=== PATIENT | female | born 1970 | race Hispanic/Latino ===

== ENCOUNTER 2023-05-05 00:06 | Inpatient (IN) | payer SELFPAY ==
--- OUTSIDE RECORDS SUMMARY | 2023-05-05 00:48 | XMS REPORT | Continuity of Care Document ---
:[address] [facility] t Address [address] [place] [address] Care Team Providers Name Role Phone Sima Ramos Primary Care Physician SCOTT RUSSELL Attending Clinician Unavailable SCOTT RUSSELL Attending Clinician Unavailable KALINA BROOKS Attending Clinician Unavailable SYSTEM, PROVIDER NOT IN Attending Clinician Unavailable DOM BATES Attending Clinician Unavailable SIMA LLOYD Attending Clinician Unavailable TRACY GRIJALVA Attending Clinician Unavailable JESSICA GRUBER Attending Clinician Unavailable Terence Esteves MD Attending Clinician LOPEZ JENSEN Attending Clinician Unavailable Sima Ramos Attending Clinician Lab, Ang - Db Attending Clinician Unavailable SANDRA DAVE Attending Clinician Unavailable Sandra Dave MD Attending Clinician ARSEN MEDEIROS Attending Clinician Unavailable Dom Bates MD Attending Clinician MARK GUZMAN Attending Clinician Unavailable Tracy Grijalva MD Attending Clinician Doctor Unassigned, [place] Attending Clinician Unavailable Mark Guzman MD Attending Clinician Maggi Head MD Attending Clinician MAGGI HEAD Attending Clinician Unavailable Arsen Medeiros PA-C Attending Clinician Ruy JARQUIN, Benny Attending Clinician KENDRA HERNANDEZ Attending Clinician Unavailable Abdulkadir SINGER BACK TENDER, Kendra Attending Clinician NOEL KRISHNAMURTHY Attending Clinician Unavailable Noel Krishnamurthy MD Attending Clinician Vadim CATALAN, Brandy Pulido Attending Clinician Unavailable Josette CATALAN, Genevieve Harmon Attending Clinician Unavailable OGUNLANA, MARIAN A Attending Clinician Unavailable Magnsu DAWN, Cecile Austin Attending Clinician Dennis JARQUIN, Ayala Attending Clinician ART GARCIA Attending Clinician Unavailable Tim JARQUIN, Maggie Farrell Attending Clinician ELINA SORENSEN Attending Clinician Unavailable Edu LEALP, Elina Tilley Attending Clinician , Adc Lab Attending Clinician Unavailable Art Garcia MD Attending Clinician LOGAN WILKINS Attending Clinician Unavailable Jill Marroquin Attending Clinician JILL BARRETT Attending Clinician Unavailable DEMARCUS BEAUCHAMP Attending Clinician Unavailable DUDLEY WADDELL Attending Clinician Unavailable Kavita JARQUIN, Dudley Attending Clinician Bhavana JARQUIN, Blaise Attending Clinician Aminah JARQUIN PhD, Demetris Attending Clinician Po, Adc Lab Main Attending Clinician Unavailable BENNY REDDING Attending Clinician Unavailable Anna DPAkash, Marian A Attending Clinician [phone] ELY SAXENA Attending Clinician Unavailable Hemanth JARQUIN, Ely Attending Clinician KRISSY GRIFFIN Attending Clinician Unavailable Krissy Griffin DO Attending Clinician Yasmani JARQUIN, Jessica Attending Clinician MARYAM FAULKNER Attending Clinician Unavailable PASCALE DE LA ROSA Attending Clinician Unavailable Visit, [facility] Dermatology Nurse Attending Clinician Unavailable Pascale De La Rosa MD Attending Clinician Oni JARQUIN, aTvo Attending Clinician TAVO BUNN Attending Clinician Unavailable Scott Russell MD Attending Clinician 1, Jania [employer] Attending Clinician Unavailable Vinicio GIRALDO, Mary Harmon Attending Clinician MARY GONZALEZ Attending Clinician Unavailable s-Lab Attending Clinician Unavailable RUSSELL PAEZ Attending Clinician Unavailable Mendoza CATALAN, Katie Bustos Attending Clinician Unavailable [facility]-Lab Attending Clinician Unavailable Lucie JUAREZ, Maryam Attending Clinician Ashwin Rowe DO Attending Clinician Kalina Brooks MD Att[facility]ician [facility] Attending Clinician Unavailable Sofiya Horner RN Attending Clinician Unavailable Amparo Emery MD Attending Clinician Hdr, correction Rad Oncology Attending Clinician Unavailable 1, correction Rad Oncology Linac Attending Clinician Unavailable 4, [facility] Infusion Chair Attending Clinician Unavailable 2, [facility] Infusion Chair Attending Clinician Unavailable 3, [facility] Infusion Chair Attending Clinician Unavailable 6, [facility] Infusion Chair Attending Clinician Unavailable Sameer Winter MD Attending Clinician ANDRIA LINARES Attending Clinician Unavailable Andria Ma Attending Clinician Graham Carter MD Attending Clinician Nurse, [facility] Infusion Attending Clinician Unavailable Patrick Medrano MD Attending Clinician Physics, correction Rad Onc Attending Clinician Unavailable Pgy2 Attending Clinician Unavailable Sylwia Nolasco MD Attending Clinician SYLWIA NOLASCO Attending Clinician Unavailable Stephanie Yousif Attending Clinician Toni Rouse MD Attending Clinician TONI ROUSE Attending Clinician Unavailable Trimester, [facility]-Rmchp Res-1st Attending Clinician Unavailable Renu Rollins MD Attending Clinician [phone] [facility] Resident Attending Clinician Unavailable Kyle MD, Lissa Attending Clinician LISSA KYLE Attending Clinician Unavailable KOBI FRENCH Attending Clinician Unavailable Kimberly Billingsley DO Attending Clinician JAD TOMPKINS Attending Clinician Unavailable Jad Hylton Attending Clinician Cydney Martinez NP Attending Clinician SCOTT RUSSELL Admitting Clinician Unavailable KALINA BROOKS Admitting Clinician Unavailable TRACY GRIJALVA Admitting Clinician Unavailable Tracy Grijalva MD Admitting Clinician SANDRA DAVE Admitting Clinician Unavailable AYALA COLLINS Admitting Clinician Unavailable Ayala Collins MD Admitting Clinician ELINA SORENSEN Admitting Clinician Unavailable DEMARCUS BEAUCHAMP Admitting Clinician Unavailable DUDLEY WADDELL Admitting Clinician Unavailable Dudley Waddell MD Admitting Clinician MARIAN CASTILLO Admitting Clinician Unavailable ART BARRY Admitting Clinician Unavailable ELY SAXENA Admitting Clinician Unavailable [place] Saxena MD Admitting Clinician JESSICA GRUBER Admitting Clinician Unavailable ARSEN MEDEIROS Admitting Clinician Unavailable Scott Russell MD Admitting Clinician Kalina Brooks MD Admitting Clinician Sylwia Nolasco MD Admitting Clinician Payers Payer Name Policy Type Policy Number Effective Date Expiration Date [facility] [id number] 2021 CHOICE 00:00:00 MEDICAID PENDING PENDING 2021 00:00:[address] [facility] CASEBOOK [id number] 2021 2021 00:00:00 00:00:00 Problems Condition Condition Condition Status Onset Resolution Last Treating Co mments Source Name Details Category Date Date Treatment Clinician Date Necrotizin Necrotizin Disease Active Overview : Univers g g 4-03 Formattin ity of fasciitis fasciitis 00:00: [place] of this [place] 00 note Medical might be Branch different from the original. Added automatic ally from request for surgery [id number] Dehiscence Dehiscence Disease Active U nivers of of 2-15 [place] of [place] 00 Medical subsequent subsequent Br anch encounter encounter Venous Venous Disease Active Univers stasis stasis 1-10 it[place] of dermatitis [place]itis [place] of both of both 00 Medical lower lower Branch extremitie extremitie s s Wound Wound Disease Active Univers infection infection 1-10 ity of 00:00: [place] [facility] Surgical Surgical Disease Active Unive rs wound wound 1-10 ity of breakdown[place], [place] initial initial 00 Medical encounter encounter Bran ch Edema of Edema of Disease Active Unive rs both lower both lower 1-10 it y of legs legs 00:00: [place] [facility] Ganglion Ganglion Disease Active 2021-08 Overview: Un gwendolyn cyst cyst 1-17 Formattin ity of 00:00: g of this [place] 00 note Medical might be Branch different from the original. Added automatic ally from request for surgery [id number] Functional Functional Disease Active 2021-08 U nivers diarrhea diarrhea 1-11 ity of 00:00: [place] [facility] Radiation Radiation Disease Active 2021-08 Uni vers proctitis proctitis 1-11 ity of 00:00: [place] [facility] Syncope, Syncope, Disease Active 2020-08 Unive rs vasovagal vasovagal 0-14 ity of 00:00: [place] [facility] History of History of Disease Active U nivers claustroph claustroph 9-30 it y of obia obia 00:00: [place] [facility] Multiple Multiple Disease Active Unive rs subsegment subsegment 7-14 it y of al al 00:00: [place] pulmonary pulmonary 00 Medi kia emboli emboli Branch without without acute cor acute cor pulmonale pulmonale Refusal of Refusal of Disease Active U nivers blood blood 7-02 ity of transfusio transfusio 00:[place] ns as ns as 00 Medical patient is patient is Br anch [employer] Witness Thyroid Thyroid Disease Active Univers nodule nodule 02-23 ity of 00:00: [place] 00 Medical Branch Physical Physical Disease Active Unive rs deconditio deconditio 02-23 it y of delisa delisa 00:00: [place] [facility] 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 Active Uni vers neoplastic neoplastic 02-23 it y of disease disease 00:00: [place] [facility] DNR (do DNR (do Disease Active Univers not not 02-23 ity of resuscitat resuscitat 00:[place] e) e) 00 Medical discussion discussion Br anch Morbid Morbid Disease Active Univers obesity obesity 02-20 ity of with body with body 00:[place] mass index mass index 00 Me dical of of Branch 40.0-49.9 40.0-49.9 Type 2 Type 2 Disease Active Univers diabetes diabetes 02-19 ity of mellitus mellitus 00:00: [place] without without 00 Medical complicati complicati Br anch on, on, without without long-term long-term current current use of use of insulin insulin Endometria Endometria Disease Active Overview : Univers l cancer l cancer 02-19 Formattin ity of 00:00: g of this 00 note Medical might be Branch different from the original. 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 Iron Iron Disease Active Univers deficiency deficiency 02-19 it y of anemia due anemia due 00:00: [place] to chronic to chronic 00 Me dical blood loss blood loss Br anch Obesity Obesity Disease Active Univers (BMI (BMI 6-24 ity of 30-39.9) 30-39.9) 00:00: [place] 00 Medical Branch Allergies, Adverse Reactions, Alerts Allergy Allergy Status Severity Reaction(s) Onset Inactive Treating Comm ents Source Name Type Date Date Clinician ADHESIVE DRUG Active Other-Cmnt Univ ers TAPE-DARCY 8-25 ity of ICONES 00:00: [place] [id number] Medical Branch Adhesive Propensi Active Other - See Skin U nivers Tape-Darcy ty to comments 8-25 peels ity of icones adverse 00:00: with [place] reaction 00 plastic Medical s tape Branch Social History Social Habit Start Date Stop Date Quantity Comments Source Gender identity [facility] [place] [facility] Sexual orientation [facility] [place] [facility] History SDOH University o f Alcohol Std Drinks [place] [facility] History SDOH University o f Alcohol Binge [place] [facility] History SDOH Social Unive rsity of Connections Get [place] Med ical Together Branch History SDOH Social Unive rsity of Connections Restorationism [place] [facility] History SDOH Social Unive rsity of Connections [place] [facility] Membership Branch History SDOH Social Unive rsity of Connections [place] [facility] Meetings Branch Alcohol intake 2023-04-05 2023-04-05 Lifetime University of 00:00:00 00:00:00 non-drinker [place] [facility] (finding) Branch History of Social 2023-03-02 2023-03-02 Univers ity of function 00:00:00 00:00:00 [place] [facility] Exposure to 2023-01-10 2023-01-20 Not sure University of SARS-CoV-2 (event) 00:00:00 12:53:00 [place] [facility] History SDOH 2022-11-30 2022-11-30 1 University o f Alcohol Frequency 00:00:00 00:00:00 [place] M edical Branch History SDOH Social 2022-11-30 2022-11-30 5 Unive rsity of Connections Phone 00:00:00 00:00:00 [place] M edical Branch History SDOH Social 2022-11-30 2022-11-30 7 Unive rsity of Connections Living 00:00:00 00:00:00 [place] [facility] History SDOH 2022-11-30 2022-11-30 0 University o f Physical Activity 00:00:00 00:00:00 [place] M edical DPW Branch History SDOH 2022-11-30 2022-11-30 0 University o f Physical Activity 00:00:00 00:00:00 [place] M edical MPS Branch History SDOH 2022-11-30 2022-11-30 4 University o f Financial 00:00:00 00:00:00 [place] [facility] History SDOH Food 2022-11-30 2022-11-30 1 Univers ity of Worry 00:00:00 00:00:00 [place] [facility] History SDOH Food 2022-11-30 2022-11-30 1 Univers ity of Scarcity 00:00:00 00:00:00 [place] [facility] History SDOH 2022-11-30 2022-11-30 2 University o f Transport Med 00:00:00 00:00:00 [place] [facility] al [facility] History SDOH 2022-11-30 2022-11-30 2 University o f Transport Non-Med 00:00:00 00:00:00 [place] M edical [facility] Tobacco use and 2021-02-19 2021-02-19 Smokeless Universit y of exposure 00:00:00 00:00:00 tobacco non-user [facility] dical [place] Sex [birth year] Universit y of 00:00:00 00:00:00 [facility] Smoking Status Start Date Stop Date Source Never smoked tobacco [facility] Medications Ordered Filled Start Stop Current Ordering Indication Dosage Frequency Signature Comments Components Source Medication Medication Date Date Medication? Clinician (SIG) Name Name CHLORTHALID Yes [id number] 25mg TAKE 1 Univers ONE 25 mg 8-25 TABLET BY ity o f tablet 00:00: MOUTH IN [place] 00 THE Medical MORNING Branch dulaglutide Yes [id number] .75mg inject 1 Univers (TRULICITY) 8-10 Pen under ity of 0.75 mg/0.5 00:00: the skin [place] mL PnIj 00 weekly. Medical Branch dulaglutide Yes [id number] .75mg inject 1 Univers (TRULICITY) 8-10 Pen under ity of 0.75 mg/0.5 00:00: the skin [place] mL PnIj 00 weekly. Medical Branch insulin Yes [id number] 23U inject 23 Univers glargine 8-08 Units ity of 100 unit/mL 00:00: under the [place] injection 00 skin in Medical the Branch morning. insulin Yes [id number] 5U inject 5 U nivers lispro, 8-08 Units ity of human, 100 00:00: under the [place] unit/mL 00 skin in Medical injection the Branch morning and 5 Units at noon and 5 Units in the evening. inject with meals. metFORMIN Yes [id number] 1000mg Take 1 Univers 1,000 mg 8-08 tablet by ity of tablet 00:00: mouth in [place] the morning. [place] insulin 2022-0 Yes [id number] 23U inject 23 Univers glargine 8-08 Units ity of 100 unit/mL 00:00: under the [place] injection 00 skin in [facility] morning. insulin 2022-0 Yes [id number] 5U inject 5 U nivers lispro, 8-08 Units ity of human, 100 00:00: under the [place] unit/mL 00 skin in Medical injection the [place] morning and 5 Units at noon and 5 Units in the evening. inject with meals. metFORMIN 2022-0 Yes [id number] 1000mg Take 1 Univers 1,000 mg 8-08 tablet by ity of tablet 00:00: mouth in [place] the morning. [place] insulin 2022-0 Yes [id number] 23U inject 23 Univers glargine 8-08 Units ity of 100 unit/mL 00:00: under the [place] injection 00 skin in [facility] morning. insulin 2022-0 Yes [id number] 5U inject 5 U nivers lispro, 8-08 Units ity of human, 100 00:00: under the [place] unit/mL [address] [facility] the [place] morning and 5 Units at noon and 5 Units in the evening. inject with meals. metFORMIN 2022-0 Yes [id number] 1000mg Take 1 Univers 1,000 mg 8-08 tablet by ity of tablet 00:00: mouth in [place] the morning. [place] insulin 2022-0 Yes [id number] 23U inject 23 Univers glargine 8-08 Units ity of 100 unit/mL 00:00: under the [place] injection 00 skin in [facility] morning. insulin 2022-0 Yes [id number] 5U inject 5 U nivers lispro, 8-08 Units ity of human, 100 00:00: under the [place] unit/mL [address] [facility] the [place] morning and 5 Units at noon and 5 Units in the evening. inject with meals. metFORMIN 2022-0 Yes [id number] 1000mg Take 1 Univers 1,000 mg 8-08 tablet by ity of tablet 00:00: mouth in [place] the morning. Branch insulin 2022-0 Yes [id number] 23U inject 23 Univers glargine 8-08 Units ity of 100 unit/mL 00:00: under the [place] injection 00 skin in Medical the [place] morning. insulin 2022-0 Yes [id number] 5U inject 5 U nivers lispro, 8-08 Units ity of human, 100 00:00: under the [place] unit/mL 00 skin in Medical injection the [place] morning and 5 Units at noon and 5 Units in the evening. inject with meals. metFORMIN 2022-0 Yes [id number] 1000mg Take 1 Univers 1,000 mg 8-08 tablet by ity of tablet 00:00: mouth in [place] the morning. Branch insulin 2022-0 Yes [id number] 23U inject 23 Univers glargine 8-08 Units ity of 100 unit/mL 00:00: under the [place] injection 00 skin in [facility] the [place] morning. insulin 2022-0 Yes [id number] 5U inject 5 U nivers lispro, 8-08 Units ity of human, 100 00:00: under the [place] unit/mL 00 skin in Medical injection the [place] morning and 5 Units at noon and 5 Units in the evening. inject with meals. metFORMIN 2022-0 Yes [id number] 1000mg Take 1 Univers 1,000 mg 8-08 tablet by ity of tablet 00:00: mouth in [place] the morning. [place] insulin 2022-0 Yes [id number] 23U inject 23 Univers glargine 8-08 Units ity of 100 unit/mL 00:00: under the [place] injection 00 skin in [facility] morning. insulin 2022-0 Yes [id number] 5U inject 5 U nivers lispro, 8-08 Units ity of human, 100 00:00: under the [place] unit/mL 00 skin in Medical injection the [place] morning and 5 Units at noon and 5 Units in the evening. inject with meals. metFORMIN 2022-0 Yes [id number] 1000mg Take 1 Univers 1,000 mg 8-08 tablet by ity of tablet 00:00: mouth in [place] 00 the [facility] morning. [place] insulin 2022-0 Yes [id number] 23U inject 23 Univers glargine 8-08 Units ity of 100 unit/mL 00:00: under the [place] injection 00 skin in Medical the [place] morning. insulin Yes [id number] 5U inject 5 U nivers lispro, 8-08 Units ity of human, 100 00:00: under the [place] unit/mL 00 skin in Medical injection the [place] morning and 5 Units at noon and 5 Units in the evening. inject with meals. metFORMIN 2022- Yes [id number] 1000mg Take 1 Univers 1,000 mg 8-08 tablet by ity of tablet 00:00: mouth in [place] 00 the Medical morning. Branch cholecalcif Yes 1{capsu Take 1 U nivers gayle, 7-27 le} capsule by ity of vitamin D3, 13:52: mouth [place] (VITAMIN 57 daily. Medical D3) 100 mcg Branch (4,000 unit) Cap fish Yes 2{capsu Take 2 Univers oil/borage/ 7-27 le} capsules ity of flax/om3,6, 13:52: by mouth [place] 9 1 (OMEGA 57 daily. Medical 3--9 ORAL) Branch cholecalcif Yes 1{capsu Take 1 U nivers gayle, 7-27 le} capsule by ity of vitamin D3, 13:52: mouth [place] (VITAMIN 57 daily. Medical D3) 100 mcg Branch (4,000 unit) Cap fish 0 Yes 2{capsu Take 2 Univers oil/borage/ 7-27 le} capsules ity of flax/om3,6, 13:52: by mouth [place] 9 1 (OMEGA 57 daily. Medical 3--9 ORAL) Branch cholecalcif Yes 1{capsu Take 1 U nivers gayle, 7-27 le} capsule by ity of vitamin D3, 13:52: mouth [place] (VITAMIN 57 daily. Medical D3) 100 mcg Branch (4,000 unit) Cap fish 0 Yes 2{capsu Take 2 Univers oil/borage/ 7-27 le} capsules ity of flax/om3,6, 13:52: by mouth [place] 9 1 (OMEGA 57 daily. Medical 3-6-9 ORAL) Branch cholecalcif 0 Yes 1{capsu Take 1 U nivers gayle, 7-27 le} capsule by ity of vitamin D3, 13:52: mouth [place] (VITAMIN 57 daily. Medical D3) 100 mcg Branch (4,000 unit) Cap fish 0 Yes 2{capsu Take 2 Univers oil/borage/ 7-27 le} capsules ity of flax/om3,6, 13:52: by mouth [place] 9 1 (OMEGA 57 daily. Medical 3-6-9 ORAL) Branch cholecalcif 0 Yes 1{capsu Take 1 U nivers gayle, 7-27 le} capsule by ity of vitamin D3, 13:52: mouth [place] (VITAMIN 57 daily. Medical D3) 100 mcg Branch (4,000 unit) Cap fish 0 Yes 2{capsu Take 2 Univers oil/borage/ 7-27 le} capsules ity of flax/om3,6, 13:52: by mouth [place] 9 1 (OMEGA 57 daily. Medical 3-6-9 ORAL) Branch cholecalcif 0 Yes 1{capsu Take 1 U nivers gayle, 7-27 le} capsule by ity of vitamin D3, 13:52: mouth [place] (VITAMIN 57 daily. Medical D3) 100 mcg Branch (4,000 unit) Cap fish 0 Yes 2{capsu Take 2 Univers oil/borage/ 7-27 le} capsules ity of flax/om3,6, 13:52: by mouth [place] 9 1 (OMEGA 57 daily. Medical 3-6-9 ORAL) Branch cholecalcif 0 Yes 1{capsu Take 1 U nivers gayle, 7-27 le} capsule by ity of vitamin D3, 13:52: mouth [place] (VITAMIN 57 daily. Medical D3) 100 mcg Branch (4,000 unit) Cap fish 0 Yes 2{capsu Take 2 Univers oil/borage/ 7-27 le} capsules ity of flax/om3,6, 13:52: by mouth [place] 9 1 (OMEGA 57 daily. Medical 3-6-9 ORAL) Branch cholecalcif 0 Yes 1{capsu Take 1 U nivers gayle, 7-27 le} capsule by ity of vitamin D3, 13:52: mouth [place] (VITAMIN 57 daily. Medical D3) 100 mcg Branch (4,000 unit) Cap fish 2023-0 Yes 2{capsu Take 2 Univers oil/borage/ 27 le} capsules ity of flax/om3,6, 13:52: by mouth [place] 9 1 (OMEGA 57 daily. Medical 3-9 ORAL) Branch cholecalcif Yes 1{capsu Take 1 U nivers gayle, 03-24 le} capsule by ity of vitamin D3, 13:52: mouth [place] (VITAMIN 57 daily. Medical D3) 100 mcg Branch (4,000 unit) Cap fish Yes 2{capsu Take 2 Univers oil/borage/ 03-24 le} capsules ity of flax/om3,6, 13:52: by mouth [place] 9 1 (OMEGA 57 daily. Medical 11-01- ORAL) Branch doxazosin Yes [id number] 1mg Take 1 Univers mg tablet 7-06 tablet by ity o f 00:00: mouth at [place] 00 bedtime. Medical Branch semaglutide Yes [id number] .5mg inject 0.5 Univers (OZEMPIC) 7-06 mg under ity of 0.25 mg or 00:00: the skin [place] as 0.5 mg(2 00 weekly. Medical mg/1.5 mL) Branch PnIj doxazosin 1 Yes [id number] 1mg Take 1 Univers mg tablet 7-06 tablet by ity o f 00:00: mouth at [place] [address] bedtime. Medical Branch semaglutide Yes [id number] .5mg inject 0.5 Univers (OZEMPIC) 7-06 mg under ity of 0.25 mg or 00:00: the skin [place] as 0.5 mg(2 00 weekly. Medical mg/1.5 mL) Branch PnIj doxazosin 1 Yes [id number] 1mg Take 1 Univers mg tablet 7-06 tablet by ity o f 00:00: mouth at [place] 00 bedtime. Medical Branch semaglutide Yes [id number] .5mg inject 0.5 Univers (OZEMPIC) 7-06 mg under ity of 0.25 mg or 00:00: the skin [place] as 0.5 mg(2 00 weekly. Medical mg/1.5 mL) Branch PnIj doxazosin 1 Yes [id number] 1mg Take 1 Univers mg tablet 7-06 tablet by ity o f 00:00: mouth at [place] 00 bedtime. Medical Branch semaglutide Yes [id number] .5mg inject 0.5 Univers (OZEMPIC) 7-06 mg under ity of 0.25 mg or 00:00: the skin [place] as 0.5 mg(2 00 weekly. Medical mg/1.5 mL) Branch PnIj doxazosin 1 Yes [id number] 1mg Take 1 Univers mg tablet 7-06 tablet by ity o f 00:00: mouth at [place] 00 bedtime. Medical Branch semaglutide Yes [id number] .5mg inject 0.5 Univers (OZEMPIC) 7-06 mg under ity of 0.25 mg or 00:00: the skin [place] as 0.5 mg(2 00 weekly. Medical mg/1.5 mL) Branch MakiIj doxazosin 1 Yes [id number] 1mg Take 1 Univers mg tablet 7-06 tablet by ity o f 00:00: mouth at [place] 00 bedtime. Medical Branch semaglutide Yes [id number] .5mg inject 0.5 Univers (OZEMPIC) 7-06 mg under ity of 0.25 mg or 00:00: the skin [place] as 0.5 mg(2 00 weekly. Medical mg/1.5 mL) Branch MakiIj doxazosin 1 Yes [id number] 1mg Take 1 Univers mg tablet 7-06 tablet by ity o f 00:00: mouth at [place] 00 bedtime. Medical Branch semaglutide Yes [id number] .5mg inject 0.5 Univers (OZEMPIC) 7-06 mg under ity of 0.25 mg or 00:00: the skin [place] as 0.5 mg(2 00 weekly. Medical mg/1.5 mL) Branch PnIj doxazosin 1 Yes [id number] 1mg Take 1 Univers mg tablet 7-06 tablet by ity o f 00:00: mouth at [place] 00 bedtime. Medical Branch semaglutide Yes [id number] .5mg inject 0.5 Univers (OZEMPIC) 7-06 mg under ity of 0.25 mg or 00:00: the skin [place] as 0.5 mg(2 00 weekly. Medical mg/1.5 mL) Branch PnIj doxazosin 1 Yes [id number] 1mg Take 1 Univers mg tablet 7-06 tablet by ity o f 00:00: mouth at [place] 00 bedtime. Medical Branch doxazosin 1 2022-0 Yes [id number] 1mg Take 1 Univers mg tablet 7-06 tablet by ity o f 00:00: mouth at [place] 00 bedtime. Medical Branch doxazosin 1 2022-0 Yes [id number] 1mg Take 1 Univers mg tablet 7-06 tablet by ity o f 00:00: mouth at [place] 00 bedtime. Medical Branch doxazosin 1 Yes [id number] 1mg Take 1 Univers mg tablet 7-06 tablet by ity o f 00:00: mouth at [place] [address] bedtime. Medical Branch doxazosin 1 Yes [id number] 1mg Take 1 [facility] mg tablet 7-06 tablet by ity o f 00:00: mouth at [place] [address] bedtime. Medical Branch doxazosin 1 Yes [id number] 1mg Take 1 [facility] mg tablet 7-06 tablet by ity o f 00:00: mouth at [place] [address] bedtime. Medical Branch doxazosin 1 2022-0 Yes [id number] 1mg Take 1 [facility] mg tablet 7-06 tablet by ity o f 00:00: mouth at [place] [address] bedtime. Medical Branch doxazosin 1 Yes [id number] 1mg Take 1 [facility] mg tablet 7-06 tablet by ity o f 00:00: mouth at [place] [address] bedtime. Medical Branch semaglutide 2022- No [id number] .5mg inject 0.5 [facility] (OZEMPIC) 7- 08-08 mg under ity o f 0.25 mg or 00:00: 00:00 the skin [place] 0.5 mg(2 00 :00 weekly. Medical mg/1.5 mL) Branch PnIj semaglutide 2022- No [id number] .5mg inject 0.5 [facility] (OZEMPIC) 7- 08-08 mg under ity o f 0.25 mg or 00:00: 00:00 the skin [place] 0.5 mg(2 00 :00 weekly. Medical mg/1.5 mL) Branch PnIj NaCl 0.9% 2022- No PRN, [facility] (NS) 03-02 Starting ity of injection 17:55: 18:37 on Tue [place] 00 :30 03/02/23 at Medical 1255, Branch Until Tue03/02/23 at 1337, Routine, Intra-op simethicone 2022- No PRN, Unive rs (GAS RELIEF 03-02 Starting ity of (SIMETHICON 16:38: 18:37 on Tue [place] as E)) 40 00 :30 03/02/23 at Medical mg/0.6 mL 1138, Branch drops Until Tue03/02/23 at 1337, Routine, Intra-op lactated 2022- No 1000mL at 42 [facility] rs ringers IV 03-02 07-05 mL/hr, ity of infusion 16:30: 16:30 1,000 mL, [place] as 1,000 mL 00 :00 IV Medical Infusion, Branch ONCE, 1 dose, On Tue03/02/23 at 1130, Routine, DSU Pre-op lactated 2022-0 2022- No 1000mL at 42 [facility] rs ringers IV 03-02 07-05 mL/hr, ity of infusion 16:30: 16:30 1,000 mL, [place] as 1,000 mL 00 :00 IV Medical Infusion, Branch ONCE, 1 dose, On Tue03/02/23 at 1130, Routine, DSU Pre-op cholecalcif Yes 1{capsu Take 1 U nivers gayle, 7-05 le} capsule by ity of vitamin D3, 16:29: mouth [place] (VITAMIN 48 daily. Medical D3) 100 mcg Branch (4,000 unit) Cap fish Yes 2{capsu Take 2 [facility] oil/borage/ 7-05 le} capsules ity of flax/om3,6, 16:29: by mouth [place] 9 1 (OMEGA 48 daily. Medical 3-6-9 ORAL) Branch cholecalcif Yes 1{capsu Take 1 U nivers gayle, 7-05 le} capsule by ity of vitamin D3, 16:29: mouth [place] (VITAMIN 48 daily. Medical D3) 100 mcg Branch (4,000 unit) Cap fish Yes 2{capsu Take 2 [facility] oil/borage/ 7-05 le} capsules ity of flax/om3,6, 16:29: by mouth [place] 9 1 (OMEGA 48 daily. Medical 3-6-9 ORAL) Branch cholecalcif Yes 1{capsu Take 1 U nivers gayle, 7-05 le} capsule by ity of vitamin D3, 16:29: mouth [place] (VITAMIN 48 daily. Medical D3) 100 mcg Branch (4,000 unit) Cap fish Yes 2{capsu Take 2 [facility] oil/borage/ 7-05 le} capsules ity of flax/om3,6, 16:29: by mouth [place] 9 1 (OMEGA 48 daily. Medical 3-6-9 ORAL) Branch cholecalcif Yes 1{capsu Take 1 U nivers gayle, 7-05 le} capsule by ity of vitamin D3, 16:29: mouth [place] (VITAMIN 48 daily. Medical D3) 100 mcg Branch (4,000 unit) Cap fish Yes 2{capsu Take 2 [facility] oil/borage/ 7-05 le} capsules ity of flax/om3,6, 16:29: by mouth [place] 9 1 (OMEGA 48 daily. Medical 3-6-9 ORAL) Branch cholecalcif Yes 1{capsu Take 1 U nivers gayle, 7-05 le} capsule by ity of vitamin D3, 16:29: mouth [place] (VITAMIN 48 daily. Medical D3) 100 mcg Branch (4,000 unit) Cap fish Yes 2{capsu Take 2 [facility] oil/borage/ 7-05 le} capsules ity of flax/om3,6, 16:29: by mouth [place] 9 1 (OMEGA 48 daily. Medical 3-6-9 ORAL) Branch cholecalcif 0 Yes 1{capsu Take 1 U nivers gayle, 7-05 le} capsule by ity of vitamin D3, 16:29: mouth [place] (VITAMIN 48 daily. Medical D3) 100 mcg Branch (4,000 unit) Cap fish 0 Yes 2{capsu Take 2 [facility] oil/borage/ 7-05 le} capsules ity of flax/om3,6, 16:29: by mouth [place] 9 1 (OMEGA 48 daily. Medical 3-6-9 ORAL) Branch cholecalcif 2022-0 Yes 1{capsu Take 1 U nivers gayle, 7-05 le} capsule by ity of vitamin D3, 16:29: mouth [place] (VITAMIN 48 daily. Medical D3) 100 mcg Branch (4,000 unit) Cap fish 2022-0 Yes 2{capsu Take 2 [facility] oil/borage/ 7-05 le} capsules ity of flax/om3,6, 16:29: by mouth [place] 9 1 (OMEGA 48 daily. Medical 3-6-9 ORAL) Branch cholecalcif 2022-0 Yes 1{capsu Take 1 U nivers gayle, 7-05 le} capsule by ity of vitamin D3, 16:29: mouth [place] (VITAMIN 48 daily. Medical D3) 100 mcg Branch (4,000 unit) Cap fish 2022-0 Yes 2{capsu Take 2 [facility] oil/borage/ 7-05 le} capsules ity of flax/om3,6, 16:29: by mouth [place] 9 1 (OMEGA 48 daily. Medical 3-6-9 ORAL) Branch cholecalcif 2022-0 Yes 1{capsu Take 1 U nivers gayle, 7-05 le} capsule by ity of vitamin D3, 16:29: mouth [place] (VITAMIN 48 daily. Medical D3) 100 mcg Branch (4,000 unit) Cap fish 2022-0 Yes 2{capsu Take 2 [facility] oil/borage/ 7-05 le} capsules ity of flax/om3,6, 16:29: by mouth [place] 9 1 (OMEGA 48 daily. Medical 3-6-9 ORAL) Branch cholecalcif 2022-0 Yes 1{capsu Take 1 U nivers gayle, 7-05 le} capsule by ity of vitamin D3, 16:29: mouth [place] (VITAMIN 48 daily. Medical D3) 100 mcg Branch (4,000 unit) Cap fish 2022-0 Yes 2{capsu Take 2 [facility] oil/borage/ 7-05 le} capsules ity of flax/om3,6, 16:29: by mouth [place] 9 1 (OMEGA 48 daily. Medical 3-6-9 ORAL) Branch cholecalcif 2022-0 Yes 1{capsu Take 1 U nivers gayle, 7-05 le} capsule by ity of vitamin D3, 16:29: mouth [place] (VITAMIN 48 daily. Medical D3) 100 mcg Branch (4,000 unit) Cap fish 2022-0 Yes 2{capsu Take 2 [facility] oil/borage/ 7-05 le} capsules ity of flax/om3,6, 16:29: by mouth [place] 9 1 (OMEGA 48 daily. Medical 3-6-9 ORAL) Branch cholecalcif 2022-0 Yes 1{capsu Take 1 U nivers gayle, 6-28 le} capsule by ity of vitamin D3, 12:52: mouth [place] (VITAMIN 40 daily. Medical D3) 100 mcg Branch (4,000 unit) Cap fish 2022-0 Yes 2{capsu Take 2 [facility] oil/borage/ 6-28 le} capsules ity of flax/om3,6, 12:52: by mouth [place] 9 1 (OMEGA 40 daily. Medical 3-9 ORAL) Branch nystatin 3-0 Yes [id number] Apply to U nivers 100,000 6-08 area(s) 2 ity of unit/gram 00:00: (two) [place] powder 00 times Medical daily. Branch nystatin 2023-0 Yes [id number] Apply to U nivers 100,000 6-08 area(s) 2 ity of unit/gram 00:00: (two) [place] powder 00 times Medical daily. Branch nystatin 2023-0 Yes [id number] Apply to U nivers 100,000 6-08 area(s) 2 ity of unit/gram 00:00: (two) [place] powder 00 times Medical daily. Branch nystatin 2023-0 Yes [id number] Apply to U nivers 100,000 6-08 area(s) 2 ity of unit/gram 00:00: (two) [place] powder 00 times Medical daily. Branch nystatin 2023-0 Yes [id number] Apply to U nivers 100,000 6-08 area(s) 2 ity of unit/gram 00:00: (two) [place] powder 00 times Medical daily. Branch nystatin 2023-0 Yes [id number] Apply to U nivers 100,000 6-08 area(s) 2 ity of unit/gram 00:00: (two) [place] powder 00 times Medical daily. Branch nystatin 2023-0 Yes [id number] Apply to U nivers 100,000 6-08 area(s) 2 ity of unit/gram 00:00: (two) [place] powder 00 times Medical daily. Branch nystatin 2023-0 Yes [id number] Apply to U nivers 100,000 6-08 area(s) 2 ity of unit/gram 00:00: (two) [place] powder 00 times Medical daily. Branch nystatin 2023-0 Yes [id number] Apply to U nivers 100,000 6-08 area(s) 2 ity of unit/gram 00:00: (two) [place] powder 00 times Medical daily. Branch nystatin 2023-0 Yes [id number] Apply to U nivers 100,000 6-08 area(s) 2 ity of unit/gram 00:00: (two) [place] powder 00 times Medical daily. Branch nystatin 2023-0 Yes [id number] Apply to U nivers 100,000 6-08 area(s) 2 ity of unit/gram 00:00: (two) [place] powder 00 times Medical daily. Branch nystatin 2023-0 Yes [id number] Apply to U nivers 100,000 6-08 area(s) 2 ity of unit/gram 00:00: (two) [place] powder 00 times Medical daily. Branch nystatin 2023-0 Yes [id number] Apply to U nivers 100,000 6-08 area(s) 2 ity of unit/gram 00:00: (two) [place] powder 00 times Medical daily. Branch nystatin 2023-0 Yes [id number] Apply to U nivers 100,000 6-08 area(s) 2 ity of unit/gram 00:00: (two) [place] powder 00 times Medical daily. Branch nystatin 2023-0 Yes [id number] Apply to U nivers 100,000 6-08 area(s) 2 ity of unit/gram 00:00: (two) [place] powder 00 times Medical daily. Branch nystatin 2023-0 Yes [id number] Apply to U nivers 100,000 6-08 area(s) 2 ity of unit/gram 00:00: (two) [place] powder 00 times Medical daily. Branch nystatin 2023-0 Yes [id number] Apply to U nivers 100,000 6-08 area(s) 2 ity of unit/gram 00:00: (two) [place] powder 00 times Medical daily. Branch nystatin 2023-0 Yes [id number] Apply to U nivers 100,000 6-08 area(s) 2 ity of unit/gram 00:00: (two) [place] powder 00 times Medical daily. Branch nystatin 2023-0 Yes [id number] Apply to U nivers 100,000 6-08 area(s) 2 ity of unit/gram 00:00: (two) [place] powder 00 times Medical daily. Branch nystatin 2023-0 Yes [id number] Apply to U nivers 100,000 6-08 area(s) 2 ity of unit/gram 00:00: (two) [place] powder 00 times Medical daily. Branch nystatin 2023-0 Yes [id number] Apply to U nivers 100,000 6-08 area(s) 2 ity of unit/gram 00:00: (two) [place] powder 00 times Medical daily. Branch nystatin 2023-0 Yes [id number] Apply to U nivers 100,000 6-08 area(s) 2 ity of unit/gram 00:00: (two) [place] powder 00 times Medical daily. Branch nystatin 2023-0 Yes [id number] Apply to U nivers 100,000 6-08 area(s) 2 ity of unit/gram 00:00: (two) [place] powder 00 times Medical daily. Branch nystatin 2023-0 Yes [id number] Apply to U nivers 100,000 6-08 area(s) 2 ity of unit/gram 00:00: (two) [place] powder 00 times Medical daily. Branch nystatin 2023-0 Yes [id number] Apply to U nivers 100,000 6-08 area(s) 2 ity of unit/gram 00:00: (two) [place] powder 00 times Medical daily. Branch bromphenira 2023-0 Yes [id number] 5mL Take 5 mL [facility] mine-pseudo 5-31 by mouth 4 it y of ephedrine-D 00:00: (four) [place]ust[place] (BROMFED 00 times Medical DM) 2-30-10 daily as Bran ch mg/5 mL needed for syrup Congestion /Allergies or Cough. bromphenira 2023-0 Yes [id number] 5mL Take 5 mL [facility] mine-pseudo 5-31 by mouth 4 it y of ephedrine-D 00:00: (four) [place] (BROMFED 00 times Medical DM) 2-30-10 daily as Bran ch mg/5 mL needed for syrup Congestion /Allergies or Cough. bromphenira 2023-0 Yes [id number] 5mL Take 5 mL [facility] mine-pseudo 5-31 by mouth 4 it y of ephedrine-D 00:00: (four) [place] M (BROMFED 00 times Medical DM) 2-30-10 daily as Bran ch mg/5 mL needed for syrup Congestion /Allergies or Cough. bromphenira 3-0 Yes [id number] 5mL Take 5 mL [facility] mine-pseudo 5-31 by mouth 4 it y of ephedrine-D 00:00: (four) [place] M (BROMFED 00 times Medical DM) 2-30-10 daily as Bran ch mg/5 mL needed for syrup Congestion /Allergies or Cough. bromphenira 3-0 Yes [id number] 5mL Take 5 mL [facility] mine-pseudo 5-31 by mouth 4 it y of ephedrine-D 00:00: (four) [place] (BROMFED 00 times Medical DM) 2-30-10 daily as Bran ch mg/5 mL needed for syrup Congestion /Allergies or Cough. bromphenira 2023-0 Yes [id number] 5mL Take 5 mL [facility] mine-pseudo 5-31 by mouth 4 it y of ephedrine-D 00:00: (four) [place] (BROMFED 00 times Medical DM) 2-30-10 daily as Bran ch mg/5 mL needed for syrup Congestion /Allergies or Cough. bromphenira 2023-0 Yes [id number] 5mL Take 5 mL [facility] mine-pseudo 5-31 by mouth 4 it y of ephedrine-D 00:00: (four) [place] M (BROMFED 00 times Medical DM) 2-30-10 daily as Bran ch mg/5 mL needed for syrup Congestion /Allergies or Cough. bromphenira 2023-0 Yes [id number] 5mL Take 5 mL [facility] mine-pseudo 5-31 by mouth 4 it y of ephedrine-D 00:00: (four) [place] M (BROMFED 00 times Medical DM) 2-30-10 daily as Bran ch mg/5 mL needed for syrup Congestion /Allergies or Cough. bromphenira 3-0 Yes [id number] 5mL Take 5 mL [facility] mine-pseudo 5-31 by mouth 4 it y of ephedrine-D 00:00: (four) [place] M (BROMFED 00 times Medical DM) 2-30-10 daily as Bran ch mg/5 mL needed for syrup Congestion /Allergies or Cough. bromphenira 2023-0 Yes [id number] 5mL Take 5 mL [facility] mine-pseudo 5-31 by mouth 4 it y of ephedrine-D 00:00: (four) [place] M (BROMFED 00 times Medical DM) 2-30-10 daily as Bran ch mg/5 mL needed for syrup Congestion /Allergies or Cough. bromphenira 3-0 Yes [id number] 5mL Take 5 mL [facility] mine-pseudo 5-31 by mouth 4 it y of ephedrine-D 00:00: (four) [place] M (BROMFED 00 times Medical DM) 2-30-10 daily as Bran ch mg/5 mL needed for syrup Congestion /Allergies or Cough. bromphenira 3-0 Yes [id number] 5mL Take 5 mL [facility] mine-pseudo 5-31 by mouth 4 it y of ephedrine-D 00:00: (four) [place] M (BROMFED 00 times Medical DM) 2-30-10 daily as Bran ch mg/5 mL needed for syrup Congestion /Allergies or Cough. bromphenira 2023-0 Yes [id number] 5mL Take 5 mL [facility] mine-pseudo 5-31 by mouth 4 it y of ephedrine-D 00:00: (four) [place] M (BROMFED 00 times Medical DM) 2-30-10 daily as Bran ch mg/5 mL needed for syrup Congestion /Allergies or Cough. bromphenira 2023-0 Yes [id number] 5mL Take 5 mL [facility] mine-pseudo 5-31 by mouth 4 it y of ephedrine-D 00:00: (four) [place] M (BROMFED 00 times Medical DM) 2-30-10 daily as Bran ch mg/5 mL needed for syrup Congestion /Allergies or Cough. bromphenira 2023-0 Yes [id number] 5mL Take 5 mL [facility] mine-pseudo 5-31 by mouth 4 it y of ephedrine-D 00:00: (four) [place] M (BROMFED 00 times Medical DM) 2-30-10 daily as Bran ch mg/5 mL needed for syrup Congestion /Allergies or Cough. bromphenira 2023-0 Yes [id number] 5mL Take 5 mL [facility] mine-pseudo 5-31 by mouth 4 it y of ephedrine-D 00:00: (four) [place] M (BROMFED 00 times Medical DM) 2-30-10 daily as Bran ch mg/5 mL needed for syrup Congestion /Allergies or Cough. bromphenira 2023-0 Yes [id number] 5mL Take 5 mL [facility] mine-pseudo 5-31 by mouth 4 it y of ephedrine-D 00:00: (four) [place] (BROMFED 00 times Medical DM) 2-30-10 daily as Bran ch mg/5 mL needed for syrup Congestion /Allergies or Cough. bromphenira 2023-0 Yes [id number] 5mL Take 5 mL [facility] mine-pseudo 5-31 by mouth 4 it y of ephedrine-D 00:00: (four) [place] M (BROMFED 00 times Medical DM) 2-30-10 daily as Bran ch mg/5 mL needed for syrup Congestion /Allergies or Cough. bromphenira 2023-0 Yes [id number] 5mL Take 5 mL [facility] mine-pseudo 5-31 by mouth 4 it y of ephedrine-D 00:00: (four) [place] M (BROMFED 00 times Medical DM) 2-30-10 daily as Bran ch mg/5 mL needed for syrup Congestion /Allergies or Cough. bromphenira 2023-0 Yes [id number] 5mL Take 5 mL [facility] mine-pseudo 5-31 by mouth 4 it y of ephedrine-D 00:00: (four) [place] M (BROMFED 00 times Medical DM) 2-30-10 daily as Bran ch mg/5 mL needed for syrup Congestion /Allergies or Cough. bromphenira 2023-0 Yes [id number] 5mL Take 5 mL [facility] mine-pseudo 5-31 by mouth 4 it y of ephedrine-D 00:00: (four) [place] (BROMFED 00 times Medical DM) 2-30-10 daily as Bran ch mg/5 mL needed for syrup Congestion /Allergies or Cough. bromphenira 2023-0 Yes [id number] 5mL Take 5 mL [facility] mine-pseudo 5-31 by mouth 4 it y of ephedrine-D 00:00: (four) [place] (BROMFED 00 times Medical DM) 2-30-10 daily as Bran ch mg/5 mL needed for syrup Congestion /Allergies or Cough. bromphenira 2023-0 Yes [id number] 5mL Take 5 mL [facility] mine-pseudo 5-31 by mouth 4 it y of ephedrine-D 00:00: (four) [place] (BROMFED 00 times Medical DM) 2-30-10 daily as Bran ch mg/5 mL needed for syrup Congestion /Allergies or Cough. bromphenira 2023-0 Yes [id number] 5mL Take 5 mL [facility] mine-pseudo 5-31 by mouth 4 it y of ephedrine-D 00:00: (four) [place] (BROMFED 00 times Medical DM) 2-30-10 daily as Bran ch mg/5 mL needed for syrup Congestion /Allergies or Cough. bromphenira 2023-0 Yes [id number] 5mL Take 5 mL [facility] mine-pseudo 5-31 by mouth 4 it y of ephedrine-D 00:00: (four) [place] (BROMFED 00 times Medical DM) 2-30-10 daily as Bran ch mg/5 mL needed for syrup Congestion /Allergies or Cough. bromphenira 2023-0 Yes [id number] 5mL Take 5 mL [facility] mine-pseudo 5-31 by mouth 4 it y of ephedrine-D 00:00: (four) [place] (BROMFED 00 times Medical DM) 2-30-10 daily as Bran ch mg/5 mL needed for syrup Congestion /Allergies or Cough. semaglutide 2022-0 Yes [id number] .25mg inject [facility] (OZEMPIC) 5-18 0.25 mg ity of 0.25 mg or 00:00: under the [place] 0.5 mg(2 00 skin Medical mg/1.5 mL) weekly. Branch PnIj semaglutide 2022-0 Yes [id number] .25mg inject [facility] (OZEMPIC) 5-18 0.25 mg ity of 0.25 mg or 00:00: under the [place] 0.5 mg(2 00 skin Medical mg/1.5 mL) weekly. Branch PnIj semaglutide 2022-0 Yes [id number] .25mg inject [facility] (OZEMPIC) 5-18 0.25 mg ity of 0.25 mg or 00:00: under the [place] 0.5 mg(2 00 skin Medical mg/1.5 mL) weekly. Branch PnIj semaglutide 2022-0 Yes [id number] .25mg inject [facility] (OZEMPIC) 5-18 0.25 mg ity of 0.25 mg or 00:00: under the [place] 0.5 mg(2 00 skin Medical mg/1.5 mL) weekly. Branch PnIj semaglutide 2022-0 Yes [id number] .25mg inject [facility] (OZEMPIC) 5-18 0.25 mg ity of 0.25 mg or 00:00: under the [place] 0.5 mg(2 00 skin Medical mg/1.5 mL) weekly. Branch PnIj semaglutide 2022-0 Yes [id number] .25mg inject [facility] (OZEMPIC) 5-18 0.25 mg ity of 0.25 mg or 00:00: under the [place] 0.5 mg(2 00 skin Medical mg/1.5 mL) weekly. Branch PnIj semaglutide 2022-0 Yes [id number] .25mg inject [facility] (OZEMPIC) 5-18 0.25 mg ity of 0.25 mg or 00:00: under the [place] 0.5 mg(2 00 skin Medical mg/1.5 mL) weekly. Branch PnIj semaglutide 2022-0 Yes [id number] .25mg inject [facility] (OZEMPIC) 5-18 0.25 mg ity of 0.25 mg or 00:00: under the [place] 0.5 mg(2 00 skin Medical mg/1.5 mL) weekly. Branch PnIj semaglutide 2022-0 Yes [id number] .25mg inject [facility] (OZEMPIC) 5-18 0.25 mg ity of 0.25 mg or 00:00: under the [place] 0.5 mg(2 00 skin Medical mg/1.5 mL) weekly. Branch PnIj semaglutide 2022-0 Yes [id number] .25mg inject [facility] (OZEMPIC) 5-18 0.25 mg ity of 0.25 mg or 00:00: under the [place] 0.5 mg(2 00 skin Medical mg/1.5 mL) weekly. Branch PnIj semaglutide 2022-0 Yes [id number] .25mg inject [facility] (OZEMPIC) 5-18 0.25 mg ity of 0.25 mg or 00:00: under the [place] 0.5 mg(2 00 skin Medical mg/1.5 mL) weekly. Branch PnIj semaglutide 2022-0 Yes [id number] .25mg inject [facility] (OZEMPIC) 5-18 0.25 mg ity of 0.25 mg or 00:00: under the [place] 0.5 mg(2 00 skin Medical mg/1.5 mL) weekly. Branch PnIj semaglutide 2022-0 Yes [id number] .25mg inject [facility] (OZEMPIC) 5-18 0.25 mg ity of 0.25 mg or 00:00: under the [place] 0.5 mg(2 00 skin Medical mg/1.5 mL) weekly. Branch PnIj semaglutide 2022-0 Yes [id number] .25mg inject [facility] (OZEMPIC) 5-18 0.25 mg ity of 0.25 mg or 00:00: under the [place] 0.5 mg(2 00 skin Medical mg/1.5 mL) weekly. Branch PnIj semaglutide 2022-0 Yes [id number] .25mg inject [facility] (OZEMPIC) 5-18 0.25 mg ity of 0.25 mg or 00:00: under the [place] 0.5 mg(2 00 skin Medical mg/1.5 mL) weekly. Branch PnIj semaglutide 2022-0 2022- No [id number] .25mg inject [facility] (OZEMPIC) 5-18 07-06 0.25 mg ity of 0.25 mg or 00:00: 00:00 under the [place] 0.5 mg(2 00 :00 skin Medical mg/1.5 mL) weekly. Branch MakiIj semaglutide 2022- No [id number] .25mg inject [facility] (OZEMPIC) 5-18 07-06 0.25 mg ity of 0.25 mg or 00:00: 00:00 under the [place] 0.5 mg(2 00 :00 skin Medical mg/1.5 mL) weekly. Branch PnIj albuterol 2022- No [id number] 2{puff} Inhale 2 [facility] (VENTOLIN 5-18 06-18 Puffs ity of HFA) 90 00:00: 04:59 every 6 [place] mcg/actuati 00 :00 (six) Medical on inhaler hours as Branc h needed for Chest tightness for up to 30 days. albuterol 2022- No [id number] 2{puff} Inhale 2 [facility] (VENTOLIN 5-18 06-18 Puffs ity of HFA) 90 00:00: 04:59 every 6 [place] mcg/actuati 00 :00 (six) Medical on inhaler hours as Branc h needed for Chest tightness for up to 30 days. albuterol 2022- No [id number] 2{puff} Inhale 2 [facility] (VENTOLIN 5-18 06-18 Puffs ity of HFA) 90 00:00: 04:59 every 6 [place] mcg/actuati 00 :00 (six) Medical on inhaler hours as Branc h needed for Chest tightness for up to 30 days. albuterol 2022- No [id number] 2{puff} Inhale 2 [facility] (VENTOLIN 5-18 06-18 Puffs ity of HFA) 90 00:00: 04:59 every 6 [place] mcg/actuati 00 :00 (six) Medical on inhaler hours as Branc h needed for Chest tightness for up to 30 days. albuterol 2022- No [id number] 2{puff} Inhale 2 [facility] (VENTOLIN 5-18 06-18 Puffs ity of HFA) 90 00:00: 04:59 every 6 [place] mcg/actuati 00 :00 (six) Medical on inhaler hours as Branc h needed for Chest tightness for up to 30 days. albuterol 2022- No [id number] 2{puff} Inhale 2 [facility] (VENTOLIN 5-18 06-18 Puffs ity of HFA) 90 00:00: 04:59 every 6 [place] mcg/actuati 00 :00 (six) Medical on inhaler hours as Branc h needed for Chest tightness for up to 30 days. albuterol 2022- No [id number] 2{puff} Inhale 2 [facility] (VENTOLIN 5-18 06-18 Puffs ity of HFA) 90 00:00: 04:59 every 6 [place] mcg/actuati 00 :00 (six) Medical on inhaler hours as Branc h needed for Chest tightness for up to 30 days. albuterol 2022- No [id number] 2{puff} Inhale 2 [facility] (VENTOLIN 5-18 06-18 Puffs ity of HFA) 90 00:00: 04:59 every 6 [place] mcg/actuati 00 :00 (six) Medical on inhaler hours as Branc h needed for Chest tightness for up to 30 days. albuterol 2022- No [id number] 2{puff} Inhale 2 [facility] (VENTOLIN 5-18 06-18 Puffs ity of HFA) 90 00:00: 04:59 every 6 [place] mcg/actuati 00 :00 (six) Medical on inhaler hours as Branc h needed for Chest tightness for up to 30 days. bromphenira 2022- No [id number] 5mL Take 5 mL [facility] mine-pseudo 5-18 -29 by mouth 4 i ty of ephedrine-D 00:: 04:59 (four) [place] M (BROMFED 00 :00 times Medical DM) 2-30-10 daily as Bran ch mg/5 mL needed for syrup Congestion /Allergies or Cough for up to 10 days. bromphenira 2022-0 2022- No [id number] 5mL Take 5 mL [facility] mine-pseudo 5-18 05-29 by mouth 4 i ty of ephedrine-D 00:00: 04:59 (four) [place] M (BROMFED 00 :00 times Medical DM) 2-30-10 daily as [place] ch mg/5 mL needed for syrup Congestion /Allergies or Cough for up to 10 days. bromphenira 2022022- No [id number] 5mL Take 5 mL [facility] mine-pseudo 5-18 05-29 by mouth 4 i ty of ephedrine-D 00:00: 04:59 (four) [place] M (BROMFED 00 :00 times Medical DM) 2-30-10 daily as Bran ch mg/5 mL needed for syrup Congestion /Allergies or Cough for up to 10 days. bromphenira 2022-0 2022- No [id number] 5mL Take 5 mL [facility] mine-pseudo 5-18 05-29 by mouth 4 i ty of ephedrine-D 00:00: 04:59 (four) [place] M (BROMFED 00 :00 times Medical DM) 2-30-10 daily as Bran ch mg/5 mL needed for syrup Congestion /Allergies or Cough for up to 10 days. bromphenira 0 2022- No [id number] 5mL Take 5 mL [facility] mine-pseudo 5-18 05-29 by mouth 4 i ty of ephedrine-D 00:00: 04:59 (four) [place] M (BROMFED 00 :00 times Medical DM) 2-30-10 daily as Bran ch mg/5 mL needed for syrup Congestion /Allergies or Cough for up to 10 days. azithromyci 2022-2022- No [id number] 250mg Take 1 [facility] n 250 mg 5-18 05-25 tablet by ity o f tablet 00:00: 04:59 mouth in [place] 00 :00 [facility] for 6 days. Take 500 mg day 1, then 250 mg days 2 to 5. azithromyci 2022-2022- No [id number] 250mg Take 1 [facility] n 250 mg 5-18 05-25 tablet by ity o f tablet 00:00: 04:59 mouth in [place] 00 :00 [facility] morning [place] for 6 days. Take 500 mg day 1, then 250 mg days 2 to 5. azithromyci 2022-0 2022- No [id number] 250mg Take 1 [facility] 250 mg 5-18 05-25 tablet by ity o f tablet 00:00: 04:59 mouth in [place] 00 :00 [facility] for 6 days. Take 500 mg day 1, then 250 mg days 2 to 5. triamcinolo Yes 1{dose} Apply 1 [facility] ne 0.025 % 5-15 Dose to ity of cream 00:00: area(s) as [place] 00 needed. [facility] Yes 1{dose} Apply 1 [facility] ne 0.025 % 5-15 Dose to ity of cream 00:00: area(s) as [place] 00 needed. [facility] Yes 1{dose} Apply 1 [facility] ne 0.025 % 5-15 Dose to ity of cream 00:00: area(s) as [place] 00 needed. [facility] Yes 1{dose} Apply 1 [facility] ne 0.025 % 5-15 Dose to ity of cream 00:00: area(s) as [place] 00 needed. [facility] Yes 1{dose} Apply 1 [facility] ne 0.025 % 5-15 Dose to ity of cream 00:00: area(s) as [place] 00 needed. [facility] Yes 1{dose} Apply 1 [facility] ne 0.025 % 5-15 Dose to ity of cream 00:00: area(s) as [place] 00 needed. [facility] Yes 1{dose} Apply 1 [facility] ne 0.025 % 5-15 Dose to ity of cream 00:00: area(s) as [place] 00 needed. [facility] Yes 1{dose} Apply 1 [facility] ne 0.025 % 5-15 Dose to ity of cream 00:00: area(s) as [place] 00 needed. [facility] Yes 1{dose} Apply 1 [facility] ne 0.025 % 5-15 Dose to ity of cream 00:00: area(s) as [place] 00 needed. [facility] Yes 1{dose} Apply 1 [facility] ne 0.025 % 5-15 Dose to ity of cream 00:00: area(s) as [place] 00 needed. Medical Branch [facility] Yes 1{dose} Apply 1 [facility] ne 0.025 % 5-15 Dose to ity of cream 00:00: area(s) as [place] 00 needed. Medical Branch [facility] Yes 1{dose} Apply 1 [facility] ne 0.025 % 5-15 Dose to ity of cream 00:00: area(s) as [place] 00 needed. Medical Branch tricinolo 2022-0 Yes 1{dose} Apply 1 [facility] ne 0.025 % 5-15 Dose to ity of cream 00:00: area(s) as [place] 00 needed. Medical Branch triamcinolo 2022-0 Yes 1{dose} Apply 1 [facility] ne 0.025 % 5-15 Dose to ity of cream 00:00: area(s) as [place] 00 needed. Medical Branch tricinolo 2022-0 Yes 1{dose} Apply 1 [facility] ne 0.025 % 5-15 Dose to ity of cream 00:00: area(s) as [place] 00 needed. [facility] Yes 1{dose} Apply 1 [facility] ne 0.025 % 5-15 Dose to ity of cream 00:00: area(s) as [place] 00 needed. [facility] 20[facility] Yes 1{dose} Apply 1 [facility] ne 0.025 % 5-15 Dose to ity of cream 00:00: area(s) as [place] 00 needed. Medical Branch tricinolo 2022-0 Yes 1{dose} Apply 1 [facility] ne 0.025 % 5-15 Dose to ity of cream 00:00: area(s) as [place] 00 needed. Medical Branch tricinolo 2022-0 Yes 1{dose} Apply 1 [facility] ne 0.025 % 5-15 Dose to ity of cream 00:00: area(s) as [place] 00 needed. [facility] 20[facility] Yes 1{dose} Apply 1 [facility] ne 0.025 % 5-15 Dose to ity of cream 00:00: area(s) as [place] 00 needed. Medical Branch tricinolo 2022-0 Yes 1{dose} Apply 1 [facility] ne 0.025 % 5-15 Dose to ity of cream 00:00: area(s) as [place] 00 needed. Medical Branch chlorthalid 3-0 Yes [id number] 25mg Take 1 [facility] one 25 mg 5-10 tablet by ity o f tablet 00:00: mouth in [place] 00 the Medical morning. Branch chlorthalid 2022-0 Yes [id number] 25mg Take 1 [facility] one 25 mg 5-10 tablet by ity o f tablet 00:00: mouth in [place] 00 the Medical morning. Branch chlorthalid 2023-0 Yes [id number] 25mg Take 1 [facility] one 25 mg 5-10 tablet by ity o f tablet 00:00: mouth in [place] 00 the Medical morning. Branch chlorthalid 2023-0 Yes [id number] 25mg Take 1 [facility] one 25 mg 5-10 tablet by ity o f tablet 00:00: mouth in [place] 00 the Medical morning. Branch chlorthalid 2023-0 Yes [id number] 25mg Take 1 [facility] one 25 mg 5-10 tablet by ity o f tablet 00:00: mouth in [place] 00 the Medical morning. Branch chlorthalid 2023-0 Yes [id number] 25mg Take 1 [facility] one 25 mg 5-10 tablet by ity o f tablet 00:00: mouth in [place] 00 the Medical morning. Branch chlorthalid 2023-0 Yes [id number] 25mg Take 1 [facility] one 25 mg 5-10 tablet by ity o f tablet 00:00: mouth in [place] 00 the Medical morning. Branch chlorthalid 2023-0 Yes [id number] 25mg Take 1 [facility] one 25 mg 5-10 tablet by ity o f tablet 00:00: mouth in [place] 00 the Medical morning. Branch chlorthalid 2023-0 Yes [id number] 25mg Take 1 [facility] one 25 mg 5-10 tablet by ity o f tablet 00:00: mouth in [place] 00 the Medical morning. Branch chlorthalid 2023-0 Yes [id number] 25mg Take 1 [facility] one 25 mg 5-10 tablet by ity o f tablet 00:00: mouth in [place] 00 the Medical morning. Branch chlorthalid 2023-0 Yes [id number] 25mg Take 1 [facility] one 25 mg 5-10 tablet by ity o f tablet 00:00: mouth in [place] 00 the Medical morning. Branch chlorthalid 2023-0 Yes [id number] 25mg Take 1 [facility] one 25 mg 5-10 tablet by ity o f tablet 00:00: mouth in [place] 00 the Medical morning. Branch chlorthalid 2023-0 Yes [id number] 25mg Take 1 [facility] one 25 mg 5-10 tablet by ity o f tablet 00:00: mouth in [place] 00 the Medical morning. Branch chlorthalid 2023-0 Yes [id number] 25mg Take 1 [facility] one 25 mg 5-10 tablet by ity o f tablet 00:00: mouth in [place] 00 the Medical morning. Branch chlorthalid 2023-0 Yes [id number] 25mg Take 1 [facility] one 25 mg 5-10 tablet by ity o f tablet 00:00: mouth in [place] 00 the Medical morning. Branch chlorthalid 2023-0 Yes [id number] 25mg Take 1 [facility] one 25 mg 5-10 tablet by ity o f tablet 00:00: mouth in [place] 00 the Medical morning. Branch chlorthalid 2023-0 Yes [id number] 25mg Take 1 [facility] one 25 mg 5-10 tablet by ity o f tablet 00:00: mouth in [place] 00 the Medical morning. Branch chlorthalid 2023-0 Yes [id number] 25mg Take 1 [facility] one 25 mg 5-10 tablet by ity o f tablet 00:00: mouth in [place] 00 the Medical morning. Branch chlorthalid 2023-0 Yes [id number] 25mg Take 1 [facility] one 25 mg 5-10 tablet by ity o f tablet 00:00: mouth in [place] 00 the Medical morning. Branch chlorthalid 2023-0 Yes [id number] 25mg Take 1 [facility] one 25 mg 5-10 tablet by ity o f tablet 00:00: mouth in [place] 00 the Medical morning. Branch chlorthalid 2023-0 Yes [id number] 25mg Take 1 [facility] one 25 mg 5-10 tablet by ity o f tablet 00:00: mouth in [place] 00 the Medical morning. Branch chlorthalid 2023-0 Yes [id number] 25mg Take 1 [facility] one 25 mg 5-10 tablet by ity o f tablet 00:00: mouth in [place] 00 the Medical morning. Branch chlorthalid 2023-0 Yes [id number] 25mg Take 1 [facility] one 25 mg 5-10 tablet by ity o f tablet 00:00: mouth in [place] 00 the Medical morning. Branch chlorthalid 2023-0 Yes [id number] 25mg Take 1 [facility] one 25 mg 5-10 tablet by ity o f tablet 00:00: mouth in [place] 00 the Medical morning. Branch chlorthalid 2023-0 Yes [id number] 25mg Take 1 [facility] one 25 mg 5-10 tablet by ity o f tablet 00:00: mouth in [place] 00 the Medical morning. Branch chlorthalid 2023-0 Yes [id number] 25mg Take 1 [facility] one 25 mg 5-10 tablet by ity o f tablet 00:00: mouth in [place] 00 the Medical morning. Branch chlorthalid 3-0 Yes [id number] 25mg Take 1 [facility] one 25 mg 5-10 tablet by ity o f tablet 00:00: mouth in [place] 00 the Medical morning. Branch chlorthalid 3-0 Yes [id number] 25mg Take 1 [facility] one 25 mg 5-10 tablet by ity o f tablet 00:00: mouth in [place] 00 the Medical morning. Branch chlorthalid 3-0 Yes [id number] 25mg Take 1 [facility] one 25 mg 5-10 tablet by ity o f tablet 00:00: mouth in [place] 00 the Medical morning. Branch chlorthalid 3-0 Yes [id number] 25mg Take 1 [facility] one 25 mg 5-10 tablet by ity o f tablet 00:00: mouth in [place] 00 the Medical morning. Branch chlorthalid 3-0 Yes [id number] 25mg Take 1 [facility] one 25 mg 5-10 tablet by ity o f tablet 00:00: mouth in [place] 00 the Medical morning. Branch chlorthalid 2022-0 Yes [id number] 25mg Take 1 [facility] one 25 mg 5-10 tablet by ity o f tablet 00:00: mouth in [place] 00 the Medical morning. Branch chlorthalid 3-0 Yes [id number] 25mg Take 1 [facility] one 25 mg 5-10 tablet by ity o f tablet 00:00: mouth in [place] 00 the Medical morning. Branch chlorthalid 2022-0 3- No [id number] 25mg Take 1 [facility] one 25 mg 5-10 08-25 tablet by ity of tablet 00:00: 00:00 mouth in [place] 00 :00 the Medical morning. Branch amoxicillin 2022-0 Yes [id number] 1{tbl} Take 1 [facility] -clavulanat 4-21 tablet by ity of e 875-125 00:00: [place] mg per 00 the Medical tablet morning Branch and 1 tablet in the evening. amoxicillin 2022-0 Yes [id number] 1{tbl} Take 1 [facility] -clavulanat 4-21 tablet by ity of e 875-125 00:00: mouth [place] mg per 00 the Medical tablet morning Branch and 1 tablet in the evening. amoxicillin 2022-0 Yes [id number] 1{tbl} Take 1 [facility] -clavulanat 4-21 tablet by ity of e 875-125 00:00: mouth [place] mg per 00 the Medical tablet morning Branch and 1 tablet in the evening. amoxicillin 2022-0 Yes [id number] 1{tbl} Take 1 [facility] -clavulanat 4-21 tablet by ity of e 875-125 00:00: mouth [place] mg per 00 the Medical tablet morning Branch and 1 tablet in the evening. amoxicillin 2022-0 Yes [id number] 1{tbl} Take 1 [facility] -clavulanat 4-21 tablet by ity of e 875-125 00:00: mouth [place] mg per 00 the Medical tablet morning Branch and 1 tablet in the evening. amoxicillin 2022-0 Yes [id number] 1{tbl} Take 1 [facility] -clavulanat 4-21 tablet by ity of e 875-125 00:00: mouth [place] mg per 00 the Medical tablet morning Branch and 1 tablet in the evening. amoxicillin 2022-0 Yes [id number] 1{tbl} Take 1 [facility] -clavulanat 4-21 tablet by ity of e 875-125 00:00: mouth [place] mg per 00 the Medical tablet morning Branch and 1 tablet in the evening. amoxicillin 2022-0 Yes [id number] 1{tbl} Take 1 [facility] -clavulanat 4-21 tablet by ity of e 875-125 00:00: mouth [place] mg per 00 the Medical tablet morning Branch and 1 tablet in the evening. amoxicillin 2022-0 Yes [id number] 1{tbl} Take 1 [facility] -clavulanat 4-21 tablet by ity of e 875-125 00:00: mouth [place] mg per 00 the Medical tablet morning Branch and 1 tablet in the evening. amoxicillin 2022-0 Yes [id number] 1{tbl} Take 1 [facility] -clavulanat 4-21 tablet by ity of e 875-125 00:00: mouth [place] mg per 00 the Medical tablet morning Branch and 1 tablet in the evening. amoxicillin 3-0 Yes [id number] 1{tbl} Take 1 [facility] -clavulanat 4-21 tablet by ity of e 875-125 00:00: mouth [place] mg per 00 the Medical tablet morning Branch and 1 tablet in the evening. amoxicillin 2022-0 Yes [id number] 1{tbl} Take 1 [facility] -clavulanat 4-21 tablet by ity of e 875-125 00:00: mouth [place] mg per 00 the Medical tablet morning Branch and 1 tablet in the evening. amoxicillin 2022-0 Yes [id number] 1{tbl} Take 1 [facility] -clavulanat 4-21 tablet by ity of e 875-125 00:00: mouth [place] mg per 00 the Medical tablet morning Branch and 1 tablet in the evening. amoxicillin 2022-0 Yes [id number] 1{tbl} Take 1 [facility] -clavulanat 4-21 tablet by ity of e 875-125 00:00: mouth [place] mg per 00 the Medical tablet morning Branch and 1 tablet in the evening. amoxicillin 2022-0 Yes [id number] 1{tbl} Take 1 [facility] -clavulanat 4-21 tablet by ity of e 875-125 00:00: mouth [place] mg per 00 the Medical tablet morning Branch and 1 tablet in the evening. amoxicillin 2022-0 Yes [id number] 1{tbl} Take 1 [facility] -clavulanat 4-21 tablet by ity of e 875-125 00:00: mouth [place] mg per 00 the Medical tablet morning Branch and 1 tablet in the evening. amoxicillin 2022-0 Yes [id number] 1{tbl} Take 1 [facility] -clavulanat 4-21 tablet by ity of e 875-125 00:00: mouth [place] mg per 00 the Medical tablet morning Branch and 1 tablet in the evening. amoxicillin 2022-0 Yes [id number] 1{tbl} Take 1 [facility] -clavulanat 4-21 tablet by ity of e 875-125 00:00: mouth [place] mg per 00 the Medical tablet morning Branch and 1 tablet in the evening. amoxicillin 2022-0 2022- No [id number] 1{tbl} Take 1 [facility] -clavulanat 4-21 07-05 tablet by it y of e 875-125 00:00: 00:00 mouth in [place] as mg per 00 :00 the Medical tablet morning Branch and 1 tablet in the evening. amoxicillin 2022-0 3- No [id number] 1{tbl} Take 1 [facility] -clavulanat 4-21 07-05 tablet by it y of e 875125 00:00: 00:00 mouth in [place] as mg per 00 :00 the Medical tablet morning Branch and 1 tablet in the evening. insulin 2022-0 Yes [id number] 23U inject 23 [facility] glargine 4-15 Units ity of 100 unit/mL 00:00: under the [place] injection 00 skin in [facility] morning. insulin 2022-0 Yes [id number] 23U inject 23 [facility] glargine 4-15 Units ity of 100 unit/mL 00:00: under the [place] injection 00 skin in [facility] morning. insulin 2022-0 Yes [id number] 23U inject 23 [facility] glargine 4-15 Units ity of 100 unit/mL 00:00: under the [place] injection 00 skin in [facility] morning. insulin 2022-0 Yes [id number] 23U inject 23 [facility] glargine 4-15 Units ity of 100 unit/mL 00:00: under the [place] injection 00 skin in [facility] morning. insulin 2022-0 Yes [id number] 23U inject 23 [facility] glargine 4-15 Units ity of 100 unit/mL 00:00: under the [place] injection 00 skin in [facility] morning. insulin 2022-0 Yes [id number] 23U inject 23 [facility] glargine 4-15 Units ity of 100 unit/mL 00:00: under the [place] injection 00 skin in [facility] . insulin 2022-0 Yes [id number] 23U inject 23 [facility] glargine 4-15 Units ity of 100 unit/mL 00:00: under the [place] injection 00 skin in [facility] morning. insulin 2022-0 Yes [id number] 23U inject 23 [facility] glargine 4-15 Units ity of 100 unit/mL 00:00: under the [place] injection 00 skin in [facility] morning. insulin 2022-0 Yes [id number] 23U inject 23 [facility] glargine 4-15 Units ity of 100 unit/mL 00:00: under the [place] injection 00 skin in [facility] morning. insulin 2022-0 Yes [id number] 23U inject 23 [facility] glargine 4-15 Units ity of 100 unit/mL 00:00: under the [place] injection 00 skin in [facility] morning. insulin 2022-0 Yes [id number] 23U inject 23 [facility] glargine 4-15 Units ity of 100 unit/mL 00:00: under the [place] injection 00 skin in [facility] morning. insulin 2022-0 Yes [id number] 23U inject 23 [facility] glargine 4-15 Units ity of 100 unit/mL 00:00: under the [place] injection 00 skin in [facility] morning. insulin 2022-0 Yes [id number] 23U inject 23 [facility] glargine 4-15 Units ity of 100 unit/mL 00:00: under the [place] injection 00 skin in [facility] morning. insulin 2022-0 Yes [id number] 23U inject 23 [facility] glargine 4-15 Units ity of 100 unit/mL 00:00: under the [place] injection 00 skin in [facility] morning. insulin 2022-0 Yes [id number] 23U inject 23 [facility] glargine 4-15 Units ity of 100 unit/mL 00:00: under the [place] injection 00 skin in [facility] morning. insulin 2022-0 Yes [id number] 23U inject 23 [facility] glargine 4-15 Units ity of 100 unit/mL 00:00: under the [place] injection 00 skin in [facility] morning. insulin 2022-0 Yes [id number] 23U inject 23 [facility] glargine 4-15 Units ity of 100 unit/mL 00:00: under the [place] injection 00 skin in [facility] morning. insulin 2022-0 202- No [id number] 23U inject 23 [facility] glargine 4-15 05-18 Units ity of 100 unit/mL 00:00: 00:00 under the [place] injection 00 :00 skin in [facility] morning. insulin 2022-0 2022- No [id number] 23U inject 23 [facility] glargine 4-15 05-18 Units ity of 100 unit/mL 00:00: 00:00 under the [place] injection 00 :00 skin in [facility] morning. cholecalcif 2022-0 Yes 1{capsu Take 1 U nivramón gayle, 4-14 le} capsule by ity of vitamin D3, 19:16: mouth [place] (VITAMIN 44 daily. Medical D3) 100 mcg Branch (4,000 unit) Cap fish 0 Yes 2{capsu Take 2 Univers oil/borage/ 4-14 le} capsules ity of flax/om3,6, 19:16: by mouth [place] 9 1 (OMEGA 44 daily. Medical 3-6-9 ORAL) Branch cholecalcif 0 Yes 1{capsu Take 1 U nivers gayle, 4-14 le} capsule by ity of vitamin D3, 19:16: mouth [place] (VITAMIN 44 daily. Medical D3) 100 mcg Branch (4,000 unit) Cap fish 0 Yes 2{capsu Take 2 Univers oil/borage/ 4-14 le} capsules ity of flax/om3,6, 19:16: by mouth [place] 9 1 (OMEGA 44 daily. Medical 3-6-9 ORAL) Branch cholecalcif 0 Yes 1{capsu Take 1 U nivers gayle, 4-14 le} capsule by ity of vitamin D3, 19:16: mouth [place] (VITAMIN 44 daily. Medical D3) 100 mcg Branch (4,000 unit) Cap fish 0 Yes 2{capsu Take 2 Univers oil/borage/ 4-14 le} capsules ity of flax/om3,6, 19:16: by mouth [place] 9 1 (OMEGA 44 daily. Medical 3-6-9 ORAL) Branch cholecalcif 0 Yes 1{capsu Take 1 U nivers gayle, 4-14 le} capsule by ity of vitamin D3, 19:16: mouth [place] (VITAMIN 44 daily. Medical D3) 100 mcg Branch (4,000 unit) Cap fish 0 Yes 2{capsu Take 2 Univers oil/borage/ 4-14 le} capsules ity of flax/om3,6, 19:16: by mouth [place] 9 1 (OMEGA 44 daily. Medical 3-6-9 ORAL) Branch cholecalcif 0 Yes 1{capsu Take 1 U nivers gayle, 4-14 le} capsule by ity of vitamin D3, 19:16: mouth [place] (VITAMIN 44 daily. Medical D3) 100 mcg Branch (4,000 unit) Cap fish 2023-0 Yes 2{capsu Take 2 Univers oil/borage/ 4-14 le} capsules ity of flax/om3,6, 19:16: by mouth [place] 9 1 (OMEGA 44 daily. Medical 3-6-9 ORAL) Branch cholecalcif Yes 1{capsu Take 1 U nivers gayle, 4-14 le} capsule by ity of vitamin D3, 19:16: mouth [place] (VITAMIN 44 daily. Medical D3) 100 mcg Branch (4,000 unit) Cap fish Yes 2{capsu Take 2 Univers oil/borage/ 4-14 le} capsules ity of flax/om3,6, 19:16: by mouth [place] 9 1 (OMEGA 44 daily. Medical 3-6-9 ORAL) Branch cholecalcif Yes 1{capsu Take 1 U nivers gayle, 4-14 le} capsule by ity of vitamin D3, 19:16: mouth [place] (VITAMIN 44 daily. Medical D3) 100 mcg Branch (4,000 unit) Cap fish Yes 2{capsu Take 2 Univers oil/borage/ 4-14 le} capsules ity of flax/om3,6, 19:16: by mouth [place] 9 1 (OMEGA 44 daily. Medical 3-6-9 ORAL) Branch cholecalcif Yes 1{capsu Take 1 U nivers gayle, 4-14 le} capsule by ity of vitamin D3, 19:16: mouth [place] (VITAMIN 44 daily. Medical D3) 100 mcg Branch (4,000 unit) Cap fish Yes 2{capsu Take 2 Univers oil/borage/ 4-14 le} capsules ity of flax/om3,6, 19:16: by mouth [place] 9 1 (OMEGA 44 daily. Medical 3-6-9 ORAL) Branch cholecalcif Yes 1{capsu Take 1 U nivers gayle, 4-14 le} capsule by ity of vitamin D3, 19:16: mouth [place] (VITAMIN 44 daily. Medical D3) 100 mcg Branch (4,000 unit) Cap fish Yes 2{capsu Take 2 Univers oil/borage/ 4-14 le} capsules ity of flax/om3,6, 19:16: by mouth [place] 9 1 (OMEGA 44 daily. Medical 3-6-9 ORAL) Branch cholecalcif 0 Yes 1{capsu Take 1 U nivers gayle, 4-14 le} capsule by ity of vitamin D3, 19:16: mouth [place] (VITAMIN 44 daily. Medical D3) 100 mcg Branch (4,000 unit) Cap fish 0 Yes 2{capsu Take 2 Univers oil/borage/ 4-14 le} capsules ity of flax/om3,6, 19:16: by mouth [place] 9 1 (OMEGA 44 daily. Medical -6-9 ORAL) Branch cholecalcif 0 Yes 1{capsu Take 1 U nivers gayle, 4-14 le} capsule by ity of vitamin D3, 19:16: mouth [place] (VITAMIN 44 daily. Medical D3) 100 mcg Branch (4,000 unit) Cap fish 2022-0 Yes 2{capsu Take 2 Univers oil/borage/ 4-14 le} capsules ity of flax/om3,6, 19:16: by mouth [place] 9 1 (OMEGA 44 daily. Medical 11-01-9 ORAL) Branch cholecalcif 0 Yes 1{capsu Take 1 U nivers gayle, 4-14 le} capsule by ity of vitamin D3, 19:16: mouth [place] (VITAMIN 44 daily. Medical D3) 100 mcg Branch (4,000 unit) Cap fish 0 Yes 2{capsu Take 2 Univers oil/borage/ 4-14 le} capsules ity of flax/om3,6, 19:16: by mouth [place] 9 1 (OMEGA 44 daily. Medical 3-6-9 ORAL) Branch cholecalcif 0 Yes 1{capsu Take 1 U nivers gayle, 4-14 le} capsule by ity of vitamin D3, 19:16: mouth [place] (VITAMIN 44 daily. Medical D3) 100 mcg Branch (4,000 unit) Cap fish 2022-0 Yes 2{capsu Take 2 Univers oil/borage/ 4-14 le} capsules ity of flax/om3,6, 19:16: by mouth [place] 9 1 (OMEGA 44 daily. Medical 3-6-9 ORAL) Branch cholecalcif 2023-0 Yes 1{capsu Take 1 U nivers gayle, 4-14 le} capsule by ity of vitamin D3, 19:16: mouth [place] (VITAMIN 44 daily. Medical D3) 100 mcg Branch (4,000 unit) Cap fish Yes 2{capsu Take 2 Univers oil/borage/ 4-14 le} capsules ity of flax/om3,6, 19:16: by mouth [place] 9 1 (OMEGA 44 daily. Medical 3-6-9 ORAL) Branch cholecalcif Yes 1{capsu Take 1 U nivers gayle, 4-14 le} capsule by ity of vitamin D3, 19:16: mouth [place] (VITAMIN 44 daily. Medical D3) 100 mcg Branch (4,000 unit) Cap fish Yes 2{capsu Take 2 Univers oil/borage/ 4-14 le} capsules ity of flax/om3,6, 19:16: by mouth [place] 9 1 (OMEGA 44 daily. Medical 3-6-9 ORAL) Branch cholecalcif Yes 1{capsu Take 1 U nivers gayle, 4-14 le} capsule by ity of vitamin D3, 19:16: mouth [place] (VITAMIN 44 daily. Medical D3) 100 mcg Branch (4,000 unit) Cap fish Yes 2{capsu Take 2 Univers oil/borage/ 4-14 le} capsules ity of flax/om3,6, 19:16: by mouth [place] 9 1 (OMEGA 44 daily. Medical 3-6-9 ORAL) Branch cholecalcif Yes 1{capsu Take 1 U nivers gayle, 4-14 le} capsule by ity of vitamin D3, 19:16: mouth [place] (VITAMIN 44 daily. Medical D3) 100 mcg Branch (4,000 unit) Cap fish 0 Yes 2{capsu Take 2 Univers oil/borage/ 4-14 le} capsules ity of flax/om3,6, 19:16: by mouth [place] 9 1 (OMEGA 44 daily. Medical 3-6-9 ORAL) Branch cholecalcif 0 Yes 1{capsu Take 1 U nivers gayle, 4-14 le} capsule by ity of vitamin D3, 19:16: mouth [place] (VITAMIN 44 daily. Medical D3) 100 mcg Branch (4,000 unit) Cap fish Yes 2{capsu Take 2 Univers oil/borage/ 4-14 le} capsules ity of flax/om3,6, 19:16: by mouth [place] 9 1 (OMEGA 44 daily. Medical 3-6-9 ORAL) Branch cholecalcif Yes 1{capsu Take 1 U nivers gayle, 4-14 le} capsule by ity of vitamin D3, 19:16: mouth [place] (VITAMIN 44 daily. Medical D3) 100 mcg Branch (4,000 unit) Cap fish 0 Yes 2{capsu Take 2 Univers oil/borage/ 4-14 le} capsules ity of flax/om3,6, 19:16: by mouth [place] 9 1 (OMEGA 44 daily. Medical 3-6-9 ORAL) Branch cholecalcif Yes 1{capsu Take 1 U nivers gayle, 4-14 le} capsule by ity of vitamin D3, 19:16: mouth [place] (VITAMIN 44 daily. Medical D3) 100 mcg Branch (4,000 unit) Cap fish Yes 2{capsu Take 2 Univers oil/borage/ 4-14 le} capsules ity of flax/om3,6, 19:16: by mouth [place] 9 1 (OMEGA 44 daily. Medical 3-6-9 ORAL) Branch cholecalcif Yes 1{capsu Take 1 U nivers gayle, 4-14 le} capsule by ity of vitamin D3, 19:16: mouth [place] (VITAMIN 44 daily. Medical D3) 100 mcg Branch (4,000 unit) Cap fish 0 Yes 2{capsu Take 2 Univers oil/borage/ 4-14 le} capsules ity of flax/om3,6, 19:16: by mouth [place] 9 1 (OMEGA 44 daily. Medical 3-6-9 ORAL) Branch cholecalcif 0 Yes 1{capsu Take 1 U nivers gayle, 4-14 le} capsule by ity of vitamin D3, 19:16: mouth [place] (VITAMIN 44 daily. Medical D3) 100 mcg Branch (4,000 unit) Cap fish 0 Yes 2{capsu Take 2 Univers oil/borage/ 4-14 le} capsules ity of flax/om3,6, 19:16: by mouth [place] 9 1 (OMEGA 44 daily. Medical 3-6-9 ORAL) Branch cholecalcif Yes 1{capsu Take 1 U nivers gayle, 4-14 le} capsule by ity of vitamin D3, 19:16: mouth [place] (VITAMIN 44 daily. Medical D3) 100 mcg Branch (4,000 unit) Cap fish Yes 2{capsu Take 2 Univers oil/borage/ 4-14 le} capsules ity of flax/om3,6, 19:16: by mouth [place] 9 1 (OMEGA 44 daily. Medical 3-6-9 ORAL) Branch cholecalcif Yes 1{capsu Take 1 U nivers gayle, 4-14 le} capsule by ity of vitamin D3, 19:16: mouth [place] (VITAMIN 44 daily. Medical D3) 100 mcg Branch (4,000 unit) Cap fish Yes 2{capsu Take 2 Univers oil/borage/ 4-14 le} capsules ity of flax/om3,6, 19:16: by mouth [place] 9 1 (OMEGA 44 daily. Medical 3-6-9 ORAL) Branch cholecalcif Yes 1{capsu Take 1 U nivers gayle, 4-14 le} capsule by ity of vitamin D3, 19:16: mouth [place] (VITAMIN 44 daily. Medical D3) 100 mcg Branch (4,000 unit) Cap fish Yes 2{capsu Take 2 Univers oil/borage/ 4-14 le} capsules ity of flax/om3,6, 19:16: by mouth [place] 9 1 (OMEGA 44 daily. Medical 3-6-9 ORAL) Branch cholecalcif 0 Yes 1{capsu Take 1 U nivers gayle, 4-14 le} capsule by ity of vitamin D3, 19:16: mouth [place] (VITAMIN 44 daily. Medical D3) 100 mcg Branch (4,000 unit) Cap fish 0 Yes 2{capsu Take 2 Univers oil/borage/ 4-14 le} capsules ity of flax/om3,6, 19:16: by mouth [place] 9 1 (OMEGA 44 daily. Medical 3-6-9 ORAL) Branch cholecalcif Yes 1{capsu Take 1 U nivers gayle, 4-14 le} capsule by ity of vitamin D3, 19:16: mouth [place] (VITAMIN 44 daily. Medical D3) 100 mcg Branch (4,000 unit) Cap fish Yes 2{capsu Take 2 Univers oil/borage/ 4-14 le} capsules ity of flax/om3,6, 19:16: by mouth [place] 9 1 (OMEGA 44 daily. Medical 3-6-9 ORAL) Branch cholecalcif Yes 1{capsu Take 1 U nivers gayle, 4-14 le} capsule by ity of vitamin D3, 19:16: mouth [place] (VITAMIN 44 daily. Medical D3) 100 mcg Branch (4,000 unit) Cap fish Yes 2{capsu Take 2 Univers oil/borage/ 4-14 le} capsules ity of flax/om3,6, 19:16: by mouth [place] 9 1 (OMEGA 44 daily. Medical 3-6-9 ORAL) Branch Sliding Yes Subcutaneo Univ ers Scale 4-14 us, TID ity of Insulin - 14:00: MEALS+HS, [place] as Lispro 00 First dose Medical (HumaLOG) + (after Branch Fsbg last Testing modificati on) on Tue12/10/22 at 0900, Until Discontinu ed, Routine insulin 0 Yes 5U 5 Units, Univer s lispro 4-14 Subcutaneo ity of (human) 14:00: us, TID [place] (HumaLOG 00 MEALS, Medical U-100) First dose Branch injection 5 (after Units last modificati on) on Tue12/10/22 at 0900, Until Discontinu ed, Routine insulin 2022-0 Yes 23U 23 Units, Unive rs glargine 4-14 Subcutaneo ity o f (LANTUS 14:00: [place], DAILY, [place] U-100) 00 First dose Medical injection (after Branch 23 Units last modificati on) on Tue12/10/22 at 0900, Until Discontinu ed, Routine cholecalcif 0 Yes 1{capsu Take 1 U nivers gayle, 4-14 le} capsule by ity of vitamin D3, 10:47: mouth [place] (VITAMIN 40 daily. Medical D3) 100 mcg Branch (4,000 unit) Cap fish Yes 2{capsu Take 2 Univers oil/borage/ 4-14 le} capsules ity of flax/om3,6, 10:47: by mouth [place] 9 1 (OMEGA 40 daily. Medical 3-6-9 ORAL) Branch glucagon Yes [id number] 1mg inject 1 [facility] 0.5 mg/0.1 4-14 mg under ity o f mL AtIn 00:00: the skin [place] 00 every 15 Medical (fifteen) Branch minutes as needed (severe hypoglycem ia). glucagon Yes [id number] 1mg inject 1 [facility] 0.5 mg/0.1 4-14 mg under ity o f mL AtIn 00:00: the skin [place] 00 every 15 Medical (fifteen) Branch minutes as needed (severe hypoglycem ia). glucagon Yes [id number] 1mg inject 1 [facility] 0.5 mg/0.1 4-14 mg under ity o f mL AtIn 00:00: the skin [place] 00 every 15 Medical (fifteen) Branch minutes as needed (severe hypoglycem ia). glucagon Yes [id number] 1mg inject 1 [facility] 0.5 mg/0.1 4-14 mg under ity o f mL AtIn 00:00: the skin [place] 00 every 15 Medical (fifteen) Branch minutes as needed (severe hypoglycem ia). glucagon Yes [id number] 1mg inject 1 [facility] 0.5 mg/0.1 4-14 mg under ity o f mL AtIn 00:00: the skin [place] 00 every 15 Medical (fifteen) Branch minutes as needed (severe hypoglycem ia). glucagon Yes [id number] 1mg inject 1 [facility] 0.5 mg/0.1 4-14 mg under ity o f mL AtIn 00:00: the skin [place] 00 every 15 Medical (fifteen) Branch minutes as needed (severe hypoglycem ia). glucagon Yes [id number] 1mg inject 1 [facility] 0.5 mg/0.1 4-14 mg under ity o f mL AtIn 00:00: the skin [place] 00 every 15 Medical (fifteen) Branch minutes as needed (severe hypoglycem ia). glucagon 2022-0 Yes [id number] 1mg inject 1 [facility] 0.5 mg/0.1 4-14 mg under ity o f mL AtIn 00:00: the skin [place] 00 every 15 Medical (fifteen) Branch minutes as needed (severe hypoglycem ia). glucagon 2022-0 Yes [id number] 1mg inject 1 [facility] 0.5 mg/0.1 4-14 mg under ity o f mL AtIn 00:00: the skin [place] 00 every 15 Medical (fifteen) Branch minutes as needed (severe hypoglycem ia). glucagon 2022-0 Yes [id number] 1mg inject 1 [facility] 0.5 mg/0.1 4-14 mg under ity o f mL AtIn 00:00: the skin [place] 00 every 15 Medical (fifteen) Branch minutes as needed (severe hypoglycem ia). glucagon 2022-0 Yes [id number] 1mg inject 1 [facility] 0.5 mg/0.1 4-14 mg under ity o f mL AtIn 00:00: the skin [place] 00 every 15 Medical (fifteen) Branch minutes as needed (severe hypoglycem ia). glucagon 2022-0 Yes [id number] 1mg inject 1 [facility] 0.5 mg/0.1 4-14 mg under ity o f mL AtIn 00:00: the skin [place] 00 every 15 Medical (fifteen) Branch minutes as needed (severe hypoglycem ia). glucagon 2022-0 Yes [id number] 1mg inject 1 [facility] 0.5 mg/0.1 4-14 mg under ity o f mL AtIn 00:00: the skin [place] 00 every 15 Medical (fifteen) Branch minutes as needed (severe hypoglycem ia). glucagon 2022-0 Yes [id number] 1mg inject 1 [facility] 0.5 mg/0.1 4-14 mg under ity o f mL AtIn 00:00: the skin [place] 00 every 15 Medical (fifteen) Branch minutes as needed (severe hypoglycem ia). glucagon 2022-0 Yes [id number] 1mg inject 1 [facility] 0.5 mg/0.1 4-14 mg under ity o f mL AtIn 00:00: the skin [place] 00 every 15 Medical (fifteen) Branch minutes as needed (severe hypoglycem ia). glucagon 2022-0 Yes [id number] 1mg inject 1 [facility] 0.5 mg/0.1 4-14 mg under ity o f mL AtIn 00:00: the skin [place] 00 every 15 Medical (fifteen) Branch minutes as needed (severe hypoglycem ia). glucagon 2022-0 Yes [id number] 1mg inject 1 [facility] 0.5 mg/0.1 4-14 mg under ity o f mL AtIn 00:00: the skin [place] 00 every 15 Medical (fifteen) Branch minutes as needed (severe hypoglycem ia). glucagon 2022-0 Yes [id number] 1mg inject 1 [facility] 0.5 mg/0.1 4-14 mg under ity o f mL AtIn 00:00: the skin [place] 00 every 15 Medical (fifteen) Branch minutes as needed (severe hypoglycem ia). glucagon 2022-0 Yes [id number] 1mg inject 1 [facility] 0.5 mg/0.1 4-14 mg under ity o f mL AtIn 00:00: the skin [place] 00 every 15 Medical (fifteen) Branch minutes as needed (severe hypoglycem ia). glucagon 2022-0 Yes [id number] 1mg inject 1 [facility] 0.5 mg/0.1 4-14 mg under ity o f mL AtIn 00:00: the skin [place] 00 every 15 Medical (fifteen) Branch minutes as needed (severe hypoglycem ia). glucagon 2022-0 Yes [id number] 1mg inject 1 [facility] 0.5 mg/0.1 4-14 mg under ity o f mL AtIn 00:00: the skin [place] 00 every 15 Medical (fifteen) Branch minutes as needed (severe hypoglycem ia). glucagon 2022-0 Yes [id number] 1mg inject 1 [facility] 0.5 mg/0.1 4-14 mg under ity o f mL AtIn 00:00: the skin [place] 00 every 15 Medical (fifteen) Branch minutes as needed (severe hypoglycem ia). glucagon 2022-0 Yes [id number] 1mg inject 1 [facility] 0.5 mg/0.1 4-14 mg under ity o f mL AtIn 00:00: the skin [place] 00 every 15 Medical (fifteen) Branch minutes as needed (severe hypoglycem ia). glucagon 2022-0 Yes [id number] 1mg inject 1 [facility] 0.5 mg/0.1 4-14 mg under ity o f mL AtIn 00:00: the skin [place] 00 every 15 Medical (fifteen) Branch minutes as needed (severe hypoglycem ia). glucagon 2022-0 Yes [id number] 1mg inject 1 [facility] 0.5 mg/0.1 4-14 mg under ity o f mL AtIn 00:00: the skin [place] 00 every 15 Medical (fifteen) Branch minutes as needed (severe hypoglycem ia). glucagon 2022-0 Yes [id number] 1mg inject 1 [facility] 0.5 mg/0.1 4-14 mg under ity o f mL AtIn 00:00: the skin [place] 00 every 15 Medical (fifteen) Branch minutes as needed (severe hypoglycem ia). insulin 2022-0 Yes [id number] 5U inject 5 U nivers lispro, 4-14 Units ity of human, 100 00:00: under the [place] unit/mL 00 skin in Medical injection the Branch morning and 5 Units at noon and 5 Units in the evening. inject with meals. insulin 2022-0 Yes [id number] 5U inject 5 U nivers lispro, 4-14 Units ity of human, 100 00:00: under the [place] unit/mL 00 skin in Medical injection the Branch morning and 5 Units at noon and 5 Units in the evening. inject with meals. glucagon 2022-0 Yes [id number] 1mg inject 1 [facility] 0.5 mg/0.1 4-14 mg under ity o f mL AtIn 00:00: the skin [place] 00 every 15 Medical (fifteen) Branch minutes as needed (severe hypoglycem ia). insulin 2022-0 Yes [id number] 5U inject 5 U nivers lispro, 4-14 Units ity of human, 100 00:00: under the [place] unit/mL 00 skin in Medical injection the Branch morning and 5 Units at noon and 5 Units in the evening. inject with meals. glucagon 2022-0 Yes [id number] 1mg inject 1 [facility] 0.5 mg/0.1 4-14 mg under ity o f mL AtIn 00:00: the skin [place] 00 every 15 Medical (fifteen) Branch minutes as needed (severe hypoglycem ia). insulin 2022-0 Yes [id number] 5U inject 5 U nivers lispro, 4-14 Units ity of human, 100 00:00: under the [place] unit/mL 00 skin in Medical injection the Branch morning and 5 Units at noon and 5 Units in the evening. inject with meals. glucagon 2022-0 Yes [id number] 1mg inject 1 [facility] 0.5 mg/0.1 4-14 mg under ity o f mL AtIn 00:00: the skin [place] 00 every 15 Medical (fifteen) Branch minutes as needed (severe hypoglycem ia). insulin 2022-0 Yes [id number] 5U inject 5 U nivers lispro, 4-14 Units ity of human, 100 00:00: under the [place] unit/mL 00 skin in Medical injection the Branch morning and 5 Units at noon and 5 Units in the evening. inject with meals. glucagon 2022-0 Yes [id number] 1mg inject 1 [facility] 0.5 mg/0.1 4-14 mg under ity o f mL AtIn 00:00: the skin [place] 00 every 15 Medical (fifteen) Branch minutes as needed (severe hypoglycem ia). insulin 2022-0 Yes [id number] 5U inject 5 U nivers lispro, 4-14 Units ity of human, 100 00:00: under the [place] unit/mL 00 skin in Medical injection the Branch morning and 5 Units at noon and 5 Units in the evening. inject with meals. glucagon 2022-0 Yes [id number] 1mg inject 1 [facility] 0.5 mg/0.1 4-14 mg under ity o f mL AtIn 00:00: the skin [place] 00 every 15 Medical (fifteen) Branch minutes as needed (severe hypoglycem ia). insulin 2022-0 Yes [id number] 5U inject 5 U nivers lispro, 4-14 Units ity of human, 100 00:00: under the [place] unit/mL 00 skin in Medical injection the Branch morning and 5 Units at noon and 5 Units in the evening. inject with meals. glucagon 2022-0 Yes [id number] 1mg inject 1 [facility] 0.5 mg/0.1 4-14 mg under ity o f mL AtIn 00:00: the skin [place] 00 every 15 Medical (fifteen) Branch minutes as needed (severe hypoglycem ia). insulin 2022-0 Yes [id number] 5U inject 5 U nivers lispro, 4-14 Units ity of human, 100 00:00: under the [place] unit/mL 00 skin in Medical injection the Branch morning and 5 Units at noon and 5 Units in the evening. inject with meals. glucagon 2022-0 Yes [id number] 1mg inject 1 [facility] 0.5 mg/0.1 4-14 mg under ity o f mL AtIn 00:00: the skin [place] 00 every 15 Medical (fifteen) Branch minutes as needed (severe hypoglycem ia). insulin 2022-0 Yes [id number] 5U inject 5 U nivers lispro, 4-14 Units ity of human, 100 00:00: under the [place] unit/mL 00 skin in Medical injection the Branch morning and 5 Units at noon and 5 Units in the evening. inject with meals. glucagon 2022-0 Yes [id number] 1mg inject 1 [facility] 0.5 mg/0.1 4-14 mg under ity o f mL AtIn 00:00: the skin [place] 00 every 15 Medical (fifteen) Branch minutes as needed (severe hypoglycem ia). insulin 2022-0 Yes [id number] 5U inject 5 U nivers lispro, 4-14 Units ity of human, 100 00:00: under the [place] unit/mL 00 skin in Medical injection the Branch morning and 5 Units at noon and 5 Units in the evening. inject with meals. glucagon 2022-0 Yes [id number] 1mg inject 1 [facility] 0.5 mg/0.1 4-14 mg under ity o f mL AtIn 00:00: the skin [place] 00 every 15 Medical (fifteen) Branch minutes as needed (severe hypoglycem ia). insulin 2022-0 Yes [id number] 5U inject 5 U nivers lispro, 4-14 Units ity of human, 100 00:00: under the [place] unit/mL 00 skin in Medical injection the Branch morning and 5 Units at noon and 5 Units in the evening. inject with meals. glucagon 2022-0 Yes [id number] 1mg inject 1 [facility] 0.5 mg/0.1 4-14 mg under ity o f mL AtIn 00:00: the skin [place] 00 every 15 Medical (fifteen) Branch minutes as needed (severe hypoglycem ia). insulin 2022-0 Yes [id number] 5U inject 5 U nivers lispro, 4-14 Units ity of human, 100 00:00: under the [place] unit/mL 00 skin in Medical injection the Branch morning and 5 Units at noon and 5 Units in the evening. inject with meals. glucagon 2022-0 Yes [id number] 1mg inject 1 [facility] 0.5 mg/0.1 4-14 mg under ity o f mL AtIn 00:00: the skin [place] 00 every 15 Medical (fifteen) Branch minutes as needed (severe hypoglycem ia). insulin 2022-0 Yes [id number] 5U inject 5 U nivers lispro, 4-14 Units ity of human, 100 00:00: under the [place] unit/mL 00 skin in Medical injection the Branch morning and 5 Units at noon and 5 Units in the evening. inject with meals. glucagon 0 Yes [id number] 1mg inject 1 [facility] 0.5 mg/0.1 4-14 mg under ity o f mL AtIn 00:00: the skin [place] 00 every 15 Medical (fifteen) Branch minutes as needed (severe hypoglycem ia). insulin 0 Yes [id number] 5U inject 5 U nivers lispro, 4-14 Units ity of human, 100 00:00: under the [place] unit/mL 00 skin in Medical injection the Branch morning and 5 Units at noon and 5 Units in the evening. inject with meals. glucagon 2022-0 Yes [id number] 1mg inject 1 [facility] 0.5 mg/0.1 4-14 mg under ity o f mL AtIn 00:00: the skin [place] 00 every 15 Medical (fifteen) Branch minutes as needed (severe hypoglycem ia). insulin 2022-0 Yes [id number] 5U inject 5 U nivers lispro, 4-14 Units ity of human, 100 00:00: under the [place] unit/mL 00 skin in Medical injection the Branch morning and 5 Units at noon and 5 Units in the evening. inject with meals. glucagon 2022-0 Yes [id number] 1mg inject 1 [facility] 0.5 mg/0.1 4-14 mg under ity o f mL AtIn 00:00: the skin [place] 00 every 15 Medical (fifteen) Branch minutes as needed (severe hypoglycem ia). insulin 2022-0 Yes [id number] 5U inject 5 U nivers lispro, 4-14 Units ity of human, 100 00:00: under the [place] unit/mL 00 skin in Medical injection the Branch morning and 5 Units at noon and 5 Units in the evening. inject with meals. glucagon 2022-0 Yes [id number] 1mg inject 1 [facility] 0.5 mg/0.1 4-14 mg under ity o f mL AtIn 00:00: the skin [place] 00 every 15 Medical (fifteen) Branch minutes as needed (severe hypoglycem ia). insulin 2022-0 Yes [id number] 5U inject 5 U nivers lispro, 4-14 Units ity of human, 100 00:00: under the [place] unit/mL 00 skin in Medical injection the Branch morning and 5 Units at noon and 5 Units in the evening. inject with meals. glucagon 2022-0 Yes [id number] 1mg inject 1 [facility] 0.5 mg/0.1 4-14 mg under ity o f mL AtIn 00:00: the skin [place] 00 every 15 Medical (fifteen) Branch minutes as needed (severe hypoglycem ia). glucagon 2022-0 Yes [id number] 1mg inject 1 [facility] 0.5 mg/0.1 4-14 mg under ity o f mL AtIn 00:00: the skin [place] 00 every 15 Medical (fifteen) Branch minutes as needed (severe hypoglycem ia). glucagon 2022-0 Yes [id number] 1mg inject 1 [facility] 0.5 mg/0.1 4-14 mg under ity o f mL AtIn 00:00: the skin [place] 00 every 15 Medical (fifteen) Branch minutes as needed (severe hypoglycem ia). glucagon 2022-0 Yes [id number] 1mg inject 1 [facility] 0.5 mg/0.1 4-14 mg under ity o f mL AtIn 00:00: the skin [place] 00 every 15 Medical (fifteen) Branch minutes as needed (severe hypoglycem ia). glucagon 2022-0 Yes [id number] 1mg inject 1 [facility] 0.5 mg/0.1 4-14 mg under ity o f mL AtIn 00:00: the skin [place] 00 every 15 Medical (fifteen) Branch minutes as needed (severe hypoglycem ia). glucagon Yes [id number] 1mg inject 1 [facility] 0.5 mg/0.1 4-14 mg under ity o f mL AtIn 00:00: the skin [place] 00 every 15 Medical (fifteen) Branch minutes as needed (severe hypoglycem ia). insulin 2022- No [id number] 5U inject 5 [facility] lispro, 4-14 05-18 Units ity of human, 100 00:00: 00:00 under the [place] unit/mL 00 :00 skin in Medical injection the Branch morning and 5 Units at noon and 5 Units in the evening. inject with meals. insulin 2022- No [id number] 5U inject 5 [facility] lispro, 4-14 05-18 Units ity of human, 100 00:00: 00:00 under the [place] unit/mL 00 :00 skin in Medical injection the Branch morning and 5 Units at noon and 5 Units in the evening. inject with meals. HYDROcodone No 4647 1{tbl} Take 1 U nivers -acetaminop 4-14 04-22 tablet by it y of hen 10-325 00:00: 04:59 mouth [place] mg tablet 00 :00 every 6 Medical (six) Branch hours as needed for Pain (scale 4-6) or Pain (scale 7-10) for up to 7 days. Indication s: acute pain HYDROcodone No 4647 1{tbl} Take 1 U nivers -acetaminop 4-14 04-22 tablet by it y of hen 10-325 00:00: 04:59 mouth [place] mg tablet 00 :00 every 6 Medical (six) Branch hours as needed for Pain (scale 4-6) or Pain (scale 7-10) for up to 7 days. Indication s: acute pain HYDROcodone No 4647 1{tbl} Take 1 U nivers -acetaminop 4-14 04-22 tablet by it y of hen 10-325 00:00: 04:59 mouth [place] mg tablet 00 :00 every 6 Medical (six) Branch hours as needed for Pain (scale 4-6) or Pain (scale 7-10) for up to 7 days. Indication s: acute pain HYDROcodone 2022- No 4647 1{tbl} Take 1 U nivers -acetaminop 4-14 04-22 tablet by it y of hen 10-325 00:00: 04:59 mouth [place] mg tablet 00 :00 every 6 Medical (six) Branch hours as needed for Pain (scale 4-6) or Pain (scale 7-10) for up to 7 days. Indication s: acute pain HYDROcodone 2022- No 4647 1{tbl} Take 1 U nivers -acetaminop 4-14 04-22 tablet by it y of hen 10-325 00:00: 04:59 mouth [place] mg tablet 00 :00 every 6 Medical (six) Branch hours as needed for Pain (scale 4-6) or Pain (scale 7-10) for up to 7 days. Indication s: acute pain HYDROcodone No 4647 1{tbl} Take 1 U nivers -acetaminop 4-14 04-22 tablet by it y of hen 10-325 00:00: 04:59 mouth [place] mg tablet 00 :00 every 6 Medical (six) Branch hours as needed for Pain (scale 4-6) or Pain (scale 7-10) for up to 7 days. Indication s: acute pain HYDROcodone 2022- No 4647 1{tbl} Take 1 U nivers -acetaminop 4-14 04-22 tablet by it y of hen 10-325 00:00: 04:59 mouth [place] mg tablet 00 :00 every 6 Medical (six) Branch hours as needed for Pain (scale 4-6) or Pain (scale 7-10) for up to 7 days. Indication s: acute pain HYDROcodone 2022- No 4647 1{tbl} Take 1 U nivers -acetaminop 4-14 04-22 tablet by it y of hen 10-325 00:00: 04:59 mouth [place] mg tablet 00 :00 every 6 Medical (six) Branch hours as needed for Pain (scale 4-6) or Pain (scale 7-10) for up to 7 days. Indication s: acute pain HYDROcodone 2022- No 4647 1{tbl} Take 1 U nivers -acetaminop 12-10-22 tablet by it y of hen 10-325 00:00: 04:59 mouth [place] mg tablet 00 :00 every 6 Medical (six) Branch hours as needed for Pain (scale 4-6) or Pain (scale 7-10) for up to 7 days. Indication s: acute pain HYDROcodone 2022- No 4647 1{tbl} Take 1 U nivers -acetaminop 12-1022 tablet by it y of hen 10-325 00:00: 04:59 mouth [place] mg tablet 00 :00 every 6 Medical (six) Branch hours as needed for Pain (scale 4-6) or Pain (scale 7-10) for up to 7 days. Indication s: acute pain insulin 2022- No 18U 18 Units, Univ ers glargine 12-09 Subcutaneo ity of (LANTUS 14:00: 13:49 us, DAILY, [place] U-100) 00 :58 First dose Medical injection (after Branch 18 Units last modificati on) on Tue12/09/22 at 0900, Until Discontinu ed, Routine Sliding No Subcutaneo Uni vers Scale 12-09 us, Q4H, ity of Insulin - 05:00: 13:50 First dose [place] Lispro 00 :39 (after Medical (HumaLOG) + last Branch Fsbg modificati Testing on) on Tue12/09/22 at 0000, Until Discontinu ed, Routine insulin 2022- No 6U 6 Units, Unive rs lispro 12-08 Subcutaneo ity of (human) 17:00: 13:50 us, TID [place] (HumaLOG 00 :19 MEALS, Medical U-100) First dose Branch injection 6 (after Units last modificati on) on Tue12/08/22 at 1200, Until Discontinu ed, Routine insulin 2022- No 16U 16 Units, Univ ers glargine 12-08 Subcutaneo ity of (LANTUS 14:00: 15:49 us, DAILY, [place] U-100) 00 :35 First dose Medical injection (after Branch 16 Units last modificati on) on Tue12/08/22 at 0900, Until Discontinu ed, Routine nystatin Yes Topical, Unive rs (NYSTOP) 4-12 BID, First ity o f powder 03:15: dose on Medical 12/07/22 at Branch 2215, Until Discontinu ed, Routine HYDROcodone Yes 1{tbl} 1 tablet, Univers -acetaminop 4-11 Oral, ity of hen (NORCO) 20:55: Q6HPRN, [place] 10-325 mg 26 Starting Medica l tablet 1 on Tue tablet 12/07/22 at 1555, Until Discontinu ed, Routine, Pain (scale 4-6), Pain (scale 7-10) Sliding 2022- No Subcutaneo Uni vers Scale 12-07 04-13 us, TID ity of Insulin - 17:00: 03:38 MEALS+HS, [place] Lispro 00 :56 First dose Medical (HumaLOG) + (after Branch Fsbg last Testing modificati on) on Tue12/07/22 at 1200, Until Discontinu ed, Routine insulin 2022- No 14U 14 Units, Univ ers glargine 12-07 Subcutaneo ity of (LANTUS 14:00: 15:09 us, DAILY, [place] U-100) 00 :32 First dose Medical injection (after Branch 14 Units last modificati on) on Tue12/07/22 at 0900, Until Discontinu ed, Routine insulin 2022- No 5U 5 Units, Unive rs lispro 12-0712 Subcutaneo ity of (human) 13:00: 15:49 us, TID [place] (HumaLOG 00 :35 MEALS, Medical U-100) First dose Branch injection 5 (after Units last modificati on) on Tue12/07/22 at 0800, Until Discontinu ed, Routine insulin 2022- No 3U 3 Units, Unive rs lispro 12-06 Subcutaneo ity of (human) 22:00: 03:59 us, TID [place] (HumaLOG 00 :58 MEALS, Medical U-100) First dose Branch injection 3 (after Units last modificati on) on Tue12/06/22 at 1700, Until Discontinu ed, Routine insulin No 6U 6 Units, Unive rs glargine 12-06 Subcutaneo ity of (LANTUS 17:15: 17:47 us, ONCE, [place] U-100) 00 :00 1 dose, On Medical injection 6 Tue Branch Units 12/06/22 at 1215, Routine insulin 2022- No 7U 7 Units, Unive rs glargine 12-06 Subcutaneo ity of (LANTUS 14:00: 14:15 us, DAILY, [place] U-100) 00 :09 First dose Medical injection 7 (after Branch Units last modificati on) on Tue12/06/22 at 0900, Until Discontinu ed, Routine ondansetron Yes 4mg 4 mg, Unive rs (ZOFRAN) 12-06 Oral, ity of tablet 4 mg 12:52: Q6HPRN, [place] 51 Starting Medical on Tue12/06/22 at 0752, Until Discontinu ed, Routine, Nausea and Vomiting (N/V) HYDROcodone 2022- No 1{tbl} 1 tablet, Univers -acetaminop 12-06 Oral, ity of hen (NORCO) 12:51: 20:55 Q6HPRN, [place] 10-325 mg 43 :39 Starting Medica l tablet 1 on Tue tablet 12/06/22 at 0751, Until Tue12/07/22 at 1555, Routine, Pain (scale 4-6) morpHINE (2 2022- No 2mg 2 mg, Slow Univers mg/mL) 12-06 IV Push, ity of injection 2 12:51: 20:55 Q4HPRN, [place] mg 23 :38 Starting Medical on Tue Branch 12/06/22 at 0751, Until Tue12/07/22 at 1555, Routine, Pain (scale 7-10) insulin 2022- No 3U 3 Units, Unive rs lispro 12-05 Subcutaneo ity of (human) 22:00: 14:15 us, TID [place] (HumaLOG 00 :09 MEALS, Medical U-100) First dose Branch injection 3 (after Units last modificati on) on Tue12/05/22 at 1700, Until Discontinu ed, Routine insulin 2022- No 6U 6 Units, Unive rs glargine 12-05 Subcutaneo ity of (LANTUS 14:00: 20:24 us, DAILY, [place] U-100) 00 :29 First dose Medical injection 6 (after Branch Units last modificati on) on 12/05/22 at 0900, Until Discontinu ed, Routine Sliding 2022- No Subcutaneo Uni vers Scale 12-04 us, TID ity of Insulin - 17:00: 15:10 MEALS+HS, [place] Lispro 00 :31 First dose Medical (HumaLOG) + (after Branch Fsbg last Testing modificati on) on 12/04/22 at 1200, Until Discontinu ed, Routine insulin Yes 2U 2 Units, Univmarlee s lispro 12-03 Subcutaneo ity of (human) 22:00: us, TID [place] (HumaLOG 00 MEALS, Medical U-100) First dose Branch injection 2 (after Units last modificati on) on Tue12/03/22 at 1700, Until Discontinu ed, Routine insulin 2022- No 2U 2 Units, [facility] lis[facility] 12-03 Subcutaneo ity of (human) 22:00: 20:24 , TID [place] (HumaLOG 00 :29 MEALS, Medical U-100) First dose Branch injection 2 (after Units last modificati on) on Tue12/03/22 at 1700, Until Discontinu ed, Routine piperacilli 2022- No 3.375g 3.375 g, Univers n-tazobacta 12-03 IV ity of m (ZOSYN) 19:38: 19:44 Piggyback, [place] 3.375 g in 12 :00 Q8H ABX, Medic al NaCl 0.9% 12 doses, Branc h (NS) 100 mL First dose MINI-BAG on Tue12/03/22 at 1445, Last dose on Tue12/07/22 at 0645, Administer over 4 Hours, 100 mL
Reas on for Anti-Infec tive: Documented Infection< br>Documen jordan Infection Site: Skin / Soft Tissue
Duration of Therapy: 7 days piperacilli 2022-0 2022- No 3.375g 3.375 g, Univers n-tazobacta 12-03 IV ity of m (ZOSYN) 19:38: 14:40 Piggyback, [place] 3.375 g in 12 :00 Q8H ABX, Medic al NaCl 0.9% 12 doses, Branc h (NS) 100 mL First dose MINI-BAG on Tue12/03/22 at 1445, Last dose on Tue12/07/22 at 0645, Administer over 4 Hours, 100 mL
Reas on for Anti-Infec tive: Documented Infection< br>Documen jordan Infection Site: Skin / Soft Tissue
Duration of Therapy: 7 days NaCl 0.9% Yes 10mL 10 mL, Univer s (NS) 4-07 Slow IV ity of injection 18:26: Push, PRN, [place] 10 mL 52 Starting Medical on Tue Branch 12/03/22 at 1326, Until Discontinu ed, Routine, line maintenanc e lidocaine 0 Yes 5mL 5 mL, Univers 1% (PF) 12-03 Subcutaneo ity of (XYLOCAINE) 18:26: us, PRN, [place] injection 5 52 Starting Medi kia mL on Tue Branch 12/03/22 at 1326, Until Discontinu ed, Routine, Local anesthesia insulin 2022-0 Yes 5U 5 Units, Univer s glargine - Subcutaneo ity o f (LANTUS 17:15: us, BID, [place] U-100) 00 First dose Medical injection 5 on Tue Branch Units 12/03/22 at 1215, Until Discontinu ed, Routine insulin 2022-0 202- No 5U 5 Units, Unive rs glargine 12-03 04-08 Subcutaneo ity of (LANTUS 17:15: 14:35 us, BID, [place] U-100) 00 :23 First dose Medical injection 5 on Fri Branch Units 12/03/22 at 1215, Until Discontinu ed, Routine Sliding Yes Subcutaneo Univ ers Scale 4-07 us, Q4H, ity of Insulin - 03:00: First dose [place] Lispro 00 (after Medical (HumaLOG) + last Branch Fsbg modificati Testing on) on [place] 12/02/22 at 2200, Until Discontinu ed, Routine Sliding 2022- No Subcutaneo Uni vers Scale 4-07 04-08 us, Q4H, ity of Insulin - 03:00: 14:35 First dose [place] Lispro 00 :23 (after Medical (HumaLOG) + last Branch Fsbg modificati Testing on) on [facility] 12/02/22 at 2200, Until Discontinu ed, Routine HYDROcodone 0 Yes 1{tbl} 1 tablet, Univers -acetaminop 4-06 Oral, ity of hen (NORCO) 20:11: Q6HPRN, [place] 10-325 mg 56 Starting Medica l tablet 1 on [facility] Branch tablet 12/02/22 at 1511, Until Discontinu ed, Routine, Pain (scale 7-10) HYDROcodone Yes 1{tbl} 1 tablet, Univers -acetaminop 4-06 Oral, ity of hen (NORCO) 20:11: Q6HPRN, [place] 10-325 mg 56 Starting Medica l tablet 1 on [facility] Branch tablet 12/02/22 at 1511, Until Discontinu ed, Routine, Pain (scale 7-10) HYDROcodone 0 2022- No 1{tbl} 1 tablet, Univers -acetaminop 4-06 04-10 Oral, ity of hen (NORCO) 20:11: 12:53 Q6HPRN, [place] 10-325 mg 56 :03 Starting Medica l tablet 1 on [place] Branch tablet 12/02/22 at 1511, Until 12/06/22 at 0753, Routine, Pain (scale 7-10) D5W 0.9% 0 Yes 1000mL at 5 Univers NaCl (NS) 4-06 mL/hr, ity of IV infusion 17:30: 1,000 mL, [place] 1,000 mL 00 IV Medical Infusion, Branch CONTINUOUS , Starting on [place] 12/02/22 at 1230, Until Discontinu ed, Routine D10W 10 % 2023-0 Yes at 150 Univer s IV infusion 4-06 mL/hr, IV ity of 17:30: Infusion, [place] 00 CONTINUOUS Medical , Starting Branch on [place] 12/02/22 at 1230, Until Discontinu ed, Routine D5W 0.9% 3-0 2023- No 1000mL at 5 Univer s NaCl (NS) 4- 04-07 mL/hr, ity of IV infusion 17:30: 13:22 1,000 mL, [place] 1,000 mL 00 :33 IV Medical Infusion, Branch CONTINUOUS , Starting on [place] 12/02/22 at 1230, Until Tue12/03/22 at 0822, Routine D10W 10 % 3-0 2023- No at 150 Unive rs IV infusion -06 04-07 mL/hr, IV it y of 17:30: 12:21 Infusion, [place] 00 :41 CONTINUOUS Medical , Starting Branch on [place] 12/02/22 at 1230, Until Tue12/03/22 at 0721, Routine NaCl 0.9% 3-0 Yes 10mL 10 mL, Univer s (NS) 4-06 Slow IV ity of injection 17:27: Push, PRN, [place] 10 mL 04 Starting Medical on [place] Branch 12/02/22 at 1227, Until Discontinu ed, Routine, line maintenanc e NaCl 0.9% 3-0 Yes 10mL 10 mL, Univer s (NS) 4-06 Slow IV ity of injection 17:27: Push, PRN, [place] 10 mL 04 Starting Medical on [place] Branch 12/02/22 at 1227, Until Discontinu ed, Routine, line maintenanc e NaCl 0.9% 3-0 Yes 10mL 10 mL, Univer s (NS) 4-06 Slow IV ity of injection 17:27: Push, PRN, [place] 10 mL 04 Starting Medical on [place] Branch 12/02/22 at 1227, Until Discontinu ed, Routine, line maintenanc e lidocaine 2023-0 Yes 5mL 5 mL, Univers 1% (PF) 4-06 Subcutaneo ity of (XYLOCAINE) 17:27: us, PRN, [place] injection 5 03 Starting Medi kia mL on [place] Branch 12/02/22 at 1227, Until Discontinu ed, Routine, Local anesthesia lidocaine 2023-0 Yes 5mL 5 mL, Univers 1% (PF) 4-06 Subcutaneo ity of (XYLOCAINE) 17:27: us, PRN, [place] injection 5 03 Starting Medi kia mL on [place] Branch 12/02/22 at 1227, Until Discontinu ed, Routine, Local anesthesia lidocaine 2023-0 Yes 5mL 5 mL, Univers 1% (PF) 4-06 Subcutaneo ity of (XYLOCAINE) 17:27: us, PRN, [place] injection 5 03 Starting Medi kia mL on [place] Branch 12/02/22 at 1227, Until Discontinu ed, Routine, Local anesthesia ondansetron 2023-0 Yes 4mg 4 mg, Slow Univers (ZOFRAN 4-06 IV Push, ity of (PF)) 17:26: Q6HPRN, [place] injection 4 08 Nausea and Me dical mg Vomiting Branch (N/V), Starting on [place] 12/02/22 at 1226
Do ses of ondansetro n 16 mg and above need to be administer ed via IV piggyback. For Dose >=24mg ECG monitoring is advisable.
ondansetron 2023-0 Yes 4mg 4 mg, Slow Univers (ZOFRAN 4-06 IV Push, ity of (PF)) 17:26: Q6HPRN, [place] injection 4 08 Nausea and Me dical mg Vomiting Branch (N/V), Starting on [place] 12/02/22 at 1226
Do ses of ondansetro n 16 mg and above need to be administer ed via IV piggyback. For Dose >=24mg ECG monitoring is advisable.
ondansetron 2023-0 2023- No 4mg 4 mg, Slow Univers (ZOFRAN 4-06 04-10 IV Push, ity of (PF)) 17:26: 12:53 Q6HPRN, [place] injection 4 08 :03 Nausea and Me dical mg Vomiting Branch (N/V), Starting on [place] 4/6/23 at 1226
Do ses of ondansetro n 16 mg and above need to be administer ed via IV piggyback. For Dose >=24mg ECG monitoring is advisable.
acetaminoph 2022-0 Yes 650mg 650 mg, Un gwendolyn en 4-06 Oral, ity of (TYLENOL) 01:58: Q6HPRN, [place] tablet 650 43 Starting Medic al mg on Tue Branch 12/01/22 at 2057, Until Discontinu ed, Routine, Pain (scale 1-3) acetaminoph 2022-0 Yes 650mg 650 mg, Un gwendolyn en 4-06 Oral, ity of (TYLENOL) 01:58: Q6HPRN, [place] tablet 650 43 Starting Medic al mg on Tue Branch 12/01/22 at 2057, Until Discontinu ed, Routine, Pain (scale 1-3) acetaminoph 2022-0 Yes 650mg 650 mg, Un gwendolyn en -06 Oral, ity of (TYLENOL) 01:58: Q6HPRN, [place] tablet 650 43 Starting Medic al mg on Tue Branch 12/01/22 at 2057, Until Discontinu ed, Routine, Pain (scale 1-3) Sliding 2022-0 Yes Subcutaneo Univ ers Scale 4-06 us, Q4H, ity of Insulin - 01:00: First dose [place] Lispro 00 (after Medical (HumaLOG) + last Branch Fsbg modificati Testing on) on Tue12/01/22 at 1999, Until Discontinu ed, Routine Sliding 2022- No Subcutaneo Uni vers Scale 4-06 04-07 us, Q4H, ity of Insulin - 01:00: 02:57 First dose [place] Lispro 00 :42 (after Medical (HumaLOG) + last Branch Fsbg modificati Testing on) on Tue12/01/22 at 1999, Until Discontinu ed, Routine D10W 10 % 2022- No at 35 Univer s IV infusion 4-05 04-06 mL/hr, IV it y of 23:00: 17:26 Infusion, [place] 00 :41 CONTINUOUS Medical , Starting Branch on Tue12/01/22 at 1800, Until Tue12/02/22 at 1226, Routine magnesium 2022- No 400mg 400 mg, Uni vers oxide 12-01 Oral, ity of (MAG-OX 21:15: 22:08 ONCE, 1 [place] 400) tablet 00 :00 dose, On Medi kia 400 mg Tue12/01/22 Branch at 1615, Routine KCL 20 2022- No 20meq 20 mEq, Univer s mEq/15 mL 12-01 Oral, ity of solution 20 21:15: 21:15 ONCE, 1 [place] mEq 00 :00 dose, On Medical Tue12/01/22 Branch at 1615, Routine D5W 0.9% 2022- No 1000mL at 150 Univ ers NaCl (NS) 12-01-06 mL/hr, ity of IV infusion 17:00: 17:26 1,000 mL, [place] 1,000 mL 00 :41 IV Medical Infusion, Branch CONTINUOUS , Starting on Tue12/01/22 at 1200, Until Tue12/02/22 at 1226, Routine lactated 2022- No 500mL at 999 Unive rs ringers IV 12-01-05 mL/hr, 500 it y of infusion 04:15: 04:08 mL, [place] 500 mL 00 :00 Intravenou Medical s, ONCE, 1 Branch dose, On Tue11/30/22 at 2315, Routine acetaminoph 2022- No 1000mg 1,000 mg, Univers en ADULT 12-01 IV ity of (OFIRMEV) 03:00: 02:59 Infusion, [place] injection 00 :00 at 400 Medical 1,000 mg mL/hr Branch Administer over 15 Minutes, Q8H, 3 doses, First dose (after last reorder) on Tue11/30/22 at 2200, Last dose on Tue12/01/22 at 1400, Routine
Indicatio n: Perioperat [place] Patient acetaminoph 2022- No 1000mg 1,000 mg, Univers en ADULT 12-01 IV ity of (OFIRMEV) 03:00: 21:44 Infusion, [place] injection 00 :00 at 400 Medical 1,000 mg mL/hr Branch Administer over 15 Minutes, Q8H, 3 doses, First dose (after last reorder) on Tue11/30/22 at 2200, Last dose on Tue12/01/22 at 1400, Routine
Indicatio n: Perioperat [place] Patient Sliding 0 Yes Subcutaneo Univ ers Scale 4-04 us, TID ity of Insulin - 22:00: MEALS+HS, [place] Lispro 00 First dose Medical (HumaLOG) + (after Branch Fsbg last Testing modificati on) on Tue11/30/22 at 1700, Until Discontinu ed, Routine heparin 0 Yes 7500U 7,500 Univers (porcine) 4-04 Units, ity of injection 19:00: Subcutaneo [place] 7,500 Units 00 us, Q8H, [facility] First dose Branch (after last modificati on) on Tue11/30/22 at 1400, Until Discontinu ed, Routine heparin 0 Yes 7500U 7,500 Univers (porcine) 4-04 Units, ity of injection 19:00: Subcutaneo [place] 7,500 Units 00 us, Q8H, [facility] First dose Branch (after last modificati on) on Tue11/30/22 at 1400, Until Discontinu ed, Routine heparin 2022-0 Yes 7500U 7,500 Univers (porcine) 4-04 Units, ity of injection 19:00: Subcutaneo [place] 7,500 Units 00 us, Q8H, [facility] First dose Branch (after last modificati on) on Tue11/30/22 at 1400, Until Discontinu ed, Routine heparin 2022-0 Yes 7500U 7,500 Univers (porcine) 4-04 Units, ity of injection 19:00: Subcutaneo [place] 7,500 Units 00 us, Q8H, [facility] First dose Branch (after last modificati on) on Tue11/30/22 at 1400, Until Discontinu ed, Routine insulin 2022-0 Yes 6U 6 Units, Univer s lispro 4-04 Subcutaneo ity of (human) 17:00: us, TID [place] (HumaLOG 00 MEALS, Medical U-100) First dose Branch injection 6 on Tue Units 4/4/23 at 1200, Until Discontinu ed, Routine insulin 2022- No 6U 6 Units, Unive rs lispro 11-30 Subcutaneo ity of (human) 17:00: 04:19 us, TID [place] (HumaLOG 00 :56 MEALS, Medical U-100) First dose Branch injection 6 on Tue Units 11/30/22 at 1200, Until Discontinu ed, Routine Sliding 2022- No Subcutaneo Uni vers Scale 11-30 us, TID ity of Insulin - 17:00: 19:47 MEALS+HS, [place] Lispro 00 :45 First dose Medical (HumaLOG) + on Tue Branch Fsbg 11/30/22 at Testing 1200, Until Discontinu ed, Routine insulin Yes 25U 25 Units, Unive rs glargine 11-30 Subcutaneo ity o f (LANTUS 14:30: us, DAILY, [place] U-100) 00 First dose Medical injection on Tue Branch 25 Units 11/30/22 at 0930, Until Discontinu ed, Routine insulin 2022- No 25U 25 Units, Univ ers glargine 11-30 Subcutaneo ity of (LANTUS 14:30: 04:19 us, DAILY, [place] U-100) 00 :56 First dose Medical injection on Tue Branch 25 Units 11/30/22 at 0930, Until Discontinu ed, Routine ascorbic Yes 500mg 500 mg, Unive rs acid 11-30 Oral, ity of (vitamin C) 14:00: DAILY, [place] (VITAMIN C) 00 First dose Me dical tablet 500 on Tue Branch mg 11/30/22 at 0900, Until Discontinu ed, Routine multivit-ir Yes 1{tbl} 1 tablet, Univers on-FA-calci - Oral, ity of um-mins 14:00: DAILY, [place] (THERA-M) 9 00 First dose Me dical mg iron-400 on Tue Branch mcg tablet 11/30/22 at 1 tablet 0900, Until Discontinu ed, Routine ascorbic Yes 500mg 500 mg, Unive rs acid - Oral, ity of (vitamin C) 14:00: DAILY, [place] (VITAMIN C) 00 First dose Me dical tablet 500 on Tue Branch mg 11/30/22 at 0900, Until Discontinu ed, Routine multivit-ir 2023-0 Yes 1{tbl} 1 tablet, Univers on-FA-calci - Oral, ity of um-mins 14:00: DAILY, [facility] First dose Me dical mg iron-400 on Tue Branch mcg tablet 11/30/22 at 1 tablet 0900, Until Discontinu ed, Routine ascorbic 2023-0 Yes 500mg 500 mg, Unive rs acid -04 Oral, ity of (vitamin C) 14:00: DAILY, [place] (VITAMIN C) 00 First dose Me dical tablet 500 on Tue Branch mg 11/30/22 at 0900, Until Discontinu ed, Routine multivit-ir 2023-0 Yes 1{tbl} 1 tablet, Univers on-FA-calci 11-30 Oral, ity of um-mins 14:00: DAILY, [facility] 9 00 First dose Me dical mg iron-400 on Tue Branch mcg tablet 11/30/22 at 1 tablet 0900, Until Discontinu ed, Routine ascorbic 2023-0 Yes 500mg 500 mg, Unive rs acid - Oral, ity of (vitamin C) 14:00: DAILY, [place] (VITAMIN C) 00 First dose Me dical tablet 500 on Tue Branch mg 11/30/22 at 0900, Until Discontinu ed, Routine multivit-ir 2023-0 Yes 1{tbl} 1 tablet, [facility] onFA-calci 11-30 Oral, ity of um-mins 14:00: DAILY, [place] ([facility] 00 First dose Me dical mg iron-400 on Tue Branch mcg tablet 11/30/22 at 1 tablet 0900, Until Discontinu ed, Routine lactated 2023-0 2023- No 1000mL at 999 Univ ers ringers IV 11-30 04-04 mL/hr, ity of infusion 14:00: 15:21 1,000 mL, [place] 1,000 mL 00 :37 Intravenou Medic al s, ONCE, 1 Branch dose, On Tue11/30/22 at 0900, Routine lactated 2023-0 Yes 1000mL at 125 Unive rs ringers IV 4-04 mL/hr, ity of infusion 13:15: 1,000 mL, [place] 1,000 mL 00 IV Medical Infusion, Branch CONTINUOUS , Starting on Tue11/30/22 at 0815, Until Discontinu ed, Routine lactated 2023-0 2023- No 1000mL at 125 Univ ers ringers IV 4-04 04-05 mL/hr, ity of infusion 13:15: 15:48 1,000 mL, [place] 1,000 mL 00 :35 IV Medical Infusion, Branch CONTINUOUS , Starting on Tue11/30/22 at 0815, Until Tue12/01/22 at 1048, Routine psyllium 2023-0 Yes 1{packe 1 Packet, U nivers husk 4-04 t} Oral, BID, ity of (METAMUCIL 13:00: First dose [place] (SUGAR 00 on Tue Medical FREE)) 3.4 11/30/22 at Bran ch gram oral 0800, powder Until packet 1 Discontinu Packet ed, Routine mupirocin 2023-0 Yes Univers (BACTROBAN 4-04 ity of OINT) 2 % 13:00: [place] skin 00 Medical ointment Branch zinc 2023-0 Yes 50mg 50 mg, Univers sulfate 4-04 Oral, TID, ity of (ORAZINC) 13:00: First dose [place] capsule 50 00 on Tue Medical mg 11/30/22 at Branch 0800, Until Discontinu ed, Routine psyllium 2023-0 Yes 1{packe 1 Packet, U nivers husk 4-04 t} Oral, BID, ity of (METAMUCIL 13:00: First dose [place] (SUGAR 00 on e Medical FREE)) 3.4 11/30/22 at Bran ch gram oral 0800, powder Until packet 1 Discontinu Packet ed, Routine mupirocin 2023-0 Yes Univers (BACTROBAN 4-04 ity of OINT) 2 % 13:00: [place] skin 00 Medical ointment Branch zinc 2023-0 Yes 50mg 50 mg, Univers sulfate 4-04 Oral, TID, ity of (ORAZINC) 13:00: First dose [place] capsule 50 00 on Tue Medical mg 4/4/23 at Branch 0800, Until Discontinu ed, Routine psyllium 2023-0 Yes 1{packe 1 Packet, U nivers husk 4-04 t} Oral, BID, ity of (METAMUCIL 13:00: First dose [place] (SUGAR 00 on [facility] Medical FREE)) 3.4 11/30/22 at Bran ch gram oral 0800, powder Until packet 1 Discontinu Packet ed, Routine mupirocin 2023-0 Yes Univers (BACTROBAN 4-04 ity of OINT) 2 % 13:00: [place] skin 00 Medical ointment Branch zinc 3-0 Yes 50mg 50 mg, Univers sulfate 4-04 Oral, TID, ity of (ORAZINC) 13:00: First dose [place] capsule 50 00 on Tue Medical mg 11/30/22 at Branch 0800, Until Discontinu ed, Routine psyllium 2023-0 Yes 1{packe 1 Packet, U nivers husk 4-04 t} Oral, BID, ity of (METAMUCIL 13:00: First dose [place] (SUGAR 00 on [facility] Medical FREE)) 3.4 11/30/22 at Bran ch gram oral 0800, powder Until packet 1 Discontinu Packet ed, Routine mupirocin 2023-0 Yes Univers (BACTROBAN 4-04 ity of OINT) 2 % 13:00: [place] skin 00 Medical ointment Branch zinc 3-0 Yes 50mg 50 mg, Univers sulfate 4-04 Oral, TID, ity of (ORAZINC) 13:00: First dose [place] capsule 50 00 on Tue Medical mg 11/30/22 at Branch 0800, Until Discontinu ed, Routine methocarbam 2023-0 Yes 1000mg 1,000 mg, Univers oL 4-04 Intravenou ity of (ROBAXIN) 11:00: s, Q8H, [place] injection 00 First dose Medi kia 1,000 mg on Tue Branch 11/30/22 at 0600, Until Discontinu ed, Routine methocarbam 2023-0 2023- No 1000mg 1,000 mg, Univers oL 4-04 04-05 Intravenou ity of (ROBAXIN) 11:00: 15:48 s, Q8H, [place] injection 00 :35 First dose Medi kia 1,000 mg on Tu Branch 11/30/22 at 0600, Until Discontinu ed, Routine heparin 5000U 5,000 Univers (porcine) 11-30 Units, ity of injection 11:00: 13:06 Subcutaneo [place] 5,000 Units 00 :08 us, Q8H, Medi kia First dose Branch on Tue11/30/22 at 0600, Until Discontinu ed, Routine clindamycin No 900mg 900 mg, IV Univers in 5 % 11-30 Piggyback, ity of dextrose 10:15: 02:14 Q8H ABX, [place] (CLEOCIN) 00 :00 20 doses, Medic al 900 mg/50 First dose Bran ch mL IV (after piggyback last RTU 900 mg modificati on) on Tue11/30/22 at 0515, Last dose on Tue12/06/22 at 1315, Administer over 30 Minutes, 50 mL
Reas on for Anti-Infec tive: Documented Infection< br>Documen jordan Infection Site: Skin / Soft Tissue
Duration of Therapy: 7 days
Re stricted use approved by: Necrotizin g fasciitis, necrotizin g skin and soft tissue infection, and [place]ina s gangrene to block toxin production clindamycin No 900mg 900 mg, IV Univers in 5 % 11-30 Piggyback, ity of dextrose 10:15: 14:33 Q8H ABX, [place] (CLEOCIN) 00 :06 20 doses, Medic al 900 mg/50 First dose Bran ch mL IV (after piggyback last RTU 900 mg modificati on) on Tue11/30/22 at 0515, Last dose on Tue12/06/22 at 1315, Administer over 30 Minutes, 50 mL
Reas on for Anti-Infec tive: Documented Infection< br>Documen jordan Infection Site: Skin / Soft Tissue
Duration of Therapy: 7 days
Re stricted use approved by: Necrotizin g fasciitis, necrotizin g skin and soft tissue infection, and [place] gangrene to block toxin production Sliding 2022- No Subcutaneo Uni vers Scale 11-30 us, Q6HA, ity of Insulin-Reg 07:00: 14:26 First dose [place] ular + Fsbg 00 :28 on [facility] Medica l Testing 11/30/22 at Branch 0200, Until Discontinu ed, Routine sodium 2022- No PRN, Univers hypochlorit 11-30 Starting ity of e 0.025% 06:50: 08:11 on [facility] ([facility]) 00 :00 11/30/22 at Medic al solution 0150, Branch Until Tue11/30/22 at 0311, Routine, Intra-op sodium 2022- No PRN, Univers chloride 11-30 Starting ity of 0.9 % 06:02: 08:11 on [facility] irrigation 00 :00 11/30/22 at Medi kia solution 0102, Branch Until Tue11/30/22 at 0311, Intra-op meropenem 2022- No 1000mg 1,000 mg, Univers (MERREM) 11-30 IV ity of 1,000 mg in 05:15: 05:14 [place], [place] NaCl 0.9% 00 :00 Q8H ABX, Medica l (NS) 100 mL 30 doses, Bra nch MINI-BAG First dose on Tue11/30/22 at 0015, Last dose on [place] 12/09/22 at 1615, Administer over 3 Hours, 100 mL
Rest ricted use approved by: [facility]
Alondra banda for Anti-Infec tive: Documented Infection< br>Documen jordan Infection Site: Skin / Soft Tissue< br>Duratio n of Therapy: 7 days meropenem 2022- No 1000mg 1,000 mg, Univers (MERREM) 11-30 IV ity of 1,000 mg in 05:15: 05:14 Daisy, [place] NaCl 0.9% 00 :00 Q8H ABX, Medica l (NS) 100 mL 30 doses, Bra nch MINI-BAG First dose on Tue11/30/22 at 0015, Last dose on Tue12/09/22 at 1615, Administer over 3 Hours, 100 mL
Rest ricted use approved by: [facility] for Anti-Infec tive: Documented Infection< br>Documen jordan Infection Site: Skin / Soft Tissue< br>Duratio n of Therapy: 7 days meropenem 2022-0 2022- No 1000mg 1,000 mg, Univers (MERREM) 11-3007 IV ity of 1,000 mg in 05:15: 19:38 Piggyback, [place] NaCl 0.9% 00 :30 Q8H ABX, Medica l (NS) 100 mL 30 doses, Bra nch MINI-BAG First dose on Tue11/30/22 at 0015, Last dose on Tue12/09/22 at 1615, Administer over 3 Hours, 100 mL
Rest ricted use approved by: [facility] for Anti-Infec tive: Documented Infection< br>Documen jordan Infection Site: Skin / Soft Tissue< br>Duratio n of Therapy: 7 days iron 2022-0 2022- No 300mg 300 mg, IV Unive rs sucrose 11-30 Infusion, ity of (VENOFER) 05:15: 11:07 ONCE, [place] 300 mg in 00 :59 Administer Medi kia NaCl 0.9% over 2.5 Branch (NS) 250 mL Hours, On infusion Tue11/30/22 at 0015, For 1 dose morpHINE Yes Patient Uni vers mg/30 mL -04 Bolus ity of (fixed 04:45: Dose: 2 [place] dose) [employer] 00 mg
Lock Medi kia injection out Branch Interval: 10 Minutes
Basal Rate: 0 mg/hr
F our Hour Dose Limit: 32 mg
Intr avenous, 30 mL, CONTINUOUS , Starting on Tue11/29/22 at 2345, Until Discontinu ed morpHINE Yes Patient Uni vers mg/30 mL 4-04 Bolus ity of (fixed 04:45: Dose: 2 [place] dose) [employer] 00 mg
Lock Medi kia injection out Branch Interval: 10 Minutes
Basal Rate: 0 mg/hr
F our Hour Dose Limit: 32 mg
Intr avenous, 30 mL, CONTINUOUS , Starting on Tue11/29/22 at 2345, Until Discontinu ed morpHINE Yes Patient Uni vers mg/30 mL 11-30 Bolus ity of (fixed 04:45: Dose: 2 [place] dose) [employer] 00 mg
Lock Medi kia injection out Branch Interval: 10 Minutes
Basal Rate: 0 mg/hr
F our Hour Dose Limit: 32 mg
Intr avenous, 30 mL, CONTINUOUS , Starting on Tue11/29/22 at 2345, Until Discontinu ed morpHINE 2022- No Patient Un gwendolyn mg/30 mL 11-3010 Bolus ity of (fixed 04:45: 12:53 Dose: 2 [place] dose) [employer] 00 :03 mg
Lock Medi kia injection out Branch Interval: 10 Minutes
Basal Rate: 0 mg/hr
F our Hour Dose Limit: 32 mg
Intr avenous, 30 mL, CONTINUOUS , Starting on Tue11/29/22 at 2345, Until Tue12/06/22 at 0753 acetaminoph 2022- No 1000mg 1,000 mg, Univers en ADULT 11-30 IV ity of (OFIRMEV) 04:45: 19:44 Infusion, [place] injection 00 :00 at 400 Medical 1,000 mg mL/hr Branch Administer over 15 Minutes, Q8H, 3 doses, First dose (after last modificati on) on Tue11/29/22 at 2345, Last dose on Tue11/30/22 at 1400, Routine
Indicatio n: Perioperat [place] Patient phytonadion 2022- No 10mg IV Unive rs e (VITAMIN 11-30 Piggyback, it y of K) 10 mg in 04:45: 10:18 ONCE, 1 [place] NaCl 0.9% 00 :00 dose, On Medica l (NS) Tue11/29/22 Branch piggyback at 2345, 50 mL proMETHazin Yes 12.5mg 12.5 mg, Univers e 11-30 IV ity of (PHENERGAN) 04:38: Piggyback, [place] 12.5 mg in 14 at 200 Medical NS 50 mL IV mL/hr Branch piggyback Administer (CNR) over 15 Minutes, Q4HPRN, Starting on Tue11/29/22 at 2338, Until Discontinu ed, Routine, Nausea and Vomiting (N/V) proMETHazin 2023-0 Yes 12.5mg 12.5 mg, Univers e 11-30 IV ity of (PHENERGAN) 04:38: Piggyback, [place] 12.5 mg in 14 at 200 Medical NS 50 mL IV mL/hr Branch piggyback Administer (CNR) over 15 Minutes, Q4HPRN, Starting on Tue11/29/22 at 2338, Until Discontinu ed, Routine, Nausea and Vomiting (N/V) proMETHazin 2022-0 Yes 12.5mg 12.5 mg, Univers e 11-30 IV ity of (PHENERGAN) 04:38: Piggyback, [place] 12.5 mg in 14 at 200 Medical NS 50 mL IV mL/hr Branch piggyback Administer (CNR) over 15 Minutes, Q4HPRN, Starting on Tue11/29/22 at 2338, Until Discontinu ed, Routine, Nausea and Vomiting (N/V) proMETHazin 2022-0 2023- No 12.5mg 12.5 mg, Univers e 11-30-10 IV ity of (PHENERGAN) 04:38: 12:53 Piggyback, [place] 12.5 mg in 14 :03 at 200 Medical NS 50 mL IV mL/hr Branch piggyback Administer (CNR) over 15 Minutes, Q4HPRN, Starting on Tue11/29/22 at 2338, Until Tue12/06/22 at 0753, Routine, Nausea and Vomiting (N/V) lactated 2023-0 2023- No 1000mL at 999 Univ ers ringers IV -04 04-05 mL/hr, ity of infusion 04:30: 01:00 1,000 mL, [place] as 1,000 mL 00 :00 Intravenou Medic al s, ONCE, 1 Branch dose, On Tue11/29/22 at 2330, Routine sodium 3-0 Yes Topical, Univers hypochlorit 4-04 DAILY, ity of e 0.25% 04:00: First dose [place] (DAKIN'S 00 on Mon Medical SOLUTION) 11/29/22 at Branc h solution 2300, Until Discontinu ed, Routine sodium 2023-0 Yes Topical, Univers hypochlorit 4-04 DAILY, ity of e 0.25% 04:00: First dose [place] (DAKIN'S 00 on Mon Medical SOLUTION) 11/29/22 at Branc h solution 2300, Until Discontinu ed, Routine sodium 2023-0 Yes Topical, Univers hypochlorit 4-04 DAILY, ity of e 0.25% 04:00: First dose [place] (DAKIN'S 00 on Mon Medical SOLUTION) 11/29/22 at Bran h solution 2300, Until Discontinu ed, Routine sodium 2023-0 Yes Topical, Univers hypochlorit 4-04 DAILY, ity of e 0.25% 04:00: First dose [place] (DAKIN'S 00 on Mon Medical SOLUTION) 11/29/22 at Bran h solution 2300, Until Discontinu ed, Routine hydralAZINE 2023-0 Yes 10mg 10 mg, Univ ers (APRESOLINE 4-04 Slow IV ity o f ) injection 03:53: Push, [place] 10 mg 12 Q6HPRN, Medical Starting Branch on Tue11/29/22 at 2253, Until Discontinu ed, Routine, DBP=>10 0; SBP=>180 hydralAZINE 2023-0 Yes 10mg 10 mg, Univ ers (APRESOLINE 4-04 Slow IV ity o f ) injection 03:53: Push, [place] 10 mg 12 Q6HPRN, Medical Starting Branch on Tue11/29/22 at 2253, Until Discontinu ed, Routine, DBP=>10 0; SBP=>180 hydralAZINE 2023-0 Yes 10mg 10 mg, Univ ers (APRESOLINE 4-04 Slow IV ity o f ) injection 03:53: Push, [place] 10 mg 12 Q6HPRN, Medical Starting Branch on Tue11/29/22 at 2253, Until Discontinu ed, Routine, DBP=>10 0; SBP=>180 hydralAZINE 2023-0 Yes 10mg 10 mg, Univ ers (APRESOLINE 4-04 Slow IV ity o f ) injection 03:53: Push, [place] 10 mg 12 Q6HPRN, Medical Starting Branch on Tue11/29/22 at 2253, Until Discontinu ed, Routine, DBP=>10 0; SBP=>180 pantoprazol 2022-0 2022- No 40mg 40 mg, Uni vers e 11-30-07 Slow IV ity of (PROTONIX) 03:45: 03:44 Push, [place] injection 00 :00 Q24H, 3 Medical 40 mg doses, Branch First dose on Tue11/29/22 at 2245, Last dose on Tue12/01/22 at 2245 pantoprazol 2022-0 2022- No 40mg 40 mg, Uni vers e 11-30 04-06 Slow IV ity of (PROTONIX) 03:45: 03:45 Push, [place] injection 00 :00 Q24H, 3 Medical 40 mg doses, Branch First dose on Tue11/29/22 at 2245, Last dose on Tue12/01/22 at 2245 morpHINE 2 2022-0 Yes Slow IV Univ ers mg/mL LOAD 4- Push, ity of & RESCUE 03:35: Routine [place] INJECTION 11 Medical SYRG Branch morpHINE 2 2022-0 Yes Slow IV Univ ers mg/mL LOAD 4- [place], ity of & RESCUE 03:35: Routine [place] INJECTION 11 Medical SYRG Branch morpHINE 2 2022-0 Yes Slow IV Univ ers mg/mL LOAD 4-04 Push, ity of & RESCUE 03:35: Routine [place] INJECTION 11 Medical SYRG Branch morpHINE 2 2022-0 Yes Slow IV Univ ers mg/mL LOAD 4-04 Push, ity of & RESCUE 03:35: Routine [place] INJECTION 11 Medical SYRG Branch naloxone 0 Yes .1mg 0.1 mg, Univer s (NARCAN) - Slow IV ity of injection 03:34: Push, [place] 0.1 mg 48 SEE-INSTRU Medical CTIONS, Branch Starting on Tue11/29/22 at 2234, Until Discontinu ed, Routine naloxone 2022- Yes .1mg 0.1 mg, Univer s (NARCAN) - Slow IV ity of injection 03:34: Push, [place] 0.1 mg 48 SEE-INSTRU Medical CTIONS, Branch Starting on Tue11/29/22 at 2234, Until Discontinu ed, Routine naloxone 2022-0 Yes .1mg 0.1 mg, Univer s (NARCAN) 4- Slow IV ity of injection 03:34: Push, [place] 0.1 mg 48 SEE-INSTRU [facility] Starting on Tue11/29/22 at 2234, Until Discontinu ed, Routine naloxone 2022-0 Yes .1mg 0.1 mg, Univer s (NARCAN) 4- Slow IV ity of injection 03:34: Push, [place] 0.1 mg 48 SEE-INSTRU [facility] Starting on Tue11/29/22 at 2234, Until Discontinu ed, Routine dextrose 2022-0 Yes 250mL 250 mL, IV Un gwendolyn 10% (D10W) - Infusion, ity of bolus 03:30: PRN - SEE [place] infusion 11 INSTRUCTIO Medic al 250 mL NS, Branch Administer over 60 Minutes, Other, If blood glucose is < or = 70 mg/dL and patient is unable to swallow or has mental status changes, Starting on Tue11/29/22 at 2230
If blood glucose is < or = 70 mg/dL and patient is unable to swallow or has mental status changes (Give glucagon order if patient needs fluid restrictio n): IF IV access available: Dextrose 10%. 1. 125 mL (? bag) of D10W IV infusion - equivalent to 12.5 g dextrose 2. Blood glucose - draw blood glucose 15 minutes after D10W Administra tion. 3. If blood glucose is < 80 mg/dL, repeat.
dextrose 2022-0 Yes 250mL 250 mL, IV Un gwendolyn 10% (D10W) -04 Infusion, ity of bolus 03:30: PRN - SEE [place] infusion 11 INSTRUCTIO Medic al 250 mL NS, Branch Administer over 60 Minutes, Other, If blood glucose is < or = 70 mg/dL and patient is unable to swallow or has mental status changes, Starting on Tue11/29/22 at 2230
If blood glucose is < or = 70 mg/dL and patient is unable to swallow or has mental status changes (Give glucagon order if patient needs fluid restrictio n): IF IV access available: Dextrose 10%. 1. 125 mL (? bag) of D10W IV infusion - equivalent to 12.5 g dextrose 2. Blood glucose - draw blood glucose 15 minutes after D10W Administra tion. 3. If blood glucose is < 80 mg/dL, repeat.
dextrose 2022-0 Yes 250mL 250 mL, IV Un gwendolyn 10% (D10W) 4-04 Infusion, ity of bolus 03:30: PRN - SEE [place] infusion 11 INSTRUCTIO Medic al 250 mL NS, Branch Administer over 60 Minutes, Other, If blood glucose is < or = 70 mg/dL and patient is unable to swallow or has mental status changes, Starting on Tue11/29/22 at 2230
If blood glucose is < or = 70 mg/dL and patient is unable to swallow or has mental status changes (Give glucagon order if patient needs fluid restrictio n): IF IV access available: Dextrose 10%. 1. 125 mL (? bag) of D10W IV infusion - equivalent to 12.5 g dextrose 2. Blood glucose - draw blood glucose 15 minutes after D10W Administra tion. 3. If blood glucose is < 80 mg/dL, repeat.
dextrose 2022-0 Yes 250mL 250 mL, IV Un gwendolyn 10% (D10W) 4-04 Infusion, ity of bolus 03:30: PRN - SEE [place] infusion 11 INSTRUCTIO Medic al 250 mL NS, Branch Administer over 60 Minutes, Other, If blood glucose is < or = 70 mg/dL and patient is unable to swallow or has mental status changes, Starting on Tue11/29/22 at 2230
If blood glucose is < or = 70 mg/dL and patient is unable to swallow or has mental status changes (Give glucagon order if patient needs fluid restrictio n): IF IV access available: Dextrose 10%. 1. 125 mL (? bag) of D10W IV infusion - equivalent to 12.5 g dextrose 2. Blood glucose - draw blood glucose 15 minutes after D10W Administra tion. 3. If blood glucose is < 80 mg/dL, repeat.
glucagon 2023-0 Yes 1mg 1 mg, Univers (GLUCAGEN 4-04 Intramuscu ity of DIAGNOSTIC 03:30: [place], [place]N, [place] KIT) 07 Starting Medical injection 1 on Tue [facility] 11/29/22 at 2230, Until Discontinu ed, ARIELLA, Blood Glucose < or = 70 mg/dL and patient is NPO, unable to swallow or has mental changes. glucagon 2023-0 Yes 1mg 1 mg, Univers (GLUCAGEN 4-04 Intramuscu ity of DIAGNOSTIC 03:30: [place], [place] KIT) 07 Starting Medical injection 1 on Tue [facility] 11/29/22 at 2230, Until Discontinu ed, ARIELLA, Blood Glucose < or = 70 mg/dL and patient is NPO, unable to swallow or has mental changes. glucagon 2023-0 Yes 1mg 1 mg, Univers (GLUCAGEN 11-30 Intramuscu ity of DIAGNOSTIC 03:30: [place]N, [place] KIT) 07 Starting Medical injection 1 on Tue [facility] 11/29/22 at 2230, Until Discontinu ed, ARIELLA, Blood Glucose < or = 70 mg/dL and patient is NPO, unable to swallow or has mental changes. glucagon 3-0 Yes 1mg 1 mg, Univers (GLUCAGEN 04 Intramuscu ity of DIAGNOSTIC 03:30: [place], PRN, [place] KIT) 07 Starting Medical injection 1 on Tue [facility] 11/29/22 at 2230, Until Discontinu ed, ARIELLA, Blood Glucose < or = 70 mg/dL and patient is NPO, unable to swallow or has mental changes. clindamycin 2023-0 2023- No 900mg 900 mg, IV Univers in 5 % 11-30 Piggyback, ity of dextrose 02:15: 04:52 Q8H Angela JACOB (CLEOCIN) 00 :43 21 doses, Medic al 900 mg/50 First dose Bran ch mL IV on Tue piggyback 11/29/22 at RTU 900 mg 2115, Last dose on Tue12/06/22 at 1315, Administer over 30 Minutes, 50 mL
Reas on for Anti-Infec tive: Documented Infection& lt;br>Docu mented Infection Site: Skin / Soft Tissue
Duration of Therapy: 7 days
Re stricted use approved by: ED PROVIDER cholecalcif Yes 1{capsu Take 1 U nivers gayle, 4-03 le} capsule by ity of vitamin D3, 22:35: mouth [place] (VITAMIN 39 daily. Medical D3) 100 mcg Branch (4,000 unit) Cap fish Yes 2{capsu Take 2 Univers oil/borage/ 4-03 le} capsules ity of flax/om3,6, 22:35: by mouth [place] 9 1 (OMEGA 39 daily. Medical 3-6-9 ORAL) Branch cholecalcif Yes 1{capsu Take 1 U nivers gayle, 4-03 le} capsule by ity of vitamin D3, 22:35: mouth [place] (VITAMIN 39 daily. Medical D3) 100 mcg Branch (4,000 unit) Cap fish Yes 2{capsu Take 2 Univers oil/borage/ 4-03 le} capsules ity of flax/om3,6, 22:35: by mouth [place] 9 1 (OMEGA 39 daily. Medical 3-6-9 ORAL) Branch cholecalcif Yes 1{capsu Take 1 U nivers gayle, 4-03 le} capsule by ity of vitamin D3, 22:35: mouth [place] (VITAMIN 39 daily. Medical D3) 100 mcg Branch (4,000 unit) Cap fish Yes 2{capsu Take 2 Univers oil/borage/ 4-03 le} capsules ity of flax/om3,6, 22:35: by mouth [place] 9 1 (OMEGA 39 daily. Medical 3-6-9 ORAL) Branch lactated 2022- No 500mL at 999 Unive rs ringers IV 4-03 04-04 mL/hr, 500 it y of infusion 21:30: 03:35 mL, [place] 500 mL 00 :00 Intravenou Medical s, ONCE, 1 Branch dose, On Tue11/29/22 at 1630, Routine NaCl 0.9% 0 2022- No 1000mL at 999 Uni vers (NS) bolus 4-03 04-03 mL/hr, ity of infusion 21:15: 23:38 1,000 mL, [place] as 1,000 mL 00 :00 IV Medical Infusion, Branch ONCE, 1 dose, On Tue11/29/22 at 1615, ARIELLA insulin No 10U 10 Units, Univ ers regular 11-29 Slow IV ity of human 21:15: 21:03 [facility] [place] (HUMULIN R) 00 :00 ONCE, 1 Medic al injection dose, On Branch 10 Units Tue11/29/22 at 1615, Routine
Indicatio n for insulin: Hyperglyce [place] meropenem 2022- No 1000mg 1,000 mg, Univers (MERREM) 11-29 IV ity of 1,000 mg in 20:43: 23:38 [facility] [place] NaCl 0.9% 00 :00 ONCE, 1 Medical (NS) 100 mL dose, On Bran ch MINI-BAG Tue11/29/22 at 1545, Administer over 30 Minutes, 100 mL
Rest ricted use approved by: [facility]
Alondra son for Anti-Infec tive: Documented Infection< br>Documen jordan Infection Site: Skin / Soft Tissue
Duration of Therapy: 7 days linezolid No 600mg 600 mg, IV Univers in dextrose 11-29 Infusion, it y of 5% (ZYVOX) 20:42: 20:44 Q12H ABX, [place] 600 mg/300 00 :00 20 doses, Medi kia mL iv First dose Branch infusion on Mon 600 mg 11/29/22 at 1545, Last dose on [place] 12/09/22 at 0345, 300 mL
Reas on for Anti-Infec tive: Documented Infection< br>Documen jordan Infection Site: Skin / Soft Tissue
Duration of Therapy: 7 days
Re stricted use approved by: Necrotizin g fasciitis, necrotizin g skin and soft tissue infection, or [place]ina s gangrene linezolid No 600mg 600 mg, IV Univers in dextrose 11-29 Infusion, it y of 5% (ZYVOX) 20:42: 20:44 Q12H ABX, [place] 600 mg/300 00 :00 20 doses, Medi kia mL iv First dose Branch infusion on Mon 600 mg 11/29/22 at 1545, Last dose on Tue12/09/22 at 0345, 300 mL
Reas on for Anti-Infec tive: Documented Infection< br>Documen jordan Infection Site: Skin / Soft Tissue
Duration of Therapy: 7 days
Re stricted use approved by: Necrotizin g fasciitis, necrotizin g skin and soft tissue infection, or [place]ina s gangrene linezolid 2022- No 600mg 600 mg, IV Univers in dextrose 11-29 Infusion, it y of 5% (ZYVOX) 20:42: 19:38 Q12H ABX, [place] 600 mg/300 00 :30 20 doses, Medi kia mL iv First dose Branch infusion on Mon 600 mg 11/29/22 at 1545, Last dose on Tue12/09/22 at 0345, 300 mL
Reas on for Anti-Infec tive: Documented Infection< br>Documen jordan Infection Site: Skin / Soft Tissue
Duration of Therapy: 7 days
Re stricted use approved by: Necrotizin g fasciitis, necrotizin g skin and soft tissue infection, or [place]ina s gangrene piperacilli 2022- No 3.375g 3.375 g, Univers n-tazobacta 11-29 IV ity of m (ZOSYN) 19:30: 20:46 Piggyback, [place] 3.375 g in 00 :00 ONCE, 1 Medica l NaCl 0.9% dose, On Branch (NS) 100 mL Tue11/29/22 MINI-BAG at 1430, Administer over 30 Minutes, 100 mL
R abdiel for Anti-Infec tive: Documented Infection< br>Documen jordan Infection Site: Skin / Soft Tissue
Duration of Therapy: 7 days acetaminoph 2022- No 1000mg 1,000 mg, Univers en 11-29-03 Oral, ity of (TYLENOL) 18:45: 18:40 ONCE, 1 [place] tablet 00 :00 dose, On Medical 1,000 mg Tue11/29/22 Branc h at 1345, ARIELLA cefTRIAXone 2022- No 1000mg 1,000 mg, Univers (ROCEPHIN) 11-29-03 IV ity of 1,000 mg in 18:30: 19:54 Piggyback, [place] NaCl 0.9% 00 :00 ONCE, 1 Medical (NS) 100 mL dose, On Bran ch MINI-BAG Tue11/29/22 at 1330, Administer over 30 Minutes, 100 mL
Reas on for Anti-Infec tive: Documented Infection< br>Documen jordan Infection Site: Urine<br&g t;Duration of Therapy: 7 days ondansetron 2022- No 4mg 4 mg, Slow Univers (ZOFRAN 11-29-03 IV Push, ity of (PF)) 17:45: 17:06 ONCE, 1 [place] injection 4 00 :00 dose, On Medi kia mg Tue11/29/22 Branch at 1245, ARIELLA NaCl 0.9% 2022- No 1000mL at 999 Uni vers (NS) bolus 11-29-03 mL/hr, ity of infusion 17:45: 19:54 1,000 mL, [place] 1,000 mL 00 :00 IV Medical Infusion, Branch ONCE, 1 dose, On Tue11/29/22 at 1245, ARIELLA hydrocortis 2022- No [id number] 100mg Insert 1 Univers one 100 11-26 04-16 Enema into ity o f mg/60 mL 00:00: 04:59 rectum at [place] as enema 00 :00 bedtime Medical for 15 Branch days. hydrocortis 2022- No [id number] 100mg Insert 1 Univers one 100 3- 04-16 Enema into ity o f mg/60 mL 00:00: 04:59 rectum at [place] enema 00 :00 bedtime Medical for 15 Branch days. hydrocortis 2022- No [id number] 100mg Insert 1 Univers one 100 3- 04-16 Enema into ity o f mg/60 mL 00:00: 04:59 rectum at [place] enema 00 :00 bedtime Medical for 15 Branch days. hydrocortis 2022- No [id number] 100mg Insert 1 Univers one 100 3-31 04-14 Enema into ity o f mg/60 mL 00:00: 00:00 rectum at [place] enema 00 :00 bedtime Medical for 15 Branch days. iopamidol 2022- No [id number] 150mL 150 mL, Univers (ISOVUE 30 -30 Intravenou ity o f 370-500 mL) 22:30: 22:06 s, ONCE, 1 [place] injection 00 :00 dose, On Medica l 150 mL [place] Branch 11/25/22 at 1730, Routine ondansetron 2022- No 4mg 4 mg, Slow Univers (ZOFRAN 11-2530 IV Push, ity of (PF)) 21:15: 21:14 ONCE, 1 [place] injection 4 00 :00 dose, On Medi kia mg [place] Branch 11/25/22 at 1615, ARIELLA NaCl 0.9% 2022- No 1000mL at 999 Uni vers (NS) bolus 11-25 mL/hr, ity of infusion 21:00: 00:00 1,000 mL, [place] as 1,000 mL 00 :00 IV Medical Infusion, Branch ONCE, 1 dose, On [place] 11/25/22 at 1600, ARIELLA hydrocortis Yes [id number] 100mg Insert 1 Univers one 100 3-30 Enema into ity of mg/60 mL 00:00: [place]um [place] enema 00 bedtime. Medical Branch hydrocortis Yes [id number] 100mg Insert 1 Univers one 100 3-30 Enema into ity of mg/60 mL 00:00: rectum [place] enema 00 bedtime. Medical Branch metFORMIN Yes [id number] 1000mg Take 1 Univers 1,000 mg 3-15 tablet by ity of tablet 00:00: mouth in [place] 00 the Medical morning. Branch MUST BE SEEN FOR FURTHER REFILLS metFORMIN Yes [id number] 1000mg Take 1 Univers 1,000 mg 3-15 tablet by ity of tablet 00:00: mouth in [place] 00 the Medical morning. Branch MUST BE SEEN FOR FURTHER REFILLS metFORMIN 2023-0 Yes [id number] 1000mg Take 1 Univers 1,000 mg 3-15 tablet by ity of tablet 00:00: mouth in [place] 00 the Medical morning. Branch MUST BE SEEN FOR FURTHER REFILLS metFORMIN 2023-0 Yes [id number] 1000mg Take 1 Univers 1,000 mg 3-15 tablet by ity of tablet 00:00: mouth in [place] 00 the Medical morning. Branch MUST BE SEEN FOR FURTHER REFILLS metFORMIN 2023-0 Yes [id number] 1000mg Take 1 Univers 1,000 mg 3-15 tablet by ity of tablet 00:00: mouth in [place] the Medical morning. Branch MUST BE SEEN FOR FURTHER REFILLS metFORMIN 2023-0 Yes [id number] 1000mg Take 1 Univers 1,000 mg 3-15 tablet by ity of tablet 00:00: mouth in [place] the Medical morning. Branch MUST BE SEEN FOR FURTHER REFILLS metFORMIN 2022-0 Yes [id number] 1000mg Take 1 Univers 1,000 mg 3-15 tablet by ity of tablet 00:00: mouth in [place] the Medical morning. Branch MUST BE SEEN FOR FURTHER REFILLS metFORMIN 3-0 Yes [id number] 1000mg Take 1 Univers 1,000 mg 3-15 tablet by ity of tablet 00:00: mouth in [place] the Medical morning. Branch MUST BE SEEN FOR FURTHER REFILLS metFORMIN 3-0 Yes [id number] 1000mg Take 1 Univers 1,000 mg 3-15 tablet by ity of tablet 00:00: mouth in [place] the Medical morning. Branch MUST BE SEEN FOR FURTHER REFILLS metFORMIN 202-0 202- No [id number] 1000mg Take 1 Univers 1,000 mg 3-15 04-14 tablet by ity o f tablet 00:00: 00:00 mouth in [place] 00 :00 the Medical morning. Branch MUST BE SEEN FOR FURTHER REFILLS triamcinolo 202-0 2022- No [id number] Apply to Univers ne 0.025 % 3- 04-03 area(s) ity o f cream 00:00: 04:59 daily for [place] 00 :00 30 days. Medical Branch triamcinolo 202-0 2022- No [id number] Apply to Univers ne 0.025 % 3-03 04-03 area(s) ity o f cream 00:00: 04:59 daily for [place] 00 :00 30 days. Medical Branch triamcinolo 2022-0 3- No [id number] Apply to Univers ne 0.025 % 3-03 04-03 area(s) ity o f cream 00:00: 04:59 daily for [place] 00 :00 30 days. Medical Branch [facility] 3- No [id number] Apply to Univers ne 0.025 % 3-03 04-03 area(s) ity o f cream 00:00: 04:59 daily for [place] 00 :00 30 days. Medical Branch [facility] 20[facility]-0 2022- No [id number] Apply to Univers ne 0.025 % 3-03 04-03 area(s) ity o f cream 00:00: 04:59 daily for [place] 00 :00 30 days. Medical Branch [facility] 20[facility]-0 2022- No [id number] Apply to Univers ne 0.025 % 3-03 04-03 area(s) ity o f cream 00:00: 04:59 daily for [place] 00 :00 30 days. Medical Branch [facility]- No [id number] Apply to Univers ne 0.025 % 3-03 04-03 area(s) ity o f cream 00:00: 04:59 daily for [place] 00 :00 30 days. Medical Branch [facility] 2022-3- No [id number] Apply to Univers ne 0.025 % 3-03 04-03 area(s) ity o f cream 00:00: 04:59 daily for [place] 00 :00 30 days. Medical Branch [facility] 2022-0 3- No [id number] Apply to Univers ne 0.025 % 3-03 04-03 area(s) ity o f cream 00:00: 04:59 daily for [place] 00 :00 30 days. Medical Branch [facility]- No [id number] Apply to Univers ne 0.025 % 3-03 04-03 area(s) ity o f cream 00:00: 04:59 daily for [place] 00 :00 30 days. Medical Branch [facility] 20[facility]-0 3- No [id number] Apply to Univers ne 0.025 % 3-03 04-03 area(s) ity o f cream 00:00: 04:59 daily for [place] 00 :00 30 days. [facility] No [id number] Apply to Univers ne 0.025 % 10-29- area(s) ity o f cream 00:00: 04:59 daily for [place] 00 :00 30 days. Medical Branch fish Yes 2{capsu Take 2 Univers oil/borage/ 2-24 le} capsules ity of flax/om3,6, 15:38: by mouth [place] 9 1 (OMEGA 34 daily. Medical ORAL) Branch fish Yes 2{capsu Take 2 Univers oil/borage/ 2-24 le} capsules ity of flax/om3,6, 15:38: by mouth [place] 9 1 (OMEGA 34 daily. Medical ORAL) Branch fish Yes 2{capsu Take 2 Univers oil/borage/ 2-24 le} capsules ity of flax/om3,6, 15:38: by mouth [place] 9 1 (OMEGA 34 daily. Medical ORAL) Branch fish Yes 2{capsu Take 2 Univers oil/borage/ 2-24 le} capsules ity of flax/om3,6, 15:38: by mouth [place] 9 1 (OMEGA 34 daily. Medical ORAL) Branch fish Yes 2{capsu Take 2 Univers oil/borage/ 2-24 le} capsules ity of flax/om3,6, 15:38: by mouth [place] 9 1 (OMEGA 34 daily. Medical ORAL) Branch fish Yes 2{capsu Take 2 Univers oil/borage/ 2-24 le} capsules ity of flax/om3,6, 15:38: by mouth [place] 9 1 (OMEGA 34 daily. Medical ORAL) Branch fish Yes 2{capsu Take 2 Univers oil/borage/ 2-24 le} capsules ity of flax/om3,6, 15:38: by mouth [place] 9 1 (OMEGA 34 daily. Medical ORAL) Branch fish Yes 2{capsu Take 2 Univers oil/borage/ 2-24 le} capsules ity of flax/om3,6, 15:38: by mouth [place] 9 1 (OMEGA 34 daily. Medical ORAL) Branch fish Yes 2{capsu Take 2 Univers oil/borage/ 2-24 le} capsules ity of flax/om3,6, 15:38: by mouth [place] 9 1 (OMEGA 34 daily. Medical ORAL) Branch fish Yes 2{capsu Take 2 Univers oil/borage/ 2-24 le} capsules ity of flax/om3,6, 15:38: by mouth [place] 9 1 (OMEGA 34 daily. Medical ORAL) Branch fish Yes 2{capsu Take 2 Univers oil/borage/ 2-24 le} capsules ity of flax/om3,6, 15:38: by mouth [place] 9 1 (OMEGA 34 daily. Medical ORAL) Branch fish Yes 2{capsu Take 2 Univers oil/borage/ 2-24 le} capsules ity of flax/om3,6, 15:38: by mouth [place] 9 1 (OMEGA 34 daily. Medical ORAL) Branch fish Yes 2{capsu Take 2 Univers oil/borage/ 2-24 le} capsules ity of flax/om3,6, 15:38: by mouth [place] 9 1 (OMEGA 34 daily. Medical ORAL) Branch fish Yes 2{capsu Take 2 Univers oil/borage/ 2-24 le} capsules ity of flax/om3,6, 15:38: by mouth [place] 9 1 (OMEGA 34 daily. Medical ORAL) Branch fish Yes 2{capsu Take 2 Univers oil/borage/ 2-24 le} capsules ity of flax/om3,6, 15:38: by mouth [place] 9 1 (OMEGA 34 daily. Medical ORAL) Branch fish Yes 2{capsu Take 2 Univers oil/borage/ 2-24 le} capsules ity of flax/om3,6, 15:38: by mouth [place] 9 1 (OMEGA 34 daily. Medical 3-6-9 ORAL) Branch fish Yes 2{capsu Take 2 Univers oil/borage/ 2-24 le} capsules ity of flax/om3,6, 15:38: by mouth [place] 9 1 (OMEGA 34 daily. Medical 3-6-9 ORAL) Branch fish Yes 2{capsu Take 2 Univers oil/borage/ 2-24 le} capsules ity of flax/om3,6, 15:38: by mouth [place] 9 1 (OMEGA 34 daily. Medical 3-6-9 ORAL) Branch FUROSEMIDE Yes [id number] Take 1 U nivers 20 mg 2-13 tablet by ity of tablet 00:00: mouth once [place] daily Medical Branch DOXAZOSIN 1 2022-0 Yes [id number] 1mg TAKE 1 Univers mg tablet 2-13 TABLET BY ity o f 00:00: MOUTH AT [place] BEDTIME Medical Branch FUROSEMIDE 2022-0 Yes [id number] Take 1 U nivers 20 mg 2-13 tablet by ity of tablet 00:00: mouth once [place] daily Medical Branch DOXAZOSIN 1 2022-0 Yes [id number] 1mg TAKE 1 Univers mg tablet 2-13 TABLET BY ity o f 00:00: MOUTH AT [place] BEDTIME Medical Branch FUROSEMIDE 2022-0 Yes [id number] Take 1 U nivers 20 mg 2-13 tablet by ity of tablet 00:00: mouth once [place] daily Medical Branch DOXAZOSIN 1 2022-0 Yes [id number] 1mg TAKE 1 Univers mg tablet 2-13 TABLET BY ity o f 00:00: MOUTH AT [place] BEDTIME Medical Branch FUROSEMIDE 2022-0 Yes [id number] Take 1 U nivers 20 mg 2-13 tablet by ity of tablet 00:00: mouth once [place] daily Medical Branch DOXAZOSIN 1 2022-0 Yes [id number] 1mg TAKE 1 Univers mg tablet 2-13 TABLET BY ity o f 00:00: MOUTH AT [place] BEDTIME Medical Branch FUROSEMIDE 2022-0 Yes [id number] Take 1 U nivers 20 mg 2-13 tablet by ity of tablet 00:00: mouth once [place] daily Medical Branch DOXAZOSIN 1 2022-0 Yes [id number] 1mg TAKE 1 Univers mg tablet 2-13 TABLET BY ity o f 00:00: MOUTH AT [place] BEDTIME Medical Branch FUROSEMIDE 2023-0 Yes [id number] Take 1 U nivers 20 mg 2-13 tablet by ity of tablet 00:00: mouth once [place] daily Medical Branch DOXAZOSIN 1 3-0 Yes [id number] 1mg TAKE 1 Univers mg tablet 2-13 TABLET BY ity o f 00:00: MOUTH AT [place] BEDTIME Medical Branch FUROSEMIDE 2023-0 Yes [id number] Take 1 U nivers 20 mg 2-13 tablet by ity of tablet 00:00: mouth once [place] daily Medical Branch DOXAZOSIN 1 2022-0 Yes [id number] 1mg TAKE 1 Univers mg tablet 2-13 TABLET BY ity o f 00:00: MOUTH AT [place] BEDTIME Medical Branch FUROSEMIDE 2023-0 Yes [id number] Take 1 U nivers 20 mg 2-13 tablet by ity of tablet 00:00: mouth once [place] daily Medical Branch DOXAZOSIN 1 2022-0 Yes [id number] 1mg TAKE 1 Univers mg tablet 2-13 TABLET BY ity o f 00:00: MOUTH AT [place] BEDTIME Medical Branch FUROSEMIDE 2023-0 Yes [id number] Take 1 U nivers 20 mg 2-13 tablet by ity of tablet 00:00: mouth once [place] daily Medical Branch DOXAZOSIN 1 3-0 Yes [id number] 1mg TAKE 1 Univers mg tablet 2-13 TABLET BY ity o f 00:00: MOUTH AT [place] BEDTIME Medical Branch FUROSEMIDE 2023-0 Yes [id number] Take 1 U nivers 20 mg 2-13 tablet by ity of tablet 00:00: mouth once [place] daily Medical Branch DOXAZOSIN 1 3-0 Yes [id number] 1mg TAKE 1 Univers mg tablet 2-13 TABLET BY ity o f 00:00: MOUTH AT [place] BEDTIME Medical Branch FUROSEMIDE 2023-0 Yes [id number] Take 1 U nivers 20 mg 2-13 tablet by ity of tablet 00:00: mouth once [place] daily Medical Branch FUROSEMIDE 2023-0 Yes [id number] Take 1 U nivers 20 mg 2-13 tablet by ity of tablet 00:00: mouth once [place] daily Medical Branch FUROSEMIDE 2023-0 Yes [id number] Take 1 U nivers 20 mg 2-13 tablet by ity of tablet 00:00: mouth once daily Medical Branch FUROSEMIDE 2023-0 Yes [id number] Take 1 U nivers 20 mg 2-13 tablet by ity of tablet 00:00: mouth once daily Medical Branch FUROSEMIDE 2023-0 Yes [id number] Take 1 U nivers 20 mg 2-13 tablet by ity of tablet 00:00: mouth once daily Medical Branch FUROSEMIDE 2023-0 Yes [id number] Take 1 U nivers 20 mg 2-13 tablet by ity of tablet 00:00: mouth once daily Medical Branch FUROSEMIDE 2023-0 Yes [id number] Take 1 U nivers 20 mg 2-13 tablet by ity of tablet 00:00: mouth once daily Medical Branch FUROSEMIDE 3-0 Yes [id number] Take 1 U nivers 20 mg 2-13 tablet by ity of tablet 00:00: mouth once [place] daily Medical Branch DOXAZOSIN 1 2022-0 Yes [id number] 1mg TAKE 1 Univers mg tablet 2-13 TABLET BY ity o f 00:00: MOUTH AT [place] BEDTIME Medical Branch FUROSEMIDE 2023-0 Yes [id number] Take 1 U nivers 20 mg 2-13 tablet by ity of tablet 00:00: mouth once [place] daily Medical Branch DOXAZOSIN 1 3-0 Yes [id number] 1mg TAKE 1 Univers mg tablet 2-13 TABLET BY ity o f 00:00: MOUTH AT [place] BEDTIME Medical Branch FUROSEMIDE 2023-0 Yes [id number] Take 1 U nivers 20 mg 2-13 tablet by ity of tablet 00:00: mouth once [place] daily Medical Branch DOXAZOSIN 1 3-0 Yes [id number] 1mg TAKE 1 Univers mg tablet 2-13 TABLET BY ity o f 00:00: MOUTH AT [place] BEDTIME Medical Branch FUROSEMIDE 2023-0 Yes [id number] Take 1 U nivers 20 mg 2-13 tablet by ity of tablet 00:00: mouth once [place] daily Medical Branch DOXAZOSIN 1 3-0 Yes [id number] 1mg TAKE 1 Univers mg tablet 2-13 TABLET BY ity o f 00:00: MOUTH AT [place] BEDTIME Medical Branch FUROSEMIDE 2023-0 Yes [id number] Take 1 U nivers 20 mg 2-13 tablet by ity of tablet 00:00: mouth once [place] daily Medical Branch DOXAZOSIN 1 2022-0 Yes [id number] 1mg TAKE 1 Univers mg tablet 2-13 TABLET BY ity o f 00:00: MOUTH AT [place] BEDTIME Medical Branch FUROSEMIDE 2023-0 Yes [id number] Take 1 U nivers 20 mg 2-13 tablet by ity of tablet 00:00: mouth once [place] daily Medical Branch DOXAZOSIN 1 2022-0 Yes [id number] 1mg TAKE 1 Univers mg tablet 2-13 TABLET BY ity o f 00:00: MOUTH AT [place] BEDTIME Medical Branch FUROSEMIDE 2022-0 Yes [id number] Take 1 U nivers 20 mg 2-13 tablet by ity of tablet 00:00: mouth once [place] daily Medical Branch DOXAZOSIN 1 2022-0 Yes [id number] 1mg TAKE 1 Univers mg tablet 2-13 TABLET BY ity o f 00:00: MOUTH AT [place] BEDTIME Medical Branch FUROSEMIDE 2022-0 Yes [id number] Take 1 U nivers 20 mg 2-13 tablet by ity of tablet 00:00: mouth once [place] daily Medical Branch DOXAZOSIN 1 2022-0 Yes [id number] 1mg TAKE 1 Univers mg tablet 2-13 TABLET BY ity o f 00:00: MOUTH AT [place] BEDTIME Medical Branch FUROSEMIDE 3-0 Yes [id number] Take 1 U nivers 20 mg 2-13 tablet by ity of tablet 00:00: mouth once [place] daily Medical Branch DOXAZOSIN 1 2022-0 Yes [id number] 1mg TAKE 1 Univers mg tablet 2-13 TABLET BY ity o f 00:00: MOUTH AT [place] BEDTIME Medical Branch FUROSEMIDE 3-0 Yes [id number] Take 1 U nivers 20 mg 2-13 tablet by ity of tablet 00:00: mouth once [place] daily Medical Branch DOXAZOSIN 1 2022-0 Yes [id number] 1mg TAKE 1 Univers mg tablet 2-13 TABLET BY ity o f 00:00: MOUTH AT [place] BEDTIME [facility] FUROSEMIDE 2023-0 Yes [id number] Take 1 [facility] 20 mg 2-13 tablet by [facility] tablet 00:00: mouth once [place] daily [facility] DOXAZOSIN 1 2022-0 Yes [id number] 1mg TAKE 1 [facility] mg tablet 2-13 TABLET BY [facility] f 00:00: MOUTH AT [place] BEDTIME [facility] FUROSEMIDE 2023-0 Yes [id number] Take 1 [facility] 20 mg 2-13 tablet by [facility] tablet 00:00: mouth once [place] daily [facility] DOXAZOSIN 1 2022-0 Yes [id number] 1mg TAKE 1 [facility] mg tablet 2-13 TABLET BY [facility] f 00:00: MOUTH AT [place] BEDTIME [facility] FUROSEMIDE 3-0 Yes [id number] Take 1 [facility] 20 mg 2-13 tablet by [facility] tablet 00:00: mouth once [place] daily [facility] DOXAZOSIN 1 2022-0 Yes [id number] 1mg TAKE 1 [facility] mg tablet 2-13 TABLET BY [facility] f 00:00: MOUTH AT [place] BEDTIME [facility] FUROSEMIDE 3-0 Yes [id number] Take 1 [facility] 20 mg 2-13 tablet by [facility] tablet 00:00: mouth once [place] daily [facility] DOXAZOSIN 1 2022-0 Yes [id number] 1mg TAKE 1 [facility] mg tablet 2-13 TABLET BY [facility] f 00:00: MOUTH AT [place] BEDTIME [facility] FUROSEMIDE 3-0 Yes [id number] Take 1 [facility] 20 mg 2-13 tablet by [facility] tablet 00:00: mouth once [place] daily [facility] DOXAZOSIN 1 2022-0 Yes [id number] 1mg TAKE 1 [facility] mg tablet 2-13 TABLET BY [facility] f 00:00: MOUTH AT [place] BEDTIME [facility] FUROSEMIDE 3-0 Yes [id number] Take 1 [facility] 20 mg 2-13 tablet by [facility] tablet 00:00: mouth once [place] daily [facility] DOXAZOSIN 1 2022-0 Yes [id number] 1mg TAKE 1 [facility] mg tablet 2-13 TABLET BY [facility] [place] [facility]0 Yes [id number] Take 1 [facility] 20 mg 2-13 tablet by [facility] tablet 00:00: mouth once [place] daily [facility] DOXAZOSIN 1 2022-0 Yes [id number] 1mg TAKE 1 [facility] mg tablet 2-13 TABLET BY [facility] f 00:00: MOUTH AT [place] BEDTIME [facility] FUROSEMIDE 2023-0 Yes [id number] Take 1 [facility] 20 mg 2-13 tablet by [facility] tablet 00:00: mouth once [place] daily [facility] DOXAZOSIN 1 2022-0 Yes [id number] 1mg TAKE 1 [facility] mg tablet 2-13 TABLET BY [facility] f 00:00: MOUTH AT [place] BEDTIME [facility] FUROSEMIDE 2023-0 Yes [id number] Take 1 [facility] 20 mg 2-13 tablet by [facility] tablet 00:00: mouth once [place] daily [facility] DOXAZOSIN 1 3-0 Yes [id number] 1mg TAKE 1 [facility] mg tablet 2-13 TABLET BY [facility] f 00:00: MOUTH AT [place] BEDTIME [facility] FUROSEMIDE 2023-0 Yes [id number] Take 1 [facility] 20 mg 2-13 tablet by [facility] tablet 00:00: mouth once [place] daily [facility] DOXAZOSIN 1 2022-0 Yes [id number] 1mg TAKE 1 [facility] mg tablet 2-13 TABLET BY [facility] f 00:00: MOUTH AT [place] BEDTIME [facility] FUROSEMIDE 2023-0 Yes [id number] Take 1 [facility] 20 mg 2-13 tablet by [facility] tablet 00:00: mouth once [place] daily [facility] DOXAZOSIN 1 2022-0 Yes [id number] 1mg TAKE 1 [facility] mg tablet 2-13 TABLET BY [facility] f 00:00: MOUTH AT [place] BEDTIME [facility] FUROSEMIDE 2023-0 Yes [id number] Take 1 [facility] 20 mg 2-13 tablet by [facility] tablet 00:00: mouth once [place] daily [facility] DOXAZOSIN 1 3-0 Yes [id number] 1mg TAKE 1 [facility] mg tablet 2-13 TABLET BY [facility] f 00:00: MOUTH AT [place] BEDTIME [facility] FUROSEMIDE 2023-0 Yes [id number] Take 1 [facility] 20 mg 2-13 tablet by [facility] tablet 00:00: mouth once [place] daily [facility] DOXAZOSIN 1 3-0 Yes [id number] 1mg TAKE 1 [facility] mg tablet 2-13 TABLET BY [facility] f 00:00: MOUTH AT [place] BEDTIME [facility] FUROSEMIDE 2023-0 Yes [id number] Take 1 [facility] 20 mg 2-13 tablet by [facility] tablet 00:00: mouth once [place] daily [facility] DOXAZOSIN 1 2023-0 Yes [id number] 1mg TAKE 1 [facility] mg tablet 2-13 TABLET BY [facility] f 00:00: MOUTH AT [place] BEDTIME [facility] FUROSEMIDE 2023-0 Yes [id number] Take 1 [facility] 20 mg 2-13 tablet by [facility] tablet 00:00: mouth once [place] daily [facility] DOXAZOSIN 1 2022-0 Yes [id number] 1mg TAKE 1 [facility] mg tablet 2-13 TABLET BY [facility] f 00:00: MOUTH AT [place] BEDTIME [facility] FUROSEMIDE 3-0 Yes [id number] Take 1 [facility] 20 mg 2-13 tablet by [facility] tablet 00:00: mouth once [place] daily [facility] DOXAZOSIN 1 2022-0 Yes [id number] 1mg TAKE 1 [facility] mg tablet 2-13 TABLET BY [facility] f 00:00: MOUTH AT [place] BEDTIME [facility] FUROSEMIDE 3-0 Yes [id number] Take 1 [facility] 20 mg 2-13 tablet by [facility] tablet 00:00: mouth once [place] daily [facility] DOXAZOSIN 1 2022-0 Yes [id number] 1mg TAKE 1 [facility] mg tablet 2-13 TABLET BY [facility] f 00:00: MOUTH AT [place] BEDTIME [facility] FUROSEMIDE 2023-0 Yes [id number] Take 1 [facility] 20 mg 2-13 tablet by [facility] tablet 00:00: mouth once [place] daily [facility] DOXAZOSIN 1 2022-0 Yes [id number] 1mg TAKE 1 [facility] mg tablet 2-13 TABLET BY [facility] f 00:00: MOUTH AT [place] BEDTIME [facility] FUROSEMIDE 3-0 Yes [id number] Take 1 [facility] 20 mg 2-13 tablet by [facility] tablet 00:00: mouth once [place] daily [facility] DOXAZOSIN 1 2022-0 Yes [id number] 1mg TAKE 1 [facility] mg tablet 2-13 TABLET BY [facility] f 00:00: MOUTH AT [place] BEDTIME [facility] FUROSEMIDE 3-0 Yes [id number] Take 1 [facility] 20 mg 2-13 tablet by [facility] tablet 00:00: mouth once [place] daily [facility] DOXAZOSIN 1 2022-0 Yes [id number] 1mg TAKE 1 [facility] mg tablet 2-13 TABLET BY [facility] f 00:00: MOUTH AT [place] BEDTIME [facility] FUROSEMIDE 2023-0 Yes [id number] Take 1 [facility] 20 mg 2-13 tablet by [facility] tablet 00:00: mouth once [place] daily [facility] DOXAZOSIN 1 2022-0 Yes [id number] 1mg TAKE 1 [facility] mg tablet 2-13 TABLET BY [facility] f 00:00: MOUTH AT [place] BEDTIME [facility] FUROSEMIDE 2023-0 Yes [id number] Take 1 [facility] 20 mg 2-13 tablet by [facility] tablet 00:00: mouth once [place] daily [facility] DOXAZOSIN 1 3-0 Yes [id number] 1mg TAKE 1 [facility] mg tablet 2-13 TABLET BY [facility] f 00:00: MOUTH AT [place] BEDTIME [facility] FUROSEMIDE 2023-0 Yes [id number] Take 1 [facility] 20 mg 2-13 tablet by [facility] tablet 00:00: mouth once [place] daily [facility] DOXAZOSIN 1 3-0 Yes [id number] 1mg TAKE 1 [facility] mg tablet 2-13 TABLET BY [facility] f 00:00: MOUTH AT [place] BEDTIME [facility] FUROSEMIDE 2023-0 Yes [id number] Take 1 [facility] 20 mg 2-13 tablet by [facility] tablet 00:00: mouth once [place] daily [facility] DOXAZOSIN 1 3-0 Yes [id number] 1mg TAKE 1 [facility] mg tablet 2-13 TABLET BY [facility] f 00:00: MOUTH AT [place] BEDTIME [facility] FUROSEMIDE 2023-0 Yes [id number] Take 1 [facility] 20 mg 2-13 tablet by [facility] tablet 00:00: mouth once [place] daily [facility] DOXAZOSIN 1 3-0 Yes [id number] 1mg TAKE 1 [facility] mg tablet 2-13 TABLET BY [facility] f 00:00: MOUTH AT [place] BEDTIME [facility] FUROSEMIDE 2023-0 Yes [id number] Take 1 [facility] 20 mg 2-13 tablet by [facility] tablet 00:00: mouth once [place] daily [facility] DOXAZOSIN 1 3-0 Yes [id number] 1mg TAKE 1 [facility] mg tablet 2-13 TABLET BY [facility] f 00:00: MOUTH AT [place] BEDTIME [facility] FUROSEMIDE 2023-0 Yes [id number] Take 1 [facility] 20 mg 2-13 tablet by [facility] tablet 00:00: mouth once [place] daily [facility] DOXAZOSIN 1 3-0 Yes [id number] 1mg TAKE 1 [facility] mg tablet 2-13 TABLET BY [facility] f 00:00: MOUTH AT [place] BEDTIME [facility] FUROSEMIDE 2023-0 Yes [id number] Take 1 [facility] 20 mg 2-13 tablet by [facility] tablet 00:00: mouth once [place] daily [facility] DOXAZOSIN 1 2022-0 Yes [id number] 1mg TAKE 1 [facility] mg tablet 2-13 TABLET BY [facility] f 00:00: MOUTH AT [place] BEDTIME [facility] FUROSEMIDE 2023-0 Yes [id number] Take 1 [facility] 20 mg 2-13 tablet by [facility] tablet 00:00: mouth once [place] daily [facility] DOXAZOSIN 1 2022-0 Yes [id number] 1mg TAKE 1 [facility] mg tablet 2-13 TABLET BY [facility] f 00:00: MOUTH AT [place] BEDTIME [facility] FUROSEMIDE 3-0 Yes [id number] Take 1 [facility] 20 mg 2-13 tablet by [facility] tablet 00:00: mouth once [place] daily [facility] DOXAZOSIN 1 2022-0 Yes [id number] 1mg TAKE 1 [facility] mg tablet 2-13 TABLET BY [facility] [place] [facility] 3-0 Yes [id number] Take 1 [facility] 20 mg 2-13 tablet by [facility] tablet 00:00: mouth once [place] daily [facility] DOXAZOSIN 1 2022-0 Yes [id number] 1mg TAKE 1 [facility] mg tablet 2-13 TABLET BY [facility] f 00:00: MOUTH AT [place] BEDTIME [facility] FUROSEMIDE 3-0 Yes [id number] Take 1 [facility] 20 mg 2-13 tablet by [facility] tablet 00:00: mouth once [place] daily [facility] DOXAZOSIN 1 2022-0 Yes [id number] 1mg TAKE 1 [facility] mg tablet 2-13 TABLET BY [facility] f 00:00: MOUTH AT [place] BEDTIME [facility] FUROSEMIDE 2023-0 Yes [id number] Take 1 [facility] 20 mg 2-13 tablet by [facility] tablet 00:00: mouth once [place] daily [facility] DOXAZOSIN 1 2022-0 Yes [id number] 1mg TAKE 1 [facility] mg tablet 2-13 TABLET BY [facility] f 00:00: MOUTH AT [place] BEDTIME [facility] FUROSEMIDE 2023-0 Yes [id number] Take 1 [facility] 20 mg 2-13 tablet by [facility] tablet 00:00: mouth once [place] daily [facility] DOXAZOSIN 1 2022-0 Yes [id number] 1mg TAKE 1 [facility] mg tablet 2-13 TABLET BY [facility] 00:[facility] [place] [facility] F[facility] 2023-0 Yes [id number] Take 1 [facility] 20 mg 2-13 tablet by [facility] tablet 00:00: mouth once [place] daily [facility] DOXAZOSIN 1 2022-0 Yes [id number] 1mg TAKE 1 [facility] mg tablet 2-13 TABLET BY [facility] o f 00:00: MOUTH AT [place] BEDTIME [facility] FUROSEMIDE 2022-0 Yes [id number] Take 1 [facility] 20 mg 2-13 tablet by [facility] tablet 00:00: mouth once [place] daily [facility] DOXAZOSIN 1 2022-0 Yes [id number] 1mg TAKE 1 [facility] mg tablet 2-13 TABLET BY [facility] o f 00:00: MOUTH AT [place] BEDTIME [facility] FUROSEMIDE 2022-0 Yes [id number] Take 1 [facility] 20 mg 2-13 tablet by [facility] tablet 00:00: mouth once [place] daily [facility] DOXAZOSIN 1 Yes [id number] 1mg TAKE 1 [facility] mg tablet 2-13 TABLET BY [facility] o f 00:00: MOUTH AT [place] BEDTIME [facility] FUROSEMIDE 2022-0 Yes [id number] Take 1 [facility] 20 mg 2-13 tablet by [facility] tablet 00:00: mouth once [place] daily [facility] DOXAZOSIN 1 0 Yes [id number] 1mg TAKE 1 [facility] mg tablet 2-13 TABLET BY [facility] o f 00:00: MOUTH AT [place] BEDTIME [facility] FUROSEMIDE 2022-0 2022- No [id number] Take 1 [facility] 20 mg 2-10 03- tablet by [facility] tablet 00:00: 00:00 mouth once [place] [facility] 00 :00 daily Medical Branch DOXAZOSIN 1 2022-0 2022- No [id number] 1mg TAKE 1 [facility] mg tablet 2-10 03- TABLET BY [facility] of 00:00: 00:00 MOUTH AT [place] 00 :00 BEDTIME Medical Branch DOXAZOSIN 1 2022-0 2022- No [id number] 1mg TAKE 1 [facility] mg tablet 2-10 03- TABLET BY [facility] of 00:00: 00:00 MOUTH AT [place] 00 :00 BEDTIME Medical Branch mupirocin 2 2022-0 2022- No [id number] Apply to [facility] % ointment 10-01 area(s) 2 [facility] of 00:00: 05:59 (two) [place] 00 :00 times Medical daily for Branch 14 days. mupirocin 2 2022-0 3- No [id number] Apply to [facility] % ointment 2-03 02-18 area(s) 2 [facility] of 00:00: 05:59 (two) [place] 00 :00 times Medical daily for Branch 14 days. mupirocin 2 2022-0 2023- No [id number] Apply to [facility] % ointment 2-03 02-18 area(s) 2 [facility] of 00:00: 05:59 (two) [place] 00 :00 times Medical daily for Branch 14 days. mupirocin 2 2022-0 2023- No [id number] Apply to [facility] % ointment 2-03 02-18 area(s) 2 [facility] of 00:00: 05:59 (two) [place] 00 :00 times Medical daily for Branch 14 days. mupirocin 2 2022-0 2023- No [id number] Apply to [facility] % ointment 2-03 02-18 area(s) 2 [facility] of 00:00: 05:59 (two) [place] 00 :00 times Medical daily for Branch 14 days. mupirocin 2 2022-0 2023- No [id number] Apply to [facility] % ointment 2-03 02-18 area(s) 2 [facility] of 00:00: 05:59 (two) [place] 00 :00 times Medical daily for Branch 14 days. mupirocin 2 2022-0 3- No [id number] Apply to [facility] % ointment 2-03 02-18 area(s) 2 [facility] of 00:00: 05:59 (two) [place] 00 :00 times Medical daily for Branch 14 days. mupirocin 2 2022-0 3- No [id number] Apply to [facility] % ointment 2-03 02-18 area(s) 2 [facility] of 00:00: 05:59 (two) [place] 00 :00 times Medical daily for Branch 14 days. mupirocin 2 2022-0 2023- No [id number] Apply to [facility] % ointment 2-03 02-18 area(s) 2 [facility] of 00:00: 05:59 (two) [place] 00 :00 times Medical daily for Branch 14 days. mupirocin 2 2023-0 2023- No [id number] Apply to [facility] % ointment 10-01 area(s) 2 [facility] of 00:00: 05:59 (two) [place] 00 :00 times Medical daily for Branch 14 days. linezolid 2022-2022- No [id number] 600mg Take 1 [facility] 600 mg 1-30 02-14 tablet by [facility] tablet 00:00: 05:59 mouth [place] 00 :00 every 12 Medical (twelve) Branch hours for 14 days. linezolid 2022-2022- No [id number] 600mg Take 1 [facility] 600 mg 1-30 02-14 tablet by [facility] of tablet 00:00: 05:59 mouth [place] 00 :00 every 12 Medical (twelve) Branch hours for 14 days. linezolid 2022-2022- No [id number] 600mg Take 1 [facility] 600 mg 1-30 02-14 tablet by [facility] of tablet 00:00: 05:59 mouth [place] 00 :00 every 12 Medical (twelve) Branch hours for 14 days. linezolid 2022-2022- No [id number] 600mg Take 1 [facility] 600 mg 1-30 02-14 tablet by [facility] of tablet 00:00: 05:59 mouth [place] 00 :00 every 12 Medical (twelve) Branch hours for 14 days. linezolid 2022-2022- No [id number] 600mg Take 1 [facility] 600 mg 1-30 02-14 tablet by [facility] of tablet 00:00: 05:59 mouth [place] 00 :00 every 12 Medical (twelve) Branch hours for 14 days. linezolid 2022-2022- No [id number] 600mg Take 1 [facility] 600 mg 1-30 02-14 tablet by [facility] of tablet 00:00: 05:59 mouth [place] 00 :00 every 12 Medical (twelve) Branch hours for 14 days. linezolid 2022-0 2022- No [id number] 600mg Take 1 [facility] 600 mg 1-30 02-14 tablet by [facility] of tablet 00:00: 05:59 mouth [place] 00 :00 every 12 Medical (twelve) Branch hours for 14 days. linezolid 2022-0 2022- No [id number] 600mg Take 1 [facility] 600 mg 1-30 02-14 tablet by it[facility] of tablet 00:00: 05:59 mouth [place] 00 :00 every 12 Medical (twelve) Branch hours for 14 days. foLIC acid 2023-0 Yes [id number] 1mg Take 1 [facility] 1 mg tablet 1-18 tablet by it[facility] of 00:00: mouth in [place] 00 the Medical morning. Branch foLIC acid 2023-0 Yes [id number] 1mg Take 1 [facility] 1 mg tablet 1-18 tablet by ity of 00:00: mouth in [place] 00 the Medical morning. Branch foLIC acid 2023-0 Yes [id number] 1mg Take 1 [facility] 1 mg tablet 1-18 tablet by [facility] of 00:00: mouth in [place] 00 the Medical morning. Branch foLIC acid 2023-0 Yes [id number] 1mg Take 1 [facility] 1 mg tablet 1-18 tablet by [facility] of 00:00: mouth in [place] 00 the Medical morning. Branch foLIC acid 2023-0 Yes [id number] 1mg Take 1 [facility] 1 mg tablet 1-18 tablet by [facility] of 00:00: mouth in [place] 00 the Medical morning. Branch foLIC acid 2023-0 Yes [id number] 1mg Take 1 [facility] 1 mg tablet 1-18 tablet by [facility] of 00:00: mouth in [place] the Medical morning. Branch foLIC acid 2023-0 Yes [id number] 1mg Take 1 [facility] 1 mg tablet 1-18 tablet by [facility] of 00:00: mouth in [place] the Medical morning. Branch foLIC acid 2023-0 Yes [id number] 1mg Take 1 [facility] 1 mg tablet 1-18 tablet by [facility] of 00:00: mouth in [place] the Medical morning. Branch foLIC acid 2023-0 Yes [id number] 1mg Take 1 [facility] 1 mg tablet 1-18 tablet by [facility] of 00:00: mouth in [place] the Medical morning. Branch foLIC acid 2023-0 Yes [id number] 1mg Take 1 [facility] 1 mg tablet 1-18 tablet by [facility] of 00:00: mouth in [place] 00 the Medical morning. Branch foLIC acid 2023-0 Yes [id number] 1mg Take 1 [facility] 1 mg tablet 1-18 tablet by [facility] of 00:00: mouth in [place] 00 the Medical morning. Branch foLIC acid 2023-0 Yes [id number] 1mg Take 1 [facility] 1 mg tablet 1-18 tablet by [facility] of 00:00: mouth in [place] 00 the Medical morning. Branch foLIC acid 2023-0 Yes [id number] 1mg Take 1 [facility] 1 mg tablet 1-18 tablet by [facility] of 00:00: mouth in [place] 00 the Medical morning. Branch foLIC acid 2023-0 Yes [id number] 1mg Take 1 [facility] 1 mg tablet 1-18 tablet by [facility] of 00:00: mouth in [place] 00 the Medical morning. Branch foLIC acid 2023-0 Yes [id number] 1mg Take 1 [facility] 1 mg tablet 1-18 tablet by [facility] of 00:00: mouth in [place] 00 the Medical morning. Branch foLIC acid 2023-0 Yes [id number] 1mg Take 1 [facility] 1 mg tablet 1-18 tablet by [facility] of 00:00: mouth in [place] 00 the Medical morning. Branch foLIC acid 2023-0 Yes [id number] 1mg Take 1 [facility] 1 mg tablet 1-18 tablet by [facility] of 00:00: mouth in [place] the Medical morning. Branch foLIC acid 2023-0 Yes [id number] 1mg Take 1 [facility] 1 mg tablet 1-18 tablet by [facility] of 00:00: mouth in [place] the Medical morning. Branch foLIC acid 2023-0 Yes [id number] 1mg Take 1 [facility] 1 mg tablet 1-18 tablet by [facility] of 00:00: mouth in [place] the Medical morning. Branch foLIC acid 2023-0 Yes [id number] 1mg Take 1 [facility] 1 mg tablet 1-18 tablet by [facility] of 00:00: mouth in [place] the Medical morning. Branch foLIC acid 2023-0 Yes [id number] 1mg Take 1 [facility] 1 mg tablet 1-18 tablet by [facility] of 00:00: mouth in [place] the Medical morning. Branch foLIC acid 2023-0 Yes [id number] 1mg Take 1 [facility] 1 mg tablet 1-18 tablet by [facility] of 00:00: mouth in [place] 00 the Medical morning. Branch foLIC acid 2023-0 Yes [id number] 1mg Take 1 [facility] 1 mg tablet 1-18 tablet by [facility]y of 00:00: mouth in [place] 00 the Medical morning. Branch foLIC acid 2023-0 Yes [id number] 1mg Take 1 [facility] 1 mg tablet 1-18 tablet by [facility] of 00:00: mouth in [place] 00 the Medical morning. Branch foLIC acid 2023-0 Yes [id number] 1mg Take 1 [facility] 1 mg tablet 1-18 tablet by [facility] of 00:00: mouth in [place] 00 the Medical morning. Branch foLIC acid 2023-0 Yes [id number] 1mg Take 1 [facility] 1 mg tablet 1-18 tablet by [facility] of 00:00: mouth in [place] 00 the Medical morning. Branch foLIC acid 2023-0 Yes [id number] 1mg Take 1 [facility] 1 mg tablet 1-18 tablet by [facility] of 00:00: mouth in [place] 00 the Medical morning. Branch foLIC acid 2023-0 Yes [id number] 1mg Take 1 [facility] 1 mg tablet 1-18 tablet by [facility] of 00:00: mouth in [place] 00 the Medical morning. Branch foLIC acid 2023-0 Yes [id number] 1mg Take 1 [facility] 1 mg tablet 1-18 tablet by [facility]y of 00:00: mouth in [place] the Medical morning. Branch foLIC acid 2023-0 Yes [id number] 1mg Take 1 [facility] 1 mg tablet 1-18 tablet by [facility]y of 00:00: mouth in [place] the Medical morning. Branch foLIC acid 2023-0 Yes [id number] 1mg Take 1 [facility] 1 mg tablet 1-18 tablet by [facility] of 00:00: mouth in [place] the Medical morning. Branch foLIC acid 2023-0 Yes [id number] 1mg Take 1 [facility] 1 mg tablet 1-18 tablet by [facility] of 00:00: mouth in [place] the Medical morning. Branch foLIC acid 2023-0 Yes [id number] 1mg Take 1 [facility] 1 mg tablet 1-18 tablet by [facility] of 00:00: mouth in [place] the Medical morning. Branch foLIC acid 2023-0 Yes [id number] 1mg Take 1 [facility] 1 mg tablet 1-18 tablet by [facility] of 00:00: mouth in [place] the Medical morning. Branch foLIC acid 2023-0 Yes [id number] 1mg Take 1 [facility] 1 mg tablet 1-18 tablet by [facility] of 00:00: mouth in [place] 00 the Medical morning. Branch foLIC acid 2023-0 Yes [id number] 1mg Take 1 [facility] 1 mg tablet 1-18 tablet by [facility] of 00:00: mouth in [place] 00 the Medical morning. Branch foLIC acid 2023-0 Yes [id number] 1mg Take 1 [facility] 1 mg tablet 1-18 tablet by it[facility] of 00:00: mouth in [place] 00 the Medical morning. Branch foLIC acid 2023-0 Yes [id number] 1mg Take 1 [facility] 1 mg tablet 1-18 tablet by ity of 00:00: mouth in [place] 00 the Medical morning. Branch foLIC acid 2023-0 Yes [id number] 1mg Take 1 [facility] 1 mg tablet 1-18 tablet by ity of 00:00: mouth in [place] 00 the Medical morning. Branch foLIC acid 2023-0 Yes [id number] 1mg Take 1 [facility] 1 mg tablet 1-18 tablet by ity of 00:00: mouth in [place] 00 the Medical morning. Branch foLIC acid 2023-0 Yes [id number] 1mg Take 1 [facility] 1 mg tablet 1-18 tablet by [facility]y of 00:00: mouth in [place] 00 the Medical morning. Branch foLIC acid 2023-0 Yes [id number] 1mg Take 1 [facility] 1 mg tablet 1-18 tablet by [facility] of 00:00: mouth in [place] the Medical morning. Branch foLIC acid 2023-0 Yes [id number] 1mg Take 1 [facility] 1 mg tablet 1-18 tablet by [facility] of 00:00: mouth in [place] the Medical morning. Branch foLIC acid 2023-0 Yes [id number] 1mg Take 1 [facility] 1 mg tablet 1-18 tablet by [facility] of 00:00: mouth in [place] the Medical morning. Branch foLIC acid 2023-0 Yes [id number] 1mg Take 1 [facility] 1 mg tablet 1-18 tablet by [facility] of 00:00: mouth in [place] the Medical morning. Branch foLIC acid 2023-0 Yes [id number] 1mg Take 1 [facility] 1 mg tablet 1-18 tablet by [facility] of 00:00: mouth in [place] the Medical morning. Branch foLIC acid 2023-0 Yes [id number] 1mg Take 1 [facility] 1 mg tablet 1-18 tablet by [facility]y of 00:00: mouth in [place] 00 the Medical morning. Branch foLIC acid 2023-0 Yes [id number] 1mg Take 1 [facility] 1 mg tablet 1-18 tablet by [facility]y of 00:00: mouth in [place] 00 the Medical morning. Branch foLIC acid 2023-0 Yes [id number] 1mg Take 1 [facility] 1 mg tablet 1-18 tablet by [facility]y of 00:00: mouth in [place] 00 the Medical morning. Branch foLIC acid 2023-0 Yes [id number] 1mg Take 1 [facility] 1 mg tablet 1-18 tablet by ity of 00:00: mouth in [place] 00 the Medical morning. Branch foLIC acid 2023-0 Yes [id number] 1mg Take 1 [facility] 1 mg tablet 1-18 tablet by ity of 00:00: mouth in [place] 00 the Medical morning. Branch foLIC acid 2023-0 Yes [id number] 1mg Take 1 [facility] 1 mg tablet 1-18 tablet by [facility]y of 00:00: mouth in [place] 00 the Medical morning. Branch foLIC acid 2023-0 Yes [id number] 1mg Take 1 [facility] 1 mg tablet 1-18 tablet by ity of 00:00: mouth in [place] 00 the Medical morning. Branch foLIC acid 2023-0 Yes [id number] 1mg Take 1 [facility] 1 mg tablet 1-18 tablet by ity of 00:00: mouth in [place] the Medical morning. Branch foLIC acid 2023-0 Yes [id number] 1mg Take 1 [facility] 1 mg tablet 1-18 tablet by ity of 00:00: mouth in [place] the Medical morning. Branch foLIC acid 2023-0 Yes [id number] 1mg Take 1 [facility] 1 mg tablet 1-18 tablet by ity of 00:00: mouth in [place] the Medical morning. Branch foLIC acid 2023-0 Yes [id number] 1mg Take 1 [facility] 1 mg tablet 1-18 tablet by ity of 00:00: mouth in [place] the Medical morning. Branch foLIC acid 2023-0 Yes [id number] 1mg Take 1 [facility] 1 mg tablet 1-18 tablet by ity of 00:00: mouth in [place] the Medical morning. Branch foLIC acid 2023-0 Yes [id number] 1mg Take 1 [facility] 1 mg tablet 1-18 tablet by ity of 00:00: mouth in [place] the Medical morning. Branch foLIC acid 2023-0 Yes [id number] 1mg Take 1 [facility] 1 mg tablet 1-18 tablet by ity of 00:00: mouth in [place] 00 the Medical morning. Branch foLIC acid 2023-0 Yes [id number] 1mg Take 1 [facility] 1 mg tablet 1-18 tablet by ity of 00:00: mouth in [place] 00 the Medical morning. Branch foLIC acid 2023-0 Yes [id number] 1mg Take 1 [facility] 1 mg tablet 1-18 tablet by ity of 00:00: mouth in [place] 00 the Medical morning. Branch foLIC acid 2023-0 Yes [id number] 1mg Take 1 [facility] 1 mg tablet 1-18 tablet by ity of 00:00: mouth in [place] 00 the Medical morning. Branch foLIC acid 2023-0 Yes [id number] 1mg Take 1 [facility] 1 mg tablet 1-18 tablet by ity of 00:00: mouth in [place] 00 the Medical morning. Branch foLIC acid 2023-0 Yes [id number] 1mg Take 1 [facility] 1 mg tablet 1-18 tablet by ity of 00:00: mouth in [place] 00 the Medical morning. Branch foLIC acid 2023-0 Yes [id number] 1mg Take 1 [facility] 1 mg tablet 1-18 tablet by ity of 00:00: mouth in [place] 00 the Medical morning. Branch foLIC acid 2023-0 Yes [id number] 1mg Take 1 [facility] 1 mg tablet 1-18 tablet by ity of 00:00: mouth in [place] the Medical morning. Branch foLIC acid 2023-0 Yes [id number] 1mg Take 1 [facility] 1 mg tablet 1-18 tablet by ity of 00:00: mouth in [place] the Medical morning. Branch foLIC acid 2023-0 Yes [id number] 1mg Take 1 [facility] 1 mg tablet 1-18 tablet by [facility]y of 00:00: mouth in [place] the Medical morning. Branch foLIC acid 2023-0 Yes [id number] 1mg Take 1 [facility] 1 mg tablet 1-18 tablet by [facility] of 00:00: mouth in [place] the Medical morning. Branch foLIC acid 2023-0 Yes [id number] 1mg Take 1 [facility] 1 mg tablet 1-18 tablet by [facility] of 00:00: mouth in [place] the Medical morning. Branch foLIC acid 2023-0 Yes [id number] 1mg Take 1 [facility] 1 mg tablet 1-18 tablet by [facility] of 00:00: mouth in [place] 00 the Medical morning. Branch foLIC acid 2023-0 Yes [id number] 1mg Take 1 [facility] 1 mg tablet 1-18 tablet by [facility] of 00:00: mouth in [place] 00 the Medical morning. Branch foLIC acid 2023-0 Yes [id number] 1mg Take 1 [facility] 1 mg tablet 1-18 tablet by [facility] of 00:00: mouth in [place] 00 the Medical morning. Branch foLIC acid 2023-0 Yes [id number] 1mg Take 1 [facility] 1 mg tablet 1-18 tablet by ity of 00:00: mouth in [place] 00 the Medical morning. Branch foLIC acid 2023-0 Yes [id number] 1mg Take 1 [facility] 1 mg tablet 1-18 tablet by ity of 00:00: mouth in [place] the Medical morning. Branch foLIC acid 2023-0 Yes [id number] 1mg Take 1 [facility] 1 mg tablet 1-18 tablet by ity of 00:00: mouth in [place] the Medical morning. Branch foLIC acid 2023-0 Yes [id number] 1mg Take 1 [facility] 1 mg tablet 1-18 tablet by ity of 00:00: mouth in [place] the Medical morning. Branch foLIC acid 2023-0 Yes [id number] 1mg Take 1 [facility] 1 mg tablet 1-18 tablet by ity of 00:00: mouth in [place] the Medical morning. Branch foLIC acid 2023-0 Yes [id number] 1mg Take 1 [facility] 1 mg tablet 1-18 tablet by ity of 00:00: mouth in [place] the Medical morning. Branch foLIC acid 2023-0 Yes [id number] 1mg Take 1 [facility] 1 mg tablet 1-18 tablet by ity of 00:00: mouth in [place] the Medical morning. Branch foLIC acid 2023-0 Yes [id number] 1mg Take 1 [facility] 1 mg tablet 1-18 tablet by ity of 00:00: mouth in [place] the Medical morning. Branch foLIC acid 2023-0 Yes [id number] 1mg Take 1 [facility] 1 mg tablet 1-18 tablet by ity of 00:00: mouth in [place] the Medical morning. Branch foLIC acid 2023-0 Yes [id number] 1mg Take 1 [facility] 1 mg tablet 1-18 tablet by ity of 00:00: mouth in [place] the Medical morning. Branch foLIC acid 2023-0 Yes [id number] 1mg Take 1 [facility] 1 mg tablet 1-18 tablet by ity of 00:00: mouth in [place] the Medical morning. Branch foLIC acid 2023-0 Yes [id number] 1mg Take 1 [facility] 1 mg tablet 1-18 tablet by ity of 00:00: mouth in [place] 00 the Medical morning. Branch amoxicillin 3-0 2023- No [id number] 1{tbl} Take 1 [facility] -clavulanat 1-13 24 tablet by it y of e 875-125 00:00: 05:59 mouth in [place] as mg per 00 :00 the Medical tablet morning Branch and 1 tablet in the evening. Do all this for 10 days. amoxicillin 2022- No [id number] 1{tbl} Take 1 [facility] -clavulanat 09-1024 tablet by it y of e 875-125 00:00: 05:59 mouth in [place] as mg per 00 :00 the Medical tablet morning Branch and 1 tablet in the evening. Do all this for 10 days. amoxicillin 2022- No [id number] 1{tbl} Take 1 [facility] -clavulanat 09-10 tablet by it y of e 875-125 00:00: 05:59 mouth in [place] as mg per 00 :00 the Medical tablet morning Branch and 1 tablet in the evening. Do all this for 10 days. amoxicillin 2022-2022- No [id number] 1{tbl} Take 1 [facility] -clavulanat 09-10 tablet by it y of e 875-125 00:00: 05:59 mouth in [place] as mg per 00 :00 the Medical tablet morning Branch and 1 tablet in the evening. Do all this for 10 days. amoxicillin 2022-2022- No [id number] 1{tbl} Take 1 [facility] -clavulanat 09-10 tablet by it y of e 875-125 00:00: 05:59 mouth in [place] as mg per 00 :00 the Medical tablet morning Branch and 1 tablet in the evening. Do all this for 10 days. amoxicillin 2022- No [id number] 1{tbl} Take 1 [facility] -clavulanat 09-10 tablet by it y of e 875-125 00:00: 05:59 mouth in [place] as mg per 00 :00 the Medical tablet morning Branch and 1 tablet in the evening. Do all this for 10 days. triamcinolo 2022- No [id number] Apply to [facility] ne 0.025 % 09-07 area(s) ity o f cream 00:00: 05:59 daily for [place] 00 :00 30 days. Medical Branch triamcinolo 2022- No [id number] Apply to [facility] ne 0.025 % 1-10 02-10 area(s) ity o f cream 00:00: 05:59 daily for [place] 00 :00 30 days. Medical Branch triamcinolo 2022-0 3- No [id number] Apply to [facility] ne 0.025 % 1-10 02-10 area(s) ity o f cream 00:00: 05:59 daily for [place] 00 :00 30 days. Medical Branch triamcinolo 2022-0 3- No [id number] Apply to [facility] ne 0.025 % 1-10 02-10 area(s) ity o f cream 00:00: 05:59 daily for [place] 00 :00 30 days. Medical Branch triamcinolo 2022-0 3- No [id number] Apply to [facility] ne 0.025 % 1-10 02-10 area(s) ity o f cream 00:00: 05:59 daily for [place] 00 :00 30 days. Medical Branch triamcinolo 2022-0 3- No [id number] Apply to [facility] ne 0.025 % 1-10 02-10 area(s) ity o f cream 00:00: 05:59 daily for [place] 00 :00 30 days. Medical Branch triamcinolo 0 3- No [id number] Apply to [facility] ne 0.025 % 1-10 02-10 area(s) ity o f cream 00:00: 05:59 daily for [place] 00 :00 30 days. Medical Branch triamcinolo 0 3- No [id number] Apply to [facility] ne 0.025 % 1-10 02-10 area(s) ity o f cream 00:00: 05:59 daily for [place] 00 :00 30 days. Medical Branch triamcinolo 2022-0 3- No [id number] Apply to [facility] ne 0.025 % 1-10 02-10 area(s) ity o f cream 00:00: 05:59 daily for [place] 00 :00 30 days. Medical Branch triamcinolo 2022-0 3- No [id number] Apply to [facility] ne 0.025 % 1-10 02-10 area(s) ity o f cream 00:00: 05:59 daily for [place] 00 :00 30 days. Medical Branch triamcinolo 2022-0 3- No [id number] Apply to [facility] ne 0.025 % 1-10 02-10 area(s) ity o f cream 00:00: 05:59 daily for [place] 00 :00 30 days. Medical Branch triamcinolo 2022-0 2022- No [id number] Apply to [facility] ne 0.025 % 1-10 02-10 area(s) ity o f cream 00:00: 05:59 daily for [place] 00 :00 30 days. Medical Branch triamcinolo 2022-0 3- No [id number] Apply to [facility] ne 0.025 % 1-10 02-10 area(s) ity o f cream 00:00: 05:59 daily for [place] 00 :00 30 days. Medical Branch triamcinolo 2022-0 3- No [id number] Apply to [facility] ne 0.025 % 1-10 02-10 area(s) ity o f cream 00:00: 05:59 daily for [place] 00 :00 30 days. [facility]- No [id number] Apply to [facility] ne 0.025 % 1-10 02-10 area(s) ity o f cream 00:00: 05:59 daily for [place] 00 :00 30 days. Medical Branch triamcinolo 2022-0 3- No [id number] Apply to [facility] ne 0.025 % 1-10 02-10 area(s) ity o f cream 00:00: 05:59 daily for [place] 00 :00 30 days. Medical Branch triamcinolo 2022-0 3- No [id number] Apply to [facility] ne 0.025 % 1-10 02-10 area(s) ity o f cream 00:00: 05:59 daily for [place] 00 :00 30 days. Medical Branch mupirocin 2 2022-0 Yes [id number] Apply to [facility] % ointment 1-04 [id number] area(s) 3 it y of 00:00: (three) [place] 00 times Medical daily. Branch mupirocin 2 2022-0 Yes [id number] Apply to [facility] % ointment 1-04 [id number] area(s) 3 it y of 00:00: (three) [place] 00 times Medical daily. Branch mupirocin 2 2022-0 Yes [id number] Apply to [facility] % ointment 1-04 [id number] area(s) 3 it y of 00:00: (three) [place] 00 times Medical daily. Branch mupirocin 2 3-0 Yes [id number] Apply to [facility] % ointment 1-04 [id number] area(s) 3 it y of 00:00: (three) [place] 00 times Medical daily. Branch mupirocin 2 3-0 Yes [id number] Apply to [facility] % ointment 1-04 [id number] area(s) 3 it y of 00:00: (three) [place] 00 times Medical daily. Branch mupirocin 2 3-0 Yes [id number] Apply to [facility] % ointment 1-04 [id number] area(s) 3 it y of 00:00: (three) [place] 00 times Medical daily. Branch mupirocin 2 2023-0 Yes [id number] Apply to [facility] % ointment 1-04 [id number] area(s) 3 it y of 00:00: (three) [place] 00 times Medical daily. Branch mupirocin 2 3-0 Yes [id number] Apply to [facility] % ointment 1-04 [id number] area(s) 3 it y of 00:00: (three) [place] 00 times Medical daily. Branch mupirocin 2 3-0 Yes [id number] Apply to [facility] % ointment 1-04 118925 area(s) 3 it y of 00:00: (three) [place] 00 times Medical daily. Branch mupirocin 2 3-0 Yes [id number] Apply to [facility] % ointment 1-04 [id number] area(s) 3 it y of 00:00: (three) [place] 00 times Medical daily. Branch mupirocin 2 3-0 Yes [id number] Apply to [facility] % ointment 1-04 [id number] area(s) 3 it y of 00:00: (three) [place] 00 times Medical daily. Branch mupirocin 2 3-0 Yes [id number] Apply to [facility] % ointment 1-04 [id number] area(s) 3 it y of 00:00: (three) [place] 00 times Medical daily. Branch mupirocin 2 2023-0 Yes [id number] Apply to [facility] % ointment 1-04 [id number] area(s) 3 it y of 00:00: (three) [place] 00 times Medical daily. Branch mupirocin 2 3-0 Yes [id number] Apply to [facility] % ointment 1-04 [id number] area(s) 3 it y of 00:00: (three) [place] 00 times Medical daily. Branch mupirocin 2 2022-0 Yes [id number] Apply to [facility] % ointment 1-04 [id number] area(s) 3 it y of 00:00: (three) [place] 00 times Medical daily. Branch mupirocin 2 2022-0 Yes [id number] Apply to [facility] % ointment 1-04 [id number] area(s) 3 it y of 00:00: (three) [place] 00 times Medical daily. Branch mupirocin 2 2022-0 Yes [id number] Apply to [facility] % ointment 1-04 [id number] area(s) 3 it y of 00:00: (three) [place] 00 times Medical daily. Branch mupirocin 2 2022-0 Yes [id number] Apply to [facility] % ointment 1-04 [id number] area(s) 3 it y of 00:00: (three) [place] 00 times Medical daily. Branch mupirocin 2 2022-0 Yes [id number] Apply to [facility] % ointment 1-04 [id number] area(s) 3 it y of 00:00: (three) [place] 00 times Medical daily. Branch mupirocin 2 2022-0 Yes [id number] Apply to [facility] % ointment 1-04 [id number] area(s) 3 it y of 00:00: (three) [place] 00 times Medical daily. Branch mupirocin 2 2022-0 Yes [id number] Apply to [facility] % ointment 1-04 604140 area(s) 3 it y of 00:00: (three) [place] 00 times Medical daily. Branch mupirocin 2 2022-0 Yes [id number] Apply to [facility] % ointment 1-04 [id number] area(s) 3 it y of 00:00: (three) [place] 00 times Medical daily. Branch mupirocin 2 3-0 Yes [id number] Apply to [facility] % ointment 1-04 [id number] area(s) 3 it y of 00:00: (three) [place] 00 times Medical daily. Branch mupirocin 2 3-0 Yes [id number] Apply to [facility] % ointment 1-04 [id number] area(s) 3 it y of 00:00: (three) [place] 00 times Medical daily. Branch mupirocin 2 3-0 Yes [id number] Apply to [facility] % ointment 1-04 [id number] area(s) 3 it y of 00:00: (three) [place] 00 times Medical daily. Branch mupirocin 2 3-0 Yes [id number] Apply to [facility] % ointment 1-04 [id number] area(s) 3 it y of 00:00: (three) [place] 00 times Medical daily. Branch mupirocin 2 3-0 Yes [id number] Apply to [facility] % ointment 1-04 [id number] area(s) 3 it y of 00:00: (three) [place] 00 times Medical daily. Branch mupirocin 2 3-0 Yes [id number] Apply to [facility] % ointment 1-04 [id number] area(s) 3 it y of 00:00: (three) [place] 00 times Medical daily. Branch mupirocin 2 3-0 Yes [id number] Apply to [facility] % ointment 1-04 [id number] area(s) 3 it y of 00:00: (three) [place] 00 times Medical daily. Branch mupirocin 2 3-0 Yes [id number] Apply to [facility] % ointment 1-04 [id number] area(s) 3 it y of 00:00: (three) [place] 00 times Medical daily. Branch mupirocin 2 3-0 Yes [id number] Apply to [facility] % ointment 1-04 094075 area(s) 3 it y of 00:00: (three) [place] 00 times Medical daily. Branch mupirocin 2 3-0 Yes [id number] Apply to [facility] % ointment 1-04 762954 area(s) 3 it y of 00:00: (three) [place] 00 times Medical daily. Branch mupirocin 2 3-0 Yes [id number] Apply to [facility] % ointment 1-04 [id number] area(s) 3 it y of 00:00: (three) [place] 00 times Medical daily. Branch mupirocin 2 3-0 Yes [id number] Apply to [facility] % ointment 1-04 425400 area(s) 3 it y of 00:00: (three) [place] 00 times Medical daily. Branch mupirocin 2 3-0 Yes [id number] Apply to [facility] % ointment 1-04 [id number] area(s) 3 it y of 00:00: (three) [place] 00 times Medical daily. Branch mupirocin 2 3-0 Yes [id number] Apply to [facility] % ointment 1-04 [id number] area(s) 3 it y of 00:00: (three) [place] 00 times Medical daily. Branch mupirocin 2 3-0 Yes [id number] Apply to [facility] % ointment 1-04 [id number] area(s) 3 it y of 00:00: (three) [place] 00 times Medical daily. Branch mupirocin 2 3-0 Yes [id number] Apply to [facility] % ointment 1-04 202715 area(s) 3 it y of 00:00: (three) [place] 00 times Medical daily. Branch mupirocin 2 3-0 Yes [id number] Apply to [facility] % ointment 1-04 [id number] area(s) 3 it y of 00:00: (three) [place] 00 times Medical daily. Branch mupirocin 2 2022-0 Yes [id number] Apply to [facility] % ointment 1-04 [id number] area(s) 3 it y of 00:00: (three) [place] 00 times Medical daily. Branch mupirocin 2 3-0 Yes [id number] Apply to [facility] % ointment 1-04 878908 area(s) 3 it y of 00:00: (three) [place] 00 times Medical daily. Branch mupirocin 2 3-0 Yes [id number] Apply to [facility] % ointment 1-04 [id number] area(s) 3 it y of 00:00: (three) [place] 00 times Medical daily. Branch mupirocin 2 3-0 Yes [id number] Apply to [facility] % ointment 1-04 [id number] area(s) 3 it y of 00:00: (three) [place] 00 times Medical daily. Branch mupirocin 2 3-0 Yes [id number] Apply to [facility] % ointment 1-04 [id number] area(s) 3 it y of 00:00: (three) [place] 00 times Medical daily. Branch mupirocin 2 3-0 Yes [id number] Apply to [facility] % ointment 1-04 [id number] area(s) 3 it y of 00:00: (three) [place] 00 times Medical daily. Branch mupirocin 2 3-0 Yes [id number] Apply to [facility] % ointment 1-04 860637 area(s) 3 it y of 00:00: (three) [place] 00 times Medical daily. Branch mupirocin 2 3-0 Yes [id number] Apply to [facility] % ointment 1-04 [id number] area(s) 3 it y of 00:00: (three) [place] 00 times Medical daily. Branch mupirocin 2 3-0 Yes [id number] Apply to [facility] % ointment 1-04 906676 area(s) 3 it y of 00:00: (three) [place] 00 times Medical daily. Branch mupirocin 2 3-0 Yes [id number] Apply to [facility] % ointment 1-04 761561 area(s) 3 it y of 00:00: (three) [place] 00 times Medical daily. Branch mupirocin 2 2022-0 Yes [id number] Apply to [facility] % ointment 1-04 143755 area(s) 3 it y of 00:00: (three) [place] 00 times Medical daily. Branch mupirocin 2 3-0 Yes [id number] Apply to [facility] % ointment 1-04 006978 area(s) 3 it y of 00:00: (three) [place] 00 times Medical daily. Branch mupirocin 2 3-0 Yes [id number] Apply to [facility] % ointment 1-04 848252 area(s) 3 it y of 00:00: (three) [place] 00 times Medical daily. Branch mupirocin 2 3-0 Yes [id number] Apply to [facility] % ointment 1-04 037319 area(s) 3 it y of 00:00: (three) [place] 00 times Medical daily. Branch mupirocin 2 3-0 Yes [id number] Apply to [facility] % ointment 1-04 110695 area(s) 3 it y of 00:00: (three) [place] 00 times Medical daily. Branch mupirocin 2 3-0 Yes [id number] Apply to [facility] % ointment 1-04 [id number] area(s) 3 it y of 00:00: (three) [place] 00 times Medical daily. Branch mupirocin 2 2023-0 Yes [id number] Apply to [facility] % ointment 1-04 677647 area(s) 3 it y of 00:00: (three) [place] 00 times Medical daily. Branch mupirocin 2 3-0 Yes [id number] Apply to [facility] % ointment 1-04 [id number] area(s) 3 it y of 00:00: (three) [place] 00 times Medical daily. Branch mupirocin 2 3-0 Yes [id number] Apply to [facility] % ointment 1-04 085675 area(s) 3 it y of 00:00: (three) [place] 00 times Medical daily. Branch mupirocin 2 3-0 Yes [id number] Apply to [facility] % ointment 1-04 147735 area(s) 3 it y of 00:00: (three) [place] 00 times Medical daily. Branch mupirocin 2 3-0 Yes [id number] Apply to [facility] % ointment 1-04 068887 area(s) 3 it y of 00:00: (three) [place] 00 times Medical daily. Branch mupirocin 2 3-0 Yes [id number] Apply to [facility] % ointment 1-04 084880 area(s) 3 it y of 00:00: (three) [place] 00 times Medical daily. Branch mupirocin 2 3-0 Yes [id number] Apply to [facility] % ointment 1-04 454313 area(s) 3 it y of 00:00: (three) [place] 00 times Medical daily. Branch mupirocin 2 3-0 Yes [id number] Apply to [facility] % ointment 1-04 408758 area(s) 3 it y of 00:00: (three) [place] 00 times Medical daily. Branch mupirocin 2 3-0 Yes [id number] Apply to [facility] % ointment 1-04 190849 area(s) 3 it y of 00:00: (three) [place] 00 times Medical daily. Branch mupirocin 2 2023-0 Yes [id number] Apply to [facility] % ointment 1-04 167304 area(s) 3 it y of 00:00: (three) [place] 00 times Medical daily. Branch mupirocin 2 3-0 Yes [id number] Apply to [facility] % ointment 1-04 060835 area(s) 3 it y of 00:00: (three) [place] 00 times Medical daily. Branch mupirocin 2 2022-0 Yes [id number] Apply to [facility] % ointment 1-04 217920 area(s) 3 it y of 00:00: (three) [place] 00 times Medical daily. Branch mupirocin 2 2022-0 Yes [id number] Apply to [facility] % ointment 1-04 [id number] area(s) 3 it y of 00:00: (three) [place] 00 times Medical daily. Branch mupirocin 2 2022-0 Yes [id number] Apply to [facility] % ointment 1-04 011238 area(s) 3 it y of 00:00: (three) [place] 00 times Medical daily. Branch mupirocin 2 2022-0 Yes [id number] Apply to [facility] % ointment 1-04 879178 area(s) 3 it y of 00:00: (three) [place] 00 times Medical daily. Branch mupirocin 2 2022-0 Yes [id number] Apply to [facility] % ointment 1-04 360590 area(s) 3 it y of 00:00: (three) [place] 00 times Medical daily. Branch mupirocin 2 2022-0 Yes [id number] Apply to [facility] % ointment 1-04 988996 area(s) 3 it y of 00:00: (three) [place] 00 times Medical daily. Branch mupirocin 2 2022-0 Yes [id number] Apply to [facility] % ointment 1-04 870292 area(s) 3 it y of 00:00: (three) [place] 00 times Medical daily. Branch mupirocin 2 2022-0 Yes [id number] Apply to [facility] % ointment 1-04 551025 area(s) 3 it y of 00:00: (three) [place] 00 times Medical daily. Branch mupirocin 2 3-0 Yes [id number] Apply to [facility] % ointment 1-04 [id number] area(s) 3 it y of 00:00: (three) [place] 00 times Medical daily. Branch mupirocin 2 2022-0 Yes [id number] Apply to [facility] % ointment 1-04 065844 area(s) 3 it y of 00:00: (three) [place] 00 times Medical daily. Branch mupirocin 2 3-0 Yes [id number] Apply to [facility] % ointment 1-04 098695 area(s) 3 it y of 00:00: (three) [place] 00 times Medical daily. Branch mupirocin 2 3-0 Yes [id number] Apply to [facility] % ointment 1-04 717500 area(s) 3 it y of 00:00: (three) [place] 00 times Medical daily. Branch mupirocin 2 3-0 Yes [id number] Apply to [facility] % ointment 1-04 492133 area(s) 3 it y of 00:00: (three) [place] 00 times Medical daily. Branch mupirocin 2 2022-0 Yes [id number] Apply to [facility] % ointment 1-04 888690 area(s) 3 it y of 00:00: (three) [place] 00 times Medical daily. Branch mupirocin 2 2022-0 Yes [id number] Apply to [facility] % ointment 1-04 941413 area(s) 3 it y of 00:00: (three) [place] 00 times Medical daily. Branch mupirocin 2 2022-0 Yes [id number] Apply to [facility] % ointment 1-04 338224 area(s) 3 it y of 00:00: (three) [place] 00 times Medical daily. Branch mupirocin 2 2022-0 Yes [id number] Apply to [facility] % ointment 1-04 413333 area(s) 3 it y of 00:00: (three) [place] 00 times Medical daily. Branch mupirocin 2 2022-0 Yes [id number] Apply to [facility] % ointment 1-04 927499 area(s) 3 it y of 00:00: (three) [place] 00 times Medical daily. Branch mupirocin 2 3-0 Yes [id number] Apply to [facility] % ointment 1-04 727898 area(s) 3 it y of 00:00: (three) [place] 00 times Medical daily. Branch mupirocin 2 3-0 Yes [id number] Apply to [facility] % ointment 1-04 595306 area(s) 3 it y of 00:00: (three) [place] 00 times Medical daily. Branch mupirocin 2 2022-0 Yes [id number] Apply to [facility] % ointment 1-04 146842 area(s) 3 it y of 00:00: (three) [place] 00 times Medical daily. Branch mupirocin 2 2022-0 Yes [id number] Apply to [facility] % ointment 1-04 333405 area(s) 3 it y of 00:00: (three) [place] 00 times Medical daily. Branch mupirocin 2 2022-0 Yes [id number] Apply to [facility] % ointment 1-04 877008 area(s) 3 it y of 00:00: (three) [place] 00 times Medical daily. Branch mupirocin 2 2022-0 Yes [id number] Apply to [facility] % ointment 1-04 814118 area(s) 3 it y of 00:00: (three) [place] 00 times Medical daily. Branch mupirocin 2 2022-0 Yes [id number] Apply to [facility] % ointment 1-04 516209 area(s) 3 it y of 00:00: (three) [place] 00 times Medical daily. Branch mupirocin 2 2022-0 Yes [id number] Apply to [facility] % ointment 1-04 142793 area(s) 3 it y of 00:00: (three) [place] 00 times Medical daily. Branch mupirocin 2 2022-0 Yes [id number] Apply to [facility] % ointment 1-04 947580 area(s) 3 it y of 00:00: (three) [place] 00 times Medical daily. Branch mupirocin 2 2022-0 Yes [id number] Apply to [facility] % ointment 1-04 837689 area(s) 3 it y of 00:00: (three) [place] 00 times Medical daily. Branch mupirocin 2 2022-0 Yes [id number] Apply to [facility] % ointment 1-04 637714 area(s) 3 it y of 00:00: (three) [place] 00 times Medical daily. Branch mupirocin 2 2022-0 Yes [id number] Apply to [facility] % ointment 1-04 234366 area(s) 3 it y of 00:00: (three) [place] 00 times Medical daily. Branch mupirocin 2 2022-0 Yes [id number] Apply to [facility] % ointment 1-04 [id number] area(s) 3 it y of 00:00: (three) [place] 00 times Medical daily. Branch mupirocin 2 2022-0 Yes [id number] Apply to [facility] % ointment 09-01 087670 area(s) 3 it y of 00:00: (three) [place] 00 times Medical daily. Branch cephALEXin 2022-0 2023- No [id number] 500mg Take 1 [facility] (KEFLEX) 09-01 [id number] capsule by it y of 500 mg 00:00: 05:59 mouth 4 [place] capsule 00 :00 (four) Medical times Branch daily for 7 days. cephALEXin 2022-0 2023- No [id number] 500mg Take 1 [facility] (KEFLEX) 09-01 [id number] capsule by it y of 500 mg 00:00: 05:59 mouth 4 [place] capsule 00 :00 (four) Medical times Branch daily for 7 days. cephALEXin 3-0 2023- No [id number] 500mg Take 1 [facility] (KEFLEX) 09-01 [id number] capsule by it y of 500 mg 00:00: 05:59 mouth 4 [place] capsule 00 :00 (four) Medical times Branch daily for 7 days. cephALEXin 3-0 2023- No [id number] 500mg Take 1 [facility] (KEFLEX) 09-01 [id number] capsule by it y of 500 mg 00:00: 05:59 mouth 4 [place] capsule 00 :00 (four) Medical times Branch daily for 7 days. cephALEXin 3-0 2023- No [id number] 500mg Take 1 [facility] (KEFLEX) 09-01 [id number] capsule by it y of 500 mg 00:00: 05:59 mouth 4 [place] capsule 00 :00 (four) Medical times Branch daily for 7 days. cephALEXin 2023-0 2023- No [id number] 500mg Take 1 [facility] (KEFLEX) 09-01 [id number] capsule by it y of 500 mg 00:00: 05:59 mouth 4 [place] capsule 00 :00 (four) Medical times Branch daily for 7 days. cephALEXin 2023-0 2023- No [id number] 500mg Take 1 [facility] (KEFLEX) 09-01 [id number] capsule by it y of 500 mg 00:00: 05:59 mouth 4 [place] capsule 00 :00 (four) Medical times [place] daily for 7 days. cephALEXin 2022- No [id number] 500mg Take 1 [facility] (KEFLEX) 09-01 [id number] capsule by it y of 500 mg 00:00: 05:59 mouth 4 [place] capsule 00 :00 ([facility]) Medical times [place] daily for 7 days. cephALEXin 2022- No [id number] 500mg Take 1 [facility] (KEFLEX) 09-01 [id number] capsule by it y of 500 mg 00:00: 05:59 mouth 4 [place] capsule 00 :00 ([facility] [place]) Medical times [place] daily for 7 days. methocarbam 2021-08- No [id number] 500mg Take 1 [facility] oL 500 mg 2-15 12-30 tablet by ity of tablet 00:00: 05:59 mouth 4 [place] 00 :00 ([facility] times [place] daily for 14 days. gabapentin 2021-08- No [id number] 300mg Take 1 [facility] 300 mg 2-15 12-30 capsule by ity of capsule 00:00: 05:59 mouth in [place] 00 :00 the [facility] morning Branch and 1 capsule at noon and 1 capsule in the evening. Do all this for 14 days. methocarbam 2021-08- No [id number] 500mg Take 1 [facility] oL 500 mg 2-15 12-30 tablet by ity of tablet 00:00: 05:59 mouth 4 [place] 00 :00 ([facility]) [facility] times [place] daily for 14 days. gabapentin 2021-08- No [id number] 300mg Take 1 [facility] 300 mg 2-15 12-30 capsule by ity of capsule 00:00: 05:59 mouth in [place] 00 :00 the [facility] morning Branch and 1 capsule at noon and 1 capsule in the evening. Do all this for 14 days. methocarbam 2021-08- No [id number] 500mg Take 1 [facility] oL 500 mg 2-15 12-30 tablet by ity of tablet 00:00: 05:59 mouth 4 [place] 00 :00 ([facility]) [facility] times [place] daily for 14 days. gabapentin 2021-08- No [id number] 300mg Take 1 [facility] 300 mg 2-15 12-30 capsule by ity of capsule 00:00: 05:59 mouth in [place] 00 :00 the Medical morning Branch and 1 capsule at noon and 1 capsule in the evening. Do all this for 14 days. methocarbam 2021-08- No [id number] 500mg Take 1 [facility] oL 500 mg 2-15 12-30 tablet by ity of tablet 00:00: 05:59 mouth 4 [place] 00 :00 (four) Medical times [place] daily for 14 days. gabapentin 2021-08- No [id number] 300mg Take 1 [facility] 300 mg 2-15 12-30 capsule by ity of capsule 00:00: 05:59 mouth in [place] 00 :00 the Medical morning Branch and 1 capsule at noon and 1 capsule in the evening. Do all this for 14 days. methocarbam 2021-08- No [id number] 500mg Take 1 [facility] oL 500 mg 2-15 12-30 tablet by ity of tablet 00:00: 05:59 mouth 4 [place] 00 :00 (four) Medical times [place] daily for 14 days. gabapentin 2021-08- No [id number] 300mg Take 1 [facility] 300 mg 2-15 12-30 capsule by ity of capsule 00:00: 05:59 mouth in [place] 00 :00 the [facility] morning Branch and 1 capsule at noon and 1 capsule in the evening. Do all this for 14 days. lactated 2021-08 Yes 1000mL at 75 Un[facility] s ringers IV 2-02 mL/hr, ity of infusion 20:45: 1,000 [place] 1[place]000 [place] 00 IV Medical Infusion, Branch CONTINUOUS , Starting on Tue07/30/22 at 1445, Until Discontinu ed, Routine, PACU HYDROcodone 2021-08- No 1{tbl} 1 tablet, Univers -acetaminop 2-02 07-30 Oral, ity of hen (NORCO 20:45: 20:48 ONCE, 1 [place] 5) 5-325 mg 00 :00 dose, On Medi kia tablet 1 Fri Branch tablet 07/30/22 at 1445, Routine, PACU HYDROcodone 2021-08- No 1{tbl} 1 tablet, Univers -acetaminop 2-02 - Oral, ity of hen (NORCO 20:45: 20:48 ONCE, 1 [place] 5) 5-325 mg 00 :00 dose, On Medi kia tablet 1 Fri Branch tablet 07/30/22 at 1445, Routine, PACU lactated 2021-08- No 1000mL at 75 Unive rs ringers IV 09-30 mL/hr, ity of infusion 20:45: 23:13 1,000 mL, [place] as 1,000 mL 00 :53 IV Medical Infusion, Branch CONTINUOUS , Starting on Tue07/30/22 at 1445, Until Tue07/30/22 at 1713, Routine, PACU FENTanyl PF 2021-08 Yes 25ug 25 mcg, Uni vers (SUBLIMAZE 09-30 Slow IV ity of (PF)) 20:44: Push, [place] injection 30 Q5MIN PRN, Medi kia 25 mcg 4 doses, Branch Starting on Tue07/30/22 at 1444, Until Discontinu ed, Routine, Pain (scale 4-6), PACU HYDROmorpho 2021-08 Yes .2mg 0.2 mg, Uni vers ne 09-30 Slow IV ity of (DILAUDID) 20:44: Push, [place] injection 30 Q5MIN PRN, Medi kia 0.2 mg 10 doses, Branch Starting on Tue07/30/22 at 1444, Until Discontinu ed, Routine, Pain (scale 7-10), PACU
Us e approved by (Faculty): PACU USE -ANESTHESI A SERVICE-HY DROMORPHON E INJECTIONS haloperidol 2021-08 Yes 1mg 1 mg, Unive rs lactate 09-30 Intravenou ity of (HALDOL) 20:44: s, PRN, 1 [place] injection 1 30 dose, Medical mg Starting Branch on Tue07/30/22 at 1444, Until Discontinu ed, Routine, Nausea and Vomiting (N/V), PACU FENTanyl PF 2021-08- No 25ug 25 mcg, Un gwendolyn (SUBLIMAZE 09-30 Slow IV ity o f (PF)) 20:44: 23:13 Push, [place] injection 30 :53 Q5MIN PRN, Medi kia 25 mcg 4 doses, Branch Starting on Tue07/30/22 at 1444, Until Tue07/30/22 at 1713, Routine, Pain (scale 4-6), PACU HYDROmorpho 2021-08- No .2mg 0.2 mg, Un gwendolyn ne 09-30 Slow IV ity of (DILAUDID) 20:44: 23:13 Push, [place] injection 30 :53 Q5MIN PRN, Medi kia 0.2 mg 10 doses, Branch Starting on Tue07/30/22 at 1444, Until Tue07/30/22 at 1713, Routine, Pain (scale 7-10), PACU
Us e approved by (Faculty): PACU USE -ANESTHESI A SERVICE-HY DROMORPHON E INJECTIONS haloperidol 2021-08- No 1mg 1 mg, Univ ers lactate 09-30 Intravenou ity o f (HALDOL) 20:44: 23:13 s, PRN, 1 [place] as injection 1 30 :53 dose, Medical mg Starting Branch on Tue07/30/22 at 1444, Until Tue07/30/22 at 1713, Routine, Nausea and Vomiting (N/V), PACU dexmedeTOMI 2021-08- No Intravenou Univers Dine 09-30 s, ONCE ity of (PRECEDEX) 19:35: 20:01 INTRA [place] injection 00 :15 PROCEDURE, Medi kia Starting Branch on Tue07/30/22 at 1335, Until Tue07/30/22 at 1401, Routine, Intra-op acetaminoph 2021-08- No IV Unive rs en ADULT 09-30 Infusion, ity o f (OFIRMEV) 19:32: 20:01 Administer [place] injection 00 :15 over 15 Medical Minutes, Branch ONCE INTRA PROCEDURE, Starting on Tue07/30/22 at 1332, Until Tue07/30/22 at 1401, Routine, Intra-op bupivacaine 2021-08- No PRN, Unive rs (preserv 09-30 Starting ity of free) 19:29: 20:20 on Tue (SENSORCAIN 00 :36 07/30/22 at [facility] d[facility] E [facility]) 0.25 1329, Branch % (2.5 Until Fri mg/mL) 07/30/22 at injection 1420, Routine, Intra-op ondansetron 2021-08- No Slow IV Un gwendolyn (ZOFRAN 09-30 Push, ONCE ity o f (PF)) 19:29: 20:01 INTRA [place] injection 00 :15 PROCEDURE, Medi kia Starting Branch on Tue07/30/22 at 1329, Until Tue07/30/22 at 1401, Routine, Intra-op glycopyrrol 2021-08- No Intravenou Univers ate 09-30 s, ONCE ity of (ROBINUL) 19:22: 20:01 INTRA [place] injection 00 :15 PROCEDURE, Medi kia Starting Branch on Tue07/30/22 at 1322, Until Tue07/30/22 at 1401, Routine, Intra-op ceFAZolin 2021-08- No Slow IV Univ ers (ANCEF) 09-30 Push, ONCE ity o f injection 19:14: 20:01 INTRA [place] 00 :15 PROCEDURE, Medical Starting Branch on Tue07/30/22 at 1314, Until Tue07/30/22 at 1401, ARIELLA, Intra-op vasopressin 2021-08- No IV Unive rs (VASOSTRICT 09-30 Infusion, it y of ) 20 19:09: 20:01 ONCE INTRA [place] Units/100 00 :15 PROCEDURE, Medi kia mL RTU vial Starting Bran ch infusion on Tue07/30/22 at 1309, Until Tue07/30/22 at 1401, Routine, Intra-op propofoL IV 2021-08- No IV Unive rs infusion 09-30 Infusion, ity o f 19:03: 20:01 ONCE INTRA [place] 00 :15 PROCEDURE, Medical Starting Branch on Tue07/30/22 at 1303, Until Tue07/30/22 at 1401, Routine, Intra-op FENTanyl PF 2021-08- No Slow IV Un g[place]ol[place] (SUBLIMAZE 09-30 Push, ONCE it y of (PF)) 19:03: 20:01 INTRA [place] injection 00 :15 PROCEDURE, Medi kia Starting Branch on Tue07/30/22 at 1303, Until Tue07/30/22 at 1401, Routine, Intra-op lidocaine 2021-08- No Slow IV Univ ers 1% 09-30 Push, ONCE ity of (XYLOCAINE) 19:00: 20:01 INTRA [place] 100 mg/10 00 :15 PROCEDURE, Medi kia mL (1 %) Starting Branch injection on Tue07/30/22 at 1300, Until Tue07/30/22 at 1401, Routine, Intra-op lactated 2021-08- No IV Univers ringers IV 09-30 Infusion, ity of infusion 19:00: 20:01 CONTINUOUS [place] 00 :15 PRN, Medical Starting Branch on Tue07/30/22 at 1300, Until Tue07/30/22 at 1401, Routine, Intra-op midazolam 2021-08- No IV [place], Uni vers (VERSED) 09-30 ONCE INTRA ity of injection 19:00: 20:01 PROCEDURE, [place] 00 :15 Starting Medical on Tue07/30/22 at 1300, Until Tue07/30/22 at 1401, Routine, Intra-op scopolamine 2021-08- No Topical, U nivers transdermal 09-30 Administer i ty of (TRANSDERM- 18:41: 20:01 over 72 [place] SCOP) patch 00 :15 Hours, Medica l ONCE INTRA Branch PROCEDURE, Starting on Tue07/30/22 at 1241, Until Tue07/30/22 at 1401, Routine, Intra-op cholecalcif 2021-08 Yes 1{capsu Take 1 U nivers gayle, 2-02 le} capsule by ity of vitamin D3, 15:13: mouth [place] (VITAMIN 53 daily. Medical D3) 100 mcg Branch (4,000 unit) Cap fish 2021-08 Yes 2{capsu Take 2 Univers oil/borage/ 2-02 le} capsules ity of flax/om3,6, 15:13: by mouth [place] 9 1 (OMEGA 53 daily. Medical 11-01-9 ORAL) Branch cholecalcif 2021-08 Yes 1{capsu Take 1 U nivers gayle, 2-02 le} capsule by ity of vitamin D3, 15:13: mouth [place] (VITAMIN 53 daily. Medical D3) 100 mcg Branch (4,000 unit) Cap fish 2021-08 Yes 2{capsu Take 2 Univers oil/borage/ 2-02 le} capsules ity of flax/om3,6, 15:13: by mouth [place] 9 1 (OMEGA 53 daily. Medical 11-01- ORAL) Branch cholecalcif 2021-08 Yes 1{capsu Take 1 U nivers gayle, 2-02 le} capsule by ity of vitamin D3, 15:13: mouth [place] (VITAMIN 53 daily. Medical D3) 100 mcg Branch (4,000 unit) Cap fish 2021-08 Yes 2{capsu Take 2 Univers oil/borage/ 2-02 le} capsules ity of flax/om3,6, 15:13: by mouth [place] 9 1 (OMEGA 53 daily. Medical 3-6-9 ORAL) Branch cholecalcif 2021-08 Yes 1{capsu Take 1 U nivers gayle, 2-02 le} capsule by ity of vitamin D3, 15:13: mouth [place] (VITAMIN 53 daily. Medical D3) 100 mcg Branch (4,000 unit) Cap fish 2021-08 Yes 2{capsu Take 2 Univers oil/borage/ 2-02 le} capsules ity of flax/om3,6, 15:13: by mouth [place] 9 1 (OMEGA 53 daily. Medical 3-6-9 ORAL) Branch cholecalcif 2021-08 Yes 1{capsu Take 1 U nivers gayle, 2-02 le} capsule by ity of vitamin D3, 15:13: mouth [place] (VITAMIN 53 daily. Medical D3) 100 mcg Branch (4,000 unit) Cap fish 2021-08 Yes 2{capsu Take 2 Univers oil/borage/ 2-02 le} capsules ity of flax/om3,6, 15:13: by mouth [place] 9 1 (OMEGA 53 daily. Medical 3-6-9 ORAL) Branch cholecalcif 2021-08 Yes 1{capsu Take 1 U nivers gayle, 2-02 le} capsule by ity of vitamin D3, 15:13: mouth [place] (VITAMIN 53 daily. Medical D3) 100 mcg Branch (4,000 unit) Cap fish 2021-08 Yes 2{capsu Take 2 Univers oil/borage/ 2-02 le} capsules ity of flax/om3,6, 15:13: by mouth [place] 9 1 (OMEGA 53 daily. Medical 3-6-9 ORAL) Branch cholecalcif 2021-08 Yes 1{capsu Take 1 U nivers gayle, 2-02 le} capsule by ity of vitamin D3, 15:13: mouth [place] (VITAMIN 53 daily. Medical D3) 100 mcg Branch (4,000 unit) Cap fish 2021-08 Yes 2{capsu Take 2 Univers oil/borage/ 2-02 le} capsules ity of flax/om3,6, 15:13: by mouth [place] 9 1 (OMEGA 53 daily. Medical 3-6-9 ORAL) Branch cholecalcif 2021-08 Yes 1{capsu Take 1 U nivers gayle, 2-02 le} capsule by ity of vitamin D3, 15:13: mouth [place] (VITAMIN 53 daily. Medical D3) 100 mcg Branch (4,000 unit) Cap fish 2021-08 Yes 2{capsu Take 2 Univers oil/borage/ 2-02 le} capsules ity of flax/om3,6, 15:13: by mouth [place] 9 1 (OMEGA 53 daily. Medical 3-6-9 ORAL) Branch cholecalcif 2021-08 Yes 1{capsu Take 1 U nivers gayle, 2-02 le} capsule by ity of vitamin D3, 15:13: mouth [place] (VITAMIN 53 daily. Medical D3) 100 mcg Branch (4,000 unit) Cap fish 2021-08 Yes 2{capsu Take 2 Univers oil/borage/ 2-02 le} capsules ity of flax/om3,6, 15:13: by mouth [place] 9 1 (OMEGA 53 daily. Medical 3-6-9 ORAL) Branch cholecalcif 2021-08 Yes 1{capsu Take 1 U nivers gayle, 2-02 le} capsule by ity of vitamin D3, 15:13: mouth [place] (VITAMIN 53 daily. Medical D3) 100 mcg Branch (4,000 unit) Cap fish 2021-08 Yes 2{capsu Take 2 Univers oil/borage/ 2-02 le} capsules ity of flax/om3,6, 15:13: by mouth [place] 9 1 (OMEGA 53 daily. Medical 3-6-9 ORAL) Branch cholecalcif 2021-08 Yes 1{capsu Take 1 U nivers gayle, 2-02 le} capsule by ity of vitamin D3, 15:13: mouth [place] (VITAMIN 53 daily. Medical D3) 100 mcg Branch (4,000 unit) Cap fish 2021-08 Yes 2{capsu Take 2 Univers oil/borage/ 2-02 le} capsules ity of flax/om3,6, 15:13: by mouth [place] 9 1 (OMEGA 53 daily. Medical 3-6-9 ORAL) Branch cholecalcif 2021-08 Yes 1{capsu Take 1 U nivers gayle, 2-02 le} capsule by ity of vitamin D3, 15:13: mouth [place] (VITAMIN 53 daily. Medical D3) 100 mcg Branch (4,000 unit) Cap fish 2021-08 Yes 2{capsu Take 2 Univers oil/borage/ 2-02 le} capsules ity of flax/om3,6, 15:13: by mouth [place] 9 1 (OMEGA 53 daily. Medical 3-6-9 ORAL) Branch cholecalcif 2021-08 Yes 1{capsu Take 1 U nivers gayle, 2-02 le} capsule by ity of vitamin D3, 15:13: mouth [place] (VITAMIN 53 daily. Medical D3) 100 mcg Branch (4,000 unit) Cap fish 2021-08 Yes 2{capsu Take 2 Univers oil/borage/ 2-02 le} capsules ity of flax/om3,6, 15:13: by mouth [place] 9 1 (OMEGA 53 daily. Medical 3-6-9 ORAL) Branch cholecalcif 2021-08 Yes 1{capsu Take 1 U nivers gayle, 2-02 le} capsule by ity of vitamin D3, 15:13: mouth [place] (VITAMIN 53 daily. Medical D3) 100 mcg Branch (4,000 unit) Cap fish 2021-08 Yes 2{capsu Take 2 Univers oil/borage/ 2-02 le} capsules ity of flax/om3,6, 15:13: by mouth [place] 9 1 (OMEGA 53 daily. Medical 3-6-9 ORAL) Branch cholecalcif 2021-08 Yes 1{capsu Take 1 U nivers gayle, 2-02 le} capsule by ity of vitamin D3, 15:13: mouth [place] (VITAMIN 53 daily. Medical D3) 100 mcg Branch (4,000 unit) Cap fish 2021-08 Yes 2{capsu Take 2 Univers oil/borage/ 2-02 le} capsules ity of flax/om3,6, 15:13: by mouth [place] 9 1 (OMEGA 53 daily. Medical 9 ORAL) Branch cholecalcif 2021-08 Yes 1{capsu Take 1 U nivers gayle, 2-02 le} capsule by ity of vitamin D3, 15:13: mouth [place] (VITAMIN 53 daily. Medical D3) 100 mcg Branch (4,000 unit) Cap fish 2021-08 Yes 2{capsu Take 2 Univers oil/borage/ 2-02 le} capsules ity of flax/om3,6, 15:13: by mouth [place] 9 1 (OMEGA 53 daily. Medical 9 ORAL) Branch cholecalcif 2021-08 Yes 1{capsu Take 1 U nivers gayle, 2-02 le} capsule by ity of vitamin D3, 15:13: mouth [place] (VITAMIN 53 daily. Medical D3) 100 mcg Branch (4,000 unit) Cap fish 2021-08 Yes 2{capsu Take 2 Univers oil/borage/ 2-02 le} capsules ity of flax/om3,6, 15:13: by mouth [place] 9 1 (OMEGA 53 daily. Medical 9 ORAL) Branch cholecalcif 2021-08 Yes 1{capsu Take 1 U nivers gayle, 2-02 le} capsule by ity of vitamin D3, 15:13: mouth [place] (VITAMIN 53 daily. Medical D3) 100 mcg Branch (4,000 unit) Cap fish 2021-08 Yes 2{capsu Take 2 Univers oil/borage/ 2-02 le} capsules ity of flax/om3,6, 15:13: by mouth [place] 9 1 (OMEGA 53 daily. Medical ORAL) Branch cholecalcif 2021-08 Yes 1{capsu Take 1 U nivers gayle, 2-02 le} capsule by ity of vitamin D3, 15:13: mouth [place] (VITAMIN 53 daily. Medical D3) 100 mcg Branch (4,000 unit) Cap fish 2021-08 Yes 2{capsu Take 2 Univers oil/borage/ 2-02 le} capsules ity of flax/om3,6, 15:13: by mouth [place] 9 1 (OMEGA 53 daily. Medical 11-01-9 ORAL) Branch cholecalcif 2021-08 Yes 1{capsu Take 1 U nivers gay[place], 2-02 le} capsule by ity of vitamin D3, 15:13: mouth [place] (VITAMIN 53 daily. Medical D3) 100 mcg Branch (4,000 unit) Cap fish 2021-08 Yes 2{capsu Take 2 Univers oil/borage/ 2-02 le} capsules ity of flax/om3,6, 15:13: by mouth [place] 9 1 (OMEGA 53 daily. Medical 3-6-9 ORAL) Branch cholecalcif 2021-08 Yes 1{capsu Take 1 U nivers gay[place], 2-02 le} capsule by ity of vitamin D3, 15:13: mouth [place] (VITAMIN 53 daily. Medical D3) 100 mcg Branch (4,000 unit) Cap fish 2021-08 Yes 2{capsu Take 2 Univers oil/borage/ 2-02 le} capsules ity of flax/om3,6, 15:13: by mouth [place] 9 1 (OMEGA 53 daily. Medical 3-6-9 ORAL) Branch cholecalcif 2021-08 Yes 1{capsu Take 1 U nivers gayle, 2-02 le} capsule by ity of vitamin D3, 15:13: mouth [place] (VITAMIN 53 daily. Medical D3) 100 mcg Branch (4,000 unit) Cap fish 2021-08 Yes 2{capsu Take 2 Univers oil/borage/ 2-02 le} capsules ity of flax/om3,6, 15:13: by mouth [place] 9 1 (OMEGA 53 daily. Medical 3-6-9 ORAL) Branch cholecalcif 2021-08 Yes 1{capsu Take 1 U nivers [place], 2-02 le} capsule by ity of vitamin D3, 15:13: mouth [place] (VITAMIN 53 daily. Medical D3) 100 mcg Branch (4,000 unit) Cap fish 2021-08 Yes 2{capsu Take 2 Univers oil/borage/ 2-02 le} capsules ity of flax/om3,6, 15:13: by mouth [place] 9 1 (OMEGA 53 daily. Medical 3-6-9 ORAL) Branch cholecalcif 2021-08 Yes 1{capsu Take 1 U nivers gayle, 2-02 le} capsule by ity of vitamin D3, 15:13: mouth [place] (VITAMIN 53 daily. Medical D3) 100 mcg Branch (4,000 unit) Cap fish 2021-08 Yes 2{capsu Take 2 Univers oil/borage/ 2-02 le} capsules ity of flax/om3,6, 15:13: by mouth [place] 9 1 (OMEGA 53 daily. Medical 3-6-9 ORAL) Branch cholecalcif 2021-08 Yes 1{capsu Take 1 U nivers gay[place], 2-02 le} capsule by ity of vitamin D3, 15:13: mouth [place] (VITAMIN 53 daily. Medical D3) 100 mcg Branch (4,000 unit) Cap fish 2021-08 Yes 2{capsu Take 2 Univers oil/borage/ 2-02 le} capsules ity of flax/om3,6, 15:13: by mouth [place] 9 1 (OMEGA 53 daily. Medical 3-6-9 ORAL) Branch cholecalcif 2021-08 Yes 1{capsu Take 1 U nivers gay[place], 2-02 le} capsule by ity of vitamin D3, 15:13: mouth [place] (VITAMIN 53 daily. Medical D3) 100 mcg Branch (4,000 unit) Cap fish 2021-08 Yes 2{capsu Take 2 Univers oil/borage/ 2-02 le} capsules ity of flax/om3,6, 15:13: by mouth [place] 9 1 (OMEGA 53 daily. Medical 3-6-9 ORAL) Branch cholecalcif 2021-08 Yes 1{capsu Take 1 U nivers gayle, 2-02 le} capsule by ity of vitamin D3, 15:13: mouth [place] (VITAMIN 53 daily. Medical D3) 100 mcg Branch (4,000 unit) Cap fish 2021-08 Yes 2{capsu Take 2 Univers oil/borage/ 2-02 le} capsules ity of flax/om3,6, 15:13: by mouth [place] 9 1 (OMEGA 53 daily. Medical 3-6-9 ORAL) Branch cholecalcif 2021-08 Yes 1{capsu Take 1 U nivers gayle, 2-02 le} capsule by ity of vitamin D3, 15:13: mouth [place] (VITAMIN 53 daily. Medical D3) 100 mcg Branch (4,000 unit) Cap fish 2021-08 Yes 2{capsu Take 2 Univers oil/borage/ 2-02 le} capsules ity of flax/om3,6, 15:13: by mouth [place] 9 1 (OMEGA 53 daily. Medical 3-6-9 ORAL) Branch cholecalcif 2021-08 Yes 1{capsu Take 1 U nivers gay[place], 2-02 le} capsule by ity of vitamin D3, 15:13: mouth [place] (VITAMIN 53 daily. Medical D3) 100 mcg Branch (4,000 unit) Cap fish 2021-08 Yes 2{capsu Take 2 Univers oil/borage/ 2-02 le} capsules ity of flax/om3,6, 15:13: by mouth [place] 9 1 (OMEGA 53 daily. Medical 3-6-9 ORAL) Branch cholecalcif 2021-08 Yes 1{capsu Take 1 U nivers gay[place], 2-02 le} capsule by ity of vitamin D3, 15:13: mouth [place] (VITAMIN 53 daily. Medical D3) 100 mcg Branch (4,000 unit) Cap fish 2021-08 Yes 2{capsu Take 2 Univers oil/borage/ 2-02 le} capsules ity of flax/om3,6, 15:13: by mouth [place] 9 1 (OMEGA 53 daily. Medical 3-6-9 ORAL) Branch cholecalcif 2021-08 Yes 1{capsu Take 1 U nivers gayle, 2-02 le} capsule by ity of vitamin D3, 15:13: mouth [place] (VITAMIN 53 daily. Medical D3) 100 mcg Branch (4,000 unit) Cap fish 2021-08 Yes 2{capsu Take 2 Univers oil/borage/ 2-02 le} capsules ity of flax/om3,6, 15:13: by mouth [place] 9 1 (OMEGA 53 daily. Medical 3-6-9 ORAL) Branch cholecalcif 2021-08 Yes 1{capsu Take 1 U nivers [place], 2-02 le} capsule by ity of vitamin D3, 15:13: mouth [place] (VITAMIN 53 daily. Medical D3) 100 mcg Branch (4,000 unit) Cap fish 2021-08 Yes 2{capsu Take 2 Univers oil/borage/ 2-02 le} capsules ity of flax/om3,6, 15:13: by mouth [place] 9 1 (OMEGA 53 daily. Medical 3-6-9 ORAL) Branch cholecalcif 2021-08 Yes 1{capsu Take 1 U nivers gayle, 2-02 le} capsule by ity of vitamin D3, 15:13: mouth [place] (VITAMIN 53 daily. Medical D3) 100 mcg Branch (4,000 unit) Cap fish 2021-08 Yes 2{capsu Take 2 Univers oil/borage/ 2-02 le} capsules ity of flax/om3,6, 15:13: by mouth [place] 9 1 (OMEGA 53 daily. Medical 11-01-9 ORAL) Branch cholecalcif 2021-08 Yes 1{capsu Take 1 U nivers gayle, 2-02 le} capsule by ity of vitamin D3, 15:13: mouth [place] (VITAMIN 53 daily. Medical D3) 100 mcg Branch (4,000 unit) Cap fish 2021-08 Yes 2{capsu Take 2 Univers oil/borage/ 2-02 le} capsules ity of flax/om3,6, 15:13: by mouth [place] 9 1 (OMEGA 53 daily. Medical 9 ORAL) Branch cholecalcif 2021-08 Yes 1{capsu Take 1 U nivers gayle, 2-02 le} capsule by ity of vitamin D3, 15:13: mouth [place] (VITAMIN 53 daily. Medical D3) 100 mcg Branch (4,000 unit) Cap fish 2021-08 Yes 2{capsu Take 2 Univers oil/borage/ 2-02 le} capsules ity of flax/om3,6, 15:13: by mouth [place] 9 1 (OMEGA 53 daily. Medical 11-01-9 ORAL) Branch cholecalcif 2021-08 Yes 1{capsu Take 1 U nivers gayle, 2-02 le} capsule by ity of vitamin D3, 15:13: mouth [place] (VITAMIN 53 daily. Medical D3) 100 mcg Branch (4,000 unit) Cap fish 2021-08 Yes 2{capsu Take 2 Univers oil/borage/ 2-02 le} capsules ity of flax/om3,6, 15:13: by mouth [place] 9 1 (OMEGA 53 daily. Medical 3-6-9 ORAL) Branch cholecalcif 2021-08 Yes 1{capsu Take 1 U nivers gayle, 2-02 le} capsule by ity of vitamin D3, 15:13: mouth [place] (VITAMIN 53 daily. Medical D3) 100 mcg Branch (4,000 unit) Cap fish 2021-08 Yes 2{capsu Take 2 Univers oil/borage/ 2-02 le} capsules ity of flax/om3,6, 15:13: by mouth [place] 9 1 (OMEGA 53 daily. Medical 3-6-9 ORAL) Branch cholecalcif 2021-08 Yes 1{capsu Take 1 U nivers gay[place], 2-02 le} capsule by ity of vitamin D3, 15:13: mouth [place] (VITAMIN 53 daily. Medical D3) 100 mcg Branch (4,000 unit) Cap cholecalcif 2021-08 Yes 1{capsu Take 1 U nivers gayle, 2-02 le} capsule by ity of vitamin D3, 15:13: mouth [place] (VITAMIN 53 daily. Medical D3) 100 mcg Branch (4,000 unit) Cap cholecalcif 2021-08 Yes 1{capsu Take 1 U nivers [place]le, 2-02 le} capsule by ity of vitamin D3, 15:13: mouth [place] (VITAMIN 53 daily. Medical D3) 100 mcg Branch (4,000 unit) Cap cholecalcif 2021-08 Yes 1{capsu Take 1 U nivers gayle, 2-02 le} capsule by ity of vitamin D3, 15:13: mouth [place] (VITAMIN 53 daily. Medical D3) 100 mcg Branch (4,000 unit) Cap cholecalcif 2021-08 Yes 1{capsu Take 1 U nivers [place], 2-02 le} capsule by ity of vitamin D3, 15:13: mouth [place] (VITAMIN 53 daily. Medical D3) 100 mcg Branch (4,000 unit) Cap cholecalcif 2021-08 Yes 1{capsu Take 1 U nivers [place], 2-02 le} capsule by ity of vitamin D3, 15:13: mouth [place] (VITAMIN 53 daily. Medical D3) 100 mcg Branch (4,000 unit) Cap cholecalcif 2021-08 Yes 1{capsu Take 1 U nivers [place], 2-02 le} capsule by ity of vitamin D3, 15:13: mouth [place] (VITAMIN 53 daily. Medical D3) 100 mcg Branch (4,000 unit) Cap cholecalcif 2022-1 Yes 1{capsu Take 1 U nivers gayle, 2-02 le} capsule by ity of vitamin D3, 15:13: mouth [place] (VITAMIN 53 daily. Medical D3) 100 mcg Branch (4,000 unit) Cap cholecalcif 2021-08 Yes 1{capsu Take 1 U nivers [place], 2-02 le} capsule by ity of vitamin D3, 15:13: mouth [place] (VITAMIN 53 daily. Medical D3) 100 mcg Branch (4,000 unit) Cap cholecalcif 2021-08 Yes 1{capsu Take 1 U nivers [place], 2-02 le} capsule by ity of vitamin D3, 15:13: mouth [place] (VITAMIN 53 daily. Medical D3) 100 mcg Branch (4,000 unit) Cap cholecalcif 2021-08 Yes 1{capsu Take 1 U nivers [place], 2-02 le} capsule by ity of vitamin D3, 15:13: mouth [place] (VITAMIN 53 daily. Medical D3) 100 mcg Branch (4,000 unit) Cap cholecalcif 2021-08 Yes 1{capsu Take 1 U nivers [place], 2-02 le} capsule by ity of vitamin D3, 15:13: mouth [place] (VITAMIN 53 daily. Medical D3) 100 mcg Branch (4,000 unit) Cap cholecalcif 2021-08 Yes 1{capsu Take 1 U nivers [place], 2-02 le} capsule by ity of vitamin D3, 15:13: mouth [place] (VITAMIN 53 daily. Medical D3) 100 mcg Branch (4,000 unit) Cap cholecalcif 2021-08 Yes 1{capsu Take 1 U nivers [place], 2-02 le} capsule by ity of vitamin D3, 15:13: mouth [place] (VITAMIN 53 daily. Medical D3) 100 mcg Branch (4,000 unit) Cap cholecalcif 2021-08 Yes 1{capsu Take 1 U nivers [place], 2-02 le} capsule by ity of vitamin D3, 15:13: mouth [place] (VITAMIN 53 daily. Medical D3) 100 mcg Branch (4,000 unit) Cap cholecalcif 2021-08 Yes 1{capsu Take 1 U nivers [place]le, 2-02 le} capsule by ity of vitamin D3, 15:13: mouth [place] (VITAMIN 53 daily. Medical D3) 100 mcg Branch (4,000 unit) Cap cholecalcif 2021-08 Yes 1{capsu Take 1 U nivers gayle, 2-02 le} capsule by ity of vitamin D3, 15:13: mouth [place] (VITAMIN 53 daily. Medical D3) 100 mcg [place] (4,000 unit) Cap cholecalcif 2021-08 Yes 1{capsu Take 1 U nivers gayle, 2-02 le} capsule by ity of vitamin D3, 15:13: mouth [place] (VITAMIN 53 daily. Medical D3) 100 mcg [place] (4,000 unit) Cap hydrocortis 2021-08 Yes [id number] 1{appli Insert 1 [facility] 09-30 cator} Applicator ity of (CORTIFOAM) 00:00: into [place] 10 % (80 00 rectum at Medica l mg) foam bedtime. Branch hydrocortis 2021-08 Yes [id number] 1{appli Insert 1 [facility] 09-30 cator} Applicator ity of (CORTIFOAM) 00:00: into [place] 10 % (80 00 rectum at Medica l mg) foam bedtime. Branch hydrocortis 2021-08 Yes [id number] 1{appli Insert 1 [facility] 09-30 cator} Applicator ity of (CORTIFOAM) 00:00: into [place] 10 % (80 00 rectum at Medica l mg) foam bedtime. Branch hydrocortis 2021-08 Yes [id number] 1{appli Insert 1 [facility] 09-30 cator} Applicator ity of (CORTIFOAM) 00:00: into [place] 10 % (80 00 rectum at Medica l mg) foam bedtime. Branch hydrocortis 2021-08 Yes [id number] 1{appli Insert 1 [facility] 09-30 cator} Applicator ity of (CORTIFOAM) 00:00: into [place] 10 % (80 00 rectum at Medica l mg) foam bedtime. Branch hydrocortis 2021-08 Yes [id number] 1{appli Insert 1 [facility] 09-30 cator} Applicator ity of (CORTIFOAM) 00:00: into [place] 10 % (80 00 rectum at Medica l mg) foam bedtime. Branch hydrocortis 2021-08 Yes [id number] 1{appli Insert 1 [facility] 09-30 cator} Applicator ity of (CORTIFOAM) 00:00: into [place] 10 % (80 00 rectum at Medica l mg) foam bedtime. Branch hydrocortis 2021-08 Yes [id number] 1{appli Insert 1 [facility] 09-30 cator} Applicator ity of (CORTIFOAM) 00:00: into [place] 10 % (80 00 rectum at Medica l mg) foam bedtime. Branch hydrocortis 2021-08 Yes [id number] 1{appli Insert 1 [facility] 09-30 cator} Applicator ity of (CORTIFOAM) 00:00: into [place] 10 % (80 00 rectum at Medica l mg) foam bedtime. Branch hydrocortis 2021-08 Yes [id number] 1{appli Insert 1 [facility] 09-30 cator} Applicator ity of (CORTIFOAM) 00:00: into [place] 10 % (80 00 rectum at Medica l mg) foam bedtime. Branch hydrocortis 2021-08 Yes [id number] 1{appli Insert 1 [facility] 09-30 cator} Applicator ity of (CORTIFOAM) 00:00: into [place] 10 % (80 00 rectum at Medica l mg) foam bedtime. Branch hydrocortis 2021-08 Yes [id number] 1{appli Insert 1 [facility] 09-30 cator} Applicator ity of (CORTIFOAM) 00:00: into [place] 10 % (80 00 rectum at Medica l mg) foam bedtime. Branch hydrocortis 2021-08 Yes [id number] 1{appli Insert 1 [facility] 09-30 cator} Applicator ity of (CORTIFOAM) 00:00: into [place] 10 % (80 00 rectum at Medica l mg) foam bedtime. Branch hydrocortis 2021-08 Yes [id number] 1{appli Insert 1 [facility] 09-30 cator} Applicator ity of (CORTIFOAM) 00:00: into [place] 10 % (80 00 rectum at Medica l mg) foam bedtime. Branch hydrocortis 2021-08 Yes [id number] 1{appli Insert 1 [facility] 09-30 cator} Applicator ity of (CORTIFOAM) 00:00: into [place] 10 % (80 00 rectum at Medica l mg) foam bedtime. Branch hydrocortis 2021-08 Yes [id number] 1{appli Insert 1 [facility] 09-30 cator} Applicator ity of (CORTIFOAM) 00:00: into [place] 10 % (80 00 rectum at Medica l mg) foam bedtime. Branch hydrocortis 2021-08 Yes [id number] 1{appli Insert 1 [facility] 09-30 cator} Applicator ity of (CORTIFOAM) 00:00: into [place] 10 % (80 00 rectum at Medica l mg) foam bedtime. Branch hydrocortis 2021-08 Yes [id number] 1{appli Insert 1 [facility] 09-30 cator} Applicator ity of (CORTIFOAM) 00:00: into [place] 10 % (80 00 rectum at Medica l mg) foam bedtime. Branch hydrocortis 2021-08 Yes [id number] 1{appli Insert 1 [facility] 09-30 cator} Applicator ity of (CORTIFOAM) 00:00: into [place] 10 % (80 00 rectum at Medica l mg) foam bedtime. Branch hydrocortis 2021-08 Yes [id number] 1{appli Insert 1 [facility] 09-30 cator} Applicator ity of (CORTIFOAM) 00:00: into [place] 10 % (80 00 rectum at Medica l mg) foam bedtime. Branch hydrocortis 2021-08 Yes [id number] 1{appli Insert 1 [facility] 09-30 cator} Applicator ity of (CORTIFOAM) 00:00: into [place] 10 % (80 00 rectum at Medica l mg) foam bedtime. Branch hydrocortis 2021-08 Yes [id number] 1{appli Insert 1 [facility] 2 cator} Applicator ity of (CORTIFOAM) 00:00: into [place] 10 % (80 00 rectum at Medica l mg) foam bedtime. Branch hydrocortis 2021-08 Yes [id number] 1{appli Insert 1 [facility] 2- cator} Applicator ity of (CORTIFOAM) 00:00: into [place] 10 % (80 00 rectum at Medica l mg) foam bedtime. Branch hydrocortis 2021-08 Yes [id number] 1{appli Insert 1 [facility] 09-30 cator} Applicator ity of (CORTIFOAM) 00:00: into [place] 10 % (80 00 rectum at Medica l mg) foam bedtime. Branch hydrocortis 2021-08 Yes [id number] 1{appli Insert 1 [facility] 09-30 cator} Applicator ity of (CORTIFOAM) 00:00: into [place] 10 % (80 00 rectum at Medica l mg) foam bedtime. Branch hydrocortis 2021-08 Yes [id number] 1{appli Insert 1 [facility] 09-30 cator} Applicator ity of (CORTIFOAM) 00:00: into [place] 10 % (80 00 rectum at Medica l mg) foam bedtime. Branch hydrocortis 2021-08 Yes [id number] 1{appli Insert 1 [facility] 09-30 cator} Applicator ity of (CORTIFOAM) 00:00: into [place] 10 % (80 00 rectum at Medica l mg) foam bedtime. Branch hydrocortis 2021-08 Yes [id number] 1{appli Insert 1 [facility] 09-30 cator} Applicator ity of (CORTIFOAM) 00:00: into [place] 10 % (80 00 rectum at Medica l mg) foam bedtime. Branch hydrocortis 2021-08 Yes [id number] 1{appli Insert 1 [facility] 09-30 cator} Applicator ity of (CORTIFOAM) 00:00: into [place] 10 % (80 00 rectum at Medica l mg) foam bedtime. Branch hydrocortis 2021-08 Yes [id number] 1{appli Insert 1 [facility] 09-30 cator} Applicator ity of (CORTIFOAM) 00:00: into [place] 10 % (80 00 rectum at Medica l mg) foam bedtime. Branch hydrocortis 2021-08 Yes [id number] 1{appli Insert 1 09-30 cator} Applicator ity of (CORTIFOAM) 00:00: into [place] 10 % (80 00 rectum at Medica l mg) foam bedtime. Branch hydrocortis 2021-08 Yes [id number] 1{appli Insert 1 [facility] 09-30 cator} Applicator ity of (CORTIFOAM) 00:00: into [place] 10 % (80 00 rectum at Medica l mg) foam bedtime. Branch hydrocortis 2021-08 Yes [id number] 1{appli Insert 1 [facility] 09-30 cator} Applicator ity of (CORTIFOAM) 00:00: into [place] 10 % (80 00 rectum at Medica l mg) foam bedtime. Branch hydrocortis 2021-08 Yes [id number] 1{appli Insert 1 [facility] 09-30 cator} Applicator ity of (CORTIFOAM) 00:00: into [place] 10 % (80 00 rectum at Medica l mg) foam bedtime. Branch hydrocortis 2021-08 Yes [id number] 1{appli Insert 1 [facility] 09-30 cator} Applicator ity of (CORTIFOAM) 00:00: into [place] 10 % (80 00 rectum at Medica l mg) foam bedtime. Branch hydrocortis 2021-08 Yes [id number] 1{appli Insert 1 [facility] 09-30 cator} Applicator ity of (CORTIFOAM) 00:00: into [place] 10 % (80 00 rectum at Medica l mg) foam bedtime. Branch hydrocortis 2021-08 Yes [id number] 1{appli Insert 1 [facility] 09-30 cator} Applicator ity of (CORTIFOAM) 00:00: into [place] 10 % (80 00 rectum at Medica l mg) foam bedtime. Branch hydrocortis 2021-08 Yes [id number] 1{appli Insert 1 [facility] 09-30 cator} Applicator ity of (CORTIFOAM) 00:00: into [place] 10 % (80 00 rectum at Medica l mg) foam bedtime. Branch hydrocortis 2021-08 Yes [id number] 1{appli Insert 1 [facility] 09-30 cator} Applicator ity of (CORTIFOAM) 00:00: into [place] 10 % (80 00 rectum at Medica l mg) foam bedtime. Branch hydrocortis 2021-08 Yes [id number] 1{appli Insert 1 [facility] 09-30 cator} Applicator ity of (CORTIFOAM) 00:00: into [place] 10 % (80 00 rectum at Medica l mg) foam bedtime. Branch hydrocortis 2021-08 Yes [id number] 1{appli Insert 1 [facility] 09-30 cator} Applicator ity of (CORTIFOAM) 00:00: into [place] 10 % (80 00 rectum at Medica l mg) foam bedtime. Branch hydrocortis 2021-08 Yes [id number] 1{appli Insert 1 [facility] 09-30 cator} Applicator ity of (CORTIFOAM) 00:00: into [place] 10 % (80 00 rectum at Medica l mg) foam bedtime. Branch hydrocortis 2021-08 Yes [id number] 1{appli Insert 1 [facility] 09-30 cator} Applicator ity of (CORTIFOAM) 00:00: into [place] 10 % (80 00 rectum at Medica l mg) foam bedtime. Branch hydrocortis 2021-08 Yes [id number] 1{appli Insert 1 [facility] 09-30 cator} Applicator ity of (CORTIFOAM) 00:00: into [place] 10 % (80 00 rectum at Medica l mg) foam bedtime. Branch hydrocortis 2021-08 Yes [id number] 1{appli Insert 1 [facility] 09-30 cator} Applicator ity of (CORTIFOAM) 00:00: into [place] 10 % (80 00 rectum at Medica l mg) foam bedtime. Branch hydrocortis 2021-08 Yes [id number] 1{appli Insert 1 [facility] 09-30 cator} Applicator ity of (CORTIFOAM) 00:00: into [place] 10 % (80 00 rectum at Medica l mg) foam bedtime. Branch hydrocortis 2021-08 Yes [id number] 1{appli Insert 1 [facility] 2 cator} Applicator ity of (CORTIFOAM) 00:00: into [place] 10 % (80 00 rectum at Medica l mg) foam bedtime. Branch hydrocortis 2021-08 Yes [id number] 1{appli Insert 1 [facility] 2- cator} Applicator ity of (CORTIFOAM) 00:00: into [place] 10 % (80 00 rectum at Medica l mg) foam bedtime. Branch hydrocortis 2021-08 Yes [id number] 1{appli Insert 1 [facility] 2-02 cator} Applicator ity of (CORTIFOAM) 00:00: into [place] 10 % (80 00 rectum at Medica l mg) foam bedtime. [place] hydrocortis 2021-08 Yes [id number] 1{appli Insert 1 [facility] 2-02 cator} Applicator ity of (CORTIFOAM) 00:00: into [place] 10 % (80 00 rectum at Medica l mg) foam bedtime. Branch gabapentin 2021-08- No [id number] 300mg Take 3 [facility] 100 mg 2- 12-17 capsules ity of capsule 00:00: 05:59 by mouth [place] 00 :00 in the Medical morning Branch and 3 capsules at noon and 3 capsules in the evening. Do all this for 14 days. gabapentin 2021-08- No [id number] 300mg Take 3 [facility] 100 mg 2- 12-17 capsules ity of capsule 00:00: 05:59 by mouth [place] 00 :00 in the [facility] and 3 capsules at noon and 3 capsules in the evening. Do all this for 14 days. gabapentin 2021-08- No [id number] 300mg Take 3 [facility] 100 mg 2- 12-17 capsules ity of capsule 00:00: 05:59 by mouth [place] 00 :00 in the [facility] and 3 capsules at noon and 3 capsules in the evening. Do all this for 14 days. gabapentin 2021-08- No [id number] 300mg Take 3 [facility] 100 mg 2- 12-17 capsules ity of capsule 00:00: 05:59 by mouth [place] 00 :00 in the [facility] and 3 capsules at noon and 3 capsules in the evening. Do all this for 14 days. gabapentin 2021-08- No [id number] 300mg Take 3 [facility] 100 mg 2-02 12-17 capsules ity of capsule 00:00: 05:59 by mouth [place] 00 :00 in the [facility] and 3 capsules at noon and 3 capsules in the evening. Do all this for 14 days. gabapentin 2021-08- No [id number] 300mg Take 3 [facility] 100 mg 2-02 12-17 capsules ity of capsule 00:00: 05:59 by mouth [place] 00 :00 in the Medical morning Branch and 3 capsules at noon and 3 capsules in the evening. Do all this for 14 days. methocarbam 2021-08 No [id number] 750mg Take 1 [facility] oL 750 mg 09-30 tablet by ity of tablet 00:00: 05:59 mouth in [place] 00 :00 the Medical morning Branch and 1 tablet at noon and 1 tablet in the evening. Do all this for 10 days. methocarbam 2021-08- No [id number] 750mg Take 1 [facility] oL 750 mg 09-30 tablet by ity of tablet 00:00: 05:59 mouth in [place] 00 :00 the Medical morning Branch and 1 tablet at noon and 1 tablet in the evening. Do all this for 10 days. methocarbam 2021-08 No [id number] 750mg Take 1 [facility] oL 750 mg 09-30 tablet by ity of tablet 00:00: 05:59 mouth in [place] 00 :00 the Medical morning Branch and 1 tablet at noon and 1 tablet in the evening. Do all this for 10 days. traMADoL 50 2021-08 4647 50mg Take 1 [facility] vers mg tablet 09-30 12-10 tablet by ity of 00:00: 05:59 mouth [place] 00 :00 every 6 Medical (six) Branch hours as needed for Pain (scale 4-6) or Pain (scale 7-10) for up to 7 days. Indication s: acute pain HYDROcodone 2021-08 4647 1{tbl} Take 1 U nivers -acetaminop 09-30-10 tablet by it y of hen 5-325 00:00: 05:59 mouth [place] mg tablet 00 :00 every 6 Medical (six) Branch hours as needed for Pain (scale 4-6) or Pain (scale 7-10) for up to 7 days. Indication s: acute pain traMADoL 50 2021-08 No [id number] 50mg Take 1 [facility] vers mg tablet 2 12-10 tablet by ity of 00:00: 05:59 mouth [place] 00 :00 every 6 Medical (six) Branch hours as needed for Pain (scale 4-6) or Pain (scale 7-10) for up to 7 days. Indication s: acute pain HYDROcodone 2021-08 4647 1{tbl} Take 1 U nivers -acetaminop 2-02 12-10 tablet by it y of hen 5-325 00:00: 05:59 mouth [place] mg tablet 00 :00 every 6 Medical (six) Branch hours as needed for Pain (scale 4-6) or Pain (scale 7-10) for up to 7 days. Indication s: acute pain traMADoL 50 2021-08 No 4647 50mg Take 1 [facility] vers mg tablet 09-30 12-10 tablet by ity of 00:00: 05:59 mouth [place] 00 :00 every 6 Medical (six) Branch hours as needed for Pain (scale 4-6) or Pain (scale 7-10) for up to 7 days. Indication s: acute pain HYDROcodone 2021-08 No 4647 1{tbl} Take 1 U nivers -acetaminop 2-02 12-10 tablet by it y of hen 5-325 00:00: 05:59 mouth [place] mg tablet 00 :00 every 6 Medical (six) Branch hours as needed for Pain (scale 4-6) or Pain (scale 7-10) for up to 7 days. Indication s: acute pain fish 2021-08 Yes 2{capsu Take 2 [facility] oil/borage/ 1-30 le} capsules ity of flax/om3,6, 11:40: by mouth [place] 9 1 (OMEGA 31 daily. Medical 3-6-9 ORAL) Branch ciclopirox 2021-08 Yes [id number] Apply to [facility] ([facility]) 8 1-15 area(s) at ity of % solution 00:00: bedtime. [place] 00 Apply to Medical fungal Branch toenails once daily. Every 7 days please file toenails with nail file and apply rubbing alcohol. ciclopirox 2021-08 Yes [id number] Apply to [facility] ([facility]) 8 1-15 area(s) at ity of % solution 00:00: bedtime. [place] 00 Apply to Medical fungal Branch toenails once daily. Every 7 days please file toenails with nail file and apply rubbing alcohol. ciclopirox 2021-08 Yes [id number] Apply to [facility] ([facility]) 8 1-15 area(s) at ity of % solution 00:00: bedtime. [place] 00 Apply to Medical fungal Branch toenails once daily. Every 7 days please file toenails with nail file and apply rubbing alcohol. ciclopirox 2021-08 Yes [id number] Apply to [facility] ([facility]) 8 1-15 area(s) at ity of % solution 00:00: bedtime. [place] 00 Apply to Medical fungal Branch toenails once daily. Every 7 days please file toenails with nail file and apply rubbing alcohol. ciclopirox 2021-08 Yes [id number] Apply to [facility] ([facility]) 8 1-15 area(s) at ity of % solution 00:00: bedtime. [place] 00 Apply to Medical fungal Branch toenails once daily. Every 7 days please file toenails with nail file and apply rubbing alcohol. ciclopirox 2021-08 Yes [id number] Apply to [facility]) 8 1-15 area(s) at ity of % solution 00:00: bedtime. [place] 00 Apply to Medical fungal Branch toenails once daily. Every 7 days please file toenails with nail file and apply rubbing alcohol. ciclopirox 2021-08 Yes [id number] Apply to [facility] ([facility]) 8 1-15 area(s) at ity of % solution 00:00: bedtime. [place] 00 Apply to Medical fungal Branch toenails once daily. Every 7 days please file toenails with nail file and apply rubbing alcohol. ciclopirox 2021-08 Yes [id number] Apply to [facility] ([facility]) 8 1-15 area(s) at ity of % solution 00:00: bedtime. [place] 00 Apply to Medical fungal Branch toenails once daily. Every 7 days please file toenails with nail file and apply rubbing alcohol. ciclopirox 2021-08 Yes [id number] Apply to [facility] ([facility]) 8 1-15 area(s) at ity of % solution 00:00: bedtime. [place] 00 Apply to Medical fungal Branch toenails once daily. Every 7 days please file toenails with nail file and apply rubbing alcohol. ciclopirox 2021-08 Yes [id number] Apply to [facility] ([facility]) 8 1-15 area(s) at ity of % solution 00:00: bedtime. [place] 00 Apply to Medical fungal Branch toenails once daily. Every 7 days please file toenails with nail file and apply rubbing alcohol. ciclopirox 2021-08 Yes [id number] Apply to [facility] ([facility]) 8 1-15 area(s) at ity of % solution 00:00: bedtime. [place] 00 Apply to Medical fungal Branch toenails once daily. Every 7 days please file toenails with nail file and apply rubbing alcohol. ciclopirox 2021-08 Yes [id number] Apply to [facility] ([facility]) 8 1-15 area(s) at ity of % solution 00:00: bedtime. [place] 00 Apply to Medical fungal Branch toenails once daily. Every 7 days please file toenails with nail file and apply rubbing alcohol. ciclopirox 2021-08 Yes [id number] Apply to [facility] ([facility]) 8 1-15 area(s) at ity of % solution 00:00: bedtime. [place] 00 Apply to Medical fungal Branch toenails once daily. Every 7 days please file toenails with nail file and apply rubbing alcohol. ciclopirox 2021-08 Yes [id number] Apply to [facility] ([facility]) 8 1-15 area(s) at ity of % solution 00:00: bedtime. [place] 00 Apply to Medical fungal Branch toenails once daily. Every 7 days please file toenails with nail file and apply rubbing alcohol. ciclopirox 2021-08 Yes [id number] Apply to [facility] ([facility]) 8 1-15 area(s) at ity of % solution 00:00: bedtime. [place] 00 Apply to Medical fungal Branch toenails once daily. Every 7 days please file toenails with nail file and apply rubbing alcohol. ciclopirox 2021-08 Yes [id number] Apply to [facility] ([facility]) 8 1-15 area(s) at ity of % solution 00:00: bedtime. [place] 00 Apply to Medical fungal Branch toenails once daily. Every 7 days please file toenails with nail file and apply rubbing alcohol. ciclopirox 2021-08 Yes [id number] Apply to [facility] ([facility]) 8 1-15 area(s) at ity of % solution 00:00: bedtime. [place] 00 Apply to Medical fungal Branch toenails once daily. Every 7 days please file toenails with nail file and apply rubbing alcohol. ciclopirox 2021-08 Yes [id number] Apply to [facility] ([facility]) 8 1-15 area(s) at ity of % solution 00:00: bedtime. [place] 00 Apply to Medical fungal Branch toenails once daily. Every 7 days please file toenails with nail file and apply rubbing alcohol. ciclopirox 2021-08 Yes [id number] Apply to [facility] ([facility]) 8 1-15 area(s) at ity of % solution 00:00: bedtime. [place] 00 Apply to Medical fungal Branch toenails once daily. Every 7 days please file toenails with nail file and apply rubbing alcohol. ciclopirox 2021-08 Yes [id number] Apply to [facility] ([facility]) 8 1-15 area(s) at ity of % solution 00:00: bedtime. [place] 00 Apply to Medical fungal Branch toenails once daily. Every 7 days please file toenails with nail file and apply rubbing alcohol. ciclopirox 2021-08 Yes [id number] Apply to [facility] ([facility]) 8 1-15 area(s) at ity of % solution 00:00: bedtime. [place] 00 Apply to Medical fungal Branch toenails once daily. Every 7 days please file toenails with nail file and apply rubbing alcohol. ciclopirox 2021-08 Yes [id number] Apply to [facility] ([facility]) 8 1-15 area(s) at ity of % solution 00:00: bedtime. [place] 00 Apply to Medical fungal Branch toenails once daily. Every 7 days please file toenails with nail file and apply rubbing alcohol. ciclopirox 2021-08 Yes [id number] Apply to [facility] ([facility]) 8 1-15 area(s) at ity of % solution 00:00: bedtime. [place] 00 Apply to Medical fungal Branch toenails once daily. Every 7 days please file toenails with nail file and apply rubbing alcohol. ciclopirox 2021-08 Yes [id number] Apply to [facility] ([facility]) 8 1-15 area(s) at ity of % solution 00:00: bedtime. [place] 00 Apply to Medical fungal Branch toenails once daily. Every 7 days please file toenails with nail file and apply rubbing alcohol. ciclopirox 2021-08 Yes [id number] Apply to [facility] ([facility]) 8 1-15 area(s) at ity of % solution 00:00: bedtime. [place] 00 Apply to Medical fungal Branch toenails once daily. Every 7 days please file toenails with nail file and apply rubbing alcohol. ciclopirox 2021-08 Yes [id number] Apply to [facility] ([facility]) 8 1-15 area(s) at ity of % solution 00:00: bedtime. [place] 00 Apply to Medical fungal Branch toenails once daily. Every 7 days please file toenails with nail file and apply rubbing alcohol. ciclopirox 2021-08 Yes [id number] Apply to [facility] ([facility]) 8 1-15 area(s) at ity of % solution 00:00: bedtime. [place] 00 Apply to Medical fungal Branch toenails once daily. Every 7 days please file toenails with nail file and apply rubbing alcohol. ciclopirox 2021-08 Yes [id number] Apply to [facility] ([facility]) 8 1-15 area(s) at ity of % solution 00:00: bedtime. [place] 00 Apply to Medical fungal Branch toenails once daily. Every 7 days please file toenails with nail file and apply rubbing alcohol. ciclopirox 2021-08 Yes [id number] Apply to [facility] ([facility]) 8 1-15 area(s) at ity of % solution 00:00: bedtime. [place] 00 Apply to Medical fungal Branch toenails once daily. Every 7 days please file toenails with nail file and apply rubbing alcohol. ciclopirox 2021-08 Yes [id number] Apply to [facility] ([facility]) 8 1-15 area(s) at ity of % solution 00:00: bedtime. [place] 00 Apply to Medical fungal Branch toenails once daily. Every 7 days please file toenails with nail file and apply rubbing alcohol. ciclopirox 2021-08 Yes [id number] Apply to [facility] ([facility]) 8 1-15 area(s) at ity of % solution 00:00: bedtime. [place] 00 Apply to Medical fungal Branch toenails once daily. Every 7 days please file toenails with nail file and apply rubbing alcohol. ciclopirox 2021-08 Yes [id number] Apply to [facility] ([facility]) 8 1-15 area(s) at ity of % solution 00:00: bedtime. [place] 00 Apply to Medical fungal Branch toenails once daily. Every 7 days please file toenails with nail file and apply rubbing alcohol. ciclopirox 2021-08 Yes [id number] Apply to [facility] ([facility]) 8 1-15 area(s) at ity of % solution 00:00: bedtime. [place] 00 Apply to Medical fungal Branch toenails once daily. Every 7 days please file toenails with nail file and apply rubbing alcohol. ciclopirox 2021-08 Yes [id number] Apply to [facility] ([facility]) 8 1-15 area(s) at ity of % solution 00:00: bedtime. [place] 00 Apply to Medical fungal Branch toenails once daily. Every 7 days please file toenails with nail file and apply rubbing alcohol. ciclopirox 2021-08 Yes [id number] Apply to [facility] ([facility]) 8 1-15 area(s) at ity of % solution 00:00: bedtime. [place] 00 Apply to Medical fungal Branch toenails once daily. Every 7 days please file toenails with nail file and apply rubbing alcohol. ciclopirox 2021-08 Yes [id number] Apply to [facility] ([facility]) 8 1-15 area(s) at ity of % solution 00:00: bedtime. [place] 00 Apply to Medical fungal Branch toenails once daily. Every 7 days please file toenails with nail file and apply rubbing alcohol. ciclopirox 2021-08 Yes [id number] Apply to [facility] ([facility]) 8 1-15 area(s) at ity of % solution 00:00: bedtime. [place] 00 Apply to Medical fungal Branch toenails once daily. Every 7 days please file toenails with nail file and apply rubbing alcohol. ciclopirox 2021-08 Yes [id number] Apply to [facility] ([facility]) 8 1-15 area(s) at ity of % solution 00:00: bedtime. [place] 00 Apply to Medical fungal Branch toenails once daily. Every 7 days please file toenails with nail file and apply rubbing alcohol. ciclopirox 2021-08 Yes [id number] Apply to [facility] ([facility]) 8 1-15 area(s) at ity of % solution 00:00: bedtime. [place] 00 Apply to Medical fungal Branch toenails once daily. Every 7 days please file toenails with nail file and apply rubbing alcohol. ciclopirox 2021-08 Yes [id number] Apply to [facility] ([facility]) 8 1-15 area(s) at ity of % solution 00:00: bedtime. [place] 00 Apply to Medical fungal Branch toenails once daily. Every 7 days please file toenails with nail file and apply rubbing alcohol. ciclopirox 2021-08 Yes [id number] Apply to [facility] ([facility]) 8 1-15 area(s) at ity of % solution 00:00: bedtime. [place] 00 Apply to Medical fungal Branch toenails once daily. Every 7 days please file toenails with nail file and apply rubbing alcohol. ciclopirox 2021-08 Yes [id number] Apply to [facility] ([facility]) 8 1-15 area(s) at ity of % solution 00:00: bedtime. [place] 00 Apply to Medical fungal Branch toenails once daily. Every 7 days please file toenails with nail file and apply rubbing alcohol. ciclopirox 2021-08 Yes [id number] Apply to [facility] ([facility]) 8 1-15 area(s) at ity of % solution 00:00: bedtime. [place] 00 Apply to Medical fungal Branch toenails once daily. Every 7 days please file toenails with nail file and apply rubbing alcohol. ciclopirox 2021-08 Yes [id number] Apply to [facility] ([facility]) 8 1-15 area(s) at ity of % solution 00:00: bedtime. [place] 00 Apply to Medical fungal Branch toenails once daily. Every 7 days please file toenails with nail file and apply rubbing alcohol. ciclopirox 2021-08 Yes [id number] Apply to [facility] ([facility]) 8 1-15 area(s) at ity of % solution 00:00: bedtime. [place] 00 Apply to Medical fungal Branch toenails once daily. Every 7 days please file toenails with nail file and apply rubbing alcohol. ciclopirox 2021-08 Yes [id number] Apply to Univers ([facility]) 8 1-15 area(s) at ity of % solution 00:00: bedtime. Adrian as 00 Apply to Medical fungal Branch toenails once daily. Every 7 days please file toenails with nail file and apply rubbing alcohol. ciclopirox 2021-08 Yes [id number] Apply to [facility] ([facility]) 8 1-15 area(s) at ity of % solution 00:00: bedtime. Adrian as 00 Apply to [facility] toenails once daily. Every 7 days please file toenails with nail file and apply rubbing alcohol. ciclopirox 2021-08 Yes [id number] Apply to [facility] ([facility]) 8 1-15 area(s) at ity of % solution 00:00: bedtime. Adrian as 00 Apply to [facility] fungal Branch toenails once daily. Every 7 days please file toenails with nail file and apply rubbing alcohol. ciclopirox 2021-08 Yes [id number] Apply to [facility] ([facility]) 8 1-15 area(s) at ity of % solution 00:00: bedtime. Adrian as 00 Apply to [facility] toenails once daily. Every 7 days please file toenails with nail file and apply rubbing alcohol. ciclopirox 2021-08 Yes [id number] Apply to [facility] ([facility]) 8 1-15 area(s) at ity of % solution 00:00: bedtime. Adrian as 00 Apply to [facility] Branch toenails once daily. Every 7 days please file toenails with nail file and apply rubbing alcohol. ciclopirox 2021-08 Yes [id number] Apply to [facility] ([facility]) 8 1-15 area(s) at ity of % solution 00:00: bedtime. Adrian as 00 Apply to [facility] toenails once daily. Every 7 days please file toenails with nail file and apply rubbing alcohol. ciclopirox 2021-08 Yes [id number] Apply to [facility] ([facility]) 8 1-15 area(s) at ity of % solution 00:00: bedtime. Adrian as 00 Apply to [facility] toenails once daily. Every 7 days please file toenails with nail file and apply rubbing alcohol. ciclopirox 2021-08 Yes [id number] Apply to [facility] ([facility]) 8 1-15 area(s) at ity of % solution 00:00: bedtime. Adrian as 00 Apply to [facility] toenails once daily. Every 7 days please file toenails with nail file and apply rubbing alcohol. ciclopirox 2021-08 Yes [id number] Apply to [facility]) 8 1-15 area(s) at ity of % solution 00:00: bedtime. Adrian as 00 Apply to [facility] fungal Branch toenails once daily. Every 7 days please file toenails with nail file and apply rubbing alcohol. ciclopirox 2021-08 Yes [id number] Apply to [facility]) 8 1-15 area(s) at ity of % solution 00:00: bedtime. Adrian as 00 Apply to [facility] fungal Branch toenails once daily. Every 7 days please file toenails with nail file and apply rubbing alcohol. ciclopirox 2021-08 Yes [id number] Apply to [facility]) 8 1-15 area(s) at ity of % solution 00:00: bedtime. Adrian as 00 Apply to [facility] fungal Branch toenails once daily. Every 7 days please file toenails with nail file and apply rubbing alcohol. ciclopirox 2021-08 Yes [id number] Apply to [facility] ([facility]) 8 1-15 area(s) at ity of % solution 00:00: bedtime. Adrian as 00 Apply to [facility] fungal Branch toenails once daily. Every 7 days please file toenails with nail file and apply rubbing alcohol. ciclopirox 2021-08 Yes [id number] Apply to [facility] ([facility]) 8 1-15 area(s) at ity of % solution 00:00: bedtime. Adrian as 00 Apply to [facility] fungal Branch toenails once daily. Every 7 days please file toenails with nail file and apply rubbing alcohol. ciclopirox 2021-08 Yes [id number] Apply to [facility] ([facility]) 8 1-15 area(s) at ity of % solution 00:00: bedtime. Adrian as 00 Apply to [facility] fungal Branch toenails once daily. Every 7 days please file toenails with nail file and apply rubbing alcohol. ciclopirox 2021-08 Yes [id number] Apply to [facility] ([facility]) 8 1-15 area(s) at ity of % solution 00:00: bedtime. Adrian as 00 Apply to [facility] fungal Branch toenails once daily. Every 7 days please file toenails with nail file and apply rubbing alcohol. ciclopirox 2021-08 Yes [id number] Apply to [facility] ([facility]) 8 1-15 area(s) at ity of % solution 00:00: bedtime. Adrian as 00 Apply to [facility] fungal Branch toenails once daily. Every 7 days please file toenails with nail file and apply rubbing alcohol. ciclopirox 2021-08 Yes [id number] Apply to [facility] ([facility]) 8 1-15 area(s) at ity of % solution 00:00: bedtime. Adrian as 00 Apply to [facility] fungal [facility] toenails once daily. Every 7 days please file toenails with nail file and apply rubbing alcohol. ciclopirox 2021-08 Yes [id number] Apply to [facility] ([facility]) 8 1-15 area(s) at ity of % solution 00:00: bedtime. Adrian as 00 Apply to [facility] fungal Branch toenails once daily. Every 7 days please file toenails with nail file and apply rubbing alcohol. ciclopirox 2021-08 Yes [id number] Apply to [facility] ([facility]) 8 1-15 area(s) at ity of % solution 00:00: bedtime. Adrian as 00 Apply to [facility] toenails once daily. Every 7 days please file toenails with nail file and apply rubbing alcohol. ciclopirox 2021-08 Yes [id number] Apply to [facility] ([facility]) 8 1-15 area(s) at ity of % solution 00:00: bedtime. Adrian as 00 Apply to [facility] fungal Branch toenails once daily. Every 7 days please file toenails with nail file and apply rubbing alcohol. ciclopirox 2021-08 Yes [id number] Apply to [facility] ([facility]) 8 1-15 area(s) at ity of % solution 00:00: bedtime. Adrian as 00 Apply to [facility] fungal Branch toenails once daily. Every 7 days please file toenails with nail file and apply rubbing alcohol. ciclopirox 2021-08 Yes [id number] Apply to [facility] ([facility]) 8 1-15 area(s) at ity of % solution 00:00: bedtime. Adrian as 00 Apply to [facility] fungal Branch toenails once daily. Every 7 days please file toenails with nail file and apply rubbing alcohol. ciclopirox 2021-08 Yes [id number] Apply to [facility] ([facility]) 8 1-15 area(s) at ity of % solution 00:00: bedtime. Adrian as 00 Apply to [facility] fungal Branch toenails once daily. Every 7 days please file toenails with nail file and apply rubbing alcohol. ciclopirox 2021-08 Yes [id number] Apply to [facility] ([facility]) 8 1-15 area(s) at ity of % solution 00:00: bedtime. Adrian as 00 Apply to [facility] fungal Branch toenails once daily. Every 7 days please file toenails with nail file and apply rubbing alcohol. ciclopirox 2021-08 Yes [id number] Apply to [facility] ([facility]) 8 1-15 area(s) at ity of % solution 00:00: bedtime. Adrian as 00 Apply to [facility] fungal Branch toenails once daily. Every 7 days please file toenails with nail file and apply rubbing alcohol. ciclopirox 2021-08 Yes [id number] Apply to [facility] ([facility]) 8 1-15 area(s) at ity of % solution 00:00: bedtime. Adrian as 00 Apply to [facility] fungal [facility] toenails once daily. Every 7 days please file toenails with nail file and apply rubbing alcohol. ciclopirox 2021-08 Yes [id number] Apply to [facility] ([facility]) 8 1-15 area(s) at ity of % solution 00:00: bedtime. Adrian as 00 Apply to [facility] fungal Branch toenails once daily. Every 7 days please file toenails with nail file and apply rubbing alcohol. ciclopirox 2021-08 Yes [id number] Apply to [facility] ([facility]) 8 1-15 area(s) at ity of % solution 00:00: bedtime. Adrian as 00 Apply to [facility] fungal Branch toenails once daily. Every 7 days please file toenails with nail file and apply rubbing alcohol. ciclopirox 2021-08 Yes [id number] Apply to [facility] ([facility]) 8 1-15 area(s) at ity of % solution 00:00: bedtime. Adrian as 00 Apply to [facility] fungal [facility] toenails once daily. Every 7 days please file toenails with nail file and apply rubbing alcohol. ciclopirox 2021-08 Yes [id number] Apply to [facility] ([facility]) 8 1-15 area(s) at ity of % solution 00:00: bedtime. Adrian as 00 Apply to [facility] fungal Branch toenails once daily. Every 7 days please file toenails with nail file and apply rubbing alcohol. ciclopirox 2021-08 Yes [id number] Apply to [facility] ([facility]) 8 1-15 area(s) at ity of % solution 00:00: bedtime. Adrian as 00 Apply to [facility] Branch toenails once daily. Every 7 days please file toenails with nail file and apply rubbing alcohol. ciclopirox 2021-08 Yes [id number] Apply to [facility] ([facility]) 8 1-15 area(s) at ity of % solution 00:00: bedtime. Adrian as 00 Apply to [facility] toenails once daily. Every 7 days please file toenails with nail file and apply rubbing alcohol. ciclopirox 2021-08 Yes [id number] Apply to [facility] ([facility]) 8 1-15 area(s) at ity of % solution 00:00: bedtime. Adrian as 00 Apply to [facility] Branch toenails once daily. Every 7 days please file toenails with nail file and apply rubbing alcohol. ciclopirox 2021-08 Yes [id number] Apply to [facility] ([facility]) 8 1-15 area(s) at ity of % solution 00:00: bedtime. Adrian as 00 Apply to [facility] toenails once daily. Every 7 days please file toenails with nail file and apply rubbing alcohol. ciclopirox 2021-08 Yes [id number] Apply to [facility] ([facility]) 8 1-15 area(s) at ity of % solution 00:00: bedtime. Adrian as 00 Apply to [facility] toenails once daily. Every 7 days please file toenails with nail file and apply rubbing alcohol. ciclopirox 2021-08 Yes [id number] Apply to [facility] ([facility]) 8 1-15 area(s) at ity of % solution 00:00: bedtime. Adrian as 00 Apply to [facility] toenails once daily. Every 7 days please file toenails with nail file and apply rubbing alcohol. ciclopirox 2021-08 Yes [id number] Apply to [facility] ([facility]) 8 1-15 area(s) at ity of % solution 00:00: bedtime. Adrian as 00 Apply to [facility] toenails once daily. Every 7 days please file toenails with nail file and apply rubbing alcohol. ciclopirox 2021-08 Yes [id number] Apply to [facility] ([facility]) 8 1-15 area(s) at ity of % solution 00:00: bedtime. Adrian as 00 Apply to [facility] Branch toenails once daily. Every 7 days please file toenails with nail file and apply rubbing alcohol. ciclopirox 2021-08 Yes [id number] Apply to [facility] ([facility]) 8 1-15 area(s) at ity of % solution 00:00: bedtime. Adrian as 00 Apply to [facility] fungal Branch toenails once daily. Every 7 days please file toenails with nail file and apply rubbing alcohol. ciclopirox 2021-08 Yes [id number] Apply to [facility] ([facility]) 8 1-15 area(s) at ity of % solution 00:00: bedtime. Adrian as 00 Apply to [facility] Branch toenails once daily. Every 7 days please file toenails with nail file and apply rubbing alcohol. ciclopirox 2021-08 Yes [id number] Apply to [facility] ([facility]) 8 1-15 area(s) at ity of % solution 00:00: bedtime. Adrian as 00 Apply to [facility] fungal Branch toenails once daily. Every 7 days please file toenails with nail file and apply rubbing alcohol. ciclopirox 2021-08 Yes [id number] Apply to [facility] ([facility]) 8 1-15 area(s) at ity of % solution 00:00: bedtime. Adrian as 00 Apply to [facility] Branch toenails once daily. Every 7 days please file toenails with nail file and apply rubbing alcohol. ciclopirox 2021-08 Yes [id number] Apply to [facility] ([facility]) 8 1-15 area(s) at ity of % solution 00:00: bedtime. Adrian as 00 Apply to [facility] Branch toenails once daily. Every 7 days please file toenails with nail file and apply rubbing alcohol. ciclopirox 2021-08 Yes [id number] Apply to [facility] ([facility]) 8 1-15 area(s) at ity of % solution 00:00: bedtime. Adrian as 00 Apply to [facility] toenails once daily. Every 7 days please file toenails with nail file and apply rubbing alcohol. ciclopirox 2021-08 Yes [id number] Apply to [facility] ([facility]) 8 1-15 area(s) at ity of % solution 00:00: bedtime. Adrian as 00 Apply to [facility] toenails once daily. Every 7 days please file toenails with nail file and apply rubbing alcohol. ciclopirox 2021-08 Yes [id number] Apply to [facility] ([facility]) 8 1-15 area(s) at ity of % solution 00:00: bedtime. Adrian as 00 Apply to [facility] toenails once daily. Every 7 days please file toenails with nail file and apply rubbing alcohol. ciclopirox 2021-08 Yes [id number] Apply to [facility] ([facility]) 8 1-15 area(s) at ity of % solution 00:00: bedtime. Adrian as 00 Apply to [facility] toenails once daily. Every 7 days please file toenails with nail file and apply rubbing alcohol. ciclopirox 2021-08 Yes [id number] Apply to [facility] ([facility]) 8 1-15 area(s) at ity of % solution 00:00: bedtime. Adrian as 00 Apply to [facility] toenails once daily. Every 7 days please file toenails with nail file and apply rubbing alcohol. ciclopirox 2021-08 Yes [id number] Apply to [facility] ([facility]) 8 1-15 area(s) at ity of % solution 00:00: bedtime. Adrian as 00 Apply to [facility] Branch toenails once daily. Every 7 days please file toenails with nail file and apply rubbing alcohol. ciclopirox 2021-08 Yes [id number] Apply to [facility] ([facility]) 8 1-15 area(s) at ity of % solution 00:00: bedtime. Adrian as 00 Apply to [facility] Branch toenails once daily. Every 7 days please file toenails with nail file and apply rubbing alcohol. ciclopirox 2021-08 Yes [id number] Apply to [facility] ([facility]) 8 1-15 area(s) at ity of % solution 00:00: bedtime. Adrian as 00 Apply to [facility] toenails once daily. Every 7 days please file toenails with nail file and apply rubbing alcohol. ciclopirox 2021-08 Yes [id number] Apply to [facility] ([facility]) 8 1-15 area(s) at ity of % solution 00:00: bedtime. Adrian as 00 Apply to [facility] Branch toenails once daily. Every 7 days please file toenails with nail file and apply rubbing alcohol. ciclopirox 2021-08 Yes [id number] Apply to [facility] ([facility]) 8 1-15 area(s) at ity of % solution 00:00: bedtime. Adrian as 00 Apply to [facility] fungal Branch toenails once daily. Every 7 days please file toenails with nail file and apply rubbing alcohol. ciclopirox 2021-08 Yes [id number] Apply to [facility] ([facility]) 8 1-15 area(s) at ity of % solution 00:00: bedtime. Adrian as 00 Apply to [facility] Branch toenails once daily. Every 7 days please file toenails with nail file and apply rubbing alcohol. ciclopirox 2021-08 Yes [id number] Apply to [facility] ([facility]) 8 1-15 area(s) at ity of % solution 00:00: bedtime. Adrian as 00 Apply to [facility] Branch toenails once daily. Every 7 days please file toenails with nail file and apply rubbing alcohol. ciclopirox 2021-08 Yes [id number] Apply to [facility] ([facility]) 8 1-15 area(s) at ity of % solution 00:00: bedtime. Adrian as 00 Apply to [facility] fungal Branch toenails once daily. Every 7 days please file toenails with nail file and apply rubbing alcohol. ciclopirox 2021-08 Yes [id number] Apply to [facility] ([facility]) 8 1-15 area(s) at ity of % solution 00:00: bedtime. Adrian as 00 Apply to [facility] Branch toenails once daily. Every 7 days please file toenails with nail file and apply rubbing alcohol. ciclopirox 2021-08 Yes [id number] Apply to [facility] ([facility]) 8 1-15 area(s) at ity of % solution 00:00: bedtime. Adrian as 00 Apply to [facility] fungal Branch toenails once daily. Every 7 days please file toenails with nail file and apply rubbing alcohol. ciclopirox 2021-08 Yes [id number] Apply to [facility] ([facility]) 8 1-15 area(s) at ity of % solution 00:00: bedtime. Adrian as 00 Apply to [facility] fungal Branch toenails once daily. Every 7 days please file toenails with nail file and apply rubbing alcohol. ciclopirox 2021-08 Yes [id number] Apply to [facility] ([facility]) 8 1-15 area(s) at ity of % solution 00:00: bedtime. Adrian as 00 Apply to [facility] Branch toenails once daily. Every 7 days please file toenails with nail file and apply rubbing alcohol. ciclopirox 2021-08 Yes [id number] Apply to [facility] ([facility]) 8 1-15 area(s) at ity of % solution 00:00: bedtime. Adrian as 00 Apply to [facility] Branch toenails once daily. Every 7 days please file toenails with nail file and apply rubbing alcohol. ciclopirox 2021-08 Yes [id number] Apply to [facility] ([facility]) 8 1-15 area(s) at ity of % solution 00:00: bedtime. Adrian as 00 Apply to [facility] fungal Branch toenails once daily. Every 7 days please file toenails with nail file and apply rubbing alcohol. ciclopirox 2021-08 Yes [id number] Apply to [facility] ([facility]) 8 1-15 area(s) at ity of % solution 00:00: bedtime. Adrian as 00 Apply to [facility] Branch toenails once daily. Every 7 days please file toenails with nail file and apply rubbing alcohol. ciclopirox 2021-08 Yes [id number] Apply to [facility] ([facility]) 8 1-15 area(s) at ity of % solution 00:00: bedtime. Adrian as 00 Apply to [facility] Branch toenails once daily. Every 7 days please file toenails with nail file and apply rubbing alcohol. ciclopirox 2021-08 Yes [id number] Apply to [facility] ([facility]) 8 1-15 area(s) at ity of % solution 00:00: bedtime. Adrian as 00 Apply to [facility] fungal Branch toenails once daily. Every 7 days please file toenails with nail file and apply rubbing alcohol. ciclopirox 2021-08 Yes [id number] Apply to [facility] ([facility]) 8 1-15 area(s) at ity of % solution 00:00: bedtime. Adrian as 00 Apply to [facility] Branch toenails once daily. Every 7 days please file toenails with nail file and apply rubbing alcohol. ciclopirox 2021-08 Yes [id number] Apply to [facility] ([facility]) 8 1-15 area(s) at ity of % solution 00:00: bedtime. Adrian as 00 Apply to [facility] fungal Branch toenails once daily. Every 7 days please file toenails with nail file and apply rubbing alcohol. ciclopirox 2021-08 Yes [id number] Apply to [facility] ([facility]) 8 1-15 area(s) at ity of % solution 00:00: bedtime. Adrian as 00 Apply to [facility] fungal Branch toenails once daily. Every 7 days please file toenails with nail file and apply rubbing alcohol. ciclopirox 2021-08 Yes [id number] Apply to [facility] ([facility]) 8 1-15 area(s) at ity of % solution 00:00: bedtime. Adrian as 00 Apply to [facility] Branch toenails once daily. Every 7 days please file toenails with nail file and apply rubbing alcohol. ciclopirox 2021-08 Yes [id number] Apply to [facility] ([facility]) 8 1-15 area(s) at ity of % solution 00:00: bedtime. Adrian as 00 Apply to [facility] Branch toenails once daily. Every 7 days please file toenails with nail file and apply rubbing alcohol. ciclopirox 2021-08 Yes [id number] Apply to [facility] ([facility]) 8 1-15 area(s) at ity of % solution 00:00: bedtime. Adrian as 00 Apply to [facility] fungal Branch toenails once daily. Every 7 days please file toenails with nail file and apply rubbing alcohol. ciclopirox 2021-08 Yes [id number] Apply to [facility] ([facility]) 8 1-15 area(s) at ity of % solution 00:00: bedtime. Adrian as 00 Apply to [facility] Branch toenails once daily. Every 7 days please file toenails with nail file and apply rubbing alcohol. ciclopirox 2021-08 Yes [id number] Apply to [facility] ([facility]) 8 1-15 area(s) at ity of % solution 00:00: bedtime. Adrian as 00 Apply to [facility] Branch toenails once daily. Every 7 days please file toenails with nail file and apply rubbing alcohol. ciclopirox 2021-08 Yes [id number] Apply to [facility] ([facility]) 8 1-15 area(s) at ity of % solution 00:00: bedtime. Adrian as 00 Apply to [facility] toenails once daily. Every 7 days please file toenails with nail file and apply rubbing alcohol. ciclopirox 2021-08 Yes [id number] Apply to [facility] ([facility]) 8 1-15 area(s) at ity of % solution 00:00: bedtime. Adrian as 00 Apply to [facility] toenails once daily. Every 7 days please file toenails with nail file and apply rubbing alcohol. dicyclomine 2021-08- No [id number] 10mg Take 1 [facility] 10 mg 1-11 12-12 capsule by ity of capsule 00:00: 05:59 mouth 4 [place] 00 :00 ([facility]) Medical times [facility] daily for 30 days. dicyclomine 2021-08- No [id number] 10mg Take 1 [facility] 10 mg 1-11 12-12 capsule by ity of capsule 00:00: 05:59 mouth 4 [place] 00 :00 ([facility]) Medical times Branch daily for 30 days. dicyclomine 2021-08- No [id number] 10mg Take 1 [facility] 10 mg 1-11 12-12 capsule by ity of capsule 00:00: 05:59 mouth 4 [place] 00 :00 ([facility]) Medical times Branch daily for 30 days. dicyclomine 2021-08- No [id number] 10mg Take 1 [facility] 10 mg 1-11 12-12 capsule by ity of capsule 00:00: 05:59 mouth 4 [place] 00 :00 ([facility]) Medical times Branch daily for 30 days. dicyclomine 2021-08- No [id number] 10mg Take 1 [facility] 10 mg 1-11 12-12 capsule by ity of capsule 00:00: 05:59 mouth 4 [place] 00 :00 ([facility]) Medical times Branch daily for 30 days. dicyclomine 2021-08- No [id number] 10mg Take 1 [facility] 10 mg 1-11 12-12 capsule by ity of capsule 00:00: 05:59 mouth 4 [place] 00 :00 ([facility]) Medical times Branch daily for 30 days. dicyclomine 2021-08- No [id number] 10mg Take 1 [facility] 10 mg 1-11 12-12 capsule by ity of capsule 00:00: 05:59 mouth 4 [place] 00 :00 ([facility]) [facility] times [facility] daily for 30 days. dicyclomine 2021-08- No [id number] 10mg Take 1 [facility] 10 mg 1-11 12-12 capsule by ity of capsule 00:00: 05:59 mouth 4 [place] 00 :00 ([facility]) Medical times Branch daily for 30 days. dicyclomine 2021-08- No [id number] 10mg Take 1 [facility] 10 mg 1-11 12-12 capsule by ity of capsule 00:00: 05:59 mouth 4 [place] 00 :00 ([facility]) Medical times Branch daily for 30 days. dicyclomine 2021-08- No [id number] 10mg Take 1 [facility] 10 mg 1-11 12-12 capsule by ity of capsule 00:00: 05:59 mouth 4 [place] 00 :00 ([facility]) Medical times Branch daily for 30 days. dicyclomine 2021-08- No [id number] 10mg Take 1 [facility] 10 mg 1-11 12-12 capsule by ity of capsule 00:00: 05:59 mouth 4 [place] 00 :00 ([facility]) Medical times Branch daily for 30 days. dicyclomine 2021-08- No [id number] 10mg Take 1 [facility] 10 mg 1-11 12-12 capsule by ity of capsule 00:00: 05:59 mouth 4 [place] 00 :00 ([facility]) Medical times Branch daily for 30 days. dicyclomine 2021-08- No [id number] 10mg Take 1 Univers 10 mg 1-11 12-12 capsule by ity of capsule 00:00: 05:59 mouth 4 [place] 00 :00 ([facility]) Medical times Branch daily for 30 days. dicyclomine 2021-08- No [id number] 10mg Take 1 [facility] 10 mg 1-11 12-12 capsule by ity of capsule 00:00: 05:59 mouth 4 [place] 00 :00 ([facility]) Medical times Branch daily for 30 days. dicyclomine 2021-08- No [id number] 10mg Take 1 [facility] 10 mg 1-11 12-12 capsule by ity of capsule 00:00: 05:59 mouth 4 [place] 00 :00 ([facility]) Medical times Branch daily for 30 days. dicyclomine 2021-08- No [id number] 10mg Take 1 [facility] 10 mg 1-11 12-12 capsule by ity of capsule 00:00: 05:59 mouth 4 [place] 00 :00 (four) Medical times Branch daily for 30 days. dicyclomine 2021-08- No [id number] 10mg Take 1 [facility] 10 mg 09-08 capsule by ity of capsule 00:00: 05:59 mouth 4 [place] 00 :00 (four) Medical times Branch daily for 30 days. hydrocortis 2021-08- No [id number] 100mg Insert 1 [facility] one 100 09-08 Enema into ity o f mg/60 mL 00:00: 05:59 rectum at [place] as enema 00 :00 bedtime Medical for 7 Branch days. hydrocortis 2021-08- No [id number] 100mg Insert 1 [facility] one 100 09-08 Enema into ity o f mg/60 mL 00:00: 05:59 rectum at [place] as enema 00 :00 bedtime Medical for 7 Branch days. hydrocortis 2021-08- No [id number] 100mg Insert 1 [facility] one 100 09-08 Enema into ity o f mg/60 mL 00:00: 05:59 rectum at [place] enema 00 :00 bedtime Medical for 7 Branch days. hydrocortis 2021-08- No [id number] 100mg Insert 1 [facility] one 100 09-08 Enema into ity o f mg/60 mL 00:00: 05:59 rectum at [place] enema 00 :00 bedtime Medical for 7 Branch days. hydrocortis 2021-08- No [id number] 100mg Insert 1 [facility] one 100 09-08 Enema into ity o f mg/60 mL 00:00: 05:59 rectum at [place] enema 00 :00 bedtime Medical for 7 Branch days. gadoteridol 2021-08- No [id number] .2mL/kg 28.9 mL Univers (PROHANCE-2 09-07 (0.2 mL/kg i ty of 0 mL) 15:30: 15:27 ?144.5 [place] injection 00 :00 kg), Medical 28.9 mL Intravenou Branch s, ONCE, 1 dose, On [place] 07/08/22 at 0930, Routine hydrocortis 2021-08 Yes [id number] 1{appli Insert 1 [facility] one 10 % 1-08 cator} Applicator ity of (80 mg) 00:00: into [place] foam 00 rectum at Medical bedtime. Branch Give 1 enema at bedtime for 10 days hydrocortis 2021-08 Yes [id number] 1{appli Insert 1 [facility] one 10 % 1-08 cator} Applicator ity of (80 mg) 00:00: into [place] foam 00 rectum at Medical bedtime. Branch Give 1 enema at bedtime for 10 days hydrocortis 2021-08 Yes [id number] 1{appli Insert 1 [facility] one 10 % 1-08 cator} Applicator ity of (80 mg) 00:00: into [place] foam 00 rectum at Medical bedtime. Branch Give 1 enema at bedtime for 10 days hydrocortis 2021-08 Yes [id number] 1{appli Insert 1 [facility] one 10 % 1-08 cator} Applicator ity of (80 mg) 00:00: into [place] foam 00 rectum at Medical bedtime. Branch Give 1 enema at bedtime for 10 days hydrocortis 2021-08 Yes [id number] 1{appli Insert 1 [facility] one 10 % 1-08 cator} Applicator ity of (80 mg) 00:00: into [place] foam 00 rectum at Medical bedtime. Branch Give 1 enema at bedtime for 10 days hydrocortis 2021-08 Yes [id number] 1{appli Insert 1 [facility] one 10 % 1-08 cator} Applicator ity of (80 mg) 00:00: into [place] foam 00 rectum at Medical bedtime. Branch Give 1 enema at bedtime for 10 days hydrocortis 2021-08 Yes [id number] 1{appli Insert 1 [facility] one 10 % 1-08 cator} Applicator ity of (80 mg) 00:00: into [place] foam 00 rectum at Medical bedtime. Branch Give 1 enema at bedtime for 10 days hydrocortis 2021-08 Yes [id number] 1{appli Insert 1 [facility] one 10 % 1-08 cator} Applicator ity of (80 mg) 00:00: into [place] foam 00 rectum at Medical bedtime. Branch Give 1 enema at bedtime for 10 days hydrocortis 2021-08 Yes [id number] 1{appli Insert 1 [facility] one 10 % 1-08 cator} Applicator ity of (80 mg) 00:00: into [place] foam 00 rectum at Medical bedtime. Branch Give 1 enema at bedtime for 10 days hydrocortis 2021-08 Yes [id number] 1{appli Insert 1 [facility] one 10 % 1-08 cator} Applicator ity of (80 mg) 00:00: into [place] foam 00 rectum at Medical bedtime. Branch Give 1 enema at bedtime for 10 days hydrocortis 2021-08 Yes [id number] 1{appli Insert 1 [facility] one 10 % 1-08 cator} Applicator ity of (80 mg) 00:00: into [place] foam 00 rectum at Medical bedtime. Branch Give 1 enema at bedtime for 10 days hydrocortis 2021-08 Yes [id number] 1{appli Insert 1 [facility] one 10 % 1-08 cator} Applicator ity of (80 mg) 00:00: into [place] foam 00 rectum at Medical bedtime. Branch Give 1 enema at bedtime for 10 days hydrocortis 2021-08 Yes [id number] 1{appli Insert 1 [facility] one 10 % 1-08 cator} Applicator ity of (80 mg) 00:00: into [place] foam 00 rectum at Medical bedtime. Branch Give 1 enema at bedtime for 10 days hydrocortis 2021-08 Yes [id number] 1{appli Insert 1 [facility] one 10 % 1-08 cator} Applicator ity of (80 mg) 00:00: into [place] foam 00 rectum at Medical bedtime. Branch Give 1 enema at bedtime for 10 days hydrocortis 2021-08 Yes [id number] 1{appli Insert 1 [facility] one 10 % 1-08 cator} Applicator ity of (80 mg) 00:00: into [place] foam 00 rectum at Medical bedtime. Branch Give 1 enema at bedtime for 10 days hydrocortis 2021-08 Yes [id number] 1{appli Insert 1 [facility] one 10 % 1-08 cator} Applicator ity of (80 mg) 00:00: into [place] foam 00 rectum at Medical bedtime. Branch Give 1 enema at bedtime for 10 days hydrocortis 2021-08 Yes [id number] 1{appli Insert 1 [facility] one 10 % 09-05 cator} Applicator ity of (80 mg) 00:00: into [place] foam 00 rectum at Medical bedtime. Branch Give 1 enema at bedtime for 10 days hydrocortis 2021-08- No [id number] 1{appli Insert 1 [facility] one 10 % 09-05 cator} Applicator it y of (80 mg) 00:00: 00:00 into [place] foam 00 :00 rectum at Medical bedtime. Branch Give 1 enema at bedtime for 10 days hydrocortis 2021-08- No [id number] 1{appli Insert 1 [facility] one 10 % 09-05 cator} Applicator it y of (80 mg) 00:00: 00:00 into [place] foam 00 :00 rectum at Medical bedtime. Branch Give 1 enema at bedtime for 10 days hydrocortis 2021-08- No [id number] 1{appli Insert 1 [facility] one 10 % 09-05 cator} Applicator it y of (80 mg) 00:00: 00:00 into [place] foam 00 :00 rectum at Medical bedtime. [place] Give 1 enema at bedtime for 10 days hydrocortis 2021-08- No [id number] 1{appli Insert 1 [facility] one % 09-05 cator} Applicator it y of (80 mg) 00:00: 00:00 into [place] foam 00 :00 rectum at Medical bedtime. [place] Give 1 enema at bedtime for 10 days cholecalcif 2021-08 Yes 1{capsu Take 1 U nivers [place], 1-03 le} capsule by ity of vitamin D3, 20:14: mouth [place] (VITAMIN 22 daily. Medical D3) 100 mcg [place] (4,000 unit) Cap fish 2021-08 Yes 2{capsu Take 2 Univers oil/borage/ 1-03 le} capsules ity of flax/om3,6, 20:14: by mouth [place] 9 1 (OMEGA 22 daily. Medical 3-6-9 ORAL) [place] cholecalcif 2021-08 Yes 1{capsu Take 1 U nivers [place], 1-03 le} capsule by ity of vitamin D3, 20:14: mouth [place] (VITAMIN 22 daily. Medical D3) 100 mcg Branch (4,000 unit) Cap fish 2021-08 Yes 2{capsu Take 2 Univers oil/borage/ 1-03 le} capsules ity of flax/om3,6, 20:14: by mouth [place] 9 1 (OMEGA 22 daily. Medical 3-6-9 ORAL) Branch cholecalcif 2021-08 Yes 1{capsu Take 1 U nivers [place], 1-03 le} capsule by ity of vitamin D3, 20:14: mouth [place] (VITAMIN 22 daily. Medical D3) 100 mcg Branch (4,000 unit) Cap fish 2021-08 Yes 2{capsu Take 2 Univers oil/borage/ 1-03 le} capsules ity of flax/om3,6, 20:14: by mouth [place] 9 1 (OMEGA 22 daily. Medical 3-6-9 ORAL) Branch cholecalcif 2021-08 Yes 1{capsu Take 1 U nivers [place], 1-03 le} capsule by ity of vitamin D3, 20:14: mouth [place] (VITAMIN 22 daily. Medical D3) 100 mcg Branch (4,000 unit) Cap fish 2021-08 Yes 2{capsu Take 2 Univers oil/borage/ 1-03 le} capsules ity of flax/om3,6, 20:14: by mouth [place] 9 1 (OMEGA 22 daily. Medical 3-6-9 ORAL) Branch cholecalcif 2021-08 Yes 1{capsu Take 1 U nivers [place], 1-03 le} capsule by ity of vitamin D3, 20:14: mouth [place] (VITAMIN 22 daily. Medical D3) 100 mcg Branch (4,000 unit) Cap fish 2021-08 Yes 2{capsu Take 2 [facility] oil/borage/ 1-03 le} capsules ity of flax/om3,6, 20:14: by mouth [place] 9 1 (OMEGA 22 daily. Medical 3-6-9 ORAL) Branch cholecalcif 2021-08 Yes 1{capsu Take 1 U nivers [place], 1-03 le} capsule by ity of vitamin D3, 20:14: mouth [place] (VITAMIN 22 daily. Medical D3) 100 mcg Branch (4,000 unit) Cap fish 2021-08 Yes 2{capsu Take 2 Univers oil/borage/ 1-03 le} capsules ity of flax/om3,6, 20:14: by mouth [place] 9 1 (OMEGA 22 daily. Medical 3-6-9 ORAL) Branch cholecalcif 2021-08 Yes 1{capsu Take 1 U nivers [place], 1-03 le} capsule by ity of vitamin D3, 20:14: mouth [place] (VITAMIN 22 daily. Medical D3) 100 mcg Branch (4,000 unit) Cap fish 2021-08 Yes 2{capsu Take 2 Univers oil/borage/ 1-03 le} capsules ity of flax/om3,6, 20:14: by mouth [place] 9 1 (OMEGA 22 daily. Medical 3-6-9 ORAL) Branch cholecalcif 2021-08 Yes 1{capsu Take 1 U nivers [place], 1-03 le} capsule by ity of vitamin D3, 20:14: mouth [place] (VITAMIN 22 daily. Medical D3) 100 mcg Branch (4,000 unit) Cap fish 2021-08 Yes 2{capsu Take 2 Univers oil/borage/ 1-03 le} capsules ity of flax/om3,6, 20:14: by mouth [place] 9 1 (OMEGA 22 daily. Medical 3-6-9 ORAL) Branch cholecalcif 2021-08 Yes 1{capsu Take 1 U nivers [place], 1-03 le} capsule by ity of vitamin D3, 20:14: mouth [place] (VITAMIN 22 daily. Medical D3) 100 mcg Branch (4,000 unit) Cap fish 2021-08 Yes 2{capsu Take 2 Univers oil/borage/ 1-03 le} capsules ity of flax/om3,6, 20:14: by mouth [place] 9 1 (OMEGA 22 daily. Medical 3-6-9 ORAL) Branch cholecalcif 2021-08 Yes 1{capsu Take 1 U nivers gayle, 1-03 le} capsule by ity of vitamin D3, 20:14: mouth [place] (VITAMIN 22 daily. Medical D3) 100 mcg Branch (4,000 unit) Cap fish 2021-08 Yes 2{capsu Take 2 Univers oil/borage/ 1-03 le} capsules ity of flax/om3,6, 20:14: by mouth [place] 9 1 (OMEGA 22 daily. Medical 3-6-9 ORAL) Branch cholecalcif 2021-08 Yes 1{capsu Take 1 U nivers gayle, 1-03 le} capsule by ity of vitamin D3, 20:14: mouth [place] (VITAMIN 22 daily. Medical D3) 100 mcg Branch (4,000 unit) Cap fish 2021-08 Yes 2{capsu Take 2 Univers oil/borage/ 1-03 le} capsules ity of flax/om3,6, 20:14: by mouth [place] 9 1 (OMEGA 22 daily. Medical -6-9 ORAL) Branch cholecalcif 2021-08 Yes 1{capsu Take 1 U nivers gayle, 1-03 le} capsule by ity of vitamin D3, 20:14: mouth [place] (VITAMIN 22 daily. Medical D3) 100 mcg Branch (4,000 unit) Cap fish 2021-08 Yes 2{capsu Take 2 Univers oil/borage/ 1-03 le} capsules ity of flax/om3,6, 20:14: by mouth [place] 9 1 (OMEGA 22 daily. Medical 11-01-9 ORAL) Branch cholecalcif 2021-08 Yes 1{capsu Take 1 U nivers [place]le, 1-03 le} capsule by ity of vitamin D3, 20:14: mouth [place] (VITAMIN 22 daily. Medical D3) 100 mcg Branch (4,000 unit) Cap fish 2021-08 Yes 2{capsu Take 2 Univers oil/borage/ 1-03 le} capsules ity of flax/om3,6, 20:14: by mouth [place] 9 1 (OMEGA 22 daily. Medical -6-9 ORAL) Branch cholecalcif 2021-08 Yes 1{capsu Take 1 U nivers [place], 1-03 le} capsule by ity of vitamin D3, 20:14: mouth [place] (VITAMIN 22 daily. Medical D3) 100 mcg Branch (4,000 unit) Cap fish 2021-08 Yes 2{capsu Take 2 Univers oil/borage/ 1-03 le} capsules ity of flax/om3,6, 20:14: by mouth [place] 9 1 (OMEGA 22 daily. Medical 3-6-9 ORAL) Branch cholecalcif 2021-08 Yes 1{capsu Take 1 U nivers [place], 1-03 le} capsule by ity of vitamin D3, 20:14: mouth [place] (VITAMIN 22 daily. Medical D3) 100 mcg Branch (4,000 unit) Cap fish 2021-08 Yes 2{capsu Take 2 Univers oil/borage/ 1-03 le} capsules ity of flax/om3,6, 20:14: by mouth [place] 9 1 (OMEGA 22 daily. Medical 3-6-9 ORAL) Branch cholecalcif 2021-08 Yes 1{capsu Take 1 U nivers [place], 1-03 le} capsule by ity of vitamin D3, 20:14: mouth [place] (VITAMIN 22 daily. Medical D3) 100 mcg Branch (4,000 unit) Cap fish 2021-08 Yes 2{capsu Take 2 Univers oil/borage/ 1-03 le} capsules ity of flax/om3,6, 20:14: by mouth [place] 9 1 (OMEGA 22 daily. Medical 3-6-9 ORAL) Branch cholecalcif 2021-08 Yes 1{capsu Take 1 U nivers [place], 1-03 le} capsule by ity of vitamin D3, 20:14: mouth [place] (VITAMIN 22 daily. Medical D3) 100 mcg Branch (4,000 unit) Cap fish 2021-08 Yes 2{capsu Take 2 Univers oil/borage/ 1-03 le} capsules ity of flax/om3,6, 20:14: by mouth [place] 9 1 (OMEGA 22 daily. Medical 3-6-9 ORAL) Branch cholecalcif 2021-08 Yes 1{capsu Take 1 U nivers [place], 1-03 le} capsule by ity of vitamin D3, 20:14: mouth [place] (VITAMIN 22 daily. Medical D3) 100 mcg Branch (4,000 unit) Cap fish 2021-08 Yes 2{capsu Take 2 Univers oil/borage/ 1-03 le} capsules ity of flax/om3,6, 20:14: by mouth [place] 9 1 (OMEGA 22 daily. Medical 3-6-9 ORAL) Branch cholecalcif 2021-08 Yes 1{capsu Take 1 U nivers [place], 1-03 le} capsule by ity of vitamin D3, 20:14: mouth [place] (VITAMIN 22 daily. Medical D3) 100 mcg Branch (4,000 unit) Cap fish 2021-08 Yes 2{capsu Take 2 Univers oil/borage/ 1-03 le} capsules ity of flax/om3,6, 20:14: by mouth [place] 9 1 (OMEGA 22 daily. Medical 3-6-9 ORAL) Branch cholecalcif 2021-08 Yes 1{capsu Take 1 U nivers [place], 1-03 le} capsule by ity of vitamin D3, 20:14: mouth [place] (VITAMIN 22 daily. Medical D3) 100 mcg Branch (4,000 unit) Cap fish 2021-08 Yes 2{capsu Take 2 Univers oil/borage/ 1-03 le} capsules ity of flax/om3,6, 20:14: by mouth [place] 9 1 (OMEGA 22 daily. Medical 3-6-9 ORAL) Branch cholecalcif 2021-08 Yes 1{capsu Take 1 U nivers [place], 1-03 le} capsule by ity of vitamin D3, 20:14: mouth [place] (VITAMIN 22 daily. Medical D3) 100 mcg Branch (4,000 unit) Cap cholecalcif 2021-08 Yes 1{capsu Take 1 U nivers [place], 1-03 le} capsule by ity of vitamin D3, 14:18: mouth [place] (VITAMIN 17 daily. Medical D3) 100 mcg Branch (4,000 unit) Cap fish 2021-08 Yes 2{capsu Take 2 Univers oil/borage/ 1-03 le} capsules ity of flax/om3,6, 14:18: by mouth [place] 9 1 (OMEGA 17 daily. Medical 3-6-9 ORAL) Branch cholecalcif 2021-08 Yes 1{capsu Take 1 U nivers [place], 1-03 le} capsule by ity of vitamin D3, 14:18: mouth [place] (VITAMIN 17 daily. Medical D3) 100 mcg Branch (4,000 unit) Cap fish 2021-08 Yes 2{capsu Take 2 [facility] oil/borage/ 1-03 le} capsules ity of flax/om3,6, 14:18: by mouth [place] 9 1 (OMEGA 17 daily. Medical 3-6-9 ORAL) Branch cholecalcif 2021-08 Yes 1{capsu Take 1 U nivers [place], 1-03 le} capsule by ity of vitamin D3, 14:18: mouth [place] (VITAMIN 17 daily. Medical D3) 100 mcg Branch (4,000 unit) Cap fish 2021-08 Yes 2{capsu Take 2 Univers oil/borage/ 1-03 le} capsules ity of flax/om3,6, 14:18: by mouth [place] 9 1 (OMEGA 17 daily. Medical 3-6-9 ORAL) Branch clindamycin 2021-08- No [id number] 300mg Take 1 [facility] 300 mg - 11-14 capsule by ity of capsule 00:00: 05:59 mouth 4 [place] 00 :00 ([facility]) Medical times Branch daily for 10 days. clindamycin 2021-08- No [id number] 300mg Take 1 [facility] 300 mg -11 06-14 capsule by ity of capsule 00:00: 05:59 mouth 4 [place] 00 :00 ([facility]) Medical times Branch daily for 10 days. clindamycin 2021-08- No [id number] 300mg Take 1 [facility] 300 mg -11 06-14 capsule by ity of capsule 00:00: 05:59 mouth 4 [place] 00 :00 ([facility]) Medical times Branch daily for 10 days. clindamycin 2021-08- No [id number] 300mg Take 1 [facility] 300 mg -11 06-14 capsule by ity of capsule 00:00: 05:59 mouth 4 [place] 00 :00 ([facility]) Medical times Branch daily for 10 days. clindamycin 2021-08- No [id number] 300mg Take 1 [facility] 300 mg -11 06-14 capsule by ity of capsule 00:00: 05:59 mouth 4 [place] 00 :00 ([facility]) Medical times Branch daily for 10 days. clindamycin 2021-08- No [id number] 300mg Take 1 [facility] 300 mg -11 06-14 capsule by ity of capsule 00:00: 05:59 mouth 4 [place] 00 :00 ([facility]) Medical times Branch daily for 10 days. clindamycin 2021-08- No [id number] 300mg Take 1 [facility] 300 mg -11 06-14 capsule by ity of capsule 00:00: 05:59 mouth 4 [place] 00 :00 ([facility]) Medical times Branch daily for 10 days. clindamycin 2021-08- No [id number] 300mg Take 1 [facility] 300 mg 08-31 capsule by ity of capsule 00:00: 05:59 mouth 4 [place] 00 :00 (four) Medical times Branch daily for 10 days. clindamycin 2021-08- No [id number] 300mg Take 1 [facility] 300 mg 08-31 capsule by ity of capsule 00:00: 05:59 mouth 4 [place] 00 :00 (four) Medical times Branch daily for 10 days. clindamycin 2021-08- No [id number] 300mg Take 1 [facility] 300 mg 08-31 capsule by ity of capsule 00:00: 05:59 mouth 4 [place] 00 :00 (four) Medical times Branch daily for 10 days. clindamycin 2021-08- No [id number] 300mg Take 1 [facility] 300 mg 08-31 capsule by ity of capsule 00:00: 05:59 mouth 4 [place] 00 :00 (four) Medical times Branch daily for 10 days. lactated 2021-08 Yes 1000mL at 100 Unive rs ringers IV 0-11 mL/hr, ity of infusion 14:45: 1,000 mL, [place] 1,000 mL 00 IV Medical Infusion, Branch CONTINUOUS , Starting on Tue06/08/22 at 0945, Until Discontinu ed, Routine, PACU lactated 2021-08 No 1000mL at 100 Univ ers ringers IV 0-11 10-11 mL/hr, ity of infusion 14:45: 18:18 1,000 mL, [place] 1,000 mL 00 :22 IV Medical Infusion, Branch CONTINUOUS , Starting on Tue06/08/22 at 0945, Until Tue06/08/22 at 1318, Routine, PACU ondansetron 2021-08 No 4mg 4 mg, Slow Univers (ZOFRAN 0-11 10-11 IV Push, ity of (PF)) 14:37: 14:44 PRN, 1 [place] injection 4 08 :00 dose, Medical mg Starting Branch on Tue06/08/22 at 0937, Until Tue06/08/22 at 0944, Routine, Nausea and Vomiting (N/V), PACU ondansetron 2021-08- No 4mg 4 mg, Slow Univers (ZOFRAN 0-11 10-11 IV Push, ity of (PF)) 14:37: 14:44 PRN, 1 [place] injection 4 08 :00 dose, Medical mg Starting Branch on Tue06/08/22 at 0937, Until Tue06/08/22 at 0944, Routine, Nausea and Vomiting (N/V), PACU water for 2021-08- No PRN, Univers irrigation 0-07 08- Starting ity of irrigation 13:50: 15:07 on Tue [place] solution 00 :53 06/08/22 Medical at 0850, Branch Until Tue06/08/22 at 1007, Routine, Intra-op simethicone 2021-08- No PRN, Unive rs (GAS RELIEF 0-06-08 Starting ity of (SIMETHICON 13:50: 15:07 on Tue [place] as E)) 40 00 :53 06/08/22 Medical mg/0.6 mL at 0850, Branch drops Until Tue06/08/22 at 1007, Routine, Intra-op lactated 2021-08- No 1000mL at 42 [facility] rs ringers IV 0-11 10-11 mL/hr, ity of infusion 12:30: 12:34 1,000 mL, [place] 1,000 mL 00 :00 IV Medical Infusion, Branch ONCE, 1 dose, On Tue06/08/22 at 0730, Routine, DSU Pre-op lactated 2021-08- No 1000mL at 42 [facility] rs ringers IV 0-11 10-11 mL/hr, ity of infusion 12:30: 12:34 1,000 mL, [place] 1,000 mL 00 :00 IV Medical Infusion, Branch ONCE, 1 dose, On Tue06/08/22 at 0730, Routine, DSU Pre-op cholecalcif 2021-08 Yes 1{capsu Take 1 U nivers gayle, 0-11 le} capsule by ity of vitamin D3, 11:18: mouth [place] (VITAMIN 19 daily. Medical D3) 100 mcg [place] (4,000 unit) Cap fish 2021-08 Yes 2{capsu Take 2 Univers oil/borage/ 0-11 le} capsules ity of flax/om3,6, 11:18: by mouth [place] 9 1 (OMEGA 19 daily. Medical 3-6-9 ORAL) Branch cholecalcif 2021-08 Yes 1{capsu Take 1 U nivers gayle, 0-11 le} capsule by ity of vitamin D3, 11:18: mouth [place] (VITAMIN 19 daily. Medical D3) 100 mcg Branch (4,000 unit) Cap fish 2021-08 Yes 2{capsu Take 2 Univers oil/borage/ 0-11 le} capsules ity of flax/om3,6, 11:18: by mouth [place] 9 1 (OMEGA 19 daily. Medical 3-6-9 ORAL) Branch cholecalcif 2021-08 Yes 1{capsu Take 1 U nivers [place], 0-11 le} capsule by ity of vitamin D3, 11:18: mouth [place] (VITAMIN 19 daily. Medical D3) 100 mcg Branch (4,000 unit) Cap fish 2021-08 Yes 2{capsu Take 2 [facility] oil/borage/ 0-11 le} capsules ity of flax/om3,6, 11:18: by mouth [place] 9 1 (OMEGA 19 daily. Medical 3-6-9 ORAL) Branch cholecalcif 2021-08 Yes 1{capsu Take 1 U nivers gayle, 0-11 le} capsule by ity of vitamin D3, 11:18: mouth [place] (VITAMIN 19 daily. Medical D3) 100 mcg Branch (4,000 unit) Cap fish 2021-08 Yes 2{capsu Take 2 Univers oil/borage/ 0-11 le} capsules ity of flax/om3,6, 11:18: by mouth [place] 9 1 (OMEGA 19 daily. Medical 3-6-9 ORAL) Branch cholecalcif 2021-08 Yes 1{capsu Take 1 U nivers gayle, 0-11 le} capsule by ity of vitamin D3, 11:18: mouth [place] (VITAMIN 19 daily. Medical D3) 100 mcg Branch (4,000 unit) Cap fish 2021-08 Yes 2{capsu Take 2 [facility] oil/borage/ 0-11 le} capsules ity of flax/om3,6, 11:18: by mouth [place] 9 1 (OMEGA 19 daily. Medical 3-6-9 ORAL) Branch cholecalcif 2021-08 Yes 1{capsu Take 1 U nivers gayle, 0-11 le} capsule by ity of vitamin D3, 11:18: mouth [place] (VITAMIN 19 daily. Medical D3) 100 mcg [place] (4,000 unit) Cap fish 2021-08 Yes 2{capsu Take 2 Univers oil/borage/ 0-11 le} capsules ity of flax/om3,6, 11:18: by mouth [place] 9 1 (OMEGA 19 daily. Medical 3-6-9 ORAL) [place] cholecalcif 2021-08 Yes 1{capsu Take 1 U nivers gayle, 0-11 le} capsule by ity of vitamin D3, 11:18: mouth [place] (VITAMIN 19 daily. Medical D3) 100 mcg [place] (4,000 unit) [facility] fish 2021-08 Yes 2{capsu Take 2 Univers oil/borage/ 0-11 le} capsules ity of flax/om3,6, 11:18: by mouth [place] 9 1 (OMEGA 19 daily. Medical 3-6-9 ORAL) [place] cholecalcif 2021-08 Yes 1{capsu Take 1 U nivers gayle, 0-11 le} capsule by ity of vitamin D3, 11:18: mouth [place] (VITAMIN 19 daily. Medical D3) 100 mcg [place] (4,000 unit) [facility] fish 2021-08 Yes 2{capsu Take 2 Univers oil/borage/ 0-11 le} capsules ity of flax/om3,6, 11:18: by mouth [place] 9 1 (OMEGA 19 daily. Medical 3-6-9 ORAL) [place] hydrocortis 2021-08- No [id number] 25mg Insert 1 [facility] one 0-11 10-26 Suppositor ity of (ANUSOL-HC) 00:00: 04:59 y into [place] 25 mg 00 :00 rectum in Medical suppository the [place] morning and 1 Suppositor y in the evening. Do all this for 14 days. hydrocortis 2021-08- No [id number] 25mg Insert 1 [facility] one 0-11 10-26 Suppositor ity of (ANUSOL-HC) 00:00: 04:59 y into [place] 25 mg 00 :00 rectum in Medical suppository the [place] morning and 1 Suppositor y in the evening. Do all this for 14 days. hydrocortis 2021-08- No [id number] 25mg Insert 1 [facility] one 0-11 10-26 Suppositor ity of (ANUSOL-HC) 00:00: 04:59 y into [place] 25 mg 00 :00 rectum in Medical suppository the Branch morning and 1 Suppositor y in the evening. Do all this for 14 days. cholecalcif 2021-08 Yes 1{capsu Take 1 U nivers gayle, 0-06 le} capsule by ity of vitamin D3, 10:36: mouth [place] (VITAMIN 07 daily. Medical D3) 100 mcg [place] (4,000 unit) Cap fish 2021-08 Yes 2{capsu Take 2 Univers oil/borage/ 0-06 le} capsules ity of flax/om3,6, 10:36: by mouth [place] 9 1 (OMEGA 07 daily. Medical 3-6-9 ORAL) [place] cholecalcif 2021-08 Yes 1{capsu Take 1 U nivers gayle, 0-06 le} capsule by ity of vitamin D3, 10:36: mouth [place] (VITAMIN 07 daily. Medical D3) 100 mcg [place] (4,000 unit) Cap fish 2021-08 Yes 2{capsu Take 2 Univers oil/borage/ 0-06 le} capsules ity of flax/om3,6, 10:36: by mouth [place] 9 1 (OMEGA 07 daily. Medical 3-6-9 ORAL) Branch cholecalcif 2021-08 Yes 1{capsu Take 1 U nivers gayle, 0-06 le} capsule by ity of vitamin D3, 10:36: mouth [place] (VITAMIN 07 daily. Medical D3) 100 mcg [place] (4,000 unit) Cap fish 2021-08 Yes 2{capsu Take 2 [facility] oil/borage/ 0-06 le} capsules ity of flax/om3,6, 10:36: by mouth [place] 9 1 (OMEGA 07 daily. Medical 3-6-9 ORAL) Branch chlorthalid 2021-08 Yes [id number] 25mg Take 1 [facility] one 25 mg 0-06 tablet by ity o f tablet 00:00: mouth in [place] 00 the Medical morning. Branch chlorthalid 2021-08 Yes [id number] 25mg Take 1 [facility] one 25 mg 0-06 tablet by ity o f tablet 00:00: mouth in [place] 00 the Medical morning. Branch chlorthalid 2021-08 Yes [id number] 25mg Take 1 [facility] one 25 mg 0-06 tablet by ity o f tablet 00:00: mouth in [place] 00 the Medical morning. Branch chlorthalid 2021-08 Yes [id number] 25mg Take 1 [facility] one 25 mg 0-06 tablet by ity o f tablet 00:00: mouth in [place] 00 the Medical morning. Branch chlorthalid 2021-08 Yes [id number] 25mg Take 1 [facility] one 25 mg 0-06 tablet by ity o f tablet 00:00: mouth in [place] 00 the Medical morning. Branch chlorthalid 2021-08 Yes [id number] 25mg Take 1 [facility] one 25 mg 0-06 tablet by ity o f tablet 00:00: mouth in [place] 00 the Medical morning. Branch chlorthalid 2021-08 Yes [id number] 25mg Take 1 [facility] one 25 mg 0-06 tablet by ity o f tablet 00:00: mouth in [place] 00 the Medical morning. [facility] chlorthalid 2021-08 Yes [id number] 25mg Take 1 [facility] 0-06 tablet by [facility] tablet 00:00: mouth in [place] 00 the Medical morning. [facility] chlorthalid 2021-08 Yes [id number] 25mg Take 1 [facility] 25 mg 0-06 tablet by [facility] tablet 00:00: mouth in [place] 00 the Medical morning. [facility] chlorthalid 2021-08 Yes [id number] 25mg Take 1 [facility] 25 mg 0-06 tablet by [facility] tablet 00:00: mouth in [place] 00 the Medical morning. [facility] chlorthalid 2021-08 Yes [id number] 25mg Take 1 [facility] 25 mg 0-06 tablet by [facility] tablet 00:00: mouth in [place] 00 the Medical morning. [facility] chlorthalid 2021-08 Yes [id number] 25mg Take 1 [facility] 25 mg 0-06 tablet by [facility] tablet 00:00: mouth in [place] 00 the Medical morning. [facility] chlorthalid 2021-08 Yes [id number] 25mg Take 1 [facility] 25 mg 0-06 tablet by [facility] tablet 00:00: mouth in [place] 00 the Medical morning. [facility] chlorthalid 2021-08 Yes [id number] 25mg Take 1 [facility] 25 mg 0-06 tablet by [facility] tablet 00:00: mouth in [place] 00 the Medical morning. [facility] chlorthalid 2021-08 Yes [id number] 25mg Take 1 [facility] 25 mg 0-06 tablet by [facility] tablet 00:00: mouth in [place] 00 the Medical morning. [facility] chlorthalid 2021-08 Yes [id number] 25mg Take 1 [facility] 25 mg 0-06 tablet by [facility] tablet 00:00: mouth in [place] 00 the Medical morning. [facility] chlorthalid 2021-08 Yes [id number] 25mg Take 1 [facility] 25 mg 0-06 tablet by [facility] tablet 00:00: mouth in [place] 00 the Medical morning. [facility] chlorthalid 2021-08 Yes [id number] 25mg Take 1 [facility] 25 mg 0-06 tablet by [facility] tablet 00:00: mouth in [place] 00 the Medical morning. [facility] chlorthalid 2021-08 Yes [id number] 25mg Take 1 [facility] 25 mg 0-06 tablet by [facility] tablet 00:00: mouth in [place] 00 the Medical morning. [facility] chlorthalid 2021-08 Yes [id number] 25mg Take 1 [facility] 25 mg 0-06 tablet by [facility] tablet 00:00: mouth in [place] 00 the Medical morning. [facility] chlorthalid 2021-08 Yes [id number] 25mg Take 1 [facility] 25 mg 0-06 tablet by [facility] tablet 00:00: mouth in [place] 00 the Medical morning. [facility] chlorthalid 2021-08 Yes [id number] 25mg Take 1 [facility] 25 mg 0-06 tablet by [facility] tablet 00:00: mouth in [place] 00 the Medical morning. [facility] chlorthalid 2021-08 Yes [id number] 25mg Take 1 [facility] 25 mg 0-06 tablet by [facility] tablet 00:00: mouth in [place] 00 the Medical morning. [facility] chlorthalid 2021-08 Yes [id number] 25mg Take 1 [facility] 25 mg 0-06 tablet by [facility] tablet 00:00: mouth in [place] 00 the Medical morning. [facility] chlorthalid 2021-08 Yes [id number] 25mg Take 1 [facility] 25 mg 0-06 tablet by [facility] tablet 00:00: mouth in [place] 00 the Medical morning. [facility] chlorthalid 2021-08 Yes [id number] 25mg Take 1 [facility] 25 mg 0-06 tablet by [facility] tablet 00:00: mouth in [place] 00 the Medical morning. [facility] chlorthalid 2021-08 Yes [id number] 25mg Take 1 [facility] 25 mg 0-06 tablet by [facility] tablet 00:00: mouth in [place] 00 the Medical morning. [facility] chlorthalid 2021-08 Yes [id number] 25mg Take 1 [facility] 25 mg 0-06 tablet by [facility] tablet 00:00: mouth in [place] 00 the Medical morning. [facility] chlorthalid 2021-08 Yes [id number] 25mg Take 1 [facility] 25 mg 0-06 tablet by [facility] tablet 00:00: mouth in [place] 00 the Medical morning. [facility] chlorthalid 2021-08 Yes [id number] 25mg Take 1 [facility] 25 mg 0-06 tablet by [facility] tablet 00:00: mouth in [place] 00 the Medical morning. [facility] chlorthalid 2021-08 Yes [id number] 25mg Take 1 [facility] 25 mg 0-06 tablet by [facility] tablet 00:00: mouth in [place] 00 the Medical morning. [facility] chlorthalid 2021-08 Yes [id number] 25mg Take 1 [facility] 25 mg 0-06 tablet by [facility] tablet 00:00: mouth in [place] 00 the Medical morning. [facility] chlorthalid 2021-08 Yes [id number] 25mg Take 1 [facility] 25 mg 0-06 tablet by [facility] tablet 00:00: mouth in [place] 00 the Medical morning. [facility] chlorthalid 2021-08 Yes [id number] 25mg Take 1 [facility] 25 mg 0-06 tablet by [facility] tablet 00:00: mouth in [place] 00 the Medical morning. [facility] chlorthalid 2021-08 Yes [id number] 25mg Take 1 [facility] 25 mg 0-06 tablet by [facility] tablet 00:00: mouth in [place] 00 the Medical morning. [facility] chlorthalid 2021-08 Yes [id number] 25mg Take 1 [facility] 25 mg 0-06 tablet by [facility] tablet 00:00: mouth in [place] 00 the Medical morning. [facility] chlorthalid 2021-08 Yes [id number] 25mg Take 1 [facility] 25 mg 0-06 tablet by [facility] tablet 00:00: mouth in [place] 00 the Medical morning. [facility] chlorthalid 2021-08 Yes [id number] 25mg Take 1 [facility] 25 mg 0-06 tablet by [facility] tablet 00:00: mouth in [place] 00 the Medical morning. [facility] chlorthalid 2021-08 Yes [id number] 25mg Take 1 [facility] 25 mg 0-06 tablet by [facility] tablet 00:00: mouth in [place] 00 the Medical morning. [facility] chlorthalid 2021-08 Yes [id number] 25mg Take 1 [facility] 25 mg 0-06 tablet by [facility] tablet 00:00: mouth in [place] 00 the Medical morning. [facility] chlorthalid 2021-08 Yes [id number] 25mg Take 1 [facility] 25 mg 0-06 tablet by [facility] tablet 00:00: mouth in [place] 00 the Medical morning. [facility] chlorthalid 2021-08 Yes [id number] 25mg Take 1 [facility] 25 mg 0-06 tablet by [facility] tablet 00:00: mouth in [place] 00 the Medical morning. [facility] chlorthalid 2021-08 Yes [id number] 25mg Take 1 [facility] 25 mg 0-06 tablet by [facility] tablet 00:00: mouth in [place] 00 the Medical morning. [facility] chlorthalid 2021-08 Yes [id number] 25mg Take 1 [facility] 25 mg 0-06 tablet by [facility] tablet 00:00: mouth in [place] 00 the Medical morning. [facility] chlorthalid 2021-08 Yes [id number] 25mg Take 1 [facility] 25 mg 0-06 tablet by [facility] tablet 00:00: mouth in [place] 00 the Medical morning. [facility] chlorthalid 2021-08 Yes [id number] 25mg Take 1 [facility] 25 mg 0-06 tablet by [facility] tablet 00:00: mouth in [place] 00 the Medical morning. [facility] chlorthalid 2021-08 Yes [id number] 25mg Take 1 [facility] 25 mg 0-06 tablet by [facility] tablet 00:00: mouth in [place] 00 the Medical morning. [facility] chlorthalid 2021-08 Yes [id number] 25mg Take 1 [facility] 25 mg 0-06 tablet by [facility] tablet 00:00: mouth in [place] 00 the Medical morning. [facility] chlorthalid 2021-08 Yes [id number] 25mg Take 1 [facility] 25 mg 0-06 tablet by [facility] tablet 00:00: mouth in [place] 00 the Medical morning. [facility] chlorthalid 2021-08 Yes [id number] 25mg Take 1 [facility] 25 mg 0-06 tablet by [facility] tablet 00:00: mouth in [place] 00 the Medical morning. [facility] chlorthalid 2021-08 Yes [id number] 25mg Take 1 [facility] 25 mg 0-06 tablet by [facility] tablet 00:00: mouth in [place] 00 the Medical morning. [facility] chlorthalid 2021-08 Yes [id number] 25mg Take 1 [facility] 25 mg 0-06 tablet by [facility] tablet 00:00: mouth in [place] 00 the Medical morning. [facility] chlorthalid 2021-08 Yes [id number] 25mg Take 1 [facility] 25 mg 0-06 tablet by [facility] tablet 00:00: mouth in [place] 00 the Medical morning. [facility] chlorthalid 2021-08 Yes [id number] 25mg Take 1 [facility] 25 mg 0-06 tablet by [facility] tablet 00:00: mouth in [place] 00 the Medical morning. [facility] chlorthalid 2021-08 Yes [id number] 25mg Take 1 [facility] 25 mg 0-06 tablet by [facility] tablet 00:00: mouth in [place] 00 the Medical morning. [facility] chlorthalid 2021-08 Yes [id number] 25mg Take 1 [facility] 25 mg 0-06 tablet by [facility] tablet 00:00: mouth in [place] 00 the Medical morning. [facility] chlorthalid 2021-08 Yes [id number] 25mg Take 1 [facility] 25 mg 0-06 tablet by [facility] tablet 00:00: mouth in [place] 00 the Medical morning. [facility] chlorthalid 2021-08 Yes [id number] 25mg Take 1 [facility] 25 mg 0-06 tablet by [facility] tablet 00:00: mouth in [place] 00 the Medical morning. [facility] chlorthalid 2021-08 Yes [id number] 25mg Take 1 [facility] 25 mg 0-06 tablet by [facility] tablet 00:00: mouth in [place] 00 the Medical morning. [facility] chlorthalid 2021-08 Yes [id number] 25mg Take 1 [facility] 25 mg 0-06 tablet by [facility] tablet 00:00: mouth in [place] 00 the Medical morning. [facility] chlorthalid 2021-08 Yes [id number] 25mg Take 1 [facility] 25 mg 0-06 tablet by [facility] tablet 00:00: mouth in [place] 00 the Medical morning. [facility] chlorthalid 2021-08 Yes [id number] 25mg Take 1 [facility] 25 mg 0-06 tablet by [facility] tablet 00:00: mouth in [place] 00 the Medical morning. [facility] chlorthalid 2021-08 Yes [id number] 25mg Take 1 [facility] 25 mg 0-06 tablet by [facility] tablet 00:00: mouth in [place] 00 the Medical morning. [facility] chlorthalid 2021-08 Yes [id number] 25mg Take 1 [facility] 25 mg 0-06 tablet by [facility] tablet 00:00: mouth in [place] 00 the Medical morning. [facility] chlorthalid 2021-08 Yes [id number] 25mg Take 1 [facility] 25 mg 0-06 tablet by [facility] tablet 00:00: mouth in [place] 00 the Medical morning. [facility] chlorthalid 2021-08 Yes [id number] 25mg Take 1 [facility] 25 mg 0-06 tablet by [facility] tablet 00:00: mouth in [place] 00 the Medical morning. [facility] chlorthalid 2021-08 Yes [id number] 25mg Take 1 [facility] 25 mg 0-06 tablet by [facility] tablet 00:00: mouth in [place] 00 the Medical morning. [facility] chlorthalid 2021-08 Yes [id number] 25mg Take 1 [facility] 25 mg 0-06 tablet by [facility] tablet 00:00: mouth in [place] 00 the Medical morning. [facility] chlorthalid 2021-08 Yes [id number] 25mg Take 1 [facility] 25 mg 0-06 tablet by [facility] tablet 00:00: mouth in [place] 00 the Medical morning. [facility] chlorthalid 2021-08 Yes [id number] 25mg Take 1 [facility] 25 mg 0-06 tablet by [facility] tablet 00:00: mouth in [place] 00 the Medical morning. [facility] chlorthalid 2021-08 Yes [id number] 25mg Take 1 [facility] 25 mg 0-06 tablet by [facility] tablet 00:00: mouth in [place] 00 the Medical morning. [facility] chlorthalid 2021-08 Yes [id number] 25mg Take 1 [facility] 25 mg 0-06 tablet by [facility] tablet 00:00: mouth in [place] 00 the Medical morning. [facility] chlorthalid 2021-08 Yes [id number] 25mg Take 1 [facility] 25 mg 0-06 tablet by [facility] tablet 00:00: mouth in [place] 00 the Medical morning. [facility] chlorthalid 2021-08 Yes [id number] 25mg Take 1 [facility] 25 mg 0-06 tablet by [facility] tablet 00:00: mouth in [place] 00 the Medical morning. [facility] chlorthalid 2021-08 Yes [id number] 25mg Take 1 [facility] 25 mg 0-06 tablet by [facility] tablet 00:00: mouth in [place] 00 the Medical morning. [facility] chlorthalid 2021-08 Yes [id number] 25mg Take 1 [facility] 25 mg 0-06 tablet by [facility] tablet 00:00: mouth in [place] 00 the Medical morning. [facility] chlorthalid 2021-08 Yes [id number] 25mg Take 1 [facility] 25 mg 0-06 tablet by [facility] tablet 00:00: mouth in [place] 00 the Medical morning. [facility] chlorthalid 2021-08 Yes [id number] 25mg Take 1 [facility] 25 mg 0-06 tablet by [facility] tablet 00:00: mouth in [place] 00 the Medical morning. [facility] chlorthalid 2021-08 Yes [id number] 25mg Take 1 [facility] 25 mg 0-06 tablet by [facility] tablet 00:00: mouth in [place] 00 the Medical morning. [facility] chlorthalid 2021-08 Yes [id number] 25mg Take 1 [facility] 25 mg 0-06 tablet by [facility] tablet 00:00: mouth in [place] 00 the Medical morning. [facility] chlorthalid 2021-08 Yes [id number] 25mg Take 1 [facility] 25 mg 0-06 tablet by [facility] tablet 00:00: mouth in [place] 00 the Medical morning. [facility] chlorthalid 2021-08 Yes [id number] 25mg Take 1 [facility] 25 mg 0-06 tablet by [facility] tablet 00:00: mouth in [place] 00 the Medical morning. [facility] chlorthalid 2021-08 Yes [id number] 25mg Take 1 [facility] 25 mg 0-06 tablet by [facility] tablet 00:00: mouth in [place] 00 the Medical morning. [facility] chlorthalid 2021-08 Yes [id number] 25mg Take 1 [facility] 25 mg 0-06 tablet by [facility] tablet 00:00: mouth in [place] 00 the Medical morning. [facility] chlorthalid 2021-08 Yes [id number] 25mg Take 1 [facility] 25 mg 0-06 tablet by [facility] tablet 00:00: mouth in [place] 00 the Medical morning. [facility] chlorthalid 2021-08 Yes [id number] 25mg Take 1 [facility] 25 mg 0-06 tablet by [facility] tablet 00:00: mouth in [place] 00 the Medical morning. [facility] chlorthalid 2021-08 Yes [id number] 25mg Take 1 [facility] 25 mg 0-06 tablet by [facility] tablet 00:00: mouth in [place] 00 the Medical morning. [facility] chlorthalid 2021-08 Yes [id number] 25mg Take 1 [facility] 25 mg 0-06 tablet by [facility] tablet 00:00: mouth in [place] 00 the Medical morning. [facility] chlorthalid 2021-08 Yes [id number] 25mg Take 1 [facility] 25 mg 0-06 tablet by [facility] tablet 00:00: mouth in [place] 00 the Medical morning. [facility] chlorthalid 2021-08 Yes [id number] 25mg Take 1 [facility] 25 mg 0-06 tablet by [facility] o f tablet 00:00: mouth in [place] 00 the Medical morning. [facility] chlorthalid 2021-08 Yes [id number] 25mg Take 1 [facility] 25 mg 0-06 tablet by [facility] tablet 00:00: mouth in [place] the Medical morning. [facility] chlorthalid 2021-08 Yes [id number] 25mg Take 1 [facility] 25 mg 0-06 tablet by [facility] tablet 00:00: mouth in [place] the Medical morning. [facility] chlorthalid 2021-08 Yes [id number] 25mg Take 1 [facility] 25 mg 0-06 tablet by [facility] tablet 00:00: mouth in [place] the Medical morning. [facility] chlorthalid 2021-08 Yes [id number] 25mg Take 1 [facility] 25 mg 0-06 tablet by [facility] tablet 00:00: mouth in [place] 00 the Medical morning. [facility] chlorthalid 2021-08 Yes [id number] 25mg Take 1 [facility] 25 mg 0-06 tablet by [facility] o [facility] tablet 00:00: mouth in [place] 00 the Medical morning. [facility] chlorthalid 2021-08 Yes [id number] 25mg Take 1 [facility] 25 mg 0-06 tablet by [facility] tablet 00:00: mouth in [place] 00 the Medical morning. [facility] chlorthalid 2021-08 Yes [id number] 25mg Take 1 [facility] 25 mg 0-06 tablet by [facility] tablet 00:00: mouth in [place] 00 the Medical morning. [place] chlorthalid 2021-08 Yes [id number] 25mg Take 1 [facility] 25 mg 0-06 tablet by [facility] o f tablet 00:00: mouth in [place] 00 the Medical morning. [facility] chlorthalid 2021-08 Yes [id number] 25mg Take 1 [facility] 25 mg 0-06 tablet by [facility] tablet 00:00: mouth in [place] 00 the Medical morning. [place] chlorthalid 2021-08 Yes [id number] 25mg Take 1 [facility] 25 mg 0-06 tablet by [facility] tablet 00:00: mouth in [place] 00 the Medical morning. [place] chlorthalid 2021-08 Yes [id number] 25mg Take 1 [facility] 25 mg 0-06 tablet by [facility] o f tablet 00:00: mouth in [place] 00 the Medical morning. [place] chlorthalid 2021-08 Yes [id number] 25mg Take 1 [facility] 25 mg 0-06 tablet by [facility] o f tablet 00:00: mouth in [place] 00 the Medical morning. [place] chlorthalid 2021-08- No [id number] 25mg Take 1 [facility] 25 mg 0-06 05-10 tablet by [facility] tablet 00:00: 00:00 mouth in [place] 00 :00 the Medical morning. [place] chlorthalid 2021-08- No [id number] 25mg Take 1 [facility] 25 mg 0-06 05-10 tablet by [facility] tablet 00:00: 00:00 mouth in [place] 00 :00 the Medical morning. [place] chlorthalid 2021-08- No [id number] 25mg Take 1 [facility] 25 mg 0-06 05-10 tablet by [facility] tablet 00:00: 00:00 mouth in [place] 00 :00 the Medical morning. [place] sodium,pota 2021-08- No [id number] 117mL Take 117 [facility] ssium,mag 0-06 10-07 mL by [facility] of sulfates 00:00: 04:59 mouth [place] 17.5-3.13-1 00 :00 now for 1 Med ical .6 gram dose. Take Branch as directed for colonoscop y metFORMIN Yes [id number] 1000mg Take 1 [facility] 1,000 mg 9-13 tablet by [facility] of tablet 00:00: mouth in [place] 00 the Medical morning. Branch metFORMIN 2022-0 Yes [id number] 1000mg Take 1 [facility] 1,000 mg 9-13 tablet by [facility] tablet 00:00: mouth in [place] 00 the Medical morning. Branch metFORMIN 2022-0 Yes [id number] 1000mg Take 1 [facility] 1,000 mg 9-13 tablet by [facility] tablet 00:00: mouth in [place] 00 the Medical morning. Branch metFORMIN 2022-0 Yes [id number] 1000mg Take 1 [facility] 1,000 mg 9-13 tablet by [facility] tablet 00:00: mouth in [place] 00 the Medical morning. Branch metFORMIN 2022-0 Yes [id number] 1000mg Take 1 [facility] 1,000 mg 9-13 tablet by [facility] tablet 00:00: mouth in [place] 00 the Medical morning. Branch metFORMIN 2022-0 Yes [id number] 1000mg Take 1 [facility] 1,000 mg 9-13 tablet by [facility] tablet 00:00: mouth in [place] 00 the Medical morning. Branch metFORMIN 2022-0 Yes [id number] 1000mg Take 1 [facility] 1,000 mg 9-13 tablet by [facility] tablet 00:00: mouth in [place] the Medical morning. Branch metFORMIN 2022-0 Yes [id number] 1000mg Take 1 [facility] 1,000 mg 9-13 tablet by [facility] tablet 00:00: mouth in [place] the Medical morning. Branch metFORMIN 2022-0 Yes [id number] 1000mg Take 1 [facility] 1,000 mg 9-13 tablet by [facility] tablet 00:00: mouth in [place] 00 the Medical morning. [facility] metFORMIN 2022-0 Yes [id number] 1000mg Take 1 [facility] 1,000 mg 9-13 tablet by [facility] tablet 00:00: mouth in [place] the Medical morning. Branch metFORMIN 2022-0 Yes [id number] 1000mg Take 1 [facility] 1,000 mg 9-13 tablet by [facility] tablet 00:00: mouth in [place] 00 the Medical morning. Branch metFORMIN 2022-0 Yes [id number] 1000mg Take 1 [facility] 1,000 mg 9-13 tablet by [facility] tablet 00:00: mouth in [place] 00 the Medical morning. Branch metFORMIN 2022-0 Yes [id number] 1000mg Take 1 [facility] 1,000 mg 9-13 tablet by [facility] tablet 00:00: mouth in [place] 00 the Medical morning. [facility] metFORMIN 2022-0 Yes [id number] 1000mg Take 1 [facility] 1,000 mg 9-13 tablet by [facility] tablet 00:00: mouth in [place] 00 the Medical morning. [facility] metFORMIN 2022-0 Yes [id number] 1000mg Take 1 [facility] 1,000 mg 9-13 tablet by [facility] tablet 00:00: mouth in [place] the Medical morning. [facility] metFORMIN 2022-0 Yes [id number] 1000mg Take 1 [facility] 1,000 mg 9-13 tablet by [facility] tablet 00:00: mouth in [place] the Medical morning. Branch metFORMIN 2022-0 Yes [id number] 1000mg Take 1 [facility] 1,000 mg 9-13 tablet by [facility] tablet 00:00: mouth in [place] the Medical morning. [facility] metFORMIN 2022-0 Yes [id number] 1000mg Take 1 [facility] 1,000 mg 9-13 tablet by [facility] tablet 00:00: mouth in [place] the Medical morning. [facility] metFORMIN 2022-0 Yes [id number] 1000mg Take 1 [facility] 1,000 mg 9-13 tablet by [facility] tablet 00:00: mouth in [place] the Medical morning. [facility] metFORMIN 2022-0 Yes [id number] 1000mg Take 1 [facility] 1,000 mg 9-13 tablet by [facility] tablet 00:00: mouth in [place] the Medical morning. [facility] metFORMIN 2-0 Yes [id number] 1000mg Take 1 [facility] 1,000 mg 9-13 tablet by [facility] tablet 00:00: mouth in [place] the Medical morning. [facility] metFORMIN 2022-0 Yes [id number] 1000mg Take 1 [facility] 1,000 mg 9-13 tablet by [facility] tablet 00:00: mouth in [place] the Medical morning. [facility] metFORMIN 2022-0 Yes [id number] 1000mg Take 1 [facility] 1,000 mg 9-13 tablet by [facility] tablet 00:00: mouth in [place] the Medical morning. [facility] metFORMIN 2022-0 Yes [id number] 1000mg Take 1 [facility] 1,000 mg 9-13 tablet by [facility] tablet 00:00: mouth in [place] 00 the Medical morning. [facility] metFORMIN 2022-0 Yes [id number] 1000mg Take 1 [facility] 1,000 mg 9-13 tablet by [facility] of tablet 00:00: mouth in [place] 00 the Medical morning. [facility] metFORMIN 2022-0 Yes [id number] 1000mg Take 1 [facility] 1,000 mg 9-13 tablet by [facility] tablet 00:00: mouth in [place] 00 the Medical morning. [facility] metFORMIN 2022-0 Yes [id number] 1000mg Take 1 [facility] 1,000 mg 9-13 tablet by [facility] tablet 00:00: mouth in [place] the Medical morning. [facility] metFORMIN 2022-0 Yes [id number] 1000mg Take 1 [facility] 1,000 mg 9-13 tablet by [facility] tablet 00:00: mouth in [place] the Medical morning. [facility] metFORMIN 2022-0 Yes [id number] 1000mg Take 1 [facility] 1,000 mg 9-13 tablet by [facility] tablet 00:00: mouth in [place] the Medical morning. [facility] metFORMIN 2022-0 Yes [id number] 1000mg Take 1 [facility] 1,000 mg 9-13 tablet by [facility] tablet 00:00: mouth in [place] the Medical morning. [facility] metFORMIN 2022-0 Yes [id number] 1000mg Take 1 [facility] 1,000 mg 9-13 tablet by [facility] tablet 00:00: mouth in [place] the Medical morning. [facility] metFORMIN 2022-0 Yes [id number] 1000mg Take 1 [facility] 1,000 mg 9-13 tablet by [facility] tablet 00:00: mouth in [place] the Medical morning. [facility] metFORMIN 2022-0 Yes [id number] 1000mg Take 1 [facility] 1,000 mg 9-13 tablet by [facility] tablet 00:00: mouth in [place] the Medical morning. [facility] metFORMIN 2022-0 Yes [id number] 1000mg Take 1 [facility] 1,000 mg 9-13 tablet by [facility] tablet 00:00: mouth in [place] the Medical morning. [facility] metFORMIN 2022-0 Yes [id number] 1000mg Take 1 [facility] 1,000 mg 9-13 tablet by [facility] tablet 00:00: mouth in [place] the Medical morning. [facility] metFORMIN 2022-0 Yes [id number] 1000mg Take 1 [facility] 1,000 mg 9-13 tablet by [facility] tablet 00:00: mouth in [place] the Medical morning. [facility] metFORMIN 2022-0 Yes [id number] 1000mg Take 1 [facility] 1,000 mg 9-13 tablet by [facility] tablet 00:00: mouth in [place] 00 the Medical morning. [facility] metFORMIN 2022-0 Yes [id number] 1000mg Take 1 [facility] 1,000 mg 9-13 tablet by [facility] tablet 00:00: mouth in [place] 00 the Medical morning. [facility] metFORMIN 2022-0 Yes [id number] 1000mg Take 1 [facility] 1,000 mg 9-13 tablet by [facility] of tablet 00:00: mouth in [place] the Medical morning. [facility] metFORMIN 2022-0 Yes [id number] 1000mg Take 1 [facility] 1,000 mg 9-13 tablet by [facility] tablet 00:00: mouth in [place] 00 the Medical morning. [facility] metFORMIN 2022-0 Yes [id number] 1000mg Take 1 [facility] 1,000 mg 9-13 tablet by [facility] tablet 00:00: mouth in [place] 00 the Medical morning. [facility] metFORMIN 2022-0 Yes [id number] 1000mg Take 1 [facility] 1,000 mg 9-13 tablet by [facility] tablet 00:00: mouth in [place] the Medical morning. [facility] metFORMIN 2022-0 Yes [id number] 1000mg Take 1 [facility] 1,000 mg 9-13 tablet by [facility] tablet 00:00: mouth in [place] the Medical morning. [facility] metFORMIN 2022-0 Yes [id number] 1000mg Take 1 [facility] 1,000 mg 9-13 tablet by [facility] tablet 00:00: mouth in [place] the Medical morning. [facility] metFORMIN 2022-0 Yes [id number] 1000mg Take 1 [facility] 1,000 mg 9-13 tablet by [facility] tablet 00:00: mouth in [place] the Medical morning. [facility] metFORMIN 2022-0 Yes [id number] 1000mg Take 1 [facility] 1,000 mg 9-13 tablet by [facility] tablet 00:00: mouth in [place] the Medical morning. [facility] metFORMIN 2022-0 Yes [id number] 1000mg Take 1 [facility] 1,000 mg 9-13 tablet by [facility] tablet 00:00: mouth in [place] the Medical morning. [facility] metFORMIN 2022-0 Yes [id number] 1000mg Take 1 [facility] 1,000 mg 9-13 tablet by [facility] tablet 00:00: mouth in [place] 00 the Medical morning. [facility] metFORMIN 2022-0 Yes [id number] 1000mg Take 1 [facility] 1,000 mg 9-13 tablet by [facility] of tablet 00:00: mouth in [place] 00 the Medical morning. [facility] metFORMIN 2022-0 Yes [id number] 1000mg Take 1 [facility] 1,000 mg 9-13 tablet by [facility] of tablet 00:00: mouth in [place] 00 the Medical morning. [facility] metFORMIN 2022-0 Yes [id number] 1000mg Take 1 [facility] 1,000 mg 9-13 tablet by [facility] of tablet 00:00: mouth in [place] the Medical morning. [facility] metFORMIN 2022-0 Yes [id number] 1000mg Take 1 [facility] 1,000 mg 9-13 tablet by [facility] tablet 00:00: mouth in [place] the Medical morning. [facility] metFORMIN 2022-0 Yes [id number] 1000mg Take 1 [facility] 1,000 mg 9-13 tablet by [facility] of tablet 00:00: mouth in [place] the Medical morning. [facility] metFORMIN 2022-0 Yes [id number] 1000mg Take 1 [facility] 1,000 mg 9-13 tablet by [facility] tablet 00:00: mouth in [place] the Medical morning. [facility] metFORMIN 2022-0 Yes [id number] 1000mg Take 1 [facility] 1,000 mg 9-13 tablet by [facility] of tablet 00:00: mouth in [place] the Medical morning. [facility] metFORMIN 2-0 Yes [id number] 1000mg Take 1 [facility] 1,000 mg 9-13 tablet by [facility] of tablet 00:00: mouth in [place] the Medical morning. [facility] metFORMIN 2-0 Yes [id number] 1000mg Take 1 [facility] 1,000 mg 9-13 tablet by [facility] of tablet 00:00: mouth in [place] the Medical morning. [facility] metFORMIN 2-0 Yes [id number] 1000mg Take 1 [facility] 1,000 mg 9-13 tablet by [facility] of tablet 00:00: mouth in [place] the Medical morning. [facility] metFORMIN 2022-0 Yes [id number] 1000mg Take 1 [facility] 1,000 mg 9-13 tablet by [facility] of tablet 00:00: mouth in [place] the Medical morning. [facility] metFORMIN 2022-0 Yes [id number] 1000mg Take 1 [facility] 1,000 mg 9-13 tablet by [facility] of tablet 00:00: mouth in [place] the Medical morning. [facility] metFORMIN 2022-0 Yes [id number] 1000mg Take 1 [facility] 1[facility]000 mg 9-13 tablet by [facility] tablet 00:00: mouth in [place] 00 the Medical morning. Branch metFORMIN 2022-0 Yes [id number] 1000mg Take 1 [facility] 1,000 mg 9-13 tablet by [facility] tablet 00:00: mouth in [place] 00 the Medical morning. Branch metFORMIN 2022-0 Yes [id number] 1000mg Take 1 [facility] 1,000 mg 9-13 tablet by [facility] tablet 00:00: mouth in [place] 00 the Medical morning. Branch metFORMIN 2022-0 Yes [id number] 1000mg Take 1 [facility] 1,000 mg 9-13 tablet by [facility] tablet 00:00: mouth in [place] 00 the Medical morning. Branch metFORMIN 2022-0 Yes [id number] 1000mg Take 1 [facility] 1,000 mg 9-13 tablet by [facility] tablet 00:00: mouth in [place] 00 the Medical morning. Branch metFORMIN 2022-0 Yes [id number] 1000mg Take 1 [facility] 1,000 mg 9-13 tablet by [facility] tablet 00:00: mouth in [place] 00 the Medical morning. Branch metFORMIN 2022-0 Yes [id number] 1000mg Take 1 [facility] 1,000 mg 9-13 tablet by [facility] tablet 00:00: mouth in [place] the Medical morning. Branch metFORMIN 2022-0 Yes [id number] 1000mg Take 1 [facility] 1,000 mg 9-13 tablet by [facility] of tablet 00:00: mouth in [place] the Medical morning. Branch metFORMIN 2-0 Yes [id number] 1000mg Take 1 [facility] 1,000 mg 9-13 tablet by [facility] tablet 00:00: mouth in [place] the Medical morning. Branch metFORMIN 2-0 Yes [id number] 1000mg Take 1 [facility] 1,000 mg 9-13 tablet by [facility] tablet 00:00: mouth in [place] 00 the Medical morning. Branch metFORMIN 2022-0 Yes [id number] 1000mg Take 1 [facility] 1,000 mg 9-13 tablet by [facility] tablet 00:00: mouth in [place] the Medical morning. Branch metFORMIN 2022-0 Yes [id number] 1000mg Take 1 [facility] 1,000 mg 9-13 tablet by [facility] of tablet 00:00: mouth in [place] 00 the Medical morning. Branch metFORMIN 2022-0 Yes [id number] 1000mg Take 1 [facility] 1,000 mg 9-13 tablet by [facility] tablet 00:00: mouth in [place] 00 the Medical morning. Branch metFORMIN 2022-0 Yes [id number] 1000mg Take 1 [facility] 1,000 mg 9-13 tablet by [facility] tablet 00:00: mouth in [place] 00 the Medical morning. Branch metFORMIN 2022-0 Yes [id number] 1000mg Take 1 [facility] 1,000 mg 9-13 tablet by [facility] of tablet 00:00: mouth in [place] the Medical morning. Branch metFORMIN 2022-0 Yes [id number] 1000mg Take 1 [facility] 1,000 mg 9-13 tablet by [facility] of tablet 00:00: mouth in [place] the Medical morning. Branch metFORMIN 2022-0 Yes [id number] 1000mg Take 1 [facility] 1,000 mg 9-13 tablet by [facility] of tablet 00:00: mouth in [place] the Medical morning. Branch metFORMIN 2022-0 Yes [id number] 1000mg Take 1 [facility] 1,000 mg 9-13 tablet by [facility] of tablet 00:00: mouth in [place] the Medical morning. Branch metFORMIN 2022-0 Yes [id number] 1000mg Take 1 [facility] 1,000 mg 9-13 tablet by [facility] of tablet 00:00: mouth in [place] the Medical morning. Branch metFORMIN 2022-0 Yes [id number] 1000mg Take 1 [facility] 1,000 mg 9-13 tablet by [facility] of tablet 00:00: mouth in [place] the Medical morning. Branch metFORMIN 2022-0 Yes [id number] 1000mg Take 1 [facility] 1,000 mg 9-13 tablet by [facility] of tablet 00:00: mouth in [place] the Medical morning. Branch metFORMIN 2-0 Yes [id number] 1000mg Take 1 [facility] 1,000 mg 9-13 tablet by [facility] of tablet 00:00: mouth in [place] the Medical morning. Branch metFORMIN 2022-0 Yes [id number] 1000mg Take 1 [facility] 1,000 mg 9-13 tablet by [facility] of tablet 00:00: mouth in [place] the Medical morning. Branch metFORMIN 2022-0 Yes [id number] 1000mg Take 1 [facility] 1,000 mg 9-13 tablet by [facility] of tablet 00:00: mouth in [place] the Medical morning. Branch metFORMIN 2022-0 Yes [id number] 1000mg Take 1 [facility] 1,000 mg 9-13 tablet by [facility] of tablet 00:00: mouth in [place] 00 the Medical morning. Branch metFORMIN 2022-0 Yes [id number] 1000mg Take 1 [facility] 1,000 mg 9-13 tablet by [facility] of tablet 00:00: mouth in [place] 00 the Medical morning. Branch metFORMIN 2022-0 Yes [id number] 1000mg Take 1 [facility] 1,000 mg 9-13 tablet by [facility] of tablet 00:00: mouth in [place] 00 the Medical morning. [place] metFORMIN 2021-3- No [id number] 1000mg Take 1 [facility] 1,000 mg 9-13 03-15 tablet by ity o f tablet 00:00: 00:00 mouth in [place] 00 :00 the Medical morning. [place] metFORMIN 2021-3- No [id number] 1000mg Take 1 [facility] 1,000 mg 9-13 03-15 tablet by ity o f tablet 00:00: 00:00 mouth in [place] 00 :00 the Medical morning. [place] metFORMIN 2021-2022- No [id number] 1000mg Take 1 [facility] 1,000 mg 9-13 03-15 tablet by ity o f tablet 00:00: 00:00 mouth in [place] 00 :00 the Medical morning. [place] metFORMIN 2021-2021- No [id number] 1000mg Take 1 [facility] 1,000 mg 6-22 09-13 tablet by ity o f tablet 00:00: 00:00 mouth [place] 00 :00 daily. [facility] metFORMIN 2021-2021- No [id number] 1000mg Take 1 [facility] 1,000 mg 6-22 09-13 tablet by ity o f tablet 00:00: 00:00 mouth [place] 00 :00 daily. [facility] Branch Estradiol 2021-0 Yes [id number] 10ug Insert 1 [facility] (YUVAFEM) 5-19 tablet ity of 10 mcg 00:00: into [place] tablet 00 vagina 2 Medical (two) Branch times per week. Estradiol 2021-0 Yes [id number] 10ug Insert 1 [facility] (YUVAFEM) 5-19 tablet ity of 10 mcg 00:00: into [place] tablet 00 vagina 2 Medical (two) Branch times per week. Estradiol 2021-0 Yes [id number] 10ug Insert 1 [facility] (YUVAFEM) 5-19 tablet ity of 10 mcg 00:00: into [place] tablet 00 vagina 2 Medical (two) Branch times per week. Estradiol 2021-0 Yes [id number] 10ug Insert 1 [facility] (YUVAFEM) 5-19 tablet ity of 10 mcg 00:00: into [place] tablet 00 vagina 2 Medical (two) Branch times per week. Estradiol 2021-0 Yes [id number] 10ug Insert 1 [facility] (YUVAFEM) 5-19 tablet ity of 10 mcg 00:00: into [place] tablet 00 vagina 2 Medical (two) Branch times per week. Estradiol 2022-0 Yes [id number] 10ug Insert 1 [facility] (YUVAFEM) 5-19 tablet ity of 10 mcg 00:00: into [place] tablet 00 vagina 2 Medical (two) Branch times per week. Estradiol 2022-0 Yes [id number] 10ug Insert 1 [facility] (YUVAFEM) 5-19 tablet ity of 10 mcg 00:00: into [place] tablet 00 vagina 2 Medical (two) Branch times per week. Estradiol 2022-0 Yes [id number] 10ug Insert 1 [facility] (YUVAFEM) 5-19 tablet ity of 10 mcg 00:00: into [place] tablet 00 vagina 2 Medical (two) Branch times per week. Estradiol 2022-0 Yes [id number] 10ug Insert 1 [facility] (YUVAFEM) 5-19 tablet ity of 10 mcg 00:00: into [place] tablet 00 vagina 2 Medical (two) Branch times per week. Estradiol 2022-0 Yes [id number] 10ug Insert 1 [facility] (YUVAFEM) 5-19 tablet ity of 10 mcg 00:00: into [place] tablet 00 vagina 2 Medical (two) Branch times per week. Estradiol 2022-0 Yes [id number] 10ug Insert 1 [facility] (YUVAFEM) 5-19 tablet ity of 10 mcg 00:00: into [place] tablet 00 vagina 2 Medical (two) Branch times per week. Estradiol 2022-0 Yes [id number] 10ug Insert 1 [facility] (YUVAFEM) 5-19 tablet ity of 10 mcg 00:00: into [place] tablet 00 vagina 2 Medical (two) Branch times per week. Estradiol 2022-0 Yes [id number] 10ug Insert 1 [facility] (YUVAFEM) 5-19 tablet ity of 10 mcg 00:00: into [place] tablet 00 vagina 2 Medical (two) Branch times per week. Estradiol 2022-0 Yes [id number] 10ug Insert 1 [facility] (YUVAFEM) 5-19 tablet ity of 10 mcg 00:00: into [place] tablet 00 vagina 2 Medical (two) Branch times per week. Estradiol 2022-0 Yes [id number] 10ug Insert 1 [facility] (YUVAFEM) 5-19 tablet ity of 10 mcg 00:00: into [place] tablet 00 vagina 2 Medical (two) Branch times per week. Estradiol 2022-0 Yes [id number] 10ug Insert 1 [facility] (YUVAFEM) 5-19 tablet ity of 10 mcg 00:00: into [place] tablet 00 vagina 2 Medical (two) Branch times per week. Estradiol 2021-0 Yes [id number] 10ug Insert 1 [facility] (YUVAFEM) 5-19 tablet ity of 10 mcg 00:00: into [place] tablet 00 vagina 2 Medical (two) Branch times per week. Estradiol 2021-0 Yes [id number] 10ug Insert 1 [facility] (YUVAFEM) 5-19 tablet ity of 10 mcg 00:00: into [place] tablet 00 vagina 2 Medical (two) Branch times per week. Estradiol 2021-0 Yes [id number] 10ug Insert 1 [facility] (YUVAFEM) 5-19 tablet ity of 10 mcg 00:00: into [place] tablet 00 vagina 2 Medical (two) Branch times per week. Estradiol 2021-0 Yes [id number] 10ug Insert 1 [facility] (YUVAFEM) 5-19 tablet ity of 10 mcg 00:00: into [place] tablet 00 vagina 2 Medical (two) Branch times per week. Estradiol 2021-0 Yes [id number] 10ug Insert 1 [facility] (YUVAFEM) 5-19 tablet ity of 10 mcg 00:00: into [place] tablet 00 vagina 2 Medical (two) Branch times per week. Estradiol 2021-0 Yes [id number] 10ug Insert 1 [facility] (YUVAFEM) 5-19 tablet ity of 10 mcg 00:00: into [place] tablet 00 vagina 2 Medical (two) Branch times per week. Estradiol 2-0 Yes [id number] 10ug Insert 1 [facility] (YUVAFEM) 5-19 tablet ity of 10 mcg 00:00: into [place] tablet 00 vagina 2 Medical (two) Branch times per week. Estradiol 2-0 Yes [id number] 10ug Insert 1 [facility] (YUVAFEM) 5-19 tablet ity of 10 mcg 00:00: into [place] tablet 00 vagina 2 Medical (two) Branch times per week. Estradiol 2022-0 Yes [id number] 10ug Insert 1 [facility] (YUVAFEM) 5-19 tablet ity of 10 mcg 00:00: into [place] tablet 00 vagina 2 Medical (two) Branch times per week. Estradiol 2022-0 Yes [id number] 10ug Insert 1 [facility] (YUVAFEM) 5-19 tablet ity of 10 mcg 00:00: into [place] tablet 00 vagina 2 Medical (two) Branch times per week. Estradiol 2022-0 Yes [id number] 10ug Insert 1 [facility] (YUVAFEM) 5-19 tablet ity of 10 mcg 00:00: into [place] tablet 00 vagina 2 Medical (two) Branch times per week. Estradiol 2021-0 Yes [id number] 10ug Insert 1 [facility] (YUVAFEM) 5-19 tablet ity of 10 mcg 00:00: into [place] tablet 00 vagina 2 Medical (two) Branch times per week. Estradiol 2021-0 Yes [id number] 10ug Insert 1 [facility] (YUVAFEM) 5-19 tablet ity of 10 mcg 00:00: into [place] tablet 00 vagina 2 Medical (two) Branch times per week. Estradiol 2021-0 Yes [id number] 10ug Insert 1 [facility] (YUVAFEM) 5-19 tablet ity of 10 mcg 00:00: into [place] tablet 00 vagina 2 Medical (two) Branch times per week. Estradiol 2021-0 Yes [id number] 10ug Insert 1 [facility] (YUVAFEM) 5-19 tablet ity of 10 mcg 00:00: into [place] tablet 00 vagina 2 Medical (two) Branch times per week. Estradiol 2021-0 Yes [id number] 10ug Insert 1 [facility] (YUVAFEM) 5-19 tablet ity of 10 mcg 00:00: into [place] tablet 00 vagina 2 Medical (two) Branch times per week. Estradiol 202-0 Yes [id number] 10ug Insert 1 [facility] (YUVAFEM) 5-19 tablet ity of 10 mcg 00:00: into [place] tablet 00 vagina 2 Medical (two) Branch times per week. Estradiol 2021-0 Yes [id number] 10ug Insert 1 [facility] (YUVAFEM) 5-19 tablet ity of 10 mcg 00:00: into [place] tablet 00 vagina 2 Medical (two) Branch times per week. Estradiol 2022-0 Yes [id number] 10ug Insert 1 [facility] (YUVAFEM) 5-19 tablet ity of 10 mcg 00:00: into [place] tablet 00 vagina 2 Medical (two) Branch times per week. Estradiol 2022-0 Yes [id number] 10ug Insert 1 [facility] (YUVAFEM) 5-19 tablet ity of 10 mcg 00:00: into [place] tablet 00 vagina 2 Medical (two) Branch times per week. Estradiol 2021-0 Yes [id number] 10ug Insert 1 [facility] (YUVAFEM) 5-19 tablet ity of 10 mcg 00:00: into [place] tablet 00 vagina 2 Medical (two) Branch times per week. Estradiol 2021-0 Yes [id number] 10ug Insert 1 [facility] (YUVAFEM) 5-19 tablet ity of 10 mcg 00:00: into [place] tablet 00 vagina 2 Medical (two) Branch times per week. Estradiol 2021-0 Yes [id number] 10ug Insert 1 [facility] (YUVAFEM) 5-19 tablet ity of 10 mcg 00:00: into [place] tablet 00 vagina 2 Medical (two) Branch times per week. Estradiol 2021-0 Yes [id number] 10ug Insert 1 [facility] (YUVAFEM) 5-19 tablet ity of 10 mcg 00:00: into [place] tablet 00 vagina 2 Medical (two) Branch times per week. Estradiol 2021-0 Yes [id number] 10ug Insert 1 [facility] (YUVAFEM) 5-19 tablet ity of 10 mcg 00:00: into [place] tablet 00 vagina 2 Medical (two) Branch times per week. Estradiol 2021-0 Yes [id number] 10ug Insert 1 [facility] (YUVAFEM) 5-19 tablet ity of 10 mcg 00:00: into [place] tablet 00 vagina 2 Medical (two) Branch times per week. Estradiol 2021-0 Yes [id number] 10ug Insert 1 [facility] (YUVAFEM) 5-19 tablet ity of 10 mcg 00:00: into [place] tablet 00 vagina 2 Medical (two) Branch times per week. Estradiol 2021-0 Yes [id number] 10ug Insert 1 [facility] (YUVAFEM) 5-19 tablet ity of 10 mcg 00:00: into [place] tablet 00 vagina 2 Medical (two) Branch times per week. Estradiol 2021-0 Yes [id number] 10ug Insert 1 [facility] (YUVAFEM) 5-19 tablet ity of 10 mcg 00:00: into [place] tablet 00 vagina 2 Medical (two) Branch times per week. Estradiol 2021-0 Yes [id number] 10ug Insert 1 [facility] (YUVAFEM) 5-19 tablet ity of 10 mcg 00:00: into [place] tablet 00 vagina 2 Medical (two) Branch times per week. Estradiol 2021-2021- No [id number] 10ug Insert 1 [facility] (YUVAFEM) 5-19 12-21 tablet ity of 10 mcg 00:00: 00:00 into [place] tablet 00 :00 vagina 2 Medical (two) Branch times per week. Estradiol 2021- No [id number] 10ug Insert 1 [facility] (YUVAFEM) 5-19 12-21 tablet ity of 10 mcg 00:00: 00:00 into [place] tablet 00 :00 vagina 2 Medical (two) Branch times per week. Estradiol 2021- No [id number] 10ug Insert 1 [facility] (YUVAFEM) 5-19 12-21 tablet ity of 10 mcg 00:00: 00:00 into [place] tablet 00 :00 vagina 2 Medical (two) Branch times per week. Estradiol 2021- No [id number] 10ug Insert 1 [facility] (YUVAFEM) 5-19 12-21 tablet ity of 10 mcg 00:00: 00:00 into [place] tablet 00 :00 vagina 2 Medical (two) Branch times per week. furosemide Yes [id number] 20mg Take 1 U nivers 20 mg 2-28 tablet by ity of tablet 00:00: mouth [place] 00 daily. Medical Branch doxazosin 1 0 Yes [id number] 1mg Take 1 [facility] mg tablet 2-28 tablet by ity o f 00:00: mouth at [place] 00 bedtime. Medical Branch furosemide 0 Yes [id number] 20mg Take 1 U nivers 20 mg 2-28 tablet by ity of tablet 00:00: mouth 00 daily. Medical Branch doxazosin 1 0 Yes [id number] 1mg Take 1 [facility] mg tablet 2-28 tablet by ity o f 00:00: mouth at [place] 00 bedtime. Medical Branch furosemide 2021-0 Yes [id number] 20mg Take 1 U nivers 20 mg 2-28 tablet by ity of tablet 00:00: mouth [place] 00 daily. Medical Branch doxazosin 1 2021-0 Yes [id number] 1mg Take 1 [facility] mg tablet 2-28 tablet by ity o f 00:00: mouth at [place] 00 bedtime. Medical Branch furosemide 2021-0 Yes [id number] 20mg Take 1 U nivers 20 mg 2-28 tablet by ity of tablet 00:00: mouth [place] 00 daily. Medical Branch doxazosin 1 2021-0 Yes [id number] 1mg Take 1 [facility] mg tablet 2-28 tablet by ity o f 00:00: mouth at [place] 00 bedtime. Medical Branch furosemide 2021-0 Yes [id number] 20mg Take 1 U nivers 20 mg 2-28 tablet by ity of tablet 00:00: mouth [place] 00 daily. Medical Branch doxazosin 1 2021-0 Yes [id number] 1mg Take 1 [facility] mg tablet 2-28 tablet by ity o f 00:00: mouth at [place] 00 bedtime. Medical Branch furosemide 2021-0 Yes [id number] 20mg Take 1 U nivers 20 mg 2-28 tablet by ity of tablet 00:00: mouth 00 daily. Medical Branch doxazosin 1 2021-0 Yes [id number] 1mg Take 1 [facility] mg tablet 2-28 tablet by ity o f 00:00: mouth at [place] bedtime. Medical Branch furosemide 2021-0 Yes [id number] 20mg Take 1 U nivers 20 mg 2-28 tablet by ity of tablet 00:00: mouth daily. Medical Branch doxazosin 1 2021-0 Yes [id number] 1mg Take 1 [facility] mg tablet 2-28 tablet by ity o f 00:00: mouth at [place] bedtime. Medical Branch furosemide 2021-0 Yes [id number] 20mg Take 1 U nivers 20 mg 2-28 tablet by ity of tablet 00:00: mouth daily. Medical Branch doxazosin 1 2021-0 Yes [id number] 1mg Take 1 [facility] mg tablet 2-28 tablet by ity o f 00:00: mouth at [place] bedtime. Medical Branch furosemide 2021-0 Yes [id number] 20mg Take 1 U nivers 20 mg 2-28 tablet by ity of tablet 00:00: mouth 00 daily. Medical Branch doxazosin 1 2021-0 Yes [id number] 1mg Take 1 [facility] mg tablet 2-28 tablet by ity o f 00:00: mouth at [place] 00 bedtime. Medical Branch furosemide 2021-0 Yes [id number] 20mg Take 1 U nivers 20 mg 2-28 tablet by ity of tablet 00:00: mouth 00 daily. Medical Branch doxazosin 1 2021-0 Yes [id number] 1mg Take 1 [facility] mg tablet 2-28 tablet by ity o f 00:00: mouth at [place] bedtime. Medical Branch furosemide 2021-0 Yes [id number] 20mg Take 1 U nivers 20 mg 2-28 tablet by ity of tablet 00:00: mouth 00 daily. Medical Branch doxazosin 1 2021-0 Yes [id number] 1mg Take 1 [facility] mg tablet 2-28 tablet by ity o f 00:00: mouth at [place] bedtime. Medical Branch furosemide 2021-0 Yes [id number] 20mg Take 1 U nivers 20 mg 2-28 tablet by ity of tablet 00:00: mouth 00 daily. Medical Branch doxazosin 1 2021-0 Yes [id number] 1mg Take 1 [facility] mg tablet 2-28 tablet by ity o f 00:00: mouth at [place] bedtime. Medical Branch furosemide 2021-0 Yes [id number] 20mg Take 1 U nivers 20 mg 2-28 tablet by ity of tablet 00:00: mouth daily. Medical Branch doxazosin 1 2021-0 Yes [id number] 1mg Take 1 [facility] mg tablet 2-28 tablet by ity o f 00:00: mouth at [place] bedtime. Medical Branch furosemide 2021-0 Yes [id number] 20mg Take 1 U nivers 20 mg 2-28 tablet by ity of tablet 00:00: mouth daily. Medical Branch doxazosin 1 2021-0 Yes [id number] 1mg Take 1 [facility] mg tablet 2-28 tablet by ity o f 00:00: mouth at [place] bedtime. Medical Branch furosemide 2021-0 Yes [id number] 20mg Take 1 U nivers 20 mg 2-28 tablet by ity of tablet 00:00: mouth daily. Medical Branch doxazosin 1 2021-0 Yes [id number] 1mg Take 1 [facility] mg tablet 2-28 tablet by ity o f 00:00: mouth at [place] bedtime. Medical Branch furosemide 2021-0 Yes [id number] 20mg Take 1 U nivers 20 mg 2-28 tablet by ity of tablet 00:00: mouth 00 daily. Medical Branch doxazosin 1 2021-0 Yes [id number] 1mg Take 1 [facility] mg tablet 2-28 tablet by ity o f 00:00: mouth at [place] bedtime. Medical Branch furosemide 2021-0 Yes [id number] 20mg Take 1 U nivers 20 mg 2-28 tablet by ity of tablet 00:00: mouth [place] 00 daily. Medical Branch doxazosin 1 2021-0 Yes [id number] 1mg Take 1 [facility] mg tablet 2-28 tablet by ity o f 00:00: mouth at [place] 00 bedtime. Medical Branch furosemide 2021-0 Yes [id number] 20mg Take 1 U nivers 20 mg 2-28 tablet by ity of tablet 00:00: mouth [place] 00 daily. Medical Branch doxazosin 1 2021-0 Yes [id number] 1mg Take 1 [facility] mg tablet 2-28 tablet by ity o f 00:00: mouth at [place] 00 bedtime. Medical Branch furosemide 2021-0 Yes [id number] 20mg Take 1 U nivers 20 mg 2-28 tablet by ity of tablet 00:00: mouth [place] 00 daily. Medical Branch doxazosin 1 2021-0 Yes [id number] 1mg Take 1 [facility] mg tablet 2-28 tablet by ity o f 00:00: mouth at [place] bedtime. Medical Branch furosemide 2021-0 Yes [id number] 20mg Take 1 U nivers 20 mg 2-28 tablet by ity of tablet 00:00: mouth 00 daily. Medical Branch doxazosin 1 2021-0 Yes [id number] 1mg Take 1 [facility] mg tablet 2-28 tablet by ity o f 00:00: mouth at [place] bedtime. Medical Branch furosemide 2021-0 Yes [id number] 20mg Take 1 U nivers 20 mg 2-28 tablet by ity of tablet 00:00: mouth 00 daily. [facility] Branch doxazosin 1 2021-0 Yes [id number] 1mg Take 1 [facility] mg tablet 2-28 tablet by ity o f 00:00: mouth at [place] bedtime. [facility] Branch furosemide 2021-0 Yes [id number] 20mg Take 1 U nivers 20 mg 2-28 tablet by ity of tablet 00:00: mouth [place] 00 daily. [facility] Branch doxazosin 1 2021-0 Yes [id number] 1mg Take 1 [facility] mg tablet 2-28 tablet by ity o f 00:00: mouth at [place] 00 bedtime. [facility] Branch furosemide 2021-0 Yes [id number] 20mg Take 1 [facility] nivers 20 mg 2-28 tablet by ity of tablet 00:00: mouth [place] 00 daily. [facility] Branch doxazosin 1 2021-0 Yes [id number] 1mg Take 1 [facility] mg tablet 2-28 tablet by ity o f 00:00: mouth at [place] 00 bedtime. [facility] Branch furosemide 2021-0 Yes [id number] 20mg Take 1 U nivers 20 mg 2-28 tablet by ity of tablet 00:00: mouth [place] 00 daily. [facility] Branch doxazosin 1 2021-0 Yes [id number] 1mg Take 1 [facility] mg tablet 2-28 tablet by ity o f 00:00: mouth at [place] bedtime. Medical Branch furosemide 2021-0 Yes [id number] 20mg Take 1 U nivers 20 mg 2-28 tablet by ity of tablet 00:00: mouth 00 daily. [facility] Branch doxazosin 1 2021-0 Yes [id number] 1mg Take 1 [facility] mg tablet 2-28 tablet by ity o f 00:00: mouth at [place] bedtime. Medical Branch furosemide 2021-0 Yes [id number] 20mg Take 1 U nivers 20 mg 2-28 tablet by ity of tablet 00:00: mouth daily. [facility] Branch doxazosin 1 2021-0 Yes [id number] 1mg Take 1 [facility] mg tablet 2-28 tablet by ity o f 00:00: mouth at [place] bedtime. [facility] Branch furosemide 2021-0 Yes [id number] 20mg Take 1 U nivers 20 mg 2-28 tablet by ity of tablet 00:00: mouth daily. [facility] Branch doxazosin 1 2021-0 Yes [id number] 1mg Take 1 [facility] mg tablet 2-28 tablet by ity o f 00:00: mouth at [place] bedtime. [facility] Branch furosemide 2021-0 Yes [id number] 20mg Take 1 [facility] nivers 20 mg 2-28 tablet by ity of tablet 00:00: mouth 00 daily. [facility] Branch doxazosin 1 2021-0 Yes [id number] 1mg Take 1 [facility] mg tablet 2-28 tablet by ity o f 00:00: mouth at [place] bedtime. [facility] Branch furosemide 2021-0 Yes [id number] 20mg Take 1 [facility] nivers 20 mg 2-28 tablet by ity of tablet 00:00: mouth 00 daily. [facility] Branch doxazosin 1 2021-0 Yes [id number] 1mg Take 1 [facility] mg tablet 2-28 tablet by ity o f 00:00: mouth at [place] bedtime. Medical Branch furosemide 2021-0 Yes [id number] 20mg Take 1 U nivers 20 mg 2-28 tablet by ity of tablet 00:00: mouth 00 daily. [facility] Branch doxazosin 1 2021-0 Yes [id number] 1mg Take 1 [facility] mg tablet 2-28 tablet by ity o f 00:00: mouth at [place] bedtime. [facility] Branch furosemide 2021-0 Yes [id number] 20mg Take 1 U nivers 20 mg 2-28 tablet by ity of tablet 00:00: mouth 00 daily. [facility] Branch doxazosin 1 2021-0 Yes [id number] 1mg Take 1 [facility] mg tablet 2-28 tablet by ity o f 00:00: mouth at [place] bedtime. [facility] Branch furosemide 2021-0 Yes [id number] 20mg Take 1 U nivers 20 mg 2-28 tablet by ity of tablet 00:00: mouth daily. [facility] Branch doxazosin 1 2021-0 Yes [id number] 1mg Take 1 [facility] mg tablet 2-28 tablet by ity o f 00:00: mouth at [place] bedtime. [facility] Branch furosemide 2021-0 Yes [id number] 20mg Take 1 [facility] nivers 20 mg 2-28 tablet by ity of tablet 00:00: mouth daily. [facility] Branch doxazosin 1 2021-0 Yes [id number] 1mg Take 1 [facility] mg tablet 2-28 tablet by ity o f 00:00: mouth at [place] bedtime. [facility] Branch furosemide 2021-0 Yes [id number] 20mg Take 1 [facility] nivers 20 mg 2-28 tablet by it[facility] of tablet 00:00: mouth daily. [facility] Branch doxazosin 1 2021-0 Yes [id number] 1mg Take 1 [facility] mg tablet 2-28 tablet by ity o f 00:00: mouth at [place] bedtime. [facility] Branch furosemide 2021-0 Yes [id number] 20mg Take 1 [facility] nivers 20 mg 2-28 tablet by ity of tablet 00:00: mouth 00 daily. [facility] Branch doxazosin 1 2021-0 Yes [id number] 1mg Take 1 [facility] mg tablet 2-28 tablet by ity o f 00:00: mouth at [place] bedtime. [facility] Branch furosemide 2021-0 Yes [id number] 20mg Take 1 [facility] nivers 20 mg 2-28 tablet by ity of tablet 00:00: mouth [place] 00 daily. [facility] Branch doxazosin 1 2021-0 Yes [id number] 1mg Take 1 [facility] mg tablet 2-28 tablet by ity o f 00:00: mouth at [place] 00 bedtime. [facility] Branch furosemide 2021-0 Yes [id number] 20mg Take 1 [facility] nivers 20 mg 2-28 tablet by ity of tablet 00:00: mouth [place] 00 daily. [facility] Branch doxazosin 1 2021-0 Yes [id number] 1mg Take 1 [facility] mg tablet 2-28 tablet by ity o f 00:00: mouth at [place] bedtime. [facility] Branch furosemide 2021-0 Yes [id number] 20mg Take 1 [facility] nivers 20 mg 2-28 tablet by ity of tablet 00:00: mouth [place] 00 daily. [facility] Branch doxazosin 1 2021-0 Yes [id number] 1mg Take 1 [facility] mg tablet 2-28 tablet by ity o f 00:00: mouth at [place] bedtime. [facility] Branch furosemide 2021-0 Yes [id number] 20mg Take 1 [facility] nivers 20 mg 2-28 tablet by ity of tablet 00:00: mouth [place] 00 daily. [facility] Branch doxazosin 1 2021-0 Yes [id number] 1mg Take 1 [facility] mg tablet 2-28 tablet by ity o f 00:00: mouth at [place] bedtime. [facility] Branch furosemide 2021-0 Yes [id number] 20mg Take 1 U nivers 20 mg 2-28 tablet by ity of tablet 00:00: mouth 00 daily. [facility] Branch doxazosin 1 2021-0 Yes [id number] 1mg Take 1 [facility] mg tablet 2-28 tablet by ity o f 00:00: mouth at [place] bedtime. [facility] Branch furosemide 2021-0 Yes [id number] 20mg Take 1 U nivers 20 mg 2-28 tablet by ity of tablet 00:00: mouth [place] 00 daily. [facility] Branch doxazosin 1 2021-0 Yes [id number] 1mg Take 1 [facility] mg tablet 2-28 tablet by ity o f 00:00: mouth at [place] 00 bedtime. [facility] Branch furosemide 2021-0 Yes [id number] 20mg Take 1 [facility] nivers 20 mg 2-28 tablet by ity of tablet 00:00: mouth [place] 00 daily. [facility] Branch doxazosin 1 2021-0 Yes [id number] 1mg Take 1 [facility] mg tablet 2-28 tablet by ity o f 00:00: mouth at [place] 00 bedtime. [facility] Branch furosemide 2021-0 Yes [id number] 20mg Take 1 [facility] 20 mg 2-28 tablet by [facility] tablet 00:00: mouth [place] 00 daily. [facility] doxazosin 1 2021-0 Yes [id number] 1mg Take 1 [facility]-28 tablet by [facility] f 00:00: mouth at [place] bedtime. [facility] furosemide 2021-0 Yes [id number] 20mg Take 1 [facility] 20 mg 2-28 tablet by [facility] tablet 00:00: mouth 00 daily. [facility] doxazosin 1 2021-0 Yes [id number] 1mg Take 1 [facility] mg tablet 2-28 tablet by [facility] f 00:00: mouth at [place] bedtime. [facility] furosemide 2021-0 Yes [id number] 20mg Take 1 [facility] 20 mg 2-28 tablet by [facility] tablet 00:00: mouth daily. [facility] doxazosin 1 2021-0 Yes [id number] 1mg Take 1 [facility] mg tablet 2-28 tablet by [facility] f 00:00: mouth at [place] bedtime. [facility] furosemide 2021-0 Yes [id number] 20mg Take 1 [facility] 20 mg 2-28 tablet by [facility] tablet 00:00: mouth daily. [facility] doxazosin 1 2021-0 Yes [id number] 1mg Take 1 [facility] mg tablet 2-28 tablet by [facility] f 00:00: mouth at [place] bedtime. [facility] furosemide 2021-0 Yes [id number] 20mg Take 1 [facility] 20 mg 2-28 tablet by [facility] tablet 00:00: mouth 00 daily. [facility] doxazosin 1 2021-0 Yes [id number] 1mg Take 1 [facility] mg tablet 2-28 tablet by [facility] f 00:00: mouth at [place] bedtime. [facility] furosemide 2021-0 Yes [id number] 20mg Take 1 [facility] 20 mg 2-28 tablet by [facility] tablet 00:00: mouth 00 daily. [facility] doxazosin 1 2021-0 Yes [id number] 1mg Take 1 [facility] mg tablet 2-28 tablet by [facility] f 00:00: mouth at [place] bedtime. [facility] furosemide 2021-0 Yes [id number] 20mg Take 1 [facility] 20 mg 2-28 tablet by [facility] tablet 00:00: mouth 00 daily. [facility] doxazosin 1 2021-0 Yes [id number] 1mg Take 1 [facility] mg tablet 2-28 tablet by [facility] f 00:00: mouth at [place] bedtime. [facility] furosemide 2021-0 Yes [id number] 20mg Take 1 [facility] 20 mg 2-28 tablet by [facility] tablet 00:00: mouth 00 daily. [facility] doxazosin 1 2021-0 Yes [id number] 1mg Take 1 [facility] mg tablet 2-28 tablet by [facility] f 00:00: mouth at [place] bedtime. [facility] furosemide 2021-0 Yes [id number] 20mg Take 1 [facility] 20 mg 2-28 tablet by [facility] tablet 00:00: mouth daily. [facility] doxazosin 1 2021-0 Yes [id number] 1mg Take 1 [facility] mg tablet 2-28 tablet by [facility] f 00:00: mouth at [place] bedtime. [facility] furosemide 2021-0 Yes [id number] 20mg Take 1 [facility] 20 mg 2-28 tablet by [facility] tablet 00:00: mouth daily. [facility] doxazosin 1 2021-0 Yes [id number] 1mg Take 1 [facility] mg tablet 2-28 tablet by [facility] f 00:00: mouth at [place] bedtime. [facility] furosemide 2021-0 Yes [id number] 20mg Take 1 [facility] 20 mg 2-28 tablet by [facility] tablet 00:00: mouth daily. [facility] doxazosin 1 2021-0 Yes [id number] 1mg Take 1 [facility] mg tablet 2-28 tablet by [facility] f 00:00: mouth at [place] bedtime. [facility] furosemide 2021-0 Yes [id number] 20mg Take 1 [facility] 20 mg 2-28 tablet by [facility] tablet 00:00: mouth daily. [facility] doxazosin 1 2021-0 Yes [id number] 1mg Take 1 [facility] mg tablet 2-28 tablet by [facility] f 00:00: mouth at [place] bedtime. [facility] furosemide 2022-0 Yes [id number] 20mg Take 1 [facility] 20 mg 2-28 tablet by [facility] tablet 00:00: mouth [place] 00 daily. [facility] doxazosin 1 2021-0 Yes [id number] 1mg Take 1 [facility] mg tablet 2-28 tablet by [facility] f 00:00: mouth at [place] 00 bedtime. [facility] furosemide 2021-0 Yes [id number] 20mg Take 1 [facility] 20 mg 2-28 tablet by [facility] tablet 00:00: mouth [place] 00 daily. [facility] doxazosin 1 2021-0 Yes [id number] 1mg Take 1 [facility] mg tablet 2-28 tablet by [facility] f 00:00: mouth at [place] bedtime. [facility] furosemide 2021-0 Yes [id number] 20mg Take 1 [facility] 20 mg 2-28 tablet by [facility] tablet 00:00: mouth 00 daily. [facility] doxazosin 1 2021-0 Yes [id number] 1mg Take 1 [facility] mg tablet 2-28 tablet by [facility] f 00:00: mouth at [place] bedtime. [facility] furosemide 2021-0 Yes [id number] 20mg Take 1 [facility] 20 mg 2-28 tablet by [facility] tablet 00:00: mouth 00 daily. [facility] doxazosin 1 2021-0 Yes [id number] 1mg Take 1 [facility] mg tablet 2-28 tablet by [facility] f 00:00: mouth at [place] bedtime. [facility] furosemide 2021-0 Yes [id number] 20mg Take 1 [facility] 20 mg 2-28 tablet by [facility] tablet 00:00: mouth 00 daily. [facility] doxazosin 1 2021-0 Yes [id number] 1mg Take 1 [facility] mg tablet 2-28 tablet by [facility] f 00:00: mouth at [place] bedtime. [facility] furosemide 2021-0 Yes [id number] 20mg Take 1 [facility] 20 mg 2-28 tablet by [facility] tablet 00:00: mouth [place] 00 daily. [facility] doxazosin 1 2021-0 Yes [id number] 1mg Take 1 [facility] mg tablet 2-28 tablet by [facility] f 00:00: mouth at [place] bedtime. [facility] furosemide 2021-0 Yes [id number] 20mg Take 1 [facility] 20 mg 2-28 tablet by [facility] tablet 00:00: mouth [place] 00 daily. [facility] doxazosin 1 2021-0 Yes [id number] 1mg Take 1 [facility] mg tablet 2-28 tablet by [facility] f 00:00: mouth at [place] 00 bedtime. [facility] furosemide 2021-0 Yes [id number] 20mg Take 1 [facility] 20 mg 2-28 tablet by [facility] tablet 00:00: mouth [place] 00 daily. [facility] doxazosin 1 2021-0 Yes [id number] 1mg Take 1 [facility] mg tablet 2-28 tablet by [facility] f 00:00: mouth at [place] bedtime. [facility] furosemide 2021-0 Yes [id number] 20mg Take 1 [facility] 20 mg 2-28 tablet by [facility] tablet 00:00: mouth 00 daily. [facility] doxazosin 1 2021-0 Yes [id number] 1mg Take 1 [facility] mg tablet 2-28 tablet by [facility] f 00:00: mouth at [place] bedtime. [facility] furosemide 2021-0 Yes [id number] 20mg Take 1 [facility] 20 mg 2-28 tablet by [facility] tablet 00:00: mouth daily. [facility] doxazosin 1 2021-0 Yes [id number] 1mg Take 1 [facility] mg tablet 2-28 tablet by [facility] f 00:00: mouth at [place] bedtime. [facility] furosemide 2021-0 Yes [id number] 20mg Take 1 [facility] 20 mg 2-28 tablet by [facility] tablet 00:00: mouth daily. [facility] doxazosin 1 2021-0 Yes [id number] 1mg Take 1 [facility] mg tablet 2-28 tablet by [facility] f 00:00: mouth at [place] bedtime. [facility] furosemide 2021-0 Yes [id number] 20mg Take 1 [facility] 20 mg 2-28 tablet by [facility] tablet 00:00: mouth 00 daily. [facility] doxazosin 1 2021-0 Yes [id number] 1mg Take 1 [facility] mg tablet 2-28 tablet by [facility] f 00:00: mouth at [place] bedtime. [facility] furosemide 2021-0 Yes [id number] 20mg Take 1 [facility] 20 mg 2-28 tablet by [facility] tablet 00:00: mouth 00 daily. [facility] doxazosin 1 2021-0 Yes [id number] 1mg Take 1 [facility] mg tablet 2-28 tablet by [facility] f 00:00: mouth at [place] 00 bedtime. [facility] furosemide 2021-0 Yes [id number] 20mg Take 1 [facility] 20 mg 2-28 tablet by [facility] tablet 00:00: mouth [place] 00 daily. [facility] doxazosin 1 2021-0 Yes [id number] 1mg Take 1 [facility] mg tablet 2-28 tablet by [facility] f 00:00: mouth at [place] 00 bedtime. [facility] furosemide 2021-0 Yes [id number] 20mg Take 1 [facility] 20 mg 2-28 tablet by [facility] tablet 00:00: mouth [place] 00 daily. [facility] doxazosin 1 2021-0 Yes [id number] 1mg Take 1 [facility] mg tablet 2-28 tablet by [facility] f 00:00: mouth at [place] 00 bedtime. [facility] furosemide 2021-0 Yes [id number] 20mg Take 1 [facility] 20 mg 2-28 tablet by [facility] tablet 00:00: mouth [place] 00 daily. [facility] doxazosin 1 2021-0 Yes [id number] 1mg Take 1 [facility] mg tablet 2-28 tablet by [facility] f 00:00: mouth at [place] 00 bedtime. [facility] furosemide 2021-0 Yes [id number] 20mg Take 1 [facility] 20 mg 2-28 tablet by [facility] tablet 00:00: mouth [place] 00 daily. [facility] doxazosin 1 2021-0 Yes [id number] 1mg Take 1 [facility] mg tablet 2-28 tablet by [facility] f 00:00: mouth at [place] [address] bedtime. [facility] furosemide 2021-0 Yes [id number] 20mg Take 1 [facility] 20 mg 2-28 tablet by [facility] tablet 00:00: mouth [place] 00 daily. [facility] doxazosin 1 2021-0 Yes [id number] 1mg Take 1 [facility] mg tablet 2-28 tablet by [facility] f 00:00: mouth at [place] 00 bedtime. [facility] furosemide 2021-0 2022- No [id number] 20mg Take 1 [facility] 20 mg 2-28 -13 tablet by [facility] tablet 00:00: 00:00 mouth [place] 00 :00 daily. [facility] doxazosin 1 2021-0 2022- No [id number] 1mg Take 1 [facility] mg tablet 2-28 -13 tablet by [facility] 00:00: 00:00 mouth at [place] 00 :00 bedtime. [facility] furosemide 2021-0 3- No [id number] 20mg Take 1 [facility] 20 mg 10-26 tablet by [facility] tablet 00:00: 00:00 mouth [place] 00 :00 daily. [facility] doxazosin 1 2021-2022- No [id number] 1mg Take 1 [facility] mg tablet 10-26 tablet by [facility] 00:00: 00:00 mouth at [place] 00 :00 bedtime. [facility] furosemide 2021-0 2022- No [id number] 20mg Take 1 [facility] 20 mg 10-26 tablet by [facility] tablet 00:00: 00:00 mouth [place] 00 :00 daily. [facility] doxazosin 1 2021-2022- No [id number] 1mg Take 1 [facility] mg tablet 10-26 tablet by [facility] 00:00: 00:00 mouth at [place] 00 :00 bedtime. [facility] vitamin 2021-0 Yes [id number] 1000ug Take 1 [facility] B-12 1-21 tablet by [facility] (VITAMIN 00:00: mouth [place] B-12) 1,000 00 daily. [facility] tablet [facility] vitamin 2021-0 Yes [id number] 1000ug Take 1 [facility] B-12 1-21 tablet by [facility] (VITAMIN 00:00: mouth [place] B-12) 1,000 00 daily. [facility] m[facility] tablet [facility] vitamin 2021-0 Yes [id number] 1000ug Take 1 [facility] B-12 1-21 tablet by [facility] (VITAMIN 00:00: mouth [place] B-12) 1,000 00 daily. [facility] tablet [facility] vitamin 2-0 Yes [id number] 1000ug Take 1 [facility] B-12 1-21 tablet by [facility] (VITAMIN 00:00: mouth [place] B-12) 1,000 00 daily. [facility] tablet [facility] vitamin 2-0 Yes [id number] 1000ug Take 1 [facility] B-12 1-21 tablet by [facility] (VITAMIN 00:00: mouth [place] B-12) 1,000 00 daily. [facility] tablet [facility] vitamin 2-0 Yes [id number] 1000ug Take 1 [facility] B-12 1-21 tablet by [facility] (VITAMIN 00:00: mouth [place] B-12) 1,000 00 daily. [facility] m[facility] tablet [facility] vitamin 2022-0 Yes [id number] 1000ug Take 1 [facility] B-12 1-21 tablet by [facility] (VITAMIN 00:00: mouth [place] B-12) 1,000 00 daily. [facility] m[facility] tablet [facility] vitamin 2022-0 Yes [id number] 1000ug Take 1 [facility] B-12 1-21 tablet by [facility] (VITAMIN 00:00: mouth [place] B-12) 1,000 00 daily. [facility] tablet [facility] vitamin 2022-0 Yes [id number] 1000ug Take 1 [facility] B-12 1-21 tablet by [facility] (VITAMIN 00:00: mouth [place] B-12) 1,000 00 daily. [facility] tablet [facility] vitamin 2022-0 Yes [id number] 1000ug Take 1 [facility] B-12 1-21 tablet by [facility] (VITAMIN 00:00: mouth [place] B-12) 1,000 00 daily. [facility] m[facility] tablet [facility] vitamin 2022-0 Yes [id number] 1000ug Take 1 [facility] B-12 1-21 tablet by [facility] (VITAMIN 00:00: mouth [place] B-12) 1,000 00 daily. [facility] m[facility] tablet [facility] vitamin 2022-0 Yes [id number] 1000ug Take 1 [facility] B-12 1-21 tablet by [facility] (VITAMIN 00:00: mouth [place] B-12) 1,000 00 daily. [facility] tablet [facility] vitamin 2022-0 Yes [id number] 1000ug Take 1 [facility] B-12 1-21 tablet by [facility] (VITAMIN 00:00: mouth [place] B-12) 1,000 00 daily. [facility] m[facility] tablet [facility] vitamin 2022-0 Yes [id number] 1000ug Take 1 [facility] B-12 1-21 tablet by [facility] (VITAMIN 00:00: mouth [place] B-12) 1,000 00 daily. [facility] m[facility] tablet [facility] vitamin 2022-0 Yes [id number] 1000ug Take 1 [facility] B-12 1-21 tablet by [facility] (VITAMIN 00:00: mouth [place] B-12) 1,000 00 daily. [facility] mcg tablet [facility] vitamin 2022-0 Yes [id number] 1000ug Take 1 [facility] B-12 1-21 tablet by [facility] (VITAMIN 00:00: mouth [place] B-12) 1,000 00 daily. [facility] m[facility] tablet [facility] vitamin 2022-0 Yes [id number] 1000ug Take 1 [facility] B-12 1-21 tablet by [facility] (VITAMIN 00:00: mouth [place] B-12) 1,000 00 daily. [facility] m[facility] tablet [facility] vitamin 2022-0 Yes [id number] 1000ug Take 1 [facility] B-12 1-21 tablet by [facility] (VITAMIN 00:00: mouth [place] B-12) 1,000 00 daily. [facility] m[facility] tablet [facility] vitamin 2022-0 Yes [id number] 1000ug Take 1 [facility] B-12 1-21 tablet by [facility] (VITAMIN 00:00: mouth [place] B-12) 1,000 00 daily. [facility] m[facility] tablet [facility] vitamin 2022-0 Yes [id number] 1000ug Take 1 [facility] B-12 1-21 tablet by [facility] (VITAMIN 00:00: mouth [place] B-12) 1,000 00 daily. [facility] m[facility] tablet [facility] vitamin 2022-0 Yes [id number] 1000ug Take 1 [facility] B-12 1-21 tablet by [facility] (VITAMIN 00:00: mouth [place] B-12) 1,000 00 daily. [facility] m[facility] tablet [facility] vitamin 2022-0 Yes [id number] 1000ug Take 1 [facility] B-12 1-21 tablet by [facility] (VITAMIN 00:00: mouth [place] B-12) 1,000 00 daily. [facility] m[facility] tablet [facility] vitamin 2022-0 Yes [id number] 1000ug Take 1 [facility] B-12 1-21 tablet by [facility] (VITAMIN 00:00: mouth [place] B-12) 1,000 00 daily. [facility] m[facility] tablet [facility] vitamin 2022-0 Yes [id number] 1000ug Take 1 [facility] B-12 1-21 tablet by [facility] (VITAMIN 00:00: mouth [place] B-12) 1,000 00 daily. [facility] m[facility] tablet [facility] vitamin 2022-0 Yes [id number] 1000ug Take 1 [facility] B-12 1-21 tablet by [facility] (VITAMIN 00:00: mouth [place] B-12) 1,000 00 daily. [facility] m[facility] tablet [facility] vitamin 2-0 Yes [id number] 1000ug Take 1 [facility] B-12 1-21 tablet by [facility] (VITAMIN 00:00: mouth [place] B-12) 1,000 00 daily. [facility] m[facility] tablet Branch ferrous 2-0 Yes [id number] 324mg Take 1 [facility] gluconate 1-21 100 tablet by [facility] o f 324 mg (38 00:00: mouth [place] mg iron) 00 daily with Medic [facility] tablet breakfast. Branch foLIC acid 2021-0 Yes [id number] 1mg Take 1 [facility] 1 mg tablet 1-21 tablet by [facility] 00:00: mouth [place] 00 daily. [facility] vitamin 2021-0 Yes [id number] 1000ug Take 1 [facility] B-12 1-21 tablet by [facility] (VITAMIN 00:00: mouth [place] B-12) 1,000 00 daily. [facility] tablet Branch chlorthalid 2021-0 Yes [id number] 25mg Take 1 [facility] one 25 mg 1-21 tablet by [facility] o f tablet 00:00: mouth [place] 00 daily. [facility] ferrous 2021-0 Yes [id number] 324mg Take 1 [facility] gluconate 1-21 100 tablet by [facility] o f 324 mg (38 00:00: mouth [place] mg iron) 00 daily with Medic [facility] tablet breakfast. Branch foLIC acid 2021-0 Yes [id number] 1mg Take 1 [facility] 1 mg tablet 1-21 tablet by [facility] 00:00: mouth [place] 00 daily. [facility] vitamin 2-0 Yes [id number] 1000ug Take 1 [facility] B-12 1-21 tablet by [facility] of (VITAMIN 00:00: mouth [place] B-12) 1,000 00 daily. [facility] m[facility] tablet Branch chlorthalid 2-0 Yes [id number] 25mg Take 1 [facility] one 25 mg 1-21 tablet by [facility] o f tablet 00:00: mouth [place] 00 daily. [facility] ferrous 2-0 Yes [id number] 324mg Take 1 [facility] gluconate 1-21 100 tablet by [facility] o f 324 mg (38 00:00: mouth [place] mg iron) 00 daily with Medic [facility] tablet breakfast. Branch foLIC acid 2-0 Yes [id number] 1mg Take 1 [facility] 1 mg tablet 1-21 tablet by [facility] 00:00: mouth [place] 00 daily. [facility] vitamin 2021-0 Yes [id number] 1000ug Take 1 [facility] B-12 1-21 tablet by [facility] of (VITAMIN 00:00: mouth [place] B-12) 1,000 00 daily. [facility] m[facility] tablet Branch chlorthalid 2021-0 Yes [id number] 25mg Take 1 [facility] one 25 mg 1-21 tablet by [facility] o f tablet 00:00: mouth [place] 00 daily. [facility] ferrous 2021-0 Yes [id number] 324mg Take 1 [facility] gluconate 1-21 100 tablet by [facility] o f 324 mg (38 00:00: mouth [place] mg iron) 00 daily with Medic [facility] tablet breakfast. [facility] foLIC acid 2021-0 Yes [id number] 1mg Take 1 [facility] 1 mg tablet 1-21 tablet by [facility] 00:00: mouth [place] 00 daily. [facility] vitamin 2021-0 Yes [id number] 1000ug Take 1 [facility] B-12 1-21 tablet by [facility] of (VITAMIN 00:00: mouth [place] B-12) 1,000 00 daily. [facility] m[facility] tablet Branch ferrous 2021-0 Yes [id number] 324mg Take 1 [facility] gluconate 1-21 100 tablet by [facility] o f 324 mg (38 00:00: mouth [place] mg iron) 00 daily with Medic [facility] tablet breakfast. Branch foLIC acid 2021-0 Yes [id number] 1mg Take 1 [facility] 1 mg tablet 1-21 tablet by [facility] of 00:00: mouth [place] 00 daily. [facility] vitamin 2021-0 Yes [id number] 1000ug Take 1 [facility] B-12 1-21 tablet by [facility] (VITAMIN 00:00: mouth [place] B-12) 1,000 00 daily. [facility] mcg tablet Branch ferrous 2021-0 Yes [id number] 324mg Take 1 [facility] gluconate 1-21 100 tablet by [facility] o f 324 mg (38 00:00: mouth [place] mg iron) 00 daily with Medic [facility] tablet breakfast. Branch foLIC acid 2021-0 Yes [id number] 1mg Take 1 [facility] 1 mg tablet 1-21 tablet by [facility] of 00:00: mouth [place] 00 daily. [facility] vitamin 2021-0 Yes [id number] 1000ug Take 1 [facility] B-12 1-21 tablet by [facility] (VITAMIN 00:00: mouth [place] B-12) 1,000 00 daily. [facility] mcg tablet Branch ferrous 2-0 Yes [id number] 324mg Take 1 [facility] gluconate 1-21 100 tablet by [facility] o f 324 mg (38 00:00: mouth [place] mg iron) 00 daily with Medic [facility] tablet breakfast. Branch foLIC acid 2021-0 Yes [id number] 1mg Take 1 [facility] 1 mg tablet 1-21 tablet by [facility] of 00:00: mouth [place] 00 daily. [facility] vitamin 2-0 Yes [id number] 1000ug Take 1 [facility] B-12 1-21 tablet by [facility] of (VITAMIN 00:00: mouth [place] B-12) 1,000 00 daily. [facility] mcg tablet Branch ferrous 2-0 Yes [id number] 324mg Take 1 [facility] gluconate 1-21 100 tablet by [facility] o f 324 mg (38 00:00: mouth [place] mg iron) 00 daily with Medic [facility] tablet breakfast. Branch foLIC acid 2021-0 Yes [id number] 1mg Take 1 [facility] 1 mg tablet 1-21 tablet by [facility] of 00:00: mouth [place] 00 daily. [facility] vitamin 2-0 Yes [id number] 1000ug Take 1 [facility] B-12 1-21 tablet by [facility] of (VITAMIN 00:00: mouth [place] B-12) 1,000 00 daily. [facility] mcg tablet Branch ferrous 2021-0 Yes [id number] 324mg Take 1 [facility] gluconate 1-21 100 tablet by [facility] o f 324 mg (38 00:00: mouth [place] mg iron) 00 daily with Medic [facility] tablet breakfast. Branch foLIC acid 2021-0 Yes [id number] 1mg Take 1 [facility] 1 mg tablet 1-21 tablet by [facility] of 00:00: mouth [place] 00 daily. [facility] vitamin 2-0 Yes [id number] 1000ug Take 1 [facility] B-12 1-21 tablet by [facility] of (VITAMIN 00:00: mouth [place] B-12) 1,000 00 daily. [facility] mcg tablet Branch ferrous 2-0 Yes [id number] 324mg Take 1 [facility] gluconate 1-21 100 tablet by [facility] o f 324 mg (38 00:00: mouth [place] mg iron) 00 daily with Medic [facility] tablet breakfast. Branch foLIC acid 2-0 Yes [id number] 1mg Take 1 [facility] 1 mg tablet 1-21 tablet by [facility] of 00:00: mouth [place] 00 daily. [facility] vitamin 2-0 Yes [id number] 1000ug Take 1 [facility] B-12 1-21 tablet by [facility] of (VITAMIN 00:00: mouth [place] B-12) 1,000 00 daily. [facility] m[facility] tablet Branch ferrous 2021-0 Yes [id number] 324mg Take 1 [facility] gluconate 1-21 100 tablet by [facility] o f 324 mg (38 00:00: mouth [place] mg iron) 00 daily with Medic al tablet breakfast. Branch foLIC acid 2021-0 Yes [id number] 1mg Take 1 [facility] 1 mg tablet 1-21 tablet by [facility] of 00:00: mouth [place] 00 daily. [facility] vitamin 2021-0 Yes [id number] 1000ug Take 1 [facility] B-12 1-21 tablet by [facility] of (VITAMIN 00:00: mouth [place] B-12) 1,000 00 daily. [facility] mcg tablet Branch ferrous 2021-0 Yes [id number] 324mg Take 1 [facility] gluconate 1-21 100 tablet by [facility] o f 324 mg (38 00:00: mouth [place] mg iron) 00 daily with Medic [facility] tablet breakfast. [facility] foLIC acid 2021-0 Yes [id number] 1mg Take 1 [facility] 1 mg tablet 1-21 tablet by [facility] of 00:00: mouth [place] 00 daily. [facility] vitamin 2021-0 Yes [id number] 1000ug Take 1 [facility] B-12 1-21 tablet by [facility] of (VITAMIN 00:00: mouth [place] B-12) 1,000 00 daily. [facility] mcg tablet Branch ferrous 2021-0 Yes [id number] 324mg Take 1 [facility] gluconate 1-21 100 tablet by [facility] o f 324 mg (38 00:00: mouth [place] mg iron) 00 daily with Medic [facility] tablet breakfast. Branch foLIC acid 2021-0 Yes [id number] 1mg Take 1 [facility] 1 mg tablet 1-21 tablet by [facility] of 00:00: mouth [place] 00 daily. [facility] vitamin 2-0 Yes [id number] 1000ug Take 1 [facility] B-12 1-21 tablet by [facility] of (VITAMIN 00:00: mouth [place] B-12) 1,000 00 daily. [facility] mcg tablet Branch ferrous 2021-0 Yes [id number] 324mg Take 1 [facility] gluconate 1-21 100 tablet by [facility] o f 324 mg (38 00:00: mouth [place] mg iron) 00 daily with Medic [facility] tablet breakfast. Branch foLIC acid 2021-0 Yes [id number] 1mg Take 1 [facility] 1 mg tablet 1-21 tablet by [facility] of 00:00: mouth [place] 00 daily. [facility] vitamin 2-0 Yes [id number] 1000ug Take 1 [facility] B-12 1-21 tablet by [facility] of (VITAMIN 00:00: mouth [place] B-12) 1,000 00 daily. [facility] mcg tablet Branch ferrous 2021-0 Yes [id number] 324mg Take 1 [facility] gluconate 1-21 100 tablet by [facility] o f 324 mg (38 00:00: mouth [place] mg iron) 00 daily with Medic al tablet breakfast. [facility] foLIC acid 2021-0 Yes [id number] 1mg Take 1 [facility] 1 mg tablet 1-21 tablet by [facility] of 00:00: mouth [place] 00 daily. [facility] vitamin 2021-0 Yes [id number] 1000ug Take 1 [facility] B-12 1-21 tablet by [facility] of (VITAMIN 00:00: mouth [place] B-12) 1,000 00 daily. [facility] mcg tablet Branch ferrous 2021-0 Yes [id number] 324mg Take 1 [facility] gluconate 1-21 100 tablet by [facility] o f 324 mg (38 00:00: mouth [place] mg iron) 00 daily with Medic al tablet breakfast. Branch foLIC acid 2021-0 Yes [id number] 1mg Take 1 [facility] 1 mg tablet 1-21 tablet by [facility] of 00:00: mouth [place] 00 daily. [facility] vitamin 2-0 Yes [id number] 1000ug Take 1 [facility] B-12 1-21 tablet by [facility] of (VITAMIN 00:00: mouth [place] B-12) 1,000 00 daily. [facility] mcg tablet Branch ferrous 2-0 Yes [id number] 324mg Take 1 [facility] gluconate 1-21 100 tablet by [facility] o f 324 mg (38 00:00: mouth [place] mg iron) 00 daily with Medic al tablet breakfast. Branch foLIC acid 2-0 Yes [id number] 1mg Take 1 [facility] 1 mg tablet 1-21 tablet by [facility] of 00:00: mouth [place] 00 daily. [facility] vitamin 2-0 Yes [id number] 1000ug Take 1 [facility] B-12 1-21 tablet by [facility] of (VITAMIN 00:00: mouth [place] B-12) 1,000 00 daily. [facility] mcg tablet Branch ferrous 2-0 Yes [id number] 324mg Take 1 [facility] gluconate 1-21 100 tablet by [facility] o f 324 mg (38 00:00: mouth [place] mg iron) 00 daily with Medic al tablet breakfast. Branch foLIC acid 2021-0 Yes [id number] 1mg Take 1 [facility] 1 mg tablet 1-21 tablet by [facility] of 00:00: mouth [place] 00 daily. [facility] vitamin 2-0 Yes [id number] 1000ug Take 1 [facility] B-12 1-21 tablet by [facility] of (VITAMIN 00:00: mouth [place] B-12) 1,000 00 daily. [facility] mcg tablet Branch ferrous 2021-0 Yes [id number] 324mg Take 1 [facility] gluconate 1-21 100 tablet by [facility] o f 324 mg (38 00:00: mouth [place] mg iron) 00 daily with Medic al tablet breakfast. Branch foLIC acid 2021-0 Yes [id number] 1mg Take 1 [facility] 1 mg tablet 1-21 tablet by [facility] of 00:00: mouth [place] 00 daily. [facility] vitamin 2-0 Yes [id number] 1000ug Take 1 [facility] B-12 1-21 tablet by [facility] of (VITAMIN 00:00: mouth [place] B-12) 1,000 00 daily. [facility] mcg tablet Branch ferrous 2021-0 Yes [id number] 324mg Take 1 [facility] gluconate 1-21 100 tablet by [facility] o f 324 mg (38 00:00: mouth [place] mg iron) 00 daily with Medic al tablet breakfast. Branch foLIC acid 2021-0 Yes [id number] 1mg Take 1 [facility] 1 mg tablet 1-21 tablet by [facility] of 00:00: mouth [place] 00 daily. [facility] vitamin 2-0 Yes [id number] 1000ug Take 1 [facility] B-12 1-21 tablet by [facility] of (VITAMIN 00:00: mouth [place] B-12) 1,000 00 daily. [facility] mcg tablet Branch ferrous 2-0 Yes [id number] 324mg Take 1 [facility] gluconate 1-21 100 tablet by [facility] o f 324 mg (38 00:00: mouth [place] mg iron) 00 daily with Medic al tablet breakfast. Branch foLIC acid 2021-0 Yes [id number] 1mg Take 1 [facility] 1 mg tablet 1-21 tablet by [facility] of 00:00: mouth [place] 00 daily. [facility] vitamin 2-0 Yes [id number] 1000ug Take 1 [facility] B-12 1-21 tablet by [facility] of (VITAMIN 00:00: mouth [place] B-12) 1,000 00 daily. [facility] mcg tablet Branch ferrous 2021-0 Yes [id number] 324mg Take 1 [facility] gluconate 1-21 100 tablet by [facility] o f 324 mg (38 00:00: mouth [place] mg iron) 00 daily with Medic al tablet breakfast. [facility] foLIC acid 2021-0 Yes [id number] 1mg Take 1 [facility] 1 mg tablet 1-21 tablet by [facility] of 00:00: mouth [place] 00 daily. [facility] vitamin 2-0 Yes [id number] 1000ug Take 1 [facility] B-12 1-21 tablet by [facility] of (VITAMIN 00:00: mouth [place] B-12) 1,000 00 daily. [facility] mcg tablet Branch ferrous 2021-0 Yes [id number] 324mg Take 1 [facility] gluconate 1-21 100 tablet by [facility] o f 324 mg (38 00:00: mouth [place] mg iron) 00 daily with Medic al tablet breakfast. [facility] foLIC acid 2021-0 Yes [id number] 1mg Take 1 [facility] 1 mg tablet 1-21 tablet by [facility] of 00:00: mouth [place] 00 daily. [facility] vitamin 2-0 Yes [id number] 1000ug Take 1 [facility] B-12 1-21 tablet by [facility] of (VITAMIN 00:00: mouth [place] B-12) 1,000 00 daily. [facility] mcg tablet Branch ferrous 2-0 Yes [id number] 324mg Take 1 [facility] gluconate 1-21 100 tablet by [facility] o f 324 mg (38 00:00: mouth [place] mg iron) 00 daily with Medic al tablet breakfast. Branch foLIC acid 2-0 Yes [id number] 1mg Take 1 [facility] 1 mg tablet 1-21 tablet by [facility] 00:00: mouth [place] 00 daily. [facility] vitamin 2-0 Yes [id number] 1000ug Take 1 [facility] B-12 1-21 tablet by [facility] (VITAMIN 00:00: mouth [place] B-12) 1,000 00 daily. [facility] mcg tablet Branch ferrous 2-0 Yes [id number] 324mg Take 1 [facility] gluconate 1-21 100 tablet by [facility] o f 324 mg (38 00:00: mouth [place] mg iron) 00 daily with Medic al tablet breakfast. Branch foLIC acid 2021-0 Yes [id number] 1mg Take 1 [facility] 1 mg tablet 1-21 tablet by [facility] 00:00: mouth [place] 00 daily. [facility] vitamin 2-0 Yes [id number] 1000ug Take 1 [facility] B-12 1-21 tablet by [facility] (VITAMIN 00:00: mouth [place] B-12) 1,000 00 daily. [facility] mcg tablet Branch ferrous 2-0 Yes [id number] 324mg Take 1 [facility] gluconate 1-21 100 tablet by [facility] o f 324 mg (38 00:00: mouth [place] mg iron) 00 daily with Medic al tablet breakfast. Branch foLIC acid 2021-0 Yes [id number] 1mg Take 1 [facility] 1 mg tablet 1-21 tablet by [facility] 00:00: mouth [place] 00 daily. [facility] vitamin 2-0 Yes [id number] 1000ug Take 1 [facility] B-12 1-21 tablet by [facility] (VITAMIN 00:00: mouth [place] B-12) 1,000 00 daily. [facility] mcg tablet Branch ferrous 2021-0 Yes [id number] 324mg Take 1 [facility] gluconate 1-21 100 tablet by [facility] o f 324 mg (38 00:00: mouth [place] mg iron) 00 daily with Medic al tablet breakfast. Branch foLIC acid 2021-0 Yes [id number] 1mg Take 1 [facility] 1 mg tablet 1-21 tablet by [facility] 00:00: mouth [place] 00 daily. [facility] vitamin 2-0 Yes [id number] 1000ug Take 1 [facility] B-12 1-21 tablet by [facility] (VITAMIN 00:00: mouth [place] B-12) 1,000 00 daily. [facility] mcg tablet [facility] ferrous 2-0 Yes [id number] 324mg Take 1 [facility] gluconate 1-21 100 tablet by [facility] o f 324 mg (38 00:00: mouth [place] mg iron) 00 daily with Medic al tablet breakfast. Branch foLIC acid 2-0 Yes [id number] 1mg Take 1 [facility] 1 mg tablet 1-21 tablet by [facility] 00:00: mouth [place] 00 daily. [facility] vitamin 2-0 Yes [id number] 1000ug Take 1 [facility] B-12 1-21 tablet by [facility] (VITAMIN 00:00: mouth [place] B-12) 1,000 00 daily. [facility] mcg tablet [facility] ferrous 2021-0 Yes [id number] 324mg Take 1 [facility] gluconate 1-21 100 tablet by [facility] o f 324 mg (38 00:00: mouth [place] mg iron) 00 daily with Medic al tablet breakfast. Branch foLIC acid 2021-0 Yes [id number] 1mg Take 1 [facility] 1 mg tablet 1-21 tablet by [facility] 00:00: mouth [place] 00 daily. [facility] vitamin 2021-0 Yes [id number] 1000ug Take 1 [facility] B-12 1-21 tablet by [facility] (VITAMIN 00:00: mouth [place] B-12) 1,000 00 daily. [facility] mcg tablet [facility] ferrous 2021-0 Yes [id number] 324mg Take 1 [facility] gluconate 1-21 100 tablet by [facility] o f 324 mg (38 00:00: mouth [place] mg iron) 00 daily with Medic al tablet breakfast. Branch foLIC acid 2021-0 Yes [id number] 1mg Take 1 [facility] 1 mg tablet 1-21 tablet by [facility] 00:00: mouth [place] 00 daily. [facility] vitamin 2021-0 Yes [id number] 1000ug Take 1 [facility] B-12 1-21 tablet by [facility] (VITAMIN 00:00: mouth [place] B-12) 1,000 00 daily. [facility] mcg tablet [facility] ferrous 2021-0 Yes [id number] 324mg Take 1 [facility] gluconate 1-21 100 tablet by [facility] o f 324 mg (38 00:00: mouth [place] mg iron) 00 daily with Medic al tablet breakfast. Branch foLIC acid 2021-0 Yes [id number] 1mg Take 1 [facility] 1 mg tablet 1-21 tablet by [facility] 00:00: mouth [place] 00 daily. [facility] vitamin 2-0 Yes [id number] 1000ug Take 1 [facility] B-12 1-21 tablet by [facility] (VITAMIN 00:00: mouth [place] B-12) 1,000 00 daily. [facility] mcg tablet Branch ferrous 2-0 Yes [id number] 324mg Take 1 [facility] gluconate 1-21 100 tablet by [facility] o f 324 mg (38 00:00: mouth [place] mg iron) 00 daily with Medic al tablet breakfast. Branch foLIC acid 2021-0 Yes [id number] 1mg Take 1 [facility] 1 mg tablet 1-21 tablet by [facility] 00:00: mouth [place] 00 daily. [facility] vitamin 2021-0 Yes [id number] 1000ug Take 1 [facility] B-12 1-21 tablet by [facility] of (VITAMIN 00:00: mouth [place] B-12) 1,000 00 daily. [facility] mcg tablet Branch ferrous 2021-0 Yes [id number] 324mg Take 1 [facility] gluconate 1-21 100 tablet by [facility] o f 324 mg (38 00:00: mouth [place] mg iron) 00 daily with Medic al tablet breakfast. Branch foLIC acid 2021-0 Yes [id number] 1mg Take 1 [facility] 1 mg tablet 1-21 tablet by [facility] 00:00: mouth [place] 00 daily. [facility] vitamin 2021-0 Yes [id number] 1000ug Take 1 [facility] B-12 1-21 tablet by [facility] (VITAMIN 00:00: mouth [place] B-12) 1,000 00 daily. [facility] mcg tablet [facility] ferrous 2021-0 Yes [id number] 324mg Take 1 [facility] gluconate 1-21 100 tablet by [facility] o f 324 mg (38 00:00: mouth [place] mg iron) 00 daily with Medic al tablet breakfast. Branch foLIC acid 2021-0 Yes [id number] 1mg Take 1 [facility] 1 mg tablet 1-21 tablet by [facility] 00:00: mouth [place] 00 daily. [facility] vitamin 2021-0 Yes [id number] 1000ug Take 1 [facility] B-12 1-21 tablet by [facility] (VITAMIN 00:00: mouth [place] B-12) 1,000 00 daily. [facility] mcg tablet [facility] ferrous 2021-0 Yes [id number] 324mg Take 1 [facility] gluconate 1-21 100 tablet by [facility] o f 324 mg (38 00:00: mouth [place] mg iron) 00 daily with Medic al tablet breakfast. Branch foLIC acid 2021-0 Yes [id number] 1mg Take 1 [facility] 1 mg tablet 1-21 tablet by [facility] of 00:00: mouth [place] 00 daily. [facility] vitamin 2022-0 Yes [id number] 1000ug Take 1 [facility] B-12 1-21 tablet by [facility] of (VITAMIN 00:00: mouth [place] B-12) 1,000 00 daily. [facility] mcg tablet [facility] ferrous 2021-0 Yes [id number] 324mg Take 1 [facility] gluconate 1-21 100 tablet by [facility] o f 324 mg (38 00:00: mouth [place] mg iron) 00 daily with Medic al tablet breakfast. Branch foLIC acid 2021-0 Yes [id number] 1mg Take 1 [facility] 1 mg tablet 1-21 tablet by [facility] 00:00: mouth [place] 00 daily. [facility] vitamin 2021-0 Yes [id number] 1000ug Take 1 [facility] B-12 1-21 tablet by [facility] of (VITAMIN 00:00: mouth [place] B-12) 1,000 00 daily. [facility] mcg tablet [facility] ferrous 2021-0 Yes [id number] 324mg Take 1 [facility] gluconate 1-21 100 tablet by [facility] o f 324 mg (38 00:00: mouth [place] mg iron) 00 daily with Medic al tablet breakfast. Branch foLIC acid 2021-0 Yes [id number] 1mg Take 1 [facility] 1 mg tablet 1-21 tablet by [facility] of 00:00: mouth [place] 00 daily. [facility] vitamin 2021-0 Yes [id number] 1000ug Take 1 [facility] B-12 1-21 tablet by [facility] of (VITAMIN 00:00: mouth [place] B-12) 1,000 00 daily. [facility] mcg tablet Branch ferrous 2021-0 Yes [id number] 324mg Take 1 [facility] gluconate 1-21 100 tablet by [facility] o f 324 mg (38 00:00: mouth [place] mg iron) 00 daily with Medic al tablet breakfast. Branch foLIC acid 2021-0 Yes [id number] 1mg Take 1 [facility] 1 mg tablet 1-21 tablet by [facility] of 00:00: mouth [place] 00 daily. [facility] vitamin 2021-0 Yes [id number] 1000ug Take 1 [facility] B-12 1-21 tablet by [facility] of (VITAMIN 00:00: mouth [place] B-12) 1,000 00 daily. [facility] mcg tablet Branch ferrous 2021-0 Yes [id number] 324mg Take 1 [facility] gluconate 1-21 100 tablet by [facility] o f 324 mg (38 00:00: mouth [place] mg iron) 00 daily with Medic al tablet breakfast. Branch foLIC acid 2021-0 Yes [id number] 1mg Take 1 [facility] 1 mg tablet 1-21 tablet by [facility] of 00:00: mouth [place] 00 daily. [facility] vitamin 2021-0 Yes [id number] 1000ug Take 1 [facility] B-12 1-21 tablet by [facility] of (VITAMIN 00:00: mouth [place] B-12) 1,000 00 daily. [facility] mcg tablet Branch ferrous 2021-0 Yes [id number] 324mg Take 1 [facility] gluconate 1-21 100 tablet by [facility] o f 324 mg (38 00:00: mouth [place] mg iron) 00 daily with Medic al tablet breakfast. Branch foLIC acid 2021-0 Yes [id number] 1mg Take 1 [facility] 1 mg tablet 1-21 tablet by [facility] 00:00: mouth [place] 00 daily. [facility] vitamin 2021-0 Yes [id number] 1000ug Take 1 [facility] B-12 1-21 tablet by [facility] (VITAMIN 00:00: mouth [place] B-12) 1,000 00 daily. [facility] mcg tablet Branch foLIC acid 2021-0 Yes [id number] 1mg Take 1 [facility] 1 mg tablet 1-21 tablet by [facility] 00:00: mouth [place] 00 daily. [facility] vitamin 2-0 Yes [id number] 1000ug Take 1 [facility] B-12 1-21 tablet by [facility] of (VITAMIN 00:00: mouth [place] B-12) 1,000 00 daily. [facility] mcg tablet Branch foLIC acid 2021-0 Yes [id number] 1mg Take 1 [facility] 1 mg tablet 1-21 tablet by [facility] 00:00: mouth [place] 00 daily. [facility] vitamin 2-0 Yes [id number] 1000ug Take 1 [facility] B-12 1-21 tablet by [facility] (VITAMIN 00:00: mouth [place] B-12) 1,000 00 daily. [facility] mcg tablet Branch foLIC acid 2-0 Yes [id number] 1mg Take 1 [facility] 1 mg tablet 1-21 tablet by [facility] of 00:00: mouth [place] 00 daily. [facility] vitamin 2-0 Yes [id number] 1000ug Take 1 [facility] B-12 1-21 tablet by [facility] (VITAMIN 00:00: mouth [place] B-12) 1,000 00 daily. [facility] mcg tablet Branch foLIC acid 2021-0 Yes [id number] 1mg Take 1 [facility] 1 mg tablet 1-21 tablet by [facility] of 00:00: mouth [place] 00 daily. [facility] vitamin 2-0 Yes [id number] 1000ug Take 1 [facility] B-12 1-21 tablet by [facility] (VITAMIN 00:00: mouth [place] B-12) 1,000 00 daily. [facility] mcg tablet Branch foLIC acid 2021-0 Yes [id number] 1mg Take 1 [facility] 1 mg tablet 1-21 tablet by [facility] of 00:00: mouth [place] 00 daily. [facility] vitamin 2-0 Yes [id number] 1000ug Take 1 [facility] B-12 1-21 tablet by [facility] of (VITAMIN 00:00: mouth [place] B-12) 1,000 00 daily. [facility] mcg tablet Branch foLIC acid 2021-0 Yes [id number] 1mg Take 1 [facility] 1 mg tablet 1-21 tablet by [facility] of 00:00: mouth [place] 00 daily. [facility] vitamin 2021-0 Yes [id number] 1000ug Take 1 [facility] B-12 1-21 tablet by [facility] (VITAMIN 00:00: mouth [place] B-12) 1,000 00 daily. [facility] mcg tablet Branch foLIC acid 2021-0 Yes [id number] 1mg Take 1 [facility] 1 mg tablet 1-21 tablet by [facility] of 00:00: mouth [place] 00 daily. [facility] vitamin 2-0 Yes [id number] 1000ug Take 1 [facility] B-12 1-21 tablet by [facility] of (VITAMIN 00:00: mouth [place] B-12) 1,000 00 daily. [facility] mcg tablet Branch foLIC acid 2021-0 Yes [id number] 1mg Take 1 [facility] 1 mg tablet 1-21 tablet by [facility] of 00:00: mouth [place] 00 daily. [facility] vitamin 2-0 Yes [id number] 1000ug Take 1 [facility] B-12 1-21 tablet by [facility] of (VITAMIN 00:00: mouth [place] B-12) 1,000 00 daily. [facility] mcg tablet Branch foLIC acid 2-0 Yes [id number] 1mg Take 1 [facility] 1 mg tablet 1-21 tablet by [facility] of 00:00: mouth [place] 00 daily. [facility] vitamin 2-0 Yes [id number] 1000ug Take 1 [facility] B-12 1-21 tablet by [facility] of (VITAMIN 00:00: mouth [place] B-12) 1,000 00 daily. [facility] mcg tablet Branch foLIC acid 2021-0 Yes [id number] 1mg Take 1 [facility] 1 mg tablet 1-21 tablet by [facility] of 00:00: mouth [place] 00 daily. [facility] vitamin 2-0 Yes [id number] 1000ug Take 1 [facility] B-12 1-21 tablet by [facility] of (VITAMIN 00:00: mouth [place] B-12) 1,000 00 daily. [facility] mcg tablet Branch foLIC acid 2021-0 Yes [id number] 1mg Take 1 [facility] 1 mg tablet 1-21 tablet by [facility] of 00:00: mouth [place] 00 daily. [facility] vitamin 2021-0 Yes [id number] 1000ug Take 1 [facility] B-12 1-21 tablet by [facility] of (VITAMIN 00:00: mouth [place] B-12) 1,000 00 daily. [facility] mcg tablet Branch foLIC acid 2021-0 Yes [id number] 1mg Take 1 [facility] 1 mg tablet 1-21 tablet by [facility] of 00:00: mouth [place] 00 daily. [facility] vitamin 2021-0 Yes [id number] 1000ug Take 1 [facility] B-12 1-21 tablet by [facility] of (VITAMIN 00:00: mouth [place] B-12) 1,000 00 daily. [facility] mcg tablet Branch foLIC acid 2021-0 Yes [id number] 1mg Take 1 [facility] 1 mg tablet 1-21 tablet by [facility] of 00:00: mouth [place] 00 daily. [facility] vitamin 2-0 Yes [id number] 1000ug Take 1 [facility] B-12 1-21 tablet by [facility] of (VITAMIN 00:00: mouth [place] B-12) 1,000 00 daily. [facility] mcg tablet Branch foLIC acid 2021-0 Yes [id number] 1mg Take 1 [facility] 1 mg tablet 1-21 tablet by [facility] of 00:00: mouth [place] 00 daily. [facility] vitamin 2-0 Yes [id number] 1000ug Take 1 [facility] B-12 1-21 tablet by [facility] of (VITAMIN 00:00: mouth [place] B-12) 1,000 00 daily. [facility] mcg tablet Branch foLIC acid 2021-0 Yes [id number] 1mg Take 1 [facility] 1 mg tablet 1-21 tablet by [facility] of 00:00: mouth [place] 00 daily. [facility] vitamin 2-0 Yes [id number] 1000ug Take 1 [facility] B-12 1-21 tablet by [facility] of (VITAMIN 00:00: mouth [place] B-12) 1,000 00 daily. [facility] mcg tablet Branch foLIC acid 2021-0 Yes [id number] 1mg Take 1 [facility] 1 mg tablet 1-21 tablet by [facility] of 00:00: mouth [place] 00 daily. [facility] vitamin 2-0 Yes [id number] 1000ug Take 1 [facility] B-12 1-21 tablet by [facility] of (VITAMIN 00:00: mouth [place] B-12) 1,000 00 daily. [facility] mcg tablet Branch foLIC acid 2021-0 Yes [id number] 1mg Take 1 [facility] 1 mg tablet 1-21 tablet by [facility] of 00:00: mouth [place] 00 daily. [facility] vitamin 2-0 Yes [id number] 1000ug Take 1 [facility] B-12 1-21 tablet by [facility] of (VITAMIN 00:00: mouth [place] B-12) 1,000 00 daily. [facility] mcg tablet Branch foLIC acid 2021-0 Yes [id number] 1mg Take 1 [facility] 1 mg tablet 1-21 tablet by [facility] of 00:00: mouth [place] 00 daily. [facility] vitamin 2-0 Yes [id number] 1000ug Take 1 [facility] B-12 1-21 tablet by [facility] of (VITAMIN 00:00: mouth [place] B-12) 1,000 00 daily. [facility] mcg tablet Branch vitamin 2-0 Yes [id number] 1000ug Take 1 [facility] B-12 1-21 tablet by [facility] of (VITAMIN 00:00: mouth [place] B-12) 1,000 00 daily. [facility] mcg tablet Branch vitamin 2-0 Yes [id number] 1000ug Take 1 [facility] B-12 1-21 tablet by [facility] of (VITAMIN 00:00: mouth [place] B-12) 1,000 00 daily. [facility] mcg tablet Branch vitamin 2-0 Yes [id number] 1000ug Take 1 [facility] B-12 1-21 tablet by [facility] of (VITAMIN 00:00: mouth [place] B-12) 1,000 00 daily. [facility] mcg tablet Branch vitamin 2022-0 Yes [id number] 1000ug Take 1 [facility] B-12 1-21 tablet by [facility] of (VITAMIN 00:00: mouth [place] B-12) 1,000 00 daily. [facility] l mcg tablet Branch vitamin 2022-0 Yes [id number] 1000ug Take 1 [facility] B-12 1-21 tablet by [facility] of (VITAMIN 00:00: mouth [place] B-12) 1,000 00 daily. [facility]ica l mcg tablet Branch vitamin 2022-0 Yes [id number] 1000ug Take 1 [facility] B-12 1-21 tablet by [facility] of (VITAMIN 00:00: mouth [place] B-12) 1,000 00 daily. [facility] mcg tablet Branch vitamin 2022-0 Yes [id number] 1000ug Take 1 [facility] B-12 1-21 tablet by [facility] of (VITAMIN 00:00: mouth [place] B-12) 1,000 00 daily. [facility] mcg tablet Branch vitamin 2022-0 Yes [id number] 1000ug Take 1 [facility] B-12 1-21 tablet by [facility] of (VITAMIN 00:00: mouth [place] B-12) 1,000 00 daily. [facility] mcg tablet Branch vitamin 2022-0 Yes [id number] 1000ug Take 1 [facility] B-12 1-21 tablet by [facility] of (VITAMIN 00:00: mouth [place] B-12) 1,000 00 daily. [facility] mcg tablet Branch vitamin 2022-0 Yes [id number] 1000ug Take 1 [facility] B-12 1-21 tablet by [facility] of (VITAMIN 00:00: mouth [place] B-12) 1,000 00 daily. [facility]ica l mcg tablet Branch vitamin 2022-0 Yes [id number] 1000ug Take 1 [facility] B-12 1-21 tablet by [facility] of (VITAMIN 00:00: mouth [place] B-12) 1,000 00 daily. [facility] l mcg tablet Branch vitamin 2022-0 Yes [id number] 1000ug Take 1 [facility] B-12 1-21 tablet by [facility] of (VITAMIN 00:00: mouth [place] B-12) 1,000 00 daily. [facility] mcg tablet Branch vitamin 2022-0 Yes [id number] 1000ug Take 1 [facility] B-12 1-21 tablet by [facility] of (VITAMIN 00:00: mouth [place] B-12) 1,000 00 daily. [facility] mcg tablet Branch vitamin 2022-0 Yes [id number] 1000ug Take 1 [facility] B-12 1-21 tablet by [facility] of (VITAMIN 00:00: mouth [place] B-12) 1,000 00 daily. [facility] mcg tablet Branch vitamin 2022-0 Yes [id number] 1000ug Take 1 [facility] B-12 1-21 tablet by [facility] of (VITAMIN 00:00: mouth [place] B-12) 1,000 00 daily. [facility] mcg tablet Branch vitamin 2022-0 Yes [id number] 1000ug Take 1 [facility] B-12 1-21 tablet by [facility] of (VITAMIN 00:00: mouth [place] B-12) 1,000 00 daily. [facility] mcg tablet Branch vitamin 2022-0 Yes [id number] 1000ug Take 1 [facility] B-12 1-21 tablet by [facility] of (VITAMIN 00:00: mouth [place] B-12) 1,000 00 daily. [facility] mcg tablet Branch vitamin 2022-0 Yes [id number] 1000ug Take 1 [facility] B-12 1-21 tablet by [facility] of (VITAMIN 00:00: mouth [place] B-12) 1,000 00 daily. [facility] mcg tablet Branch vitamin 2022-0 Yes [id number] 1000ug Take 1 [facility] B-12 1-21 tablet by [facility] of (VITAMIN 00:00: mouth [place] B-12) 1,000 00 daily. [facility] mcg tablet Branch vitamin 2022-0 Yes [id number] 1000ug Take 1 [facility] B-12 1-21 tablet by [facility] of (VITAMIN 00:00: mouth [place] B-12) 1,000 00 daily. [facility] mcg tablet Branch vitamin 2022-0 Yes [id number] 1000ug Take 1 [facility] B-12 1-21 tablet by [facility] of (VITAMIN 00:00: mouth [place] B-12) 1,000 00 daily. [facility] mcg tablet Branch vitamin 2022-0 Yes [id number] 1000ug Take 1 [facility] B-12 1-21 tablet by [facility] of (VITAMIN 00:00: mouth [place] B-12) 1,000 00 daily. [facility] mcg tablet Branch vitamin 2022-0 Yes [id number] 1000ug Take 1 [facility] B-12 1-21 tablet by [facility] of (VITAMIN 00:00: mouth [place] B-12) 1,000 00 daily. [facility] mcg tablet Branch vitamin 2022-0 Yes [id number] 1000ug Take 1 [facility] B-12 1-21 tablet by [facility] of (VITAMIN 00:00: mouth [place] B-12) 1,000 00 daily. [facility] mcg tablet Branch vitamin 2022-0 Yes [id number] 1000ug Take 1 [facility] B-12 1-21 tablet by [facility] of (VITAMIN 00:00: mouth [place] B-12) 1,000 00 daily. [facility] mcg tablet Branch vitamin 2022-0 Yes [id number] 1000ug Take 1 [facility] B-12 1-21 tablet by [facility] of (VITAMIN 00:00: mouth [place] B-12) 1,000 00 daily. [facility] mcg tablet Branch vitamin 2022-0 Yes [id number] 1000ug Take 1 [facility] B-12 1-21 tablet by [facility] of (VITAMIN 00:00: mouth [place] B-12) 1,000 00 daily. [facility] mcg tablet Branch vitamin 2022-0 Yes [id number] 1000ug Take 1 [facility] B-12 1-21 tablet by [facility] of (VITAMIN 00:00: mouth [place] B-12) 1,000 00 daily. [facility] mcg tablet Branch vitamin 2022-0 Yes [id number] 1000ug Take 1 [facility] B-12 1-21 tablet by [facility] of (VITAMIN 00:00: mouth [place] B-12) 1,000 00 daily. [facility] mcg tablet Branch vitamin 2022-0 Yes [id number] 1000ug Take 1 [facility] B-12 1-21 tablet by [facility] of (VITAMIN 00:00: mouth [place] B-12) 1,000 00 daily. [facility] mcg tablet Branch vitamin 2022-0 Yes [id number] 1000ug Take 1 [facility] B-12 1-21 tablet by [facility] of (VITAMIN 00:00: mouth [place] B-12) 1,000 00 daily. [facility] mcg tablet Branch vitamin 2022-0 Yes [id number] 1000ug Take 1 [facility] B-12 1-21 tablet by [facility] of (VITAMIN 00:00: mouth [place] B-12) 1,000 00 daily. [facility] mcg tablet Branch vitamin 2022-0 Yes [id number] 1000ug Take 1 [facility] B-12 1-21 tablet by [facility] of (VITAMIN 00:00: mouth [place] B-12) 1,000 00 daily. [facility] mcg tablet Branch vitamin 2022-0 Yes [id number] 1000ug Take 1 [facility] B-12 1-21 tablet by [facility] of (VITAMIN 00:00: mouth [place] B-12) 1,000 00 daily. [facility] mcg tablet Branch vitamin 2022-0 Yes [id number] 1000ug Take 1 [facility] B-12 1-21 tablet by [facility] of (VITAMIN 00:00: mouth [place] B-12) 1,000 00 daily. [facility] mcg tablet Branch vitamin 2022-0 Yes [id number] 1000ug Take 1 [facility] B-12 1-21 tablet by [facility] of (VITAMIN 00:00: mouth [place] B-12) 1,000 00 daily. [facility] mcg tablet Branch vitamin 2022-0 Yes [id number] 1000ug Take 1 [facility] B-12 1-21 tablet by [facility] of (VITAMIN 00:00: mouth [place] B-12) 1,000 00 daily. [facility] mcg tablet Branch vitamin 2022-0 Yes [id number] 1000ug Take 1 [facility] B-12 1-21 tablet by [facility] of (VITAMIN 00:00: mouth [place] B-12) 1,000 00 daily. [facility] mcg tablet Branch vitamin 2022-0 Yes [id number] 1000ug Take 1 [facility] B-12 1-21 tablet by [facility] of (VITAMIN 00:00: mouth [place] B-12) 1,000 00 daily. [facility] mcg tablet Branch vitamin 2022-0 Yes [id number] 1000ug Take 1 [facility] B-12 1-21 tablet by [facility] of (VITAMIN 00:00: mouth [place] B-12) 1,000 00 daily. [facility] mcg tablet Branch vitamin 2022-0 Yes [id number] 1000ug Take 1 [facility] B-12 1-21 tablet by [facility] of (VITAMIN 00:00: mouth [place] B-12) 1,000 00 daily. [facility] mcg tablet Branch vitamin 2022-0 Yes [id number] 1000ug Take 1 [facility] B-12 1-21 tablet by [facility] of (VITAMIN 00:00: mouth [place] B-12) 1,000 00 daily. [facility] mcg tablet Branch vitamin 2022-0 Yes [id number] 1000ug Take 1 [facility] B-12 1-21 tablet by [facility] of (VITAMIN 00:00: mouth [place] B-12) 1,000 00 daily. [facility] mcg tablet Branch vitamin 2022-0 Yes [id number] 1000ug Take 1 [facility] B-12 1-21 tablet by [facility] of (VITAMIN 00:00: mouth [place] B-12) 1,000 00 daily. [facility] mcg tablet Branch vitamin 2022-0 Yes [id number] 1000ug Take 1 [facility] B-12 1-21 tablet by [facility] of (VITAMIN 00:00: mouth [place] B-12) 1,000 00 daily. [facility] mcg tablet Branch vitamin 2022-0 Yes [id number] 1000ug Take 1 [facility] B-12 1-21 tablet by [facility] of (VITAMIN 00:00: mouth [place] B-12) 1,000 00 daily. [facility] mcg tablet Branch vitamin 2022-0 Yes [id number] 1000ug Take 1 [facility] B-12 1-21 tablet by [facility] of (VITAMIN 00:00: mouth [place] B-12) 1,000 00 daily. [facility] l mcg tablet Branch vitamin 2022-0 Yes [id number] 1000ug Take 1 [facility] B-12 1-21 tablet by [facility] of (VITAMIN 00:00: mouth [place] B-12) 1,000 00 daily. [facility] mcg tablet Branch vitamin 2022-0 Yes [id number] 1000ug Take 1 [facility] B-12 1-21 tablet by [facility] of (VITAMIN 00:00: mouth [place] B-12) 1,000 00 daily. [facility] mcg tablet Branch vitamin 2022-0 Yes [id number] 1000ug Take 1 [facility] B-12 1-21 tablet by [facility] of (VITAMIN 00:00: mouth [place] B-12) 1,000 00 daily. [facility] mcg tablet Branch vitamin 2022-0 Yes [id number] 1000ug Take 1 [facility] B-12 1-21 tablet by [facility] of (VITAMIN 00:00: mouth [place] B-12) 1,000 00 daily. [facility] mcg tablet Branch vitamin 2022-0 Yes [id number] 1000ug Take 1 [facility]ivers B-12 1-21 tablet by [facility] of (VITAMIN 00:00: mouth [place] B-12) 1,000 00 daily. [facility] mcg tablet Branch vitamin 2022-0 Yes [id number] 1000ug Take 1 [facility] B-12 1-21 tablet by [facility] of (VITAMIN 00:00: mouth [place] B-12) 1,000 00 daily. [facility] mcg tablet Branch vitamin 2022-0 Yes [id number] 1000ug Take 1 [facility] B-12 1-21 tablet by [facility] of (VITAMIN 00:00: mouth [place] B-12) 1,000 00 daily. [facility] mcg tablet Branch vitamin 2022-0 Yes [id number] 1000ug Take 1 [facility] B-12 1-21 tablet by [facility] of (VITAMIN 00:00: mouth [place] B-12) 1,000 00 daily. [facility] mcg tablet Branch vitamin 2022-0 Yes [id number] 1000ug Take 1 [facility] B-12 1-21 tablet by [facility] of (VITAMIN 00:00: mouth [place] B-12) 1,000 00 daily. [facility] l mcg tablet Branch vitamin 2022-0 Yes [id number] 1000ug Take 1 [facility] B-12 1-21 tablet by [facility] of (VITAMIN 00:00: mouth [place] B-12) 1,000 00 daily. [facility] mcg tablet Branch vitamin 2022-0 Yes [id number] 1000ug Take 1 [facility] B-12 1-21 tablet by [facility] of (VITAMIN 00:00: mouth [place] B-12) 1,000 00 daily. [facility] l mcg tablet Branch vitamin 2022-0 Yes [id number] 1000ug Take 1 [facility] B-12 1-21 tablet by [facility] of (VITAMIN 00:00: mouth [place] B-12) 1,000 00 daily. [facility] l mcg tablet Branch vitamin 2022-0 Yes [id number] 1000ug Take 1 [facility] B-12 1-21 tablet by [facility] of (VITAMIN 00:00: mouth [place] B-12) 1,000 00 daily. Med[facility] l mcg tablet Branch vitamin 2022-0 Yes [id number] 1000ug Take 1 [facility] B-12 1-21 tablet by it[facility] of (VITAMIN 00:00: mouth [place] B-12) 1,000 00 daily. [facility] l mcg tablet Branch vitamin 2021-0 Yes [id number] 1000ug Take 1 [facility] B-12 1-21 tablet by [facility]y of (VITAMIN 00:00: mouth [place] B-12) 1,000 00 daily. [facility] l mcg tablet Branch vitamin 0 Yes [id number] 1000ug Take 1 [facility] B-12 1-21 tablet by it[facility] of (VITAMIN 00:00: mouth [place] B-12) 1,000 00 daily. Med[facility] l mcg tablet Branch vitamin 2021-0 Yes [id number] 1000ug Take 1 [facility] B-12 1-21 tablet by [facility] of (VITAMIN 00:00: mouth [place] B-12) 1,000 00 daily. Medica l mcg tablet Branch foLIC acid 2022- No [id number] 1mg Take 1 [facility] 1 mg tablet 09-1818 tablet by it y of 00:00: 00:00 mouth [place] 00 :00 daily. Medical Branch foLIC acid 2022- No [id number] 1mg Take 1 [facility] 1 mg tablet 09-1818 tablet by it y of 00:00: 00:00 mouth [place] 00 :00 daily. [facility] Branch foLIC acid 2022- No [id number] 1mg Take 1 [facility] 1 mg tablet 09-1818 tablet by it y of 00:00: 00:00 mouth [place] 00 :00 daily. Medical Branch ferrous 2021-2021- No [id number] 324mg Take 1 [facility] gluconate 09-18 100 tablet by ity of 324 mg (38 00:00: 00:00 mouth [place] mg iron) 00 :00 daily with Medic al tablet breakfast. Branch ferrous 2021-2021- No [id number] 324mg Take 1 [facility] gluconate 09-18 100 tablet by ity of 324 mg (38 00:00: 00:00 mouth [place] mg iron) 00 :00 daily with Medic al tablet breakfast. Branch ferrous 2021-2021- No [id number] 324mg Take 1 [facility] gluconate 09-18 100 tablet by ity of 324 mg (38 00:00: 00:00 mouth [place] mg iron) 00 :00 daily with Medic al tablet breakfast. Branch ferrous 2021- No [id number] 324mg Take 1 [facility] gluconate 1-21 12- 100 tablet by ity of 324 mg (38 00:00: 00:00 mouth [place] mg iron) 00 :00 daily with Medic al tablet breakfast. Branch chlorthalid 2021- No [id number] 25mg Take 1 [facility] one 25 mg 1-21 10-04 tablet by ity of tablet 00:00: 00:00 mouth [place] 00 :00 daily. [facility] Branch chlorthalid 2021- No [id number] 25mg Take 1 [facility] 25 mg 1-21 10-04 tablet by ity of tablet 00:00: 00:00 mouth [place] 00 :00 daily. [facility] chlorthalid 2021- No [id number] 25mg Take 1 [facility] one 25 mg 1-21 10-04 tablet by ity of tablet 00:00: 00:00 mouth [place] 00 :00 daily. [facility] chlorthalid 2021- No [id number] 25mg Take 1 [facility] one 25 mg 1-21 10-04 tablet by ity of tablet 00:00: 00:00 mouth [place] 00 :00 daily. [facility] chlorthalid 2021- No [id number] 25mg Take 1 [facility] one 25 mg 1-21 10-04 tablet by ity of tablet 00:00: 00:00 mouth [place] 00 :00 daily. [facility] chlorthalid 2021- No [id number] 25mg Take 1 [facility] one 25 mg 1-21 10-04 tablet by ity of tablet 00:00: 00:00 mouth [place] 00 :00 daily. [facility] Immunizations Ordered Filled Immunization Date Status Comments [facility] e Immunization Name Name SARS-COV-2 COVID-2022-05-14 Completed Unive rsity of VACCINE, BIVALENT 00:00:00 [facility] edical (MODERNA BOOSTER) Branch SARS-COV-2 COVID-19 2022-05-14 Completed Unive rsity of VACCINE, BIVALENT 00:00:00 [facility] edical (MODERNA BOOSTER) [place] SARS-COV-2 COVID-19 2022-05-14 Completed Unive rsity of VACCINE, BIVALENT 00:00:00 [facility] edical (MODERNA BOOSTER) Branch SARS-COV-2 COVID-19 2022-05-14 Completed Unive rsity of VACCINE, BIVALENT 00:00:00 [place] [facility] ed[facility] (MODERNA BOOSTER) Branch SARS-COV-2 COVID-19 2022-05-14 Completed Unive rsity of VACCINE, BIVALENT 00:00:00 [place] [facility] (MODERNA BOOSTER) Branch SARS-COV-2 COVID-19 2022-05-14 Completed Unive rsity of VACCINE, BIVALENT 00:00:00 [place] [facility] (MODERNA BOOSTER) Branch SARS-COV-2 COVID-19 2022-05-14 Completed Unive rsity of VACCINE, BIVALENT 00:00:00 [place] [facility] (MODERNA BOOSTER) Branch SARS-COV-2 COVID-19 2022-05-14 Completed Unive rsity of VACCINE, BIVALENT 00:00:00 [place] [facility] (MODERNA BOOSTER) Branch SARS-COV-2 COVID-19 2022-05-14 Completed Unive rsity of VACCINE, BIVALENT 00:00:00 [place] edical (MODERNA BOOSTER) Branch SARS-COV-2 COVID-19 2022-05-14 Completed Unive rsity of VACCINE, BIVALENT 00:00:00 [place] [facility] (MODERNA BOOSTER) Branch SARS-COV-2 COVID-19 2022-05-14 Completed [facility]ive rsity of VACCINE, BIVALENT 00:00:00 [place] [facility] (MODERNA BOOSTER) Branch SARS-COV-2 COVID-19 2022-05-14 Completed Unive rsity of VACCINE, BIVALENT 00:00:00 [place] [facility] (MODERNA BOOSTER) Branch SARS-COV-2 COVID-19 2022-05-14 Completed Unive rsity of VACCINE, BIVALENT 00:00:00 [place] [facility] (MODERNA BOOSTER) Branch SARS-COV-2 COVID-19 2022-05-14 Completed Unive rsity of VACCINE, BIVALENT 00:00:00 [place] [facility] (MODERNA BOOSTER) Branch SARS-COV-2 COVID-19 2022-05-14 Completed Unive rsity of VACCINE, BIVALENT 00:00:00 [place] [facility] (MODERNA BOOSTER) Branch SARS-COV-2 COVID-19 2022-05-14 Completed Unive rsity of VACCINE, BIVALENT 00:00:00 [place] [facility] (MODERNA BOOSTER) Branch SARS-COV-2 COVID-19 2022-05-14 Completed Unive rsity of VACCINE, BIVALENT 00:00:00 [place] edical (MODERNA BOOSTER) Branch SARS-COV-2 COVID-19 2022-05-14 Completed Unive rsity of VACCINE, BIVALENT 00:00:00 [place] edical (MODERNA BOOSTER) Branch SARS-COV-2 COVID-19 2022-05-14 Completed Unive rsity of VACCINE, BIVALENT 00:00:00 [place] edical (MODERNA BOOSTER) Branch SARS-COV-2 COVID-19 2022-05-14 Completed Unive rsity of VACCINE, BIVALENT 00:00:00 [place] edical (MODERNA BOOSTER) Branch SARS-COV-2 COVID-19 2022-05-14 Completed Unive rsity of VACCINE, BIVALENT 00:00:00 [place] edical (MODERNA BOOSTER) Branch SARS-COV-2 COVID-19 2022-05-14 Completed Unive rsity of VACCINE, BIVALENT 00:00:00 [place] edical (MODERNA BOOSTER) Branch SARS-COV-2 COVID-19 2022-05-14 Completed Unive rsity of VACCINE, BIVALENT 00:00:00 [place] edical (MODERNA BOOSTER) Branch SARS-COV-2 COVID-19 2022-05-14 Completed Unive rsity of VACCINE, BIVALENT 00:00:00 [place] edical (MODERNA BOOSTER) Branch SARS-COV-2 COVID-19 2022-05-14 Completed Unive rsity of VACCINE, BIVALENT 00:00:00 [place] edical (MODERNA BOOSTER) Branch SARS-COV-2 COVID-19 2022-05-14 Completed Unive rsity of VACCINE, BIVALENT 00:00:00 [place] edical (MODERNA BOOSTER) Branch SARS-COV-2 COVID-19 2022-05-14 Completed Unive rsity of VACCINE, BIVALENT 00:00:00 [place] edical (MODERNA BOOSTER) Branch SARS-COV-2 COVID-19 2022-05-14 Completed Unive rsity of VACCINE, BIVALENT 00:00:00 [place] edical (MODERNA BOOSTER) Branch SARS-COV-2 COVID-19 2022-05-14 Completed Unive rsity of VACCINE, BIVALENT 00:00:00 [place] [facility] edical (MODERNA BOOSTER) Branch SARS-COV-2 COVID-19 2022-05-14 Completed Unive rsity of VACCINE, BIVALENT 00:00:00 [place] [facility] ed[facility] (MODERNA BOOSTER) Branch SARS-COV-2 COVID-19 2022-05-14 Completed Unive rsity of VACCINE, BIVALENT 00:00:00 [place] [facility] ed[facility] (MODERNA BOOSTER) Branch SARS-COV-2 COVID-19 2022-05-14 Completed Unive rsity of VACCINE, BIVALENT 00:00:00 [place] [facility] ed[facility] (MODERNA BOOSTER) Branch SARS-COV-2 COVID-19 2022-05-14 Completed Unive rsity of VACCINE, BIVALENT 00:00:00 [place] [facility] ed[facility] (MODERNA BOOSTER) Branch SARS-COV-2 COVID-19 2022-05-14 Completed Unive rsity of VACCINE, BIVALENT 00:00:00 [place] [facility] ed[facility] (MODERNA BOOSTER) Branch SARS-COV-2 COVID-19 2022-05-14 Completed Unive rsity of VACCINE, BIVALENT 00:00:00 [place] [facility] ed[facility] (MODERNA BOOSTER) Branch SARS-COV-2 COVID-19 2022-05-14 Completed Unive rsity of VACCINE, BIVALENT 00:00:00 [place] [facility] ed[facility] (MODERNA BOOSTER) Branch SARS-COV-2 COVID-19 2022-05-14 Completed Unive rsity of VACCINE, BIVALENT 00:00:00 [place] [facility] ed[facility] (MODERNA BOOSTER) Branch SARS-COV-2 COVID-19 2022-05-14 Completed Unive rsity of VACCINE, BIVALENT 00:00:00 [place] [facility] (MODERNA BOOSTER) Branch SARS-COV-2 COVID-19 2022-05-14 Completed Unive rsity of VACCINE, BIVALENT 00:00:00 [place] [facility] ed[facility] (MODERNA BOOSTER) Branch SARS-COV-2 COVID-19 2022-05-14 Completed Unive rsity of VACCINE, BIVALENT 00:00:00 [place] [facility] ed[facility] (MODERNA BOOSTER) Branch SARS-COV-2 COVID-19 2022-05-14 Completed Unive rsity of VACCINE, BIVALENT 00:00:00 [place] [facility] ed[facility] (MODERNA BOOSTER) Branch SARS-COV-2 COVID-19 2022-05-14 Completed Unive rsity of VACCINE, BIVALENT 00:00:00 [place] [facility] ed[facility] (MODERNA BOOSTER) Branch SARS-COV-2 COVID-19 2022-05-14 Completed Unive rsity of VACCINE, BIVALENT 00:00:00 [place] [facility] (MODERNA BOOSTER) Branch SARS-COV-2 COVID-19 2022-05-14 Completed Unive rsity of VACCINE, BIVALENT 00:00:00 [place] [facility] (MODERNA BOOSTER) Branch SARS-COV-2 COVID-19 2022-05-14 Completed Unive rsity of VACCINE, BIVALENT 00:00:00 [place] [facility] (MODERNA BOOSTER) Branch SARS-COV-2 COVID-19 2022-05-14 Completed Unive rsity of VACCINE, BIVALENT 00:00:00 [place] [facility] ed[facility] (MODERNA BOOSTER) Branch SARS-COV-2 COVID-19 2022-05-14 Completed Unive rsity of VACCINE, BIVALENT 00:00:00 [place] [facility] ed[facility] (MODERNA BOOSTER) Branch SARS-COV-2 COVID-19 2022-05-14 Completed Unive rsity of VACCINE, BIVALENT 00:00:00 [place] [facility] ed[facility] (MODERNA BOOSTER) Branch SARS-COV-2 COVID-19 2022-05-14 Completed Unive rsity of VACCINE, BIVALENT 00:00:00 [place] [facility] ed[facility] (MODERNA BOOSTER) Branch SARS-COV-2 COVID-19 2022-05-14 Completed Unive rsity of VACCINE, BIVALENT 00:00:00 [place] [facility] edical (MODERNA BOOSTER) Branch SARS-COV-2 COVID-19 2022-05-14 Completed Unive rsity of VACCINE, BIVALENT 00:00:00 [place] [facility] edical (MODERNA BOOSTER) Branch SARS-COV-2 COVID-19 2022-05-14 Completed Unive rsity of VACCINE, BIVALENT 00:00:00 [place] [facility] ed[facility] (MODERNA BOOSTER) Branch SARS-COV-2 COVID-19 2022-05-14 Completed Unive rsity of VACCINE, BIVALENT 00:00:00 [place] [facility] ed[facility] (MODERNA BOOSTER) Branch SARS-COV-2 COVID-19 2022-05-14 Completed Unive rsity of VACCINE, BIVALENT 00:00:00 [place] [facility] (MODERNA BOOSTER) Branch SARS-COV-2 COVID-19 2022-05-14 Completed Unive rsity of VACCINE, BIVALENT 00:00:00 [place] [facility] ed[facility] (MODERNA BOOSTER) Branch SARS-COV-2 COVID-19 2022-05-14 Completed Unive rsity of VACCINE, BIVALENT 00:00:00 [place] [facility] edical (MODERNA BOOSTER) Branch SARS-COV-2 COVID-19 2022-05-14 Completed Unive rsity of VACCINE, BIVALENT 00:00:00 [place] [facility] ed[facility] (MODERNA BOOSTER) Branch SARS-COV-2 COVID-19 2022-05-14 Completed Unive rsity of VACCINE, BIVALENT 00:00:00 [place] [facility] ed[facility] (MODERNA BOOSTER) Branch SARS-COV-2 COVID-19 2022-05-14 Completed Unive rsity of VACCINE, BIVALENT 00:00:00 [place] [facility] ed[facility] (MODERNA BOOSTER) Branch SARS-COV-2 COVID-19 2022-05-14 Completed Unive rsity of VACCINE, BIVALENT 00:00:00 [place] [facility] ed[facility] (MODERNA BOOSTER) Branch SARS-COV-2 COVID-19 2022-05-14 Completed Unive rsity of VACCINE, BIVALENT 00:00:00 [place] [facility] edical (MODERNA BOOSTER) Branch SARS-COV-2 COVID-19 2022-05-14 Completed Unive rsity of VACCINE, BIVALENT 00:00:00 [place] [facility] ed[facility] (MODERNA BOOSTER) Branch SARS-COV-2 COVID-19 2022-05-14 Completed Unive rsity of VACCINE, BIVALENT 00:00:00 [place] [facility] ed[facility] (MODERNA BOOSTER) Branch SARS-COV-2 COVID-19 2022-05-14 Completed Unive rsity of VACCINE, BIVALENT 00:00:00 [place] [facility] edical (MODERNA BOOSTER) Branch SARS-COV-2 COVID-19 2022-05-14 Completed Unive rsity of VACCINE, BIVALENT 00:00:00 [place] [facility] ed[facility] (MODERNA BOOSTER) Branch SARS-COV-2 COVID-19 2022-05-14 Completed Unive rsity of VACCINE, BIVALENT 00:00:00 [place] [facility] ed[facility] (MODERNA BOOSTER) Branch SARS-COV-2 COVID-19 2022-05-14 Completed Unive rsity of VACCINE, BIVALENT 00:00:00 [place] [facility] ed[facility] (MODERNA BOOSTER) Branch SARS-COV-2 COVID-19 2022-05-14 Completed Unive rsity of VACCINE, BIVALENT 00:00:00 [facility] edical (MODERNA BOOSTER) Branch SARS-COV-2 COVID-19 2022-05-14 Completed Unive rsity of VACCINE, BIVALENT 00:00:00 [facility] edical (MODERNA BOOSTER) Branch SARS-COV-2 COVID-19 2022-05-14 Completed Unive rsity of VACCINE, BIVALENT 00:00:00 [facility] edical (MODERNA BOOSTER) Branch SARS-COV-2 COVID-19 2022-05-14 Completed Unive rsity of VACCINE, BIVALENT 00:00:00 [facility] edical (MODERNA BOOSTER) Branch Influenza Virus 2022-05-11 Completed Universit y of Vaccine Quad IM, 00:00:00 [facility] dical Preserv and ABX Branch Free 6 MO-64 YRS Pneumococcal 20 2022-05-11 Completed Universit y of Conjugate, PCV20 00:00:00 [facility] dical (Prevnar 20) Branch [facility] 2022-05-11 Completed University of 00:00:00 [facility] [place] Influenza Virus 2022-05-11 Completed Universit y of Vaccine Quad IM, 00:00:00 [facility] dical Preserv and ABX Branch Free 6 MO-64 YRS Pneumococcal 20 2022-05-11 Completed Universit y of Conjugate, PCV20 00:00:00 [facility] dical (Prevnar 20) Branch [facility] 2022-05-11 Completed University of 00:00:00 [facility] [place] Influenza Virus 2022-05-11 Completed Universit y of Vaccine Quad IM, 00:00:00 [facility] dical Preserv and ABX Branch Free 6 MO-64 YRS Pneumococcal 20 2022-05-11 Completed Universit y of Conjugate, PCV20 00:00:00 [facility] dical (Prevnar 20) Branch [facility] 2022-05-11 Completed University of 00:00:00 [facility] [place] Influenza Virus 2022-05-11 Completed Universit y of Vaccine Quad IM, 00:00:00 [facility] dical Preserv and ABX [place] Free 6 MO-64 YRS Pneumococcal 20 2022-05-11 Completed Universit y of Conjugate, PCV20 00:00:00 [facility] dical (Prevnar 20) Branch [facility] 2022-05-11 Completed University of 00:00:00 [facility] [place] Influenza Virus 2022-05-11 Completed Universit y of Vaccine Quad IM, 00:00:00 [facility] dical Preserv and ABX Branch Free 6 MO-64 YRS Pneumococcal 20 2022-05-11 Completed Universit y of Conjugate, PCV20 00:00:00 [facility] dical (Prevnar 20) Branch [facility] 2022-05-11 Completed University of 00:00:00 [facility] [place] Influenza Virus 2022-05-11 Completed Universit y of Vaccine Quad IM, 00:00:00 [facility] dical Preserv and ABX Branch Free 6 MO-64 YRS Pneumococcal 20 2022-05-11 Completed Universit y of Conjugate, PCV20 00:00:00 [facility] dical (Prevnar 20) Branch [facility] 2022-05-11 Completed University of 00:00:00 [facility] [place] Influenza Virus 2022-05-11 Completed Universit y of Vaccine Quad IM, 00:00:00 [facility] dical Preserv and ABX Branch Free 6 MO-64 YRS Pneumococcal 20 2022-05-11 Completed Universit y of Conjugate, PCV20 00:00:00 [facility] dical (Prevnar 20) Branch [facility] 2022-05-11 Completed University of 00:00:00 [facility] [place] Influenza Virus 2022-05-11 Completed Universit y of Vaccine Quad IM, 00:00:00 [facility] dical Preserv and ABX Branch Free 6 MO-64 YRS Pneumococcal 20 2022-05-11 Completed Universit y of Conjugate, PCV20 00:00:00 [facility] dical (Prevnar 20) Branch [facility] 2022-05-11 Completed University of 00:00:00 [facility] [place] Influenza Virus 2022-05-11 Completed Universit y of Vaccine Quad IM, 00:00:00 [facility] dical Preserv and ABX Branch Free 6 MO-64 YRS Pneumococcal 20 2022-05-11 Completed Universit y of Conjugate, PCV20 00:00:00 [facility] dical (Prevnar 20) Branch [facility] 2022-05-11 Completed University of 00:00:00 [facility] [place] Influenza Virus 2022-05-11 Completed Universit y of Vaccine Quad IM, 00:00:00 [facility] dical Preserv and ABX Branch Free 6 MO-64 YRS Pneumococcal 20 2022-05-11 Completed Universit y of Conjugate, PCV20 00:00:00 [facility] dical (Prevnar 20) Branch [facility] 2022-05-11 Completed University of 00:00:00 [facility] [place] Influenza Virus 2022-05-11 Completed Universit y of Vaccine Quad IM, 00:00:00 [facility] dical Preserv and ABX Branch Free 6 MO-64 YRS Pneumococcal 20 2022-05-11 Completed Universit y of Conjugate, PCV20 00:00:00 [facility] dical (Prevnar 20) Branch [facility] 2022-05-11 Completed University of 00:00:00 [facility] [place] Influenza Virus 2022-05-11 Completed Universit y of Vaccine Quad IM, 00:00:00 [facility] dical Preserv and ABX Branch Free 6 MO-64 YRS Pneumococcal 20 2022-05-11 Completed Universit y of Conjugate, PCV20 00:00:00 [facility] dical (Prevnar 20) Branch [facility] 2022-05-11 Completed University of 00:00:00 [facility] [place] Influenza Virus 2022-05-11 Completed Universit y of Vaccine Quad IM, 00:00:00 [facility] dical Preserv and ABX Branch Free 6 MO-64 YRS Pneumococcal 20 2022-05-11 Completed Universit y of Conjugate, PCV20 00:00:00 [facility] dical (Prevnar 20) Branch [facility] 2022-05-11 Completed University of 00:00:00 [facility] [place] Influenza Virus 2022-05-11 Completed Universit y of Vaccine Quad IM, 00:00:00 [facility] dical Preserv and ABX Branch Free 6 MO-64 YRS Pneumococcal 20 2022-05-11 Completed Universit y of Conjugate, PCV20 00:00:00 [facility] dical (Prevnar 20) Branch [facility] 2022-05-11 Completed University of 00:00:00 [facility] [place] Influenza Virus 2022-05-11 Completed Universit y of Vaccine Quad IM, 00:00:00 [facility] dical Preserv and ABX Branch Free 6 MO-64 YRS Pneumococcal 20 2022-05-11 Completed Universit y of Conjugate, PCV20 00:00:00 [facility] dical (Prevnar 20) Branch [facility] 2022-05-11 Completed University of 00:00:00 [facility] [place] Influenza Virus 2022-05-11 Completed Universit y of Vaccine Quad IM, 00:00:00 [facility] dical Preserv and ABX Branch Free 6 MO-64 YRS Pneumococcal 20 2022-05-11 Completed Universit y of Conjugate, PCV20 00:00:00 [facility] dical (Prevnar 20) Branch [facility] 2022-05-11 Completed University of 00:00:00 [facility] [place] Influenza Virus 2022-05-11 Completed Universit y of Vaccine Quad IM, 00:00:00 [facility] dical Preserv and ABX Branch Free 6 MO-64 YRS Pneumococcal 20 2022-05-11 Completed Universit y of Conjugate, PCV20 00:00:00 [facility] dical (Prevnar 20) Branch [facility] 2022-05-11 Completed University of 00:00:00 [facility] [place] Influenza Virus 2022-05-11 Completed Universit y of Vaccine Quad IM, 00:00:00 [facility] dical Preserv and ABX Branch Free 6 MO-64 YRS Pneumococcal 20 2022-05-11 Completed Universit y of Conjugate, PCV20 00:00:00 [facility] dical (Prevnar 20) Branch [facility] 2022-05-11 Completed University of 00:00:00 [facility] [place] Influenza Virus 2022-05-11 Completed Universit y of Vaccine Quad IM, 00:00:00 [facility] dical Preserv and ABX Branch Free 6 MO-64 YRS Pneumococcal 20 2022-05-11 Completed Universit y of Conjugate, PCV20 00:00:00 [facility] dical (Prevnar 20) Branch [facility] 2022-05-11 Completed University of 00:00:00 [facility] [place] Influenza Virus 2022-05-11 Completed Universit y of Vaccine Quad IM, 00:00:00 [facility] dical Preserv and ABX Branch Free 6 MO-64 YRS Pneumococcal 20 2022-05-11 Completed Universit y of Conjugate, PCV20 00:00:00 [facility] dical (Prevnar 20) Branch [facility] 2022-05-11 Completed University of 00:00:00 [facility] Influenza Virus 2022-05-11 Completed Universit y of Vaccine Quad IM, 00:00:00 [facility] dical Preserv and ABX Branch Free 6 MO-64 YRS Pneumococcal 20 2022-05-11 Completed Universit y of Conjugate, PCV20 00:00:00 [facility] dical (Prevnar 20) Branch [facility] 2022-05-11 Completed University of 00:00:00 [facility] Influenza Virus 2022-05-11 Completed Universit y of Vaccine Quad IM, 00:00:00 [facility] dical Preserv and ABX Branch Free 6 MO-64 YRS Pneumococcal 20 2022-05-11 Completed Universit y of Conjugate, PCV20 00:00:00 [facility] dical (Prevnar 20) Branch [facility] 2022-05-11 Completed University of 00:00:00 [facility] Influenza Virus 2022-05-11 Completed Universit y of Vaccine Quad IM, 00:00:00 [facility] dical Preserv and ABX Branch Free 6 MO-64 YRS Pneumococcal 20 2022-05-11 Completed Universit y of Conjugate, PCV20 00:00:00 [facility] dical (Prevnar 20) Branch [facility] 2022-05-11 Completed University of 00:00:00 [facility] [place] Influenza Virus 2022-05-11 Completed Universit y of Vaccine Quad IM, 00:00:00 [facility] dical Preserv and ABX Branch Free 6 MO-64 YRS Pneumococcal 20 2022-05-11 Completed Universit y of Conjugate, PCV20 00:00:00 [facility] dical (Prevnar 20) Branch [facility] 2022-05-11 Completed University of 00:00:00 [facility] [place] Influenza Virus 2022-05-11 Completed Universit y of Vaccine Quad IM, 00:00:00 [facility] dical Preserv and ABX Branch Free 6 MO-64 YRS Pneumococcal 20 2022-05-11 Completed Universit y of Conjugate, PCV20 00:00:00 [facility] dical (Prevnar 20) Branch [facility] 2022-05-11 Completed University of 00:00:00 [facility] Influenza Virus 2022-05-11 Completed Universit y of Vaccine Quad IM, 00:00:00 [facility] dical Preserv and ABX Branch Free 6 MO-64 YRS Pneumococcal 20 2022-05-11 Completed Universit y of Conjugate, PCV20 00:00:00 [facility] dical (Prevnar 20) Branch [facility] 2022-05-11 Completed University of 00:00:00 [facility] Influenza Virus 2022-05-11 Completed Universit y of Vaccine Quad IM, 00:00:00 [facility] dical Preserv and ABX Branch Free 6 MO-64 YRS Pneumococcal 20 2022-05-11 Completed Universit y of Conjugate, PCV20 00:00:00 [facility] dical (Prevnar 20) Branch [facility] 2022-05-11 Completed University of 00:00:00 [facility] Influenza Virus 2022-05-11 Completed Universit y of Vaccine Quad IM, 00:00:00 [facility] dical Preserv and ABX Branch Free 6 MO-64 YRS Pneumococcal 20 2022-05-11 Completed Universit y of Conjugate, PCV20 00:00:00 [facility] dical (Prevnar 20) Branch [facility] 2022-05-11 Completed University of 00:00:00 [facility] Influenza Virus 2022-05-11 Completed Universit y of Vaccine Quad IM, 00:00:00 [facility] dical Preserv and ABX Branch Free 6 MO-64 YRS Pneumococcal 20 2022-05-11 Completed Universit y of Conjugate, PCV20 00:00:00 [facility] dical (Prevnar 20) Branch [facility] 2022-05-11 Completed University of 00:00:00 [facility] Influenza Virus 2022-05-11 Completed Universit y of Vaccine Quad IM, 00:00:00 [facility] dical Preserv and ABX Branch Free 6 MO-64 YRS Pneumococcal 20 2022-05-11 Completed Universit y of Conjugate, PCV20 00:00:00 [facility] dical (Prevnar 20) Branch [facility] 2022-05-11 Completed University of 00:00:00 [facility] Influenza Virus 2022-05-11 Completed Universit y of Vaccine Quad IM, 00:00:00 [facility] dical Preserv and ABX Branch Free 6 MO-64 YRS Pneumococcal 20 2022-05-11 Completed Universit y of Conjugate, PCV20 00:00:00 [facility] dical (Prevnar 20) Branch [facility] 2022-05-11 Completed University of 00:00:00 [facility] Influenza Virus 2022-05-11 Completed Universit y of Vaccine Quad IM, 00:00:00 [facility] dical Preserv and ABX Branch Free 6 MO-64 YRS Pneumococcal 20 2022-05-11 Completed Universit y of Conjugate, PCV20 00:00:00 [facility] dical (Prevnar 20) Branch [facility] 2022-05-11 Completed University of 00:00:00 [facility] Influenza Virus 2022-05-11 Completed Universit y of Vaccine Quad IM, 00:00:00 [facility] dical Preserv and ABX Branch Free 6 MO-64 YRS Pneumococcal 20 2022-05-11 Completed [facility] Conjugate, PCV20 00:00:00 [facility] dical (Prevnar 20) Branch [facility] 2022-05-11 Completed [facility] of 00:00:00 [facility] Influenza Virus 2022-05-11 Completed [facility] Vaccine Quad IM, 00:00:00 [facility] dical Preserv and ABX Branch Free 6 MO-64 YRS Pneumococcal 20 2022-05-11 Completed [facility] Conjugate, PCV20 00:00:00 [facility] dical (Prevnar 20) Branch [facility] 2022-05-11 Completed [facility] 00:00:00 [facility] [place] Influenza Virus 2022-05-11 Completed [facility] Vaccine Quad IM, 00:00:00 [facility] dical Preserv and ABX Branch Free 6 MO-64 YRS Pneumococcal 20 2022-05-11 Completed [facility] Conjugate, PCV20 00:00:00 [facility] dical (Prevnar 20) Branch [facility] 2022-05-11 Completed [facility] 00:00:00 [facility] [place] Influenza Virus 2022-05-11 Completed [facility] Vaccine Quad IM, 00:00:00 [facility] dical Preserv and ABX Branch Free 6 MO-64 YRS Pneumococcal 20 2022-05-11 Completed [facility] Conjugate, PCV20 00:00:00 [facility] dical (Prevnar 20) Branch [facility] 2022-05-11 Completed [facility] 00:00:00 [facility] [place] Influenza Virus 2022-05-11 Completed [facility] Vaccine Quad IM, 00:00:00 [facility] dical Preserv and ABX Branch Free 6 MO-64 YRS Pneumococcal 20 2022-05-11 Completed [facility] Conjugate, PCV20 00:00:00 [facility] dical (Prevnar 20) Branch [facility] 2022-05-11 Completed [facility] 00:00:00 [facility] [place] Influenza Virus 2022-05-11 Completed [facility] Vaccine Quad IM, 00:00:00 [facility] dical Preserv and ABX Branch Free 6 MO-64 YRS Pneumococcal 20 2022-05-11 Completed [facility] Conjugate, PCV20 00:00:00 [facility] dical (Prevnar 20) Branch [facility] 2022-05-11 Completed [facility] 00:00:00 [facility] [place] Influenza Virus 2022-05-11 Completed [facility] Vaccine Quad IM, 00:00:00 [facility] dical Preserv and ABX Branch Free 6 MO-64 YRS Pneumococcal 20 2022-05-11 Completed [facility] Conjugate, PCV20 00:00:00 [facility] dical (Prevnar 20) Branch [facility] 2022-05-11 Completed [facility] 00:00:00 [facility] [place] Influenza Virus 2022-05-11 Completed [facility] Vaccine Quad IM, 00:00:00 [facility] dical Preserv and ABX Branch Free 6 MO-64 YRS Pneumococcal 20 2022-05-11 Completed [facility] Conjugate, PCV20 00:00:00 [facility] dical (Prevnar 20) Branch [facility] 2022-05-11 Completed [facility] 00:00:00 [facility] [place] Influenza Virus 2022-05-11 Completed [facility] Vaccine Quad IM, 00:00:00 [facility] dical Preserv and ABX Branch Free 6 MO-64 YRS Pneumococcal 20 2022-05-11 Completed [facility] Conjugate, PCV20 00:00:00 [facility] dical (Prevnar 20) Branch [facility] 2022-05-11 Completed [facility] 00:00:00 [facility] [place] Influenza Virus 2022-05-11 Completed [facility] Vaccine Quad IM, 00:00:00 [facility] dical Preserv and ABX Branch Free 6 MO-64 YRS Pneumococcal 20 2022-05-11 Completed [facility] Conjugate, PCV20 00:00:00 [facility] dical (Prevnar 20) Branch [facility] 2022-05-11 Completed [facility] 00:00:00 [facility] [place] Influenza Virus 2022-05-11 Completed [facility] Vaccine Quad IM, 00:00:00 [facility] dical Preserv and ABX Branch Free 6 MO-64 YRS Pneumococcal 20 2022-05-11 Completed [facility] Conjugate, PCV20 00:00:00 [facility] dical (Prevnar 20) Branch [facility] 2022-05-11 Completed [facility] 00:00:00 [facility] [place] Influenza Virus 2022-05-11 Completed [facility] Vaccine Quad IM, 00:00:00 [facility] dical Preserv and ABX Branch Free 6 MO-64 YRS Pneumococcal 20 2022-05-11 Completed [facility] Conjugate, PCV20 00:00:00 [facility] dical (Prevnar 20) Branch [facility] 2022-05-11 Completed [facility] of 00:00:00 [facility] [place] Influenza Virus 2022-05-11 Completed [facility] Vaccine Quad IM, 00:00:00 [facility] dical Preserv and ABX Branch Free 6 MO-64 YRS Pneumococcal 20 2022-05-11 Completed [facility] Conjugate, PCV20 00:00:00 [facility] dical (Prevnar 20) Branch [facility] 2022-05-11 Completed [facility] of 00:00:00 [facility] [place] Influenza Virus 2022-05-11 Completed [facility] Vaccine Quad IM, 00:00:00 [facility] dical Preserv and ABX Branch Free 6 MO-64 YRS Pneumococcal 20 2022-05-11 Completed [facility] Conjugate, PCV20 00:00:00 [facility] dical (Prevnar 20) Branch [facility] 2022-05-11 Completed [facility] of 00:00:00 [facility] [place] Influenza Virus 2022-05-11 Completed [facility] Vaccine Quad IM, 00:00:00 [facility] dical Preserv and ABX Branch Free 6 MO-64 YRS Pneumococcal 20 2022-05-11 Completed [facility] Conjugate, PCV20 00:00:00 [facility] dical (Prevnar 20) Branch [facility] 2022-05-11 Completed [facility] 00:00:00 [facility] [place] Influenza Virus 2022-05-11 Completed [facility] Vaccine Quad IM, 00:00:00 [facility] dical Preserv and ABX Branch Free 6 MO-64 YRS Pneumococcal 20 2022-05-11 Completed [facility] Conjugate, PCV20 00:00:00 [facility] dical (Prevnar 20) Branch [facility] 2022-05-11 Completed [facility] 00:00:00 [facility] [place] Influenza Virus 2022-05-11 Completed [facility] Vaccine Quad IM, 00:00:00 [facility] dical Preserv and ABX Branch Free 6 MO-64 YRS Pneumococcal 20 2022-05-11 Completed [facility] Conjugate, PCV20 00:00:00 [facility] dical (Prevnar 20) Branch [facility] 2022-05-11 Completed [facility] 00:00:00 [facility] [place] Influenza Virus 2022-05-11 Completed [facility] Vaccine Quad IM, 00:00:00 [facility] dical Preserv and ABX Branch Free 6 MO-64 YRS Pneumococcal 20 2022-05-11 Completed [facility] Conjugate, PCV20 00:00:00 [facility] dical (Prevnar 20) Branch [facility] 2022-05-11 Completed [facility] of 00:00:00 [facility] [place] Influenza Virus 2022-05-11 Completed [facility] Vaccine Quad IM, 00:00:00 [facility] dical Preserv and ABX Branch Free 6 MO-64 YRS Pneumococcal 20 2022-05-11 Completed [facility] Conjugate, PCV20 00:00:00 [facility] dical (Prevnar 20) Branch [facility] 2022-05-11 Completed [facility] 00:00:00 [facility] [place] Influenza Virus 2022-05-11 Completed [facility] Vaccine Quad IM, 00:00:00 [facility] dical Preserv and ABX Branch Free 6 MO-64 YRS Pneumococcal 20 2022-05-11 Completed [facility] Conjugate, PCV20 00:00:00 [facility] dical (Prevnar 20) Branch [facility] 2022-05-11 Completed [facility] 00:00:00 [facility] [place] Influenza Virus 2022-05-11 Completed [facility] Vaccine Quad IM, 00:00:00 [facility] dical Preserv and ABX Branch Free 6 MO-64 YRS Pneumococcal 20 2022-05-11 Completed [facility] Conjugate, PCV20 00:00:00 [facility] dical (Prevnar 20) Branch [facility] 2022-05-11 Completed [facility] of 00:00:00 [facility] [place] Influenza Virus 2022-05-11 Completed [facility] Vaccine Quad IM, 00:00:00 [facility] dical Preserv and ABX Branch Free 6 MO-64 YRS Pneumococcal 20 2022-05-11 Completed [facility] Conjugate, PCV20 00:00:00 [facility] dical (Prevnar 20) Branch [facility] 2022-05-11 Completed [facility] of 00:00:00 [facility] Influenza Virus 2022-05-11 Completed [facility] Vaccine Quad IM, 00:00:00 [facility] dical Preserv and ABX Branch Free 6 MO-64 YRS Pneumococcal 20 2022-05-11 Completed [facility] Conjugate, PCV20 00:00:00 [facility] dical (Prevnar 20) Branch [facility] 2022-05-11 Completed [facility] 00:00:00 [facility] [place] Influenza Virus 2022-05-11 Completed [facility] Vaccine Quad IM, 00:00:00 [facility] dical Preserv and ABX Branch Free 6 MO-64 YRS Pneumococcal 20 2022-05-11 Completed [facility] Conjugate, PCV20 00:00:00 [facility] dical (Prevnar 20) Branch [facility] 2022-05-11 Completed [facility] 00:00:00 [facility] [place] Influenza Virus 2022-05-11 Completed [facility] Vaccine Quad IM, 00:00:00 [facility] dical Preserv and ABX Branch Free 6 MO-64 YRS Pneumococcal 20 2022-05-11 Completed [facility] Conjugate, PCV20 00:00:00 [facility] dical (Prevnar 20) Branch [facility] 2022-05-11 Completed [facility] 00:00:00 [facility] [place] Influenza Virus 2022-05-11 Completed [facility] Vaccine Quad IM, 00:00:00 [facility] dical Preserv and ABX Branch Free 6 MO-64 YRS Pneumococcal 20 2022-05-11 Completed [facility] Conjugate, PCV20 00:00:00 [facility] dical (Prevnar 20) Branch [facility] 2022-05-11 Completed [facility] 00:00:00 [facility] [place] Influenza Virus 2022-05-11 Completed [facility] of Vaccine Quad IM, 00:00:00 [facility] dical Preserv and ABX Branch Free 6 MO-64 YRS Pneumococcal 20 2022-05-11 Completed [facility] Conjugate, PCV20 00:00:00 [facility] dical (Prevnar 20) Branch [facility] 2022-05-11 Completed [facility] 00:00:00 [facility] [place] Influenza Virus 2022-05-11 Completed [facility] of Vaccine Quad IM, 00:00:00 [facility] dical Preserv and ABX Branch Free 6 MO-64 YRS Pneumococcal 20 2022-05-11 Completed [facility] Conjugate, PCV20 00:00:00 [facility] dical (Prevnar 20) Branch [facility] 2022-05-11 Completed [facility] 00:00:00 [facility] [place] Influenza Virus 2022-05-11 Completed [facility] Vaccine Quad IM, 00:00:00 [facility] dical Preserv and ABX Branch Free 6 MO-64 YRS Pneumococcal 20 2022-05-11 Completed [facility] Conjugate, PCV20 00:00:00 [facility] dical (Prevnar 20) Branch [facility] 2022-05-11 Completed [facility] 00:00:00 [facility] [place] Influenza Virus 2022-05-11 Completed [facility] Vaccine Quad IM, 00:00:00 [facility] dical Preserv and ABX Branch Free 6 MO-64 YRS Pneumococcal 20 2022-05-11 Completed [facility] Conjugate, PCV20 00:00:00 [facility] dical (Prevnar 20) Branch [facility] 2022-05-11 Completed [facility] of 00:00:00 [facility] [place] Influenza Virus 2022-05-11 Completed [facility] of Vaccine Quad IM, 00:00:00 [facility] dical Preserv and ABX Branch Free 6 MO-64 YRS Pneumococcal 20 2022-05-11 Completed [facility] Conjugate, PCV20 00:00:00 [facility] dical (Prevnar 20) Branch [facility] 2022-05-11 Completed [facility] 00:00:00 [facility] [place] Influenza Virus 2022-05-11 Completed [facility] Vaccine Quad IM, 00:00:00 [facility] dical Preserv and ABX Branch Free 6 MO-64 YRS Pneumococcal 20 2022-05-11 Completed [facility] Conjugate, PCV20 00:00:00 [facility] dical (Prevnar 20) Branch [facility] 2022-05-11 Completed [facility] of 00:00:00 [facility] [place] Influenza Virus 2022-05-11 Completed [facility] Vaccine Quad IM, 00:00:00 [facility] dical Preserv and ABX Branch Free 6 MO-64 YRS Pneumococcal 20 2022-05-11 Completed [facility] Conjugate, PCV20 00:00:00 [facility] dical (Prevnar 20) Branch [facility] 2022-05-11 Completed [facility] 00:00:00 [facility] [place] Influenza Virus 2022-05-11 Completed [facility] Vaccine Quad IM, 00:00:00 [facility] dical Preserv and ABX Branch Free 6 MO-64 YRS Pneumococcal 20 2022-05-11 Completed [facility] Conjugate, PCV20 00:00:00 [facility] dical (Prevnar 20) Branch [facility] 2022-05-11 Completed [facility] of 00:00:00 [facility] [place] Influenza Virus 2022-05-11 Completed [facility] Vaccine Quad IM, 00:00:00 [facility] dical Preserv and ABX Branch Free 6 MO-64 YRS Pneumococcal 20 2022-05-11 Completed [facility] Conjugate, PCV20 00:00:00 [facility] dical (Prevnar 20) Branch [facility] 2022-05-11 Completed [facility] 00:00:00 [facility] [place] Influenza Virus 2022-05-11 Completed [facility] of Vaccine Quad IM, 00:00:00 [facility] dical Preserv and ABX Branch Free 6 MO-64 YRS Pneumococcal 20 2022-05-11 Completed [facility] Conjugate, PCV20 00:00:00 [facility] dical (Prevnar 20) Branch [facility] 2022-05-11 Completed [facility] 00:00:00 [facility] [place] Influenza Virus 2022-05-11 Completed [facility] of Vaccine Quad IM, 00:00:00 [facility] dical Preserv and ABX Branch Free 6 MO-64 YRS Pneumococcal 20 2022-05-11 Completed [facility] of Conjugate, PCV20 00:00:00 [facility] dical (Prevnar 20) Branch [facility] 2022-05-11 Completed [facility] 00:00:00 [facility] [place] Influenza Virus 2022-05-11 Completed [facility] y of Vaccine Quad IM, 00:00:00 [facility] dical Preserv and ABX Branch Free 6 MO-64 YRS Pneumococcal 20 2022-05-11 Completed [facility] of Conjugate, PCV20 00:00:00 [facility] dical (Prevnar 20) Branch [facility] 2022-05-11 Completed [facility] of 00:00:00 [facility] [place] Influenza Virus 2022-05-11 Completed [facility] of Vaccine Quad IM, 00:00:00 [facility] dical Preserv and ABX Branch Free 6 MO-64 YRS Pneumococcal 20 2022-05-11 Completed [facility] of Conjugate, PCV20 00:00:00 [facility] dical (Prevnar 20) Branch [facility] 2022-05-11 Completed [facility] of 00:00:00 [facility] [place] Influenza Virus 2022-05-11 Completed [facility] of Vaccine Quad IM, 00:00:00 [facility] dical Preserv and ABX Branch Free 6 MO-64 YRS Pneumococcal 20 2022-05-11 Completed [facility] Conjugate, PCV20 00:00:00 [facility] dical (Prevnar 20) Branch [facility] 2022-05-11 Completed [facility] of 00:00:00 [facility] [place] Influenza Virus 2022-05-11 Completed [facility] of Vaccine Quad IM, 00:00:00 [facility] dical Preserv and ABX Branch Free 6 MO-64 YRS Pneumococcal 20 2022-05-11 Completed [facility] of Conjugate, PCV20 00:00:00 [facility] dical (Prevnar 20) Branch [facility] 2022-05-11 Completed [facility] of 00:00:00 [facility] [place] Influenza Virus 2022-05-11 Completed [facility] of Vaccine Quad IM, 00:00:00 [facility] dical Preserv and ABX Branch Free 6 MO-64 YRS Pneumococcal 20 2022-05-11 Completed [facility] of Conjugate, PCV20 00:00:00 [facility] dical (Prevnar 20) Branch [facility] 2022-05-11 Completed [facility] of 00:00:00 [facility] [place] Influenza Virus 2022-05-11 Completed [facility] of Vaccine Quad IM, 00:00:00 [facility] dical Preserv and ABX Branch Free 6 MO-64 YRS Pneumococcal 20 2022-05-11 Completed [facility] of Conjugate, PCV20 00:00:00 [facility] dical (Prevnar 20) Branch [facility] 2022-05-11 Completed [facility] 00:00:00 [facility] [place] Influenza Virus 2022-05-11 Completed [facility] of Vaccine Quad IM, 00:00:00 [facility] dical Preserv and ABX Branch Free 6 MO-64 YRS Pneumococcal 20 2022-05-11 Completed [facility] Conjugate, PCV20 00:00:00 [facility] dical (Prevnar 20) Branch [facility] 2022-05-11 Completed [facility] 00:00:00 [facility] [place] Influenza Virus 2022-05-11 Completed [facility] of Vaccine Quad IM, 00:00:00 [facility] dical Preserv and ABX Branch Free 6 MO-64 YRS Pneumococcal 20 2022-05-11 Completed [facility] of Conjugate, PCV20 00:00:00 [facility] dical (Prevnar 20) Branch [facility] 2022-05-11 Completed [facility] 00:00:00 [facility] [place] Influenza Virus 2022-05-11 Completed [facility] of Vaccine Quad IM, 00:00:00 [facility] dical Preserv and ABX Branch Free 6 MO-64 YRS Pneumococcal 20 2022-05-11 Completed [facility] of Conjugate, PCV20 00:00:00 [facility] dical (Prevnar 20) Branch [facility] 2022-05-11 Completed [facility] 00:00:00 [facility] Influenza Virus 2022-05-11 Completed [facility] y of Vaccine Quad IM, 00:00:00 [facility] dical Preserv and ABX Branch Free 6 MO-64 YRS Pneumococcal 20 2022-05-11 Completed [facility] of Conjugate, PCV20 00:00:00 [facility] dical (Prevnar 20) Branch [facility] 2022-05-11 Completed [facility] 00:00:00 [facility] Influenza Virus 2022-05-11 Completed [facility] y of Vaccine Quad IM, 00:00:00 [facility] dical Preserv and ABX Branch Free 6 MO-64 YRS Pneumococcal 20 2022-05-11 Completed [facility] of Conjugate, PCV20 00:00:00 [facility] dical (Prevnar 20) Branch [facility] 2022-05-11 Completed [facility] 00:00:00 [facility] Influenza Virus 2022-05-11 Completed [facility] y of Vaccine Quad IM, 00:00:00 [facility] dical Preserv and ABX Branch Free 6 MO-64 YRS Pneumococcal 20 2022-05-11 Completed [facility] of Conjugate, PCV20 00:00:00 [facility] dical (Prevnar 20) Branch [facility] 2022-05-11 Completed [facility] 00:00:00 [facility] Influenza Virus 2022-05-11 Completed [facility] of Vaccine Quad IM, 00:00:00 [facility] dical Preserv and ABX Branch Free 6 MO-64 YRS Pneumococcal 20 2022-05-11 Completed [facility] of Conjugate, PCV20 00:00:00 [facility] dical (Prevnar 20) Branch [facility] 2022-05-11 Completed [facility] 00:00:00 [facility] [place] Influenza Virus 2022-05-11 Completed [facility] of Vaccine Quad IM, 00:00:00 [facility] dical Preserv and ABX Branch Free 6 MO-64 YRS Pneumococcal 20 2022-05-11 Completed [facility] y of Conjugate, PCV20 00:00:00 [facility] dical (Prevnar 20) Branch [facility] 2022-05-11 Completed [facility] 00:00:00 [facility] [place] Influenza Virus 2022-05-11 Completed [facility] y of Vaccine Quad IM, 00:00:00 [facility] dical Preserv and ABX Branch Free 6 MO-64 YRS Pneumococcal 20 2022-05-11 Completed [facility] y of Conjugate, PCV20 00:00:00 [facility] dical (Prevnar 20) Branch [facility] 2022-05-11 Completed [facility] 00:00:00 [facility] [place] Influenza Virus 2022-05-11 Completed [facility] y of Vaccine Quad IM, 00:00:00 [facility] dical Preserv and ABX Branch Free 6 MO-64 YRS Pneumococcal 20 2022-05-11 Completed [facility] y of Conjugate, PCV20 00:00:00 [facility] dical (Prevnar 20) Branch [facility] 2022-05-11 Completed [facility] 00:00:00 [facility] Influenza Virus 2022-05-11 Completed [facility] y of Vaccine Quad IM, 00:00:00 [facility] dical Preserv and ABX Branch Free 6 MO-64 YRS Pneumococcal 20 2022-05-11 Completed [facility] of Conjugate, PCV20 00:00:00 [facility] dical (Prevnar 20) Branch [facility] 2022-05-11 Completed [facility] 00:00:00 [facility] Influenza Virus 2022-05-11 Completed [facility] y of Vaccine Quad IM, 00:00:00 [facility] dical Preserv and ABX Branch Free 6 MO-64 YRS Pneumococcal 20 2022-05-11 Completed [facility] of Conjugate, PCV20 00:00:00 [facility] dical (Prevnar 20) Branch [facility] 2022-05-11 Completed [facility] 00:00:00 [facility] [place] Influenza Virus 2022-05-11 Completed [facility] y of Vaccine Quad IM, 00:00:00 [facility] dical Preserv and ABX Branch Free 6 MO-64 YRS Pneumococcal 20 2022-05-11 Completed [facility] Conjugate, PCV20 00:00:00 [facility] [facility] (Prevnar 20) Branch [facility] 2022-05-11 Completed [facility] 00:00:00 [facility] [place] Influenza Virus 2022-05-11 Completed [facility] Vaccine Quad IM, 00:00:00 [facility] Preserv and ABX Branch Free 6 MO-64 YRS Pneumococcal 20 2022-05-11 Completed [facility]it [facility] of Conjugate, PCV20 00:00:00 [facility] d[facility] (Prevnar 20) Branch [facility] 2022-05-11 Completed [facility] 00:00:00 [facility] [place] Influenza Virus 2022-05-11 Completed [facility] Vaccine Quad IM, 00:00:00 [facility] d[facility] Preserv and ABX Branch Free 6 MO-64 YRS Pneumococcal 20 2022-05-11 Completed [facility] of Conjugate, PCV20 00:00:00 [facility] dical (Prevnar 20) Branch [facility] 2022-05-11 Completed [facility] 00[facility]00:00 [facility] [place] Influenza Virus 2022-05-11 Completed [facility] of Vaccine Quad IM, 00:00:00 [facility] dical Preserv and ABX Branch Free 6 MO-64 YRS Pneumococcal 20 2022-05-11 Completed [facility] of Conjugate, PCV20 00:00:00 [facility] dical (Prevnar 20) Branch [facility] 2022-05-11 Completed [facility] 00[facility]00:00 [facility] [place] Influenza Virus 2022-05-11 Completed [facility] of Vaccine Quad IM, 00:00:00 [facility] dical Preserv and ABX Branch Free 6 MO-64 YRS Pneumococcal 20 2022-05-11 Completed [facility]it [facility] of Conjugate, PCV20 00:00:00 [facility] dical (Prevnar 20) Branch [facility] 2022-05-11 Completed [facility] 00:00:00 [facility] [place] Influenza Virus 2022-05-11 Completed [facility] of Vaccine Quad IM, 00:00:00 [facility] d[facility] Preserv and ABX Branch Free 6 MO-64 YRS Pneumococcal 20 2022-05-11 Completed [facility]it y of Conjugate, PCV20 00:00:00 [facility] dical (Prevnar 20) Branch [facility] 2022-05-11 Completed [facility] 00:00:00 [facility] [place] Influenza Virus 2022-05-11 Completed [facility] of Vaccine Quad IM, 00:00:00 [facility] d[facility] Preserv and ABX Branch Free 6 MO-64 YRS Pneumococcal 20 2022-05-11 Completed [facility] of Conjugate, PCV20 00:00:00 [facility] d[facility] (Prevnar 20) Branch [facility] 2022-05-11 Completed [facility] 00[facility]00:00 [facility] [place] Influenza Virus 2022-05-11 Completed [facility] of Vaccine Quad IM, 00:00:00 [facility] d[facility] Preserv and ABX Branch Free 6 MO-64 YRS Pneumococcal 20 2022-05-11 Completed [facility] of Conjugate, PCV20 00:00:00 [facility] dical (Prevnar 20) Branch [facility] 2022-05-11 Completed [facility] 00:00:00 [facility] [place] Influenza Virus 2022-05-11 Completed [facility] of Vaccine Quad IM, 00:00:00 [facility] d[facility] Preserv and ABX Branch Free 6 MO-64 YRS Pneumococcal 20 2022-05-11 Completed [facility] y of Conjugate, PCV20 00:00:00 [facility] dical (Prevnar 20) Branch [facility] 2022-05-11 Completed [facility] 00[facility]00:00 [facility] [place] Influenza Virus 2022-05-11 Completed [facility] of Vaccine Quad IM, 00:00:00 [facility] d[facility] Preserv and ABX Branch Free 6 MO-64 YRS Pneumococcal 20 2022-05-11 Completed [facility] of Conjugate, PCV20 00:00:00 [facility] dical (Prevnar 20) Branch [facility] 2022-05-11 Completed [facility] 00:00:00 [facility] [place] Influenza Virus 2022-05-11 Completed [facility] of Vaccine Quad IM, 00:00:00 [facility] Preserv and ABX Branch Free 6 MO-64 YRS Pneumococcal 20 2022-05-11 Completed [facility]it y of Conjugate, PCV20 00:00:00 [facility] dical (Prevnar 20) Branch [facility] 2022-05-11 Completed [facility] 00:00:00 [facility] [place] Influenza Virus 2022-05-11 Completed [facility]it y of Vaccine Quad IM, 00:00:00 [facility] d[facility] Preserv and ABX Branch Free 6 MO-64 YRS Pneumococcal 20 2022-05-11 Completed [facility]it y of Conjugate, PCV20 00:00:00 [facility] dical (Prevnar 20) Branch [facility] 2022-05-11 Completed [facility] 00:00:00 [facility] [place] Influenza Virus 2022-05-11 Completed [facility] of Vaccine Quad IM, 00:00:00 [facility] dical Preserv and ABX Branch Free 6 MO-64 YRS Pneumococcal 20 2022-05-11 Completed [facility] y of Conjugate, PCV20 00:00:00 [facility]ical (Prevnar 20) Branch [facility] 2022-05-11 Completed [facility] 00:00:00 [facility] [place] Influenza Virus 2022-05-11 Completed [facility] of Vaccine Quad IM, 00:00:00 [facility] Preserv and ABX Branch Free 6 MO-64 YRS Pneumococcal 20 2022-05-11 Completed [facility] y of Conjugate, PCV20 00:00:00 [facility] (Prevnar 20) Branch [facility] 2022-05-11 Completed [facility] 00:00:00 [facility] [place] Influenza Virus 2022-05-11 Completed [facility] of Vaccine Quad IM, 00:00:00 [facility] Preserv and ABX Branch Free 6 MO-64 YRS Pneumococcal 20 2022-05-11 Completed [facility]it y of Conjugate, PCV20 00:00:00 [facility]ical (Prevnar 20) Branch [facility] 2022-05-11 Completed [facility] 00:00:00 [facility] [place] Influenza Virus 2022-05-11 Completed [facility] of Vaccine Quad IM, 00:00:00 [facility] Preserv and ABX Branch Free 6 MO-64 YRS Pneumococcal 20 2022-05-11 Completed [facility] y of Conjugate, PCV20 00:00:00 [facility] (Prevnar 20) Branch [facility] 2022-05-11 Completed [facility] 00:00:00 [facility] [place] Influenza Virus 2022-05-11 Completed [facility] of Vaccine Quad IM, 00:00:00 [facility] Preserv and ABX Branch Free 6 MO-64 YRS Pneumococcal 20 2022-05-11 Completed [facility]it y of Conjugate, PCV20 00:00:00 [facility] d[facility] (Prevnar 20) Branch [facility] 2022-05-11 Completed [facility] 00:00:00 [facility] [place] Influenza Virus 2022-05-11 Completed [facility] of Vaccine Quad IM, 00:00:00 [facility] Preserv and ABX Branch Free 6 MO-64 YRS Pneumococcal 20 2022-05-11 Completed [facility] y of Conjugate, PCV20 00:00:00 [facility] dical (Prevnar 20) Branch [facility] 2022-05-11 Completed [facility] 00:00:00 [facility] [place] Influenza Virus 2022-05-11 Completed [facility] of Vaccine Quad IM, 00:00:00 [facility] dical Preserv and ABX Branch Free 6 MO-64 YRS Pneumococcal 20 2022-05-11 Completed [facility] y of Conjugate, PCV20 00:00:00 [facility] dical (Prevnar 20) Branch [facility] 2022-05-11 Completed [facility] 00:00:00 [facility] [place] Influenza Virus 2022-05-11 Completed [facility] y of Vaccine Quad IM, 00:00:00 [facility] Preserv and ABX Branch Free 6 MO-64 YRS Pneumococcal 20 2022-05-11 Completed [facility] y of Conjugate, PCV20 00:00:00 [facility] (Prevnar 20) Branch [facility] 2022-05-11 Completed [facility] 00:00:00 [facility] [place] Influenza Virus 2022-05-11 Completed [facility] y of Vaccine Quad IM, 00:00:00 [facility] Preserv and ABX Branch Free 6 MO-64 YRS Pneumococcal 20 2022-05-11 Completed [facility]it y of Conjugate, PCV20 00:00:00 [facility] (Prevnar 20) Branch [facility] 2022-05-11 Completed [facility] 00:00:00 [facility] [place] Influenza Virus 2022-05-11 Completed [facility] y of Vaccine Quad IM, 00:00:00 [facility] Preserv and ABX Branch Free 6 MO-64 YRS Pneumococcal 20 2022-05-11 Completed [facility] y of Conjugate, PCV20 00:00:00 [facility]ical (Prevnar 20) Branch [facility] 2022-05-11 Completed [facility] 00:00:00 [facility] [place] Influenza Virus 2022-05-11 Completed [facility] y of Vaccine Quad IM, 00:00:00 [facility] d[facility] Preserv and ABX Branch Free 6 MO-64 YRS Pneumococcal 20 2022-05-11 Completed [facility] y of Conjugate, PCV20 00:00:00 [facility]ical (Prevnar 20) Branch [facility] 2022-05-11 Completed [facility] 00:00:00 [facility] [place] Influenza Virus 2022-05-11 Completed [facility] y of Vaccine Quad IM, 00:00:00 [facility] d[facility] Preserv and ABX Branch Free 6 MO-64 YRS Pneumococcal 20 2022-05-11 Completed [facility] y of Conjugate, PCV20 00:00:00 [facility] dical (Prevnar 20) Branch [facility] 2022-05-11 Completed [facility] 00:00:00 [facility] [place] Influenza Virus 2022-05-11 Completed [facility] y of Vaccine Quad IM, 00:00:00 [facility] dical Preserv and ABX Branch Free 6 MO-64 YRS Pneumococcal 20 2022-05-11 Completed [facility]it y of Conjugate, PCV20 00:00:00 [facility] dical (Prevnar 20) Branch [facility] 2022-05-11 Completed [facility] 00:00:00 [facility] [place] Influenza Virus 2022-05-11 Completed [facility] y of Vaccine Quad IM, 00:00:00 [facility] dical Preserv and ABX Branch Free 6 MO-64 YRS Pneumococcal 20 2022-05-11 Completed [facility] y of Conjugate, PCV20 00:00:00 [facility] dical (Prevnar 20) Branch [facility] 2022-05-11 Completed [facility] 00:00:00 [facility] [place] Influenza Virus 2022-05-11 Completed [facility] y of Vaccine Quad IM, 00:00:00 [facility] dical Preserv and ABX Branch Free 6 MO-64 YRS Pneumococcal 20 2022-05-11 Completed [facility] y of Conjugate, PCV20 00:00:00 [facility] dical (Prevnar 20) Branch [facility] 2022-05-11 Completed [facility] 00:00:00 [facility] [place] Influenza Virus 2022-05-11 Completed [facility] y of Vaccine Quad IM, 00:00:00 [facility] d[facility] Preserv and ABX Branch Free 6 MO-64 YRS Pneumococcal 20 2022-05-11 Completed [facility] y of Conjugate, PCV20 00:00:00 [facility] dical (Prevnar 20) Branch [facility] 2022-05-11 Completed [facility] 00:00:00 [facility] [place] Influenza Virus 2022-05-11 Completed [facility] y of Vaccine Quad IM, 00:00:00 [facility] dical Preserv and ABX Branch Free 6 MO-64 YRS Pneumococcal 20 2022-05-11 Completed [facility] y of Conjugate, PCV20 00:00:00 [facility] dical (Prevnar 20) Branch [facility] 2022-05-11 Completed [facility] 00:00:00 [facility] [place] Influenza Virus 2022-05-11 Completed [facility]it y of Vaccine Quad IM, 00:00:00 [facility] dical Preserv and ABX Branch Free 6 MO-64 YRS Pneumococcal 20 2022-05-11 Completed [facility] y of Conjugate, PCV20 00:00:00 [facility] dical (Prevnar 20) Branch [facility] 2022-05-11 Completed [facility] 00:00:00 [facility] [place] Influenza Virus 2022-05-11 Completed [facility] y of Vaccine Quad IM, 00:00:00 [facility] dical Preserv and ABX Branch Free 6 MO-64 YRS Pneumococcal 20 2022-05-11 Completed [facility] y of Conjugate, PCV20 00:00:00 [facility] dical (Prevnar 20) Branch [facility] 2022-05-11 Completed [facility] 00:00:00 [facility] [place] Influenza Virus 2022-05-11 Completed [facility] y of Vaccine Quad IM, 00:00:00 [facility] dical Preserv and ABX Branch Free 6 MO-64 YRS Pneumococcal 20 2022-05-11 Completed [facility] y of Conjugate, PCV20 00:00:00 [facility] dical (Prevnar 20) Branch [facility] 2022-05-11 Completed [facility] 00:00:00 [facility] [place] Influenza Virus 2022-05-11 Completed [facility] y of Vaccine Quad IM, 00:00:00 [facility] dical Preserv and ABX Branch Free 6 MO-64 YRS Pneumococcal 20 2022-05-11 Completed [facility] y of Conjugate, PCV20 00:00:00 [facility] dical (Prevnar 20) Branch [facility] 2022-05-11 Completed [facility] 00:00:00 [facility] [place] Influenza Virus 2022-05-11 Completed [facility] y of Vaccine Quad IM, 00:00:00 [facility] dical Preserv and ABX Branch Free 6 MO-64 YRS Pneumococcal 20 2022-05-11 Completed [facility] y of Conjugate, PCV20 00:00:00 [facility] dical (Prevnar 20) Branch [facility] 2022-05-11 Completed [facility] 00:00:00 [facility] [place] Influenza Virus 2022-05-11 Completed [facility] y of Vaccine Quad IM, 00:00:00 [facility] dical Preserv and ABX Branch Free 6 MO-64 YRS Pneumococcal 20 2022-05-11 Completed [facility] y of Conjugate, PCV20 00:00:00 [facility] dical (Prevnar 20) Branch [facility] 2022-05-11 Completed [facility] 00:00:00 [facility] [place] Influenza Virus 2022-05-11 Completed [facility] y of Vaccine Quad IM, 00:00:00 [facility] dical Preserv and ABX Branch Free 6 MO-64 YRS Pneumococcal 20 2022-05-11 Completed [facility] y of Conjugate, PCV20 00:00:00 [facility] dical (Prevnar 20) Branch [facility] 2022-05-11 Completed [facility] 00:00:00 [facility] [place] Influenza Virus 2022-05-11 Completed [facility] y of Vaccine Quad IM, 00:00:00 [facility] dical Preserv and ABX Branch Free 6 MO-64 YRS Pneumococcal 20 2022-05-11 Completed [facility] y of Conjugate, PCV20 00:00:00 [facility] dical (Prevnar 20) Branch [facility] 2022-05-11 Completed [facility] 00:00:00 [facility] [place] Influenza Virus 2022-05-11 Completed [facility] y of Vaccine Quad IM, 00:00:00 [facility] dical Preserv and ABX Branch Free 6 MO-64 YRS Pneumococcal 20 2022-05-11 Completed [facility] y of Conjugate, PCV20 00:00:00 [facility] dical (Prevnar 20) Branch [facility] 2022-05-11 Completed [facility] 00:00:00 [facility] [place] Influenza Virus 2022-05-11 Completed [facility] y of Vaccine Quad IM, 00:00:00 [facility] dical Preserv and ABX Branch Free 6 MO-64 YRS Pneumococcal 20 2022-05-11 Completed [facility] y of Conjugate, PCV20 00:00:00 [facility] dical (Prevnar 20) Branch [facility] 2022-05-11 Completed [facility] 00:00:00 [facility] [place] Influenza Virus 2022-05-11 Completed [facility] y of Vaccine Quad IM, 00:00:00 [facility] dical Preserv and ABX Branch Free 6 MO-64 YRS Pneumococcal 20 2022-05-11 Completed [facility] y of Conjugate, PCV20 00:00:00 [facility] dical (Prevnar 20) Branch [facility] 2022-05-11 Completed [facility] 00:00:00 [facility] [place] Influenza Virus 2022-05-11 Completed [facility] y of Vaccine Quad IM, 00:00:00 [facility] dical Preserv and ABX Branch Free 6 MO-64 YRS Pneumococcal 20 2022-05-11 Completed [facility]it y of Conjugate, PCV20 00:00:00 [facility] dical (Prevnar 20) Branch [facility] 2022-05-11 Completed [facility] 00:00:00 [facility] [place] Influenza Virus 2022-05-11 Completed [facility] y of Vaccine Quad IM, 00:00:00 [facility] dical Preserv and ABX Branch Free 6 MO-64 YRS Pneumococcal 20 2022-05-11 Completed [facility] y of Conjugate, PCV20 00:00:00 [facility] dical (Prevnar 20) Branch [facility] 2022-05-11 Completed [facility] 00:00:00 [facility] [place] Influenza Virus 2022-05-11 Completed [facility] y of Vaccine Quad IM, 00:00:00 [facility] dical Preserv and ABX Branch Free 6 MO-64 YRS Pneumococcal 20 2022-05-11 Completed [facility] y of Conjugate, PCV20 00:00:00 [facility] dical (Prevnar 20) Branch [facility] 2022-05-11 Completed [facility] 00:00:00 [facility] [place] Influenza Virus 2022-05-11 Completed [facility] y of Vaccine Quad IM, 00:00:00 [facility] dical Preserv and ABX Branch Free 6 MO-64 YRS Pneumococcal 20 2022-05-11 Completed [facility] y of Conjugate, PCV20 00:00:00 [facility]ical (Prevnar 20) Branch [facility] 2022-05-11 Completed [facility] 00:00:00 [facility] [place] Influenza Virus 2022-05-11 Completed [facility] of Vaccine Quad IM, 00:00:00 [facility] dical Preserv and ABX Branch Free 6 MO-64 YRS Pneumococcal 20 2022-05-11 Completed [facility] y of Conjugate, PCV20 00:00:00 [facility] dical (Prevnar 20) Branch [facility] 2022-05-11 Completed [facility] 00:00:00 [facility] [place] Influenza Virus 2022-05-11 Completed [facility] y of Vaccine Quad IM, 00:00:00 [facility] dical Preserv and ABX Branch Free 6 MO-64 YRS Pneumococcal 20 2022-05-11 Completed [facility] y of Conjugate, PCV20 00:00:00 [facility] dical (Prevnar 20) Branch [facility] 2022-05-11 Completed [facility] 00:00:00 [facility] [place] Influenza Virus 2022-05-11 Completed [facility] y of Vaccine Quad IM, 00:00:00 [facility] Preserv and ABX Branch Free 6 MO-64 YRS Pneumococcal 20 2022-05-11 Completed [facility] y of Conjugate, PCV20 00:00:00 [facility] dical (Prevnar 20) Branch [facility] 2022-05-11 Completed [facility] 00:00:00 [facility] [place] Influenza Virus 2022-05-11 Completed [facility] y of Vaccine Quad IM, 00:00:00 [facility] d[facility] Preserv and ABX Branch Free 6 MO-64 YRS Pneumococcal 20 2022-05-11 Completed [facility] y of Conjugate, PCV20 00:00:00 [facility] dical (Prevnar 20) Branch [facility] 2022-05-11 Completed [facility] 00:00:00 [facility] [place] Influenza Virus 2022-05-11 Completed [facility] y of Vaccine Quad IM, 00:00:00 [facility] dical Preserv and ABX Branch Free 6 MO-64 YRS Pneumococcal 20 2022-05-11 Completed [facility] y of Conjugate, PCV20 00:00:00 [facility] dical (Prevnar 20) Branch [facility] 2022-05-11 Completed [facility] 00:00:00 [facility] [place] Influenza Virus 2022-05-11 Completed [facility] y of Vaccine Quad IM, 00:00:00 [facility] dical Preserv and ABX Branch Free 6 MO-64 YRS Pneumococcal 20 2022-05-11 Completed [facility] y of Conjugate, PCV20 00:00:00 [facility] dical (Prevnar 20) Branch [facility] 2022-05-11 Completed [facility] 00:00:00 [facility] [place] Influenza Virus 2022-05-11 Completed [facility] y of Vaccine Quad IM, 00:00:00 [facility] dical Preserv and ABX Branch Free 6 MO-64 YRS Pneumococcal 20 2022-05-11 Completed [facility] y of Conjugate, PCV20 00:00:00 [facility] dical (Prevnar 20) Branch [facility] 2022-05-11 Completed [facility] 00:00:00 [facility] [place] Influenza Virus 2022-05-11 Completed [facility] y of Vaccine Quad IM, 00:00:00 [facility] dical Preserv and ABX Branch Free 6 MO-64 YRS Pneumococcal 20 2022-05-11 Completed [facility] y of Conjugate, PCV20 00:00:00 [facility] dical (Prevnar 20) Branch [facility] 2022-05-11 Completed [facility] 00:00:00 [facility] [place] Influenza Virus 2022-05-11 Completed [facility] y of Vaccine Quad IM, 00:00:00 [facility] dical Preserv and ABX Branch Free 6 MO-64 YRS Pneumococcal 20 2022-05-11 Completed [facility] y of Conjugate, PCV20 00:00:00 [facility] dical (Prevnar 20) Branch [facility] 2022-05-11 Completed [facility] 00:00:00 [facility] [place] Influenza Virus 2022-05-11 Completed [facility] y of Vaccine Quad IM, 00:00:00 [facility] dical Preserv and ABX Branch Free 6 MO-64 YRS Pneumococcal 20 2022-05-11 Completed [facility] y of Conjugate, PCV20 00:00:00 [facility] dical (Prevnar 20) Branch [facility] 2022-05-11 Completed [facility] 00:00:00 [facility] [place] Influenza Virus 2022-05-11 Completed [facility] y of Vaccine Quad IM, 00:00:00 [facility] dical Preserv and ABX Branch Free 6 MO-64 YRS Pneumococcal 20 2022-05-11 Completed [facility] y of Conjugate, PCV20 00:00:00 [facility] dical (Prevnar 20) Branch [facility] 2022-05-11 Completed [facility] 00:00:00 [facility] [place] Influenza Virus 2022-05-11 Completed [facility] y of Vaccine Quad IM, 00:00:00 [facility] dical Preserv and ABX Branch Free 6 MO-64 YRS Pneumococcal 20 2022-05-11 Completed [facility] y of Conjugate, PCV20 00:00:00 [facility] dical (Prevnar 20) Branch [facility] 2022-05-11 Completed [facility] 00:00:00 [facility] [place] Influenza Virus 2022-05-11 Completed [facility] Vaccine Quad IM, 00:00:00 [facility] dical Preserv and ABX Branch Free 6 MO-64 YRS Pneumococcal 20 2022-05-11 Completed [facility] of Conjugate, PCV20 00:00:00 [facility] dical (Prevnar 20) Branch [facility] 2022-05-11 Completed [facility] 00:00:00 [facility] [place] Influenza Virus 2022-05-11 Completed [facility] Vaccine Quad IM, 00:00:00 [facility] dical Preserv and ABX Branch Free 6 MO-64 YRS Pneumococcal 20 2022-05-11 Completed [facility]it [facility] of Conjugate, PCV20 00:00:00 [facility] dical (Prevnar 20) Branch TDAP 2022-05-11 Completed University 00:00:00 [facility] [place] Influenza Virus 2022-05-11 Completed [facility]it [facility] of Vaccine Quad IM, 00:00:00 [facility] dical Preserv and ABX Branch Free 6 MO-64 YRS Pneumococcal 20 2022-05-11 Completed [facility]it [facility] of Conjugate, PCV20 00:00:00 [facility] dical (Prevnar 20) Branch TDAP 2022-05-11 Completed University 00:00:00 [facility] [place] SARS-COV-2 COVID-19 2021-03-28 Completed Unive rsity of PFIZER VACCINE 00:00:00 [facility] SARS-COV-2 COVID-19 2021-03-28 Completed Unive rsity of PFIZER VACCINE 00:00:00 [facility] SARS-COV-2 COVID-19 2021-03-28 Completed Unive rsity of PFIZER VACCINE 00:00:00 [facility] SARS-COV-2 COVID-19 2021-03-28 Completed [facility]ive rsity of PFIZER VACCINE 00:00:00 [facility] SARS-COV-2 COVID-19 2021-03-28 Completed [facility]ive rsity of PFIZER VACCINE 00:00:00 [facility] SARS-COV-2 COVID-19 2021-03-28 Completed [facility]ive rsity of PFIZER VACCINE 00:00:00 [facility] SARS-COV-2 COVID-19 2021-03-28 Completed [facility]ive rsity of PFIZER VACCINE 00:00:00 [facility] SARS-COV-2 COVID-19 2021-03-28 Completed [facility]ive rsity of PFIZER VACCINE 00:00:00 [facility] SARS-COV-2 COVID-19 2021-03-28 Completed [facility]ive rsity of PFIZER VACCINE 00:00:00 [facility] SARS-COV-2 COVID-19 2021-03-28 Completed [facility]ive rsity of PFIZER VACCINE 00:00:00 [facility] SARS-COV-2 COVID-19 2021-03-28 Completed [facility] PFIZER VACCINE 00:00:00 [facility] SARS-COV-2 COVID-19 2021-03-28 Completed [facility]ive rsity of PFIZER VACCINE 00:00:[address] [facility] SARS-COV-2 COVID-19 2021-03-28 Completed [facility]ive rsity of PFIZER VACCINE 00:00:[address] [facility] SARS-COV-2 COVID-19 2021-03-28 Completed [facility]ive rsity of PFIZER VACCINE 00:00:[address] [facility] SARS-COV-2 COVID-19 2021-03-28 Completed [facility]ive rsity of PFIZER VACCINE 00:00:[address] [facility] SARS-COV-2 COVID-19 2021-03-28 Completed [facility]ive rsity of PFIZER VACCINE 00:00:[address] [facility] SARS-COV-2 COVID-19 2021-03-28 Completed Unive rsity of PFIZER VACCINE 00:00:[address] [facility] SARS-COV-2 COVID-19 2021-03-28 Completed [facility]ive rsity of PFIZER VACCINE 00:00:[address] [facility] SARS-COV-2 COVID-19 2021-03-28 Completed [facility]ive rsity of PFIZER VACCINE 00:00:[address] [facility] SARS-COV-2 COVID-19 2021-03-28 Completed [facility]ive rsity of PFIZER VACCINE 00:00:[address] [facility] SARS-COV-2 COVID-19 2021-03-28 Completed [facility]ive rsity of PFIZER VACCINE 00:00:[address] [facility] SARS-COV-2 COVID-19 2021-03-28 Completed [facility]ive rsity of PFIZER VACCINE 00:00:[address] [facility] SARS-COV-2 COVID-19 2021-03-28 Completed [facility]ive rsity of PFIZER VACCINE 00:00:[address] [facility] SARS-COV-2 COVID-19 2021-03-28 Completed [facility]ive rsity of PFIZER VACCINE 00:00:[address] [facility] SARS-COV-2 COVID-19 2021-03-28 Completed [facility]ive rsity of PFIZER VACCINE 00:00:[address] [facility] SARS-COV-2 COVID-19 2021-03-28 Completed [facility]ive rsity of PFIZER VACCINE 00:00:[address] [facility] SARS-COV-2 COVID-19 2021-03-28 Completed [facility]ive rsity of PFIZER VACCINE 00:00:[address] [facility] SARS-COV-2 COVID-19 2021-03-28 Completed [facility]ive [facility]ity of PFIZER VACCINE 00:00:[address] [facility] SARS-COV-2 COVID-19 2021-03-28 Completed [facility]ive rsity of PFIZER VACCINE 00:00:[address] [facility] SARS-COV-2 COVID-19 2021-03-28 Completed [facility]ive [facility]ity of PFIZER VACCINE 00:00:[address] [facility] SARS-COV-2 COVID-19 2021-03-28 Completed [facility]ive rsity of PFIZER VACCINE 00:00:[address] [facility] SARS-COV-2 COVID-19 2021-03-28 Completed [facility]ive rsity of PFIZER VACCINE 00:00:[address] [facility] SARS-COV-2 COVID-19 2021-03-28 Completed [facility]ive rsity of PFIZER VACCINE 00:00:[address] [facility] SARS-COV-2 COVID-19 2021-03-28 Completed [facility]ive rsity of PFIZER VACCINE 00:00:[address] [facility] SARS-COV-2 COVID-19 2021-03-28 Completed [facility]ive rsity of PFIZER VACCINE 00:00:[address] [facility] SARS-COV-2 COVID-19 2021-03-28 Completed [facility]ive rsity of PFIZER VACCINE 00:00:[address] [facility] SARS-COV-2 COVID-19 2021-03-28 Completed [facility]ive rsity of PFIZER VACCINE 00:00:[address] [facility] SARS-COV-2 COVID-19 2021-03-28 Completed [facility]ive rsity of PFIZER VACCINE 00:00:[address] [facility] SARS-COV-2 COVID-19 2021-03-28 Completed [facility]ive rsity of PFIZER VACCINE 00:00:[address] [facility] SARS-COV-2 COVID-19 2021-03-28 Completed Unive rsity of PFIZER VACCINE 00:00:[address] [facility] SARS-COV-2 COVID-19 2021-03-28 Completed [facility]ive rsity of PFIZER VACCINE 00:00:[address] [facility] SARS-COV-2 COVID-19 2021-03-28 Completed [facility]ive rsity of PFIZER VACCINE 00:00:[address] [facility] SARS-COV-2 COVID-19 2021-03-28 Completed [facility]ive rsity of PFIZER VACCINE 00:00:00 [facility] SARS-COV-2 COVID-19 2021-03-28 Completed Unive rsity of PFIZER VACCINE 00:00:[address] [facility] SARS-COV-2 COVID-19 2021-03-28 Completed [facility]ive [facility]ity of PFIZER VACCINE 00:00:00 [facility] SARS-COV-2 COVID-19 2021-03-28 Completed Unive rsity of PFIZER VACCINE 00:00:[address] [facility] SARS-COV-2 COVID-19 2021-03-28 Completed [facility]ive [facility]ity of PFIZER VACCINE 00:00:00 [facility] SARS-COV-2 COVID-19 2021-03-28 Completed Unive [facility]ity of PFIZER VACCINE 00:00:00 [facility] SARS-COV-2 COVID-19 2021-03-28 Completed Unive [facility]ity of PFIZER VACCINE 00:00:00 [facility] SARS-COV-2 COVID-19 2021-03-28 Completed Unive rsity of PFIZER VACCINE 00:00:[address] [facility] SARS-COV-2 COVID-19 2021-03-28 Completed [facility]ive [facility]ity of PFIZER VACCINE 00:00:00 [facility] SARS-COV-2 COVID-19 2021-03-28 Completed Unive [facility]ity of PFIZER VACCINE 00:00:00 [facility] SARS-COV-2 COVID-19 2021-03-28 Completed Unive rsity of PFIZER VACCINE 00:00:00 [facility] SARS-COV-2 COVID-19 2021-03-28 Completed Unive rsity of PFIZER VACCINE 00:00:[address] [facility] SARS-COV-2 COVID-19 2021-03-28 Completed Unive rsity of PFIZER VACCINE 00:00:00 [facility] SARS-COV-2 COVID-19 2021-03-28 Completed Unive rsity of PFIZER VACCINE 00:00:00 [facility] SARS-COV-2 COVID-19 2021-03-28 Completed Unive rsity of PFIZER VACCINE 00:00:00 [facility] SARS-COV-2 COVID-19 2021-03-28 Completed [facility]ive [facility]ity of PFIZER VACCINE 00:00:00 [facility] SARS-COV-2 COVID-19 2021-03-28 Completed Unive rsity of PFIZER VACCINE 00:00:[address] [facility] SARS-COV-2 COVID-19 2021-03-28 Completed Unive rsity of PFIZER VACCINE 00:00:[address] [facility] SARS-COV-2 COVID-19 2021-03-28 Completed [facility]ive [facility]ity of PFIZER VACCINE 00:00:[address] [facility] SARS-COV-2 COVID-19 2021-03-28 Completed [facility]ive [facility]ity of PFIZER VACCINE 00:00:[address] [facility] SARS-COV-2 COVID-19 2021-03-28 Completed [facility]ive [facility]ity of PFIZER VACCINE 00:00:[address] [facility] SARS-COV-2 COVID-19 2021-03-28 Completed [facility]ive [facility] of PFIZER VACCINE 00:00:[address] [facility] SARS-COV-2 COVID-19 2021-03-28 Completed [facility]ive [facility] of PFIZER VACCINE 00:00:[address] [facility] SARS-COV-2 COVID-19 2021-03-28 Completed [facility]ive [facility] of PFIZER VACCINE 00:00:[address] [facility] SARS-COV-2 COVID-19 2021-03-28 Completed [facility]ive [facility] of PFIZER VACCINE 00:00:[address] [facility] SARS-COV-2 COVID-19 2021-03-28 Completed [facility]ive [facility]ity of PFIZER VACCINE 00:00:[address] [facility] SARS-COV-2 COVID-19 2021-03-28 Completed [facility]ive [facility]ity of PFIZER VACCINE 00:00:[address] [facility] SARS-COV-2 COVID-19 2021-03-28 Completed [facility]ive [facility]ity of PFIZER VACCINE 00:00:[address] [facility] SARS-COV-2 COVID-19 2021-03-28 Completed [facility]ive [facility]ity of PFIZER VACCINE 00:00:[address] [facility] SARS-COV-2 COVID-19 2021-03-28 Completed [facility]ive [facility]ity of PFIZER VACCINE 00:00:[address] [facility] SARS-COV-2 COVID-19 2021-03-28 Completed [facility]ive [facility]ity of PFIZER VACCINE 00:00:[address] [facility] SARS-COV-2 COVID-19 2021-03-28 Completed [facility]ive [facility]ity of PFIZER VACCINE 00:00:[address] [facility] SARS-COV-2 COVID-19 2021-03-28 Completed [facility]ive [facility]ity of PFIZER VACCINE 00:00:[address] [facility] SARS-COV-2 COVID-19 2021-03-28 Completed [facility]ive rsity of PFIZER VACCINE 00:00:[address] [facility] SARS-COV-2 COVID-19 2021-03-28 Completed [facility]ive [facility]ity of PFIZER VACCINE 00:00:[address] [facility] SARS-COV-2 COVID-19 2021-03-28 Completed [facility]ive [facility]ity of PFIZER VACCINE 00:00:[address] [facility] SARS-COV-2 COVID-19 2021-03-28 Completed [facility]ive [facility]ity of PFIZER VACCINE 00:00:[address] [facility] SARS-COV-2 COVID-19 2021-03-28 Completed [facility]ive [facility]ity of PFIZER VACCINE 00:00:[address] [facility] SARS-COV-2 COVID-19 2021-03-28 Completed [facility]ive rsity of PFIZER VACCINE 00:00:[address] [facility] SARS-COV-2 COVID-19 2021-03-28 Completed [facility]ive [facility]ity of PFIZER VACCINE 00:00:[address] [facility] SARS-COV-2 COVID-19 2021-03-28 Completed [facility]ive rsity of PFIZER VACCINE 00:00:[address] [facility] SARS-COV-2 COVID-19 2021-03-28 Completed [facility]ive [facility]ity of PFIZER VACCINE 00:00:[address] [facility] SARS-COV-2 COVID-19 2021-03-28 Completed [facility]ive [facility]ity of PFIZER VACCINE 00:00:[address] [facility] SARS-COV-2 COVID-19 2021-03-28 Completed [facility]ive [facility]ity of PFIZER VACCINE 00:00:[address] [facility] SARS-COV-2 COVID-19 2021-03-28 Completed [facility]ive [facility]ity of PFIZER VACCINE 00:00:[address] [facility] SARS-COV-2 COVID-19 2021-03-28 Completed [facility] of PFIZER VACCINE 00:00:[address] [facility] SARS-COV-2 COVID-19 2021-03-28 Completed [facility]ive [facility]ity of PFIZER VACCINE 00:00:[address] [facility] SARS-COV-2 COVID-19 2021-03-28 Completed [facility]ive [facility]ity of PFIZER VACCINE 00:00:[address] [facility] SARS-COV-2 COVID-19 2021-03-28 Completed [facility]ive [facility]ity of PFIZER VACCINE 00:00:[address] [facility] SARS-COV-2 COVID-19 2021-03-28 Completed [facility]ive [facility]ity of PFIZER VACCINE 00:00:[address] [facility] SARS-COV-2 COVID-19 2021-03-28 Completed [facility]ive [facility]ity of PFIZER VACCINE 00:00:[address] [facility] SARS-COV-2 COVID-19 2021-03-28 Completed [facility]ive [facility]ity of PFIZER VACCINE 00:00:[address] [facility] SARS-COV-2 COVID-19 2021-03-28 Completed [facility]ive [facility]ity of PFIZER VACCINE 00:00:[address] [facility] SARS-COV-2 COVID-19 2021-03-28 Completed [facility]ity of PFIZER VACCINE 00:00:[address] [facility] SARS-COV-2 COVID-19 2021-03-28 Completed [facility]ity of PFIZER VACCINE 00:00:[address] [facility] SARS-COV-2 COVID-19 2021-03-28 Completed [facility]ive [facility]ity of PFIZER VACCINE 00:00:[address] [facility] SARS-COV-2 COVID-19 2021-03-28 Completed [facility] of PFIZER VACCINE 00:00:[address] [facility] SARS-COV-2 COVID-19 2021-03-28 Completed [facility] of PFIZER VACCINE 00:00:[address] [facility] SARS-COV-2 COVID-19 2021-03-28 Completed [facility] of PFIZER VACCINE 00:00:[address] [facility] SARS-COV-2 COVID-19 2021-03-28 Completed [facility] of PFIZER VACCINE 00:00:[address] [facility] SARS-COV-2 COVID-19 2021-03-28 Completed [facility] of PFIZER VACCINE 00:00:[address] [facility] SARS-COV-2 COVID-19 2021-03-28 Completed [facility] of PFIZER VACCINE 00:00:[address] [facility] SARS-COV-2 COVID-19 2021-03-28 Completed [facility] of PFIZER VACCINE 00:00:[address] [facility] SARS-COV-2 COVID-19 2021-03-28 Completed [facility]ive [facility] of PFIZER VACCINE 00:00:[address] [facility] SARS-COV-2 COVID-19 2021-03-28 Completed [facility]ive [facility]ity of PFIZER VACCINE 00:00:[address] [facility] SARS-COV-2 COVID-19 2021-03-28 Completed [facility]ive [facility]ity of PFIZER VACCINE 00:00:[address] [facility] SARS-COV-2 COVID-19 2021-03-28 Completed [facility]ive [facility] of PFIZER VACCINE 00:00:[address] [facility] SARS-COV-2 COVID-19 2021-03-28 Completed [facility]ive [facility]ity of PFIZER VACCINE 00:00:[address] [facility] SARS-COV-2 COVID-19 2021-03-28 Completed [facility]ive [facility] of PFIZER VACCINE 00:00:[address] [facility] SARS-COV-2 COVID-19 2021-03-28 Completed [facility] of PFIZER VACCINE 00:00:[address] [facility] SARS-COV-2 COVID-19 2021-03-28 Completed [facility] of PFIZER VACCINE 00:00:[address] [facility] SARS-COV-2 COVID-19 2021-03-28 Completed [facility] of PFIZER VACCINE 00:00:[address] [facility] SARS-COV-2 COVID-19 2021-03-28 Completed [facility] of PFIZER VACCINE 00:00:[address] [facility] SARS-COV-2 COVID-19 2021-03-28 Completed [facility] of PFIZER VACCINE 00:00:[address] [facility] SARS-COV-2 COVID-19 2021-03-28 Completed [facility] of PFIZER VACCINE 00:00:[address] [facility] SARS-COV-2 COVID-19 2021-03-28 Completed [facility] of PFIZER VACCINE 00:00:[address] [facility] SARS-COV-2 COVID-19 2021-03-28 Completed [facility] of PFIZER VACCINE 00:00:00 [facility] SARS-COV-2 COVID-19 2021-03-28 Completed [facility]ity of PFIZER VACCINE 00:00:[address] [facility] SARS-COV-2 COVID-19 2021-03-28 Completed [facility] of PFIZER VACCINE 00:00:[address] [facility] SARS-COV-2 COVID-19 2021-03-28 Completed [facility] of PFIZER VACCINE 00:00:[address] [facility] SARS-COV-2 COVID-19 2021-03-28 Completed [facility] of PFIZER VACCINE 00:00:[address] [facility] SARS-COV-2 COVID-19 2021-03-28 Completed [facility] of PFIZER VACCINE 00:00:[address] [facility] SARS-COV-2 COVID-19 2021-03-28 Completed [facility] of PFIZER VACCINE 00:00:[address] [facility] SARS-COV-2 COVID-19 2021-03-28 Completed [facility] of PFIZER VACCINE 00:00:[address] [facility] SARS-COV-2 COVID-19 2021-03-28 Completed [facility] of PFIZER VACCINE 00:00:[address] [facility] SARS-COV-2 COVID-19 2021-03-28 Completed [facility] of PFIZER VACCINE 00:00:[address] [facility] SARS-COV-2 COVID-19 2021-03-28 Completed [facility] of PFIZER VACCINE 00:00:[address] [facility] SARS-COV-2 COVID-19 2021-03-28 Completed [facility] of PFIZER VACCINE 00:00:[address] [facility] SARS-COV-2 COVID-19 2021-03-28 Completed [facility] of PFIZER VACCINE 00:00:[address] [facility] SARS-COV-2 COVID-19 2021-03-28 Completed [facility] of PFIZER VACCINE 00:00:[address] [facility] SARS-COV-2 COVID-19 2021-03-28 Completed [facility] of PFIZER VACCINE 00:00:[address] [facility] SARS-COV-2 COVID-19 2021-03-28 Completed [facility] of PFIZER VACCINE 00:00:[address] [facility] SARS-COV-2 COVID-19 2021-03-28 Completed [facility] of PFIZER VACCINE 00:00:[address] [facility] SARS-COV-2 COVID-19 2021-03-28 Completed [facility] of PFIZER VACCINE 00:00:[address] [facility] SARS-COV-2 COVID-19 2021-03-28 Completed [facility] of PFIZER VACCINE 00:00:[address] [facility] SARS-COV-2 COVID-19 2021-03-28 Completed [facility] of PFIZER VACCINE 00:00:[address] [facility] SARS-COV-2 COVID-19 2021-03-28 Completed [facility] of PFIZER VACCINE 00:00:[address] [facility] SARS-COV-2 COVID-19 2021-03-28 Completed [facility] of PFIZER VACCINE 00:00:[address] [facility] SARS-COV-2 COVID-19 2021-03-28 Completed [facility] of PFIZER VACCINE 00:00:[address] [facility] SARS-COV-2 COVID-19 2021-03-28 Completed [facility] of PFIZER VACCINE 00:00:[address] [facility] SARS-COV-2 COVID-19 2021-03-28 Completed [facility] of PFIZER VACCINE 00:00:[address] [facility] SARS-COV-2 COVID-19 2021-03-28 Completed [facility] of PFIZER VACCINE 00:00:[address] [facility] SARS-COV-2 COVID-19 2021-03-28 Completed [facility] of PFIZER VACCINE 00:00:[address] [facility] SARS-COV-2 COVID-19 2021-03-28 Completed [facility] of PFIZER VACCINE 00:00:[address] [facility] SARS-COV-2 COVID-19 2021-03-28 Completed [facility] of PFIZER VACCINE 00:00:[address] [facility] SARS-COV-2 COVID-19 2021-03-28 Completed [facility] PFIZER VACCINE 00:00:[address] [facility] SARS-COV-2 COVID-19 2021-03-06 Completed [facility] of PFIZER VACCINE 00:00:[address] [facility] SARS-COV-2 COVID-19 2021-03-06 Completed [facility] of PFIZER VACCINE 00:00:[address] [facility] SARS-COV-2 COVID-19 2021-03-06 Completed [facility] PFIZER VACCINE 00:00:[address] [facility] SARS-COV-2 COVID-19 2021-03-06 Completed [facility] of PFIZER VACCINE 00:00:[address] [facility] SARS-COV-2 COVID-19 2021-03-06 Completed [facility] PFIZER VACCINE 00:00:00 [facility] SARS-COV-2 COVID-19 2021-03-06 Completed [facility] of PFIZER VACCINE 00:00:[address] [facility] SARS-COV-2 COVID-19 2021-03-06 Completed [facility] of PFIZER VACCINE 00:00:[address] [facility] SARS-COV-2 COVID-19 2021-03-06 Completed [facility] of PFIZER VACCINE 00:00:[address] [facility] SARS-COV-2 COVID-19 2021-03-06 Completed [facility] PFIZER VACCINE 00:00:[address] [facility] SARS-COV-2 COVID-19 2021-03-06 Completed [facility] PFIZER VACCINE 00:00:[address] [facility] SARS-COV-2 COVID-19 2021-03-06 Completed [facility] of PFIZER VACCINE 00:00:[address] [facility] SARS-COV-2 COVID-19 2021-03-06 Completed [facility] PFIZER VACCINE 00:00:[address] [facility] SARS-COV-2 COVID-19 2021-03-06 Completed [facility] of PFIZER VACCINE 00:00:[address] [facility] SARS-COV-2 COVID-19 2021-03-06 Completed [facility] PFIZER VACCINE 00:00:[address] [facility] SARS-COV-2 COVID-19 2021-03-06 Completed [facility] PFIZER VACCINE 00:00:[address] [facility] SARS-COV-2 COVID-19 2021-03-06 Completed [facility] PFIZER VACCINE 00:00:[address] [facility] SARS-COV-2 COVID-19 2021-03-06 Completed [facility] PFIZER VACCINE 00:00:[address] [facility] SARS-COV-2 COVID-19 2021-03-06 Completed [facility] PFIZER VACCINE 00:00:00 [facility] SARS-COV-2 COVID-19 2021-03-06 Completed [facility] of PFIZER VACCINE 00:00:[address] [facility] SARS-COV-2 COVID-19 2021-03-06 Completed [facility] PFIZER VACCINE 00:00:00 [facility] SARS-COV-2 COVID-19 2021-03-06 Completed [facility] of PFIZER VACCINE 00:00:00 [facility] SARS-COV-2 COVID-19 2021-03-06 Completed [facility] of PFIZER VACCINE 00:00:00 [facility] SARS-COV-2 COVID-19 2021-03-06 Completed [facility] PFIZER VACCINE 00:00:[address] [facility] SARS-COV-2 COVID-19 2021-03-06 Completed [facility] PFIZER VACCINE 00:00:00 [facility] SARS-COV-2 COVID-19 2021-03-06 Completed [facility] PFIZER VACCINE 00:00:00 [facility] SARS-COV-2 COVID-19 2021-03-06 Completed [facility] PFIZER VACCINE 00:00:00 [facility] SARS-COV-2 COVID-19 2021-03-06 Completed [facility] PFIZER VACCINE 00:00:00 [facility] SARS-COV-2 COVID-19 2021-03-06 Completed [facility] PFIZER VACCINE 00:00:00 [facility] SARS-COV-2 COVID-19 2021-03-06 Completed [facility] PFIZER VACCINE 00:00:00 [facility] SARS-COV-2 COVID-19 2021-03-06 Completed [facility] PFIZER VACCINE 00:00:00 [facility] SARS-COV-2 COVID-19 2021-03-06 Completed [facility] PFIZER VACCINE 00:00:00 [facility] SARS-COV-2 COVID-19 2021-03-06 Completed [facility] PFIZER VACCINE 00:00:00 [facility] SARS-COV-2 COVID-19 2021-03-06 Completed [facility] PFIZER VACCINE 00:00:00 [facility] SARS-COV-2 COVID-19 2021-03-06 Completed [facility] PFIZER VACCINE 00:00:00 [facility] SARS-COV-2 COVID-19 2021-03-06 Completed [facility] P[facility]ZER VACCINE 00:00:00 [facility] SARS-COV-2 COVID-19 2021-03-06 Completed [facility] PFIZER VACCINE 00:00:[address] [facility] SARS-COV-2 COVID-19 2021-03-06 Completed [facility] PFIZER VACCINE 00:00:[address] [facility] SARS-COV-2 COVID-19 2021-03-06 Completed [facility] PFIZER VACCINE 00:00:[address] [facility] SARS-COV-2 COVID-19 2021-03-06 Completed [facility] PFIZER VACCINE 00:00:[address] [facility] SARS-COV-2 COVID-19 2021-03-06 Completed [facility] PFIZER VACCINE 00:00:[address] [facility] SARS-COV-2 COVID-19 2021-03-06 Completed [facility] PFIZER VACCINE 00:00:00 [facility] SARS-COV-2 COVID-19 2021-03-06 Completed [facility] PFIZER VACCINE 00:00:[address] [facility] SARS-COV-2 COVID-19 2021-03-06 Completed [facility] PFIZER VACCINE 00:00:00 [facility] SARS-COV-2 COVID-19 2021-03-06 Completed [facility] PFIZER VACCINE 00:00:[address] [facility] SARS-COV-2 COVID-19 2021-03-06 Completed [facility] PFIZER VACCINE 00:00:00 [facility] SARS-COV-2 COVID-19 2021-03-06 Completed [facility] PFIZER VACCINE 00:00:[address] [facility] SARS-COV-2 COVID-19 2021-03-06 Completed [facility] PFIZER VACCINE 00:00:[address] [facility] SARS-COV-2 COVID-19 2021-03-06 Completed [facility] PFIZER VACCINE 00:00:[address] [facility] SARS-COV-2 COVID-19 2021-03-06 Completed [facility] PFIZER VACCINE 00:00:00 [facility] SARS-COV-2 COVID-19 2021-03-06 Completed [facility] PFIZER VACCINE 00:00:[address] [facility] SARS-COV-2 COVID-19 2021-03-06 Completed [facility] PFIZER VACCINE 00:00:[address] [facility] SARS-COV-2 COVID-19 2021-03-06 Completed [facility] PFIZER VACCINE 00:00:[address] [facility] SARS-COV-2 COVID-19 2021-03-06 Completed [facility] PFIZER VACCINE 00:00:[address] [facility] SARS-COV-2 COVID-19 2021-03-06 Completed [facility] PFIZER VACCINE 00:00:[address] [facility] SARS-COV-2 COVID-19 2021-03-06 Completed [facility] PFIZER VACCINE 00:00:[address] [facility] SARS-COV-2 COVID-19 2021-03-06 Completed [facility] PFIZER VACCINE 00:00:[address] [facility] SARS-COV-2 COVID-19 2021-03-06 Completed [facility] PFIZER VACCINE 00:00:[address] [facility] SARS-COV-2 COVID-19 2021-03-06 Completed [facility] PFIZER VACCINE 00:00:[address] [facility] SARS-COV-2 COVID-19 2021-03-06 Completed [facility] PFIZER VACCINE 00:00:[address] [facility] SARS-COV-2 COVID-19 2021-03-06 Completed [facility] PFIZER VACCINE 00:00:[address] [facility] SARS-COV-2 COVID-19 2021-03-06 Completed [facility] PFIZER VACCINE 00:00:[address] [facility] SARS-COV-2 COVID-19 2021-03-06 Completed [facility] PFIZER VACCINE 00:00:[address] [facility] SARS-COV-2 COVID-19 2021-03-06 Completed [facility] PFIZER VACCINE 00:00:[address] [facility] SARS-COV-2 COVID-19 2021-03-06 Completed [facility] PFIZER VACCINE 00:00:[address] [facility] SARS-COV-2 COVID-19 2021-03-06 Completed [facility] PFIZER VACCINE 00:00:00 [facility] SARS-COV-2 COVID-19 2021-03-06 Completed [facility] PFIZER VACCINE 00:00:00 [facility] SARS-COV-2 COVID-19 2021-03-06 Completed [facility] PFIZER VACCINE 00:00:[address] [facility] SARS-COV-2 COVID-19 2021-03-06 Completed [facility] PFIZER VACCINE 00:00:[address] [facility] SARS-COV-2 COVID-19 2021-03-06 Completed [facility] PFIZER VACCINE 00:00:[address] [facility] SARS-COV-2 COVID-19 2021-03-06 Completed [facility] PFIZER VACCINE 00:00:[address] [facility] SARS-COV-2 COVID-19 2021-03-06 Completed [facility] PFIZER VACCINE 00:00:[address] [facility] SARS-COV-2 COVID-19 2021-03-06 Completed [facility] PFIZER VACCINE 00:00:[address] [facility] SARS-COV-2 COVID-19 2021-03-06 Completed [facility] PFIZER VACCINE 00:00:[address] [facility] SARS-COV-2 COVID-19 2021-03-06 Completed [facility] PFIZER VACCINE 00:00:[address] [facility] SARS-COV-2 COVID-19 2021-03-06 Completed [facility] PFIZER VACCINE 00:00:[address] [facility] SARS-COV-2 COVID-19 2021-03-06 Completed [facility] PFIZER VACCINE 00:00:00 [facility] SARS-COV-2 COVID-19 2021-03-06 Completed [facility] PFIZER VACCINE 00:00:[address] [facility] SARS-COV-2 COVID-19 2021-03-06 Completed [facility] PFIZER VACCINE 00:00:[address] [facility] SARS-COV-2 COVID-19 2021-03-06 Completed [facility] PFIZER VACCINE 00:00:[address] [facility] SARS-COV-2 COVID-19 2021-03-06 Completed [facility] PFIZER VACCINE 00:00:[address] [facility] SARS-COV-2 COVID-19 2021-03-06 Completed [facility] PFIZER VACCINE 00:00:[address] [facility] SARS-COV-2 COVID-19 2021-03-06 Completed [facility] PFIZER VACCINE 00:00:00 [facility] SARS-COV-2 COVID-19 2021-03-06 Completed [facility] PFIZER VACCINE 00:00:[address] [facility] SARS-COV-2 COVID-19 2021-03-06 Completed [facility] PFIZER VACCINE 00:00:00 [facility] SARS-COV-2 COVID-19 2021-03-06 Completed [facility] PFIZER VACCINE 00:00:[address] [facility] SARS-COV-2 COVID-19 2021-03-06 Completed [facility] PFIZER VACCINE 00:00:[address] [facility] SARS-COV-2 COVID-19 2021-03-06 Completed [facility] PFIZER VACCINE 00:00:[address] [facility] SARS-COV-2 COVID-19 2021-03-06 Completed [facility] PFIZER VACCINE 00:00:[address] [facility] SARS-COV-2 COVID-19 2021-03-06 Completed [facility] PFIZER VACCINE 00:00:[address] [facility] SARS-COV-2 COVID-19 2021-03-06 Completed [facility] PFIZER VACCINE 00:00:[address] [facility] SARS-COV-2 COVID-19 2021-03-06 Completed [facility] PFIZER VACCINE 00:00:00 [facility] SARS-COV-2 COVID-19 2021-03-06 Completed [facility] PFIZER VACCINE 00:00:00 [facility] SARS-COV-2 COVID-19 2021-03-06 Completed [facility] PFIZER VACCINE 00:00:[address] [facility] SARS-COV-2 COVID-19 2021-03-06 Completed [facility] PFIZER VACCINE 00:00:[address] [facility] SARS-COV-2 COVID-19 2021-03-06 Completed [facility] PFIZER VACCINE 00:00:00 [facility] SARS-COV-2 COVID-19 2021-03-06 Completed [facility] PFIZER VACCINE 00:00:00 [facility] SARS-COV-2 COVID-19 2021-03-06 Completed [facility] PFIZER VACCINE 00:00:00 [facility] SARS-COV-2 COVID-19 2021-03-06 Completed [facility] PFIZER VACCINE 00:00:[address] [facility] SARS-COV-2 COVID-19 2021-03-06 Completed [facility] PFIZER VACCINE 00:00:[address] [facility] SARS-COV-2 COVID-19 2021-03-06 Completed [facility] PFIZER VACCINE 00:00:[address] [facility] SARS-COV-2 COVID-19 2021-03-06 Completed [facility] PFIZER VACCINE 00:00:[address] [facility] SARS-COV-2 COVID-19 2021-03-06 Completed [facility] PFIZER VACCINE 00:00:[address] [facility] SARS-COV-2 COVID-19 2021-03-06 Completed [facility] PFIZER VACCINE 00:00:[address] [facility] SARS-COV-2 COVID-19 2021-03-06 Completed [facility] PFIZER VACCINE 00:00:[address] [facility] SARS-COV-2 COVID-19 2021-03-06 Completed [facility] PFIZER VACCINE 00:00:[address] [facility] SARS-COV-2 COVID-19 2021-03-06 Completed [facility] PFIZER VACCINE 00:00:[address] [facility] SARS-COV-2 COVID-19 2021-03-06 Completed [facility] PFIZER VACCINE 00:00:[address] [facility] SARS-COV-2 COVID-19 2021-03-06 Completed [facility] PFIZER VACCINE 00:00:[address] [facility] SARS-COV-2 COVID-19 2021-03-06 Completed [facility] PFIZER VACCINE 00:00:[address] [facility] SARS-COV-2 COVID-19 2021-03-06 Completed [facility] PFIZER VACCINE 00:00:[address] [facility] SARS-COV-2 COVID-19 2021-03-06 Completed [facility] PFIZER VACCINE 00:00:[address] [facility] SARS-COV-2 COVID-19 2021-03-06 Completed [facility] PFIZER VACCINE 00:00:[address] [facility] SARS-COV-2 COVID-19 2021-03-06 Completed [facility] PFIZER VACCINE 00:00:[address] [facility] SARS-COV-2 COVID-19 2021-03-06 Completed [facility] PFIZER VACCINE 00:00:[address] [facility] SARS-COV-2 COVID-19 2021-03-06 Completed [facility] PFIZER VACCINE 00:00:[address] [facility] SARS-COV-2 COVID-19 2021-03-06 Completed [facility] PFIZER VACCINE 00:00:[address] [facility] SARS-COV-2 COVID-19 2021-03-06 Completed [facility] PFIZER VACCINE 00:00:[address] [facility] SARS-COV-2 COVID-19 2021-03-06 Completed [facility] PFIZER VACCINE 00:00:[address] [facility] SARS-COV-2 COVID-19 2021-03-06 Completed [facility] PFIZER VACCINE 00:00:[address] [facility] SARS-COV-2 COVID-19 2021-03-06 Completed [facility] PFIZER VACCINE 00:00:[address] [facility] SARS-COV-2 COVID-19 2021-03-06 Completed [facility] of PFIZER VACCINE 00:00:[address] [facility] SARS-COV-2 COVID-19 2021-03-06 Completed [facility] PFIZER VACCINE 00:00:[address] [facility] SARS-COV-2 COVID-19 2021-03-06 Completed [facility] of PFIZER VACCINE 00:00:[address] [facility] SARS-COV-2 COVID-19 2021-03-06 Completed [facility] PFIZER VACCINE 00:00:[address] [facility] SARS-COV-2 COVID-19 2021-03-06 Completed [facility] PFIZER VACCINE 00:00:[address] [facility] SARS-COV-2 COVID-19 2021-03-06 Completed [facility] PFIZER VACCINE 00:00:[address] [facility] SARS-COV-2 COVID-19 2021-03-06 Completed [facility] PFIZER VACCINE 00:00:00 [facility] SARS-COV-2 COVID-19 2021-03-06 Completed [facility] PFIZER VACCINE 00:00:[address] [facility] SARS-COV-2 COVID-19 2021-03-06 Completed [facility] of PFIZER VACCINE 00:00:[address] [facility] SARS-COV-2 COVID-19 2021-03-06 Completed [facility] PFIZER VACCINE 00:00:00 [facility] SARS-COV-2 COVID-19 2021-03-06 Completed [facility] of PFIZER VACCINE 00:00:[address] [facility] SARS-COV-2 COVID-19 2021-03-06 Completed [facility] of PFIZER VACCINE 00:00:[address] [facility] SARS-COV-2 COVID-19 2021-03-06 Completed [facility] PFIZER VACCINE 00:00:[address] [facility] SARS-COV-2 COVID-19 2021-03-06 Completed [facility] PFIZER VACCINE 00:00:[address] [facility] SARS-COV-2 COVID-19 2021-03-06 Completed [facility] PFIZER VACCINE 00:00:[address] [facility] SARS-COV-2 COVID-19 2021-03-06 Completed [facility] of PFIZER VACCINE 00:00:[address] [facility] SARS-COV-2 COVID-19 2021-03-06 Completed [facility] PFIZER VACCINE 00:00:[address] [facility] SARS-COV-2 COVID-19 2021-03-06 Completed [facility] of PFIZER VACCINE 00:00:[address] [facility] SARS-COV-2 COVID-19 2021-03-06 Completed [facility] PFIZER VACCINE 00:00:[address] [facility] SARS-COV-2 COVID-19 2021-03-06 Completed [facility] PFIZER VACCINE 00:00:[address] [facility] SARS-COV-2 COVID-19 2021-03-06 Completed [facility] of PFIZER VACCINE 00:00:[address] [facility] SARS-COV-2 COVID-19 2021-03-06 Completed [facility] PFIZER VACCINE 00:00:[address] [facility] SARS-COV-2 COVID-19 2021-03-06 Completed [facility] PFIZER VACCINE 00:00:00 [facility] SARS-COV-2 COVID-19 2021-03-06 Completed [facility] PFIZER VACCINE 00:00:[address] [facility] SARS-COV-2 COVID-19 2021-03-06 Completed [facility] PFIZER VACCINE 00:00:00 [facility] SARS-COV-2 COVID-19 2021-03-06 Completed [facility] PFIZER VACCINE 00:00:00 [facility] SARS-COV-2 COVID-19 2021-03-06 Completed [facility] PFIZER VACCINE 00:00:00 [facility] SARS-COV-2 COVID-19 2021-03-06 Completed [facility] PFIZER VACCINE 00:00:00 [facility] Vital Signs Vital Name Observation Time Observation Value Comments Source Systolic blood 2023-04-05 19:06:00 137 mm[Hg] [facility] pressure [facility] Diastolic blood 2023-04-05 19:06:00 82 mm[Hg] [facility] pressure [facility] Heart rate 2023-04-05 19:00:00 87 /min [facility] Body height 2023-04-05 19:00:00 167.6 cm [facility] Body weight 2023-04-05 19:00:00 125.737 kg [facility] BMI 2023-04-05 19:00:00 44.74 kg/m2 [facility] Oxygen saturation in 2023-04-05 19:00:00 98 /min [facility] blood by [facility] Pulse oximetry [facility] Systolic blood 2023-03-24 17:36:00 152 mm[Hg] [facility] pressure [facility] Diastolic blood 2023-03-24 17:36:00 84 mm[Hg] [facility] of pressure [facility] Heart rate 2023-03-24 17:36:00 93 /min [facility] Respiratory rate 2023-03-24 17:36:00 14 /min [facility] Body weight 2023-03-24 17:36:00 124.739 kg [facility] BMI 2023-03-24 17:36:00 44.39 kg/m2 [facility] Oxygen saturation in 2023-03-24 17:36:00 98 /min [facility] by [facility] Pulse oxim[facility] Systolic blood 2023-03-03 22:13:00 149 mm[Hg] [facility] Diastolic blood 2023-03-03 22:13:00 80 mm[Hg] [facility] Heart rate 2023-03-03 21:15:00 88 /min [facility] Body height 2023-03-03 21:15:00 167.6 cm [facility] Body weight 2023-03-03 21:15:00 133.221 kg [facility] BMI 2023-03-03 21:15:00 47.40 kg/m2 [facility] Oxygen saturation in 2023-03-03 21:15:00 96 /min [facility] Pulse oximetry [facility] Systolic blood 2023-03-02 18:45:00 132 mm[Hg] [facility] Diastolic blood 2023-03-02 18:45:00 58 mm[Hg] [facility] Heart rate 2023-03-02 18:45:00 80 /min [facility] Oxygen saturation in 2023-03-02 18:45:00 97 /min [facility] by [facility] Pulse oxim[facility] Respiratory rate 2023-03-02 18:39:00 25 /min [facility] Body temperature 2023-03-02 18:12:00 36.39 [place] [facility] Body height 2023-03-02 16:24:00 167.6 cm [facility] Body weight 2023-03-02 16:24:00 138.801 kg [facility] BMI 2023-03-02 16:24:00 49.39 kg/m2 [facility] Body height 2023-03-02 16:24:00 167.6 cm [facility] Body weight 2023-03-02 16:24:00 138.801 kg [facility] BMI 2023-03-02 16:24:00 49.39 kg/m2 [facility] Systolic blood 2023-02-17 17:32:00 127 mm[Hg] [facility] Diastolic blood 2023-02-17 17:32:00 81 mm[Hg] [facility] Heart rate 2023-02-17 17:32:00 91 /min [facility] Body temperature 2023-02-17 17:32:00 36.28 [facility] Respiratory rate 2023-02-17 17:32:00 14 /min [facility] Body weight 2023-02-17 17:32:00 133.358 kg [facility] BMI 2023-02-17 17:32:00 47.45 kg/m2 [facility] Oxygen saturation in 2023-02-17 17:32:00 97 /min [facility] [place] [facility] Systolic blood 2023-02-03 17:30:00 136 mm[Hg] [facility] Diastolic blood 2023-02-03 17:30:00 73 mm[Hg] [facility] Heart rate 2023-02-03 17:30:00 85 /min [facility] Body temperature 2023-02-03 17:30:00 36.22 [facility] Respiratory rate 2023-02-03 17:30:00 14 /min [facility] Body weight 2023-02-03 17:30:00 137.44 kg [facility] BMI 2023-02-03 17:30:00 48.91 kg/m2 [facility] Oxygen saturation in 2023-02-03 17:30:00 96 /min [facility] Pulse oximetry [facility] Systolic blood 2023-01-20 17:46:00 124 mm[Hg] [facility] Diastolic blood 2023-01-20 17:46:00 69 mm[Hg] [facility] Heart rate 2023-01-20 17:46:00 87 /min [facility] Body temperature 2023-01-20 17:46:00 36.83 [place] [facility] Respiratory rate 2023-01-20 17:46:00 14 /min [facility] Body weight 2023-01-20 17:46:00 137.44 kg [facility] BMI 2023-01-20 17:46:00 48.91 kg/m2 [facility] Oxygen saturation in 2023-01-20 17:46:00 97 /min [facility] P[facility] oxim[facility] Systolic blood 2023-01-13 19:21:00 125 mm[Hg] [facility] Diastolic blood 2023-01-13 19:21:00 77 mm[Hg] [facility] Heart rate 2023-01-13 19:11:00 86 /min [facility] Body temperature 2023-01-13 19:11:00 36.56 [place] [facility] Body height 2023-01-13 19:11:00 167.6 cm [facility] Body weight 2023-01-13 19:11:00 142.157 kg [facility] BMI 2023-01-13 19:11:00 50.58 kg/m2 [facility] Oxygen saturation in 2023-01-13 19:11:00 95 /min [facility] blood by [facility] Pulse oximetry [facility] Systolic blood 2023-01-07 17:50:00 152 mm[Hg] [facility] Diastolic blood 2023-01-07 17:50:00 70 mm[Hg] [facility] Heart rate 2023-01-07 17:50:00 78 /min [facility] Body temperature 2023-01-07 17:50:00 36.44 [place] [facility] Respiratory rate 2023-01-07 17:50:00 16 /min [facility] Body weight 2023-01-07 17:50:00 143.065 kg [facility] BMI 2023-01-07 17:50:00 50.91 kg/m2 [facility] Oxygen saturation in 2023-01-07 17:50:00 97 /min [facility] [place] [facility] Systolic blood 2022-12-24 17:45:00 166 mm[Hg] [facility] Diastolic blood 2022-12-24 17:45:00 86 mm[Hg] [facility] pressure [facility] Heart rate 2022-12-24 17:45:00 77 /min [facility] Body temperature 2022-12-24 17:45:00 36.11 [place] [facility] Respiratory rate 2022-12-24 17:45:00 20 /min [facility] Body weight 2022-12-24 17:45:00 141.749 kg [facility] BMI 2022-12-24 17:45:00 50.44 kg/m2 [facility] Oxygen saturation in 2022-12-24 17:45:00 99 /min [facility] Pulse oxim[facility] Systolic blood 2022-12-17 17:33:00 161 mm[Hg] [facility] Diastolic blood 2022-12-17 17:33:00 78 mm[Hg] [facility] Heart rate 2022-12-17 17:33:00 77 /min [facility] Body temperature 2022-12-17 17:33:00 36.83 [place] [facility] Respiratory rate 2022-12-17 17:33:00 16 /min [facility] Body weight 2022-12-17 17:33:00 144.924 kg [facility] BMI 2022-12-17 17:33:00 51.57 kg/m2 [facility] Oxygen saturation in 2022-12-17 17:33:00 96 /min [facility] [place] [facility] Systolic blood 2022-12-10 12:45:00 144 mm[Hg] [facility] Diastolic blood 2022-12-10 12:45:00 86 mm[Hg] [facility] Heart rate 2022-12-10 12:45:00 78 /min [facility] Body temperature 2022-12-10 12:45:00 36.89 [place] [facility] Respiratory rate 2022-12-10 12:45:00 16 /min [facility] Oxygen saturation in 2022-12-10 12:45:00 93 /min [facility] [place] [facility] Body height 2022-11-30 03:19:00 167.6 cm [facility] Body weight 2022-11-30 03:19:00 144.2 kg [facility] BMI 2022-11-30 03:19:00 51.31 kg/m2 [facility] Systolic blood 2022-12-02 18:00:00 132 mm[Hg] [facility] Diastolic blood 2022-12-02 18:00:00 75 mm[Hg] [facility] Heart rate 2022-12-02 18:00:00 76 /min [facility] Body temperature 2022-12-02 18:00:00 37.11 Keely [facility] Respiratory rate 2022-12-02 18:00:00 20 /min [facility] Oxygen saturation in 2022-12-02 18:00:00 97 /min [facility] [place] [facility] Body height 2022-11-30 03:19:00 167.6 cm [facility] Body weight 2022-11-30 03:19:00 144.2 kg [facility] BMI 2022-11-30 03:19:00 51.31 kg/m2 [facility] Systolic blood 2022-12-01 15:00:00 124 mm[Hg] [facility] Diastolic blood 2022-12-01 15:00:00 70 mm[Hg] [facility] Heart rate 2022-12-01 15:00:00 75 /min [facility] Body temperature 2022-12-01 15:00:00 37.28 Ke[facility] Respiratory rate 2022-12-01 15:00:00 20 /min [facility] Oxygen saturation in 2022-12-01 15:00:00 95 /min [facility] [place] [facility] Body height 2022-11-30 03:19:00 167.6 cm [facility] Body weight 2022-11-30 03:19:00 144.2 kg [facility] BMI 2022-11-30 03:19:00 51.31 kg/m2 [facility] Heart rate 2022-11-30 07:30:00 84 /min [facility] Body temperature 2022-11-30 07:30:00 37.39 Ke[facility] Respiratory rate 2022-11-30 07:30:00 24 /min [facility] Oxygen saturation in 2022-11-30 07:30:00 100 /min [facility] [place] [facility] Systolic blood 2022-11-30 03:45:00 134 mm[Hg] [facility] Diastolic blood 2022-11-30 03:45:00 90 mm[Hg] [facility] Body height 2022-11-30 03:19:00 167.6 cm [facility] Body weight 2022-11-30 03:19:00 144.2 kg [facility] BMI 2022-11-30 03:19:00 51.31 kg/m2 [facility] Systolic blood 2022-11-26 00:30:00 130 mm[Hg] [facility] Diastolic blood 2022-11-26 00:30:00 82 mm[Hg] [facility] Heart rate 2022-11-26 00:30:00 76 /min [facility] Respiratory rate 2022-11-26 00:30:00 24 /min [facility] Oxygen saturation in 2022-11-26 00:30:00 97 /min [facility] [place] [facility] Body temperature 2022-11-25 20:01:00 37.17 [facility] Body height 2022-11-25 20:01:00 167.6 cm [facility] Body weight 2022-11-25 20:01:00 144.244 kg [facility] BMI 2022-11-25 20:01:00 51.33 kg/m2 [facility] Systolic blood 2022-11-24 21:01:00 161 mm[Hg] [facility] Diastolic blood 2022-11-24 21:01:00 88 mm[Hg] [facility] Heart rate 2022-11-24 21:01:00 95 /min [facility] Body temperature 2022-11-24 21:01:00 36.33 Ke[facility] Respiratory rate 2022-11-24 21:01:00 20 /min [facility] Oxygen saturation in 2022-11-24 21:01:00 95 /min [facility] Systolic blood 2022-11-04 21:38:00 126 mm[Hg] [facility] Diastolic blood 2022-11-04 21:38:00 76 mm[Hg] [facility] Heart rate 2022-11-04 21:38:00 85 /min [facility] Body temperature 2022-11-04 21:38:00 36.56 Ke[facility] Respiratory rate 2022-11-04 21:38:00 20 /min [facility] Oxygen saturation in 2022-11-04 21:38:00 97 /min [facility] by [facility] Systolic blood 2022-10-29 20:46:00 120 mm[Hg] [facility] Diastolic blood 2022-10-29 20:46:00 80 mm[Hg] [facility] Heart rate 2022-10-29 20:46:00 89 /min [facility] Body temperature 2022-10-29 20:46:00 36.5 Ke[facility] Respiratory rate 2022-10-29 20:46:00 18 /min [facility] Oxygen saturation in 2022-10-29 20:46:00 97 /min [facility] by [facility] Systolic blood 2022-10-22 21:37:00 117 mm[Hg] [facility] Diastolic blood 2022-10-22 21:37:00 89 mm[Hg] [facility] Heart rate 2022-10-22 21:37:00 83 /min [facility] Body temperature 2022-10-22 21:37:00 36.33 Ke[facility] Respiratory rate 2022-10-22 21:37:00 18 /min [facility] Body height 2022-10-22 21:37:00 167.6 cm [facility] Body weight 2022-10-22 21:37:00 140.615 kg [facility] BMI 2022-10-22 21:37:00 50.04 kg/m2 [facility] Oxygen saturation in 2022-10-22 21:37:00 96 /min [facility] by [facility] Systolic blood 2022-10-13 19:08:00 136 mm[Hg] [facility] Diastolic blood 2022-10-13 19:08:00 78 mm[Hg] [facility] Heart rate 2022-10-13 19:08:00 79 /min [facility] Body temperature 2022-10-13 19:08:00 36.56 Keely [facility] Respiratory rate 2022-10-13 19:08:00 20 /min [facility] Oxygen saturation in 2022-10-13 19:08:00 99 /min [facility] by [facility] Systolic blood 2022-10-08 21:05:00 140 mm[Hg] [facility] Diastolic blood 2022-10-08 21:05:00 76 mm[Hg] [facility] Heart rate 2022-10-08 21:04:00 73 /min [facility] Body temperature 2022-10-08 21:04:00 36.61 Keely [facility] Respiratory rate 2022-10-08 21:04:00 20 /min [facility] Body weight 2022-10-08 21:04:00 140.842 kg [facility] BMI 2022-10-08 21:04:00 50.12 kg/m2 [facility] Oxygen saturation in 2022-10-08 21:04:00 98 /min [facility] by [facility] Systolic blood 2022-10-01 20:47:00 165 mm[Hg] [facility] Diastolic blood 2022-10-01 20:47:00 88 mm[Hg] [facility] Heart rate 2022-10-01 20:47:00 74 /min [facility] Body temperature 2022-10-01 20:47:00 36.67 Ke[facility] Respiratory rate 2022-10-01 20:47:00 20 /min [facility] Oxygen saturation in 2022-10-01 20:47:00 95 /min [facility] by [facility] Systolic blood 2022-09-23 19:21:00 132 mm[Hg] [facility] Diastolic blood 2022-09-23 19:21:00 76 mm[Hg] [facility] Heart rate 2022-09-23 19:21:00 92 /min [facility] Body temperature 2022-09-23 19:21:00 36.67 Ke[facility] Respiratory rate 2022-09-23 19:21:00 18 /min [facility] Oxygen saturation in 2022-09-23 19:21:00 99 /min [facility] by [facility] Systolic blood 2022-09-15 21:20:00 126 mm[Hg] [facility] Diastolic blood 2022-09-15 21:20:00 76 mm[Hg] [facility] Heart rate 2022-09-15 21:20:00 89 /min [facility] Body temperature 2022-09-15 21:20:00 36.67 Keely [facility] Respiratory rate 2022-09-15 21:20:00 18 /min [facility] Body weight 2022-09-15 21:20:00 140.615 kg [facility] BMI 2022-09-15 21:20:00 50.04 kg/m2 [facility] Oxygen saturation in 2022-09-15 21:20:00 99 /min [facility] by [facility] Systolic blood 2022-09-07 20:11:00 180 mm[Hg] [facility] Diastolic blood 2022-09-07 20:11:00 82 mm[Hg] [facility] Heart rate 2022-09-07 20:11:00 84 /min [facility] Body temperature 2022-09-07 20:11:00 36.67 Keely [facility] Respiratory rate 2022-09-07 20:11:00 22 /min [facility] Body height 2022-09-07 20:11:00 167.6 cm [facility] Body weight 2022-09-07 20:11:00 143.881 kg [facility] BMI 2022-09-07 20:11:00 51.20 kg/m2 [facility] Oxygen saturation in 2022-09-07 20:11:00 96 /min [facility] by [facility] Systolic blood 2022-09-01 19:25:00 136 mm[Hg] [facility] Diastolic blood 2022-09-01 19:25:00 83 mm[Hg] [facility] Heart rate 2022-09-01 19:25:00 78 /min [facility] Body temperature 2022-09-01 19:25:00 36.67 Keely [facility] Body height 2022-09-01 19:25:00 167.6 cm [facility] Body weight 2022-09-01 19:25:00 146.058 kg [facility] BMI 2022-09-01 19:25:00 51.97 kg/m2 [facility] Oxygen saturation in 2022-09-01 19:25:00 98 /min [facility] by [facility] Systolic blood 2022-08-18 16:07:00 133 mm[Hg] [facility] Diastolic blood 2022-08-18 16:07:00 78 mm[Hg] [facility] Heart rate 2022-08-18 16:07:00 78 /min [facility] Body temperature 2022-08-18 16:07:00 36.28 Keely [facility] Respiratory rate 2022-08-18 16:07:00 18 /min [facility] Body weight 2022-08-18 16:07:00 146.149 kg [facility] BMI 2022-08-18 16:07:00 52.00 kg/m2 [facility] Oxygen saturation in 2022-08-18 16:07:00 94 /min [facility] by [facility] Body temperature 2022-08-12 19:54:00 36.28 Keely [facility] Body height 2022-08-12 19:54:00 167.6 cm [facility] Body weight 2022-08-12 19:54:00 144.697 kg [facility] BMI 2022-08-12 19:54:00 51.49 kg/m2 [facility] Respiratory rate 2022-07-30 20:50:00 19 /min [facility] Oxygen saturation in 2022-07-30 20:50:00 95 /min [facility] by [facility] Systolic blood 2022-07-30 20:45:00 107 mm[Hg] [facility] Diastolic blood 2022-07-30 20:45:00 60 mm[Hg] [facility] Heart rate 2022-07-30 20:15:00 67 /min [facility] Body temperature 2022-07-30 20:00:00 36.22 Keely [facility] Body height 2022-07-30 17:45:00 167.6 cm [facility] Body weight 2022-07-30 17:45:00 143.4 kg [facility] BMI 2022-07-30 17:45:00 51.03 kg/m2 [facility] Systolic blood 2022-07-30 17:45:00 162 mm[Hg] [facility] Diastolic blood 2022-07-30 17:45:00 92 mm[Hg] [facility] Heart rate 2022-07-30 17:45:00 90 /min [facility] Body temperature 2022-07-30 17:45:00 37.06 Keely [facility] Respiratory rate 2022-07-30 17:45:00 18 /min [facility] Body height 2022-07-30 17:45:00 167.6 cm [facility] Body weight 2022-07-30 17:45:00 143.4 kg [facility] BMI 2022-07-30 17:45:00 51.03 kg/m2 [facility] Oxygen saturation in 2022-07-30 17:45:00 98 /min [facility] by [facility] Systolic blood 2022 20:49:00 128 mm[Hg] [facility] Diastolic blood 2022 20:49:00 85 mm[Hg] [facility] Heart rate 2022 20:49:00 85 /min [facility] [place] Body temperature 2022 20:49:00 36.28 Keely [facility] Body height 2022 20:49:00 167.6 cm [facility] Body weight 2022 20:49:00 144.244 kg [facility] BMI 2022 20:49:00 51.33 kg/m2 [facility] Systolic blood 2022-07-21 21:12:00 137 mm[Hg] [facility] Diastolic blood 2022-07-21 21:12:00 81 mm[Hg] [facility] Heart rate 2022-07-21 21:11:00 76 /min [facility] Body temperature 2022-07-21 21:11:00 36.56 Keely [facility] Respiratory rate 2022-07-21 21:11:00 16 /min [facility] Body height 2022-07-21 21:11:00 167.6 cm [facility] Body weight 2022-07-21 21:11:00 142.429 kg [facility] BMI 2022-07-21 21:11:00 50.68 kg/m2 [facility] Oxygen saturation in 2022-07-21 21:11:00 96 /min [facility] Arterial blood by [facility] Body temperature 2022-07-15 21:30:00 36.11 Keely [facility] Body height 2022-07-15 21:30:00 167.6 cm [facility] Body weight 2022-07-15 21:30:00 143.065 kg [facility] BMI 2022-07-15 21:30:00 50.91 kg/m2 [facility] [place] Body temperature 2022-07-13 14:33:00 36.06 Ke[facility] Body height 2022-07-13 14:33:00 167.6 cm [facility] [place] Body weight 2022-07-13 14:33:00 143.79 kg [facility] BMI 2022-07-13 14:33:00 51.17 kg/m2 [facility] Systolic blood 2022-07-06 22:25:00 122 mm[Hg] [facility] Diastolic blood 2022-07-06 22:25:00 68 mm[Hg] [facility] Heart rate 2022-07-06 22:25:00 92 /min [facility] Body temperature 2022-07-06 22:25:00 36.22 Ke[facility] Respiratory rate 2022-07-06 22:25:00 18 /min [facility] Body height 2022-07-06 22:25:00 167.6 cm [facility] Body weight 2022-07-06 22:25:00 144.516 kg [facility] BMI 2022-07-06 22:25:00 51.42 kg/m2 [facility] Oxygen saturation in 2022-07-06 22:25:00 99 /min [facility] by [facility] Body temperature 2022-07-05 15:46:00 35.67 Ke[facility] Body height 2022-07-05 15:46:00 14.2 cm [facility] Body weight 2022-07-05 15:46:00 142.838 kg [facility] BMI 2022-07-05 15:46:00 7059.91 kg/m2 [facility] Systolic blood 2022-07-02 02:15:00 142 mm[Hg] [facility] Diastolic blood 2022-07-02 02:15:00 76 mm[Hg] [facility] Heart rate 2022-07-02 02:15:00 69 /min [facility] Respiratory rate 2022-07-02 02:15:00 17 /min [facility] Oxygen saturation in 2022-07-02 02:15:00 98 /min [facility] by [facility] Body temperature 2022-07-01 21:40:00 36.89 Ke[facility] Body weight 2022-07-01 21:40:00 142.429 kg [facility] BMI 2022-07-01 21:40:00 50.68 kg/m2 [facility] Systolic blood 2022-07-01 19:32:00 132 mm[Hg] [facility] Diastolic blood 2022-07-01 19:32:00 82 mm[Hg] [facility] Heart rate 2022-07-01 19:31:00 75 /min [facility] Body height 2022-07-01 19:31:00 167.6 cm [facility] Body weight 2022-07-01 19:31:00 142.792 kg [facility] BMI 2022-07-01 19:31:00 50.81 kg/m2 [facility] Oxygen saturation in 2022-07-01 19:31:00 98 /min [facility] by [facility] Systolic blood 2022-06-30 19:15:00 147 mm[Hg] [facility] Diastolic blood 2022-06-30 19:15:00 82 mm[Hg] [facility] Heart rate 2022-06-30 19:15:00 88 /min [facility] Body height 2022-06-30 19:15:00 167.6 cm [facility] Body weight 2022-06-30 19:15:00 142.974 kg [facility] BMI 2022-06-30 19:15:00 50.87 kg/m2 [facility] Oxygen saturation in 2022-06-30 19:15:00 96 /min [facility] by [facility] Heart rate 2022-06-08 15:41:00 73 /min [facility] Respiratory rate 2022-06-08 15:41:00 21 /min [facility] Oxygen saturation in 2022-06-08 15:41:00 95 /min [facility] by [facility] Systolic blood 2022-06-08 15:40:00 123 mm[Hg] [facility] Diastolic blood 2022-06-08 15:40:00 72 mm[Hg] [facility] Body temperature 2022-06-08 14:30:00 36.11 Ke[facility] Body height 2022-05-25 15:25:00 167.6 cm [facility] Body weight 2022-05-25 15:25:00 145.2 kg [facility] BMI 2022-05-25 15:25:00 51.69 kg/m2 [facility] Systolic blood 2022-06-08 12:34:00 163 mm[Hg] [facility] Diastolic blood 2022-06-08 12:34:00 98 mm[Hg] [facility] Heart rate 2022-06-08 12:34:00 78 /min [facility] Body temperature 2022-06-08 12:34:00 36.78 Ke[facility] Respiratory rate 2022-06-08 12:34:00 18 /min [facility] Oxygen saturation in 2022-06-08 12:34:00 98 /min [facility] [place] [facility] Body height 2022-05-25 15:25:00 167.6 cm [facility] Body weight 2022-05-25 15:25:00 145.2 kg [facility] BMI 2022-05-25 15:25:00 51.69 kg/m2 [facility] Systolic blood 2022-05-14 19:35:00 157 mm[Hg] [facility] Diastolic blood 2022-05-14 19:35:00 91 mm[Hg] [facility] Heart rate 2022-05-14 19:35:00 84 /min [facility] Respiratory rate 2022-05-14 19:34:00 20 /min [facility] Body height 2022-05-14 19:34:00 167.6 cm [facility] Body weight 2022-05-14 19:34:00 145.151 kg [facility] BMI 2022-05-14 19:34:00 51.65 kg/m2 [facility] Oxygen saturation in 2022-05-14 19:34:00 95 /min [facility] [place] [facility] Systolic blood 2022-03-18 21:28:00 139 mm[Hg] [facility] Diastolic blood 2022-03-18 21:28:00 80 mm[Hg] [facility] Heart rate 2022-03-18 21:28:00 87 /min [facility] Respiratory rate 2022-03-18 21:24:00 18 /min [facility] Body height 2022-03-18 21:24:00 167.6 cm [facility] Body weight 2022-03-18 21:24:00 145.605 kg [facility] BMI 2022-03-18 21:24:00 51.81 kg/m2 [facility] Oxygen saturation in 2022-03-18 21:24:00 98 /min [facility] Arterial blood by [facility] Procedures Procedure Date / Time Performing Clinician Source Performed POCT HEMOGLOBIN A1C TEST 2023-04-05 00:00:00 Sima Lloyd [facility] FLEXIBLE SIGMOIDOSCOPY 2023-03-02 17:12:00 [facility] COLONOSCOPY WITH CONTROL 2023-03-02 17:12:00 Tracy Grijalva [facility] BLEEDING [facility] FLEXIBLE SIGMOIDOSCOPY 2023-03-02 16:48:59 Sima Lloyd [facility] (ENDO) [facility] FLEXIBLE SIGMOIDOSCOPY 2023-03-02 16:48:59 Sima Lloyd [facility] (ENDO) [facility] POCT GLUCOSE (AUTOMATED) 2023-03-02 16:29:00 Tracy Grijalva [facility] POCT GLUCOSE (AUTOMATED) 2023-03-02 16:29:00 Tracy Grijalva [facility] DAY SURGERY - ADC 2023-03-02 05:01:00 Doctor Faraz, [facility] [place] POCT HEMOGLOBIN A1C TEST 2023-01-13 00:00:00 Sima Lloyd [facility] NO SHOW OR MISSED 2022-12-17 17:29:19 Doctor Faraz, [facility] APPOINTMENT POLICY [facility] ACKNOWLEDGEMENT NOTICE OF PRIVACY 2022-12-17 17:28:47 Doctor Faraz, [facility] PRACTICES [facility] [place] ASSIGNMENT OF BENEFITS 2022-12-17 17:28:15 Doctor Faraz, [facility] Name Medical [place] CONSENT TO PHOTOGRAPH 2022-12-17 05:01:00 Doctor Faraz [facility] [place] REFERRAL- REQUEST/RESPONSE 2022-12-13 05:01:00 Doctor Unassigned , [facility] POCT GLUCOSE (AUTOMATED) 2022-12-10 13:48:00 Mrazek, Ayala [facility] POCT GLUCOSE (AUTOMATED) 2022-12-10 12:47:00 Mrazek, Ayala [facility] POCT GLUCOSE (AUTOMATED) 2022-12-10 09:34:00 Mrazek, Ayala [facility] POCT GLUCOSE (AUTOMATED) 2022-12-10 05:03:00 Mrazek, Ayala [facility] POCT GLUCOSE (AUTOMATED) 2022-12-10 01:32:00 Mrazek, Ayala [facility] POCT GLUCOSE (AUTOMATED) 2022-12-09 22:18:00 Mrazek, Ayala Uni [facility] POCT GLUCOSE (AUTOMATED) 2022-12-09 17:35:00 Mrazek, Ayala Uni [facility] POCT GLUCOSE (AUTOMATED) 2022-12-09 16:48:00 Mrazek, Ayala [facility] POCT GLUCOSE (AUTOMATED) 2022-12-09 13:20:00 Mrazek, Ayala [facility] POCT GLUCOSE (AUTOMATED) 2022-12-09 09:41:00 Mrazek, Ayala [facility] POCT GLUCOSE (AUTOMATED) 2022-12-09 05:31:00 Mrazek, Ayala [facility] POCT GLUCOSE (AUTOMATED) 2022-12-09 01:36:00 Mrazek, Ayala [facility] POCT GLUCOSE (AUTOMATED) 2022-12-08 22:20:00 Mrazek, Ayala [facility] POCT GLUCOSE (AUTOMATED) 2022-12-08 16:49:00 Mrazek, Ayala [facility] POCT GLUCOSE (AUTOMATED) 2022-12-08 03:00:00 Mrazek, Ayala [facility] POCT GLUCOSE (AUTOMATED) 2022-12-07 23:04:00 Mrazek, Ayala [facility] POCT GLUCOSE (AUTOMATED) 2022-12-07 21:35:00 Mrazek, Ayala [facility] POCT GLUCOSE (AUTOMATED) 2022-12-07 17:33:00 [facility]Ayala [facility] POCT GLUCOSE (AUTOMATED) 2022-12-07 13:37:00 MrazekAyala Uni versity [facility] POCT GLUCOSE (AUTOMATED) 2022-12-07 02:49:00 MrazekAyala [facility] POCT GLUCOSE (AUTOMATED) 2022-12-06 21:11:00 MrazekAyala Uni versity [facility] POCT GLUCOSE (AUTOMATED) 2022-12-06 17:27:00 MrazekAyala Uni versity [facility] POCT GLUCOSE (AUTOMATED) 2022-12-06 13:04:00 MraAyala ramirez [facility]The [facility] PHOSPHORUS 2022-12-06 11:44:00 Yoko [facility] MAGNESIUM 2022-12-06 11:44:00 Yoko [facility] POCT GLUCOSE (AUTOMATED) 2022-12-06 01:43:00 MrazeAyala sheth Allison [facility] POCT GLUCOSE (AUTOMATED) 2022-12-05 21:54:00 MrazeAyala sheth Allison [facility] POCT GLUCOSE (AUTOMATED) 2022-12-05 16:52:00 MraAyala ramirez versThe [facility] DUPLEX VENOUS LEGS 2022-12-05 15:03:15 Fanny Leos [facility] BILATERAL - BY VASCULAR [facility] POCT GLUCOSE (AUTOMATED) 2022-12-05 13:09:00 Ayala Collins versity [facility] PHOSPHORUS 2022-12-05 09:52:00 Yoko [facility] MAGNESIUM 2022-12-05 09:52:00 Yoko [facility] BASIC METABOLIC PANEL (NA, 2022-12-05 09:52:00 Que Babcock [facility] K, CL, CO2, GLUCOSE, BUN, Medica l Branch CREATININE, CA) CBC WITH DIFF 2022-12-05 09:52:00 Yoko [facility] POCT GLUCOSE (AUTOMATED) 2022-12-05 01:40:00 MraAyala ramirez Uni versity [facility] POCT GLUCOSE (AUTOMATED) 2022-12-04 22:58:00 MraAyala ramirez Uni vers[facility] POCT GLUCOSE (AUTOMATED) 2022-12-04 17:05:00 MraAyala ramirez Uni vers[facility] of [facility] POCT GLUCOSE (AUTOMATED) 2022-12-04 13:05:00 Ayala Collins Uni versity [facility] PHOSPHORUS 2022-12-04 10:11:00 Yoko [facility] MAGNESIUM 2022-12-04 10:11:00 Yoko [facility] BASIC METABOLIC PANEL (NA, 2022-12-04 10:11:00 Que Babcock [facility] K, CL, CO2, GLUCOSE, BUN, Medica l Branch CREATININE, CA) CBC WITH DIFF 2022-12-04 10:11:00 Yoko [facility] POCT GLUCOSE (AUTOMATED) 2022-12-04 09:14:00 Ayala Collins Uni versity [facility] POCT GLUCOSE (AUTOMATED) 2022-12-04 05:00:00 Ayala Collins Uni versity [facility] POCT GLUCOSE (AUTOMATED) 2022-12-04 01:09:00 MraAyala ramirez Uni versity of [facility] POCT GLUCOSE (AUTOMATED) 2022-12-03 21:47:00 MraAyala ramirez Uni versity [facility] POCT GLUCOSE (AUTOMATED) 2022-12-03 16:52:00 MrazekAyala Uni versity of [facility] POCT GLUCOSE (AUTOMATED) 2022-12-03 16:52:00 MrazekAyala Uni versity of [facility] POCT GLUCOSE (AUTOMATED) 2022-12-03 12:14:00 Mrazek Ayala Uni versity [facility] POCT GLUCOSE (AUTOMATED) 2022-12-03 12:14:00 MraAyala ramirez Uni vers[facility] of [facility] PHOSPHORUS 2022-12-03 09:20:00 Yoko [facility] MAGNESIUM 2022-12-03 09:20:00 Yoko [facility] BASIC METABOLIC PANEL (NA, 2022-12-03 09:20:00 dustin [facility] K, CL, CO2, GLUCOSE, BUN, Medica l Branch CREATININE, CA) CBC WITH DIFF 2022-12-03 09:20:00 Yoko [facility] PHOSPHORUS 2022-12-03 09:20:00 [facility] MAGNESIUM 2022-12-03 09:20:00 Yoko [facility] BASIC METABOLIC PANEL (NA, 2022-12-03 09:20:00 Yoko [facility] K, CL, CO2, GLUCOSE, BUN, Medica l Branch CREATININE, CA) CBC WITH DIFF 2022-12-03 09:20:00 dustin [facility] POCT GLUCOSE (AUTOMATED) 2022-12-03 09:18:00 MramatthewkAyala Uni versity of [facility] POCT GLUCOSE (AUTOMATED) 2022-12-03 09:18:00 MrazekAyala Uni versity of [facility] POCT GLUCOSE (AUTOMATED) 2022-12-03 05:26:00 Mrazek, Ayala Uni [facility] POCT GLUCOSE (AUTOMATED) 2022-12-03 05:26:00 Mrazek, Ayala [facility] POCT GLUCOSE (AUTOMATED) 2022-12-03 04:09:00 Mrazek, Ayala Uni [facility] POCT GLUCOSE (AUTOMATED) 2022-12-03 04:09:00 Mrazek, Ayala [facility] POCT GLUCOSE (AUTOMATED) 2022-12-03 02:29:00 Mrazek, Ayala [facility] POCT GLUCOSE (AUTOMATED) 2022-12-03 02:29:00 Mrazek, Ayala Uni [facility] POCT GLUCOSE (AUTOMATED) 2022-12-03 00:31:00 Mrazek, Ayala [facility] POCT GLUCOSE (AUTOMATED) 2022-12-03 00:31:00 Mrazek, Ayala Uni [facility] POCT GLUCOSE (AUTOMATED) 2022-12-03 00:31:00 Mrazek, Ayala [facility] POCT GLUCOSE (AUTOMATED) 2022-12-02 20:43:00 Mrazek, Ayala [facility] POCT GLUCOSE (AUTOMATED) 2022-12-02 20:43:00 Mrazek, Ayala [facility] POCT GLUCOSE (AUTOMATED) 2022-12-02 20:43:00 Mrazek, Ayala [facility] DEBRIDEMENT PERINEUM 2022-12-02 18:05:00 Dave Sandra [facility] of [facility] DEBRIDEMENT PERINEUM 2022-12-02 18:05:00 DaveSandra [facility] ity of [facility] POCT GLUCOSE (AUTOMATED) 2022-12-02 16:57:00 Mrazek, Ayala [facility] POCT GLUCOSE (AUTOMATED) 2022-12-02 16:57:00 Mrazek, Ayala [facility] POCT GLUCOSE (AUTOMATED) 2022-12-02 16:57:00 Mrazek, Ayala [facility] POCT GLUCOSE (AUTOMATED) 2022-12-02 15:50:00 Mrazek, Ayala [facility] POCT GLUCOSE (AUTOMATED) 2022-12-02 15:50:00 Mrazek, Ayala [facility] POCT GLUCOSE (AUTOMATED) 2022-12-02 15:50:00 Mrazek, Ayala [facility] POCT GLUCOSE (AUTOMATED) 2022-12-02 14:29:00 Mrazek, Ayala [facility] POCT GLUCOSE (AUTOMATED) 2022-12-02 14:29:00 Mrazek, Ayala [facility] POCT GLUCOSE (AUTOMATED) 2022-12-02 14:29:00 Mrazek, Ayala [facility] POCT GLUCOSE (AUTOMATED) 2022-12-02 12:47:00 Mrazek, Ayala [facility] POCT GLUCOSE (AUTOMATED) 2022-12-02 12:47:00 Mrazek, Ayala [facility] POCT GLUCOSE (AUTOMATED) 2022-12-02 12:47:00 Mrazek, Ayala [facility] PHOSPHORUS 2022-12-02 09:38:00 Uddustin [facility] MAGNESIUM 2022-12-02 09:38:00 Uddustin [facility] BASIC METABOLIC PANEL (NA, 2022-12-02 09:38:00 Yoko [facility] K, CL, CO2, GLUCOSE, BUN, Medica l Branch CREATININE, CA) CBC WITH DIFF 2022-12-02 09:38:00 Uddin, [facility] PHOSPHORUS 2022-12-02 09:38:00 Uddin, [facility] MAGNESIUM 2022-12-02 09:38:00 Uddustin, [facility] BASIC METABOLIC PANEL (NA, 2022-12-02 09:38:00 Yoko, [facility] K, CL, CO2, GLUCOSE, BUN, Medica l Branch CREATININE, CA) CBC WITH DIFF 2022-12-02 09:38:00 Uddustin, [facility] PHOSPHORUS 2022-12-02 09:38:00 Uddin, [facility] MAGNESIUM 2022-12-02 09:38:00 Uddsutin, [facility] BASIC METABOLIC PANEL (NA, 2022-12-02 09:38:00 Tamikodustin, [facility] K, CL, CO2, GLUCOSE, BUN, Medica [facility] Branch CREATININE, CA) CBC WITH DIFF 2022-12-02 09:38:00 Yoko [facility] POCT GLUCOSE (AUTOMATED) 2022-12-02 09:35:00 MramatthewkAyala Uni [facility] [place] [facility] POCT GLUCOSE (AUTOMATED) 2022-12-02 09:35:00 MramatthewkAyala Uni versity [facility] POCT GLUCOSE (AUTOMATED) 2022-12-02 09:35:00 MraAyala ramirez [facility]The [facility] POCT GLUCOSE (AUTOMATED) 2022-12-02 08:16:00 MraAyala ramirez versity [facility] POCT GLUCOSE (AUTOMATED) 2022-12-02 08:16:00 MramatthewkAyala Uni versity [facility] POCT GLUCOSE (AUTOMATED) 2022-12-02 08:16:00 Mrazek, Ayala [facility] POCT GLUCOSE (AUTOMATED) 2022-12-02 07:10:00 Mrazek, Ayala [facility] POCT GLUCOSE (AUTOMATED) 2022-12-02 07:10:00 Mrazek, Ayala [facility] POCT GLUCOSE (AUTOMATED) 2022-12-02 07:10:00 Mrazek, Ayala [facility] POCT GLUCOSE (AUTOMATED) 2022-12-02 06:10:00 Mrazek, Ayala [facility] POCT GLUCOSE (AUTOMATED) 2022-12-02 06:10:00 Mrazek, Ayala [facility] POCT GLUCOSE (AUTOMATED) 2022-12-02 06:10:00 Mrazek, Ayala [facility] POCT GLUCOSE (AUTOMATED) 2022-12-02 05:32:00 Mrazek, Ayala [facility] POCT GLUCOSE (AUTOMATED) 2022-12-02 05:32:00 Mrazek, Ayala [facility] POCT GLUCOSE (AUTOMATED) 2022-12-02 05:32:00 Mrazek, Ayala [facility] POCT GLUCOSE (AUTOMATED) 2022-12-02 04:52:00 Mrazek, Ayala [facility] POCT GLUCOSE (AUTOMATED) 2022-12-02 04:52:00 Mrazek, Ayala [facility] POCT GLUCOSE (AUTOMATED) 2022-12-02 04:52:00 Mrazek, Ayala [facility] POCT GLUCOSE (AUTOMATED) 2022-12-02 01:25:00 Mrazek, Ayala [facility] POCT GLUCOSE (AUTOMATED) 2022-12-02 01:25:00 Mrazek, Ayala [facility] POCT GLUCOSE (AUTOMATED) 2022-12-02 01:25:00 Mrazek, Ayala [facility] POCT GLUCOSE (AUTOMATED) 2022-12-01 22:21:00 Mrazek, Ayala [facility] POCT GLUCOSE (AUTOMATED) 2022-12-01 22:21:00 Mrazek, Ayala Uni versity of [facility] POCT GLUCOSE (AUTOMATED) 2022-12-01 22:21:00 Mrazek, Ayala Uni [facility] POCT GLUCOSE (AUTOMATED) 2022-12-01 21:51:00 Mrazek, Ayala Uni [facility] POCT GLUCOSE (AUTOMATED) 2022-12-01 21:51:00 Mrazek, Ayala Uni [facility] POCT GLUCOSE (AUTOMATED) 2022-12-01 21:51:00 Mrazek, Ayala Uni [facility] POCT GLUCOSE (AUTOMATED) 2022-12-01 21:38:00 Mrazek, Ayala Uni [facility] POCT GLUCOSE (AUTOMATED) 2022-12-01 21:38:00 Mrazek, Ayala Uni [facility] POCT GLUCOSE (AUTOMATED) 2022-12-01 21:38:00 Mrazek, Ayala Uni versity of [facility] FUNGUS (ROUTINE) CULTURE 2022-12-01 17:02:00 Maggie Dumont versity of [facility] TISSUE 2022-12-01 17:02:00 Golisbon [facility] CULTURE(AEROBIC/ANAEROBIC) [facility] FUNGUS (ROUTINE) CULTURE 2022-12-01 17:02:00 [facility] TISSUE 2022-12-01 17:02:00 Tim [facility] CULTURE(AEROBIC/ANAEROBIC) [facility] FUNGUS (ROUTINE) CULTURE 2022-12-01 17:02:00 [facility] TISSUE 2022-12-01 17:02:00 Golisbon [facility] CULTURE(AEROBIC/ANAEROBIC) [facility] FUNGUS (ROUTINE) CULTURE 2022-12-01 16:59:00 Maggie Dumont Uni versity [facility] TISSUE 2022-12-01 16:59:00 Tim [facility] CULTURE(AEROBIC/ANAEROBIC) [facility] FUNGUS (ROUTINE) CULTURE 2022-12-01 16:59:00 Maggie Dumont Uni versity [facility] TISSUE 2022-12-01 16:59:00 [facility] CULTURE(AEROBIC/ANAEROBIC) [facility] FUNGUS (ROUTINE) CULTURE 2022-12-01 16:59:00 [facility] TISSUE 2022-12-01 16:59:00 [facility] [place] CULTURE(AEROBIC/ANAEROBIC) [facility] VBG+VCOOX+NA+K+GLU+CA2+ 2022-12-01 16:22[facility]+NA+K+GLU+CA2+ 2022-12-01 16:22:00 Dennis [facility] WOUND DEBRIDEMENT 2022-12-01 15:28:00 [facility] 2022-12-01 15:28:00 [facility] 2022-12-01 15:26:00 [facility] 2022-12-01 15:26[facility]00 [facility]22-12-01 15:26:00 [facility] ([id number]) (ALB,T.PRO,[facility] T,BU/BC,ALT,AST,ALK PHOS) BASIC METABOLIC PANEL (NA, 2022-12-01 15:26:00 [facility] K, CL, CO2, GLUCOSE, BUN, [facility] CREATININE, CA) CBC WITH DIFF 2022-12-01 15:26:00 Anne [facility] PHOSPHORUS 2022-12-01 15:26:00 [facility] MAG[facility]UM 2022-12-01 15:26:00 [facility] HEPATIC FUNCTION PANEL 2022-12-01 15:26:00 [facility] ([id number]) (ALB,T.PRO,[facility] T,BU/BC,ALT,AST,ALK PHOS) BASIC METABOLIC PANEL (NA, 2022-12-01 15:26:00 Anne [facility] K, CL, CO2, GLUCOSE, BUN, Medica l Branch CREATININE, CA) CBC WITH DIFF 2022-12-01 15:26:00 Anne [facility] PHOSPHORUS 2022-12-01 15:26:00 Anne [facility] MAGNESIUM 2022-12-01 15:26:00 Anne [facility] HEPATIC FUNCTION PANEL 2022-12-01 15:26:00 Maggie Dumont [facility] ([id number]) (ALB,T.PRO,[facility] T,BU/BC,ALT,AST,ALK PHOS) BASIC METABOLIC PANEL (NA, 2022-12-01 15:26:00 Anne [facility] K, CL, CO2, GLUCOSE, BUN, Medica l Branch CREATININE, CA) CBC WITH DIFF 2022-12-01 15:26:00 Anne [facility] POCT GLUCOSE (AUTOMATED) 2022-12-01 12:57:00 MraAyala ramirez Uni [facility] POCT GLUCOSE (AUTOMATED) 2022-12-01 12:57:00 MraAyala ramirez [facility] POCT GLUCOSE (AUTOMATED) 2022-12-01 12:57:00 MraAyala ramirez Uni [facility] POCT GLUCOSE (AUTOMATED) 2022-12-01 11:22:00 MramatthewkAyala [facility] POCT GLUCOSE (AUTOMATED) 2022-12-01 11:22:00 MrazekAyala Uni [facility] POCT GLUCOSE (AUTOMATED) 2022-12-01 11:22:00 MramatthewkAyala [facility]The [facility] POCT GLUCOSE (AUTOMATED) 2022-12-01 10:54:00 MramatthewkAyala [facility]The [facility] POCT GLUCOSE (AUTOMATED) 2022-12-01 10:54:00 MraAyala ramirez [facility]The [facility] POCT GLUCOSE (AUTOMATED) 2022-12-01 10:54:00 MraAyala ramirez Uni [facility] POCT GLUCOSE (AUTOMATED) 2022-12-01 09:52:00 Mrazek, Ayala [facility] POCT GLUCOSE (AUTOMATED) 2022-12-01 09:52:00 Mrazek, Ayala [facility] POCT GLUCOSE (AUTOMATED) 2022-12-01 09:52:00 Mrazek, Ayala [facility] POCT GLUCOSE (AUTOMATED) 2022-12-01 04:12:00 Mrazek, Ayala [facility] POCT GLUCOSE (AUTOMATED) 2022-12-01 04:12:00 Mrazek, Ayala [facility] POCT GLUCOSE (AUTOMATED) 2022-12-01 04:12:00 Mrazek, Ayala [facility] POCT GLUCOSE (AUTOMATED) 2022-12-01 01:04:00 Mrazek, Ayala [facility] POCT GLUCOSE (AUTOMATED) 2022-12-01 01:04:00 Mrazek, Ayala [facility] POCT GLUCOSE (AUTOMATED) 2022-12-01 01:04:00 Mrazek, Ayala [facility] POCT GLUCOSE (AUTOMATED) 2022-11-30 21:18:00 Mrazek, Ayala [facility] POCT GLUCOSE (AUTOMATED) 2022-11-30 21:18:00 Mrazek, Ayala [facility] POCT GLUCOSE (AUTOMATED) 2022-11-30 21:18:00 Mrazek, Ayala [facility] POCT GLUCOSE (AUTOMATED) 2022-11-30 21:18:00 Mrazek, Ayala [facility] POCT GLUCOSE (AUTOMATED) 2022-11-30 17:18:00 Mrazek, Ayala [facility] POCT GLUCOSE (AUTOMATED) 2022-11-30 17:18:00 Mrazek, Ayala [facility] POCT GLUCOSE (AUTOMATED) 2022-11-30 17:18:00 Mrazek, Ayala [facility] POCT GLUCOSE (AUTOMATED) 2022-11-30 17:18:00 Mrazek, Ayala [facility] POCT GLUCOSE (AUTOMATED) 2022-11-30 15:52:00 Mrazeaugust, Ayala Cooper [facility] POCT GLUCOSE (AUTOMATED) 2022-11-30 15:52:00 Mrazek, Ayala Cooper [facility] POCT GLUCOSE (AUTOMATED) 2022-11-30 15:52:00 Mrazek, Ayala Cooper [facility] POCT GLUCOSE (AUTOMATED) 2022-11-30 15:52:00 Mrazek, Ayala Cooper [facility] POCT GLUCOSE (AUTOMATED) 2022-11-30 13:28:00 Mrazek, Ayala Cooper [facility] POCT GLUCOSE (AUTOMATED) 2022-11-30 13:28:00 Mrazek, Ayala Cooper [facility] POCT GLUCOSE (AUTOMATED) 2022-11-30 13:28:00 Mrazek, Ayala Cooper [facility] POCT GLUCOSE (AUTOMATED) 2022-11-30 13:28:00 MrazeaugustAyala Allison [facility] PHOSPHORUS 2022-11-30 08:21:00 Jewel [facility] MAGNESIUM 2022-11-30 08:21:00 [facility] (NA, 2022-11-30 08:21:00 Maribel Holloway [facility] K, CL, CO2, GLUCOSE, BUN, Medica l Branch CREATININE, CA) CBC WITH DIFF 2022-11-30 08:21:00 Jewel [facility] AC PANEL 20 + LACTIC ACID 2022-11-30 08:21:00 Maribel Holloway [facility] PHOSPHORUS 2022-11-30 08:21:00 Jewel [facility] MAGNESIUM 2022-11-30 08:21:00 [facility]OLIC PANEL (NA, 2022-11-30 08:21:00 Maribel Holloway [facility] K, CL, CO2, GLUCOSE, BUN, Medica l Branch CREATININE, CA) CBC WITH DIFF 2022-11-30 08:21:00 Jewel [facility] AC PANEL 20 + LACTIC ACID 2022-11-30 08:21:00 Maribel Holloway Un [facility] PHOSPHORUS 2022-11-30 08:21:00 Jewel [facility] MAGNESIUM 2022-11-30 08:21:00 Jewel [facility] BASIC METABOLIC PANEL (NA, 2022-11-30 08:21:00 Maribel Holloway [facility] K, CL, CO2, GLUCOSE, BUN, Medica [facility] Branch CREATININE, CA) CBC WITH DIFF 2022-11-30 08:21:00 Jewel [facility] AC PANEL 20 + LACTIC ACID 2022-11-30 08:21:00 [facility] 2022-11-30 08:21[facility] 2022-11-30 08:21:00 Jewel [facility] BASIC METABOLIC PANEL (NA, 2022-11-30 08:21:00 Maribel Holloway [facility] K, CL, CO2, GLUCOSE, BUN, Medica l Branch CREATININE, CA) CBC WITH DIFF 2022-11-30 08:21:00 Jewel [facility] AC PANEL 20 + LACTIC ACID 2022-11-30 08:21:00 Maribel Holloway [facility] POCT GLUCOSE (AUTOMATED) 2022-11-30 08:19:00 MrazekAyala [facility]The [facility] POCT GLUCOSE (AUTOMATED) 2022-11-30 08:19:00 Mrazek, Ayala Cooper [facility] POCT GLUCOSE (AUTOMATED) 2022-11-30 08:19:00 MrazekAyala Uni versity [facility] POCT GLUCOSE (AUTOMATED) 2022-11-30 08:19:00 MrazekAyala versThe [facility] ASPIRATE OR ABSCESS 2022-11-30 05:55:00 MrazekAyala [facility] CULTURE(AEROBIC/ANAEROBIC) Medic wy Branch FUNGUS (ROUTINE) CULTURE 2022-11-30 05:55:00 Mrazek, Ayala Cooper versity of [facility] ASPIRATE OR ABSCESS 2022-11-30 05:55:00 MrazekAyala [facility] CULTURE(AEROBIC/ANAEROBIC) Medic wy Branch FUNGUS (ROUTINE) CULTURE 2022-11-30 05:55:00 Mrazek, Ayala Allison [facility] ASPIRATE OR ABSCESS 2022-11-30 05:55:00 Mrazek, Ayala [facility] CULTURE(AEROBIC/ANAEROBIC) Medic al Branch FUNGUS (ROUTINE) CULTURE 2022-11-30 05:55:00 Mrazek, Ayala Allison [facility] ASPIRATE OR ABSCESS 2022-11-30 05:55:00 Mrazek, Ayala [facility] CULTURE(AEROBIC/ANAEROBIC) Medic al Branch FUNGUS (ROUTINE) CULTURE 2022-11-30 05:55:00 Mrazek, Ayala Allison [facility] ABG+COOX+NA+K+GLU+CA2+ 2022-11-30 05:47:00 Mrazek, Ayala Cassidy [facility] ABG+COOX+NA+K+GLU+CA2+ 2022-11-30 05:47:00 Mrazek, Ayala [facility] ABG+COOX+NA+K+GLU+CA2+ 2022-11-30 05:47:00 Mrazek, Ayala [facility] INCISION AND DRAINAGE 2022-11-30 04:42:00 Mrazek, Ayala [facility] DEBRIDEMENT PERINEUM 2022-11-30 04:42:00 MrazekAyala [facility] INCISION AND DRAINAGE 2022-11-30 04:42:00 Mrazek, [facility]ala [facility] 2022-11-30 04:42:00 Mrazek, Ayala [facility] AC PANEL 20 + LACTIC ACID 2022-11-30 04:19:00 GreenMaribel Un [facility]The [facility] AC PANEL 20 + LACTIC ACID 2022-11-30 04:19:00 GreenMaribel Un iversThe [facility] AC PANEL 20 + LACTIC ACID 2022-11-30 04:19:00 GreenMarleein Un iversThe [facility] AC PANEL 20 + LACTIC ACID 2022-11-30 04:19:00 Maribel Holloway [facility] CREATININE, URINE RANDOM 2022-11-30 04:12:00 Mrazek, Ayala [facility] SODIUM, URINE RANDOM 2022-11-30 04:12:00 Mrazek, Ayala [facility] CREATININE, URINE RANDOM 2022-11-30 04:12:00 Mrazek, Ayala [facility] SODIUM, URINE RANDOM 2022-11-30 04:12:00 Mrazek, Ayala [facility] CREATININE, URINE RANDOM 2022-11-30 04:12:00 Mrazek, Ayala [facility] SODIUM, URINE RANDOM 2022-11-30 04:12:00 Mrazek, Ayala [facility] CREATININE, URINE RANDOM 2022-11-30 04:12:00 Mrazek, Ayala [facility] SODIUM, URINE RANDOM 2022-11-30 04:12:00 Mrazek, Ayala [facility] MRSA / MSSA SCREEN BY PCR, 2022-11-30 03:58:00 [facility] MRSA / MSSA SCREEN BY PCR, 2022-11-30 03:58:00 Green, [facility]ibel [facility] MRSA / MSSA SCREEN BY PCR, 2022-11-30 03:58:00 Green, [facility]ibel [facility] MRSA / MSSA SCREEN BY PCR, 2022-11-30 03:58:00 [facility]Maribel [facility] POCT GLUCOSE (AUTOMATED) 2022-11-30 03:18:00 Mrazek, Ayala [facility] POCT GLUCOSE (AUTOMATED) 2022-11-30 03:18:00 Mrazek, Ayala [facility] POCT GLUCOSE (AUTOMATED) 2022-11-30 03:18:00 Mrazek, [facility] POCT GLUCOSE (AUTOMATED) 2022-11-30 03:18:00 Mrazek, Ayala [facility] URINE CULTURE 2022-11-30 00:37:00 Mrazek, [facility] URINE CULTURE 2022-11-30 00:37:00 Mrazek, [facility] URINE CULTURE 2022-11-30 00:37:00 Dennis [facility] VITAMIN D, 25-OH 2022-11-30 00:28:[address] [facility] LACTIC ACID WHOLE BLOOD 2022-11-30 00:28:00 Cecile Agudelo Uni versThe [facility] VITAMIN D, 25-OH 2022-11-30 00:28:[address] [facility] LACTIC ACID WHOLE BLOOD 2022-11-30 00:28:00 Cecile Agudelo [facility] versThe [facility] VITAMIN D, 25-OH 2022-11-30 00:28:[address] [facility] LACTIC ACID WHOLE BLOOD 2022-11-30 00:28:00 Cecile Agudelo [facility] VITAMIN D, 25-OH 2022-11-30 00:28:[address] [facility] LACTIC ACID WHOLE BLOOD 2022-11-30 00:28:00 Cecile Agudelo versThe [facility] POCT GLUCOSE (AUTOMATED) 2022-11-29 22:17:00 Cecile Agudelo Un iversThe [facility] POCT GLUCOSE (AUTOMATED) 2022-11-29 22:17:00 Cecile Agudelo iversThe [facility] POCT GLUCOSE (AUTOMATED) 2022-11-29 22:17:00 Cecile Agudelo Un iversThe [facility] POCT GLUCOSE (AUTOMATED) 2022-11-29 22:17:00 Ceciel Agudelo Un iversThe [facility] BETA HYDROXY-BUTYRATE 2022-11-29 22:07:00 Ayala Collins [facility] HB ABO GROUPING 2022-11-29 22:07:00 Dennis [facility] BETA HYDROXY-BUTYRATE 2022-11-29 22:07:00 Ayala Collins [facility] HB ABO GROUPING 2022-11-29 22:07:00 Dennis [facility] BETA HYDROXY-BUTYRATE 2022-11-29 22:07:00 Ayala Collins [facility] HB ABO GROUPING 2022-11-29 22:07:00 Ayala Collins [facility] BETA HYDROXY-BUTYRATE 2022-11-29 22:07:00 Ayala Collins [facility] HB ABO GROUPING 2022-11-29 22:07:00 Ayala Collins [facility] POCT GLUCOSE (AUTOMATED) 2022-11-29 21:05:00 Cecile Agudelo Un iversity [facility] POCT GLUCOSE (AUTOMATED) 2022-11-29 21:05:00 Cecile Agudelo Un iversity [facility] POCT GLUCOSE (AUTOMATED) 2022-11-29 21:05:00 Cecile Agudelo Un iversity [facility] POCT GLUCOSE (AUTOMATED) 2022-11-29 21:05:00 Cecile Agudelo Un iversity [facility] BLOOD CULTURE SCREEN 2022-11-29 20:57:00 Cecile Agudelo Univer sity of [facility] BLOOD CULTURE SCREEN 2022-11-29 20:57:00 Cecile Agudelo Univer sity of [facility] BLOOD CULTURE SCREEN 2022-11-29 20:57:00 Cecile Agudelo Univer sity of [facility] BLOOD CULTURE SCREEN 2022-11-29 20:57:00 Cecile Agudelo Univer sity of [facility] LACTIC ACID WHOLE BLOOD 2022-11-29 20:56:00 Cecile Agudelo Uni versity of [facility] LACTIC ACID WHOLE BLOOD 2022-11-29 20:56:00 Cecile Agudelo Uni versity of [facility] LACTIC ACID WHOLE BLOOD 2022-11-29 20:56:00 Cecile Agudelo Uni versity of [facility] LACTIC ACID WHOLE BLOOD 2022-11-29 20:56:00 Cecile Agudelo Uni versity of [facility] CT ABDOMEN PELVIS WO 2022-11-29 18:15:11 Cecile Agudelo [facility] [place] CONTRAST [facility] CT ABDOMEN PELVIS WO 2022-11-29 18:15:11 Cecile Agudelo [facility] [place] CONTRAST [facility] CT ABDOMEN PELVIS WO 2022-11-29 18:15:11 Cecile Agudelo [facility] CONTRAST [facility] CT ABDOMEN PELVIS WO 2022-11-29 18:15:11 Cecile Agudelo [facility] CONTRAST [facility] LIPASE 2022-11-29 17:05:00 Cecile Agudelo [facility] HEPATIC FUNCTION PANEL 2022-11-29 17:05:00 Cecile Agudelo [facility] ([id number]) (ALB,T.PRO,BILI Medical Branch T,BU/BC,ALT,AST,ALK PHOS) BASIC METABOLIC PANEL (NA, 2022-11-29 17:05:00 Cecile Agudelo [facility] K, CL, CO2, GLUCOSE, BUN, Medica l Branch CREATININE, CA) IRON PANEL 2022-11-29 17:05:00 Dennis [facility] o f [facility] CBC WITH DIFF 2022-11-29 17:05:00 Cecile Agudelo [facility] GLYCOSYLATED HEMOGLOBIN 2022-11-29 17:05:00 Dennis [facility] (A1C) [facility] PROTHROMBIN TIME / INR 2022-11-29 17:05:[address] [facility] ACTIVATED PARTIAL THRMPLAS 2022-11-29 17:05:00 Cecile Agudelo [facility] URINALYSIS 2022-11-29 17:05:00 Cecile Agudelo [facility] RAPID INFLUENZA A/B 2022-11-29 17:05:00 Cecile Agudelo [facility] COVID-19 (ID NOW RAPID 2022-11-29 17:05:00 Cecile Agudelo [facility] TESTING) Medical Branch LAB ONLY COVID 2022-11-29 17:05:00 Cecile Agudelo [facility] INTERPRETATION [facility] LIPASE 2022-11-29 17:05:00 Cecile Agudelo [facility] HEPATIC FUNCTION PANEL 2022-11-29 17:05:00 Cecile Agudelo [facility] ([id number]) (ALB,T.PRO,BILI [facility] T,BU/BC,ALT,AST,ALK PHOS) BASIC METABOLIC PANEL (NA, 2022-11-29 17:05:00 Cecile Agudelo [facility] K, CL, CO2, GLUCOSE, BUN, Medica l Branch CREATININE, CA) IRON PANEL 2022-11-29 17:05:00 Dennis [facility] CBC WITH DIFF 2022-11-29 17:05:00 Cecile Agudelo [facility] GLYCOSYLATED HEMOGLOBIN 2022-11-29 17:05:00 Dennis [facility] ([facility]) [facility] PROTHROMBIN TIME / INR 2022-11-29 17:05:[address] [facility] ACTIVATED PARTIAL THRMPLAS 2022-11-29 17:05:00 Cecile Agudelo [facility] URINALYSIS 2022-11-29 17:05:00 Cecile Agudelo [facility] RAPID INFLUENZA A/B 2022-11-29 17:05:00 Cecile Agudelo [facility] COVID-19 (ID NOW RAPID 2022-11-29 17:05:00 Cecile Agudelo [facility] TESTING) Medical [place] LAB ONLY COVID 2022-11-29 17:05:00 Cecile Agudelo [facility] INTERPRETATION [facility] LIPASE 2022-11-29 17:05:00 Cecile Agudelo [facility] HEPATIC FUNCTION PANEL 2022-11-29 17:05:00 [id number] (ALB,T.PRO,BILI Medical Branch T,BU/BC,ALT,AST,ALK PHOS) BASIC METABOLIC PANEL (NA, 2022-11-29 17:05:00 Cecile Agudelo [facility] K, CL, CO2, GLUCOSE, BUN, Medica l Branch CREATININE, CA) IRON PANEL 2022-11-29 17:05:00 Dennis [facility] CBC WITH DIFF 2022-11-29 17:05:00 Cecile Agudelo [facility] GLYCOSYLATED HEMOGLOBIN 2022-11-29 17:05:00 Dennis [facility] (A1C) [facility] PROTHROMBIN TIME / INR 2022-11-29 17:05:[address] [facility] ACTIVATED PARTIAL THRMPLAS 2022-11-29 17:05:00 Cecile Agudelo [facility] URINALYSIS 2022-11-29 17:05:00 Cecile Agudelo [facility] RAPID INFLUENZA A/B 2022-11-29 17:05:00 Cecile Agudelo [facility] COVID-19 (ID NOW RAPID 2022-11-29 17:05:00 Cecile Agudelo [facility] TESTING) Medical Branch LAB ONLY COVID 2022-11-29 17:05:00 Cecile Agudelo [facility] INTERPRETATION [facility] LIPASE 2022-11-29 17:05:00 Cecile Agudelo [facility] HEPATIC FUNCTION PANEL 2022-11-29 17:05:00 Cecile Agudelo [facility] ([id number]) (ALB,T.PRO,BILI [facility] T,BU/BC,ALT,AST,ALK PHOS) BASIC METABOLIC PANEL (NA, 2022-11-29 17:05:00 Cecile Agudelo [facility] K, CL, CO2, GLUCOSE, BUN, Medica l Branch CREATININE, CA) IRON PANEL 2022-11-29 17:05:00 Ayala Collins [place] o f [facility] CBC WITH DIFF 2022-11-29 17:05:00 Cecile Agudelo [facility] GLYCOSYLATED HEMOGLOBIN 2022-11-29 17:05:00 Ayala Collins [facility] (A1C) [facility] PROTHROMBIN TIME / INR 2022-11-29 17:05:[address] [facility] ACTIVATED PARTIAL THRMPLAS 2022-11-29 17:05:00 Cecile Agudelo [facility] URINALYSIS 2022-11-29 17:05:00 Cecile Agudelo [facility] RAPID INFLUENZA A/B 2022-11-29 17:05:00 Cecile Agudelo [facility] COVID-19 (ID NOW RAPID 2022-11-29 17:05:00 Cecile [facility]udelo [facility] [place] [facility]) Medical Branch LAB ONLY COVID 2022-11-29 17:05:00 Cecile Agudelo [facility] INTERPRETATION [facility] POCT GLUCOSE (AUTOMATED) 2022-11-29 16:49:00 Cecile [facility]ud[facility] POCT GLUCOSE (AUTOMATED) 2022-11-29 16:49:00 Cecile [facility]udelo iversThe [facility] POCT GLUCOSE (AUTOMATED) 2022-11-29 16:49:00 Cecile [facility]udelo iversThe [facility] POCT GLUCOSE (AUTOMATED) 2022-11-29 16:49:00 Cecile [facility]ud[facility] CONSENT/REFUSAL FOR 2022-11-29 16:16:00 Doctor Faraz, [facility] DIAGNOSIS [facility] CONSENT/REFUSAL FOR 2022-11-29 16:16:00 Doctor Faraz [facility] DIAGNOSIS AND TREATMENT [facility] CONSENT/REFUSAL FOR 2022-11-29 16:16:00 Doctor Faraz, [facility] DIAGNOSIS AND TREATMENT [facility] CONSENT/REFUSAL FOR 2022-11-29 16:16:00 Doctor Faraz, [facility] DIAGNOSIS AND TREATMENT [facility] CRITICAL CARE 2022-11-29 16:12:00 Cecile Agudelo [facility] CRITICAL CARE 2022-11-29 16:12:00 Cecile Agudelo [facility] CRITICAL CARE 2022-11-29 16:12:00 Cecile Agudelo [facility] CRITICAL CARE 2022-11-29 16:12:00 Cecile Agudelo [facility] HOSPITAL ADMISSION 2022-11-29 05:01:[address] [facility] Name [facility] HOSPITAL ADMISSION 2022-11-29 05:01:[address] [facility] Name [facility] HOSPITAL ADMISSION 2022-11-29 05:01:00 Doctor Faraz [facility] [place] [facility] HOSPITAL ADMISSION 2022-11-29 05:01:[address] [facility] CT ANGIOGRAM 2022-11-25 22:14:00 Elina Sorensen [facility] ABDOMEN/PELVIS Medical Branch XR KNEE 3 VW LEFT 2022-11-25 21:27:00 Elina Sorensen [facility] URINALYSIS 2022-11-25 21:10:00 Elina Sorensen [facility] TROPONIN I 2022-11-25 20:24:00 Elina Sorensen [facility] CBC WITH DIFF 2022-11-25 20:24:00 Elina Sorensen [facility] N-TERMINAL PRO-BNP 2022-11-25 20:24:00 Elina Sorensen [facility] CONSENT/REFUSAL FOR 2022-11-25 19:54:12 Doctor Unassigned, [facility] DIAGNOSIS AND TREATMENT [facility] PATIENT FINANCIAL 2022-10-29 20:28:56 Doctor Unassigned, [facility] POLICY [facility] ASPIRATE OR ABSCESS 2022-09-23 22:12:00 Art Garcia [facility] CULTURE(AEROBIC/ANAEROBIC) Medic wy Branch WOUND/ASPIRATE OR ABSCESS 2022-09-23 22:12:00 Art Garcia [facility] CULTURE Medical [place] ASPIRATE OR ABSCESS 2022-09-07 20:44:00 Art Garcia [facility] CULTURE(AEROBIC/ANAEROBIC) Medic wy Branch WOUND/ASPIRATE OR ABSCESS 2022-09-07 20:44:00 Art Garcia [facility] COMP. METABOLIC PANEL 2022-09-01 20:36:00 Jill Barrett [facility] ([id number]) [facility] CBC WITH DIFF 2022-09-01 20:36:00 Jill Barrett [facility] INTUBATION 2022-07-30 19:06:00 Adal Marrero [facility] Praful [facility] MASS EXCISION 2022-07-30 18:32:00 Dudley Waddell [facility] POCT GLUCOSE (AUTOMATED) 2022-07-30 18:06:00 Dudley Waddell [facility] POCT GLUCOSE (AUTOMATED) 2022-07-30 18:06:00 Dudley Waddell U [facility] ASSIGNMENT OF BENEFITS 2022-07-30 17:21:43 Doctor Kendrassmisa, [facility] MR ANKLE RIGHT W WO 2022-07-08 15:26:48 Marian Castillo [facility] CONTRAST A Medical Branch XR FOOT 3+ VW BILATERAL 2022-07-05 15:13:00 Marian Castillo [facility] A Medical Branch XR ANKLE 3+ VW RIGHT 2022-07-02 02:00:12 Art Barry Un [facility] DUPLEX VENOUS LEG RIGHT - 2022-07-01 23:40:56 Krissy Griffin [facility] BY VASCULAR LAB [facility] CONSENT/REFUSAL FOR 2022-07-01 21:32:20 Doctor Faraz, [facility] DIAGNOSIS AND TREATMENT [place] [facility] [place] US HEAD NECK 2022-06-24 20:52:00 [facility] POCT GLUCOSE (AUTOMATED) 2022-06-08 15:05:00 Ely Saxena [facility] COLONOSCOPY 2022-06-08 13:25:00 Ely Saxena [facility] COLONOSCOPY (ENDO) 2022-06-08 12:58:[facility] 2022-06-08 12:58:[address] [facility] POCT GLUCOSE (AUTOMATED) 2022-06-08 12:34:00 Ely Saxena [facility] POCT GLUCOSE (AUTOMATED) 2022-06-08 12:34:00 Ely Saxena [facility] DAY SURGERY - ADC 2022-06-08 05:01:00 Doctor Faraz [facility] AUTHORIZATION TO RELEASE 2022-05-14 05:01:00 Doctor Faraz, [facility] TO [facility] AUTHORIZATION TO RELEASE 2022-05-14 05:01:00 Doctor Unassigned, [facility] PHI TO [facility] Encounters Start End Encounter Admission Attending Care Care Encounter Source Date/Time Date/Time Type Type Clinicians Facility Department ID 2021-06-30 Emergency [facility] [id number] Univers 06:46:16 ity [facility] 2021-06-30 Outpatient SCOTT RUSSELL [facility] OBO 1 [id number] Univers 04:10:20 SCOTT RUSSELL ity [facility] 2021-06-29 [facility] [id number] Univers 16:26:12 KALINA ity [facility] 2021-06-29 [facility] [id number] Univers 16:12:55 KALINA ity [facility] 2021-06-29 [facility] [id number] Univers 16:12:53 KALINA ity [facility] 2021-06-29 Emergency [facility] [id number] Univers 08:33:39 ity [facility] 2021-06-29 Emergency [facility] [id number] Univers 03:43:21 ity [facility] 2021-06-28 Emergency [facility] [id number] Univers 20:24:29 ity [facility] 2021-06-25 Outpatient SYSTEM, [facility] JOÃO [id number] 09:45:33 PROVIDER Teddy bang 2023-05-09 2023-05-09 Outpatient Tess LLOYD [facility] [id number] Univers 00:00:00 00:00:00 SIMA ity [facility] 2023-05-05 2023-05-05 Outpatient Tess GRIJALVA [facility] [id number] Univers 13:15:00 13:15:00 TRACY ity [facility] 2023-04-27 2023-04-27 Outpatient Tess GRUBER [facility] [id number] Univers 15:30:00 15:30:00 JESSICA y [facility] 2023-04-21 2023-04-21 [facility] [id number] Univers 00:00:00 00:00:00 [facility] [id number] it y of [place] [id number] Adrian as DOMINGUEZ?BLEA [id number] Wy pili CARRENO [address] [facility] OFFICE [facility] 2023-04-18 2023-04-18 Outpatient R KENDALLMARIOYoana [facility] [id number] Univers 11:30:00 11:30:00 LOPEZ itshauna [facility] 2023-04-14 2023-04-14 Outpatient R PREMA [facility] [id number] Univers 00:00:00 00:00:00 SIMA montemayor [facility] 2023-04-12 2023-04-12 [facility] [id number] Univers 00:00:00 00:00:00 SIMAKELLY montemayor [facility] 2023-04-07 2023-04-07 Telephone [facility] [phone] [id number] Univers 00:00:00 00:00:[address] [facility] [id number] it y [facility] 4.2.7.2.686 Adrian as DOMINGUEZ?BLEA [id number] [address] OFFICE [facility] 2023-04-06 2023-04-06 Outpatient R YASMANI [facility] [id number] Univers 15:45:00 15:45:00 JESSICA itshauna [facility] 2023-04-06 2023-04-06 Telephone [facility] [id number] Univers 00:00:00 00:00:00 Sima HEALTH [id number] it y of [place] 4.2.7.2.686 Adrian as DOMINGUEZ?BLEA [id number] Wy pili ESTEVEZ [address] [place] [address] OFFICE [facility] 2023-04-05 2023-04-05 Rug [facility], Ang - Db [facility] 1.2.840.1 [id number] Univers 15:00:00 15:15:00 Visit Roxie Lloydthia HEALTH [id number] ity of [place] 4.2.7.2.686 Adrian as DOMINGUEZ?BLEA [id number] Wy pili CARRENO [address] [facility] OFFICE [facility] 2023-04-05 2023-04-05 [facility] [id number] Univers 14:00:00 14:50:06 SIMA montemayor [facility] 2023-04-05 2023-04-05 Office [facility] [id number] Univers 14:00:00 14:50:06 Visit Sima RIOS [id number] it y of [place] 4.2.7.2.686 Adrian as DOMINGUEZ?BLEA [id number] [address] OFFICE [facility] 2023-04-05 2023-04-05 Telephone [facility] [id number] Univers 00:00:00 00:00:00 Sima HEALTH 350.1.13.10 it y of [place] 4.2.7.2.686 Adrian as DOMINGUEZ?BLEA [id number] [address] OFFICE [facility] 2023-03-24 2023-03-24 Out[facility] [id number] Univers 12:30:00 23:59:00 [facility] 2023-03-24 2023-03-24 Hospital RADHA Dave [id number] Univers 12:30:00 23:59:00 Encounter Sandra ALEXANDRE 350.1.13.10 ity [facility] 4.2.7.2.686 Adrian as [id number] [facility] [address] [place] 2023-03-23 2023-03-23 Outpatient [facility] [id number] Univers 11:30:00 11:30:00 ARSEN ity [facility] 2023-03-17 2023-03-17 [facility] [id number] Univers 15:00:00 15:00:00 JESSICA itshauna [facility] 2023-03-17 2023-03-17 Telephone Paulo COLBERT .2.840.11 4 [id number] Univers 00:00:00 00:00:00 , Dom Dang HEALTH 350.1.13.10 i ty of [facility] 4.2.7.2.[id number] [address] 2023-03-14 2023-03-14 Outpatient R MIKEY, [facility] [id number] Univers 11:15:00 11:15:00 LOPEZ shauna [facility] 2023-03-10 2023-03-10 Telephone [facility] 1.2.840.11 [id number] Univers 00:00:00 00:00:00 , Dom Dang [facility] [id number] i ty of [facility] 4.2.7.2.[id number] [address] 2023-03-09 2023-03-09 Outpatient [facility] [id number] Univers 11:30:00 11:30:00 ARSEN sim [facility] 2023-03-08 2023-03-08 [facility]patient [facility] [id number] Univers 11:45:00 12:11:00 SIMA [facility] 2023-03-08 2023-03-08 Rug [facility], [facility] 1.2.840.1 [id number] Univers 11:45:00 12:11:[address] [facility] 350.1.13.10 sim varghese [place] 4.2.7.2.686 Adrian as DOMINGUEZ?BLEA [id number] [facility] [address] [place] MEDICAL OFFICE [facility] 2023-03-07 2023-03-07 Outpatient [facility] [id number] Univers 12:30:00 12:30:00 MARK shauna [facility] 2023-03-04 2023-03-04 Refill [facility] [id number] [id number] Univers 00:00:00 00:00:[address] [facility] 350.1.13.10 it y of [place] 4.2.7.2.686 Adrian as DOMINGUEZ?BLEA [id number] [facility] [address] [place] MEDICAL OFFICE BUILDING 2023-03-03 2023-03-03 Outpatient [facility] [id number] Univers 16:00:00 17:07:17 SIMA ity [facility] 2023-03-032023-03-03 [address]thia [facility] 1.2.840.114 [id number] Univers 16:00:00 17:07:17 Visit Tracy Grijalva 350.1.13.[address] [facility] 4.2.7.2.686 Adrian as DOMINGUEZ?BLEA [id number] [address] OFFICE [facility] 2023-03-03 2023-03-03 Telephone [facility] [id number] Univers 00:00:00 00:00:00 Sima HEALTH 350.1.13.10 it y of [place] 4.2.7.2.686 Adrian as DOMINGUEZ?BLEA [id number] [address] OFFICE [facility] 2023-03-02 2023-03-02 Outpatient R RUDI [facility] BARRY [id number] Univers 11:20:00 14:00:00 TRACY sim [facility] 2023-03-02 2023-03-02 [facility] 1.2.840.114 [id number] Univers 11:20:00 14:00:00 Encounter Tracy JACOME 350.1.13.10 [place] [id number] [address] 2023-03-02 2023-03-02 Surgery [facility] Club 1.2.840.114 [id number] Univers 11:49:00 12:33:00 Tracy JACOME 350.1.13.10 i ty of [place].2.[place] [id number] [address] 2023-03-02 2023-03-02 Orders Doctor DOM 1.2.840.114 [id number] Univers 00:00:00 00:00:00 Only Unassigned, ALEXANDRE 350.1.13.10 ity of [place] [facility] 4.2.7.2.686 Adrian as [id number] [address] 2023-02-28 2023-02-28 [facility] [id number] Univers 15:00:00 15:00:00 SIMA montemayor [facility] 2023-02-25 2023-02-[address] [facility] 1.2.844.593 [id number] Univers 00:00:00 00:00:00 Sima HEALTH 350.1.13.10 it y of [place] 4.2.7.2.686 Adrian as DOMINGUEZ?BLEA [id number] Wy pili [address] MEDICAL OFFICE BUILDING 2023-02-24 2023-02-24 Outpatient R RUDI, [facility] [id number] Univers 15:00:00 15:00:00 TRACY shauna [facility] 2023-02-23 2023-02-23 Outpatient R WALDEMAR, [facility] [id number] Univers 09:00:00 09:00:00 ARSEN shauna [facility] 2023-02-17 2023-02-17 [facility] [id number] Univers 12:30:00 23:59:00 [facility] 2023-02-17 2023-02-17 [facility] RADHA Guzman 1.2.336.398 [id number] Univers 12:30:00 23:59:00 Encounter Mark SCHROEDER 350.1.13.10 ity [facility] 4.2.7.2.686 Adrian as [id number] [address] 2023-02-03 2023-02-03 [facility] RADHA Head 1.2.130.554 [id number] Univers 11:06:24 23:59:00 Encounter Maggi SCHROEDER 350.1.13.10 ity [facility] 4.2.7.2.686 Adrian as [id number] [address] 2023-02-03 2023-02-03 Outpatient R [facility] [id number] Univers 11:06:24 23:59:00 CRISTHIANAugust montemayor [facility] 2023-02-03 2023-02-03 Telephone NAVEEN Medeiros 1.2.840.114 [id number] Univers 00:00:00 00:00:00 Arsen Y HEALTH 350.1.13.10 i ty of [facility] 4.2.7.2.[place] [id number] [facility] [address] 2023-02-03 2023-02-[address] [facility] 1.2.840.114 [id number] Univers 00:00:00 00:00:00 , Benny HEALTH 350.1.13.10 it y of [place] RO[place] [id number] [facility] [address] OFFICE BUILDING 2023-01-28 2023-01-28 Outpatient R ABDULKADIR [facility] [id number] Univers 13:45:00 13:45:00 KENDRA perezy o f [facility] 2023-01-27 2023-01-27 Outpatient R RUDI [facility] [id number] Univers 14:00:00 15:48:08 TRACY montemayor [facility] 2023-01-27 2023-01-27 Outpatient Tess GRIJALVA [facility] [id number] Univers 14:00:00 14:00:00 TRACY [facility] 2023-01-26 2023-01-26 [facility] 1.2.447.429 [id number] Univers 00:00:00 00:00:00 [facility] 350.1.13.10 it y of [place] 4.2.7.2.686 Adrian as DOMINGUEZ?BLEA [id number] [address] MEDICAL OFFICE [facility] 2023-01-21 2023-01-21 Outpatient R [facility] [id number] Univers 12:30:00 12:30:00 ity [facility] 2023-01-20 2023-01-20 Outpatient R BIRDIE [facility] [id number] Univers 10:37:13 23:59:00 MAGGI montemayor [facility] 2023-01-20 2023-01-20 [facility] Sandra Dave 1.2.840.114 [id number] Univers 10:37:13 23:59:00 Encounter Maggi Head 350.1.13.1 0 ity of [facility] 4.2.7.2.686 Adrian as [phone] [address] 2023-01-20 2023-01-20 Telephone [facility] 1.2.840.114 1 [id number] Univers 00:00:00 00:00:00 Kendra JACOME 350.1.13.10 ity of [place].2.[place] PROF[place] [id number] Wy pili SANCHEZ 188 [facility] 2023-01-13 2023-01-13 [facility], Ang - [facility] 1.2.840.1 14 [id number] Univers 15:15:00 15:30:00 Visit Jeanie Lloyda HEALTH 350.1.13.10 ity of [place] 4.2.7.2.686 Adrian as DOMINGUEZ?BLEA [id number] Wy pili ESTEVEZ [address] [place] MEDICAL OFFICE [facility] 2023-01-13 2023-01-13 Outpatient R PREMA [facility] [id number] Univers 14:00:00 15:04:44 SIMA ity [facility] 2023-01-13 2023-01-13 Office [facility] 1.2.840.114 [id number] Univers 14:00:00 15:04:44 Visit Sima HEALTH 350.1.13.10 it y [facility] 4.2.7.2.686 Adrian as DOMINGUEZ?BLEA [id number] [facility] [address] [place] MEDICAL OFFICE [facility] 2023-01-08 2023-01-08 Refill [facility] 1.2.840.114 [id number] Univers 00:00:00 00:00:00 Sima HEALTH 350.1.13.10 it y [address] [facility] 4.2.7.2.686 Adrian as DOMINGUEZ?BLEA [id number] Wy dicwy EV [address] [place] MEDICAL OFFICE BUILDING 2023-01-07 2023-01-07 Outpatient R NOEL KRISHNAMURTHY [facility] [id number] Univers 10:01:55 23:59:00 ity of [facility] 2023-01-07 2023-01-07 [facility] Noel Krishnamurthy 1.2.840.114 1 [id number] Univers 10:01:55 23:59:00 Encounter ALEXANDRE 350.1.13.10 ity [facility] 4.2.7.2.686 Adrian as [id number] [address] 2023-01-05 2023-01-05 [facility] 1.2.840.114 [id number] Univers 00:00:00 00:00:00 Sima HEALTH 350.1.13.10 it y of [place] 4.2.7.2.686 Adrian as DOMINGUEZ?BLEA [id number] [address] OFFICE [facility] 2023-01-04 2023-01-04 [facility] 1.2.840.114 [id number] Univers 00:00:00 00:00:00 Sima HEALTH 350.1.13.10 it y of [place] 4.2.7.2.686 Adrian as DOMINGUEZ?BLEA [id number] [address] 2022-12-30 2022-12-30 Outpatient Tess GRUBER [facility] [id number] Univers 14:45:00 14:45:00 JESSICA y [facility] 2022-12-24 2022-12-24 Outpatient Tess DAVE [facility] [id number] Univers 12:30:00 23:59:00 SANDRA [facility] 2022-12-24 2022-12-24 Hospital RADHA Dave 1.2.840.114 [id number] Univers 12:30:00 23:59:00 Encounter Sandra SCHROEDER 350.1.13.10 ity [facility] 4.2.7.2.686 Adrian as [id number] [address] 2022-12-22 2022-12-22 Telephone DOM Fierro 1.2.840.114 10 [id number] Univers 00:00:00 00:00:00 Brandy SCHROEDER 350.1.13.10 i ty of [facility] 4.2.7.2.686 Adrian as [id number] [address] 2022-12-17 2022-12-17 Outpatient NOEL HINTON [facility] [id number] Univers 12:26:32 23:59:00 ity [facility] 2022-12-17 2022-12-17 [facility] Raghu Noel Audi SALAZAR 1.2.840.114 1 [id number] Univers 12:26:32 23:59:00 Encounter ALEXANDRE 350.1.13.10 ity of [facility] 4.2.7.2.686 Adrian as [id number] [facility] [address] 2022-12-16 2022-12-16 Telephone DOM Fierro 1.2.840.114 10 [id number] Univers 00:00:00 00:00:00 Brandy SCHROEDER 350.1.13.10 i ty of [facility] 4.2.7.2.686 Adrian as [id number] [facility] [address] 2022-12-15 2022-12-15 Telephone Paulo HODGE 1.2.840.11 4 [id number] Univers 00:00:00 00:00:00 , Dom Dang [facility] 350.1.13.10 i ty of CL[place] [id number] [facility] [address] 2022-12-13 2022-12-13 Transition ESTELA Finch 1.2.840.114 10 [id number] Univers 00:00:00 00:00:00 of Care Genevieve HENSON 350.1.13.10 i ty of [place].2.7.2.[place] [id number] [facility] [address] 2022-12-13 2022-12-13 Orders Doctor FERNANDES 1.2.840.114 [id number] Univers 00:00:00 00:00:00 Only Unassigned, ALEXANDRE 350.1.13.10 ity of [place] [facility] 4.2.7.2.686 Adrian as [id number] [facility] [address] 2022-11-29 2022-12-10 Inpatient U TENZIN [facility] BARRY [id number] Univers 11:21:00 12:15:00 SANDRA montemayor [facility] 2022-11-29 2022-12-10 Hospital Cecile Agudelo 1.2.840. 114 [id number] Univers 11:21:00 12:15:00 Encounter Ayala Collins 350.1.13.10 ity of Sandra Dave [place] [address].2.7.2.686 [place] [id number] [facility] [address] 2022-12-10 2022-12-10 Telephone DOM Fierro 1.2.840.114 10 [id number] Univers 00:00:00 00:00:00 Brandy Pulido ALEXANDRE 350.1.13.10 i ty of [facility] 4.2.7.2.686 Adrian as [id number] [facility] [address] 2022-12-08 2022-12-08 Outpatient R [facility] [id number] Univers 11:00:00 11:00:00 ARSEN ity [facility] 2022-12-02 2022-12-02 Surgery TenzinRADHA 1.2.840.114 [id number] Univers 11:50:00 14:00:00 Sandra ALEXANDRE 350.1.13.10 it y of [place] [address].2.7.2.686 Adrian as [id number] [facility] [address] 2022-12-01 2022-12-01 Surgery RADHA Dumont 1.2.840.114 [id number] Univers 10:00:00 11:43:00 Maggie ALEXANDRE 350.1.13.10 it [place] [address]...2.686 [place] [id number] [facility] [address] 2022-11-29 2022-11-30 Surgery Ayala Collins 1.2.840.114 10 [id number] Univers 23:30:00 02:41:00 ALEXANDRE 350.1.13.10 it y of [place] [address]..7.2.686 Adrian as [id number] [facility] [address] [place] 2022-11-25 2022-11-25 Emergency X [facility] ERT [id number] Univers 14:55:00 19:46:00 ELINA perezy [facility] 2022-11-25 2022-11-25 Emergency [facility] 1.2.840.114 10 [id number] Univers 14:55:00 19:46:00 Elina JACOME 350.1.13.10 ity [facility] 4.2.7.2.686 [facility] [id number] [facility] [address] 2022-11-25 2022-11-25 Rug Dyer Helper 2, Adc Lab [facility] 1.2.840.114 [id number] Univers 14:00:00 14:36:03 Visit RudiTracy miller AYAZ 350.1.13.10 ity of [facility] 4.2.7.2.[place] PROFESS[place] [id number] Wy dical [facility] [address] [facility] 2022-11-25 2022-11-25 Outpatient Tess GIRJALVA [facility] [id number] Univers 11:30:00 11:17:50 TRACY shauna [facility] 2022-11-24 2022-11-24 Office [facility] 1..840.114 [id number] Univers 16:00:00 16:20:00 Visit Art HUITRON 350.1.13.10 ity [facility] 4.2.7.2.686 [facility] s [place] [id number] [facility] [address] [place] 2022-11-24 2022-11-24 Outpatient R [facility] [id number] Univers 16:00:00 16:00:00 ART [facility] 2022-11-24 2022-11-24 Telephone Critical access hospital 1.2.840.11 4 [id number] Univers 00:00:00 00:00:00 , Dom Shauna [facility] 350.1.13.10 i ty [facility] 4.2.7.2.[place] [id number] [facility] [address] [place] 2022-11-18 2022-11-18 Outpatient [facility] [id number] Univers 15:40:00 15:40:00 ART montemayor [facility] 2022-11-18 2022-11-18 Outpatient R RUDI [facility] [id number] Univers 11:45:00 11:45:00 TRACY shauna [facility] 2022-11-10 2022-11-10 Paula [facility] 1.2.840.114 [id number] Univers 00:00:00 00:00:00 Sima HEALTH 350.1.13.10 it y [facility] 4.2.7.2.686 Adrian as DOMINGUEZ?BLEA [id number] Wy pili ESTEVEZ [address] [place] [address] MEDICAL OFFICE BUILDING 2022-11-08 2022-11-08 Outpatient R [facility] [id number] Univers 15:30:00 15:30:00 SIMA ity [facility] 2022-11-08 2022-11-08 Outpatient [facility] [id number] Univers 15:30:00 15:30:00 SIMA ity [facility] 2022-11-04 2022-11-04 [facility] 1.2.840.114 [id number] Univers 15:40:00 16:00:00 Visit Art SPECIALTY 350.1.13.10 ity of [place].2.[place].2.[place] [id number] [address] 2022-11-04 2022-11-04 Outpatient R [facility] [id number] Univers 15:40:00 15:40:00 ART y [facility] 2022-11-01 2022-11-01 Outpatient [facility] [id number] Univers 16:30:00 16:30:00 SIMA ity [facility] 2022-11-01 2022-11-01 Outpatient R [facility]WESLEYZ[facility] [id number] Univers 16:00:00 16:00:00 MARIAN ity [facility] 2022-10-29 2022-10-29 [facility] 1.2.840.114 [id number] Univers 14:40:00 15:00:00 Visit Art SPECIALTY 350.1.13.10 ity of [place].2.7.2.[place] [id number] [address] 2022-10-29 2022-10-29 Outpatient R [facility] [id number] Univers 14:40:00 14:40:00 ART [facility] 2022-10-29 2022-10-29 Orders Doctor FERNANDES 1.2.840.114 [id number] Univers 00:00:00 00:00:00 Only Unassigned, ALEXANDRE 350.1.13.10 ity of [facility] 4.2.7.2.686 Adrian as [id number] [facility] [address] 2022-10-28 2022-10-28 [facility] [id number] Univers 11:45:00 11:45:00 TRACY [facility] 2022-10-22 2022-10-22 [facility] 1.2.840.114 [id number] Univers 15:40:00 16:00:00 Visit Art SPECIALTY 350.1.13.10 ity of [place] 4.2.7.2.[place] [id number] [facility] [address] [place] 2022-10-22 2022-10-22 Outpatient R [facility] [id number] Univers 15:40:00 15:40:00 ART [facility] 2022-10-19 2022-10-19 Outpatient [facility] [id number] Univers 08:30:00 08:30:00 MARIAN [facility] 2022-10-14 2022-10-14 Out[facility] [id number] Univers 11:45:00 11:45:00 [facility] 2022-10-13 2022-10-13 [facility] 1.2.840.114 [id number] Univers 13:00:00 13:20:00 Visit Art SPECIALTY 350.1.13.10 ity of [place].2.[place] [id number] [address] 2022-10-13 2022-10-13 Outpatient R [facility] [id number] Univers 13:00:00 13:00:00 ART [facility] 2022-10-10 2022-10-10 [facility] 1.2.840.114 [id number] Univers 00:00:00 00:00:00 , [facility] 350.1.13.10 i ty of [facility] 4.2.7.2.686 [place] [id number] [facility] [address] 2022-10-08 2022-10-08 [facility] 1.2.840.114 [id number] Univers 15:00:00 15:20:00 Visit Art SPECIALTY 350.1.13.10 ity of [place] 4[place].2.[place] [id number] [address] 2022-10-08 2022-10-08 Outpatient R [facility] [id number] Univers 15:00:00 15:00:00 ART ity [facility] 2022-10-01 2022-10-01 [facility] 1.2.840.114 [id number] Univers 15:00:00 15:20:00 Visit Art SPECIALTY 350.1.13.10 ity of [place] 4.2.[place].2.[place] [id number] [address] 2022-10-01 2022-10-01 Outpatient R [facility] [id number] Univers 15:00:00 15:00:00 [facility] 2022-09-28 2022-09-28 Telephone [facility] 1.2.840.114 [id number] Univers 00:00:00 00:00:00 Art SPECIALTY 350.1.13.10 ity of [place] [id number] [address] 2022-09-24 2022-09-24 Outpatient [facility] [id number] Univers 14:00:00 14:00:00 TRACY [facility] 2022-09-23 2022-09-23 [facility] 1.2.840.114 [id number] Univers 13:20:00 13:40:00 Visit Art SPECIALTY 350.1.13.10 ity of [place].2.[place] [id number] [address] 2022-09-23 2022-09-23 Outpatient R [facility] [id number] Univers 13:20:00 13:20:00 ART [facility] 2022-09-20 2022-09-20 Outpatient R [facility] [id number] Univers 09:30:00 09:30:00 LOPEZ ity [facility] 2022-09-17 2022-09-17 Outpatient R RUDI [facility] [id number] Univers 14:30:00 14:30:00 TRACY montemayor [facility] 2022-09-15 2022-09-15 Office [facility] 1.2.840.114 [id number] Univers 15:20:00 15:40:00 Visit Art SPECIALTY 350.1.13.10 ity of [place] 4[place]2.[place].2.[place] [id number] [address] 2022-09-15 2022-09-15 Outpatient [facility] [id number] Univers 15:20:00 15:20:00 ART montemayor [facility] 2022-09-15 2022-09-15 Telephone [facility] 1.2.147.987 [id number] Univers 00:00:00 00:00:00 [facility] 350.1.13.10 it y of [place] 4.2.7.2.686 Adrian as DOMINGUEZ?BLEA [id number] [address] OFFICE BUILDING 2022-09-10 2022-09-10 Outpatient R RUDI [facility] [id number] Univers 14:30:00 14:30:00 TRACY montemayor [facility] 2022-09-10 2022-09-10 Telephone [facility] 1.2.840.114 [id number] Univers 00:00:00 00:00:00 Art SPECIALTY 350.1.13.10 ity of [place] [id number] [address] 2022-09-08 2022-09-08 Outpatient R CLAUDETTE [facility] [id number] Univers 14:15:00 14:15:00 LOGAN sim [facility] 2022-09-07 2022-09-07 Office [facility] 1.2.840.114 [id number] Univers 14:00:00 14:40:00 Visit Art SPECIALTY 350.1.13.10 ity of [place] 4.[place].2.[place] [id number] [address] 2022-09-07 2022-09-07 Outpatient R JOSE [facility] [id number] Univers 14:00:00 14:00:00 ART shauna [facility] 2022-09-07 2022-09-07 Telephone [facility] 1.2.750.451 [id number] Univers 00:00:00 00:00:00 Jill Antunez HEALTH 350.1.13.10 i ty [facility] 4.2.7.2.686 Adrian as DOMINGUEZ?BLEA [id number] [address] MEDICAL OFFICE [facility] 2022-09-03 2022-09-03 Outpatient [facility] [id number] Univers 14:45:00 14:45:00 TRACY [facility] 2022-09-01 2022-09-01 Outpatient R [facility] [id number] Univers 13:51:35 23:59:00 JILL [facility] 2022-09-01 2022-09-01 [facility], Ang - [facility] 1.2.840.1 14 [id number] Univers 14:30:00 14:45:00 Visit ShellySkylerJill A HEALTH 350.1.13.10 ity of [place] 4.2.7.2.686 Adrian as DOMINGUEZ?BLEA [id number] [facility] [address] [place] MEDICAL OFFICE [facility] 2022-09-01 2022-09-01 Office [facility] 1.2.840.114 [id number] Univers 13:00:00 13:49:15 Visit Jill Antunez HEALTH 350.1.13.10 i ty of [place] 4.2.7.2.686 Adrian as DOMINGUEZ?BLEA [id number] [address] MEDICAL OFFICE [facility] 2022-08-27 2022-08-27 Outpatient R QUYNH [facility] [id number] Univers 15:30:00 23:59:00 DEMARCUS [facility] 2022-08-27 2022-08-27 Outpatient R RUDI [facility] [id number] Univers 13:45:00 13:45:00 TRACY [facility] 2022-08-18 2022-08-18 Office Waldemar, UNIVERSIT 1.2.840.114 [id number] Univers 10:00:00 10:30:00 Visit Arsen [facility] 350.1.13.10 i ty of [place] 4[place].2.[place] [id number] [facility] [address] [place] 2022-08-18 2022-08-18 Outpatient R [facility] [id number] Univers 10:00:00 10:00:00 [facility] 2022-08-16 2022-08-16 Outpatient R [facility] [id number] Univers 14:30:00 14:30:00 DEMARCUS [facility] 2022-08-12 2022-08-12 Outpatient R [facility] [id number] Univers 14:00:00 14:37:07 DUDLEY [facility] 2022-08-12 2022-08-12 Office [facility] 1.2.840.114 [id number] Univers 14:00:00 14:37:07 Visit Dudley PRIMARY 350.1.13.10 it y of [place].2.[place] [id number] Wy dicwy [address] [place] 2022-08-09 2022-08-09 Outpatient R [facility] [id number] Univers 13:30:00 13:30:00 DEMARCUS [facility] 2022-08-06 2022-08-06 Outpatient R RUDI [facility] [id number] Univers 13:15:00 13:15:00 TRACY [facility] 2022-08-04 2022-08-04 Outpatient Tess MEDEIROS [facility] [id number] Univers 10:00:00 10:00:00 ARSEN [facility] 2022-08-02 2022-08-02 Outpatient R PREMA [facility] [id number] Univers 15:00:00 15:00:00 SIMA [facility] 2022-07-30 2022-07-30 [facility] [id number] Univers 11:23:00 15:13:00 DUDLEY ity of [facility] 2022-07-30 2022-07-30 Hospital RADHA Waddell 1.2.840.114 [id number] Univers 11:23:00 15:13:00 Encounter Dudley SCHROEDER 350.1.13.10 ity of [facility] 4.2.7.2.686 Adrian as [id number] [facility] [address] 2022-07-30 2022-07-30 Anesthesia Blaise Bateman RADHA 1.2.8 40.114 [id number] Univers 12:49:00 13:59:00 Event Demetris Burr ALEXANDRE 350.1.13.10 ity of [facility] 4.2.7.2.686 Adrian as [phone] [facility] [address] 2022-07-30 2022-07-30 Surgery RADHA Waddell 1.2.840.114 [id number] Univers 11:24:00 12:37:00 Dudley ALEXANDRE 350.1.13.10 it y of [facility] 4.2.7.2.686 Adrian as [phone] [facility] [address] 2022-07-30 2022-07-30 Orders Doctor DOM 1.2.840.114 [id number] Univers 00:00:00 00:00:00 Only Unassigned, ALEXANDRE 350.1.13.10 ity of [place] [facility] 4.2.7.2.686 Adrian as [phone] [facility] [address] 2022 2022 Outpatient R PAULO [facility] [id number] Univers 14:30:00 15:26:54 , DOM montemayor of [facility] 2022 2022 Office Critical access hospital 1.2.840.114 [id number] Univers 14:30:00 15:26:54 Visit , Dom Dang [facility] 350.1.13.10 i ty [place] [id number] [facility] [address] 2022-07-27 2022-07-27 Rug Dyer Helper 2, Cornelia Lab [facility] 1.2.840.114 [id number] Univers 15:45:00 16:00:00 Visit Dom Bates 350.1.13.10 [place] [phone] Wy dical NAL [address] [place] [address] 2022-07-27 2022-07-27 Outpatient R [facility] [id number] Univers 15:45:00 15:45:00 , DOM montemayor [facility] 2022-07-27 2022-07-27 Outpatient R [facility] [id number] Univers 15:30:00 15:30:00 , DOM montemayor [facility] 2022-07-27 2022-07-27 Telephone Critical access hospital 1.2.840.11 [id number] Univers 00:00:00 00:00:00 , Dom Dang HEALTH 350.1.13.10 i [place] [phone] [address] 2022-07-26 2022-07-26 Telephone [facility] 1.2.840.114 [id number] Univers 00:00:00 00:00:00 Lab Main AYAZ 350.1.13.10 [place] [phone] [address] 2022-07-26 2022-07-26 Telephone Critical access hospital 1.2.840.11 [id number] Univers 00:00:00 00:00:00 , Dom Dang HEALTH 350.1.13.10 i ty of [place] [id number] [address] 2022-07-21 2022-07-21 Outpatient R BENNY RDEDING [facility] [id number] Univers 15:00:00 16:03:08 BENNY REDDING [facility] 2022-07-21 2022-07-21 Office [facility] 1.2.840.114 [id number] Univers 15:00:00 16:03:08 Visit Benny [facility] 350.1.13.10 it y of [place] RO[place] [id number] [facility] [address] [place] OFFICE BUILDING 2022-07-15 2022-07-15 Office [facility] 1.2.840.114 [id number] Univers 15:30:00 15:40:00 Visit Dudley PRIMARY 350.1.13.10 it y of [place] [id number] [facility] [address] [place] 2022-07-15 2022-07-15 Out[facility] [id number] Univers 15:30:00 15:30:00 DUDLEY ity [facility] 2022-07-13 2022-07-13 Outpatient [facility] [id number] Univers 08:30:00 08:56:01 MARIAN ity [facility] 2022-07-13 2022-07-13 Office [facility] 1.2.156.278 [id number] Univers 08:30:00 08:56:01 Visit Marian PRIMARY 350.1.13.10 ity of [place] [id number] [address] 2022-07-09 2022-07-09 Outpatient R [facility] [id number] Univers 13:00:00 13:36:32 TRACY ity [facility] 2022-07-08 2022-07-08 Outpatient [facility] [id number] Univers 08:17:35 23:59:00 MARAIN ity [facility] 2022-07-08 2022-07-08 [facility] G[facility]avtulio [facility] 1.2.840.114 [id number] Univers 08:17:35 23:59:00 Encounter Marian Y HEALTH 350.1.13.10 ity of A CLINICS [place] [id number] [facility] [address] 2022-07-07 2022-07-07 Telephone [facility] 1.2.779.654 [id number] Univers 00:00:00 00:00:00 [facility] 350.1.13.10 it y of [place] 4.2.7.2.686 Adrian as DOMINGUEZ?BLEA [id number] Wy dical EVEY [address] [facility] OFFICE [facility] 2022-07-06 2022-07-06 Outpatient R HEMANTH [facility] [id number] Univers 15:45:00 17:04:50 ELY ity [facility] 2022-07-06 2022-07-06 Office [facility] 1.2.683.044 [id number] Univers 15:45:00 17:04:50 Visit Ely AYAZ 350.1.13.10 i ty of [place].7.2.[place] [id number] Wy dicjian NAL 188 [facility] 2022-07-05 2022-07-05 Outpatient [facility] [id number] Univers 08:58:18 23:59:00 MARIAN ity [facility] 2022-07-05 2022-07-05 [facility] 1.2.840.114 [id number] Univers 08:58:18 23:59:00 Encounter Marian PRIMARY 350.1.13.10 ity of [place] [id number] [facility] [address] [place] 2022-07-05 2022-07-05 Office [facility] 1.2.933.798 [id number] Univers 08:45:00 09:00:00 Visit Marian PRIMARY 350.1.13.10 ity of [place] [id number] Wy dical [address] [place] 2022-07-01 2022-07-01 Emergency X KOURTNEYSAINTE [facility]EVIEV[facility]ITAL[facility] ERT [id number] Univers 16:34:00 21:51:00 KRISSY [facility] 2022-07-01 2022-07-01 [facility] 1.2.840.114 [id number] Univers 16:34:00 21:51:00 Krissy [place] 350.1.13.10 i ty of [place] 4.2.7.2.686 [place] BAR[place] [id number] [facility] [address] [place] 2022-07-01 2022-07-01 Outpatient R [facility] [id number] Univers 14:30:00 15:32:41 SIMA ity [facility] 2022-07-01 2022-07-01 Office [facility] 1.2.840.114 [id number] Univers 14:30:00 15:32:41 [facility] 350.1.13.10 it y of [place] 4.2.7.2.686 Adrian as DOMINGUEZ?BLEA [id number] [address] OFFICE [facility] 2022-07-01 2022-07-01 Telephone [facility] 1.2.767.746 [id number] Univers 00:00:00 00:00:00 Sima HEALTH 350.1.13.10 it y of [place] 4.2.7.2.686 Adrian as DOMINGUEZ?BLEA [id number] [address] OFFICE [facility] 2022-06-30 2022-06-30 Outpatient R [facility] [id number] Univers 14:15:00 14:51:04 [facility]ICA [facility] 2022-06-30 2022-06-30 Office [facility] 1.2.840.114 [id number] Univers 14:15:00 14:51:04 [facility] 350.1.13.10 it y of CANCER 4.2.7.2.686 [facility] [id number] [facility] [address] [place] 2022-06-28 2022-06-28 Telephone [facility] 1.2.872.377 [id number] Univers 00:00:00 00:00:00 Sima HEALTH 350.1.13.10 it y of [place] 4.2.7.2.686 Adrian as DOMINGUEZ?BLEA [id number] [address] OFFICE [facility] 2022-06-24 2022-06-24 Outpatient R [facility] [id number] Univers 14:00:07 23:59:00 SIMA ity of [facility] 2022-06-24 2022-06-24 [facility] 1.2.840.114 [id number] Univers 14:00:07 23:59:00 Encounter Sima JACOME 350.1.13.10 ity of [facility] 4.2.7.2.686 [facility] [id number] [facility] [address] [place] 2022-06-24 2022-06-24 [facility] 1.2.840.114 [id number] Univers 13:54:03 13:59:00 Encounter Sima JACOME 350.1.13.10 ity of COMBS 4.2.7.2.686 [facility] [id number] [facility] [address] [place] 2022-06-09 2022-06-09 Outpatient R [facility] [id number] Univers 11:30:00 11:30:00 ARSEN ity [facility] 2022-06-08 2022-06-08 Outpatient [facility] BARRY [id number] Univers 07:18:00 11:00:00 ELY ity [facility] 2022-06-08 2022-06-08 [facility] 1.2.840.114 [id number] Univers 07:18:00 11:00:00 Encounter Ely AYAZ 350.1.13.10 ity of [place] SURGICAL [id number] [facility] [address] [place] 2022-06-08 2022-06-08 [facility] 1.2.338.326 [id number] Univers 08:15:00 09:11:00 Ely AYAZ 350.1.13.10 i ty of [place] 4.2.[place].2.[place] SURGICAL [id number] [facility] [address] [place] 2022-06-08 2022-06-08 Orders Doctor FERNANDES 1.2.840.114 [id number] Univers 00:00:00 00:00:00 Only Unassigned, ALEXANDRE 350.1.13.10 ity of [place] [facility] 4.2.7.2.686 Adrian as [id number] [facility] [address] [place] 2022-06-07 2022-06-07 Outpatient R HEMANTH [facility] [id number] Univers 11:00:00 11:00:00 ELY montemayor of [facility] 2022-06-07 2022-06-07 Telephone [facility] 1.2.840.114 [id number] Univers 00:00:00 00:00:00 Ely LONDONCHRISTIN 350.1.13.10 i ty of [place] PROF[place] [id number] [address] 2022-06-03 2022-06-03 Telephone DOM Saxena 1.2.840.114 [id number] Univers 00:00:00 00:00:00 Ely SCHROEDER 350.1.13.10 it y of [facility] 4.2.7.2.686 Adrian as [id number] [facility] [address] [place] 2022-06-01 2022-06-01 Paula [facility]OL[facility] 1.2.840.114 [id number] Univers 00:00:00 00:00:00 Sima HEALTH 350.1.13.10 it y of [place] 4.2.7.2.686 Adrian as DOMINGUEZ?BLEA [id number] [facility] [address] [place] MEDICAL OFFICE [facility] 2022-05-31 2022-05-31 Telephone [facility] 1.2.243.433 [id number] Univers 00:00:00 00:00:00 Sima HEALTH 350.1.13.10 it y of [place] 4.2.7.2.686 Adrian as DOMINGUEZ?BLEA [id number] [address] MEDICAL OFFICE [facility] 2022-05-27 2022-05-27 Outpatient R PREMA [facility] [id number] Univers 00:00:00 00:00:00 SIMA montemayor of [facility] 2022-05-14 2022-05-14 Outpatient R ABDULKADIR [facility] [id number] Univers 14:30:00 16:14:37 KENDRA montemayor o f [facility] 2022-05-14 2022-05-[address] [facility] 1.2.840.114 [id number] Univers 14:30:00 16:14:37 Visit Kendra JACOME 350.1.13.10 ity of [place].2.[place] [id number] Wy dicwy NAL 188 [facility] 2022-05-14 2022-05-14 Prep For Abdulkadir [facility] 1.2.840.114 [id number] Univers 00:00:00 00:00:00 Surgery Kendra JACOME 350.1.13.10 ity of [place].2.[place] [id number] Wy dical NAL 188 [facility] 2022-05-12 2022-05-12 Outpatient R [facility] [id number] Univers 11:30:00 11:30:00 ARSEN montemayor [facility] 2022-05-11 2022-05-11 Rug [facility], [facility] 1.2.840.1 14 [id number] Univers 15:30:00 15:34:[address] [facility] 350.1.13.[address] [facility] 4.2.7.2.686 Adrian as DOMINGUEZ?BLEA [id number] Wy sushiljian CARRENO [address] [facility] OFFICE [facility] 2022-05-11 2022-05-11 Outpatient R PREMA [facility] [id number] Univers 15:30:00 15:30:00 SIMA ity [facility] 2022-05-11 2022-05-11 Office [facility] 1.2.840.114 [id number] Univers 14:30:00 15:21:10 Visit Sima HEALTH 350.1.13.10 it y [address] [facility] 4.2.7.2.686 Adrian as DOMINGUEZ?BLEA [id number] Wy pili CARRENO [address] [facility] OFFICE [facility] 2022-05-11 2022-05-11 Outpatient [facility] [id number] Univers 14:30:00 15:21:10 SIMA ity [facility] 2022-05-11 2022-05-11 Outpatient R PREMA [facility] [id number] Univers 14:30:00 15:21:10 SIMA montemayor [facility] 2022-05-04 2022-05-04 Outpatient R PREMA [facility] [id number] Univers 14:30:00 14:30:00 SIMA montemayor [facility] 2022-04-21 2022-04-21 Outpatient R LUCIE [facility] [id number] Univers 11:30:00 11:30:00 MARYAM montemayor [facility] 2022-04-05 2022-04-05 Outpatient R [facility] [id number] Univers 13:15:00 13:15:00 ity [facility] 2022-03-18 2022-03-18 Office Critical access hospital 1.2.840.114 [id number] Univers 16:30:00 17:00:00 Visit , [facility] 350.1.13.10 i ty of CL[place] [id number] [facility] [address] [place] 2022-03-18 2022-03-18 Outpatient R PAULO [facility] [id number] Univers 16:30:00 16:30:00 , DOM montemayor [facility] 2022-02-11 2022-02-11 Outpatient R ESTRELLAPASCALE [facility] [id number] Univers 13:00:00 15:42:51 ity [facility] 2022-02-11 2022-02-11 Nurse Visit, [facility] Dermatology Nurse UNIVE RSIT 1.2.840.114 [id number] Univers 13:00:00 15:42:51 Visit EstrellaJosy [facility] 350.1.13.10 ity of CL[place] [id number] [facility] [address] [place] 2022-02-11 2022-02-11 Telephone Critical access hospital 1.2.840.11 4 [id number] Univers 00:00:00 00:00:00 , [facility] 350.1.13.10 i ty of [place] [id number] [facility] [address] 2022-02-04 2022-02-04 Office NAVEEN Bunn 1.2.840.114 [id number] Univers 15:15:00 16:19:56 Visit Tavo RIOS 350.1.13.10 i ty of [place] [id number] [facility] [address] 2022-02-04 2022-02-04 Outpatient R ONI [facility] [id number] Univers 15:15:00 16:19:56 TAVO [facility] 2022-02-04 2022-02-04 [facility] [id number] Univers 15:15:00 15:15:00 [facility] 2022-02-04 2022-02-04 Orders Doctor FERNANDES 1.2.840.114 [id number] Univers 00:00:00 00:00:00 Only Unassigned, ALEXANDRE 350.1.13.10 ity of [place] [facility] 4.2.7.2.686 Adrian as [id number] [facility] [address] [place] 2022-01-12 2022-01-12 Office NAVEEN [facility] 1.2.840.114 [id number] Univers 14:00:00 14:30:00 Visit Scott RIOS 350.1.13.10 i ty of CL[place] 4[place] [id number] [facility] [address] [place] 2022-01-12 2022-01-12 Outpatient SCOTT GARDUNO [facility] [id number] Univers 14:00:00 14:00:00 SCOTT RUSSELL itshauna [facility] 2022-01-01 2022-01-01 Ancillary 1, Jania [employer] [facility] 1.2.840.114 [id number] Univers 14:30:00 15:15:00 Visit Mary Gonzalez 350.1.13.1 0 ity of [facility] [place].2.[place] [id number] [facility] [address] 2022-01-01 2022-01-01 Outpatient Tess GONZALEZ [facility] [id number] Univers 14:30:00 14:30:00 MARY ity [facility] 2021-12-31 2021-12-31 Outpatient R YASMANI [facility] [id number] Univers 17:03:56 23:59:00 JESSICA ity [facility] 2021-12-31 2021-12-31 Outpatient R YASMANI [facility] [id number] Univers 17:03:56 23:59:00 JESSICA ity [facility] 2021-12-31 2021-12-31 [facility] 1.2.273.697 [id number] Univers 16:30:00 23:59:00 Encounter Jessica RAV[place] 350.1.13.10 ity of [place] 4.2.7.2.686 [facility] [id number] [facility] [address] [place] 2021-12-23 2021-12-23 Rug Dyer Helper Vls-Lab [facility] 1.2.840.114 [id number] Univers 16:15:00 16:30:00 Visit Jessica Gruber 350.1.13.10 ity of CARE 4.2.7.2.686 [facility] AT [id number] Wy pili MACIE 353 [facility] 2021-12-23 2021-12-[address] [facility] 1.2.840.114 [id number] Univers 14:30:00 14:45:00 Visit [facility] 350.1.13.10 it y of CANCER 4.2.7.2.686 [facility] - [id number] Med ical MDA [address] 2021-12-23 2021-12-23 Outpatient R YASMANI [facility] [id number] Univers 14:30:00 14:30:00 JESSICA ity [facility] 2021-12-23 2021-12-23 Outpatient R YASMANI [facility] [id number] Univers 14:30:00 14:30:00 JESSICA ity [facility] 2021-12-15 2021-12-15 Outpatient Tess PAEZ [facility] [id number] Univers 13:00:00 13:00:00 RUSSELL perezy [facility] 2021-12-10 2021-12-10 [facility] 1.2.840.114 [id number] Univers 00:00:00 00:00:00 Sima HEALTH 350.1.13.10 it y of [place] 4.2.7.2.686 Adrian as DOMINGUEZ?BLEA [id number] [address] OFFICE [facility] 2021-12-10 2021-12-10 [facility] 1.2.840.114 [id number] Univers 00:00:00 00:00:00 Sima HEALTH 350.1.13.10 it y of [place] 4.2.7.2.686 Adrian as DOMINGUEZ?BLEA [id number] [address] OFFICE [facility] 2021-12-09 2021-12-09 FILEMON Johnson 1.2.840.114 [id number] Univers 00:00:00 00:00:00 Management Arsen Y HEALTH 350.1.13.10 ity of [place] [id number] [address] 2021-12-08 2021-12-08 [facility] 1.2.840.114 [id number] Univers 00:00:00 00:00:00 Sima HEALTH 350.1.13.10 it y of [place] 4.2.7.2.686 Adrian as DOMINGUEZ?BLEA [id number] [address] OFFICE [facility] 2021-12-07 2021-12-07 Outpatient R WALDEMAR [facility] [id number] Univers 13:00:00 23:59:00 ARSEN ity [facility] 2021-12-07 2021-12-07 Outpatient R WALDEMAR [facility] [id number] Univers 13:00:00 23:59:00 ARSEN ity [facility] 2021-12-07 2021-12-07 [facility] Arsen Medeiros [facility] 1.2.840 .114 [id number] Univers 12:20:25 23:59:00 Encounter Katie Donaldson HEALTH 350.1.13.10 ity of [place].2.[place] [id number] [facility] [address] (CLC) 2021-11-27 2021-11-27 Case FILEMON Medeiros 1.2.840.114 [id number] Univers 00:00:00 00:00:00 Management Arsen Dang HEALTH 350.1.13.10 ity of [place] [id number] [facility] [address] 2021-11-26 2021-11-26 Outpatient [facility] [id number] Univers 10:13:34 23:59:00 [facility] 2021-11-26 2021-11-26 [facility] 1.2.840.114 [id number] Univers 10:13:34 23:59:00 Encounter Arsen JACOME 350.1.13.10 ity of [place].2.7.2.[place] [id number] [facility] [address] 2021-11-26 2021-11-26 [facility] 1.2.840.114 [id number] Univers 10:00:00 10:12:00 Encounter Arsen JACOME 350.1.13.10 ity of [place].7.2.[place] [id number] [facility] [address] 2021-11-16 2021-11-16 Outpatient R WALDEMAR [facility] [id number] Univers 10:40:00 10:40:00 ARSEN perezy [facility] 2021-10-26 2021-10-26 Outpatient R PAULO [facility] [id number] Univers 17:00:00 17:00:00 , DOM montemayor [facility] 2021-10-26 2021-10-26 Rug Dyer Helper [facility] UNIVERSIT 1.2.840.114 [id number] Univers 17:00:00 17:00:00 Visit Dom Bates [facility] 350.1.13.10 ity of [place] [id number] [facility] [address] 2021-10-26 2021-10-26 Office Critical access hospital 1.2.840.114 [id number] Univers 14:30:00 15:00:00 Visit , Dom Dang [facility] 350.1.13.10 i ty of [place] 4[place]2.[place] [id number] [facility] [address] [place] 2021-10-26 2021-10-26 Outpatient R PAULO [facility] [id number] Univers 14:30:00 14:30:00 , DOM [facility] 2021-10-15 2021-10-15 Telephone [facility] 1.2.840.11 [id number] Univers 00:00:00 00:00:00 , Dom Dang [facility] 350.1.13.10 i ty of [place] 4[place] [id number] [facility] [address] [place] 2021-10-13 2021-10-13 Office FILEMON Russell 1.2.840.114 [id number] Univers 14:00:00 14:30:00 Visit Scott [facility] 350.1.13.10 i ty of [place] 4.2.[place].2.[place] [id number] [facility] [address] [place] 2021-10-13 2021-10-13 Outpatient R DREW SCOTT [facility] [id number] Univers 14:00:00 14:00:00 SCOTT RUSSELL [facility] 2021-10-13 2021-10-13 Outpatient R SCOTT RUSSELL [facility] [id number] Univers 14:00:00 14:00:00 SCOTT RUSSELL [facility] 2021-09-18 2021-09-18 Rug [facility], Ang - Db [facility] 1.2.840.1 14 [id number] Univers 11:30:00 11:45:00 Visit Sima Lloyd 350.1.13.[address] [facility] [facility] 4.2.7.2.686 Adrian as DOMINGUEZ?BLEA [id number] [address] MEDICAL OFFICE BUILDING 2021-09-18 2021-09-18 Outpatient R PREMA [facility] [id number] Univers 11:30:00 11:30:00 SIMA montemayor [facility] 2021-09-18 2021-09-[address] [facility] 1.2.840.114 [id number] Univers 10:00:00 11:15:59 Visit Sima RIOS 350.1.13.10 it y of [place] 4.2.7.2.686 Adrian as DOMINGUEZ?BLEA [id number] [address] MEDICAL OFFICE BUILDING 2021-09-18 2021-09-18 Outpatient R PREMA [facility] [id number] Univers 10:00:00 11:15:59 SIMA montemayor [facility] 2021-07-15 2021-07-15 Office Waldemar Arsen [employer] 1.2.84 0.114 [id number] Univers 10:58:41 11:44:05 Visit Maryam Faulkner HEALTH 350.1.13.10 ity of [place] [id number] [facility] [address] [place] 2021-07-15 2021-07-15 Outpatient R WALDEMAR [facility] [id number] Univers 10:45:00 11:44:05 ARSEN montemayor [facility] 2021-07-15 2021-07-15 Outpatient R WALDEMAR [facility] [id number] Univers 10:45:00 11:44:05 ARSEN montemayor [facility] 2021-06-25 2021-06-25 Outpatient R PAULO [facility] [id number] Univers 15:30:00 16:55:56 , DOM montemayor [facility] 2021-06-25 2021-06-25 Office Floradarby [facility] 1.2.840.114 [id number] Univers 15:30:00 16:55:56 Visit Dom HEALTH 350.1.13.10 i ty of [place] 4[place] [id number] [facility] [address] [place] 2021-06-25 2021-06-25 Outpatient R PAULO [facility] [id number] Univers 15:30:00 15:30:00 , DOM montemayor [facility] 2021-06-23 2021-06-23 [facility] [id number] Univers 10:00:00 11:36:54 , DOM montemayor [facility] 2021-06-23 2021-06-23 Rug Dyer Helper [facility] 1.2.840.114 [id number] Univers 10:39:25 10:54:25 Visit Dom Bates 350.1.13.10 ity of [place] 4[place] [id number] [facility] [address] 2021-06-23 2021-06-23 Office Drew [facility] 1.2.840.114 [id number] Univers 09:39:10 10:09:10 Visit Scott Dang [facility] 350.1.13.10 i ty of [place] [id number] [facility] [address] 2021-06-23 2021-06-23 Outpatient R SCOTT RUSSELL [facility] [id number] Univers 09:30:00 09:30:00 SCOTT RUSSELL [facility] 2021-06-23 2021-06-23 Orders Doctor DOM 1.2.840.114 [id number] Univers 00:00:00 00:00:00 Only Unassigned, ALEXANDRE 350.1.13.10 ity of [place] [facility] 4.2.7.2.686 Adrian as [id number] [facility] [address] 2021-06-19 2021-06-19 Telephone Critical access hospital 1.2.840.11 [id number] Univers 00:00:00 00:00:00 , Dom Dang [facility] 350.1.13.10 i ty of [place] [id number] [facility] [address] 2021-06-11 2021-06-12 Emergency Ashwin Rowe 1.2.840. 114 [id number] [facility] 10:36:00 17:49:00 Scott Russell 350.1.13.10 ity of Hospital 4.2.7.2.686 Adrian as [phone] [facility] [address] 2021-06-10 2021-06-10 [facility] Radha Russell 1.2.840.114 [id number] Univers 09:32:00 18:45:00 Encounter Scott Schroeder 350.1.13.10 ity of Hospital 4.2.7.2.686 Adrian as [id number] [facility] [address] 2021-06-10 2021-06-10 Surgery Radha Russell 1.2.840.114 [id number] Univers 09:55:00 14:12:00 [place] 350.1.13.10 it y of Hospital 4.2.7.2.686 Adrian as [phone] [facility] [address] 2021-06-10 2021-06-10 Orders Doctor DOM 1.2.840.114 [id number] Univers 00:00:00 00:00:00 Only Unassigned, ALEXANDRE 350.1.13.10 ity of [place] [facility] 4.2.7.2.686 Adrian as [phone] [facility] [address] 2021-06-03 2021-06-03 Orders Doctor DOM 1.2.840.114 [id number] Univers 00:00:00 00:00:00 Only Unassigned, ALEXANDRE 350.1.13.10 ity of [place] [facility] 4.2.7.2.686 Adrian as [phone] [facility] [address] 2021-06-02 2021-06-02 Hospital Waldemar, [facility] 1.2.840.114 [id number] Univers 15:26:21 23:59:00 Encounter Arsen Dang [facility] 350.1.13.10 [place] [id number] [facility] [address] 2021-06-02 2021-06-02 Outpatient R WALDEMAR [facility] [id number] Univers 15:26:21 23:59:00 ARSEN ity of [facility] 2021-06-02 2021-06-02 Rug Dyer Helper [facility] 1.2.840.114 [id number] Univers 15:56:27 16:13:00 Visit Scott Russell [facility] 350.1.13.10 ity [place] [id number] [facility] [address] 2021-06-02 2021-06-02 Office LUANNE Brooks 1.2.205.061 [id number] Univers 12:43:26 15:40:52 Visit Kalina Finch Yoana 350.1.13.10 i ty of BUILDING 4.2.7.2.686 Adrian as [phone] [facility] [address] 2021-06-02 2021-06-02 Outpatient SCOTT GARDUNO [facility] [id number] Univers 14:00:00 14:00:00 SCOTT RUSSELL itshauna [facility] 2021-06-02 2021-06-02 Office FILEMON RussellIT 1.2.840.114 [id number] Univers 13:11:36 13:41:36 Visit Scott [facility] 350.1.13.10 i ty of CL[place]ICS [place] [phone] [facility] [address] [place] 2021-06-02 2021-06-02 [facility] [id number] Univers 13:00:00 13:00:00 KALINA ity of [facility] 2021-05-28 2021-05-28 [facility] 1.2.840.114 [id number] Univers 10:47:29 23:59:00 Encounter Kalina Finch SPECIALTY 350.1.13.10 ity of [facility] [place].2.7.2.[place] [phone] Wy sushilwy [place] [address] [place] [address] 2021-05-28 2021-05-28 [facility] [id number] Univers 00:00:00 00:00:00 KALINA ity of [facility] 2021-05-25 2021-05-25 Office [facility] UNIVERSIT 1.2.840.114 [id number] Univers 16:06:51 17:06:51 Visit Dom Dang [facility] 350.1.13.10 i ty of CL[place]ICS [place] [id number] [facility] [address] 2021-05-25 2021-05-25 Office [facility] UNIVERSIT 1.2.840.114 [id number] Univers 16:06:51 17:06:51 Visit , Dom [facility] 350.1.13.10 i ty of CL[place]ICS [place] [id number] [facility] [address] 2021-05-25 2021-05-25 Outpatient R [facility] [id number] Univers 16:00:00 16:00:00 , DOM perezy [facility] 2021-05-25 2021-05-25 Outpatient R [facility] [id number] Univers 16:00:00 16:00:00 , DOM montemayor [facility] 2021-05-25 2021-05-25 Outpatient R [facility] 129 [id number] Univers 16:00:00 16:00:00 , DOM montemayor [facility] 2021-04-29 2021-04-29 [facility] Kalina Brooks 1.2.840 .114 [id number] Univers 10:15:00 23:59:[address], [facility] Rad Oncology H 350.1.1 3.10 ity of BUILDING 4.2.7.2.686 Adrian as [id number] [facility] [address] 2021-04-29 2021-04-29 Hospital Kalina Brooks 1.2.840 .114 [id number] Univers 10:15:00 23:59:[address], [facility] Rad Oncology H 350.1.1 3.10 ity of BUILDING 4.2.7.2.686 Adrian as [phone] [facility] [address] 2021-04-29 2021-04-29 [facility] Radha Brooks 1.2.840.114 [id number] [facility] Univers 06:49:00 17:05:00 Encounter Kalina Finch [place] 350.1.13.10 ity of Hospital 4.2.7.2.686 Adrian as [phone] [facility] [address] 2021-04-29 2021-04-29 Treatment LUANNE Brooks 1.2.840.114 [id number] Univers 13:55:51 15:40:07 Management Kalina S H 350.1.13.10 ity of BUILDING 4.2.7.2.686 Adrian as [phone] [facility] [address] 2021-04-29 2021-04-29 Treatment LUANNE Brooks 1.2.840.114 [id number] Univers 13:55:51 15:40:07 Management Kalina Lees 350.1.13.10 ity of [place] [address].2.7.2.686 Adrian as [phone] [facility] [address] 2021-04-29 2021-04-29 Anesthesia Sofiya Horner 1.2.840 .114 [id number] Univers 08:58:00 11:05:00 Event DashawnAmparo bowman Alexandre 350.1.13.10 ity of [address]2.686 Adrian as [phone] [facility] [address] 2021-04-29 2021-04-29 Anesthesia Sofiya Horner 1.2.840 .114 [id number] Univers 08:58:00 11:05:00 Event Rupert Amparo Alexandre 350.1.13.10 ity of [address]2.686 Adrian as [phone] [facility] [address] 2021-04-29 2021-04-29 Surgery Radha Brooks 1.2.840.114 [id number] Univers 09:00:00 10:59:00 Kalina S Alexandre 350.1.13.10 i ty of [facility] 42.7.2.686 Adrian as [phone] [facility] [address] 2021-04-29 2021-04-29 Surgery Radha Brooks 1.2.840.114 [id number] Univers 09:00:00 10:59:00 Kalina Finch Alexandre 350.1.13.10 i ty of [address]2.686 Adrian as [phone] [facility] [address] 2021-04-29 2021-04-29 Outpatient Tess BROOKS [facility] [id number] [facility] 10:15:00 10:15:00 KALINA ity of [facility] 2021-04-29 2021-04-29 Hospital Kalina Brooks 1.2.840 .114 [id number] Univers 09:00:00 10:14:00 Encounter Hdr, correction Rad Oncology H 350.1. 13.10 ity of BUILDING 4.2.7.2.686 Adrian as [phone] [address] 2021-04-29 2021-04-29 Hospital Kalina Brooks 1.2.840 .114 [id number] Univers 09:00:00 10:14:00 Encounter Hdr, correction Rad Oncology H 350.1. 13.10 ity of BUILDING 4.2.7.2.686 Adrian as [phone] [address] 2021-04-29 2021-04-29 Outpatient R TODD [facility] [id number] Univers 09:00:00 09:00:00 KALINA [facility] 2021-04-29 2021-04-29 Orders Doctor DOM 1.2.840.114 [id number] Univers 00:00:00 00:00:00 Only Unassigned, ALEXANDRE 350.1.13.10 ity of [place] [facility] 4.2.7.2.686 Adrian as [phone] [address] 2021-04-29 2021-04-29 Orders Doctor DOM 1.2.840.114 [id number] Univers 00:00:00 00:00:00 Only Unassigned, ALEXANDRE 350.1.13.10 ity of [place] [facility] 4.2.7.2.686 Adrian as [id number] [address] 2021-04-28 2021-04-28 Outpatient R SCOTT RUSSELL [facility] [id number] Univers 11:30:00 11:30:00 SCOTT RUSSELL [facility] 2021-04-23 2021-04-23 FILEMON MatthewIT 1.2.840.114 [id number] Univers 00:00:00 00:00:00 Management Maryam Y HEALTH 350.1.13.10 ity of CL[place] [id number] [address] 2021-04-23 2021-04-23 FILEMON MatthewIT 1.2.840.114 [id number] Univers 00:00:00 00:00:00 Management Maryam Dang [facility] 350.1.13.10 ity of CLINICS [place] [id number] [facility] [address] 2021-04-22 2021-04-22 [facility] Kalina Brooks LUANNE 1.2.840 .114 [id number] Univers 11:15:00 23:59:[address], [facility] Rad Oncology H 350.1.1 3.10 ity of BUILDING 4.2.7.2.686 Adrian as [phone] [facility] [address] 2021-04-22 2021-04-22 [facility] Kalina Brooks LUANNE 1.2.840 .114 [id number] Univers 11:15:00 23:59:[address], [facility] Rad Oncology H 350.1.1 3.10 ity of BUILDING 4.2.7.2.686 Adrian as [phone] [facility] [address] 2021-04-22 2021-04-22 [facility] Radha Brooks 1.2.840.[id number] [place] [address] 06:57:00 17:07:00 Encounter Kalina Schroeder 350.1.13.10 ity of Hospital 4.2.7.2.686 Adrian as [phone] [facility] [address] 2021-04-22 2021-04-22 [facility] Kalina Brooks LUANNE 1.2.840 .114 [id number] Univers 09:00:00 11:14:00 Encounter Hdr, correction Rad Oncology H 350.1. 13.10 ity of BUILDING 4.2.7.2.686 Adrian as [id number] [facility] [address] 2021-04-22 2021-04-22 [facility] Kalina Brooks LUANNE 1.2.840 .114 [id number] Univers 09:00:00 11:14:00 Encounter Hdr, correction Rad Oncology H 350.1. 13.10 ity of BUILDING 4.2.7.2.686 Adrian as [phone] [facility] [address] 2021-04-22 2021-04-22 [facility] Radha Brooks 1.2.840.114 [id number] Univers 09:00:00 10:59:00 Kalina Schroeder 350.1.13.10 i ty of Hospital 4.2.7.2.686 Adrian as [id number] [facility] [address] 2021-04-22 2021-04-22 Surgery Radha Brooks 1.2.840.114 [id number] Univers 09:00:00 10:59:00 Kalina Finch [place] 350.1.13.10 i ty of Hospital 4.2.7.2.686 Adrian as [phone] [facility] [address] 2021-04-22 2021-04-22 Orders Doctor DOM 1.2.840.114 [id number] Univers 00:00:00 00:00:00 Only Unassigned, ALEXANDRE 350.1.13.10 ity of [place] [facility] 4.2.7.2.686 Adrian as [id number] [facility] [address] 2021-04-22 2021-04-22 Orders Doctor DOM 1.2.840.114 [id number] Univers 00:00:00 00:00:00 Only Unassigned, ALEXANDRE 350.1.13.10 ity of [place] [facility] 4.2.7.2.686 Adrian as [phone] [facility] [address] 2021-04-20 2021-04-20 Hospital Kalina Brooks LUANNE 1.2.840 .114 [id number] Univers 13:00:00 23:59:00 Encounter 1, [facility] Linac H 35 0.1.13.10 ity of BUILDING 4.2.7.2.686 Adrian as [id number] [facility] [address] 2021-04-20 2021-04-20 Nurse 4, [facility] Infusion Chair UNIVERSIT 1. 2.840.114 [id number] Univers 13:28:55 15:28:55 Visit Scott Russell [facility] 350.1.13.10 ity of CLINICS 4[place] [id number] [facility] [address] 2021-04-20 2021-04-20 Outpatient R SCOTT RUSSELL [facility] [id number] Univers 13:15:00 13:15:00 SCOTT RUSSELL ity of [facility] 2021-04-17 2021-04-17 [facility] Brooks Kalinara Greg STROUD 1.2.840 .114 [id number] Univers 14:24:15 23:59:00 Encounter 1, correction Rad Oncology Linac H 35 0.1.13.10 ity of BUILDING 4.2.7.2.686 Adrian as [phone] [facility] [address] [place] 2021-04-17 2021-04-17 Rug Dyer Helper [facility] UNIVERSIT 1.2.840.114 [id number] Univers 15:03:50 15:20:40 Visit Scott Russell [facility] 350.1.13.10 ity of CLINICS 4.2.7.2.[place] [phone] [place] [address] [address] 2021-04-17 2021-04-17 Outpatient R SCOTT RUSSELL [facility] [id number] Univers 15:00:00 15:00:00 SCOTT RUSSELL ity of [facility] 2021-04-16 2021-04-16 [facility] aKlina Brooks 1.2.840 .114 [id number] Univers 14:30:00 23:59:00 Encounter 1, correction Rad Oncology Linac H 35 0.1.13.10 ity of BUILDING 4.2.7.2.686 Adrian as [phone] [address] 2021-04-15 2021-04-15 [facility] Kalina Brooks 1.2.840 .114 [id number] Univers 14:45:00 23:59:[address], [facility] Rad Oncology H 350.1.1 3.10 ity of BUILDING 4.2.7.2.686 Adrian as [phone] [address] 2021-04-15 2021-04-15 [facility] Kalina Brooks 1.2.840 .114 [id number] Univers 14:14:01 23:59:00 Encounter 1, correction Rad Oncology Linac H 35 0.1.13.10 ity of BUILDING 4.2.7.2.686 Adrian as [id number] [address] 2021-04-15 2021-04-15 [facility] 1.2.840.114 [id number] Univers 09:00:00 14:13:00 Encounter Kalina Finch Ayaz 350.1.13.10 ity of [place] 4.2.7.2.686 [place] [phone] [facility] [address] 2021-04-15 2021-04-15 Outpatient R TODD [facility] [id number] Univers 00:00:00 00:00:00 KALINA ity of [facility] 2021-04-15 2021-04-15 Prep For LUANNE Brooks 1.2.840.114 [id number] Univers 00:00:00 00:00:00 Surgery Kalina Finch H 350.1.13.10 i ty of BUILDING 4.2.7.2.686 Adrian as [id number] [facility] [address] [place] 2021-04-14 2021-04-14 Hospital Kalina Brooks LASHAUNAMINAPAULOsvaldo 1.2.840 .114 [id number] Univers 09:00:00 23:59:00 Encounter Lashaun Marte Lin[place] H 35 0.1.13.10 ity of BUILDING 4.2.7.2.686 Adrian as [phone] [facility] [address] [place] 2021-04-14 2021-04-14 Nurse 2, [facility] Infusion Chair UNIVERSIT 1. 2.840.114 [id number] Univers 11:40:08 16:10:08 Visit Scott Russell 350.1.13.10 ity of CLINICS [place].2.[place] [id number] [facility] [address] 2021-04-14 2021-04-14 Treatment LUANNE Brooks 1.2.840.114 [id number] Univers 09:28:45 13:31:08 Management Kalina Finch H 350.1.13.10 ity of BUILDING 4.2.7.2.686 Adrian as [id number] [facility] [address] [place] 2021-04-14 2021-04-14 Office NAVEEN Russell 1.2.840.114 [id number] Univers 11:08:40 11:38:40 Visit [facility] 350.1.13.10 i ty of CLINICS [place] [id number] [facility] [address] [place] 2021-04-14 2021-04-14 Outpatient R SCTOT RUSSELL [facility] [id number] Univers 10:00:00 10:00:00 SCOTT RUSSELL shauna [facility] 2021-04-14 2021-04-14 Outpatient R SCOTT RUSSELL [facility] [id number] Univers 08:30:00 08:30:00 SCOTT RUSSELL shauna [facility] 2021-04-14 2021-04-14 Prep For LUANNE Brooks 1.2.840.114 [id number] Univers 00:00:00 00:00:00 Surgery Kalina Finch H 350.1.13.10 i ty of BUILDING 4.2.7.2.686 Adrian as [phone] [facility] [address] [place] 2021-04-13 2021-04-13 [facility] Kalina Brooks 1.2.840 .114 [id number] Univers 14:02:02 23:59:00 Encounter 1, correction Rad Oncology Linac H 35 0.1.13.10 ity of BUILDING 4.2.7.2.686 Adrian as [phone] [address] 2021-04-13 2021-04-13 Outpatient R SCTOT RUSSELL [facility] [id number] Univers 13:45:00 13:45:00 SCOTT RUSSELL shauna [facility] 2021-04-13 2021-04-13 Rug Dyer Helper [facility] UNIVERSIT 1.2.840.114 [id number] Univers 13:17:10 13:32:10 Visit Scott Russell [facility] 350.1.13.10 ity of CLINICS [place].2.[place] [id number] [facility] [address] 2021-04-10 2021-04-10 [facility] Kalina Brooks 1.2.840 .114 [id number] Univers 14:08:15 23:59:00 Encounter 1, correction Rad Oncology Linac H 35 0.1.13.10 ity of BUILDING 4.2.7.2.686 Adrian as [phone] [facility] [address] 2021-04-10 2021-04-10 Outpatient R TODD, [facility] [id number] Univers 14:30:00 14:30:00 KALINA itshauna [facility] 2021-04-09 2021-04-09 [facility] Kalina Brooks Greg STROUD 1.2.840 .114 [id number] Univers 14:30:00 23:59:00 Encounter 1, correction Rad Oncology Linac H 35 0.1.13.10 ity of BUILDING 4.2.7.2.686 Adrian as [phone] [facility] [address] 2021-04-08 2021-04-08 [facility] Kalina Brooks Greg STROUD 1.2.840 .114 [id number] Univers 14:27:36 23:59:00 Encounter 1, correction Rad Oncology Linac H 35 0.1.13.10 ity of BUILDING 4.2.7.2.686 Adrian as [phone] [address] 2021-04-08 2021-04-08 Telephone NAVEEN Russell 1.2.840.11 [id number] Univers 00:00:00 00:00:[address] [facility] 350.1.13.10 i ty of CLINICS 4[place]2.7.2.[place] [id number] [facility] [address] 2021-04-07 2021-04-07 [facility] BrooksKalina 1.2.840 .114 [id number] Univers 12:22:29 23:59:00 Encounter 1, correction Rad Oncology Linac H 35 0.1.13.10 ity of BUILDING 4.2.7.2.686 Adrian as [id number] [facility] [address] [place] 2021-04-07 2021-04-07 Nurse 3, [facility] Infusion Chair UNIVERSIT 1. 2.840.114 [id number] Univers 12:02:55 16:02:55 Visit Drew [employer] 350.1.13.10 ity of CLINICS 4[place]2.7.2.[place] 549.6338771 [facility] [address] 2021-04-07 2021-04-07 Treatment LUANNE Brooks 1.2.840.114 [id number] Univers 14:25:30 15:34:48 Management Kalina Lees 350.1.13.10 ity of BUILDING 4.2.7.2.686 Adrian as 445.3037136 [facility] [address] [place] 2021-04-07 2021-04-07 Outpatient R SCOTT RUSSELL [facility] [id number] Univers 12:00:00 12:00:00 SCOTT RUSSELL [facility] 2021-04-06 2021-04-06 [facility] Kalina Brooks 1.2.840 .114 [id number] Univers 14:30:00 23:59:00 Encounter 1, correction Rad Oncology Linac H 35 0.1.13.10 ity of BUILDING 4.2.7.2.686 Adrian as [phone] [address] 2021-04-06 2021-04-06 Rug Dyer Helper [facility] UNIVERSIT 1.2.840.114 [id number] Univers 14:13:06 14:28:06 Visit Scott Russell [facility] 350.1.13.10 ity of CLIN[place] 4[place] [id number] [address] 2021-04-06 2021-04-06 Outpatient R SCOTT RUSSELL [facility] [id number] Univers 14:00:00 14:00:00 SCOTT RUSSELL shauna [facility] 2021-04-03 2021-04-03 [facility] Kalina Brooks 1.2.840 .114 [id number] Univers 14:19:55 23:59:00 Encounter 1, correction Rad Oncology Linac H 35 0.1.13.10 ity of BUILDING 4.2.7.2.686 Adrian as [id number] [address] 2021-04-02 2021-04-02 [facility] Kalina Brooks 1.2.840 .114 [id number] Univers 14:14:41 23:59:00 Encounter 1, correction Rad Oncology Linac H 35 0.1.13.10 ity of BUILDING 4.2.7.2.686 Adrian as [phone] [place] [address] [address] 2021-04-01 2021-04-01 [facility] Kalina Brooks LUANNE 1.2.840 .114 [id number] Univers 14:30:00 23:59:00 Encounter 1, correction Rad Oncology Linac H 35 0.1.13.10 ity of BUILDING 4.2.7.2.686 Adrian as [phone] [facility] [address] [place] 2021-03-31 2021-03-31 [facility] Kalina Brooks LUANNE 1.2.840 .114 [id number] Univers 09:30:00 23:59:00 Encounter 1, correction Rad Oncology Linac H 35 0.1.13.10 ity of BUILDING 4.2.7.2.686 Adrian as [id number] [facility] [address] [place] 2021-03-31 2021-03-31 Nurse 6, [facility] Infusion Chair UNIVERSIT 1. 2.840.114 [id number] Univers 11:58:11 15:58:11 Visit Scott Russell [facility] 350.1.13.10 ity of CLINICS 4[place]2.[place].2.[place] [id number] [facility] [address] 2021-03-31 2021-03-31 Rug Dyer Helper [facility] UNIVERSIT 1.2.840.114 [id number] Univers 10:43:44 10:58:44 Visit Scott Russell 350.1.13.10 ity of CLINICS [place]7.2.[place] [id number] [facility] [address] 2021-03-31 2021-03-31 Treatment LUANNE Winter 1.2.840.114 [id number] Univers 09:54:02 10:54:20 Management Sameer Fitzpatrick 350.1.13.10 ity of BUILDING 4.2.7.2.686 Adrian as [id number] [facility] [address] [place] 2021-03-31 2021-03-31 Outpatient SCOTT GARDUNO [facility] [id number] Univers 10:00:00 10:00:00 SCOTT RUSSELL [facility] 2021-03-31 2021-03-31 Outpatient SCOTT GARDUNO [facility] [id number] Univers 10:00:00 10:00:00 SCOTT RUSSELL [facility] 2021-03-30 2021-03-30 [facility] Kalina Brooks 1.2.840 .114 [id number] Univers 14:30:00 23:59:00 Encounter 1, correction Rad Oncology Linac H 35 0.1.13.10 ity of BUILDING 4.2.7.2.686 Adrian as [phone] [address] 2021-03-30 2021-03-30 Outpatient R SCOTT RUSSELL [facility] [id number] Univers 15:00:00 15:00:00 SCOTT RUSSELL [facility] 2021-03-30 2021-03-30 [facility] [id number] Univers 14:30:00 14:30:00 [facility] 2021-03-30 2021-03-30 [facility] [id number] Univers 14:30:00 14:30:00 [facility] 2021-03-28 2021-03-28 Orders Doctor DOM 1.2.840.114 [id number] Univers 00:00:00 00:00:00 Only Unassigned, ALEXANDRE 350.1.13.10 ity of [place] [facility] 4.2.7.2.686 Adrian as [id number] [facility] [address] 2021-03-27 2021-03-27 [facility] Kalina Brooks 1.2.840 .114 [id number] Univers 14:20:41 23:59:00 Encounter 1, correction Rad Oncology Linac H 35 0.1.13.10 ity of BUILDING 4.2.7.2.686 Adrian as [phone] [facility] [address] 2021-03-26 2021-03-26 [facility] Kalina Brooks 1.2.840 .114 [id number] Univers 14:30:00 23:59:00 Encounter 1, correction Rad Oncology Linac H 35 0.1.13.10 ity of BUILDING 4.2.7.2.686 Adrian as [id number] [address] 2021-03-25 2021-03-25 [facility] Kalina Brooks 1.2.840 .114 [id number] Univers 14:14:12 23:59:00 Encounter 1, correction Rad Oncology Linac H 35 0.1.13.10 ity of BUILDING 4.2.7.2.686 Adrian as [id number] [address] 2021-03-24 2021-03-24 [facility] Kalina Brooks 1.2.840 .114 [id number] Univers 10:35:13 23:59:00 Encounter 1, correction Rad Oncology Linac H 35 0.1.13.10 ity of BUILDING 4.2.7.2.686 Adrian as [id number] [address] 2021-03-24 2021-03-24 Treatment LUANNE Brooks 1.2.840.114 [id number] Univers 10:36:32 15:14:06 Management Kalina Lees 350.1.13.10 ity of BUILDING 4.2.7.2.686 Adrian as [id number] [address] 2021-03-24 2021-03-24 Outpatient R SCOTT RUSSELL [facility] [id number] Univers 10:00:00 10:00:00 SCOTT RUSSELL itshauna [facility] 2021-03-23 2021-03-23 [facility] Kalina Brooks 1.2.840 .114 [id number] Univers 14:28:48 23:59:00 Encounter 1, correction Rad Oncology Linac H 35 0.1.13.10 ity of BUILDING 4.2.7.2.686 Adrian as [id number] [address] 2021-03-23 2021-03-23 Outpatient R SCOTT RUSSELL [facility] [id number] Univers 11:45:00 11:45:00 SCOTT RUSSELL itshauna [facility] 2021-03-23 2021-03-23 Rug Dyer Helper 2, Adc Lab [facility] 1.2.840.114 [id number] Univers 11:09:12 11:24:12 Visit Scott Russell 350.1.13.10 ity [facility] [place].2.7.2.[place] Profess[place] [phone] Wy dical [facility] [address] 2021-03-23 2021-03-23 [facility]ulkner[facility] 1.2.840.114 [id number] Univers 00:00:00 00:00:00 Management Maryam Dang HEALTH 350.1.13.10 ity of CLINICS [place] [id number] [place] [address] 2021-03-20 2021-03-20 [facility] Kalina Brooks 1.2.840 .114 [id number] Univers 14:18:23 23:59:00 Encounter 1, correction Rad Oncology Linac H 35 0.1.13.10 ity of [facility] 4.2.7.2.686 Adrian as [phone] [address] 2021-03-20 2021-03-20 [facility] 1.2.840.114 [id number] Univers 00:00:00 00:00:00 Management Maryam [facility] 350.1.13.10 ity of CLINICS [place] [id number] [address] 2021-03-19 2021-03-19 [facility] Kalina Brooks 1.2.840 .114 [id number] Univers 14:27:02 23:59:00 Encounter 1, correction Rad Oncology Linac H 35 0.1.13.10 ity of BUILDING 4.2.7.2.686 Adrian as [id number] [address] 2021-03-18 2021-03-18 [facility] Kalina Brooks 1.2.840 .114 [id number] Univers 14:23:00 23:59:00 Encounter 1, correction Rad Oncology Linac H 35 0.1.13.10 ity of BUILDING 4.2.7.2.686 Adrian as [id number] [address] 2021-03-17 2021-03-17 [facility] Kalina Brooks 1.2.840 .114 [id number] Univers 12:45:00 23:59:00 Encounter 1, correction Rad Oncology Linac H 35 0.1.13.10 ity of BUILDING 4.2.7.2.686 Adrian as [id number] [address] 2021-03-17 2021-03-17 Office Todd LUANNE 1.2.613.864 [id number] Univers 11:16:56 15:51:56 Visit Kalina S H 350.1.13.10 i ty of BUILDING 4.2.7.2.686 Adrian as [phone] [address] 2021-03-17 2021-03-17 Outpatient Tess BROOKS [facility] [id number] Univers 11:00:00 15:51:56 [facility] 2021-03-17 2021-03-17 Outpatient Tess LNIARES [facility] [id number] Univers 13:30:00 13:30:00 [facility] 2021-03-17 2021-03-17 Outpatient R RIK [facility] [id number] Univers 13:30:00 13:30:00 [facility] 2021-03-17 [facility] Brooks Kalina STROUD 1.2.840 .114 [id number] [facility] 12:30:00 12:44:00 Encounter 1, correction Rad Oncology Linac H 35 0.1.13.10 ity of BUILDING 4.2.7.2.686 Adrian as [id number] [address] 2021-03-17 2021-03-17 Outpatient R TODD [facility] [id number] Univers 11:00:00 11:00:00 [facility]-16 2021-03-16 [facility] 1.2.377.994 [id number] Univers 11:19:30 23:59:00 Encounter Maryam HUITRON 350.1.13.10 ity [place] [phone] Wy pili [address] 2021-03-16 2021-03-16 Rug Dyer Helper [facility] 1.2.840.114 [id number] Univers 12:47:44 13:02:44 Visit Rik, Andria SPECIALTY 350.1.13.1 0 ity [place] 4[place] [id number] Wy pili QUIJANO [address] [facility] 2021-03-16 2021-03-16 [facility] 1.2.530.601 [id number] Univers 11:00:00 11:18:00 Encounter Maryam SPECIALTY 350.1.13.10 [place] [phone] Wy pili QUIJANO 805 [facility] 2021-03-16 2021-03-16 Outpatient R [facility] [id number] Univers 08:00:00 08:00:00 MARYAM ity of [facility] 2021-03-16 2021-03-16 [facility] 1.2.840.114 [id number] Univers 00:00:00 00:00:00 Maryam Y HEALTH 350.1.13.10 i ty [place] [id number] [facility] 096 [place] 2021-03-13 2021-03-13 [facility] 1.2.840.114 [id number] Univers 00:00:00 00:00:00 Management Maryam Y HEALTH 350.1.13.10 [place] [id number] [facility] [address] 2021-03-12 2021-03-12 Emergency Harkey, TRAUMA 1.2.748.423 [id number] Univers 19:54:00 23:02:00 Graham A CENTER 350.1.13.10 [place] [id number] [facility] 014 [address] 2021-03-12 2021-03-12 [facility] 1.2.035.094 [id number] Univers 15:39:28 19:53:00 Encounter Maryam [place] 350.1.13.10 it[place] of [place] [phone] [facility] 806 [place] 2021-03-12 2021-03-12 Outpatient R LUCIE, [facility] [id number] Univers 15:39:28 19:53:00 MARYAM montemayor [facility] 2021-03-12 2021-03-12 Rug Dyer Helper 2, Adc Lab [facility] 1.2.840.114 [id number] Univers 15:09:02 15:24:02 Visit Scott Russell 350.1.13.10 [place] Profess[place] [phone] Wy dical [facility] 353 [facility] 2021-03-12 2021-03-12 Outpatient Tess FAULKNER [facility] [id number] Univers 00:00:00 00:00:00 MARYAM montemayor [facility] 2021-03-12 2021-03-12 Orders Doctor DOM 1.2.840.114 [id number] Univers 00:00:00 00:00:00 Only Unassigned, ALEXANDRE 350.1.13.10 ity of [place] [facility] 4.2.7.2.686 Adrian as [phone] [facility] 009 [address] 2021-03-12 2021-03-12 Telephone FILEMON Faulkner 1.2.840.114 [id number] Univers 00:00:00 00:00:00 Maryam Dang HEALTH 350.1.13.10 i ty [place] [id number] [facility] [address] 2021-03-10 2021-03-10 Hospital Kalina Brooks 1.2.840 .114 [id number] Univers 10:30:00 23:59:00 Encounter 1, Lashaun Decker Oncology [place] H 35 0.1.13.10 ity of BUILDING 4.2.7.2.686 Adrian as [phone] [facility] 181 [address] 2021-03-10 2021-03-10 Nurse Nurse, [facility] Infusion UNIVERSIT 1.2. 840.114 [id number] Univers 12:15:44 16:15:44 Visit Scott Russell HEALTH 350.1.13.10 it[place] of [place] [id number] [facility] [address] [place] 2021-03-10 2021-03-10 Outpatient R LUCIE, [facility] [id number] Univers 13:30:00 13:30:00 MARYAM ity of [facility] 2021-03-10 2021-03-10 Outpatient R LUCIE, [facility] [id number] Univers 13:30:00 13:30:00 MARYAM ity of [facility] 2021-03-10 2021-03-10 Office FILEMON Faulkner 1.2.840.114 [id number] Univers 12:35:43 13:05:43 Visit Maryam Y HEALTH 350.1.13.10 i ty [place] [id number] [address] 2021-03-10 2021-03-10 Outpatient R LUCIE, [facility] [id number] Univers 09:00:00 09:00:00 MARYAM ity [facility] 2021-03-09 2021-03-09 Rug Dyer Helper 2, Adc Lab [facility] 1.2.840.114 [id number] Univers 11:09:19 11:24:19 Visit Patrick Medrano 350.1.13.10 [place] of [place] Profess[place] [id number] [address] 2021-03-09 2021-03-09 Outpatient R [facility] [id number] Univers 10:30:00 10:30:00 ity of [facility] 2021-03-09 2021-03-09 Case [facility] 1.2.840.114 [id number] Univers 00:00:00 00:00:00 Management Maryam Y HEALTH 350.1.13.10 [place] [id number] [address] 2021-03-09 2021-03-09 FILEMON Nelson 1.2.840.114 [id number] Univers 00:00:00 00:00:00 Management Scott Y HEALTH 350.1.13.10 it[place] of [place] [phone] [facility] [address] 2021-03-05 2021-03-05 Hospital Kalina Brooks LASHAUNJAG 1.2.840 .114 [id number] Univers 06:00:00 23:59:00 Encounter Physics, Lashaun Carmona H 350.1.1 3.10 ity of BUILDING 4.2.7.2.686 Adrian as [phone] [facility] [address] 2021-03-05 2021-03-05 [facility] [id number] Univers 06:00:00 06:00:00 [facility] 2021-03-05 2021-03-05 Orders Doctor DOM 1.2.840.114 [id number] Univers 00:00:00 00:00:00 Only Unassigned, ALEXANDRE 350.1.13.10 ity of [place] HOSPITAL 4.2.7.2.686 Adrian as [phone] [facility] 009 [address] 2021-03-04 2021-03-04 Office Pgy2 UNIVERSIT 1.2.657.420 [id number] Univers 13:59:45 15:30:15 Visit Sylwia Nolasco [facility] 350.1.13. 10 ity of CL[place] [id number] [facility] 113 [address] 2021-03-04 2021-03-04 Outpatient Tess NOLASCO [facility] [id number] Univers 14:30:00 14:30:00 SYLWIA montemayor [facility] 2021-03-03 2021-03-03 Outpatient SCOTT GARDUNO [facility] [id number] Univers 08:30:00 08:30:00 SCOTT RUSSELL [facility] 2021-02-27 2021-02-27 Case FILEMON RussellIT 1.2.840.114 [id number] Univers 00:00:00 00:00:00 Management Scott Shauna HEALTH 350.1.13.10 ity of CL[place] [id number] [facility] 053 [address] 2021-02-26 2021-02-26 Transition Estela Yousif 1.2.840.114 [id number] Univers 00:00:00 00:00:00 of Care Stephanie Henson 350.1.13.10 ity of [place] 4.2.7.2.686 Textulio finch [id number] [facility] [address] 2021-02-19 2021-02-25 [facility] Elina Sorensen 1.2.840.8 [id number] Univers 16:40:00 16:00:00 Encounter Sylwia Nolasco 37184.1.1 ity of 3.104.2.7 [place] .3.988791 Medica l .8 Branch 2021-02-19 2021-02-19 Rug Dyer Helper Toni Rouse 1.2.840.1 [id number] Univers 12:04:01 13:09:01 Visit [facility] 39013.1.1 ity of 3.104.2.7 [place] .3.833854 Medica l .8 [place] 2021-02-19 2021-02-19 Outpatient R IBIS [facility] [id number] Univers 12:15:00 12:15:00 TONI ity of [facility] 2021-02-19 2021-02-19 Office Toni Rouse 1.2.840.1 [id number] Univers 10:16:54 12:02:29 Visit [facility], [facility] Res-1st 44634.1.1 ity of 3.104.2.7 [place] .3.155430 Medica l .8 Branch 2021-02-19 2021-02-19 Outpatient R [facility] [id number] Univers 10:15:00 10:15:00 ity of [facility] 2021-02-19 2021-02-19 Travel 1.2.840.1 1.2.772.249 [id number] Univers 00:00:00 00:00:00 71005.1.1 350.1.13.10 ity of 3.104.2.7 4[place].3.698 [place] .3.161009 084.8 Medica l .8 Branch 2021-02-16 2021-02-16 Outpatient R [facility] [id number] Univers 10:30:00 10:30:00 ity of [facility] 2021-02-09 2021-02-09 Telephone [place] 1.2.840.5 [id number] Univers 00:00:00 00:00:00 Louise, 84686.1.1 i ty of [place] 3.104.2.7 [place] .3.374470 Medica l .8 [place] 2021-02-06 2021-02-06 Office Pool, [facility] Resident UNIVERSIT 1.2.8 40.114 [id number] Univers 15:09:06 17:03:47 Visit Lissa Kyle [facility] 350.1.13.10 ity of CLINICS 4.2.7.2.686 Angela finch [phone] Medi kia [address] [place] 2021-02-06 2021-02-06 Outpatient R SAROJ [facility] [id number] Univers 15:00:00 17:03:47 LISSA ity of [facility] 2021-02-06 2021-02-06 Outpatient R [facility] [id number] Univers 15:00:00 15:00:00 ity of [facility] 2021-02-06 2021-02-06 Orders Doctor 1.2.840.1 [id number] Univers 00:00:00 00:00:00 Only Unassigned, 79743.1.1 ity of [place] 3.104.2.7 [place] .3.714153 Medica l .8 [place] 2021-02-06 2021-02-06 Travel 1.2.840.1 1.2.856.895 [id number] Univers 00:00:00 00:00:00 52243.1.1 350.1.13.10 ity of 3.104.2.7 4.2.7.3.[address] [facility] .3.385510 084.8 Medica l .8 [place] 2021-01-20 2021-01-20 [facility] [id number] Univers 13:30:00 13:30:00 KOBI perezy o f [facility] 2021-01-15 2021-01-15 Emergency Jose Cruz, 1.2.840.4 [id number] Univers 16:51:00 23:41:00 Kimberly 00706.1.1 it y of 3.104.2.7 [place] .3.091240 Medica l .8 [place] 2021-01-15 2021-01-15 Outpatient Tess TOMPKINS [facility] [id number] Univers 14:30:00 14:30:00 JAD montemayor [facility] 2021-01-15 2021-01-15 [facility] [id number] Univers 14:30:00 14:30:00 JAD montemayor [facility] 2021-01-15 2021-01-15 Orders Doctor 1.2.840.9 [id number] Univers 00:00:00 00:00:00 Only Unassigned, 04609.1.1 ity of [place] 3.104.2.7 [place] .3.106203 Medica l .8 [place] 2021-01-15 2021-01-15 Telephone Abdelrahman, 1.2.840.4 [id number] Univers 00:00:00 00:00:00 Jad Justine 86535.1.1 ity of 3.104.2.7 [place] .3.530126 Medica l .8 [place] 2021-01-15 2021-01-15 Travel 1.2.840.1 1.2.486.844 [id number] Univers 00:00:00 00:00:00 43280.1.1 350.1.13.10 ity of 3.104.2.7 4.[place].3.698 [place] .3.214744 084.8 Medica l .8 [place] 2020-12-25 2020-12-26 Emergency Drever, 1.2.840.7 [id number] Univers 18:47:00 01:16:00 Cydney Riley 76956.1.1 ity of 3.104.2.7 [place] .3.851982 Medica l .8 [place] 2020-12-25 2020-12-[address] [facility] ERT [id number] Univers 18:12:00 18:12:00 ity of [facility] 2020-12-25 2020-12-25 Travel 1.2.840.1 1.2.164.073 [id number] Univers 00:00:00 00:00:00 02929.1.1 350.1.13.10 ity of 3.104.2.7 4[place].3.698 [place] .3.972685 084.8 Medica l .8 Branch Results Test Description Test Time Test Comments Results Result Comments Source POCT HEMOGLOBIN A1C TEST 2023-04-05 19:37:00 Test Item Value Reference Range Interpretation Comme nts POCT HBA1C (test code = 4548-4) 7.0 % 4-6 A Lab Interpretation (test code = 69980-0) Abnormal [facility] HEMOGLOBIN A1C [id number] 19:37:00 Test Item Value Reference Range Interpretation Comments POCT HBA1C (test code = 4548-4) 7.0 % 4-6 A Lab Interpretation (test code = Abnormal 76797-0) [facility] GLUCOSE (AUTOMATED)2023-03-02 16:34:16 Test Item Value Reference Range Interpretation Comments POCT GLU (test code = 7189551309) 80 mg/dL 70-110 Lab Interpretation (test code = Normal 00055-0) [facility] GLUCOSE (AUTOMATED)2023-03-02 16:34:16 Test Item Value Reference Range Interpretation Comments POCT GLU (test code = 8138416282) 80 mg/dL 70-110 Lab Interpretation (test code = Normal 87241-4) [facility] HEMOGLOBIN A1C [id number] 20:00:00 Test Item Value Reference Range Interpretation Comments POCT HBA1C (test code = 4548-4) 6.4 % 4-6 A Lab Interpretation (test code = Abnormal 08981-1) [facility] HEMOGLOBIN A1C [id number] 20:00:00 Test Item Value Reference Range Interpretation Comments POCT HBA1C (test code = 4548-4) 6.4 % 4-6 A Lab Interpretation (test code = Abnormal 75873-0) [facility] GLUCOSE (AUTOMATED)2022-12-10 13:49:19 Test Item Value Reference Range Interpretation Comments POCT GLU (test code = 9941754404) 154 mg/dL 70-110 H Lab Interpretation (test code = Abnormal 01938-4) [facility] 12:49:09 Test Item Value Reference Range Interpretation Comments POCT GLU (test code = 2283435408) 148 mg/dL 70-110 H Lab Interpretation (test code = Abnormal 96618-5) [facility] GLUCOSE (AUTOMATED)2022-12-10 09:35:32 Test Item Value Reference Range Interpretation Comments POCT GLU (test code = 2473907385) 144 mg/dL 70-110 H Lab Interpretation (test code = Abnormal 30356-7) [facility] GLUCOSE (AUTOMATED)2022-12-10 05:03:51 Test Item Value Reference Range Interpretation Comments POCT GLU (test code = 4080166218) 155 mg/dL 70-110 H Lab Interpretation (test code = Abnormal 74891-9) [facility] GLUCOSE (AUTOMATED)2022-12-10 01:41:29 Test Item Value Reference Range Interpretation Comments POCT GLU (test code = 4320874148) 144 mg/dL 70-110 H Lab Interpretation (test code = Abnormal 10803-6) [facility] GLUCOSE (AUTOMATED)2022-12-09 22:29:26 Test Item Value Reference Range Interpretation Comments POCT GLU (test code = 7428006410) 216 mg/dL 70-110 H Lab Interpretation (test code = Abnormal 63385-3) [facility] GLUCOSE (AUTOMATED)2022-12-09 17:36:52 Test Item Value Reference Range Interpretation Comments POCT GLU (test code = 3122506253) 180 mg/dL 70-110 H Lab Interpretation (test code = Abnormal 33072-6) [facility] 16:56:18 Test Item Value Reference Range Interpretation Comments POCT GLU (test code = 5246096985) 201 mg/dL 70-110 H Lab Interpretation (test code = Abnormal 03942-5) [facility] GLUCOSE (AUTOMATED)2022-12-09 13:23:24 Test Item Value Reference Range Interpretation Comments POCT GLU (test code = 6382197683) 181 mg/dL 70-110 H Lab Interpretation (test code = Abnormal 57946-2) [facility] GLUCOSE (AUTOMATED)2022-12-09 09:41:45 Test Item Value Reference Range Interpretation Comments POCT GLU (test code = 2503211398) 131 mg/dL 70-110 H Lab Interpretation (test code = Abnormal 42568-5) [facility] GLUCOSE (AUTOMATED)2022-12-09 05:33:12 Test Item Value Reference Range Interpretation Comments POCT GLU (test code = 3123334627) 174 mg/dL 70-110 H Lab Interpretation (test code = Abnormal 43911-5) [facility] GLUCOSE (AUTOMATED)2022-12-09 01:37:44 Test Item Value Reference Range Interpretation Comments POCT GLU (test code = 5156299172) 200 mg/dL 70-110 H Lab Interpretation (test code = Abnormal 30921-1) [facility] GLUCOSE (AUTOMATED)2022-12-08 22:21:38 Test Item Value Reference Range Interpretation Comments POCT GLU (test code = 3387952828) 207 mg/dL 70-110 H Lab Interpretation (test code = Abnormal 53790-9) [facility] GLUCOSE (AUTOMATED)2022-12-08 16:50:07 Test Item Value Reference Range Interpretation Comments POCT GLU (test code = 5169386173) 191 mg/dL 70-110 H Lab Interpretation (test code = Abnormal 79583-1) [facility] GLUCOSE (AUTOMATED)2022-12-08 03:02:11 Test Item Value Reference Range Interpretation Comments POCT GLU (test code = 8104627650) 176 mg/dL 70-110 H Lab Interpretation (test code = Abnormal 51995-8) [facility] GLUCOSE (AUTOMATED)2022-12-07 23:05:33 Test Item Value Reference Range Interpretation Comments POCT GLU (test code = 6232778321) 226 mg/dL 70-110 H Lab Interpretation (test code = Abnormal 30028-4) [facility] GLUCOSE (AUTOMATED)2022-12-07 21:39:50 Test Item Value Reference Range Interpretation Comments POCT GLU (test code = 3228615992) 215 mg/dL 70-110 H Lab Interpretation (test code = Abnormal 05243-3) [facility] GLUCOSE (AUTOMATED)2022-12-07 17:34:24 Test Item Value Reference Range Interpretation Comments POCT GLU (test code = 3796888978) 212 mg/dL 70-110 H Lab Interpretation (test code = Abnormal 95303-6) [facility] GLUCOSE (AUTOMATED)2022-12-07 13:48:15 Test Item Value Reference Range Interpretation Comments POCT GLU (test code = 7842310458) 157 mg/dL 70-110 H Lab Interpretation (test code = Abnormal 84218-3) [facility] GLUCOSE (AUTOMATED)2022-12-07 02:52:37 Test Item Value Reference Range Interpretation Comments POCT GLU (test code = 8476548615) 237 mg/dL 70-110 H Lab Interpretation (test code = Abnormal 90241-7) [facility] GLUCOSE (AUTOMATED)2022-12-06 21:12:23 Test Item Value Reference Range Interpretation Comments POCT GLU (test code = 2404055187) 197 mg/dL 70-110 H Lab Interpretation (test code = Abnormal 70298-3) [facility] GLUCOSE (AUTOMATED)2022-12-06 17:42:06 Test Item Value Reference Range Interpretation Comments POCT GLU (test code = 7593134919) 230 mg/dL 70-110 H Lab Interpretation (test code = Abnormal 17131-4) [facility] GLUCOSE (AUTOMATED)2022-12-06 13:06:50 Test Item Value Reference Range Interpretation Comments POCT GLU (test code = 9409239791) 235 mg/dL 70-110 H Lab Interpretation (test code = Abnormal 36312-4) [facility] 12:04:13 Test Item Value Reference Range Interpretation Comments PHOSPHORUS (test code = 0963379014) 3.7 mg/dL 2.5-5.0 Lab Interpretation (test code = Normal 73382-6) [facility] 12:04:13 Test Item Value Reference Range Interpretation Comments MAGNESIUM (test code = 5064932380) 1.7 mg/dL 1.7-2.4 Lab Interpretation (test code = Normal 86116-2) [facility] GLUCOSE (AUTOMATED)2022-12-06 01:46:08 Test Item Value Reference Range Interpretation Comments POCT GLU (test code = 4755645642) 249 mg/dL 70-110 H Lab Interpretation (test code = Abnormal 61678-0) [facility] GLUCOSE (AUTOMATED)2022-12-05 21:54:58 Test Item Value Reference Range Interpretation Comments POCT GLU (test code = 8387387799) 271 mg/dL 70-110 H Lab Interpretation (test code = Abnormal 38026-5) [facility] GLUCOSE (AUTOMATED)2022-12-05 16:53:59 Test Item Value Reference Range Interpretation Comments POCT GLU (test code = 6508126456) 224 mg/dL 70-110 H Lab Interpretation (test code = Abnormal 02583-4) [facility] GLUCOSE (AUTOMATED)2022-12-05 13:10:34 Test Item Value Reference Range Interpretation Comments POCT GLU (test code = 6455088290) 250 mg/dL 70-110 H Lab Interpretation (test code = Abnormal 46344-2) [facility] WITH [id number] 10:59:59 Test Item Value Reference Range Interpretation Comments WBC (test code = 9.37 See_Comment [Automated 6690-2) message] The sy stem which generated this result transmitted reference range : 4.30 - 11.10 10*3/?L. The reference range was not used to interpret this result as normal/abnormal . RBC (test code = 2.38 See_Comment L [Automated 969-8) message] The sy stem which generated this result transmitted reference range : 3.93 - 5.25 10*6/?L. The reference range was not used to interpret this result as normal/abnormal . HGB (test code = 6.4 g/dL 11.6-15.0 L 718-7) HCT (test code = 20.4 % 35.7-45.2 L 4544-3) MCV (test code = 85.7 fL 80.6-95.5 787-2) MCH (test code = 26.9 pg 25.9-32.8 785-6) MCHC (test code = 31.4 g/dL 31.6-35.1 L 786-4) RDW-SD (test code = 51.0 fL 39.0-49.9 H 21827-5) RDW-CV (test code = 16.6 % 12.0-15.5 H 788-0) PLT (test code = 452 See_Comment H [Automated 777-3) message] The sy stem which generated this result transmitted reference range : 166 - 358 10*3/ ?L. The reference r cristian was not used to interpret this result as normal/abnormal . MPV (test code = 8.7 fL 9.5-12.9 L 29948-2) NRBC/100 WBC (test 2.9 See_Comment [Automat ed code = 8871565458) message] The system which generated this result transmitted reference range : 0.0 - 10.0 /100 WBCs. The refer ence range was not u sed to interpret th is result as normal/abnormal . NRBC x10^3 (test code 0.27 See_Comment [Auto mated = 8026946350) message] The s ystem which generated this result transmitted reference range : 10*3/?L. The reference range was not used to interpret this result as normal/abnormal . GRAN MAT (NEUT) % 63.0 % (test code = 770-8) IMM GRAN % (test code 9.60 % = 6269824122) LYMPH % (test code = 16.1 % 736-9) MONO % (test code = 7.9 % 5905-5) EOS % (test code = 3.1 % 713-8) BASO % (test code = 0.3 % 706-2) GRAN MAT x10^3(ANC) 5.90 10*3/uL 1.88-7.09 (test code = 8163764443) IMM GRAN x10^3 (test 0.90 10*3/uL 0.00-0.06 H code = 2501123266) LYMPH x10^3 (test code 1.51 10*3/uL 1.32-3.29 = 731-0) MONO x10^3 (test code 0.74 10*3/uL 0.33-0.92 = 742-7) EOS x10^3 (test code = 0.29 10*3/uL 0.03-0.39 711-2) BASO x10^3 (test code 0.03 10*3/uL 0.01-0.07 = 704-7) Lab Interpretation Abnormal (test code = 21189-7) [facility] 10:42:52 Test Item Value Reference Range Interpretation Comments PHOSPHORUS (test code = 7138859305) 3.9 mg/dL 2.5-5.0 Lab Interpretation (test code = Normal 54975-6) [facility] 10:42:52 Test Item Value Reference Range Interpretation Comments MAGNESIUM (test code = 1548209706) 1.9 mg/dL 1.7-2.4 Lab Interpretation (test code = Normal 04486-2) [facility] (NA, K, CL, CO2, GLUCOSE, BUN, CREATININE, CA)2022-12-05 10:42:52 Test Item Value Reference Range Interpretation Comments NA (test code = 138 mmol/L 135-145 3689453587) K (test code = 4.1 mmol/L 3.5-5.0 9984071840) CL (test code = 103 mmol/L 98-108 4870297922) CO2 TOTAL (test code = 30 mmol/L 23-31 3680948640) AGAP (test code = 5 2-16 1827995887) BUN (test code = 28 mg/dL 7-23 H 8281297615) GLUCOSE (test code = 142 mg/dL 70-110 H 6323702396) CREATININE (test code = 1.09 mg/dL 0.50-1.04 H 1141615345) CALCIUM (test code = 8.1 mg/dL 8.6-10.6 L 7120707165) eGFR (test code = 52.5 mL/min/1.73m2 6378690758) GALLITO (test code = GALLITO) Association of Glomerular Filtration Rate (GFR) and Staging of Kidney Disease* + --+ --+ ------+| GFR (mL/min/1.73 m2) ?| With Kidney Damage ?| ?Without Kidney Damage+ --------+ --------+ +| ?>90 ?| ?Stage one ?| ? Normal ?+ ---+ ---+ -------+| ?60-89 ?| ?Stage two ?| ? Decreased GFR ? + --+ --+ ------+| ?30-59 ?| ?Stage three ?| ? Stage three ? + --+ --+ ------+| ?15-29 ?| ?Stage four ? | ? Stage four ?+ ---+ ---+ -------+| ?<15 (or dialysis) ? ?| ?Stage five ? | ? Stage five ?+ ---+ ---+ -------+ *Each stage assumes the associated GFR level has been in effect for at least three months. ?Stages 1 to 5, with or without kidney disease, indicate chronic kidney disease. Notes: Determination of stages one and two (with eGFR >59mL/min/1.73 m2) requires estimation of kidney damage for at least three months as defined by structural or functional abnormalities of the kidney, manifested by either:Pathological abnormalities or Markers of kidney damage (including abnormalities in the composition of the blood or urine or abnormalities in imaging tests). Lab Interpretation Abnormal (test code = 34591-2) [facility] GLUCOSE (AUTOMATED)2022-12-05 01:41:26 Test Item Value Reference Range Interpretation Comments POCT GLU (test code = 8709218001) 223 mg/dL 70-110 H Lab Interpretation (test code = Abnormal 98763-1) [facility] GLUCOSE (AUTOMATED)2022-12-04 22:59:32 Test Item Value Reference Range Interpretation Comments POCT GLU (test code = 8316494561) 212 mg/dL 70-110 H Lab Interpretation (test code = Abnormal 90590-9) [facility] - Peripheral # [id number] 22:01:12 Test Item Value Reference Range Interpretation Comments Blood Culture-Aerobic No organisms No growth Previo us (test code = 66746-0) isolated prelim inary verified result was Culture In Progress on 11/29/2022 at 200 1 CDTPrevious preliminary verified result was No growth a t 24 hours on 11/30/2022 at 170 1 CDTPrevious preliminary verified result was No growth a t 48 hours on 12/01/2022 at 170 2 CDTPrevious preliminary verified result was No growth a t 72 hours on 12/02/2022 at 170 2 CDT Blood No organisms No growth Previous Culture-Anaerobic isolated preliminar y (test code = 18007-3) verifi ed result was Culture In Progress on 11/29/2022 at 200 1 CDTPrevious preliminary verified result was No growth a t 24 hours on 11/30/2022 at 170 1 CDTPrevious preliminary verified result was No growth a t 48 hours on 12/01/2022 at 170 2 CDTPrevious preliminary verified result was No growth a t 72 hours on 12/02/2022 at 170 2 CDT Lab Interpretation Normal (test code = 25612-2) [facility] Culture - Peripheral # [id number] 22:01:12 Test Item Value Reference Range Interpretation Comments Blood Culture-Aerobic No organisms No growth Previo us (test code = 64964-1) isolated prelim inary verified result was Culture In Progress on 11/29/2022 at 200 2 CDTPrevious preliminary verified result was No growth a t 24 hours on 11/30/2022 at 170 1 CDTPrevious preliminary verified result was No growth a t 48 hours on 12/01/2022 at 170 2 CDTPrevious preliminary verified result was No growth a t 72 hours on 12/02/2022 at 170 2 CDT Blood No organisms No growth Previous Culture-Anaerobic isolated preliminar y (test code = 39350-6) verifi ed result was Culture In Progress on 11/29/2022 at 200 2 CDTPrevious preliminary verified result was No growth a t 24 hours on 11/30/2022 at 170 1 CDTPrevious preliminary verified result was No growth a t 48 hours on 12/01/2022 at 170 2 CDTPrevious preliminary verified result was No growth a t 72 hours on 12/02/2022 at 170 2 CDT Lab Interpretation Normal (test code = 88932-4) [facility] GLUCOSE (AUTOMATED)2022-12-04 17:06:06 Test Item Value Reference Range Interpretation Comments POCT GLU (test code = 2547090922) 158 mg/dL 70-110 H Lab Interpretation (test code = Abnormal 32032-3) [facility] GLUCOSE (AUTOMATED)2022-12-04 13:05:56 Test Item Value Reference Range Interpretation Comments POCT GLU (test code = 5720001303) 116 mg/dL 70-110 H Lab Interpretation (test code = Abnormal 75104-3) [facility] WITH [id number] 11:10:35 Test Item Value Reference Range Interpretation Comments WBC (test code = 9.24 See_Comment [Automated 6690-2) message] The sy stem which generated this result transmitted reference range : 4.30 - 11.10 10*3/?L. The reference range was not used to interpret this result as normal/abnormal . RBC (test code = 2.48 See_Comment L [Automated 789-8) message] The sy stem which generated this result transmitted reference range : 3.93 - 5.25 10*6/?L. The reference range was not used to interpret this result as normal/abnormal . HGB (test code = 6.5 g/dL 11.6-15.0 L 718-7) HCT (test code = 21.0 % 35.7-45.2 L 4544-3) MCV (test code = 84.7 fL 80.6-95.5 787-2) MCH (test code = 26.2 pg 25.9-32.8 785-6) MCHC (test code = 31.0 g/dL 31.6-35.1 L 786-4) RDW-SD (test code = 50.5 fL 39.0-49.9 H 19467-9) RDW-CV (test code = 16.4 % 12.0-15.5 H 788-0) PLT (test code = 412 See_Comment H [Automated 777-3) message] The sy stem which generated this result transmitted reference range : 166 - 358 10*3/ ?L. The reference r cristian was not used to interpret this result as normal/abnormal . MPV (test code = 9.1 fL 9.5-12.9 L 01484-0) NRBC/100 WBC (test 1.6 See_Comment [Automat ed code = 1112677941) message] The system which generated this result transmitted reference range : 0.0 - 10.0 /100 WBCs. The refer ence range was not u sed to interpret th is result as normal/abnormal . NRBC x10^3 (test code 0.15 See_Comment [Auto mated = 9066296305) message] The s ystem which generated this result transmitted reference range : 10*3/?L. The reference range was not used to interpret this result as normal/abnormal . GRAN MAT (NEUT) % 65.4 % (test code = 770-8) IMM GRAN % (test code 6.30 % = 2688666111) LYMPH % (test code = 17.9 % 736-9) MONO % (test code = 7.3 % 5905-5) EOS % (test code = 2.7 % 713-8) BASO % (test code = 0.4 % 706-2) GRAN MAT x10^3(ANC) 6.05 10*3/uL 1.88-7.09 (test code = 8856098716) IMM GRAN x10^3 (test 0.58 10*3/uL 0.00-0.06 H code = 5548166816) LYMPH x10^3 (test code 1.65 10*3/uL 1.32-3.29 = 731-0) MONO x10^3 (test code 0.67 10*3/uL 0.33-0.92 = 742-7) EOS x10^3 (test code = 0.25 10*3/uL 0.03-0.39 711-2) BASO x10^3 (test code 0.04 10*3/uL 0.01-0.07 = 704-7) Lab Interpretation Abnormal (test code = 00805-1) [facility] Test Item Value Reference Range Interpretation Comments PHOSPHORUS (test code = 1894839540) 4.4 mg/dL 2.5-5.0 Lab Interpretation (test code = Normal 24392-0) [facility] (NA, K, CL, CO2, GLUCOSE, BUN, CREATININE, CA)2022-12-04 10:47:27 Test Item Value Reference Range Interpretation Comments NA (test code = 135 mmol/L 135-145 5057119644) K (test code = 3.8 mmol/L 3.5-5.0 2875828589) CL (test code = 101 mmol/L 98-108 5148618278) CO2 TOTAL (test code = 27 mmol/L 23-31 4398174168) AGAP (test code = 7 2-16 1925557494) BUN (test code = 31 mg/dL 7-23 H 1054447954) GLUCOSE (test code = 108 mg/dL 70-110 8716203111) CREATININE (test code = 1.42 mg/dL 0.50-1.04 H 7219926043) CALCIUM (test code = 7.9 mg/dL 8.6-10.6 L 0357749803) eGFR (test code = 38.7 mL/min/1.73m2 2682822756) GALLITO (test code = GALLITO) Association of Glomerular Filtration Rate (GFR) and Staging of Kidney Disease* + --+ --+ ------+| GFR (mL/min/1.73 m2) ?| With Kidney Damage ?| ?Without Kidney Damage+ --------+ --------+ +| ?>90 ?| ?Stage one ?| ? Normal ?+ ---+ ---+ -------+| ?60-89 ?| ?Stage two ?| ? Decreased GFR ? + --+ --+ ------+| ?30-59 ?| ?Stage three ?| ? Stage three ? + --+ --+ ------+| ?15-29 ?| ?Stage four ? | ? Stage four ?+ ---+ ---+ -------+| ?<15 (or dialysis) ? ?| ?Stage five ? | ? Stage five ?+ ---+ ---+ -------+ *Each stage assumes the associated GFR level has been in effect for at least three months. ?Stages 1 to 5, with or without kidney disease, indicate chronic kidney disease. Notes: Determination of stages one and two (with eGFR >59mL/min/1.73 m2) requires estimation of kidney damage for at least three months as defined by structural or functional abnormalities of the kidney, manifested by either:Pathological abnormalities or Markers of kidney damage (including abnormalities in the composition of the blood or urine or abnormalities in imaging tests). Lab Interpretation Abnormal (test code = 54354-8) [facility]06 Test Item Value Reference Range Interpretation Comments MAGNESIUM (test code = 5155085745) 2.3 mg/dL 1.7-2.4 Lab Interpretation (test code = Normal 89074-9) [facility] 09:15:19 Test Item Value Reference Range Interpretation Comments POCT GLU (test code = 2618857062) 130 mg/dL 70-110 H Lab Interpretation (test code = Abnormal 16714-7) [facility] GLUCOSE (AUTOMATED)2022-12-04 05:01:00 Test Item Value Reference Range Interpretation Comments POCT GLU (test code = 3593940484) 127 mg/dL 70-110 H Lab Interpretation (test code = Abnormal 58835-2) [facility] GLUCOSE (AUTOMATED)2022-12-04 01:10:20 Test Item Value Reference Range Interpretation Comments POCT GLU (test code = 9309566561) 162 mg/dL 70-110 H Lab Interpretation (test code = Abnormal 87854-2) [facility] GLUCOSE (AUTOMATED)2022-12-03 21:49:29 Test Item Value Reference Range Interpretation Comments POCT GLU (test code = 5660222838) 220 mg/dL 70-110 H Lab Interpretation (test code = Abnormal 66233-0) [facility] GLUCOSE (AUTOMATED)2022-12-03 17:02:56 Test Item Value Reference Range Interpretation Comments POCT GLU (test code = 9319613475) 197 mg/dL 70-110 H Lab Interpretation (test code = Abnormal 77631-5) [facility] GLUCOSE (AUTOMATED)2022-12-03 17:02:56 Test Item Value Reference Range Interpretation Comments POCT GLU (test code = 7431294957) 197 mg/dL 70-110 H Lab Interpretation (test code = Abnormal 84440-6) [facility] GLUCOSE (AUTOMATED)2022-12-03 12:25:48 Test Item Value Reference Range Interpretation Comments POCT GLU (test code = 6177822454) 262 mg/dL 70-110 H Lab Interpretation (test code = Abnormal 04424-7) [facility] GLUCOSE (AUTOMATED)2022-12-03 12:25:48 Test Item Value Reference Range Interpretation Comments POCT GLU (test code = 8714768087) 262 mg/dL 70-110 H Lab Interpretation (test code = Abnormal 88193-1) [facility] METABOLIC PANEL (NA, K, CL, CO2, GLUCOSE, BUN, CREATININE, CA)2022-12-03 10:31:33 Test Item Value Reference Range Interpretation Comments NA (test code = 130 mmol/L 135-145 L 6539757065) K (test code = 4.5 mmol/L 3.5-5.0 5428982320) CL (test code = 99 mmol/L 98-108 7873268151) CO2 TOTAL (test code = 25 mmol/L 23-31 1338305919) AGAP (test code = 6 2-16 5131434866) BUN (test code = 26 mg/dL 7-23 H 2762708957) GLUCOSE (test code = 260 mg/dL 70-110 H 7058587728) CREATININE (test code = 1.24 mg/dL 0.50-1.04 H 9286504429) CALCIUM (test code = 7.5 mg/dL 8.6-10.6 L 0586933480) eGFR (test code = 45.2 mL/min/1.73m2 8389005826) GALLITO (test code = GALLITO) Association of Glomerular Filtration Rate (GFR) and Staging of Kidney Disease* + --+ --+ ------+| GFR (mL/min/1.73 m2) ?| With Kidney Damage ?| ?Without Kidney Damage+ --------+ --------+ +| ?>90 ?| ?Stage one ?| ? Normal ?+ ---+ ---+ -------+| ?60-89 ?| ?Stage two ?| ? Decreased GFR ? + --+ --+ ------+| ?30-59 ?| ?Stage three ?| ? Stage three ? + --+ --+ ------+| ?15-29 ?| ?Stage four ? | ? Stage four ?+ ---+ ---+ -------+| ?<15 (or dialysis) ? ?| ?Stage five ? | ? Stage five ?+ ---+ ---+ -------+ *Each stage assumes the associated GFR level has been in effect for at least three months. ?Stages 1 to 5, with or without kidney disease, indicate chronic kidney disease. Notes: Determination of stages one and two (with eGFR >59mL/min/1.73 m2) requires estimation of kidney damage for at least three months as defined by structural or functional abnormalities of the kidney, manifested by either:Pathological abnormalities or Markers of kidney damage (including abnormalities in the composition of the blood or urine or abnormalities in imaging tests). Lab Interpretation Abnormal (test code = 49054-3) [facility] METABOLIC PANEL (NA, K, CL, CO2, GLUCOSE, BUN, CREATININE, CA)2022-12-03 10:31:33 Test Item Value Reference Range Interpretation Comments NA (test code = 130 mmol/L 135-145 L 1808763770) K (test code = 4.5 mmol/L 3.5-5.0 4115532696) CL (test code = 99 mmol/L 98-108 7003277110) CO2 TOTAL (test code = 25 mmol/L 23-31 2161337009) AGAP (test code = 6 2-16 2727605476) BUN (test code = 26 mg/dL 7-23 H 7031557027) GLUCOSE (test code = 260 mg/dL 70-110 H 8506334088) CREATININE (test code = 1.24 mg/dL 0.50-1.04 H 1607173634) CALCIUM (test code = 7.5 mg/dL 8.6-10.6 L 3301430964) eGFR (test code = 45.2 mL/min/1.73m2 7781742031) GALLITO (test code = GALLITO) Association of Glomerular Filtration Rate (GFR) and Staging of Kidney Disease* + --+ --+ ------+| GFR (mL/min/1.73 m2) ?| With Kidney Damage ?| ?Without Kidney Damage+ --------+ --------+ +| ?>90 ?| ?Stage one ?| ? Normal ?+ ---+ ---+ -------+| ?60-89 ?| ?Stage two ?| ? Decreased GFR ? + --+ --+ ------+| ?30-59 ?| ?Stage three ?| ? Stage three ? + --+ --+ ------+| ?15-29 ?| ?Stage four ? | ? Stage four ?+ ---+ ---+ -------+| ?<15 (or dialysis) ? ?| ?Stage five ? | ? Stage five ?+ ---+ ---+ -------+ *Each stage assumes the associated GFR level has been in effect for at least three months. ?Stages 1 to 5, with or without kidney disease, indicate chronic kidney disease. Notes: Determination of stages one and two (with eGFR >59mL/min/1.73 m2) requires estimation of kidney damage for at least three months as defined by structural or functional abnormalities of the kidney, manifested by either:Pathological abnormalities or Markers of kidney damage (including abnormalities in the composition of the blood or urine or abnormalities in imaging tests). Lab Interpretation Abnormal (test code = 30214-4) [facility] 09[facility]40:33 Test Item Value Reference Range Interpretation Comments PHOSPHORUS (test code = 6848859191) 4.9 mg/dL 2.5-5.0 Lab Interpretation (test code = Normal 04518-6) [facility] 09:40:33 Test Item Value Reference Range Interpretation Comments PHOSPHORUS (test code = 1469140041) 4.9 mg/dL 2.5-5.0 Lab Interpretation (test code = Normal 23536-5) [facility] 09:39:33 Test Item Value Reference Range Interpretation Comments MAGNESIUM (test code = 0851603078) 2.1 mg/dL 1.7-2.4 Lab Interpretation (test code = Normal 42779-0) [facility] Test Item Value Reference Range Interpretation Comments MAGNESIUM (test code = 2640833820) 2.1 mg/dL 1.7-2.4 Lab Interpretation (test code = Normal 55692-8) [facility] GLUCOSE (AUTOMATED)2022-12-03 09:28:57 Test Item Value Reference Range Interpretation Comments POCT GLU (test code = 7281130401) 303 mg/dL 70-110 H Lab Interpretation (test code = Abnormal 40337-4) [facility] GLUCOSE (AUTOMATED)2022-12-03 09:28:57 Test Item Value Reference Range Interpretation Comments POCT GLU (test code = 6994449670) 303 mg/dL 70-110 H Lab Interpretation (test code = Abnormal 69978-3) [facility] WITH [id number] 09:27:11 Test Item Value Reference Range Interpretation Comments WBC (test code = 11.84 See_Comment H [Automated 6690-2) message] The system which generated this result transmit jordan reference range : 4.30 - 11.10 10*3/?L. The reference range was not used to interpret this result as normal/abnormal . RBC (test code = 2.64 See_Comment L [Automated 789-8) message] The system which generated this result transmit jordan reference range : 3.93 - 5.25 10*6/?L. The reference range was not used to interpret this result as normal/abnormal . HGB (test code = 7.1 g/dL 11.6-15.0 L 718-7) HCT (test code = 22.0 % 35.7-45.2 L 4544-3) MCV (test code = 83.3 fL 80.6-95.5 787-2) MCH (test code = 26.9 pg 25.9-32.8 785-6) MCHC (test code = 32.3 g/dL 31.6-35.1 786-4) RDW-SD (test code = 49.3 fL 39.0-49.9 24817-2) RDW-CV (test code = 16.3 % 12.0-15.5 H 788-0) PLT (test code = 360 See_Comment H [Automated 777-3) message] The system which generated this result transmit jordan reference range : 166 - 358 10*3/ ?L. The reference range was not u sed to interpret th is result as normal/abnormal . MPV (test code = 9.4 fL 9.5-12.9 L 69417-7) NRBC/100 WBC (test 0.2 See_Comment [Automat ed code = 4746377864) message] The system which generated this result transmit jordan reference range : 0.0 - 10.0 /100 WBCs. The reference range was not used to interpret this result as normal/abnormal . NRBC x10^3 (test code 0.02 See_Comment [Auto mated = 6590853703) message] The system which generated this result transmit jordan reference range : 10*3/?L. The reference range was not used to interpret this result as normal/abnormal . GRAN MAT (NEUT) % 89.5 % (test code = 770-8) IMM GRAN % (test code 1.90 % = 5147950028) LYMPH % (test code = 5.2 % 736-9) MONO % (test code = 3.2 % 5905-5) EOS % (test code = 0.0 % 713-8) BASO % (test code = 0.2 % 706-2) GRAN MAT x10^3(ANC) 10.59 10*3/uL 1.88-7.09 H (test code = 6632413312) IMM GRAN x10^3 (test 0.23 10*3/uL 0.00-0.06 H code = 1497925746) LYMPH x10^3 (test code 0.62 10*3/uL 1.32-3.29 L = 731-0) MONO x10^3 (test code 0.38 10*3/uL 0.33-0.92 = 742-7) EOS x10^3 (test code = 0.03-0.39 L 711-2) BASO x10^3 (test code 0.01-0.07 = 704-7) Lab Interpretation Abnormal (test code = 05805-2) [facility] WITH [id number] 09:27:11 Test Item Value Reference Range Interpretation Comments WBC (test code = 11.84 See_Comment H [Automated 6690-2) message] The system which generated this result transmit jordan reference range : 4.30 - 11.10 10*3/?L. The reference range was not used to interpret this result as normal/abnormal . RBC (test code = 2.64 See_Comment L [Automated 229-8) message] The system which generated this result transmit jordan reference range : 3.93 - 5.25 10*6/?L. The reference range was not used to interpret this result as normal/abnormal . HGB (test code = 7.1 g/dL 11.6-15.0 L 718-7) HCT (test code = 22.0 % 35.7-45.2 L 4544-3) MCV (test code = 83.3 fL 80.6-95.5 787-2) MCH (test code = 26.9 pg 25.9-32.8 785-6) MCHC (test code = 32.3 g/dL 31.6-35.1 786-4) RDW-SD (test code = 49.3 fL 39.0-49.9 73587-6) RDW-CV (test code = 16.3 % 12.0-15.5 H 788-0) PLT (test code = 360 See_Comment H [Automated 777-3) message] The system which generated this result transmit jordan reference range : 166 - 358 10*3/ ?L. The reference range was not u sed to interpret th is result as normal/abnormal . MPV (test code = 9.4 fL 9.5-12.9 L 45461-5) NRBC/100 WBC (test 0.2 See_Comment [Automat ed code = 0289253820) message] The system which generated this result transmit jordan reference range : 0.0 - 10.0 /100 WBCs. The reference range was not used to interpret this result as normal/abnormal . NRBC x10^3 (test code 0.02 See_Comment [Auto mated = 0586662539) message] The system which generated this result transmit jordan reference range : 10*3/?L. The reference range was not used to interpret this result as normal/abnormal . GRAN MAT (NEUT) % 89.5 % (test code = 770-8) IMM GRAN % (test code 1.90 % = 8852502195) LYMPH % (test code = 5.2 % 736-9) MONO % (test code = 3.2 % 5905-5) EOS % (test code = 0.0 % 713-8) BASO % (test code = 0.2 % 706-2) GRAN MAT x10^3(ANC) 10.59 10*3/uL 1.88-7.09 H (test code = 0210669822) IMM GRAN x10^3 (test 0.23 10*3/uL 0.00-0.06 H code = 8844307751) LYMPH x10^3 (test code 0.62 10*3/uL 1.32-3.29 L = 731-0) MONO x10^3 (test code 0.38 10*3/uL 0.33-0.92 = 742-7) EOS x10^3 (test code = 0.03-0.39 L 711-2) BASO x10^3 (test code 0.01-0.07 = 704-7) Lab Interpretation Abnormal (test code = 26764-0) [facility] GLUCOSE (AUTOMATED)2022-12-03 05:27:02 Test Item Value Reference Range Interpretation Comments POCT GLU (test code = 5037729087) 348 mg/dL 70-110 H Lab Interpretation (test code = Abnormal 73414-4) [facility] GLUCOSE (AUTOMATED)2022-12-03 05:27:02 Test Item Value Reference Range Interpretation Comments POCT GLU (test code = 6066653132) 348 mg/dL 70-110 H Lab Interpretation (test code = Abnormal 43449-2) [facility] GLUCOSE (AUTOMATED)2022-12-03 04:10:24 Test Item Value Reference Range Interpretation Comments POCT GLU (test code = 9306976085) 365 mg/dL 70-110 H Lab Interpretation (test code = Abnormal 62579-1) [facility] GLUCOSE (AUTOMATED)2022-12-03 04:10:24 Test Item Value Reference Range Interpretation Comments POCT GLU (test code = 7989247082) 365 mg/dL 70-110 H Lab Interpretation (test code = Abnormal 72649-2) [facility] GLUCOSE (AUTOMATED)2022-12-03 02:32:18 Test Item Value Reference Range Interpretation Comments POCT GLU (test code = 6028917821) 429 mg/dL 70-110 H Lab Interpretation (test code = Abnormal 05792-6) [facility] GLUCOSE (AUTOMATED)2022-12-03 02:32:18 Test Item Value Reference Range Interpretation Comments POCT GLU (test code = 7182069404) 429 mg/dL 70-110 H Lab Interpretation (test code = Abnormal 66884-7) [facility]CA2[facility]-12-03 01:52:17 Test Item Value Reference Range Interpretation Comments PH (test code = 7.30 7.32-7.42 L 0012326390) PCO2 ANNIE (test code = 46 See_Comment [Auto mated message] 6903315854) The system [employer] generated this result transmit jordan reference range : 41 - 51 mmHg. The reference range was not used to interpret this result as normal/abnormal . PO2 ANNIE (test code = 97 See_Comment HH [Autom ated message] 6805877915) The system [employer] generated this result transmit jordan reference range : 25 - 40 mmHg. The reference range was not used to interpret this result as normal/abnormal . HCO3 ANNIE (test code = 22 See_Comment L [Auto mated message] 2869228582) The system [employer] generated this result transmit jordan reference range : 24 - 28 mEq/L. The reference range was not used to interpret this result as normal/abnormal . AC VBE(BEAKER) (test -3.9 mEq/L code = 8032804049) THB ANNIE (test code = 7.5 g/dL 12.0-16.0 LL 5930069145) %O2HB NANIE (test code = 96.8 % 52.0-63.0 H 7935537300) %COHB ANNIE (test code = 0.3 % 0.0-1.5 3393466648) %METHB ANNIE (test code = 0.4 % 0.4-1.5 8129742653) VOL%O2 ANNIE (test code = 10.4 % 6.0-12.0 QUES 7738809808) NA (test code = 132 mmol/L 135-145 L 3978323105) K+ (test code = 3.5 mmol/L 3.5-5.0 9551931710) AC CA IONZ (test code = 4.20 mg/dL 4.50-5.30 L 3780318407) GLUCOSE (test code = 124 mg/dL 70-110 H 8997125999) Lab Interpretation Abnormal (test code = 09910-8) [facility]CA2[facility]22-12-03 01:52:17 Test Item Value Reference Range Interpretation Comments PH (test code = 7.30 7.32-7.42 L 0185696060) PCO2 ANNIE (test code = 46 See_Comment [Auto mated message] 2338742849) The system [employer] generated this result transmit jordan reference range : 41 - 51 mmHg. The reference range was not used to interpret this result as normal/abnormal . PO2 ANNIE (test code = 97 See_Comment HH [Autom ated message] 3155395273) The system [employer] generated this result transmit jordan reference range : 25 - 40 mmHg. The reference range was not used to interpret this result as normal/abnormal . HCO3 ANNIE (test code = 22 See_Comment L [Auto mated message] 0980647038) The system [employer] generated this result transmit jordan reference range : 24 - 28 mEq/L. The reference range was not used to interpret this result as normal/abnormal . AC VBE(BEAKER) (test -3.9 mEq/L code = 0344153686) THB ANNIE (test code = 7.5 g/dL 12.0-16.0 LL 4475735535) %O2HB ANNIE (test code = 96.8 % 52.0-63.0 H 8763852357) %COHB ANNIE (test code = 0.3 % 0.0-1.5 8015077265) %METHB ANNIE (test code = 0.4 % 0.4-1.5 3514664398) VOL%O2 ANNIE (test code = 10.4 % 6.0-12.0 QUES 5656974190) NA (test code = 132 mmol/L 135-145 L 3292738583) K+ (test code = 3.5 mmol/L 3.5-5.0 4265219178) AC CA IONZ (test code = 4.20 mg/dL 4.50-5.30 L 5023707005) GLUCOSE (test code = 124 mg/dL 70-110 H 3216223069) Lab Interpretation Abnormal (test code = 52786-7) [facility] GLUCOSE (AUTOMATED)2022-12-03 00:34:27 Test Item Value Reference Range Interpretation Comments POCT GLU (test code = 326 mg/dL 70-110 H Notifi ed Provider 1008892582) Lab Interpretation (test Abnormal code = 91601-3) [facility] GLUCOSE (AUTOMATED)2022-12-03 00:34:27 Test Item Value Reference Range Interpretation Comments POCT GLU (test code = 326 mg/dL 70-110 H Notifi ed Provider 8206920168) Lab Interpretation (test Abnormal code = 82483-1) [facility] GLUCOSE (AUTOMATED)2022-12-03 00:34:27 Test Item Value Reference Range Interpretation Comments POCT GLU (test code = 326 mg/dL 70-110 H Notifi ed Provider 9702600064) Lab Interpretation (test Abnormal code = 16849-6) [facility] 20:44:29 Test Item Value Reference Range Interpretation Comments POCT GLU (test code = 9111605374) 128 mg/dL 70-110 H Lab Interpretation (test code = Abnormal 01896-2) [facility] 20:44:29 Test Item Value Reference Range Interpretation Comments POCT GLU (test code = 8963253581) 128 mg/dL 70-110 H Lab Interpretation (test code = Abnormal 47268-0) [facility] 20:44:29 Test Item Value Reference Range Interpretation Comments POCT GLU (test code = 5779929478) 128 mg/dL 70-110 H Lab Interpretation (test code = Abnormal 86816-0) [facility] GLUCOSE (AUTOMATED)2022-12-02 16:57:57 Test Item Value Reference Range Interpretation Comments POCT GLU (test code = 1450943752) 138 mg/dL 70-110 H Lab Interpretation (test code = Abnormal 68922-8) [facility] GLUCOSE (AUTOMATED)2022-12-02 16:57:57 Test Item Value Reference Range Interpretation Comments POCT GLU (test code = 9391920479) 138 mg/dL 70-110 H Lab Interpretation (test code = Abnormal 31777-4) [facility] GLUCOSE (AUTOMATED)2022-12-02 16:57:57 Test Item Value Reference Range Interpretation Comments POCT GLU (test code = 8318042665) 138 mg/dL 70-110 H Lab Interpretation (test code = Abnormal 82011-8) [facility] GLUCOSE (AUTOMATED)2022-12-02 15:51:14 Test Item Value Reference Range Interpretation Comments POCT GLU (test code = 2305633607) 125 mg/dL 70-110 H Lab Interpretation (test code = Abnormal 45885-6) [facility] GLUCOSE (AUTOMATED)2022-12-02 15:51:14 Test Item Value Reference Range Interpretation Comments POCT GLU (test code = 9007623477) 125 mg/dL 70-110 H Lab Interpretation (test code = Abnormal 26097-8) [facility] GLUCOSE (AUTOMATED)2022-12-02 15:51:14 Test Item Value Reference Range Interpretation Comments POCT GLU (test code = 1238222009) 125 mg/dL 70-110 H Lab Interpretation (test code = Abnormal 77001-8) [facility] GLUCOSE (AUTOMATED)2022-12-02 14:31:01 Test Item Value Reference Range Interpretation Comments POCT GLU (test code = 9200297801) 112 mg/dL 70-110 H Lab Interpretation (test code = Abnormal 22231-7) [facility] GLUCOSE (AUTOMATED)2022-12-02 14:31:01 Test Item Value Reference Range Interpretation Comments POCT GLU (test code = 6823489310) 112 mg/dL 70-110 H Lab Interpretation (test code = Abnormal 97924-8) [facility] GLUCOSE (AUTOMATED)2022-12-02 14:31:01 Test Item Value Reference Range Interpretation Comments POCT GLU (test code = 2145885650) 112 mg/dL 70-110 H Lab Interpretation (test code = Abnormal 56663-5) [facility] GLUCOSE (AUTOMATED)2022-12-02 12:48:23 Test Item Value Reference Range Interpretation Comments POCT GLU (test code = 9743899215) 119 mg/dL 70-110 H Lab Interpretation (test code = Abnormal 68007-9) [facility] GLUCOSE (AUTOMATED)2022-12-02 12:48:23 Test Item Value Reference Range Interpretation Comments POCT GLU (test code = 1384322332) 119 mg/dL 70-110 H Lab Interpretation (test code = Abnormal 70034-2) [facility] GLUCOSE (AUTOMATED)2022-12-02 12:48:23 Test Item Value Reference Range Interpretation Comments POCT GLU (test code = 7635340566) 119 mg/dL 70-110 H Lab Interpretation (test code = Abnormal 98351-4) [facility] Test Item Value Reference Range Interpretation Comments PHOSPHORUS (test code = 7035329111) 4.7 mg/dL 2.5-5.0 Lab Interpretation (test code = Normal 63822-0) [facility] (NA, K, CL, CO2, GLUCOSE, BUN, CREATININE, CA)2022-12-02 10:56:44 Test Item Value Reference Range Interpretation Comments NA (test code = 130 mmol/L 135-145 L 3288982501) K (test code = 3.4 mmol/L 3.5-5.0 L 5549011763) CL (test code = 99 mmol/L 98-108 2346567983) CO2 TOTAL (test code = 24 mmol/L 23-31 7708487688) AGAP (test code = 7 2-16 8773121810) BUN (test code = 29 mg/dL 7-23 H 1313198501) GLUCOSE (test code = 79 mg/dL 70-110 9049719308) CREATININE (test code = 1.83 mg/dL 0.50-1.04 H 2477552601) CALCIUM (test code = 7.1 mg/dL 8.6-10.6 L 4988287144) eGFR (test code = 28.9 mL/min/1.73m2 2968009235) GALLITO (test code = GALLITO) Association of Glomerular Filtration Rate (GFR) and Staging of Kidney Disease* + --+ --+ ------+| GFR (mL/min/1.73 m2) ?| With Kidney Damage ?| ?Without Kidney Damage+ --------+ --------+ +| ?>90 ?| ?Stage one ?| ? Normal ?+ ---+ ---+ -------+| ?60-89 ?| ?Stage two ?| ? Decreased GFR ? + --+ --+ ------+| ?30-59 ?| ?Stage three ?| ? Stage three ? + --+ --+ ------+| ?15-29 ?| ?Stage four ? | ? Stage four ?+ ---+ ---+ -------+| ?<15 (or dialysis) ? ?| ?Stage five ? | ? Stage five ?+ ---+ ---+ -------+ *Each stage assumes the associated GFR level has been in effect for at least three months. ?Stages 1 to 5, with or without kidney disease, indicate chronic kidney disease. Notes: Determination of stages one and two (with eGFR >59mL/min/1.73 m2) requires estimation of kidney damage for at least three months as defined by structural or functional abnormalities of the kidney, manifested by either:Pathological abnormalities or Markers of kidney damage (including abnormalities in the composition of the blood or urine or abnormalities in imaging tests). Lab Interpretation Abnormal (test code = 58326-5) [facility] Test Item Value Reference Range Interpretation Comments PHOSPHORUS (test code = 8969276783) 4.7 mg/dL 2.5-5.0 Lab Interpretation (test code = Normal 92552-1) [facility] (NA, K, CL, CO2, GLUCOSE, BUN, CREATININE, CA)2022-12-02 10:56:44 Test Item Value Reference Range Interpretation Comments NA (test code = 130 mmol/L 135-145 L 4683393533) K (test code = 3.4 mmol/L 3.5-5.0 L 6419238464) CL (test code = 99 mmol/L 98-108 1132059013) CO2 TOTAL (test code = 24 mmol/L 23-31 6201723833) AGAP (test code = 7 2-16 4193617533) BUN (test code = 29 mg/dL 7-23 H 7224150676) GLUCOSE (test code = 79 mg/dL 70-110 8512114261) CREATININE (test code = 1.83 mg/dL 0.50-1.04 H 4599205372) CALCIUM (test code = 7.1 mg/dL 8.6-10.6 L 0336376942) eGFR (test code = 28.9 mL/min/1.73m2 9303922993) GALLITO (test code = GALLITO) Association of Glomerular Filtration Rate (GFR) and Staging of Kidney Disease* + --+ --+ ------+| GFR (mL/min/1.73 m2) ?| With Kidney Damage ?| ?Without Kidney Damage+ --------+ --------+ +| ?>90 ?| ?Stage one ?| ? Normal ?+ ---+ ---+ -------+| ?60-89 ?| ?Stage two ?| ? Decreased GFR ? + --+ --+ ------+| ?30-59 ?| ?Stage three ?| ? Stage three ? + --+ --+ ------+| ?15-29 ?| ?Stage four ? | ? Stage four ?+ ---+ ---+ -------+| ?<15 (or dialysis) ? ?| ?Stage five ? | ? Stage five ?+ ---+ ---+ -------+ *Each stage assumes the associated GFR level has been in effect for at least three months. ?Stages 1 to 5, with or without kidney disease, indicate chronic kidney disease. Notes: Determination of stages one and two (with eGFR >59mL/min/1.73 m2) requires estimation of kidney damage for at least three months as defined by structural or functional abnormalities of the kidney, manifested by either:Pathological abnormalities or Markers of kidney damage (including abnormalities in the composition of the blood or urine or abnormalities in imaging tests). Lab Interpretation Abnormal (test code = 02764-4) [facility]44 Test Item Value Reference Range Interpretation Comments PHOSPHORUS (test code = 1844840790) 4.7 mg/dL 2.5-5.0 Lab Interpretation (test code = Normal 38279-8) [facility] (NA, K, CL, CO2, GLUCOSE, BUN, CREATININE, CA)2022-12-02 10:56:44 Test Item Value Reference Range Interpretation Comments NA (test code = 130 mmol/L 135-145 L 7316347293) K (test code = 3.4 mmol/L 3.5-5.0 L 6520775489) CL (test code = 99 mmol/L 98-108 1086146182) CO2 TOTAL (test code = 24 mmol/L 23-31 5867414860) AGAP (test code = 7 2-16 6943691080) BUN (test code = 29 mg/dL 7-23 H 9011083806) GLUCOSE (test code = 79 mg/dL 70-110 5526753593) CREATININE (test code = 1.83 mg/dL 0.50-1.04 H 7907342581) CALCIUM (test code = 7.1 mg/dL 8.6-10.6 L 9415542053) eGFR (test code = 28.9 mL/min/1.73m2 2410339143) GALLITO (test code = GALLITO) Association of Glomerular Filtration Rate (GFR) and Staging of Kidney Disease* + --+ --+ ------+| GFR (mL/min/1.73 m2) ?| With Kidney Damage ?| ?Without Kidney Damage+ --------+ --------+ +| ?>90 ?| ?Stage one ?| ? Normal ?+ ---+ ---+ -------+| ?60-89 ?| ?Stage two ?| ? Decreased GFR ? + --+ --+ ------+| ?30-59 ?| ?Stage three ?| ? Stage three ? + --+ --+ ------+| ?15-29 ?| ?Stage four ? | ? Stage four ?+ ---+ ---+ -------+| ?<15 (or dialysis) ? ?| ?Stage five ? | ? Stage five ?+ ---+ ---+ -------+ *Each stage assumes the associated GFR level has been in effect for at least three months. ?Stages 1 to 5, with or without kidney disease, indicate chronic kidney disease. Notes: Determination of stages one and two (with eGFR >59mL/min/1.73 m2) requires estimation of kidney damage for at least three months as defined by structural or functional abnormalities of the kidney, manifested by either:Pathological abnormalities or Markers of kidney damage (including abnormalities in the composition of the blood or urine or abnormalities in imaging tests). Lab Interpretation Abnormal (test code = 62880-2) [facility]2023-04-06 10:56:03 Test Item Value Reference Range Interpretation Comments MAGNESIUM (test code = 7089029090) 1.9 mg/dL 1.7-2.4 Lab Interpretation (test code = Normal 23359-7) [facility] Test Item Value Reference Range Interpretation Comments MAGNESIUM (test code = 1811621619) 1.9 mg/dL 1.7-2.4 Lab Interpretation (test code = Normal 44677-7) [facility]2023-04-06 10:56:03 Test Item Value Reference Range Interpretation Comments MAGNESIUM (test code = 4440079681) 1.9 mg/dL 1.7-2.4 Lab Interpretation (test code = Normal 89194-1) [facility] WITH [id number] 10:24:17 Test Item Value Reference Range Interpretation Comments WBC (test code = 12.60 See_Comment H [Automated 6690-2) message] The system which generated this result transmit jordan reference range : 4.30 - 11.10 10*3/?L. The reference range was not used to interpret this result as normal/abnormal . RBC (test code = 2.65 See_Comment L [Automated 789-8) message] The system which generated this result transmit jordan reference range : 3.93 - 5.25 10*6/?L. The reference range was not used to interpret this result as normal/abnormal . HGB (test code = 7.1 g/dL 11.6-15.0 L 718-7) HCT (test code = 21.6 % 35.7-45.2 L 4544-3) MCV (test code = 81.5 fL 80.6-95.5 787-2) MCH (test code = 26.8 pg 25.9-32.8 785-6) MCHC (test code = 32.9 g/dL 31.6-35.1 786-4) RDW-SD (test code = 47.8 fL 39.0-49.9 85976-8) RDW-CV (test code = 16.1 % 12.0-15.5 H 788-0) PLT (test code = 329 See_Comment [Automated 777-3) message] The system which generated this result transmit jordan reference range : 166 - 358 10*3/ ?L. The reference range was not u sed to interpret th is result as normal/abnormal . MPV (test code = 9.5 fL 9.5-12.9 17822-2) NRBC/100 WBC (test 0.0 See_Comment [Automat ed code = 8244998075) message] The system which generated this result transmit jordan reference range : 0.0 - 10.0 /100 WBCs. The reference range was not used to interpret this result as normal/abnormal . NRBC x10^3 (test code See_Comment [Auto mated = 8618236577) message] The system which generated this result transmit jordan reference range : 10*3/?L. The reference range was not used to interpret this result as normal/abnormal . GRAN MAT (NEUT) % 83.8 % (test code = 770-8) IMM GRAN % (test code 1.70 % = 0772252495) LYMPH % (test code = 7.4 % 736-9) MONO % (test code = 5.5 % 5905-5) EOS % (test code = 1.3 % 713-8) BASO % (test code = 0.3 % 706-2) GRAN MAT x10^3(ANC) 10.56 10*3/uL 1.88-7.09 H (test code = 9993629643) IMM GRAN x10^3 (test 0.21 10*3/uL 0.00-0.06 H code = 3984098286) LYMPH x10^3 (test code 0.93 10*3/uL 1.32-3.29 L = 731-0) MONO x10^3 (test code 0.69 10*3/uL 0.33-0.92 = 742-7) EOS x10^3 (test code = 0.17 10*3/uL 0.03-0.39 711-2) BASO x10^3 (test code 0.04 10*3/uL 0.01-0.07 = 704-7) Lab Interpretation Abnormal (test code = 07233-8) [facility] WITH [id number] 10:24:17 Test Item Value Reference Range Interpretation Comments WBC (test code = 12.60 See_Comment H [Automated 6690-2) message] The system which generated this result transmit jordan reference range : 4.30 - 11.10 10*3/?L. The reference range was not used to interpret this result as normal/abnormal . RBC (test code = 2.65 See_Comment L [Automated 789-8) message] The system which generated this result transmit jordan reference range : 3.93 - 5.25 10*6/?L. The reference range was not used to interpret this result as normal/abnormal . HGB (test code = 7.1 g/dL 11.6-15.0 L 718-7) HCT (test code = 21.6 % 35.7-45.2 L 4544-3) MCV (test code = 81.5 fL 80.6-95.5 787-2) MCH (test code = 26.8 pg 25.9-32.8 785-6) MCHC (test code = 32.9 g/dL 31.6-35.1 786-4) RDW-SD (test code = 47.8 fL 39.0-49.9 44150-3) RDW-CV (test code = 16.1 % 12.0-15.5 H 788-0) PLT (test code = 329 See_Comment [Automated 777-3) message] The system which generated this result transmit jordan reference range : 166 - 358 10*3/ ?L. The reference range was not u sed to interpret th is result as normal/abnormal . MPV (test code = 9.5 fL 9.5-12.9 54259-2) NRBC/100 WBC (test 0.0 See_Comment [Automat ed code = 2171557750) message] The system which generated this result transmit jordan reference range : 0.0 - 10.0 /100 WBCs. The reference range was not used to interpret this result as normal/abnormal . NRBC x10^3 (test code See_Comment [Auto mated = 7147846594) message] The system which generated this result transmit jordan reference range : 10*3/?L. The reference range was not used to interpret this result as normal/abnormal . GRAN MAT (NEUT) % 83.8 % (test code = 770-8) IMM GRAN % (test code 1.70 % = 5375057001) LYMPH % (test code = 7.4 % 736-9) MONO % (test code = 5.5 % 5905-5) EOS % (test code = 1.3 % 713-8) BASO % (test code = 0.3 % 706-2) GRAN MAT x10^3(ANC) 10.56 10*3/uL 1.88-7.09 H (test code = 0139871036) IMM GRAN x10^3 (test 0.21 10*3/uL 0.00-0.06 H code = 1177312648) LYMPH x10^3 (test code 0.93 10*3/uL 1.32-3.29 L = 731-0) MONO x10^3 (test code 0.69 10*3/uL 0.33-0.92 = 742-7) EOS x10^3 (test code = 0.17 10*3/uL 0.03-0.39 711-2) BASO x10^3 (test code 0.04 10*3/uL 0.01-0.07 = 704-7) Lab Interpretation Abnormal (test code = 31508-2) [facility] WITH [id number] 10:24:17 Test Item Value Reference Range Interpretation Comments WBC (test code = 12.60 See_Comment H [Automated 6690-2) message] The system which generated this result transmit jordan reference range : 4.30 - 11.10 10*3/?L. The reference range was not used to interpret this result as normal/abnormal . RBC (test code = 2.65 See_Comment L [Automated 789-8) message] The system which generated this result transmit jordan reference range : 3.93 - 5.25 10*6/?L. The reference range was not used to interpret this result as normal/abnormal . HGB (test code = 7.1 g/dL 11.6-15.0 L 718-7) HCT (test code = 21.6 % 35.7-45.2 L 4544-3) MCV (test code = 81.5 fL 80.6-95.5 787-2) MCH (test code = 26.8 pg 25.9-32.8 785-6) MCHC (test code = 32.9 g/dL 31.6-35.1 786-4) RDW-SD (test code = 47.8 fL 39.0-49.9 81348-2) RDW-CV (test code = 16.1 % 12.0-15.5 H 788-0) PLT (test code = 329 See_Comment [Automated 777-3) message] The system which generated this result transmit jordan reference range : 166 - 358 10*3/ ?L. The reference range was not u sed to interpret th is result as normal/abnormal . MPV (test code = 9.5 fL 9.5-12.9 43190-8) NRBC/100 WBC (test 0.0 See_Comment [Automat ed code = 7618990972) message] The system which generated this result transmit jordan reference range : 0.0 - 10.0 /100 WBCs. The reference range was not used to interpret this result as normal/abnormal . NRBC x10^3 (test code See_Comment [Auto mated = 8787380945) message] The system which generated this result transmit jordan reference range : 10*3/?L. The reference range was not used to interpret this result as normal/abnormal . GRAN MAT (NEUT) % 83.8 % (test code = 770-8) IMM GRAN % (test code 1.70 % = 6172832551) LYMPH % (test code = 7.4 % 736-9) MONO % (test code = 5.5 % 5905-5) EOS % (test code = 1.3 % 713-8) BASO % (test code = 0.3 % 706-2) GRAN MAT x10^3(ANC) 10.56 10*3/uL 1.88-7.09 H (test code = 7749524573) IMM GRAN x10^3 (test 0.21 10*3/uL 0.00-0.06 H code = 5289641950) LYMPH x10^3 (test code 0.93 10*3/uL 1.32-3.29 L = 731-0) MONO x10^3 (test code 0.69 10*3/uL 0.33-0.92 = 742-7) EOS x10^3 (test code = 0.17 10*3/uL 0.03-0.39 711-2) BASO x10^3 (test code 0.04 10*3/uL 0.01-0.07 = 704-7) Lab Interpretation Abnormal (test code = 45553-9) [facility] GLUCOSE (AUTOMATED)2022-12-02 09:37:29 Test Item Value Reference Range Interpretation Comments POCT GLU (test code = 5159721185) 139 mg/dL 70-110 H Lab Interpretation (test code = Abnormal 16338-4) [facility] GLUCOSE (AUTOMATED)2022-12-02 09:37:29 Test Item Value Reference Range Interpretation Comments POCT GLU (test code = 2945609124) 139 mg/dL 70-110 H Lab Interpretation (test code = Abnormal 06741-4) [facility] GLUCOSE (AUTOMATED)2022-12-02 09:37:29 Test Item Value Reference Range Interpretation Comments POCT GLU (test code = 2409098491) 139 mg/dL 70-110 H Lab Interpretation (test code = Abnormal 36516-7) [facility] GLUCOSE (AUTOMATED)2022-12-02 08:27:40 Test Item Value Reference Range Interpretation Comments POCT GLU (test code = 9185496562) 141 mg/dL 70-110 H Lab Interpretation (test code = Abnormal 70851-2) [facility] GLUCOSE (AUTOMATED)2022-12-02 08:27:40 Test Item Value Reference Range Interpretation Comments POCT GLU (test code = 9199607738) 141 mg/dL 70-110 H Lab Interpretation (test code = Abnormal 10067-0) [facility] GLUCOSE (AUTOMATED)2022-12-02 08:27:40 Test Item Value Reference Range Interpretation Comments POCT GLU (test code = 4556754711) 141 mg/dL 70-110 H Lab Interpretation (test code = Abnormal 88651-3) [facility] GLUCOSE (AUTOMATED)2022-12-02 07:13:18 Test Item Value Reference Range Interpretation Comments POCT GLU (test code = 0843092624) 70 mg/dL 70-110 Lab Interpretation (test code = Normal 82081-5) [facility] GLUCOSE (AUTOMATED)2022-12-02 07:13:18 Test Item Value Reference Range Interpretation Comments POCT GLU (test code = 1349016909) 70 mg/dL 70-110 Lab Interpretation (test code = Normal 67614-8) [facility] GLUCOSE (AUTOMATED)2022-12-02 07:13:18 Test Item Value Reference Range Interpretation Comments POCT GLU (test code = 6382107174) 70 mg/dL 70-110 Lab Interpretation (test code = Normal 88521-4) [facility] GLUCOSE (AUTOMATED)2022-12-02 06:21:24 Test Item Value Reference Range Interpretation Comments POCT GLU (test code = 2103985368) 90 mg/dL 70-110 Lab Interpretation (test code = Normal 27721-8) [facility] GLUCOSE (AUTOMATED)2022-12-02 06:21:24 Test Item Value Reference Range Interpretation Comments POCT GLU (test code = 1681669917) 90 mg/dL 70-110 Lab Interpretation (test code = Normal 37119-9) [facility] 06:21:24 Test Item Value Reference Range Interpretation Comments POCT GLU (test code = 2196381584) 90 mg/dL 70-110 Lab Interpretation (test code = Normal 40277-9) [facility] 05:34:41 Test Item Value Reference Range Interpretation Comments POCT GLU (test code = 3734476772) 76 mg/dL 70-110 Lab Interpretation (test code = Normal 00184-6) [facility] 05:34:41 Test Item Value Reference Range Interpretation Comments POCT GLU (test code = 1298891397) 76 mg/dL 70-110 Lab Interpretation (test code = Normal 10339-3) [facility] GLUCOSE (AUTOMATED)2022-12-02 05:34:41 Test Item Value Reference Range Interpretation Comments POCT GLU (test code = 4053478729) 76 mg/dL 70-110 Lab Interpretation (test code = Normal 04605-4) [facility] 04:53:29 Test Item Value Reference Range Interpretation Comments POCT GLU (test code = 9497121139) 62 mg/dL 70-110 L Lab Interpretation (test code = Abnormal 33971-8) [facility] GLUCOSE (AUTOMATED)2022-12-02 04:53:29 Test Item Value Reference Range Interpretation Comments POCT GLU (test code = 4572982591) 62 mg/dL 70-110 L Lab Interpretation (test code = Abnormal 08729-6) [facility] 04:53:29 Test Item Value Reference Range Interpretation Comments POCT GLU (test code = 7340416828) 62 mg/dL 70-110 L Lab Interpretation (test code = Abnormal 20610-8) [facility] 01:26:32 Test Item Value Reference Range Interpretation Comments POCT GLU (test code = 6385389236) 92 mg/dL 70-110 Lab Interpretation (test code = Normal 43067-9) [facility] GLUCOSE (AUTOMATED)2022-12-02 01:26:32 Test Item Value Reference Range Interpretation Comments POCT GLU (test code = 1816277583) 92 mg/dL 70-110 Lab Interpretation (test code = Normal 59025-4) [facility] GLUCOSE (AUTOMATED)2022-12-02 01:26:32 Test Item Value Reference Range Interpretation Comments POCT GLU (test code = 5897309617) 92 mg/dL 70-110 Lab Interpretation (test code = Normal 76563-8) [facility] GLUCOSE (AUTOMATED)2022-12-01 22:22:43 Test Item Value Reference Range Interpretation Comments POCT GLU (test code = 0495727045) 137 mg/dL 70-110 H Lab Interpretation (test code = Abnormal 59537-2) [facility] GLUCOSE (AUTOMATED)2022-12-01 22:22:43 Test Item Value Reference Range Interpretation Comments POCT GLU (test code = 4894862600) 137 mg/dL 70-110 H Lab Interpretation (test code = Abnormal 60990-6) [facility] GLUCOSE (AUTOMATED)2022-12-01 22:22:43 Test Item Value Reference Range Interpretation Comments POCT GLU (test code = 8559190553) 137 mg/dL 70-110 H Lab Interpretation (test code = Abnormal 13870-7) [facility] GLUCOSE (AUTOMATED)2022-12-01 21:52:06 Test Item Value Reference Range Interpretation Comments POCT GLU (test code = 0877025606) 68 mg/dL 70-110 L Lab Interpretation (test code = Abnormal 15846-3) [facility] GLUCOSE (AUTOMATED)2022-12-01 21:52:06 Test Item Value Reference Range Interpretation Comments POCT GLU (test code = 0591115791) 68 mg/dL 70-110 L Lab Interpretation (test code = Abnormal 47620-1) [facility] GLUCOSE (AUTOMATED)2022-12-01 21:52:06 Test Item Value Reference Range Interpretation Comments POCT GLU (test code = 3046462508) 68 mg/dL 70-110 L Lab Interpretation (test code = Abnormal 19372-7) [facility] GLUCOSE (AUTOMATED)2022-12-01 21:39:52 Test Item Value Reference Range Interpretation Comments POCT GLU (test code = 0147156361) 56 mg/dL 70-110 L Lab Interpretation (test code = Abnormal 55030-3) [facility] GLUCOSE (AUTOMATED)2022-12-01 21:39:52 Test Item Value Reference Range Interpretation Comments POCT GLU (test code = 2224977132) 56 mg/dL 70-110 L Lab Interpretation (test code = Abnormal 29959-3) [facility] GLUCOSE (AUTOMATED)2022-12-01 21:39:52 Test Item Value Reference Range Interpretation Comments POCT GLU (test code = 3642798234) 56 mg/dL 70-110 L Lab Interpretation (test code = Abnormal 82509-7) [facility] GLUCOSE (AUTOMATED)2022-12-01 13:01:44 Test Item Value Reference Range Interpretation Comments POCT GLU (test code = 9453985690) 99 mg/dL 70-110 Lab Interpretation (test code = Normal 85780-6) [facility] GLUCOSE (AUTOMATED)2022-12-01 13:01:44 Test Item Value Reference Range Interpretation Comments POCT GLU (test code = 8786196827) 99 mg/dL 70-110 Lab Interpretation (test code = Normal 80044-6) [facility] GLUCOSE (AUTOMATED)2022-12-01 13:01:44 Test Item Value Reference Range Interpretation Comments POCT GLU (test code = 9655655152) 99 mg/dL 70-110 Lab Interpretation (test code = Normal 96750-4) [facility] GLUCOSE (AUTOMATED)2022-12-01 11:24:17 Test Item Value Reference Range Interpretation Comments POCT GLU (test code = 7675819121) 70 mg/dL 70-110 Lab Interpretation (test code = Normal 70111-8) [facility] GLUCOSE (AUTOMATED)2022-12-01 11:24:17 Test Item Value Reference Range Interpretation Comments POCT GLU (test code = 7354781241) 70 mg/dL 70-110 Lab Interpretation (test code = Normal 63738-2) [facility] GLUCOSE (AUTOMATED)2022-12-01 11:24:17 Test Item Value Reference Range Interpretation Comments POCT GLU (test code = 8992273440) 70 mg/dL 70-110 Lab Interpretation (test code = Normal 45890-4) [facility] GLUCOSE (AUTOMATED)2022-12-01 10:55:02 Test Item Value Reference Range Interpretation Comments POCT GLU (test code = 7654208976) 82 mg/dL 70-110 Lab Interpretation (test code = Normal 17158-4) [facility] GLUCOSE (AUTOMATED)2022-12-01 10:55:02 Test Item Value Reference Range Interpretation Comments POCT GLU (test code = 3848762217) 82 mg/dL 70-110 Lab Interpretation (test code = Normal 65559-7) [facility] GLUCOSE (AUTOMATED)2022-12-01 10:55:02 Test Item Value Reference Range Interpretation Comments POCT GLU (test code = 7347292190) 82 mg/dL 70-110 Lab Interpretation (test code = Normal 90340-4) [facility] GLUCOSE (AUTOMATED)2022-12-01 09:53:22 Test Item Value Reference Range Interpretation Comments POCT GLU (test code = 0180490441) 55 mg/dL 70-110 L Lab Interpretation (test code = Abnormal 73254-8) [facility] GLUCOSE (AUTOMATED)2022-12-01 09:53:22 Test Item Value Reference Range Interpretation Comments POCT GLU (test code = 2252798902) 55 mg/dL 70-110 L Lab Interpretation (test code = Abnormal 72189-1) [facility] GLUCOSE (AUTOMATED)2022-12-01 09:53:22 Test Item Value Reference Range Interpretation Comments POCT GLU (test code = 7100906561) 55 mg/dL 70-110 L Lab Interpretation (test code = Abnormal 00813-4) [facility] GLUCOSE (AUTOMATED)2022-12-01 04:13:44 Test Item Value Reference Range Interpretation Comments POCT GLU (test code = 6802587701) 75 mg/dL 70-110 Lab Interpretation (test code = Normal 73343-1) [facility] GLUCOSE (AUTOMATED)2022-12-01 04:13:44 Test Item Value Reference Range Interpretation Comments POCT GLU (test code = 0632454857) 75 mg/dL 70-110 Lab Interpretation (test code = Normal 61605-1) [facility] GLUCOSE (AUTOMATED)2022-12-01 04:13:44 Test Item Value Reference Range Interpretation Comments POCT GLU (test code = 6432929205) 75 mg/dL 70-110 Lab Interpretation (test code = Normal 93309-0) [facility] GLUCOSE (AUTOMATED)2022-12-01 01:05:36 Test Item Value Reference Range Interpretation Comments POCT GLU (test code = 3303882285) 98 mg/dL 70-110 Lab Interpretation (test code = Normal 82509-7) [facility] GLUCOSE (AUTOMATED)2022-12-01 01:05:36 Test Item Value Reference Range Interpretation Comments POCT GLU (test code = 1636957405) 98 mg/dL 70-110 Lab Interpretation (test code = Normal 69060-7) [facility] GLUCOSE (AUTOMATED)2022-12-01 01:05:36 Test Item Value Reference Range Interpretation Comments POCT GLU (test code = 9002061645) 98 mg/dL 70-110 Lab Interpretation (test code = Normal 47009-0) [facility] 01:00:06 Test Item Value Reference Range Interpretation Comments PH (test code = 2) 7.34 7.35-7.45 L PCO2 (test code = 42 See_Comment [Automate d message] [id number]) The system [employer] generated this result transmit jordan reference range : 35 - 45 mmHg. The reference range was not used to interpret this result as normal/abnormal . PO2 (test code = 203 See_Comment H [Automated message] 1690936909) The system [employer] generated this result transmit jordan reference range : 80 - 100 mmHg. The reference range was not used to interpret this result as normal/abnormal . HCO3 (test code = 22 See_Comment [Automate d message] 1945900936) The system [employer] generated this result transmit jordan reference range : 22 - 26 mEq/L. The reference range was not used to interpret this result as normal/abnormal . BE (test code = -3.9 See_Comment L [Automated message] 2033043975) The system [employer] generated this result transmit jordan reference range : -3.0 - 3.0 mEq/ L. The reference r cristian was not used to interpret this result as normal/abnormal . THB (test code = 10.4 g/dL 12.0-16.0 L 9180217428) %O2HB (test code = 98.9 % 94.0-99.0 5821613074) %COHB ART (test code = 0.3 % 0.0-1.5 3740248325) %METHB ART (test code = 0.3 % 0.4-1.5 L 1674721569) VOL%O2 ART (test code = 14.9 % 15.0-23.0 L QUES 2960235916) NA (test code = 134 mmol/L 135-145 L 9377114092) K+ (test code = 3.7 mmol/L 3.5-5.0 2655702733) AC CA IONZ (test code = 4.50 mg/dL 4.50-5.30 7150400257) GLUCOSE (test code = 243 mg/dL 70-110 H 8700175086) Lab Interpretation Abnormal (test code = 50727-7) [facility] 01:00:06 Test Item Value Reference Range Interpretation Comments PH (test code = 2) 7.34 7.35-7.45 L PCO2 (test code = 42 See_Comment [Automate d message] 0524646026) The system [employer] generated this result transmit jordan reference range : 35 - 45 mmHg. The reference range was not used to interpret this result as normal/abnormal . PO2 (test code = 203 See_Comment H [Automated message] 6980767967) The system [employer] generated this result transmit jordan reference range : 80 - 100 mmHg. The reference range was not used to interpret this result as normal/abnormal . HCO3 (test code = 22 See_Comment [Automate d message] 7137615455) The system [employer] generated this result transmit jordan reference range : 22 - 26 mEq/L. The reference range was not used to interpret this result as normal/abnormal . BE (test code = -3.9 See_Comment L [Automated message] 4372212962) The system [employer] generated this result transmit jordan reference range : -3.0 - 3.0 mEq/ L. The reference r cristian was not used to interpret this result as normal/abnormal . THB (test code = 10.4 g/dL 12.0-16.0 L 8729331231) %O2HB (test code = 98.9 % 94.0-99.0 9882857627) %COHB ART (test code = 0.3 % 0.0-1.5 6773345288) %METHB ART (test code = 0.3 % 0.4-1.5 L 3218209320) VOL%O2 ART (test code = 14.9 % 15.0-23.0 L QUES 1738985598) NA (test code = 134 mmol/L 135-145 L 6284375339) K+ (test code = 3.7 mmol/L 3.5-5.0 6025283355) AC CA IONZ (test code = 4.50 mg/dL 4.50-5.30 1139799512) GLUCOSE (test code = 243 mg/dL 70-110 H 8035484644) Lab Interpretation Abnormal (test code = 18152-5) [facility] 01:00:06 Test Item Value Reference Range Interpretation Comments PH (test code = 2) 7.34 7.35-7.45 L PCO2 (test code = 42 See_Comment [Automate d message] 3115106361) The system [employer] generated this result transmit jordan reference range : 35 - 45 mmHg. The reference range was not used to interpret this result as normal/abnormal . PO2 (test code = 203 See_Comment H [Automated message] 7955568691) The system [employer] generated this result transmit jordan reference range : 80 - 100 mmHg. The reference range was not used to interpret this result as normal/abnormal . HCO3 (test code = 22 See_Comment [Automate d message] 1678916146) The system [employer] generated this result transmit jordan reference range : 22 - 26 mEq/L. The reference range was not used to interpret this result as normal/abnormal . BE (test code = -3.9 See_Comment L [Automated message] 9281754480) The system [employer] generated this result transmit jordan reference range : -3.0 - 3.0 mEq/ L. The reference r cristian was not used to interpret this result as normal/abnormal . THB (test code = 10.4 g/dL 12.0-16.0 L 8374723306) %O2HB (test code = 98.9 % 94.0-99.0 2730058546) %COHB ART (test code = 0.3 % 0.0-1.5 4166180079) %METHB ART (test code = 0.3 % 0.4-1.5 L 5693136414) VOL%O2 ART (test code = 14.9 % 15.0-23.0 L QUES 0177503825) NA (test code = 134 mmol/L 135-145 L 7066975160) K+ (test code = 3.7 mmol/L 3.5-5.0 0496846560) AC CA IONZ (test code = 4.50 mg/dL 4.50-5.30 8700907504) GLUCOSE (test code = 243 mg/dL 70-110 H 9707446753) Lab Interpretation Abnormal (test code = 96631-8) [facility] GLUCOSE (AUTOMATED)2022-11-30 21:20:26 Test Item Value Reference Range Interpretation Comments POCT GLU (test code = 4473219579) 145 mg/dL 70-110 H Lab Interpretation (test code = Abnormal 05752-9) [facility] GLUCOSE (AUTOMATED)2022-11-30 21:20:26 Test Item Value Reference Range Interpretation Comments POCT GLU (test code = 6709683495) 145 mg/dL 70-110 H Lab Interpretation (test code = Abnormal 22862-3) [facility] GLUCOSE (AUTOMATED)2022-11-30 21:20:26 Test Item Value Reference Range Interpretation Comments POCT GLU (test code = 2066349731) 145 mg/dL 70-110 H Lab Interpretation (test code = Abnormal 01035-7) [facility] GLUCOSE (AUTOMATED)2022-11-30 21:20:26 Test Item Value Reference Range Interpretation Comments POCT GLU (test code = 2257984869) 145 mg/dL 70-110 H Lab Interpretation (test code = Abnormal 91160-2) [id number] 19:12:03 Test Item Value Reference Range Interpretation Comments VIT D 25OH (test code = 21 ng/mL 25-80 L 79840-6) GALLITO (test code = GALLITO) Deficiency: <20 ng/mLInsufficiency: 20-24 ng/mLOptimal: 25-80 ng/mL Lab Interpretation (test Abnormal code = 03622-5) [id number] 19:12:03 Test Item Value Reference Range Interpretation Comments VIT D 25OH (test code = 21 ng/mL 25-80 L 65034-5) GALLITO (test code = GALLITO) Deficiency: <20 ng/mLInsufficiency: 20-24 ng/mLOptimal: 25-80 ng/mL Lab Interpretation (test Abnormal code = 97291-7) [facility] [id number] 19:12:03 Test Item Value Reference Range Interpretation Comments VIT D 25OH (test code = 21 ng/mL 25-80 L 47509-2) GALLITO (test code = GALLITO) Deficiency: <20 ng/mLInsufficiency: 20-24 ng/mLOptimal: 25-80 ng/mL Lab Interpretation (test Abnormal code = 16815-8) [facility] 60-[id number] 19:12:03 Test Item Value Reference Range Interpretation Comments VIT D 25OH (test code = 21 ng/mL 25-80 L 80024-7) GALLITO (test code = GALLITO) Deficiency: <20 ng/mLInsufficiency: 20-24 ng/mLOptimal: 25-80 ng/mL Lab Interpretation (test Abnormal code = 04272-6) [facility] GLUCOSE (AUTOMATED)2022-11-30 17:24:10 Test Item Value Reference Range Interpretation Comments POCT GLU (test code = 5682465708) 199 mg/dL 70-110 H Lab Interpretation (test code = Abnormal 34518-9) [facility] GLUCOSE (AUTOMATED)2022-11-30 17:24:10 Test Item Value Reference Range Interpretation Comments POCT GLU (test code = 0156730367) 199 mg/dL 70-110 H Lab Interpretation (test code = Abnormal 52219-7) [facility] GLUCOSE (AUTOMATED)2022-11-30 17:24:10 Test Item Value Reference Range Interpretation Comments POCT GLU (test code = 9440024835) 199 mg/dL 70-110 H Lab Interpretation (test code = Abnormal 27352-2) [facility] GLUCOSE (AUTOMATED)2022-11-30 17:24:10 Test Item Value Reference Range Interpretation Comments POCT GLU (test code = 4802386024) 199 mg/dL 70-110 H Lab Interpretation (test code = Abnormal 90273-4) [facility] GLUCOSE (AUTOMATED)2022-11-30 15:53:51 Test Item Value Reference Range Interpretation Comments POCT GLU (test code = 7080464075) 220 mg/dL 70-110 H Lab Interpretation (test code = Abnormal 05269-0) [facility] GLUCOSE (AUTOMATED)2022-11-30 15:53:51 Test Item Value Reference Range Interpretation Comments POCT GLU (test code = 7819486811) 220 mg/dL 70-110 H Lab Interpretation (test code = Abnormal 64843-1) [facility] GLUCOSE (AUTOMATED)2022-11-30 15:53:51 Test Item Value Reference Range Interpretation Comments POCT GLU (test code = 2191735136) 220 mg/dL 70-110 H Lab Interpretation (test code = Abnormal 14327-5) [facility] GLUCOSE (AUTOMATED)2022-11-30 15:53:51 Test Item Value Reference Range Interpretation Comments POCT GLU (test code = 9430882515) 220 mg/dL 70-110 H Lab Interpretation (test code = Abnormal 10729-4) [facility] GLUCOSE (AUTOMATED)2022-11-30 13:29:18 Test Item Value Reference Range Interpretation Comments POCT GLU (test code = 1438545151) 257 mg/dL 70-110 H Lab Interpretation (test code = Abnormal 00125-3) [facility] GLUCOSE (AUTOMATED)2022-11-30 13:29:18 Test Item Value Reference Range Interpretation Comments POCT GLU (test code = 5726173528) 257 mg/dL 70-110 H Lab Interpretation (test code = Abnormal 73040-5) [facility] GLUCOSE (AUTOMATED)2022-11-30 13:29:18 Test Item Value Reference Range Interpretation Comments POCT GLU (test code = 1385585200) 257 mg/dL 70-110 H Lab Interpretation (test code = Abnormal 66913-3) [facility] GLUCOSE (AUTOMATED)2022-11-30 13:29:18 Test Item Value Reference Range Interpretation Comments POCT GLU (test code = 6446899110) 257 mg/dL 70-110 H Lab Interpretation (test code = Abnormal 78466-0) [facility] [id number] 08:38:53 Test Item Value Reference Range Interpretation Comments PH (test code = 2) 7.38 7.35-7.45 PCO2 (test code = 37 See_Comment [Automate d 3842240598) message] The sy stem which generated this result transmitted reference range : 35 - 45 mmHg. The reference range was not used to interpret this result as normal/abnormal . PO2 (test code = 82 See_Comment [Automated 1945190197) message] The sy stem which generated this result transmitted reference range : 80 - 100 mmHg. The reference range was not used to interpret this result as normal/abnormal . HCO3 (test code = 22 See_Comment [Automate d 3719922840) message] The sy stem which generated this result transmitted reference range : 22 - 26 mEq/L. The reference range was not used to interpret this result as normal/abnormal . BE (test code = -3.0 See_Comment [Automated 1505801246) message] The sy stem which generated this result transmitted reference range : -3.0 - 3.0 mEq/ L. The reference r cristian was not used to interpret this result as normal/abnormal . THB (test code = 9.7 g/dL 12.0-16.0 L 7729909309) %O2HB (test code = 96.1 % 94.0-99.0 7241746319) %COHB ART (test code = 0.4 % 0.0-1.5 1095816843) %METHB ART (test code = 0.0 % 0.4-1.5 L 8022306044) VOL%O2 ART (test code = 13.2 % 15.0-23.0 L 7246162909) NA (test code = 128 mmol/L 135-145 L 9531335788) K+ (test code = 3.6 mmol/L 3.5-5.0 2457892399) AC CA IONZ (test code = 4.10 mg/dL 4.50-5.30 L 6740927840) GLUCOSE (test code = 215 mg/dL 70-110 H 9472157278) LACTIC ACID (test code 1.75 mmol/L 0.50-2.20 = 7185297840) Lab Interpretation Abnormal (test code = 20899-3) [facility] [id number] 08:38:53 Test Item Value Reference Range Interpretation Comments PH (test code = 2) 7.38 7.35-7.45 PCO2 (test code = 37 See_Comment [Automate d 8260083887) message] The sy stem which generated this result transmitted reference range : 35 - 45 mmHg. The reference range was not used to interpret this result as normal/abnormal . PO2 (test code = 82 See_Comment [Automated 1358184057) message] The sy stem which generated this result transmitted reference range : 80 - 100 mmHg. The reference range was not used to interpret this result as normal/abnormal . HCO3 (test code = 22 See_Comment [Automate d 3996845294) message] The sy stem which generated this result transmitted reference range : 22 - 26 mEq/L. The reference range was not used to interpret this result as normal/abnormal . BE (test code = -3.0 See_Comment [Automated 3636361165) message] The sy stem which generated this result transmitted reference range : -3.0 - 3.0 mEq/ L. The reference r cristian was not used to interpret this result as normal/abnormal . THB (test code = 9.7 g/dL 12.0-16.0 L 7883276486) %O2HB (test code = 96.1 % 94.0-99.0 2909071668) %COHB ART (test code = 0.4 % 0.0-1.5 2463336389) %METHB ART (test code = 0.0 % 0.4-1.5 L 2143658175) VOL%O2 ART (test code = 13.2 % 15.0-23.0 L 7389654081) NA (test code = 128 mmol/L 135-145 L 0425443613) K+ (test code = 3.6 mmol/L 3.5-5.0 8503823544) AC CA IONZ (test code = 4.10 mg/dL 4.50-5.30 L 2879992976) GLUCOSE (test code = 215 mg/dL 70-110 H 3269659321) LACTIC ACID (test code 1.75 mmol/L 0.50-2.20 = 1184870392) Lab Interpretation Abnormal (test code = 03598-8) [facility] [id number] 08:38:53 Test Item Value Reference Range Interpretation Comments PH (test code = 2) 7.38 7.35-7.45 PCO2 (test code = 37 See_Comment [Automate d 2573850471) message] The sy stem which generated this result transmitted reference range : 35 - 45 mmHg. The reference range was not used to interpret this result as normal/abnormal . PO2 (test code = 82 See_Comment [Automated 9454271093) message] The sy stem which generated this result transmitted reference range : 80 - 100 mmHg. The reference range was not used to interpret this result as normal/abnormal . HCO3 (test code = 22 See_Comment [Automate d 0882858229) message] The sy stem which generated this result transmitted reference range : 22 - 26 mEq/L. The reference range was not used to interpret this result as normal/abnormal . BE (test code = -3.0 See_Comment [Automated 7964667474) message] The sy stem which generated this result transmitted reference range : -3.0 - 3.0 mEq/ L. The reference r cristian was not used to interpret this result as normal/abnormal . THB (test code = 9.7 g/dL 12.0-16.0 L 2053400740) %O2HB (test code = 96.1 % 94.0-99.0 7807030073) %COHB ART (test code = 0.4 % 0.0-1.5 6375603673) %METHB ART (test code = 0.0 % 0.4-1.5 L 9909358956) VOL%O2 ART (test code = 13.2 % 15.0-23.0 L 1209345177) NA (test code = 128 mmol/L 135-145 L 9059714521) K+ (test code = 3.6 mmol/L 3.5-5.0 6183079402) AC CA IONZ (test code = 4.10 mg/dL 4.50-5.30 L 2843769550) GLUCOSE (test code = 215 mg/dL 70-110 H 8740923782) LACTIC ACID (test code 1.75 mmol/L 0.50-2.20 = 9153586321) Lab Interpretation Abnormal (test code = 18511-8) [facility] L[facility] [id number] 08:38:53 Test Item Value Reference Range Interpretation Comments PH (test code = 2) 7.38 7.35-7.45 PCO2 (test code = 37 See_Comment [Automate d 9245335601) message] The sy stem which generated this result transmitted reference range : 35 - 45 mmHg. The reference range was not used to interpret this result as normal/abnormal . PO2 (test code = 82 See_Comment [Automated 5965794171) message] The sy stem which generated this result transmitted reference range : 80 - 100 mmHg. The reference range was not used to interpret this result as normal/abnormal . HCO3 (test code = 22 See_Comment [Automate d 4851154279) message] The sy stem which generated this result transmitted reference range : 22 - 26 mEq/L. The reference range was not used to interpret this result as normal/abnormal . BE (test code = -3.0 See_Comment [Automated 6582013889) message] The sy stem which generated this result transmitted reference range : -3.0 - 3.0 mEq/ L. The reference r cristian was not used to interpret this result as normal/abnormal . THB (test code = 9.7 g/dL 12.0-16.0 L 0091559996) %O2HB (test code = 96.1 % 94.0-99.0 0855073785) %COHB ART (test code = 0.4 % 0.0-1.5 6014282347) %METHB ART (test code = 0.0 % 0.4-1.5 L 5286575816) VOL%O2 ART (test code = 13.2 % 15.0-23.0 L 0243048469) NA (test code = 128 mmol/L 135-145 L 0241119701) K+ (test code = 3.6 mmol/L 3.5-5.0 5742149009) AC CA IONZ (test code = 4.10 mg/dL 4.50-5.30 L 4841348355) GLUCOSE (test code = 215 mg/dL 70-110 H 4804917152) LACTIC ACID (test code 1.75 mmol/L 0.50-2.20 = 8527255220) Lab Interpretation Abnormal (test code = 69733-8) [facility] GLUCOSE (AUTOMATED)2022-11-30 08:21:45 Test Item Value Reference Range Interpretation Comments POCT GLU (test code = 9075520160) 235 mg/dL 70-110 H Lab Interpretation (test code = Abnormal 42120-6) [facility] GLUCOSE (AUTOMATED)2022-11-30 08:21:45 Test Item Value Reference Range Interpretation Comments POCT GLU (test code = 6747412181) 235 mg/dL 70-110 H Lab Interpretation (test code = Abnormal 73694-2) [facility] GLUCOSE (AUTOMATED)2022-11-30 08:21:45 Test Item Value Reference Range Interpretation Comments POCT GLU (test code = 3941789332) 235 mg/dL 70-110 H Lab Interpretation (test code = Abnormal 64736-9) [facility] GLUCOSE (AUTOMATED)2022-11-30 08:21:45 Test Item Value Reference Range Interpretation Comments POCT GLU (test code = 6666685394) 235 mg/dL 70-110 H Lab Interpretation (test code = Abnormal 91705-3) [facility] Lactic [id number] 04:31:18 Test Item Value Reference Range Interpretation Comments PH (test code = 2) 7.45 7.35-7.45 PCO2 (test code = 30 See_Comment L [Automate d 9667088338) message] The sy stem which generated this result transmitted reference range : 35 - 45 mmHg. The reference range was not used to interpret this result as normal/abnormal . PO2 (test code = 102 See_Comment H [Automated 4311266897) message] The sy stem which generated this result transmitted reference range : 80 - 100 mmHg. The reference range was not used to interpret this result as normal/abnormal . HCO3 (test code = 20 See_Comment L [Automate d 9462857757) message] The sy stem which generated this result transmitted reference range : 22 - 26 mEq/L. The reference range was not used to interpret this result as normal/abnormal . BE (test code = -2.8 See_Comment [Automated 6086467832) message] The sy stem which generated this result transmitted reference range : -3.0 - 3.0 mEq/ L. The reference r cristian was not used to interpret this result as normal/abnormal . THB (test code = 9.0 g/dL 12.0-16.0 L 8649280221) %O2HB (test code = 96.9 % 94.0-99.0 7332719062) %COHB ART (test code = 0.7 % 0.0-1.5 7819147401) %METHB ART (test code = 0.3 % 0.4-1.5 L 6160822561) VOL%O2 ART (test code = 12.4 % 15.0-23.0 L 5922119162) NA (test code = 129 mmol/L 135-145 L 8755614503) K+ (test code = 3.6 mmol/L 3.5-5.0 9360259199) AC CA IONZ (test code = 4.20 mg/dL 4.50-5.30 L 6447261861) GLUCOSE (test code = 282 mg/dL 70-110 H 7385379122) LACTIC ACID (test code 2.07 mmol/L 0.50-2.20 = 6452537679) Lab Interpretation Abnormal (test code = 40796-9) [facility] Lactic [id number] 04:31:18 Test Item Value Reference Range Interpretation Comments PH (test code = 2) 7.45 7.35-7.45 PCO2 (test code = 30 See_Comment L [Automate d 1400484367) message] The sy stem which generated this result transmitted reference range : 35 - 45 mmHg. The reference range was not used to interpret this result as normal/abnormal . PO2 (test code = 102 See_Comment H [Automated 9465488495) message] The sy stem which generated this result transmitted reference range : 80 - 100 mmHg. The reference range was not used to interpret this result as normal/abnormal . HCO3 (test code = 20 See_Comment L [Automate d 7286259817) message] The sy stem which generated this result transmitted reference range : 22 - 26 mEq/L. The reference range was not used to interpret this result as normal/abnormal . BE (test code = -2.8 See_Comment [Automated 9110652353) message] The sy stem which generated this result transmitted reference range : -3.0 - 3.0 mEq/ L. The reference r cristian was not used to interpret this result as normal/abnormal . THB (test code = 9.0 g/dL 12.0-16.0 L 9753708024) %O2HB (test code = 96.9 % 94.0-99.0 4350774914) %COHB ART (test code = 0.7 % 0.0-1.5 8309147956) %METHB ART (test code = 0.3 % 0.4-1.5 L 7955182552) VOL%O2 ART (test code = 12.4 % 15.0-23.0 L 6097364253) NA (test code = 129 mmol/L 135-145 L 7924617176) K+ (test code = 3.6 mmol/L 3.5-5.0 2851613726) AC CA IONZ (test code = 4.20 mg/dL 4.50-5.30 L 1609701421) GLUCOSE (test code = 282 mg/dL 70-110 H 0584276950) LACTIC ACID (test code 2.07 mmol/L 0.50-2.20 = 5815942159) Lab Interpretation Abnormal (test code = 83986-4) [facility] Rurm7806-29-95 04:31:18 Test Item Value Reference Range Interpretation Comments PH (test code = 2) 7.45 7.35-7.45 PCO2 (test code = 30 See_Comment L [Automate d [id number]) message] The sy stem which generated this result transmitted reference range : 35 - 45 mmHg. The reference range was not used to interpret this result as normal/abnormal . PO2 (test code = 102 See_Comment H [Automated 5919813831) message] The sy stem which generated this result transmitted reference range : 80 - 100 mmHg. The reference range was not used to interpret this result as normal/abnormal . HCO3 (test code = 20 See_Comment L [Automate d 2374594759) message] The sy stem which generated this result transmitted reference range : 22 - 26 mEq/L. The reference range was not used to interpret this result as normal/abnormal . BE (test code = -2.8 See_Comment [Automated 7659882692) message] The sy stem which generated this result transmitted reference range : -3.0 - 3.0 mEq/ L. The reference r cristian was not used to interpret this result as normal/abnormal . THB (test code = 9.0 g/dL 12.0-16.0 L 1411998817) %O2HB (test code = 96.9 % 94.0-99.0 9059339484) %COHB ART (test code = 0.7 % 0.0-1.5 0921596618) %METHB ART (test code = 0.3 % 0.4-1.5 L 9997412298) VOL%O2 ART (test code = 12.4 % 15.0-23.0 L 3392196829) NA (test code = 129 mmol/L 135-145 L 0316453739) K+ (test code = 3.6 mmol/L 3.5-5.0 1637203399) AC CA IONZ (test code = 4.20 mg/dL 4.50-5.30 L 8878224590) GLUCOSE (test code = 282 mg/dL 70-110 H 1724532790) LACTIC ACID (test code 2.07 mmol/L 0.50-2.20 = 1544982135) Lab Interpretation Abnormal (test code = 00683-5) [facility] [id number] 04:31:18 Test Item Value Reference Range Interpretation Comments PH (test code = 2) 7.45 7.35-7.45 PCO2 (test code = 30 See_Comment L [Automate d 9007996269) message] The sy stem which generated this result transmitted reference range : 35 - 45 mmHg. The reference range was not used to interpret this result as normal/abnormal . PO2 (test code = 102 See_Comment H [Automated 4810727697) message] The sy stem which generated this result transmitted reference range : 80 - 100 mmHg. The reference range was not used to interpret this result as normal/abnormal . HCO3 (test code = 20 See_Comment L [Automate d 0471738724) message] The sy stem which generated this result transmitted reference range : 22 - 26 mEq/L. The reference range was not used to interpret this result as normal/abnormal . BE (test code = -2.8 See_Comment [Automated 8385213732) message] The sy stem which generated this result transmitted reference range : -3.0 - 3.0 mEq/ L. The reference r cristian was not used to interpret this result as normal/abnormal . THB (test code = 9.0 g/dL 12.0-16.0 L 7932059567) %O2HB (test code = 96.9 % 94.0-99.0 6762391790) %COHB ART (test code = 0.7 % 0.0-1.5 8893879428) %METHB ART (test code = 0.3 % 0.4-1.5 L 5975239069) VOL%O2 ART (test code = 12.4 % 15.0-23.0 L 9034367445) NA (test code = 129 mmol/L 135-145 L 2189055585) K+ (test code = 3.6 mmol/L 3.5-5.0 1068531777) AC CA IONZ (test code = 4.20 mg/dL 4.50-5.30 L 8688555288) GLUCOSE (test code = 282 mg/dL 70-110 H 6809875685) LACTIC ACID (test code 2.07 mmol/L 0.50-2.20 = 9979483134) Lab Interpretation Abnormal (test code = 16742-9) [facility] GLUCOSE (AUTOMATED)2022-11-30 03:20:39 Test Item Value Reference Range Interpretation Comments POCT GLU (test code = 1341072782) 319 mg/dL 70-110 H Lab Interpretation (test code = Abnormal 12012-1) [facility] GLUCOSE (AUTOMATED)2022-11-30 03:20:39 Test Item Value Reference Range Interpretation Comments POCT GLU (test code = 1317356737) 319 mg/dL 70-110 H Lab Interpretation (test code = Abnormal 82816-1) [facility] GLUCOSE (AUTOMATED)2022-11-30 03:20:39 Test Item Value Reference Range Interpretation Comments POCT GLU (test code = 5455923378) 319 mg/dL 70-110 H Lab Interpretation (test code = Abnormal 29226-0) [facility] 03:20:39 Test Item Value Reference Range Interpretation Comments POCT GLU (test code = 3869933080) 319 mg/dL 70-110 H Lab Interpretation (test code = Abnormal 86638-1) [facility] [id number] 00:32:44 Test Item Value Reference Range Interpretation Comments IRON (test code = 8623219379) 11 ug/dL 50-160 L TIBC (test code = 8723140802) 279 ug/dL 250-410 % FE SAT (test code = 7109084266) 4 % 20-50 L Lab Interpretation (test code = Abnormal 59615-6) [facility] [id number] 00:32:44 Test Item Value Reference Range Interpretation Comments IRON (test code = 2364348874) 11 ug/dL 50-160 L TIBC (test code = 3269208375) 279 ug/dL 250-410 % FE SAT (test code = 2832052025) 4 % 20-50 L Lab Interpretation (test code = Abnormal 09056-1) [facility] [id number] 00:32:44 Test Item Value Reference Range Interpretation Comments IRON (test code = 0004998144) 11 ug/dL 50-160 L TIBC (test code = 2210122959) 279 ug/dL 250-410 % FE SAT (test code = 8748743273) 4 % 20-50 L Lab Interpretation (test code = Abnormal 12177-0) [facility] [id number] 00:32:44 Test Item Value Reference Range Interpretation Comments IRON (test code = 5930555117) 11 ug/dL 50-160 L TIBC (test code = 2135419178) 279 ug/dL 250-410 % FE SAT (test code = 1147871650) 4 % 20-50 L Lab Interpretation (test code = Abnormal 74109-6) [facility]2022-11-29 23:06:19 Test Item Value Reference Range Interpretation Comments HGB A1C (test code = 9.5 % 4.0-5.7 H 4548-4) GALLITO (test code = GALLITO) Reference RangesNormal: <5.7%Prediabetes: 5.7 - 6.4%Diabetes: > 6.5% Lab Interpretation (test Abnormal code = 17610-0) [facility]2022-11-29 23:06:19 Test Item Value Reference Range Interpretation Comments HGB A1C (test code = 9.5 % 4.0-5.7 H 4548-4) GALLITO (test code = GALLITO) Reference RangesNormal: <5.7%Prediabetes: 5.7 - 6.4%Diabetes: > 6.5% Lab Interpretation (test Abnormal code = 26929-2) [facility]2022-11-29 23:06:19 Test Item Value Reference Range Interpretation Comments HGB A1C (test code = 9.5 % 4.0-5.7 H 4548-4) GALLITO (test code = GALLITO) Reference RangesNormal: <5.7%Prediabetes: 5.7 - 6.4%Diabetes: > 6.5% Lab Interpretation (test Abnormal code = 16129-6) [facility]2022-11-29 23:06:19 Test Item Value Reference Range Interpretation Comments HGB A1C (test code = 9.5 % 4.0-5.7 H 4548-4) GALLITO (test code = GALLITO) Reference RangesNormal: <5.7%Prediabetes: 5.7 - 6.4%Diabetes: > 6.5% Lab Interpretation (test Abnormal code = 96604-7) [facility] GLUCOSE (AUTOMATED)2022-11-29 22:19:44 Test Item Value Reference Range Interpretation Comments POCT GLU (test code = 1460404950) 334 mg/dL 70-110 H Lab Interpretation (test code = Abnormal 30777-8) [facility] GLUCOSE (AUTOMATED)2022-11-29 22:19:44 Test Item Value Reference Range Interpretation Comments POCT GLU (test code = 9610181403) 334 mg/dL 70-110 H Lab Interpretation (test code = Abnormal 77881-8) [facility] GLUCOSE (AUTOMATED)2022-11-29 22:19:44 Test Item Value Reference Range Interpretation Comments POCT GLU (test code = 1758625382) 334 mg/dL 70-110 H Lab Interpretation (test code = Abnormal 01744-8) [facility] GLUCOSE (AUTOMATED)2022-11-29 22:19:44 Test Item Value Reference Range Interpretation Comments POCT GLU (test code = 1062081805) 334 mg/dL 70-110 H Lab Interpretation (test code = Abnormal 99772-0) [facility] Whole [id number] 21:08:06 Test Item Value Reference Range Interpretation Comments LACTIC ACID (test code = 3.04 mmol/L 0.50-2.20 H 3325595027) Lab Interpretation (test code = Abnormal 69900-7) [facility] [id number] 21:08:06 Test Item Value Reference Range Interpretation Comments LACTIC ACID (test code = 3.04 mmol/L 0.50-2.20 H 5753339937) Lab Interpretation (test code = Abnormal 89828-5) [facility] [id number] 21:08:06 Test Item Value Reference Range Interpretation Comments LACTIC ACID (test code = 3.04 mmol/L 0.50-2.20 H 3987950141) Lab Interpretation (test code = Abnormal 30486-4) [facility] Whole [id number] 21:08:06 Test Item Value Reference Range Interpretation Comments LACTIC ACID (test code = 3.04 mmol/L 0.50-2.20 H 4397139111) Lab Interpretation (test code = Abnormal 37827-0) [facility] GLUCOSE (AUTOMATED)2022-11-29 21:05:44 Test Item Value Reference Range Interpretation Comments POCT GLU (test code = 9249058386) 395 mg/dL 70-110 H Lab Interpretation (test code = Abnormal 26066-5) [facility] GLUCOSE (AUTOMATED)2022-11-29 21:05:44 Test Item Value Reference Range Interpretation Comments POCT GLU (test code = 3333506234) 395 mg/dL 70-110 H Lab Interpretation (test code = Abnormal 43936-5) [facility] GLUCOSE (AUTOMATED)2022-11-29 21:05:44 Test Item Value Reference Range Interpretation Comments POCT GLU (test code = 6654031548) 395 mg/dL 70-110 H Lab Interpretation (test code = Abnormal 41249-5) [facility]29 21:05:44 Test Item Value Reference Range Interpretation Comments POCT GLU (test code = 0094808687) 395 mg/dL 70-110 H Lab Interpretation (test code = Abnormal 87744-0) [facility] WITH [id number] 18:01:46 Test Item Value Reference Range Interpretation Comments WBC (test code = 26.11 See_Comment H [Automated 6690-2) message] The system which generated this result transmit jordan reference range : 4.30 - 11.10 10*3/?L. The reference range was not used to interpret this result as normal/abnormal . RBC (test code = 4.22 See_Comment [Automated 789-8) message] The system which generated this result transmit jordan reference range : 3.93 - 5.25 10*6/?L. The reference range was not used to interpret this result as normal/abnormal . HGB (test code = 11.3 g/dL 11.6-15.0 L 718-7) HCT (test code = 34.4 % 35.7-45.2 L 4544-3) MCV (test code = 81.5 fL 80.6-95.5 787-2) MCH (test code = 26.8 pg 25.9-32.8 785-6) MCHC (test code = 32.8 g/dL 31.6-35.1 786-4) RDW-SD (test code = 44.3 fL 39.0-49.9 85528-9) RDW-CV (test code = 15.0 % 12.0-15.5 788-0) PLT (test code = 359 See_Comment H [Automated 777-3) message] The system which generated this result transmit jordan reference range : 166 - 358 10*3/ ?L. The reference range was not u sed to interpret th is result as normal/abnormal . MPV (test code = 9.1 fL 9.5-12.9 L 78233-5) NRBC/100 WBC (test 0.0 See_Comment [Automat ed code = 1481264726) message] The system which generated this result transmit jordan reference range : 0.0 - 10.0 /100 WBCs. The reference range was not used to interpret this result as normal/abnormal . NRBC x10^3 (test code See_Comment [Auto mated = 8749124515) message] The system which generated this result transmit jordan reference range : 10*3/?L. The reference range was not used to interpret this result as normal/abnormal . GRAN MAT (NEUT) % 88.0 % (test code = 770-8) IMM GRAN % (test code 1.30 % = 1089023099) LYMPH % (test code = 4.8 % 736-9) MONO % (test code = 5.3 % 5905-5) EOS % (test code = 0.3 % 713-8) BASO % (test code = 0.3 % 706-2) GRAN MAT x10^3(ANC) 22.98 10*3/uL 1.88-7.09 H (test code = 0858680843) IMM GRAN x10^3 (test 0.33 10*3/uL 0.00-0.06 H code = 3328707633) LYMPH x10^3 (test code 1.26 10*3/uL 1.32-3.29 L = 731-0) MONO x10^3 (test code 1.38 10*3/uL 0.33-0.92 H = 742-7) EOS x10^3 (test code = 0.07 10*3/uL 0.03-0.39 711-2) BASO x10^3 (test code 0.09 10*3/uL 0.01-0.07 H = 704-7) BANDS (test code = Increased A 5322307195) DOHLE BODIES (test Present A code = 7792-5) REACT LYMPHS (test Rare code = 8455515504) TOXIC CHANGES (test Present A code = 803-7) Lab Interpretation Abnormal (test code = 07105-6) [facility] WITH [id number] 18:01:46 Test Item Value Reference Range Interpretation Comments WBC (test code = 26.11 See_Comment H [Automated 6690-2) message] The system which generated this result transmit jordan reference range : 4.30 - 11.10 10*3/?L. The reference range was not used to interpret this result as normal/abnormal . RBC (test code = 4.22 See_Comment [Automated 789-8) message] The system which generated this result transmit jordan reference range : 3.93 - 5.25 10*6/?L. The reference range was not used to interpret this result as normal/abnormal . HGB (test code = 11.3 g/dL 11.6-15.0 L 718-7) HCT (test code = 34.4 % 35.7-45.2 L 4544-3) MCV (test code = 81.5 fL 80.6-95.5 787-2) MCH (test code = 26.8 pg 25.9-32.8 785-6) MCHC (test code = 32.8 g/dL 31.6-35.1 786-4) RDW-SD (test code = 44.3 fL 39.0-49.9 39351-9) RDW-CV (test code = 15.0 % 12.0-15.5 788-0) PLT (test code = 359 See_Comment H [Automated 777-3) message] The system which generated this result transmit jordan reference range : 166 - 358 10*3/ ?L. The reference range was not u sed to interpret th is result as normal/abnormal . MPV (test code = 9.1 fL 9.5-12.9 L 74004-1) NRBC/100 WBC (test 0.0 See_Comment [Automat ed code = 6771425159) message] The system which generated this result transmit jordan reference range : 0.0 - 10.0 /100 WBCs. The reference range was not used to interpret this result as normal/abnormal . NRBC x10^3 (test code See_Comment [Auto mated = 0817907563) message] The system which generated this result transmit jordan reference range : 10*3/?L. The reference range was not used to interpret this result as normal/abnormal . GRAN MAT (NEUT) % 88.0 % (test code = 770-8) IMM GRAN % (test code 1.30 % = 6066308231) LYMPH % (test code = 4.8 % 736-9) MONO % (test code = 5.3 % 5905-5) EOS % (test code = 0.3 % 713-8) BASO % (test code = 0.3 % 706-2) GRAN MAT x10^3(ANC) 22.98 10*3/uL 1.88-7.09 H (test code = 9918792084) IMM GRAN x10^3 (test 0.33 10*3/uL 0.00-0.06 H code = 4245565886) LYMPH x10^3 (test code 1.26 10*3/uL 1.32-3.29 L = 731-0) MONO x10^3 (test code 1.38 10*3/uL 0.33-0.92 H = 742-7) EOS x10^3 (test code = 0.07 10*3/uL 0.03-0.39 711-2) BASO x10^3 (test code 0.09 10*3/uL 0.01-0.07 H = 704-7) BANDS (test code = Increased A 7028582592) DOHLE BODIES (test Present A code = 7792-5) REACT LYMPHS (test Rare code = 8135823312) TOXIC CHANGES (test Present A code = 803-7) Lab Interpretation Abnormal (test code = 66121-2) [facility] WITH [id number] 18:01:46 Test Item Value Reference Range Interpretation Comments WBC (test code = 26.11 See_Comment H [Automated 6933-2) message] The system which generated this result transmit jordan reference range : 4.30 - 11.10 10*3/?L. The reference range was not used to interpret this result as normal/abnormal . RBC (test code = 4.22 See_Comment [Automated 929-8) message] The system which generated this result transmit jordan reference range : 3.93 - 5.25 10*6/?L. The reference range was not used to interpret this result as normal/abnormal . HGB (test code = 11.3 g/dL 11.6-15.0 L 718-7) HCT (test code = 34.4 % 35.7-45.2 L 4544-3) MCV (test code = 81.5 fL 80.6-95.5 787-2) MCH (test code = 26.8 pg 25.9-32.8 785-6) MCHC (test code = 32.8 g/dL 31.6-35.1 786-4) RDW-SD (test code = 44.3 fL 39.0-49.9 15821-0) RDW-CV (test code = 15.0 % 12.0-15.5 788-0) PLT (test code = 359 See_Comment H [Automated 777-3) message] The system which generated this result transmit jordan reference range : 166 - 358 10*3/ ?L. The reference range was not u sed to interpret th is result as normal/abnormal . MPV (test code = 9.1 fL 9.5-12.9 L 92229-0) NRBC/100 WBC (test 0.0 See_Comment [Automat ed code = 3964821808) message] The system which generated this result transmit jordan reference range : 0.0 - 10.0 /100 WBCs. The reference range was not used to interpret this result as normal/abnormal . NRBC x10^3 (test code See_Comment [Auto mated = 3351279295) message] The system which generated this result transmit jordan reference range : 10*3/?L. The reference range was not used to interpret this result as normal/abnormal . GRAN MAT (NEUT) % 88.0 % (test code = 770-8) IMM GRAN % (test code 1.30 % = 9388718193) LYMPH % (test code = 4.8 % 736-9) MONO % (test code = 5.3 % 5905-5) EOS % (test code = 0.3 % 713-8) BASO % (test code = 0.3 % 706-2) GRAN MAT x10^3(ANC) 22.98 10*3/uL 1.88-7.09 H (test code = 6975048772) IMM GRAN x10^3 (test 0.33 10*3/uL 0.00-0.06 H code = 3026546330) LYMPH x10^3 (test code 1.26 10*3/uL 1.32-3.29 L = 731-0) MONO x10^3 (test code 1.38 10*3/uL 0.33-0.92 H = 742-7) EOS x10^3 (test code = 0.07 10*3/uL 0.03-0.39 711-2) BASO x10^3 (test code 0.09 10*3/uL 0.01-0.07 H = 704-7) BANDS (test code = Increased A 2175478696) DOHLE BODIES (test Present A code = 7792-5) REACT LYMPHS (test Rare code = 6808879255) TOXIC CHANGES (test Present A code = 803-7) Lab Interpretation Abnormal (test code = 42281-9) [facility] WITH [id number] 18:01:46 Test Item Value Reference Range Interpretation Comments WBC (test code = 26.11 See_Comment H [Automated 6590-2) message] The system which generated this result transmit jordan reference range : 4.30 - 11.10 10*3/?L. The reference range was not used to interpret this result as normal/abnormal . RBC (test code = 4.22 See_Comment [Automated 459-8) message] The system which generated this result transmit jordan reference range : 3.93 - 5.25 10*6/?L. The reference range was not used to interpret this result as normal/abnormal . HGB (test code = 11.3 g/dL 11.6-15.0 L 718-7) HCT (test code = 34.4 % 35.7-45.2 L 4544-3) MCV (test code = 81.5 fL 80.6-95.5 787-2) MCH (test code = 26.8 pg 25.9-32.8 785-6) MCHC (test code = 32.8 g/dL 31.6-35.1 786-4) RDW-SD (test code = 44.3 fL 39.0-49.9 79327-3) RDW-CV (test code = 15.0 % 12.0-15.5 788-0) PLT (test code = 359 See_Comment H [Automated 777-3) message] The system which generated this result transmit jordan reference range : 166 - 358 10*3/ ?L. The reference range was not u sed to interpret th is result as normal/abnormal . MPV (test code = 9.1 fL 9.5-12.9 L 86574-7) NRBC/100 WBC (test 0.0 See_Comment [Automat ed code = 1590909436) message] The system which generated this result transmit jordan reference range : 0.0 - 10.0 /100 WBCs. The reference range was not used to interpret this result as normal/abnormal . NRBC x10^3 (test code See_Comment [Auto mated = 7488331717) message] The system which generated this result transmit jordan reference range : 10*3/?L. The reference range was not used to interpret this result as normal/abnormal . GRAN MAT (NEUT) % 88.0 % (test code = 770-8) IMM GRAN % (test code 1.30 % = 0709397453) LYMPH % (test code = 4.8 % 736-9) MONO % (test code = 5.3 % 5905-5) EOS % (test code = 0.3 % 713-8) BASO % (test code = 0.3 % 706-2) GRAN MAT x10^3(ANC) 22.98 10*3/uL 1.88-7.09 H (test code = 1909612163) IMM GRAN x10^3 (test 0.33 10*3/uL 0.00-0.06 H code = 6243420122) LYMPH x10^3 (test code 1.26 10*3/uL 1.32-3.29 L = 731-0) MONO x10^3 (test code 1.38 10*3/uL 0.33-0.92 H = 742-7) EOS x10^3 (test code = 0.07 10*3/uL 0.03-0.39 711-2) BASO x10^3 (test code 0.09 10*3/uL 0.01-0.07 H = 704-7) BANDS (test code = Increased A 5994941794) DOHLE BODIES (test Present A code = 7792-5) REACT LYMPHS (test Rare code = 9846885303) TOXIC CHANGES (test Present A code = 803-7) Lab Interpretation Abnormal (test code = 13533-9) [facility] (ALB,T.PRO,BILI T,BU/BC,ALT,AST,ALK PHOS)2022-11-29 17:39:36 Test Item Value Reference Range Interpretation Comments TOTAL BILI (test code = 3875470617) 2.6 mg/dL 0.1-1.1 H BILI UNCON (test code = 9522156837) 1.3 mg/dL 0.1-1.1 H BILI CONJ (test code = 2836982090) 0.3 mg/dL 0.0-0.3 T PROTEIN (test code = 7649362342) 7.2 g/dL 6.3-8.2 ALBUMIN (test code = 8197474581) 3.8 g/dL 3.5-5.0 ALK PHOS (test code = 0557362368) 148 U/L 34-122 H ALTv (test code = 1742-6) 32 U/L 5-35 AST(SGOT) (test code = 5167506698) 32 U/L 13-40 Lab Interpretation (test code = Abnormal 35091-1) [facility]23100[facility] (ALB,T.PRO,BILI T,BU/BC,ALT,AST,ALK PHOS)2022-11-29 17:39:36 Test Item Value Reference Range Interpretation Comments TOTAL BILI (test code = 5166061410) 2.6 mg/dL 0.1-1.1 H BILI UNCON (test code = 7417094144) 1.3 mg/dL 0.1-1.1 H BILI CONJ (test code = 2509314726) 0.3 mg/dL 0.0-0.3 T PROTEIN (test code = 0547852534) 7.2 g/dL 6.3-8.2 ALBUMIN (test code = 2494408387) 3.8 g/dL 3.5-5.0 ALK PHOS (test code = 6310017303) 148 U/L 34-122 H ALTv (test code = 1742-6) 32 U/L 5-35 AST(SGOT) (test code = 3800878841) 32 U/L 13-40 Lab Interpretation (test code = Abnormal 38376-7) [facility]16106[facility] (ALB,T.PRO,BILI T,BU/BC,ALT,AST,ALK PHOS)2022-11-29 17:39:36 Test Item Value Reference Range Interpretation Comments TOTAL BILI (test code = 4991381622) 2.6 mg/dL 0.1-1.1 H BILI UNCON (test code = 9865203137) 1.3 mg/dL 0.1-1.1 H BILI CONJ (test code = 8185118619) 0.3 mg/dL 0.0-0.3 T PROTEIN (test code = 2579635819) 7.2 g/dL 6.3-8.2 ALBUMIN (test code = 5501050623) 3.8 g/dL 3.5-5.0 ALK PHOS (test code = 8072743549) 148 U/L 34-122 H ALTv (test code = 1742-6) 32 U/L 5-35 AST(SGOT) (test code = 4267138582) 32 U/L 13-40 Lab Interpretation (test code = Abnormal 78871-4) [facility]02328[facility] (ALB,T.PRO,BILI T,BU/BC,ALT,AST,ALK PHOS)2022-11-29 17:39:36 Test Item Value Reference Range Interpretation Comments TOTAL BILI (test code = 2822463372) 2.6 mg/dL 0.1-1.1 H BILI UNCON (test code = 1058530055) 1.3 mg/dL 0.1-1.1 H BILI CONJ (test code = 3573181829) 0.3 mg/dL 0.0-0.3 T PROTEIN (test code = 8034844141) 7.2 g/dL 6.3-8.2 ALBUMIN (test code = 6785246636) 3.8 g/dL 3.5-5.0 ALK PHOS (test code = 6858091710) 148 U/L 34-122 H ALTv (test code = 1742-6) 32 U/L 5-35 AST(SGOT) (test code = 3638916070) 32 U/L 13-40 Lab Interpretation (test code = Abnormal 86056-0) [facility] (NA, K, CL, CO2, GLUCOSE, BUN, CREATININE, CA)2022-11-29 17:39:31 Test Item Value Reference Range Interpretation Comments NA (test code = 131 mmol/L 135-145 L 7486027187) K (test code = 3.8 mmol/L 3.5-5.0 7390323064) CL (test code = 92 mmol/L 98-108 L 8142082123) CO2 TOTAL (test code = 19 mmol/L 23-31 L 3322359458) AGAP (test code = 20 2-16 H 6551404970) BUN (test code = 22 mg/dL 7-23 0329923933) GLUCOSE (test code = 372 mg/dL 70-110 H 4027652575) CREATININE (test code = 1.71 mg/dL 0.50-1.04 H 5955650653) CALCIUM (test code = 8.5 mg/dL 8.6-10.6 L 5115632353) eGFR (test code = 31.2 mL/min/1.73m2 9058397722) GALLITO (test code = GALLITO) Association of Glomerular Filtration Rate (GFR) and Staging of Kidney Disease* + --+ --+ ------+| GFR (mL/min/1.73 m2) ?| With Kidney Damage ?| ?Without Kidney Damage+ --------+ --------+ +| ?>90 ?| ?Stage one ?| ? Normal ?+ ---+ ---+ -------+| ?60-89 ?| ?Stage two ?| ? Decreased GFR ? + --+ --+ ------+| ?30-59 ?| ?Stage three ?| ? Stage three ? + --+ --+ ------+| ?15-29 ?| ?Stage four ? | ? Stage four ?+ ---+ ---+ -------+| ?<15 (or dialysis) ? ?| ?Stage five ? | ? Stage five ?+ ---+ ---+ -------+ *Each stage assumes the associated GFR level has been in effect for at least three months. ?Stages 1 to 5, with or without kidney disease, indicate chronic kidney disease. Notes: Determination of stages one and two (with eGFR >59mL/min/1.73 m2) requires estimation of kidney damage for at least three months as defined by structural or functional abnormalities of the kidney, manifested by either:Pathological abnormalities or Markers of kidney damage (including abnormalities in the composition of the blood or urine or abnormalities in imaging tests). Lab Interpretation Abnormal (test code = 62491-4) [facility] Test Item Value Reference Range Interpretation Comments LIPASE (test code = 1442103779) 73 U/L 0-220 Lab Interpretation (test code = Normal 78622-8) [facility] (NA, K, CL, CO2, GLUCOSE, BUN, CREATININE, CA)2022-11-29 17:39:31 Test Item Value Reference Range Interpretation Comments NA (test code = 131 mmol/L 135-145 L [id number]) K (test code = 3.8 mmol/L 3.5-5.0 1507383998) CL (test code = 92 mmol/L 98-108 L 9078765076) CO2 TOTAL (test code = 19 mmol/L 23-31 L 2979968020) AGAP (test code = 20 2-16 H 1548998772) BUN (test code = 22 mg/dL 7-23 5644816121) GLUCOSE (test code = 372 mg/dL 70-110 H 8183181317) CREATININE (test code = 1.71 mg/dL 0.50-1.04 H 0924556377) CALCIUM (test code = 8.5 mg/dL 8.6-10.6 L 1351062042) eGFR (test code = 31.2 mL/min/1.73m2 6368576098) GALLITO (test code = GALLITO) Association of Glomerular Filtration Rate (GFR) and Staging of Kidney Disease* + --+ --+ ------+| GFR (mL/min/1.73 m2) ?| With Kidney Damage ?| ?Without Kidney Damage+ --------+ --------+ +| ?>90 ?| ?Stage one ?| ? Normal ?+ ---+ ---+ -------+| ?60-89 ?| ?Stage two ?| ? Decreased GFR ? + --+ --+ ------+| ?30-59 ?| ?Stage three ?| ? Stage three ? + --+ --+ ------+| ?15-29 ?| ?Stage four ? | ? Stage four ?+ ---+ ---+ -------+| ?<15 (or dialysis) ? ?| ?Stage five ? | ? Stage five ?+ ---+ ---+ -------+ *Each stage assumes the associated GFR level has been in effect for at least three months. ?Stages 1 to 5, with or without kidney disease, indicate chronic kidney disease. Notes: Determination of stages one and two (with eGFR >59mL/min/1.73 m2) requires estimation of kidney damage for at least three months as defined by structural or functional abnormalities of the kidney, manifested by either:Pathological abnormalities or Markers of kidney damage (including abnormalities in the composition of the blood or urine or abnormalities in imaging tests). Lab Interpretation Abnormal (test code = 89329-9) [facility] Test Item Value Reference Range Interpretation Comments LIPASE (test code = 3009364263) 73 U/L 0-220 Lab Interpretation (test code = Normal 42118-1) [facility] (NA, K, CL, CO2, GLUCOSE, BUN, CREATININE, CA)2022-11-29 17:39:31 Test Item Value Reference Range Interpretation Comments NA (test code = 131 mmol/L 135-145 L 8912297743) K (test code = 3.8 mmol/L 3.5-5.0 5889393877) CL (test code = 92 mmol/L 98-108 L 9026368796) CO2 TOTAL (test code = 19 mmol/L 23-31 L 4442026823) AGAP (test code = 20 2-16 H 7579329875) BUN (test code = 22 mg/dL 7-23 1365450835) GLUCOSE (test code = 372 mg/dL 70-110 H 2468111594) CREATININE (test code = 1.71 mg/dL 0.50-1.04 H 5768938062) CALCIUM (test code = 8.5 mg/dL 8.6-10.6 L 1675817890) eGFR (test code = 31.2 mL/min/1.73m2 3302268923) GALLITO (test code = GALLITO) Association of Glomerular Filtration Rate (GFR) and Staging of Kidney Disease* + --+ --+ ------+| GFR (mL/min/1.73 m2) ?| With Kidney Damage ?| ?Without Kidney Damage+ --------+ --------+ +| ?>90 ?| ?Stage one ?| ? Normal ?+ ---+ ---+ -------+| ?60-89 ?| ?Stage two ?| ? Decreased GFR ? + --+ --+ ------+| ?30-59 ?| ?Stage three ?| ? Stage three ? + --+ --+ ------+| ?15-29 ?| ?Stage four ? | ? Stage four ?+ ---+ ---+ -------+| ?<15 (or dialysis) ? ?| ?Stage five ? | ? Stage five ?+ ---+ ---+ -------+ *Each stage assumes the associated GFR level has been in effect for at least three months. ?Stages 1 to 5, with or without kidney disease, indicate chronic kidney disease. Notes: Determination of stages one and two (with eGFR >59mL/min/1.73 m2) requires estimation of kidney damage for at least three months as defined by structural or functional abnormalities of the kidney, manifested by either:Pathological abnormalities or Markers of kidney damage (including abnormalities in the composition of the blood or urine or abnormalities in imaging tests). Lab Interpretation Abnormal (test code = 04078-9) [facility] Test Item Value Reference Range Interpretation Comments LIPASE (test code = 2451360377) 73 U/L 0-220 Lab Interpretation (test code = Normal 67847-4) [facility] (NA, K, CL, CO2, GLUCOSE, BUN, CREATININE, CA)2022-11-29 17:39:31 Test Item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
[2023-05-05 00:59] LABS: Absolute Lymphocytes (CBC) 1.2 K/uL (0.7-4.9); Hematocrit 26.3 % (36.0-45.0); Lymphocytes % 11.7 % (15.3-44.8); MCV 71.5 fL (80-100); MPV 7.1 fL (7.6-11.3); Platelets 422 thou/uL (152-406); RBC Red Blood Cell Count 3.68 M/uL (3.86-4.86)
[2023-05-05 01:13] LABS: Magnesium 1.9 mg/dL (1.6-2.4); Potassium 4.1 mEq/L (3.5-5.1)
[2023-05-05] MEDS ORDERED: D10W 250 ML IV ONE ×3 (01:27→16:23)
--- NOTE | 2023-05-05 01:33 | ER ---
Nurse's Notes [facility] Name: Hilda Garcia Age: 52 yrs Sex: Female : 1970 Arrival Date: 05/05/2023 Time: 00:06 Bed 15 Private MD: Diagnosis: Chest pain, unspecified;Hypoglycemia, unspecified Presentation: 05/05 00:18 Chief complaint: EMS states: toned out for low blood sugar blood sugar on arrival was kl 269 given dextrose repeat was 127 pt reports chest discomfort and SOB began in afternoon. Coronavirus screen: Vaccine status: Patient reports receiving the 2nd dose of the covid vaccine. Ebola Screen: Patient negative for fever greater than or equal to 101.5 degrees Fahrenheit, and additional compatible Ebola Virus Disease symptoms. Initial Sepsis Screen: Does the patient meet any 2 criteria? No. Patient's initial sepsis screen is negative. Does the patient have a suspected source of infection? No. Patient's initial sepsis screen is negative. Risk Assessment: Do you want to hurt yourself or someone else? Patient reports no desire to harm self or others. 00:18 Method Of Arrival: EMS: [facility] 00:18 Acuity: JENIFER 3 kl 04:41 Onset of symptoms was May 05, 2023. rv Triage Assessment: 00:20 General: Appears uncomfortable, Behavior is cooperative. Pain: Complains of pain in kl chest Pain does not radiate. Pain currently is 2 out of 10 on a pain scale. Quality of pain is described as heavy, Pain began gradually. EENT: No deficits noted. Neuro: No deficits noted. Respiratory: Airway is patent Trachea midline Respiratory effort is labored, Respiratory pattern is tachypnea. GI: Reports nausea. : No deficits noted. No signs and/or symptoms were reported regarding the genitourinary system. Derm: No deficits noted. No signs and/or symptoms reported regarding the dermatologic system. Musculoskeletal: No deficits noted. No signs and/or symptoms reported regarding the musculoskeletal system. Historical: - Allergies: 00:20 No Known Allergies; kl - PMHx: 00:20 Hypertensive disorder; Diabetes mellitus; kl - Immunization history:: Adult Immunizations. - Social history:: Smoking status: Patient denies any tobacco usage or history of. Screenin:45 [facility] ED Fall Risk Assessment (Adult) History of falling in the last 3 months, kl including since admission No falls in past 3 months (0 pts) Confusion or Disorientation No (0 pts) Intoxicated or Sedated No (0 pts) Impaired Gait No (0 pts) Mobility Assist Device Used No (0 pt) Altered Elimination No (0 pt) Score/Fall Risk Level 0 - 2 = Low Risk Oriented to surroundings, Maintained a safe environment. Abuse screen: Denies threats or abuse. Nutritional screening: No deficits noted. Tuberculosis screening: No symptoms or risk factors identified. Assessment: 01:45 Reassessment: Patient appears in no apparent distress at this time. Patient denies pain kl at this time. Patient states feeling better. tolerating po. Vital Signs: 00:18 BP 133 / 68; Pulse 87; Resp 26; Temp 99.3; Pulse Ox 99% on R/A; Weight 125.19 kg (R); kl Height 5 ft. 6 in. ; Pain 0/10; 01:45 BP 139 / 78; Pulse 82; Resp 20 S; Pulse Ox 95% ; kl 00:18 Body Mass Index 44.55 (125.19 kg, 167.64 cm) kl 00:18 Pain Scale: Adult ED Course: 00:16 Patient arrived in ED. kb 00:16 Silke Cabezas FNP-C is PHCP. kb 00:16 Livan Rock MD is Attending Physician. kb 00:19 Triage completed. kl 00:38 XRAY Chest (1 view) In Process Unspecified. EDMS 00:41 Basic Metabolic Panel Sent. kl 00:41 CBC with Diff Sent. kl 00:41 Magnesium Sent. kl 00:41 NT PRO-BNP Sent. kl 00:41 Troponin HS Sent. kl 01:32 Tl Boucher is Hospitalizing Provider. kb 01:46 Maintain EMS IV. Dressing intact. Good blood return noted. Site clean \T\ dry. Gauge \T\ kl site: 20 to right forearm. 01:46 Patient has correct armband on for positive identification. Bed in low position. Call kl light in reach. Side rails up X2. 04:41 Shyam Beasley RN is Primary Nurse. rv 04:41 No provider procedures requiring assistance completed. Patient admitted, IV remains in rv place. 04:41 Arm band placed on right wrist. rv Administered Medications: 00:42 Drug: Aspirin PO Chewable Tablet 324 mg Route: PO; kl 01:18 Drug: D10 in Water IVP 250 ml Route: IVP; Site: right forearm; jb4 Medication: 04:41 VIS not applicable for this client. rv Outcome: 01:32 Decision to Hospitalize by Provider. kb 02:44 Admitted to ER Hold. Please see [facility] for further documentation. kl 02:44 Admitted to Report called to Albert CATALAN 02:44 Condition: stable 02:44 Instructed on the need for admit. 08:32 Patient left the ED. ph Signatures: Dispatcher [employer] EDOR Silke Cabezas, FINANCIAL ANALYST-C FINANCIAL ANALYST-Mel Bellamy RN RN Katia Montenegro RN RN Mauricio Buchanan RN RN jbShyam Mora RN RN rv
--- NOTE | 2023-05-05 01:33 | EDPHYS ---
Physician Documentation [facility] Name: Hilda Garcia Age: 52 yrs Sex: Female : 1970 Arrival Date: 05/05/2023 Time: 00:06 Bed 15 Private MD: ED Physician Livan Rock HPI: 05/05 00:20 This 52 yrs old Female presents to ER via EMS with complaints of low blood kb sugar. 00:18 EMS was toned out for "diabetic emergency." States pt was altered upon their arrival, kb BGL 29. Pt was given 225ml of D10. Pt now awake, alert and oriented x4. Pt was started on trulicity 3 weeks ago and takes metformin. Pt reports shortness of breath and chest pressure that started this afternoon as well. 00:20 The patient or guardian reports altered mental status, hypoglycemia, Treatment prior to kb arrival includes: EMS D10. Onset: The symptoms/episode began/occurred just prior to arrival. Associated signs and symptoms: Pertinent positives: AMS. Current symptoms: In the emergency department the patient's symptoms have resolved. The patient has not experienced similar symptoms in the past. The patient has not recently seen a physician. Historical: - Allergies: 00:20 No Known Allergies; kl - PMHx: 00:20 Hypertensive disorder; Diabetes mellitus; kl - Immunization history:: Adult Immunizations. - Social history:: Smoking status: Patient denies any tobacco usage or history of. ROS: 00:20 Constitutional: Negative for fever, chills, and weight loss. kb 00:20 Cardiovascular: Positive for chest pain. 00:20 Respiratory: Positive for shortness of breath. 00:20 Neuro: Positive for altered mental status. 00:20 All other systems are negative. Exam: 00:20 Constitutional: This is a well developed, well nourished patient who is awake, alert, kb and in no acute distress. Head/Face: Normocephalic, atraumatic. ENT: Moist Mucous membranes Abdomen/GI: Soft, non-tender. No distention Skin: Warm, dry with normal turgor. Normal color. MS/ Extremity: Pulses equal, no cyanosis. Neurovascular intact. Full, normal range of motion. Neuro: Awake and alert, GCS 15, oriented to person, place, time, and situation. Moves all extremities. Normal gait. 00:20 Cardiovascular: Rate: normal, Rhythm: regular, Pulses: no pulse deficits are appreciated, Heart sounds: murmur. 00:20 Respiratory: mild respiratory distress is noted, Respirations: labored breathing, that is mild, Breath sounds: are clear throughout. 00:42 ECG was reviewed by the Attending Physician. kb Vital Signs: 00:18 BP 133 / 68; Pulse 87; Resp 26; Temp 99.3; Pulse Ox 99% on R/A; Weight 125.19 kg (R); kl Height 5 ft. 6 in. ; Pain 0/10; 01:45 BP 139 / 78; Pulse 82; Resp 20 S; Pulse Ox 95% ; kl 00:18 Body Mass Index 44.55 (125.19 kg, 167.64 cm) kl 00:18 Pain Scale: Adult kl MDM: 00:16 Patient medically screened. kb 00:23 Differential diagnosis: hypoglycemic episode, GA, abnormal EKG. Data reviewed:. kb Historians other than the Patient: EMS: [facility]. 01:31 Consideration of Admission/Observation Patient was admitted/placed on observation. kb Escalation of care including admission/observation considered. Management of patient was discussed with the following: Hospitalist: SUKHJINDER Clark accepts pt for admission. Counseling: I had a detailed discussion with the patient and/or guardian regarding the historical points, exam findings, and any diagnostic results supporting the discharge/admit diagnosis, lab results, the need for further work-up and treatment in the hospital. 05/05 00:16 Order name: Basic Metabolic Panel; Complete Time: 01:15 kb 05/05 00:16 Order name: CBC with Diff; Complete Time: 01:12 kb 05/05 00:16 Order name: Magnesium; Complete Time: 01:15 kb 05/05 00:16 Order name: NT PRO-BNP; Complete Time: 01:15 kb 05/05 00:16 Order name: Troponin HS; Complete Time: 01:15 kb 05/05 04:39 Order name: Glucose, Ancillary Testing EDMS 05/05 05:39 Order name: Glucose, Ancillary Testing EDMS 05/05 05:44 Order name: CBC with Automated Diff EDMS 05/05 05:59 Order name: Troponin High Sensitivity EDMS 05/05 06:06 Order name: Basic Metabolic Panel EDMS 05/05 06:06 Order name: NT PRO-BNP EDMS 05/05 06:06 Order name: Magnesium EDMS 05/05 06:32 Order name: Glucose, Ancillary Testing EDMS 05/05 07:17 Order name: Glucose, Ancillary Testing EDMS 05/05 07:45 Order name: Glucose, Ancillary Testing EDMS 05/05 00:16 Order name: XRAY Chest (1 view) kb 05/05 00:16 Order name: EKG; Complete Time: 00:17 kb 05/05 00:16 Order name: Cardiac monitoring; Complete Time: 00:41 kb 05/05 00:16 Order name: EKG - Nurse/Tech; Complete Time: 00:41 kb 05/05 00:16 Order name: IV Saline Lock; Complete Time: 00:41 kb 05/05 00:16 Order name: Labs collected and sent; Complete Time: 00:41 kb 05/05 00:16 Order name: O2 Per Protocol; Complete Time: 00:41 kb 05/05 00:16 Order name: O2 Sat Monitoring; Complete Time: 00:41 kb EC:42 Rate is 87 beats/min. Rhythm is regular. QRS [place] is Normal. [place] interval is normal at kb 186 msec. QRS interval is normal at 86 msec. QT interval is normal at 447 msec. Administered Medications: 00:42 Drug: Aspirin PO Chewable Tablet 324 mg Route: PO; kl 01:18 Drug: D10 in Water IVP 250 ml Route: IVP; Site: right forearm; jb4 Disposition: 03:23 Co-signature as Attending Physician, Livan Rock MD I agree with the assessment sp4 and plan of care. I reviewed the patient's care provided by Advanced Practice Provider \\T\\ agree w/ the diagnosis \\T\\ care plan. I personally saw the pt \\T\\ performed a substantive portion of the visit, incldng all aspects of the (History/Exam/Medical Decision Making). Disposition Summary: 05/05/23 01:32 Hospitalization Ordered Hospitalization Status: Observation kb Provider: Tl Boucher Condition: Stable kb Problem: new kb Symptoms: are unchanged kb Bed/Room Type: Standard kb Location: Telemetry/MedSurg (observation)(05/05/23 05:01) eb1 Room Assignment: [facility](05/05/23 05:01) eb1 Diagnosis - Chest pain, unspecified kb - Hypoglycemia, unspecified kb Forms: - Medication Reconciliation Form kb - SBAR form kb - Leadership Thank You Letter kb Signatures: Dispatcher [employer] Silke Mancilla, ACCESS SERVICES LIBRARIAN-C NEREYDA-Mel Bellamy, RN Mauricio Anderson RN RN jb4 Christine Rodriguez RN RN eb1 Livan Rock MD MD sp4 Corrections: (The following items were deleted from the chart) 02:12 01:32 Telemetry/MedSurg (observation) kb jb4 02:12 01:32 kb jb4 05:01 02:12 [facility] ER HOLD jb4 eb1 05:01 02:12 ERHOLD- jb4 eb1
--- NOTE | 2023-05-05 01:55 | P.HP ---
Certification for Inpatient Patient admitted to: Observation With expected LOS: <2 Midnights Patient will require the following post-hospital care: None Practitioner: I am a practitioner with admitting privileges, knowledge of patient current condition, hospital course, and medical plan of care. Services: Services provided to patient in accordance with Admission requirements found in Title 42 Section 412.3 of the Code of Federal Regulations Patient History Date of Service: 05/05/23 Reason for admission: Hypoglycemia History of Present Illness: 52 yrs old Female with past medical history obesity, hypertension, diabetes presents to ER via EMS for hypoglycemia. She reports taking metformin, trulicity weekly started 3 weeks ago. She reports associated nausea, mild confusion, feeling unwell. She reported mild chest pain during hypoglycemia episode. Plan to admit for Chest pain, unspecified, Hypoglycemia, unspecified Lab evaluation BG 32, BUN 19, Cr 0.69, TBNP 1741, Trop normal 12.0, WBC normal, HH 8.8, 26.3, Left shift 78.9, ER course EKG Rate is 87 beats/min. Rhythm is regular. QRS [place] is Normal. [place] interval is normal at186 msec. QRS interval is normal at 86 msec. QT interval is normal at 447 msec. BP 133 / 68; Pulse 87; Resp 26; Temp 99.3; Pulse Ox 99% on R/A; Weight 125.19 kg (R); kl Height 5 ft. 6 in. ; Pain 0/10; CXR cardiomeagly, without failure Allergies No Known Allergies Allergy (Verified 05/05/23 02:23) - Past Medical/Surgical History Diabetic: Yes -: HTN -: Diabetes -: Hysterectomy -: Ankle surgery - Social History Smoking Status: Never smoker Smoking therapy provided: No Patient receptive to therapy: No CD- Drugs: No Caffeine use: No Place of Residence: Home Review of Systems 10-point ROS is otherwise unremarkable Physical Examination - Physical Exam General: Alert, In no apparent distress, Oriented x3, Obese HEENT: Atraumatic, Normocephalic, PERRLA Neck: Supple, 2+ carotid pulse no bruit, JVD not distended Respiratory: Clear to auscultation bilaterally, Diminished Cardiovascular: No edema, Normal pulses, Regular rate/rhythm Capillary refill: <2 Seconds Gastrointestinal: Normal bowel sounds Musculoskeletal: No clubbing, No swelling Integumentary: No rashes, No breakdown Neurological: Normal speech, Normal strength at 5/5 x4 extr, Normal tone - Studies Laboratory Data (last 24 hrs) 05/05/23 05/05/23 00:35 00:35 WBC 10.20 Hgb 8.8 L Hct 26.3 L Plt Count 422 H Sodium 139 Potassium 4.1 BUN 19 H Creatinine 0.69 Glucose 32 L* Magnesium 1.9 Assessment and Plan - Plan Assessment plan Chest pain, unspecified Cardiomegaly Elevated BNP Hypoglycemia Normocytic anemia Obesity Assessment plan Chest pain Cardiomegaly Elevated BNP BNP, trend troponin, as needed Lasix, TBNP 1741, Trop normal 12.0, EKG Rate is 87 beats/min. Rhythm is regular. QRS [place] is Normal. [place] interval is normal at186 msec. QRS interval is normal at 86 msec. QT interval is normal at 447 msec BP 133 / 68; Pulse 87; Resp 26; Temp 99.3; Pulse Ox 99% on R/A; CXR cardiomeagly, without failure Hypoglycemia D5 half-normal BG 32 AC ACHS, Normocytic anemia HH 8.8, 26.3, Obesity rubber cutter consult Diet diabetic Full code DVT lovenox Discharge Plan: Home Plan to discharge in: 24 Hours - Advance Directives Does patient have a Living Will: No Does patient have a Durable POA for Healthcare: No - Code Status/Comfort Care Code Status Assessed: Yes Code Status: Full Code Physician Review: Patient Assessed, Agree with Above Assessment and Plan Critical Care: No Time Spent Managing Pts Care (In Minutes): 50
[2023-05-05] MEDS: D5 0.45 NS 1,000 ML IV SCH ×2 (02:03→09:00)
[2023-05-05] MEDS ORDERED: FUROSEMIDE 40 MG/4 ML VIAL IV ONE (02:03)
[2023-05-05] MEDS ORDERED: D5 0.45 NS 1,000 ML IV ONE (03:38)
[2023-05-05 04:21] VITALS: BMI 44.5
[2023-05-05 05:40] LABS: Absolute Lymphocytes (CBC) 0.9 K/uL (0.7-4.9); Hematocrit 26.6 % (36.0-45.0); Lymphocytes % 9.9 % (15.3-44.8); MCV 71.9 fL (80-100); MPV 6.8 fL (7.6-11.3); Platelets 429 thou/uL (152-406)
[2023-05-05 06:05] LABS: Magnesium 2.1 mg/dL (1.6-2.4)
[2023-05-05] MEDS ORDERED: FUROSEMIDE 40 MG/4 ML VIAL ONE (06:51)
[2023-05-05] MEDS: INSULIN -REGULAR HUMAN 50 UNIT/0.5 ML ML SQ SCH ×4 (07:30→21:00)
[2023-05-05] MEDS: ACETAMINOPHEN 500 MG TAB PO PRN ×2 (09:00→16:14)
[2023-05-05] MEDS: ENOXAPARIN 40 MG/0.4 ML SQ SCH (09:00)
--- NOTE | 2023-05-05 12:25 | EKG ---
Test Date: 2023-05-05 Test Time: 00:31:11 [place] Worker: LARRY MEASUREMENT RESULTS: Intervals: Rate: 87 MD: 186 QRSD: 86 QT: 372 QTc: 447 [place]: P: 46 MD: 186 QRS: 27 T: 63 INTERPRETIVE STATEMENTS: Normal sinus rhythm Normal ECG No previous ECG available for comparison Electronically Signed On 05-05-23 12:24:31 CDT by Levi Rouse
[2023-05-05] MEDS ORDERED: D10W 250 ML IV SCH (17:00)
[2023-05-05] MEDS ORDERED: ONDANSETRON 4 MG/2 ML VIAL IV PRN (21:38)
[2023-05-05 22:07] VITALS: O2SAT 94
[2023-05-06] MEDS: D5 0.45 NS 1,000 ML IV SCH (04:57)
[2023-05-06] MEDS: INSULIN -REGULAR HUMAN 50 UNIT/0.5 ML ML SQ SCH ×3 (07:30→16:21)
[2023-05-06 07:39] LABS: Absolute Lymphocytes (CBC) 1.2 K/uL (0.7-4.9); Hematocrit 25.3 % (36.0-45.0); Lymphocytes % 17.8 % (15.3-44.8); MCV 71.6 fL (80-100); MPV 6.7 fL (7.6-11.3); Platelets 424 thou/uL (152-406); RBC Red Blood Cell Count 3.53 M/uL (3.86-4.86)
[2023-05-06 07:50] LABS: Magnesium 2.1 mg/dL (1.6-2.4); Potassium 4.3 mEq/L (3.5-5.1); Troponin High Sensitivity 10.5 pg/mL (<58.9)
[2023-05-06] MEDS: ENOXAPARIN 40 MG/0.4 ML SQ SCH (08:55)
[2023-05-06 12:47] LABS: Albumin 2.6 g/dL (3.4-5.0); Bilirubin Direct 0.2 mg/dL (0-0.2); Bilirubin Indirect, Calculated 0.2 mg/dL (0.2-0.8); Bilirubin Total 0.4 mg/dL (0.2-1.0); Protein, Total 7.1 g/dL (6.4-8.2)
--- NOTE | 2023-05-06 13:48 | RAD REPORT ---
EXAM DESCRIPTION: [place] Single View05/06/2023 1:36 pm CLINICAL HISTORY: Cough COMPARISON: May 05, 2023 FINDINGS: The ajay are hazy Heart is mildly to moderately enlarged IMPRESSION: These findings probably indicate mild CHF
[2023-05-06] MEDS ORDERED: FUROSEMIDE 20 MG/ 2ML VIAL IV ONE (14:22)
[2023-05-06] MEDS ORDERED: SOD FERRIC GLUC COMPLX/SUCROSE 125 MG in NA CHLORIDE 0.9% 100 ML IV SCH (15:00)
[2023-05-06 16:44] VITALS: BP 159/78; TEMP 98.7
--- NOTE | 2023-05-07 18:13 | RAD REPORT ---
EXAM DESCRIPTION: RAD - Chest Single View - 05/05/2023 12:36 am CLINICAL HISTORY: The patient is 52 years old and is Female; CHEST PAIN TECHNIQUE: Frontal view of the chest. COMPARISON: No relevant prior studies available. FINDINGS: LIMITATIONS: Suboptimal study secondary to artifact related to patient body habitus. LUNGS: Unremarkable. No consolidation. PLEURAL SPACE: Unremarkable. No pneumothorax. HEART: The heart is enlarged. MEDIASTINUM: Unremarkable. BONES/JOINTS: Multilevel degenerative change of the spine is present. UPPER ABDOMEN: Unremarkable as visualized. IMPRESSION: Cardiomegaly without failure. Electronically signed by: Rosi Garrison MD 05/05/2023 2:22 AM CDT Due to temporary technical issues with the PACS/Fluency reporting system, reports are being signed by the in house radiologists without review as a courtesy to insure prompt reporting. The interpreting radiologist is fully responsible for the content of the report.
== END 2023-05-06 17:26 | disposition home or self-care (01) | DRG 638 ==
LOC: ER 00:06 → ERHOLD 01:55 → 4TH 07:31 → OBSVTOIN 15:48
PROVIDERS: ADMIT Hospitalist; ATTEND Hospitalist
DX: E11.649 Type 2 diabetes mellitus with hypoglycemia without coma (principal); Z68.41 Body mass index [BMI] 40.0-44.9, adult; E66.9 Obesity, unspecified; I10 Essential (primary) hypertension; I51.7 Cardiomegaly; D64.9 Anemia, unspecified; R79.89 Other specified abnormal findings of blood chemistry; Z79.84 Long term (current) use of oral hypoglycemic drugs; Z90.710 Acquired absence of both cervix and uterus
CPT/HCPCS: 36415; 71045; 80048; 80076; 82607; 82947; 83036; 83525; 83540; 83735; 83880; 84206; 84484; 84681; 85025; 93005; 99285; G0378; J1650; J1940; J2405; J2916; J7799

== ENCOUNTER 2024-07-30 11:41 | Inpatient (IN) | payer BC, MEDICARE ==
--- OUTSIDE RECORDS SUMMARY | 2024-07-30 12:01 | XMS REPORT | Continuity of Care Document ---
Author Name Unknown Address [address] [facility]. [address] [place] [address] [facility] Address [address] [facility] [place] [address] Care Team Providers Care Quality Compliance Manager Name Role Phone SIMA LLOYD Primary Care Physician Unavailab ACE Escalante Attending Clinician UnavailSCOTT Grider Attending Clinician Unavailable SCOTT RUSSELL Attending Clinician Unavailable KALINA SANCHEZ Attending Clinician Unavailable SYSTEM, PROVIDER NOT IN Attending Clinician Unav ailable JOAO MARADIAGA Attending Clinician Unavailable JOAO MARADIAGA Attending Clinician Unavailable TRACY GRIJALVA Attending Clinician Unavailable TRACY GRIJALVA Attending Clinician Unavailable RICK RDZ Attending Clinician UnavailXOCHITL Ortega Attending Clinician Unavailab XOCHITL Gordon Attending Clinician Unavailab VICENTE Lindo Attending Clinician UnavailMEHREEN Weiss Attending Clinician Unavailable CHEYANNE GRAY Attending Clinician Unavailable TODD SOLIS Attending Clinician Kendra JANNIE Artis Attending Clinician Unavailable SIMA LLOYD Attending Clinician Unavailable ARPAN HARDING Attending Clinician Unavailab priscilla Mar MD, [facility] Attending Clinician +- [phone] Elsa Cuellar MD Attending Clinician +[phone] Nav Hernandez MD Attending Clinician +[phone] Arpan Harding MD Attending Clinician +[phone] 2, [facility] Attending Clinician Unavailable Marisabel Buckner MDngjun Attending Clinician +[phone] Jannie Zhao Attending Clinician [phone] RACHEL MEDEIROS Attending Clinician UnavailRACHEL Scott Attending Clinician UnavailArt Cuenca MD Attending Clinician +[phone] Waldemar STOREYC, Rachel Attending Clinician +[phone] LAMONT ODEN Attending Clinician UnavailLamont Barraza PA-C Attending Clinician Ace Valenzuela MD Attending Clinician +[phone] ART GARCIA Attending Clinician Unavailable Xochitl Rodriguez DO Attending Clinician +[phone] Prema DAWN, Sima Attending Clinician +[phone] Lab, Ang - Db Attending Clinician Unavailable Katarzyna Valladares Attending Clinician +[phone] KATARZYNA DE SOUZA Attending Clinician Unavailable CONNER EAGLE Attending Clinician UnavailCONNER Hitchcock Attending Clinician Unavaila LUIS Wheat Attending Clinician Unavailable Tracy Grijalva MD Attending Clinician +[phone] c-Lab Attending Clinician Unavailable Vicente Bates MD Attending Clinician +[phone] Peyton Erazo Attending Clinician + Arpan Medrano MD Attending Clinician +[phone] LIANE DIEGO Attending Clinician Unavailable Luis Felipe Garcia Attending Clinician +[phone] Pcp-Lab Attending Clinician Unavailable Rick Rdz MD Attending Clinician [phone] 1, [facility] Sleep Lab Bed Attending Clinician Unavail Conner Carmona MD Attending Clinician + [phone] LUIS FELIPE AGUILAR Attending Clinician Unavailable Liane Liang Attending Clinician +[phone] ASPEN THURMAN Attending Clinician Kendra Aspen Ulloa MD Attending Clinician FAYE ESCALANTE Attending Clinician Unavailable FAYE ESCALANTE Attending Clinician Unavailable JILL BARRETT Attending Clinician Unavailable Jill Marroquin Attending Clinician + [phone] Rick Rdz MD Attending Clinician +[phone] Prema DAWN, Sima Attending Clinician +[phone] ASTER MAHER Attending Clinician Unavailable ASTER MAHER Attending Clinician Unavailable VICENTA CHAKRABORTY Attending Clinician Unavailab priscilla Stratton MD, Norman Ornelas Attending Clinician +[phone] Aristides JARQUIN, Irma Attending Clinician +[phone] ARPAN MEDRANO Attending Clinician Unavailabl e 2, [facility] Lab Attending Clinician Unavailable Arpan Medrano MD Attending Clinician +[phone] JOAO STANLEY Attending Clinician Unavailable Vicente Bates MD Attending Clinician +[phone] NORMAN STRATTON Attending Clinician Unavailable Doctor Unassigned, Van Attending Clinician U navailable Lab, Ang - Db Attending Clinician Unavailable [facility] Attending Clinician Unavailable Art Garcia MD Attending Clinician +[phone] JOSE ALEXANDER Attending Clinician Unavailable CHOCO XIONG Attending Clinician Unavail able CHOCO XIONG Attending Clinician Unavail able ASHLEY MELO Attending Clinician Unavaila CHANTELLE Tejeda Attending Clinician Unavailable Terence Esteves MD Attending Clinician [phone] LOPEZ JENSEN Attending Clinician Kendra Sandra Robbins MD Attending Clinician +[phone] MARK JONES Attending Clinician UnaMark Rubalcava MD Attending Clinician +[phone] Nuno Head MD Attending Clinician +[phone] NUNO HEAD Attending Clinician Unavailabl Michele Pickard MD Attending Clinician +[phone] ANTON HERNANDEZ Attending Clinician Unavaila Anton Ma Attending Clinician [phone] NOEL KRISHNAMURTHY Attending Clinician Unavailable Raghu JARQUIN, Noel Huntley Attending Clinician +[phone] SANDRA DAVE Attending Clinician Unavailable Vadim CATALAN, Brandy Pulido Attending Clinician Dinesh Finch RN, Genevieve Harmon Attending Clinician Unavail able MARIAN CASTILLO Attending Clinician Unava teodoro Agudelo TIMBER SELECTOR, Cecile Austin Attending Clinician +- [phone] Dennis JARQUIN, Ayala Attending Clinician +[phone] Tim JARQUIN, Maggie Farrell Attending Clinician + [phone] JOSE LUIS ALBERTO Attending Clinician Unavaila sejal Alberto TIMBER SELECTOR, Jose Luis Tilley Attending Clinician +[phone] LOGAN WILKINS Attending Clinician Unavailable DEMARCUS BEAUCHAMP Attending Clinician Unavailakhil WADDELL, DUDLEY Attending Clinician Unavailakhil Waddell MD, Dudley Attending Clinician +- [phone] Bhavana JARQUIN, Blaise Attending Clinician +- [phone] Aminah JARQUIN PhD, Demetris Attending Clinician +[phone] Pob, [facility] Main Attending Clinician UnavailMICHELE Galarza Attending Clinician Unavailabl vianey Castillo DPM, Marian A Attending Clinician + ELY HESS Attending Clinician Unavailable Ely Hess MD Attending Clinician + [phone] JESSICA BENSON Attending Clinician Unavailab Jessica Leo DO Attending Clinician + [phone] Chantelle Gruber MD Attending Clinician +[phone] ALESSIO MARTINEZ Attending Clinician Unavailable SANA DE LA ROSA Attending Clinician Unavailable Visit, [facility] Dermatology Nurse Attending Clinician Unavailable Sana De La Rosa MD Attending Clinician + [phone] Tavo Bunn MD Attending Clinician +[phone] TAVO BUNN Attending Clinician Unavailable Scott Russell MD Attending Clinician + [phone], [facility] [employer] [facility] Attending Clinician Kendra yesenia Gonzalez PHD, Mary Harmon Attending Clinician + [phone] MARY GONZALEZ Attending Clinician Unavailab le [facility] Attending Clinician Unavailable RUSSELL PAEZ Attending Clinician Unavailable Mendoza CATALAN, Katie Bustos Attending Clinician Unavaila sejal Martinez PA-C, Alessio Attending Clinician + Ashwin Rowe DO Attending Clinician + [phone] Kalina Sanchez MD Attending Clinician + [phone] Ct, [facility] Rad Oncology Attending Clinician Unavail able Evens CATALAN, Sofiya Attending Clinician Unavailab priscilla Emery MD, Amparo Attending Clinician + [phone] Hdr, [facility] Rad Oncology Attending Clinician Dinesh adan 1, [facility] Rad Oncology Linac Attending Clinician Un available 4, [facility] Infusion Chair Attending Clinician Dinesh adan 2, [facility] Infusion Chair Attending Clinician Dinesh adan 3, [facility] Infusion Chair Attending Clinician Dinesh adan 6, [facility] Infusion Chair Attending Clinician Dinesh Winter MD, Sameer Fitzpatrick Attending Clinician +[phone] ANDRIA JOLLY Attending Clinician UnavailAndria Pang Attending Clinician +[phone] Graham Carter MD Attending Clinician +[phone] Nurse, [facility] Infusion Attending Clinician Unavaila sejal Physics, [facility] Rad Onc Attending Clinician Unavail able Pgy2 Attending Clinician Unavailable Luis Felipe Nolasco MD Attending Clinician + [phone] LUIS FELIPE NOLASCO Attending Clinician Unavaila Stephanie Martin Attending Clinician +[phone] Toni Rouse MD Attending Clinician +[phone] TONI ROUSE Attending Clinician Unavailable Trimester, [facility]-Rmchp Res-1st Attending Clinician Unavailable Renu Rollins MD Attending Clinician + Iain [facility] Resident Attending Clinician Unavailab Andry Mike MD Attending Clinician +[phone] ANDRY KYLE Attending Clinician Unavailable KOBI FRENCH Attending Clinician Unavail able Kimberly Billingsley DO Attending Clinician +[phone] JAD TOMPKINS Attending Clinician UnavailJad Kirkland Attending Clinician +[phone] Juan SLAUGHTER, Cydney Riley Attending Clinician +[phone] ACE VALENZUELA Admitting Clinician UnavailSCOTT Grider Admitting Clinician Unavailable KALINA SANCHEZ Admitting Clinician Unavailable ARPAN HARDING Admitting Clinician Unavailab Arpan Chiang MD Admitting Clinician +[phone] LAMONT ODEN Admitting Clinician Unavailab ART Grace Admitting Clinician Unavailable NORMAN STRATTON Admitting Clinician Unavailable TRACY GRIJALVA Admitting Clinician Unavailable Tracy Grijalva MD Admitting Clinician +[phone] SANDRA DAVE Admitting Clinician Unavailable AYALA COLLINS Admitting Clinician Unavailable Ayala Collins MD Admitting Clinician +[phone] JOSE LUIS ALBERTO Admitting Clinician Unavaila DEMARCUS Flanagan Admitting Clinician UnavailDUDLEY Mcdonnell Admitting Clinician Unavailakhil Waddell MD, Dudley Admitting Clinician +[phone] MARIAN CASTILLO Admitting Clinician Unava ilART Sanchez Admitting Clinician Unavail able ELY HESS Admitting Clinician Unavailable Ely Hess MD Admitting Clinician +[phone] CHANTELLE GRUBER Admitting Clinician Unavailable RACHEL MEDEIROS Admitting Clinician UnavailScott Grider MD Admitting Clinician +[phone] Kalina Sanchez MD Admitting Clinician +[phone] Luis Felipe Nolasco MD Admitting Clinician + [phone] Payers Payer Name Policy Type Policy Number Effective Date Expirati on Date Source HIM [facility] BLUE ADVANTAGE HMO [id number] 2023 00:00:00 2024 00:00:00 [employer] [facility] [id number] 2021 00:00:00 MEDICAID PENDING PENDING 2021 00:00:00 [employer] OUT OF NETWORK [id number] 2023 00:00:00 [facility] CASEBOOK [id number] 2021 00:00:00 2021 00:00:00 Problems Condition Name Condition Details Condition Category Status Onset Date Resolution Date Last Treatment Date Treating Clinician Comments Source Graves disease Graves disease Disease Active 2023-08 00:00: 00 [facility] Chronic heart failure with preserved ejection fraction Chronic heart failure with preserved ejection fraction Disease Active 2023-08 00:00: 00 [facility] Obesity (BMI 30-39.9) Obesity (BMI 30-39.9) Disease Active 2023-08 00:00: 00 [facility] Pulmonary hypertensi on Pulmonary hypertensi on Disease Active 2023-08 00:00: 00 [facility] Venous insufficie ncy Venous insufficie ncy Disease Active 2023-08 00:00: 00 [facility] ROSALIO (obstructi ve sleep apnea) ROSALIO (obstructi ve sleep apnea) Disease Active 2023-08 00:00: 00 [facility] Hematochez ia Hematochez ia Disease Active 2023-08 0 00:00: 00 [facility] Non-pressu re chronic ulcer of right calf with fat layer exposed Non-pressu re chronic ulcer of right calf with fat layer exposed Disease Active 906 00:00: 00 [facility] Nausea and vomiting, unspecifie d vomiting type Nausea and vomiting, unspecifie d vomiting type Disease Active 04-13 00:00: 00 [facility] Pharyngoes ophageal dysphagia Pharyngoes ophageal dysphagia Disease Active 04-13 00:00: 00 [facility] Upper abdominal pain Upper abdominal pain Disease Active 04-13 00:00: 00 [facility] Unintentio nal weight loss Unintentio nal weight loss Disease Active 04-13 00:00: 00 [facility] BRBPR (bright red blood per rectum) BRBPR (bright red blood per rectum) Disease Active 04-13 00:00: 00 [facility] Frequent bowel movements Frequent bowel movements Disease Active 8-16 00:00: 00 [facility] Epigastric pain Epigastric pain Disease Active 8-16 00:00: 00 [facility] Non-pressu re chronic ulcer of right ankle with fat layer exposed Non-pressu re chronic ulcer of right ankle with fat layer exposed Disease Active 8-15 00:00: 00 [facility] Chronic systolic congestive heart failure Chronic systolic congestive heart failure Disease Active 9-11 00:00: 00 [facility] Essential hypertensi on Essential hypertensi on Disease Active 9-11 00:00: 00 [facility] Diabetes mellitus type 2 in obese Diabetes mellitus type 2 in obese Disease Active -11 00:00: 00 [facility] Low TSH level Low TSH level Disease Active 9-11 00:00: 00 [facility] Necrotizin g fasciitis Necrotizin g fasciitis Disease Active 4-03 00:00: 00 Overview: Formattin g of this note might be different from the original. Added automatic ally from request for surgery [id number] [facility] Dehiscence of operative wound, subsequent encounter Dehiscence of operative wound, subsequent encounter Disease Active 2-15 00:00: 00 [facility] Venous stasis dermatitis of both lower extremitie s Venous stasis dermatitis of both lower extremitie s Disease Active 1-10 00:00: 00 [facility] Venous stasis dermatitis of both lower extremitie s Venous stasis dermatitis of both lower extremitie s Disease Active 1-10 00:00: 00 [facility] Wound infection Wound infection Disease Active 1-10 00:00: 00 [facility] Surgical wound breakdown, initial encounter Surgical wound breakdown, initial encounter Disease Active 1-10 00:00: 00 [facility] Edema of both lower legs Edema of both lower legs Disease Active 1-10 00:00: 00 [facility] Ganglion cyst Ganglion cyst Disease Active 2021-08 00:00: 00 Overview: Formattin g of this note might be different from the original. Added automatic ally from request for surgery [id number] [facility] Chronic radiation proctitis Chronic radiation proctitis Disease Active 2021-08 00:00: 00 [facility] Functional diarrhea Functional diarrhea Disease Active 2021-08 00:00: 00 [facility] Radiation proctitis Radiation proctitis Disease Active 2021-08 00:00: 00 [facility] Syncope, vasovagal Syncope, vasovagal Disease Active 2020-08 0-14 00:00: 00 [facility] History of claustroph obia History of claustroph obia Disease Active 30 00:00: 00 [facility] Refusal of blood transfusio ns as patient is Episcopal Refusal of blood transfusio ns as patient is Ep[employer] Disease Active 7 00:00: 00 [facility] Thyroid nodule Thyroid nodule Disease Active 02-23 00:00: 00 [facility] Physical deconditio delisa Physical deconditio delisa Disease Active 02-23 00:00: 00 [facility] 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 Disease Active 02-23 00:00: 00 [facility] DNR (do not resuscitat e) discussion DNR (do not resuscitat e) discussion Disease Active 02-23 00:00: 00 [facility] Morbid obesity with body mass index of 40.0-49.9 Morbid obesity with body mass index of 40.0-49.9 Disease Active 02-20 00:00: 00 [facility] Type 2 diabetes mellitus without complicati on, without long-term current use of insulin Type 2 diabetes mellitus without complicati on, without long-term current use of insulin Disease Active 02-19 00:00: 00 [facility] Endometria l cancer Endometria l cancer Disease Active 02-19 00:00: 00 Overview: Formattin g of this note might be different from the original. 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 [facility] Iron deficiency anemia due to chronic blood loss Iron deficiency anemia due to chronic blood loss Disease Active 02-19 00:00: 00 [facility] Hypomagnes emia Hypomagnes emia Disease Resolve d 12-05 00:00: 00 2022-12-07 00:00:00 2022-12-07 10:04:34 [facility] Lactic acidosis Lactic acidosis Disease Resolve d 12-05 00:00: 00 2022-12-07 00:00:00 2022-12-07 10:05:12 [facility] Hypokalemi a Hypokalemi a Disease Resolve d 12-05 00:00: 00 2022-12-07 00:00:00 2022-12-07 10:05:14 [facility] Acute kidney injury (nontrauma tic) Acute kidney injury (nontrauma tic) Disease Resolve d 09 00:00: 00 2022-12-07 00:00:00 2022-12-07 10:05:33 [facility] Multiple subsegment al pulmonary emboli without acute cor pulmonale Multiple subsegment al pulmonary emboli without acute cor pulmonale Disease Resolve d 7-14 00:00: 00 2022-12-07 00:00:00 2022-12-07 10:06:42 [facility] Obesity (BMI 30-39.9) Obesity (BMI 30-39.9) Disease Resolve d 02-19 00:00: 00 2022-12-07 00:00:00 2022-12-07 10:06:33 [facility] Abnormal uterine bleeding Abnormal uterine bleeding Disease Resolve d 02-19 00:00: 00 2021-07-17 00:00:00 2021-07-17 08:48:54 [facility] Allergies, Adverse Reactions, Alerts Allergy Name Allergy Type Status Severity Reaction(s) Onset Date Inactive Date Treating Clinician Comments Source IODINATE D CONTRAST MEDIA Drug Class Active High Other-Cmnt 2023-08 00:00: 00 [facility] Iodinate d Contrast Media Propensi ty to adverse reaction s to drug Active Other - See comments 2023-08 00:00: 00 Fields skin [facility] Adhesive Tape-Wilmer icones Propensi ty to adverse reaction s to drug Active Other - See comments 04-22 00:00: 00 Skin peels with plastic tape [facility] ADHESIVE TAPE-WILMER ICONES DRUG Active Med Other-Cmnt 04-22 00:00: 00 [facility] Adhesive Tape-Wilmer icones Propensi ty to adverse reaction s Active Other - See comments 04-22 00:00: 00 Skin peels with plastic tape [facility] Social History Social Habit Start Date Stop Date Quantity Comments Source Gender identity [facility] Sexual orientation [facility] History SDOH Alcohol Std Drinks [facility] History SDOH Alcohol Binge [facility] History SDOH Social Connections Get Together [facility] History SDOH Social Connections Congregational [facility] History SDOH Social Connections Membership [facility] History SDOH Social Connections Meetings [facility] Alcoholic beverage intake 2024-07-23 00:00:00 2024-07-23 00:00:00 Lifetime non-drinker (finding) [facility] Tobacco Comment 2024-07-23 00:00:00 2024-07-23 00:00:00 N/a [facility] Tobacco use and exposure 2024-07-23 00:00:00 2024-07-23 00:00:00 Smokeless tobacco non-user [facility] History of Social function 2023-12-23 00:00:00 2023-12-23 00:00:00 [facility] Alcohol intake 2023-11-03 00:00:00 2023-11-03 00:00:00 Lifetime non-drinker (finding) [facility] Exposure to SARS-CoV-2 (event) 2023-01-10 00:00:00 2023-01-20 12:53:00 Not sure [facility] History SDOH Alcohol Frequency 2022-11-30 00:00:00 2022-11-30 00:00:00 1 [facility] History SDOH Social Connections Phone 2022-11-30 00:00:00 2022-11-30 00:00:00 5 [facility] History SDOH Social Connections Living 2022-11-30 00:00:00 2022-11-30 00:00:00 7 [facility] History SDOH Physical Activity DPW 2022-11-30 00:00:00 2022-11-30 00:00:00 0 [facility] History SDOH Physical Activity MPS 2022-11-30 00:00:00 2022-11-30 00:00:00 0 [facility] History SDOH Financial 2022-11-30 00:00:00 2022-11-30 00:00:00 4 [facility] History SDOH Food Worry 2022-11-30 00:00:00 2022-11-30 00:00:00 1 [facility] History SDOH Food Scarcity 2022-11-30 00:00:00 2022-11-30 00:00:00 1 [facility] History SDOH Transport Med 2022-11-30 00:00:00 2022-11-30 00:00:00 2 [facility] History SDOH Transport Non-Med 2022-11-30 00:00:00 2022-11-30 00:00:00 2 [facility] Sex assigned at 1970 00:00:00 1970 00:00:00 [facility] Smoking Status Start Date Stop Date Source Never smoked tobacco [facility] Medications Ordered Medication Name Filled Medication Name Start Date Stop Date Current Medication? Ordering Clinician Indication Dosage Frequency Signature (SIG) Comments Components Source propranoloL (INDERAL) tablet 10 mg 2023-08 02:00: 00 07-25 23:07 :17 No 10mg 10 mg, Oral, BID, First dose (after last modificati on) on Tue07/25/24 at 2000, Until Discontinu ed, Routine [facility] proMETHazin e (PHENERGAN) 25 mg in NS 50 mL IV piggyback (CNR) 2023-08 16:13: 42 07-25 23:07 :17 No 25mg 25 mg, IV Piggyback, at 200 mL/hr Administer over 15 Minutes, Q4HPRN, Starting on Tue07/25/24 at 1013, Until Tue07/25/24 at 1707, Routine, N/V unresponsi ve to Ondansetro n [facility] spironolact one 25 mg tablet 2023-08 00:00: 00 08-25 05:59 :00 Yes [id number] 02 25mg Take 1 tablet by mouth in the morning for 30 days. [facility] furosemide 40 mg tablet 2023-08 00:00: 00 08-25 05:59 :00 Yes [id number] 40mg Take 1 tablet by mouth every morning and evening for 30 days. [facility] furosemide (LASIX) injection 40 mg 2023-08 23:00: 00 07-25 23:07 :16 No 40mg 40 mg, Slow IV Push, QAM+PM, First dose (after last reorder) on Tue07/24/24 at 1700, Until Discontinu ed, Routine [facility] methIMAzole (TAPAZOLE) tablet 30 mg 2023-08 20:00: 00 07-25 23:07 :16 No 30mg 30 mg, Oral, Q8H, First dose (after last modificati on) on Tue07/24/24 at 1400, Until Discontinu ed, Routine [facility] butalbital- acetaminoph en-caff (ESGIC) 50-325-40 mg tablet 1 tablet 2023-08 18:23: 50 07-25 23:07 :16 No 1{tbl} 1 tablet, Oral, Q4HPRN, Starting on Tue07/24/24 at 1223, Until Tue07/25/24 at 1707, Routine, Headache [facility] albuterol (PROVENTIL) 2.5 mg /3 mL (0.083 %) nebulizer solution 2.5 mg 2023-08 18:00: 00 07-25 23:07 :16 No 2.5mg 2.5 mg, Inhalation , QID, First dose on Tue07/24/24 at 1200, Until Discontinu ed, Routine [facility] ipratropium (ATROVENT) 0.02 % nebulizer solution 0.5 mg 2023-08 16:06: 32 07-25 23:07 :16 No .5mg 0.5 mg, Inhalation , Q4HPRN, Starting on Tue07/24/24 at 1006, Until Tue07/25/24 at 1707, Routine, Wheezing, Shortness of Breath [facility] empaglifloz in (JARDIANCE) tablet 10 mg 2023-08 15:30: 00 07-25 23:07 :16 No 10mg 10 mg, Oral, DAILY, First dose on Tue07/24/24 at 0930, Until Discontinu ed, Routine, Please provide rationale if you wish to continue with this order; if patient has diabetes, consult endocrinol ogy. [facility] (CYANOCOBAL [place]) tablet 1,000 mcg 2023-08 15:00: 00 07-25 23:07 :16 No 1000ug 1,000 mcg, Oral, DAILY, First dose on Tue07/24/24 at 0900, Until Discontinu ed, Routine [facility] spiron[facility]act one (ALDACTONE) tablet 25 mg 2023-08 15:00: 00 07-25 23:07 :16 No 25mg 25 mg, Oral, DAILY, First dose on Tue07/24/24 at 0900, Until Discontinu ed, [facility] pantop[facility] (PROTONIX) EC tablet 40 mg 2023-08 15:00: 00 07-25 23:07 :16 No 40mg 40 mg, Oral, DAILY, First dose on Tue07/24/24 at 0900, Until Discontinu ed [facility] foLIC acid (FOLATE) tablet 1 mg 2023-08 15:00: 00 07-25 23:07 :16 No 1mg 1 mg, Oral, DAILY, First dose on Tue07/24/24 at 0900, Until Discontinu ed, Routine [facility] sennosides- docusate sodium (SENOKOT-S) 8.6-50 mg per tablet 1 tablet 2023-08 15:00: 00 07-25 23:07 :16 No 1{tbl} 1 tablet, Oral, DAILY, First dose on Tue07/24/24 at 0900, Until Discontinu ed, Routine [facility] docusate (COLACE) capsule 100 mg 2023-08 15:00: 00 07-25 23:07 :16 No 100mg 100 mg, Oral, DAILY, First dose on Tue07/24/24 at 0900, Until Discontinu ed, Routine [facility] furosemide (LASIX) tablet 20 mg 2023-08 15:00: 00 07-24 15:20 :39 No 20mg 20 mg, Oral, DAILY, First dose on Tue07/24/24 at 0900, Until Discontinu ed, Routine [facility] morphine (2 mg/mL) injection 2 mg 2023-08 04:32: 47 07-25 04:31 :47 No 2mg 2 mg, Slow IV Push, Q4HPRN, Starting on Tue07/23/24 at 2232, Until Tue07/24/24 at 2231, Routine, Pain (scale 7-10) [facility] methIMAzole (TAPAZOLE) tablet 20 mg 2023-08 04:00: 00 07-24 18:01 :19 No 20mg 20 mg, Oral, Q8H, First dose on Tue07/23/24 at 2200, Until Discontinu ed, Routine [facility] propranoloL (INDERAL) tablet 20 mg 2023-08 02:00: 00 07-25 14:50 :42 No 20mg 20 mg, Oral, BID, First dose on Tue07/23/24 at 2000, Until Discontinu ed, [facility]ab[facility] (NEURONTIN) capsule 300 mg 2023-08 02:00: 00 07-25 23:07 :16 No 300mg 300 mg, Oral, TID, First dose on Tue07/23/24 at 2000, Until Discontinu ed, Routine [facility] Sliding Scale Insulin - Lispro (HumaLOG) 2023-08 00:00: 00 07-25 23:07 :16 No Subcutaneo us, Q6H, First dose on Tue07/23/24 at 1800, Until Discontinu ed, Routine [facility] enoxaparin (LOVENOX) injection 40 mg 2023-08 23:00: 00 07-25 23:07 :16 No 40mg 40 mg, Subcutaneo us, DAILY, First dose on Tue07/23/24 at 1700, Until Discontinu ed, Routine [facility] glucagon HCL injection 1 mg 2023-08 22:58: 20 07-25 23:07 :16 No 1mg 1 mg, Intramuscu lar, PRN, Starting on Tue07/23/24 at 1658, Until Tue07/25/24 at 1707, ARIELLA, Low blood sugar, Blood Glucose < or = 70 mg/dL and patient is NPO, unable to swallow or has mental changes. [facility] dextrose 50 % in water (D50W) injection 25 mL 2023-08 22:58: 20 07-25 23:07 :16 No 25mL 25 mL, Slow IV Push, PRN, Starting on Tue07/23/24 at 1658, Until Tue07/25/24 at 1707, ARIELLA, Blood Glucose < or = 70 mg/dL and patient is NPO, unable to swallow or has mental status changes. [facility] ondansetron (ZOFRAN (PF)) injection 4 mg 2023-08 20:20: 09 07-25 23:07 :16 No 4mg 4 mg, Slow IV Push, Q6HPRN, Starting on Tue07/23/24 at 1420, Until Tue07/25/24 at 1707, Administer over 2-5 Minutes, 2 mL [facility] HYDROcodone -acetaminop hen (NORCO 5) tablet 1 tablet 2023-08 20:19: 57 07-25 20:18 :57 No 1{tbl} 1 tablet, Oral, Q6HPRN, Starting on Tue07/23/24 at 1419, Until Tue07/25/24 at 1418, Routine, Pain (scale 4-6) [facility] acetaminoph en (TYLENOL) tablet 650 mg 2023-08 20:19: 54 07-25 23:07 :16 No 650mg 650 mg, Oral, Q6HPRN, Starting on Tue07/23/24 at 1419, Until Tue07/25/24 at 1707, Routine, Pain (scale 1-3) [facility] acetaminoph en (TYLENOL) tablet 650 mg 2023-08 19:15: 00 07-23 18:46 :00 No [id number] 650mg 650 mg, Oral, ONCE, 1 dose, On Tue07/23/24 at 1315, Routine [facility] furosemide (LASIX) injection 20 mg 2023-08 18:45: 00 07-23 18:10 :00 No [id number] 20mg 20 mg, Slow IV Push, ONCE, 1 dose, On Tue07/23/24 at 1245, ARIELLA [facility] lidocaine 1% (PF) (XYLOCAINE) injection 2023-08 17:04: 42 07-23 17:31 :31 No ONCE INTRA PROCEDURE, Starting on Tue07/23/24 at 1104, Until Tue07/23/24 at 1131, Routine, CV Intraproce dure [facility] loperamide (IMODIUM A-D) capsule 2 mg 2023-08 13:59: 18 07-25 23:07 :16 No [id number] 2mg 2 mg, Oral, Q6HPRN, Starting on Tue07/23/24 at 0759, Until Tue07/25/24 at 1707, Routine, Diarrhea [facility] potassium iodide (SSKI) 1 gram/mL solution 2023-08 00:00: 00 07-17 05:59 :00 Yes [id number] .2mL Take 0.2 mL by mouth in the morning and 0.2 mL at noon and 0.2 mL in the evening. Do all this for 5 days. [facility] empaglifloz in 10 mg tablet 2023-08 00:00: 00 Yes [id number] 02 10mg Take 1 tablet by mouth in the morning. [facility] spironolact one 25 mg tablet 2023-08 00:00: 00 07-25 00:00 :00 No [id number] 02 25mg Take 1 tablet by mouth in the morning. [facility] hydrocortis one 25 mg suppository 2023-08 00:00: 00 Yes [id number] 25mg Insert 1 Suppositor y into rectum in the morning and 1 Suppositor y in the evening. [facility] levoFLOXaci n 250 mg tablet 2023-08 00:00: 00 06-29 00:00 :00 No [id number] 250mg Take 1 tablet by mouth every 24 (twenty-fo ur) hours for 10 days. [facility] tc 99m-albumin (DRAXIMAGE MAA) injection 6.5 millicurie 2023-08 19:30: 00 06-11 19:30 :00 No [id number] 6.5mCi 6.5 millicurie , Intravenou s, ONCE, 1 dose, On Tue06/11/24 at 1430, Routine [facility] hydrocortis one 100 mg/60 mL enema 2023-08 00:00: 00 06-29 00:00 :00 No [id number] 100mg Insert 1 Enema into rectum at bedtime. [facility] gabapentin 300 mg capsule 2023-08 00:00: 00 Yes [id number] 300mg Take 1 capsule by mouth in the morning and 1 capsule at noon and 1 capsule in the evening. [facility] doxycycline monohydrate 100 mg tablet 05-28 00:00: 00 06-05 04:59 :00 No [id number] 100mg Take 1 tablet by mouth in the morning and 1 tablet in the evening. Do all this for 7 days. [facility] predniSONE 20 mg tablet 05-28 00:00: 00 06-03 04:59 :00 No [id number] 40mg Take 2 tablets by mouth in the morning for 5 days. [facility] methIMAzole 10 mg tablet 05-20 00:00: 00 Yes [id number] 20mg Take 2 tablets by mouth every 8 (eight) hours. [facility] omeprazole 40 mg capsule 04-13 00:00: 00 Yes [id number] 40mg Take 1 capsule by mouth in the morning. [facility] triamcinolo ne 0.025 % cream 04-12 00:00: 05-13 04:59 :00 No [id number] Apply to area(s) daily for 30 days. [facility] silver sulfADIAZIN E 1 % cream 03-30 00:00: 00 05-20 00:00 :00 No [id number] Apply to area(s) 2 (two) times daily. [facility] traMADoL 50 mg tablet 03-30 00:00: 00 04-07 04:59 :00 No [id number] 50mg Take 1 tablet by mouth every 6 (six) hours as needed for Pain (scale 7-10) for up to 7 days. Indication s: acute pain [facility] doxycycline hyclate 100 mg capsule 03-28 00:00: 00 05-20 00:00 :00 No [id number] 100mg Take 1 capsule by mouth in the morning and 1 capsule in the evening. [facility] mupirocin 2 % ointment 03-28 00:00: 00 05-20 00:00 :00 No [id number] Apply to area(s) 3 (three) times daily. [facility] gabapentin (NEURONTIN) 100 mg capsule 03-28 00:00: 00 05-20 00:00 :00 No [id number] 100mg Take 1 capsule by mouth in the morning and 1 capsule at noon and 1 capsule in the evening. [facility] metFORMIN 500 mg tablet 03-27 00:00: 00 Yes [id number] TAKE 2 TABLETS BY MOUTH TWICE DAILY IN THE MORNING AND IN THE EVENING WITH MEALS [facility] KCL 10 mEq tablet 03-08 00:00: 00 07-09 00:00 :00 No [id number] 10meq Take 1 tablet by mouth in the morning. [facility] ondansetron 4 mg disintegrat ing tablet 02-19 00:00: 00 Yes [id number] 4mg Take 1 tablet by mouth every 8 (eight) hours as needed for Nausea and Vomiting (N/V). [facility] furosemide 20 mg tablet 02-19 00:00: 00 07-25 00:00 :00 No [id number] Take 1 tablet by mouth every morning and afternoon [facility] perflutren protein-A microsphr (OPTISON) injection 3 mL 02-05 09:45: 00 02-05 21:35 :00 No [id number] 3mL 3 mL, IV Push, ONCE, 1 dose, On Tue02/06/24 at 0445, Routine [facility] propranoloL 20 mg tablet 12-22 00:00: 00 Yes [id number] 20mg Take 1 tablet by mouth in the morning and 1 tablet in the evening. [facility] methIMAzole 10 mg tablet 12-22 00:00: 00 05-20 00:00 :00 No [id number] 10mg Take 1 tablet by mouth every 8 (eight) hours. [facility] metFORMIN 500 mg tablet 12-22 00:00: 00 03-27 00:00 :00 No [id number] 1000mg Take 2 tablets by mouth in the morning and 2 tablets in the evening. Take with meals. [facility] furosemide 20 mg tablet 12-22 00:00: 00 02-19 00:00 :00 No [id number] 20mg Take 1 tablet by mouth in the morning. [facility] ondansetron 4 mg disintegrat ing tablet 12-22 00:00: 00 02-19 00:00 :00 No [id number] 4mg Take 1 tablet by mouth every 8 (eight) hours as needed for Nausea and Vomiting (N/V). [facility] methIMAzole 10 mg tablet 12-19 00:00: 00 12-22 00:00 :00 No [id number] 10mg Take 1 tablet by mouth every 8 (eight) hours. [facility] sodium iodide I 123 oral capsule 200 microcurie 12-04 20:30: 00 12-04 18:30 :00 No [id number] 200uCi 200 microcurie , Oral, ONCE, 1 dose, On Tue12/05/23 at 1530, Routine [facility] ONDANSETRON HCL ORAL 11-26 23:18: 43 11-26 00:00 :00 No 8mg Take 8 mg by mouth as needed for Nausea and Vomiting (N/V). [facility] foLIC acid 1 mg tablet 11-24 00:00: 00 Yes [id number] 1mg Take 1 tablet by mouth in the morning. [facility] fish oil/borage/ flax/om3,6, 9 1 (OMEGA 3-6-9 ORAL) 11-02 15:32: 12 06-29 00:00 :00 No 2{capsu le} Take 2 capsules by mouth daily. [facility] cholecalcif gayle, vitamin D3, (VITAMIN D3) 100 mcg (4,000 unit) Cap 11-02 15:32: 01 Yes 1{capsu le} Take 1 capsule by mouth daily. [facility] metFORMIN 500 mg tablet 11-02 15:03: 12-22 00:00 :00 No 1000mg Take 2 tablets by mouth in the morning and 2 tablets in the evening. Take with meals. [facility] ONDANSETRON HCL ORAL 11-02 15:03: 11-26 00:00 :00 No 8mg Take 8 mg by mouth as needed for Nausea and Vomiting (N/V). [facility] proMETHazin e 12.5 mg tablet 11-02 00:00: 00 06-29 00:00 :00 No [id number] 12.5mg Take 1 tablet by mouth every 4 (four) hours as needed for Nausea and Vomiting (N/V). [facility] TRIAMCINOLO NE 0.025 % cream 09-09 00:00: 00 11-26 00:00 :00 No APPLY CREAM TOPICALLY TO AFFECTED AREA(S) ONCE DAILY [facility] flash glucose sensor (FREESTYLE NORA 2 SENSOR) Kit 2022-08 00:00: 00 11-26 00:00 :00 No Use as directed, once a day to monitor blood glucose for ICD code E11.9 [facility] flash glucose scanning reader (FREESTYLE NORA 2 READER) [facility] 2022-08 00:00: 00 11-26 00:00 :00 No 1{each} Take 1 Each in the morning. Use as directed, once a day to monitor blood glucose for ICD code E11.9 [facility] Insulin Glargine 100 unit/mL (3 mL) injection 2022-08 00:00: 00 Yes [id number] 20U inject 20 Units under the skin in the morning. [facility] insulin lispro 100 unit/mL pen injector 2022-08 00:00: 00 Yes [id number] 5U inject 5 Units under the skin in the morning and 5 Units at noon and 5 Units in the evening. inject before meals. [facility] propranoloL 20 mg tablet 2022-08 00:00: 00 12-22 00:00 :00 No [id number] 20mg Take 1 tablet by mouth in the morning and 1 tablet in the evening. [facility] SERTraline (ZOLOFT) 50 mg tablet 2022-08 2- 00:00: 00 12-15 00:00 :00 No [id number] 50mg Take 1 tablet by mouth at bedtime. [facility] lisinopriL- hydrochloro thiazide 10-12.5 mg per tablet 2022-08 2- 00:00: 00 11-02 00:00 :00 No [id number] 1{tbl} Take 1 tablet by mouth in the morning. [facility] Insulin Glargine 100 unit/mL (3 mL) injection 2022-08 00:00: 00 11-02 00:00 :00 No [id number] 20U inject 20 Units under the skin in the morning. [facility] insulin lispro 100 unit/mL pen injector 2022-08 00:00: 00 11-02 00:00 :00 No [id number] 5U inject 5 Units under the skin in the morning and 5 Units at noon and 5 Units in the evening. inject before meals. [facility] cefTRIAXone (ROCEPHIN) injection 250 mg 2022-08 017 21:45: 00 06-14 21:30 :00 No [id number] 250mg [facility] clindamycin 300 mg capsule 2022-08 017 00:00: 00 06-25 04:59 :00 No [id number] 300mg Take 1 capsule by mouth 4 (four) times daily for 10 days. [facility] lisinopriL- hydrochloro thiazide 10-12.5 mg per tablet 9-11 00:00: 00 08-08 00:00 :00 No [id number] 1{tbl} Take 1 tablet by mouth in the morning. [facility] CHLORTHALID ONE 25 mg tablet 8-25 00:00: 00 05-09 00:00 :00 No [id number] 25mg TAKE 1 TABLET BY MOUTH IN THE MORNING [facility] dulaglutide (TRULICITY) 0.75 mg/0.5 mL PnIj 04-07 00:00: 00 05-09 00:00 :00 No [id number] .75mg inject 1 Pen under the skin weekly. [facility] metFORMIN 1,000 mg tablet 04-05 00:00: 00 08-08 00:00 :00 No [id number] 1000mg Take 1 tablet by mouth in the morning. [facility] insulin glargine 100 unit/mL injection 04-05 00:00: 00 05-09 00:00 :00 No [id number] 23U inject 23 Units under the skin in the morning. [facility] insulin lispro, human, 100 unit/mL injection 04-05 00:00: 00 05-09 00:00 :00 No [id number] 5U inject 5 Units under the skin in the morning and 5 Units at noon and 5 Units in the evening. inject with meals. [facility] cholecalcif gayle, vitamin D3, (VITAMIN D3) 100 mcg (4,000 unit) Cap 03-24 13:52: 57 Yes 1{capsu le} Take 1 capsule by mouth daily. [facility] fish oil/borage/ flax/om3,6, 9 1 (OMEGA 3-6-9 ORAL) 03-24 13:52: 57 Yes 2{capsu le} Take 2 capsules by mouth daily. [facility] doxazosin 1 mg tablet 03-03 00:00: 00 11-02 00:00 :00 No [id number] 1mg Take 1 tablet by mouth at bedtime. [facility] semaglutide (OZEMPIC) 0.25 mg or 0.5 mg(2 mg/1.5 mL) [facility] 03-03 00:00: 00 04-05 00:00 :00 No [id number] .5mg inject 0.5 mg under the skin weekly. [facility] NaCl 0.9% (NS) injection 03-02 17:55: 00 03-02 18:37 :30 No PRN, Starting on Tue03/02/23 at 1255, Until Tue03/02/23 at 1337, Routine, Intra-op [facility] simethicone (GAS RELIEF (SIMETHICON E)) 40 mg/0.6 mL drops 03-02 16:38: 00 03-02 18:37 :30 No PRN, Starting on Tue03/02/23 at 1138, Until Tue03/02/23 at 1337, Routine, Intra-op [facility] lactated ringers IV infusion 1,000 mL 03-02 16:30: 00 03-02 16:30 :00 No 1000mL at 42 mL/hr, 1,000 mL, IV Infusion, ONCE, 1 dose, On Tue03/02/23 at 1130, Routine, DSU Pre-op [facility] cholecalcif gayle, vitamin D3, (VITAMIN D3) 100 mcg (4,000 unit) Cap 03-02 16:29: 48 Yes 1{capsu le} Take 1 capsule by mouth daily. [facility] fish oil/borage/ flax/om3,6, 9 1 (OMEGA 3-6-9 ORAL) 03-02 16:29: 48 Yes 2{capsu le} Take 2 capsules by mouth daily. [facility] cholecalcif gayle, vitamin D3, (VITAMIN D3) 100 mcg (4,000 unit) Cap 02-23 12:52: 40 Yes 1{capsu le} Take 1 capsule by mouth daily. [facility] fish oil/borage/ flax/om3,6, 9 1 (OMEGA 3-6-9 ORAL) 02-23 12:52: 40 Yes 2{capsu le} Take 2 capsules by mouth daily. [facility] nystatin 100,000 unit/gram powder 02-03 00:00: 00 11-02 00:00 :00 No [id number] Apply to area(s) 2 (two) times daily. [facility] bromphenira mine-pseudo ephedrine-D M (BROMFED DM) 2-30-10 mg/5 mL syrup 01-26 00:00: 00 06-14 00:00 :00 No [id number] 5mL Take 5 mL by mouth 4 (four) times daily as needed for Congestion /Allergies or Cough. [facility] semaglutide (OZEMPIC) 0.25 mg or 0.5 mg(2 mg/1.5 mL) PnIj 01-13 00:00: 00 03-03 00:00 :00 No [id number] .25mg inject 0.25 mg under the skin weekly. [facility] albuterol (VENTOLIN HFA) 90 mcg/actuati on inhaler 01-13 00:00: 00 02-13 04:59 :00 No [id number] 2{puff} Inhale 2 Puffs every 6 (six) hours as needed for Chest tightness for up to 30 days. [facility] bromphenira mine-pseudo ephedrine-D M (BROMFED DM) 2-30-10 mg/5 mL syrup 01-13 00:00: 00 01-24 04:59 :00 No [id number] 5mL Take 5 mL by mouth 4 (four) times daily as needed for Congestion /Allergies or Cough for up to 10 days. [facility] azithromyci n 250 mg tablet 01-13 00:00: 00 01-20 04:59 :00 No [id number] 250mg Take 1 tablet by mouth in the morning for 6 days. Take 500 mg day 1, then 250 mg days 2 to 5. [facility] triamcinolo ne 0.025 % cream 01-10 00:00: 00 09-09 00:00 :00 No 1{dose} Apply 1 Dose to area(s) as needed. [facility] chlorthalid one 25 mg tablet 01-05 00:00: 00 04-22 00:00 :00 No [id number] 25mg Take 1 tablet by mouth in the morning. [facility] amoxicillin -clavulanat e 875-125 mg per tablet 12-17 00:00: 00 03-02 00:00 :00 No [id number] 1{tbl} Take 1 tablet by mouth in the morning and 1 tablet in the evening. [facility] insulin glargine 100 unit/mL injection 12-11 00:00: 00 01-13 00:00 :00 No [id number] 23U inject 23 Units under the skin in the morning. [facility] cholecalcif gayle, vitamin D3, (VITAMIN D3) 100 mcg (4,000 unit) Cap 12-10 19:16: 44 Yes 1{capsu le} Take 1 capsule by mouth daily. [facility] fish oil/borage/ flax/om3,6, 9 1 (OMEGA 3-6-9 ORAL) 12-10 19:16: 44 Yes 2{capsu le} Take 2 capsules by mouth daily. [facility] Sliding Scale Insulin - Lispro (HumaLOG) + Fsbg Testing 12-10 14:00: 00 Yes Subcutaneo us, TID MEALS+HS, First dose (after last modificati on) on Tue12/10/22 at 0900, Until Discontinu ed, Routine [facility] insulin glargine (LANTUS U-100) injection 23 Units 12-10 14:00: 00 Yes 23U 23 Units, Subcutaneo us, DAILY, First dose (after last modificati on) on Tue12/10/22 at 0900, Until Discontinu ed, Routine [facility] cholecalcif gayle, vitamin D3, (VITAMIN D3) 100 mcg (4,000 unit) Cap 12-10 10:47: 40 Yes 1{capsu le} Take 1 capsule by mouth daily. [facility] fish oil/borage/ flax/om3,6, 9 1 (OMEGA 3-6-9 ORAL) 12-10 10:47: 40 Yes 2{capsu le} Take 2 capsules [facility] mouth daily. [facility] gluc[facility] 0.5 mg/0.1 mL AtIn 12-10 00:00: 00 11-02 00:00 :00 No [id number] 1mg inject 1 mg under the skin every 15 (fifteen) minutes as needed (severe hypoglycem ia). [facility] insulin lispro, human, 100 unit/mL injection 12-10 00:00: 00 01-13 00:00 :00 No [id number] 5U inject 5 Units under the skin in the morning and 5 Units at noon and 5 Units in the evening. inject with meals. [facility] HYDROcodone -acetaminop hen 10-325 mg tablet 12-10 00:00: 00 12-18 04:59 :00 No [id number] 1{tbl} Take 1 tablet by mouth every 6 (six) hours as needed for Pain (scale 4-6) or Pain (scale 7-10) for up to 7 days. Indication s: acute pain [facility] insulin glargine (LANTUS U-100) injection 18 Units 12-09 14:00: 00 12-10 13:49 :58 No 18U 18 Units, Subcutaneo us, DAILY, First dose (after last modificati on) on Tue12/09/22 at 0900, Until Discontinu ed, Routine [facility] Sliding Scale Insulin - Lispro (HumaLOG) + Fsbg Testing 12-09 05:00: 00 12-10 13:50 :39 No Subcutaneo us, Q4H, First dose (after last modificati on) on Tue12/09/22 at 0000, Until Discontinu ed, Routine [facility] insulin lispro (human) (HumaLOG U-100) injection 6 Units 12-08 17:00: 00 12-10 13:50 :19 No 6U 6 Units, Subcutaneo us, TID MEALS, First dose (after last modificati on) on Tue12/08/22 at 1200, Until Discontinu ed, Routine [facility] insulin glargine (LANTUS U-100) injection 16 Units 12-08 14:00: 00 12-08 15:49 :35 No 16U 16 Units, Subcutaneo us, DAILY, First dose (after last modificati on) on Tue12/08/22 at 0900, Until Discontinu ed, Routine [facility] nystatin (NYSTOP) powder 12-08 03:15: 00 Yes Topical, BID, First dose on Tue12/07/22 at 2215, Until Discontinu ed, Routine [facility] HYDROcodone -acetaminop hen (NORCO) 10-325 mg tablet 1 tablet 12-07 20:55: 26 Yes 1{tbl} 1 tablet, Oral, Q6HPRN, Starting on Tue12/07/22 at 1555, Until Discontinu ed, Routine, Pain (scale 4-6), Pain (scale 7-10) [facility] Sliding Scale Insulin - Lispro (HumaLOG) + Fsbg Testing 12-07 17:00: 00 12-09 03:38 :56 No Subcutaneo us, TID MEALS+HS, First dose (after last modificati on) on Tue12/07/22 at 1200, Until Discontinu ed, Routine [facility] insulin glargine (LANTUS U-100) injection 14 Units 12-07 14:00: 00 12-07 15:09 :32 No 14U 14 Units, Subcutaneo us, DAILY, First dose (after last modificati on) on Tue12/07/22 at 0900, Until Discontinu ed, Routine [facility] insulin lispro (human) (HumaLOG U-100) injection 5 Units 12-07 13:00: 00 12-08 15:49 :35 No 5U 5 Units, Subcutaneo us, TID MEALS, First dose (after last modificati on) on Tue12/07/22 at 0800, Until Discontinu ed, Routine [facility] insulin lispro (human) (HumaLOG U-100) injection 3 Units 12-06 22:00: 00 12-07 03:59 :58 No 3U 3 Units, Subcutaneo us, TID MEALS, First dose (after last modificati on) on Tue12/06/22 at 1700, Until Discontinu ed, Routine [facility] insulin glargine (LANTUS U-100) injection 6 Units 12-06 17:15: 00 12-06 17:47 :00 No 6U 6 Units, Subcutaneo us, ONCE, 1 dose, On Tue12/06/22 at 1215, Routine [facility] insulin glargine (LANTUS U-100) injection 7 Units 12-06 14:00: 00 12-06 14:15 :09 No 7U 7 Units, Subcutaneo us, DAILY, First dose (after last modificati on) on Tue12/06/22 at 0900, Until Discontinu ed, Routine [facility] ondansetron (ZOFRAN) tablet 4 mg 12-06 12:52: 51 Yes 4mg 4 mg, Oral, Q6HPRN, Starting on Tue12/06/22 at 0752, Until Discontinu ed, Routine, Nausea and Vomiting (N/V) [facility] HYDROcodone -acetaminop hen (NORCO) 10-325 mg tablet 1 tablet 12-06 12:51: 43 12-07 20:55 :39 No 1{tbl} 1 tablet, Oral, Q6HPRN, Starting on Tue12/06/22 at 0751, Until Tue12/07/22 at 1555, Routine, Pain (scale 4-6) [facility] morpHINE (2 mg/mL) injection 2 mg 12-06 12:51: 23 12-07 20:55 :38 No 2mg 2 mg, Slow IV Push, Q4HPRN, Starting on Tue12/06/22 at 0751, Until Tue12/07/22 at 1555, Routine, Pain (scale 7-10) [facility] insulin lispro (human) (HumaLOG U-100) injection 3 Units 12-05 22:00: 00 12-06 14:15 :09 No 3U 3 Units, Subcutaneo us, TID MEALS, First dose (after last modificati on) on Tue12/05/22 at 1700, Until Discontinu ed, Routine [facility] insulin glargine (LANTUS U-100) injection 6 Units 12-05 14:00: 00 12-05 20:24 :29 No 6U 6 Units, Subcutaneo us, DAILY, First dose (after last modificati on) on Tue12/05/22 at 0900, Until Discontinu ed, Routine [facility] Sliding Scale Insulin - Lispro (HumaLOG) + Fsbg Testing 12-04 17:00: 00 12-07 15:10 :31 No Subcutaneo us, TID MEALS+HS, First dose (after last modificati on) on Tue12/04/22 at 1200, Until Discontinu ed, Routine [facility] insulin lispro (human) (HumaLOG U-100) injection 2 Units 12-03 22:00: 00 Yes 2U 2 Units, Subcutaneo us, TID MEALS, First dose (after last modificati on) on Tue12/03/22 at 1700, Until Discontinu ed, Routine [facility] piperacilli n-tazobacta m (ZOSYN) 3.375 g in NaCl 0.9% (NS) 100 mL MINI-BAG 12-03 19:38: 12 12-07 19:44 :00 No 3.375g 3.375 g, IV Piggyback, Q8H ABX, 12 doses, First dose on Tue12/03/22 at 1445, Last dose on Tue12/07/22 at 0645, Administer over 4 Hours, 100 mL
Reas on for Anti-Infec tive: Documented Infection& lt;br>Docu mented Infection Site: Skin / Soft Tissue
Duration of Therapy: 7 days [facility] NaCl 0.9% (NS) injection 10 mL 12-03 18:26: 52 Yes 10mL 10 mL, Slow IV Push, PRN, Starting on Tue12/03/22 at 1326, Until Discontinu ed, Routine, line maintenanc e [facility] lidocaine 1% (PF) (XYLOCAINE) injection 5 mL 12-03 18:26: 52 Yes 5mL 5 mL, Subcutaneo us, PRN, Starting on Tue12/03/22 at 1326, Until Discontinu ed, Routine, Local anesthesia [facility] insulin glargine (LANTUS U-100) injection 5 Units 12-03 17:15: 00 Yes 5U 5 Units, Subcutaneo us, BID, First dose on Tue12/03/22 at 1215, Until Discontinu ed, Routine [facility] Sliding Scale Insulin - Lispro (HumaLOG) + Fsbg Testing 12-03 03:00: 00 Yes Subcutaneo us, Q4H, First dose (after last modificati on) on Tue12/02/22 at 2200, Until Discontinu ed, Routine [facility] HYDROcodone -acetaminop hen (NORCO) 10-325 mg tablet 1 tablet 12-02 20:11: 56 12-06 12:53 :03 No 1{tbl} 1 tablet, Oral, Q6HPRN, Starting on Tue12/02/22 at 1511, Until Tue12/06/22 at 0753, Routine, Pain (scale 7-10) [facility] D5W 0.9% NaCl (NS) IV infusion 1,000 mL 12-02 17:30: 00 Yes 1000mL at 5 mL/hr, 1,000 mL, IV Infusion, CONTINUOUS , Starting on Tue12/02/22 at 1230, Until Discontinu ed, Routine [facility] D10W 10 % IV infusion 12-02 17:30: 00 Yes at 150 mL/hr, IV Infusion, CONTINUOUS , Starting on Tue12/02/22 at 1230, Until Discontinu ed, Routine [facility] NaCl 0.9% (NS) injection 10 mL 12-02 17:27: 04 Yes 10mL 10 mL, Slow IV Push, PRN, Starting on Tue12/02/22 at 1227, Until Discontinu ed, Routine, line maintenanc e [facility] lidocaine 1% (PF) (XYLOCAINE) injection 5 mL 12-02 17:27: 03 Yes 5mL 5 mL, Subcutaneo us, PRN, Starting on Tue12/02/22 at 1227, Until Discontinu ed, Routine, Local anesthesia [facility] ondansetron (ZOFRAN (PF)) injection 4 mg 12-02 17:26: 08 12-06 12:53 :03 No 4mg 4 mg, Slow IV Push, Q6HPRN, Nausea and Vomiting (N/V), Starting on Tue12/02/22 at 1226
Do ses of ondansetro n 16 mg and above need to be administer ed via IV piggyback. For Dose >=24mg ECG monitoring is advisable.
[facility] acetaminoph en (TYLENOL) tablet 650 mg 12-02 01:58: 43 Yes 650mg 650 mg, Oral, Q6HPRN, Starting on Tue12/01/22 at 2058, Until Discontinu ed, Routine, Pain (scale 1-3) [facility] Sliding Scale Insulin - Lispro (HumaLOG) + Fsbg Testing 12-02 01:00: 00 Yes Subcutaneo us, Q4H, First dose (after last modificati on) on Tue12/01/22 at 2000, Until Discontinu ed, Routine [facility] D10W 10 % IV infusion 12-01 23:00: 00 12-02 17:26 :41 No at 35 mL/hr, IV Infusion, CONTINUOUS , Starting on Tue12/01/22 at 1800, Until Tue12/02/22 at 1226, Routine [facility] magnesium oxide (MAG-OX 400) tablet 400 mg 12-01 21:15: 00 12-01 22:08 :00 No 400mg 400 mg, Oral, ONCE, 1 dose, On Tue12/01/22 at 1615, Routine [facility] KCL 20 mEq/15 mL solution 20 mEq 12-01 21:15: 00 12-01 21:15 :00 No 20meq 20 mEq, Oral, ONCE, 1 dose, On Tue12/01/22 at 1615, Routine [facility] D5W 0.9% NaCl (NS) IV infusion 1,000 mL 12-01 17:00: 00 12-02 17:26 :41 No 1000mL at 150 mL/hr, 1,000 mL, IV Infusion, CONTINUOUS , Starting on Tue12/01/22 at 1200, Until Tue12/02/22 at 1226, Routine [facility] lactated ringers IV infusion 500 mL 12-01 04:15: 00 12-01 04:08 :00 No 500mL at 999 mL/hr, 500 mL, Intravenou s, ONCE, 1 dose, On Tue11/30/22 at 2315, Routine [facility] acetaminoph en ADULT (OFIRMEV) injection 1,000 mg 12-01 03:00: 00 12-02 02:59 :00 No 1000mg 1,000 mg, IV Infusion, at 400 mL/hr Administer over 15 Minutes, Q8H, 3 doses, First dose (after last reorder) on Tue11/30/22 at 2200, Last dose on Tue12/01/22 at 1400, Routine
Indicatio n: Perioperat wayne Patient [facility] Sliding Scale Insulin - Lispro (HumaLOG) + Fsbg Testing 11-30 22:00: 00 Yes Subcutaneo us, TID MEALS+HS, First dose (after last modificati on) on Tue11/30/22 at 1700, Until Discontinu ed, Routine [facility] heparin (porcine) injection 7,500 Units 11-30 19:00: 00 Yes 7500U 7,500 Units, Subcutaneo us, Q8H, First dose (after last modificati on) on Tue11/30/22 at 1400, Until Discontinu ed, Routine [facility] insulin lispro (human) (HumaLOG U-100) injection 6 Units 11-30 17:00: 00 12-01 04:19 :56 No 6U 6 Units, Subcutaneo us, TID MEALS, First dose on Tue11/30/22 at 1200, Until Discontinu ed, Routine [facility] insulin glargine (LANTUS U-100) injection 25 Units 11-30 14:30: 00 Yes 25U 25 Units, Subcutaneo us, DAILY, First dose on Tue11/30/22 at 0930, Until Discontinu ed, Routine [facility] ascorbic acid (vitamin C) (VITAMIN C) tablet 500 mg 11-30 14:00: 00 Yes 500mg 500 mg, Oral, DAILY, First dose on Tue11/30/22 at 0900, Until Discontinu ed, Routine [facility] multivit-ir on-FA-calci um-mins (THERA-M) 9 mg iron-400 mcg tablet 1 tablet 11-30 14:00: 00 Yes 1{tbl} 1 tablet, Oral, DAILY, First dose on Tue11/30/22 at 0900, Until Discontinu ed, Routine [facility] lactated ringers IV infusion 1,000 mL 11-30 14:00: 00 11-30 15:21 :37 No 1000mL at 999 mL/hr, 1,000 mL, Intravenou s, ONCE, 1 dose, On Tue11/30/22 at 0900, Routine [facility] lactated ringers IV infusion 1,000 mL 11-30 13:15: 00 Yes 1000mL at 125 mL/hr, 1,000 mL, IV Infusion, CONTINUOUS , Starting on Tue11/30/22 at 0815, Until Discontinu ed, Routine [facility] psyllium husk (METAMUCIL (SUGAR FREE)) 3.4 gram oral powder packet 1 Packet 11-30 13:00: 00 Yes 1{packe t} 1 Packet, Oral, BID, First dose on Tue11/30/22 at 0800, Until Discontinu ed, Routine [facility] mupirocin (BACTROBAN OINT) 2 % skin ointment 11-30 13:00: 00 Yes [facility] zinc sulfate (ORAZINC) capsule 50 mg 11-30 13:00: 00 Yes 50mg 50 mg, Oral, TID, First dose on Tue11/30/22 at 0800, Until Discontinu ed, Routine [facility] methocarbam oL (ROBAXIN) injection 1,000 mg 11-30 11:00: 00 Yes 1000mg 1,000 mg, Intravenou s, Q8H, First dose on Tue11/30/22 at 0600, Until Discontinu ed, Routine [facility] heparin (porcine) injection 5,000 Units 11-30 11:00: 00 11-30 13:06 :08 No 5000U 5,000 Units, Subcutaneo us, Q8H, First dose on Tue11/30/22 at 0600, Until Discontinu ed, Routine [facility] clindamycin in 5 % dextrose (CLEOCIN) 900 mg/50 mL IV piggyback RTU 900 mg 11-30 10:15: 00 12-07 02:14 :00 No 900mg 900 mg, IV Piggyback, Q8H ABX, 20 doses, First dose (after last modificati on) on Tue11/30/22 at 0515, Last dose on Tue12/06/22 at 1315, Administer over 30 Minutes, 50 mL
Reas on for Anti-Infec tive: Documented Infection< br>Documen jordan Infection Site: Skin / Soft Tissue
Duration of Therapy: 7 days
Re stricted use approved by: Arielle g fasciitis, necrotizin g skin and soft tissue infection, and Lina s gangrene to block toxin production [facility] Sliding Scale Insulin-Reg ular + Fsbg Testing 11-30 07:00: 00 11-30 14:26 :28 No Subcutaneo us, Q6HA, First dose on Tue11/30/22 at 0200, Until Discontinu ed, Routine [facility] sodium hypochlorit e 0.025% (Dakin's) solution 11-30 06:50: 00 11-30 08:11 :00 No PRN, Starting on Tue11/30/22 at 0150, Until Tue11/30/22 at 0311, Routine, Intra-op [facility] sodium chloride 0.9 % irrigation solution 11-30 06:02: 00 11-30 08:11 :00 No PRN, Starting on Tue11/30/22 at 0102, Until Tue11/30/22 at 0311, Intra-op [facility] meropenem (MERREM) 1,000 mg in NaCl 0.9% (NS) 100 mL MINI-BAG 11-30 05:15: 00 12-03 19:38 :30 No 1000mg 1,000 mg, IV Piggyback, Q8H ABX, 30 doses, First dose on Tue11/30/22 at 0015, Last dose on Tue12/09/22 at 1615, Administer over 3 Hours, 100 mL
Rest ricted use approved by: [facility]
Alexander son for Anti-Infec tive: Documented Infection< br>Documen jordan Infection Site: Skin / Soft Tissue
Duration of Therapy: 7 days [facility] iron sucrose (VENOFER) 300 mg in NaCl 0.9% (NS) 250 mL infusion 11-30 05:15: 00 11-30 11:07 :59 No 300mg 300 mg, IV Infusion, ONCE, Administer over 2.5 Hours, On Tue11/30/22 at 0015, For 1 dose [facility] morpHINE 30 mg/30 mL (fixed dose) [employer] injection 11-30 04:45: 00 12-06 12:53 :03 No Patient Bolus Dose: 2 mg
Lock out Interval: 10 Minutes
Basal Rate: 0 mg/hr
F our Hour Dose Limit: 32 mg
Intr avenous, 30 mL, CONTINUOUS , Starting on Tue11/29/22 at 2345, Until Tue12/06/22 at 0753 [facility] acetaminoph en ADULT (OFIRMEV) injection 1,000 mg 11-30 04:45: 00 11-30 19:44 :00 No 1000mg 1,000 mg, IV Infusion, at 400 mL/hr Administer over 15 Minutes, Q8H, 3 doses, First dose (after last modificati on) on Tue11/29/22 at 2345, Last dose on Tue11/30/22 at 1400, Routine
Indicatio n: Perioperat [place] Patient [facility] phytonadion e (VITAMIN K) 10 mg in NaCl 0.9% (NS) piggyback 11-30 04:45: 00 11-30 10:18 :00 No 10mg IV Piggyback, ONCE, 1 dose, On Tue11/29/22 at 2345, 50 mL [facility] proMETHazin e (PHENERGAN) 12.5 mg in NS 50 mL IV piggyback (CNR) 11-30 04:38: 14 12-06 12:53 :03 No 12.5mg 12.5 mg, IV Piggyback, at 200 mL/hr Administer over 15 Minutes, Q4HPRN, Starting on Tue11/29/22 at 2338, Until Tue12/06/22 at 0753, Routine, Nausea and Vomiting (N/V) [facility] lactated ringers IV infusion 1,000 mL 11-30 04:30: 00 12-01 01:00 :00 No 1000mL at 999 mL/hr, 1,000 mL, Intravenou s, ONCE, 1 dose, On Tue11/29/22 at 2330, Routine [facility] sodium hypochlorit e 0.25% (DAKIN'S SOLUTION) solution 11-30 04:00: 00 Yes Topical, DAILY, First dose on Tue11/29/22 at 2300, Until Discontinu ed, Routine [facility] hydralAZINE (APRESOLINE ) injection 10 mg 11-30 03:53: 12 Yes 10mg 10 mg, Slow IV Push, Q6HPRN, Starting on Tue11/29/22 at 2253, Until Discontinu ed, Routine, DBP=>100; SBP=>180 [facility] pantoprazol e (PROTONIX) injection 40 mg 11-30 03:45: 00 12-03 03:44 :00 No 40mg 40 mg, Slow IV Push, Q24H, 3 doses, First dose on Tue11/29/22 at 2245, Last dose on Tue12/01/22 at 2245 [facility] morpHINE 2 mg/mL LOAD & RESCUE INJECTION SYRG 11-30 03:35: 11 Yes Slow IV Push, Routine [facility] naloxone (NARCAN) injection 0.1 mg 11-30 03:34: 48 Yes .1mg 0.1 mg, Slow IV Push, SEE-INSTRU CTIONS, Starting on Tue11/29/22 at 2234, Until Discontinu ed, Routine [facility] dextrose 10% (D10W) bolus infusion 250 mL 11-30 03:30: 11 Yes 250mL 250 mL, IV Infusion, PRN - SEE INSTRUCTIO NS, Administer over 60 Minutes, Other, If blood [...] blood glucose is < 80 mg/dL, repeat.
[facility] glucagon (GLUCAGEN DIAGNOSTIC KIT) injection 1 mg 11-30 03:30: 07 Yes 1mg 1 mg, Intramuscu lar, PRN, Starting on Tue11/29/22 at 2230, Until Discontinu ed, ARIELLA, Blood Glucose < or = 70 mg/dL and patient is NPO, unable to swallow or has mental changes. [facility] clindamycin in 5 % dextrose (CLEOCIN) 900 mg/50 mL IV piggyback RTU 900 mg 11-30 02:15: 00 11-30 04:52 :43 No 900mg 900 mg, IV Piggyback, Q8H ABX, 21 doses, First dose on Tue11/29/22 at 2115, Last dose on Tue12/06/22 at 1315, Administer over 30 Minutes, 50 mL
Reas on for Anti-Infec tive: Documented Infection& lt;br>Docu mented Infection Site: Skin / Soft Tissue
Duration of Therapy: 7 days
Re stricted use approved by: ED PROVIDER [facility] cholecalcif gayle, vitamin D3, (VITAMIN D3) 100 mcg (4,000 unit) Cap 11-29 22:35: 39 Yes 1{capsu le} Take 1 capsule by mouth daily. [facility] fish oil/borage/ flax/om3,6, 9 1 (OMEGA 3-6-9 ORAL) 11-29 22:35: 39 Yes 2{capsu le} Take 2 capsules by mouth daily. [facility] lactated ringers IV infusion 500 mL 11-29 21:30: 00 11-30 03:35 :00 No 500mL at 999 mL/hr, 500 mL, Intravenou s, ONCE, 1 dose, On Tue11/29/22 at 1630, Routine [facility] NaCl 0.9% (NS) bolus infusion 1,000 mL 11-29 21:15: 00 11-29 23:38 :00 No 1000mL at 999 mL/hr, 1,000 mL, IV Infusion, ONCE, 1 dose, On Tue11/29/22 at 1615, ARIELLA [facility] insulin regular human (HUMULIN R) injection 10 Units 11-29 21:15: 00 11-29 21:03 :00 No 10U 10 Units, Slow IV Push, ONCE, 1 dose, On Tue11/29/22 at 1615, Routine
Indicatio n for insulin: Hyperglyce adrian [facility] meropenem (MERREM) 1,000 mg in NaCl 0.9% (NS) 100 mL MINI-BAG 11-29 20:43: 00 11-29 23:38 :00 No 1000mg 1,000 mg, IV Piggyback, ONCE, 1 dose, On Tue11/29/22 at 1545, Administer over 30 Minutes, 100 mL
Rest ricted use approved by: [facility]
Alexander son for Anti-Infec tive: Documented Infection& lt;br>Docu mented Infection Site: Skin / Soft Tissue
Duration of Therapy: 7 days [facility] linezolid in dextrose 5% (ZYVOX) 600 mg/300 mL iv infusion 600 mg 11-29 20:42: 00 12-03 19:38 :30 No 600mg 600 mg, IV Infusion, Q12H ABX, 20 doses, First dose on Tue11/29/22 at 1545, Last dose on Tue12/09/22 at 0345, 300 mL
Reas on for Anti-Infec tive: Documented Infection< br>Documen jordan Infection Site: Skin / Soft Tissue
Duration of Therapy: 7 days
Re stricted use approved by: Necrotizin g fasciitis, necrotizin g skin and soft tissue infection, or Lina s gangrene [facility] piperacilli n-tazobacta m (ZOSYN) 3.375 g in NaCl 0.9% (NS) 100 mL MINI-BAG 11-29 19:30: 00 11-29 20:46 :00 No 3.375g 3.375 g, IV Piggyback, ONCE, 1 dose, On Tue11/29/22 at 1430, Administer over 30 Minutes, 100 mL
Reas on for Anti-Infec tive: Documented Infection< br>Documen jordan Infection Site: Skin / Soft Tissue
Duration of Therapy: 7 days [facility] acetaminoph en (TYLENOL) tablet 1,000 mg 11-29 18:45: 00 11-29 18:40 :00 No 1000mg 1,000 mg, Oral, ONCE, 1 dose, On Tue11/29/22 at 1345, [facility] cefTRIAXone (ROCEPHIN) 1,000 mg in NaCl 0.9% (NS) 100 mL MINI-BAG 11-29 18:30: 00 11-29 19:54 :00 No 1000mg 1,000 mg, IV Piggyback, ONCE, 1 dose, On Tue11/29/22 at 1330, Administer over 30 Minutes, 100 mL
Reas on for Anti-Infec tive: Documented Infection< br>Documen jordan Infection Site: Urine
D uration of Therapy: 7 days [facility] ondansetron (ZOFRAN (PF)) injection 4 mg 11-29 17:45: 00 11-29 17:06 :00 No 4mg 4 mg, Slow IV Push, ONCE, 1 dose, On Tue11/29/22 at 1245, [facility] NaCl 0.9% (NS) bolus infusion 1,000 mL 11-29 17:45: 00 11-29 19:54 :00 No 1000mL at 999 mL/hr, 1,000 mL, IV Infusion, ONCE, 1 dose, On Tue11/29/22 at 1245, [facility] hydrocortis one 100 mg/60 mL enema 31 00:00: 00 12-10 00:00 :00 No [id number] 100mg Insert 1 Enema into rectum at bedtime for 15 days. [facility] iopamidol (ISOVUE 370-500 mL) injection 150 mL 11-25 22:30: 00 11-25 22:06 :00 No [id number] 150mL 150 mL, Intravenou s, ONCE, 1 dose, On Diana 11/25/22 at 1730, Routine [facility] ondansetron (ZOFRAN (PF)) injection 4 mg 11-25 21:15: 00 11-25 21:14 :00 No 4mg 4 mg, Slow IV Push, ONCE, 1 dose, On Diana 11/25/22 at 1615, ARIELLA [facility] NaCl 0.9% (NS) bolus infusion 1,000 mL 11-25 21:00: 00 11-26 00:00 :00 No 1000mL at 999 mL/hr, 1,000 mL, IV Infusion, ONCE, 1 dose, On Diana 11/25/22 at 1600, ARIELLA [facility] hydrocortis one 100 mg/60 mL enema 11-25 00:00: 00 Yes [id number] 100mg Insert 1 Enema into rectum at bedtime. [facility] metFORMIN 1,000 mg tablet 11-10 00:00: 00 12-10 00:00 :00 No [id number] 1000mg Take 1 tablet by mouth in the morning. MUST BE SEEN FOR FURTHER REFILLS [facility] triamcinolo ne 0.025 % cream 10-29 00:00: 00 11-29 04:59 :00 No [id number] Apply to area(s) daily for 30 days. [facility] fish oil/borage/ flax/om3,6, 9 1 (OMEGA 3-6-9 ORAL) 24 15:38: 34 Yes 2{capsu le} Take 2 capsules by mouth daily. [facility] FUROSEMIDE 20 mg tablet 10-11 00:00: 00 03-24 00:00 :00 No [id number] Take 1 tablet by mouth once daily [facility] DOXAZOSIN 1 mg tablet 10-11 00:00: 00 03-03 00:00 :00 No [id number] 1mg TAKE 1 TABLET BY MOUTH AT BEDTIME [facility] mupirocin 2 % ointment 2-03 00:00: 00 10-16 05:59 :00 No [id number] Apply to area(s) 2 (two) times daily for 14 days. [facility] linezolid 600 mg tablet 09-27 00:00: 00 10-12 05:59 :00 No [id number] 600mg Take 1 tablet by mouth every 12 (twelve) hours for 14 days. [facility] foLIC acid 1 mg tablet 18 00:00: 00 11-24 00:00 :00 No [id number] 1mg Take 1 tablet by mouth in the morning. [facility] amoxicillin -clavulanat e 875-125 mg per tablet 1-13 00:00: 00 09-21 05:59 :00 No [id number] 1{tbl} Take 1 tablet by mouth in the morning and 1 tablet in the evening. Do all this for 10 days. [facility] triamcinolo ne 0.025 % cream - 00:00: 00 10-08 05:59 :00 No [id number] Apply to area(s) daily for 30 days. [facility] mupirocin 2 % ointment 1-04 00:00: 00 11-26 00:00 :00 No [id number] Apply to area(s) 3 (three) times daily. [facility] cephALEXin (KEFLEX) 500 mg capsule 1-04 00:00: 00 09-09 05:59 :00 No [id number] 500mg Take 1 capsule by mouth 4 (four) times daily for 7 days. [facility] methocarbam oL 500 mg tablet 2021-08 2-15 00:00: 00 08-27 05:59 :00 No [id number] 500mg Take 1 tablet by mouth 4 (four) times daily for 14 days. [facility] gabapentin 300 mg capsule 2021-08 2-15 00:00: 00 08-27 05:59 :00 No [id number] 300mg Take 1 capsule by mouth in the morning and 1 capsule at noon and 1 capsule in the evening. Do all this for 14 days. [facility] lactated ringers IV infusion 1,000 mL 2021-08 20:45: 00 Yes 1000mL at 75 mL/hr, 1,000 mL, IV Infusion, CONTINUOUS , Starting on Tue07/30/22 at 1445, Until Discontinu ed, Routine, PACU [facility] HYDROcodone -acetaminop hen (NORCO 5) 5-325 mg tablet 1 tablet 2021-08 20:45: 00 07-30 20:48 :00 No 1{tbl} 1 tablet, Oral, ONCE, 1 dose, On Tue07/30/22 at 1445, Routine, PACU [facility] FENTanyl PF (SUBLIMAZE (PF)) injection 25 mcg 2021-08 20:44: 30 Yes 25ug 25 mcg, Slow IV Push, Q5MIN PRN, 4 doses, Starting on Tue07/30/22 at 1444, Until Discontinu ed, Routine, Pain (scale 4-6), PACU [facility] HYDROmorpho ne (DILAUDID) injection 0.2 mg 2021-08 20:44: 30 Yes .2mg 0.2 mg, Slow IV Push, Q5MIN PRN, 10 doses, Starting on Tue07/30/22 at 1444, Until Discontinu ed, Routine, Pain (scale 7-10), PACU
Us e approved by (Faculty): PACU USE -ANESTHESI A SERVICE-HY DROMORPHON E INJECTIONS [facility] haloperidol lactate (HALDOL) injection 1 mg 2021-08 20:44: 30 Yes 1mg 1 mg, Intravenou s, PRN, 1 dose, Starting on Tue07/30/22 at 1444, Until Discontinu ed, Routine, Nausea and Vomiting (N/V), PACU [facility] dexmedeTOMI Dine (PRECEDEX) injection 2021-08 19:35: 00 07-30 20:01 :15 No Intravenou s, ONCE INTRA PROCEDURE, Starting on Tue07/30/22 at 1335, Until Tue07/30/22 at 1401, Routine, Intra-op [facility] acetaminoph en ADULT (OFIRMEV) injection 2021-08 19:32: 00 07-30 20:01 :15 No IV Infusion, Administer over 15 Minutes, ONCE INTRA PROCEDURE, Starting on Tue07/30/22 at 1332, Until Tue07/30/22 at 1401, Routine, Intra-op [facility] bupivacaine (preserv free) (SENSORCAIN E MPF) 0.25 % (2.5 mg/mL) injection 2021-08 19:29: 00 07-30 20:20 :36 No PRN, Starting on Tue07/30/22 at 1329, Until Tue07/30/22 at 1420, Routine, Intra-op [facility] ondansetron (ZOFRAN (PF)) injection 2021-08 19:29: 00 07-30 20:01 :15 No Slow IV Push, ONCE INTRA PROCEDURE, Starting on Tue07/30/22 at 1329, Until Tue07/30/22 at 1401, Routine, Intra-op [facility] glycopyrrol ate (ROBINUL) injection 2021-08 19:22: 00 07-30 20:01 :15 No Intravenou s, ONCE INTRA PROCEDURE, Starting on Tue07/30/22 at 1322, Until Tue07/30/22 at 1401, Routine, Intra-op [facility] ceFAZolin (ANCEF) injection 2021-08 19:14: 00 07-30 20:01 :15 No Slow IV Push, ONCE INTRA PROCEDURE, Starting on Tue07/30/22 at 1314, Until Tue07/30/22 at 1401, ARIELLA, Intra-op [facility] vasopressin (VASOSTRICT ) 20 Units/100 mL RTU vial infusion 2021-08 19:09: 00 07-30 20:01 :15 No IV Infusion, ONCE INTRA PROCEDURE, Starting on Tue07/30/22 at 1309, Until Tue07/30/22 at 1401, Routine, Intra-op [facility] propofoL IV infusion 2021-08 19:03: 00 07-30 20:01 :15 No IV Infusion, ONCE INTRA PROCEDURE, Starting on Tue07/30/22 at 1303, Until Tue07/30/22 at 1401, Routine, [facility]op [facility] FENTanyl PF (SUBLIMAZE (PF)) injection 2021-08 19:03: 00 07-30 20:01 :15 No Slow IV Push, ONCE INTRA PROCEDURE, Starting on Tue07/30/22 at 1303, Until Tue07/30/22 at 1401, Routine, Intra-op [facility] lidocaine 1% (XYLOCAINE) 100 mg/10 mL (1 %) injection 2021-08 19:00: 00 07-30 20:01 :15 No Slow IV Push, ONCE INTRA PROCEDURE, Starting on Tue07/30/22 at 1300, Until Tue07/30/22 at 1401, Routine, Intra-op [facility] lactated ringers IV infusion 2021-08 19:00: 00 07-30 20:01 :15 No IV Infusion, CONTINUOUS PRN, Starting on Tue07/30/22 at 1300, Until Tue07/30/22 at 1401, Routine, Intra-op [facility] midazolam (VERSED) injection 2021-08 19:00: 00 07-30 20:01 :15 No IV Push, ONCE INTRA PROCEDURE, Starting on Tue07/30/22 at 1300, Until Tue07/30/22 at 1401, Routine, Intra-op [facility] scopolamine transdermal (TRANSDERM- SCOP) patch 2021-08 18:41: 00 07-30 20:01 :15 No Topical, Administer over 72 Hours, ONCE INTRA PROCEDURE, Starting on Tue07/30/22 at 1241, Until Tue07/30/22 at 1401, Routine, Intra-op [facility] cholecalcif gayle, vitamin D3, (VITAMIN D3) 100 mcg (4,000 unit) Cap 2021-08 15:13: 53 Yes 1{capsu le} Take 1 capsule by mouth daily. [facility] fish oil/borage/ flax/om3,6, 9 1 (OMEGA 3-6-9 ORAL) 2021-08 15:13: 53 Yes 2{capsu le} Take 2 capsules by mouth daily. [facility] hydrocortis one (CORTIFOAM) 10 % (80 mg) foam 2021-08 00:00: 00 Yes [id number] 1{appli cator} Insert 1 Applicator into rectum at bedtime. [facility] gabapentin 100 mg capsule 2021-08 00:00: 00 08-14 05:59 :00 No [id number] 300mg Take 3 capsules by mouth in the morning and 3 capsules at noon and 3 capsules in the evening. Do all this for 14 days. [facility] methocarbam oL 750 mg tablet 2021-08 00:00: 00 08-10 05:59 :00 No [id number] 750mg Take 1 tablet by mouth in the morning and 1 tablet at noon and 1 tablet in the evening. Do all this for 10 days. [facility] traMADoL 50 mg tablet 2021-08 00:00: 00 08-07 05:59 :00 No [id number] 50mg Take 1 tablet by mouth every 6 (six) hours as needed for Pain (scale 4-6) or Pain (scale 7-10) for up to 7 days. Indication s: acute pain [facility] HYDROcodone -acetaminop hen 5-325 mg tablet 2021-08 00:00: 00 08-07 05:59 :00 No [id number] 1{tbl} Take 1 tablet by mouth every 6 (six) hours as needed for Pain (scale 4-6) or Pain (scale 7-10) for up to 7 days. Indication s: acute pain [facility] fish oil/borage/ flax/om3,6, 9 1 (OMEGA 3-6-9 ORAL) 2021-08 11:40: 31 Yes 2{capsu le} Take 2 capsules by mouth daily. [facility] ciclopirox (PENLAC) 8 % solution 2021-08 00:00: 00 11-26 00:00 :00 No [id number] Apply to area(s) at bedtime. Apply to fungal toenails once daily. Every 7 days please file toenails with nail file and apply rubbing alcohol. [facility] dicyclomine 10 mg capsule 2021-08 00:00: 00 08-09 05:59 :00 No [id number] 10mg Take 1 capsule by mouth 4 (four) times daily for 30 days. [facility] hydrocortis one 100 mg/60 mL enema 2021-08 00:00: 00 07-17 05:59 :00 No [id number] 100mg Insert 1 Enema into rectum at bedtime for 7 days. [facility] gadoteridol (PROHANCE-2 0 mL) injection 28.9 mL 2021-08 15:30: 00 07-08 15:27 :00 No [id number] .2mL/kg 28.9 mL (0.2 mL/kg ?144.5 kg), Intravenou s, ONCE, 1 dose, On Diana 07/08/22 at 0930, Routine [facility] hydrocortis one 10 % (80 mg) foam 2021-08 00:00: 00 07-30 00:00 :00 No [id number] 1{appli cator} Insert 1 Applicator into rectum at bedtime. Give 1 enema at bedtime for 10 days [facility] cholecalcif gayle, vitamin D3, (VITAMIN D3) 100 mcg (4,000 unit) Cap 2021-08 20:14: 22 Yes 1{capsu le} Take 1 capsule by mouth daily. [facility] fish oil/borage/ flax/om3,6, 9 1 (OMEGA 3-6-9 ORAL) 2021-08 20:14: 22 Yes 2{capsu le} Take 2 capsules by mouth daily. [facility] cholecalcif gayle, vitamin D3, (VITAMIN D3) 100 mcg (4,000 unit) Cap 2021-08 14:18: 17 Yes 1{capsu le} Take 1 capsule by mouth daily. [facility] fish oil/borage/ flax/om3,6, 9 1 (OMEGA 3-6-9 ORAL) 2021-08 14:18: 17 Yes 2{capsu le} Take 2 capsules by mouth daily. [facility] clindamycin 300 mg capsule 2021-08 00:00: 00 07-12 05:59 :00 No [id number] 300mg Take 1 capsule by mouth 4 (four) times daily for 10 days. [facility] lactated ringers IV infusion 1,000 mL 2021-08 14:45: 00 Yes 1000mL at 100 mL/hr, 1,000 mL, IV Infusion, CONTINUOUS , Starting on Tue06/08/22 at 0945, Until Discontinu ed, Routine, PACU [facility] ondansetron (ZOFRAN (PF)) injection 4 mg 2021-08 14:37: 08 06-08 14:44 :00 No 4mg 4 mg, Slow IV Push, PRN, 1 dose, Starting on Tue06/08/22 at 0937, Until Tue06/08/22 at 0944, Routine, Nausea and Vomiting (N/V), PACU [facility] water for irrigation irrigation solution 2021-08 13:50: 00 06-08 15:07 :53 No PRN, Starting on Tue06/08/22 at 0850, Until Tue06/08/22 at 1007, Routine, Intra-op [facility] simethicone (GAS RELIEF (SIMETHICON E)) 40 mg/0.6 mL drops 2021-08 13:50: 00 06-08 15:07 :53 No PRN, Starting on Tue06/08/22 at 0850, Until Tue06/08/22 at 1007, Routine, Intra-op [facility] lactated ringers IV infusion 1,000 mL 2021-08 12:30: 00 06-08 12:34 :00 No 1000mL at 42 mL/hr, 1,000 mL, IV Infusion, ONCE, 1 dose, On Tue06/08/22 at 0730, Routine, DSU Pre-op [facility] cholecalcif gayle, vitamin D3, (VITAMIN D3) 100 mcg (4,000 unit) [facility] 2021-08 11:18: 19 Yes 1{capsu le} Take 1 capsule by mouth daily. [facility] fish oil/borage/ flax/om3,6, 9 1 (OMEGA 3-6-9 ORAL) 2021-08 11:18: 19 Yes 2{capsu le} Take 2 capsules by mouth daily. [facility] hydrocortis one (ANUSOL-HC) 25 mg suppository 2021-08 00:00: 00 06-23 04:59 :00 No [id number] 25mg Insert 1 Suppositor y into rectum in the morning and 1 Suppositor y in the evening. Do all this for 14 days. [facility] cholecalcif gayle, vitamin D3, (VITAMIN D3) 100 mcg (4,000 unit) [facility] 2021-08 0 10:36: 07 Yes 1{capsu le} Take 1 capsule by mouth daily. [facility] fish oil/borage/ flax/om3,6, 9 1 (OMEGA 3-6-9 ORAL) 2021-08 0 10:36: 07 Yes 2{capsu le} Take 2 capsules by mouth daily. [facility] chlorthalid one 25 mg tablet 2021-08 0 00:00: 00 01-05 00:00 :00 No [id number] 25mg Take 1 tablet by mouth in the morning. [facility] sodium,pota ssium,mag sulfates 17.5-3.13-1 .6 gram 2021-08 0-06 00:00: 00 06-04 04:59 :00 No [id number] 117mL Take 117 mL by mouth once now for 1 dose. Take as directed for colonoscop y [facility] metFORMIN 1,000 mg tablet 9-13 00:00: 00 11-10 00:00 :00 No [id number] 1000mg Take 1 tablet by mouth in the morning. [facility] metFORMIN 1,000 mg tablet -22 00:00: 00 05-11 00:00 :00 No [id number] 1000mg Take 1 tablet by mouth daily. [facility] Estradiol (YUVAFEM) 10 mcg tablet 5-19 00:00: 00 08-18 00:00 :00 No [id number] 10ug Insert 1 tablet into vagina 2 (two) times per week. [facility] furosemide 20 mg tablet 10-26 00:00: 00 10-11 00:00 :00 No [id number] 20mg Take 1 tablet by mouth daily. [facility] doxazosin 1 mg tablet 10-26 00:00: 00 10-11 00:00 :00 No [id number] 1mg Take 1 tablet by mouth at bedtime. [facility] vitamin B-12 (VITAMIN B-12) 1,000 mcg tablet 09-18 00:00: 00 Yes [id number] 1000ug Take 1 tablet by mouth daily. [facility] foLIC acid 1 mg tablet 09-18 00:00: 00 09-15 00:00 :00 No [id number] 1mg Take 1 tablet by mouth daily. [facility] ferrous gluconate 324 mg (38 mg iron) tablet 09-18 00:00: 00 07-30 00:00 :00 No [id number] 100 324mg Take 1 tablet by mouth daily with breakfast. [facility] chlorthalid one 25 mg tablet 09-18 00:00: 00 06-01 00:00 :00 No [id number] 25mg Take 1 tablet by mouth daily. [facility] Immunizations Ordered Immunization Name Filled Immunization Name Date Status Comments Source Influenza Virus Vaccine Quad IM, Preserv and ABX Free 6 MO-64 YRS (FLUCELVAX) 2023-06-14 00:00:00 Completed [facility] Influenza Virus Vaccine Quad IM, Preserv and ABX Free 6 MO-64 YRS (FLUCELVAX) 2023-06-14 00:00:00 Completed [facility] Influenza Virus Vaccine Quad IM, Preserv and ABX Free 6 MO-64 YRS (FLUCELVAX) 2023-06-14 00:00:00 Completed [facility] Influenza Virus Vaccine Quad IM, Preserv and ABX Free 6 MO-64 YRS (FLUCELVAX) 2023-06-14 00:00:00 Completed [facility] Influenza Virus Vaccine Quad IM, Preserv and ABX Free 6 MO-64 YRS (FLUCELVAX) 2023-06-14 00:00:00 Completed [facility] Influenza Virus Vaccine Quad IM, Preserv and ABX Free 6 MO-64 YRS (FLUCELVAX) 2023-06-14 00:00:00 Completed [facility] Influenza Virus Vaccine Quad IM, Preserv and ABX Free 6 MO-64 YRS (FLUCELVAX) 2023-06-14 00:00:00 Completed [facility] Influenza Virus Vaccine Quad IM, Preserv and ABX Free 6 MO-64 YRS (FLUCELVAX) 2023-06-14 00:00:00 Completed [facility] Influenza Virus Vaccine Quad IM, Preserv and ABX Free 6 MO-64 YRS (FLUCELVAX) 2023-06-14 00:00:00 Completed [facility] SARS-COV-2 COVID-19 VACCINE, BIVALENT (MODERNA BOOSTER) 2022-05-14 00:00:00 Completed [facility] SARS-COV-2 COVID-19 VACCINE, BIVALENT (MODERNA BOOSTER) 2022-05-14 00:00:00 Completed [facility] SARS-COV-2 COVID-19 VACCINE, BIVALENT (MODERNA BOOSTER) 2022-05-14 00:00:00 Completed [facility] SARS-COV-2 COVID-19 VACCINE, BIVALENT (MODERNA BOOSTER) 2022-05-14 00:00:00 Completed [facility] SARS-COV-2 COVID-19 VACCINE, BIVALENT (MODERNA BOOSTER) 2022-05-14 00:00:00 Completed [facility] SARS-COV-2 COVID-19 VACCINE, BIVALENT (MODERNA BOOSTER) 2022-05-14 00:00:00 Completed [facility] SARS-COV-2 COVID-19 VACCINE, BIVALENT (MODERNA BOOSTER) 2022-05-14 00:00:00 Completed [facility] SARS-COV-2 COVID-19 VACCINE, BIVALENT (MODERNA BOOSTER) 2022-05-14 00:00:00 Completed [facility] SARS-COV-2 COVID-19 VACCINE, BIVALENT (MODERNA BOOSTER) 2022-05-14 00:00:00 Completed [facility] SARS-COV-2 COVID-19 VACCINE, BIVALENT (MODERNA BOOSTER) 2022-05-14 00:00:00 Completed [facility] SARS-COV-2 COVID-19 VACCINE, BIVALENT (MODERNA BOOSTER) 2022-05-14 00:00:00 Completed [facility] SARS-COV-2 COVID-19 VACCINE, BIVALENT (MODERNA BOOSTER) 2022-05-14 00:00:00 Completed [facility] SARS-COV-2 COVID-19 VACCINE, BIVALENT (MODERNA BOOSTER) 2022-05-14 00:00:00 Completed [facility] SARS-COV-2 COVID-19 VACCINE, BIVALENT (MODERNA BOOSTER) 2022-05-14 00:00:00 Completed [facility] SARS-COV-2 COVID-19 VACCINE, BIVALENT (MODERNA BOOSTER) 2022-05-14 00:00:00 Completed [facility] SARS-COV-2 COVID-19 VACCINE, BIVALENT (MODERNA BOOSTER) 2022-05-14 00:00:00 Completed [facility] SARS-COV-2 COVID-19 VACCINE, BIVALENT (MODERNA BOOSTER) 2022-05-14 00:00:00 Completed [facility] SARS-COV-2 COVID-19 VACCINE, BIVALENT (MODERNA BOOSTER) 2022-05-14 00:00:00 Completed [facility] SARS-COV-2 COVID-19 VACCINE, BIVALENT (MODERNA BOOSTER) 2022-05-14 00:00:00 Completed [facility] SARS-COV-2 COVID-19 VACCINE, BIVALENT (MODERNA BOOSTER) 2022-05-14 00:00:00 Completed [facility] SARS-COV-2 COVID-19 VACCINE, BIVALENT (MODERNA BOOSTER) 2022-05-14 00:00:00 Completed [facility] SARS-COV-2 COVID-19 VACCINE, BIVALENT (MODERNA BOOSTER) 2022-05-14 00:00:00 Completed [facility] SARS-COV-2 COVID-19 VACCINE, BIVALENT (MODERNA BOOSTER) 2022-05-14 00:00:00 Completed [facility] SARS-COV-2 COVID-19 VACCINE, BIVALENT (MODERNA BOOSTER) 2022-05-14 00:00:00 Completed [facility] SARS-COV-2 COVID-19 VACCINE, BIVALENT (MODERNA BOOSTER) 2022-05-14 00:00:00 Completed [facility] SARS-COV-2 COVID-19 VACCINE, BIVALENT (MODERNA BOOSTER) 2022-05-14 00:00:00 Completed [facility] SARS-COV-2 COVID-19 VACCINE, BIVALENT (MODERNA BOOSTER) 2022-05-14 00:00:00 Completed [facility] SARS-COV-2 COVID-19 VACCINE, BIVALENT (MODERNA BOOSTER) 2022-05-14 00:00:00 Completed [facility] SARS-COV-2 COVID-19 VACCINE, BIVALENT (MODERNA BOOSTER) 2022-05-14 00:00:00 Completed [facility] SARS-COV-2 COVID-19 VACCINE, BIVALENT (MODERNA BOOSTER) 2022-05-14 00:00:00 Completed [facility] SARS-COV-2 COVID-19 VACCINE, BIVALENT (MODERNA BOOSTER) 2022-05-14 00:00:00 Completed [facility] SARS-COV-2 COVID-19 VACCINE, BIVALENT (MODERNA BOOSTER) 2022-05-14 00:00:00 Completed [facility] SARS-COV-2 COVID-19 VACCINE, BIVALENT (MODERNA BOOSTER) 2022-05-14 00:00:00 Completed [facility] SARS-COV-2 COVID-19 VACCINE, BIVALENT (MODERNA BOOSTER) 2022-05-14 00:00:00 Completed [facility] SARS-COV-2 COVID-19 VACCINE, BIVALENT (MODERNA BOOSTER) 2022-05-14 00:00:00 Completed [facility] SARS-COV-2 COVID-19 VACCINE, BIVALENT (MODERNA BOOSTER) 2022-05-14 00:00:00 Completed [facility] SARS-COV-2 COVID-19 VACCINE, BIVALENT (MODERNA BOOSTER) 2022-05-14 00:00:00 Completed [facility] SARS-COV-2 COVID-19 VACCINE, BIVALENT (MODERNA BOOSTER) 2022-05-14 00:00:00 Completed [facility] SARS-COV-2 COVID-19 VACCINE, BIVALENT (MODERNA BOOSTER) 2022-05-14 00:00:00 Completed [facility] SARS-COV-2 COVID-19 VACCINE, BIVALENT (MODERNA BOOSTER) 2022-05-14 00:00:00 Completed [facility] SARS-COV-2 COVID-19 VACCINE, BIVALENT (MODERNA BOOSTER) 2022-05-14 00:00:00 Completed [facility] SARS-COV-2 COVID-19 VACCINE, BIVALENT (MODERNA BOOSTER) 2022-05-14 00:00:00 Completed [facility] SARS-COV-2 COVID-19 VACCINE, BIVALENT (MODERNA BOOSTER) 2022-05-14 00:00:00 Completed [facility] SARS-COV-2 COVID-19 VACCINE, BIVALENT (MODERNA BOOSTER) 2022-05-14 00:00:00 Completed [facility] SARS-COV-2 COVID-19 VACCINE, BIVALENT (MODERNA BOOSTER) 2022-05-14 00:00:00 Completed [facility] SARS-COV-2 COVID-19 VACCINE, BIVALENT (MODERNA BOOSTER) 2022-05-14 00:00:00 Completed [facility] SARS-COV-2 COVID-19 VACCINE, BIVALENT (MODERNA BOOSTER) 2022-05-14 00:00:00 Completed [facility] SARS-COV-2 COVID-19 VACCINE, BIVALENT (MODERNA BOOSTER) 2022-05-14 00:00:00 Completed [facility] SARS-COV-2 COVID-19 VACCINE, BIVALENT (MODERNA BOOSTER) 2022-05-14 00:00:00 Completed [facility] SARS-COV-2 COVID-19 VACCINE, BIVALENT (MODERNA BOOSTER) 2022-05-14 00:00:00 Completed [facility] SARS-COV-2 COVID-19 VACCINE, BIVALENT (MODERNA BOOSTER) 2022-05-14 00:00:00 Completed [facility] SARS-COV-2 COVID-19 VACCINE, BIVALENT (MODERNA BOOSTER) 2022-05-14 00:00:00 Completed [facility] SARS-COV-2 COVID-19 VACCINE, BIVALENT (MODERNA BOOSTER) 2022-05-14 00:00:00 Completed [facility] SARS-COV-2 COVID-19 VACCINE, BIVALENT (MODERNA BOOSTER) 2022-05-14 00:00:00 Completed [facility] SARS-COV-2 COVID-19 VACCINE, BIVALENT (MODERNA BOOSTER) 2022-05-14 00:00:00 Completed [facility] SARS-COV-2 COVID-19 VACCINE, BIVALENT (MODERNA BOOSTER) 2022-05-14 00:00:00 Completed [facility] SARS-COV-2 COVID-19 VACCINE, BIVALENT (MODERNA BOOSTER) 2022-05-14 00:00:00 Completed [facility] SARS-COV-2 COVID-19 VACCINE, BIVALENT (MODERNA BOOSTER) 2022-05-14 00:00:00 Completed [facility] SARS-COV-2 COVID-19 VACCINE, BIVALENT (MODERNA BOOSTER) 2022-05-14 00:00:00 Completed [facility] SARS-COV-2 COVID-19 VACCINE, BIVALENT (MODERNA BOOSTER) 2022-05-14 00:00:00 Completed [facility] SARS-COV-2 COVID-19 VACCINE, BIVALENT (MODERNA BOOSTER) 2022-05-14 00:00:00 Completed [facility] SARS-COV-2 COVID-19 VACCINE, BIVALENT (MODERNA BOOSTER) 2022-05-14 00:00:00 Completed [facility] SARS-COV-2 COVID-19 VACCINE, BIVALENT (MODERNA BOOSTER) 2022-05-14 00:00:00 Completed [facility] Influenza Virus Vaccine Quad IM, Preserv and ABX Free 6 MO-64 YRS 2022-05-11 00:00:00 Completed [facility] Pneumococcal 20 Conjugate, PCV20 (Prevnar 20) 2022-05-11 00:00:00 Completed [facility] TDAP 2022-05-11 00:00:00 Completed [facility] Influenza Virus Vaccine Quad IM, Preserv and ABX Free 6 MO-64 YRS 2022-05-11 00:00:00 Completed [facility] Pneumococcal 20 Conjugate, PCV20 (Prevnar 20) 2022-05-11 00:00:00 Completed [facility] TDAP 2022-05-11 00:00:00 Completed [facility] Influenza Virus Vaccine Quad IM, Preserv and ABX Free 6 MO-64 YRS 2022-05-11 00:00:00 Completed [facility] Pneumococcal 20 Conjugate, PCV20 (Prevnar 20) 2022-05-11 00:00:00 Completed [facility] TDAP 2022-05-11 00:00:00 Completed [facility] Influenza Virus Vaccine Quad IM, Preserv and ABX Free 6 MO-64 YRS 2022-05-11 00:00:00 Completed [facility] Pneumococcal 20 Conjugate, PCV20 (Prevnar 20) [facility]22[facility]05-11 [facility] Influenza Virus Vaccine Quad IM, Preserv and ABX Free 6 MO-64 YRS 2022-05-11 00:00:00 Completed [facility] Pneumococcal 20 Conjugate, PCV20 (Prevnar 20) 2022-05-11 00:00:00 Completed [facility] TDAP 2022-05-11 00:00:00 Completed [facility] Influenza Virus Vaccine Quad IM, Preserv and ABX Free 6 MO-64 YRS 2022-05-11 00:00:00 Completed [facility] Pneumococcal 20 Conjugate, PCV20 (Prevnar 20) 2022-05-11 00:00:00 Completed [facility] TDAP 2022-05-11 00:00:00 Completed [facility] Influenza Virus Vaccine Quad IM, Preserv and ABX Free 6 MO-64 YRS 2022-05-11 00:00:00 Completed [facility] Pneumococcal 20 Conjugate, PCV20 (Prevnar 20) 2022-05-11 00:00:00 Completed [facility] TDAP 2022-05-11 00:00:00 Completed [facility] Influenza Virus Vaccine Quad IM, Preserv and ABX Free 6 MO-64 YRS 2022-05-11 00:00:00 Completed [facility] Pneumococcal 20 Conjugate, PCV20 (Prevnar 20) 2022-05-11 00:00:00 Completed [facility] TDAP 2022-05-11 00:00:00 Completed [facility] Influenza Virus Vaccine Quad IM, Preserv and ABX Free 6 MO-64 YRS 2022-05-11 00:00:00 Completed [facility] Pneumococcal 20 Conjugate, PCV20 (Prevnar 20) 2022-05-11 00:00:00 Completed [facility] TDAP 2022-05-11 00:00:00 Completed [facility] Influenza Virus Vaccine Quad IM, Preserv and ABX Free 6 MO-64 YRS 2022-05-11 00:00:00 Completed [facility] Pneumococcal 20 Conjugate, PCV20 (Prevnar 20) 2022-05-11 00:00:00 Completed [facility] TDAP 2022-05-11 00:00:00 Completed [facility] Influenza Virus Vaccine Quad IM, Preserv and ABX Free 6 MO-64 YRS 2022-05-11 00:00:00 Completed [facility] Pneumococcal 20 Conjugate, PCV20 (Prevnar 20) 2022-05-11 00:00:00 Completed [facility] TDAP 2022-05-11 00:00:00 Completed [facility] Influenza Virus Vaccine Quad IM, Preserv and ABX Free 6 MO-64 YRS 2022-05-11 00:00:00 Completed [facility] Pneumococcal 20 Conjugate, PCV20 (Prevnar 20) 2022-05-11 00:00:00 Completed [facility] TDAP 2022-05-11 00:00:00 Completed [facility] Influenza Virus Vaccine Quad IM, Preserv and ABX Free 6 MO-64 YRS 2022-05-11 00:00:00 Completed [facility] Pneumococcal 20 Conjugate, PCV20 (Prevnar 20) 2022-05-11 00:00:00 Completed [facility] TDAP 2022-05-11 00:00:00 Completed [facility] Influenza Virus Vaccine Quad IM, Preserv and ABX Free 6 MO-64 YRS 2022-05-11 00:00:00 Completed [facility] Pneumococcal 20 Conjugate, PCV20 (Prevnar 20) 2022-05-11 00:00:00 Completed [facility] TDAP 2022-05-11 00:00:00 Completed [facility] Influenza Virus Vaccine Quad IM, Preserv and ABX Free 6 MO-64 YRS 2022-05-11 00:00:00 Completed [facility] Pneumococcal 20 Conjugate, PCV20 (Prevnar 20) 2022-05-11 00:00:00 Completed [facility] TDAP 2022-05-11 00:00:00 Completed [facility] Influenza Virus Vaccine Quad IM, Preserv and ABX Free 6 MO-64 YRS 2022-05-11 00:00:00 Completed [facility] Pneumococcal 20 Conjugate, PCV20 (Prevnar 20) 2022-05-11 00:00:00 Completed [facility] TDAP 2022-05-11 00:00:00 Completed [facility] Influenza Virus Vaccine Quad IM, Preserv and ABX Free 6 MO-64 YRS 2022-05-11 00:00:00 Completed [facility] Pneumococcal 20 Conjugate, PCV20 (Prevnar 20) 2022-05-11 00:00:00 Completed [facility] TDAP 2022-05-11 00:00:00 Completed [facility] Influenza Virus Vaccine Quad IM, Preserv and ABX Free 6 MO-64 YRS 2022-05-11 00:00:00 Completed [facility] Pneumococcal 20 Conjugate, PCV20 (Prevnar 20) 2022-05-11 00:00:00 Completed [facility] TDAP 2022-05-11 00:00:00 Completed [facility] Influenza Virus Vaccine Quad IM, Preserv and ABX Free 6 MO-64 YRS 2022-05-11 00:00:00 Completed [facility] Pneumococcal 20 Conjugate, PCV20 (Prevnar 20) 2022-05-11 00:00:00 Completed [facility] TDAP 2022-05-11 00:00:00 Completed [facility] Influenza Virus Vaccine Quad IM, Preserv and ABX Free 6 MO-64 YRS 2022-05-11 00:00:00 Completed [facility] Pneumococcal 20 Conjugate, PCV20 (Prevnar 20) 2022-05-11 00:00:00 Completed [facility] TDAP 2022-05-11 00:00:00 Completed [facility] Influenza Virus Vaccine Quad IM, Preserv and ABX Free 6 MO-64 YRS 2022-05-11 00:00:00 Completed [facility] Pneumococcal 20 Conjugate, PCV20 (Prevnar 20) 2022-05-11 00:00:00 Completed [facility] TDAP 2022-05-11 00:00:00 Completed [facility] Influenza Virus Vaccine Quad IM, Preserv and ABX Free 6 MO-64 YRS 2022-05-11 00:00:00 Completed [facility] Pneumococcal 20 Conjugate, PCV20 (Prevnar 20) 2022-05-11 00:00:00 Completed [facility] TDAP 2022-05-11 00:00:00 Completed [facility] Influenza Virus Vaccine Quad IM, Preserv and ABX Free 6 MO-64 YRS 2022-05-11 00:00:00 Completed [facility] Pneumococcal 20 Conjugate, PCV20 (Prevnar 20) 2022-05-11 00:00:00 Completed [facility] TDAP 2022-05-11 00:00:00 Completed [facility] Influenza Virus Vaccine Quad IM, Preserv and ABX Free 6 MO-64 YRS (FLUCELVAX) 2022-05-11 00:00:00 Completed [facility] Pneumococcal 20 Conjugate, PCV20 (Prevnar 20) 2022-05-11 00:00:00 Completed [facility] TDAP 2022-05-11 00:00:00 Completed [facility] Influenza Virus Vaccine Quad IM, Preserv and ABX Free 6 MO-64 YRS (FLUCELVAX) 2022-05-11 00:00:00 Completed [facility] Pneumococcal 20 Conjugate, PCV20 (Prevnar 20) 2022-05-11 00:00:00 Completed [facility] TDAP 2022-05-11 00:00:00 Completed [facility] Influenza Virus Vaccine Quad IM, Preserv and ABX Free 6 MO-64 YRS (FLUCELVAX) 2022-05-11 00:00:00 Completed [facility] Pneumococcal 20 Conjugate, PCV20 (Prevnar 20) 2022-05-11 00:00:00 Completed [facility] TDAP 2022-05-11 00:00:00 Completed [facility] Influenza Virus Vaccine Quad IM, Preserv and ABX Free 6 MO-64 YRS (FLUCELVAX) 2022-05-11 00:00:00 Completed [facility] Pneumococcal 20 Conjugate, PCV20 (Prevnar 20) 2022-05-11 00:00:00 Completed [facility] TDAP 2022-05-11 00:00:00 Completed [facility] Influenza Virus Vaccine Quad IM, Preserv and ABX Free 6 MO-64 YRS (FLUCELVAX) 2022-05-11 00:00:00 Completed [facility] Pneumococcal 20 Conjugate, PCV20 (Prevnar 20) 2022-05-11 00:00:00 Completed TDAP 2022-05-11 00:00:00 Completed Influenza Virus Vaccine Quad IM, Preserv and ABX Free 6 MO-64 YRS (FLUCELVAX) 2022-05-11 00:00:00 Completed [facility] Pneumococcal 20 Conjugate, PCV20 (Prevnar 20) 2022-05-11 00:00:00 Completed [facility]AP 2022-05-11 00:00:00 Completed Influenza Virus Vaccine Quad IM, Preserv and ABX Free 6 MO-64 YRS (FLUCELVAX) 2022-05-11 00:00:00 Completed [facility] Pneumococcal 20 Conjugate, PCV20 (Prevnar 20) 2022-05-11 00:00:00 Completed [facility]AP 2022-05-11 00:00:00 Completed Influenza Virus Vaccine Quad IM, Preserv and ABX Free 6 MO-64 YRS (FLUCELVAX) 2022-05-11 00:00:00 Completed [facility] Pneumococcal 20 Conjugate, PCV20 (Prevnar 20) 2022-05-11 00:00:00 Completed [facility] 2022-05-11 00:00:00 Completed Influenza Virus Vaccine Quad IM, Preserv and ABX Free 6 MO-64 YRS (FLUCELVAX) 2022-05-11 00:00:00 Completed [facility] Pneumococcal 20 Conjugate, PCV20 (Prevnar 20) 2022-05-11 00:00:00 Completed [facility] 2022-05-11 00:00:00 Completed Influenza Virus Vaccine Quad IM, Preserv and ABX Free 6 MO-64 YRS (FLUCELVAX) 2022-05-11 00:00:00 Completed [facility] Pneumococcal 20 Conjugate, PCV20 (Prevnar 20) 2022-05-11 00:00:[address] [facility] 2022-05-11 00:00:00 Completed Influenza Virus Vaccine Quad IM, Preserv and ABX Free 6 MO-64 YRS (FLUCELVAX) 2022-05-11 00:00:00 Completed [facility] Pneumococcal 20 Conjugate, PCV20 (Prevnar 20) 2022-05-11 00:00:[address] [facility] 2022-05-11 00:00:00 Completed Influenza Virus Vaccine Quad IM, Preserv and ABX Free 6 MO-64 YRS 2022-05-11 00:00:00 Completed [facility] Pneumococcal 20 Conjugate, PCV20 (Prevnar 20) 2022-05-11 00:00:00 Completed [facility] TDAP 2022-05-11 00:00:00 Completed [facility] Influenza Virus Vaccine Quad IM, Preserv and ABX Free 6 MO-64 YRS 2022-05-11 00:00:00 Completed [facility] Pneumococcal 20 Conjugate, PCV20 (Prevnar 20) 2022-05-11 00:00:00 Completed [facility] TDAP 2022-05-11 00:00:00 Completed [facility] Influenza Virus Vaccine Quad IM, Preserv and ABX Free 6 MO-64 YRS 2022-05-11 00:00:00 Completed [facility] Pneumococcal 20 Conjugate, PCV20 (Prevnar 20) 2022-05-11 00:00:00 Completed [facility] TDAP 2022-05-11 00:00:00 Completed [facility] Influenza Virus Vaccine Quad IM, Preserv and ABX Free 6 MO-64 YRS 2022-05-11 00:00:00 Completed [facility] Pneumococcal 20 Conjugate, PCV20 (Prevnar 20) 2022-05-11 00:00:00 Completed [facility] TDAP 2022-05-11 00:00:00 Completed [facility] Influenza Virus Vaccine Quad IM, Preserv and ABX Free 6 MO-64 YRS 2022-05-11 00:00:00 Completed [facility] Pneumococcal 20 Conjugate, PCV20 (Prevnar 20) 2022-05-11 00:00:00 Completed [facility] TDAP 2022-05-11 00:00:00 Completed [facility] Influenza Virus Vaccine Quad IM, Preserv and ABX Free 6 MO-64 YRS 2022-05-11 00:00:00 Completed [facility] Pneumococcal 20 Conjugate, PCV20 (Prevnar 20) 2022-05-11 00:00:00 Completed [facility] TDAP 2022-05-11 00:00:00 Completed [facility] Influenza Virus Vaccine Quad IM, Preserv and ABX Free 6 MO-64 YRS 2022-05-11 00:00:00 Completed [facility] Pneumococcal 20 Conjugate, PCV20 (Prevnar 20) 2022-05-11 00:00:00 Completed [facility] TDAP 2022-05-11 00:00:00 Completed [facility] Influenza Virus Vaccine Quad IM, Preserv and ABX Free 6 MO-64 YRS 2022-05-11 00:00:00 Completed [facility] Pneumococcal 20 Conjugate, PCV20 (Prevnar 20) 2022-05-11 00:00:00 Completed [facility] TDAP 2022-05-11 00:00:00 Completed [facility] Influenza Virus Vaccine Quad IM, Preserv and ABX Free 6 MO-64 YRS 2022-05-11 00:00:00 Completed [facility] Pneumococcal 20 Conjugate, PCV20 (Prevnar 20) 2022-05-11 00:00:00 Completed [facility] TDAP 2022-05-11 00:00:00 Completed [facility] Influenza Virus Vaccine Quad IM, Preserv and ABX Free 6 MO-64 YRS 2022-05-11 00:00:00 Completed [facility] Pneumococcal 20 Conjugate, PCV20 (Prevnar 20) 2022-05-11 00:00:00 Completed [facility] TDAP 2022-05-11 00:00:00 Completed [facility] Influenza Virus Vaccine Quad IM, Preserv and ABX Free 6 MO-64 YRS 2022-05-11 00:00:00 Completed [facility] Pneumococcal 20 Conjugate, PCV20 (Prevnar 20) 2022-05-11 00:00:00 Completed [facility] TDAP 2022-05-11 00:00:00 Completed [facility] Influenza Virus Vaccine Quad IM, Preserv and ABX Free 6 MO-64 YRS 2022-05-11 00:00:00 Completed [facility] Pneumococcal 20 Conjugate, PCV20 (Prevnar 20) [facility]22[facility]05-11 [facility] Influenza Virus Vaccine Quad IM, Preserv and ABX Free 6 MO-64 YRS 2022-05-11 00:00:00 Completed [facility] Pneumococcal 20 Conjugate, PCV20 (Prevnar 20) 2022-05-11 [facility] Influenza Virus Vaccine Quad IM, Preserv and ABX Free 6 MO-64 YRS 2022-05-11 00:00:00 Completed [facility] Pneumococcal 20 Conjugate, PCV20 (Prevnar 20) 2022-05-11 00:00:00 Completed [facility] TDAP 2022-05-11 00:00:00 Completed [facility] Influenza Virus Vaccine Quad IM, Preserv and ABX Free 6 MO-64 YRS 2022-05-11 00:00:00 Completed [facility] Pneumococcal 20 Conjugate, PCV20 (Prevnar 20) 2022-05-11 00:00:00 Completed [facility] TDAP 2022-05-11 00:00:00 Completed [facility] Influenza Virus Vaccine Quad IM, Preserv and ABX Free 6 MO-64 YRS 2022-05-11 00:00:00 Completed [facility] Pneumococcal 20 Conjugate, PCV20 (Prevnar 20) 2022-05-11 00:00:00 Completed [facility] TDAP 2022-05-11 00:00:00 Completed [facility] Influenza Virus Vaccine Quad IM, Preserv and ABX Free 6 MO-64 YRS 2022-05-11 00:00:00 Completed [facility] Pneumococcal 20 Conjugate, PCV20 (Prevnar 20) 2022-05-11 00:00:00 Completed [facility] TDAP 2022-05-11 00:00:00 Completed [facility] Influenza Virus Vaccine Quad IM, Preserv and ABX Free 6 MO-64 YRS 2022-05-11 00:00:00 Completed [facility] Pneumococcal 20 Conjugate, PCV20 (Prevnar 20) 2022-05-11 00:00:00 Completed [facility] TDAP 2022-05-11 00:00:00 Completed [facility] Influenza Virus Vaccine Quad IM, Preserv and ABX Free 6 MO-64 YRS 2022-05-11 00:00:00 Completed [facility] Pneumococcal 20 Conjugate, PCV20 (Prevnar 20) 2022-05-11 00:00:00 Completed [facility] TDAP 2022-05-11 00:00:00 Completed [facility] Influenza Virus Vaccine Quad IM, Preserv and ABX Free 6 MO-64 YRS 2022-05-11 00:00:00 Completed [facility] Pneumococcal 20 Conjugate, PCV20 (Prevnar 20) 2022-05-11 00:00:00 Completed [facility] TDAP 2022-05-11 00:00:00 Completed [facility] Influenza Virus Vaccine Quad IM, Preserv and ABX Free 6 MO-64 YRS 2022-05-11 00:00:00 Completed [facility] Pneumococcal 20 Conjugate, PCV20 (Prevnar 20) 2022-05-11 00:00:00 Completed [facility] TDAP 2022-05-11 00:00:00 Completed [facility] Influenza Virus Vaccine Quad IM, Preserv and ABX Free 6 MO-64 YRS 2022-05-11 00:00:00 Completed [facility] Pneumococcal 20 Conjugate, PCV20 (Prevnar 20) 2022-05-11 00:00:00 Completed [facility] TDAP 2022-05-11 00:00:00 Completed [facility] Influenza Virus Vaccine Quad IM, Preserv and ABX Free 6 MO-64 YRS 2022-05-11 00:00:00 Completed [facility] Pneumococcal 20 Conjugate, PCV20 (Prevnar 20) 2022-05-11 00:00:00 Completed [facility] TDAP 2022-05-11 00:00:00 Completed [facility] Influenza Virus Vaccine Quad IM, Preserv and ABX Free 6 MO-64 YRS 2022-05-11 00:00:00 Completed [facility] Pneumococcal 20 Conjugate, PCV20 (Prevnar 20) 2022-05-11 00:00:00 Completed [facility] TDAP 2022-05-11 00:00:00 Completed [facility] Influenza Virus Vaccine Quad IM, Preserv and ABX Free 6 MO-64 YRS 2022-05-11 00:00:00 Completed [facility] Pneumococcal 20 Conjugate, PCV20 (Prevnar 20) 2022-05-11 00:00:00 Completed [facility] TDAP 2022-05-11 00:00:00 Completed [facility] Influenza Virus Vaccine Quad IM, Preserv and ABX Free 6 MO-64 YRS 2022-05-11 00:00:00 Completed [facility] Pneumococcal 20 Conjugate, PCV20 (Prevnar 20) 2022-05-11 00:00:00 Completed [facility] TDAP 2022-05-11 00:00:00 Completed [facility] Influenza Virus Vaccine Quad IM, Preserv and ABX Free 6 MO-64 YRS 2022-05-11 00:00:00 Completed [facility] Pneumococcal 20 Conjugate, PCV20 (Prevnar 20) 2022-05-11 00:00:00 Completed [facility] TDAP 2022-05-11 00:00:00 Completed [facility] Influenza Virus Vaccine Quad IM, Preserv and ABX Free 6 MO-64 YRS 2022-05-11 00:00:00 Completed [facility] Pneumococcal 20 Conjugate, PCV20 (Prevnar 20) 2022-05-11 00:00:00 Completed [facility] TDAP 2022-05-11 00:00:00 Completed [facility] Influenza Virus Vaccine Quad IM, Preserv and ABX Free 6 MO-64 YRS 2022-05-11 00:00:00 Completed [facility] Pneumococcal 20 Conjugate, PCV20 (Prevnar 20) 2022-05-11 00:00:00 Completed [facility] TDAP 2022-05-11 00:00:00 Completed [facility] Influenza Virus Vaccine Quad IM, Preserv and ABX Free 6 MO-64 YRS 2022-05-11 00:00:00 Completed [facility] Pneumococcal 20 Conjugate, PCV20 (Prevnar 20) 2022-05-11 00:00:00 Completed [facility] TDAP 2022-05-11 00:00:00 Completed [facility] Influenza Virus Vaccine Quad IM, Preserv and ABX Free 6 MO-64 YRS 2022-05-11 00:00:00 Completed [facility] Pneumococcal 20 Conjugate, PCV20 (Prevnar 20) 2022-05-11 00:00:00 Completed [facility] TDAP 2022-05-11 00:00:00 Completed [facility] Influenza Virus Vaccine Quad IM, Preserv and ABX Free 6 MO-64 YRS 2022-05-11 00:00:00 Completed [facility] Pneumococcal 20 Conjugate, PCV20 (Prevnar 20) 2022-05-11 [facility] Influenza Virus Vaccine Quad IM, Preserv and ABX Free 6 MO-64 YRS 2022-05-11 00:00:00 Completed [facility] Pneumococcal 20 Conjugate, PCV20 (Prevnar 20) 2022-05-11 00:00:00 Completed [facility] TDAP 2022-05-11 00:00:00 Completed [facility] Influenza Virus Vaccine Quad IM, Preserv and ABX Free 6 MO-64 YRS 2022-05-11 00:00:00 Completed [facility] Pneumococcal 20 Conjugate, PCV20 (Prevnar 20) 2022-05-11 00:00:00 Completed [facility] TDAP 2022-05-11 00:00:00 Completed [facility] Influenza Virus Vaccine Quad IM, Preserv and ABX Free 6 MO-64 YRS 2022-05-11 00:00:00 Completed [facility] Pneumococcal 20 Conjugate, PCV20 (Prevnar 20) 2022-05-11 00:00:00 Completed [facility] TDAP 2022-05-11 00:00:00 Completed [facility] Influenza Virus Vaccine Quad IM, Preserv and ABX Free 6 MO-64 YRS 2022-05-11 00:00:00 Completed [facility] Pneumococcal 20 Conjugate, PCV20 (Prevnar 20) 2022-05-11 00:00:00 Completed [facility] TDAP 2022-05-11 00:00:00 Completed [facility] Influenza Virus Vaccine Quad IM, Preserv and ABX Free 6 MO-64 YRS 2022-05-11 00:00:00 Completed [facility] Pneumococcal 20 Conjugate, PCV20 (Prevnar 20) 2022-05-11 00:00:00 Completed [facility] TDAP 2022-05-11 00:00:00 Completed [facility] Influenza Virus Vaccine Quad IM, Preserv and ABX Free 6 MO-64 YRS 2022-05-11 00:00:00 Completed [facility] Pneumococcal 20 Conjugate, PCV20 (Prevnar 20) 2022-05-11 00:00:00 Completed [facility] TDAP 2022-05-11 00:00:00 Completed [facility] Influenza Virus Vaccine Quad IM, Preserv and ABX Free 6 MO-64 YRS 2022-05-11 00:00:00 Completed [facility] Pneumococcal 20 Conjugate, PCV20 (Prevnar 20) 2022-05-11 00:00:00 Completed [facility] TDAP 2022-05-11 00:00:00 Completed [facility] Influenza Virus Vaccine Quad IM, Preserv and ABX Free 6 MO-64 YRS 2022-05-11 00:00:00 Completed [facility] Pneumococcal 20 Conjugate, PCV20 (Prevnar 20) 2022-05-11 00:00:00 Completed [facility] TDAP 2022-05-11 00:00:00 Completed [facility] Influenza Virus Vaccine Quad IM, Preserv and ABX Free 6 MO-64 YRS 2022-05-11 00:00:00 Completed [facility] Pneumococcal 20 Conjugate, PCV20 (Prevnar 20) 2022-05-11 00:00:00 Completed [facility] TDAP 2022-05-11 00:00:00 Completed [facility] Influenza Virus Vaccine Quad IM, Preserv and ABX Free 6 MO-64 YRS 2022-05-11 00:00:00 Completed [facility] Pneumococcal 20 Conjugate, PCV20 (Prevnar 20) 2022-05-11 00:00:00 Completed [facility] TDAP 2022-05-11 00:00:00 Completed [facility] Influenza Virus Vaccine Quad IM, Preserv and ABX Free 6 MO-64 YRS 2022-05-11 00:00:00 Completed [facility] Pneumococcal 20 Conjugate, PCV20 (Prevnar 20) 2022-05-11 00:00:00 Completed [facility] TDAP 2022-05-11 00:00:00 Completed [facility] Influenza Virus Vaccine Quad IM, Preserv and ABX Free 6 MO-64 YRS 2022-05-11 00:00:00 Completed [facility] Pneumococcal 20 Conjugate, PCV20 (Prevnar 20) 2022-05-11 00:00:00 Completed [facility] TDAP 2022-05-11 00:00:00 Completed [facility] Influenza Virus Vaccine Quad IM, Preserv and ABX Free 6 MO-64 YRS 2022-05-11 00:00:00 Completed [facility] Pneumococcal 20 Conjugate, PCV20 (Prevnar 20) 2022-05-11 00:00:00 Completed [facility] TDAP 2022-05-11 00:00:00 Completed [facility] Influenza Virus Vaccine Quad IM, Preserv and ABX Free 6 MO-64 YRS 2022-05-11 00:00:00 Completed [facility] Pneumococcal 20 Conjugate, PCV20 (Prevnar 20) 2022-05-11 00:00:00 Completed [facility] TDAP 2022-05-11 00:00:00 Completed [facility] Influenza Virus Vaccine Quad IM, Preserv and ABX Free 6 MO-64 YRS 2022-05-11 00:00:00 Completed [facility] Pneumococcal 20 Conjugate, PCV20 (Prevnar 20) 2022-05-11 00:00:00 Completed [facility] TDAP 2022-05-11 00:00:00 Completed [facility] Influenza Virus Vaccine Quad IM, Preserv and ABX Free 6 MO-64 YRS 2022-05-11 00:00:00 Completed [facility] Pneumococcal 20 Conjugate, PCV20 (Prevnar 20) 2022-05-11 [facility] Influenza Virus Vaccine Quad IM, Preserv and ABX Free 6 MO-64 YRS 2022-05-11 00:00:00 Completed [facility] Pneumococcal 20 Conjugate, PCV20 (Prevnar 20) 2022-05-11 00:00[facility] Com[facility] Influenza Virus Vaccine Quad IM, Preserv and ABX Free 6 MO-64 YRS 2022-05-11 00:00:00 Completed [facility] Pneumococcal 20 Conjugate, PCV20 (Prevnar 20) 2022-05-11 00:00[facility] Com[facility] Influenza Virus Vaccine Quad IM, Preserv and ABX Free 6 MO-64 YRS 2022-05-11 00:00:00 Completed [facility] Pneumococcal 20 Conjugate, PCV20 (Prevnar 20) 2022-05-11 00:00[facility] Com[facility] Influenza Virus Vaccine Quad IM, Preserv and ABX Free 6 MO-64 YRS 2022-05-11 00:00:00 Completed [facility] Pneumococcal 20 Conjugate, PCV20 (Prevnar 20) 2022-05-11 00:00:00 Completed [facility] TDAP 2022-05-11 00:00:00 Completed [facility] Influenza Virus Vaccine Quad IM, Preserv and ABX Free 6 MO-64 YRS 2022-05-11 00:00:00 Completed [facility] Pneumococcal 20 Conjugate, PCV20 (Prevnar 20) 2022-05-11 00:00:00 Completed [facility] TDAP 2022-05-11 00:00:00 Completed [facility] Influenza Virus Vaccine Quad IM, Preserv and ABX Free 6 MO-64 YRS 2022-05-11 00:00:00 Completed [facility] Pneumococcal 20 Conjugate, PCV20 (Prevnar 20) 2022-05-11 00:00:00 Completed [facility] TDAP 2022-05-11 00:00:00 Completed [facility] Influenza Virus Vaccine Quad IM, Preserv and ABX Free 6 MO-64 YRS 2022-05-11 00:00:00 Completed [facility] Pneumococcal 20 Conjugate, PCV20 (Prevnar 20) 2022-05-11 00:00:00 Completed [facility] TDAP 2022-05-11 00:00:00 Completed [facility] Influenza Virus Vaccine Quad IM, Preserv and ABX Free 6 MO-64 YRS 2022-05-11 00:00:00 Completed [facility] Pneumococcal 20 Conjugate, PCV20 (Prevnar 20) 2022-05-11 00:00:00 Completed [facility] TDAP 2022-05-11 00:00:00 Completed [facility] Influenza Virus Vaccine Quad IM, Preserv and ABX Free 6 MO-64 YRS 2022-05-11 00:00:00 Completed [facility] Pneumococcal 20 Conjugate, PCV20 (Prevnar 20) 2022-05-11 00:00:00 Completed [facility] TDAP 2022-05-11 00:00:00 Completed [facility] Influenza Virus Vaccine Quad IM, Preserv and ABX Free 6 MO-64 YRS 2022-05-11 00:00:00 Completed [facility] Pneumococcal 20 Conjugate, PCV20 (Prevnar 20) 2022-05-11 00:00:00 Completed [facility] TDAP 2022-05-11 00:00:00 Completed [facility] Influenza Virus Vaccine Quad IM, Preserv and ABX Free 6 MO-64 YRS 2022-05-11 00:00:00 Completed [facility] Pneumococcal 20 Conjugate, PCV20 (Prevnar 20) 2022-05-11 00:00:00 Completed [facility] TDAP 2022-05-11 00:00:00 Completed [facility] Influenza Virus Vaccine Quad IM, Preserv and ABX Free 6 MO-64 YRS 2022-05-11 00:00:00 Completed [facility] Pneumococcal 20 Conjugate, PCV20 (Prevnar 20) 2022-05-11 00:00:00 Completed [facility] TDAP 2022-05-11 00:00:00 Completed [facility] Influenza Virus Vaccine Quad IM, Preserv and ABX Free 6 MO-64 YRS 2022-05-11 00:00:00 Completed [facility] Pneumococcal 20 Conjugate, PCV20 (Prevnar 20) 2022-05-11 00:00:00 Completed [facility] TDAP 2022-05-11 00:00:00 Completed [facility] Influenza Virus Vaccine Quad IM, Preserv and ABX Free 6 MO-64 YRS 2022-05-11 00:00:00 Completed [facility] Pneumococcal 20 Conjugate, PCV20 (Prevnar 20) 2022-05-11 00:00:00 Completed [facility] TDAP 2022-05-11 00:00:00 Completed [facility] Influenza Virus Vaccine Quad IM, Preserv and ABX Free 6 MO-64 YRS 2022-05-11 00:00:00 Completed [facility] Pneumococcal 20 Conjugate, PCV20 (Prevnar 20) 2022-05-11 00:00:00 Completed [facility] TDAP 2022-05-11 00:00:00 Completed [facility] Influenza Virus Vaccine Quad IM, Preserv and ABX Free 6 MO-64 YRS 2022-05-11 00:00:00 Completed [facility] Pneumococcal 20 Conjugate, PCV20 (Prevnar 20) 2022-05-11 00:00:00 Completed [facility] TDAP 2022-05-11 00:00:00 Completed [facility] Influenza Virus Vaccine Quad IM, Preserv and ABX Free 6 MO-64 YRS 2022-05-11 00:00:00 Completed [facility] Pneumococcal 20 Conjugate, PCV20 (Prevnar 20) 2022-05-11 00:00:00 Completed [facility] TDAP 2022-05-11 00:00:00 Completed [facility] Influenza Virus Vaccine Quad IM, Preserv and ABX Free 6 MO-64 YRS 2022-05-11 00:00:00 Completed [facility] Pneumococcal 20 Conjugate, PCV20 (Prevnar 20) 2022-05-11 00:00:00 Completed [facility] TDAP 2022-05-11 00:00:00 Completed [facility] Influenza Virus Vaccine Quad IM, Preserv and ABX Free 6 MO-64 YRS 2022-05-11 00:00:00 Completed [facility] Pneumococcal 20 Conjugate, PCV20 (Prevnar 20) 2022-05-11 00:00:00 Completed [facility] TDAP 2022-05-11 00:00:00 Completed [facility] Influenza Virus Vaccine Quad IM, Preserv and ABX Free 6 MO-64 YRS 2022-05-11 00:00:00 Completed [facility] Pneumococcal 20 Conjugate, PCV20 (Prevnar 20) 2022-05-11 00:00:00 Completed [facility] TDAP 2022-05-11 00:00:00 Completed [facility] Influenza Virus Vaccine Quad IM, Preserv and ABX Free 6 MO-64 YRS 2022-05-11 00:00:00 Completed [facility] Pneumococcal 20 Conjugate, PCV20 (Prevnar 20) 2022-05-11 00:00:00 Completed [facility] TDAP 2022-05-11 00:00:00 Completed [facility] Influenza Virus Vaccine Quad IM, Preserv and ABX Free 6 MO-64 YRS 2022-05-11 00:00:00 Completed [facility] Pneumococcal 20 Conjugate, PCV20 (Prevnar 20) 2022-05-11 00:00:00 Completed [facility] TDAP 2022-05-11 00:00:00 Completed [facility] Influenza Virus Vaccine Quad IM, Preserv and ABX Free 6 MO-64 YRS 2022-05-11 00:00:00 Completed [facility] Pneumococcal 20 Conjugate, PCV20 (Prevnar 20) 2022-05-11 00:00:00 Completed [facility] TDAP 2022-05-11 00:00:00 Completed [facility] Influenza Virus Vaccine Quad IM, Preserv and ABX Free 6 MO-64 YRS 2022-05-11 00:00:00 Completed [facility] Pneumococcal 20 Conjugate, PCV20 (Prevnar 20) 2022-05-11 00:00:00 Completed [facility] TDAP 2022-05-11 00:00:00 Completed [facility] Influenza Virus Vaccine Quad IM, Preserv and ABX Free 6 MO-64 YRS 2022-05-11 00:00:00 Completed [facility] Pneumococcal 20 Conjugate, PCV20 (Prevnar 20) 2022-05-11 00:00:00 Completed [facility] TDAP 2022-05-11 00:00:00 Completed [facility] Influenza Virus Vaccine Quad IM, Preserv and ABX Free 6 MO-64 YRS 2022-05-11 00:00:00 Completed [facility] Pneumococcal 20 Conjugate, PCV20 (Prevnar 20) 2022-05-11 00:00:00 Completed [facility] TDAP 2022-05-11 00:00:00 Completed [facility] Influenza Virus Vaccine Quad IM, Preserv and ABX Free 6 MO-64 YRS 2022-05-11 00:00:00 Completed [facility] Pneumococcal 20 Conjugate, PCV20 (Prevnar 20) 2022-05-11 00:00:00 Completed [facility] TDAP 2022-05-11 00:00:00 Completed [facility] SARS-COV-2 COVID-19 PFIZER VACCINE 2021-03-28 00:00:00 Completed [facility] SARS-COV-2 COVID-19 PFIZER VACCINE 2021-03-28 00:00:00 Completed [facility] SARS-COV-2 COVID-19 PFIZER VACCINE 2021-03-28 00:00:00 Completed [facility] SARS-COV-2 COVID-19 PFIZER VACCINE 2021-03-28 00:00:00 Completed [facility] SARS-COV-2 COVID-19 PFIZER VACCINE 2021-03-28 00:00:00 Completed [facility] SARS-COV-2 COVID-19 PFIZER VACCINE 2021-03-28 00:00:00 Completed [facility] SARS-COV-2 COVID-19 PFIZER VACCINE 2021-03-28 00:00:00 Completed [facility] SARS-COV-2 COVID-19 PFIZER VACCINE 2021-03-28 00:00:00 Completed [facility] SARS-COV-2 COVID-19 PFIZER VACCINE 2021-03-28 00:00:00 Completed [facility] SARS-COV-2 COVID-19 PFIZER VACCINE 2021-03-28 00:00:00 Completed [facility] SARS-COV-2 COVID-19 PFIZER VACCINE 2021-03-28 00:00:00 Completed [facility] SARS-COV-2 COVID-19 PFIZER VACCINE 2021-03-28 00:00:00 Completed [facility] SARS-COV-2 COVID-19 PFIZER VACCINE 2021-03-28 00:00:00 Completed [facility] SARS-COV-2 COVID-19 PFIZER VACCINE 2021-03-28 00:00:00 Completed [facility] SARS-COV-2 COVID-19 PFIZER VACCINE 2021-03-28 00:00:00 Completed [facility] SARS-COV-2 COVID-19 PFIZER VACCINE 2021-03-28 00:00:00 Completed [facility] SARS-COV-2 COVID-19 PFIZER VACCINE 2021-03-28 00:00:00 Completed [facility] SARS-COV-2 COVID-19 PFIZER VACCINE 2021-03-28 00:00:00 Completed [facility] SARS-COV-2 COVID-19 PFIZER VACCINE 2021-03-28 00:00:00 Completed [facility] SARS-COV-2 COVID-19 PFIZER VACCINE 2021-03-28 00:00:00 Completed [facility] SARS-COV-2 COVID-19 PFIZER VACCINE 2021-03-28 00:00:00 Completed [facility] SARS-COV-2 COVID-19 PFIZER VACCINE 2021-03-28 00:00:00 Completed [facility] SARS-COV-2 COVID-19 PFIZER VACCINE 2021-03-28 00:00:00 Completed [facility] SARS-COV-2 COVID-19 PFIZER VACCINE 2021-03-28 00:00:00 Completed [facility] SARS-COV-2 COVID-19 PFIZER VACCINE 2021-03-28 00:00:00 Completed [facility] SARS-COV-2 COVID-19 PFIZER VACCINE 2021-03-28 00:00:00 Completed SARS-COV-2 COVID-19 PFIZER VACCINE 2021-03-28 00:00:00 Completed SARS-COV-2 COVID-19 PFIZER VACCINE 2021-03-28 00:00:00 Completed SARS-COV-2 COVID-19 PFIZER VACCINE 2021-03-28 00:00:00 Completed SARS-COV-2 COVID-19 PFIZER VACCINE 2021-03-28 00:00:00 Completed SARS-COV-2 COVID-19 PFIZER VACCINE 2021-03-28 00:00:00 Completed SARS-COV-2 COVID-19 PFIZER VACCINE 2021-03-28 00:00:00 Completed SARS-COV-2 COVID-19 PFIZER VACCINE 2021-03-28 00:00:00 Completed SARS-COV-2 COVID-19 PFIZER VACCINE 2021-03-28 00:00:00 Completed SARS-COV-2 COVID-19 PFIZER VACCINE 2021-03-28 00:00:00 Completed [facility] SARS-COV-2 COVID-19 PFIZER VACCINE 2021-03-28 00:00:00 Completed [facility] SARS-COV-2 COVID-19 PFIZER VACCINE 2021-03-28 00:00:00 Completed [facility] SARS-COV-2 COVID-19 PFIZER VACCINE 2021-03-28 00:00:00 Completed [facility] SARS-COV-2 COVID-19 PFIZER VACCINE 2021-03-28 00:00:00 Completed [facility] SARS-COV-2 COVID-19 PFIZER VACCINE 2021-03-28 00:00:00 Completed [facility] SARS-COV-2 COVID-19 PFIZER VACCINE 2021-03-28 00:00:00 Completed [facility] SARS-COV-2 COVID-19 PFIZER VACCINE 2021-03-28 00:00:00 Completed [facility] SARS-COV-2 COVID-19 PFIZER VACCINE 2021-03-28 00:00:00 Completed [facility] SARS-COV-2 COVID-19 PFIZER VACCINE 2021-03-28 00:00:00 Completed [facility] SARS-COV-2 COVID-19 PFIZER VACCINE 2021-03-28 00:00:00 Completed [facility] SARS-COV-2 COVID-19 PFIZER VACCINE 2021-03-28 00:00:00 Completed [facility] SARS-COV-2 COVID-19 PFIZER VACCINE 2021-03-28 00:00:00 Completed [facility] SARS-COV-2 COVID-19 PFIZER VACCINE 2021-03-28 00:00:00 Completed [facility] SARS-COV-2 COVID-19 PFIZER VACCINE 2021-03-28 00:00:00 Completed [facility] SARS-COV-2 COVID-19 PFIZER VACCINE 2021-03-28 00:00:00 Completed [facility] SARS-COV-2 COVID-19 PFIZER VACCINE 2021-03-28 00:00:00 Completed [facility] SARS-COV-2 COVID-19 PFIZER VACCINE 2021-03-28 00:00:00 Completed [facility] SARS-COV-2 COVID-19 PFIZER VACCINE 2021-03-28 00:00:00 Completed [facility] SARS-COV-2 COVID-19 PFIZER VACCINE 2021-03-28 00:00:00 Completed [facility] SARS-COV-2 COVID-19 PFIZER VACCINE 2021-03-28 00:00:00 Completed [facility] SARS-COV-2 COVID-19 PFIZER VACCINE 2021-03-28 00:00:00 Completed [facility] SARS-COV-2 COVID-19 PFIZER VACCINE 2021-03-28 00:00:00 Completed [facility] SARS-COV-2 COVID-19 PFIZER VACCINE 2021-03-28 00:00:00 Completed [facility] SARS-COV-2 COVID-19 PFIZER VACCINE 2021-03-28 00:00:00 Completed [facility] SARS-COV-2 COVID-19 PFIZER VACCINE 2021-03-28 00:00:00 Completed [facility] SARS-COV-2 COVID-19 PFIZER VACCINE 2021-03-28 00:00:00 Completed [facility] SARS-COV-2 COVID-19 PFIZER VACCINE 2021-03-28 00:00:00 Completed [facility] SARS-COV-2 COVID-19 PFIZER VACCINE 2021-03-28 00:00:00 Completed [facility] SARS-COV-2 COVID-19 PFIZER VACCINE 2021-03-28 00:00:00 Completed [facility] SARS-COV-2 COVID-19 PFIZER VACCINE 2021-03-28 00:00:00 Completed [facility] SARS-COV-2 COVID-19 PFIZER VACCINE 2021-03-28 00:00:00 Completed [facility] SARS-COV-2 COVID-19 PFIZER VACCINE 2021-03-28 00:00:00 Completed [facility] SARS-COV-2 COVID-19 PFIZER VACCINE 2021-03-28 00:00:00 Completed [facility] SARS-COV-2 COVID-19 PFIZER VACCINE 2021-03-28 00:00:00 Completed [facility] SARS-COV-2 COVID-19 PFIZER VACCINE 2021-03-28 00:00:00 Completed [facility] SARS-COV-2 COVID-19 PFIZER VACCINE 2021-03-28 00:00:00 Completed [facility] SARS-COV-2 COVID-19 PFIZER VACCINE 2021-03-28 00:00:00 Completed [facility] SARS-COV-2 COVID-19 PFIZER VACCINE 2021-03-28 00:00:00 Completed [facility] SARS-COV-2 COVID-19 PFIZER VACCINE 2021-03-28 00:00:00 Completed [facility] SARS-COV-2 COVID-19 PFIZER VACCINE 2021-03-28 00:00:00 Completed [facility] SARS-COV-2 COVID-19 PFIZER VACCINE 2021-03-28 00:00:00 Completed [facility] SARS-COV-2 COVID-19 PFIZER VACCINE 2021-03-28 00:00:00 Completed [facility] SARS-COV-2 COVID-19 PFIZER VACCINE 2021-03-28 00:00:00 Completed [facility] SARS-COV-2 COVID-19 PFIZER VACCINE 2021-03-28 00:00:00 Completed [facility] SARS-COV-2 COVID-19 PFIZER VACCINE 2021-03-28 00:00:00 Completed [facility] SARS-COV-2 COVID-19 PFIZER VACCINE 2021-03-28 00:00:00 Completed [facility] SARS-COV-2 COVID-19 PFIZER VACCINE 2021-03-28 00:00:00 Completed [facility] SARS-COV-2 COVID-19 PFIZER VACCINE 2021-03-28 00:00:00 Completed [facility] SARS-COV-2 COVID-19 PFIZER VACCINE 2021-03-28 00:00:00 Completed [facility] SARS-COV-2 COVID-19 PFIZER VACCINE 2021-03-28 00:00:00 Completed [facility] SARS-COV-2 COVID-19 PFIZER VACCINE 2021-03-28 00:00:00 Completed [facility] SARS-COV-2 COVID-19 PFIZER VACCINE 2021-03-28 00:00:00 Completed [facility] SARS-COV-2 COVID-19 PFIZER VACCINE 2021-03-28 00:00:00 Completed [facility] SARS-COV-2 COVID-19 PFIZER VACCINE 2021-03-28 00:00:00 Completed [facility] SARS-COV-2 COVID-19 PFIZER VACCINE 2021-03-28 00:00:00 Completed [facility] SARS-COV-2 COVID-19 PFIZER VACCINE 2021-03-28 00:00:00 Completed [facility] SARS-COV-2 COVID-19 PFIZER VACCINE 2021-03-28 00:00:00 Completed [facility] SARS-COV-2 COVID-19 PFIZER VACCINE 2021-03-28 00:00:00 Completed [facility] SARS-COV-2 COVID-19 PFIZER VACCINE 2021-03-28 00:00:00 Completed [facility] SARS-COV-2 COVID-19 PFIZER VACCINE 2021-03-28 00:00:00 Completed [facility] SARS-COV-2 COVID-19 PFIZER VACCINE 2021-03-28 00:00:00 Completed [facility] SARS-COV-2 COVID-19 PFIZER VACCINE 2021-03-28 00:00:00 Completed [facility] SARS-COV-2 COVID-19 PFIZER VACCINE 2021-03-28 00:00:00 Completed [facility] SARS-COV-2 COVID-19 PFIZER VACCINE 2021-03-28 00:00:00 Completed [facility] SARS-COV-2 COVID-19 PFIZER VACCINE 2021-03-28 00:00:00 Completed [facility] SARS-COV-2 COVID-19 PFIZER VACCINE 2021-03-28 00:00:00 Completed [facility] SARS-COV-2 COVID-19 PFIZER VACCINE 2021-03-28 00:00:00 Completed [facility] SARS-COV-2 COVID-19 PFIZER VACCINE 2021-03-28 00:00:00 Completed [facility] SARS-COV-2 COVID-19 PFIZER VACCINE 2021-03-28 00:00:00 Completed [facility] SARS-COV-2 COVID-19 PFIZER VACCINE 2021-03-28 00:00:00 Completed [facility] SARS-COV-2 COVID-19 PFIZER VACCINE 2021-03-28 00:00:00 Completed [facility] SARS-COV-2 COVID-19 PFIZER VACCINE 2021-03-28 00:00:00 Completed [facility] SARS-COV-2 COVID-19 PFIZER VACCINE 2021-03-28 00:00:00 Completed [facility] SARS-COV-2 COVID-19 PFIZER VACCINE 2021-03-28 00:00:00 Completed [facility] SARS-COV-2 COVID-19 PFIZER VACCINE 2021-03-28 00:00:00 Completed [facility] SARS-COV-2 COVID-19 PFIZER VACCINE 2021-03-06 00:00:00 Completed [facility] SARS-COV-2 COVID-19 PFIZER VACCINE 2021-03-06 00:00:00 Completed [facility] SARS-COV-2 COVID-19 PFIZER VACCINE 2021-03-06 00:00:00 Completed [facility] SARS-COV-2 COVID-19 PFIZER VACCINE 2021-03-06 00:00:00 Completed [facility] SARS-COV-2 COVID-19 PFIZER VACCINE 2021-03-06 00:00:00 Completed [facility] SARS-COV-2 COVID-19 PFIZER VACCINE 2021-03-06 00:00:00 Completed [facility] SARS-COV-2 COVID-19 PFIZER VACCINE 2021-03-06 00:00:00 Completed [facility] SARS-COV-2 COVID-19 PFIZER VACCINE 2021-03-06 00:00:00 Completed [facility] SARS-COV-2 COVID-19 PFIZER VACCINE 2021-03-06 00:00:00 Completed [facility] SARS-COV-2 COVID-19 PFIZER VACCINE 2021-03-06 00:00:00 Completed [facility] SARS-COV-2 COVID-19 PFIZER VACCINE 2021-03-06 00:00:00 Completed [facility] SARS-COV-2 COVID-19 PFIZER VACCINE 2021-03-06 00:00:00 Completed [facility] SARS-COV-2 COVID-19 PFIZER VACCINE 2021-03-06 00:00:00 Completed [facility] SARS-COV-2 COVID-19 PFIZER VACCINE 2021-03-06 00:00:00 Completed [facility] SARS-COV-2 COVID-19 PFIZER VACCINE 2021-03-06 00:00:00 Completed [facility] SARS-COV-2 COVID-19 PFIZER VACCINE 2021-03-06 00:00:00 Completed [facility] SARS-COV-2 COVID-19 PFIZER VACCINE 2021-03-06 00:00:00 Completed [facility] SARS-COV-2 COVID-19 PFIZER VACCINE 2021-03-06 00:00:00 Completed [facility] SARS-COV-2 COVID-19 PFIZER VACCINE 2021-03-06 00:00:00 Completed [facility] SARS-COV-2 COVID-19 PFIZER VACCINE 2021-03-06 00:00:00 Completed [facility] SARS-COV-2 COVID-19 PFIZER VACCINE 2021-03-06 00:00:00 Completed [facility] SARS-COV-2 COVID-19 PFIZER VACCINE 2021-03-06 00:00:00 Completed [facility] SARS-COV-2 COVID-19 PFIZER VACCINE 2021-03-06 00:00:00 Completed [facility] SARS-COV-2 COVID-19 PFIZER VACCINE 2021-03-06 00:00:00 Completed [facility] SARS-COV-2 COVID-19 PFIZER VACCINE 2021-03-06 00:00:00 Completed [facility] SARS-COV-2 COVID-19 PFIZER VACCINE 2021-03-06 00:00:00 Completed [facility] SARS-COV-2 COVID-19 PFIZER VACCINE 2021-03-06 00:00:00 Completed [facility] SARS-COV-2 COVID-19 PFIZER VACCINE 2021-03-06 00:00:00 Completed [facility] SARS-COV-2 COVID-19 PFIZER VACCINE 2021-03-06 00:00:00 Completed [facility] SARS-COV-2 COVID-19 PFIZER VACCINE 2021-03-06 00:00:00 Completed [facility] SARS-COV-2 COVID-19 PFIZER VACCINE 2021-03-06 00:00:00 Completed [facility] SARS-COV-2 COVID-19 PFIZER VACCINE 2021-03-06 00:00:00 Completed [facility] SARS-COV-2 COVID-19 PFIZER VACCINE 2021-03-06 00:00:00 Completed [facility] SARS-COV-2 COVID-19 PFIZER VACCINE 2021-03-06 00:00:00 Completed [facility] SARS-COV-2 COVID-19 PFIZER VACCINE 2021-03-06 00:00:00 Completed [facility] SARS-COV-2 COVID-19 PFIZER VACCINE 2021-03-06 00:00:00 Completed [facility] SARS-COV-2 COVID-19 PFIZER VACCINE 2021-03-06 00:00:00 Completed [facility] SARS-COV-2 COVID-19 PFIZER VACCINE 2021-03-06 00:00:00 Completed [facility] SARS-COV-2 COVID-19 PFIZER VACCINE 2021-03-06 00:00:00 Completed [facility] SARS-COV-2 COVID-19 PFIZER VACCINE 2021-03-06 00:00:00 Completed [facility] SARS-COV-2 COVID-19 PFIZER VACCINE 2021-03-06 00:00:00 Completed [facility] SARS-COV-2 COVID-19 PFIZER VACCINE 2021-03-06 00:00:00 Completed [facility] SARS-COV-2 COVID-19 PFIZER VACCINE 2021-03-06 00:00:00 Completed [facility] SARS-COV-2 COVID-19 PFIZER VACCINE 2021-03-06 00:00:00 Completed [facility] SARS-COV-2 COVID-19 PFIZER VACCINE 2021-03-06 00:00:00 Completed [facility] SARS-COV-2 COVID-19 PFIZER VACCINE 2021-03-06 00:00:00 Completed [facility] SARS-COV-2 COVID-19 PFIZER VACCINE 2021-03-06 00:00:00 Completed [facility] SARS-COV-2 COVID-19 PFIZER VACCINE 2021-03-06 00:00:00 Completed [facility] SARS-COV-2 COVID-19 PFIZER VACCINE 2021-03-06 00:00:00 Completed [facility] SARS-COV-2 COVID-19 PFIZER VACCINE 2021-03-06 00:00:00 Completed [facility] SARS-COV-2 COVID-19 PFIZER VACCINE 2021-03-06 00:00:00 Completed [facility] SARS-COV-2 COVID-19 PFIZER VACCINE 2021-03-06 00:00:00 Completed [facility] SARS-COV-2 COVID-19 PFIZER VACCINE 2021-03-06 00:00:00 Completed [facility] SARS-COV-2 COVID-19 PFIZER VACCINE 2021-03-06 00:00:00 Completed [facility] SARS-COV-2 COVID-19 PFIZER VACCINE 2021-03-06 00:00:00 Completed [facility] SARS-COV-2 COVID-19 PFIZER VACCINE 2021-03-06 00:00:00 Completed [facility] SARS-COV-2 COVID-19 PFIZER VACCINE 2021-03-06 00:00:00 Completed [facility] SARS-COV-2 COVID-19 PFIZER VACCINE 2021-03-06 00:00:00 Completed [facility] SARS-COV-2 COVID-19 PFIZER VACCINE 2021-03-06 00:00:00 Completed [facility] SARS-COV-2 COVID-19 PFIZER VACCINE 2021-03-06 00:00:00 Completed [facility] SARS-COV-2 COVID-19 PFIZER VACCINE 2021-03-06 00:00:00 Completed [facility] SARS-COV-2 COVID-19 PFIZER VACCINE 2021-03-06 00:00:00 Completed [facility] SARS-COV-2 COVID-19 PFIZER VACCINE 2021-03-06 00:00:00 Completed [facility] SARS-COV-2 COVID-19 PFIZER VACCINE 2021-03-06 00:00:00 Completed [facility] SARS-COV-2 COVID-19 PFIZER VACCINE 2021-03-06 00:00:00 Completed [facility] SARS-COV-2 COVID-19 PFIZER VACCINE 2021-03-06 00:00:00 Completed [facility] SARS-COV-2 COVID-19 PFIZER VACCINE 2021-03-06 00:00:00 Completed [facility] SARS-COV-2 COVID-19 PFIZER VACCINE 2021-03-06 00:00:00 Completed [facility] SARS-COV-2 COVID-19 PFIZER VACCINE 2021-03-06 00:00:00 Completed [facility] SARS-COV-2 COVID-19 PFIZER VACCINE 2021-03-06 00:00:00 Completed [facility] SARS-COV-2 COVID-19 PFIZER VACCINE 2021-03-06 00:00:00 Completed [facility] SARS-COV-2 COVID-19 PFIZER VACCINE 2021-03-06 00:00:00 Completed [facility] SARS-COV-2 COVID-19 PFIZER VACCINE 2021-03-06 00:00:00 Completed [facility] SARS-COV-2 COVID-19 PFIZER VACCINE 2021-03-06 00:00:00 Completed [facility] SARS-COV-2 COVID-19 PFIZER VACCINE 2021-03-06 00:00:00 Completed [facility] SARS-COV-2 COVID-19 PFIZER VACCINE 2021-03-06 00:00:00 Completed [facility] SARS-COV-2 COVID-19 PFIZER VACCINE 2021-03-06 00:00:00 Completed [facility] SARS-COV-2 COVID-19 PFIZER VACCINE 2021-03-06 00:00:00 Completed [facility] SARS-COV-2 COVID-19 PFIZER VACCINE 2021-03-06 00:00:00 Completed [facility] SARS-COV-2 COVID-19 PFIZER VACCINE 2021-03-06 00:00:00 Completed [facility] SARS-COV-2 COVID-19 PFIZER VACCINE 2021-03-06 00:00:00 Completed [facility] SARS-COV-2 COVID-19 PFIZER VACCINE 2021-03-06 00:00:00 Completed [facility] SARS-COV-2 COVID-19 PFIZER VACCINE 2021-03-06 00:00:00 Completed [facility] SARS-COV-2 COVID-19 PFIZER VACCINE 2021-03-06 00:00:00 Completed [facility] SARS-COV-2 COVID-19 PFIZER VACCINE 2021-03-06 00:00:00 Completed [facility] SARS-COV-2 COVID-19 PFIZER VACCINE 2021-03-06 00:00:00 Completed [facility] SARS-COV-2 COVID-19 PFIZER VACCINE 2021-03-06 00:00:00 Completed [facility] SARS-COV-2 COVID-19 PFIZER VACCINE 2021-03-06 00:00:00 Completed [facility] SARS-COV-2 COVID-19 PFIZER VACCINE 2021-03-06 00:00:00 Completed [facility] SARS-COV-2 COVID-19 PFIZER VACCINE 2021-03-06 00:00:00 Completed [facility] SARS-COV-2 COVID-19 PFIZER VACCINE 2021-03-06 00:00:00 Completed [facility] SARS-COV-2 COVID-19 PFIZER VACCINE 2021-03-06 00:00:00 Completed [facility] SARS-COV-2 COVID-19 PFIZER VACCINE 2021-03-06 00:00:00 Completed [facility] SARS-COV-2 COVID-19 PFIZER VACCINE 2021-03-06 00:00:00 Completed [facility] SARS-COV-2 COVID-19 PFIZER VACCINE 2021-03-06 00:00:00 Completed [facility] SARS-COV-2 COVID-19 PFIZER VACCINE 2021-03-06 00:00:00 Completed [facility] SARS-COV-2 COVID-19 PFIZER VACCINE 2021-03-06 00:00:00 Completed [facility] SARS-COV-2 COVID-19 PFIZER VACCINE 2021-03-06 00:00:00 Completed [facility] SARS-COV-2 COVID-19 PFIZER VACCINE 2021-03-06 00:00:00 Completed [facility] SARS-COV-2 COVID-19 PFIZER VACCINE 2021-03-06 00:00:00 Completed [facility] SARS-COV-2 COVID-19 PFIZER VACCINE 2021-03-06 00:00:00 Completed [facility] SARS-COV-2 COVID-19 PFIZER VACCINE 2021-03-06 00:00:00 Completed [facility] SARS-COV-2 COVID-19 PFIZER VACCINE 2021-03-06 00:00:00 Completed [facility] SARS-COV-2 COVID-19 PFIZER VACCINE 2021-03-06 00:00:00 Completed [facility] SARS-COV-2 COVID-19 PFIZER VACCINE 2021-03-06 00:00:00 Completed [facility] SARS-COV-2 COVID-19 PFIZER VACCINE 2021-03-06 00:00:00 Completed [facility] SARS-COV-2 COVID-19 PFIZER VACCINE 2021-03-06 00:00:00 Completed [facility] SARS-COV-2 COVID-19 PFIZER VACCINE 2021-03-06 00:00:00 Completed [facility] SARS-COV-2 COVID-19 PFIZER VACCINE 2021-03-06 00:00:00 Completed [facility] SARS-COV-2 COVID-19 PFIZER VACCINE 2021-03-06 00:00:00 Completed [facility] SARS-COV-2 COVID-19 PFIZER VACCINE Unknown Completed [facility] Influenza Virus Vaccine Quad IM, Preserv and ABX Free 6 MO-64 YRS (FLUCELVAX) Unknown Completed [facility] Pneumococcal 20 Conjugate, PCV20 (Prevnar 20) Unknown Completed [facility] TDAP Unknown Completed [facility] SARS-COV-2 COVID-19 VACCINE, BIVALENT (MODERNA BOOSTER) Unknown Completed [facility] SARS-COV-2 COVID-19 PFIZER VACCINE Unknown Completed [facility] Influenza Virus Vaccine Quad IM, Preserv and ABX Free 6 MO-64 YRS (FLUCELVAX) Unknown Completed [facility] Pneumococcal 20 Conjugate, PCV20 (Prevnar 20) Unknown Completed [facility] TDAP Unknown Completed [facility] SARS-COV-2 COVID-19 VACCINE, BIVALENT (MODERNA BOOSTER) Unknown Completed [facility] SARS-COV-2 COVID-19 PFIZER VACCINE Unknown Completed [facility] SARS-COV-2 COVID-19 PFIZER VACCINE Unknown Completed [facility] SARS-COV-2 COVID-19 PFIZER VACCINE Unknown Completed [facility] Influenza Virus Vaccine Quad IM, Preserv and ABX Free 6 MO-64 YRS (FLUCELVAX) Unknown Completed [facility] Pneumococcal 20 Conjugate, PCV20 (Prevnar 20) Unknown Completed [facility] TDAP Unknown Completed [facility] SARS-COV-2 COVID-19 VACCINE, BIVALENT (MODERNA BOOSTER) Unknown Completed [facility] SARS-COV-2 COVID-19 PFIZER VACCINE Unknown Completed [facility] Influenza Virus Vaccine Quad IM, Preserv and ABX Free 6 MO-64 YRS (FLUCELVAX) Unknown Completed [facility] Pneumococcal 20 Conjugate, PCV20 (Prevnar 20) Unknown Completed [facility] TDAP Unknown Completed [facility] SARS-COV-2 COVID-19 VACCINE, BIVALENT (MODERNA BOOSTER) Unknown Completed [facility] SARS-COV-2 COVID-19 PFIZER VACCINE Unknown Completed [facility] Influenza Virus Vaccine Quad IM, Preserv and ABX Free 6 MO-64 YRS (FLUCELVAX) Unknown Completed [facility] Pneumococcal 20 Conjugate, PCV20 (Prevnar 20) Unknown Completed [facility] TDAP Unknown Completed [facility] SARS-COV-2 COVID-19 VACCINE, BIVALENT (MODERNA BOOSTER) Unknown Completed [facility] SARS-COV-2 COVID-19 PFIZER VACCINE Unknown Completed [facility] Influenza Virus Vaccine Quad IM, Preserv and ABX Free 6 MO-64 YRS (FLUCELVAX) Unknown Completed [facility] Pneumococcal 20 Conjugate, PCV20 (Prevnar 20) Unknown Completed [facility] TDAP Unknown Completed [facility] SARS-COV-2 COVID-19 VACCINE, BIVALENT (MODERNA BOOSTER) Unknown Completed [facility] SARS-COV-2 COVID-19 PFIZER VACCINE Unknown Completed [facility] Influenza Virus Vaccine Quad IM, Preserv and ABX Free 6 MO-64 YRS (FLUCELVAX) Unknown Completed [facility] Pneumococcal 20 Conjugate, PCV20 (Prevnar 20) Unknown Completed [facility] TDAP Unknown Completed [facility] SARS-COV-2 COVID-19 VACCINE, BIVALENT (MODERNA BOOSTER) Unknown Completed [facility] SARS-COV-2 COVID-19 PFIZER VACCINE Unknown Completed [facility] Influenza Virus Vaccine Quad IM, Preserv and ABX Free 6 MO-64 YRS (FLUCELVAX) Unknown Completed [facility] Pneumococcal 20 Conjugate, PCV20 (Prevnar 20) Unknown Completed [facility] TDAP Unknown Completed [facility] SARS-COV-2 COVID-19 VACCINE, BIVALENT (MODERNA BOOSTER) Unknown Completed [facility] SARS-COV-2 COVID-19 PFIZER VACCINE Unknown Completed [facility] Influenza Virus Vaccine Quad IM, Preserv and ABX Free 6 MO-64 YRS (FLUCELVAX) Unknown Completed [facility] Pneumococcal 20 Conjugate, PCV20 (Prevnar 20) Unknown Completed [facility] TDAP Unknown Completed [facility] SARS-COV-2 COVID-19 VACCINE, BIVALENT (MODERNA BOOSTER) Unknown Completed [facility] SARS-COV-2 COVID-19 PFIZER VACCINE Unknown Completed [facility] Influenza Virus Vaccine Quad IM, Preserv and ABX Free 6 MO-64 YRS (FLUCELVAX) Unknown Completed [facility] Pneumococcal 20 Conjugate, PCV20 (Prevnar 20) Unknown Completed [facility] TDAP Unknown Completed [facility] SARS-COV-2 COVID-19 VACCINE, BIVALENT (MODERNA BOOSTER) Unknown Completed [facility] Pneumococcal 20 Conjugate, PCV20 (Prevnar 20) Unknown Completed [facility] TDAP Unknown Completed [facility] SARS-COV-2 COVID-19 VACCINE, BIVALENT (MODERNA BOOSTER) Unknown Completed [facility] SARS-COV-2 COVID-19 PFIZER VACCINE Unknown Completed [facility] Influenza Virus Vaccine Quad IM, Preserv and ABX Free 6 MO-64 YRS (FLUCELVAX) Unknown Completed [facility] SARS-COV-2 COVID-19 PFIZER VACCINE Unknown Completed [facility] Influenza Virus Vaccine Quad IM, Preserv and ABX Free 6 MO-64 YRS (FLUCELVAX) Unknown Completed [facility] Pneumococcal 20 Conjugate, PCV20 (Prevnar 20) Unknown Completed [facility] TDAP Unknown Completed [facility] SARS-COV-2 COVID-19 VACCINE, BIVALENT (MODERNA BOOSTER) Unknown Completed [facility] SARS-COV-2 COVID-19 PFIZER VACCINE Unknown Completed [facility] Influenza Virus Vaccine Quad IM, Preserv and ABX Free 6 MO-64 YRS (FLUCELVAX) Unknown Completed [facility] Pneumococcal 20 Conjugate, PCV20 (Prevnar 20) Unknown Completed [facility] TDAP Unknown Completed [facility] SARS-COV-2 COVID-19 VACCINE, BIVALENT (MODERNA BOOSTER) Unknown Completed [facility] SARS-COV-2 COVID-19 PFIZER VACCINE Unknown Completed [facility] Influenza Virus Vaccine Quad IM, Preserv and ABX Free 6 MO-64 YRS (FLUCELVAX) Unknown Completed [facility] Pneumococcal 20 Conjugate, PCV20 (Prevnar 20) Unknown Completed [facility] TDAP Unknown [facility] [facility]-19 VACCINE, BIVALENT (MODERNA BOOSTER) Unknown Completed [facility] SARS-COV-2 COVID-19 PFIZER VACCINE Unknown Completed [facility] Influenza Virus Vaccine Quad IM, Preserv and ABX Free 6 MO-64 YRS (FLUCELVAX) Unknown Completed [facility] Pneumococcal 20 Conjugate, PCV20 (Prevnar 20) Unknown Completed [facility] TDAP Unknown Completed [facility] SARS-COV-2 COVID-19 VACCINE, BIVALENT (MODERNA BOOSTER) Unknown Completed [facility] SARS-COV-2 COVID-19 PFIZER VACCINE Unknown Completed [facility] Influenza Virus Vaccine Quad IM, Preserv and ABX Free 6 MO-64 YRS (FLUCELVAX) Unknown Completed [facility] Pneumococcal 20 Conjugate, PCV20 (Prevnar 20) Unknown Completed [facility] TDAP Unknown Completed [facility] SARS-COV-2 COVID-19 VACCINE, BIVALENT (MODERNA BOOSTER) Unknown Completed [facility] SARS-COV-2 COVID-19 PFIZER VACCINE Unknown Completed [facility] Influenza Virus Vaccine Quad IM, Preserv and ABX Free 6 MO-64 YRS (FLUCELVAX) Unknown Completed [facility] Pneumococcal 20 Conjugate, PCV20 (Prevnar 20) Unknown Completed [facility] TDAP Unknown Completed [facility] SARS-COV-2 COVID-19 VACCINE, BIVALENT (MODERNA BOOSTER) Unknown Completed [facility] SARS-COV-2 COVID-19 PFIZER VACCINE Unknown Completed [facility] Influenza Virus Vaccine Quad IM, Preserv and ABX Free 6 MO-64 YRS (FLUCELVAX) Unknown Completed [facility] Pneumococcal 20 Conjugate, PCV20 (Prevnar 20) Unknown Completed [facility] TDAP Unknown Completed [facility] SARS-COV-2 COVID-19 VACCINE, BIVALENT (MODERNA BOOSTER) Unknown Completed [facility] SARS-COV-2 COVID-19 PFIZER VACCINE Unknown Completed [facility] Influenza Virus Vaccine Quad IM, Preserv and ABX Free 6 MO-64 YRS (FLUCELVAX) Unknown Completed [facility] Pneumococcal 20 Conjugate, PCV20 (Prevnar 20) Unknown Completed [facility] TDAP Unknown Completed [facility] SARS-COV-2 COVID-19 VACCINE, BIVALENT (MODERNA BOOSTER) Unknown Completed [facility] SARS-COV-2 COVID-19 PFIZER VACCINE Unknown Completed [facility] Influenza Virus Vaccine Quad IM, Preserv and ABX Free 6 MO-64 YRS (FLUCELVAX) Unknown Completed [facility] Pneumococcal 20 Conjugate, PCV20 (Prevnar 20) Unknown Completed [facility] TDAP Unknown Completed [facility] SARS-COV-2 COVID-19 VACCINE, BIVALENT (MODERNA BOOSTER) Unknown Completed [facility] SARS-COV-2 COVID-19 PFIZER VACCINE Unknown Completed [facility] Influenza Virus Vaccine Quad IM, Preserv and ABX Free 6 MO-64 YRS (FLUCELVAX) Unknown Completed [facility] Pneumococcal 20 Conjugate, PCV20 (Prevnar 20) Unknown Completed [facility] TDAP Unknown Completed [facility] SARS-COV-2 COVID-19 VACCINE, BIVALENT (MODERNA BOOSTER) Unknown Completed [facility] SARS-COV-2 COVID-19 PFIZER VACCINE Unknown Completed [facility] Influenza Virus Vaccine Quad IM, Preserv and ABX Free 6 MO-64 YRS (FLUCELVAX) Unknown Completed [facility] Pneumococcal 20 Conjugate, PCV20 (Prevnar 20) Unknown Completed [facility] TDAP Unknown Completed [facility] SARS-COV-2 COVID-19 VACCINE, BIVALENT (MODERNA BOOSTER) Unknown Completed [facility] Pneumococcal 20 Conjugate, PCV20 (Prevnar 20) Unknown Completed [facility] TDAP Unknown Completed [facility] SARS-COV-2 COVID-19 VACCINE, BIVALENT (MODERNA BOOSTER) Unknown Completed [facility] SARS-COV-2 COVID-19 PFIZER VACCINE Unknown Completed [facility] Influenza Virus Vaccine Quad IM, Preserv and ABX Free 6 MO-64 YRS (FLUCELVAX) Unknown Completed [facility] Pneumococcal 20 Conjugate, PCV20 (Prevnar 20) Unknown Completed [facility] TDAP Unknown Completed [facility] SARS-COV-2 COVID-19 VACCINE, BIVALENT (MODERNA BOOSTER) Unknown Completed [facility] SARS-COV-2 COVID-19 PFIZER VACCINE Unknown Completed [facility] Influenza Virus Vaccine Quad IM, Preserv and ABX Free 6 MO-64 YRS (FLUCELVAX) Unknown Completed [facility] Pneumococcal 20 Conjugate, PCV20 (Prevnar 20) Unknown Completed [facility] TDAP Unknown Completed [facility] SARS-COV-2 COVID-19 VACCINE, BIVALENT (MODERNA BOOSTER) Unknown Completed [facility] SARS-COV-2 COVID-19 PFIZER VACCINE Unknown Completed [facility] Influenza Virus Vaccine Quad IM, Preserv and ABX Free 6 MO-64 YRS (FLUCELVAX) Unknown Completed [facility] SARS-COV-2 COVID-19 PFIZER VACCINE Unknown Completed [facility] Influenza Virus Vaccine Quad IM, Preserv and ABX Free 6 MO-64 YRS (FLUCELVAX) Unknown Completed [facility] Pneumococcal 20 Conjugate, PCV20 (Prevnar 20) Unknown Completed [facility] TDAP Unknown Completed [facility] SARS-COV-2 COVID-19 VACCINE, BIVALENT (MODERNA BOOSTER) Unknown Completed [facility] SARS-COV-2 COVID-19 PFIZER VACCINE Unknown Completed [facility] Influenza Virus Vaccine Quad IM, Preserv and ABX Free 6 MO-64 YRS (FLUCELVAX) Unknown Completed [facility] Pneumococcal 20 Conjugate, PCV20 (Prevnar 20) Unknown Completed [facility] TDAP Unknown Completed [facility] SARS-COV-2 COVID-19 VACCINE, BIVALENT (MODERNA BOOSTER) Unknown Completed [facility] SARS-COV-2 COVID-19 PFIZER VACCINE Unknown Completed [facility] Influenza Virus Vaccine Quad IM, Preserv and ABX Free 6 MO-64 YRS (FLUCELVAX) Unknown Completed [facility] Pneumococcal 20 Conjugate, PCV20 (Prevnar 20) Unknown Completed [facility] TDAP Unknown Completed [facility] SARS-COV-2 COVID-19 VACCINE, BIVALENT (MODERNA BOOSTER) Unknown Completed [facility] SARS-COV-2 COVID-19 PFIZER VACCINE Unknown Completed [facility] Influenza Virus Vaccine Quad IM, Preserv and ABX Free 6 MO-64 YRS (FLUCELVAX) Unknown Completed [facility] Pneumococcal 20 Conjugate, PCV20 (Prevnar 20) Unknown Completed [facility] TDAP Unknown Completed [facility] SARS-COV-2 COVID-19 VACCINE, BIVALENT (MODERNA BOOSTER) Unknown Completed [facility] Pneumococcal 20 Conjugate, PCV20 (Prevnar 20) Unknown Completed [facility] TDAP Unknown Completed [facility] SARS-COV-2 COVID-19 VACCINE, BIVALENT (MODERNA BOOSTER) Unknown Completed [facility] SARS-COV-2 COVID-19 PFIZER VACCINE Unknown Completed [facility] Influenza Virus Vaccine Quad IM, Preserv and ABX Free 6 MO-64 YRS (FLUCELVAX) Unknown Completed [facility] Pneumococcal 20 Conjugate, PCV20 (Prevnar 20) Unknown Completed [facility] TDAP Unknown Completed [facility] SARS-COV-2 COVID-19 VACCINE, BIVALENT (MODERNA BOOSTER) Unknown Completed [facility] SARS-COV-2 COVID-19 PFIZER VACCINE Unknown Completed [facility] Influenza Virus Vaccine Quad IM, Preserv and ABX Free 6 MO-64 YRS (FLUCELVAX) Unknown Completed [facility] SARS-COV-2 COVID-19 PFIZER VACCINE Unknown Completed [facility] Influenza Virus Vaccine Quad IM, Preserv and ABX Free 6 MO-64 YRS (FLUCELVAX) Unknown Completed [facility] Pneumococcal 20 Conjugate, PCV20 (Prevnar 20) Unknown Completed [facility] TDAP Unknown Completed [facility] SARS-COV-2 COVID-19 VACCINE, BIVALENT (MODERNA BOOSTER) Unknown Completed [facility] SARS-COV-2 COVID-19 PFIZER VACCINE Unknown Completed [facility] Influenza Virus Vaccine Quad IM, Preserv and ABX Free 6 MO-64 YRS (FLUCELVAX) Unknown Completed [facility] Pneumococcal 20 Conjugate, PCV20 (Prevnar 20) Unknown Completed [facility] TDAP Unknown Completed [facility] SARS-COV-2 COVID-19 VACCINE, BIVALENT (MODERNA BOOSTER) Unknown Completed [facility] SARS-COV-2 COVID-19 PFIZER VACCINE Unknown Completed [facility] Influenza Virus Vaccine Quad IM, Preserv and ABX Free 6 MO-64 YRS (FLUCELVAX) Unknown Completed [facility] Pneumococcal 20 Conjugate, PCV20 (Prevnar 20) Unknown Completed [facility] TDAP Unknown Completed [facility] SARS-COV-2 COVID-19 VACCINE, BIVALENT (MODERNA BOOSTER) Unknown Completed [facility] SARS-COV-2 COVID-19 PFIZER VACCINE Unknown Completed [facility] Influenza Virus Vaccine Quad IM, Preserv and ABX Free 6 MO-64 YRS (FLUCELVAX) Unknown Completed [facility] Pneumococcal 20 Conjugate, PCV20 (Prevnar 20) Unknown Completed [facility] TDAP Unknown Completed [facility] SARS-COV-2 COVID-19 VACCINE, BIVALENT (MODERNA BOOSTER) Unknown Completed [facility] SARS-COV-2 COVID-19 PFIZER VACCINE Unknown Completed [facility] Influenza Virus Vaccine Quad IM, Preserv and ABX Free 6 MO-64 YRS (FLUCELVAX) Unknown Completed [facility] Pneumococcal 20 Conjugate, PCV20 (Prevnar 20) Unknown Completed [facility] TDAP Unknown Completed [facility] SARS-COV-2 COVID-19 VACCINE, BIVALENT (MODERNA BOOSTER) Unknown Completed [facility] SARS-COV-2 COVID-19 PFIZER VACCINE Unknown Completed [facility] Influenza Virus Vaccine Quad IM, Preserv and ABX Free 6 MO-64 YRS (FLUCELVAX) Unknown Completed [facility] Pneumococcal 20 Conjugate, PCV20 (Prevnar 20) Unknown Completed [facility] TDAP Unknown Completed [facility] SARS-COV-2 COVID-19 VACCINE, BIVALENT (MODERNA BOOSTER) Unknown Completed [facility] SARS-COV-2 COVID-19 PFIZER VACCINE Unknown Completed [facility] Influenza Virus Vaccine Quad IM, Preserv and ABX Free 6 MO-64 YRS (FLUCELVAX) Unknown Completed [facility] Pneumococcal 20 Conjugate, PCV20 (Prevnar 20) Unknown Completed [facility] TDAP Unknown Completed [facility] SARS-COV-2 COVID-19 VACCINE, BIVALENT (MODERNA BOOSTER) Unknown Completed [facility] SARS-COV-2 COVID-19 PFIZER VACCINE Unknown Completed [facility] Influenza Virus Vaccine Quad IM, Preserv and ABX Free 6 MO-64 YRS (FLUCELVAX) Unknown Completed [facility] Pneumococcal 20 Conjugate, PCV20 (Prevnar 20) Unknown Completed [facility] TDAP Unknown Completed [facility] SARS-COV-2 COVID-19 VACCINE, BIVALENT (MODERNA BOOSTER) Unknown Completed [facility] SARS-COV-2 COVID-19 PFIZER VACCINE Unknown Completed [facility] Influenza Virus Vaccine Quad IM, Preserv and ABX Free 6 MO-64 YRS (FLUCELVAX) Unknown Completed [facility] Pneumococcal 20 Conjugate, PCV20 (Prevnar 20) Unknown Completed [facility] TDAP Unknown Completed [facility] SARS-COV-2 COVID-19 VACCINE, BIVALENT (MODERNA BOOSTER) Unknown Completed [facility] SARS-COV-2 COVID-19 PFIZER VACCINE Unknown Completed [facility] Influenza Virus Vaccine Quad IM, Preserv and ABX Free 6 MO-64 YRS (FLUCELVAX) Unknown Completed [facility] Pneumococcal 20 Conjugate, PCV20 (Prevnar 20) Unknown Completed [facility] TDAP Unknown Completed [facility] SARS-COV-2 COVID-19 VACCINE, BIVALENT (MODERNA BOOSTER) Unknown Completed [facility] SARS-COV-2 COVID-19 PFIZER VACCINE Unknown Completed [facility] Influenza Virus Vaccine Quad IM, Preserv and ABX Free 6 MO-64 YRS (FLUCELVAX) Unknown Completed [facility] Pneumococcal 20 Conjugate, PCV20 (Prevnar 20) Unknown Completed [facility] TDAP Unknown Completed [facility] SARS-COV-2 COVID-19 VACCINE, BIVALENT (MODERNA BOOSTER) Unknown Completed [facility] SARS-COV-2 COVID-19 PFIZER VACCINE Unknown Completed [facility] Influenza Virus Vaccine Quad IM, Preserv and ABX Free 6 MO-64 YRS (FLUCELVAX) Unknown Completed [facility] Pneumococcal 20 Conjugate, PCV20 (Prevnar 20) Unknown Completed [facility] TDAP Unknown Completed [facility] SARS-COV-2 COVID-19 VACCINE, BIVALENT (MODERNA BOOSTER) Unknown Completed [facility] SARS-COV-2 COVID-19 PFIZER VACCINE Unknown Completed [facility] Influenza Virus Vaccine Quad IM, Preserv and ABX Free 6 MO-64 YRS (FLUCELVAX) Unknown Completed [facility] Pneumococcal 20 Conjugate, PCV20 (Prevnar 20) Unknown Completed [facility] TDAP Unknown Completed [facility] SARS-COV-2 COVID-19 VACCINE, BIVALENT (MODERNA BOOSTER) Unknown Completed [facility] SARS-COV-2 COVID-19 PFIZER VACCINE Unknown Completed [facility] Influenza Virus Vaccine Quad IM, Preserv and ABX Free 6 MO-64 YRS (FLUCELVAX) Unknown Completed [facility] Pneumococcal 20 Conjugate, PCV20 (Prevnar 20) Unknown Completed [facility] TDAP Unknown Completed [facility] SARS-COV-2 COVID-19 VACCINE, BIVALENT (MODERNA BOOSTER) Unknown Completed [facility] SARS-COV-2 COVID-19 PFIZER VACCINE Unknown Completed [facility] Influenza Virus Vaccine Quad IM, Preserv and ABX Free 6 MO-64 YRS (FLUCELVAX) Unknown Completed [facility] Pneumococcal 20 Conjugate, PCV20 (Prevnar 20) Unknown Completed [facility] TDAP Unknown Completed [facility] SARS-COV-2 COVID-19 VACCINE, BIVALENT (MODERNA BOOSTER) Unknown Completed [facility] SARS-COV-2 COVID-19 PFIZER VACCINE Unknown Completed [facility] Influenza Virus Vaccine Quad IM, Preserv and ABX Free 6 MO-64 YRS (FLUCELVAX) Unknown Completed [facility] Pneumococcal 20 Conjugate, PCV20 (Prevnar 20) Unknown Completed [facility] TDAP Unknown Completed [facility] SARS-COV-2 COVID-19 VACCINE, BIVALENT (MODERNA BOOSTER) Unknown Completed [facility] SARS-COV-2 COVID-19 PFIZER VACCINE Unknown Completed [facility] Influenza Virus Vaccine Quad IM, Preserv and ABX Free 6 MO-64 YRS (FLUCELVAX) Unknown Completed [facility] Pneumococcal 20 Conjugate, PCV20 (Prevnar 20) Unknown Completed [facility] TDAP Unknown Completed [facility] SARS-COV-2 COVID-19 VACCINE, BIVALENT (MODERNA BOOSTER) Unknown Completed [facility] SARS-COV-2 COVID-19 PFIZER VACCINE Unknown Completed [facility] Influenza Virus Vaccine Quad IM, Preserv and ABX Free 6 MO-64 YRS (FLUCELVAX) Unknown Completed [facility] Pneumococcal 20 Conjugate, PCV20 (Prevnar 20) Unknown Completed [facility] TDAP Unknown Completed [facility] SARS-COV-2 COVID-19 VACCINE, BIVALENT (MODERNA BOOSTER) Unknown Completed [facility] SARS-COV-2 COVID-19 PFIZER VACCINE Unknown Completed [facility] Influenza Virus Vaccine Quad IM, Preserv and ABX Free 6 MO-64 YRS (FLUCELVAX) Unknown Completed [facility] Pneumococcal 20 Conjugate, PCV20 (Prevnar 20) Unknown Completed [facility] TDAP Unknown Completed [facility] SARS-COV-2 COVID-19 VACCINE, BIVALENT (MODERNA BOOSTER) Unknown Completed [facility] SARS-COV-2 COVID-19 PFIZER VACCINE Unknown Completed [facility] Influenza Virus Vaccine Quad IM, Preserv and ABX Free 6 MO-64 YRS (FLUCELVAX) Unknown Completed [facility] Pneumococcal 20 Conjugate, PCV20 (Prevnar 20) Unknown Completed [facility] TDAP Unknown Completed [facility] SARS-COV-2 COVID-19 VACCINE, BIVALENT (MODERNA BOOSTER) Unknown Completed [facility] SARS-COV-2 COVID-19 PFIZER VACCINE Unknown Completed [facility] Influenza Virus Vaccine Quad IM, Preserv and ABX Free 6 MO-64 YRS (FLUCELVAX) Unknown Completed [facility] Pneumococcal 20 Conjugate, PCV20 (Prevnar 20) Unknown Completed [facility] TDAP Unknown Completed [facility] SARS-COV-2 COVID-19 VACCINE, BIVALENT (MODERNA BOOSTER) Unknown Completed [facility] SARS-COV-2 COVID-19 PFIZER VACCINE Unknown Completed [facility] Influenza Virus Vaccine Quad IM, Preserv and ABX Free 6 MO-64 YRS (FLUCELVAX) Unknown Completed [facility] Pneumococcal 20 Conjugate, PCV20 (Prevnar 20) Unknown Completed [facility] TDAP Unknown Completed [facility] SARS-COV-2 COVID-19 VACCINE, BIVALENT (MODERNA BOOSTER) Unknown Completed [facility] SARS-COV-2 COVID-19 PFIZER VACCINE Unknown Completed [facility] Influenza Virus Vaccine Quad IM, Preserv and ABX Free 6 MO-64 YRS (FLUCELVAX) Unknown Completed [facility] Pneumococcal 20 Conjugate, PCV20 (Prevnar 20) Unknown Completed [facility] TDAP Unknown Completed [facility] SARS-COV-2 COVID-19 VACCINE, BIVALENT (MODERNA BOOSTER) Unknown Completed [facility] SARS-COV-2 COVID-19 PFIZER VACCINE Unknown Completed [facility] Influenza Virus Vaccine Quad IM, Preserv and ABX Free 6 MO-64 YRS (FLUCELVAX) Unknown Completed [facility] Pneumococcal 20 Conjugate, PCV20 (Prevnar 20) Unknown Completed [facility] TDAP Unknown Completed [facility] SARS-COV-2 COVID-19 VACCINE, BIVALENT (MODERNA BOOSTER) Unknown Completed [facility] SARS-COV-2 COVID-19 PFIZER VACCINE Unknown Completed [facility] Influenza Virus Vaccine Quad IM, Preserv and ABX Free 6 MO-64 YRS (FLUCELVAX) Unknown Completed [facility] Pneumococcal 20 Conjugate, PCV20 (Prevnar 20) Unknown Completed [facility] TDAP Unknown Completed [facility] SARS-COV-2 COVID-19 VACCINE, BIVALENT (MODERNA BOOSTER) Unknown Completed [facility] SARS-COV-2 COVID-19 PFIZER VACCINE Unknown Completed [facility] Influenza Virus Vaccine Quad IM, Preserv and ABX Free 6 MO-64 YRS (FLUCELVAX) Unknown Completed [facility] Pneumococcal 20 Conjugate, PCV20 (Prevnar 20) Unknown Completed [facility] TDAP Unknown Completed [facility] SARS-COV-2 COVID-19 VACCINE, BIVALENT (MODERNA BOOSTER) Unknown Completed [facility] SARS-COV-2 COVID-19 PFIZER VACCINE Unknown Completed [facility] Influenza Virus Vaccine Quad IM, Preserv and ABX Free 6 MO-64 YRS (FLUCELVAX) Unknown Completed [facility] Pneumococcal 20 Conjugate, PCV20 (Prevnar 20) Unknown Completed [facility] TDAP Unknown Completed [facility] SARS-COV-2 COVID-19 VACCINE, BIVALENT (MODERNA BOOSTER) Unknown Completed [facility] SARS-COV-2 COVID-19 PFIZER VACCINE Unknown Completed [facility] Influenza Virus Vaccine Quad IM, Preserv and ABX Free 6 MO-64 YRS (FLUCELVAX) Unknown Completed [facility] Pneumococcal 20 Conjugate, PCV20 (Prevnar 20) Unknown Completed [facility] TDAP Unknown Completed [facility] SARS-COV-2 COVID-19 VACCINE, BIVALENT (MODERNA BOOSTER) Unknown Completed [facility] SARS-COV-2 COVID-19 PFIZER VACCINE Unknown Completed [facility] Influenza Virus Vaccine Quad IM, Preserv and ABX Free 6 MO-64 YRS (FLUCELVAX) Unknown Completed [facility] Pneumococcal 20 Conjugate, PCV20 (Prevnar 20) Unknown Completed [facility] TDAP Unknown Completed [facility] SARS-COV-2 COVID-19 VACCINE, BIVALENT (MODERNA BOOSTER) Unknown Completed [facility] SARS-COV-2 COVID-19 PFIZER VACCINE Unknown Completed [facility] Influenza Virus Vaccine Quad IM, Preserv and ABX Free 6 MO-64 YRS (FLUCELVAX) Unknown Completed [facility] Pneumococcal 20 Conjugate, PCV20 (Prevnar 20) Unknown Completed [facility] TDAP Unknown Completed [facility] SARS-COV-2 COVID-19 VACCINE, BIVALENT (MODERNA BOOSTER) Unknown Completed [facility] SARS-COV-2 COVID-19 PFIZER VACCINE Unknown Completed [facility] Influenza Virus Vaccine Quad IM, Preserv and ABX Free 6 MO-64 YRS (FLUCELVAX) Unknown Completed [facility] Pneumococcal 20 Conjugate, PCV20 (Prevnar 20) Unknown Completed [facility] TDAP Unknown Completed [facility] SARS-COV-2 COVID-19 VACCINE, BIVALENT (MODERNA BOOSTER) Unknown Completed [facility] SARS-COV-2 COVID-19 PFIZER VACCINE Unknown Completed [facility] Influenza Virus Vaccine Quad IM, Preserv and ABX Free 6 MO-64 YRS (FLUCELVAX) Unknown Completed [facility] Pneumococcal 20 Conjugate, PCV20 (Prevnar 20) Unknown Completed [facility] TDAP Unknown Completed [facility] SARS-COV-2 COVID-19 VACCINE, BIVALENT (MODERNA BOOSTER) Unknown Completed [facility] SARS-COV-2 COVID-19 PFIZER VACCINE Unknown Completed [facility] Influenza Virus Vaccine Quad IM, Preserv and ABX Free 6 MO-64 YRS (FLUCELVAX) Unknown Completed [facility] Pneumococcal 20 Conjugate, PCV20 (Prevnar 20) Unknown Completed [facility] TDAP Unknown Completed [facility] SARS-COV-2 COVID-19 VACCINE, BIVALENT (MODERNA BOOSTER) Unknown Completed [facility] SARS-COV-2 COVID-19 PFIZER VACCINE Unknown Completed [facility] Influenza Virus Vaccine Quad IM, Preserv and ABX Free 6 MO-64 YRS (FLUCELVAX) Unknown Completed [facility] Pneumococcal 20 Conjugate, PCV20 (Prevnar 20) Unknown Completed [facility] TDAP Unknown Completed [facility] SARS-COV-2 COVID-19 VACCINE, BIVALENT (MODERNA BOOSTER) Unknown Completed [facility] SARS-COV-2 COVID-19 PFIZER VACCINE Unknown Completed [facility] Influenza Virus Vaccine Quad IM, Preserv and ABX Free 6 MO-64 YRS (FLUCELVAX) Unknown Completed [facility] Pneumococcal 20 Conjugate, PCV20 (Prevnar 20) Unknown Completed [facility] TDAP Unknown Completed [facility] SARS-COV-2 COVID-19 VACCINE, BIVALENT (MODERNA BOOSTER) Unknown Completed [facility] SARS-COV-2 COVID-19 PFIZER VACCINE Unknown Completed [facility] Influenza Virus Vaccine Quad IM, Preserv and ABX Free 6 MO-64 YRS (FLUCELVAX) Unknown Completed [facility] Pneumococcal 20 Conjugate, PCV20 (Prevnar 20) Unknown Completed [facility] TDAP Unknown Completed [facility] SARS-COV-2 COVID-19 VACCINE, BIVALENT (MODERNA BOOSTER) Unknown Completed [facility] SARS-COV-2 COVID-19 PFIZER VACCINE Unknown Completed [facility] Influenza Virus Vaccine Quad IM, Preserv and ABX Free 6 MO-64 YRS (FLUCELVAX) Unknown Completed [facility] Pneumococcal 20 Conjugate, PCV20 (Prevnar 20) Unknown Completed [facility] TDAP Unknown Completed [facility] SARS-COV-2 COVID-19 VACCINE, BIVALENT (MODERNA BOOSTER) Unknown Completed [facility] SARS-COV-2 COVID-19 PFIZER VACCINE Unknown Completed [facility] Influenza Virus Vaccine Quad IM, Preserv and ABX Free 6 MO-64 YRS (FLUCELVAX) Unknown Completed [facility] Pneumococcal 20 Conjugate, PCV20 (Prevnar 20) Unknown Completed [facility] TDAP Unknown Completed [facility] SARS-COV-2 COVID-19 VACCINE, BIVALENT (MODERNA BOOSTER) Unknown Completed [facility] Vital Signs Vital Name Observation Time Observation Value Comments S ource Systolic blood pressure 2024-07-25 21:37:00 106 mm[Hg] [facility] Diastolic blood pressure 2024-07-25 21:37:00 57 mm[Hg] [facility] Heart rate 2024-07-25 21:37:00 56 /min [facility] Oxygen saturation in Arterial blood by Pulse oximetry 2024-07-25 21:37:00 100 /min [facility] Respiratory rate 2024-07-25 18:43:00 18 /min [facility] Body temperature 2024-07-25 17:26:00 36.56 Keely [facility] Body weight 2024-07-25 10:00:00 74.3 kg [facility] BMI 2024-07-25 10:00:00 26.44 kg/m2 [facility] Body height 2024-07-23 14:40:00 167.6 cm [facility] Systolic blood pressure 2024-07-23 17:30:00 127 mm[Hg] [facility] Diastolic blood pressure 2024-07-23 17:30:00 67 mm[Hg] [facility] Heart rate 2024-07-23 17:30:00 67 /min [facility] Oxygen saturation in Arterial blood by Pulse oximetry 2024-07-23 17:30:00 95 /min [facility] Respiratory rate 2024-07-23 17:25:43 18 /min [facility] Body temperature 2024-07-23 14:40:00 37 Keely [facility] Body height 2024-07-23 14:40:00 167.6 cm [facility] Body weight 2024-07-23 14:40:00 98.884 kg [facility] BMI 2024-07-23 14:40:00 35.19 kg/m2 [facility] Systolic blood pressure 2024-07-19 17:07:00 155 mm[Hg] [facility] Diastolic blood pressure 2024-07-19 17:07:00 75 mm[Hg] [facility] Heart rate 2024-07-19 17:07:00 84 /min [facility] Body temperature 2024-07-19 17:07:00 36.5 Keely [facility] Respiratory rate 2024-07-19 17:07:00 18 /min [facility] Body weight 2024-07-19 17:07:00 105.688 kg [facility] BMI 2024-07-19 17:07:00 37.61 kg/m2 [facility] Oxygen saturation in Arterial blood by Pulse oximetry 2024-07-19 17:07:00 97 /min [facility] Systolic blood pressure 2024-07-11 20:58:00 145 mm[Hg] [facility] Diastolic blood pressure 2024-07-11 20:58:00 77 mm[Hg] [facility] Heart rate 2024-07-11 20:58:00 80 /[facility] 2024-07-11 20:58:00 167.6 cm [facility] Body weight 2024-07-11 20:58:00 105.688 kg [facility] BMI 2024-07-11 20:58:00 37.61 kg/m2 [facility] Oxygen saturation in Arterial blood by Pulse oximetry 2024-07-11 20:58:00 94 /min [facility] Systolic blood pressure 2024-07-09 17:35:00 124 mm[Hg] [facility] Diastolic blood pressure 2024-07-09 17:35:00 51 mm[Hg] [facility] Heart rate 2024-07-09 17:35:00 50 /min [facility] Respiratory rate 2024-07-09 17:35:00 18 /min [facility] Body height 2024-07-09 17:35:00 167.6 cm [facility] Body weight 2024-07-09 17:35:00 103.874 kg [facility] BMI 2024-07-09 17:35:00 36.96 kg/m2 [facility] Oxygen saturation in Arterial blood by Pulse oximetry 2024-07-09 17:35:00 96 /min [facility] Systolic blood pressure 2024-07-09 17:25:00 124 mm[Hg] [facility] Diastolic blood pressure 2024-07-09 17:25:00 51 mm[Hg] [facility] Heart rate 2024-07-09 17:25:00 50 /min [facility] Respiratory rate 2024-07-09 17:25:00 18 /min [facility] Body height 2024-07-09 17:25:00 167.6 cm [facility] Body weight 2024-07-09 17:25:00 104.191 kg [facility] BMI 2024-07-09 17:25:00 37.07 kg/m2 [facility] Oxygen saturation in Arterial blood by Pulse oximetry 2024-07-09 17:25:00 96 /min [facility] Systolic blood pressure 2024-07-04 20:20:00 137 mm[Hg] [facility] Diastolic blood pressure 2024-07-04 20:20:00 79 mm[Hg] [facility] Heart rate 2024-07-04 20:20:00 56 /min [facility] Body temperature 2024-07-04 20:20:00 36.33 Keely [facility] Respiratory rate 2024-07-04 20:20:00 18 /min [facility] Body weight 2024-07-04 20:20:00 98.884 kg [facility] BMI 2024-07-04 20:20:00 35.19 kg/m2 [facility] Oxygen saturation in Arterial blood by Pulse oximetry 2024-07-04 20:20:00 98 /min [facility] Systolic blood pressure 2024-06-29 16:29:00 149 mm[Hg] [facility] Diastolic blood pressure 2024-06-29 16:29:00 79 mm[Hg] [facility] Heart rate 2024-06-29 16:22:00 79 /min [facility] Respiratory rate 2024-06-29 16:22:00 18 /min [facility] Body height 2024-06-29 16:22:00 167.6 cm [facility] Body weight 2024-06-29 16:22:00 98.884 kg [facility] BMI 2024-06-29 16:22:00 35.19 kg/m2 [facility] Oxygen saturation in Arterial blood by Pulse oximetry 2024-06-29 16:22:00 97 /min [facility] Systolic blood pressure 2024-06-20 19:23:00 132 mm[Hg] [facility] Diastolic blood pressure 2024-06-20 19:23:00 84 mm[Hg] [facility] Heart rate 2024-06-20 19:23:00 88 /min [facility] Body temperature 2024-06-20 19:23:00 36.61 Keely [facility] Respiratory rate 2024-06-20 19:23:00 20 /min [facility] Oxygen saturation in Arterial blood by Pulse oximetry 2024-06-20 19:23:00 96 /min [facility] Systolic blood pressure 2024-06-07 19:19:00 143 mm[Hg] [facility] Diastolic blood pressure 2024-06-07 19:19:00 63 mm[Hg] [facility] Heart rate 2024-06-07 19:19:00 69 /min [facility] Body temperature 2024-06-07 19:19:00 36.56 Keely [facility] Respiratory rate 2024-06-07 19:19:00 18 /min [facility] Body height 2024-06-07 19:19:00 167.6 cm [facility] Body weight 2024-06-07 19:19:00 106.777 kg [facility] BMI 2024-06-07 19:19:00 37.99 kg/m2 [facility] Oxygen saturation in Arterial blood by Pulse oximetry 2024-06-07 19:19:00 98 /min [facility] Systolic blood pressure 2024-06-01 18:24:00 129 mm[Hg] [facility] Diastolic blood pressure 2024-06-01 18:24:00 79 mm[Hg] [facility] Heart rate 2024-06-01 18:24:00 74 /min [facility] Body temperature 2024-06-01 18:24:00 36.5 Keely [facility] Respiratory rate 2024-06-01 18:24:00 20 /min [facility] Oxygen saturation in Arterial blood by Pulse oximetry 2024-06-01 18:24:00 95 /min [facility] Systolic blood pressure 2024-05-29 15:31:00 112 mm[Hg] [facility] Diastolic blood pressure 2024-05-29 15:31:00 60 mm[Hg] [facility] Heart rate 2024-05-29 15:31:00 70 /min [facility] Body temperature 2024-05-29 15:31:00 36.72 Keely [facility] Respiratory rate 2024-05-29 15:31:00 18 /min [facility] Body height 2024-05-29 15:31:00 167.6 cm [facility] Body weight 2024-05-29 15:31:00 106.142 kg [facility] BMI 2024-05-29 15:31:00 37.77 kg/m2 [facility] Oxygen saturation in Arterial blood by Pulse oximetry 2024-05-29 15:31:00 95 /min [facility] Systolic blood pressure 2024-05-28 15:48:00 134 mm[Hg] [facility] Diastolic blood pressure 2024-05-28 15:48:00 79 mm[Hg] [facility] Heart rate 2024-05-28 15:48:00 69 /min [facility] Respiratory rate 2024-05-28 15:48:00 16 /min [facility] Body height 2024-05-28 15:48:00 167.6 cm [facility] Body weight 2024-05-28 15:48:00 109.77 kg [facility] BMI 2024-05-28 15:48:00 39.06 kg/m2 [facility] Oxygen saturation in Arterial blood by Pulse oximetry 2024-05-28 15:48:00 94 /min [facility] Systolic blood pressure 2024-05-17 16:58:00 122 mm[Hg] [facility] Diastolic blood pressure 2024-05-17 16:58:00 71 mm[Hg] [facility] Heart rate 2024-05-17 16:58:00 67 /min [facility] Body temperature 2024-05-17 16:58:00 36.44 Keely [facility] Respiratory rate 2024-05-17 16:58:00 18 /min [facility] Body weight 2024-05-17 16:58:00 109.77 kg [facility] BMI 2024-05-17 16:58:00 39.06 kg/m2 [facility] Oxygen saturation in Arterial blood by Pulse oximetry 2024-05-17 16:58:00 96 /min [facility] Systolic blood pressure 2024-05-08 15:05:00 123 mm[Hg] [facility] Diastolic blood pressure 2024-05-08 15:05:00 71 mm[Hg] [facility] Heart rate 2024-05-08 15:05:00 67 /min [facility] Body temperature 2024-05-08 15:05:00 36.44 Keely [facility] Respiratory rate 2024-05-08 15:05:00 20 /min [facility] Body height 2024-05-08 15:05:00 167.6 cm [facility] Body weight 2024-05-08 15:05:00 110.043 kg [facility] BMI 2024-05-08 15:05:00 39.16 kg/m2 [facility] Oxygen saturation in Arterial blood by Pulse oximetry 2024-05-08 15:05:00 96 /min [facility] Systolic blood pressure 2024-05-04 18:04:00 133 mm[Hg] [facility] Diastolic blood pressure 2024-05-04 18:04:00 76 mm[Hg] [facility] Heart rate 2024-05-04 18:04:00 82 /min [facility] Body temperature 2024-05-04 18:04:00 36.61 Keely [facility] Respiratory rate 2024-05-04 18:04:00 20 /min [facility] Oxygen saturation in Arterial blood by Pulse oximetry 2024-05-04 18:04:00 97 /min [facility] Systolic blood pressure 2024-04-19 18:35:00 135 mm[Hg] [facility] Diastolic blood pressure 2024-04-19 18:35:00 78 mm[Hg] [facility] Heart rate 2024-04-19 18:35:00 75 /min [facility] Body temperature 2024-04-19 18:35:00 36.72 Keely [facility] Respiratory rate 2024-04-19 18:35:00 18 /min [facility] Body weight 2024-04-19 18:35:00 112.038 kg [facility] BMI 2024-04-19 18:35:00 39.87 kg/m2 [facility] Systolic blood pressure 2024-04-18 16:58:00 134 mm[Hg] [facility] Diastolic blood pressure 2024-04-18 16:58:00 75 mm[Hg] [facility] Heart rate 2024-04-18 16:58:00 99 /min [facility] Body temperature 2024-04-18 16:58:00 36.94 Keely [facility] Respiratory rate 2024-04-18 16:58:00 16 /min [facility] Body height 2024-04-18 16:58:00 167.6 cm [facility] Body weight 2024-04-18 16:58:00 112.084 kg [facility] BMI 2024-04-18 16:58:00 39.88 kg/m2 [facility] Oxygen saturation in Arterial blood by Pulse oximetry 2024-04-18 16:58:00 96 /min [facility] Systolic blood pressure 2024-04-13 17:26:00 149 mm[Hg] [facility] Diastolic blood pressure 2024-04-13 17:26:00 69 mm[Hg] [facility] Heart rate 2024-04-13 17:24:00 92 /min [facility] Body temperature 2024-04-13 17:24:00 36.89 Keely [facility] Body height 2024-04-13 17:24:00 167.6 cm [facility] Body weight 2024-04-13 17:24:00 112.492 kg [facility] BMI 2024-04-13 17:24:00 40.03 kg/m2 [facility] Oxygen saturation in Arterial blood by Pulse oximetry 2024-04-13 17:24:00 96 /min [facility] Systolic blood pressure 2024-04-12 18:59:00 173 mm[Hg] [facility] Diastolic blood pressure 2024-04-12 18:59:00 84 mm[Hg] [facility] Heart rate 2024-04-12 18:59:00 94 /min [facility] Body temperature 2024-04-12 18:59:00 36.33 Keely [facility] Respiratory rate 2024-04-12 18:59:00 18 /min [facility] Body weight 2024-04-12 18:59:00 111.585 kg [facility] BMI 2024-04-12 18:59:00 39.71 kg/m2 [facility] Oxygen saturation in Arterial blood by Pulse oximetry 2024-04-12 18:59:00 98 /min [facility] Systolic blood pressure 2024-04-02 20:25:00 133 mm[Hg] [facility] Diastolic blood pressure 2024-04-02 20:25:00 53 mm[Hg] [facility] Heart rate 2024-04-02 20:25:00 49 /min [facility] Body temperature 2024-04-02 20:25:00 37.11 Keely [facility] Respiratory rate 2024-04-02 20:25:00 18 /min [facility] Body height 2024-04-02 20:25:00 167.6 cm [facility] Oxygen saturation in Arterial blood by Pulse oximetry 2024-04-02 20:25:00 95 /min [facility] Systolic blood pressure 2024-03-30 21:27:00 149 mm[Hg] [facility] Diastolic blood pressure 2024-03-30 21:27:00 69 mm[Hg] [facility] Heart rate 2024-03-30 21:20:00 68 /min [facility] Respiratory rate 2024-03-30 21:20:00 18 /min [facility] Body height 2024-03-30 21:20:00 167.6 cm [facility] 2024-03-30 21:20:00 111.902 kg [facility] BMI 2024-03-30 21:20:00 39.82 kg/m2 [facility] Oxygen saturation in Arterial blood by Pulse oximetry 2024-03-30 21:20:00 97 /min [facility] Systolic blood pressure 2024-03-28 20:03:27 133 mm[Hg] [facility] Diastolic blood pressure 2024-03-28 20:03:27 62 mm[Hg] [facility] Heart rate 2024-03-28 20:03:27 69 /min [facility] Body temperature 2024-03-28 20:03:27 36.89 Keely [facility] Respiratory rate 2024-03-28 20:03:27 18 /min [facility] Oxygen saturation in Arterial blood by Pulse oximetry 2024-03-28 20:03:27 97 /min [facility] Body height 2024-03-28 18:04:00 167.6 cm [facility] Body weight 2024-03-28 18:04:00 101.152 kg [facility] BMI 2024-03-28 18:04:00 35.99 kg/m2 [facility] Systolic blood pressure 2024-03-28 15:59:00 139 mm[Hg] [facility] Diastolic blood pressure 2024-03-28 15:59:00 78 mm[Hg] [facility] Heart rate 2024-03-28 15:59:00 84 /min [facility] Body temperature 2024-03-28 15:59:00 37.22 Keely [facility] Body height 2024-03-28 15:59:00 167.6 cm [facility] Body weight 2024-03-28 15:59:00 110.224 kg [facility] BMI 2024-03-28 15:59:00 39.22 kg/m2 [facility] Oxygen saturation in Arterial blood by Pulse oximetry 2024-03-28 15:59:00 94 /min [facility] Systolic blood pressure 2024-02-20 16:29:00 158 mm[Hg] [facility] Diastolic blood pressure 2024-02-20 16:29:00 80 mm[Hg] [facility] Heart rate 2024-02-20 16:29:00 93 /min [facility] Body temperature 2024-02-20 16:29:00 36.11 Keely [facility] Body height 2024-02-20 16:29:00 167.6 cm [facility] Body weight 2024-02-20 16:29:00 112.719 kg [facility] BMI 2024-02-20 16:29:00 40.11 kg/m2 [facility] Oxygen saturation in Arterial blood by Pulse oximetry 2024-02-20 16:29:00 94 /min [facility] Systolic blood pressure 2024-02-03 19:22:00 119 mm[Hg] [facility] Diastolic blood pressure 2024-02-03 19:22:00 73 mm[Hg] [facility] Heart rate 2024-02-03 19:22:00 55 /min [facility] Body height 2024-02-03 19:22:00 167.6 cm [facility] Body weight 2024-02-03 19:22:00 119.024 kg [facility] BMI 2024-02-03 19:22:00 42.35 kg/m2 [facility] Oxygen saturation in Arterial blood by Pulse oximetry 2024-02-03 19:22:00 97 /min [facility] Systolic blood pressure 2024-01-09 20:12:00 135 mm[Hg] [facility] Diastolic blood pressure 2024-01-09 20:12:00 70 mm[Hg] [facility] Heart rate 2024-01-09 20:12:00 69 /min [facility] Oxygen saturation in Arterial blood by Pulse oximetry 2024-01-09 20:12:00 96 /min [facility] Body temperature 2024-01-09 20:11:00 36.5 Keely [facility] Respiratory rate 2024-01-09 20:11:00 18 /min [facility] Body height 2024-01-09 20:11:00 167.6 cm [facility] Body weight 2024-01-09 20:11:00 119.16 kg [facility] BMI 2024-01-09 20:11:00 42.40 kg/m2 [facility] Systolic blood pressure 2023-12-23 19:23:00 143 mm[Hg] [facility] Diastolic blood pressure 2023-12-23 19:23:00 82 mm[Hg] [facility] Heart rate 2023-12-23 19:23:00 75 /min [facility] height 2023-12-23 19:23:00 167.6 cm [facility] Body weight 2023-12-23 19:23:00 124.059 kg [facility] BMI 2023-12-23 19:23:00 44.14 kg/m2 [facility] Oxygen saturation in Arterial blood by Pulse oximetry 2023-12-23 19:23:00 99 /min [place] [facility] Systolic blood pressure 2023-12-20 18:30:00 139 mm[Hg] [facility] Diastolic blood pressure 2023-12-20 18:30:00 82 mm[Hg] [facility] Heart rate 2023-12-20 18:30:00 96 /min [facility] Body height 2023-12-20 18:30:00 167.6 cm [facility] Body weight 2023-12-20 18:30:00 124.785 kg [facility] BMI 2023-12-20 18:30:00 44.40 kg/m2 [facility] Oxygen saturation in Arterial blood by Pulse oximetry 2023-12-20 18:30:00 97 /min [place] [facility] Systolic blood pressure 2023-11-25 18:03:00 145 mm[Hg] [facility] Diastolic blood pressure 2023-11-25 18:03:00 74 mm[Hg] [facility] Heart rate 2023-11-25 18:03:00 80 /min [facility] Body height 2023-11-25 18:03:00 167.6 cm [facility] Body weight 2023-11-25 18:03:00 117.164 kg [facility] BMI 2023-11-25 18:03:00 41.69 kg/m2 [facility] Oxygen saturation in Arterial blood by Pulse oximetry 2023-11-25 18:03:00 99 /min [facility] Systolic blood pressure 2023-11-03 21:07:00 116 mm[Hg] [facility] Diastolic blood pressure 2023-11-03 21:07:00 71 mm[Hg] [facility] Heart rate 2023-11-03 21:07:00 80 /min [facility] Body temperature 2023-11-03 21:04:00 36.67 Keely [facility] Respiratory rate 2023-11-03 21:04:00 18 /min [facility] Body height 2023-11-03 21:04:00 167.6 cm [facility] Body weight 2023-11-03 21:04:00 113.445 kg [facility] BMI 2023-11-03 21:04:00 40.37 kg/m2 [facility] Oxygen saturation in Arterial blood by Pulse oximetry 2023-11-03 21:04:00 96 /min [facility] Systolic blood pressure 2023-08-08 21:45:00 153 mm[Hg] [facility] Diastolic blood pressure 2023-08-08 21:45:00 86 mm[Hg] [facility] Heart rate 2023-08-08 21:44:00 82 /min [facility] 2023-08-08 21:44:00 167.6 cm [facility] weight 2023-08-08 21:44:00 127.642 kg [facility] BMI 2023-08-08 21:44:00 45.42 kg/m2 [facility] Oxygen saturation in Arterial blood by Pulse oximetry 2023-08-08 21:44:00 98 /min [facility] Systolic blood pressure 2023-06-14 20:27:00 137 mm[Hg] [facility] Diastolic blood pressure 2023-06-14 20:27:00 68 mm[Hg] [facility] Heart rate 2023-06-14 20:27:00 88 /min [facility] Respiratory rate 2023-06-14 20:27:00 18 /min [facility] Body height 2023-06-14 20:27:00 167.6 cm [facility] Body weight 2023-06-14 20:27:00 127.189 kg [facility] BMI 2023-06-14 20:27:00 45.26 kg/m2 [facility] Oxygen saturation in Arterial blood by Pulse oximetry 2023-06-14 20:27:00 98 /min [facility] Systolic blood pressure 2023-05-09 20:49:00 141 mm[Hg] [facility] Diastolic blood pressure 2023-05-09 20:49:00 75 mm[Hg] [facility] Heart rate 2023-05-09 20:49:00 97 /min [facility] Body height 2023-05-09 20:49:00 167.6 cm [facility] Body weight 2023-05-09 20:49:00 129.139 kg [facility] BMI 2023-05-09 20:49:00 45.95 kg/m2 [facility] [facility] in Arterial blood by Pulse oximetry 2023-05-09 20:49:00 94 /min [facility] Systolic blood pressure 2023-04-05 19:06:00 137 mm[Hg] [facility] Diastolic blood pressure 2023-04-05 19:06:00 82 mm[Hg] [facility] Heart rate 2023-04-05 19:00:00 87 /min [facility] Body height 2023-04-05 19:00:00 167.6 cm [facility] Body weight 2023-04-05 19:00:00 125.737 kg [facility] BMI 2023-04-05 19:00:00 44.74 kg/m2 [facility] Oxygen saturation in Arterial blood by Pulse oximetry 2023-04-05 19:00:00 98 /min [facility] Systolic blood pressure 2023-03-24 17:36:00 152 mm[Hg] [facility] Diastolic blood pressure 2023-03-24 17:36:00 84 mm[Hg] [facility] Heart rate 2023-03-24 17:36:00 93 /min [facility] Respiratory rate 2023-03-24 17:36:00 14 /min [facility] Body weight 2023-03-24 17:36:00 124.739 kg [facility] BMI 2023-03-24 17:36:00 44.39 kg/m2 [facility] Oxygen saturation in Arterial blood by Pulse oximetry 2023-03-24 17:36:00 98 /min [facility] Systolic blood pressure 2023-03-24 18:55:00 102 mm[Hg] [facility] Diastolic blood pressure 2023-03-24 18:55:00 71 mm[Hg] [facility] Heart rate 2023-03-24 18:55:00 103 /min [facility] Respiratory rate 2023-03-24 18:55:00 19 /min [facility] Oxygen saturation in Arterial blood by Pulse oximetry 2023-03-24 18:55:00 98 /min [facility] Body temperature 2023-03-24 18:53:00 37.17 Keely [facility] Body height 2023-03-24 18:53:00 170.7 cm [facility] Body weight 2023-03-24 18:53:00 125.329 kg [facility] BMI 2023-03-24 18:53:00 43.02 kg/m2 [facility] Systolic blood pressure 2023-03-03 22:13:00 149 mm[Hg] [facility] Diastolic blood pressure 2023-03-03 22:13:00 80 mm[Hg] [facility] Heart rate 2023-03-03 21:15:00 88 /min [facility] height 2023-03-03 21:15:00 167.6 cm [facility] Body weight 2023-03-03 21:15:00 133.221 kg [facility] BMI 2023-03-03 21:15:00 47.40 kg[facility]2 [facility] in Arterial blood by Pulse oximetry 2023-03-03 21:15:00 96 /min [facility] Systolic blood pressure 2023-03-02 18:45:00 132 mm[Hg] [facility] Diastolic blood pressure 2023-03-02 18:45:00 58 mm[Hg] [facility] Heart rate 2023-03-02 18:45:00 80 /min [facility] Oxygen saturation in Arterial blood by Pulse oximetry 2023-03-02 18:45:00 97 /min [facility] Respiratory rate 2023-03-02 18:39:00 25 /min [facility] Body temperature 2023-03-02 18:12:00 36.39 Keely [facility] Body height 2023-03-02 16:24:00 167.6 cm [facility] Body weight 2023-03-02 16:24:00 138.801 kg [facility] BMI 2023-03-02 16:24:00 49.39 kg/m2 [facility] Body height 2023-03-02 16:24:00 167.6 cm [facility] Body weight 2023-03-02 16:24:00 138.801 kg [facility] BMI 2023-03-02 16:24:00 49.39 kg/m2 [facility] Systolic blood pressure 2023-02-17 17:32:00 127 mm[Hg] [facility] Diastolic blood pressure 2023-02-17 17:32:00 81 mm[Hg] [facility] Heart rate 2023-02-17 17:32:00 91 /min [facility] 2023-02-17 17:32:00 36.28 Keely [facility] Respiratory rate 2023-02-17 17:32:00 14 /min [facility] Body weight 2023-02-17 17:32:00 133.358 kg [facility] BMI 2023-02-17 17:32:00 47.45 kg/m2 [facility] Oxygen saturation in Arterial blood by Pulse oximetry 2023-02-17 17:32:00 97 /min [facility] Systolic blood pressure 2023-02-03 17:30:00 136 mm[Hg] [facility] Diastolic blood pressure 2023-02-03 17:30:00 73 mm[Hg] [facility] Heart rate 2023-02-03 17:30:00 85 /min [facility] Body temperature 2023-02-03 17:30:00 36.22 Keely [facility] Respiratory rate 2023-02-03 17:30:00 14 /min [facility] Body weight 2023-02-03 17:30:00 137.44 kg [facility] BMI 2023-02-03 17:30:00 48.91 kg/m2 [facility] Oxygen saturation in Arterial blood by Pulse oximetry 2023-02-03 17:30:00 96 /min [facility] Systolic blood pressure 2023-01-20 17:46:00 124 mm[Hg] [facility] Diastolic blood pressure 2023-01-20 17:46:00 69 mm[Hg] [facility] Heart rate 2023-01-20 17:46:00 87 /min [facility] Body temperature 2023-01-20 17:46:00 36.83 Keely [facility] Respiratory rate 2023-01-20 17:46:00 14 /min [facility] Body weight 2023-01-20 17:46:00 137.44 kg [facility] BMI 2023-01-20 17:46:00 48.91 kg/m2 [facility] Oxygen saturation in Arterial blood by Pulse oximetry 2023-01-20 17:46:00 97 /min [facility] Systolic blood pressure 2023-01-13 19:21:00 125 mm[Hg] [facility] Diastolic blood pressure 2023-01-13 19:21:00 77 mm[Hg] [facility] Heart rate 2023-01-13 19:11:00 86 /min [facility] Body temperature 2023-01-13 19:11:00 36.56 Keely [facility] Body height 2023-01-13 19:11:00 167.6 cm [facility] Body weight 2023-01-13 19:11:00 142.157 kg [facility] BMI 2023-01-13 19:11:00 50.58 kg/m2 [facility] Oxygen saturation in Arterial blood by Pulse oximetry 2023-01-13 19:11:00 95 /min [facility] Systolic blood pressure 2023-01-07 17:50:00 152 mm[Hg] [facility] Diastolic blood pressure 2023-01-07 17:50:00 70 mm[Hg] [facility] Heart rate 2023-01-07 17:50:00 78 /min [facility] Body temperature 2023-01-07 17:50:00 36.44 Keely [facility] Respiratory rate 2023-01-07 17:50:00 16 /min [facility] Body weight 2023-01-07 17:50:00 143.065 kg [facility] BMI 2023-01-07 17:50:00 50.91 kg/m2 [facility] Oxygen saturation in Arterial blood by Pulse oximetry 2023-01-07 17:50:00 97 /min [facility] Systolic blood pressure 2022-12-24 17:45:00 166 mm[Hg] [facility] Diastolic blood pressure 2022-12-24 17:45:00 86 mm[Hg] [facility] Heart rate 2022-12-24 17:45:00 77 /min [facility] Body temperature 2022-12-24 17:45:00 36.11 Keely [facility] Respiratory rate 2022-12-24 17:45:00 20 /min [facility] Body weight 2022-12-24 17:45:00 141.749 kg [facility] BMI 2022-12-24 17:45:00 50.44 kg/m2 [facility] Oxygen saturation in Arterial blood by Pulse oximetry 2022-12-24 17:45:00 99 /min [facility] Systolic blood pressure 2022-12-17 17:33:00 161 mm[Hg] [facility] Diastolic blood pressure 2022-12-17 17:33:00 78 mm[Hg] [facility] Heart rate 2022-12-17 17:33:00 77 /min [facility] Body temperature 2022-12-17 17:33:00 36.83 Keely [facility] Respiratory rate 2022-12-17 17:33:00 16 /min [facility] Body weight 2022-12-17 17:33:00 144.924 kg [facility] BMI 2022-12-17 17:33:00 51.57 kg/m2 [facility] Oxygen saturation in Arterial blood by Pulse oximetry 2022-12-17 17:33:00 96 /min [facility] Systolic blood pressure 2022-12-10 12:45:00 144 mm[Hg] [facility] Diastolic blood pressure 2022-12-10 12:45:00 86 mm[Hg] [facility] Heart rate 2022-12-10 12:45:00 78 /min [facility] Body temperature 2022-12-10 12:45:00 36.89 Keely [facility] Respiratory rate 2022-12-10 12:45:00 16 /min [facility] Oxygen saturation in Arterial blood by Pulse oximetry 2022-12-10 12:45:00 93 /min [facility] Body height 2022-11-30 03:19:00 167.6 cm [facility] Body weight 2022-11-30 03:19:00 144.2 kg [facility] BMI 2022-11-30 03:19:00 51.31 kg/m2 [facility] Systolic blood pressure 2022-12-02 18:00:00 132 mm[Hg] [facility] Diastolic blood pressure 2022-12-02 18:00:00 75 mm[Hg] [facility] Heart rate 2022-12-02 18:00:00 76 /min [facility] Body temperature 2022-12-02 18:00:00 37.11 Keely [facility] Respiratory rate 2022-12-02 18:00:00 20 /min [facility] Oxygen saturation in Arterial blood by Pulse oximetry 2022-12-02 18:00:00 97 /min [facility] Body height 2022-11-30 03:19:00 167.6 cm [facility] Body weight 2022-11-30 03:19:00 144.2 kg [facility] BMI 2022-11-30 03:19:00 51.31 kg/m2 [facility] Systolic blood pressure 2022-12-01 15:00:00 124 mm[Hg] [facility] Diastolic blood pressure 2022-12-01 15:00:00 70 mm[Hg] [facility] Heart rate 2022-12-01 15:00:00 75 /min [facility] Body temperature 2022-12-01 15:00:00 37.28 Keely [facility] Respiratory rate 2022-12-01 15:00:00 20 /min [facility] Oxygen saturation in Arterial blood by Pulse oximetry 2022-12-01 15:00:00 95 /min [facility] Body height 2022-11-30 03:19:00 167.6 cm [facility] Body weight 2022-11-30 03:19:00 144.2 kg [facility] BMI 2022-11-30 03:19:00 51.31 kg/m2 [facility] Heart rate 2022-11-30 07:30:00 84 /min [facility] Body temperature 2022-11-30 07:30:00 37.39 Keely [facility] Respiratory rate 2022-11-30 07:30:00 24 /min [facility] Oxygen saturation in Arterial blood by Pulse oximetry 2022-11-30 07:30:00 100 /min [facility] Systolic blood pressure 2022-11-30 03:45:00 134 mm[Hg] [facility] Diastolic blood pressure 2022-11-30 03:45:00 90 mm[Hg] [facility] Body height 2022-11-30 03:19:00 167.6 cm [facility] Body weight 2022-11-30 03:19:00 144.2 kg [facility] BMI 2022-11-30 03:19:00 51.31 kg/m2 [facility] Systolic blood pressure 2022-11-26 00:30:00 130 mm[Hg] [facility] Diastolic blood pressure 2022-11-26 00:30:00 82 mm[Hg] [facility] Heart rate 2022-11-26 00:30:00 76 /min [facility] Respiratory rate 2022-11-26 00:30:00 24 /min [facility] Oxygen saturation in Arterial blood by Pulse oximetry 2022-11-26 00:30:00 97 /min [facility] Body temperature 2022-11-25 20:01:00 37.17 Keely [facility] Body height 2022-11-25 20:01:00 167.6 cm [facility] Body weight 2022-11-25 20:01:00 144.244 kg [facility] BMI 2022-11-25 20:01:00 51.33 kg/m2 [facility] Systolic blood pressure 2022-11-24 21:01:00 161 mm[Hg] [facility] Diastolic blood pressure 2022-11-24 21:01:00 88 mm[Hg] [facility] Heart rate 2022-11-24 21:01:00 95 /min [facility] Body temperature 2022-11-24 21:01:00 36.33 Keely [facility] Respiratory rate 2022-11-24 21:01:00 20 /min [facility] Oxygen saturation in Arterial blood by Pulse oximetry 2022-11-24 21:01:00 95 /min [facility] Systolic blood pressure 2022-11-04 21:38:00 126 mm[Hg] [facility] Diastolic blood pressure 2022-11-04 21:38:00 76 mm[Hg] [facility] Heart rate 2022-11-04 21:38:00 85 /min [facility] Body temperature 2022-11-04 21:38:00 36.56 Keely [facility] Respiratory rate 2022-11-04 21:38:00 20 /min [facility] Oxygen saturation in Arterial blood by Pulse oximetry 2022-11-04 21:38:00 97 /min [facility] Systolic blood pressure 2022-10-29 20:46:00 120 mm[Hg] [facility] Diastolic blood pressure 2022-10-29 20:46:00 80 mm[Hg] [facility] Heart rate 2022-10-29 20:46:00 89 /min [facility] Body temperature 2022-10-29 20:46:00 36.5 Keely [facility] Respiratory rate 2022-10-29 20:46:00 18 /min [facility] Oxygen saturation in Arterial blood by Pulse oximetry 2022-10-29 20:46:00 97 /min [facility] Systolic blood pressure 2022-10-22 21:37:00 117 mm[Hg] [facility] Diastolic blood pressure 2022-10-22 21:37:00 89 mm[Hg] [facility] Heart rate 2022-10-22 21:37:00 83 /min [facility] Body temperature 2022-10-22 21:37:00 36.33 Keely [facility] Respiratory rate 2022-10-22 21:37:00 18 /min [facility] Body height 2022-10-22 21:37:00 167.6 cm [facility] Body weight 2022-10-22 21:37:00 140.615 kg [facility] BMI 2022-10-22 21:37:00 50.04 kg/m2 [facility] Oxygen saturation in Arterial blood by Pulse oximetry 2022-10-22 21:37:00 96 /min [facility] Systolic blood pressure 2022-10-13 19:08:00 136 mm[Hg] [facility] Diastolic blood pressure 2022-10-13 19:08:00 78 mm[Hg] [facility] Heart rate 2022-10-13 19:08:00 79 /min [facility] Body temperature 2022-10-13 19:08:00 36.56 Keely [facility] Respiratory rate 2022-10-13 19:08:00 20 /min [facility] Oxygen saturation in Arterial blood by Pulse oximetry 2022-10-13 19:08:00 99 /min [facility] Systolic blood pressure 2022-10-08 21:05:00 140 mm[Hg] [facility] Diastolic blood pressure 2022-10-08 21:05:00 76 mm[Hg] [facility] Heart rate 2022-10-08 21:04:00 73 /min [facility] Body temperature 2022-10-08 21:04:00 36.61 Keely [facility] Respiratory rate 2022-10-08 21:04:00 20 /min [facility] Body weight 2022-10-08 21:04:00 140.842 kg [facility] BMI 2022-10-08 21:04:00 50.12 kg/m2 [facility] Oxygen saturation in Arterial blood by Pulse oximetry 2022-10-08 21:04:00 98 /min [facility] Systolic blood pressure 2022-10-01 20:47:00 165 mm[Hg] [facility] Diastolic blood pressure 2022-10-01 20:47:00 88 mm[Hg] [facility] Heart rate 2022-10-01 20:47:00 74 /min [facility] Body temperature 2022-10-01 20:47:00 36.67 Keely [facility] Respiratory rate 2022-10-01 20:47:00 20 /min [facility] Oxygen saturation in Arterial blood by Pulse oximetry 2022-10-01 20:47:00 95 /min [facility] Systolic blood pressure 2022-09-23 19:21:00 132 mm[Hg] [facility] Diastolic blood pressure 2022-09-23 19:21:00 76 mm[Hg] [facility] Heart rate 2022-09-23 19:21:00 92 /min [facility] Body temperature 2022-09-23 19:21:00 36.67 Keely [facility] Respiratory rate 2022-09-23 19:21:00 18 /min [facility] Oxygen saturation in Arterial blood by Pulse oximetry 2022-09-23 19:21:00 99 /min [facility] Systolic blood pressure 2022-09-15 21:20:00 126 mm[Hg] [facility] Diastolic blood pressure 2022-09-15 21:20:00 76 mm[Hg] [facility] Heart rate 2022-09-15 21:20:00 89 /min [facility] Body temperature 2022-09-15 21:20:00 36.67 Keely [facility] Respiratory rate 2022-09-15 21:20:00 18 /min [facility] Body weight 2022-09-15 21:20:00 140.615 kg [facility] BMI 2022-09-15 21:20:00 50.04 kg/m2 [facility] Oxygen saturation in Arterial blood by Pulse oximetry 2022-09-15 21:20:00 99 /min [facility] Systolic blood pressure 2022-09-07 20:11:00 180 mm[Hg] [facility] Diastolic blood pressure 2022-09-07 20:11:00 82 mm[Hg] [facility] Heart rate 2022-09-07 20:11:00 84 /min [facility] Body temperature 2022-09-07 20:11:00 36.67 Keely [facility] Respiratory rate 2022-09-07 20:11:00 22 /min [facility] Body height 2022-09-07 20:11:00 167.6 cm [facility] Body weight 2022-09-07 20:11:00 143.881 kg [facility] BMI 2022-09-07 20:11:00 51.20 kg/m2 [facility] Oxygen saturation in Arterial blood by Pulse oximetry 2022-09-07 20:11:00 96 /min [facility] Systolic blood pressure 2022-09-01 19:25:00 136 mm[Hg] [facility] Diastolic blood pressure 2022-09-01 19:25:00 83 mm[Hg] [facility] Heart rate 2022-09-01 19:25:00 78 /min [facility] Body temperature 2022-09-01 19:25:00 36.67 Keely [facility] Body height 2022-09-01 19:25:00 167.6 cm [facility] Body weight 2022-09-01 19:25:00 146.058 kg [facility] BMI 2022-09-01 19:25:00 51.97 kg/m2 [facility] Oxygen saturation in Arterial blood by Pulse oximetry 2022-09-01 19:25:00 98 /min [facility] Systolic blood pressure 2022-08-18 16:07:00 133 mm[Hg] [facility] Diastolic blood pressure 2022-08-18 16:07:00 78 mm[Hg] [facility] Heart rate 2022-08-18 16:07:00 78 /min [facility] Body temperature 2022-08-18 16:07:00 36.28 Keely [facility] Respiratory rate 2022-08-18 16:07:00 18 /min [facility] Body weight 2022-08-18 16:07:00 146.149 kg [facility] BMI 2022-08-18 16:07:00 52.00 kg/m2 [facility] Oxygen saturation in Arterial blood by Pulse oximetry 2022-08-18 16:07:00 94 /min [facility] Body temperature 2022-08-12 19:54:00 36.28 Keely [facility] Body height 2022-08-12 19:54:00 167.6 cm [facility] Body weight 2022-08-12 19:54:00 144.697 kg [facility] BMI 2022-08-12 19:54:00 51.49 kg/m2 [facility] Respiratory rate 2022-07-30 20:50:00 19 /min [facility] Oxygen saturation in Arterial blood by Pulse oximetry 2022-07-30 20:50:00 95 /min [facility] Systolic blood pressure 2022-07-30 20:45:00 107 mm[Hg] [facility] Diastolic blood pressure 2022-07-30 20:45:00 60 mm[Hg] [facility] Heart rate 2022-07-30 20:15:00 67 /min [facility] Body temperature 2022-07-30 20:00:00 36.22 Keely [facility] Body height 2022-07-30 17:45:00 167.6 cm [facility] Body weight 2022-07-30 17:45:00 143.4 kg [facility] BMI 2022-07-30 17:45:00 51.03 kg/m2 [facility] Systolic blood pressure 2022-07-30 17:45:00 162 mm[Hg] [facility] Diastolic blood pressure 2022-07-30 17:45:00 92 mm[Hg] [facility] Heart rate 2022-07-30 17:45:00 90 /min [facility] Body temperature 2022-07-30 17:45:00 37.06 Keely [facility] Respiratory rate 2022-07-30 17:45:00 18 /min [facility] Body height 2022-07-30 17:45:00 167.6 cm [facility] Body weight 2022-07-30 17:45:00 143.4 kg [facility] BMI 2022-07-30 17:45:00 51.03 kg/m2 [facility] Oxygen saturation in Arterial blood by Pulse oximetry 2022-07-30 17:45:00 98 /min [facility] Systolic blood pressure 2022 20:49:00 128 mm[Hg] [facility] Diastolic blood pressure 2022 20:49:00 85 mm[Hg] [facility] Heart rate 2022 20:49:00 85 /min [facility] Body temperature 2022 20:49:00 36.28 Keely [facility] Body height 2022 20:49:00 167.6 cm [facility] Body weight 2022 20:49:00 144.244 kg [facility] BMI 2022 20:49:00 51.33 kg/m2 [facility] Systolic blood pressure 2022-07-21 21:12:00 137 mm[Hg] [facility] Diastolic blood pressure 2022-07-21 21:12:00 81 mm[Hg] [facility] Heart rate 2022-07-21 21:11:00 76 /min [facility] Body temperature 2022-07-21 21:11:00 36.56 Keely [facility] Respiratory rate 2022-07-21 21:11:00 16 /min [facility] Body height 2022-07-21 21:11:00 167.6 cm [facility] Body weight 2022-07-21 21:11:00 142.429 kg [facility] BMI 2022-07-21 21:11:00 50.68 kg/m2 [facility] Oxygen saturation in Arterial blood by Pulse oximetry 2022-07-21 21:11:00 96 /min [facility] Body temperature 2022-07-15 21:30:00 36.11 Keely [facility] Body height 2022-07-15 21:30:00 167.6 cm [facility] Body weight 2022-07-15 21:30:00 143.065 kg [facility] BMI 2022-07-15 21:30:00 50.91 kg/m2 [facility] Body temperature 2022-07-13 14:33:00 36.06 Keely [facility] Body height 2022-07-13 14:33:00 167.6 cm [facility] Body weight 2022-07-13 14:33:00 143.79 kg [facility] BMI 2022-07-13 14:33:00 51.17 kg/m2 [facility] Systolic blood pressure 2022-07-06 22:25:00 122 mm[Hg] [facility] Diastolic blood pressure 2022-07-06 22:25:00 68 mm[Hg] [facility] Heart rate 2022-07-06 22:25:00 92 /min [facility] Body temperature 2022-07-06 22:25:00 36.22 [facility] Respiratory rate 2022-07-06 22:25:00 18 /min [facility] Body height 2022-07-06 22:25:00 167.6 cm [facility] Body weight 2022-07-06 22:25:00 144.516 kg [facility] BMI 2022-07-06 22:25:00 51.42 kg/m2 [facility] Oxygen saturation in Arterial blood by Pulse oximetry 2022-07-06 22:25:00 99 /min [facility] Body temperature 2022-07-05 15:46:00 35.67 [facility] Body height 2022-07-05 15:46:00 14.2 cm [facility] Body weight 2022-07-05 15:46:00 142.838 kg [facility] BMI 2022-07-05 15:46:00 7059.91 kg[facility]m2 [facility] 2022-07-02 02:15:00 142 mm[Hg] [facility] Diastolic blood pressure 2022-07-02 02:15:00 76 mm[Hg] [facility] Heart rate 2022-07-02 02:15:00 69 /min [facility] Respiratory rate 2022-07-02 02:15:00 17 /min [facility] Oxygen saturation in Arterial blood by Pulse oximetry 2022-07-02 02:15:00 98 /min [facility] Body temperature 2022-07-01 21:40:00 36.89 Keely [facility] Body weight 2022-07-01 21:40:00 142.429 kg Univ [facility] BMI 2022-07-01 21:40:00 50.68 kg/m2 [facility] Systolic blood pressure 2022-07-01 19:32:00 132 mm[Hg] [facility] Diastolic blood pressure 2022-07-01 19:32:00 82 mm[Hg] [facility] Heart rate 2022-07-01 19:31:00 75 /min Unive [facility] Body height 2022-07-01 19:31:00 167.6 cm [facility] Body weight 2022-07-01 19:31:00 142.792 kg Univ [facility] BMI 2022-07-01 19:31:00 50.81 kg/m2 [facility] Oxygen saturation in Arterial blood by Pulse oximetry 2022-07-01 19:31:00 98 /min [facility] Systolic blood pressure 2022-06-30 19:15:00 147 mm[Hg] [facility] Diastolic blood pressure 2022-06-30 19:15:00 82 mm[Hg] [facility] Heart rate 2022-06-30 19:15:00 88 /min Unive [facility] Body height 2022-06-30 19:15:00 167.6 cm [facility] Body weight 2022-06-30 19:15:00 142.974 kg [facility] BMI 2022-06-30 19:15:00 50.87 kg/m2 [facility] Oxygen saturation in Arterial blood by Pulse oximetry 2022-06-30 19:15:00 96 /min [facility] Heart rate 2022-06-08 15:41:00 73 /min Unive [facility] Respiratory rate 2022-06-08 15:41:00 21 /min [facility] Oxygen saturation in Arterial blood by Pulse oximetry 2022-06-08 15:41:00 95 /min [facility] Systolic blood pressure 2022-06-08 15:40:00 123 mm[Hg] [facility] Diastolic blood pressure 2022-06-08 15:40:00 72 mm[Hg] [facility] Body temperature 2022-06-08 14:30:00 36.11 Keely [facility] Body height 2022-05-25 15:25:00 167.6 cm [facility] Body weight 2022-05-25 15:25:00 145.2 kg [facility] BMI 2022-05-25 15:25:00 51.69 kg/m2 [facility] Systolic blood pressure 2022-06-08 12:34:00 163 mm[Hg] [facility] Diastolic blood pressure 2022-06-08 12:34:00 98 mm[Hg] [facility] Heart rate 2022-06-08 12:34:00 78 /min Unive [facility] Body temperature 2022-06-08 12:34:00 36.78 Keely [facility] Respiratory rate 2022-06-08 12:34:00 18 /min [facility] Oxygen saturation in Arterial blood by Pulse oximetry 2022-06-08 12:34:00 98 /min [facility] Body height 2022-05-25 15:25:00 167.6 cm [facility] Body weight 2022-05-25 15:25:00 145.2 kg [facility] BMI 2022-05-25 15:25:00 51.69 kg/m2 [facility] Systolic blood pressure 2022-05-14 19:35:00 157 mm[Hg] [facility] Diastolic blood pressure 2022-05-14 19:35:00 91 mm[Hg] [facility] Heart rate 2022-05-14 19:35:00 84 /min Unive [facility] Respiratory rate 2022-05-14 19:34:00 20 /min [facility] Body height 2022-05-14 19:34:00 167.6 cm [facility] Body weight 2022-05-14 19:34:00 145.151 kg [facility] BMI 2022-05-14 19:34:00 51.65 kg/m2 [facility] Oxygen saturation in Arterial blood by Pulse oximetry 2022-05-14 19:34:00 95 /min [facility] Systolic blood pressure 2022-03-18 21:28:00 139 mm[Hg] [facility] Diastolic blood pressure 2022-03-18 21:28:00 80 mm[Hg] [facility] Heart rate 2022-03-18 21:28:00 87 /min [facility] Respiratory rate 2022-03-18 21:24:00 18 /min [facility] Body height 2022-03-18 21:24:00 167.6 cm [facility] Body weight 2022-03-18 21:24:00 145.605 kg [facility] BMI 2022-03-18 21:24:00 51.81 kg/m2 [facility] Oxygen saturation in Arterial blood by Pulse oximetry 2022-03-18 21:24:00 98 /min [facility] Procedures Procedure Date / Time Performed Performing Clinician Source POCT GLUCOSE (AUTOMATED) 2024-07-25 18:33:00 Arpan Harding [facility] POCT GLUCOSE (AUTOMATED) 2024-07-25 14:24:00 Arpan Harding [facility] PHOSPHORUS 2024-07-25 11:43:00 Sue [facility] MAGNESIUM 2024-07-25 11:43:00 Sue [facility] BASIC METABOLIC PANEL (NA, K, CL, CO2, GLUCOSE, BUN, CREATININE, CA) 2024-07-25 11:43:00 Sue North [facility] CBC WITH DIFF 2024-07-25 11:43:00 [facility] ([facility]ATED) 2024-07-25 01:48:00 Arpan Harding [facility] POCT GLUCOSE (AUTOMATED) 2024-07-25 01:48:00 Mehdi [facility] POCT GLUCOSE (AUTOMATED) 2024-07-24 22:21:00 Mehdi [facility] POCT GLUCOSE (AUTOMATED) 2024-07-24 22:21:00 Mehdi [facility] POCT GLUCOSE (AUTOMATED) 2024-07-24 17:56:00 Mehdi [facility] POCT GLUCOSE (AUTOMATED) 2024-07-24 17:56:00 Mehdi [facility] POCT GLUCOSE (AUTOMATED) 2024-07-24 14:04:00 Mehdi [facility] POCT GLUCOSE (AUTOMATED) 2024-07-24 14:04:00 Mehdi [facility] POCT GLUCOSE (AUTOMATED) 2024-07-24 11:47:00 Nav Hernandez [facility] POCT GLUCOSE (AUTOMATED) 2024-07-24 11:47:00 Nav Hernandez [facility] POCT GLUCOSE (AUTOMATED) 2024-07-24 03:25:00 Nav Hernandez [facility] POCT GLUCOSE (AUTOMATED) 2024-07-24 03:25:00 Nav Hernandez [facility] POCT GLUCOSE (AUTOMATED) 2024-07-23 22:44:00 Nav Hernandez [facility] POCT GLUCOSE (AUTOMATED) 2024-07-23 22:44:00 Nav Hernandez [facility] CATH PROCEDURE LOG 2024-07-23 17:33:33 Doctor Un assigned, Van [facility] CATH PROCEDURE LOG 2024-07-23 17:33:33 Doctor Un assigned, Van [facility] CARDIAC CATHETERIZATION 2024-07-23 17:22:19 Aquilino Buckner [facility] CARDIAC CATHETERIZATION 2024-07-23 17:22:19 Aquilino Buckner [facility] HB ECG ROUTINE & RHYTHM STRIP 2024-07-23 03:20:54 Mehreen Bukcner [facility] HB ECG ROUTINE & RHYTHM STRIP 2024-07-23 03:20:54 Mehreen Buckner [facility] US ABDOMEN LIMITED 2024-07-13 21:34:41 Toi Oden [facility] KIRSTEN MULTI LEVEL - BY VASCULAR LAB 2024-06-28 17:14:58 Art Garcia [facility] ASPIRATE OR ABSCESS CULTURE(AEROBIC/ANAEROBIC) 2024-06-20 20:40:00 Art Garcia [facility] WOUND/ASPIRATE OR ABSCESS CULTURE 2024-06-20 20:40:00 Art Garcia [facility] XR CHEST 2 VW 2024-06-11 20:07:[address] [facility] NM LUNG PERFUSION ONLY 2024-06-11 20:00:00 Isabel Rodriguez [facility] COMP. METABOLIC PANEL (13521) 2024-05-29 17:15:00 Prema [facility] POCT HEMOGLOBIN A1C TEST 2024-05-08 15:11:00 Rick Rdz [facility] HB ECG ROUTINE & RHYTHM STRIP 2024-04-02 20:37:09 Liane Diego [facility] WOUND CARE 2024-03-28 19:35:59 Faye Escalante [facility] BI US GUIDED CORE BREAST BIOPSY LEFT 2024-02-14 20:50:00 Prema [facility] BI US GUIDED CORE BREAST BIOPSY LEFT 2024-02-14 20:50:00 Prema [facility] BI ESTEVAN GUIDED CORE BREAST BIOPSY LEFT 2024-02-14 19:20:03 Prema [facility] TRANSTHORACIC ECHO (TTE) COMPLETE W/ CONTRAST 2024-02-06 21:43:19 Norman Stratton [facility] BI COMBO ULTRASOUND LEFT COMPLETE RIGHT LIMITED 2024-01-24 21:29:00 Prema [facility] BI DIAGNOSTIC TOMOSYNTHESIS BILATERAL 2024-01-24 20:32:21 Prema [facility] COMP. METABOLIC PANEL (41810) 2023-12-20 19:16:00 Prema [facility] CBC WITH DIFF 2023-12-20 19:16:00 Sima Lloyd [facility] NM THYROID UPTAKE AND SCAN 2023-12-06 20:08:00 Rick Winslow [facility] NM THYROID UPTAKE AND SCAN 2023-12-06 20:08:00 Rick Winslow [facility] FREE T4 2023-11-25 19:04:00 Rick Rdz [facility] THYROID STIMULATING HORMONE 2023-11-25 19:04:00 Rick Rdz [facility] TSH RECEPTOR ANTIBODY (TRAB) 2023-11-25 19:04:00 Rick Rdz [facility] FREE T3 2023-11-25 19:04:00 Rick Rdz [facility] PROTEIN CREAT RATIO URINE RANDOM 2023-11-03 22:08:00 Vicente Bates [facility] POCT HEMOGLOBIN A1C TEST 2023-08-08 22:00[facility]00 [facility] 2023-06-14 21:46:00 Sima Lloyd [facility] FLU VACC ([id number]), 6 MO-64 YRS, .5ML, IM, QUAD (FLUCELVAX) 2023-06-14 20:50:16 Sima Lloyd [facility] POCT HEMOGLOBIN A1C TEST 2023-04-05 00:00:00 Warren Lloyd [facility] FLEXIBLE SIGMOIDOSCOPY 2023-03-02 17:12:00 Prela Grijalva [facility] COLONOSCOPY WITH CONTROL BLEEDING 2023-03-02 17:12:00 Tracy Grijalva [facility] FLEXIBLE SIGMOIDOSCOPY (ENDO) 2023-03-02 16:48:59 Sima Lloyd [facility] FLEXIBLE SIGMOIDOSCOPY (ENDO) 2023-03-02 16:48:59 [facility]) 2023-03-02 16:29:00 Roni Grijalva [facility] POCT GLUCOSE (AUTOMATED) 2023-03-02 16:29:00 Roni Grijalva [facility] DAY SURGERY - ADC 2023-03-02 05:01:00 Doctor Kendra ssigned, [facility] POCT HEMOGLOBIN A1C TEST 2023-01-13 00:00:00 Warren Lloyd [facility] NO SHOW OR MISSED APPOINTMENT POLICY ACKNOWLEDGEMENT 2022-12-17 17:29:19 Doctor Unassigned, [facility] NOTICE OF PRIVACY PRACTICES 2022-12-17 17:28:47 Doctor Unassigned, [facility] ASSIGNMENT OF BENEFITS 2022-12-17 17:28:15 Docto r Unassigned, [facility] CONSENT TO PHOTOGRAPH 2022-12-17 05:01:00 Doctor Unassigned, [facility] REFERRAL- REQUEST/RESPONSE 2022-12-13 05:01:00 Timoteo bocanegra Unassigned, [facility] POCT GLUCOSE (AUTOMATED) 2022-12-10 13:48:00 Mrazek, A [facility] POCT GLUCOSE (AUTOMATED) 2022-12-10 12:47:00 Mrazek, A [facility] POCT GLUCOSE (AUTOMATED) 2022-12-10 09:34:00 Mrazek, A [facility] POCT GLUCOSE (AUTOMATED) 2022-12-10 05:03:00 Mrazek, A [facility] POCT GLUCOSE (AUTOMATED) 2022-12-10 01:32:00 Mrazek, A [facility] POCT GLUCOSE (AUTOMATED) 2022-12-09 22:18:00 Mrazek, A [facility] POCT GLUCOSE (AUTOMATED) 2022-12-09 17:35:00 Mrazek, A [facility] POCT GLUCOSE (AUTOMATED) 2022-12-09 16:48:00 Mrazek, A [facility] POCT GLUCOSE (AUTOMATED) 2022-12-09 13:20:00 Mrazek, A [facility] POCT GLUCOSE (AUTOMATED) 2022-12-09 09:41:00 Mrazek, A [facility] POCT GLUCOSE (AUTOMATED) 2022-12-09 05:31:00 Mrazek, A [facility] POCT GLUCOSE (AUTOMATED) 2022-12-09 01:36:00 Mrazek, A [facility] POCT GLUCOSE (AUTOMATED) 2022-12-08 22:20:00 Mrazek, A [facility] POCT GLUCOSE (AUTOMATED) 2022-12-08 16:49:00 Mrazek, A [facility] POCT GLUCOSE (AUTOMATED) 2022-12-08 03:00:00 Mrazek, A [facility] POCT GLUCOSE (AUTOMATED) 2022-12-07 23:04:00 Mrazek, A [facility] POCT GLUCOSE (AUTOMATED) 2022-12-07 21:35:00 Mrazek, A [facility] POCT GLUCOSE (AUTOMATED) 2022-12-07 17:33:00 Mrazek, A [facility] POCT GLUCOSE (AUTOMATED) 2022-12-07 13:37:00 Mrazek, A [facility] POCT GLUCOSE (AUTOMATED) 2022-12-07 02:49:00 Mrazek, A [facility] POCT GLUCOSE (AUTOMATED) 2022-12-06 21:11:00 Mrazek, A [facility] POCT GLUCOSE (AUTOMATED) 2022-12-06 17:27:00 Mrazek, A [facility] POCT GLUCOSE (AUTOMATED) 2022-12-06 13:04:00 Mrazek, A [facility] PHOSPHORUS 2022-12-06 11:44:00 Yoko [facility] MAGNESIUM 2022-12-06 11:44:00 Yoko [facility] POCT GLUCOSE (AUTOMATED) 2022-12-06 01:43:00 Mrazek, A [facility] POCT GLUCOSE (AUTOMATED) 2022-12-05 21:54:00 Mrazek, A [facility] POCT GLUCOSE (AUTOMATED) 2022-12-05 16:52:00 Mrazek, A [facility] DUPLEX VENOUS LEGS BILATERAL - BY VASCULAR LAB 2022-12-05 15:03:15 Matthew Gloria [facility] POCT GLUCOSE (AUTOMATED) 2022-12-05 13:09:00 Tulio Collins [facility] PHOSPHORUS 2022-12-05 09:52:00 Tamikodustin [facility] MAGNESIUM 2022-12-05 09:52:00 [facility]OLIC PANEL (NA, K, CL, CO2, GLUCOSE, BUN, CREATININE, CA) 2022-12-05 09:52:00 Yoko [facility] CBC WITH DIFF 2022-12-05 09:52:00 [facility] 2022-12-05 01:40:00 Tulio Collins [facility] POCT GLUCOSE (AUTOMATED) 2022-12-04 22:58:00 Tulio Collins [facility] POCT GLUCOSE (AUTOMATED) 2022-12-04 17:05:00 Tulio Collins [facility] POCT GLUCOSE (AUTOMATED) 2022-12-04 13:05:00 Tulio Collins [facility] PHOSPHORUS 2022-12-04 10:11:00 [facility] 2022-12-04 10:11:00 [facility]OLIC [facility] (NA, K, CL, CO2, GLUCOSE, BUN, CREATININE, CA) 2022-12-04 10:11:00 Yoko [facility] CBC WITH DIFF 2022-12-04 10:11:00 [facility]) 2022-12-04 09:14:00 MraTulio ramirez [facility] POCT GLUCOSE (AUTOMATED) 2022-12-04 05:00:00 Tulio Collins [facility] POCT GLUCOSE (AUTOMATED) 2022-12-04 01:09:00 Tulio Collins [facility] POCT GLUCOSE (AUTOMATED) 2022-12-03 21:47:00 Tulio Collins [facility] POCT GLUCOSE (AUTOMATED) 2022-12-03 16:52:00 Mraashley, A [facility] POCT GLUCOSE (AUTOMATED) 2022-12-03 16:52:00 Mrazemeryl, A [facility] POCT GLUCOSE (AUTOMATED) 2022-12-03 12:14:00 Mraashley, A [facility] POCT GLUCOSE (AUTOMATED) 2022-12-03 12:14:00 Tulio Collins [facility] PHOSPHORUS 2022-12-03 09:20:00 Yoko [facility] MAGNESIUM 2022-12-03 09:20:00 [facility]IC MET[facility]OLIC PANEL (NA, K, CL, CO2, GLUCOSE, BUN, CREATININE, CA) 2022-12-03 09:20:00 Yoko [facility] CBC WITH DIFF 2022-12-03 09:20:00 [facility]22-12-03 09:20:00 [facility] 2022-12-03 09:20:00 [facility] BASIC METABOLIC PANEL (NA, K, CL, CO2, GLUCOSE, BUN, CREATININE, CA) 2022-12-03 09:20:00 Yoko [facility] CBC WITH DIFF 2022-12-03 09:20:00 [facility] (AUTOMATED) 2022-12-03 09:18:00 Mraashley, A [facility] POCT GLUCOSE (AUTOMATED) 2022-12-03 09:18:00 Mrazek, A [facility] POCT GLUCOSE (AUTOMATED) 2022-12-03 05:26:00 Mrazek, A [facility] POCT GLUCOSE (AUTOMATED) 2022-12-03 05:26:00 Mrazek, A [facility] POCT GLUCOSE (AUTOMATED) 2022-12-03 04:09:00 Mrazek, A [facility] POCT GLUCOSE (AUTOMATED) 2022-12-03 04:09:00 Mrazek, A [facility] POCT GLUCOSE (AUTOMATED) 2022-12-03 02:29:00 Mrazek, A [facility] POCT GLUCOSE (AUTOMATED) 2022-12-03 02:29:00 Mrazek, A [facility] POCT GLUCOSE (AUTOMATED) 2022-12-03 00:31:00 Mrazek, A [facility] POCT GLUCOSE (AUTOMATED) 2022-12-03 00:31:00 Mrazek, A [facility] POCT GLUCOSE (AUTOMATED) 2022-12-03 00:31:00 Mrazek, A [facility] POCT GLUCOSE (AUTOMATED) 2022-12-02 20:43:00 Mrazek, A [facility] POCT GLUCOSE (AUTOMATED) 2022-12-02 20:43:00 Mrazek, A [facility] POCT GLUCOSE (AUTOMATED) 2022-12-02 20:43:00 Mrazek, A [facility] DEBRIDEMENT PERINEUM 2022-12-02 18:05:00 Tenzin [facility] DEBRIDEMENT PERINEUM 2022-12-02 18:05:00 Tenzin [facility] POCT GLUCOSE (AUTOMATED) 2022-12-02 16:57:00 Mrazek, A [facility] POCT GLUCOSE (AUTOMATED) 2022-12-02 16:57:00 Mrazek, A [facility] POCT GLUCOSE (AUTOMATED) 2022-12-02 16:57:00 Mrazek, A [facility] POCT GLUCOSE (AUTOMATED) 2022-12-02 15:50:00 Mrazek, A [facility] POCT GLUCOSE (AUTOMATED) 2022-12-02 15:50:00 Mrazek, A [facility] POCT GLUCOSE (AUTOMATED) 2022-12-02 15:50:00 Mrazek, A [facility] POCT GLUCOSE (AUTOMATED) 2022-12-02 14:29:00 Mrazek, A [facility] POCT GLUCOSE (AUTOMATED) 2022-12-02 14:29:00 Mrazek, A [facility] POCT GLUCOSE (AUTOMATED) 2022-12-02 14:29:00 Tulio Collins [facility] POCT GLUCOSE (AUTOMATED) 2022-12-02 12:47:00 Tulio Collins [facility] POCT GLUCOSE (AUTOMATED) 2022-12-02 12:47:00 Tulio Collins [facility] POCT GLUCOSE (AUTOMATED) 2022-12-02 12:47:00 Tulio Collins [facility] PHOSPHORUS 2022-12-02 09:38:00 Tamikodustin [facility] MAGNESIUM 2022-12-02 09:38:00 [facility] BASIC METABOLIC PANEL (NA, K, CL, CO2, GLUCOSE, BUN, CREATININE, CA) 2022-12-02 09:38:00 Yoko [facility] CBC WITH DIFF 2022-12-02 09:38:00 Yoko [facility] PHOSPHORUS 2022-12-02 09:38:00 Yoko [facility] MAGNESIUM 2022-12-02 09:38:00 [facility] BASIC METABOLIC PANEL (NA, K, CL, CO2, GLUCOSE, BUN, CREATININE, CA) 2022-12-02 09:38:00 Yoko [facility] CBC WITH DIFF 2022-12-02 09:38:00 Yoko [facility] PHOSPHORUS 2022-12-02 09:38:00 Yoko [facility] MAGNESIUM 2022-12-02 09:38:00 [facility] BASIC METABOLIC PANEL (NA, K, CL, CO2, GLUCOSE, BUN, CREATININE, CA) 2022-12-02 09:38:00 Yoko [facility] CBC WITH DIFF 2022-12-02 09:38[facility] 2022-12-02 09:35:00 Tulio Collins [facility] POCT GLUCOSE (AUTOMATED) 2022-12-02 09:35:00 Tulio Collins [facility] POCT GLUCOSE (AUTOMATED) 2022-12-02 09:35:00 Mrazek, A [facility] POCT GLUCOSE (AUTOMATED) 2022-12-02 08:16:00 Mrazek, A [facility] POCT GLUCOSE (AUTOMATED) 2022-12-02 08:16:00 Mrazek, A [facility] POCT GLUCOSE (AUTOMATED) 2022-12-02 08:16:00 Mrazek, A [facility] POCT GLUCOSE (AUTOMATED) 2022-12-02 07:10:00 Mrazek, A [facility] POCT GLUCOSE (AUTOMATED) 2022-12-02 07:10:00 Mrazek, A [facility] POCT GLUCOSE (AUTOMATED) 2022-12-02 07:10:00 Mrazek, A [facility] POCT GLUCOSE (AUTOMATED) 2022-12-02 06:10:00 Mrazek, A [facility] POCT GLUCOSE (AUTOMATED) 2022-12-02 06:10:00 Mrazek, A [facility] POCT GLUCOSE (AUTOMATED) 2022-12-02 06:10:00 Mrazek, A [facility] POCT GLUCOSE (AUTOMATED) 2022-12-02 05:32:00 Mrazek, A [facility] POCT GLUCOSE (AUTOMATED) 2022-12-02 05:32:00 Mrazek, A [facility] POCT GLUCOSE (AUTOMATED) 2022-12-02 05:32:00 Mrazek, A [facility] POCT GLUCOSE (AUTOMATED) 2022-12-02 04:52:00 Mrazek, A [facility] POCT GLUCOSE (AUTOMATED) 2022-12-02 04:52:00 Mrazek, A [facility] POCT GLUCOSE (AUTOMATED) 2022-12-02 04:52:00 Mrazek, A [facility] POCT GLUCOSE (AUTOMATED) 2022-12-02 01:25:00 Mrazek, A [facility] POCT GLUCOSE (AUTOMATED) 2022-12-02 01:25:00 Mrazek, A [facility] POCT GLUCOSE (AUTOMATED) 2022-12-02 01:25:00 Mrazek, A [facility] POCT GLUCOSE (AUTOMATED) 2022-12-01 22:21:00 Mrazek, A [facility] POCT GLUCOSE (AUTOMATED) 2022-12-01 22:21:00 Mrazek, A [facility] POCT GLUCOSE (AUTOMATED) 2022-12-01 22:21:00 Mrazek, A [facility] POCT GLUCOSE (AUTOMATED) 2022-12-01 21:51:00 Mrazek, A [facility] POCT GLUCOSE (AUTOMATED) 2022-12-01 21:51:00 Mrazek, A [facility] POCT GLUCOSE (AUTOMATED) 2022-12-01 21:51:00 Mrazek, A [facility] POCT GLUCOSE (AUTOMATED) 2022-12-01 21:38:00 Mrazek, A [facility] POCT GLUCOSE (AUTOMATED) 2022-12-01 21:38:00 Mrazek, A [facility] POCT GLUCOSE (AUTOMATED) 2022-12-01 21:38:00 Mrazek, A [facility] FUNGUS (ROUTINE) CULTURE 2022-12-01 17:02:00 Maggie Butt [facility] TISSUE CULTURE(AEROBIC/ANAEROBIC) 2022-12-01 17:02:00 Maggie Dumont [facility] FUNGUS (ROUTINE) CULTURE 2022-12-01 17:02:00 Maggie Butt [facility] TISSUE CULTURE(AEROBIC/ANAEROBIC) 2022-12-01 17:02:00 Maggie Dumont [facility] FUNGUS (ROUTINE) CULTURE 2022-12-01 17:02:00 Mgagie Butt [facility] TISSUE CULTURE(AEROBIC/ANAEROBIC) 2022-12-01 17:02:00 Maggie Dumont [facility] FUNGUS (ROUTINE) CULTURE 2022-12-01 16:59:00 Maggie Butt [facility] TISSUE CULTURE(AEROBIC/ANAEROBIC) 2022-12-01 16:59:00 Maggie Dumont [facility] FUNGUS (ROUTINE) CULTURE 2022-12-01 16:59:00 Maggie Butt [facility] TISSUE CULTURE(AEROBIC/ANAEROBIC) 2022-12-01 16:59:00 Maggie Dumont [facility] FUNGUS (ROUTINE) CULTURE 2022-12-01 16:59:00 Maggie Butt [facility] TISSUE CULTURE(AEROBIC/ANAEROBIC) 2022-12-01 16:59:00 Maggie Dumont [facility] VBG+VCOOX+NA+K+GLU+CA2+ 2022-12-01 16:22:00 Karol Collins [facility] VBG+VCOOX+NA+K+GLU+CA2+ 2022-12-01 16:22:00 Karol Collins [facility] WOUND DEBRIDEMENT 2022-12-01 15:28:00 Sa sandra Dumont Jami [facility] WOUND DEBRIDEMENT 2022-12-01 15:28:00 Sa sandra Dumont Jami [facility] PHOSPHORUS 2022-12-01 15:26:00 Mac Rodríguez [facility] MAGNESIUM 2022-12-01 15:26:00 Mac Rodríguez [facility] HEPATIC FUNCTION PANEL (73380) (ALB,T.PRO,BILI T,BU/BC,ALT,AST,ALK PHOS) 2022-12-01 15:26:00 Maggie Dumont [facility] BASIC METABOLIC PANEL (NA, K, CL, CO2, GLUCOSE, BUN, CREATININE, CA) 2022-12-01 15:26:00 Mac Rodríguez [facility] CBC WITH DIFF 2022-12-01 15:26:00 [facility] 2022-12-01 15:26:00 Mac Rodríguez [place] [facility]UM 2022-12-01 15:26:00 Mac Rodríguez [facility] HEPATIC FUNCTION PANEL (82858) (ALB,T.PRO,BILI T,BU/BC,ALT,AST,ALK PHOS) 2022-12-01 15:26:00 Maggie Dumont [facility] BASIC METABOLIC PANEL (NA, K, CL, CO2, GLUCOSE, BUN, CREATININE, CA) 2022-12-01 15:26:00 [facility] CBC WITH DIFF 2022-12-01 15:26:00 Mac [facility] 2022-12-01 15:26:00 Mac Rodríguez Uni [facility] MAGNESIUM 2022-12-01 15:26:00 Anne [facility] HEPATIC FUNCTION PANEL (03309) (ALB,T.PRO,BILI T,BU/BC,ALT,AST,ALK PHOS) 2022-12-01 15:26:00 Maggie Dumont [facility] BASIC METABOLIC PANEL (NA, K, CL, CO2, GLUCOSE, BUN, CREATININE, CA) 2022-12-01 15:26:00 Anne [facility] CBC WITH DIFF 2022-12-01 15:26:00 Mac Rodríguez Un [facility] POCT GLUCOSE (AUTOMATED) 2022-12-01 12:57:00 Dennis, Tulio [facility] POCT GLUCOSE (AUTOMATED) 2022-12-01 12:57:00 Mrazek, A [facility] POCT GLUCOSE (AUTOMATED) 2022-12-01 12:57:00 Mrazek, A [facility] POCT GLUCOSE (AUTOMATED) 2022-12-01 11:22:00 Mrazek, A [facility] POCT GLUCOSE (AUTOMATED) 2022-12-01 11:22:00 Mrazek, A [facility] POCT GLUCOSE (AUTOMATED) 2022-12-01 11:22:00 Mrazek, A [facility] POCT GLUCOSE (AUTOMATED) 2022-12-01 10:54:00 Mraashley, A [facility] POCT GLUCOSE (AUTOMATED) 2022-12-01 10:54:00 Mrazek, A [facility] POCT GLUCOSE (AUTOMATED) 2022-12-01 10:54:00 Mrazek, A [facility] POCT GLUCOSE (AUTOMATED) 2022-12-01 09:52:00 Mrazek, A [facility] POCT GLUCOSE (AUTOMATED) 2022-12-01 09:52:00 Mrazek, A [facility] POCT GLUCOSE (AUTOMATED) 2022-12-01 09:52:00 Mrazek, A [facility] POCT GLUCOSE (AUTOMATED) 2022-12-01 04:12:00 Mrazek, A [facility] POCT GLUCOSE (AUTOMATED) 2022-12-01 04:12:00 Mrazek, A [facility] POCT GLUCOSE (AUTOMATED) 2022-12-01 04:12:00 Mrazek, A [facility] POCT GLUCOSE (AUTOMATED) 2022-12-01 01:04:00 Mrazek, A [facility] POCT GLUCOSE (AUTOMATED) 2022-12-01 01:04:00 Mrazek, A [facility] POCT GLUCOSE (AUTOMATED) 2022-12-01 01:04:00 Mrazek, A [facility] POCT GLUCOSE (AUTOMATED) 2022-11-30 21:18:00 Mrazek, A [facility] POCT GLUCOSE (AUTOMATED) 2022-11-30 21:18:00 Mrazek, A [facility] POCT GLUCOSE (AUTOMATED) 2022-11-30 21:18:00 Mrazek, A [facility] POCT GLUCOSE (AUTOMATED) 2022-11-30 21:18:00 Mrazek, A [facility] POCT GLUCOSE (AUTOMATED) 2022-11-30 17:18:00 Mrazek, A [facility] POCT GLUCOSE (AUTOMATED) 2022-11-30 17:18:00 Mrazek, A [facility] POCT GLUCOSE (AUTOMATED) 2022-11-30 17:18:00 Mrazek, A [facility] POCT GLUCOSE (AUTOMATED) 2022-11-30 17:18:00 Mrazek, A [facility] POCT GLUCOSE (AUTOMATED) 2022-11-30 15:52:00 Mrazek, A [facility] POCT GLUCOSE (AUTOMATED) 2022-11-30 15:52:00 Mrazek, A [facility] POCT GLUCOSE (AUTOMATED) 2022-11-30 15:52:00 Mrazek, A [facility] POCT GLUCOSE (AUTOMATED) 2022-11-30 15:52:00 Mrazek, A [facility] POCT GLUCOSE (AUTOMATED) 2022-11-30 13:28:00 Mrazek, A [facility] POCT GLUCOSE (AUTOMATED) 2022-11-30 13:28:00 Mrazek, A [facility] POCT GLUCOSE (AUTOMATED) 2022-11-30 13:28:00 Mrazek, A [facility] POCT GLUCOSE (AUTOMATED) 2022-11-30 13:28:00 Mrazek, A [facility] PHOSPHORUS 2022-11-30 08:21:00 Jewel [facility] MAGNESIUM 2022-11-30 08:21:00 Jewel [facility] BASIC METABOLIC PANEL (NA, K, CL, CO2, GLUCOSE, BUN, CREATININE, CA) 2022-11-30 08:21:00 [facility] 2022-11-30 08:21:00 Maribel Holloway [facility] AC PANEL 20 + LACTIC ACID 2022-11-30 08:21:00 Vianey Holloway [facility] PHOSPHORUS 2022-11-30 08:21:00 [facility]-11-30 08:21:00 Jewel [facility] BASIC METABOLIC PANEL (NA, K, CL, CO2, GLUCOSE, BUN, CREATININE, CA) 2022-11-30 08:21:00 [facility]FF 2022-11-30 08:21:00 Jewel [facility] AC PANEL 20 + LACTIC ACID 2022-11-30 08:21:00 Vianey Holloway [facility] PHOSPHORUS 2022-11-30 08:21:00 [facility] 2022-11-30 08:21:00 Jewel [facility] BASIC METABOLIC PANEL (NA, K, CL, CO2, GLUCOSE, BUN, CREATININE, CA) 2022-11-30 08:21:00 [facility] WITH DIFF 2022-11-30 08:21:00 eJwel [facility] AC PANEL 20 + LACTIC ACID 2022-11-30 08:21:00 Vianey Holloway [facility] PHOSPHORUS 2022-11-30 08:21:00 [facility] 2022-11-30 08:21:00 Jewel [facility] BASIC METABOLIC PANEL (NA, K, CL, CO2, GLUCOSE, BUN, CREATININE, CA) 2022-11-30 08:21:00 Jewel [facility] CBC WITH DIFF 2022-11-30 08:21:00 Jewel [facility] AC PANEL 20 + LACTIC ACID 2022-11-30 08:21:00 Vianey Holloway [facility] POCT GLUCOSE (AUTOMATED) 2022-11-30 08:19:00 Mrazek, Tulio [facility] POCT GLUCOSE (AUTOMATED) 2022-11-30 08:19:00 Mrazek, A [facility] POCT GLUCOSE (AUTOMATED) 2022-11-30 08:19:00 Mrazek, A [facility] POCT GLUCOSE (AUTOMATED) 2022-11-30 08:19:00 Mrazek, A [facility] ASPIRATE OR ABSCESS CULTURE(AEROBIC/ANAEROBIC) 2022-11-30 05:55:00 Mrazek, [facility] FUNGUS (ROUTINE) CULTURE 2022-11-30 05:55:00 Mrazek, A [facility] ASPIRATE OR ABSCESS CULTURE(AEROBIC/ANAEROBIC) 2022-11-30 05:55:00 Mrazek, Ayala [facility] FUNGUS (ROUTINE) CULTURE 2022-11-30 05:55:00 Mrazek, A [facility] ASPIRATE OR ABSCESS CULTURE(AEROBIC/ANAEROBIC) 2022-11-30 05:55:00 Mrazek, Ayala [facility] FUNGUS (ROUTINE) CULTURE 2022-11-30 05:55:00 Mrazek, A [facility] ASPIRATE OR ABSCESS CULTURE(AEROBIC/ANAEROBIC) 2022-11-30 05:55:00 Mrazek, [facility] FUNGUS (ROUTINE) CULTURE 2022-11-30 05:55:00 Mrazek, A [facility] ABG+COOX+NA+K+GLU+CA2+ 2022-11-30 05:47:00 Mrazek, [facility] ABG+COOX+NA+K+GLU+CA2+ 2022-11-30 05:47:00 Mrazek, [facility] ABG+COOX+NA+K+GLU+CA2+ 2022-11-30 05:47:00 Mrazek, [facility] INCISION AND DRAINAGE BUTTOCK 2022-11-30 04:42:00 Mrazek, [facility] DEBRIDEMENT PERINEUM 2022-11-30 04:42:00 Mrazek, [facility] INCISION AND DRAINAGE BUTTOCK 2022-11-30 04:42:00 Mrazek, [facility] DEBRIDEMENT PERINEUM 2022-11-30 04:42:00 Mrazek, [facility] AC PANEL 20 + LACTIC ACID 2022-11-30 04:19:00 Vianey Holloway [facility] AC PANEL 20 + LACTIC ACID 2022-11-30 04:19:00 Vianey Holloway [facility] AC PANEL 20 + LACTIC ACID 2022-11-30 04:19:00 Vianey Holloway [facility] AC PANEL 20 + LACTIC ACID 2022-11-30 04:19:00 Vianey Holloway [facility] CREATININE, URINE RANDOM 2022-11-30 04:12:00 Mrazek, A [facility] SODIUM, URINE RANDOM 2022-11-30 04:12:00 Mrazek, [facility] CREATININE, URINE RANDOM 2022-11-30 04:12:00 Mrazek, A [facility] SODIUM, URINE RANDOM 2022-11-30 04:12:00 Mrazek, [facility] CREATININE, URINE RANDOM 2022-11-30 04:12:00 Mrazek, A [facility] SODIUM, URINE RANDOM 2022-11-30 04:12:00 Mrazek, [facility] CREATININE, URINE RANDOM 2022-11-30 04:12:00 Mrazek, A [facility] SODIUM, URINE RANDOM 2022-11-30 04:12:00 Mrazek, [facility] MRSA / MSSA SCREEN BY PCR, [facility] 2022-11-30 03:58:00 Green, [facility] MRSA / MSSA SCREEN BY PCR, [facility] 2022-11-30 03:58:00 Green, [facility] MRSA / MSSA SCREEN BY PCR, [facility] 2022-11-30 03:58:00 Green, [facility] MRSA / MSSA SCREEN BY PCR, [facility] 2022-11-30 03:58:00 Green, [facility] POCT GLUCOSE (AUTOMATED) 2022-11-30 03:18:00 Mrazek, A [facility] POCT GLUCOSE (AUTOMATED) 2022-11-30 03:18:00 Mrazek, A [facility] POCT GLUCOSE (AUTOMATED) 2022-11-30 03:18:00 Mrazek, A [facility] POCT GLUCOSE (AUTOMATED) 2022-11-30 03:18:00 Mrazek, A [facility] URINE CULTURE 2022-11-30 00:37:00 Mrazek, Ayala [facility] URINE CULTURE 2022-11-30 00:37:00 Mrazek, Ayala [facility] URINE CULTURE 2022-11-30 00:37:00 Mrazek, Ayala [facility] VITAMIN D, 25-OH 2022-11-30 00:28:00 Mrazek, Ayala [facility] LACTIC ACID WHOLE BLOOD 2022-11-30 00:28:00 July Agudelo [facility] VITAMIN D, 25-OH 2022-11-30 00:28:00 Ayala Collins [facility] LACTIC ACID WHOLE BLOOD 2022-11-30 00:28:00 July Agudelo [facility] VITAMIN D, 25-OH 2022-11-30 00:28:00 Ayala Collins [facility] LACTIC ACID WHOLE BLOOD 2022-11-30 00:28:00 July Agudelo [facility] VITAMIN D, 25-OH 2022-11-30 00:28:00 Ayala Collins [facility] LACTIC ACID WHOLE BLOOD 2022-11-30 00:28:00 July Agudelo [facility] POCT GLUCOSE (AUTOMATED) 2022-11-29 22:17:00 Norman Agudelo [facility] POCT GLUCOSE (AUTOMATED) 2022-11-29 22:17:00 Norman Agudelo [facility] POCT GLUCOSE (AUTOMATED) 2022-11-29 22:17:00 Norman Agudelo [facility] POCT GLUCOSE (AUTOMATED) 2022-11-29 22:17:00 Norman Agudelo [facility] BETA HYDROXY-BUTYRATE 2022-11-29 22:07:[address] [facility] HB ABO GROUPING 2022-11-29 22:07:00 Ayala Collins [facility] BETA HYDROXY-BUTYRATE 2022-11-29 22:07:[address] [facility] HB ABO GROUPING 2022-11-29 22:07:00 Ayala Collins [facility] BETA HYDROXY-BUTYRATE 2022-11-29 22:07:[address] [facility] HB ABO GROUPING 2022-11-29 22:07:00 Ayala Collins [facility] BETA HYDROXY-BUTYRATE 2022-11-29 22:07:[address] [facility] HB ABO GROUPING 2022-11-29 22:07:00 Ayala Collins [facility] POCT GLUCOSE (AUTOMATED) 2022-11-29 21:05:00 Norman Agudelo [facility] POCT GLUCOSE (AUTOMATED) 2022-11-29 21:05:00 Norman Agudelo [facility] POCT GLUCOSE (AUTOMATED) 2022-11-29 21:05:00 Norman Agudelo [facility] POCT GLUCOSE (AUTOMATED) 2022-11-29 21:05:00 Norman Agudelo [facility] BLOOD CULTURE SCREEN 2022-11-29 20:57:00 Jules Agudelo [facility] BLOOD CULTURE SCREEN 2022-11-29 20:57:00 Jules Agudelo [facility] BLOOD CULTURE SCREEN 2022-11-29 20:57:00 Jules Agudelo [facility] BLOOD CULTURE SCREEN 2022-11-29 20:57:00 Jules Agudelo [facility] LACTIC ACID WHOLE BLOOD 2022-11-29 20:56:00 CacJuly mathis [facility] LACTIC ACID WHOLE BLOOD 2022-11-29 20:56:00 CacJuly mathis [facility] LACTIC ACID WHOLE BLOOD 2022-11-29 20:56:00 CacJuly mathis [facility] LACTIC ACID WHOLE BLOOD 2022-11-29 20:56:00 July Agudelo [facility] CT ABDOMEN PELVIS WO CONTRAST 2022-11-29 18:15:11 Cecile Agudelo [facility] CT ABDOMEN PELVIS WO CONTRAST 2022-11-29 18:15:11 Cecile Agudelo [facility] CT ABDOMEN PELVIS WO CONTRAST 2022-11-29 18:15:11 Cecile Agudelo [facility] CT ABDOMEN PELVIS WO CONTRAST 2022-11-29 18:15:11 Cecile Agudelo [facility] LIPASE 2022-11-29 17:05:00 Cecile Agudelo [facility] HEPATIC FUNCTION PANEL (31398) (ALB,T.PRO,BILI T,BU/BC,ALT,AST,ALK PHOS) 2022-11-29 17:05:00 Cecile Agudelo [facility] BASIC METABOLIC PANEL (NA, K, CL, CO2, GLUCOSE, BUN, CREATININE, CA) 2022-11-29 17:05:00 Cecile Agudelo [facility] IRON PANEL 2022-11-29 17:05:00 Ayala Collins [facility] CBC WITH DIFF 2022-11-29 17:05:00 Cecile Agudelo [facility] GLYCOSYLATED HEMOGLOBIN (A1C) 2022-11-29 17:05:00 Ayala Collins [facility] PROTHROMBIN TIME / INR 2022-11-29 17:05:00 Omar Agudelo [facility] ACTIVATED PARTIAL THRMPLAS DARI 2022-11-29 17:05:00 Cecile Agudelo [facility] URINALYSIS 2022-11-29 17:05:00 Cecile Agudelo [facility] RAPID INFLUENZA A/B 2022-11-29 17:05:00 Cecile Agudelo [facility] COVID-19 (ID NOW RAPID TESTING) 2022-11-29 17:05:00 Cecile Agudelo [facility] LAB ONLY COVID INTERPRETATION 2022-11-29 17:05:00 Cecile Agudelo [facility] LIPASE 2022-11-29 17:05:00 Cecile Agudelo [facility] HEPATIC FUNCTION PANEL ([id number]) (ALB,T.PRO,BILI T,BU/BC,ALT,AST,ALK PHOS) 2022-11-29 17:05:00 Cecile Agudelo [facility] BASIC METABOLIC PANEL (NA, K, CL, CO2, GLUCOSE, BUN, CREATININE, CA) 2022-11-29 17:05:00 Cecile Agudelo [facility] IRON PANEL 2022-11-29 17:05:00 Ayala Collins [facility] CBC WITH DIFF 2022-11-29 17:05:00 Cecile Agudelo [facility] GLYCOSYLATED HEMOGLOBIN (A1C) 2022-11-29 17:05:00 Ayala Collins [facility] PROTHROMBIN TIME / INR 2022-11-29 17:05:00 Omar Agudelo [facility] ACTIVATED PARTIAL THRMPLAS DARI 2022-11-29 17:05:00 Cecile Agudelo [facility] URINALYSIS 2022-11-29 17:05:00 Cecile Agudelo [facility] RAPID INFLUENZA A/B 2022-11-29 17:05:00 Cecile Agudelo [facility] COVID-19 (ID NOW RAPID TESTING) 2022-11-29 17:05:00 Cecile Agudelo [facility] LAB ONLY COVID INTERPRETATION 2022-11-29 17:05:00 Cecile Agudelo [facility] LIPASE 2022-11-29 17:05:00 Cecile Agudelo [facility] HEPATIC FUNCTION PANEL (07058) (ALB,T.PRO,BILI T,BU/BC,ALT,AST,ALK PHOS) 2022-11-29 17:05:00 Cecile Agudelo [facility] BASIC METABOLIC PANEL (NA, K, CL, CO2, GLUCOSE, BUN, CREATININE, CA) 2022-11-29 17:05:00 Cecile Agudelo [facility] IRON PANEL 2022-11-29 17:05:00 Ayala Collins [facility] CBC WITH DIFF 2022-11-29 17:05:00 Cecile Agudelo [facility] GLYCOSYLATED HEMOGLOBIN (A1C) 2022-11-29 17:05:00 Ayala Collins [facility] PROTHROMBIN TIME / INR 2022-11-29 17:05:00 Omar Agudelo [facility] ACTIVATED PARTIAL THRMPLAS DARI 2022-11-29 17:05:00 Cecile Agudelo [facility] URINALYSIS 2022-11-29 17:05:00 Cecile Agudelo [facility] RAPID INFLUENZA A/B 2022-11-29 17:05:00 Cecile Agudelo [facility] COVID-19 (ID NOW RAPID TESTING) 2022-11-29 17:05:00 Cecile Agudelo [facility] LAB ONLY COVID INTERPRETATION 2022-11-29 17:05:00 Cecile Agudelo [facility] LIPASE 2022-11-29 17:05:00 Cecile Agudelo [facility] HEPATIC FUNCTION PANEL ([id number]) (ALB,T.PRO,BILI T,BU/BC,ALT,AST,ALK PHOS) 2022-11-29 17:05:00 Cecile Agudelo [facility] BASIC METABOLIC PANEL (NA, K, CL, CO2, GLUCOSE, BUN, CREATININE, CA) 2022-11-29 17:05:00 Cecile Agudelo [facility] IRON PANEL 2022-11-29 17:05:00 Ayala Collins [facility] CBC WITH DIFF 2022-11-29 17:05:00 Cecile Agudelo [facility] GLYCOSYLATED HEMOGLOBIN (A1C) 2022-11-29 17:05:00 Ayala Collins [facility] PROTHROMBIN TIME / INR 2022-11-29 17:05:00 Omar Agudelo [facility] ACTIVATED PARTIAL THRMPLAS DARI 2022-11-29 17:05:00 Cecile Agudelo [facility] URINALYSIS 2022-11-29 17:05:00 Cecile Agudelo [facility] RAPID INFLUENZA A/B 2022-11-29 17:05:00 Cecile Agudelo [facility] COVID-19 (ID NOW RAPID TESTING) 2022-11-29 17:05:00 Cecile Agudelo [facility] LAB ONLY COVID INTERPRETATION 2022-11-29 17:05:00 Cecile Agudelo [facility] POCT GLUCOSE (AUTOMATED) 2022-11-29 16:49:00 Norman Agudelo [facility] POCT GLUCOSE (AUTOMATED) 2022-11-29 16:49:00 Norman Agudelo [facility] POCT GLUCOSE (AUTOMATED) 2022-11-29 16:49:00 Norman Agudelo [facility] POCT GLUCOSE (AUTOMATED) 2022-11-29 16:49:00 Norman Agudelo [facility] CONSENT/REFUSAL FOR DIAGNOSIS AND TREATMENT 2022-11-29 16:16:00 Doctor Unassigned, Van [facility] CONSENT/REFUSAL FOR DIAGNOSIS AND TREATMENT 2022-11-29 16:16:00 Doctor Unassigned, Van [facility] CONSENT/REFUSAL FOR DIAGNOSIS AND TREATMENT 2022-11-29 16:16:00 Doctor Unassigned, Van [facility] CONSENT/REFUSAL FOR DIAGNOSIS AND TREATMENT 2022-11-29 16:16:00 Doctor Unassigned, Van [facility] CRITICAL CARE 2022-11-29 16:12:00 Cecile Agudelo [facility] CRITICAL CARE 2022-11-29 16:12:00 Cecile Agudelo [facility] CRITICAL CARE 2022-11-29 16:12:00 Cecile Agudelo [facility] CRITICAL CARE 2022-11-29 16:12:00 Cecile Agudelo [facility] HOSPITAL ADMISSION 2022-11-29 05:01:00 Doctor Un assigned, Van [facility] HOSPITAL ADMISSION 2022-11-29 05:01:00 Doctor Un assigned, Van [facility] HOSPITAL ADMISSION 2022-11-29 05:01:00 Doctor Un assigned, Van [facility] HOSPITAL ADMISSION 2022-11-29 05:01:00 Doctor Un assigned, Van [facility] CT ANGIOGRAM ABDOMEN/PELVIS 2022-11-25 22:14:00 Jose Luis Alberto [facility] XR KNEE 3 VW LEFT 2022-11-25 21:27:00 Allen Alberto [facility] URINALYSIS 2022-11-25 21:10:00 Jose Luis Alberto [facility] TROPONIN I 2022-11-25 20:24:00 Jose Luis Alberto [facility] CBC WITH DIFF 2022-11-25 20:24:00 Jose Luis Alberto [facility] N-TERMINAL PRO-BNP 2022-11-25 20:24:00 Ashu Alberto [facility] CONSENT/REFUSAL FOR DIAGNOSIS AND TREATMENT 2022-11-25 19:54:12 Doctor Unassigned, Van [facility] PATIENT FINANCIAL POLICY 2022-10-29 20:28:56 Doctor Unassigned, Van [facility] ASPIRATE OR ABSCESS CULTURE(AEROBIC/ANAEROBIC) 2022-09-23 22:12:00 Art Garcia [facility] WOUND/ASPIRATE OR ABSCESS CULTURE 2022-09-23 22:12:00 Jose [facility] ASPIRATE OR ABSCESS CULTURE(AEROBIC/ANAEROBIC) 2022-09-07 20:44:00 Art Garcia [facility] WOUND/ASPIRATE OR ABSCESS CULTURE 2022-09-07 20:44:00 Jose [facility] COMP. METABOLIC PANEL (59393) 2022-09-01 20:36:00 Jill Barrett [facility] CBC WITH DIFF 2022-09-01 20:36:00 [facility] 2022-07-30 19:06:00 Adal Santoro [facility] MASS EXCISION 2022-07-30 18:32:00 [facility] PO[facility] GLUCOSE (AUTOMATED) 2022-07-30 18:06:00 KokohbDudley carlos i [facility] POCT GLUCOSE (AUTOMATED) 2022-07-30 18:06:00 KokohbDudley carlos i [facility] ASSIGNMENT OF BENEFITS 2022-07-30 17:21:43 Docto r Unassigned, Van [facility] MR ANKLE RIGHT W WO CONTRAST 2022-07-08 15:26:48 Marian Castillo [facility] XR FOOT 3+ VW BILATERAL 2022-07-05 15:13:00 Marian Balderas [facility] XR ANKLE 3+ VW RIGHT 2022-07-02 02:00:12 Art Rios [facility] DUPLEX VENOUS LEG RIGHT - BY VASCULAR LAB 2022-07-01 23:40:56 Jessica Benson [facility] CONSENT/REFUSAL FOR DIAGNOSIS AND TREATMENT 2022-07-01 21:32:20 Doctor Unassigned, Van [facility] US HEAD NECK 2022-06-24 20:52:00 Sima Lloyd [facility] POCT GLUCOSE (AUTOMATED) 2022-06-08 15:05:00 Ely Hess [facility] COLONOSCOPY 2022-06-08 13:25:00 Ely Hess [facility] COLONOSCOPY (ENDO) 2022-06-08 12:58:[facility] 2022-06-08 12:58:34 Prema [facility] POCT GLUCOSE (AUTOMATED) 2022-06-08 12:34:00 Ely Hess [facility] POCT GLUCOSE (AUTOMATED) 2022-06-08 12:34:00 Ely Hess [facility] DAY SURGERY - ADC 2022-06-08 05:01:00 Doctor Kendra ssigned, [facility] AUTHORIZATION TO RELEASE PHI TO [facility] 2022-05-14 05:01:00 Doctor Unassigned, Van [facility] AUTHORIZATION TO RELEASE PHI TO [facility] 2022-05-14 05:01:00 Doctor Unassigned, [facility] Encounters Start Date/Time End Date/Time Encounter Type Admission Type Attending [facility] Facility Care Department Encounter ID Source 2024-07-11 15:47:41 Outpatient ACE WEBB [facility] REGINA [id number] [facility] 2021-06-30 06:46:16 Emergency [facility] [id number] [facility] 2021-06-30 04:10:20 Outpatient SCOTT RUSSELL GWYN [facility] OBO [id number] [facility] 2021-06-29 16:26:12 Outpatient KALINA SANCHEZ [facility] [id number] [facility] 2021-06-29 16:12:55 Outpatient KALINA SANCHEZ [facility] [id number] [facility] 2021-06-29 16:12:53 Outpatient KALINA SANCHEZ [facility] [id number] [facility] 2021-06-29 08:33:39 Emergency [facility] [id number] [facility] 2021-06-29 03:43:21 Emergency [facility] [id number] [facility] 2021-06-28 20:24:29 Emergency [facility] [id number] [facility] 2021-06-25 09:45:33 Outpatient SYSTEM, PROVIDER JOÃO [facility] [id number] MD Castillo bang 2024-10-16 10:30:00 2024-10-16 10:30:00 Outpatient RICK REYES [facility] [id number] [facility] 2024-09-28 14:00:00 2024-09-28 14:00:00 Outpatient RICK REYES [facility] [id number] [facility] 2024-08-01 14:00:00 2024-08-01 14:00:00 Outpatient R TODD SOLIS [facility] [id number] [facility] 2024-07-30 11:00:00 2024-07-30 11:00:00 Outpatient SIMA DE PAZ [facility] [id number] [facility] 2024-07-23 07:35:00 2024-07-25 17:07:00 Inpatient ARPAN RICCI [facility] [id number] [facility] 2024-07-23 07:35:00 2024-07-25 17:07:00 Hospital Encounter Carmen Mar i, Rama Armstrong, Robin Eisenberg, Michael [facility] [id number] [facility] 2024-07-23 10:30:00 2024-07-23 11:30:00 Surgery Carmen Mar [facility] [id number] [facility] 2024-07-20 15:30:00 2024-07-20 15:45:00 Electrician Bus Visit 2, [facility] Mehreen Buckner 2, [facility] [id number] [facility] 2024-07-20 15:30:00 2024-07-20 15:30:00 Outpatient MEHREEN HICKS [facility] [id number] [facility] 2024-07-19 11:00:00 2024-07-19 11:30:00 Office Visit Jannie De La Rosa [facility] [id number] 350.1.13.10 4.2.7.2.686 [id number] [facility] 2024-07-19 11:00:00 2024-07-19 11:00:00 Outpatient JANNIE FIGUEROA [facility] [id number] [facility] 2024-07-18 11:00:00 2024-07-18 11:00:00 Outpatient RACHEL CALDERA CHELSEA [facility] [id number] [facility] 2024-07-12 00:00:00 2024-07-18 08:08:35 Telephone Art Garcia [facility] [place] 1.2.840.114 350.1.13.10 4.2.7.2.686 [id number] [facility] 2024-07-16 16:00:00 2024-07-16 16:00:00 Outpatient JANNIE FIGUEROA [facility] [id number] [facility] 2024-07-13 00:00:00 2024-07-16 11:36:26 Telephone Rachel Medeiros [facility] 1.2.840.114 350.1.13.10 4.2.7.2.686 [id number] [facility] 2024-07-13 14:58:53 2024-07-13 23:59:00 Outpatient R LAMONT ODEN [facility] [id number] [facility] 2024-07-13 14:58:53 2024-07-13 23:59:00 Hospital Encounter Lamont Oden [facility] 1.2.840.114 350.1.13.10 4.2.7.2.686 [id number] [facility] 2024-07-10 00:00:00 2024-07-12 16:59:43 Telephone Art Garcia [facility] 1.2.840.114 350.1.13.10 4.2.7.2.686 [id number] [facility] 2024-07-11 00:00:00 2024-07-12 13:44:53 Telephone Ace Valenzuela [facility] 1.2.840.114 350.1.13.10 4.2.7.2.686 [id number] [facility] 2024-07-11 16:20:00 2024-07-11 16:20:00 Outpatient R ART GARCIA [facility] [id number] [facility] 2024-07-11 15:00:00 2024-07-11 16:07:16 Outpatient R ACE VALENZUELA [facility] [id number] [facility] 2024-07-11 15:00:00 2024-07-11 16:07:16 Office Visit Ace Valenzuela [facility] 1.2.840.114 350.1.13.10 4.2.7.2.686 [id number] [facility] 2024-07-11 14:20:00 2024-07-11 14:20:00 Outpatient R KAVINRENU ACE [facility] [id number] [facility] 2024-07-11 00:00:00 2024-07-11 12:43:53 Telephone MaryanalexanderAlyssaanthonycharlie [facility] 1.2.840.114 350.1.13.10 4.2.7.2.686 [id number] [facility] 2024-07-09 14:30:00 2024-07-09 14:30:00 [facility] 1.2.840.114 350.1.13.10 4.2.7.2.686 [id number] [facility] 2024-07-09 00:00:00 2024-07-09 14:17:36 Telephone Xochitl Rodriguez [facility] BUILDING 1.2.840.114 350.1.13.10 4.2.7.2.686 [id number] [facility] 2024-07-09 11:20:00 2024-07-09 12:07:35 Outpatient R MARISABEL BUCKNERBRUCE [facility] [id number] [facility] 2024-07-09 11:20:00 2024-07-09 11:40:00 [facility] 1.2.840.114 350.1.13.10 4.2.7.2.686 [id number] [facility] 2024-07-05 00:00:00 2024-07-05 11:36:29 Telephone Art Garcia [facility] [place] 1.2.840.114 350.1.13.10 4.2.7.2.686 [id number] [facility] 2024-07-04 00:00:00 2024-07-04 15:10:25 Telephone Lamont Oden [facility] 1.2.840.114 350.1.13.10 4.2.7.2.686 [id number] [facility] 2024-07-04 14:40:00 2024-07-04 15:00:00 Office Visit Art Garcia [facility] [place] 1.2840.114 350.1.13.10 4.2.7.2.686 [id number] [facility] 2024-07-03 00:00:00 2024-07-04 14:42:07 Telephone Prema [facility]?SEJALTulio [facility] MEDICAL OFF[facility] BUILDING 1.2840.114 350.1.13.10 4.2.7.2.686 [id number] [facility] 2024-07-04 14:40:00 2024-07-04 14:40:00 Outpatient R ART GARCIA [facility] [id number] [facility] 2024-07-04 11:30:00 2024-07-04 11:30:00 Outpatient R RACHEL MEDEIROS CHELSEA [facility] [id number] [facility] 2024-07-02 00:00:00 2024-07-04 10:21:13 Telephone Rachel Medeiros [facility] 1.20.114 350.1.13.10 4.2.7.2.686 [id number] [facility] 2024-07-03 00:00:00 2024-07-03 17:10:46 Telephone Prema [facility]?SEJALTulio [facility] MEDICAL OFF[facility] BUILDING 1.2840.114 350.1.13.10 4.2.7.2.686 [id number] [facility] 2024-07-03 14:30:00 2024-07-03 14:30:00 Outpatient R XOCHITL RODRIGUEZ SHIWAN [facility] [id number] [facility] 2024-07-03 13:00:00 2024-07-03 13:00:00 Outpatient R MEHREEN BUCKNER [facility] [id number] [facility] 2024-07-03 10:00:00 2024-07-03 10:00:00 Outpatient R XOCHITL RODRIGUEZ SHINDBeti [facility] [id number] [facility] 2024-06-29 13:45:00 2024-06-29 14:00:00 Electrician Bus Visit Lab, Katarzyna Tong, Irwin Garzon [facility] BUILD[facility] 1.2.840.114 350.1.13.10 4.2.7.2.686 [id number] [facility] 2024-06-29 13:45:00 2024-06-29 12:37:04 Outpatient R KATARZYNA DE SOUZA [facility] [id number] [facility] 2024-06-29 11:30:00 2024-06-29 12:16:29 Office Visit Katarzyna De Souza [facility]?SEJALTulio [facility] MEDICAL OFFICE BUILDING 1.2.840.114 350.1.13.10 4.2.7.2.686 [id number] [facility] 2024-06-28 08:46:29 2024-06-28 23:59:00 Outpatient R ART GARCIA [facility] [id number] [facility] 2024-06-28 08:46:29 2024-06-28 23:59:00 Hospital Encounter Art Garcia [facility] 1..840.114 350.1.13.10 4.2.7.2.686 [id number] [facility] 2024-06-28 00:00:00 2024-06-28 10:08:34 [facility]DIYA EST[facility]EZ [facility] 1.2.840.114 350.1.13.10 4.2.7.2.686 [id number] [id number] [facility] 2024-06-26 00:00:00 2024-06-27 14:16:42 Telephone [facility]YA EST[facility] 1.2.840.114 350.1.13.10 4.2.7.2.686 [id number] [facility] 2024-06-20 20:00:00 2024-06-20 20:00:00 [facility] [id number] [facility] 2024-06-20 14:40:00 2024-06-20 15:00:00 Office Visit Art Garcia [facility] 1.2.840.114 350.1.13.10 4.2.7.2.686 [id number] [facility] 2024-06-20 14:40:00 2024-06-20 14:40:00 Outpatient R ART GARCIA [facility] [id number] [facility] 2024-06-19 20:00:00 2024-06-19 20:00:00 [facility] [id number] [facility] 2024-06-12 00:00:00 2024-06-15 13:01:05 Telephone Art aGrcia [facility] 1.2.840.114 350.1.13.10 4.2.7.2.686 [id number] [facility] 2024-06-12 10:00:00 2024-06-12 10:00:00 Outpatient XOCHITL HOLCOMB SHIWAN [facility] [id number] [facility] 2024-06-11 15:00:00 2024-06-11 23:59:00 Hospital Encounter Xochitl Rodriguez [facility] 1.2840.114 350.1.13.10 4.2.7.2.686 [id number] [facility] 2024-06-08 00:00:00 2024-06-11 18:21:09 Telephone Sima Lloyd [facility]?DIYA EST[facility] MEDICAL OFFICE BUILDING 1..840.114 350.1.13.10 4.2.7.2.686 [id number] [facility] 2024-06-11 14:07:40 2024-06-11 14:59:00 Outpatient R XOCHITL RODRIGUEZ SHINDBeti [facility] [id number] [facility] 2024-06-11 14:00:00 2024-06-11 14:59:00 Hospital Encounter Xochitl Rodriguez [facility] 1..840.114 350.1.13.10 4.2.7.2.686 [id number] [facility] 2024-06-08 11:00:00 2024-06-08 11:00:00 Outpatient R XOCHITL RODRIGUEZ SHIWAN [facility] [id number] [facility] 2024-06-07 20:00:00 2024-06-07 20:00:00 Outpatient R LUIS ARMIJO [facility] [id number] [facility] 2024-06-07 00:00:00 2024-06-07 16:25:22 Telephone Xochitl Rodriguez [facility] NAL BUILDING 1.2.840.114 350.1.13.10 4.2.7.2.686 [id number] [facility] 2024-06-07 14:30:00 2024-06-07 15:10:39 Outpatient R TRACY GRIJALVA PAMELA [facility] [id number] [facility] 2024-06-07 14:30:00 2024-06-07 15:10:39 Office Visit Tracy Grijalva [facility] 1.114 350.1.13.10 4.2.7.2.686 [id number] [facility] 2024-06-04 14:30:00 2024-06-04 14:30:00 Outpatient R SIMA LLOYD [facility] [id number] [facility] 2024-06-01 13:20:00 2024-06-01 13:40:00 Office Visit Art Garcia [facility] [place] 1.114 350.1.13.10 4.2.7.2.686 [id number] [facility] 2024-06-01 13:20:00 2024-06-01 13:20:00 Outpatient R ART GARCIA [facility] [id number] [facility] 2024-05-31 15:15:00 2024-05-31 15:30:00 Electrician Bus Visit [facility] Vicente Bates [facility] 1.114 350.1.13.10 4.2.7.2.686 [id number] [facility] 2024-05-31 15:15:00 2024-05-31 15:15:00 Outpatient R VICENTE BATES [facility] [id number] [facility] 2024-05-29 12:15:00 2024-05-29 12:30:00 Electrician Bus Visit Lab, Sima Crawley Ang - Duran [facility] AYAZ ESTEVEZ MEDICAL OFFICE BUILDING 1.114 350.1.13.10 4.2.7.2.686 [id number] [facility] 2024-05-29 10:30:00 2024-05-29 11:30:18 Outpatient R SIMA LLOYD [facility] [id number] [facility] 2024-05-29 10:30:00 2024-05-29 11:30:18 Office Visit Sima Lloyd [facility] LORRIE ESTEV[facility]Z MEDICAL OFFICE BUILDING 1.2.840.114 350.1.13.10 4.2.7.2.686 [id number] [facility] 2024-05-28 11:30:00 2024-05-28 11:36:04 Electrician Bus Visit 2, [facility] Lab Peyton Man Michael 2, Adc Lab [facility] BUILDING 1.2.840.114 350.1.13.10 4.2.7.2.686 [id number] [facility] 2024-05-28 10:30:00 2024-05-28 11:13:09 Outpatient R XOCHITL RODRIGUEZ SHIWAN [facility] [id number] [facility] 2024-05-28 10:30:00 2024-05-28 11:13:09 Office Visit Xochitl Rodriguez [facility] NAL BUILDING 1.2.840.114 350.1.13.10 4.2.7.2.686 [id number] [facility] 2024-05-24 14:30:00 2024-05-24 14:45:00 Electrician Bus Visit 2, Adc Lab Vicente Bates 2, Adc Lab [facility] BUILDING 1.2.840.114 350.1.13.10 4.2.7.2.686 [id number] [facility] 2024-05-24 14:30:00 2024-05-24 14:30:00 Outpatient R VICENTE BATES [facility] [id number] [facility] 2024-05-22 00:00:00 2024-05-23 08:45:50 [facility]YA [facility] OFF[facility] BUILDING 1.2.114 350.1.13.10 4.2.7.2.686 [id number] 044 [id number] [facility] 2024-05-22 00:00:00 2024-05-22 16:34:28 Telephone Vicente Bates [facility] 1..114 350.1.13.10 4.2.7.2.686 [id number] [facility] 2024-05-18 20:00:00 2024-05-18 20:00:00 Outpatient R CONNER EAGLE STRAHIL [facility] [id number] [facility] 2024-05-17 11:40:00 2024-05-17 12:00:00 Office Visit Art Garcia [facility] [place] 1..114 350.1.13.10 4.2.7.2.686 [id number] [facility] 2024-05-17 11:40:00 2024-05-17 11:40:00 Outpatient R ART GARCIA [facility] [id number] [facility] 2024-05-11 15:00:00 2024-05-11 15:00:00 Outpatient R LIANE DIEGO [facility] [id number] [facility] 2024-05-10 11:45:00 2024-05-10 11:45:00 Outpatient R TRACY GRIJALVA PAMELA [facility] [id number] [facility] 2024-05-10 00:00:00 2024-05-10 08:43:21 [facility]?DIYA KELLEN MED[facility] OFF[facility] BUILDING 1.284.114 350.1.13.10 4.2.7.2.686 [id number] [id number] [facility] 2024-05-09 00:00:00 2024-05-09 15:36:31 Telephone Luis Felipe Aguilar [facility] 1.2.840.114 350.1.13.10 4.2.7.2.686 [id number] [facility] 2024-05-09 00:00:00 2024-05-09 08:01:08 Vicente Gould [facility] 1.2840.114 350.1.13.10 4.2.7.2.686 [id number] [facility] 2024-05-08 11:30:00 2024-05-08 11:45:00 Electrician Bus Visit Pcp-Lab Rick Rdz Pcp-Lab [facility] 1.0.114 350.1.13.10 4.2.7.2.686 [id number] [facility] 2024-05-08 09:30:00 2024-05-08 11:15:43 Outpatient R RICK RDZ [facility] [id number] [facility] 2024-05-08 09:30:00 2024-05-08 11:15:43 Office Visit Rick Rdz [facility] 1.0.114 350.1.13.10 4.2.7.2.686 [id number] [facility] 2024-05-04 00:00:00 2024-05-07 10:45:22 Telephone [facility]a [facility]?DIYA CARRENOKELLEN MEDICAL OFFICE BUILDING 1.2.114 350.1.13.10 4.2.7.2.686 [id number] [facility] 2024-05-04 20:00:00 2024-05-07 07:55:31 Outpatient R CONNER EAGLE STRAHIL [facility] [id number] [facility] 2024-05-04 20:00:00 2024-05-04 22:30:00 Electrician Bus Visit 1, [facility] Sleep Lab Bed Art Garcia Conner Eagle T 1, [facility] Sleep Lab Bed [facility] 1.2.840.114 350.1.13.10 4.2.7.2.686 [id number] [facility] 2024-05-04 13:00:00 2024-05-04 13:20:00 Office Visit Art Garcia [facility] [place] 1.2.840.114 350.1.13.10 4.2.7.2.686 [id number] [facility] 2024-04-27 15:30:00 2024-04-27 15:30:00 Outpatient R RICK RDZ [facility] [id number] [facility] 2024-04-26 00:00:00 2024-04-26 08:56:34 Telephone Lamont Oden [facility] 1.2.840.114 350.1.13.10 4.2.7.2.686 [id number] [facility] 2024-04-19 13:40:00 2024-04-19 14:00:00 Office Visit Art Garcia [facility] 1.2.840.114 350.1.13.10 4.2.7.2.686 [id number] [facility] 2024-04-19 13:40:00 2024-04-19 13:40:00 Outpatient R ART GARCIA [facility] [id number] [facility] 2024-04-18 12:00:00 2024-04-18 12:30:00 Office Visit Luis Felipe Aguilar [facility] 1.2.840.114 350.1.13.10 4.2.7.2.686 [id number] [facility] 2024-04-18 12:00:00 2024-04-18 12:00:00 Outpatient R LUIS FELIPE AGUILAR [facility] [id number] [facility] 2024-04-18 00:00:00 2024-04-18 08:07:57 Telephone Art Garcia [facility] 1.2.840.114 350.1.13.10 4.2.7.2.686 [id number] [facility] 2024-04-13 12:30:00 2024-04-13 13:00:00 Office Visit Lamont Oden [facility] 1..840.114 350.1.13.10 4.2.7.2.686 [id number] [facility] 2024-04-13 12:30:00 2024-04-13 12:30:00 Outpatient R LAMONT ODEN [facility] [id number] [facility] 2024-04-12 14:00:00 2024-04-12 14:40:00 Office Visit Art Garcia [facility] 1..840.114 350.1.13.10 4.2.7.2.686 [id number] [facility] 2024-04-12 14:00:00 2024-04-12 14:00:00 Outpatient R ART GARCIA [facility] [id number] [facility] 2024-04-06 00:00:00 2024-04-10 10:57:36 Telephone Prema [facility] [employer] [place]?SEJALTulio Birth[facility] SlamKELLEN MEDICAL OFFICE BUILDING 1..840.114 350.1.13.10 4.2.7.2.686 [id number] [facility] 2024-04-06 00:00:00 2024-04-06 17:53:29 Telephone Prema [facility] DOM[facility]?SEJALTulio [facility] MEDICAL OFFICE BUILDING 1..840.114 350.1.13.10 4.2.7.2.686 [id number] [facility] 2024-04-02 15:30:00 2024-04-02 16:11:35 Outpatient R LIANE DIEGO [facility] [id number] [facility] 2024-04-02 15:30:00 2024-04-02 16:11:35 Office Visit Liane Diego [facility] 1..114 350.1.13.10 4.2.7.2.686 [id number] [facility] 2024-03-30 16:20:00 2024-03-30 16:55:49 Outpatient R ASPEN THURMAN [facility] [id number] [facility] 2024-03-30 16:20:00 2024-03-30 16:55:49 Office Visit Aspen Thurman [facility]?DIYA ESTEVEZ MEDICAL OFFICE BUILDING 1.840.114 350.1.13.10 4.2.7.2.686 [id number] [facility] 2024-03-29 15:30:00 2024-03-29 15:30:00 Outpatient R SIMA LLOYD [facility] [id number] [facility] 2024-03-28 13:06:00 2024-03-28 15:10:00 Emergency X FAYE ESCALANTE ANDRES [facility] ERT [id number] [facility] 2024-03-28 13:06:00 2024-03-28 15:10:00 Emergency Faye Escalante [facility] 1.840.114 350.1.13.10 4.2.7.2.686 [id number] [facility] 2024-03-28 11:00:00 2024-03-28 11:34:35 Outpatient R JILL BARRETT [facility] [id number] [facility] 2024-03-28 11:00:00 2024-03-28 11:34:35 Office Visit NenaSkyler heardlivianey Antunez [facility]?DIYA [facility] MEDICAL OFFICE BUILDING 1.84.114 350.1.13.10 4.2.7.2.686 [id number] [facility] 2024-03-24 00:00:00 2024-03-27 16:32:36 Paula Rdz Rick Lees [facility]?DIYA [facility] MEDICAL OFFICE BUILDING 1.114 350.1.13.10 4.2.7.2.686 [id number] [facility] 2024-03-26 15:30:00 2024-03-26 15:30:00 Outpatient LIANE MICHEL [facility] [id number] [facility] 2024-03-21 00:00:00 2024-03-22 14:44:28 Telephone Sima Lloyd [facility]?SEJALABRAZO [facility] MEDICAL OFFICE BUILDING 1.84114 350.1.13.10 4.2.7.2.686 [id number] [facility] 2024-03-20 09:00:00 2024-03-20 09:00:00 Outpatient VICENTA RONQUILLO [facility] [id number] [facility] 2024-03-08 00:00:00 2024-03-08 16:36:18 Telephone Norman Stratton [facility] 1.114 350.1.13.10 4.2.7.2.686 [id number] [facility] 2024-02-27 00:00:00 2024-03-06 11:15:[address] [facility] 1.114 350.1.13.10 4.2.7.2.686 [id number] [facility] 2024-02-28 00:00:00 2024-02-28 15:59:08 [facility]ill [facility]YA [facility] MEDICAL OFFICE BUILDING 1.2.840.114 350.1.13.10 4.2.7.2.686 [id number] [facility] 2024-02-24 00:00:00 2024-02-27 08:49:18 [facility]ill [facility] OFF[facility] BUILD[facility] 1.2.840.114 350.1.13.10 4.2.7.2.686 [id number] [id number] [facility] 2024-02-24 00:00:00 2024-02-24 16:35:40 Telephone [facility] MED[facility] OFF[facility] BUILD[facility] 1.2.840.114 350.1.13.10 4.2.7.2.686 [id number] [facility] 2024-02-22 00:00:00 2024-02-22 10:54:58 Refill Prema [facility] DOMINGUEZ?BANNERTulio [facility] MEDICAL OFFICE BUILDING 1.2.840.114 350.1.13.10 4.2.7.2.686 [id number] [facility] 2024-02-20 11:30:00 2024-02-20 12:14:02 Outpatient R VICENTE BATES [facility] [id number] [facility] 2024-02-20 11:30:00 2024-02-20 12:14:02 Office Visit Vicente Bates [facility] 1.2.840.114 350.1.13.10 4.2.7.2.686 [id number] [facility] 2024-02-17 14:00:00 2024-02-17 14:23:29 Outpatient R ARPAN MEDRANO [facility] [id number] [facility] 2024-02-17 14:00:00 2024-02-17 14:23:29 Electrician Bus Visit 2, Adc Lab Arpan Medrano [facility] AYAZ [facility] 1.840.114 350.1.13.10 4.2.7.2.686 [id number] [facility] 2024-02-16 11:00:00 2024-02-16 11:00:00 Outpatient R JOAO STANLEY [facility] [id number] [facility] 2024-02-14 12:26:10 2024-02-14 23:59:00 Outpatient R PREMA SIMACAPE [facility] [id number] [facility] 2024-02-14 12:26:10 2024-02-14 23:59:00 [facility] 1.840.114 350.1.13.10 4.2.7.2.686 [id number] 800 [id number] [facility] 2024-02-14 12:25:11 2024-02-14 12:25:11 Hospital Encounter [facility] 1.840.114 350.1.13.10 4.2.7.2.686 [id number] [facility] 2024-02-14 12:22:20 2024-02-14 12:24:00 Hospital Encounter Prema [facility] 1.2840.114 350.1.13.10 4.2.7.2.686 [id number] [facility] 2024-02-10 00:00:00 2024-02-13 10:30:28 Telephone Vicente Bates [facility] 1.0.114 350.1.13.10 4.2.7.2.686 [id number] [facility] 2024-02-12 00:00:00 2024-02-13 07:47:04 [facility] 1.840.114 350.1.13.10 4.2.7.2.686 [id number] [facility] 2024-02-06 16:00:00 2024-02-06 23:59:00 Outpatient R NORMAN STRATTON [facility] [id number] [facility] 2024-02-06 16:00:00 2024-02-06 23:59:00 Hospital Encounter Norman Stratton [facility] 1..840.114 350.1.13.10 4.2.7.2.686 [id number] [facility] 2024-02-03 14:00:00 2024-02-03 14:58:46 Outpatient R MEENASIMA VALDIVIA [facility] [id number] [facility] 2024-02-03 14:00:00 2024-02-03 14:58:46 [facility] 1..840.114 350.1.13.10 4.2.7.2.686 [id number] [facility] 2024-02-02 00:00:00 2024-02-03 07:25:28 [facility] 1.840.114 350.1.13.10 4.2.7.2.686 [id number] [facility] 2024-02-02 00:00:00 2024-02-02 13:51:26 Telephone Vicente Bates [facility] 1.2.840.114 350.1.13.10 4.2.7.2.686 [id number] [facility] 2024-01-25 00:00:00 2024-01-25 15:05:04 Telephone Sima Lloyd [facility] 1.2840.114 350.1.13.10 4.2.7.2.686 [id number] [facility] 2024-01-24 14:21:57 2024-01-24 23:59:00 Outpatient R SIMA LLOYD [facility] [id number] [facility] [facility]-24 14:21:57 2024-01-24 23:59:00 [facility] 1.2.840.114 350.1.13.10 4.2.7.2.686 [id number] [facility] 2024-01-24 14:21:29 2024-01-24 23:59:00 [facility].114 350.1.13.10 4.2.7.2.686 [id number] [facility] 2024-01-20 13:30:00 2024-01-20 13:30:00 Outpatient R RICK RDZ [facility] [id number] [facility] 2024-01-09 15:30:00 2024-01-09 15:36:16 Outpatient R NORMAN STRATTON [facility] [id number] [facility] 2024-01-09 15:30:00 2024-01-09 15:36:16 Office Visit Norman Stratton [facility] 1.2840.114 350.1.13.10 4.2.7.2.686 [id number] [facility] 2023-12-03 00:00:00 2024-01-07 18:11:37 Patient Secure Msg Doctor Unassigned, Van [facility] 1.840.114 350.1.13.10 4.2.7.2.686 [id number] [facility] 2023-12-28 00:00:00 2023-12-28 00:00:00 Outpatient R SIMA LLOYD [facility] [id number] [facility] 2023-12-23 14:30:00 2023-12-23 15:37:34 Outpatient R RICK RDZ [facility] [id number] [facility] 2023-12-23 14:30:00 2023-12-23 15:37:34 Office Visit Rick Rdz COUNT INCLUDES [facility] 1.840.114 350.1.13.10 4.2.7.2.686 [id number] [facility] 2023-12-20 14:00:00 2023-12-20 14:15:00 Electrician Bus Visit Lab, Irwin [facility] 1..840.114 350.1.13.10 4.2.7.2.686 [id number] [facility] 2023-12-20 13:30:00 2023-12-20 14:10:20 Outpatient R PREMA SIMA [facility] [id number] [facility] 2023-12-20 13:30:00 2023-12-20 14:10:20 Office Visit Prema [facility] 1..840.114 350.1.13.10 4.2.7.2.686 [id number] [facility] 2023-12-06 13:21:34 2023-12-06 23:59:00 [facility] 1.2.840.114 350.1.13.10 4.2.7.2.686 [id number] [facility] 2023-12-06 13:21:06 2023-12-06 23:59:00 Outpatient R RICK RDZ [facility] [id number] [facility] 2023-12-06 13:21:06 2023-12-06 23:59:00 Hospital Encounter Kendell [facility] ([facility]) 1.2.840.114 350.1.13.10 4.2.7.2.686 [id number] [facility] 2023-12-05 12:38:42 2023-12-05 23:59:00 Hospital Encounter [facility] 1.2.840.114 350.1.13.10 4.2.7.2.686 [id number] [facility] 2023-12-02 15:04:55 2023-12-02 23:59:00 Hospital Encounter Vicente Bates [facility] 1.2.840.114 350.1.13.10 4.2.7.2.686 [id number] [facility] 2023-12-02 14:57:12 2023-12-02 15:03:00 Outpatient R SIMA LLOYD [facility] [id number] [facility] 2023-12-02 14:57:12 2023-12-02 15:03:00 Hospital Encounter Sima Lloyd [facility] 1.2.840.114 350.1.13.10 4.2.7.2.686 [id number] [facility] 2023-11-25 14:15:00 2023-11-25 14:21:36 Electrician Bus Visit Lab, Irwin RdzRick COUNT INCLUDES THE [facility] 1.114 350.1.13.10 4.2.7.2.686 [id number] [facility] 2023-11-25 13:00:00 2023-11-25 13:54:42 Outpatient R KENDELLVARINDERIN [facility] [id number] [facility] 2023-11-25 13:00:00 2023-11-25 13:54:42 Office Visit RdzRick higgins [facility] 1.114 350.1.13.10 4.2.7.2.686 [id number] [facility] 2023-11-25 00:00:00 2023-11-25 00:00:00 [facility] 1.114 350.1.13.10 4.2.7.2.686 [id number] [id number] [facility] 2023-11-22 00:00:00 2023-11-22 00:00:00 Patient Secure Msg Doctor Unassigned, Van [facility] 1.114 350.1.13.10 4.2.7.2.686 [id number] [facility] 2023-11-21 00:00:00 2023-11-21 00:00:00 Outpatient R ROXIE [facility] [id number] [facility] 2023-11-03 16:00:00 2023-11-03 16:15:00 Electrician Bus Visit [facility] 1.114 350.1.13.10 4.2.7.2.686 [id number] [facility] 2023-11-03 15:00:00 2023-11-03 15:30:00 Office Visit [facility] 1.840.114 350.1.13.10 4.2.7.2.686 [id number] [facility] 2023-11-03 15:00:00 2023-11-03 15:00:00 Outpatient [facility] [id number] [facility] 2023-11-01 15:00:00 2023-11-01 15:21:31 Outpatient R PAULO [facility] [id number] [facility] 2023-11-01 15:00:00 2023-11-01 15:21:31 Electrician Bus Visit 2, Adc Lab [facility] 1..840.114 350.1.13.10 4.2.7.2.686 [id number] [facility] 2023-10-28 00:00:00 2023-10-28 00:00:00 Telephone [facility] 1.840.114 350.1.13.10 4.2.7.2.686 [id number] [facility] 2023-10-18 13:30:00 2023-10-18 13:30:00 Outpatient SIMA DE PAZ [facility] [id number] [facility] 2023-09-09 00:00:00 2023-09-09 00:00:00 Art Castellanos [facility] [place] 1..840.114 350.1.13.10 4.2.7.2.686 [id number] [facility] 2023-09-05 15:30:00 2023-09-05 15:30:00 Outpatient JOSE MILLER [facility] [id number] [facility] 2023-08-12 10:00:00 2023-08-12 10:00:00 Outpatient CHOCO INTERIANO HOWARD [facility] [id number] [facility] 2023-08-08 15:30:00 2023-08-08 16:42:55 Outpatient R PREMAROXIESIMACAPE [facility] [id number] [facility] 2023-08-08 15:30:00 2023-08-08 16:42:55 Office [facility] 1..840.114 350.1.13.10 4.2.7.2.686 [id number] [facility] 2023-06-23 16:45:00 2023-06-23 16:45:00 Outpatient R TRACY GRIJALVA [facility] [id number] [facility] 2023-06-22 14:00:00 2023-06-22 14:00:00 Outpatient R ASHLEY MELO [facility] [id number] [facility] 2023-06-17 00:00:00 2023-06-17 00:00:[address] [facility] 1..840.114 350.1.13.10 4.2.7.2.686 [id number] [facility] 2023-06-14 17:00:00 2023-06-14 17:15:00 Electrician Bus Visit Lab, Irwin [facility] 1..840.114 350.1.13.10 4.2.7.2.686 [id number] [facility] 2023-06-14 15:30:00 2023-06-14 16:21:24 Outpatient R PREMAROXIESIMACAPE [facility] [id number] [facility] 2023-06-14 15:30:00 2023-06-14 16:21:24 Office Visit Sima Lloyd [facility] 1.2.840.114 350.1.13.10 4.2.7.2.686 [id number] [facility] 2023-06-10 13:30:00 2023-06-10 13:30:00 Outpatient R SIMA LLOYD [facility] [id number] [facility] 2023-05-16 13:30:00 2023-05-16 13:30:00 Outpatient R ROXIE LLOYDCAPE [facility] [id number] [facility] 2023-05-09 15:30:00 2023-05-09 17:09:22 [facility] 1.2.840.114 350.1.13.10 4.2.7.2.686 [id number] [facility] 2023-05-09 00:00:00 2023-05-09 00:00:00 Outpatient R SIMA LLOYD [facility] [id number] [facility] 2023-05-05 13:15:00 2023-05-05 13:15:00 Outpatient R TRACY GRIJALVA [facility] [id number] [facility] 2023-04-27 15:30:00 2023-04-27 15:30:00 Outpatient R CHANTELLE GRUBER [facility] [id number] [facility] 2023-04-21 00:00:00 2023-04-21 00:00:00 Terence Prabhakar [facility]?DIYA [facility] 1.2.840.114 350.1.13.10 4.2.7.2.686 [id number] [facility] 2023-04-18 11:30:00 2023-04-18 11:30:00 Outpatient R LOPEZ JENSEN [facility] [id number] [facility] 2023-04-14 00:00:00 2023-04-14 00:00:00 Outpatient R SIMA LLOYD [facility] [id number] [facility] 2023-04-12 00:00:00 2023-04-12 00:00:00 Outpatient R SIMA LLOYD [facility] [id number] [facility] 2023-04-07 00:00:00 2023-04-07 00:00:00 [facility]?DIYA [facility] 1.2.840.114 350.1.13.10 4.2.7.2.686 [id number] [facility] 2023-04-06 15:45:00 2023-04-06 15:45:00 Outpatient R CHNATELLE GRUBER [facility] [id number] [facility] 2023-04-06 00:00:00 2023-04-06 00:00:00 Telephone [facility]?BANNERTulio [facility] 1.2.840.114 350.1.13.10 4.2.7.2.686 [id number] [facility] 2023-04-05 15:00:00 2023-04-05 15:15:00 Electrician Bus Visit Lab, Irwin Mayenshea [facility] [place]?DIYA [facility] 1.2.840.114 350.1.13.10 4.2.7.2.686 [id number] [facility] 2023-04-05 14:00:00 2023-04-05 14:50:06 Outpatient R PREMASIMA [facility] [id number] [facility] 2023-04-05 14:00:00 2023-04-05 14:50:06 Office Visit [facility]?BANNERTulio [facility] 1..840.114 350.1.13.10 4.2.7.2.686 [id number] [id number] [facility] 2023-04-05 00:00:00 2023-04-05 00:00:00 Telephone Prema Sima [facility] 1.284.114 350.1.13.10 4.2.7.2.686 [id number] [facility] 2023-03-24 12:30:00 2023-03-24 23:59:00 Hospital Encounter Tenzin Sandra [facility] 1.84.114 350.1.13.10 4.2.7.2.686 [id number] [facility] 2023-03-24 15:00:00 2023-03-24 15:30:00 Office Visit [facility] 1.84.114 350.1.13.10 4.2.7.2.686 [id number] [facility] 2023-03-24 15:00:00 2023-03-24 15:00:00 Outpatient R VICENTE BATES [facility] [id number] [facility] 2023-03-23 11:30:00 2023-03-23 11:30:00 Outpatient R RACHEL MEDEIROS [facility] [id number] [facility] 2023-03-17 15:00:00 2023-03-17 15:00:00 Outpatient R CHANTELLE GRUBER [facility] [id number] [facility] 2023-03-17 00:00:00 2023-03-17 00:00:00 Telephone [facility] 1.840.114 350.1.13.10 4.2.7.2.686 [id number] [facility] 2023-03-14 11:15:00 2023-03-14 11:15:00 Outpatient R LOPEZ JENSEN [facility] [id number] [facility] 2023-03-14 00:00:00 2023-03-14 00:00:00 Patient Secure Msg Doctor Unassigned, Van [facility] 1.840.114 350.1.13.10 4.2.7.2.686 [id number] [facility] 2023-03-10 00:00:00 2023-03-10 00:00:[address] [facility] 1..114 350.1.13.10 4.2.7.2.686 [id number] [facility] 2023-03-09 11:30:00 2023-03-09 11:30:00 Outpatient R RACHEL MEDEIROS [facility] [id number] [facility] 2023-03-08 11:45:00 2023-03-08 12:11:00 Outpatient R PREMA [facility] [id number] [facility] 2023-03-08 11:45:00 2023-03-08 12:11:00 Electrician Bus Visit Lab, [facility] 1.840.114 350.1.13.10 4.2.7.2.686 [id number] [facility] 2023-03-07 12:30:00 2023-03-07 12:30:00 Outpatient R MARK JONES [facility] [id number] [facility] 2023-03-04 00:00:00 2023-03-04 00:00:00 [facility] 1..840.114 350.1.13.10 4.2.7.2.686 [id number] [facility] 2023-03-03 16:00:00 2023-03-03 17:07:17 Outpatient R SIMA LLOYD [facility] [id number] [facility] 2023-03-03 16:00:00 2023-03-03 17:07:17 Office Visit Sima Lloyd [facility] 1.840.114 350.1.13.10 4.2.7.2.686 [id number] [facility] 2023-03-03 00:00:00 2023-03-03 00:00:00 [facility] 1.84.114 350.1.13.10 4.2.7.2.686 [id number] [facility] 2023-03-02 11:20:00 2023-03-02 14:00:00 Outpatient R RUDI TRACY [facility] [id number] [facility] 2023-03-02 11:20:00 2023-03-02 14:00:00 Hospital Encounter Rudi [facility] 1.84.114 350.1.13.10 4.2.7.2.686 [id number] [facility] 2023-03-02 11:49:00 2023-03-02 12:33:00 Surgery Rudi [facility] [place] [facility] 1.84.114 350.1.13.10 4.2.7.2.686 [id number] [facility] 2023-03-02 00:00:00 2023-03-02 00:00:00 Orders Only Doctor Unassigned, Van [facility] 1.84.114 350.1.13.10 4.2.7.2.686 [id number] [facility] 2023-02-28 15:00:00 2023-02-28 15:00:00 Outpatient R ROXIE LLOYDCAPE [facility] [id number] [facility] 2023-02-25 00:00:00 2023-02-25 00:00:00 [facility] 1.2.840.114 350.1.13.10 4.2.7.2.686 [id number] [facility] 2023-02-24 15:00:00 2023-02-24 15:00:00 Outpatient R TRACY GRIJALVA [facility] [id number] [facility] 2023-02-23 09:00:00 2023-02-23 09:00:00 Outpatient R RACHEL MEDEIROS [facility] [id number] [facility] 2023-02-17 12:30:00 2023-02-17 23:59:00 [facility] [id number] [facility] 2023-02-17 12:30:00 2023-02-17 23:59:00 Hospital Encounter Mark Jones [facility] 1..840.114 350.1.13.10 4.2.7.2.686 [id number] [facility] 2023-02-03 11:06:24 2023-02-03 23:59:00 Hospital Encounter Nuno Head [facility] 1.2.840.114 350.1.13.10 4.2.7.2.686 [id number] [facility] 2023-02-03 11:06:24 2023-02-03 23:59:00 Outpatient R NUNO HEAD [facility] [id number] [facility] 2023-02-03 00:00:00 2023-02-03 00:00:[address] [facility] 1.840.114 350.1.13.10 4.2.7.2.686 [id number] [facility] 2023-02-03 00:00:00 2023-02-03 00:00:00 Telephone Michele Redding [facility] 1..840.114 350.1.13.10 4.2.7.2.686 [id number] [facility] 2023-01-28 13:45:00 2023-01-28 13:45:00 Outpatient R ANTON HERNANDEZ [facility] [id number] [facility] 2023-01-27 14:00:00 2023-01-27 15:48:08 Outpatient TRACY FLORES [facility] [id number] [facility] 2023-01-27 14:00:00 2023-01-27 14:00:00 Outpatient TRACY FLORES [facility] [id number] [facility] 2023-01-26 00:00:00 2023-01-26 00:00:00 Telephone Sima Lloyd [facility] 1..840.114 350.1.13.10 4.2.7.2.686 [id number] [facility] 2023-01-21 12:30:00 2023-01-21 12:30:00 Outpatient R [facility] [id number] [facility] 2023-01-20 10:37:13 2023-01-20 23:59:00 Outpatient NUNO GRAMAJO [facility] [id number] [facility] 2023-01-20 10:37:13 2023-01-20 23:59:00 Hospital Encounter Sandra Dave Ludwik [facility] 1..840.114 350.1.13.10 4.2.7.2.686 [id number] [facility] 2023-01-20 00:00:00 2023-01-20 00:00:00 Telephone Anton Hernandez [facility] 1.2.84.114 350.1.13.10 4.2.7.2.686 [id number] [facility] 2023-01-13 15:15:00 2023-01-13 15:30:00 Electrician Bus Visit Lab[facility] 1.840.114 350.1.13.10 4.2.7.2.686 [id number] [facility] 2023-01-13 14:00:00 2023-01-13 15:04:44 Outpatient R PREMA [facility] [id number] [facility] 2023-01-13 14:00:00 2023-01-13 15:04:44 [facility] 1.840.114 350.1.13.10 4.2.7.2.686 [id number] [facility] 2023-01-08 00:00:00 2023-01-08 00:00:00 [facility] 1.2.84.114 350.1.13.10 4.2.7.2.686 [id number] [facility] 2023-01-07 10:01:55 2023-01-07 23:59:00 Outpatient R NOEL KRISHNAMURTHY [facility] [id number] [facility] 2023-01-07 10:01:55 2023-01-07 23:59:00 Hospital Encounter Noel Krishnamurthy [facility] 1.284.114 350.1.13.10 4.2.7.2.686 [id number] [facility] 2023-01-05 00:00:00 2023-01-05 00:00:00 Refjeanmarie Lloyd [facility] 1.2.840.114 350.1.13.10 4.2.7.2.686 [id number] [facility] 2023-01-04 00:00:00 2023-01-04 00:00:00 Paula Lloyd [facility] 1.84.114 350.1.13.10 4.2.7.2.686 [id number] [facility] 2022-12-30 14:45:00 2022-12-30 14:45:00 Outpatient CHANTELLE EVANS [facility] [id number] [facility] 2022-12-24 12:30:00 2022-12-24 23:59:00 Outpatient SANDRA LOPEZ [facility] [id number] [facility] 2022-12-24 12:30:00 2022-12-24 23:59:00 Hospital Sandra Ward [facility] 1.2.840.114 350.1.13.10 4.2.7.2.686 [id number] [facility] 2022-12-22 00:00:00 2022-12-22 00:00:00 Telephone Brandy Fierro [facility] 1.840.114 350.1.13.10 4.2.7.2.686 [id number] [facility] 2022-12-17 12:26:32 2022-12-17 23:59:00 Outpatient NOEL HINTON [facility] [id number] [facility] 2022-12-17 12:26:32 2022-12-17 23:59:00 Hospital Encounter Noel Krishnamurthy Audi [facility] 1.2.840.114 350.1.13.10 4.2.7.2.686 [id number] [facility] 2022-12-16 00:00:00 2022-12-16 00:00:[address] [facility] 1.2.840.114 350.1.13.10 4.2.7.2.686 [id number] [facility] 2022-12-15 00:00:00 2022-12-15 00:00:00 Telephone [facility] 1.2.840.114 350.1.13.10 4.2.7.2.686 [id number] [facility] 2022-12-13 00:00:00 2022-12-13 00:00:00 Transition of Care Genevieve [facility] 1.2.840.114 350.1.13.10 4.2.7.2.686 [id number] [facility] 2022-12-13 00:00:00 2022-12-13 00:00:00 Orders Only Doctor Unassigned, Van [facility] 1.2.840.114 350.1.13.10 4.2.7.2.686 [id number] [facility] 2022-11-29 11:21:00 2022-12-10 12:15:00 Inpatient U SANDRA DAVE [facility] [id number] [facility] 2022-11-29 11:21:00 2022-12-10 12:15:00 Hospital Encounter Cecile Agudelo Amy Wolf, [facility] 1.2.840.114 350.1.13.10 4.2.7.2.686 [id number] [facility] 2022-12-10 00:00:00 2022-12-10 00:00:[address] [facility] 1.2.840.114 350.1.13.10 4.2.7.2.686 [id number] [facility] 2022-12-08 11:00:00 2022-12-08 11:00:00 Outpatient RACHEL CALDERA [facility] [id number] [facility] 2022-12-02 11:50:00 2022-12-02 14:00:00 Surgery Sandra Dave [facility] 1.2.840.114 350.1.13.10 4.2.7.2.686 [id number] [facility] 2022-12-01 10:00:00 2022-12-01 11:43:00 Surgery Maggie Dumont [facility] 1.2.840.114 350.1.13.10 4.2.7.2.686 [id number] [facility] 2022-11-29 23:30:00 2022-11-30 02:41:00 Surgery LazaraashleyAyala [facility] 1.2.840.114 350.1.13.10 4.2.7.2.686 [id number] [facility] 2022-11-25 14:55:00 2022-11-25 19:46:00 Emergency X JOSE LUIS ALBETRO [facility] ERT [id number] [facility] 2022-11-25 14:55:00 2022-11-25 19:46:00 Emergency Jose Luis Alberto F [facility] 1.2.840.114 350.1.13.10 4.2.7.2.686 [id number] [facility] 2022-11-25 14:00:00 2022-11-25 14:36:03 Electrician Bus Visit 2, [facility] RudiTracy [facility] 1..840.114 350.1.13.10 4.2.7.2.686 [id number] [facility] 2022-11-25 11:30:00 2022-11-25 11:17:50 Outpatient TRACY FLORES [facility] [id number] [facility] 2022-11-24 16:00:00 2022-11-24 16:20:00 Office Visit JoseArt [facility] [place] 1.840.114 350.1.13.10 4.2.7.2.686 [id number] [facility] 2022-11-24 16:00:00 2022-11-24 16:00:00 Outpatient ART SUTTON [facility] [id number] [facility] 2022-11-24 00:00:00 2022-11-24 00:00:00 Telephone Paulo Abbott [facility] 1.840.114 350.1.13.10 4.2.7.2.686 [id number] [facility] 2022-11-18 15:40:00 2022-11-18 15:40:00 Outpatient ART SUTTON [facility] [id number] [facility] 2022-11-18 11:45:00 2022-11-18 11:45:00 Outpatient TRACY FLORES [facility] [id number] [facility] 2022-11-10 00:00:00 2022-11-10 00:00:[facility] 1..840.114 350.1.13.10 4.2.7.2.686 [id number] [facility] 2022-11-08 15:30:00 2022-11-08 15:30:00 Outpatient JEANIE DE PAZA [facility] [id number] [facility] 2022-11-08 15:30:00 2022-11-08 15:30:00 Outpatient R SIMA LLOYD [facility] [id number] [facility] 2022-11-04 15:40:00 2022-11-04 16:00:00 Office Visit Art Garcia [facility] 1..840.114 350.1.13.10 4.2.7.2.686 [id number] [facility] 2022-11-04 15:40:00 2022-11-04 15:40:00 Outpatient R ART GARCIA [facility] [id number] [facility] 2022-11-01 16:30:00 2022-11-01 16:30:00 Outpatient R SIMA LLOYD [facility] [id number] [facility] 2022-11-01 16:00:00 2022-11-01 16:00:00 Outpatient R MARIAN CASTILLO [facility] [id number] [facility] 2022-10-29 14:40:00 2022-10-29 15:00:00 Office Visit Art Garcia [facility] 1..840.114 350.1.13.10 4.2.7.2.686 [id number] [facility] 2022-10-29 14:40:00 2022-10-29 14:40:00 Outpatient R ART GARCIA [facility] [id number] [facility] 2022-10-29 00:00:00 2022-10-29 00:00:00 Orders Only Doctor Unassigned, Van [facility] 1..840.114 350.1.13.10 4.2.7.2.686 [id number] [facility] 2022-10-28 11:45:00 2022-10-28 11:45:00 Outpatient R TRACY GRIJALVA [facility] [id number] [facility] 2022-10-22 15:40:00 2022-10-22 16:00:00 Office Visit Art Garcia [facility] 1.2.840.114 350.1.13.10 4.2.7.2.686 [id number] [facility] 2022-10-22 15:40:00 2022-10-22 15:40:00 Outpatient R ART GARCIA [facility] [id number] [facility] 2022-10-19 08:30:00 2022-10-19 08:30:00 Outpatient R MARIAN CASTILLO [facility] [id number] [facility] 2022-10-14 11:45:00 2022-10-14 11:45:00 Outpatient R RTACY GRIJALVA [facility] [id number] [facility] 2022-10-13 13:00:00 2022-10-13 13:20:00 Office Visit Art Garcia [facility] 1..840.114 350.1.13.10 4.2.7.2.686 [id number] [facility] 2022-10-13 13:00:00 2022-10-13 13:00:00 Outpatient R ART GARCIA [facility] [id number] [facility] 2022-10-10 00:00:00 2022-10-10 00:00:00 Paula Bates [facility] 1..840.114 350.1.13.10 4.2.7.2.686 [id number] [facility] 2022-10-08 15:00:00 2022-10-08 15:20:00 Office Visit Art Garcia [facility] 1..840.114 350.1.13.10 4.2.7.2.686 [id number] [facility] 2022-10-08 15:00:00 2022-10-08 15:00:00 Outpatient R ART GARCIA [facility] [id number] [facility] 2022-10-01 15:00:00 2022-10-01 15:20:00 Office Visit Art Garcia [facility] 1.2.840.114 350.1.13.10 4.2.7.2.686 [id number] [facility] 2022-10-01 15:00:00 2022-10-01 15:00:00 Outpatient R ART GARCIA [facility] [id number] [facility] 2022-09-28 00:00:00 2022-09-28 00:00:00 Telephone Art Garcia [facility] 1.2.840.114 350.1.13.10 4.2.7.2.686 [id number] [facility] 2022-09-24 14:00:00 2022-09-24 14:00:00 Outpatient R RUDI TRACY [facility] [id number] [facility] 2022-09-23 13:20:00 2022-09-23 13:40:00 Office Visit Art Garcia [facility] 1.2.840.114 350.1.13.10 4.2.7.2.686 [id number] [facility] 2022-09-23 13:20:00 2022-09-23 13:20:00 Outpatient R ART GARCIA [facility] [id number] [facility] 2022-09-20 09:30:00 2022-09-20 09:30:00 Outpatient R LOPEZ JENSEN [facility] [id number] [facility] 2022-09-17 14:30:00 2022-09-17 14:30:00 Outpatient Tess GRIJALVA TRACY [facility] [id number] [facility] 2022-09-15 15:20:00 2022-09-15 15:40:00 Office Visit Art Garcia [facility] 1..840.114 350.1.13.10 4.2.7.2.686 [id number] [facility] 2022-09-15 15:20:00 2022-09-15 15:20:00 Outpatient R ART GARCIA [facility] [id number] [facility] 2022-09-15 00:00:00 2022-09-15 00:00:00 Telephone Sima Lloyd [facility] 1..840.114 350.1.13.10 4.2.7.2.686 [id number] [facility] 2022-09-10 14:30:00 2022-09-10 14:30:00 Outpatient R TRACY GRIJALVA [facility] [id number] [facility] 2022-09-10 00:00:00 2022-09-10 00:00:00 Telephone Art Garcia [facility] 1..840.114 350.1.13.10 4.2.7.2.686 [id number] [facility] 2022-09-08 14:15:00 2022-09-08 14:15:00 Outpatient R LOGAN WILKINS [facility] [id number] [facility] 2022-09-07 14:00:00 2022-09-07 14:40:00 Office Visit Art Garcia [facility] 1..840.114 350.1.13.10 4.2.7.2.686 [id number] [facility] 2022-09-07 14:00:00 2022-09-07 14:00:00 Outpatient R ART GARCIA [facility] [id number] [facility] 2022-09-07 00:00:00 2022-09-07 00:00:00 Telephone Jill Barrett [facility] 1..840.114 350.1.13.10 4.2.7.2.686 [id number] [facility] 2022-09-03 14:45:00 2022-09-03 14:45:00 Outpatient R RUDITRACY MADRIGAL [facility] [id number] [facility] 2022-09-01 13:51:35 2022-09-01 23:59:00 Outpatient R NENA JILL [facility] [id number] [facility] 2022-09-01 14:30:00 2022-09-01 14:45:00 Electrician Bus Visit Lab, Ang - Db Nena [facility] 1..840.114 350.1.13.10 4.2.7.2.686 [id number] [facility] 2022-09-01 13:00:00 2022-09-01 13:49:15 Office Visit Melita [facility] 1..840.114 350.1.13.10 4.2.7.2.686 [id number] [facility] 2022-08-27 15:30:00 2022-08-27 23:59:00 Outpatient DEMARCUS SALMERON [facility] [id number] [facility] 2022-08-27 13:45:00 2022-08-27 13:45:00 Outpatient TRACY FLORES [facility] [id number] [facility] 2022-08-18 10:00:00 2022-08-18 10:30:00 Office Visit Rachel Medeiros [facility] 1..840.114 350.1.13.10 4.2.7.2.686 [id number] [facility] 2022-08-18 10:00:00 2022-08-18 10:00:00 Outpatient RACHLE CALDERA [facility] [id number] [facility] 2022-08-16 14:30:00 2022-08-16 14:30:00 Outpatient R DEMARCUS BEAUCHAMP [facility] [id number] [facility] 2022-08-12 14:00:00 2022-08-12 14:37:07 Outpatient R DUDLEY WADDELL [facility] [id number] [facility] 2022-08-12 14:00:00 2022-08-12 14:37:07 Office Visit Dudley Waddell [facility] 1..840.114 350.1.13.10 4.2.7.2.686 [id number] [facility] 2022-08-09 13:30:00 2022-08-09 13:30:00 Outpatient R DEMARCUS BEAUCHAMP [facility] [id number] [facility] 2022-08-06 13:15:00 2022-08-06 13:15:00 Outpatient R TRACY GRIJALVA [facility] [id number] [facility] 2022-08-04 10:00:00 2022-08-04 10:00:00 Outpatient R RACHEL MEDEIROS [facility] [id number] [facility] 2022-08-02 15:00:00 2022-08-02 15:00:00 Outpatient R SIMA LLOYD [facility] [id number] [facility] 2022-07-30 11:23:00 2022-07-30 15:13:00 Outpatient R NADIRA DUDLEY [facility] SOR [id number] [facility] 2022-07-30 11:23:00 2022-07-30 15:13:00 Hospital Encounter Dudley Waddell [facility] 1..840.114 350.1.13.10 4.2.7.2.686 [id number] [facility] 2022-07-30 12:49:00 2022-07-30 13:59:00 Anesthesia Event BhavanaBlaise Aminah, Demetris [facility] 1.2.840.114 350.1.13.10 4.2.7.2.686 [id number] [facility] 2022-07-30 11:24:00 2022-07-30 12:37:00 Surgery Dudley Waddell [facility] 1.2.840.114 350.1.13.10 4.2.7.2.686 [id number] [facility] 2022-07-30 00:00:00 2022-07-30 00:00:00 Orders Only Doctor Unassigned, Van [facility] 1.2.840.114 350.1.13.10 4.2.7.2.686 [id number] [facility] 2022 14:30:00 2022 15:26:54 Outpatient R VICENTE BATES [facility] [id number] [facility] 2022 14:30:00 2022 15:26:54 Office Visit Vicente Bates [facility] 1.2840.114 350.1.13.10 4.2.7.2.686 [id number] [facility] 2022-07-27 15:45:00 2022-07-27 16:00:00 Electrician Bus Visit 2, Adc Lab Vicente Bates [facility] 1.2840.114 350.1.13.10 4.2.7.2.686 [id number] [facility] 2022-07-27 15:45:00 2022-07-27 15:45:00 Outpatient VICENTE HOLLOWAY [facility] [id number] [facility] 2022-07-27 15:30:00 2022-07-27 15:30:00 Outpatient VICENTE HOLLOWAY [facility] [id number] [facility] 2022-07-27 00:00:00 2022-07-27 00:00:00 Telephone Paulo [facility] 1.284.114 350.1.13.10 4.2.7.2.686 [id number] [facility] 2022-07-26 00:00:00 2022-07-26 00:00:00 Telephone Celia, [facility] 1..840.114 350.1.13.10 4.2.7.2.686 [id number] [facility] 2022-07-26 00:00:00 2022-07-26 00:00:00 Telephone Paulo [facility] 1.840.114 350.1.13.10 4.2.7.2.686 [id number] [facility] 2022-07-21 15:00:00 2022-07-21 16:03:08 Outpatient R MICHELE REDDING [facility] [id number] [facility] 2022-07-21 15:00:00 2022-07-21 16:03:08 Office Visit Ruy Michele [facility] 1..840.114 350.1.13.10 4.2.7.2.686 [id number] [facility] 2022-07-15 15:30:00 2022-07-15 15:40:00 Office Visit Dudley Waddell [facility] 1.84.114 350.1.13.10 4.2.7.2.686 [id number] [facility] 2022-07-15 15:30:00 2022-07-15 15:30:00 Outpatient R DUDLEY WADDELL [facility] [id number] [facility] 2022-07-13 08:30:00 2022-07-13 08:56:01 Outpatient R MUNDO CASTILLOUWATOSIN [facility] [id number] [facility] 2022-07-13 08:30:00 2022-07-13 08:56:01 Office Visit Anna Marian A [facility] 1..840.114 350.1.13.10 4.2.7.2.686 [id number] [facility] 2022-07-09 13:00:00 2022-07-09 13:36:32 Outpatient R TRACY GRIJALVA [facility] [id number] [facility] 2022-07-08 08:17:35 2022-07-08 23:59:00 Outpatient R ANNA MARIAN [facility] [id number] [facility] 2022-07-08 08:17:35 2022-07-08 23:59:00 Hospital Encounter Marian Castillo [facility] 1.840.114 350.1.13.10 4.2.7.2.686 [id number] [facility] 2022-07-07 00:00:00 2022-07-07 00:00:00 Telephone Sima Lloyd [facility] 1..840.114 350.1.13.10 4.2.7.2.686 [id number] [facility] 2022-07-06 15:45:00 2022-07-06 17:04:50 Outpatient R ELY HESS [facility] [id number] [facility] 2022-07-06 15:45:00 2022-07-06 17:04:50 [facility] 1..840.114 350.1.13.10 4.2.7.2.686 [id number] [facility] 2022-07-05 08:58:18 2022-07-05 23:59:00 Outpatient R MARIAN CASTILLO [facility] [id number] [facility] 2022-07-05 08:58:18 2022-07-05 23:59:00 Hospital Encounter Marian Castillo [facility] 1.2840.114 350.1.13.10 4.2.7.2.686 [id number] [facility] 2022-07-05 08:45:00 2022-07-05 09:00:00 Office Visit Marian Castillo [facility] 1.84.114 350.1.13.10 4.2.7.2.686 [id number] [facility] 2022-07-01 16:34:00 2022-07-01 21:51:00 Emergency X MARCELINO JESSICA [facility] ERT [id number] [facility] 2022-07-01 16:34:00 2022-07-01 21:51:00 Emergency Jessica Benson [facility] 1.840.114 350.1.13.10 4.2.7.2.686 [id number] [facility] 2022-07-01 14:30:00 2022-07-01 15:32:41 Outpatient R PREMA SIMA [facility] [id number] [facility] 2022-07-01 14:30:00 2022-07-01 15:32:41 Office Visit Sima Lloyd [facility] 1.284.114 350.1.13.10 4.2.7.2.686 [id number] [facility] 2022-07-01 00:00:00 2022-07-01 00:00:00 [facility] 1.2.840.114 350.1.13.10 4.2.7.2.686 [id number] [facility] 2022-06-30 14:15:00 2022-06-30 14:51:04 Outpatient R KARRI CHANTELLE [facility] [id number] [facility] 2022-06-30 14:15:00 2022-06-30 14:51:04 Office Visit Sandieotilia Counts include 234 beds at the [facility] 1.2.840.114 350.1.13.10 4.2.7.2.686 [id number] [facility] 2022-06-28 00:00:00 2022-06-28 00:00:00 [facility] 1.2.840.114 350.1.13.10 4.2.7.2.686 [id number] [facility] 2022-06-24 14:00:07 2022-06-24 23:59:00 Outpatient R SIMA LLOYD [facility] [id number] [facility] 2022-06-24 14:00:07 2022-06-24 23:59:00 Hospital Encounter Sima Lloyd [facility] 1.2.840.114 350.1.13.10 4.2.7.2.686 [id number] [facility] 2022-06-24 13:54:03 2022-06-24 13:59:00 [facility] 1.2.840.114 350.1.13.10 4.2.7.2.686 [id number] [facility] 2022-06-09 11:30:00 2022-06-09 11:30:00 Outpatient R RACHEL MEDEIROS [facility] [id number] [facility] 2022-06-08 07:18:00 2022-06-08 11:00:00 Outpatient R IVETH HESSEL [facility] BARRY [id number] [facility] 2022-06-08 07:18:00 2022-06-08 11:00:00 Hospital Encounter HessEly richardson [facility] [place] 1.2.840.114 350.1.13.10 4.2.7.2.686 [id number] [facility] 2022-06-08 08:15:00 2022-06-08 09:11:00 Surgery Ely Hess [facility] [place] 1.2.840.114 350.1.13.10 4.2.7.2.686 [id number] [facility] 2022-06-08 00:00:00 2022-06-08 00:00:00 Orders Only Doctor Unassigned, Van [facility] 1.2840.114 350.1.13.10 4.2.7.2.686 [id number] [facility] 2022-06-07 11:00:00 2022-06-07 11:00:00 Outpatient R HESSIVETHEL [facility] [id number] [facility] 2022-06-07 00:00:00 2022-06-07 00:00:00 Telephone Hess Ely [facility] PROFESSIO [facility] 1.2840.114 350.1.13.10 4.2.7.2.686 [id number] [facility] 2022-06-03 00:00:00 2022-06-03 00:00:00 [facility].28[facility].114 350.1.13.10 4.2.7.2.686 [id number] [facility] 2022-06-01 00:00:00 2022-06-01 00:00:00 [facility] 1..114 350.1.13.10 4.2.7.2.686 [id number] [facility] 2022-05-31 00:00:00 2022-05-31 00:00:00 [facility] 1.114 350.1.13.10 4.2.7.2.686 [id number] [facility] 2022-05-27 00:00:00 2022-05-27 00:00:00 [facility] [id number] [facility] 2022-05-24 00:00:00 2022-05-24 00:00:00 Patient Secure Msg Doctor Unassigned, Van [facility] 1.114 350.1.13.10 4.2.7.2.686 [id number] [facility] 2022-05-14 14:30:00 2022-05-14 16:14:37 Outpatient R ANTON HERNANDEZ [facility] [id number] [facility] 2022-05-14 14:30:00 2022-05-14 16:14:37 Office Visit Anton Hernandez [facility] 1.84.114 350.1.13.10 4.2.7.2.686 [id number] [facility] 2022-05-14 00:00:00 2022-05-14 00:00:00 [facility] 1..114 350.1.13.10 4.2.7.2.686 [id number] [facility] 2022-05-12 11:30:00 2022-05-12 11:30:00 Outpatient R WALDEMAR RACHEL [facility] [id number] [facility] 2022-05-11 15:30:00 2022-05-11 15:34:44 Electrician Bus Visit Lab, [facility] 1.2.840.114 350.1.13.10 4.2.7.2.686 [id number] [facility] 2022-05-11 15:30:00 2022-05-11 15:30:00 Outpatient R PREMASIMA [facility] [id number] [facility] 2022-05-11 14:30:00 2022-05-11 15:21:10 [facility] 1.2.840.114 350.1.13.10 4.2.7.2.686 [id number] [facility] 2022-05-11 14:30:00 2022-05-11 15:21:10 Outpatient R PREMA SIMA [facility] [id number] [facility] 2022-05-11 14:30:00 2022-05-11 15:21:10 Outpatient R PREMA SIMA [facility] [id number] [facility] 2022-05-04 14:30:00 2022-05-04 14:30:00 Outpatient R PREMA SIMA [facility] [id number] [facility] 2022-04-21 11:30:00 2022-04-21 11:30:00 Outpatient R ALESSIO MARTINEZ [facility] [id number] [facility] 2022-04-05 13:15:00 2022-04-05 13:15:00 Outpatient R [facility] [id number] [facility] 2022-03-18 16:30:00 2022-03-18 17:00:00 Office Visit Vicente Bates [facility] 1.2.840.114 350.1.13.10 4.2.7.2.686 [id number] [facility] 2022-03-18 16:30:00 2022-03-18 16:30:00 [facility] [id number] [facility] 2022-02-11 13:00:00 2022-02-11 15:42:51 Outpatient R SANA DE LA ROSA [facility] [id number] [facility] 2022-02-11 13:00:00 2022-02-11 15:42:51 Nurse Visit Visit, [facility] Dermatology Nurse Sana De La Rosa [facility] 1.2.840.114 350.1.13.10 4.2.7.2.686 [id number] [facility] 2022-02-11 00:00:00 2022-02-11 00:00:00 Telephone [facility] 1.2.840.114 350.1.13.10 4.2.7.2.686 [id number] [facility] 2022-02-04 15:15:00 2022-02-04 16:19:56 Office Visit Tavo Bunn [facility] 1.2.840.114 350.1.13.10 4.2.7.2.686 [id number] [facility] 2022-02-04 15:15:00 2022-02-04 16:19:56 Outpatient R TAVO BUNN [facility] [id number] [facility] 2022-02-04 15:15:00 2022-02-04 15:15:00 Outpatient R TAVO BUNN [facility] [id number] [facility] 2022-02-04 00:00:00 2022-02-04 00:00:00 Orders Only Doctor Unassigned, Van [facility] 1.2.840.114 350.1.13.10 4.2.7.2.686 [id number] [facility] 2022-01-12 14:00:00 2022-01-12 14:30:00 Office Visit Scott Russell [facility] 1.2840.114 350.1.13.10 4.2.7.2.686 [id number] [facility] 2022-01-12 14:00:00 2022-01-12 14:00:00 Outpatient SCOTT GARDUNO GWYN [facility] [id number] [facility] 2022-01-01 14:30:00 2022-01-01 15:15:00 Ancillary Visit 1, [employer] Mary Gonzalez [facility] 1.2840.114 350.1.13.10 4.2.7.2.686 [id number] [facility] 2022-01-01 14:30:00 2022-01-01 14:30:00 Outpatient MARY JOLLY [facility] [id number] [facility] 2021-12-31 17:03:56 2021-12-31 23:59:00 Outpatient R CHANTELLE GRUBER [facility] [id number] [facility] 2021-12-31 17:03:56 2021-12-31 23:59:00 Outpatient R CHANTELLE GRUBER [facility] [id number] [facility] 2021-12-31 16:30:00 2021-12-31 23:59:00 Hospital Encounter Chantelle Gruber [facility] 1.2.840.114 350.1.13.10 4.2.7.2.686 [id number] [facility] 2021-12-30 00:00:00 2021-12-30 00:00:00 Patient Secure Msg Doctor Unassigned, Van [facility] 1.114 350.1.13.10 4.2.7.2.686 [id number] [facility] 2021-12-23 16:15:00 2021-12-23 16:30:00 Electrician Bus Visit Vls-Lab Chantelle Gruber [facility] 1..114 350.1.13.10 4.2.7.2.686 [id number] [facility] 2021-12-23 14:30:00 2021-12-23 14:45:00 Office Visit Chantelle Gruber [facility] 1.114 350.1.13.10 4.2.7.2.686 [id number] [facility] 2021-12-23 14:30:00 2021-12-23 14:30:00 Outpatient R CHANTELLE GRUBER [facility] [id number] [facility] 2021-12-23 14:30:00 2021-12-23 14:30:00 Outpatient R CHANTELLE GRUBER [facility] [id number] [facility] 2021-12-15 13:00:00 2021-12-15 13:00:00 Outpatient RUSSELL ANDERSON [facility] [id number] [facility] 2021-12-10 00:00:00 2021-12-10 00:00:00 [facility] 1.84.114 350.1.13.10 4.2.7.2.686 [id number] [facility] 2021-12-10 00:00:00 2021-12-10 00:00:00 [facility] 1..840.114 350.1.13.10 4.2.7.2.686 [id number] [facility] 2021-12-09 00:00:00 2021-12-09 00:00:00 [facility] 1.840.114 350.1.13.10 4.2.7.2.686 [id number] [facility] 2021-12-08 00:00:00 2021-12-08 00:00:00 [facility] 1..840.114 350.1.13.10 4.2.7.2.686 [id number] [facility] 2021-12-07 13:00:00 2021-12-07 23:59:00 Outpatient R RACHEL MEDEIROS [facility] [id number] [facility] 2021-12-07 13:00:00 2021-12-07 23:59:00 Outpatient R RACHEL MEDEIROS [facility] [id number] [facility] 2021-12-07 12:20:25 2021-12-07 23:59:00 Hospital Encounter Rachel Medeiros Sheena M [facility] 1..840.114 350.1.13.10 4.2.7.2.686 [id number] [facility] 2021-11-27 00:00:00 2021-11-27 00:00:00 [facility] 1.[facility].114 350.1.13.10 4.2.7.2.686 [id number] [facility] 2021-11-26 10:13:34 2021-11-26 23:59:00 Outpatient R RACHEL MEDEIROS [facility] [id number] [facility] 2021-11-26 10:13:34 2021-11-26 23:59:00 Hospital Encounter Rachel Medeiros [facility] 1.2.840.114 350.1.13.10 4.2.7.2.686 [id number] [facility] 2021-11-26 10:00:00 2021-11-26 10:12:00 Hospital Encounter Rachel Medeiros [facility] 1.2.840.114 350.1.13.10 4.2.7.2.686 [id number] [facility] 2021-11-16 10:40:00 2021-11-16 10:40:00 [facility] [id number] 2021-10-26 17:00:00 2021-10-26 17:00:00 Outpatient R [facility] [id number] [facility] 2021-10-26 17:00:00 2021-10-26 17:00:00 Electrician Bus Visit [facility] 1..840.114 350.1.13.10 4.2.7.2.686 [id number] [facility] 2021-10-26 14:30:00 2021-10-26 15:00:00 Office Visit [facility] 1..840.114 350.1.13.10 4.2.7.2.686 [id number] [facility] 2021-10-26 14:30:00 2021-10-26 14:30:00 Outpatient Tess BATES [facility] [id number] [facility] 2021-10-15 00:00:00 2021-10-15 00:00:00 Telephone [facility] [facility] 1..840.114 350.1.13.10 4.2.7.2.686 [id number] [facility] 2021-10-13 14:00:00 2021-10-13 14:30:00 Office Visit Scott Russell [facility] 1.114 350.1.13.10 4.2.7.2.686 [id number] [facility] 2021-10-13 14:00:00 2021-10-13 14:00:00 Outpatient SC[facility] [id number] [facility] 2021-10-13 14:00:00 2021-10-13 14:00:00 Outpatient SCOTT GARDUNO GWYN [facility] [id number] [facility] 2021-09-30 00:00:00 2021-09-30 00:00:00 Patient Secure Msg Doctor Unassigned, Van [facility] 1.114 350.1.13.10 4.2.7.2.686 [id number] [facility] 2021-09-18 11:30:00 2021-09-18 11:45:00 Electrician Bus Visit Lab, [facility] 1.84.114 350.1.13.10 4.2.7.2.686 [id number] [facility] 2021-09-18 11:30:00 2021-09-18 11:30:00 [facility] [id number] [facility] 2021-09-18 10:00:00 2021-09-18 11:15:59 Office Visit Prema [facility] MEDICAL OFFICE BUILDING 1.84.114 350.1.13.10 4.2.7.2.686 [id number] [facility] 2021-09-18 10:00:00 2021-09-18 11:15:59 Outpatient R SIMA LLOYD [facility] [id number] [facility] 2021-07-15 10:58:41 2021-07-15 11:44:05 Office Visit Rachel Medeiros Katy [facility] 1..840.114 350.1.13.10 4.2.7.2.686 [id number] [facility] 2021-07-15 10:45:00 2021-07-15 11:44:05 Outpatient R RACHEL MEDEIROS [facility] [id number] [facility] 2021-07-15 10:45:00 2021-07-15 11:44:05 [facility] [id number] [facility] 2021-06-25 15:30:00 2021-06-25 16:55:56 Outpatient R VICENTE BATES [facility] [id number] [facility] 2021-06-25 15:30:00 2021-06-25 16:55:56 Office Visit Paulo [facility] 1.840.114 350.1.13.10 4.2.7.2.686 [id number] [facility] 2021-06-25 15:30:00 2021-06-25 15:30:00 Outpatient R [facility] [id number] [facility] 2021-06-23 10:00:00 2021-06-23 11:36:54 Outpatient R VICENTE BATES [facility] [id number] [facility] 2021-06-23 10:39:25 2021-06-23 10:54:25 Electrician Bus Visit [facility] 1..840.114 350.1.13.10 4.2.7.2.686 [id number] [facility] 2021-06-23 09:39:10 2021-06-23 10:09:10 Office Visit Raymond Russellyn [facility] 1.2.840.114 350.1.13.10 4.2.7.2.686 [id number] [id number] [facility] 2021-06-23 09:30:00 2021-06-23 09:30:00 Outpatient R SCOTT RUSSELL GWYN [facility] [id number] [facility] 2021-06-23 00:00:00 2021-06-23 00:00:00 Orders Only Doctor Unassigned, Van [facility] 1.2.840.114 350.1.13.10 4.2.7.2.686 [id number] [facility] 2021-06-19 00:00:00 2021-06-19 00:00:00 Telephone [facility] 1.2.840.114 350.1.13.10 4.2.7.2.686 [id number] [facility] 2021-06-11 10:36:00 2021-06-12 17:49:00 [facility] 1.2.840.114 350.1.13.10 4.2.7.2.686 [id number] [id number] [facility] 2021-06-10 09:32:00 2021-06-10 18:45:00 [facility] 1.2.840.114 350.1.13.10 4.2.7.2.686 [id number] [facility] 2021-06-10 09:55:00 2021-06-10 14:12:00 [facility] 1.2.840.114 350.1.13.10 4.2.7.2.686 [id number] [facility] 2021-06-10 00:00:00 2021-06-10 00:00:00 Orders Only Doctor Unassigned, Van [facility] 1.2.840.114 350.1.13.10 4.2.7.2.686 [id number] [id number] [facility] 2021-06-03 00:00:00 2021-06-03 00:00:00 Orders Only Doctor Unassigned, Van [facility] 1.2.840.114 350.1.13.10 4.2.7.2.686 [id number] [facility] 2021-06-02 15:26:21 2021-06-02 23:59:00 Hospital Encounter Rachel Medeiros [facility] 1.20.114 350.1.13.10 4.2.7.2.686 [id number] [facility] 2021-06-02 15:26:21 2021-06-02 23:59:00 Outpatient R RACHEL MEDEIROS [facility] [id number] [facility] 2021-06-02 15:56:27 2021-06-02 16:13:00 Electrician Bus Visit [facility] Scott Russell [facility] 1..114 350.1.13.10 4.2.7.2.686 [id number] [facility] 2021-06-02 12:43:26 2021-06-02 15:40:52 Office Visit Kalina Sanchez [facility] 1.2840.114 350.1.13.10 4.2.7.2.686 [id number] [facility] 2021-06-02 14:00:00 2021-06-02 14:00:00 Outpatient SCOTT GARDUNO GWYN [facility] [id number] [facility] 2021-06-02 13:11:36 2021-06-02 13:41:36 Office Visit Scott Russell [facility] 1.2.840.114 350.1.13.10 4.2.7.2.686 [id number] [id number] [facility] 2021-06-02 13:00:00 2021-06-02 13:00:00 Outpatient KALINA CASTILLO [facility] [id number] [facility] 2021-05-28 10:47:29 2021-05-28 23:59:00 Hospital Encounter Kalina Sanchez [facility] 1.2.840.114 350.1.13.10 4.2.7.2.686 [id number] [facility] 2021-05-28 00:00:00 2021-05-28 00:00:00 Outpatient KALINA CASTILLO [facility] [id number] [facility] 2021-05-25 16:06:51 2021-05-25 17:06:51 Office Visit [facility] 1.2.840.114 350.1.13.10 4.2.7.2.686 [id number] [facility] 2021-05-25 16:06:51 2021-05-25 17:06:51 Office Visit [facility] 1.2.840.114 350.1.13.10 4.2.7.2.686 [id number] [facility] 2021-05-25 16:00:00 2021-05-25 16:00:00 Outpatient Tess [facility]ATES [facility] [id number] [facility] 2021-05-25 16:00:00 2021-05-25 16:00:00 Outpatient Tess BATES [facility] [id number] [facility] 2021-05-25 16:00:00 2021-05-25 16:00:00 Outpatient VICENTE HOLLOWAY [facility] [id number] [facility] 2021-04-29 10:15:00 2021-04-29 23:59:00 Hospital Encounter Kalina Sanchez Ct, [facility] Rad Oncology [facility] 1.2.840.114 350.1.13.10 4.2.7.2.686 [id number] 181 [id number] [facility] 2021-04-29 10:15:00 2021-04-29 23:59:00 Hospital Encounter Kalina Sanchez, [facility] Rad Oncology [facility] 1.2.840.114 350.1.13.10 4.2.7.2.686 [id number] [facility] 2021-04-29 06:49:00 2021-04-29 17:05:00 Hospital Encounter SanchezKalina [facility] 1.2.840.114 350.1.13.10 4.2.7.2.686 [id number] [facility] 2021-04-29 13:55:51 2021-04-29 15:40:07 Treatment Management Kalina Sanchez [facility] 1.2.840.114 350.1.13.10 4.2.7.2.686 [id number] 181 [id number] [facility] 2021-04-29 13:55:51 2021-04-29 15:40:07 Treatment Management Kalina Sanchez [facility] 1.2.840.114 350.1.13.10 4.2.7.2.686 [id number] [facility] 2021-04-29 08:58:00 2021-04-29 11:05:00 [facility] 1.2.840.114 350.1.13.10 4.2.7.2.686 [id number] [facility] 2021-04-29 08:58:00 2021-04-29 11:05:00 Anesthesia Event Sofiya Hornercolby, [facility] 1.2.840.114 350.1.13.10 4.2.7.2.686 [id number] [facility] 2021-04-29 09:00:00 2021-04-29 10:59:00 Surgery [place]Connor[place]ina [facility] 1.2.840.114 350.1.13.10 4.2.7.2.686 [id number] [facility] 2021-04-29 09:00:00 2021-04-29 10:59:00 [facility] 1.2.840.114 350.1.13.10 4.2.7.2.686 [id number] [facility] 2021-04-29 10:15:00 2021-04-29 10:15:00 Outpatient R SANCHEZ KALINA [facility] [id number] [facility] 2021-04-29 09:00:00 2021-04-29 10:14:00 Hospital Encounter Kalina Sanchez Sabino [facility] Rad Oncology [facility] 1.2.840.114 350.1.13.10 4.2.7.2.686 [id number] 181 [id number] [facility] 2021-04-29 09:00:00 2021-04-29 10:14:00 Hospital Encounter SanchezRoshnira Greg Gallo [facility] Rad Oncology [facility] 1.2.840.114 350.1.13.10 4.2.7.2.686 [id number] [facility] 2021-04-29 09:00:00 2021-04-29 09:00:00 Outpatient R KALINA SANCHEZ [facility] [id number] [facility] 2021-04-29 00:00:00 2021-04-29 00:00:00 Orders Only Doctor Unassigned, Van [facility] 1.2.840.114 350.1.13.10 4.2.7.2.686 [id number] [id number] [facility] 2021-04-29 00:00:00 2021-04-29 00:00:00 Orders Only Doctor Unassigned, Van [facility] 1.2840.114 350.1.13.10 4.2.7.2.686 [id number] [facility] 2021-04-28 11:30:00 2021-04-28 11:30:00 Outpatient SCOTT GARDUNO GWYN [facility] [id number] [facility] 2021-04-23 00:00:00 2021-04-23 00:00:[address] [facility] 1.2.840.114 350.1.13.10 4.2.7.2.686 [id number] [id number] [facility] 2021-04-23 00:00:00 2021-04-23 00:00:[address] [facility] 1.2.840.114 350.1.13.10 4.2.7.2.686 [id number] [facility] 2021-04-22 11:15:00 2021-04-22 23:59:00 Hospital Encounter Kalina Sanchez [facility] Oncology [facility] 1.2.840.114 350.1.13.10 4.2.7.2.686 [id number] 181 [id number] [facility] 2021-04-22 11:15:00 2021-04-22 23:59:00 Hospital Encounter Kalina Sanchez [facility] Oncology [facility] 1.2.840.114 350.1.13.10 4.2.7.2.686 [id number] 181 [id number] [facility] 2021-04-22 06:57:00 2021-04-22 17:07:00 Hospital Encounter [facility] 1.2.840.114 350.1.13.10 4.2.7.2.686 [id number] [facility] 2021-04-22 09:00:00 2021-04-22 11:14:00 Hospital Encounter [place]ina [facility], [facility] Oncology [facility] 1.2.840.114 350.1.13.10 4.2.7.2.686 [id number] 181 [id number] [facility] 2021-04-22 09:00:00 2021-04-22 11:14:00 Hospital Encounter [place]ina [facility], [facility] 1.2.840.114 350.1.13.10 4.2.7.2.686 [id number] 181 [id number] [facility] 2021-04-22 09:00:00 2021-04-22 10:59:00 Surgery [facility] 1.2.840.114 350.1.13.10 4.2.7.2.686 [id number] 103 [id number] [facility] 2021-04-22 09:00:00 2021-04-22 10:59:00 Surgery [facility] 1.2.840.114 350.1.13.10 4.2.7.2.686 [id number] 103 [id number] [facility] 2021-04-22 00:00:00 2021-04-22 00:00:00 Orders Only Doctor Unassigned, Van [facility] 1.2.840.114 350.1.13.10 4.2.7.2.686 [id number] 009 [id number] [facility] 2021-04-22 00:00:00 2021-04-22 00:00:00 Orders Only Doctor Unassigned, Van [facility] 1.20.114 350.1.13.10 4.2.7.2.686 [id number] 009 [id number] [facility] 2021-04-20 13:00:00 2021-04-20 23:59:00 Hospital Encounter Kalina Sanchez 1, [facility] Rad Oncology Linac [facility] 1..114 350.1.13.10 4.2.7.2.686 [id number] 181 [id number] [facility] 2021-04-20 13:28:55 2021-04-20 15:28:55 Nurse Visit 4, [facility] Infusion Chair [facility] 1..114 350.1.13.10 4.2.7.2.686 [id number] [id number] [facility] 2021-04-20 13:15:00 2021-04-20 13:15:00 Outpatient SCOTT GARDUNO SCOTT [facility] [id number] [facility] 2021-04-17 14:24:15 2021-04-17 23:59:00 Hospital Encounter Kalina Sanchez 1, [facility] Rad Oncology Linac [facility] 1..114 350.1.13.10 4.2.7.2.686 [id number] 181 [id number] [facility] 2021-04-17 15:03:50 2021-04-17 15:20:40 Electrician Bus Visit [facility] 1..114 350.1.13.10 4.2.7.2.686 [id number] [facility] 2021-04-17 15:00:00 2021-04-17 15:00:00 [facility] [id number] 2021-04-16 14:30:00 2021-04-16 23:59:00 Hospital Encounter Kalina Sanchez, [facility] 1.2.840.114 350.1.13.10 4.2.7.2.686 [id number] 181 [id number] [facility] 2021-04-15 14:45:00 2021-04-15 23:59:00 Hospital Encounter Kalina Sanchez Ak, [facility] Rad Oncology [facility] 1.2.840.114 350.1.13.10 4.2.7.2.686 [id number] 181 [id number] [facility] 2021-04-15 14:14:01 2021-04-15 23:59:00 Hospital Encounter Roshni Sanchezra Greg Marte, [facility] Rad Oncology Lin[facility] 1.2.840.114 350.1.13.10 4.2.7.2.686 [id number] 181 [id number] [facility] 2021-04-15 09:00:00 2021-04-15 14:13:00 Hospital Encounter SanchezRoshnira Greg [facility] 1.2.840.114 350.1.13.10 4.2.7.2.686 [id number] [facility] 2021-04-15 00:00:00 2021-04-15 00:00:00 Outpatient R KALINA SANCHEZ [facility] [id number] [facility] 2021-04-15 00:00:00 2021-04-15 00:00:00 Prep For Surgery SanchezRoshnira Greg [facility] 1.2.840.114 350.1.13.10 4.2.7.2.686 [id number] 181 [id number] [facility] 2021-04-14 09:00:00 2021-04-14 23:59:00 Hospital Encounter Todd Kalina Marte, [facility] Rad [facility] Lin[facility] 1.2.840.114 350.1.13.10 4.2.7.2.686 [id number] 181 [id number] [facility] 2021-04-14 11:40:08 2021-04-14 16:10:08 Nurse Visit 2, [facility] Infusion Chair [facility] 1.2.840.114 350.1.13.10 4.2.7.2.686 [id number] 053 [id number] [facility] 2021-04-14 09:28:45 2021-04-14 13:31:08 Treatment Management Kalina Sanchez [facility] 1.2.840.114 350.1.13.10 4.2.7.2.686 [id number] 181 [id number] [facility] 2021-04-14 11:08:40 2021-04-14 11:38:40 Office Visit [facility] 1.2.840.114 350.1.13.10 4.2.7.2.686 [id number] [id number] [facility] 2021-04-14 10:00:00 2021-04-14 10:00:00 Outpatient SC[facility] [id number] [facility] 2021-04-14 08:30:00 2021-04-14 08:30:00 Outpatient SCOTT G[facility]UNO [facility] [id number] [facility] 2021-04-14 00:00:00 2021-04-14 00:00:00 [facility] 1.2.840.114 350.1.13.10 4.2.7.2.686 [id number] 181 [id number] [facility] 2021-04-13 14:02:02 2021-04-13 23:59:00 Hospital Encounter Kalina Sanchez, [facility] Rad Oncology Linac [facility] 1.2.840.114 350.1.13.10 4.2.7.2.686 [id number] 181 [id number] [facility] 2021-04-13 13:45:00 2021-04-13 13:45:00 Outpatient R SCOTT RUSSELL GWYN [facility] [id number] [facility] 2021-04-13 13:17:10 2021-04-13 13:32:10 Electrician Bus Visit [facility] Scott Russell [facility] 1.2.840.114 350.1.13.10 4.2.7.2.686 [id number] 316 [id number] [facility] 2021-04-10 14:08:15 2021-04-10 23:59:00 Hospital Encounter SanchezKalina Greg Marte, [facility] Rad Oncology Linac [facility] 1.2.840.114 350.1.13.10 4.2.7.2.686 [id number] [facility] 2021-04-10 14:30:00 2021-04-10 14:30:00 Outpatient R KALINA SANCHEZ [facility] [id number] [facility] 2021-04-09 14:30:00 2021-04-09 23:59:00 Hospital Encounter Kalina Sanchez Rosanna, [facility] Rad Oncology Linac [facility] 1.2.840.114 350.1.13.10 4.2.7.2.686 [id number] 181 [id number] [facility] 2021-04-08 14:27:36 2021-04-08 23:59:00 Hospital Encounter SanchezKalina Greg Marte, [facility] Rad Oncology Lin[facility] 1.2.840.114 350.1.13.10 4.2.7.2.686 [id number] 181 [id number] [facility] 2021-04-08 00:00:00 2021-04-08 00:00:00 Telephone Russell, [facility] 1.2.840.114 350.1.13.10 4.2.7.2.686 [id number] [id number] [facility] 2021-04-07 12:22:29 2021-04-07 23:59:00 Hospital Encounter Kalina Sanchez, [facility] Rad Oncology Linac [facility] 1.2.840.114 350.1.13.10 4.2.7.2.686 [id number] 181 [id number] [facility] 2021-04-07 12:02:55 2021-04-07 16:02:55 Nurse Visit 3, [facility] Infusion Chair [facility] 1.2.840.114 350.1.13.10 4.2.7.2.686 [id number] [id number] [facility] 2021-04-07 14:25:30 2021-04-07 15:34:48 Treatment Management Kalina Sanchez [facility] 1.2.840.114 350.1.13.10 4.2.7.2.686 [id number] 181 [id number] [facility] 2021-04-07 12:00:00 2021-04-07 12:00:00 Outpatient SCOTT GARDUNO GWYN [facility] [id number] [facility] 2021-04-06 14:30:00 2021-04-06 23:59:00 Hospital Encounter Kalina Sanchez, [facility] Rad Oncology Linac [facility] 1.2.840.114 350.1.13.10 4.2.7.2.686 [id number] 181 [id number] [facility] 2021-04-06 14:13:06 2021-04-06 14:28:06 Electrician Bus Visit [facility] 1.2.840.114 350.1.13.10 4.2.7.2.686 [id number] 316 [id number] [facility] 2021-04-06 14:00:00 2021-04-06 14:00:00 Outpatient SCOTT GARDUNO GWYN [facility] [id number] [facility] 2021-04-03 14:19:55 2021-04-03 23:59:00 Hospital Encounter Kalina Sanchez, [facility] Rad Oncology Linac [facility] 1.2.840.114 350.1.13.10 4.2.7.2.686 [id number] 181 [id number] [facility] 2021-04-02 14:14:41 2021-04-02 23:59:00 Hospital Encounter Kalina Sanchez, [facility] Rad Oncology Linac [facility] 1.2.840.114 350.1.13.10 4.2.7.2.686 [id number] 181 [id number] [facility] 2021-04-01 14:30:00 2021-04-01 23:59:00 Hospital Encounter Kalina Sanchez, [facility] Rad Oncology Linac [facility] 1.2.840.114 350.1.13.10 4.2.7.2.686 [id number] 181 [id number] [facility] 2021-03-31 09:30:00 2021-03-31 23:59:00 Hospital Encounter Roshni Sanchezra Greg Marte, [facility] Rad Oncology Lin[facility] 1.2.840.114 350.1.13.10 4.2.7.2.686 [id number] 181 [id number] [facility] 2021-03-31 11:58:11 2021-03-31 15:58:11 Nurse Visit 6, [facility] 1.2.840.114 350.1.13.10 4.2.7.2.686 [id number] [id number] [facility] 2021-03-31 10:43:44 2021-03-31 10:58:44 Electrician Bus Visit [facility] Scott Russell [facility] 1..114 350.1.13.10 4.2.7.2.686 [id number] 316 [id number] [facility] 2021-03-31 09:54:02 2021-03-31 10:54:20 Treatment Management Sameer Winter [facility] 1.84.114 350.1.13.10 4.2.7.2.686 [id number] 181 [id number] [facility] 2021-03-31 10:00:00 2021-03-31 10:00:00 Outpatient SC[facility] [id number] [facility] 2021-03-31 10:00:00 2021-03-31 10:00:00 Outpatient SCOTT GARDUNO [facility] [id number] [facility] 2021-03-30 14:30:00 2021-03-30 23:59:00 Hospital Encounter Kalina Sanchez 1, [facility] Linjessica [facility] 1.840.114 350.1.13.10 4.2.7.2.686 [id number] 181 [id number] [facility] 2021-03-30 15:00:00 2021-03-30 15:00:00 Outpatient SCOTT [facility]UN[facility] [id number] [facility] 2021-03-30 14:30:00 2021-03-30 14:30:00 Outpatient KALINA CASTILLO [facility] [id number] [facility] 2021-03-30 14:30:00 2021-03-30 14:30:00 Outpatient KALINA CASTILLO [facility] [id number] [facility] 2021-03-28 00:00:00 2021-03-28 00:00:00 Orders Only Doctor Unassigned, Van [facility] 1.840.114 350.1.13.10 4.2.7.2.686 [id number] [facility] 2021-03-27 14:20:41 2021-03-27 23:59:00 Hospital Encounter Kalina Sanchez, [facility] Rad Oncology Lin[facility] 1.2.840.114 350.1.13.10 4.2.7.2.686 [id number] 181 [id number] [facility] 2021-03-26 14:30:00 2021-03-26 23:59:00 Hospital Encounter Kalina Sanchez, [facility] Rad Oncology Lin[facility] 1.2.840.114 350.1.13.10 4.2.7.2.686 [id number] [facility] 2021-03-25 14:14:12 2021-03-25 23:59:00 Hospital Encounter Kalina Sanchez, [facility] Rad Oncology Lin[facility] 1.2.840.114 350.1.13.10 4.2.7.2.686 [id number] [facility] 2021-03-24 10:35:13 2021-03-24 23:59:00 Hospital Encounter Kalina Sanchez, [facility] Rad Oncology Lin[facility] 1.2.840.114 350.1.13.10 4.2.7.2.686 [id number] [facility] 2021-03-24 10:36:32 2021-03-24 15:14:06 Treatment Management Kalina SanchezG [facility] 1.2.840.114 350.1.13.10 4.2.7.2.686 [id number] 181 [id number] [facility] 2021-03-24 10:00:00 2021-03-24 10:00:00 Outpatient SCOTT GARDUNO [facility] [id number] [facility] 2021-03-23 14:28:48 2021-03-23 23:59:00 Hospital Encounter Todd Kalina Greg Marte, [facility] Rad Oncology Linac [facility] 1.2840.114 350.1.13.10 4.2.7.2.686 [id number] [facility] 2021-03-23 11:45:00 2021-03-23 11:45:00 Outpatient R SCOTT RUSSELL [facility] [id number] [facility] 2021-03-23 11:09:12 2021-03-23 11:24:12 [employer] Visit 2, [facility] Scott Russell [facility] 1.2.114 350.1.13.10 4.2.7.2.686 [id number] [facility] 2021-03-23 00:00:00 2021-03-23 00:00:[address] [facility] 1.2840.114 350.1.13.10 4.2.7.2.686 [id number] [facility] 2021-03-20 14:18:23 2021-03-20 23:59:00 Hospital Encounter Kalina Sanchez Greg Marte, [facility] Rad Oncology Linac [facility] 1.20.114 350.1.13.10 4.2.7.2.686 [id number] [facility] 2021-03-20 00:00:00 2021-03-20 00:00:[address] [facility] 1.2840.114 350.1.13.10 4.2.7.2.686 [id number] [facility] 2021-03-19 14:27:02 2021-03-19 23:59:00 Hospital Encounter Kalina Sanchez Rosanna, [facility] Rad Oncology Linac [facility] 1.2.840.114 350.1.13.10 4.2.7.2.686 [id number] 181 [id number] [facility] 2021-03-18 14:23:00 2021-03-18 23:59:00 Hospital Encounter Kalina Sanchez, [facility] Rad Oncology Linac LUANNE [facility] 1.2.840.114 350.1.13.10 4.2.7.2.686 [id number] [facility] 2021-03-17 12:45:00 2021-03-17 23:59:00 Hospital Encounter Kalina Sanchez [facility] [facility] 1.2.840.114 350.1.13.10 4.2.7.2.686 [id number] [facility] 2021-03-17 11:16:56 2021-03-17 15:51:56 [facility] 1.2.840.114 350.1.13.10 4.2.7.2.686 [id number] [facility] 2021-03-17 11:00:00 2021-03-17 15:51:56 Outpatient R KALINA SANCHEZ [facility] [id number] [facility] 2021-03-17 13:30:00 2021-03-17 13:30:00 Outpatient R ANDRIA JOLLY [facility] [id number] [facility] 2021-03-17 13:30:00 2021-03-17 13:30:00 Outpatient R ANDRIA JOLLY [facility] [id number] [facility] 2021-03-17 12:30:00 2021-03-17 12:44:00 Hospital Encounter Kalina Sanchez, [facility] Rad Oncology Linac LUANNE BUILDING 1.2.840.114 350.1.13.10 4.2.7.2.686 [id number] [facility] 2021-03-17 11:00:00 2021-03-17 11:00:00 Outpatient R KALINA SANCHEZ [facility] [id number] [facility] 2021-03-16 11:19:30 2021-03-16 23:59:00 Hospital Encounter Michelle Alessio [facility] 1.2.840.114 350.1.13.10 4.2.7.2.686 [id number] [facility] 2021-03-16 12:47:44 2021-03-16 13:02:44 Electrician Bus Visit Vls-Lab Andria Jolly [facility] 1.2840.114 350.1.13.10 4.2.7.2.686 [id number] [facility] 2021-03-16 11:00:00 2021-03-16 11:18:00 Hospital Encounter Michelle Alessio [facility] 1.2840.114 350.1.13.10 4.2.7.2.686 [id number] [facility] 2021-03-16 08:00:00 2021-03-16 08:00:00 Outpatient R MICHELLE ALESSIO [facility] [id number] [facility] 2021-03-16 00:00:00 2021-03-16 00:00:00 Telephone [facility] 1.2840.114 350.1.13.10 4.2.7.2.686 [id number] [facility] 2021-03-13 00:00:00 2021-03-13 00:00:00 Case Management Michelle [facility] 1.2840.114 350.1.13.10 4.2.7.2.686 [id number] [facility] 2021-03-12 19:54:00 2021-03-12 23:02:00 Emergency Graham Carter [facility] 1.2.840.114 350.1.13.10 4.2.7.2.686 [id number] [facility] 2021-03-12 15:39:28 2021-03-12 19:53:00 Hospital Encounter Alessio [facility] 1.2840.114 350.1.13.10 4.2.7.2.686 [id number] [facility] 2021-03-12 15:39:28 2021-03-12 19:53:00 Outpatient Tess MARTINEZ ALESSIO [facility] [id number] [facility] 2021-03-12 15:09:02 2021-03-12 15:24:02 Electrician Bus Visit 2, [facility] 1.2840.114 350.1.13.10 4.2.7.2.686 [id number] [facility] 2021-03-12 00:00:00 2021-03-12 00:00:00 Outpatient Tess MICHELLEMRAIA TERESAY [facility] [id number] [facility] 2021-03-12 00:00:00 2021-03-12 00:00:00 Orders Only Doctor Unassigned, Van [facility] 1.2840.114 350.1.13.10 4.2.7.2.686 [id number] [facility] 2021-03-12 00:00:00 2021-03-12 00:00:[address] [facility] 1.20.114 350.1.13.10 4.2.7.2.686 [id number] [facility] 2021-03-10 10:30:00 2021-03-10 23:59:00 Hospital Encounter Kalina Sanchez 1, [facility] 1..840.114 350.1.13.10 4.2.7.2.686 [id number] [facility] 2021-03-10 12:15:44 2021-03-10 16:15:44 Nurse Visit Nurse, [facility] Scott Hirsch [facility] 1..840.114 350.1.13.10 4.2.7.2.686 [id number] [facility] 2021-03-10 13:30:00 2021-03-10 13:30:00 Outpatient R MICHELLE ALESSIO [facility] [id number] [facility] 2021-03-10 13:30:00 2021-03-10 13:30:00 Outpatient R MICHELLE ALESSIO [facility] [id number] [facility] 2021-03-10 12:35:43 2021-03-10 13:05:43 Office Visit Michelle [facility] 1..840.114 350.1.13.10 4.2.7.2.686 [id number] [facility] 2021-03-10 09:00:00 2021-03-10 09:00:00 Outpatient R ALESSIO MARTINEZ [facility] [id number] [facility] 2021-03-09 11:09:19 2021-03-09 11:24:19 Electrician Bus Visit 2, Adc Lab Arpan Medrano [facility] Building 1.2.840.114 350.1.13.10 4.2.7.2.686 [id number] [facility] 2021-03-09 10:30:00 2021-03-09 10:30:00 Outpatient R [facility] [id number] [facility] 2021-03-09 00:00:00 2021-03-09 00:00:00 Case Management Michelle [facility] 1..114 350.1.13.10 4.2.7.2.686 [id number] [facility] 2021-03-09 00:00:00 2021-03-09 00:00:00 Case Management Scott Russell [facility] 1..114 350.1.13.10 4.2.7.2.686 [id number] [facility] 2021-03-05 06:00:00 2021-03-05 23:59:00 Hospital Encounter Kalina Sanchez Physics, [facility] 1..114 350.1.13.10 4.2.7.2.686 [id number] [facility] 2021-03-05 06:00:00 2021-03-05 06:00:00 Outpatient KALINA CASTILLO [facility] [id number] [facility] 2021-03-05 00:00:00 2021-03-05 00:00:00 Orders Only Doctor Unassigned, Van [facility] 1..114 350.1.13.10 4.2.7.2.686 [id number] [facility] 2021-03-04 13:59:45 2021-03-04 15:30:15 Office Visit Pgy2 Luis Felipe Nolasco [facility] 1.114 350.1.13.10 4.2.7.2.686 [id number] [facility] 2021-03-04 14:30:00 2021-03-04 14:30:00 Outpatient LUIS FELIPE LINN [facility] [id number] [facility] 2021-03-03 08:30:00 2021-03-03 08:30:00 Outpatient SCOTT GARDUNO GWYN [facility] [id number] [facility] 2021-02-27 00:00:00 2021-02-27 00:00:00 Case Management Scott Russell [facility] 1.2.840.114 350.1.13.10 4.2.7.2.686 [id number] [facility] 2021-02-26 00:00:00 2021-02-26 00:00:00 Transition of Care Benja Stephanie Dalebeti Vipul Grey 1.2.840.114 350.1.13.10 4.2.7.2.686 [id number] [facility] 2021-02-19 16:40:00 2021-02-25 16:00:00 Hospital Encounter Jose Luis Alberto Sarah G 1.2.840.1 15954.1.1 3.104.2.7 .3.694474 .8 [id number] [facility] 2021-02-19 12:04:01 2021-02-19 13:09:01 Electrician Bus Visit Toni Rouse [facility] 1.2.840.1 07279.1.1 3.104.2.7 .3.544909 .8 [id number] [facility] 2021-02-19 12:15:00 2021-02-19 12:15:00 Outpatient R TONI ROUSE [facility] [id number] [facility] 2021-02-19 10:16:54 2021-02-19 12:02:29 Office Visit Toni Rouse [facility] 1.2.840.1 02684.1.1 3.104.2.7 .3.765997 .8 [id number] [facility] 2021-02-19 10:15:00 2021-02-19 10:15:00 Outpatient R [facility] [id number] [facility] 2021-02-19 00:00:00 2021-02-19 00:00:00 Travel 1.2.840.1 76573.1.1 3.104.2.7 .3.456610 .8 1.2.840.114 350.1.13.10 4.2.7.3.698 [id number] [facility] 2021-02-16 10:30:00 2021-02-16 10:30:00 Outpatient R [facility] [id number] [facility] 2021-02-09 00:00:00 2021-02-09 00:00:00 Telephone Weinert Renu Gil 1.2.840.1 29679.1.1 3.104.2.7 .3.661205 .8 [id number] [facility] 2021-02-06 15:09:06 2021-02-06 17:03:47 Office Visit Iain [facility] Resident Andry Kyle [facility] 1.2.840.114 350.1.13.10 4.2.7.2.686 [id number] [facility] 2021-02-06 15:00:00 2021-02-06 17:03:47 Outpatient R ANDRY KYLE [facility] [id number] [facility] 2021-02-06 15:00:00 2021-02-06 15:00:00 Outpatient R [facility] [id number] [facility] 2021-02-06 00:00:00 2021-02-06 00:00:00 Orders Only Doctor Unassigned, Van 1.2.840.1 84053.1.1 3.104.2.7 .3.761987 .8 [id number] [facility] 2021-02-06 00:00:00 2021-02-06 00:00:00 Travel 1.2.840.1 49938.1.1 3.104.2.7 .3.234065 .8 1.2.840.114 350.1.13.10 4.2.7.3.698 084.8 [id number] [facility] 2021-01-20 13:30:00 2021-01-20 13:30:00 Outpatient R DWAYNESUDHAANJALIKOBI [facility] [id number] [facility] 2021-01-15 16:51:00 2021-01-15 23:41:00 Emergency Kimberly Billingsley 1.2.840.1 67393.1.1 3.104.2.7 .3.712387 .8 [id number] [facility] 2021-01-15 14:30:00 2021-01-15 14:30:00 Outpatient R JAD TOMPKINS [facility] [id number] [facility] 2021-01-15 14:30:00 2021-01-15 14:30:00 Outpatient JAD SWENSON [facility] [id number] [facility] 2021-01-15 00:00:00 2021-01-15 00:00:00 Orders Only Doctor Unassigned, Van 1.2.840.1 79165.1.1 3.104.2.7 .3.525168 .8 [id number] [facility] 2021-01-15 00:00:00 2021-01-15 00:00:00 Telephone Jad Tompkins 1.2.840.1 92692.1.1 3.104.2.7 .3.876554 .8 [id number] [facility] 2021-01-15 00:00:00 2021-01-15 00:00:00 Travel 1.2.840.1 43691.1.1 3.104.2.7 .3.297521 .8 1.2.840.114 350.1.13.10 4.2.7.3.698 084.8 [id number] [facility] 2020-12-25 18:47:00 2020-12-26 01:16:00 Emergency Cydney Martinez 1.2.840.1 08046.1.1 3.104.2.7 .3.350986 .8 [id number] [facility] 2020-12-25 18:12:00 2020-12-25 18:12:00 Emergency X [facility] ERT [id number] [facility] 2020-12-25 00:00:00 2020-12-25 00:00:00 Travel 1.2.840.1 98300.1.1 3.104.2.7 .3.364460 .8 1.2.840.114 350.1.13.10 4.2.7.3.698 084.8 [id number] [facility] Results Test Description Test Time Test Comments Results Result Co mments Source [facility] GLUCOSE (AUTOMATED)2024-07-25 14:25:39* Test Item Value Reference Range Interpretation Comme nts POCT GLU (test code = 2801054728) 85 mg/dL 70-110 Lab Interpretation (test cod e = 52058-8) Normal [facility] GLUCOSE (AUTOMATED)2024-07-25 01:49:13* Test Item Value Reference Range Interpretation Comme nts POCT GLU (test code = 4140874912) 166 mg/dL 70-110 H Lab Interpretation (test cod e = 35691-5) Abnormal [facility] GLUCOSE (AUTOMATED)2024-07-25 01:49:13* Test Item Value Reference Range Interpretation Comme nts POCT GLU (test code = 9810138851) 166 mg/dL 70-110 H Lab Interpretation (test cod e = 29121-1) Abnormal [facility] GLUCOSE (AUTOMATED)2024-07-24 22:22:11* Test Item Value Reference Range Interpretation Comme nts POCT GLU (test code = 9216542683) 141 mg/dL 70-110 H Lab Interpretation (test cod e = 08429-2) Abnormal [facility] GLUCOSE (AUTOMATED)2024-07-24 22:22:11* Test Item Value Reference Range Interpretation Comme nts POCT GLU (test code = 2538347424) 141 mg/dL 70-110 H Lab Interpretation (test cod e = 66462-6) Abnormal [facility] [id number] 21:09:49Table formatting from the original result was not included.Attending: Dr. Jacobsen:; topical 1% Lidocaine and ?IV Versed/IV FentanylAccess:RIJV Procedure details:The indications, risks, benefits and alternatives of the above procedure(s) was/were discussed in detail with t sonny, who evidenced complete understanding. Written, witnessed and informed consent was obtained from thepatient and placed on the chart. The attending physician was present throughout the procedure, providing the highest level of supervision.The patient was brought to the procedural area in the fasting state. This case was performed in the cardiac catheterization lab. The patient procedure site was prepped and draped in the standard fashion. After determination of site access using anatomical landmarks, confirmed by fluoroscopy /USG ?7F Sheath was inserted into the Right Femoral Vein bySeldinger technique. Next Right heart cath was performed as follows.We floated 7F swan yanelis catheter to the right sided chambers of the heart using fluoroscopy and measured saturations, pressures anddetermined cardiac output using thermodilution and sharmin's method. At the end we removed the catheter and sheath and manual compression applied. Pt tolerated the procedure well. She was transferred tothe recovery in stable fashion. Findings:RA:mean 27 ?mm HgRV:91/7mm HgPA:93/31 mean 52 mm HgPCWP: 21 mm HgRASAO2:07SAXSC8:56CO: 6.4(T) ? 5.6 (F)CI: ?3.1 (T) ?2.7 ?(F)PVR 383 TPmm Hg Sheath removed and manual compression/ appliedNo complications observed ImpressionSevere PAH-Suspect Primary PAH PlansAdmit and give IV lasix for aggressive diuresisRefer to PAH specialist I was present trough theentire procedure with our fellow Dr.Ahmad Carmen Mar MD, FACCAssociate professorInterventional disassembler [facility])2024-07-24 18:03:43* Test Item Value Reference Range Interpretation Comme nts POCT GLU (test code = 3157913733) 96 mg/dL 70-110 Lab Interpretation (test cod e = 97220-2) Normal [facility] GLUCOSE (AUTOMATED)2024-07-24 18:03:43* Test Item Value Reference Range Interpretation Comme nts POCT GLU (test code = 9146793247) 96 mg/dL 70-110 Lab Interpretation (test cod e = 41342-9) Normal [facility] GLUCOSE (AUTOMATED)2024-07-24 14:08:13* Test Item Value Reference Range Interpretation Comme nts POCT GLU (test code = 0824580803) 123 mg/dL 70-110 H Lab Interpretation (test cod e = 57812-3) Abnormal [facility] GLUCOSE (AUTOMATED)2024-07-24 14:08:13* Test Item Value Reference Range Interpretation Comme nts POCT GLU (test code = 6488825919) 123 mg/dL 70-110 H Lab Interpretation (test cod e = 12604-8) Abnormal [facility] GLUCOSE (AUTOMATED)2024-07-24 11:48:08* Test Item Value Reference Range Interpretation Comme nts POCT GLU (test code = 7205428106) 88 mg/dL 70-110 Lab Interpretation (test cod e = 33389-9) Normal [facility] GLUCOSE (AUTOMATED)2024-07-24 11:48:08* Test Item Value Reference Range Interpretation Comme nts POCT GLU (test code = 0196003328) 88 mg/dL 70-110 Lab Interpretation (test cod e = 09660-7) Normal [facility] GLUCOSE (AUTOMATED)2024-07-24 03:26:40* Test Item Value Reference Range Interpretation Comme nts POCT GLU (test code = 2738620811) 100 mg/dL 70-110 Lab Interpretation (test cod e = 03752-9) Normal [facility] GLUCOSE (AUTOMATED)2024-07-24 03:26:40* Test Item Value Reference Range Interpretation Comme nts POCT GLU (test code = 7284244025) 100 mg/dL 70-110 Lab Interpretation (test cod e = 22717-0) Normal [facility] GLUCOSE (AUTOMATED)2024-07-23 22:46:04* Test Item Value Reference Range Interpretation Comme nts POCT GLU (test code = 9127209407) 126 mg/dL 70-110 H Lab Interpretation (test cod e = 62658-4) Abnormal [facility]2024-07-23 22:46:04* Test Item Value Reference Range Interpretation Comme nts POCT GLU (test code = 2734326737) 126 mg/dL 70-110 H Lab Interpretation (test cod e = 08225-0) Abnormal [facility] Hospital[facility] PROCEDURE [id number] 17:33:33Ordered by an unspecified provider.[facility] HospitalNM LUNG PERFUSION [id number] 21:49:31VENTILATION/PERFUSION (VQ) SCAN INDICATION: Pulmonary hypertension suspected TECHNIQUE:The patient received an intravenous injection of 4 mCi of Tc99m MAA and a6-view lung perfusion scan was obtained. Comparison done to chest x-ray from 06/11/2024. FINDINGS: The lung perfusion is slightly heterogeneous. A defect noted at the rightbase posteriorly are concordant with known small pleural effusion. Also thecardiac silhouette is enlarged and has a prominent impression on the leftlung. The right hemidiaphragm is elevated.No mismatched segmental or subsegmental perfusion defects to suspectpulmonary embolic disease seen.[facility] HospitalXR CHEST 2 [id number] 21:03:04PROCEDURE: XR CHEST 2 VW CLINICAL INDICATION: pulmonary hypertension Pulmonary hypertension suspected COMPARISON: 01/13/2023 FINDINGS:The right hemidiaphragm is elevated. There is bibasal atelectasis and asuspected small right effusion. Perihilar vascular congestion noted. Thecardiac silhouette is en larged.No acute bony abnormality.[facility] HospitalComp. Metabolic Panel (81284)2024-05-29 21:30:30* Test Item Value Reference Range Interpretation Comme nts NA (test code = 4129207232) 136 mmol/L 135-145 K (test code = 2117252871) 3.8 mmol/L 3.5-5.0 CL (test code = 6137910863) 101 mmol/L 98-108 CO2 TOTAL (test code = 3971258036) 27 mmol/L 23-31 AGAP (test code = 8530020146) 8 2-16 BUN (test code = 2672843810) 25 mg/dL 7-23 H GLUCOSE (test code = 0460980401) 87 mg/dL 70-110 CREATININE (test code = 2160-0) 0.65 mg/dL 0.50-1.04 TOTAL BILI (test code = 8574937901) 1.6 mg/dL 0.1-1.1 H CALCIUM (test code = 3311793981) 8.9 mg/dL 8.6-10.6 T PROTEIN (test code = 1797498966) 7.1 g/dL 6.3-8.2 ALBUMIN (test code = 0265124446) 3.4 g/dL 3.5-5.0 L ALK PHOS (test code = 5477409894) 228 U/L 34-122 H ALTv (test code = 1742-6) 15 U/L 5-35 AST(SGOT) (test code = 2124640345) 24 U/L 13-40 eGFR (test code = 97107-3) 104.8 mL/min/1.73m2 CKD-EPI eGFR (2020). Assuming creatinine has been stable day-to-day for at least three months, the eGFR indicates Category G1 (>= 90 mL/min/1.73 m2) Lab Interpretation (test code = 18800-6) Abnormal [facility] HospitalPOID Hemoglobin A1C [id number] 15:11:00* Test Item Value Reference Range Interpretation Comme nts POCT HBA1C (test code = 4548-4) 5.5 % 4-6 Lab Interpretation (test cod e = 83342-3) Normal [facility] [id number] 19:35:59Faye Escalante MD ? ? 03/28/2024 ?2:42 PMWound Care Date/Time: 03/28/2024 2:35 PM Performed by: Faye Escalante MDAuthorized by: Faye Escalante MD ?Consent: ?Consent obtained: ?Verbal ?Consent given by: ?Patient ?Risks, benefits, and alternatives were discussed: yes ? ?Risks discussed: ?Bleeding, infection, pain, incomplete drainage and poor cosmetic result ?Alternatives discussed: ?No treatment and referralUniversal protocol: ?Procedure explained and questions answered to patient or proxy's satisfaction: yes ? ?Relevant documents present and verified: yes ? ?Test results available: yes? ?Patient identity confirmed: ?Verbally with patient, hospital-assigned identification number and arm bandSedation: ?Sedation type: ?NoneAnesthesia: ?Anesthesia method: ?NoneProcedure details: ?Indications: open wounds ? ?Wound location: ?Leg ?Leg location: ?R lower leg ?Wound age (days): ?>14 ?Wound surface area (sq cm): ?10 ?Debridement performed: No ? ?Infected skin BSA: No Infection, goodgranulation tissue.Skin layer closed with: ?Wound care performed: Wound washed and cleaned with NS and Chlorhexidine Soap.Dressing: ?Dressing applied: ?Xeroform 1x8, Unna's boot, Tegaderm 4x5, Telfa pad and Kerlix ?Wrapped with: ?Elastic bandage 4 inch and elastic bandage 3 inchPost-procedure details: ?Procedure completion: ?Tolerated well, no immediate complicationsUnNocona General HospitalTransthoracic echo (TTE)2024-02-07 01:46:26* Test Item Value Reference Range Interpretation Comme nts Height (test code = 4921145484) 66 in Weight (test code = 0255708389) 262 lbs Systolic BP (test code = 6558605473) 126 mmHg Diastolic BP (test code = 1652037904) 56 mmHg Heart Rate (test code = 9507208095) 89 bpm RVOT diameter (test code = 3863186437) 2.44 cm RVOT Proximal Diameter (test code = 4128816207) 3.20 cm MR max PG (test code = 1305063524) 43.30 mm[Hg] MR max raul (test code = 4812925339) 328.90 cm/s Ao root diam (test code = 4758722730) 2.80 cm Mr max raul (test code = 0374441039) 328.9 m/s Aortic root (test code = 2066102007) 2.8 cm Ao root annulus (test code = 4081746855) 2.8 cm BSA (test code = 9622085864) 2.24 m2 LVOT diameter (test code = 6286802047) 1.87 cm LVOT area (test code = 2442877400) 2.80 cm2 LA size (test code = 4437164487) 4.6 cm ACS (test code = 7550488611) 2.25 cm PV PEAK VELOCITY (test code = 8493902769) 97.5 cm/s PV peak gradient (test code = 8371856519) 3.8 mmHg MV E-F slope (test code = 9988536757) 37.70 cm/s MV Peak E Raul (test code = 9331498352) 143.6 cm/s MV valve area p 1/2 method (test code = 2122037075) 3.00 cm2 MV dec slope (test code = 0151800368) 577.60 cm/s2 MV P1/2t max raul (test code = 1573434841) 144.60 cm/s MV Peak A Raul (test code = 4832670403) 115.8 cm/s E/A ratio (test code = 1818052580) 1.24 ratio LVOT stroke volume (test code = 7178070252) 66.70 cm3 LVOT peak raul (test code = 1916430864) 125.2 cm/s LVOT mn grad (test code = 1751157100) 3.0 mmHg AV LVOT peak gradient (test code = 6709311869) 6.3 mmHg LVOT peak VTI (test code = 6570078385) 24.2 cm LV V1 mean (test code = 9073390866) 79.00 cm/s Aortic valve mean velocity (test code = 9131302782) 105.1 cm/s Ao peak raul (test code = 4982637463) 170.0 cm/s Ao VTI (test code = 8995204304) 36.3 cm AV area by cont VTI (test code = 6966101313) 1.8 cm2 AV area peak raul (test code = 5194838050) 2.0 cm2 Ao max PG (test code = 7713246710) 11.60 mm[Hg] AV peak gradient (test code = 0126029607) 11.6 mmHg AV valve area (test code = 8118050342) 1.84 cm2 AV mean gradient (test code = 2656285962) 5.2 mmHg LAV(MOD-sp4) (test code = 2179919730) 55.20 mL LA Volume Index (BP) (test code = 0085300679) 24.3 mL/m2 LA volume (BP) (test code = 9518909365) 54.5 mL LAV(MOD-sp2) (test code = 4330033904) 50.90 mL A4C EF (test code = 8546990618) 53.10 % EF(sp4-el) (test code = 1237596942) 52.00 % SV(MOD-sp4) (test code = 1935948521) 78.50 mL SV(sp4-el) (test code = 9328595924) 78.60 mL LVIDD (test code = 9152592484) 5.40 cm Left Ventricular End Diastolic Volume by Teichholz Method (test code = 8280425) 141.1 mL IVS (test code = 4971261969) 0.98 cm Interventricular Septum Diastolic Thickness by 2D (test code = 9893363) 0.98 cm LVPWD (test code = 0539530391) 0.96 cm PW (test code = 1909141463) 0.96 cm 0.6-1.1 EF(Teich) (test code = 1446026100) 50.80 % LVIDS (test code = 5349145761) 4.00 cm Left Ventricular End Systolic Volume by Teichholz Method (test code = 2578004) 69.4 mL FS (test code = 2854722638) 26 % EF - 2D (test code = 50286776) 50.80 % TR Peak Raul (test code = 9211376800) 401.0 cm/s Triscuspid Valve Regurgitation Peak Gradient (test code = 4545007099) 64.3 mmHg RVOT area (test code = 2651609556) 4.67 cm2 Radiology Study observation (narrative) (test code = 12097-8) GALLITO (test code = GALLITO) ?Left?Ventricle: Left ventricle is mildly dilated. Normal wall thickness. Septal flattening in diastole and systole consistent with right ventricular volume and pressure overload. Normal wall motion. Low normal systolic function with a visually estimated EF of 50 - 55%. There is pseudonormal diastolic dysfunction. ?Tricuspid?Valve: Mild transvalvular regurgitation. Right ventricular systolic pressure is greater than 60 mmHg. ?Left?Atrium: Left atrium is mildly dilated. ?Right?Ventricle: Right ventricle is mildly dilated. Mildly reduced systolic function. ?IVC/SVC: IVC diameter is greater than 21 mm and decreases less than 50% during inspiration; therefore the estimated right atrial pressure is elevated (~15 mmHg). Left VentricleLeft ventricle is mildly dilated. Normal wall thickness. Septal flattening in diastole and systole consistent with right ventricular volume and pressure overload. Normal wall motion. Low normal systolic function with a visually estimated EF of 50 - 55%. There is pseudonormal diastolic dysfunction.Right VentricleRight ventricle is mildly dilated. Mildly reduced systolic function.Left AtriumLeft atrium is mildly dilated.Right AtriumRight atrium size is normal.IVC/SVCIVC diameter is greater than 21 mm and decreases less than 50% during inspiration; therefore the estimated right atrial pressure is elevated (~15 mmHg).Mitral ValveMild mitral annular calcification. Trace transvalvular regurgitation.Tricusp id ValveTricuspid valve structure is normal. Mild transvalvular regurgitation. Right ventricular systolic pressure is greater than 60 mmHg.Aortic ValveAortic valve structure is normal.Pulmonic ValveValve structure is normal. Mild transvalvular regurgitation.Ascendi ng AortaNormal sized aorta.PericardiumThe pericardium is normal. No pericardial effusion.Study DetailsStudy quality was adequate. A complete echocardiogram was performed using 2D, color flow Doppler and spectral Doppler. 3 mL of Optison ultrasound enhancing agent used. [facility] COMBO ULTRASOUND LEFT COMPLETE RIGHT [id number] 22:02:56Examination:BI DIAGNOSTIC TOMOSYNTHESIS BILATERALBI COMBO ULTRASOUND LEFT COMPLETE RIGHT LIMITED History:Patient is 53 year old and is seen for:-There are new calcifications in the lower left centralbreast, anterior to middle depths.-An asymmetry is seen within the outer left breast, posterior depth, 8 cm from the nipple. ?This can be best seen on [facility] image 25 out of 60.-Grouped calcifications are noted in the outer central right breast, middle depth, 4 cm from the nipple. ?These appear changed when compared to prior examination. The patient has a history of endometrial cancer status post hys terectomy and completion of chemotherapy in April 2021. Computer-aided detection (CAD) utilized. Comparisons: 12/02/2023 BI SCREENING TOMOSYNTHESIS BILATERAL and 11/26/2021 BI SCREENING TOMOSYNTHESIS BILATERAL Findings:The breasts have scattered areas of fibroglandular density. LeftBI DIAGNOSTIC TOMOSYNTHESIS BILATERALThere is a large area of coarse heterogeneous and amorphous calcifications involving the central upper and lower breast, anterior to posterior depths, measuring approximately 7.8 x 7.7 x 5.1 cm (L ML 23/71 and magnification views). ?These calcifications are new from 2022 mammogram. There is a benign-appearing intramammary lymph node with an overlying tubular structure, possibly a prominent blood vessel in the outer breast, posterior depth, 8 cm from the nipple (LCC 21/56). There are at least three subcentimeter masses in the retroareolar and lower inner quadrant (LCCNP11&19/55, L ML 18&26/71). BI COMBO ULTRASOUND LEFT COMPLETE RIGHT LIMITEDSurvey ultrasound of the left ?breast was performed. There is no sonographic correlate for the mammographic calcifications. There is a prominent blood vessel with an adjacent normal-appearing intramammary lymph node inthe outer central breast at 9 o'clock, 4 cm from the nipple, correlating with the mammographic finding (image 8-9 and cine clip). There are multiple incidentally noted masses. The masses labeled A-C could correlate with the mammographic masses.A.0.5 x 0.4 x 0.4 cm irregular hypoechoic mass in the retroareolar region (images 13-17). ?B.0.7 x 0.5 x 0.4 cm irregular hypoechoic mass at 8 o'clock, 3 cm from the nipple (images 18-22).C.0.7 x 0.5 x 0.5 cm irregular hypoechoic mass at 6 o'clock, 3 cm from the nipple (images 23-27).D.0.5 x 0.5 x 0.4 cm round hypoechoic mass at 10 o'clock, 4 cm from the nipple (images 28-33). There is a normal-appearing axillary level I lymph node. RightBI DIAGNOSTICTOMOSYNTHESIS BILATERALThere is a group of coarse calcifications in the outer central breast at 9 o'clock, 4 cm from the nipple (R MLO 30/71 and magnification views). ?Progressive coarsening of this group of calcifications when compared to 2022 imaging suggest a benign process. BI COMBO ULTRASOUND LEFT COMPLETE RIGHT LIMITEDTargeted ultrasound of the right breast was performed. No suspicious massis seen in the outer central breast at 9 o'clock, 4 cm from the nipple. There is a normal-appearingaxillary level I lymph node. Impression: 1.Left breast 7.8 cm coarse heterogeneous and amorphous calcifications involving the central upper and lower breast, anterior to posterior depths. ?Tomosynthesis guided biopsy with clip placement is recommended. ?BI-RADS 4B. 2.Left breast 0.5 cm mass in the retroareolar region. ?Ultrasound-guided core biopsy with clip placement is recommended. ?BI-RADS 4B. 3.Left breast 0.7 cm mass at 6 o'clock, ?3 cm from the nipple. ?Ultrasound- guided core biopsy with clip placement is recommended. ?BI-RADS 4B. 4.Two additional subcentimeter incidentally noted left breast masses at 8 o'clock and 10 o'clock, as described above. ?If any of the above biopsies result asurgical process, an additional biopsy may be considered, if clinically indicated. 5. ?No right mammographic evidence of malignancy. Recommendation:Tomosynthesis Biopsy - LeftUltrasound guided core biopsy - LeftUltrasound guided core biopsy - LeftAnnual mammographic follow-up - Right Imaging findings and recommendations for biopsy were discussed with the patient at the time of exam. BI-RADS Catego ry: Left 4B - Suspicious Abnormality - Biopsy Should Be Considered - Moderate Suspicion for MalignancyRight 2 - [facility]BI DI[facility]STIC TOMOSYNTHESIS [id number] 22:02:56Examination:BI DIAGNOSTIC TOMOSYNTHESIS BILATERALBI COMBO ULTRASOUND LEFT COMPLETE RIGHT LIMITED His tory:Patient is 53 year old and is seen for:-There are new calcifications in the lower left centralbreast, anterior to middle depths.-An asymmetry is seen within the outer left breast, posterior depth, 8 cm from the nipple. ?This can be best seen on [facility] image 25 out of 60.-Grouped calcifications are noted in the outer central right breast, middle depth, 4 cm from the nipple. ?These appear changed when compared to prior examination. The patient has a history of endometrial cancer status post hysterectomy and completion of chemotherapy in April 2021. Computer-aided detection (CAD) utilized. Comparisons: 12/02/2023 BI SCREENING TOMOSYNTHESIS BILATERAL and 11/26/2021 BI SCREENING TOMOSYNTHESIS BILATERAL Findings:The breasts have scattered areas of fibroglandular density. LeftBI DIAGNOSTIC TOMOSYNTHESIS BILATERALThere is a large area of coarse heterogeneous and amorphous calcifications involving the central upper and lower breast, anterior to posterior depths, measuring approximately 7.8 x 7.7 x 5.1 cm (L ML 23/71 and magnification views). ?These calcifications are new from 2022 mammogram. There is a benign-appearing intramammary lymph node with an overlying tubular structure, possibly a prominent blood vessel in the outer breast, posterior depth, 8 cm from the nipple (LCC 21/56). There are at least three subcentimeter masses in the retroareolar and lower inner quadrant (LCCNP 11&19/55, L ML 18&26/71). BI COMBO ULTRASOUND LEFT COMPLETE RIGHT LIMITEDSurvey ultrasound of the left ?breast was performed. There is no sonographic correlate for the mammographic calcifications. There is a prominent blood vessel with an adjacent normal-appearing intramammary lymph node inthe outer central breast at 9 o'clock, 4 cm from the nipple, correlating with the mammographic finding (image 8-9 and cine clip). There are multiple incidentally noted masses. The masses labeled A-C could correlate with the mammographic masses.A.0.5 x 0.4 x 0.4 cm irregular hypoechoic mass in the retroareolar region (images 13-17). ?B.0.7 x 0.5 x 0.4 cm irregular hypoechoic mass at 8 o'clock, 3 cm from the nipple (images 18-22).C.0.7 x 0.5 x 0.5 cm irregular hypoechoic mass at 6 o'clock, 3 cm from the nipple (images 23-27).D.0.5 x 0.5 x 0.4 cm round hypoechoic mass at 10 o'clock, 4 cm from the nipple (images 28-33). There is a normal-appearing axillary level I lymph node. RightBI DIAGNOSTICTOMOSYNTHESIS BILATERALThere is a group of coarse calcifications in the outer central breast at 9 o'clock, 4 cm from the nipple (R MLO 30/71 and magnification views). ?Progressive coarsening of this group of calcifications when compared to 2022 imaging suggest a benign process. BI COMBO ULTRASOUND LEFT COMPLETE RIGHT LIMITEDTargeted ultrasound of the right breast was performed. No suspicious mass is seen in the outer central breast at 9 o'clock, 4 cm from the nipple. There is a normal-appearingaxillary level I lymph node. Impression: 1.Left breast 7.8 cm coarse heterogeneous and amorphous calcifications involving the central upper and lower breast, anterior to posterior depths. ?Tomosynthesis guided biopsy with clip placement is recommended. ?BI-RADS 4B. 2.Left breast 0.5 cm mass in the retroareolar region. ?Ultrasound-guided core biopsy with clip placement is recommended. ?BI-RADS 4B.3.Left breast 0.7 cm mass at 6 o'clock, ?3 cm from the nipple. ?Ultrasound-guided core biopsy with clip placement is recommended. ?BI- RADS 4B. 4.Two additional subcentimeter incidentally noted left breast masses at 8 o'clock and 10 o'clock, as described above. ?If any of the above biopsies result asurgical process, an additional biopsy may be considered, if clinically indicated. 5. ?No right mammographic evidence of malignancy. Recommendation:Tomosynthesis Biopsy - LeftUltrasound guided core biopsy - LeftUltrasound guided core biopsy - LeftAnnual mammographic follow-up - Right Imaging findings and recommendations for biopsy were discussed with the patient at the time of exam. BI-RADS Category: Left 4B - Suspicious Abnormality - Biopsy Should Be Considered - Moderate Suspicion for MalignancyRight 2 - Benign [facility]. Metabolic Panel ([id number])2023-12-21 03:46:19* Test Item Value Reference Range Interpretation Comme nts NA (test code = 4269316729) 139 mmol/L 135-145 K (test code = 6510317692) 4.5 mmol/L 3.5-5.0 CL (test code = 2175828234) 101 mmol/L 98-108 CO2 TOTAL (test code = 6044542931) 27 mmol/L 23-31 AGAP (test code = 4096655458) 11 2-16 BUN (test code = 2807830050) 16 mg/dL 7-23 GLUCOSE (test code = 0284433286) 132 mg/dL 70-110 H CREATININE (test code = 2160-0) 0.56 mg/dL 0.50-1.04 TOTAL BILI (test code = 6519898055) 1.6 mg/dL 0.1-1.1 H CALCIUM (test code = 3233769623) 9.6 mg/dL 8.6-10.6 T PROTEIN (test code = 7379449916) 7.2 g/dL 6.3-8.2 ALBUMIN (test code = 6212568447) 3.9 g/dL 3.5-5.0 ALK PHOS (test code = 4426294292) 268 U/L 34-122 H ALTv (test code = 1742-6) 23 U/L 5-35 AST(SGOT) (test code = 4519341483) 33 U/L 13-40 eGFR (test code = 85592-7) 108.6 mL/min/1.73m2 CKD-EPI eGFR (2020). Assuming creatinine has been stable day-to-day for at least three months, the eGFR indicates Category G1 (>= 90 mL/min/1.73 m2) Lab Interpretation (test code = 87729-7) Abnormal [facility]. Metabolic Panel ([id number])2023-12-21 03:46:19* Test Item Value Reference Range Interpretation Comme nts NA (test code = 8764611639) 139 mmol/L 135-145 K (test code = 9427884551) 4.5 mmol/L 3.5-5.0 CL (test code = 3239817784) 101 mmol/L 98-108 CO2 TOTAL (test code = 1579058340) 27 mmol/L 23-31 AGAP (test code = 7998830718) 11 2-16 BUN (test code = 3046653338) 16 mg/dL 7-23 GLUCOSE (test code = 4748680796) 132 mg/dL 70-110 H CREATININE (test code = 2160-0) 0.56 mg/dL 0.50-1.04 TOTAL BILI (test code = 2193454596) 1.6 mg/dL 0.1-1.1 H CALCIUM (test code = 0951207818) 9.6 mg/dL 8.6-10.6 T PROTEIN (test code = 2438852736) 7.2 g/dL 6.3-8.2 ALBUMIN (test code = 8891366260) 3.9 g/dL 3.5-5.0 ALK PHOS (test code = 7595732355) 268 U/L 34-122 H ALTv (test code = 1742-6) 23 U/L 5-35 AST(SGOT) (test code = 7968575030) 33 U/L 13-40 eGFR (test code = 23873-3) 108.6 mL/min/1.73m2 CKD-EPI eGFR (2020). Assuming creatinine has been stable day-to-day for at least three months, the eGFR indicates Category G1 (>= 90 mL/min/1.73 m2) Lab Interpretation (test code = 02728-4) Abnormal [facility] with [id number] 22:21:42* Test Item Value Reference Range Interpretation Comme nts WBC (test code = 6690-2) 5.73 4.30-11.10 RBC (test code = 789-8) 4.08 3.93-5.25 HGB (test code = 718-7) 10.1 g/dL 11.6-15.0 L HCT (test code = 4544-3) 33.6 % 35.7-45.2 L MCV (test code = 787-2) 82.4 fL 80.6-95.5 MCH (test code = 785-6) 24.8 pg 25.9-32.8 L MCHC (test code = 786-4) 30.1 g/dL 31.6-35.1 L RDW-SD (test code = 28955-8) 53.4 fL 39.0-49.9 H RDW-CV (test code = 788-0) 17.9 % 12.0-15.5 H PLT (test code = 777-3) 273 166-358 MPV (test code = 00033-9) 9.9 fL 9.5-12.9 NRBC/100 WBC (test code = 8437062752) 0.0 0.0-10.0 NRBC x10^3 (test code = 2121022347) See_Comment [Automated messa ge] The system which generated this result transmitted reference range: 10*3/?L. The reference range was not used to interpret this result as normal/abnormal. GRAN MAT (NEUT) % (test code = 770-8) 68.3 % IMM GRAN % (test code = 6425848471) 0.50 % LYMPH % (test code = 736-9) 21.3 % MONO % (test code = 5905-5) 8.9 % EOS % (test code = 713-8) 0.7 % BASO % (test code = 706-2) 0.3 % GRAN MAT x10^3(ANC) (test code = 8970696607) 3.91 10*3/uL 1.88-7.09 IMM GRAN x10^3 (test code = 5349437930) 0.03 10*3/uL 0.00-0.06 LYMPH x10^3 (test code = 731-0) 1.22 10*3/uL 1.32-3.29 L MONO x10^3 (test code = 742-7) 0.51 10*3/uL 0.33-0.92 EOS x10^3 (test code = 711-2) 0.04 10*3/uL 0.03-0.39 BASO x10^3 (test code = 704-7) 0.01-0.07 Lab Interpretation (test code = 90295-0) [facility] [id number] 22:21:42* Test Item Value Reference Range Interpretation Comme nts WBC (test code = 6690-2) 5.73 4.30-11.10 RBC (test code = 789-8) 4.08 3.93-5.25 HGB (test code = 718-7) 10.1 g/dL 11.6-15.0 L HCT (test code = 4544-3) 33.6 % 35.7-45.2 L MCV (test code = 787-2) 82.4 fL 80.6-95.5 MCH (test code = 785-6) 24.8 pg 25.9-32.8 L MCHC (test code = 786-4) 30.1 g/dL 31.6-35.1 L RDW-SD (test code = 73524-2) 53.4 fL 39.0-49.9 H RDW-CV (test code = 788-0) 17.9 % 12.0-15.5 H PLT (test code = 777-3) 273 166-358 MPV (test code = 30277-2) 9.9 fL 9.5-12.9 NRBC/100 WBC (test code = 3138364966) 0.0 0.0-10.0 NRBC x10^3 (test code = 6875931961) See_Comment [Automated messa ge] The system which generated this result transmitted reference range: 10*3/?L. The reference range was not used to interpret this result as normal/abnormal. GRAN MAT (NEUT) % (test code = 770-8) 68.3 % IMM GRAN % (test code = 8887680540) 0.50 % LYMPH % (test code = 736-9) 21.3 % MONO % (test code = 5905-5) 8.9 % EOS % (test code = 713-8) 0.7 % BASO % (test code = 706-2) 0.3 % GRAN MAT x10^3(ANC) (test code = 9016567057) 3.91 10*3/uL 1.88-7.09 IMM GRAN x10^3 (test code = 1637364804) 0.03 10*3/uL 0.00-0.06 LYMPH x10^3 (test code = 731-0) 1.22 10*3/uL 1.32-3.29 L MONO x10^3 (test code = 742-7) 0.51 10*3/uL 0.33-0.92 EOS x10^3 (test code = 711-2) 0.04 10*3/uL 0.03-0.39 BASO x10^3 (test code = 704-7) 0.01-0.07 Lab Interpretation (test code = 10854-9) Abnormal [facility] Receptor Antibody (TRAB)2023-11-29 18:00:11* Test Item Value Reference Range Interpretation Comme nts TSH AB (test code = 5385-0) >40.00 See_Comment H Performed By: [address] [address]Ywntxmtuiy Director: Clifton Collins MD, PhDCLIA Number: [id number] [Automated message] The system which generated this result transmitted reference range: <=1.75 IU/L. The reference range was not used to interpret this result as normal/abnormal. Lab Interpretation (test code = 82732-3) [facility]normal [facility] [id number] 21:48:09 * Test Item Value Reference Range Interpretation Comme nts TSH (test code = 3604481707) 0.45-4.70 L Lab Interpretation (test cod e = 22326-2) [facility] [id number] 21:34:27* Test Item Value Reference Range Interpretation Comme nts FREE T4 (test code = 7660647094) 4.66 0.78-2.20 H Lab Interpretation (test cod e = 60399-6) Abnormal [facility] [id number] 21:34:07* Test Item Value Reference Range Interpretation Comme nts FREE T3 (test code = 1531418959) 15.30 pg/mL 2.77-5.27 H Lab Interpretation (test cod e = 03026-0) Abnormal [facility] HEMOGLOBIN A1C [id number] 22:00:00* Test Item Value Reference Range Interpretation Comme nts POCT HBA1C (test code = 4548-4) 7.0 % 4-6 A Lab Interpretation (test cod e = 91965-7) Abnormal [facility] HEMOGLOBIN A1C [id number] 22:00:00* Test Item Value Reference Range Interpretation Comme nts POCT HBA1C (test code = 4548-4) 7.0 % 4-6 A Lab Interpretation (test cod e = 72474-7) Abnormal [facility] HEMOGLOBIN A1C [id number] 22:00:00* Test Item Value Reference Range Interpretation Comme nts POCT HBA1C (test code = 4548-4) 7.0 % 4-6 A Lab Interpretation (test cod e = 17205-9) Abnormal [facility] HEMOGLOBIN A1C [id number] 22:00:00* Test Item Value Reference Range Interpretation Comme nts POCT HBA1C (test code = 4548-4) 7.0 % 4-6 A Lab Interpretation (test cod e = 54070-1) Abnormal [facility] WITH [id number] 03:48:34* Test Item Value Reference Range Interpretation Comme nts WBC (test code = 6690-2) 6.45 See_Comment [Automated messa ge] The system which generated this result transmitted reference range: 4.30 - 11.10 10*3/?L. The reference range was not used to interpret this result as normal/abnormal. RBC (test code = 789-8) 4.57 See_Comment [Automated [employer]] The system which generated this result transmitted reference range: 3.93 - 5.25 10*6/?L. The reference range was not used to interpret this result as normal/abnormal. HGB (test code = 718-7) 10.5 g/dL 11.6-15.0 L HCT (test code = 4544-3) 34.5 % 35.7-45.2 L MCV (test code = 787-2) 75.5 fL 80.6-95.5 L MCH (test code = 785-6) 23.0 pg 25.9-32.8 L MCHC (test code = 786-4) 30.4 g/dL 31.6-35.1 L RDW-SD (test code = 26803-8) 45.7 fL 39.0-49.9 RDW-CV (test code = 788-0) 16.9 % 12.0-15.5 H PLT (test code = 777-3) 331 See_Comment [Automated [employer]] The system which generated this result transmitted reference range: 166 - 358 10*3/?L. The reference range was not used to interpret this result as normal/abnormal. MPV (test code = 26526-2) 9.9 fL 9.5-12.9 NRBC/100 WBC (test code = 1223580813) 0.0 See_Comment [Automated [place] [employer]] The system which generated this result transmitted reference range: 0.0 - 10.0 /100 WBCs. The reference range was not used to interpret this result as normal/abnormal. NRBC x10^3 (test code = 7176953630) See_Comment [Automated [employer]] The system which generated this result transmitted reference range: 10*3/?L. The reference range was not used to interpret this result as normal/abnormal. GRAN MAT (NEUT) % (test code = 770-8) 62.2 % IMM GRAN % (test code = 1237666018) 0.00 % LYMPH % (test code = 736-9) 24.3 % MONO % (test code = 5905-5) 10.7 % EOS % (test code = 713-8) 2.3 % BASO % (test code = 706-2) 0.5 % GRAN MAT x10^3(ANC) (test code = 1843245104) 4.01 10*3/uL 1.88-7.09 IMM GRAN x10^3 (test code = 8337120134) 0.00-0.06 LYMPH x10^3 (test code = 731-0) 1.57 10*3/uL 1.32-3.29 MONO x10^3 (test code = 742-7) 0.69 10*3/uL 0.33-0.92 EOS x10^3 (test code = 711-2) 0.15 10*3/uL 0.03-0.39 BASO x10^3 (test code = 704-7) 0.03 10*3/uL 0.01-0.07 Lab Interpretation (test code = 81709-4) Abnormal [facility] HEMOGLOBIN A1C [id number] 19:37:00* Test Item Value Reference Range Interpretation Comme nts POCT HBA1C (test code = 4548-4) 7.0 % 4-6 A Lab Interpretation (test cod e = 68623-6) Abnormal [facility] HEMOGLOBIN A1C [id number] 19:37:00* Test Item Value Reference Range Interpretation Comme nts POCT HBA1C (test code = 4548-4) 7.0 % 4-6 A Lab Interpretation (test cod e = 45871-4) Abnormal [facility] GLUCOSE (AUTOMATED)2023-03-02 16:34:16* Test Item Value Reference Range Interpretation Comme nts POCT GLU (test code = 1634406630) 80 mg/dL 70-110 Lab Interpretation (test cod e = 23792-2) Normal [facility] GLUCOSE (AUTOMATED)2023-03-02 16:34:16* Test Item Value Reference Range Interpretation Comme nts POCT GLU (test code = 6099823542) 80 mg/dL 70-110 Lab Interpretation (test cod e = 19007-0) Normal [facility] HEMOGLOBIN A1C [id number] 20:00:00* Test Item Value Reference Range Interpretation Comme nts POCT HBA1C (test code = 4548-4) 6.4 % 4-6 A Lab Interpretation (test cod e = 31823-3) Abnormal [facility] HEMOGLOBIN A1C [id number] 20:00:00* Test Item Value Reference Range Interpretation Comme nts POCT HBA1C (test code = 4548-4) 6.4 % 4-6 A Lab Interpretation (test cod e = 97372-3) Abnormal [facility] GLUCOSE (AUTOMATED)2022-12-10 13:49:19* Test Item Value Reference Range Interpretation Comme nts POCT GLU (test code = 3426693726) 154 mg/dL 70-110 H Lab Interpretation (test cod e = 94587-5) Abnormal [facility] GLUCOSE (AUTOMATED)2022-12-10 12:49:09* Test Item Value Reference Range Interpretation Comme nts POCT GLU (test code = 1072478153) 148 mg/dL 70-110 H Lab Interpretation (test cod e = 13708-5) Abnormal [facility] GLUCOSE (AUTOMATED)2022-12-10 09:35:32* Test Item Value Reference Range Interpretation Comme nts POCT GLU (test code = 7285922405) 144 mg/dL 70-110 H Lab Interpretation (test cod e = 86225-6) Abnormal [facility] GLUCOSE (AUTOMATED)2022-12-10 05:03:51* Test Item Value Reference Range Interpretation Comme nts POCT GLU (test code = 3950191082) 155 mg/dL 70-110 H Lab Interpretation (test cod e = 59810-4) Abnormal [facility] GLUCOSE (AUTOMATED)2022-12-10 01:41:29* Test Item Value Reference Range Interpretation Comme nts POCT GLU (test code = 9260697618) 144 mg/dL 70-110 H Lab Interpretation (test cod e = 25096-8) Abnormal [facility] GLUCOSE (AUTOMATED)2022-12-09 22:29:26* Test Item Value Reference Range Interpretation Comme nts POCT GLU (test code = 4044848958) 216 mg/dL 70-110 H Lab Interpretation (test cod e = 42844-6) Abnormal [facility] GLUCOSE (AUTOMATED)2022-12-09 17:36:52* Test Item Value Reference Range Interpretation Comme nts POCT GLU (test code = 2995287489) 180 mg/dL 70-110 H Lab Interpretation (test cod e = 18457-3) [facility] 16:56:18* Test Item Value Reference Range Interpretation Comme nts POCT GLU (test code = 9028243845) 201 mg/dL 70-110 H Lab Interpretation (test cod e = 92357-2) [facility] 13:23:24* Test Item Value Reference Range Interpretation Comme nts POCT GLU (test code = 7825548451) 181 mg/dL 70-110 H Lab Interpretation (test cod e = 98219-5) Abnormal [facility] GLUCOSE (AUTOMATED)2022-12-09 09:41:45* Test Item Value Reference Range Interpretation Comme nts POCT GLU (test code = 9492398476) 131 mg/dL 70-110 H Lab Interpretation (test cod e = 46100-3) Abnormal [facility] GLUCOSE (AUTOMATED)2022-12-09 05:33:12* Test Item Value Reference Range Interpretation Comme nts POCT GLU (test code = 9442622545) 174 mg/dL 70-110 H Lab Interpretation (test cod e = 39415-1) Abnormal [facility] GLUCOSE (AUTOMATED)2022-12-09 01:37:44* Test Item Value Reference Range Interpretation Comme nts POCT GLU (test code = 8432575042) 200 mg/dL 70-110 H Lab Interpretation (test cod e = 12840-5) [facility]22-[facility]-08 22:21:38* Test Item Value Reference Range Interpretation Comme nts POCT GLU (test code = 8521728667) 207 mg/dL 70-110 H Lab Interpretation (test cod e = 17117-1) [facility]2022-12-08 16:50:07* Test Item Value Reference Range Interpretation Comme nts POCT GLU (test code = 8891433790) 191 mg/dL 70-110 H Lab Interpretation (test cod e = 12909-9) [facility]2022-[facility]-08 03:02:11* Test Item Value Reference Range Interpretation Comme nts POCT GLU (test code = 1539979218) 176 mg/dL 70-110 H Lab Interpretation (test cod e = 51147-9) [facility]2022-12-07 23:05:33* Test Item Value Reference Range Interpretation Comme nts POCT GLU (test code = 1968755580) 226 mg/dL 70-110 H Lab Interpretation (test cod e = 29170-0) [facility] 21:39:50* Test Item Value Reference Range Interpretation Comme nts POCT GLU (test code = 8612116808) 215 mg/dL 70-110 H Lab Interpretation (test cod e = 83460-9) Abnormal [facility] GLUCOSE (AUTOMATED)2022-12-07 17:34:24* Test Item Value Reference Range Interpretation Comme nts POCT GLU (test code = 0264220354) 212 mg/dL 70-110 H Lab Interpretation (test cod e = 30884-4) [facility] 13:48:15* Test Item Value Reference Range Interpretation Comme nts POCT GLU (test code = 2811751254) 157 mg/dL 70-110 H Lab Interpretation (test cod e = 06379-0) [facility] 02:52:37* Test Item Value Reference Range Interpretation Comme nts POCT GLU (test code = 4994207198) 237 mg/dL 70-110 H Lab Interpretation (test cod e = 99130-6) [facility] 21:12:23* Test Item Value Reference Range Interpretation Comme nts POCT GLU (test code = 0674586038) 197 mg/dL 70-110 H Lab Interpretation (test cod e = 95600-0) Abnormal [facility] GLUCOSE (AUTOMATED)2022-12-06 17:42:06* Test Item Value Reference Range Interpretation Comme nts POCT GLU (test code = 6438764408) 230 mg/dL 70-110 H Lab Interpretation (test cod e = 11081-7) Abnormal [facility] GLUCOSE (AUTOMATED)2022-12-06 13:06:50* Test Item Value Reference Range Interpretation Comme nts POCT GLU (test code = 7822039870) 235 mg/dL 70-110 H Lab Interpretation (test cod e = 20695-5) [facility]:04:13* Test Item Value Reference Range Interpretation Comme nts PHOSPHORUS (test code = 2856350321) 3.7 mg/dL 2.5-5.0 Lab Interpretation (test cod e = 21499-0) [facility] 12:04:13* Test Item Value Reference Range Interpretation Comme nts MAGNESIUM (test code = 7199180335) 1.7 mg/dL 1.7-2.4 Lab Interpretation (test cod e = 44021-0) Normal [facility] GLUCOSE (AUTOMATED)2022-12-06 01:46:08* Test Item Value Reference Range Interpretation Comme nts POCT GLU (test code = 1506054578) 249 mg/dL 70-110 H Lab Interpretation (test cod e = 68382-7) Abnormal [facility] GLUCOSE (AUTOMATED)2022-12-05 21:54:58* Test Item Value Reference Range Interpretation Comme nts POCT GLU (test code = 3800809027) 271 mg/dL 70-110 H Lab Interpretation (test cod e = 70621-0) Abnormal [facility] GLUCOSE (AUTOMATED)2022-12-05 16:53:59* Test Item Value Reference Range Interpretation Comme nts POCT GLU (test code = 5085010993) 224 mg/dL 70-110 H Lab Interpretation (test cod e = 71604-8) Abnormal [facility] GLUCOSE (AUTOMATED)2022-12-05 13:10:34* Test Item Value Reference Range Interpretation Comme nts POCT GLU (test code = 9296675785) 250 mg/dL 70-110 H Lab Interpretation (test cod e = 93362-3) Abnormal [facility] WITH [id number] 10:59:59* Test Item Value Reference Range Interpretation Comme nts WBC (test code = 6690-2) 9.37 See_Comment [Automated messa ge] The system which generated this result transmitted reference range: 4.30 - 11.10 10*3/?L. The reference range was not used to interpret this result as normal/abnormal. RBC (test code = 789-8) 2.38 See_Comment L [Automated messa ge] The system which generated this result transmitted reference range: 3.93 - 5.25 10*6/?L. The reference range was not used to interpret this result as normal/abnormal. HGB (test code = 718-7) 6.4 g/dL 11.6-15.0 L HCT (test code = 4544-3) 20.4 % 35.7-45.2 L MCV (test code = 787-2) 85.7 fL 80.6-95.5 MCH (test code = 785-6) 26.9 pg 25.9-32.8 MCHC (test code = 786-4) 31.4 g/dL 31.6-35.1 L RDW-SD (test code = 62502-3) 51.0 fL 39.0-49.9 H RDW-CV (test code = 788-0) 16.6 % 12.0-15.5 H PLT (test code = 777-3) 452 See_Comment H [Automated messa ge] The system which generated this result transmitted reference range: 166 - 358 10*3/?L. The reference range was not used to interpret this result as normal/abnormal. MPV (test code = 61415-9) 8.7 fL 9.5-12.9 L NRBC/100 WBC (test code = 3052018500) 2.9 See_Comment [Automated [place] [place]] The system which generated this result transmitted reference range: 0.0 - 10.0 /100 WBCs. The reference range was not used to interpret this result as normal/abnormal. NRBC x10^3 (test code = 0454774191) 0.27 See_Comment [Automated messa ge] The system which generated this result transmitted reference range: 10*3/?L. The reference range was not used to interpret this result as normal/abnormal. GRAN MAT (NEUT) % (test code = 770-8) 63.0 % IMM GRAN % (test code = 4702067722) 9.60 % LYMPH % (test code = 736-9) 16.1 % MONO % (test code = 5905-5) 7.9 % EOS % (test code = 713-8) 3.1 % BASO % (test code = 706-2) 0.3 % GRAN MAT x10^3(ANC) (test code = 9551006056) 5.90 10*3/uL 1.88-7.09 IMM GRAN x10^3 (test code = 3555401934) 0.90 10*3/uL 0.00-0.06 H LYMPH x10^3 (test code = 731-0) 1.51 10*3/uL 1.32-3.29 MONO x10^3 (test code = 742-7) 0.74 10*3/uL 0.33-0.92 EOS x10^3 (test code = 711-2) 0.29 10*3/uL 0.03-0.39 BASO x10^3 (test code = 704-7) 0.03 10*3/uL 0.01-0.07 Lab Interpretation (test code = 67645-0) [facility] 10:42:52* Test Item Value Reference Range Interpretation Comme nts PHOSPHORUS (test code = 7073832615) 3.9 mg/dL 2.5-5.0 Lab Interpretation (test cod e = 65470-0) [facility] 10:42:52* Test Item Value Reference Range Interpretation Comme nts MAGNESIUM (test code = 2986849399) 1.9 mg/dL 1.7-2.4 Lab Interpretation (test cod e = 88776-9) [facility] (NA, K, CL, CO2, GLUCOSE, BUN, CREATININE, CA)2022-12-05 10:42:52* Test Item Value Reference Range Interpretation Comme nts NA (test code = 3436604857) 138 mmol/L 135-145 K (test code = 7247367440) 4.1 mmol/L 3.5-5.0 CL (test code = 0878296096) 103 mmol/L 98-108 CO2 TOTAL (test code = 8838661544) 30 mmol/L 23-31 AGAP (test code = 5394114024) 5 2-16 BUN (test code = 3198174820) 28 mg/dL 7-23 H GLUCOSE (test code = 9287940135) 142 mg/dL 70-110 H CREATININE (test code = 0479852533) 1.09 mg/dL 0.50-1.04 H CALCIUM (test code = 7167565471) 8.1 mg/dL 8.6-10.6 L eGFR (test code = 9838028161) 52.5 mL/min/1.73m2 GALLITO (test code = GALLITO) Association of [...] or abnormalities in imaging tests). Lab Interpretation (test code = 02175-0) Abnormal [facility] GLUCOSE (AUTOMATED)2022-12-05 01:41:26* Test Item Value Reference Range Interpretation Comme nts POCT GLU (test code = 9125058962) 223 mg/dL 70-110 H Lab Interpretation (test cod e = 35120-4) Abnormal [facility] GLUCOSE (AUTOMATED)2022-12-04 22:59:32* Test Item Value Reference Range Interpretation Comme nts POCT GLU (test code = 1249621214) 212 mg/dL 70-110 H Lab Interpretation (test cod e = 60318-7) Abnormal [facility] Culture - Peripheral # 22:01:12* Test Item Value Reference Range Interpretation Comme nts Blood Culture-Aerobic (test code = 28376-5) No organisms isolated No growth Previous preliminary verified result was Culture In Progress on 11/29/2022 at 2000 CDTPrevious preliminary verified result was No growth at 24 hours on 11/30/2022 at 1701 CDTPrevious preliminary verified result was No growth at 48 hours on 12/01/2022 at 1702 CDTPrevious preliminary verified result was No growth at 72 hours on 12/02/2022 at 1702 CDT Blood Culture-Anaerobic (test code = 74426-2) No organisms isolated No growth Previous preliminary verified result was Culture In Progress on 11/29/2022 at 2000 CDTPrevious preliminary verified result was No growth at 24 hours on 11/30/2022 at 1701 CDTPrevious preliminary verified result was No growth at 48 hours on 12/01/2022 at 1702 CDTPrevious preliminary verified result was No growth at 72 hours on 12/02/2022 at 1702 CDT Lab Interpretation (test code = 39806-1) Normal [facility] Culture - Peripheral # 22:01:12* Test Item Value Reference Range Interpretation Comme nts Blood Culture-Aerobic (test code = 19622-5) No organisms isolated No growth Previous preliminary verified result was Culture In Progress on 11/29/2022 at 2001 CDTPrevious preliminary verified result was No growth at 24 hours on 11/30/2022 at 1701 CDTPrevious preliminary verified result was No growth at 48 hours on 12/01/2022 at 1702 CDTPrevious preliminary verified result was No growth at 72 hours on 12/02/2022 at 1702 CDT Blood Culture-Anaerobic (test code = 56811-3) No organisms isolated No growth Previous preliminary verified result was Culture In Progress on 11/29/2022 at 2002 CDTPrevious preliminary verified result was No growth at 24 hours on 11/30/2022 at 1701 CDTPrevious preliminary verified result was No growth at 48 hours on 12/01/2022 at 1702 CDTPrevious preliminary verified result was No growth at 72 hours on 12/02/2022 at 1702 CDT Lab Interpretation (test code = 44074-7) Normal [facility] GLUCOSE (AUTOMATED)2022-12-04 17:06:06* Test Item Value Reference Range Interpretation Comme nts POCT GLU (test code = 5503955540) 158 mg/dL 70-110 H Lab Interpretation (test cod e = 16078-5) Abnormal [facility] GLUCOSE (AUTOMATED)2022-12-04 13:05:56* Test Item Value Reference Range Interpretation Comme nts POCT GLU (test code = 1773219004) 116 mg/dL 70-110 H Lab Interpretation (test cod e = 62081-8) Abnormal [facility] WITH [id number] 11:10:35* Test Item Value Reference Range Interpretation Comme nts WBC (test code = 6690-2) 9.24 See_Comment [Automated messa ge] The system which generated this result transmitted reference range: 4.30 - 11.10 10*3/?L. The reference range was not used to interpret this result as normal/abnormal. RBC (test code = 789-8) 2.48 See_Comment L [Automated messa ge] The system which generated this result transmitted reference range: 3.93 - 5.25 10*6/?L. The reference range was not used to interpret this result as normal/abnormal. HGB (test code = 718-7) 6.5 g/dL 11.6-15.0 L HCT (test code = 4544-3) 21.0 % 35.7-45.2 L MCV (test code = 787-2) 84.7 fL 80.6-95.5 MCH (test code = 785-6) 26.2 pg 25.9-32.8 MCHC (test code = 786-4) 31.0 g/dL 31.6-35.1 L RDW-SD (test code = 75689-8) 50.5 fL 39.0-49.9 H RDW-CV (test code = 788-0) 16.4 % 12.0-15.5 H PLT (test code = 777-3) 412 See_Comment H [Automated messa ge] The system which generated this result transmitted reference range: 166 - 358 10*3/?L. The reference range was not used to interpret this result as normal/abnormal. MPV (test code = 50458-8) 9.1 fL 9.5-12.9 L NRBC/100 WBC (test code = 2495646561) 1.6 See_Comment [Automated [place]] The system which generated this result transmitted reference range: 0.0 - 10.0 /100 WBCs. The reference range was not used to interpret this result as normal/abnormal. NRBC x10^3 (test code = 0682428368) 0.15 See_Comment [Automated messa ge] The system which generated this result transmitted reference range: 10*3/?L. The reference range was not used to interpret this result as normal/abnormal. GRAN MAT (NEUT) % (test code = 770-8) 65.4 % IMM GRAN % (test code = 5884044516) 6.30 % LYMPH % (test code = 736-9) 17.9 % MONO % (test code = 5905-5) 7.3 % EOS % (test code = 713-8) 2.7 % BASO % (test code = 706-2) 0.4 % GRAN MAT x10^3(ANC) (test code = 1500955289) 6.05 10*3/uL 1.88-7.09 IMM GRAN x10^3 (test code = 8002657671) 0.58 10*3/uL 0.00-0.06 H LYMPH x10^3 (test code = 731-0) 1.65 10*3/uL 1.32-3.29 MONO x10^3 (test code = 742-7) 0.67 10*3/uL 0.33-0.92 EOS x10^3 (test code = 711-2) 0.25 10*3/uL 0.03-0.39 BASO x10^3 (test code = 704-7) 0.04 10*3/uL 0.01-0.07 Lab Interpretation (test code = 44373-1) [facility]:27* Test Item Value Reference Range Interpretation Comme nts PHOSPHORUS (test code = 0766984107) 4.4 mg/dL 2.5-5.0 Lab Interpretation (test cod e = 85150-0) [facility] (NA, K, CL, CO2, GLUCOSE, BUN, CREATININE, CA)2022-12-04 10:47:27* Test Item Value Reference Range Interpretation Comme nts NA (test code = 5297832141) 135 mmol/L 135-145 K (test code = 1200844871) 3.8 mmol/L 3.5-5.0 CL (test code = 5516691877) 101 mmol/L 98-108 CO2 TOTAL (test code = 4003516331) 27 mmol/L 23-31 AGAP (test code = 8697178527) 7 2-16 BUN (test code = 5284656846) 31 mg/dL 7-23 H GLUCOSE (test code = 1614165805) 108 mg/dL 70-110 CREATININE (test code = 9524502626) 1.42 mg/dL 0.50-1.04 H CALCIUM (test code = 2758287513) 7.9 mg/dL 8.6-10.6 L eGFR (test code = 4302554180) 38.7 mL/min/1.73m2 GALLITO (test code = GALLITO) Association of [...] or abnormalities in imaging tests). Lab Interpretation (test code = 26895-6) [facility]:06* Test Item Value Reference Range Interpretation Comme nts MAGNESIUM (test code = 8663534318) 2.3 mg/dL 1.7-2.4 Lab Interpretation (test cod e = 52701-7) Normal [facility] GLUCOSE (AUTOMATED)2022-12-04 09:15:19* Test Item Value Reference Range Interpretation Comme nts POCT GLU (test code = 4577512169) 130 mg/dL 70-110 H Lab Interpretation (test cod e = 80011-1) Abnormal [facility] GLUCOSE (AUTOMATED)2022-12-04 05:01:00* Test Item Value Reference Range Interpretation Comme nts POCT GLU (test code = 5176525426) 127 mg/dL 70-110 H Lab Interpretation (test cod e = 29756-5) Abnormal [facility] GLUCOSE (AUTOMATED)2022-12-04 01:10:20* Test Item Value Reference Range Interpretation Comme nts POCT GLU (test code = 8619365068) 162 mg/dL 70-110 H Lab Interpretation (test cod e = 27642-0) Abnormal [facility] GLUCOSE (AUTOMATED)2022-12-03 21:49:29* Test Item Value Reference Range Interpretation Comme nts POCT GLU (test code = 6522861010) 220 mg/dL 70-110 H Lab Interpretation (test cod e = 45120-3) Abnormal [facility] GLUCOSE (AUTOMATED)2022-12-03 17:02:56* Test Item Value Reference Range Interpretation Comme nts POCT GLU (test code = 9327455366) 197 mg/dL 70-110 H Lab Interpretation (test cod e = 13947-5) Abnormal [facility] GLUCOSE (AUTOMATED)2022-12-03 17:02:56* Test Item Value Reference Range Interpretation Comme nts POCT GLU (test code = 1221949538) 197 mg/dL 70-110 H Lab Interpretation (test cod e = 38216-9) Abnormal [facility] GLUCOSE (AUTOMATED)2022-12-03 12:25:48* Test Item Value Reference Range Interpretation Comme nts POCT GLU (test code = 5846061909) 262 mg/dL 70-110 H Lab Interpretation (test cod e = 77926-8) Abnormal [facility] GLUCOSE (AUTOMATED)2022-12-03 12:25:48* Test Item Value Reference Range Interpretation Comme nts POCT GLU (test code = 9742786520) 262 mg/dL 70-110 H Lab Interpretation (test cod e = 84698-8) Abnormal [facility] METABOLIC PANEL (NA, K, CL, CO2, GLUCOSE, BUN, CREATININE, CA)2022-12-03 10:31:33* Test Item Value Reference Range Interpretation Comme nts NA (test code = 2486759316) 130 mmol/L 135-145 L K (test code = 5517758573) 4.5 mmol/L 3.5-5.0 CL (test code = 8255633841) 99 mmol/L 98-108 CO2 TOTAL (test code = 6318770676) 25 mmol/L 23-31 AGAP (test code = 3120065116) 6 2-16 BUN (test code = 6680272056) 26 mg/dL 7-23 H GLUCOSE (test code = 1986081047) 260 mg/dL 70-110 H CREATININE (test code = 9405413893) 1.24 mg/dL 0.50-1.04 H CALCIUM (test code = 2130634099) 7.5 mg/dL 8.6-10.6 L eGFR (test code = 1080083185) 45.2 mL/min/1.73m2 GALLITO (test code = GALLITO) Association of [...] or abnormalities in imaging tests). Lab Interpretation (test code = 33288-6) Abnormal [facility] METABOLIC PANEL (NA, K, CL, CO2, GLUCOSE, BUN, CREATININE, CA)2022-12-03 10:31:33* Test Item Value Reference Range Interpretation Comme nts NA (test code = 4471967604) 130 mmol/L 135-145 L K (test code = 9726907815) 4.5 mmol/L 3.5-5.0 CL (test code = 6756270595) 99 mmol/L 98-108 CO2 TOTAL (test code = 5700684517) 25 mmol/L 23-31 AGAP (test code = 2010316918) 6 2-16 BUN (test code = 1854508175) 26 mg/dL 7-23 H GLUCOSE (test code = 4266909055) 260 mg/dL 70-110 H CREATININE (test code = 2140908171) 1.24 mg/dL 0.50-1.04 H CALCIUM (test code = 0684767870) 7.5 mg/dL 8.6-10.6 L eGFR (test code = 0317469364) 45.2 mL/min/1.73m2 GALLITO (test code = GALLITO) Association of [...] or abnormalities in imaging tests). Lab Interpretation (test code = 01299-4) [facility] 09:40:33* Test Item Value Reference Range Interpretation Comme nts PHOSPHORUS (test code = 1170135233) 4.9 mg/dL 2.5-5.0 Lab Interpretation (test cod e = 74616-3) [facility] 09:40:33* Test Item Value Reference Range Interpretation Comme nts PHOSPHORUS (test code = 2798161625) 4.9 mg/dL 2.5-5.0 Lab Interpretation (test cod e = 48750-8) [facility] Test Item Value Reference Range Interpretation Comme nts MAGNESIUM (test code = 0194538902) 2.1 mg/dL 1.7-2.4 Lab Interpretation (test cod e = 45893-3) [facility]* Test Item Value Reference Range Interpretation Comme nts MAGNESIUM (test code = 2418496575) 2.1 mg/dL 1.7-2.4 Lab Interpretation (test cod e = 87078-6) Normal [facility] GLUCOSE (AUTOMATED)2022-12-03 09:28:57* Test Item Value Reference Range Interpretation Comme nts POCT GLU (test code = 5189253188) 303 mg/dL 70-110 H Lab Interpretation (test cod e = 14280-0) Abnormal [facility] GLUCOSE (AUTOMATED)2022-12-03 09:28:57* Test Item Value Reference Range Interpretation Comme nts POCT GLU (test code = 6209667307) 303 mg/dL 70-110 H Lab Interpretation (test cod e = 68629-2) Abnormal [facility] WITH [id number] 09:27:11* Test Item Value Reference Range Interpretation Comme nts WBC (test code = 6690-2) 11.84 See_Comment H [Automated message] The system which generated this result transmitted reference range: 4.30 - 11.10 10*3/?L. The reference range was not used to interpret this result as normal/abnormal. RBC (test code = 789-8) 2.64 See_Comment L [Automated message] The system which generated this result transmitted reference range: 3.93 - 5.25 10*6/?L. The reference range was not used to interpret this result as normal/abnormal. HGB (test code = 718-7) 7.1 g/dL 11.6-15.0 L HCT (test code = 4544-3) 22.0 % 35.7-45.2 L MCV (test code = 787-2) 83.3 fL 80.6-95.5 MCH (test code = 785-6) 26.9 pg 25.9-32.8 MCHC (test code = 786-4) 32.3 g/dL 31.6-35.1 RDW-SD (test code = 09592-6) 49.3 fL 39.0-49.9 RDW-CV (test code = 788-0) 16.3 % 12.0-15.5 H PLT (test code = 777-3) 360 See_Comment H [Automated message] The system which generated this result transmitted reference range: 166 - 358 10*3/?L. The reference range was not used to interpret this result as normal/abnormal. MPV (test code = 43923-4) 9.4 fL 9.5-12.9 L NRBC/100 WBC (test code = 2675283437) 0.2 See_Comment [Automated message] The system which generated this result transmitted reference range: 0.0 - 10.0 /100 WBCs. The reference range was not used to interpret this result as normal/abnormal. NRBC x10^3 (test code = 8246282414) 0.02 See_Comment [Automated message] The system which generated this result transmitted reference range: 10*3/?L. The reference range was not used to interpret this result as normal/abnormal. GRAN MAT (NEUT) % (test code = 770-8) 89.5 % IMM GRAN % (test code = 9650525090) 1.90 % LYMPH % (test code = 736-9) 5.2 % MONO % (test code = 5905-5) 3.2 % EOS % (test code = 713-8) 0.0 % BASO % (test code = 706-2) 0.2 % GRAN MAT x10^3(ANC) (test code = 0128956203) 10.59 10*3/uL 1.88-7.09 H IMM GRAN x10^3 (test code = 4683839778) 0.23 10*3/uL 0.00-0.06 H LYMPH x10^3 (test code = 731-0) 0.62 10*3/uL 1.32-3.29 L MONO x10^3 (test code = 742-7) 0.38 10*3/uL 0.33-0.92 EOS x10^3 (test code = 711-2) 0.03-0.39 L BASO x10^3 (test code = 704-7) 0.01-0.07 Lab Interpretation (test code = 93160-8) Abnormal [facility] WITH [id number] 09:27:11* Test Item Value Reference Range Interpretation Comme nts WBC (test code = 6690-2) 11.84 See_Comment H [Automated message] The system which generated this result transmitted reference range: 4.30 - 11.10 10*3/?L. The reference range was not used to interpret this result as normal/abnormal. RBC (test code = 789-8) 2.64 See_Comment L [Automated message] The system which generated this result transmitted reference range: 3.93 - 5.25 10*6/?L. The reference range was not used to interpret this result as normal/abnormal. HGB (test code = 718-7) 7.1 g/dL 11.6-15.0 L HCT (test code = 4544-3) 22.0 % 35.7-45.2 L MCV (test code = 787-2) 83.3 fL 80.6-95.5 MCH (test code = 785-6) 26.9 pg 25.9-32.8 MCHC (test code = 786-4) 32.3 g/dL 31.6-35.1 RDW-SD (test code = 26104-9) 49.3 fL 39.0-49.9 RDW-CV (test code = 788-0) 16.3 % 12.0-15.5 H PLT (test code = 777-3) 360 See_Comment H [Automated message] The system which generated this result transmitted reference range: 166 - 358 10*3/?L. The reference range was not used to interpret this result as normal/abnormal. MPV (test code = 13532-7) 9.4 fL 9.5-12.9 L NRBC/100 WBC (test code = 2677372053) 0.2 See_Comment [Automated message] The system which generated this result transmitted reference range: 0.0 - 10.0 /100 WBCs. The reference range was not used to interpret this result as normal/abnormal. NRBC x10^3 (test code = 7857889728) 0.02 See_Comment [Automated message] The system which generated this result transmitted reference range: 10*3/?L. The reference range was not used to interpret this result as normal/abnormal. GRAN MAT (NEUT) % (test code = 770-8) 89.5 % IMM GRAN % (test code = 0528263888) 1.90 % LYMPH % (test code = 736-9) 5.2 % MONO % (test code = 5905-5) 3.2 % EOS % (test code = 713-8) 0.0 % BASO % (test code = 706-2) 0.2 % GRAN MAT x10^3(ANC) (test code = 8342714350) 10.59 10*3/uL 1.88-7.09 H IMM GRAN x10^3 (test code = 6276100915) 0.23 10*3/uL 0.00-0.06 H LYMPH x10^3 (test code = 731-0) 0.62 10*3/uL 1.32-3.29 L MONO x10^3 (test code = 742-7) 0.38 10*3/uL 0.33-0.92 EOS x10^3 (test code = 711-2) 0.03-0.39 L BASO x10^3 (test code = 704-7) 0.01-0.07 Lab Interpretation (test code = 42877-1) Abnormal [facility] GLUCOSE (AUTOMATED)2022-12-03 05:27:02* Test Item Value Reference Range Interpretation Comme nts POCT GLU (test code = 2927846997) 348 mg/dL 70-110 H Lab Interpretation (test cod e = 17679-1) Abnormal [facility] GLUCOSE (AUTOMATED)2022-12-03 05:27:02* Test Item Value Reference Range Interpretation Comme nts POCT GLU (test code = 9221845981) 348 mg/dL 70-110 H Lab Interpretation (test cod e = 15637-8) Abnormal [facility] GLUCOSE (AUTOMATED)2022-12-03 04:10:24* Test Item Value Reference Range Interpretation Comme nts POCT GLU (test code = 4754826365) 365 mg/dL 70-110 H Lab Interpretation (test cod e = 02519-6) Abnormal [facility] GLUCOSE (AUTOMATED)2022-12-03 04:10:24* Test Item Value Reference Range Interpretation Comme nts POCT GLU (test code = 4849618074) 365 mg/dL 70-110 H Lab Interpretation (test cod e = 41935-2) Abnormal [facility] GLUCOSE (AUTOMATED)2022-12-03 02:32:18* Test Item Value Reference Range Interpretation Comme nts POCT GLU (test code = 5055887656) 429 mg/dL 70-110 H Lab Interpretation (test cod e = 48359-7) Abnormal [facility] GLUCOSE (AUTOMATED)2022-12-03 02:32:18* Test Item Value Reference Range Interpretation Comme nts POCT GLU (test code = [id number]) 429 mg/dL 70-110 H Lab Interpretation (test cod e = 37080-2) [facility] 01:52:17* Test Item Value Reference Range Interpretation Comme nts PH (test code = 2356920578) 7.30 7.32-7.42 L PCO2 ANNIE (test code = [id number]) 46 See_Comment [Automated messa ge] The system which generated this result transmitted reference range: 41 - 51 mmHg. The reference range was not used to interpret this result as normal/abnormal. PO2 ANNIE (test code = 9635554288) 97 See_Comment HH [Automated messa ge] The system which generated this result transmitted reference range: 25 - 40 mmHg. The reference range was not used to interpret this result as normal/abnormal. HCO3 ANNIE (test code = 2614123718) 22 See_Comment L [Automated messa ge] The system which generated this result transmitted reference range: 24 - 28 mEq/L. The reference range was not used to interpret this result as normal/abnormal. AC VBE(BEAKER) (test code = 4239905793) -3.9 mEq/L THB ANNIE (test code = 1898286658) 7.5 g/dL 12.0-16.0 LL %O2HB ANNIE (test code = 7159676763) 96.8 % 52.0-63.0 H %COHB ANNIE (test code = 3096929105) 0.3 % 0.0-1.5 %METHB ANNIE (test code = 7745859028) 0.4 % 0.4-1.5 VOL%O2 ANNIE (test code = 3741135843) 10.4 % 6.0-12.0 QUES NA (test code = 9791081859) 132 mmol/L 135-145 L K+ (test code = 5659221569) 3.5 mmol/L 3.5-5.0 AC CA IONZ (test code = 1099010611) 4.20 mg/dL 4.50-5.30 L GLUCOSE (test code = 4621788742) 124 mg/dL 70-110 H Lab Interpretation (test code = 51713-6) [facility] 01:52:17* Test Item Value Reference Range Interpretation Comme nts PH (test code = 7710259823) 7.30 7.32-7.42 L PCO2 ANNIE (test code = 0473702227) 46 See_Comment [Automated messa ge] The system which generated this result transmitted reference range: 41 - 51 mmHg. The reference range was not used to interpret this result as normal/abnormal. PO2 ANNIE (test code = 2634815360) 97 See_Comment HH [Automated messa ge] The system which generated this result transmitted reference range: 25 - 40 mmHg. The reference range was not used to interpret this result as normal/abnormal. HCO3 ANNIE (test code = 5532069243) 22 See_Comment L [Automated messa ge] The system which generated this result transmitted reference range: 24 - 28 mEq/L. The reference range was not used to interpret this result as normal/abnormal. AC VBE(BEAKER) (test code = 3354958637) -3.9 mEq/L THB ANNIE (test code = 2522767789) 7.5 g/dL 12.0-16.0 LL %O2HB ANNIE (test code = 4761848005) 96.8 % 52.0-63.0 H %COHB ANNIE (test code = 1912357149) 0.3 % 0.0-1.5 %METHB ANNIE (test code = 6790225102) 0.4 % 0.4-1.5 VOL%O2 ANNIE (test code = 4853548363) 10.4 % 6.0-12.0 QUES NA (test code = 7650508612) 132 mmol/L 135-145 L K+ (test code = 7980331903) 3.5 mmol/L 3.5-5.0 AC CA IONZ (test code = 8577219668) 4.20 mg/dL 4.50-5.30 L GLUCOSE (test code = 6387432895) 124 mg/dL 70-110 H Lab Interpretation (test code = 81666-1) Abnormal [facility] GLUCOSE (AUTOMATED)2022-12-03 00:34:27* Test Item Value Reference Range Interpretation Comme nts POCT GLU (test code = 3339287349) 326 mg/dL 70-110 H Notified Provide r Lab Interpretation (test code = 45488-8) Abnormal [facility] GLUCOSE (AUTOMATED)2022-12-03 00:34:27* Test Item Value Reference Range Interpretation Comme nts POCT GLU (test code = 9460936968) 326 mg/dL 70-110 H Notified Provide r Lab Interpretation (test code = 33738-2) Abnormal [facility] GLUCOSE (AUTOMATED)2022-12-03 00:34:27* Test Item Value Reference Range Interpretation Comme nts POCT GLU (test code = 0032301842) 326 mg/dL 70-110 H Notified Provide r Lab Interpretation (test code = 27405-1) Abnormal [facility] GLUCOSE (AUTOMATED)2022-12-02 20:44:29* Test Item Value Reference Range Interpretation Comme nts POCT GLU (test code = 7464305277) 128 mg/dL 70-110 H Lab Interpretation (test cod e = 41862-3) Abnormal [facility] GLUCOSE (AUTOMATED)2022-12-02 20:44:29* Test Item Value Reference Range Interpretation Comme nts POCT GLU (test code = 0606435347) 128 mg/dL 70-110 H Lab Interpretation (test cod e = 19443-4) Abnormal [facility] GLUCOSE (AUTOMATED)2022-12-02 20:44:29* Test Item Value Reference Range Interpretation Comme nts POCT GLU (test code = 5515161012) 128 mg/dL 70-110 H Lab Interpretation (test cod e = 68273-0) Abnormal [facility] GLUCOSE (AUTOMATED)2022-12-02 16:57:57* Test Item Value Reference Range Interpretation Comme nts POCT GLU (test code = 0437728416) 138 mg/dL 70-110 H Lab Interpretation (test cod e = 58378-1) Abnormal [facility] GLUCOSE (AUTOMATED)2022-12-02 16:57:57* Test Item Value Reference Range Interpretation Comme nts POCT GLU (test code = 1901637894) 138 mg/dL 70-110 H Lab Interpretation (test cod e = 49050-1) Abnormal [facility] GLUCOSE (AUTOMATED)2022-12-02 16:57:57* Test Item Value Reference Range Interpretation Comme nts POCT GLU (test code = 6123589344) 138 mg/dL 70-110 H Lab Interpretation (test cod e = 99412-9) Abnormal [facility] GLUCOSE (AUTOMATED)2022-12-02 15:51:14* Test Item Value Reference Range Interpretation Comme nts POCT GLU (test code = 9690546279) 125 mg/dL 70-110 H Lab Interpretation (test cod e = 82245-9) Abnormal [facility] GLUCOSE (AUTOMATED)2022-12-02 15:51:14* Test Item Value Reference Range Interpretation Comme nts POCT GLU (test code = 1898705835) 125 mg/dL 70-110 H Lab Interpretation (test cod e = 80252-3) Abnormal [facility] GLUCOSE (AUTOMATED)2022-12-02 15:51:14* Test Item Value Reference Range Interpretation Comme nts POCT GLU (test code = 6980132114) 125 mg/dL 70-110 H Lab Interpretation (test cod e = 48378-9) Abnormal [facility] GLUCOSE (AUTOMATED)2022-12-02 14:31:01* Test Item Value Reference Range Interpretation Comme nts POCT GLU (test code = 0017707240) 112 mg/dL 70-110 H Lab Interpretation (test cod e = 46734-0) Abnormal [facility] GLUCOSE (AUTOMATED)2022-12-02 14:31:01* Test Item Value Reference Range Interpretation Comme nts POCT GLU (test code = 6432262945) 112 mg/dL 70-110 H Lab Interpretation (test cod e = 34873-0) Abnormal [facility] GLUCOSE (AUTOMATED)2022-12-02 14:31:01* Test Item Value Reference Range Interpretation Comme nts POCT GLU (test code = 8506859705) 112 mg/dL 70-110 H Lab Interpretation (test cod e = 05783-1) Abnormal [facility] GLUCOSE (AUTOMATED)2022-12-02 12:48:23* Test Item Value Reference Range Interpretation Comme nts POCT GLU (test code = 7582873077) 119 mg/dL 70-110 H Lab Interpretation (test cod e = 86248-4) Abnormal [facility] GLUCOSE (AUTOMATED)2022-12-02 12:48:23* Test Item Value Reference Range Interpretation Comme nts POCT GLU (test code = 9566841913) 119 mg/dL 70-110 H Lab Interpretation (test cod e = 10887-6) Abnormal [facility] GLUCOSE (AUTOMATED)2022-12-02 12:48:23* Test Item Value Reference Range Interpretation Comme nts POCT GLU (test code = 3213441179) 119 mg/dL 70-110 H Lab Interpretation (test cod e = 23425-2) [facility]* Test Item Value Reference Range Interpretation Comme nts PHOSPHORUS (test code = 6703579874) 4.7 mg/dL 2.5-5.0 Lab Interpretation (test cod e = 98392-1) Normal [facility] METABOLIC PANEL (NA, K, CL, CO2, GLUCOSE, BUN, CREATININE, CA)2022-12-02 10:56:44* Test Item Value Reference Range Interpretation Comme nts NA (test code = 6760722633) 130 mmol/L 135-145 L K (test code = 9056126913) 3.4 mmol/L 3.5-5.0 L CL (test code = 6161659326) 99 mmol/L 98-108 CO2 TOTAL (test code = 5980699470) 24 mmol/L 23-31 AGAP (test code = 0915355402) 7 2-16 BUN (test code = 9293959378) 29 mg/dL 7-23 H GLUCOSE (test code = 6319303090) 79 mg/dL 70-110 CREATININE (test code = 9807280210) 1.83 mg/dL 0.50-1.04 H CALCIUM (test code = 2310364350) 7.1 mg/dL 8.6-10.6 L eGFR (test code = 4074801536) 28.9 mL/min/1.73m2 GALLITO (test code = GALLITO) Association of [...] or abnormalities in imaging tests). Lab Interpretation (test code = 00371-1) [facility]:56:44* Test Item Value Reference Range Interpretation Comme nts PHOSPHORUS (test code = 7526669942) 4.7 mg/dL 2.5-5.0 Lab Interpretation (test cod e = 65275-7) [facility] (NA, K, CL, CO2, GLUCOSE, BUN, CREATININE, CA)2022-12-02 10:56:44* Test Item Value Reference Range Interpretation Comme nts NA (test code = 3349511026) 130 mmol/L 135-145 L K (test code = 6142368754) 3.4 mmol/L 3.5-5.0 L CL (test code = 1742810716) 99 mmol/L 98-108 CO2 TOTAL (test code = 5724142344) 24 mmol/L 23-31 AGAP (test code = 1658449159) 7 2-16 BUN (test code = 9856177108) 29 mg/dL 7-23 H GLUCOSE (test code = 9012937883) 79 mg/dL 70-110 CREATININE (test code = 1699775968) 1.83 mg/dL 0.50-1.04 H CALCIUM (test code = 1616212628) 7.1 mg/dL 8.6-10.6 L eGFR (test code = 4719370550) 28.9 mL/min/1.73m2 GALLITO (test code = GALLITO) Association of [...] or abnormalities in imaging tests). Lab Interpretation (test code = 20637-4) [facility]:56:44* Test Item Value Reference Range Interpretation Comme nts PHOSPHORUS (test code = 1806447785) 4.7 mg/dL 2.5-5.0 Lab Interpretation (test cod e = 04401-7) [facility] (NA, K, CL, CO2, GLUCOSE, BUN, CREATININE, CA)2022-12-02 10:56:44* Test Item Value Reference Range Interpretation Comme nts NA (test code = 4460015661) 130 mmol/L 135-145 L K (test code = 3264291402) 3.4 mmol/L 3.5-5.0 L CL (test code = 6925811325) 99 mmol/L 98-108 CO2 TOTAL (test code = 8524285101) 24 mmol/L 23-31 AGAP (test code = 4536110581) 7 2-16 BUN (test code = 9191822113) 29 mg/dL 7-23 H GLUCOSE (test code = 2826059297) 79 mg/dL 70-110 CREATININE (test code = 6329794878) 1.83 mg/dL 0.50-1.04 H CALCIUM (test code = 7591692935) 7.1 mg/dL 8.6-10.6 L eGFR (test code = 8446077645) 28.9 mL/min/1.73m2 GALLITO (test code = GALLITO) Association of [...] or abnormalities in imaging tests). Lab Interpretation (test code = 38745-2) [facility] Test Item Value Reference Range Interpretation Comme nts MAGNESIUM (test code = 6112770096) 1.9 mg/dL 1.7-2.4 Lab Interpretation (test cod e = 63551-7) [facility]* Test Item Value Reference Range Interpretation Comme nts MAGNESIUM (test code = 7103737659) 1.9 mg/dL 1.7-2.4 Lab Interpretation (test cod e = 13111-4) Normal [facility]2023-04-06 10:56:03* Test Item Value Reference Range Interpretation Comme nts MAGNESIUM (test code = 3800548832) 1.9 mg/dL 1.7-2.4 Lab Interpretation (test cod e = 63575-9) [facility] [id number] 10:24:17* Test Item Value Reference Range Interpretation Comme nts WBC (test code = 6690-2) 12.60 See_Comment H [Automated message] The system which generated this result transmitted reference range: 4.30 - 11.10 10*3/?L. The reference range was not used to interpret this result as normal/abnormal. RBC (test code = 789-8) 2.65 See_Comment L [Automated message] The system which generated this result transmitted reference range: 3.93 - 5.25 10*6/?L. The reference range was not used to interpret this result as normal/abnormal. HGB (test code = 718-7) 7.1 g/dL 11.6-15.0 L HCT (test code = 4544-3) 21.6 % 35.7-45.2 L MCV (test code = 787-2) 81.5 fL 80.6-95.5 MCH (test code = 785-6) 26.8 pg 25.9-32.8 MCHC (test code = 786-4) 32.9 g/dL 31.6-35.1 RDW-SD (test code = 14654-1) 47.8 fL 39.0-49.9 RDW-CV (test code = 788-0) 16.1 % 12.0-15.5 H PLT (test code = 777-3) 329 See_Comment [Automated message] The system which generated this result transmitted reference range: 166 - 358 10*3/?L. The reference range was not used to interpret this result as normal/abnormal. MPV (test code = 59637-2) 9.5 fL 9.5-12.9 NRBC/100 WBC (test code = 5402132267) 0.0 See_Comment [Automated message] The system which generated this result transmitted reference range: 0.0 - 10.0 /100 WBCs. The reference range was not used to interpret this result as normal/abnormal. NRBC x10^3 (test code = 6128671977) See_Comment [Automated message] The system which generated this result transmitted reference range: 10*3/?L. The reference range was not used to interpret this result as normal/abnormal. GRAN MAT (NEUT) % (test code = 770-8) 83.8 % IMM GRAN % (test code = 1900568759) 1.70 % LYMPH % (test code = 736-9) 7.4 % MONO % (test code = 5905-5) 5.5 % EOS % (test code = 713-8) 1.3 % BASO % (test code = 706-2) 0.3 % GRAN MAT x10^3(ANC) (test code = 8839306171) 10.56 10*3/uL 1.88-7.09 H IMM GRAN x10^3 (test code = 1691220211) 0.21 10*3/uL 0.00-0.06 H LYMPH x10^3 (test code = 731-0) 0.93 10*3/uL 1.32-3.29 L MONO x10^3 (test code = 742-7) 0.69 10*3/uL 0.33-0.92 EOS x10^3 (test code = 711-2) 0.17 10*3/uL 0.03-0.39 BASO x10^3 (test code = 704-7) 0.04 10*3/uL 0.01-0.07 Lab Interpretation (test code = 35335-0) Abnormal [facility] WITH [id number] 10:24:17* Test Item Value Reference Range Interpretation Comme nts WBC (test code = 6690-2) 12.60 See_Comment H [Automated message] The system which generated this result transmitted reference range: 4.30 - 11.10 10*3/?L. The reference range was not used to interpret this result as normal/abnormal. RBC (test code = 789-8) 2.65 See_Comment L [Automated message] The system which generated this result transmitted reference range: 3.93 - 5.25 10*6/?L. The reference range was not used to interpret this result as normal/abnormal. HGB (test code = 718-7) 7.1 g/dL 11.6-15.0 L HCT (test code = 4544-3) 21.6 % 35.7-45.2 L MCV (test code = 787-2) 81.5 fL 80.6-95.5 MCH (test code = 785-6) 26.8 pg 25.9-32.8 MCHC (test code = 786-4) 32.9 g/dL 31.6-35.1 RDW-SD (test code = 41855-6) 47.8 fL 39.0-49.9 RDW-CV (test code = 788-0) 16.1 % 12.0-15.5 H PLT (test code = 777-3) 329 See_Comment [Automated message] The system which generated this result transmitted reference range: 166 - 358 10*3/?L. The reference range was not used to interpret this result as normal/abnormal. MPV (test code = 53033-1) 9.5 fL 9.5-12.9 NRBC/100 WBC (test code = 7771289138) 0.0 See_Comment [Automated message] The system which generated this result transmitted reference range: 0.0 - 10.0 /100 WBCs. The reference range was not used to interpret this result as normal/abnormal. NRBC x10^3 (test code = 6198392668) See_Comment [Automated message] The system which generated this result transmitted reference range: 10*3/?L. The reference range was not used to interpret this result as normal/abnormal. GRAN MAT (NEUT) % (test code = 770-8) 83.8 % IMM GRAN % (test code = 8054194330) 1.70 % LYMPH % (test code = 736-9) 7.4 % MONO % (test code = 5905-5) 5.5 % EOS % (test code = 713-8) 1.3 % BASO % (test code = 706-2) 0.3 % GRAN MAT x10^3(ANC) (test code = 0457111620) 10.56 10*3/uL 1.88-7.09 H IMM GRAN x10^3 (test code = 5025637668) 0.21 10*3/uL 0.00-0.06 H LYMPH x10^3 (test code = 731-0) 0.93 10*3/uL 1.32-3.29 L MONO x10^3 (test code = 742-7) 0.69 10*3/uL 0.33-0.92 EOS x10^3 (test code = 711-2) 0.17 10*3/uL 0.03-0.39 BASO x10^3 (test code = 704-7) 0.04 10*3/uL 0.01-0.07 Lab Interpretation (test code = 17070-0) Abnormal [facility] WITH [id number] 10:24:17* Test Item Value Reference Range Interpretation Comme nts WBC (test code = 6690-2) 12.60 See_Comment H [Automated message] The system which generated this result transmitted reference range: 4.30 - 11.10 10*3/?L. The reference range was not used to interpret this result as normal/abnormal. RBC (test code = 789-8) 2.65 See_Comment L [Automated message] The system which generated this result transmitted reference range: 3.93 - 5.25 10*6/?L. The reference range was not used to interpret this result as normal/abnormal. HGB (test code = 718-7) 7.1 g/dL 11.6-15.0 L HCT (test code = 4544-3) 21.6 % 35.7-45.2 L MCV (test code = 787-2) 81.5 fL 80.6-95.5 MCH (test code = 785-6) 26.8 pg 25.9-32.8 MCHC (test code = 786-4) 32.9 g/dL 31.6-35.1 RDW-SD (test code = 68268-0) 47.8 fL 39.0-49.9 RDW-CV (test code = 788-0) 16.1 % 12.0-15.5 H PLT (test code = 777-3) 329 See_Comment [Automated message] The system which generated this result transmitted reference range: 166 - 358 10*3/?L. The reference range was not used to interpret this result as normal/abnormal. MPV (test code = 23905-8) 9.5 fL 9.5-12.9 NRBC/100 WBC (test code = 5387968158) 0.0 See_Comment [Automated message] The system which generated this result transmitted reference range: 0.0 - 10.0 /100 WBCs. The reference range was not used to interpret this result as normal/abnormal. NRBC x10^3 (test code = 1432118314) See_Comment [Automated message] The system which generated this result transmitted reference range: 10*3/?L. The reference range was not used to interpret this result as normal/abnormal. GRAN MAT (NEUT) % (test code = 770-8) 83.8 % IMM GRAN % (test code = 7376672964) 1.70 % LYMPH % (test code = 736-9) 7.4 % MONO % (test code = 5905-5) 5.5 % EOS % (test code = 713-8) 1.3 % BASO % (test code = 706-2) 0.3 % GRAN MAT x10^3(ANC) (test code = 5596303112) 10.56 10*3/uL 1.88-7.09 H IMM GRAN x10^3 (test code = 0414373278) 0.21 10*3/uL 0.00-0.06 H LYMPH x10^3 (test code = 731-0) 0.93 10*3/uL 1.32-3.29 L MONO x10^3 (test code = 742-7) 0.69 10*3/uL 0.33-0.92 EOS x10^3 (test code = 711-2) 0.17 10*3/uL 0.03-0.39 BASO x10^3 (test code = 704-7) 0.04 10*3/uL 0.01-0.07 Lab Interpretation (test code = 53887-5) Abnormal [facility] GLUCOSE (AUTOMATED)2022-12-02 09:37:29* Test Item Value Reference Range Interpretation Comme nts POCT GLU (test code = 9293132467) 139 mg/dL 70-110 H Lab Interpretation (test cod e = 72814-2) Abnormal [facility] GLUCOSE (AUTOMATED)2022-12-02 09:37:29* Test Item Value Reference Range Interpretation Comme nts POCT GLU (test code = 3467309287) 139 mg/dL 70-110 H Lab Interpretation (test cod e = 47949-4) Abnormal [facility] GLUCOSE (AUTOMATED)2022-12-02 09:37:29* Test Item Value Reference Range Interpretation Comme nts POCT GLU (test code = 7829439340) 139 mg/dL 70-110 H Lab Interpretation (test cod e = 64683-4) Abnormal [facility] GLUCOSE (AUTOMATED)2022-12-02 08:27:40* Test Item Value Reference Range Interpretation Comme nts POCT GLU (test code = 8635732832) 141 mg/dL 70-110 H Lab Interpretation (test cod e = 32041-1) Abnormal [facility] GLUCOSE (AUTOMATED)2022-12-02 08:27:40* Test Item Value Reference Range Interpretation Comme nts POCT GLU (test code = 2162830112) 141 mg/dL 70-110 H Lab Interpretation (test cod e = 20424-0) Abnormal [facility] GLUCOSE (AUTOMATED)2022-12-02 08:27:40* Test Item Value Reference Range Interpretation Comme nts POCT GLU (test code = 1745177017) 141 mg/dL 70-110 H Lab Interpretation (test cod e = 85392-2) Abnormal [facility] GLUCOSE (AUTOMATED)2022-12-02 07:13:18* Test Item Value Reference Range Interpretation Comme nts POCT GLU (test code = 2475446006) 70 mg/dL 70-110 Lab Interpretation (test cod e = 40667-1) Normal [facility] GLUCOSE (AUTOMATED)2022-12-02 07:13:18* Test Item Value Reference Range Interpretation Comme nts POCT GLU (test code = 3588691206) 70 mg/dL 70-110 Lab Interpretation (test cod e = 11397-5) Normal [facility] GLUCOSE (AUTOMATED)2022-12-02 07:13:18* Test Item Value Reference Range Interpretation Comme nts POCT GLU (test code = 0987029161) 70 mg/dL 70-110 Lab Interpretation (test cod e = 73711-2) Normal [facility] GLUCOSE (AUTOMATED)2022-12-02 06:21:24* Test Item Value Reference Range Interpretation Comme nts POCT GLU (test code = 2307746875) 90 mg/dL 70-110 Lab Interpretation (test cod e = 85267-6) Normal [facility] GLUCOSE (AUTOMATED)2022-12-02 06:21:24* Test Item Value Reference Range Interpretation Comme nts POCT GLU (test code = 8368166324) 90 mg/dL 70-110 Lab Interpretation (test cod e = 90486-8) Normal [facility] GLUCOSE (AUTOMATED)2022-12-02 06:21:24* Test Item Value Reference Range Interpretation Comme nts POCT GLU (test code = 3215427784) 90 mg/dL 70-110 Lab Interpretation (test cod e = 42916-9) Normal [facility] GLUCOSE (AUTOMATED)2022-12-02 05:34:41* Test Item Value Reference Range Interpretation Comme nts POCT GLU (test code = 8693953492) 76 mg/dL 70-110 Lab Interpretation (test cod e = 03687-2) Normal [facility] GLUCOSE (AUTOMATED)2022-12-02 05:34:41* Test Item Value Reference Range Interpretation Comme nts POCT GLU (test code = 3628744853) 76 mg/dL 70-110 Lab Interpretation (test cod e = 67686-0) Normal [facility] GLUCOSE (AUTOMATED)2022-12-02 05:34:41* Test Item Value Reference Range Interpretation Comme nts POCT GLU (test code = 9095523385) 76 mg/dL 70-110 Lab Interpretation (test cod e = 39470-5) Normal [facility] GLUCOSE (AUTOMATED)2022-12-02 04:53:29* Test Item Value Reference Range Interpretation Comme nts POCT GLU (test code = 8863849932) 62 mg/dL 70-110 L Lab Interpretation (test cod e = 57363-0) Abnormal [facility] GLUCOSE (AUTOMATED)2022-12-02 04:53:29* Test Item Value Reference Range Interpretation Comme nts POCT GLU (test code = 8557061615) 62 mg/dL 70-110 L Lab Interpretation (test cod e = 08582-1) Abnormal [facility] GLUCOSE (AUTOMATED)2022-12-02 04:53:29* Test Item Value Reference Range Interpretation Comme nts POCT GLU (test code = 8323050437) 62 mg/dL 70-110 L Lab Interpretation (test cod e = 45264-0) Abnormal [facility] GLUCOSE (AUTOMATED)2022-12-02 01:26:32* Test Item Value Reference Range Interpretation Comme nts POCT GLU (test code = 1999008160) 92 mg/dL 70-110 Lab Interpretation (test cod e = 27825-5) Normal [facility] GLUCOSE (AUTOMATED)2022-12-02 01:26:32* Test Item Value Reference Range Interpretation Comme nts POCT GLU (test code = 3934193285) 92 mg/dL 70-110 Lab Interpretation (test cod e = 23430-8) Normal [facility] GLUCOSE (AUTOMATED)2022-12-02 01:26:32* Test Item Value Reference Range Interpretation Comme nts POCT GLU (test code = 4231594743) 92 mg/dL 70-110 Lab Interpretation (test cod e = 52390-8) Normal [facility] GLUCOSE (AUTOMATED)2022-12-01 22:22:43* Test Item Value Reference Range Interpretation Comme nts POCT GLU (test code = 5161083887) 137 mg/dL 70-110 H Lab Interpretation (test cod e = 94983-3) Abnormal [facility] GLUCOSE (AUTOMATED)2022-12-01 22:22:43* Test Item Value Reference Range Interpretation Comme nts POCT GLU (test code = 4936248109) 137 mg/dL 70-110 H Lab Interpretation (test cod e = 30654-6) Abnormal [facility] GLUCOSE (AUTOMATED)2022-12-01 22:22:43* Test Item Value Reference Range Interpretation Comme nts POCT GLU (test code = 5652236846) 137 mg/dL 70-110 H Lab Interpretation (test cod e = 36358-8) Abnormal [facility] GLUCOSE (AUTOMATED)2022-12-01 21:52:06* Test Item Value Reference Range Interpretation Comme nts POCT GLU (test code = 9548306562) 68 mg/dL 70-110 L Lab Interpretation (test cod e = 11044-4) Abnormal [facility] GLUCOSE (AUTOMATED)2022-12-01 21:52:06* Test Item Value Reference Range Interpretation Comme nts POCT GLU (test code = 3799403779) 68 mg/dL 70-110 L Lab Interpretation (test cod e = 90166-5) Abnormal [facility] GLUCOSE (AUTOMATED)2022-12-01 21:52:06* Test Item Value Reference Range Interpretation Comme nts POCT GLU (test code = 8675655307) 68 mg/dL 70-110 L Lab Interpretation (test cod e = 50700-7) Abnormal [facility] GLUCOSE (AUTOMATED)2022-12-01 21:39:52* Test Item Value Reference Range Interpretation Comme nts POCT GLU (test code = 7213892274) 56 mg/dL 70-110 L Lab Interpretation (test cod e = 31572-5) Abnormal [facility] GLUCOSE (AUTOMATED)2022-12-01 21:39:52* Test Item Value Reference Range Interpretation Comme nts POCT GLU (test code = 5352187545) 56 mg/dL 70-110 L Lab Interpretation (test cod e = 03209-9) Abnormal [facility] GLUCOSE (AUTOMATED)2022-12-01 21:39:52* Test Item Value Reference Range Interpretation Comme nts POCT GLU (test code = 3536082477) 56 mg/dL 70-110 L Lab Interpretation (test cod e = 10583-1) Abnormal [facility] GLUCOSE (AUTOMATED)2022-12-01 13:01:44* Test Item Value Reference Range Interpretation Comme nts POCT GLU (test code = 5571654964) 99 mg/dL 70-110 Lab Interpretation (test cod e = 95150-8) Normal [facility] GLUCOSE (AUTOMATED)2022-12-01 13:01:44* Test Item Value Reference Range Interpretation Comme nts POCT GLU (test code = 4093359326) 99 mg/dL 70-110 Lab Interpretation (test cod e = 01421-9) Normal [facility] GLUCOSE (AUTOMATED)2022-12-01 13:01:44* Test Item Value Reference Range Interpretation Comme nts POCT GLU (test code = 3789164505) 99 mg/dL 70-110 Lab Interpretation (test cod e = 95972-2) Normal [facility] GLUCOSE (AUTOMATED)2022-12-01 11:24:17* Test Item Value Reference Range Interpretation Comme nts POCT GLU (test code = 6815179475) 70 mg/dL 70-110 Lab Interpretation (test cod e = 82100-7) Normal [facility] GLUCOSE (AUTOMATED)2022-12-01 11:24:17* Test Item Value Reference Range Interpretation Comme nts POCT GLU (test code = 7893902812) 70 mg/dL 70-110 Lab Interpretation (test cod e = 62883-4) Normal [facility] GLUCOSE (AUTOMATED)2022-12-01 11:24:17* Test Item Value Reference Range Interpretation Comme nts POCT GLU (test code = 5742778615) 70 mg/dL 70-110 Lab Interpretation (test cod e = 34260-5) Normal [facility] GLUCOSE (AUTOMATED)2022-12-01 10:55:02* Test Item Value Reference Range Interpretation Comme nts POCT GLU (test code = 2644056865) 82 mg/dL 70-110 Lab Interpretation (test cod e = 88743-8) Normal [facility] GLUCOSE (AUTOMATED)2022-12-01 10:55:02* Test Item Value Reference Range Interpretation Comme nts POCT GLU (test code = 3453380325) 82 mg/dL 70-110 Lab Interpretation (test cod e = 09602-7) Normal [facility] GLUCOSE (AUTOMATED)2022-12-01 10:55:02* Test Item Value Reference Range Interpretation Comme nts POCT GLU (test code = 8381101616) 82 mg/dL 70-110 Lab Interpretation (test cod e = 40939-7) Normal [facility] GLUCOSE (AUTOMATED)2022-12-01 09:53:22* Test Item Value Reference Range Interpretation Comme nts POCT GLU (test code = 5610199595) 55 mg/dL 70-110 L Lab Interpretation (test cod e = 58098-7) Abnormal [facility] GLUCOSE (AUTOMATED)2022-12-01 09:53:22* Test Item Value Reference Range Interpretation Comme nts POCT GLU (test code = 3361645035) 55 mg/dL 70-110 L Lab Interpretation (test cod e = 88619-1) Abnormal [facility] GLUCOSE (AUTOMATED)2022-12-01 09:53:22* Test Item Value Reference Range Interpretation Comme nts POCT GLU (test code = 7288592144) 55 mg/dL 70-110 L Lab Interpretation (test cod e = 11285-7) Abnormal [facility] GLUCOSE (AUTOMATED)2022-12-01 04:13:44* Test Item Value Reference Range Interpretation Comme nts POCT GLU (test code = 6931752599) 75 mg/dL 70-110 Lab Interpretation (test cod e = 69773-1) Normal [facility] GLUCOSE (AUTOMATED)2022-12-01 04:13:44* Test Item Value Reference Range Interpretation Comme nts POCT GLU (test code = 7995614027) 75 mg/dL 70-110 Lab Interpretation (test cod e = 17374-1) Normal [facility] GLUCOSE (AUTOMATED)2022-12-01 04:13:44* Test Item Value Reference Range Interpretation Comme nts POCT GLU (test code = 2480786038) 75 mg/dL 70-110 Lab Interpretation (test cod e = 11446-3) [facility] GLUCOSE (AUTOMATED)2022-12-01 01:05:36* Test Item Value Reference Range Interpretation Comme nts POCT GLU (test code = 5830656975) 98 mg/dL 70-110 Lab Interpretation (test cod e = 64221-8) [facility] GLUCOSE (AUTOMATED)2022-12-01 01:05:36* Test Item Value Reference Range Interpretation Comme nts POCT GLU (test code = 3971750800) 98 mg/dL 70-110 Lab Interpretation (test cod e = 95535-9) [facility] GLUCOSE (AUTOMATED)2022-12-01 01:05:36* Test Item Value Reference Range Interpretation Comme nts POCT GLU (test code = 6787541865) 98 mg/dL 70-110 Lab Interpretation (test cod e = 19038-1) [facility]:00:06* Test Item Value Reference Range Interpretation Comme nts PH (test code = 2) 7.34 7.35-7.45 L PCO2 (test code = 8879416318) 42 See_Comment [Automated messa ge] The system which generated this result transmitted reference range: 35 - 45 mmHg. The reference range was not used to interpret this result as normal/abnormal. PO2 (test code = 7987964666) 203 See_Comment H [Automated messa ge] The system which generated this result transmitted reference range: 80 - 100 mmHg. The reference range was not used to interpret this result as normal/abnormal. HCO3 (test code = 9817173666) 22 See_Comment [Automated messa ge] The system which generated this result transmitted reference range: 22 - 26 mEq/L. The reference range was not used to interpret this result as normal/abnormal. BE (test code = 0611304428) -3.9 See_Comment L [Automated messa ge] The system which generated this result transmitted reference range: -3.0 - 3.0 mEq/L. The reference range was not used to interpret this result as normal/abnormal. THB (test code = 5189736583) 10.4 g/dL 12.0-16.0 L %O2HB (test code = 3520533872) 98.9 % 94.0-99.0 %COHB ART (test code = 3914439069) 0.3 % 0.0-1.5 %METHB ART (test code = 1858158074) 0.3 % 0.4-1.5 L VOL%O2 ART (test code = 0610572786) 14.9 % 15.0-23.0 L QUES NA (test code = 0857066231) 134 mmol/L 135-145 L K+ (test code = 8662254654) 3.7 mmol/L 3.5-5.0 AC CA IONZ (test code = 0983740224) 4.50 mg/dL 4.50-5.30 GLUCOSE (test code = 8088059780) 243 mg/dL 70-110 H Lab Interpretation (test code = 04746-8) [facility] 01:00:06* Test Item Value Reference Range Interpretation Comme nts PH (test code = 2) 7.34 7.35-7.45 L PCO2 (test code = 8937551378) 42 See_Comment [Automated messa ge] The system which generated this result transmitted reference range: 35 - 45 mmHg. The reference range was not used to interpret this result as normal/abnormal. PO2 (test code = 6731742093) 203 See_Comment H [Automated messa ge] The system which generated this result transmitted reference range: 80 - 100 mmHg. The reference range was not used to interpret this result as normal/abnormal. HCO3 (test code = 1768019963) 22 See_Comment [Automated messa ge] The system which generated this result transmitted reference range: 22 - 26 mEq/L. The reference range was not used to interpret this result as normal/abnormal. BE (test code = 7613295595) -3.9 See_Comment L [Automated messa ge] The system which generated this result transmitted reference range: -3.0 - 3.0 mEq/L. The reference range was not used to interpret this result as normal/abnormal. THB (test code = 0028623484) 10.4 g/dL 12.0-16.0 L %O2HB (test code = 3394393019) 98.9 % 94.0-99.0 %COHB ART (test code = 1889811800) 0.3 % 0.0-1.5 %METHB ART (test code = 7978735505) 0.3 % 0.4-1.5 L VOL%O2 ART (test code = 2458605393) 14.9 % 15.0-23.0 L QUES NA (test code = 4448606271) 134 mmol/L 135-145 L K+ (test code = 0959450515) 3.7 mmol/L 3.5-5.0 AC CA IONZ (test code = 7805533733) 4.50 mg/dL 4.50-5.30 GLUCOSE (test code = 0792995849) 243 mg/dL 70-110 H Lab Interpretation (test code = 44308-7) [facility] 01:00:06* Test Item Value Reference Range Interpretation Comme nts PH (test code = 2) 7.34 7.35-7.45 L PCO2 (test code = 6650196696) 42 See_Comment [Automated messa ge] The system which generated this result transmitted reference range: 35 - 45 mmHg. The reference range was not used to interpret this result as normal/abnormal. PO2 (test code = 9247621291) 203 See_Comment H [Automated messa ge] The system which generated this result transmitted reference range: 80 - 100 mmHg. The reference range was not used to interpret this result as normal/abnormal. HCO3 (test code = 6483561288) 22 See_Comment [Automated messa ge] The system which generated this result transmitted reference range: 22 - 26 mEq/L. The reference range was not used to interpret this result as normal/abnormal. BE (test code = 3385190407) -3.9 See_Comment L [Automated messa ge] The system which generated this result transmitted reference range: -3.0 - 3.0 mEq/L. The reference range was not used to interpret this result as normal/abnormal. THB (test code = 4324601278) 10.4 g/dL 12.0-16.0 L %O2HB (test code = 7895754193) 98.9 % 94.0-99.0 %COHB ART (test code = 5014935888) 0.3 % 0.0-1.5 %METHB ART (test code = 1397739770) 0.3 % 0.4-1.5 L VOL%O2 ART (test code = 1824243299) 14.9 % 15.0-23.0 L QUES NA (test code = 0603040062) 134 mmol/L 135-145 L K+ (test code = 4804900729) 3.7 mmol/L 3.5-5.0 AC CA IONZ (test code = 6711767181) 4.50 mg/dL 4.50-5.30 GLUCOSE (test code = 4054322445) 243 mg/dL 70-110 H Lab Interpretation (test code = 68611-2) Abnormal [facility] GLUCOSE (AUTOMATED)2022-11-30 21:20:26* Test Item Value Reference Range Interpretation Comme nts POCT GLU (test code = 5147841775) 145 mg/dL 70-110 H Lab Interpretation (test cod e = 95192-4) Abnormal [facility] GLUCOSE (AUTOMATED)2022-11-30 21:20:26* Test Item Value Reference Range Interpretation Comme nts POCT GLU (test code = 6387018949) 145 mg/dL 70-110 H Lab Interpretation (test cod e = 98716-7) Abnormal [facility] GLUCOSE (AUTOMATED)2022-11-30 21:20:26* Test Item Value Reference Range Interpretation Comme nts POCT GLU (test code = 1797770233) 145 mg/dL 70-110 H Lab Interpretation (test cod e = 22225-9) Abnormal [facility] GLUCOSE (AUTOMATED)2022-11-30 21:20:26* Test Item Value Reference Range Interpretation Comme nts POCT GLU (test code = 1114871990) 145 mg/dL 70-110 H Lab Interpretation (test cod e = 38541-7) [facility]33-[facility]:12:03* Test Item Value Reference Range Interpretation Comme nts VIT D 25OH (test code = 74161-3) 21 ng/mL 25-80 L GALLITO (test code = GALLITO) Deficiency: <20 ng/mLInsufficiency: 20-24 ng/mLOptimal: 25-80 ng/mL Lab Interpretation (test code = 52636-1) [facility]-[id number] 19:12:03* Test Item Value Reference Range Interpretation Comme nts VIT D 25OH (test code = 37333-2) 21 ng/mL 25-80 L GALLITO (test code = GALLITO) Deficiency: <20 ng/mLInsufficiency: 20-24 ng/mLOptimal: 25-80 ng/mL Lab Interpretation (test code = 40940-6) [facility] 96-[id number] 19:12:03* Test Item Value Reference Range Interpretation Comme nts VIT D 25OH (test code = 20928-3) 21 ng/mL 25-80 L GALLITO (test code = GALLITO) Deficiency: <20 ng/mLInsufficiency: 20-24 ng/mLOptimal: 25-80 ng/mL Lab Interpretation (test code = 85479-8) [facility] 80-[id number] 19:12:03* Test Item Value Reference Range Interpretation Comme nts VIT D 25OH (test code = 73910-0) 21 ng/mL 25-80 L GALLITO (test code = GALLITO) Deficiency: <20 ng/mLInsufficiency: 20-24 ng/mLOptimal: 25-80 ng/mL Lab Interpretation (test code = 41992-9) Abnormal [facility] GLUCOSE (AUTOMATED)2022-11-30 17:24:10* Test Item Value Reference Range Interpretation Comme nts POCT GLU (test code = 1100029370) 199 mg/dL 70-110 H Lab Interpretation (test cod e = 27600-7) Abnormal [facility] GLUCOSE (AUTOMATED)2022-11-30 17:24:10* Test Item Value Reference Range Interpretation Comme nts POCT GLU (test code = 7059510182) 199 mg/dL 70-110 H Lab Interpretation (test cod e = 19186-4) Abnormal [facility] GLUCOSE (AUTOMATED)2022-11-30 17:24:10* Test Item Value Reference Range Interpretation Comme nts POCT GLU (test code = 7468077208) 199 mg/dL 70-110 H Lab Interpretation (test cod e = 40567-7) Abnormal [facility] GLUCOSE (AUTOMATED)2022-11-30 17:24:10* Test Item Value Reference Range Interpretation Comme nts POCT GLU (test code = 2945841926) 199 mg/dL 70-110 H Lab Interpretation (test cod e = 60985-9) Abnormal [facility] GLUCOSE (AUTOMATED)2022-11-30 15:53:51* Test Item Value Reference Range Interpretation Comme nts POCT GLU (test code = 7405647429) 220 mg/dL 70-110 H Lab Interpretation (test cod e = 99287-1) Abnormal [facility] GLUCOSE (AUTOMATED)2022-11-30 15:53:51* Test Item Value Reference Range Interpretation Comme nts POCT GLU (test code = 3198973227) 220 mg/dL 70-110 H Lab Interpretation (test cod e = 44309-9) Abnormal [facility] GLUCOSE (AUTOMATED)2022-11-30 15:53:51* Test Item Value Reference Range Interpretation Comme nts POCT GLU (test code = 9194560114) 220 mg/dL 70-110 H Lab Interpretation (test cod e = 50921-5) Abnormal [facility] GLUCOSE (AUTOMATED)2022-11-30 15:53:51* Test Item Value Reference Range Interpretation Comme nts POCT GLU (test code = 2469418772) 220 mg/dL 70-110 H Lab Interpretation (test cod e = 22919-3) Abnormal [facility] GLUCOSE (AUTOMATED)2022-11-30 13:29:18* Test Item Value Reference Range Interpretation Comme nts POCT GLU (test code = 1338868181) 257 mg/dL 70-110 H Lab Interpretation (test cod e = 83417-0) Abnormal [facility] GLUCOSE (AUTOMATED)2022-11-30 13:29:18* Test Item Value Reference Range Interpretation Comme nts POCT GLU (test code = 5831816574) 257 mg/dL 70-110 H Lab Interpretation (test cod e = 08017-4) Abnormal [facility] GLUCOSE (AUTOMATED)2022-11-30 13:29:18* Test Item Value Reference Range Interpretation Comme nts POCT GLU (test code = 1043753619) 257 mg/dL 70-110 H Lab Interpretation (test cod e = 20486-1) Abnormal [facility] GLUCOSE (AUTOMATED)2022-11-30 13:29:18* Test Item Value Reference Range Interpretation Comme nts POCT GLU (test code = 3272561957) 257 mg/dL 70-110 H Lab Interpretation (test cod e = 53611-0) [facility] Lactic Wzol1440-56-11 08:38:53* Test Item Value Reference Range Interpretation Comme nts PH (test code = 2) 7.38 7.35-7.45 PCO2 (test code = 2687088482) 37 See_Comment [Automated messa ge] The system which generated this result transmitted reference range: 35 - 45 mmHg. The reference range was not used to interpret this result as normal/abnormal. PO2 (test code = 9746070447) 82 See_Comment [Automated messa ge] The system which generated this result transmitted reference range: 80 - 100 mmHg. The reference range was not used to interpret this result as normal/abnormal. HCO3 (test code = 9793457902) 22 See_Comment [Automated messa ge] The system which generated this result transmitted reference range: 22 - 26 mEq/L. The reference range was not used to interpret this result as normal/abnormal. BE (test code = 4899822281) -3.0 See_Comment [Automated messa ge] The system which generated this result transmitted reference range: -3.0 - 3.0 mEq/L. The reference range was not used to interpret this result as normal/abnormal. THB (test code = 4600933998) 9.7 g/dL 12.0-16.0 L %O2HB (test code = 8955476102) 96.1 % 94.0-99.0 %COHB ART (test code = 1106448772) 0.4 % 0.0-1.5 %METHB ART (test code = 8312594570) 0.0 % 0.4-1.5 L VOL%O2 ART (test code = 7639708101) 13.2 % 15.0-23.0 L NA (test code = 0336789108) 128 mmol/L 135-145 L K+ (test code = 5565905644) 3.6 mmol/L 3.5-5.0 AC CA IONZ (test code = 3907222670) 4.10 mg/dL 4.50-5.30 L GLUCOSE (test code = 5616195322) 215 mg/dL 70-110 H LACTIC ACID (test code = 5465761356) 1.75 mmol/L 0.50-2.20 Lab Interpretation (test code = 18148-5) [facility] Lactic Ymgp5196-82-87 08:38:53* Test Item Value Reference Range Interpretation Comme nts PH (test code = 2) 7.38 7.35-7.45 PCO2 (test code = 3458229593) 37 See_Comment [Automated messa ge] The system which generated this result transmitted reference range: 35 - 45 mmHg. The reference range was not used to interpret this result as normal/abnormal. PO2 (test code = 2470684394) 82 See_Comment [Automated messa ge] The system which generated this result transmitted reference range: 80 - 100 mmHg. The reference range was not used to interpret this result as normal/abnormal. HCO3 (test code = 2289901755) 22 See_Comment [Automated messa ge] The system which generated this result transmitted reference range: 22 - 26 mEq/L. The reference range was not used to interpret this result as normal/abnormal. BE (test code = 2822274210) -3.0 See_Comment [Automated messa ge] The system which generated this result transmitted reference range: -3.0 - 3.0 mEq/L. The reference range was not used to interpret this result as normal/abnormal. THB (test code = 5820810655) 9.7 g/dL 12.0-16.0 L %O2HB (test code = 7215126513) 96.1 % 94.0-99.0 %COHB ART (test code = 8164081081) 0.4 % 0.0-1.5 %METHB ART (test code = 8434460794) 0.0 % 0.4-1.5 L VOL%O2 ART (test code = 9937372832) 13.2 % 15.0-23.0 L NA (test code = 4300989391) 128 mmol/L 135-145 L K+ (test code = 8152447711) 3.6 mmol/L 3.5-5.0 AC CA IONZ (test code = 9736017462) 4.10 mg/dL 4.50-5.30 L GLUCOSE (test code = 6654209417) 215 mg/dL 70-110 H LACTIC ACID (test code = 5887706494) 1.75 mmol/L 0.50-2.20 Lab Interpretation (test code = 20594-9) [facility] Lactic Hfum7050-16-87 08:38:53* Test Item Value Reference Range Interpretation Comme nts PH (test code = 2) 7.38 7.35-7.45 PCO2 (test code = 6065567263) 37 See_Comment [Automated messa ge] The system which generated this result transmitted reference range: 35 - 45 mmHg. The reference range was not used to interpret this result as normal/abnormal. PO2 (test code = 5395524853) 82 See_Comment [Automated messa ge] The system which generated this result transmitted reference range: 80 - 100 mmHg. The reference range was not used to interpret this result as normal/abnormal. HCO3 (test code = 0407448003) 22 See_Comment [Automated messa ge] The system which generated this result transmitted reference range: 22 - 26 mEq/L. The reference range was not used to interpret this result as normal/abnormal. BE (test code = 3014230248) -3.0 See_Comment [Automated messa ge] The system which generated this result transmitted reference range: -3.0 - 3.0 mEq/L. The reference range was not used to interpret this result as normal/abnormal. THB (test code = 8289144349) 9.7 g/dL 12.0-16.0 L %O2HB (test code = 1638602133) 96.1 % 94.0-99.0 %COHB ART (test code = 5404955925) 0.4 % 0.0-1.5 %METHB ART (test code = 6094905603) 0.0 % 0.4-1.5 L VOL%O2 ART (test code = 4393580371) 13.2 % 15.0-23.0 L NA (test code = 3380363172) 128 mmol/L 135-145 L K+ (test code = 4169653992) 3.6 mmol/L 3.5-5.0 AC CA IONZ (test code = 9013551242) 4.10 mg/dL 4.50-5.30 L GLUCOSE (test code = 6907527585) 215 mg/dL 70-110 H LACTIC ACID (test code = 0960825403) 1.75 mmol/L 0.50-2.20 Lab Interpretation (test code = 43831-8) [facility] Lactic Elje6698-96-12 08:38:53* Test Item Value Reference Range Interpretation Comme nts PH (test code = 2) 7.38 7.35-7.45 PCO2 (test code = 0695006503) 37 See_Comment [Automated messa ge] The system which generated this result transmitted reference range: 35 - 45 mmHg. The reference range was not used to interpret this result as normal/abnormal. PO2 (test code = 5298011650) 82 See_Comment [Automated messa ge] The system which generated this result transmitted reference range: 80 - 100 mmHg. The reference range was not used to interpret this result as normal/abnormal. HCO3 (test code = 7095662566) 22 See_Comment [Automated messa ge] The system which generated this result transmitted reference range: 22 - 26 mEq/L. The reference range was not used to interpret this result as normal/abnormal. BE (test code = 5024493751) -3.0 See_Comment [Automated messa ge] The system which generated this result transmitted reference range: -3.0 - 3.0 mEq/L. The reference range was not used to interpret this result as normal/abnormal. THB (test code = 8851030554) 9.7 g/dL 12.0-16.0 L %O2HB (test code = 0466299381) 96.1 % 94.0-99.0 %COHB ART (test code = 1877165393) 0.4 % 0.0-1.5 %METHB ART (test code = 3242446199) 0.0 % 0.4-1.5 L VOL%O2 ART (test code = 8821917440) 13.2 % 15.0-23.0 L NA (test code = 2207712252) 128 mmol/L 135-145 L K+ (test code = 1357207082) 3.6 mmol/L 3.5-5.0 AC CA IONZ (test code = 5623663543) 4.10 mg/dL 4.50-5.30 L GLUCOSE (test code = 9063828187) 215 mg/dL 70-110 H LACTIC ACID (test code = 0817783026) 1.75 mmol/L 0.50-2.20 Lab Interpretation (test code = 65508-3) Abnormal [facility] GLUCOSE (AUTOMATED)2022-11-30 08:21:45* Test Item Value Reference Range Interpretation Comme nts POCT GLU (test code = 8180172353) 235 mg/dL 70-110 H Lab Interpretation (test cod e = 98799-7) Abnormal [facility] GLUCOSE (AUTOMATED)2022-11-30 08:21:45* Test Item Value Reference Range Interpretation Comme nts POCT GLU (test code = 4330450637) 235 mg/dL 70-110 H Lab Interpretation (test cod e = 30829-1) Abnormal [facility] GLUCOSE (AUTOMATED)2022-11-30 08:21:45* Test Item Value Reference Range Interpretation Comme nts POCT GLU (test code = 0561330218) 235 mg/dL 70-110 H Lab Interpretation (test cod e = 29376-0) Abnormal [facility] GLUCOSE (AUTOMATED)2022-11-30 08:21:45* Test Item Value Reference Range Interpretation Comme nts POCT GLU (test code = 1869249600) 235 mg/dL 70-110 H Lab Interpretation (test cod e = 71557-5) [facility] + Lactic Weia2563-03-12 04:31:18* Test Item Value Reference Range Interpretation Comme nts PH (test code = 2) 7.45 7.35-7.45 PCO2 (test code = 4938804136) 30 See_Comment L [Automated messa ge] The system which generated this result transmitted reference range: 35 - 45 mmHg. The reference range was not used to interpret this result as normal/abnormal. PO2 (test code = 6033636620) 102 See_Comment H [Automated messa ge] The system which generated this result transmitted reference range: 80 - 100 mmHg. The reference range was not used to interpret this result as normal/abnormal. HCO3 (test code = 0432258490) 20 See_Comment L [Automated messa ge] The system which generated this result transmitted reference range: 22 - 26 mEq/L. The reference range was not used to interpret this result as normal/abnormal. BE (test code = 8186779969) -2.8 See_Comment [Automated messa ge] The system which generated this result transmitted reference range: -3.0 - 3.0 mEq/L. The reference range was not used to interpret this result as normal/abnormal. THB (test code = 4298934249) 9.0 g/dL 12.0-16.0 L %O2HB (test code = 6071749603) 96.9 % 94.0-99.0 %COHB ART (test code = 4409483605) 0.7 % 0.0-1.5 %METHB ART (test code = 1761689046) 0.3 % 0.4-1.5 L VOL%O2 ART (test code = 3719637594) 12.4 % 15.0-23.0 L NA (test code = 5465204888) 129 mmol/L 135-145 L K+ (test code = 1712759834) 3.6 mmol/L 3.5-5.0 AC CA IONZ (test code = 0928028666) 4.20 mg/dL 4.50-5.30 L GLUCOSE (test code = 9601112984) 282 mg/dL 70-110 H LACTIC ACID (test code = 1223757881) 2.07 mmol/L 0.50-2.20 Lab Interpretation (test code = 71803-8) [facility] Lactic Sbqd8300-61-66 04:31:18* Test Item Value Reference Range Interpretation Comme nts PH (test code = 2) 7.45 7.35-7.45 PCO2 (test code = 1702859609) 30 See_Comment L [Automated messa ge] The system which generated this result transmitted reference range: 35 - 45 mmHg. The reference range was not used to interpret this result as normal/abnormal. PO2 (test code = 3411647274) 102 See_Comment H [Automated messa ge] The system which generated this result transmitted reference range: 80 - 100 mmHg. The reference range was not used to interpret this result as normal/abnormal. HCO3 (test code = 7007292735) 20 See_Comment L [Automated messa ge] The system which generated this result transmitted reference range: 22 - 26 mEq/L. The reference range was not used to interpret this result as normal/abnormal. BE (test code = 1434201372) -2.8 See_Comment [Automated messa ge] The system which generated this result transmitted reference range: -3.0 - 3.0 mEq/L. The reference range was not used to interpret this result as normal/abnormal. THB (test code = 1464563298) 9.0 g/dL 12.0-16.0 L %O2HB (test code = 2295118064) 96.9 % 94.0-99.0 %COHB ART (test code = 9459605423) 0.7 % 0.0-1.5 %METHB ART (test code = 1040303136) 0.3 % 0.4-1.5 L VOL%O2 ART (test code = 8720155080) 12.4 % 15.0-23.0 L NA (test code = 1539089942) 129 mmol/L 135-145 L K+ (test code = 5841053587) 3.6 mmol/L 3.5-5.0 AC CA IONZ (test code = 8466342894) 4.20 mg/dL 4.50-5.30 L GLUCOSE (test code = 7258729610) 282 mg/dL 70-110 H LACTIC ACID (test code = 9889437630) 2.07 mmol/L 0.50-2.20 Lab Interpretation (test code = 09360-1) [facility] [id number] 04:31:18* Test Item Value Reference Range Interpretation Comme nts PH (test code = 2) 7.45 7.35-7.45 PCO2 (test code = 5732184087) 30 See_Comment L [Automated messa ge] The system which generated this result transmitted reference range: 35 - 45 mmHg. The reference range was not used to interpret this result as normal/abnormal. PO2 (test code = 2630709204) 102 See_Comment H [Automated messa ge] The system which generated this result transmitted reference range: 80 - 100 mmHg. The reference range was not used to interpret this result as normal/abnormal. HCO3 (test code = 0732428634) 20 See_Comment L [Automated messa ge] The system which generated this result transmitted reference range: 22 - 26 mEq/L. The reference range was not used to interpret this result as normal/abnormal. BE (test code = 3600410714) -2.8 See_Comment [Automated messa ge] The system which generated this result transmitted reference range: -3.0 - 3.0 mEq/L. The reference range was not used to interpret this result as normal/abnormal. THB (test code = 6341682415) 9.0 g/dL 12.0-16.0 L %O2HB (test code = 6745664582) 96.9 % 94.0-99.0 %COHB ART (test code = 0552057176) 0.7 % 0.0-1.5 %METHB ART (test code = 3062340545) 0.3 % 0.4-1.5 L VOL%O2 ART (test code = 7240301338) 12.4 % 15.0-23.0 L NA (test code = 4931392962) 129 mmol/L 135-145 L K+ (test code = 8542984029) 3.6 mmol/L 3.5-5.0 AC CA IONZ (test code = 0857666514) 4.20 mg/dL 4.50-5.30 L GLUCOSE (test code = 7117234122) 282 mg/dL 70-110 H LACTIC ACID (test code = 9421939519) 2.07 mmol/L 0.50-2.20 Lab Interpretation (test code = 54816-8) [facility] Lactic [id number] 04:31:18* Test Item Value Reference Range Interpretation Comme nts PH (test code = 2) 7.45 7.35-7.45 PCO2 (test code = 4829104885) 30 See_Comment L [Automated messa ge] The system which generated this result transmitted reference range: 35 - 45 mmHg. The reference range was not used to interpret this result as normal/abnormal. PO2 (test code = 5339385867) 102 See_Comment H [Automated messa ge] The system which generated this result transmitted reference range: 80 - 100 mmHg. The reference range was not used to interpret this result as normal/abnormal. HCO3 (test code = 4438011876) 20 See_Comment L [Automated messa ge] The system which generated this result transmitted reference range: 22 - 26 mEq/L. The reference range was not used to interpret this result as normal/abnormal. BE (test code = 3057557202) -2.8 See_Comment [Automated messa ge] The system which generated this result transmitted reference range: -3.0 - 3.0 mEq/L. The reference range was not used to interpret this result as normal/abnormal. THB (test code = 4361566214) 9.0 g/dL 12.0-16.0 L %O2HB (test code = 5021118751) 96.9 % 94.0-99.0 %COHB ART (test code = 6920740917) 0.7 % 0.0-1.5 %METHB ART (test code = 0202453069) 0.3 % 0.4-1.5 L VOL%O2 ART (test code = 3643799691) 12.4 % 15.0-23.0 L NA (test code = 4926487431) 129 mmol/L 135-145 L K+ (test code = 3033212819) 3.6 mmol/L 3.5-5.0 AC CA IONZ (test code = 1181127954) 4.20 mg/dL 4.50-5.30 L GLUCOSE (test code = 6213953648) 282 mg/dL 70-110 H LACTIC ACID (test code = 2066359466) 2.07 mmol/L 0.50-2.20 Lab Interpretation (test code = 65475-6) Abnormal [facility] GLUCOSE (AUTOMATED)2022-11-30 03:20:39* Test Item Value Reference Range Interpretation Comme nts POCT GLU (test code = 9670232753) 319 mg/dL 70-110 H Lab Interpretation (test cod e = 99885-0) Abnormal [facility] GLUCOSE (AUTOMATED)2022-11-30 03:20:39* Test Item Value Reference Range Interpretation Comme nts POCT GLU (test code = 0586141759) 319 mg/dL 70-110 H Lab Interpretation (test cod e = 43435-9) Abnormal [facility] GLUCOSE (AUTOMATED)2022-11-30 03:20:39* Test Item Value Reference Range Interpretation Comme nts POCT GLU (test code = 8514596868) 319 mg/dL 70-110 H Lab Interpretation (test cod e = 66069-2) Abnormal [facility] GLUCOSE (AUTOMATED)2022-11-30 03:20:39* Test Item Value Reference Range Interpretation Comme nts POCT GLU (test code = 6977505112) 319 mg/dL 70-110 H Lab Interpretation (test cod e = 71722-0) Abnormal [facility] [id number] 00:32:44* Test Item Value Reference Range Interpretation Comme nts IRON (test code = 3372770296) 11 ug/dL 50-160 L TIBC (test code = 8693910785) 279 ug/dL 250-410 % FE SAT (test code = 2726303847) 4 % 20-50 L Lab Interpretation (test cod e = 05749-5) Abnormal [facility] [id number] 00:32:44* Test Item Value Reference Range Interpretation Comme nts IRON (test code = 4256552140) 11 ug/dL 50-160 L TIBC (test code = 6671531300) 279 ug/dL 250-410 % FE SAT (test code = 4740700403) 4 % 20-50 L Lab Interpretation (test cod e = 60031-1) Abnormal [facility] [id number] 00:32:44* Test Item Value Reference Range Interpretation Comme nts IRON (test code = 4745025747) 11 ug/dL 50-160 L TIBC (test code = 4388204699) 279 ug/dL 250-410 % FE SAT (test code = 2271850874) 4 % 20-50 L Lab Interpretation (test cod e = 64169-5) [facility] [id number] 00:32:44* Test Item Value Reference Range Interpretation Comme nts IRON (test code = 6526392481) 11 ug/dL 50-160 L TIBC (test code = 6841799972) 279 ug/dL 250-410 % FE SAT (test code = 2408669074) 4 % 20-50 L Lab Interpretation (test cod e = 39717-2) [facility]2022-11-29 23:06:19* Test Item Value Reference Range Interpretation Comme nts HGB A1C (test code = 4548-4) 9.5 % 4.0-5.7 H GALLITO (test code = GALLITO) Reference RangesNormal: <5.7%Prediabetes: 5.7 - 6.4%Diabetes: > 6.5% Lab Interpretation (test code = 18479-8) [facility]2022-11-29 23:06:19* Test Item Value Reference Range Interpretation Comme nts HGB A1C (test code = 4548-4) 9.5 % 4.0-5.7 H GALLITO (test code = GALLITO) Reference RangesNormal: <5.7%Prediabetes: 5.7 - 6.4%Diabetes: > 6.5% Lab Interpretation (test code = 95098-4) [facility]2022-11-29 23:06:19* Test Item Value Reference Range Interpretation Comme nts HGB A1C (test code = 4548-4) 9.5 % 4.0-5.7 H GALLITO (test code = GALLITO) Reference RangesNormal: <5.7%Prediabetes: 5.7 - 6.4%Diabetes: > 6.5% Lab Interpretation (test code = 94997-8) [facility]2022-11-29 23:06:19* Test Item Value Reference Range Interpretation Comme nts HGB A1C (test code = 4548-4) 9.5 % 4.0-5.7 H GALILTO (test code = GALLITO) Reference RangesNormal: <5.7%Prediabetes: 5.7 - 6.4%Diabetes: > 6.5% Lab Interpretation (test code = 07958-8) Abnormal [facility] GLUCOSE (AUTOMATED)2022-11-29 22:19:44* Test Item Value Reference Range Interpretation Comme nts POCT GLU (test code = 4655804365) 334 mg/dL 70-110 H Lab Interpretation (test cod e = 76619-2) Abnormal [facility] GLUCOSE (AUTOMATED)2022-11-29 22:19:44* Test Item Value Reference Range Interpretation Comme nts POCT GLU (test code = 2411593440) 334 mg/dL 70-110 H Lab Interpretation (test cod e = 10056-8) Abnormal [facility] GLUCOSE (AUTOMATED)2022-11-29 22:19:44* Test Item Value Reference Range Interpretation Comme nts POCT GLU (test code = 7021288299) 334 mg/dL 70-110 H Lab Interpretation (test cod e = 95252-0) Abnormal [facility] GLUCOSE (AUTOMATED)2022-11-29 22:19:44* Test Item Value Reference Range Interpretation Comme nts POCT GLU (test code = 6169239583) 334 mg/dL 70-110 H Lab Interpretation (test cod e = 37642-1) [facility] Whole [id number] 21:08:06* Test Item Value Reference Range Interpretation Comme nts LACTIC ACID (test code = 7789724115) 3.04 mmol/L 0.50-2.20 H Lab Interpretation (test cod e = 94068-2) [facility] [id number] 21:08:06* Test Item Value Reference Range Interpretation Comme nts LACTIC ACID (test code = 7542808994) 3.04 mmol/L 0.50-2.20 H Lab Interpretation (test cod e = 40175-5) [facility] [id number] 21:08:06* Test Item Value Reference Range Interpretation Comme nts LACTIC ACID (test code = 3967787725) 3.04 mmol/L 0.50-2.20 H Lab Interpretation (test cod e = 18417-5) [facility] Whole [id number] 21:08:06* Test Item Value Reference Range Interpretation Comme nts LACTIC ACID (test code = 4759057870) 3.04 mmol/L 0.50-2.20 H Lab Interpretation (test cod e = 23348-6) Abnormal [facility] GLUCOSE (AUTOMATED)2022-11-29 21:05:44* Test Item Value Reference Range Interpretation Comme nts POCT GLU (test code = 1690409888) 395 mg/dL 70-110 H Lab Interpretation (test cod e = 47721-6) Abnormal [facility] GLUCOSE (AUTOMATED)2022-11-29 21:05:44* Test Item Value Reference Range Interpretation Comme nts POCT GLU (test code = 8595073337) 395 mg/dL 70-110 H Lab Interpretation (test cod e = 85062-3) Abnormal [facility] GLUCOSE (AUTOMATED)2022-11-29 21:05:44* Test Item Value Reference Range Interpretation Comme nts POCT GLU (test code = 3919811490) 395 mg/dL 70-110 H Lab Interpretation (test cod e = 02774-9) Abnormal [facility] GLUCOSE (AUTOMATED)2022-11-29 21:05:44* Test Item Value Reference Range Interpretation Comme nts POCT GLU (test code = 2658246465) 395 mg/dL 70-110 H Lab Interpretation (test cod e = 11815-0) Abnormal [facility] WITH [id number] 18:01:46* Test Item Value Reference Range Interpretation Comme nts WBC (test code = 6690-2) 26.11 See_Comment H [Automated message] The system which generated this result transmitted reference range: 4.30 - 11.10 10*3/?L. The reference range was not used to interpret this result as normal/abnormal. RBC (test code = 789-8) 4.22 See_Comment [Automated message] The system which generated this result transmitted reference range: 3.93 - 5.25 10*6/?L. The reference range was not used to interpret this result as normal/abnormal. HGB (test code = 718-7) 11.3 g/dL 11.6-15.0 L HCT (test code = 4544-3) 34.4 % 35.7-45.2 L MCV (test code = 787-2) 81.5 fL 80.6-95.5 MCH (test code = 785-6) 26.8 pg 25.9-32.8 MCHC (test code = 786-4) 32.8 g/dL 31.6-35.1 RDW-SD (test code = 71461-6) 44.3 fL 39.0-49.9 RDW-CV (test code = 788-0) 15.0 % 12.0-15.5 PLT (test code = 777-3) 359 See_Comment H [Automated message] The system which generated this result transmitted reference range: 166 - 358 10*3/?L. The reference range was not used to interpret this result as normal/abnormal. MPV (test code = 27483-7) 9.1 fL 9.5-12.9 L NRBC/100 WBC (test code = 3145320948) 0.0 See_Comment [Automated message] The system which generated this result transmitted reference range: 0.0 - 10.0 /100 WBCs. The reference range was not used to interpret this result as normal/abnormal. NRBC x10^3 (test code = 0327997346) See_Comment [Automated message] The system which generated this result transmitted reference range: 10*3/?L. The reference range was not used to interpret this result as normal/abnormal. GRAN MAT (NEUT) % (test code = 770-8) 88.0 % IMM GRAN % (test code = 1327788688) 1.30 % LYMPH % (test code = 736-9) 4.8 % MONO % (test code = 5905-5) 5.3 % EOS % (test code = 713-8) 0.3 % BASO % (test code = 706-2) 0.3 % GRAN MAT x10^3(ANC) (test code = 3590508497) 22.98 10*3/uL 1.88-7.09 H IMM GRAN x10^3 (test code = 7033549856) 0.33 10*3/uL 0.00-0.06 H LYMPH x10^3 (test code = 731-0) 1.26 10*3/uL 1.32-3.29 L MONO x10^3 (test code = 742-7) 1.38 10*3/uL 0.33-0.92 H EOS x10^3 (test code = 711-2) 0.07 10*3/uL 0.03-0.39 BASO x10^3 (test code = 704-7) 0.09 10*3/uL 0.01-0.07 H BANDS (test code = 8530833493) Increased A DOHLE BODIES (test code = 7792-5) Present A REACT LYMPHS (test code = 6238278807) Rare TOXIC CHANGES (test code = 803-7) Present A Lab Interpretation (test code = 27650-7) Abnormal [facility] WITH [id number] 18:01:46* Test Item Value Reference Range Interpretation Comme nts WBC (test code = 6690-2) 26.11 See_Comment H [Automated message] The system which generated this result transmitted reference range: 4.30 - 11.10 10*3/?L. The reference range was not used to interpret this result as normal/abnormal. RBC (test code = 789-8) 4.22 See_Comment [Automated message] The system which generated this result transmitted reference range: 3.93 - 5.25 10*6/?L. The reference range was not used to interpret this result as normal/abnormal. HGB (test code = 718-7) 11.3 g/dL 11.6-15.0 L HCT (test code = 4544-3) 34.4 % 35.7-45.2 L MCV (test code = 787-2) 81.5 fL 80.6-95.5 MCH (test code = 785-6) 26.8 pg 25.9-32.8 MCHC (test code = 786-4) 32.8 g/dL 31.6-35.1 RDW-SD (test code = 11763-2) 44.3 fL 39.0-49.9 RDW-CV (test code = 788-0) 15.0 % 12.0-15.5 PLT (test code = 777-3) 359 See_Comment H [Automated message] The system which generated this result transmitted reference range: 166 - 358 10*3/?L. The reference range was not used to interpret this result as normal/abnormal. MPV (test code = 98208-6) 9.1 fL 9.5-12.9 L NRBC/100 WBC (test code = 5088634144) 0.0 See_Comment [Automated message] The system which generated this result transmitted reference range: 0.0 - 10.0 /100 WBCs. The reference range was not used to interpret this result as normal/abnormal. NRBC x10^3 (test code = 9954792867) See_Comment [Automated message] The system which generated this result transmitted reference range: 10*3/?L. The reference range was not used to interpret this result as normal/abnormal. GRAN MAT (NEUT) % (test code = 770-8) 88.0 % IMM GRAN % (test code = 0333275005) 1.30 % LYMPH % (test code = 736-9) 4.8 % MONO % (test code = 5905-5) 5.3 % EOS % (test code = 713-8) 0.3 % BASO % (test code = 706-2) 0.3 % GRAN MAT x10^3(ANC) (test code = 4335998865) 22.98 10*3/uL 1.88-7.09 H IMM GRAN x10^3 (test code = 6441342698) 0.33 10*3/uL 0.00-0.06 H LYMPH x10^3 (test code = 731-0) 1.26 10*3/uL 1.32-3.29 L MONO x10^3 (test code = 742-7) 1.38 10*3/uL 0.33-0.92 H EOS x10^3 (test code = 711-2) 0.07 10*3/uL 0.03-0.39 BASO x10^3 (test code = 704-7) 0.09 10*3/uL 0.01-0.07 H BANDS (test code = 9332081539) Increased A DOHLE BODIES (test code = 7792-5) Present A REACT LYMPHS (test code = 2280735638) Rare TOXIC CHANGES (test code = 803-7) Present A Lab Interpretation (test code = 07063-8) Abnormal [facility] WITH [id number] 18:01:46* Test Item Value Reference Range Interpretation Comme nts WBC (test code = 6690-2) 26.11 See_Comment H [Automated message] The system which generated this result transmitted reference range: 4.30 - 11.10 10*3/?L. The reference range was not used to interpret this result as normal/abnormal. RBC (test code = 789-8) 4.22 See_Comment [Automated message] The system which generated this result transmitted reference range: 3.93 - 5.25 10*6/?L. The reference range was not used to interpret this result as normal/abnormal. HGB (test code = 718-7) 11.3 g/dL 11.6-15.0 L HCT (test code = 4544-3) 34.4 % 35.7-45.2 L MCV (test code = 787-2) 81.5 fL 80.6-95.5 MCH (test code = 785-6) 26.8 pg 25.9-32.8 MCHC (test code = 786-4) 32.8 g/dL 31.6-35.1 RDW-SD (test code = 83015-9) 44.3 fL 39.0-49.9 RDW-CV (test code = 788-0) 15.0 % 12.0-15.5 PLT (test code = 777-3) 359 See_Comment H [Automated message] The system which generated this result transmitted reference range: 166 - 358 10*3/?L. The reference range was not used to interpret this result as normal/abnormal. MPV (test code = 25078-4) 9.1 fL 9.5-12.9 L NRBC/100 WBC (test code = 7050745373) 0.0 See_Comment [Automated message] The system which generated this result transmitted reference range: 0.0 - 10.0 /100 WBCs. The reference range was not used to interpret this result as normal/abnormal. NRBC x10^3 (test code = 1262468849) See_Comment [Automated message] The system which generated this result transmitted reference range: 10*3/?L. The reference range was not used to interpret this result as normal/abnormal. GRAN MAT (NEUT) % (test code = 770-8) 88.0 % IMM GRAN % (test code = 3675353713) 1.30 % LYMPH % (test code = 736-9) 4.8 % MONO % (test code = 5905-5) 5.3 % EOS % (test code = 713-8) 0.3 % BASO % (test code = 706-2) 0.3 % GRAN MAT x10^3(ANC) (test code = 4334110323) 22.98 10*3/uL 1.88-7.09 H IMM GRAN x10^3 (test code = 6566750434) 0.33 10*3/uL 0.00-0.06 H LYMPH x10^3 (test code = 731-0) 1.26 10*3/uL 1.32-3.29 L MONO x10^3 (test code = 742-7) 1.38 10*3/uL 0.33-0.92 H EOS x10^3 (test code = 711-2) 0.07 10*3/uL 0.03-0.39 BASO x10^3 (test code = 704-7) 0.09 10*3/uL 0.01-0.07 H BANDS (test code = 8112879728) Increased A DOHLE BODIES (test code = 7792-5) Present A REACT LYMPHS (test code = 9042890151) Rare TOXIC CHANGES (test code = 803-7) Present A Lab Interpretation (test code = 02950-5) Abnormal [facility] WITH [id number] 18:01:46* Test Item Value Reference Range Interpretation Comme nts WBC (test code = 6690-2) 26.11 See_Comment H [Automated message] The system which generated this result transmitted reference range: 4.30 - 11.10 10*3/?L. The reference range was not used to interpret this result as normal/abnormal. RBC (test code = 789-8) 4.22 See_Comment [Automated message] The system which generated this result transmitted reference range: 3.93 - 5.25 10*6/?L. The reference range was not used to interpret this result as normal/abnormal. HGB (test code = 718-7) 11.3 g/dL 11.6-15.0 L HCT (test code = 4544-3) 34.4 % 35.7-45.2 L MCV (test code = 787-2) 81.5 fL 80.6-95.5 MCH (test code = 785-6) 26.8 pg 25.9-32.8 MCHC (test code = 786-4) 32.8 g/dL 31.6-35.1 RDW-SD (test code = 53931-7) 44.3 fL 39.0-49.9 RDW-CV (test code = 788-0) 15.0 % 12.0-15.5 PLT (test code = 777-3) 359 See_Comment H [Automated message] The system which generated this result transmitted reference range: 166 - 358 10*3/?L. The reference range was not used to interpret this result as normal/abnormal. MPV (test code = 08882-7) 9.1 fL 9.5-12.9 L NRBC/100 WBC (test code = 1698446204) 0.0 See_Comment [Automated message] The system which generated this result transmitted reference range: 0.0 - 10.0 /100 WBCs. The reference range was not used to interpret this result as normal/abnormal. NRBC x10^3 (test code = 0125340491) See_Comment [Automated message] The system which generated this result transmitted reference range: 10*3/?L. The reference range was not used to interpret this result as normal/abnormal. GRAN MAT (NEUT) % (test code = 770-8) 88.0 % IMM GRAN % (test code = 7283427850) 1.30 % LYMPH % (test code = 736-9) 4.8 % MONO % (test code = 5905-5) 5.3 % EOS % (test code = 713-8) 0.3 % BASO % (test code = 706-2) 0.3 % GRAN MAT x10^3(ANC) (test code = 5091602530) 22.98 10*3/uL 1.88-7.09 H IMM GRAN x10^3 (test code = 1363900692) 0.33 10*3/uL 0.00-0.06 H LYMPH x10^3 (test code = 731-0) 1.26 10*3/uL 1.32-3.29 L MONO x10^3 (test code = 742-7) 1.38 10*3/uL 0.33-0.92 H EOS x10^3 (test code = 711-2) 0.07 10*3/uL 0.03-0.39 BASO x10^3 (test code = 704-7) 0.09 10*3/uL 0.01-0.07 H BANDS (test code = 3456322998) Increased A DOHLE BODIES (test code = 7792-5) Present A REACT LYMPHS (test code = 7619538667) Rare TOXIC CHANGES (test code = 803-7) Present A Lab Interpretation (test code = 09025-8) [facility] (ALB,T.PRO,BILI T,BU/BC,ALT,AST,ALK PHOS)2022-11-29 17:39:36* Test Item Value Reference Range Interpretation Comme nts TOTAL BILI (test code = 4922941873) 2.6 mg/dL 0.1-1.1 H BILI UNCON (test code = 0113295487) 1.3 mg/dL 0.1-1.1 H BILI CONJ (test code = 9716598537) 0.3 mg/dL 0.0-0.3 T PROTEIN (test code = 3100680105) 7.2 g/dL 6.3-8.2 ALBUMIN (test code = 1252818610) 3.8 g/dL 3.5-5.0 ALK PHOS (test code = 8923594017) 148 U/L 34-122 H ALTv (test code = 1742-6) 32 U/L 5-35 AST(SGOT) (test code = 3587134233) 32 U/L 13-40 Lab Interpretation (test cod e = 38771-0) [facility]75013[facility] (ALB,T.PRO,BILI T,BU/BC,ALT,AST,ALK PHOS)2022-11-29 17:39:36* Test Item Value Reference Range Interpretation Comme nts TOTAL BILI (test code = 2718649766) 2.6 mg/dL 0.1-1.1 H BILI UNCON (test code = 5462999119) 1.3 mg/dL 0.1-1.1 H BILI CONJ (test code = 5638571433) 0.3 mg/dL 0.0-0.3 T PROTEIN (test code = 9660262020) 7.2 g/dL 6.3-8.2 ALBUMIN (test code = 3649701164) 3.8 g/dL 3.5-5.0 ALK PHOS (test code = 6237458944) 148 U/L 34-122 H ALTv (test code = 1742-6) 32 U/L 5-35 AST(SGOT) (test code = 0306619035) 32 U/L 13-40 Lab Interpretation (test cod e = 32908-0) [facility]16944[facility] (ALB,T.PRO,BILI T,BU/BC,ALT,AST,ALK PHOS)2022-11-29 17:39:36* Test Item Value Reference Range Interpretation Comme nts TOTAL BILI (test code = 3508465692) 2.6 mg/dL 0.1-1.1 H BILI UNCON (test code = 9171586350) 1.3 mg/dL 0.1-1.1 H BILI CONJ (test code = 1073167423) 0.3 mg/dL 0.0-0.3 T PROTEIN (test code = 1579126125) 7.2 g/dL 6.3-8.2 ALBUMIN (test code = 4616245085) 3.8 g/dL 3.5-5.0 ALK PHOS (test code = 6782502192) 148 U/L 34-122 H ALTv (test code = 1742-6) 32 U/L 5-35 AST(SGOT) (test code = 8202230458) 32 U/L 13-40 Lab Interpretation (test cod e = 88097-8) [facility] (ALB,T.PRO,BILI T,BU/BC,ALT,AST,ALK PHOS)2022-11-29 17:39:36* Test Item Value Reference Range Interpretation Comme nts TOTAL BILI (test code = 5004599196) 2.6 mg/dL 0.1-1.1 H BILI UNCON (test code = 4688427084) 1.3 mg/dL 0.1-1.1 H BILI CONJ (test code = 3250599863) 0.3 mg/dL 0.0-0.3 T PROTEIN (test code = 0313506413) 7.2 g/dL 6.3-8.2 ALBUMIN (test code = 2983267705) 3.8 g/dL 3.5-5.0 ALK PHOS (test code = 8467450889) 148 U/L 34-122 H ALTv (test code = 1742-6) 32 U/L 5-35 AST(SGOT) (test code = 3778320251) 32 U/L 13-40 Lab Interpretation (test cod e = 97143-4) Abnormal [facility] METABOLIC PANEL (NA, K, CL, CO2, GLUCOSE, BUN, CREATININE, CA)2022-11-29 17:39:31* Test Item Value Reference Range Interpretation Comme nts NA (test code = 6861955725) 131 mmol/L 135-145 L K (test code = 4018519321) 3.8 mmol/L 3.5-5.0 CL (test code = 0766543084) 92 mmol/L 98-108 L CO2 TOTAL (test code = 5150795843) 19 mmol/L 23-31 L AGAP (test code = 6151663566) 20 2-16 H BUN (test code = 9870841261) 22 mg/dL 7-23 GLUCOSE (test code = 5434988293) 372 mg/dL 70-110 H CREATININE (test code = 9992055153) 1.71 mg/dL 0.50-1.04 H CALCIUM (test code = 2106973943) 8.5 mg/dL 8.6-10.6 L eGFR (test code = 3036135034) 31.2 mL/min/1.73m2 GALLITO (test code = GALLITO) Association of [...] or abnormalities in imaging tests). Lab Interpretation (test code = 93099-5) [facility]* Test Item Value Reference Range Interpretation Comme nts LIPASE (test code = 6915719133) 73 U/L 0-220 Lab Interpretation (test cod e = 50815-7) [facility] (NA, K, CL, CO2, GLUCOSE, BUN, CREATININE, CA)2022-11-29 17:39:31* Test Item Value Reference Range Interpretation Comme nts NA (test code = 6646159258) 131 mmol/L 135-145 L K (test code = 4854711637) 3.8 mmol/L 3.5-5.0 CL (test code = 1942211530) 92 mmol/L 98-108 L CO2 TOTAL (test code = 6074312488) 19 mmol/L 23-31 L AGAP (test code = 5108506866) 20 2-16 H BUN (test code = 2543228650) 22 mg/dL 7-23 GLUCOSE (test code = 0141030822) 372 mg/dL 70-110 H CREATININE (test code = 4571075936) 1.71 mg/dL 0.50-1.04 H CALCIUM (test code = 6727919821) 8.5 mg/dL 8.6-10.6 L eGFR (test code = 3166745469) 31.2 mL/min/1.73m2 GALLITO (test code = GALLITO) Association of [...] or abnormalities in imaging tests). Lab Interpretation (test code = 31799-8) [facility]:39:31* Test Item Value Reference Range Interpretation Comme nts LIPASE (test code = 7028929251) 73 U/L 0-220 Lab Interpretation (test cod e = 81927-1) [facility] (NA, K, CL, CO2, GLUCOSE, BUN, CREATININE, CA)2022-11-29 17:39:31* Test Item Value Reference Range Interpretation Comme nts NA (test code = 2142825315) 131 mmol/L 135-145 L K (test code = 9030018775) 3.8 mmol/L 3.5-5.0 CL (test code = 3558347665) 92 mmol/L 98-108 L CO2 TOTAL (test code = 8076157677) 19 mmol/L 23-31 L AGAP (test code = 7117124088) 20 2-16 H BUN (test code = 6736719057) 22 mg/dL 7-23 GLUCOSE (test code = 6046708871) 372 mg/dL 70-110 H CREATININE (test code = 9052727740) 1.71 mg/dL 0.50-1.04 H CALCIUM (test code = 2917420799) 8.5 mg/dL 8.6-10.6 L eGFR (test code = 5929350971) 31.2 mL/min/1.73m2 GALLITO (test code = GALLITO) Association of [...] or abnormalities in imaging tests). Lab Interpretation (test code = 24566-0) [facility] 17:39:31* Test Item Value Reference Range Interpretation Comme nts LIPASE (test code = 0471052741) 73 U/L 0-220 Lab Interpretation (test cod e = 44316-9) [facility] (NA, K, CL, CO2, GLUCOSE, BUN, CREATININE, CA)2022-11-29 17:39:31* Test Item Value Reference Range Interpretation Comme nts NA (test code = 6884182819) 131 mmol/L 135-145 L K (test code = 8306780907) 3.8 mmol/L 3.5-5.0 CL (test code = 9684008677) 92 mmol/L 98-108 L CO2 TOTAL (test code = 2178625349) 19 mmol/L 23-31 L AGAP (test code = 3082769579) 20 2-16 H BUN (test code = 2234821317) 22 mg/dL 7-23 GLUCOSE (test code = 9344597277) 372 mg/dL 70-110 H CREATININE (test code = 8258644739) 1.71 mg/dL 0.50-1.04 H CALCIUM (test code = 3895986153) 8.5 mg/dL 8.6-10.6 L eGFR (test code = 0966649823) 31.2 mL/min/1.73m2 GALLITO (test code = GALLITO) Association of [...] or abnormalities in imaging tests). Lab Interpretation (test code = 73568-1) [facility] 17:39:31* Test Item Value Reference Range Interpretation Comme [facility] LIPASE (test code = 4530960743) 73 U/L 0-220 Lab Interpretation (test cod e = 21721-9) Normal [facility] [id number] 17:36:52* Test Item Value Reference Range Interpretation Comme nts APTT Patient (test code = 3173-2) 28 See_Comment [Automated message] The system which generated this result transmitted reference range: 23 - 38 Seconds. The reference range was not used to interpret this result as normal/abnormal. GALLITO (test code = GALLITO) The [facility] patient population mean normal value for aPTT is 30 seconds. Lab Interpretation (test code = 62900-8) Normal [facility] [id number] 17:36:52* Test Item Value Reference Range Interpretation Comme nts APTT Patient (test code = 3173-2) 28 See_Comment [Automated message] The system which generated this result transmitted reference range: 23 - 38 Seconds. The reference range was not used to interpret this result as normal/abnormal. GALLITO (test code = GALLITO) The [facility] patient population mean normal value for aPTT is 30 seconds. Lab Interpretation (test code = 20262-6) Normal [facility] [id number] 17:36:52* Test Item Value Reference Range Interpretation Comme [facility] APTT Patient (test code = 3173-2) 28 See_Comment [Automated message] The system which generated this result transmitted reference range: 23 - 38 Seconds. The reference range was not used to interpret this result as normal/abnormal. GALLITO (test code = GALLITO) The [facility] patient population mean normal value for aPTT is 30 seconds. Lab Interpretation (test code = 04646-9) Normal [facility] [id number] 17:36:52* Test Item Value Reference Range Interpretation Comme [facility] APTT Patient (test code = 3173-2) 28 See_Comment [Automated message] The system which generated this result transmitted reference range: 23 - 38 Seconds. The reference range was not used to interpret this result as normal/abnormal. GALLITO (test code = GALLITO) The [facility] patient population mean normal value for aPTT is 30 seconds. Lab Interpretation (test code = 17781-1) Normal [facility]PROT[facility] / [id number] 17:34:51* Test Item Value Reference Range Interpretation Comme [facility] PROTIME PATIENT (test code = 5964-2) 15.4 See_Comment H [Automated messa ge] The system which generated this result transmitted reference range: 12.0 - 14.7 Seconds. The reference range was not used to interpret this result as normal/abnormal. INR (test code = 6301-6) 1.3 Normal INR <1.1; Warfarin Therapeutic range 2.0 to 3.0 or 2.5 to 3.5, depending upon the indications. Lab Interpretation (test code = 61903-0) Abnormal [facility]PROT[facility] / [id number] 17:34:51* Test Item Value Reference Range Interpretation Comme [facility] PROTIME PATIENT (test code = 5964-2) 15.4 See_Comment H [Automated messa ge] The system which generated this result transmitted reference range: 12.0 - 14.7 Seconds. The reference range was not used to interpret this result as normal/abnormal. INR (test code = 6301-6) 1.3 Normal INR <1.1; Warfarin Therapeutic range 2.0 to 3.0 or 2.5 to 3.5, depending upon the indications. Lab Interpretation (test code = 05841-9) Abnormal [facility]PROT[facility] / [id number] 17:34:51* Test Item Value Reference Range Interpretation Comme nts PROTIME PATIENT (test code = 5964-2) 15.4 See_Comment H [Automated messa ge] The system which generated this result transmitted reference range: 12.0 - 14.7 Seconds. The reference range was not used to interpret this result as normal/abnormal. INR (test code = 6301-6) 1.3 Normal INR <1.1; Warfarin Therapeutic range 2.0 to 3.0 or 2.5 to 3.5, depending upon the indications. Lab Interpretation (test code = 84496-8) Abnormal [facility] / [id number] 17:34:51* Test Item Value Reference Range Interpretation Comme nts PROTIME PATIENT (test code = 5964-2) 15.4 See_Comment H [Automated messa ge] The system which generated this result transmitted reference range: 12.0 - 14.7 Seconds. The reference range was not used to interpret this result as normal/abnormal. INR (test code = 6301-6) 1.3 Normal INR <1.1; Warfarin Therapeutic range 2.0 to 3.0 or 2.5 to 3.5, depending upon the indications. Lab Interpretation (test code = 14957-7) Abnormal [facility] GLUCOSE (AUTOMATED)2022-11-29 16:52:24* Test Item Value Reference Range Interpretation Comme nts POCT GLU (test code = 0868932843) 412 mg/dL 70-110 H Lab Interpretation (test cod e = 85975-4) Abnormal [facility] GLUCOSE (AUTOMATED)2022-11-29 16:52:24* Test Item Value Reference Range Interpretation Comme nts POCT GLU (test code = 1216283099) 412 mg/dL 70-110 H Lab Interpretation (test cod e = 53075-1) Abnormal [facility] GLUCOSE (AUTOMATED)2022-11-29 16:52:24* Test Item Value Reference Range Interpretation Comme nts POCT GLU (test code = 2844601334) 412 mg/dL 70-110 H Lab Interpretation (test cod e = 96260-2) Abnormal [facility] GLUCOSE (AUTOMATED)2022-11-29 16:52:24* Test Item Value Reference Range Interpretation Comme nts POCT GLU (test code = 8184884827) 412 mg/dL 70-110 H Lab Interpretation (test cod e = 69252-6) Abnormal [facility]TR[facility] [id number] 21:18:59* Test Item Value Reference Range Interpretation Comme nts TROPONIN I (test code = 1270918100) 0.000 ng/mL <=0.034 GALLITO (test code = GALLITO) Reference (Normal) [...] patient's use of biotin. Lab Interpretation (test code = 01938-7) Normal [facility] [id number] 21:16:01* Test Item Value Reference Range Interpretation Comme nts NT-proBNP (test code = 0944593963) 191 pg/mL <=125 H GALLITO (test code = GALLITO) Biotin has been reported to cause a negative bias, interpret results relative to patient's use of biotin. Lab Interpretation (test code = 79697-2) Abnormal [facility] HospitalCB WITH [id number] 20:56:56* Test Item Value Reference Range Interpretation Comme nts WBC (test code = 6690-2) 10.57 See_Comment [Automated messa ge] The system which generated this result transmitted reference range: 4.30 - 11.10 10*3/?L. The reference range was not used to interpret this result as normal/abnormal. RBC (test code = 789-8) 4.24 See_Comment [Automated messa ge] The system which generated this result transmitted reference range: 3.93 - 5.25 10*6/?L. The reference range was not used to interpret this result as normal/abnormal. HGB (test code = 718-7) 11.4 g/dL 11.6-15.0 L HCT (test code = 4544-3) 36.0 % 35.7-45.2 MCV (test code = 787-2) 84.9 fL 80.6-95.5 MCH (test code = 785-6) 26.9 pg 25.9-32.8 MCHC (test code = 786-4) 31.7 g/dL 31.6-35.1 RDW-SD (test code = 73467-5) 44.9 fL 39.0-49.9 RDW-CV (test code = 788-0) 14.7 % 12.0-15.5 PLT (test code = 777-3) 413 See_Comment H [Automated messa ge] The system which generated this result transmitted reference range: 166 - 358 10*3/?L. The reference range was not used to interpret this result as normal/abnormal. MPV (test code = 33159-1) 9.6 fL 9.5-12.9 NRBC/100 WBC (test code = 1455555448) 0.0 See_Comment [Automated me ssage] The system which generated this result transmitted reference range: 0.0 - 10.0 /100 WBCs. The reference range was not used to interpret this result as normal/abnormal. NRBC x10^3 (test code = 8793667453) See_Comment [Automated messa ge] The system which generated this result transmitted reference range: 10*3/?L. The reference range was not used to interpret this result as normal/abnormal. GRAN MAT (NEUT) % (test code = 770-8) 77.4 % IMM GRAN % (test code = 6459255595) 0.60 % LYMPH % (test code = 736-9) 13.9 % MONO % (test code = 5905-5) 5.6 % EOS % (test code = 713-8) 2.0 % BASO % (test code = 706-2) 0.5 % GRAN MAT x10^3(ANC) (test code = 0299593132) 8.19 10*3/uL 1.88-7.09 H IMM GRAN x10^3 (test code = 0255028394) 0.06 10*3/uL 0.00-0.06 LYMPH x10^3 (test code = 731-0) 1.47 10*3/uL 1.32-3.29 MONO x10^3 (test code = 742-7) 0.59 10*3/uL 0.33-0.92 EOS x10^3 (test code = 711-2) 0.21 10*3/uL 0.03-0.39 BASO x10^3 (test code = 704-7) 0.05 10*3/uL 0.01-0.07 Lab Interpretation (test code = 88997-5) Abnormal [facility] GLUCOSE (AUTOMATED)2022-07-30 18:11:11* Test Item Value Reference Range Interpretation Comme nts POCT GLU (test code = 5874123780) 169 mg/dL 70-110 H Lab Interpretation (test cod e = 17624-9) Abnormal [facility] GLUCOSE (AUTOMATED)2022-07-30 18:11:11* Test Item Value Reference Range Interpretation Comme nts POCT GLU (test code = 3280104967) 169 mg/dL 70-110 H Lab Interpretation (test cod e = 86508-7) Abnormal [facility] GLUCOSE (AUTOMATED)2022-06-08 21:06:17* Test Item Value Reference Range Interpretation Comme nts POCT GLU (test code = 4419463299) 222 mg/dL 70-110 H Lab Interpretation (test cod e = 12849-3) Abnormal [facility] GLUCOSE (AUTOMATED)2022-06-08 12:37:38* Test Item Value Reference Range Interpretation Comme nts POCT GLU (test code = 3131387852) 253 mg/dL 70-110 H Lab Interpretation (test cod e = 33448-8) Abnormal [facility] GLUCOSE (AUTOMATED)2022-06-08 12:37:38* Test Item Value Reference Range Interpretation Comme nts POCT GLU (test code = 5915851719) 253 mg/dL 70-110 H Lab Interpretation (test cod e = 20129-6) Abnormal [facility] Consult Notes Date/Time Note Provider Source 2024-07-24 13:34:11 Associated Order(s): CONSULT CARDIOLOGY-HEART FAILURE MEDICAL CONSULT Images from the original note were not included. Advanced Heart Failure & Transplant Division of Cardiovascular Medicine Chief complaint: Exertional SOB HPI: Hilda Colón is a 53 year old female patient who has a past medical history of hypertension, HFpEF, DM type 2, iron deficiency anemia, uterine cancer, thyroid nodule with hyperthyroid, vitamin D deficiency admitted on 07/23/2024 from the [facility] for severe arterial pulmonary HTN. Patient reports exertional SOB after walking 1 block for the past few months, denies SOB at rest, PND, orthopnea, chest pain, palpitations, or LE swelling. Patient was referred to general cardiology in [facility] where she got diagnosed with HFpEF. On the TTE, patient with RV dilatation, systolic dysfunction and septal flattening. Patient was sent to [facility] [place] for RHC on 07/23/2025. On RHC, patient was found with severe pulmonary arteria hypertension. Patient was admitted for further evaluation and IV diuresis Patient was recently diagnosed with ROSALIO, can not tolerate with CPAP machine and therefore not using it. Additionally, patient has thyroid nodule with hyperthyroidism, however, progressive worsening of thyroid function test with low TSH and elevated T4 Past Medical History: Past Medical History: Diagnosis Date Abnormal uterine bleeding 02/19/2021 Endometrial cancer Hypertension Iron deficiency anemia Renal insufficiency under care with nephrology Thyroid nodule Type 2 diabetes mellitus Uterine cancer Vitamin D deficiency Past Social History: Past Surgical History: Procedure Laterality Date COLONOSCOPY N/A 06/08/2022 Surgeon: Ely Hess MD; Location: [facility] OR [facility] COLONOSCOPY WITH CONTROL BLEEDING (SHX) N/A 03/02/2023 Surgeon: Tracy Grijalva MD; Location: [facility] CYSTOSCOPY N/A 06/10/2021 Surgeon: Scott Russell MD; Location: [facility] DEBRIDEMENT PERINEUM (SHX) Right 11/29/2022 Surgeon: Ayala Collins MD; Location: [facility] DEBRIDEMENT PERINEUM (SHX) N/A 12/02/2022 Surgeon: Sandra Dave MD; Location: [facility] FLEXIBLE SIGMOIDOSCOPY (SHX) N/A 03/02/2023 Surgeon: Tracy Grijalva MD; Location: [facility] OR LOCATION INCISION AND DRAINAGE BUTTOCK (SHX) Right 11/29/2022 Surgeon: Ayala Collins MD; Location: [facility]ATION INTRACAVITARY BRACHYTHERAPY (SHX) N/A 04/22/2021 Surgeon: Kalina Sanchez MD; Location: [facility] INTRACAVITARY BRACHYTHERAPY (SHX) N/A 04/29/2021 Surgeon: Kalina Sanchez MD; Location: [facility] LAPAROSCOPIC ROBOTIC ASSISTED SALPINGO-OOPHORECTOMY Bilateral 06/10/2021 Surgeon: Scott Russell MD; Location: [facility] LAPAROSCOPIC ROBOTIC ASSISTED VAGINAL HYSTERECTOMY N/A 06/10/2021 Surgeon: Scott Russell MD; Location: [facility] MASS EXCISION Right 07/30/2022 Surgeon: Dudley Waddell MD; Location: [facility] WOUND DEBRIDEMENT N/A 12/01/2022 Surgeon: Maggie Dumont MD; Location: [facility]ATION Past Family History: Family History Family history unknown: Yes Current Facility-Administered Medications: albuterol (PROVENTIL) 2.5 mg /3 mL (0.083 %) nebulizer solution 2.5 mg, 2.5 mg, Inhalation, QID, Slanina, Sue, ACNP pokwylrpaz-qevxwdqazudzf-hmr f (ESGIC) 50-325-40 mg tablet 1 tablet, 1 tablet, Oral, Q4HPRN, Slanina, Sue, ACNP, 1 tablet at 07/24/24 1313 empagliflozin (JARDIANCE) tablet 10 mg, 10 mg, Oral, DAILY, Patito Polanco MD, 10 mg at 07/24/24 0933 furosemide (LASIX) injection 40 mg, 40 mg, Slow IV Push, QAM+PM, Patito Polanco MD ipratropium (ATROVENT) 0.02 % nebulizer solution 0.5 mg, 0.5 mg, Inhalation, Q4HPRN, Slanina, Sue, ACNP methIMAzole (TAPAZOLE) tablet 30 mg, 30 mg, Oral, Q8H, Naila Jimenez Nitin, DO, 30 mg at 07/24/24 1313 acetaminophen (TYLENOL) tablet 650 mg, 650 mg, Oral, Q6HPRN, Nav Hernandez MD, 650 mg at 07/24/24 0923 dextrose 50 % in water (D50W) injection 25 mL, 25 mL, Slow IV Push, PRN, Nav Hernandez MD docusate (COLACE) capsule 100 mg, 100 mg, Oral, DAILY, Nav Hernandez MD enoxaparin (LOVENOX) injection 40 mg, 40 mg, Subcutaneous, DAILY, Nav Hernandez MD, 40 mg at 07/24/24 0917 foLIC acid (FOLATE) tablet 1 mg, 1 mg, Oral, DAILY, Nav Hernandez MD, 1 mg at 07/24/24 0916 gabapentin (NEURONTIN) capsule 300 mg, 300 mg, Oral, TID, Nav Hernandez MD, 300 mg at 07/24/24 1313 glucagon HCL injection 1 mg, 1 mg, Intramuscular, PRN, Nav Hernandez MD HYDROcodone-acetaminophen (NORCO 5) tablet 1 tablet, 1 tablet, Oral, Q6HPRN, Nav Hernandez MD, 1 tablet at 07/23/24 1637 loperamide (IMODIUM A-D) capsule 2 mg, 2 mg, Oral, Q6HPRN, Tejas Akers, TIMBER SELECTOR, 2 mg at 07/23/24 0824 morphine (2 mg/mL) injection 2 mg, 2 mg, Slow IV Push, Q4HPRN, Titi Jackson, AGACNP, 2 mg at 07/23/24 2311 ondansetron (ZOFRAN (PF)) injection 4 mg, 4 mg, Slow IV Push, Q6HPRN, Nav Hernandez MD, 4 mg at 07/24/24 0613 pantoprazole (PROTONIX) EC tablet 40 mg, 40 mg, Oral, DAILY, Nav Hernandez MD, 40 mg at 07/24/24 0923 propranoloL (INDERAL) tablet 20 mg, 20 mg, Oral, BID, Nav Hernandez MD, 20 mg at 07/24/24 0917 sennosides-docusate sodium (SENOKOT-S) 8.6-50 mg per tablet 1 tablet, 1 tablet, Oral, DAILY, Nav Hernandez MD Sliding Scale Insulin - Lispro (HumaLOG), , Subcutaneous, Q6H, Nav Hernandez MD spironolactone (ALDACTONE) tablet 25 mg, 25 mg, Oral, DAILY, Nav Hernandez MD, 25 mg at 07/24/24 0916 vitamin B-12 (CYANOCOBALAMIN) tablet 1,000 mcg, 1,000 mcg, Oral, DAILY, Nav Hernandez MD, 1,000 mcg at 07/24/24 0917 REVIEW OF SYSTEMS Negative except HPI. PHYSICAL EXAMINATION BP 138/64 | Pulse 61 | Temp 36.8 ?C (98.3 ?F) | Resp 18 | Ht 1.676 m (5' 6") | Wt 98.9 kg (218 lb) | SpO2 99% | BMI 35.19 kg/m? General: Well developed HEENT: Normocephalic, atraumatic Neck: No apparent JVD Lungs: Clear to auscultation bilaterally Cardio: Distinct S1 and S2, RRR, No murmurs. Abdomen: Non-distended Extremities: pedal edema on the left side. Right leg was wrapped d/t wound on the right chin . Skin: No rashes. Neuro: No grossly focal motor deficit. Echo: 06/03/2024 Left Ventricle Left ventricle is mildly dilated. Normal wall thickness. Septal flattening in diastole and systole consistent with right ventricular volume and pressure overload. Normal wall motion. Low normal systolic function with a visually estimated EF of 50 - 55%. There is pseudonormal diastolic dysfunction. Right Ventricle Right ventricle is mildly dilated. Mildly reduced systolic function. Left Atrium Left atrium is mildly dilated. Right Atrium Right atrium size is normal. IVC/SVC IVC diameter is greater than 21 mm and decreases less than 50% during inspiration; therefore the estimated right atrial pressure is elevated (~15 mmHg). Mitral Valve Mild mitral annular calcification. Trace transvalvular regurgitation. Tricuspid Valve Tricuspid valve structure is normal. Mild transvalvular regurgitation. Right ventricular systolic pressure is greater than 60 mmHg. Aortic Valve Aortic valve structure is normal. Pulmonic Valve Valve structure is normal. Mild transvalvular regurgitation. Ascending Aorta Normal sized aorta. Pericardium The pericardium is normal. No pericardial effusion. RHC 07/23/2024: Findings: RA:mean 27 mm Hg RV:91/7mm Hg PA:93/31 mean 52 mm Hg PCWP: 21 mm Hg RASAO2:54 PASAO2:56 CO: 6.4(T) 5.6 (F) CI: 3.1 (T) 2.7 (F) PVR 383 TPmm Hg Impression Severe PAH-Suspect Primary PAH Intake/Output Summary (Last 24 hours) at 07/24/2024 1334 Last data filed at 07/24/2024 0500 Gross per 24 hour Intake 600 ml Output 1400 ml Net -800 ml ASSESSMENT AND PLAN 1. Chronic diastolic heart failure with preserved ejection fraction 50-55%, NYHA class III, stage C 2. Severe primary pulmonary arterial HTN 3. Obstructive sleep apnea - Symptoms primarily of exertional SOB - Slightly overloaded on physical exam - Likely exacerbated by untreated ROSALIO Plan: - Diuretic: Continue with IV lasix 40 mg BID for now - MRA: Continue aldactone 25 mg daily - Continue Jardiance 10 mg daily - 6-minute walk test to assess the need for home O2 therapy - Follow-up with pulm/sleep clinic after DC for other options other than mask (surgery or inspire placement) as patient can not tolerate the CPAP mask - Daily BMP + Mag - replete to keep K > 4 and Mag > 2 - 2 L fluid restriction, cardiac diet (2 g sodium restriction), accurate I/O - Daily weights 4. Hypertension Well controlled Monitor BP and titrate BP meds as needed. 5. Hyperthyroidism Uncontrolled Decreased TSH and elevated Free T4 On methimazole and propranolol Will obtain endocrinology consult Discussed A&P with heart failure faculty Dr. Kaye. Heart Failure team will continue to follow. Please reach out to HF fellow for any questions or concerns. Patito Polanco MD PGY4 Advanced Heart Failure Fellow [facility] Heart Failure, Division of Cardiovascular Medicine I spent a total of 30 minutes reviewing the chart and test results, obtaining the history, performing the exam and MDM along with placing orders, coordinating care, charting, and speaking with the patient/family. T DRYER Associated attestation - Aman Kaye MD - 07/24/2024 9:23 PM FRUIT DRYER Patient seen, examined and discussed along with Dr Polanco. I agree with his findings, assessment and plan which we formulated together Patient admitted from lab director post RHC for severe pulmonary HTN History obtained from patient who reports worsening SOB/STEPHENS over past month or so. Reports has sleep apnea but intolerant to CPAP She feels like her problems are related to her thyroid Chart reviewed, labs reviewed, recent testing reviewed Worsening hyperthyroidism over time despite treatment Severe pulmonary HTN WHO class 3 secondary to untreated ROSALIO: discussed with patient need to treat ROSALIO to prevent progression of disease Stevo calculated and is around 2 Plan: IV diuresis 6 min walk to assess for home oxygen needs Consult endocrinology Once DC can follow up with Dr Dodd OR Dr Treva Hanna OR Dr Carlos Dunn for her pulmonary HTN whoever has sooner clinic opening. ADVANCED HEART FAILURE & TRANSPLANT CARDIOLOGY [facility] 2024-07-24 11:47:09 Associated Order(s): CONSULT ENDOCRINOLOGY Endocrinology Consultation Note Consultation requested by: Service: IM Reason for Consultation: Diabetes Date of Service: 07/24/24 HPI Patient is a 53 year old female who was admitted on 07/23/2024 for elective RHC. PMH of hyperthyroidism, DM2, and Vitamin D deficiency. Patient was diagnosed with hyperthyroidism about 6 months ago. Patient's last HgbA1C was Last Two A1C Results ([facility]/, [facility], [place]) Recent Labs 08/08/23 1600 12/20/23 1416 05/08/24 1011 HGBA1C -- 6.7* -- [id number] 7.0* -- 5.5 Patient's home regimen consists of methimazole 20mg TID and metformin. Patients blood sugars at home average controlled. Patient has a glucometer. Patient denies hypoglycemia. Patient does not diet or exercise. Patient has complications of fatigue, weight loss Patient denies history of diabetic infections. Patient denies steroid therapy. PAST MEDICAL HISTORY Past Medical History: Diagnosis Date Abnormal uterine bleeding 02/19/2021 Endometrial cancer Hypertension Iron deficiency anemia Renal insufficiency under care with nephrology Thyroid nodule Type 2 diabetes mellitus Uterine cancer Vitamin D deficiency Past Surgical History: Procedure Laterality Date COLONOSCOPY N/A 06/08/2022 Surgeon: Ely Hess MD; Location: [facility] OR LOCATION COLONOSCOPY WITH CONTROL BLEEDING (SHX) N/A 03/02/2023 Surgeon: Tracy Grijalva MD; Location: [facility]ATION CYSTOSCOPY N/A 06/10/2021 Surgeon: Scott Russell MD; Location: [facility] DEBRIDEMENT PERINEUM (SHX) Right 11/29/2022 Surgeon: Ayala Collins MD; Location: [facility]ATION DEBRIDEMENT PERINEUM (SHX) N/A 12/02/2022 Surgeon: Sandra Dave MD; Location: [facility] LOCATION FLEXIBLE SIGMOIDOSCOPY (SHX) N/A 03/02/2023 Surgeon: Tracy Grijalva MD; Location: [facility] OR LOCATION INCISION AND DRAINAGE BUTTOCK (SHX) Right 11/29/2022 Surgeon: Ayala Collins MD; Location: [facility] LOCATION INTRACAVITARY BRACHYTHERAPY (SHX) N/A 04/22/2021 Surgeon: Kalina Sanchez MD; Location: [facility] Location INTRACAVITARY BRACHYTHERAPY (SHX) N/A 04/29/2021 Surgeon: Kalina Sanchez MD; Location: [facility] Location LAPAROSCOPIC ROBOTIC ASSISTED SALPINGO-OOPHORECTOMY Bilateral 06/10/2021 Surgeon: Scott Russell MD; Location: [facility] Location LAPAROSCOPIC ROBOTIC ASSISTED VAGINAL HYSTERECTOMY N/A 06/10/2021 Surgeon: Scott Russell MD; Location: [facility] MASS EXCISION Right 07/30/2022 Surgeon: Dudley Waddell MD; Location: [facility]ATION WOUND DEBRIDEMENT N/A 12/01/2022 Surgeon: Maggie Dumont MD; Location: [facility] LOCATION Family History Family history unknown: Yes ALLERGIES Iodinated contrast media and Adhesive tape-silicones REVIEW OF SYSTEMS General: - fever, - chills, - weight change, - fatigue Skin: - rash, - lesion HEENT: - headache, - change in hearing, - change in vision, - nasal discharge, - sore throat Neck: - difficulty swallowing, - mass Resp: - cough, - shortness of breath, - dyspnea on exertion Cardio: - chest pain, - palpitations, - syncope GI: - abdominal pain, - nausea, - vomiting, - diarrhea, - constipation : - dysuria, - hematuria Endo: - heat intolerance, - cold intolerance, - polyuria, - polydipsia Neuro: - numbness, - tingling, - weakness Psych: - anxiety, - depression, - psychiatric disorder PHYSICAL EXAM Temp: [36.5 ?C (97.7 ?F)-37.1 ?C (98.8 ?F)] Heart Rate (monitor): [37-71] Pulse: [47-72] Resp: [13-25] BP: (96-149)/(43-77) MAP (mmHg): [69-101] Body mass index is 35.19 kg/m?. General: alert, oriented times three, obese HEENT: normocephalic atraumatic, extraocular movements intact Neck: supple, no lymphadenopathy, no thyromegaly Lungs: clear to auscultation bilaterally Cardio: Regular rate and rhythm Abdomen: soft; non-tender; non-distended Extremities: no clubbing, cyanosis, or edema Skin: no rashes Neuro: no focal deficits, alert and oriented x 3 LABORATORY LABS: CBC BMP LFT'S WBC x10 3 (/CMM) Date Value 12/11/2003 8.0 WBC (10*3/?L) Date Value 07/20/2024 6.18 NA Date Value 07/20/2024 140 mmol/L 04/01/2004 139 MMOL/L CHOL Date Value 12/20/2023 122 mg/dL 04/01/2004 172 MG/DL LDL CHOL Date Value 12/20/2023 70 mg/dL 04/01/2004 101 MG/DL HDL CHOL (MG/DL) Date Value 04/01/2004 40 (L) HDL (mg/dL) Date Value 12/20/2023 36 (L) TRIG Date Value 12/20/2023 80 mg/dL 04/01/2004 155 MG/DL PLT x10 3 (/CMM) Date Value 12/11/2003 479 (H) PLT (10*3/?L) Date Value 07/20/2024 255 K Date Value 07/20/2024 4.4 mmol/L 04/01/2004 4.3 MMOL/L AST(SGOT) (U/L) Date Value 06/29/2024 22 04/01/2004 22 ALT(SGPT) (U/L) Date Value 04/01/2004 29 ALTv (U/L) Date Value 06/29/2024 12 ALK PHOS (U/L) Date Value 06/29/2024 225 (H) 04/01/2004 77 HGB Date Value 07/20/2024 9.2 g/dL (L) 12/11/2003 12.2 G/DL CALCIUM Date Value 07/20/2024 9.3 mg/dL 04/01/2004 9.1 MG/DL HCT (%) Date Value 07/20/2024 30.4 (L) 12/11/2003 37.6 CL Date Value 07/20/2024 105 mmol/L 04/01/2004 104 MMOL/L POCT HBA1C (%) Date Value 05/08/2024 5.5 08/08/2023 7.0 (A) HGB A1C (%) Date Value 12/20/2023 6.7 (H) BUN Date Value 07/20/2024 16 mg/dL 04/01/2004 10 MG/DL CREATININE Date Value 07/20/2024 0.83 mg/dL 04/01/2004 0.67 MG/DL (L) GLUCOSE Date Value 07/20/2024 108 mg/dL 04/01/2004 74 MG/DL CO2 TOTAL Date Value 07/20/2024 27 mmol/L 04/01/2004 24 MMOL/L MEDICATIONS Hospital Medications: Current Facility-Administered Medications Medication Dose Route Frequency Last Rate Last Admin albuterol (PROVENTIL) 2.5 mg /3 mL (0.083 %) nebulizer solution 2.5 mg 2.5 mg Inhalation QID empagliflozin (JARDIANCE) tablet 10 mg 10 mg Oral DAILY 10 mg at 07/24/24 0933 furosemide (LASIX) injection 40 mg 40 mg Slow IV Push QAM+PM ipratropium (ATROVENT) 0.02 % nebulizer solution 0.5 mg 0.5 mg Inhalation Q4HPRN acetaminophen (TYLENOL) tablet 650 mg 650 mg Oral Q6HPRN 650 mg at 07/24/24 0923 dextrose 50 % in water (D50W) injection 25 mL 25 mL Slow IV Push PRN docusate (COLACE) capsule 100 mg 100 mg Oral DAILY enoxaparin (LOVENOX) injection 40 mg 40 mg Subcutaneous DAILY 40 mg at 07/24/24 0917 foLIC acid (FOLATE) tablet 1 mg 1 mg Oral DAILY 1 mg at 07/24/24 0916 gabapentin (NEURONTIN) capsule 300 mg 300 mg Oral TID 300 mg at 07/24/24 0916 glucagon HCL injection 1 mg 1 mg Intramuscular PRN HYDROcodone-acetaminophen (NORCO 5) tablet 1 tablet 1 tablet Oral Q6HPRN 1 tablet at 07/23/24 1637 loperamide (IMODIUM A-D) capsule 2 mg 2 mg Oral Q6HPRN 2 mg at 07/23/24 0824 methIMAzole (TAPAZOLE) tablet 20 mg 20 mg Oral Q8H 20 mg at 07/24/24 0545 morphine (2 mg/mL) injection 2 mg 2 mg Slow IV Push Q4HPRN 2 mg at 07/23/24 2311 ondansetron (ZOFRAN (PF)) injection 4 mg 4 mg Slow IV Push Q6HPRN 4 mg at 07/24/24 0613 pantoprazole (PROTONIX) EC tablet 40 mg 40 mg Oral DAILY 40 mg at 07/24/24 0923 propranoloL (INDERAL) tablet 20 mg 20 mg Oral BID 20 mg at 07/24/24 0917 sennosides-docusate sodium (SENOKOT-S) 8.6-50 mg per tablet 1 tablet 1 tablet Oral DAILY Sliding Scale Insulin - Lispro (HumaLOG) Subcutaneous Q6H spironolactone (ALDACTONE) tablet 25 mg 25 mg Oral DAILY 25 mg at 07/24/24 0916 vitamin B-12 (CYANOCOBALAMIN) tablet 1,000 mcg 1,000 mcg Oral DAILY 1,000 mcg at 07/24/24 0917 ASSESSMENT and PLAN PAH HTN Hyperthyroidism Diabetes Type 2, controlled -A1c (UTMB/LC, POCT, [facility]) Recent Labs 08/08/23 1600 12/20/23 1416 05/08/24 1011 HGBA1C -- 6.7* -- [id number] 7.0* -- 5.5 -Complications of weight loss and fatigue -Home regimen: methimazole 20mg TID, propranolol -Plan for total thyroidectomy on 08/10. Plan: -Start methimazole 30mg TID -Start propranolol 20mg BID -Start LDSSI -c/w jardiance 10mg QD -Goal inpatient glucose range 140-180 per ADA guidelines -Diabetes Education -Dietary Education -Patient requires outpatient follow up HTN - on spironolactone, lasix Naila Jimenez DO Endocrinology EDUCATION Counseled on this visit about: Importance of adhering to the medical regimen outlined above [facility] - Health History and Physical Notes Date/Time Note Provider Source 2024-07-23 14:27:03 [facility] MEDICINE HISTORY & PHYSICAL PCP: PCP Date of Service: 07/23/2024 CHIEF COMPLAINT: Elective right heart cath History of Present Illness 53 yo female with PMH of hypertension, DM type 2, iron deficiency anemia, uterine cancer, thyroid nodule with hyperthyroid, vitamin D deficiency admitted to the hospital after an elective right cardiac cath. Needs to be seen by heart failure team. RHC showed primary pulmonary arterial hypertension. Past Medical History: Diagnosis Date Abnormal uterine bleeding 02/19/2021 Endometrial cancer Hypertension Iron deficiency anemia Renal insufficiency under care with nephrology Thyroid nodule Type 2 diabetes mellitus Uterine cancer Vitamin D deficiency Past Surgical History: Procedure Laterality Date COLONOSCOPY N/A 06/08/2022 Surgeon: Ely Hess MD; Location: [facility] OR LOCATION COLONOSCOPY WITH CONTROL BLEEDING (SHX) N/A 03/02/2023 Surgeon: Tracy Grijalva MD; Location: [facility] OR LOCATION CYSTOSCOPY N/A 06/10/2021 Surgeon: Scott Russell MD; Location: [facility] DEBRIDEMENT PERINEUM (SHX) Right 11/29/2022 Surgeon: Ayala Collins MD; Location: [facility] LOCATION DEBRIDEMENT PERINEUM (SHX) N/A 12/02/2022 Surgeon: Sandra Dave MD; Location: [facility] OR LOCATION FLEXIBLE SIGMOIDOSCOPY (SHX) N/A 03/02/2023 Surgeon: Tracy Grijalva MD; Location: [facility]ATION INCISION AND DRAINAGE BUTTOCK (SHX) Right 11/29/2022 Surgeon: Ayala Collins MD; Location: [facility] LOCATION INTRACAVITARY BRACHYTHERAPY (SHX) N/A 04/22/2021 Surgeon: Kalina Sanchez MD; Location: [facility] Location INTRACAVITARY BRACHYTHERAPY (SHX) N/A 04/29/2021 Surgeon: Kalina Sanchez MD; Location: [facility] Location LAPAROSCOPIC ROBOTIC ASSISTED SALPINGO-OOPHORECTOMY Bilateral 06/10/2021 Surgeon: Scott Russell MD; Location: [facility] Location LAPAROSCOPIC ROBOTIC ASSISTED VAGINAL HYSTERECTOMY N/A 06/10/2021 Surgeon: Scott Russell MD; Location: [facility] Location MASS EXCISION Right 07/30/2022 Surgeon: Dudley Waddell MD; Location: [facility] WOUND DEBRIDEMENT N/A 12/01/2022 Surgeon: Maggie Dumont MD; Location: [facility]ATION Allergies Allergen Reactions Iodinated Contrast Media Other - See comments Fields skin Adhesive Tape-Silicones Other - See comments Skin peels with plastic tape @HMED@ Social History Socioeconomic History Marital status: Single Tobacco Use Smoking status: Never Smokeless tobacco: Never Substance and Sexual Activity Alcohol use: Never Drug use: Never Social Determinants of Health Financial Resource Strain: Low Risk (11/30/2022) Overall Financial Resource Strain (CARDIA) Difficulty of Paying Living Expenses: Not very hard Food Insecurity: No Food Insecurity (11/30/2022) Hunger Vital Sign Worried About Running Out of Food in the Last Year: Never true Ran Out of Food in the Last Year: Never true Transportation Needs: No Transportation Needs (11/30/2022) PRAPARE - Transportation Lack of Transportation (Medical): No Lack of Transportation (Non-Medical): No Physical Activity: Inactive (11/30/2022) Exercise Vital Sign Days of Exercise per Week: 0 days Minutes of Exercise per Session: 0 min Social Connections: Unknown (11/30/2022) Social Connection and Isolation Panel [NHANES] Frequency of Communication with Friends and Family: More than three times a week Marital Status: Never Family History Family history unknown: Yes REVIEW OF SYSTEMS (-)=Negative,(+)=Positive General: negative Skin: negative HEENT: negative Neck: negative Heme: negative Resp: (+) shortness of breath, (+) dyspnea on exertion Cardio: negative GI: negative : negative Endo: negative Neuro: negative Back: negative MARCUS: negative Psych: negative PHYSICAL EXAMINATION Vitals: 07/23/24 1400 BP: 105/54 Pulse: 61 Resp: Temp: SpO2: 92% Body mass index is 35.19 kg/m?. General: Awake, alert, oriented x3 Head: Normocephalic, atraumatic Eyes: PERRLA, EOMI Oropharynx: Clear, moist oral mucosa Neck: Supple, no lymphadenopathy Cardiovascular: RRR, no murmurs, gallops, rubs Lung: CTA bilaterally Abdomen: Soft, nontender, nondistended, normoactive bowel sounds x4 Skin: Clean/dry/intact Neurologic: Nonfocal Extremities: No cyanosis/clubbing/edema LABS: No results found for this or any previous visit (from the past 24 hour(s)). RADIOLOGY: No final results containing an impression from the past 48 hours were found. EKG: no ischemia CHART REVIEW: @BASELINE@ ASSESSMENT/PLAN Hilda Colón is a 53 year old female with PMHx of heart failure, admitted to the hospital with:post cath evaluation by heart failure team Severe primary arterial hypertension Hyperthyroid with thyroid nodule DM type 2 Hypertension Vitamin D deficiency Consult heart failure team Home meds FSBG qac and hs Sliding scale insulin @COMFORT@ Prophylaxis: DVT: enoxaparin Stress Ulcer: no indication for prophylaxis Dr. Nav Hernandez T DRYER IM-INTERNAL MEDICINE STAFF [facility] 2024-07-23 09:04:35 Cardiac Cath Pre-Procedure Sedation Evaluation See H&P for medical history and current medications. Allergies were reviewed. Indication: pulmonary hypertension NPO Status Solids: >6 hours Clear liquids: >2 hours History History of anesthesia/sedation complications: No History of difficult airway: No History of neck problems, craniofacial abnormalities, head/neck surgery: No Increased risk for airway obstruction, sleep apnea, morbid obesity: No Focused Physical Exam Heart: documented in H&P Normal Lung: documented in H&P Normal Airway Mallampati: III Mouth opening: Normal Range of motion neck: Normal Dentition: Normal Assessment: ASA III Plan: Moderate sedation The risks, benefits, and treatment options of sedation were discussed with the patient/guardian and they desire to proceed. The consent form was completed and signed. Case discussed with Dr.Rangasetty Sandra Loco Mai, DO Director Of Strategic Communications, PGY-4 T DRYER Associated attestation - Carmen Mar MD - 07/23/2024 9:41 AM FRUIT DRYER After discussion with I reviewed pt's history medical record and examined this patient. I agree with resident's note as written. Carmen Mar MD, [facility] associate professor of biology antique furniture restorer CARDIOVASCULAR DISEASE [facility] Notes Date/Time Note Provider Source 2024-07-25 17:03:21 Pt verbalized understanding of discharge instruction and education. IV was taken out. Pressure applied and tip intact. Pt's wound was dressed and dated. Pt was accompanied by tech and her niece down stairs. Pt left with her new home oxygen tank. Pt took wound dressing supplies and her personal items home. AR Oakley RN [facility] 2024-07-25 08:00:00 Problem: Falls, Risk of Goal: Absence of falls Outcome: Progressing as expected Problem: Pain Goal: Control of pain at or below patient's documented comfort goal Outcome: Progressing as expected Goal: Reduction in pain sensation Outcome: Progressing as expected Problem: Discharge Planning Goal: Adequate for discharge Outcome: Progressing as expected Goal: Effective communication Outcome: Progressing as expected T DRYER Rashmi Kelley RN [facility] 2024-07-24 20:59:19 Problem: Falls, Risk of Goal: Absence of falls Outcome: Progressing as expected Problem: Pain Goal: Control of pain at or below patient's documented comfort goal Outcome: Progressing as expected Goal: Reduction in pain sensation Outcome: Progressing as expected Problem: Discharge Planning Goal: Adequate for discharge Outcome: Progressing as expected Goal: Effective communication Outcome: Progressing as expected AR Cortez RN [facility] 2024-07-24 13:47:24 O2 Saturation at REST on Room Air = 92% O2 Saturation at REST on 2 LPM of Oxygen = 95% If room air Saturations on Room Air are 88% or below STOP as no further testing is needed EXERTION TEST O2 Saturation at Rest on Room Air = 92% O2 Saturation being Exerted on Room Air = 86% O2 Saturation being Exerted on 2 LPM of Oxygen = 96% AR Bryant RN [facility] 2024-07-24 11:04:47 Problem: Falls, Risk of Goal: Absence of falls Outcome: Progressing as expected Problem: Pain Goal: Control of pain at or below patient's documented comfort goal Outcome: Progressing as expected Goal: Reduction in pain sensation Outcome: Progressing as expected Problem: Discharge Planning Goal: Adequate for discharge Outcome: Progressing as expected Goal: Effective communication Outcome: Progressing as expected [facility] 2024-07-24 08:29:41 Fall risk 60 Mittal Assessment Patient is alert, oriented x4 and follows commands. Bed alarm on,, bed at lowest position, door open, red socks on, call light within reach patient educated on using call light for assistance. No tele sitter needed upon assessment. [facility] 2024-07-23 20:00:00 Problem: Falls, Risk of Goal: Absence of falls Outcome: Progressing as expected Problem: Pain Goal: Control of pain at or below patient's documented comfort goal Outcome: Progressing as expected Goal: Reduction in pain sensation Outcome: Progressing as expected Problem: Discharge Planning Goal: Adequate for discharge Outcome: Progressing as expected Goal: Effective communication Outcome: Progressing as expected [facility] 2024-07-23 16:53:51 Problem: Falls, Risk of Goal: Absence of falls Outcome: Progressing as expected Problem: Pain Goal: Control of pain at or below patient's documented comfort goal Outcome: Progressing as expected Goal: Reduction in pain sensation Outcome: Progressing as expected Problem: Discharge Planning Goal: Adequate for discharge Outcome: Progressing as expected Goal: Effective communication Outcome: Progressing as expected [facility] 2024-07-23 11:55:31 ttending: Dr. Mar Fellow: Anaesthesia; topical 1% Lidocaine and IV Versed/IV Fentanyl Access:RIJV Procedure details: The indications, risks, benefits and alternatives of the above procedure(s) was/were discussed in detail with thepatient, who evidenced complete understanding. Written, witnessed and informed consent was obtained from thepatient and placed on the chart. The attending physician was present throughout the procedure, providing the highest level of supervision. The patient was brought to the procedural area in the fasting state. This case was performed in the cardiac catheterization lab. The patient procedure site was prepped and draped in the standard fashion. After determination of site access using anatomical landmarks, confirmed by fluoroscopy /USG 7F Sheath was inserted into the Right Femoral Vein by Seldinger technique. Next Right heart cath was performed as follows.We floated 7F swan yanelis catheter to the right sided chambers of the heart using fluoroscopy and measured saturations, pressures and determined cardiac output using thermodilution and sharmin's method. At the end we removed the catheter and sheath and manual compression applied. Pt tolerated the procedure well. She was transferred to the recovery in stable fashion. Findings: RA:mean 27 mm Hg RV:91/7mm Hg PA:93/31 mean 52 mm Hg PCWP: 21 mm Hg RASAO2:54 PASAO2:56 CO: 6.4(T) 5.6 (F) CI: 3.1 (T) 2.7 (F) PVR 383 TPmm Hg Sheath removed and manual compression/ applied No complications observed Impression Severe PAH-Suspect Primary PAH Plans Admit and give IV lasix for aggressive diuresis Refer to PAH specialist I was present trough the entire procedure with our fellow Dr.Ahmad Carmen Mar MD, [facility] associate professor of biology antique furniture restorer T DRYER IM-INTERVENTIONAL CARDIOLOGY STAFF [facility] 2024-07-20 15:30:00 Images from the original note were not included. Venipuncture collection performed by clean technique on the left anticubitus. Total of 1 attempts were made. Slight pressure and a bandage/dressing were applied to the site(s). The patient experienced no complications. The following specimens were processed according to instructions and sent to [facility] laboratories per lab order on 07/20/2024 : LT BLUE 1 SST 1 RED LAV 1 PPT DK GREEN (LiHep) DK GREEN (SodH) ABEL DK BLUE (K2) DK BLUE (S) ACD Blood Culture NIPT/NTD T DRYER [facility] 2024-07-18 08:08:50 Called:[phone] Spoke with Mrs. Colón about results of Biopsy. I explained that Dr. Garcia has Not Read them yet. When he does I Will Call You. Mrs. Stevens voiced her understanding and thanks for calling. T DRYER Velasquez Abbasi LVN [facility] 2024-07-13 17:29:35 Hilda Colón is a 53 year old female Pt is calling to schedule an appt with Rachel Medeiros Please advise at [phone] (home) T DRYER Ricco Arceo [facility] 2024-07-12 15:33:52 Spoke with patient. I had called to offer a different appointment time but it is no longer available. Please close encounter. T DRYER Sima Carrera [facility] 2024-07-12 13:48:59 Pt request a call back with the biopsy results. Please Advise. T DRYER Winter Rivera [facility] 2024-07-12 13:42:56 Yes, we should made a decision right after RHC. [facility] 2024-07-12 13:40:46 Surgery tentatively scheduled for 08/10. Do you think that will be enough time after RHC to know if we can proceed? I believe her permaculture designer wanted thyroidectomy done on a more urgent basis given her uncontrolled Graves [facility] 2024-07-11 16:58:49 Getting right heart cath on 07/23/2024. If emergent, can proceed with moderate cardiac risk. If elective, please wait. [facility] 2024-07-11 15:43:44 This patient was seen in our clinic today and is needing clearance prior to having her thyroid removed. Please advise cardiac clearance. T DRYER Cherry Graff RN [facility] 2024-07-11 12:43:39 Lab orders placed. T DRYER [facility] 2024-07-11 10:45:48 Called pt to schedule procedure. Pt agreed to come in on 07/23/24. Pt is scheduled for labs on 07/20/24. Pt is aware a nurse will call a week before with instructions and a sprinkler fitter helper will call the day before with an arrival time. Asked for lab orders to be place. AR Vegas [facility] 2024-07-11 08:49:51 Patient calling again requesting to speak with Sima. Please advise. AR Artis [facility] 2024-07-10 14:06:26 Hilda Colón is a 53 year old female calling stating she received a call to reach out to clinic. [phone] AR Castillo [facility] 2024-07-09 14:12:32 Contacted [facility] to check on DME set up status. Rep states they have attempted to reach for in office appt. Unsuccessful. They will re attempt. And let us know. Will sent [employer] - [employer]ithart msg too. T DRYER [facility] 2024-07-05 11:36:03 CD Diagnostics form, detailed report and Facesheet faxed to [employer] at [phone] with fax confirmation received. [facility] 2024-07-04 14:52:52 Called patient confirming name and date of . Discussed lab results with patient. She is chronically anemic and not currently taking iron supplementation due to reportedly elevated ferritin. Will refer to hematology given anemia with history of radiation therapy completed 02/2022. Per colorectal surgery note, will try to expedite EGD and add sigmoidoscopy. Start hydrocostisone suppository. Will order RUQ US due to elevated alkaline phopshatase. [facility] 2024-07-04 10:20:14 Rescheduled pt and left voicemail with new jhoana info. AR Ruiz [facility] 2024-07-03 16:19:22 Please review, complete, and sign if appropriate. [facility] 2024-07-03 16:09:57 Patient is scheduled with Cardiology on 07/09 to see and are needing a referral authorized by the insurance due to HMO policy. Please advise. [facility] Danae Sloan [facility] 2024-07-03 16:01:59 Images from the original note were not included. Referral has been submitted Joao Badillo Cynthia, FNP Cc: Naomi Garzon [facility] Med Nurse; Naomi Garzon [place], The patient is scheduled with [facility] Otolaryngology clinic. The authorization team is unable to move forward with processing the referral. The patient's HMO insurance guidelines requires for the designated primary care provider to refer the patient to an in-network doctor or specialist. Please submit a referral for diagnosis, E05.90 (ICD-10-CM) - Hyperthyroidism . Appointment date:07/11/24 Last PCP office visit:06/20/24 Thank you, [facility] Referral Coordination Center [facility] 2024-07-02 12:44:02 Hilda Colón is a 53 year old female Pt needs to reschedule her appt that's on 07/04. She has a scheduling conflict. Please call patient to assist. [phone] (home) [facility] HOSPITAL William Roblero [facility] 2024-06-29 13:45:00 Images from the original note were not included. Venipuncture collection performed by clean technique on the left anticubitus. Total of 1 attempts were made. Slight pressure and a bandage/dressing were applied to the site(s). The patient experienced no complications. The following specimens were processed according to instructions and sent to [facility] laboratories per lab order on 06/29/2024 : LT BLUE SST 2 RED LAV 1 PPT DK GREEN (LiHep) DK GREEN (SodH) ABEL DK BLUE (K2) DK BLUE (S) ACD Blood Culture NIPT/NTD [facility] 2024-06-29 11:30:00 Addended by: KATARZYNA VALLADARES on: 07/01/2024 07:48 PM Modules accepted: Orders [facility] 2024-06-28 10:04:13 Referral placed [facility] 2024-06-26 14:14:44 Please review, complete, and sign if appropriate. [facility] 2024-06-26 14:11:17 Images from the original note were not included. Joao Badillo Cynthia, FNP Cc: Naomi Garzon [facility] Med Nurse; Naomi Garzon Pss Melani, The patient is scheduled with [facility] OBGYN clinic. The authorization team is unable to move forward with processing the referral. The patient's O insurance guidelines requires for the designated primary care provider to refer the patient to an in-network doctor or specialist. Please submit a referral for diagnosis, K62.7 (ICD-10-CM) - Chronic radiation proctitis C54.1 (ICD-10-CM) - Endometrial cancer . Appointment date:07/04/24 Last PCP office visit:06/12/24 Thank you, [facility] Referral Coordination Center T [facility] 2024-06-20 14:40:00 Addended by: ZOHREH PATTON LVN on: 06/20/2024 03:49 PM Modules accepted: Orders [facility] 2024-06-20 14:40:00 Addended by: ART GARCIA on: 06/26/2024 08:00 AM Modules accepted: Orders T [facility] 2024-06-15 12:59:02 CD Diagnostics form, detailed report and Facesheet faxed to [employer] at [phone] with fax confirmation received. For wound care supplies. Patient called at [phone] no answer went to voice mail and left message that I faxed over a order for more supplies that should arrive with in 2- 5 days. Zohreh Patton LVN [facility] 2024-06-12 08:45:15 Hilda Colón is a 53 year old female calling to speak with nurse to have new wound supplies ordered. Please call patient at [phone] to discuss. Salvador Castillo [facility] 2024-06-11 09:17:50 Please review and advise. Do not see referral placed. Recent Visits Date Type Provider Dept 05/29/24 Office Visit Sima Lloyd, [facility] 03/28/24 Office Visit Jill Barrett PA [facility] 02/03/24 Office Visit AneJeanie valdiviaa, [facility] 12/20/23 Office Visit Anene, Sima, [facility] 08/08/23 Office Visit Anene, Sima, [facility] 06/14/23 Office Visit Anene, Sima, [facility] 05/09/23 Office Visit Anene, Sima, [facility] 04/05/23 Office Visit Anene Sima, [facility] 03/03/23 Office Visit Anene Sima, [facility] 01/13/23 Office Visit Anene, Sima, [facility] Showing recent visits within past 540 days with a meds authorizing provider and meeting all other requirements Future Appointments No visits were found meeting these conditions. Showing future appointments within next 150 days with a meds authorizing provider and meeting all other requirements Marizol Mason LVN [facility] 2024-06-08 16:25:21 Hilda Colón is a 53 year old female PT states she was told a Rheumatology referral would be placed due to her issues with her finger, states may be rheumatoid arthritis Please advise [phone] (home) Jazmin Donahue [facility] 2024-06-08 10:16:16 Images from the original note were not included. Krystal Olvera RN [facility] 2024-06-08 09:00:44 Last clinic note updated. Cleared for procedure. IM-PULMONARY DISEASE STAFF [facility] 2024-06-07 16:23:38 Patient was scheduled to come in for urgent GI clearance. Patient was recently seen 05.28.24. Pending lots pulmonary testing. Will await til at least tues test is done. Will call her back for OB sooner clearance appt. Chay/Maribel CATALAN aware. Will speak with Dr. Rodriguez tomorrow for more instructions. Pt is GREEK speaking when called to OB appt. Please. Deven Jacobo MA [facility] 2024-06-04 08:13:21 Please assist with getting insurance authorization for upcoming colorectal appointment. Ynes Hook [facility] 2024-05-31 15:15:00 Images from the original note were not included. Venipuncture collection performed by clean technique on the right anticubitus. Total of 1 attempts were made. Slight pressure and a bandage/dressing were applied to the site(s). The patient experienced no complications. The following specimens were processed according to instructions and sent to [facility] laboratories LT BLUE Lt Green SST 2 RED LAV PPT DK GREEN (L) DK GREEN (S)/// Fibrosure set BLUE,SST & LAV ABEL DK BLUE (K2) DK BLUE (S) ACD RST BLOOD CULTURE SET BLOOD CULTURE (AFB AND FUNGUS ) VERIFYNOW Monogram TYPENEX (LAV TOP) ARM BAND ON PATIENT Z plasma preservative tube (call lab for tube)ARUP Vasoactive Intestinal Peptide (call lab for tube)[facility]UP FEDEX ( NIPT) Thrombotic Risk Reflex Panel URINE 2 URINE CULTURE APTIMA URINE STOOL T [facility] 2024-05-29 12:15:00 Images from the original note were not included. Venipuncture collection performed by clean technique on the left anticubitus. Total of 1 attempts were made. Slight pressure and a bandage/dressing were applied to the site(s). The patient experienced no complications. The following specimens were processed according to instructions and sent to [facility] [employer] per lab order on 05/29/2024 : LT BLUE SST 1 RED LAV PPT DK GREEN (LiHep) DK GREEN (SodH) ABEL DK BLUE (K2) DK BLUE (S) ACD Blood Culture NIPT/NTD [facility] 2024-05-29 10:30:00 Addended by: NEREYDA LLOYD DNP-SIMA VASQUEZ on: 06/01/2024 01:16 PM Modules accepted: Orders T [facility] 2024-05-28 11:30:00 Patient presented with specimen for drop-off and was identified by and name. Collection information/ total volume were documented accordingly. The following specimens were sent to [facility] laboratories per lab order on 05/28/2024: 24 hour urine Random urine 1 Stool Swab Other [facility] 2024-05-24 14:30:00 Summary: Pt here for labs for Badalamenti, pt unable to void, pt will bring back another time. Images from the original note were not included. Venipuncture collection performed by clean technique on the right anticubitus. Total of 1 attempts were made. Slight pressure and a bandage/dressing were applied to the site(s). The patient experienced no complications. The following specimens were processed according to instructions and sent to [facility] laboratories per lab order on 05/24/2024: LT BLUE SST 2 RED LAV 1 PPT DK GREEN (LiHep) DK GREEN (SodH) ABEL DK BLUE (K2) DK BLUE (S) ACD Blood Culture NIPT/NTD [facility] 2024-05-23 08:45:41 Referral placed Shiela Flor RN [facility] 2024-05-22 16:42:28 Referral pending please complete and sign if appropriate T [facility] 2024-05-22 15:57:33 Chart reviewed. Labs ordered on 02/20/2024 for upcoming Nephrology appointment per guidelines. MyChart message and/or letter sent to patient as an appointment reminder. Bhavna Keller RN [facility] 2024-05-22 10:19:47 Patient is scheduled with Pulmonary to see for a follow up visit on 05/28 and is needing a referral authorized by the insurance. Please advise Danae Harmon Luther [facility] 2024-05-10 08:42:47 Referral placed. T [facility] 2024-05-10 07:51:33 Patient's insurance has changed and requires PCP referral. Please assist with placing Colorectal Referral for Dr. Tracy Grijalva, DX is Radiation Proctitis. Thank you. Darline Harmon To [facility] 2024-05-09 07:52:14 Refused pt should contact PCP for refill. Bhavna Keller RN [facility] 2024-05-08 11:30:00 Images from the original note were not included. Venipuncture collection performed by clean technique on the right anticubitus. Total of 1 attempts were made. Slight pressure and a bandage/dressing were applied to the site(s). The patient experienced no complications. The following specimens were processed according to instructions and sent to [facility] laboratories per lab order on 05/08/2024 : LT BLUE SST 1 RED LAV 1 PPT DK GREEN (LiHep) DK GREEN (SodH) ABEL DK BLUE (K2) DK BLUE (S) ACD Blood Culture NIPT/NTD T [facility] 2024-05-07 10:45:09 Patient has been scheduled Anton Tomlinson [facility] 2024-05-06 18:02:26 Please facilitate office visit [facility] 2024-05-04 16:43:00 Hlida Colón is a 53 year old female states she was advise by her equipment mechanic specialist to schedule follow up appt with PCP next week. She states she is only willing to see [facility] Prema. Please contact patient to assist with over book if possible [phone] Abe Kc [facility] 2024-04-26 14:05:55 Spk w/ patient she is already scheduled for a lab appt on 05/24 Asked pt if she wanted to come in sooner per the providers orders and she stated that she will do all her labs on 05/24 Please sign and close encounter Mariah Goodman [facility] 2024-04-26 08:54:50 Given patient's history of frequent bowel movements, I would like to order stool studies prior to follow-up. Please call and schedule lab with patient. Lamont Oden PA-C Department of Internal Medicine - Gastroenterology and Hepatology [facility] 2024-04-18 08:07:22 CD Diagnostics form, detailed report and Facesheet faxed to [employer] at [phone] with fax confirmation received. Zohreh Patton LVN [facility] 2024-04-10 10:55:20 Spoke with patient and informed her that she would have to be re-evaluated before antibiotics could be prescribed. Patient stated that she has an appointment on with wound care. I voiced understanding. Shiela Flor RN [facility] 2024-04-06 17:52:28 Refill is snot appropriate for antibiotics- unless clinically indicated on exam. T [facility] 2024-04-06 15:25:09 Please review, complete, and sign if appropriate. T [facility] 2024-04-06 15:20:26 Please review and sign if appropriate: Last office visit: 03/30/24 Next office visit: not scheduled Requested Prescriptions Pending Prescriptions Disp Refills doxycycline hyclate 100 mg capsule 14 capsule 0 Sig: Take 1 capsule by mouth in the morning and 1 capsule in the evening. Notes: Venous stasis ulcer of other part of lower leg limited to breakdown of skin with varicose veins, unspecified laterality - Primary PVD (peripheral vascular disease) T [facility] 2024-04-06 13:56:22 Hilda Colón is a 53 year old female Pt is calling needing a refill on her doxycycline hyclate 100 mg capsule the er doctor only wrote the prescription for 14 pills. Pt will be out by tomorrow. Pt doesn't see the wound doctor until next week on 04/13. Please advise. [phone](home) [facility] [address] [place] [address] Ivet Lopez [facility] 2024-04-06 11:18:21 Hilda Colón is a 53 year old female needs a referral for Sleep Pulmonary. Her Cardio provider referred her, but patient has HMO insurance. Please let patient know once referral has been placed. Thanks. Mariah Pierce [facility] 2024-03-28 15:08:33 Pt given printed and verbal discharge instructions regarding venous stasis ulcer of other part or lower leg limited to breakdown of skin with varciose veins, PVD peripheral vascular disease), diabetic mononeuropathy associated with diabetes mellitus, encouraged hydration, 3 Prescriptions provided Discussed antibiotic therapy and to take until all completed unless adverse reaction occurs - if occurs, discontinue medication and follow up with pcp/seek medical attention Pt verbalized understanding of instructions, pt awake alert oriented, resp reg unlabored, skin w/d, color appropriate for race, moves all ext well,pt encouraged to follow up with pcp Advised to seek medical attention for new/prolonged/worsening of symptoms, Symptoms improved. Awake, alert oriented, resp reg unlabored, skin w/d, pt leaving amb with steady gait, in no apparent distress, Mel Roe RN [facility] 2024-03-28 13:03:18 Patient states "last week I went [place] emergency room for a scratch on my leg and the skin fell off. I went to the doctor and she sent me here." Jules Weldon RN [facility] 2024-03-28 12:48:00 Associated Order(s): Wound Care Images from the original note were not included. [facility] Emergency Department Note Patient Name: Hilda Colón Date of : 1970 53 year old female Treatment Room: [facility] Primary Care Physician: Sima Lloyd Patient Escorted by: Family [5] Mode of Arrival: Personal means [1] EMS Treatment Prior to ED Arrival: Travel and Exposure Screening: Symptoms Does patient have any of these symptoms?: (not recorded) Exposure Screening Has patient had contact with someone with a communicable disease in the last month?: (not recorded) Diseases exposed to:: (not recorded) Is Patient ?: (not recorded) Exposure Date: (not recorded) Chief Complaint: Chief Complaint Patient presents with Wound History of Present Illness: History provided by: 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 Prior ED Treatment: Seen at another ED, treated with Doxycycline PO. Treatments since wound repair include oral antibiotics and regular soap and water washings. Fever duration: No fever. Wound drainage status: Yellow clear. There is no redness present. There is no swelling present. The pain has improved. Past Medical History/Immunizations: Past Medical History: Diagnosis Date Abnormal uterine bleeding 02/19/2021 Endometrial cancer Hypertension Iron deficiency anemia Renal insufficiency under care with nephrology Thyroid nodule Type 2 diabetes mellitus Uterine cancer Vitamin D deficiency Allergies: Allergies Allergen Reactions Adhesive Tape-Silicones Other - See comments Skin peels with plastic tape Past Social History: Tobacco Use Never smoked or used smokeless tobacco. Alcohol Use Never. Drug Use Never. Past Surgical History: Past Surgical History: Procedure Laterality Date COLONOSCOPY N/A 06/08/2022 Surgeon: Ely Hess MD; Location: [facility] COLONOSCOPY WITH CONTROL BLEEDING (SHX) N/A 03/02/2023 Surgeon: Tracy Grijalva MD; Location: [facility] OR LOCATION CYSTOSCOPY N/A 06/10/2021 Surgeon: Scott Russell MD; Location: [facility] DEBRIDEMENT PERINEUM (SHX) Right 11/29/2022 Surgeon: Ayala Collins MD; Location: [facility]ATION DEBRIDEMENT PERINEUM (SHX) N/A 12/02/2022 Surgeon: Sandra Dave MD; Location: [facility] OR LOCATION FLEXIBLE SIGMOIDOSCOPY (SHX) N/A 03/02/2023 Surgeon: Tracy Grijalva MD; [facility] INCISION AND DRAINAGE BUTTOCK (SHX) Right 11/29/2022 Surgeon: Ayala Collins MD; Location: [facility] OR LOCATION INTRACAVITARY BRACHYTHERAPY (SHX) N/A 04/22/2021 Surgeon: Kalina Sanchez MD; Location: [facility] INTRACAVITARY BRACHYTHERAPY (SHX) N/A 04/29/2021 Surgeon: Kalina Sanchez MD; Location: [facility] LAPAROSCOPIC ROBOTIC ASSISTED SALPINGO-OOPHORECTOMY Bilateral 06/10/2021 Surgeon: Scott Russell MD; Location: [facility] LAPAROSCOPIC ROBOTIC ASSISTED VAGINAL HYSTERECTOMY N/A 06/10/2021 Surgeon: Scott Russell MD; Location: [facility] MASS EXCISION Right 07/30/2022 Surgeon: Dudley Waddell MD; Location: [facility] WOUND DEBRIDEMENT N/A 12/01/2022 Surgeon: Maggie Dumont MD; Location: [facility] LOCATION Review of Systems: Review of Systems Constitutional: Negative for activity change, appetite change, chills, diaphoresis, fatigue and fever. HENT: Negative for congestion, ear discharge, ear pain, rhinorrhea, sore throat and trouble swallowing. Eyes: Negative for photophobia, pain, discharge and redness. Respiratory: Negative for cough, chest tightness, shortness of breath and wheezing. Cardiovascular: Negative for chest pain, palpitations and leg swelling. Gastrointestinal: Negative for abdominal distention, abdominal pain, blood in stool, constipation, nausea and vomiting. Genitourinary: Negative for dysuria, urgency, polyuria, frequency, hematuria and flank pain. Musculoskeletal: Negative for arthralgias, joint swelling, myalgias and neck stiffness. Skin: Negative for color change, rash and wound. Neurological: Negative for dizziness, seizures, syncope, facial asymmetry, weakness, light-headedness, numbness and headaches. Psychiatric/Behavioral: Negative for agitation, confusion, hallucinations and self-injury. The patient is not nervous/anxious. Hematological: Negative for adenopathy and cold intolerance. Does not bruise/bleed easily. Endocrine: Negative for cold intolerance, polydipsia and polyuria. Physical Exam: ED Triage Vitals [03/28/24 1304] Weight 101.2 kg (223 lb) Actual or estimated Height 1.676 m (5' 6") BP (!) 121/100 Pulse 86 Resp 18 Temp 37.2 ?C (99 ?F) Temp source Oral SpO2 99 % Measured on Room air Physical Exam Vitals and nursing note reviewed. Constitutional: General: She is awake. She is not in acute distress. Appearance: She is well-developed and well-groomed. She is obese. She is not ill-appearing, toxic-appearing or diaphoretic. HENT: Head: Normocephalic and atraumatic. Right Ear: External ear normal. Left Ear: External ear normal. Nose: Nose normal. Mouth/Throat: Pharynx: No oropharyngeal exudate. Eyes: General: No scleral icterus. Right eye: No discharge. Left eye: No discharge. Conjunctiva/sclera: Conjunctivae normal. Pupils: Pupils are equal, round, and reactive to light. Neck: Thyroid: No thyromegaly. Vascular: No JVD. Trachea: No tracheal deviation. Cardiovascular: Rate and Rhythm: Normal rate and regular rhythm. Heart sounds: Normal heart sounds. No murmur heard. No friction rub. No gallop. Pulmonary: Effort: Pulmonary effort is normal. No respiratory distress. Breath sounds: Normal breath sounds. No stridor. No wheezing or rales. Chest: Chest wall: No tenderness. Abdominal: General: Bowel sounds are normal. There is no distension. Palpations: Abdomen is soft. There is no mass. Tenderness: There is no abdominal tenderness. There is no guarding or rebound. Musculoskeletal: General: No tenderness or deformity. Normal range of motion. Cervical back: Normal range of motion and neck supple. Lymphadenopathy: Cervical: No cervical adenopathy. Skin: General: Skin is warm and dry. Coloration: Skin is not pale. Findings: No erythema or rash. Comments: Venous Stasis Ulcer in her inner lower RLE, no signs of necrosis or over infection, see pictures for additional details. Chronic Venous Stasis Changes in her lower legs. Neurological: Mental Status: She is alert and oriented to person, place, and time. Cranial Nerves: No cranial nerve deficit. Motor: No abnormal muscle tone. Coordination: Coordination normal. Deep Tendon Reflexes: Reflexes are normal and symmetric. Reflexes normal. Psychiatric: Behavior: Behavior normal. Behavior is cooperative. Thought Content: Thought content normal. Judgment: Judgment normal. MEDIA INFORMATION: Radiology: No orders to display Lab Results: Lab Results - No data to display EKG: If EKG completed, see Procedure Note. Orders and Treatments: Orders Placed This Encounter Procedures Wound Care Orders Placed This Encounter Medications doxycycline hyclate 100 mg capsule mupirocin 2 % ointment gabapentin (NEURONTIN) 100 mg capsule First Provider Eval: ED Events Date/Time Event User Comments 03/28/24 1308 Medical Screening Begins FAYE ESCALANTE MD -- 03/28/24 1308 First Provider Evaluation FAYE ESCALANTE MD -- ED COURSE Diagnosis/Impression as of 03/28/24 1441 Venous stasis ulcer of other part of lower leg limited to breakdown of skin with varicose veins, unspecified laterality PVD (peripheral vascular disease) Diabetic mononeuropathy associated with diabetes mellitus due to underlying condition Procedures: Wound Care Date/Time: 03/28/2024 2:35 PM Performed by: Faye Escalante MD Authorized by: Faye Escalante MD Consent: Consent obtained: Verbal Consent given by: Patient Risks, benefits, and alternatives were discussed: yes Risks discussed: Bleeding, infection, pain, incomplete drainage and poor cosmetic result Alternatives discussed: No treatment and referral [place] protocol: Procedure explained and questions answered to patient or proxy's satisfaction: yes Relevant documents present and verified: yes Test results available: yes Patient identity confirmed: Verbally with patient, hospital-assigned identification number and arm band Sedation: Sedation type: None Anesthesia: Anesthesia method: None Procedure details: Indications: open wounds Wound location: Leg Leg location: R lower leg Wound age (days): >14 Wound surface area (sq cm): 10 Debridement performed: No Infected skin BSA: No Infection, good granulation tissue. Skin layer closed with: Wound care performed: Wound washed and cleaned with NS and Chlorhexidine Soap. Dressing: Dressing applied: Xeroform 1x8, Unna's boot, Tegaderm 4x5, Telfa pad and Kerlix Wrapped with: Elastic bandage 4 inch and elastic bandage 3 inch Post-procedure details: Procedure completion: Tolerated well, no immediate complications MDM: Medical Decision Making Problems Addressed: Diabetic mononeuropathy associated with diabetes mellitus due to underlying condition: chronic illness or injury with exacerbation, progression, or side effects of treatment PVD (peripheral vascular disease): chronic illness or injury with exacerbation, progression, or side effects of treatment Venous stasis ulcer of other part of lower leg limited to breakdown of skin with varicose veins, unspecified laterality: chronic illness or injury with exacerbation, progression, or side effects of treatment Risk OTC drugs. Prescription drug management. Minor surgery with no identified risk factors. Flowsheet Documentation: Scoring Tools: No data recorded Disposition/Condition: ED Disposition ED Disposition Disch - Home Condition Stable Comment -- Discharge Medications: Patient's Medications START taking these medications DOXYCYCLINE HYCLATE 100 MG CAPSULE Take 1 capsule by mouth in the morning and 1 capsule in the evening. GABAPENTIN (NEURONTIN) 100 MG CAPSULE Take 1 capsule by mouth in the morning and 1 capsule at noon and 1 capsule in the evening. MUPIROCIN 2 % OINTMENT Apply to area(s) 3 (three) times daily. CONTINUE taking these medications which have NOT CHANGED CHOLECALCIFEROL, VITAMIN D3, (VITAMIN D3) 100 MCG (4,000 UNIT) CAP Take 1 capsule by mouth daily. FISH OIL/BORAGE/FLAX/OM3,6,9 1 (OMEGA 3-6-9 ORAL) Take 2 capsules by mouth daily. FOLIC ACID 1 MG TABLET Take 1 tablet by mouth in the morning. FUROSEMIDE 20 MG TABLET Take 1 tablet by mouth every morning and afternoon KCL 10 MEQ TABLET Take 1 tablet by mouth in the morning. METFORMIN 500 MG TABLET TAKE 2 TABLETS BY MOUTH TWICE DAILY IN THE MORNING AND IN THE EVENING WITH MEALS METHIMAZOLE 10 MG TABLET Take 1 tablet by mouth every 8 (eight) hours. ONDANSETRON 4 MG DISINTEGRATING TABLET Take 1 tablet by mouth every 8 (eight) hours as needed for Nausea and Vomiting (N/V). PROMETHAZINE 12.5 MG TABLET Take 1 tablet by mouth every 4 (four) hours as needed for Nausea and Vomiting (N/V). PROPRANOLOL 20 MG TABLET Take 1 tablet by mouth in the morning and 1 tablet in the evening. VITAMIN B-12 (VITAMIN B-12) 1,000 MCG TABLET Take 1 tablet by mouth daily. START taking Modified Medications as Prescribed No medications on file STOP taking these medications No medications on file Follow-up: Contact information for follow-up Sima Lloyd FNP Specialty: INSTRUCTIONAL COACH-FAMILY Relationship: PCP - General [facility] [address] [facility] [id number] Instructions: For wound re-check Electronically signed by: Faye Escalante MD 03/28/24 1442 [facility] 2024-03-27 10:42:01 JOHNNY 12/23/2023 NOV 05/25/2024 Continue metformin for your diabetes [facility] 2024-03-22 14:44:00 Pt has been scheduled Shayy Campbell [facility] 2024-03-21 16:05:10 Please schedule [facility] 2024-03-21 15:33:16 Hilda Colón is a 53 year old female is calling to get a sooner available appt for post hosp Arthur Murray [facility] 2024-03-08 16:33:16 Called to notify patient of ECHO results and recommendations. Patient verbalized understanding and states that Nephrology has her taking Furosemide 20mg BID to equal 40mg. KCL sent to pharmacy. Norman Stratton MD 03/02/2024 8:33 AM CDT Back to Top Echo shows normal LV systolic function with pulmonary hypertension and diastolic dysfunction. Recommend increasing Lasix to 40 mg qd with added KCl 10 mEq qd for lower extremity swelling. [facility] 2024-03-02 09:47:54 Called patient and scheduled appointment for TuesdayMarch 21 @ 1:00pm. Complete and please close. T Zuleika Cornell [facility] 2024-02-28 15:58:06 Images from the original note were not included. Notes: 12/23/23 Last Refilled: [facility] [address] [place] [address] Recent Visits Date Type Provider Dept 02/03/24 Office Visit Sima Lloyd, TIMBER SELECTOR [facility] 12/20/23 Office Visit AneJeanie valdiviaa, TIMBER SELECTOR [facility] 08/08/23 Office Visit AneJeanie valdiviaa, TIMBER SELECTOR [facility] 06/14/23 Office Visit AneneRoxieSima, TIMBER SELECTOR [facility] 05/09/23 Office Visit AneJeanie valdiviaa, TIMBER SELECTOR [facility] 04/05/23 Office Visit AneneJeaniea, TIMBER SELECTOR [facility] 03/03/23 Office Visit AneneJeaniea, TIMBER SELECTOR [facility] 01/13/23 Office Visit Jeanie Lloyda, TIMBER SELECTOR [facility] Showing recent visits within past 540 days with a meds authorizing provider and meeting all other requirements Future Appointments Date Type Provider Dept 06/04/24 Appointment Sima Lloyd, TIMBER SELECTOR [facility] Showing future appointments within next 150 days with a meds authorizing provider and meeting all other requirements propranoloL 20 mg tablet Possible duplicate: Hover to review recent actions on this medication Sig: Take 1 tablet by mouth in the morning and 1 tablet in the evening. Disp: 180 tablet Refills: 1 Start: 02/28/2024 Class: eRX For: Anxiety, generalized; Tremors of nervous system Last ordered: 2 months ago (12/23/2023) by Rick Rdz MD Cardiovascular: Beta Blockers Vujsix2602/28/2024 03:53 PM Protocol Details Valid encounter within last 12 months Heart rate within normal limits and completed in the last 12 months To be filled at: [facility] [address] [place] [address] [facility] 2024-02-27 17:40:44 Hilda Colón is a 53 year old female PT called regarding wanting to be seen by a magnetic locater and discuss about getting endoscopy scheduled. Pt stated that she wanted an appointment sooner than March. Please advise. Clifton Beatty [facility] 2024-02-24 15:16:15 You may add referral [facility] 2024-02-24 10:28:29 Please review and advise if okay to place referral. Recent Visits Date Type Provider Dept 02/03/24 Office Visit Sima Lloyd FNP [facility] 12/20/23 Office Visit Sima Lloyd FNP [facility] 08/08/23 Office Visit Sima Lloyd FNP [facility] 06/14/23 Office Visit Sima Lloyd FNP [facility] 05/09/23 Office Visit Sima Lloyd FNP [facility] 04/05/23 Office Visit Sima Lloyd FNP [facility] 03/03/23 Office Visit Sima Lloyd FNP [facility] 01/13/23 Office Visit Sima Lloyd FNP [facility] Showing recent visits within past 540 days with a meds authorizing provider and meeting all other requirements Future Appointments Date Type Provider Dept 06/04/24 Appointment MeenaRoxie valdiviathia, TIMBER SELECTOR [facility] Showing future appointments within next 150 days with a meds authorizing provider and meeting all other requirements Marizol Mason LVN [facility] 2024-02-24 10:02:54 Patient is requesting a referral for Gastroenterology. Dept: Gastroenterology. Reason for referral: nausea, excessive vomiting Duration of problem: Ongoing Internal / External referral: Internal or External Name of provider / location patient requesting: n/a/patient can be seen anywhere Phone number: n/a Fax number: n/a Appt already scheduled?: no If yes, date of appt.: n./a Chalo Guerrero [facility] 2024-02-17 14:00:00 Images from the original note were not included. Venipuncture collection performed by clean technique on the left anticubitus. Total of 1 attempts were made. Slight pressure and a bandage/dressing were applied to the site(s). The patient experienced no complications. The following specimens were processed according to instructions and sent to [facility] laboratories per lab order on 02/17/2024 : LT BLUE SST 1 RED LAV PPT DK GREEN (LiHep) DK GREEN (SodH) ABEL DK BLUE (K2) DK BLUE (S) ACD Blood Culture NIPT/NTD Patient has been identified by and was provided with cup, antiseptic towelette, and clean catch instructions. 2 urine specimen(s) sent. Unpreserved 2 Urine Culture Aptima tube Other urine [facility] 2024-02-13 10:30:20 Referral placed [facility] 2024-02-13 07:45:27 Last Refilled: Disp Refills Start End JELANI propranoloL 20 mg tablet 180 tablet 1 12/23/2023 -- -- Sig: Take 1 tablet by mouth in the morning and 1 tablet in the evening. Sent to pharmacy as: propranoloL 20 mg tablet (INDERAL) Class: eRX Route: Oral Order: [id number] Date/Time Signed: 12/23/2023 15:25 E-Prescribing Status: Receipt confirmed by pharmacy (12/23/2023 3:25 PM CDT) Notes: Recent Visits Date Type Provider Dept 02/03/24 Office Visit Sima Lloyd, TIMBER SELECTOR [facility] 12/20/23 Office Visit Sima Lloyd TIMBER SELECTOR [facility] 08/08/23 Office Visit Sima Lloyd TIMBER SELECTOR [facility] 06/14/23 Office Visit Sima Lloyd, TIMBER SELECTOR [facility] 05/09/23 Office Visit Sima Lloyd TIMBER SELECTOR [facility] 04/05/23 Office Visit Sima Lloyd, TIMBER SELECTOR [facility] 03/03/23 Office Visit Sima Lloyd, TIMBER SELECTOR [facility] 01/13/23 Office Visit Sima Lloyd, TIMBER SELECTOR [facility] 09/01/22 Office Visit Jill Barrett PA [facility] Showing recent visits within past 540 days with a meds authorizing provider and meeting all other requirements Future Appointments Date Type Provider Dept 06/04/24 Appointment Sima Lloyd FNP [facility] Showing future appointments within next 150 days with a meds authorizing provider and meeting all other requirements Shiela Flor RN [facility] 2024-02-10 17:24:53 You may add referral [facility] 2024-02-10 11:36:15 Please review and advise if okay to place referral. [facility] 2024-02-10 11:29:32 Hilda Colón is scheduled with Dr. Bates in Nephrology on 02/20/2024 for a follow-up appointment and per their insurance policy a referral is required for specialty care visits, please place a referral from NEREYDA Lloyd with the required PCP to specialty referral with authorizations and advise once placed Myron Odell [facility] 2024-02-03 07:25:39 Pt has apt today, for f/u Selina Tate [facility] 2024-02-02 17:02:45 Yes,I approve T [facility] 2024-02-02 15:21:47 Please review and advise Marizol Mason LVN [facility] 2024-02-02 15:18:30 Hilda Colón is a 53 year old female Patient calling to discuss her next biopsy visit and asked if her pcp approves. Please contact [phone] Winston Mujica [facility] 2024-02-02 13:50:08 Appt made today. Labs ordered. [facility] 2024-02-02 13:45:25 Hilda Colón is a 53 year old female Pt is requesting lab orders to be placed for her appt on 02/20/24. Thank you Kalina Meyer [facility] 2024-01-25 14:44:43 Copied from [facility] #[id number]. 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 [phone] Kayla Howard [facility] 2023-12-20 14:00:00 Images from the original note were not included. Venipuncture collection performed by clean technique on the right anticubitus. Total of 1 attempts were made. Slight pressure and a bandage/dressing were applied to the site(s). The patient experienced no complications. The following specimens were processed according to instructions and sent to [facility] laboratories per lab order on 12/20/2023: LT BLUE SST 1 RED LAV 2 PPT DK GREEN (LiHep) DK GREEN (SodH) ABEL DK BLUE (K2) DK BLUE (S) ACD Blood Culture NIPT/NTD [facility] 2023-12-20 13:30:00 Addended by: NEREYDA LLOYD DNP-SIMA VASQUEZ on: 12/24/2023 07:47 AM Modules accepted: Orders [facility] 2023-11-25 14:15:00 Images from the original note were not included. Venipuncture collection performed by clean technique on the right anticubitus. Total of 1 attempts were made. Slight pressure and a bandage/dressing were applied to the site(s). The patient experienced no complications. The following specimens were processed according to instructions and sent to [facility] laboratories per lab order on 11/25/2023: LT BLUE SST 2 1 RST RED LAV PPT DK GREEN (LiHep) DK GREEN (SodH) ABEL DK BLUE (K2) DK BLUE (S) ACD Blood Culture NIPT/NTD [facility] - [facility] 2023-11-25 10:09:22 Images from the original note were not included. Requested Renewals foLIC acid 1 mg tablet Sig: Take 1 tablet by mouth in the morning. Disp: 30 tablet Refills: 6 Start: 11/25/2023 Class: eRX For: Abnormal uterine bleeding, Medication refill Last ordered: 1 year ago (09/15/2022) by NEREYDA Lance [employer] [id number]/25/2023 09:18 AM Protocol Details Valid encounter within last 12 months To be filled at: [facility] [address] [place] [address] Recent Visits Date Type Provider Dept 08/08/23 Office Visit Sima Lloyd FNP [facility] 06/14/23 Office Visit Sima Lloyd FNP [facility] 05/09/23 Office Visit Sima Lloyd FNP [facility] 04/05/23 Office Visit Sima Lloyd FNP [facility] 03/03/23 Office Visit Sima Lloyd FNP [facility] 01/13/23 Office Visit Sima Lloyd FNP [facility] 09/01/22 Office Visit Jill Barrett PA [facility] 07/01/22 Office Visit Sima Lloyd FNP [facility] Showing recent visits within past 540 days with a meds authorizing provider and meeting all other requirements Future Appointments No visits were found meeting these conditions. Showing future appointments within next 150 days with a meds authorizing provider and meeting all other requirements Marizol Mason LVN [facility] 2023-11-03 16:00:00 Images from the original note were not included. Patient has been identified by and name and was provided with cup, antiseptic towelette, and clean catch instructions. 1 urine specimen(s) sent. Unpreserved 1 Urine Culture Aptima tube Other urine [facility] 2023-11-01 15:00:00 Images from the original note were not included. Venipuncture collection performed by clean technique on the right anticubitus. Total of 1 attempts were made. Slight pressure and a bandage/dressing were applied to the site(s). The patient experienced no complications. The following specimens were processed according to instructions and sent to [facility] laboratories per lab order on 11/01/2023 : LT BLUE SST 1 RED LAV 1 PPT DK GREEN (LiHep) DK GREEN (SodH) ABEL DK BLUE (K2) DK BLUE (S) ACD Blood Culture NIPT/NTD Patient has been identified by and was provided with cup, antiseptic towelette, and clean catch instructions. 3 urine specimen(s) sent. Unpreserved 3 Urine Culture Aptima tube Other urine [facility] 2023-10-28 16:19:22 Chart reviewed. Labs ordered for upcoming Nephrology appointment per guidelines. MyChart message and/or letter sent to patient as an appointment reminder. [facility] 2023-08-08 15:30:00 Addended by: RONAK TO on: 08/09/2023 11:12 AM Modules accepted: Orders [facility] 2023-08-08 15:30:00 Addended by: NEREYDA LLOYD DNP-SIMA VASQUEZ on: 12/14/2023 12:14 PM Modules accepted: Orders T [facility] 2023-04-07 16:56:58 Formatting of this n ote might be different from the original. This medication has been discontinued due to intolerable side effects [facility] 2023-04-07 16:28:36 Formatting of this n ote might be different from the original. Trulicity sent T [facility] 2023-04-07 12:23:33 Formatting of this n ote might be different from the original. Please review and advise. T Marizol Mason LVN [facility] 2023-04-07 12:18:46 Formatting of this n ote might be different from the original. Patient is calling in requesting an alternate for the insulin due to it being too expensive patient is requesting trulicity. Salvador Pierce [facility] 2023-04-06 10:42:32 Formatting of this n ote is different from the original. Ozempic (0.25&0.5) 2MG/3ML Qty:3 Inject 0.5 mg under the skin weekly Recent Visits Date Type Provider Dept 04/05/23 Office Visit Sima Lloyd FNP [facility] 03/03/23 Office Visit Sima Lloyd FNP [facility] 01/13/23 Office Visit Sima Lloyd FNP [facility] 09/01/22 Office Visit Jill Barrett PA [facility] 07/01/22 Office Visit Sima Lloyd FNP [facility] 05/11/22 Office Visit Sima Lloyd FNP [facility] Showing recent visits within past 540 days with a meds authorizing provider and meeting all other requirements Future Appointments Date Type Provider Dept 05/09/23 Appointment Sima Lloyd FNP [facility] 05/16/23 Appointment Sima Lloyd FNP [facility] Showing future appointments within next 150 days with a meds authorizing provider and meeting all other requirements Marizol Mason LVN [facility] 2023-04-06 10:39:18 Formatting of this n ote might be different from the original. Ozempic (0.25&0.5) 2MG/3ML Qty:3 Inject 0.5 mg under the skin weekly Rick Dobson [facility] 2023-04-05 16:47:17 Formatting of this n ote might be different from the original. Patient was advised that due to her severe side effects the Ozempic was cancelled and the insulin was sent in per Sima Lloyd. [facility] 2023-04-05 15:56:03 Formatting of this n ote might be different from the original. Pt called and states that per pharmacy [facility] had cancelled rx for semaglutide (OZEMPIC) 0.25 mg or 0.5 mg(2 mg/1.5 mL) PnIj . She is requesting for clarification. Please advise. Sue Hancock [facility] 2023-04-05 15:00:00 Formatting of this n ote is different from the original. Images from the original note were not included. Venipuncture collection performed by clean technique on the right anticubitus. Total of 1 attempts were made. Slight pressure and a bandage/dressing were applied to the site(s). The patient experienced no complications. The following specimens were processed according to instructions and sent to [facility] laboratories per lab order on today: LT BLUE SST 1 RED LAV PPT DK GREEN (LiHep) DK GREEN (SodH) ABEL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
[2024-07-30] MEDS ORDERED: ONDANSETRON 4 MG/2 ML VIAL ONE (12:04)
[2024-07-30] MEDS ORDERED: ALBUTEROL 2.5 MG/3 ML NEB SOL ONE (12:13)
[2024-07-30] MEDS ORDERED: Magnesium Sulfate 2gm IVPB 2 G/50 ML BAG IV ONE (12:14)
[2024-07-30 12:18] LABS: Absolute Basophils 0.1 K/uL (0-0.5); Absolute Eosinophils 0.2 K/uL (0-0.5); Absolute Lymphocytes (CBC) 1.4 K/uL (0.7-4.9); Absolute Monocytes 0.7 K/uL (0.1-1.3); Absolute Neutrophil 5.5 K/uL (1.8-8.0); Basophils % 0.8 % (0-1.3); Eosinophils % 2.1 % (0-4.4); Hematocrit 32.6 % (36.0-45.0); Hemoglobin 10.1 g/dL (12.0-15.0); Lymphocytes % 17.8 % (15.3-44.8); MCH 25.1 pg (27.0-35.0); MCHC 31.1 g/dL (32.0-36.0); MCV 80.8 fL (80-100); MPV 8.1 fL (7.6-11.3); Monocytes % 8.7 % (3.3-12.3); Neutrophils % 70.6 % (41.7-73.7); Nucleated Red Blood Cells % 0.1 % (0-0); Platelets 228 thou/uL (152-406); RBC Red Blood Cell Count 4.03 M/uL (3.86-4.86); Red Cell Distribution Width 18.9 % (12.1-15.2)
--- NOTE | 2024-07-30 12:21 | RAD REPORT ---
Procedure: Chest Single View HISTORY: Cough COMPARISON: March 2023 FINDINGS: Right lung base is hazy. Chronic elevation of the right hemidiaphragm is present. Left lung appears clear. Heart is mildly to moderately enlarged. IMPRESSION: Right lung base is hazy which may represent a combination of pneumonia and pleural effusion.
[2024-07-30 12:27] LABS: PT Prothrombin Time 15.5 SECONDS (9.4-12.5); PTT, Activated Partial Thromb 34.2 SECONDS (24.3-36.9); Protime INR 1.4
[2024-07-30 12:43] LABS: Albumin 3.2 g/dL (3.4-5.0); Albumin/Globulin Ratio 0.7 (1.1-1.8); Alkaline Phosphatase 296 U/L (45-117); BUN Blood Urea Nitrogen 20 mg/dL (7-18); Bicarbonate 21 mEq/L (21-32); Globulin 4.9 g/dL (2.3-3.5); Glomerular Filtration Rate 75 ml/min (=/>90); Glucose Level 81 mg/dL (74-106); Protein, Total 8.1 g/dL (6.4-8.2); Sodium Level 135 mEq/L (136-145)
[2024-07-30] MEDS ORDERED: AZITHROMYCIN 500 MG INJ IVPB ONE (12:52)
[2024-07-30] MEDS ORDERED: CEFTRIAXONE 1000 MG/VIAL ONE (12:52)
[2024-07-30] MEDS ORDERED: NA CHLORIDE 0.9% 250 ML ONE (12:53)
[2024-07-30 12:54] LABS: ALT/SGPT < 14 U/L (13-56); AST/SGOT 27 U/L (15-37)
[2024-07-30] MEDS ORDERED: NA CHLORIDE 0.9% 3,000 ML ONE (13:49)
--- NOTE | 2024-07-30 14:05 | EDPHYS ---
Physician Documentation [facility] Name: Hilda Garcia Age: 54 yrs Sex: Female : 1970 Arrival Date: 07/30/2024 Time: 11:41 Bed 7 Private MD: ED Physician Zion Willson HPI: 07/30 12:23 This 54 yrs old Female presents to ER via EMS with complaints of Shortness Of ms3 Breath. 12:23 Hilda Garcia, a 54-year-old female, presents to the Emergency Department with a ms3 chief complaint of chest pain and difficulty breathing. The chest pain has been present for three days, and she rates the pain as a six out of ten. The patient reports experiencing breathing difficulties for the past week. An EKG was performed by EMS and was unremarkable. Vitals indicate a blood pressure that is not significantly elevated and a temperature of 98.8F. She also reports having nausea earlier, for which 12.5 mg of an Promethazine was administered. The patient's sister accompanies her and mentions that this is not the first time the patient has experienced such symptoms.. Historical: - Allergies: 11:47 No Known Allergies; bp - PMHx: 11:47 diabetes mellitus; Hypertensive disorder; thyroid disease (Hypertensive disord); bp uterine cancer; - PSHx: 11:47 Total abdominal hysterectomy; bp - Immunization history:: Adult Immunizations up to date. - Infectious Disease History:: Denies. - Social history:: Smoking status: Patient denies any tobacco usage or history of. ROS: 12:23 Skin: Negative for injury, rash, and discoloration, ms3 12:23 Cardiovascular: Positive for chest pain, 12:23 Respiratory: Positive for cough, shortness of breath, 12:23 Abdomen/GI: Positive for nausea and vomiting, Exam: 12:23 Constitutional: This is a well developed, well nourished patient who is awake, alert, ms3 and in no acute distress. Head/Face: Normocephalic, atraumatic. Chest/axilla: Normal chest wall appearance and motion. Nontender with no deformity. Cardiovascular: Regular rate and rhythm with a normal S1 and S2. No gallops, murmurs, or rubs. Normal PMI, no JVD. No pulse deficits. 12:23 Respiratory: moderate respiratory distress is noted, Respirations: tachypnea, Breath sounds: wheezing: expiratory is heard diffusely, 12:29 ECG was reviewed by the Attending Physician. ms3 Vital Signs: 11:43 BP 140 / 60; Pulse 75; Resp 28; Temp 97.9; Pulse Ox 92% on R/A; bp 13:00 BP 102 / 62; Pulse 67; Resp 16; Pulse Ox 97% ; bp 13:47 Weight 98.88 kg; iw 14:00 BP 95 / 60; Pulse 66; Resp 18; Pulse Ox 97% ; bp 15:00 BP 101 / 87; Pulse 68; Resp 18; Pulse Ox 99% ; bp 16:00 BP 127 / 82; Pulse 71; Resp 18; Pulse Ox 96% ; bp 17:21 BP 119 / 68; Pulse 69; Resp 16; Pulse Ox 98% ; bp MDM: 11:47 Medical Screening Exam initiated ms3 12:23 Differential diagnosis: CHF exacerbation, Chronic Obstructive Pulmonary Disease ms3 pneumonia, pulmonary edema, reactive airway disease. 13:49 ED course: Sepsis re-evaluation completed. ms3 22:00 Data reviewed: vital signs, nurses notes, lab test result(s), EKG, radiologic studies, ms3 and as a result, I will admit patient. Consideration of Admission/Observation Patient was admitted/placed on observation. Management of patient was discussed with the following: Hospitalist: . I considered the following discharge prescriptions or medication management in the emergency department Medications were administered in the Emergency Department. See MAR. Independent interpretation of the following test(s) in the Emergency Department EKG: See my EKG interpretation above. Historians other than the Patient: EMS: . Counseling: I had a detailed discussion with the patient and/or guardian regarding the historical points, exam findings, and any diagnostic results supporting the discharge/admit diagnosis, lab results, radiology results, the need for further work-up and treatment in the hospital. ED course: On arrival to the Emergency Department patient was placed on Bipap. During her ED stay patient's respiratory status improved and patient placed on NC. Discussed with patient and her sister necessity for admission and they understood/ agreed with plan. All questions were answered.. 12 11:47 Order name: Blood Culture Adult (2) ms3 12 11:47 Order name: CBC with Diff; Complete Time: 12:22 ms3 07/30 11:47 Order name: CMP; Complete Time: 13:43 ms3 07/30 11:47 Order name: Lactate w/ 2H reflex if indic.; Complete Time: 13:43 ms3 07/30 11:47 Order name: Protime (+inr); Complete Time: 13:43 ms3 07/30 11:47 Order name: Ptt, Activated; Complete Time: 13:43 ms3 07/30 11:47 Order name: Urinalysis w/ reflexes ms3 07/30 14:57 Order name: Ghost Lactate-NO COLLECT Timer; Complete Time: 16:27 EDMS 07/30 15:11 Order name: ABG Arterial Blood Gas EDMS 07/30 15:11 Order name: Basic Metabolic Panel EDMS 07/30 15:11 Order name: Basic Metabolic Panel EDMS 07/30 15:11 Order name: Basic Metabolic Panel EDMS 07/30 15:11 Order name: Basic Metabolic Panel EDMS 07/30 15:11 Order name: Basic Metabolic Panel EDMS 07/30 15:11 Order name: Basic Metabolic Panel EDMS 07/30 15:11 Order name: CBC with Automated Diff EDMS 07/30 15:11 Order name: CBC with Automated Diff EDMS 07/30 15:11 Order name: CBC with Automated Diff EDMS 07/30 15:11 Order name: CBC with Automated Diff EDMS 07/30 15:11 Order name: CBC with Automated Diff EDMS 07/30 15:11 Order name: CBC with Automated Diff EDMS 07/30 15:11 Order name: Magnesium EDMS 07/30 15:11 Order name: Magnesium EDMS 07/30 15:11 Order name: Magnesium EDMS 07/30 15:11 Order name: Magnesium EDMS 07/30 15:11 Order name: Magnesium EDMS 07/30 15:11 Order name: Magnesium EDMS 07/30 15:11 Order name: Phosphorus EDMS 07/30 15:11 Order name: Phosphorus EDMS 07/30 15:12 Order name: Phosphorus EDMS 07/30 15:12 Order name: Phosphorus EDMS 07/30 15:12 Order name: Phosphorus EDMS 07/30 15:12 Order name: Phosphorus EDMS 07/30 15:53 Order name: Lactate Sepsis 2 HR Follow-up; Complete Time: 16:27 EDMS 07/30 11:47 Order name: Chest Single View XRAY; Complete Time: 12:22 ms3 07/30 15:11 Order name: CONS Physician Consult EDMD 07/30 11:47 Order name: Accucheck; Complete Time: 12:11 ms3 07/30 11:47 Order name: Cardiac monitoring; Complete Time: 12:11 ms3 07/30 11:47 Order name: EKG - Nurse/Tech; Complete Time: 12:24 ms3 07/30 11:47 Order name: IV Saline Lock - Large Bore; Complete Time: 12:11 ms3 07/30 11:47 Order name: Labs collected and sent; Complete Time: 12:11 ms3 07/30 11:47 Order name: O2 Per Protocol; Complete Time: 12:11 ms3 07/30 11:47 Order name: O2 Sat Monitoring; Complete Time: 12:11 ms3 07/30 11:47 Order name: Vital Signs; Complete Time: 12:11 ms3 EC:29 Rate is 69 beats/min. Rhythm is regular. QRS Lottie is Normal. [place] interval is prolonged. ms3 QRS interval is normal. Clinical impression: 1st degree heart block. Interpreted by me. Reviewed by me. Administered Medications: 12:11 Drug: Ondansetron IVP 4 mg IVP once; over 2 minutes Route: IVP; Site: left antecubital; hb 16:28 Follow up: Response: No adverse reaction bp 12:13 Drug: Magnesium Sulfate IVPB 2 grams IVPB once over 2 hrs Route: IVPB; Infused Over: 2 hb hrs; Site: left antecubital; 16:37 Follow up: IV Status: Completed infusion bp 12:13 Drug: Albuterol Inhalation 2.5 mg Inhalation every 20 minutes x3 Route: Inhalation; hb 12:30 Drug: Albuterol Inhalation 2.5 mg Inhalation every 20 minutes x3 Route: Inhalation; hb 12:45 Drug: Rocephin IV 1 grams IV at calculated rate once; Given slow IV push per pharmacy bp instructions Route: IV; Rate: calculated rate; Site: left forearm; 16:37 Follow up: IV Status: Completed infusion bp 12:45 Drug: AZITHromycin IVPB 500 mg IVPB once over 1 hrs; (mix in 250 mL NS) Route: IVPB; bp Infused Over: 1 hrs; Site: left forearm; 16:36 Follow up: IV Status: Completed infusion bp 13:00 Drug: Albuterol Inhalation 2.5 mg Inhalation every 20 minutes x3 Route: Inhalation; bp 13:48 Drug: NS 0.9% IV (30 ml/kg) 30 ml/kg IV at bolus once; Sepsis Protocol; to be given as iw a bolus over 90 minutes Route: IV; Rate: bolus; Site: left antecubital; 15:00 Follow up: Response: No adverse reaction; IV Status: Completed infusion; IV Intake: hb 3000ml Disposition: 22:05 Critical Care:. ms3 Disposition Summary: 07/30/24 14:05 Hospitalization Ordered Notes: Hospitalization Status: Inpatient Admission ms3 Provider: Tl Boucher ms3 Condition: Stable ms3 Problem: new ms3 Symptoms: have improved ms3 Bed/Room Type: Standard ms3 Location: Telemetry/MedSurg (Inpatient)(07/30/24 17:01) 6 Room Assignment: [facility](07/30/24 17:05) [facility] Diagnosis - Other pneumonia, unspecified organism ms3 - Severe sepsis with septic shock ms3 - Shortness of breath ms3 Forms: - Medication Reconciliation Form ms3 - SBAR form ms3 - Leadership Thank You Letter ms3 Critical care time excluding procedures: 22:05 Critical care time: Bedside Care: 40 minutes, Consultation: 5 minutes, Family ms3 Intervention: 10 minutes. Total time: 55 minutes Signatures: Dispatcher [employer] Sinai Salazar RN RN iw Baxter, Heather, RN RN hb Peltier, Brian RN Zion Nair DO DO ms3 Radha [facility] Corrections: (The following items were deleted from the chart) 11:48 11:48 BLOOD CULTURE*+BA.LAB.BRZ ordered. EDMS EDMS 11:48 11:48 CBC+H.LAB.BRZ ordered. EDMS EDMS 11:48 11:48 COMPREHENSIVE METABOLIC PANEL+C.LAB.BRZ ordered. EDMS EDMS 11:48 11:48 LACTATE+C.LAB.BRZ ordered. EDMS EDMS 11:48 11:48 PROTIME (+INR)+COAG.LAB.BRZ ordered. EDMS EDMS 11:48 11:48 PTT, ACTIVATED+COAG.LAB.BRZ ordered. EDMS EDMS 11:48 11:48 Urinalysis+U.LAB.BRZ ordered. EDMS EDMS 11:48 11:48 Chest Single View+RAD.RAD.BRZ ordered. EDMS EDMS 16:14 14:05 ms3 bc6 16:58 14:05 Telemetry/MedSurg (Inpatient) ms3 bp 16:58 16:14 413 bc6 bp 17:01 16:58 [facility] ER HOLD bp bc6 17:01 16:58 bp bc6 17:01 17:01 413 bc6 bc6 17:05 17:01 bc6 bc6
--- NOTE | 2024-07-30 14:05 | ER ---
Nurse's Notes [facility] Name: Hilda Garcia Age: 54 yrs Sex: Female : 1970 Arrival Date: 07/30/2024 Time: 11:41 Bed 7 Private MD: Diagnosis: Other pneumonia, unspecified organism;Severe sepsis with septic shock;Shortness of breath Presentation: 07/30 11:43 Chief complaint: EMS states: SHORTNESS OF BREATH. Coronavirus screen: shortness of bp breath. Ebola Screen: No symptoms or risks identified at this time. Initial Sepsis Screen: Does the patient meet any 2 criteria? No. Patient's initial sepsis screen is negative. Does the patient have a suspected source of infection? No. Patient's initial sepsis screen is negative. Risk Assessment: Do you want to hurt yourself or someone else? Patient reports no desire to harm self or others. Onset of symptoms is unknown. Care prior to arrival: Medication(s) given: Albuterol Neb x 1, Atrovent Neb x 1, SOLU-MEDROL 125MG IVP, 12.5 PROMETHAZINE IV initiated. 20 GA, in the left wrist. 11:43 Method Of Arrival: EMS: [facility] bp 11:43 Acuity: JENIFER 3 bp Triage Assessment: 11:47 General: Appears distressed, uncomfortable, Behavior is cooperative, appropriate for bp age, anxious. Pain: Denies pain. EENT: No deficits noted. Neuro: No deficits noted. Cardiovascular: Rhythm is sinus rhythm. Respiratory: Reports shortness of breath Airway is patent Breath sounds are coarse bilaterally. Onset: The symptoms/episode began/occurred today, the patient has moderate shortness of breath. GI: No signs and/or symptoms were reported involving the gastrointestinal system. : No signs and/or symptoms were reported regarding the genitourinary system. Derm: No deficits noted. Musculoskeletal: No deficits noted. Historical: - Allergies: 11:47 No Known Allergies; bp - PMHx: 11:47 diabetes mellitus; Hypertensive disorder; thyroid disease (Hypertensive disord); bp uterine cancer; - PSHx: 11:47 Total abdominal hysterectomy; bp - Immunization history:: Adult Immunizations up to date. - Infectious Disease History:: Denies. - Social history:: Smoking status: Patient denies any tobacco usage or history of. Screenin:00 [facility] ED Fall Risk Assessment (Adult) History of falling in the last 3 months, bp including since admission No falls in past 3 months (0 pts) Confusion or Disorientation No (0 pts) Intoxicated or Sedated No (0 pts) Impaired Gait No (0 pts) Mobility Assist Device Used No (0 pt) Altered Elimination No (0 pt) Score/Fall Risk Level 0 - 2 = Low Risk Oriented to surroundings. Abuse screen: Denies threats or abuse. Denies injuries from another. Nutritional screening: No deficits noted. Tuberculosis screening: No symptoms or risk factors identified. Assessment: 12:00 General: Appears distressed, uncomfortable, Behavior is cooperative, appropriate for bp age, agitated. Pain: Denies pain. Neuro: Level of Consciousness is awake, alert, obeys commands, Oriented to Appropriate for age. Cardiovascular: Rhythm is sinus rhythm. Respiratory: Airway is patent Respiratory effort is labored. GI: No signs and/or symptoms were reported involving the gastrointestinal system. : No signs and/or symptoms were reported regarding the genitourinary system. EENT: No deficits noted. Derm: No deficits noted. Musculoskeletal: No deficits noted. 14:00 Reassessment: No changes from previously documented assessment. Patient is alert, bp oriented x 3, equal unlabored respirations, skin warm/dry/pink. 16:00 Reassessment: Patient appears in no apparent distress at this time. Patient is alert, bp oriented x 3, equal unlabored respirations, skin warm/dry/pink. 16:35 Reassessment: REPORT FAXED TO [facility]. bp 16:45 Reassessment: ADMIT ON HOLD, ROOM REASSIGNED BY FLOOR. bp 17:20 Reassessment: ADMIT ON HOLD, REASSIGNED ROOM OCCUPIED PER FLOOR STAFF. bp Vital Signs: 11:43 BP 140 / 60; Pulse 75; Resp 28; Temp 97.9; Pulse Ox 92% on R/A; bp 13:00 BP 102 / 62; Pulse 67; Resp 16; Pulse Ox 97% ; bp 13:47 Weight 98.88 kg; iw 14:00 BP 95 / 60; Pulse 66; Resp 18; Pulse Ox 97% ; bp 15:00 BP 101 / 87; Pulse 68; Resp 18; Pulse Ox 99% ; bp 16:00 BP 127 / 82; Pulse 71; Resp 18; Pulse Ox 96% ; bp 17:21 BP 119 / 68; Pulse 69; Resp 16; Pulse Ox 98% ; bp ED Course: 11:43 Patient arrived in ED. bp 11:47 Triage completed. bp 11:47 Zion Willson DO is Attending Physician. ms3 11:47 Arm band placed on. bp 12:00 Patient has correct armband on for positive identification. bp 12:03 Inserted saline lock: 20 gauge in left antecubital area, using aseptic technique. Blood hb collected. Flushed with 10 mL NS. 12:03 Initial lab(s) drawn, by me, sent to lab. First set of blood cultures drawn by me. hb 12:06 Vaibhav Contreras, RN is Primary Nurse. bp 12:11 Maintain EMS IV. Dressing intact. Good blood return noted. Site clean \T\ dry. Gauge \T\ hb site: 20 LFA. Flushed with 10 mL NS. 12:15 Chest Single View XRAY In Process Unspecified. EDMS 14:04 Tl Boucher is Hospitalizing Provider. ms3 16:36 Provided Education on: N/A. bp 16:36 No provider procedures requiring assistance completed. Patient admitted, IV remains in bp place. Administered Medications: 12:11 Drug: Ondansetron IVP 4 mg IVP once; over 2 minutes Route: IVP; Site: left antecubital; hb 16:28 Follow up: Response: No adverse reaction bp 12:13 Drug: Magnesium Sulfate IVPB 2 grams IVPB once over 2 hrs Route: IVPB; Infused Over: 2 hb hrs; Site: left antecubital; 16:37 Follow up: IV Status: Completed infusion bp 12:13 Drug: Albuterol Inhalation 2.5 mg Inhalation every 20 minutes x3 Route: Inhalation; hb 12:30 Drug: Albuterol Inhalation 2.5 mg Inhalation every 20 minutes x3 Route: Inhalation; hb 12:45 Drug: Rocephin IV 1 grams IV at calculated rate once; Given slow IV push per pharmacy bp instructions Route: IV; Rate: calculated rate; Site: left forearm; 16:37 Follow up: IV Status: Completed infusion bp 12:45 Drug: AZITHromycin IVPB 500 mg IVPB once over 1 hrs; (mix in 250 mL NS) Route: IVPB; bp Infused Over: 1 hrs; Site: left forearm; 16:36 Follow up: IV Status: Completed infusion bp 13:00 Drug: Albuterol Inhalation 2.5 mg Inhalation every 20 minutes x3 Route: Inhalation; bp 13:48 Drug: NS 0.9% IV (30 ml/kg) 30 ml/kg IV at bolus once; Sepsis Protocol; to be given as iw a bolus over 90 minutes Route: IV; Rate: bolus; Site: left antecubital; 15:00 Follow up: Response: No adverse reaction; IV Status: Completed infusion; IV Intake: hb 3000ml Medication: 16:36 VIS not applicable for this client. bp Intake: 15:00 IV: 3000ml; Total: 3000ml. hb Outcome: 14:05 Decision to Hospitalize by Provider. ms3 16:35 Admitted to Med/surg accompanied by tech, via wheelchair, room 413, with chart, bp 16:35 Condition: stable 16:35 Instructed on the need for admit, 17:58 Patient left the ED. bp Signatures: Dispatcher [employer] EDND Sinai Quick RN RN Jackie Rosenberg RN RN hb Peltier, Brian RN Zion Nair DO DO ms3 Corrections: (The following items were deleted from the chart) 12:06 11:40 Arm band placed on bp bp
--- NOTE | 2024-07-30 14:25 | P.HP ---
Certification for Inpatient Patient admitted to: Inpatient With expected LOS: >2 Midnights Practitioner: I am a practitioner with admitting privileges, knowledge of patient current condition, hospital course, and medical plan of care. Services: Services provided to patient in accordance with Admission requirements found in Title 42 Section 412.3 of the Code of Federal Regulations Patient History Date of Service: 07/30/24 Reason for admission: Sepsis secondary to right lower lobe pneumonia History of Present Illness: Hilda Garcia is a 54-year-old female with past medical history of diabetes, hypertension, hypothyroidism, uterine cancer who presents to the ED with chief complaints of shortness of breath and chest pain x 3 days. On arrival to the ED, respiratory distress noted, patient was put on a CPAP but was able to tolerate 3 L nasal cannula shortly after. Wheezing noted to right lung space, lactic acid 4.2, alk phos 296. Chest x-ray reports "Right lung base is hazy which may represent a combination of pneumonia and pleural effusion." Of note, She was discharged from [facility] on Wednesday 07/25, reportedly a heart cath was performed. Will obtain records to evaluate further. Initial vitals BP 140 / 60; Pulse 75; Resp 28; Temp 97.9; Pulse Ox 92% on R/A Hilda will be admitted to hospital service for further evaluation and treatment of sepsis secondary to right-sided pneumonia Allergies No Known Allergies Allergy (Verified 05/05/23 02:23) Home Medications: Furosemide [Lasix] 20 mg PO BID 07/30/24 Gabapentin 300 mg PO TID 07/30/24 Metformin HCl 500 mg PO DAILY 07/30/24 Spironolactone 25 mg PO DAILY 07/30/24 methIMAzole [Tapazole*] 20 mg PO TID 07/30/24 - Past Medical/Surgical History Diabetic: Yes -: HTN -: Diabetes -: Hysterectomy -: Ankle surgery - Social History CD- Drugs: No Caffeine use: No Review of Systems Respiratory: Cough, Shortness of Breath, Wheezing Physical Examination - Vital Signs Pulse: 72 Pulse Ox (%): 99 - Physical Exam General: Alert, Oriented x3, Acute distress HEENT: Atraumatic, Normocephalic, PERRLA Neck: Supple, 2+ carotid pulse no bruit Respiratory: Diminished, Expiratory wheezes Cardiovascular: Normal pulses, Regular rate/rhythm, Normal S1 S2 Capillary refill: <2 Seconds Gastrointestinal: Normal bowel sounds, Soft and benign, Non-distended, No tenderness Musculoskeletal: No clubbing Integumentary: No rashes Neurological: Normal speech, Normal tone - Studies Laboratory Data (last 24 hrs) 07/30/24 07/30/24 07/30/24 12:03 12:03 12:03 WBC 7.80 Hgb 10.1 L Hct 32.6 L Plt Count 228 PT 15.5 H INR 1.40 APTT 34.2 Sodium 135 L Potassium 5.0 BUN 20 H Creatinine 0.91 Glucose 81 Total Bilirubin 2.0 H AST 27 ALT < 14 Alkaline Phosphatase 296 H Assessment and Plan - Plan Assessment and plan Severe sepsis 2/2 right sided pneumonia Acute hypoxic respiratory distress 2/2 right sided pneumonia Lactic acidosis Respiratory acidoiss Pulmonary hypertension -Sesis criteria Resp 28, LA 4.2, BP dropped to 102/62 -Recently discharged from [facility] 07/25 -3 L normal saline given in the ED -Magnesium, Rocephin, Zithromax given in the ED -Bipap at night -Levaquin on the floor -Nebulizer treatments -incentive spirometer -Dr Cerda consulted -Chest xray reports "Right lung base is hazy which may represent a combination of pneumonia and pleural effusion" -Chest ultrasound ordered. -ECHO ordered Diabetes -Accu-Chek with sign scale insulin Hypothyroidism Hypertension -Continue home DVT PPx Lovenox Full code LOS 2 days Discharge Plan: Home Plan to discharge in: 48 Hours - Advance Directives Does patient have a Living Will: No Does patient have a Durable POA for Healthcare: No
[2024-07-30] MEDS: IPRATROPIUM BROM 0.5MG/2.5ML NEB SCH (15:08)
[2024-07-30] MEDS: LEVALBUTEROL 0.63 MG/3 ML NEB NEB ONE (15:14)
[2024-07-30] MEDS: Levofloxacin 750mg IV 750 MG/150 ML BAG IV SCH (16:00)
[2024-07-30 16:38] LABS: Blood O2 Saturation 96.1 % (92-98.5)
[2024-07-30 16:39] LABS: Arterial Blood Carboxyhemoglob 1.2 % (0-1.5); Blood Gas Oxyhemoglobin 93.4 % (94-97); Blood Gas THB 11.4 g/dl (12-18)
[2024-07-30] MEDS: ACETAMINOPHEN 325 MG TABLET PO PRN (18:00)
[2024-07-30 18:07] VITALS: BMI 35.2
--- NOTE | 2024-07-30 18:11 | RAD REPORT ---
EXAMINATION: Chest Lateral Decubitus CLINICAL INDICATION: Female, 54 years old. R effusion RIGHT TECHNIQUE: 2 view decubitus radiographs of the chest were performed. COMPARISON: Chest radiograph of earlier the same day FINDINGS: Decubitus views of the chest demonstrate layering of the known right pleural effusion. Horizontal dem arcation of the upper effusion margin on right decubitus view, suggesting lateral loculation. Stable mild cardiomegaly. IMPRESSION: Findings suggesting lateral loculation of the right pleural effusion.
[2024-07-30] MEDS ORDERED: IPRATROPIUM BROM 0.5MG/2.5ML ONE (20:42)
[2024-07-30] MEDS: ENOXAPARIN 40 MG/0.4 ML SQ SCH (20:53)
[2024-07-30] MEDS: FUROSEMIDE 20 MG TABLET PO SCH (20:54)
[2024-07-30] MEDS: GABAPENTIN 300 MG CAP PO SCH (20:54)
[2024-07-31 04:34] LABS: Absolute Lymphocytes (CBC) 0.9 K/uL (0.7-4.9); Absolute Monocytes 0.3 K/uL (0.1-1.3); Basophils % 0.1 % (0-1.3); Hematocrit 30.8 % (36.0-45.0); Hemoglobin 9.6 g/dL (12.0-15.0); Lymphocytes % 14.3 % (15.3-44.8); MCHC 31.1 g/dL (32.0-36.0); MCV 80.4 fL (80-100); MPV 8.2 fL (7.6-11.3); Monocytes % 4.6 % (3.3-12.3); Nucleated Red Blood Cells % 0.1 % (0-0); Platelets 215 thou/uL (152-406); RBC Red Blood Cell Count 3.83 M/uL (3.86-4.86); Red Cell Distribution Width 18.7 % (12.1-15.2)
[2024-07-31 04:45] LABS: Anion Gap 11.3 mEq/L (5.0-15.0); Magnesium 2.1 mg/dL (1.6-2.4); Phosphorus 4.4 mg/dL (2.5-4.9); Potassium 4.3 mEq/L (3.5-5.1)
[2024-07-31 04:53] LABS: Troponin High Sensitivity 365.1 pg/mL (<58.9)
[2024-07-31] MEDS: ONDANSETRON 4 MG/2 ML VIAL IV PRN (05:29)
[2024-07-31] MEDS: MORPHINE 2 MG/ML SYR IV PRN (05:30)
[2024-07-31] MEDS ORDERED: HEPARIN/D5W 25,000 UNIT/500 ML BAG IV SCH (07:00)
--- NOTE | 2024-07-31 07:15 | RAD REPORT ---
EXAM: Chest HISTORY: Right side possible thoracentesis COMPARISON: Chest radiograph 07/30/2024 TECHNIQUE: Sonographic grayscale and color flow imaging of the right chest including the region of in terest as described by the patient. FINDINGS: At least moderate right-sided pleural effusion identified. No loculations are identified. IMPRESSION: At least moderate sized right pleural effusion identified. No significant loculations appreciated.
[2024-07-31] MEDS: SPIRONOLACTONE 25 MG TABLET PO SCH (09:48)
--- NOTE | 2024-07-31 10:37 | P.CNS ---
Date of Consult: 07/31/24 Chief Complaint: Sepsis secondary to right lower lobe pneumonia History of Present Illness: Patient with PMH of heart failure, presented with worsening SOB, STEPHENS and lower extremities swelling, denies chest pain, no palpitations, no syncope. Allergies iodine Allergy (Verified 07/31/24 08:14) Itching/Hives/Rash Home medications list reviewed: Yes Home Medications: Furosemide [Lasix] 20 mg PO BID 07/30/24 Gabapentin 300 mg PO TID 07/30/24 Metformin HCl 500 mg PO DAILY 07/30/24 Spironolactone 25 mg PO DAILY 07/30/24 methIMAzole [Tapazole*] 20 mg PO TID 07/30/24 - Past Medical/Surgical History Diabetic: Yes -: HTN -: Diabetes -: Hysterectomy -: Ankle surgery - Social History CD- Drugs: No Caffeine use: No Review of Systems 10-point ROS is otherwise unremarkable Physical Examination Temp Pulse Resp BP Pulse Ox 98.3 F 71 71 H 121/59 L 99 07/31/24 08:00 07/31/24 09:48 07/31/24 08:00 07/31/24 09:48 07/31/24 08:00 General: Alert, In no apparent distress HEENT: Atraumatic, PERRLA, Mucous membr. moist/pink, EOMI, Sclerae nonicteric Neck: Supple, 2+ carotid pulse no bruit, No LAD, Without JVD or thyroid abnormality Respiratory: Clear to auscultation bilaterally, Normal air movement Cardiovascular: Regular rate/rhythm, Normal S1 S2 Gastrointestinal: Normal bowel sounds, No tenderness Musculoskeletal: No tenderness Integumentary: No rashes Neurological: Normal gait, Normal speech, Normal tone, Normal affect Lymphatics: No axilla or inguinal lymphadenopathy Laboratory Data (last 24 hrs) 07/30/24 07/30/24 07/30/24 12:03 12:03 12:03 WBC 7.80 Hgb 10.1 L Hct 32.6 L Plt Count 228 PT 15.5 H INR 1.40 APTT 34.2 Sodium 135 L Potassium 5.0 BUN 20 H Creatinine 0.91 Glucose 81 Total Bilirubin 2.0 H AST 27 ALT < 14 Alkaline Phosphatase 296 H - Problems (1) SOB (shortness of breath) Current Visit: Yes Status: Acute Plan: Patient was recently discharged from [facility] where she had heart cath done, please get records. patient was told that she got heart failure and placed on aldactone and lasix and they were trying to get her jardiance recommend switching to lasix 40 mg IB BID start coreg 3.125 mg po BID continue Aldactone (2) NSTEMI (non-ST elevated myocardial infarction) Current Visit: Yes Status: Acute Plan: can be secondary to heart failure, get records from [facility] to check for coronary angiogram ASA 81 mg daily Lipitor 40 mg daily therpeutic lovenox continue to trend troponin until peak and down trending.
--- NOTE | 2024-07-31 10:49 | RAD REPORT ---
PROCEDURE: ULTRASOUND GUIDED THORACENTESIS CLINICAL INDICATION: [facility] MAIN right pleural effusion PROCEDURE DETAILS: Consent: Informed consent for the procedure including risks, benefits and alternatives was obtained a nd time-out was performed prior to the procedure. Preparation: The site was prepared and draped using maximal sterile barrier technique including cutan eous antisepsis. Procedure: Initial limited thoracic ultrasound was performed and a large pleural effusion was seen. A safe window for thoracentesis was identified with ultrasound to sonido a suitable access site. Local anesthesia was administered. The pleural cavity was accessed, and fluid return confirmed position. A 6F Szq-H-Cotjttst catheter was placed and fluid was drained. The catheter was removed, and a sterile bandage was applied. . Estimated blood loss: Less than 10 mL. IMPRESSION: RIGHT ultrasound guided thoracentesis, yielding 1200 mL of cloudy fluid. Additional procedure(s): Limited thoracic ultrasound. PLAN: Aspirated fluid was sent for analysis.
[2024-07-31 11:02] LABS: Body Fluid Source PLEURAL
--- NOTE | 2024-07-31 11:02 | RAD REPORT ---
EXAM: Chest Single View HISTORY: Status Post Thorocentesis COMPARISON: Yesterday FINDINGS: LUNGS/PLEURA: Status post right-sided thoracentesis. Slight improved aeration at the right lung base. No pneumothorax. Haziness at the left lung base is probably from underpenetration. MEDIASTINUM: The mediastinal silhouette is within normal limits. CARDIAC: Cardiomegaly. UPPER ABDOMEN: No significant abnormality. BONES: No acute fracture. LINES/TUBES/OTHER: N/A IMPRESSION: No pneumothorax following right-sided thoracentesis.. Mild improved aeration at the right lung base t paco there are still residual opacities.
[2024-07-31 11:03] LABS: Appearance TURBID (CLEAR); Body Fluid WBC 1206 /mm^3; Color of fluid Orange (COLORLESS)
--- NOTE | 2024-07-31 11:55 | P.CNS ---
Date of Consult: 07/30/24 Reason for Consult: Dyspnea Chief Complaint: Shortness of breath and right-sided pleural effusion History of Present Illness: Patient is 54 years of age admitted with worsening dyspnea she has had progressive dyspnea for the past 3 months was admitted at [facility] underwent a right heart cath and was told that she had pulmonary hypertension denies any fever chills or chest pain was tachypneic on admission Allergies iodine Allergy (Verified 07/31/24 08:14) Itching/Hives/Rash Home Medications: Furosemide [Lasix] 20 mg PO BID 07/30/24 Gabapentin 300 mg PO TID 07/30/24 Metformin HCl 500 mg PO DAILY 07/30/24 Spironolactone 25 mg PO DAILY 07/30/24 methIMAzole [Tapazole*] 20 mg PO TID 07/30/24 - Past Medical/Surgical History Diabetic: Yes -: HTN -: Diabetes -: Pulmonary hypertension -: Hysterectomy -: Ankle surgery - Social History CD- Drugs: No Caffeine use: No Review of Systems General: Weakness Respiratory: Shortness of Breath Cardiovascular: Edema Physical Examination Temp Pulse Resp BP Pulse Ox 98.3 F 71 16 121/59 L 94 07/31/24 08:00 07/31/24 09:48 07/31/24 10:52 07/31/24 09:48 07/31/24 10:52 General: Alert, Oriented x3, Mild distress Neck: Supple Respiratory: Diminished (Diminished on the right side) Cardiovascular: Edema (Patient has a nonhealing ulcer on the right side some edema of the left leg) Gastrointestinal: Normal bowel sounds, Soft and benign Laboratory Data (last 24 hrs) 07/30/24 07/30/24 07/30/24 12:03 12:03 12:03 WBC 7.80 Hgb 10.1 L Hct 32.6 L Plt Count 228 PT 15.5 H INR 1.40 APTT 34.2 Sodium 135 L Potassium 5.0 BUN 20 H Creatinine 0.91 Glucose 81 Total Bilirubin 2.0 H AST 27 ALT < 14 Alkaline Phosphatase 296 H - Problems (1) Pleural effusion Current Visit: Yes Status: Acute Plan: Patient is 54 years of age admitted with progressive dyspnea recently had a heart catheterization apparently was told that she has pulmonary hypertension in addition patient has significant right-sided pleural effusion we will plan to do an ultrasound bilateral decubitus of the chest risk for thromboembolism consider empiric anticoagulation for now patient is allergic to iodine labs reviewed mildly anemic also has a non-STEMI continue with spironolactone. Records from [facility]
--- NOTE | 2024-07-31 11:56 | P.PN ---
Subjective Date of Service: 07/31/24 Chief Complaint: Shortness of breath and right-sided pleural effusion Subjective: Improving (Patient apparently slightly better no new change) Review of Systems General: Weakness Respiratory: Shortness of Breath Physical Examination - Vital Signs Temperature: 98.3 F Blood Pressure: 121/59 Pulse: 71 Respirations: 16 Pulse Ox (%): 94 - Physical Exam General: Alert, Oriented x3 Respiratory: Clear to auscultation bilaterally, Diminished (Initially on the right side) - Studies Laboratory Data (last 24 hrs) 07/30/24 07/30/24 07/30/24 12:03 12:03 12:03 WBC 7.80 Hgb 10.1 L Hct 32.6 L Plt Count 228 PT 15.5 H INR 1.40 APTT 34.2 Sodium 135 L Potassium 5.0 BUN 20 H Creatinine 0.91 Glucose 81 Total Bilirubin 2.0 H AST 27 ALT < 14 Alkaline Phosphatase 296 H Assessment And Plan - Current Problems (Diagnosis) (1) Pleural effusion Current Visit: Yes Status: Acute Plan: Patient has right-sided pleural effusion and did undergo thoracentesis today await diagnostic test results doubt infection continue with diuretics awaiting echocardiogram also has a non-STEMI labs chemistries reviewed mild normocytic an emia start patient on therapeutic anticoagulation lower extremity venous Doppler ultrasound
[2024-07-31 12:43] LABS: Body Fluid Lymphocytes 82 %; Fluid Total Cells Count 100
--- NOTE | 2024-07-31 13:22 | RAD REPORT ---
EXAMINATION: US BILATERAL LOWER EXTREMITY VENOUS DOPPLER CLINICAL INDICATION: RO DVT TECHNIQUE: Complete bilateral duplex sonography of the BILATERAL lower extremity veins was performed. The examination included compression for vein patency, color Doppler imaging and flow augmentation in response to distal compression of the distal external iliac, common femoral, femoral, popliteal, t ibial, and great and small saphenous veins. COMPARISON: No prior exam. FINDINGS: Duplex sonography testing of the veins of the BILATERAL lower extremity was performed. Color flow sari ging shows all veins to be compressible with [id number] color filling. Pulsatile and phasic flow is present within all lower extremity deep and superficial veins examined. IMPRESSION: There is no deep vein or superficial vein thrombosis.
--- NOTE | 2024-07-31 13:52 | RAD REPORT ---
EXAMINATION: NUCLEAR MEDICINE VENTILATION PERFUSION SCAN XENON CLINICAL INDICATION: . elevated troponin TECHNIQUE: Ventilation images after inhaled radiopharmaceutical obtained in multiple projections.. Pe rfusion images were obtained in multiple projections after intravenous injection of Tc-99m MAA. RADIOPHARMACEUTICALS: 21.7 mCi of Xenon-133 and 6.8 mCi intravenous Tc-99m MAA. COMPARISON: Examination correlated with recent chest radiograph. FINDINGS: VENTILATION: Diminished ventilation to the right lung base correlates with airspace opacity on chest radiograph. PERFUSION: Multiple wedge-shaped mismatched defects seen bilaterally. IMPRESSION: High probability for pulmonary embolism.
[2024-07-31] MEDS: ENOXAPARIN 100 MG/ML SYR SQ SCH (14:34)
--- NOTE | 2024-07-31 18:49 | P.PN ---
Date of Service: 07/31/24 Subjective Awake and feeling well this morning Right Thoracentesis this morning, tolerated well ROS 10 point ROS as noted above, otherwise negative Physical Exam General: Alert and Oriented x3, NAD HEENT: Atraumatic, Normocephalic, PERRLA Neck: Supple, 2+ carotid pulse no bruit Respiratory: Diminished, Expiratory wheezes, On 3 LNC, Right sided dressing CDI Cardiovascular: Normal pulses, NSR, Normal S1 S2 Capillary refill: <2 Seconds Gastrointestinal: Normal bowel sounds, Soft and benign, Non-distended, No tenderness Musculoskeletal: No clubbing Integumentary: No rashes Neurological: Normal speech, Normal tone Vitals Reviewed Problem list Severe sepsis 2/2 right sided pneumonia Acute hypoxic respiratory distress 2/2 right sided pleural Effusion Lactic acidosis Respiratory acidoiss Pulmonary hypertension NSTEMI PE Diabetes Hypothyroidism Hypertension Assessment and Plan Severe sepsis 2/2 right sided pneumonia Acute hypoxic respiratory distress 2/2 right sided pleural effusion Lactic acidosis Respiratory acidoiss Pulmonary hypertension -Sesis criteria Resp 28, LA 4.2, BP dropped to 102/62 -Recently discharged from [facility] 07/25 -3 L normal saline given in the ED -Magnesium, Rocephin, Zithromax given in the ED -Bipap at night -Levaquin on the floor -Nebulizer treatments -incentive spirometer -Dr Cerda consulted -Chest xray reports "Right lung base is hazy which may represent a combination of pneumonia and pleural effusion" -Chest ultrasound "moderate sized right pleural effusion" -ECHO results pending NSTEMI PE -VQ scan reports high probability of PE -Heparin gtt started -Troponin >300, serial pending Diabetes -Accu-Chek with sign scale insulin Hypothyroidism Hypertension -Continue home DVT PPx Lovenox Full code LOS 2 days Discharge Plan: Home Plan to discharge in: 48 Hours
[2024-07-31] MEDS: HEPARIN/D5W 25,000 UNIT/500 ML BAG IV SCH (19:50)
[2024-08-01 04:27] LABS: Absolute Basophils 0.1 K/uL (0-0.5); Absolute Lymphocytes (CBC) 1.2 K/uL (0.7-4.9); Absolute Monocytes 0.8 K/uL (0.1-1.3); Absolute Neutrophil 6.2 K/uL (1.8-8.0); Basophils % 0.7 % (0-1.3); Eosinophils % 0.3 % (0-4.4); Hematocrit 27.2 % (36.0-45.0); Hemoglobin 8.9 g/dL (12.0-15.0); Lymphocytes % 14.7 % (15.3-44.8); MCH 25.8 pg (27.0-35.0); MCHC 32.6 g/dL (32.0-36.0); MPV 7.6 fL (7.6-11.3); Monocytes % 9.3 % (3.3-12.3); Nucleated Red Blood Cells % 0.1 % (0-0); Platelets 219 thou/uL (152-406); RBC Red Blood Cell Count 3.45 M/uL (3.86-4.86); Red Cell Distribution Width 18.4 % (12.1-15.2)
[2024-08-01 04:32] LABS: Anion Gap 8.1 mEq/L (5.0-15.0); Magnesium 2.1 mg/dL (1.6-2.4); Phosphorus 2.7 mg/dL (2.5-4.9); Potassium 4.1 mEq/L (3.5-5.1)
--- NOTE | 2024-08-01 11:01 | ECHO ---
HEIGHT: 5 ft 6 in WEIGHT: 218 lb 0 oz DATE OF STUDY: 07/31/[address]: Ilsa Avila NP 2-DIMENSIONAL: YES M.MODE: YES DOPPLER: YES COLOR FLOW: YES TDS: NO PORTABLE: YES DEFINITY: NO BUBBLE STUDY: NO DIAGNOSIS: PULMONARY HYPERTENSION CARDIAC HISTORY: CATHERIZATION: NO SURGERY: NO PROSTHETIC VALVE: NO PACEMAKER: NO MEASUREMENTS (cm) DIASTOLIC (NORMALS) SYSTOLIC (NORMALS) IVSd 1.0 (0.6-1.2) LA Diam 3.1 (1.9-4.0) LVEF 50-55% LVIDd 4.4 (3.5-5.7) LVIDs 3.1 (2.0-3.5) %FS 28% LVPWd 1.0 (0.6-1.2) Ao Diam 2.8 (2.0-3.7) 2 DIMENSIONAL ASSESSMENT: RIGHT ATRIUM: MILDLY DILATED LEFT ATRIUM: NORMAL RIGHT VENTRICLE: MILDLY DILATED LEFT VENTRICLE: NORMAL TRICUSPID VALVE: MODERATE TRICUSPID REGURGITATION MITRAL VALVE: NORMAL PULMONIC VALVE: NORMAL AORTIC VALVE: NORMAL PERICARDIAL EFFUSION: NONE AORTIC ROOT: NORMAL LEFT VENTRICULAR WALL MOTION: MILD GLOBAL HYPOKINESIS. DOPPLER/COLOR FLOW: DIASTOLIC DYSFUNCTION. COMMENTS: 1. LOW NORMAL LEFT VENTRICULAR SYSTOLIC FUNCTION. LEFT VENTRICULAR EJECTION FRACTION 50-55%. MILD GLOBAL HYPOKINESIS. 2. DIASTOLIC DYSFUNCTION. 3. SEVERE PULMONARY HYPERTENSION. RIGHT VENTRICULAR SYSTOLIC PRESSURE >60 mmHg. 4. ELEVATED FILLING PRESSURE. RIGHT ATRIAL PRESSURE >20 mmHg. TECHNOLOGIST: KENDALL TOMPKINS
--- NOTE | 2024-08-01 12:40 | P.PN ---
Subjective Date of Service: 08/01/24 Chief Complaint: Shortness of breath and right-sided pleural effusion Subjective: No new changes, No C/O voiced, Tolerating diet, Ambulating, Improving Review of Systems 10-point ROS is otherwise unremarkable Physical Examination - Vital Signs Temperature: 98.2 F Blood Pressure: 127/62 Pulse: 87 Respirations: 16 Pulse Ox (%): 97 - Physical Exam General: Alert, In no apparent distress HEENT: Atraumatic, PERRLA, EOMI Neck: Supple, JVD not distended Respiratory: Clear to auscultation bilaterally, Normal air movement Cardiovascular: Regular rate/rhythm, Normal S1 S2 Gastrointestinal: Normal bowel sounds, No tenderness Musculoskeletal: No tenderness Integumentary: No rashes Neurological: Normal speech, Normal tone, Normal affect Lymphatics: No axilla or inguinal lymphadenopathy - Studies Medications List Reviewed: Yes Assessment And Plan - Current Problems (Diagnosis) (1) SOB (shortness of breath) Current Visit: Yes Status: Acute Plan: Patient was recently discharged from [facility] where she had heart cath done, that shows severe pulmonary hypertension patient was told that she got heart failure and placed on aldactone and lasix and they were trying to get her jardiance recommend switching to lasix 40 mg IV BID start coreg 3.125 mg po BID continue Aldactone (2) NSTEMI (non-ST elevated myocardial infarction) Current Visit: Yes Status: Acute Plan: can be secondary to heart failure, and recent PE ASA 81 mg daily Lipitor 40 mg daily (3) Pulmonary embolism Current Visit: Yes Status: Acute Plan: diagnosed on VQ scan. start patient on Eliquis 10 mg p BID for 7 days then continue Eliquis 5 mg po BID
[2024-08-01] MEDS: FUROSEMIDE 40 MG/4 ML VIAL IV ONE (13:22)
--- NOTE | 2024-08-01 13:31 | P.PN ---
Date of Service: 08/01/24 Subjective Awake, oriented x3 C/O shortness of breath Nursing staff report blood in toilet overnight-unclear if from stool, urine, or uterine bleeding ROS 10 point ROS as noted above, otherwise negative Physical Exam General: Alert and Oriented x3, NAD HEENT: Atraumatic, Normocephalic, PERRLA Neck: Supple, 2+ carotid pulse no bruit Respiratory: Diminished, Expiratory wheezes, On 3 LNC, Right sided dressing CDI Cardiovascular: Normal pulses, NSR, Normal S1 S2 Capillary refill: <2 Seconds Gastrointestinal: Normal bowel sounds, Soft and benign, Non-distended, No tenderness Musculoskeletal: No clubbing Integumentary: No rashes Neurological: Normal speech, Normal tone Vitals Reviewed Problem list Severe sepsis 2/2 right sided pneumonia Acute hypoxic respiratory distress 2/2 right sided pleural Effusion Lactic acidosis Respiratory acidoiss Severe Pulmonary hypertension NSTEMI Suspected PE Diabetes Hyperthyroidism Hypertension Plan Severe sepsis 2/2 right sided pneumonia Acute hypoxic respiratory distress 2/2 right sided pleural effusion Lactic acidosis Respiratory acidoiss Pulmonary hypertension -Recently discharged from [facility] 07/25 after right heart cath -RHC at [facility] Performed on 07/24 showed severe arterial hypertensionsuspect primary PAH RA:mean 27mm Hg RV:91/7mm Hg PA:93/31 mean 52mm Hg PCWP:21 mm HG RASA02:54 PASA02:56 CO:6.4 (T) 5.6(F) CI: 3.1 (T) 2.7 (F) PVR 383 TP mm HG VQ scan [facility] 07/12 No imaging evidence for pulmonary embolic disease. Findings are concordant with known cardiomegaly and small right pleural effusion Echocardiogram 02/06/2024 [facility] Low normal systolic function Septal flattening in diastole and systole consistent with right ventricular volume and pressure overload Transvalvular regurgitation tricuspid valve. Right ventricular systolic pressure is greater than 60 mmHg Left atrium mildly dilated Right ventricle is mildly dilated. Mildly reduced systolic function Echo here 07/30 shows 1. LOW NORMAL LEFT VENTRICULAR SYSTOLIC FUNCTION. LEFT VENTRICULAR EJECTION FRACTION 50-55%. MILD GLOBAL HYPOKINESIS. 2. DIASTOLIC DYSFUNCTION. 3. SEVERE PULMONARY HYPERTENSION. RIGHT VENTRICULAR SYSTOLIC PRESSURE >60 mmHg. 4. ELEVATED FILLING PRESSURE. RIGHT ATRIAL PRESSURE >20 mmHg. -Bipap at night -Levaquin on the floor -Nebulizer treatments -incentive spirometer -Dr Cerda consulted -Chest ultrasound "moderate sized right pleural effusion" Cardiology recommends increasing diuresis IV Lasix 40 mg twice daily Spironolactone restarted NSTEMI PE -VQ scan reports high probability of PE -Troponin >300, downtrending -Starting eliquis at reduced dose of 5mg given concern for bleeding overnight Diabetes -Accu-Chek with sign scale insulin Hyperthyroidism Hypertension -Continue home DVT PPx Eliquis Full code LOS 2 days Discharge Plan: Home Plan to discharge in: 48 Hours
--- NOTE | 2024-08-01 15:44 | P.PN ---
Subjective Date of Service: 08/01/24 Chief Complaint: Severe pulmonary hypertension right-sided pleural effusion and pulmonary em Subjective: Improving (Patient is improving some still feeling weak and short of breath had 1 episode of hematuria) Review of Systems General: Weakness Respiratory: Shortness of Breath Physical Examination - Vital Signs Temperature: 98.2 F Blood Pressure: 127/62 Pulse: 87 Respirations: 16 Pulse Ox (%): 93 - Physical Exam General: Alert, Oriented x3, Mild distress Respiratory: Clear to auscultation bilaterally, Diminished (Initially on the right side) Cardiovascular: No edema, Regular rate/rhythm, Normal S1 S2 - Studies Medications List Reviewed: Yes Assessment And Plan - Current Problems (Diagnosis) (1) Pleural effusion Current Visit: Yes Status: Acute Plan: Patient admitted with right-sided pleural effusion doubt infection of the pleural space as predominantly lymphocytes chemistries are pending no chest x- ray done today (2) Pulmonary embolism Current Visit: Yes Status: Acute Plan: Patient was diagnosed with high probability VQ scan pulmonary embolism agree with full anticoagulation for now Patient had a VQ scan done prior to a cardiac cath with does not show any pulmonary embolism patient is high risk for thromboembolism (3) Pulmonary hypertension Current Visit: Yes Status: Acute Plan: Patient has a history of severe pulmonary hypertension diagnosed by right heart cath continue with present medication diuretics and echocardiogram Patient on sildenafil with spironolactone RIGHT ATRIUM: MILDLY DILATED LEFT ATRIUM: NORMAL RIGHT VENTRICLE: MILDLY DILATED LEFT VENTRICLE: NORMAL TRICUSPID VALVE: MODERATE TRICUSPID REGURGITATION MITRAL VALVE: NORMAL PULMONIC VALVE: NORMAL AORTIC VALVE: NORMAL PERICARDIAL EFFUSION: NONE AORTIC ROOT: NORMAL LEFT VENTRICULAR WALL MOTION: MILD GLOBAL HYPOKINESIS. DOPPLER/COLOR FLOW: DIASTOLIC DYSFUNCTION. COMMENTS: 1. LOW NORMAL LEFT VENTRICULAR SYSTOLIC FUNCTION. LEFT VENTRICULAR EJECTION FRACTION 50-55%. MILD GLOBAL HYPOKINESIS. 2. DIASTOLIC DYSFUNCTION. 3. SEVERE PULMONARY HYPERTENSION. RIGHT VENTRICULAR SYSTOLIC PRESSURE >60 mmHg. 4. ELEVATED FILLING PRESSURE. RIGHT ATRIAL PRESSURE >20 mmHg.
[2024-08-01] MEDS ORDERED: FUROSEMIDE 40 MG/4 ML VIAL IV SCH (17:00)
[2024-08-01] MEDS: carvediloL 3.125 MG TAB PO SCH (17:03)
[2024-08-01] MEDS: APIXABAN 5 MG TABLET PO SCH (20:41)
[2024-08-01] MEDS: SILDENAFIL CITRATE 20 MG TABLET PO SCH (20:41)
[2024-08-01] MEDS: SPIRONOLACTONE 25 MG TABLET PO SCH (20:42)
[2024-08-02 05:53] LABS: Absolute Eosinophils 0.2 K/uL (0-0.5); Absolute Lymphocytes (CBC) 1.2 K/uL (0.7-4.9); Absolute Monocytes 0.6 K/uL (0.1-1.3); Absolute Neutrophil 3.1 K/uL (1.8-8.0); Basophils % 0.3 % (0-1.3); Hematocrit 25.7 % (36.0-45.0); Hemoglobin 8.2 g/dL (12.0-15.0); Lymphocytes % 24.1 % (15.3-44.8); MCH 25.3 pg (27.0-35.0); MCHC 31.7 g/dL (32.0-36.0); MCV 79.7 fL (80-100); MPV 7.8 fL (7.6-11.3); Monocytes % 11.6 % (3.3-12.3); Nucleated Red Blood Cells % 0.1 % (0-0); Platelets 202 thou/uL (152-406); RBC Red Blood Cell Count 3.23 M/uL (3.86-4.86); Red Cell Distribution Width 18.3 % (12.1-15.2)
[2024-08-02 06:07] LABS: Anion Gap 6.9 mEq/L (5.0-15.0); Magnesium 1.7 mg/dL (1.6-2.4); Potassium 3.9 mEq/L (3.5-5.1)
[2024-08-02] MEDS: FUROSEMIDE 40 MG/4 ML VIAL IV SCH (08:37)
[2024-08-02] MEDS: POTASSIUM CL SA 10 MEQ TAB PO ONE (08:38)
[2024-08-02] MEDS: MAGNESIUM SULFATE 1 gm IVPB 1 GM/100 ML BAG IV ONE (08:39)
--- NOTE | 2024-08-02 09:01 | P.PN ---
Date of Service: 08/02/24 Subjective Awake, oriented x3 Improving No further bleeding noted Ambulatory with 02 ROS 10 point ROS as noted above, otherwise negative Physical Exam General: Alert and Oriented x3, NAD HEENT: Atraumatic, Normocephalic, PERRLA Neck: Supple, 2+ carotid pulse no bruit Respiratory: Diminished, Expiratory wheezes, On 3 LNC, Right sided dressing CDI Cardiovascular: Normal pulses, NSR, Normal S1 S2 Capillary refill: <2 Seconds Gastrointestinal: Normal bowel sounds, Soft and benign, Non-distended, No tenderness Musculoskeletal: No clubbing Integumentary: No rashes Neurological: Normal speech, Normal tone Vitals Reviewed Problem list Severe sepsis 2/2 right sided pneumonia Acute hypoxic respiratory distress 2/2 right sided pleural Effusion Lactic acidosis Respiratory acidoiss Severe Pulmonary hypertension NSTEMI Suspected PE Diabetes Hyperthyroidism Hypertension Plan Severe sepsis 2/2 right sided pneumonia Acute hypoxic respiratory distress 2/2 right sided pleural effusion Lactic acidosis Respiratory acidosis Pulmonary hypertension -Recently discharged from [facility] 07/25 after right heart cath -RHC at [facility] Performed on 07/24 showed severe arterial hypertensionsuspect primary PAH RA:mean 27mm Hg RV:91/7mm Hg PA:93/31 mean 52mm Hg PCWP:21 mm HG RASA02:54 PASA02:56 CO:6.4 (T) 5.6(F) CI: 3.1 (T) 2.7 (F) PVR 383 TP mm HG VQ scan [facility] 07/12 No imaging evidence for pulmonary embolic disease. Findings are concordant with known cardiomegaly and small right pleural effusion Echocardiogram 02/06/2024 [facility] Low normal systolic function Septal flattening in diastole and systole consistent with right ventricular volume and pressure overload Transvalvular regurgitation tricuspid valve. Right ventricular systolic pressure is greater than 60 mmHg Left atrium mildly dilated Right ventricle is mildly dilated. Mildly reduced systolic function Echo here 07/30 shows 1. LOW NORMAL LEFT VENTRICULAR SYSTOLIC FUNCTION. LEFT VENTRICULAR EJECTION FRACTION 50-55%. MILD GLOBAL HYPOKINESIS. 2. DIASTOLIC DYSFUNCTION. 3. SEVERE PULMONARY HYPERTENSION. RIGHT VENTRICULAR SYSTOLIC PRESSURE >60 mmHg. 4. ELEVATED FILLING PRESSURE. RIGHT ATRIAL PRESSURE >20 mmHg. -Dr Cerda consulted and cardiology -Chest ultrasound "moderate sized right pleural effusion" Cardiology recommends increasing diuresis IV Lasix Spironolactone restarted Started on sildenafil by pulm Improving with diuresis/sildenafil On home 02 at 2lpm NSTEMI PE -VQ scan reports high probability of PE -Troponin >300, downtrending -Starting eliquis at reduced dose of 5mg given concern for bleeding overnight -Tolerating, continue to monitor for signs of bleeding Diabetes -Accu-Chek with sign scale insulin Hyperthyroidism Hypertension -Continue home med tapazole DVT PPx Eliquis Full code LOS 2 days Discharge Plan: Home Plan to discharge in: 48 Hours
[2024-08-02] MEDS: ARFORMOTEROL TARTRATE 15 MCG/2 ML VIAL.NEB NEB SCH (13:45)
--- NOTE | 2024-08-02 13:50 | P.PN ---
Subjective Date of Service: 08/02/24 Chief Complaint: Severe pulmonary hypertension right-sided pleural effusion and pulmonary em Subjective: Improving (Doign better c/o chest congestion weak) Review of Systems General: Weakness Respiratory: Shortness of Breath Physical Examination - Vital Signs Temperature: 98.7 F Blood Pressure: 130/58 Pulse: 74 Respirations: 18 Pulse Ox (%): 100 - Physical Exam General: Alert, In no apparent distress, Oriented x3 Respiratory: Expiratory wheezes Cardiovascular: No edema, Normal pulses, Normal S1 S2 - Studies Medications List Reviewed: Yes Assessment And Plan - Current Problems (Diagnosis) (1) Pleural effusion Current Visit: Yes Status: Acute Plan: Patient admitted with right-sided pleural effusion doubt infection of the pleural space as predominantly lymphocytes chemistries are pending no chest x- ray done today (2) Pulmonary embolism Current Visit: Yes Status: Acute Plan: Patient was diagnosed with high probability VQ scan pulmonary embolism agree with full anticoagulation for now Patient had a VQ scan done prior to a cardiac cath with does not show any pulmonary embolism patient is high risk for thromboembolism (3) Pulmonary hypertension Current Visit: Yes Status: Acute Plan: Started on Sildenafil .Congested Add pred and Brovana for now / Pt Discahrge plannning CXRY. No hematuria now. Nasal bleeding on occasions. Microcytic anemia iron studies RIGHT ATRIUM: MILDLY DILATED LEFT ATRIUM: NORMAL RIGHT VENTRICLE: MILDLY DILATED LEFT VENTRICLE: NORMAL TRICUSPID VALVE: MODERATE TRICUSPID REGURGITATION MITRAL VALVE: NORMAL PULMONIC VALVE: NORMAL AORTIC VALVE: NORMAL PERICARDIAL EFFUSION: NONE AORTIC ROOT: NORMAL LEFT VENTRICULAR WALL MOTION: MILD GLOBAL HYPOKINESIS. DOPPLER/COLOR FLOW: DIASTOLIC DYSFUNCTION. COMMENTS: 1. LOW NORMAL LEFT VENTRICULAR SYSTOLIC FUNCTION. LEFT VENTRICULAR EJECTION FRACTION 50-55%. MILD GLOBAL HYPOKINESIS. 2. DIASTOLIC DYSFUNCTION. 3. SEVERE PULMONARY HYPERTENSION. RIGHT VENTRICULAR SYSTOLIC PRESSURE >60 mmHg. 4. ELEVATED FILLING PRESSURE. RIGHT ATRIAL PRESSURE >20 mmHg.
[2024-08-02] MEDS: predniSONE 20 MG TAB PO SCH (14:18)
[2024-08-02 15:16] LABS: Ferritin 29.9 ng/mL (8-252)
[2024-08-02] MEDS: GUAIFENESIN 600 MG SA TAB PO PRN (16:57)
[2024-08-02] MEDS: GLUCERNA SHAKE 237 ML CAN PO SCH (20:28)
[2024-08-02 22:37] LABS: Specific Gravity 1.014 (1.005-1.030); Urine Bilirubin NEGATIVE (Negative); Urine Blood Negative (Negative); Urine Clarity Clear (Clear); Urine Color Light-Yellow (Yellow); Urine Glucose NEGATIVE (Negative); Urine Ketones NEGATIVE (Negative); Urine Microscopic Reflex YN NO UMIC; Urine Nitrite NEGATIVE (Negative); Urine Protein NEGATIVE (Negative); Urine Urobilinogen Normal (Normal); Urine pH 5.5 (5.0-7.0)
[2024-08-03 06:26] LABS: Absolute Lymphocytes (CBC) 0.3 K/uL (0.7-4.9); Absolute Monocytes 0.2 K/uL (0.1-1.3); Basophils % 0.2 % (0-1.3); Hematocrit 27.1 % (36.0-45.0); Hemoglobin 8.9 g/dL (12.0-15.0); Lymphocytes % 8.4 % (15.3-44.8); MCH 25.8 pg (27.0-35.0); MPV 7.7 fL (7.6-11.3); Monocytes % 5.7 % (3.3-12.3); Neutrophils % 85.7 % (41.7-73.7); Nucleated Red Blood Cells % 0.1 % (0-0); Platelets 228 thou/uL (152-406); RBC Red Blood Cell Count 3.47 M/uL (3.86-4.86); Red Cell Distribution Width 18.6 % (12.1-15.2)
[2024-08-03 06:32] LABS: Anion Gap 7.8 mEq/L (5.0-15.0); Magnesium 1.9 mg/dL (1.6-2.4); Potassium 4.8 mEq/L (3.5-5.1)
--- NOTE | 2024-08-03 08:14 | RAD REPORT ---
EXAMINATION: ONE VIEW CHEST XR CLINICAL INDICATION: Female, 54 years old.,R effusion TECHNIQUE: Frontal chest projection is submitted. Examination is limited by patient positioning and t echnique. COMPARISON: 07/31/2024 FINDINGS: Stable right basilar pleural-parenchymal opacity. Progressive central interstitial prominence and per ihilar fluffy opacities. No pneumothorax or sizable left-sided effusion. Stable cardiomegaly Mediastinal contours are otherwise unchanged. IMPRESSION: Progressive central interstitial prominence and fluffy opacities concerning for worsening pulmonary e leena. Other stable findings as above.
[2024-08-03 08:46] LABS: Blood Morphology Comment NOTED (NOT SEEN); Platelet Estimate ADEQ; Platelets Clumped NOTED; White Blood Cell Scan OK (OK)
[2024-08-03 08:47] LABS: Target Cells 1+
[2024-08-03] MEDS: SILDENAFIL CITRATE 20 MG TABLET PO SCH (09:00)
--- NOTE | 2024-08-03 09:47 | P.PN ---
Date of Service: 08/03/24 Subjective Awake, oriented x3 Improving No further bleeding noted Ambulatory with 02 ROS 10 point ROS as noted above, otherwise negative Physical Exam General: Alert and Oriented x3, NAD HEENT: Atraumatic, Normocephalic, PERRLA Neck: Supple, 2+ carotid pulse no bruit Respiratory: Diminished worse on right, On 2 LNC Cardiovascular: Normal pulses, NSR, Normal S1 S2 Capillary refill: <2 Seconds Gastrointestinal: Normal bowel sounds, Soft and benign, Non-distended, No tenderness Musculoskeletal: No clubbing Integumentary: No rashes, wound to RLE-chronic with granulation/fibrous tissue in bed of wound Neurological: Normal speech, Normal tone Vitals Reviewed Problem list Severe sepsis 2/2 right sided pneumonia Acute hypoxic respiratory distress 2/2 right sided pleural Effusion Lactic acidosis Respiratory acidoiss Severe Pulmonary hypertension NSTEMI Suspected PE RLE wound Diabetes Hyperthyroidism Hypertension Plan Severe sepsis 2/2 right sided pneumonia Acute hypoxic respiratory distress 2/2 right sided pleural effusion Lactic acidosis Respiratory acidosis Pulmonary hypertension -Recently discharged from [facility] 07/25 after right heart cath -RHC at [facility] Performed on 07/24 showed severe arterial hypertensionsuspect primary PAH RA:mean 27mm Hg RV:91/7mm Hg PA:93/31 mean 52mm Hg PCWP:21 mm HG RASA02:54 PASA02:56 CO:6.4 (T) 5.6(F) CI: 3.1 (T) 2.7 (F) PVR 383 TP mm HG VQ scan [facility] 07/12 No imaging evidence for pulmonary embolic disease. Findings are concordant with known cardiomegaly and small right pleural effusion Echocardiogram 02/06/2024 [facility] Low normal systolic function Septal flattening in diastole and systole consistent with right ventricular volume and pressure overload Transvalvular regurgitation tricuspid valve. Right ventricular systolic pressure is greater than 60 mmHg Left atrium mildly dilated Right ventricle is mildly dilated. Mildly reduced systolic function Echo here 07/30 shows 1. LOW NORMAL LEFT VENTRICULAR SYSTOLIC FUNCTION. LEFT VENTRICULAR EJECTION FRACTION 50-55%. MILD GLOBAL HYPOKINESIS. 2. DIASTOLIC DYSFUNCTION. 3. SEVERE PULMONARY HYPERTENSION. RIGHT VENTRICULAR SYSTOLIC PRESSURE >60 mmHg. 4. ELEVATED FILLING PRESSURE. RIGHT ATRIAL PRESSURE >[address] Cerda consulted and cardiology Cardiology recommends increasing diuresis IV Lasix Spironolactone restarted Started on sildenafil by pulm, increased to 20mg TID from BID 08/03 Improving with diuresis/sildenafil On home 02 at 2lpm CXR 08/03 showing worsening pulmonary edema but clinically patient doing well Meds titrated by pulm NSTEMI PE -VQ scan reports high probability of PE -Troponin >300, downtrending -Starting eliquis at reduced dose of 5mg given concern for bleeding overnight -Tolerating, continue to monitor for signs of bleeding RLE wound Chronic Does not appear infected Wound healing consulted Will arrange for HH/SN at [place] Diabetes -Accu-Chek with sign scale insulin Hyperthyroidism Hypertension -Continue home med tapazole DVT PPx Eliquis Full code LOS 2 days Discharge Plan: Home Plan to discharge in: 48 Hours
--- NOTE | 2024-08-03 10:33 | P.PN ---
Subjective Date of Service: 08/03/24 Chief Complaint: Severe pulmonary hypertension right-sided pleural effusion and pulmonary em Subjective: Improving (Is improving doing well coughing up some green phlegm ambulating) Review of Systems Respiratory: Cough, Shortness of Breath Physical Examination - Vital Signs Temperature: 98.2 F Blood Pressure: 107/52 Pulse: 64 Respirations: 16 Pulse Ox (%): 99 - Physical Exam General: Oriented x3 Neck: Supple Respiratory: Diminished (Diminished on the right side) Cardiovascular: No edema, Regular rate/rhythm - Studies Medications List Reviewed: Yes Assessment And Plan - Current Problems (Diagnosis) (1) Pleural effusion Current Visit: Yes Status: Acute Plan: Patient still has a right-sided pleural effusion (2) Pulmonary embolism Current Visit: Yes Status: Acute Plan: Patient is doing well on anticoagulation no further evidence of bleeding she does have an IVC filter placed 2000 at [facility] [place] will check a KUB to confirm that now there is no evidence of bleeding so we will continue with anticoagulation for now (3) Pulmonary hypertension Current Visit: Yes Status: Acute Plan: Lanophyllin has been increased to 20 mg 3 times daily as an outpatient will start her on combination therapy RIGHT ATRIUM: MILDLY DILATED LEFT ATRIUM: NORMAL RIGHT VENTRICLE: MILDLY DILATED LEFT VENTRICLE: NORMAL TRICUSPID VALVE: MODERATE TRICUSPID REGURGITATION MITRAL VALVE: NORMAL PULMONIC VALVE: NORMAL AORTIC VALVE: NORMAL PERICARDIAL EFFUSION: NONE AORTIC ROOT: NORMAL LEFT VENTRICULAR WALL MOTION: MILD GLOBAL HYPOKINESIS. DOPPLER/COLOR FLOW: DIASTOLIC DYSFUNCTION. COMMENTS: 1. LOW NORMAL LEFT VENTRICULAR SYSTOLIC FUNCTION. LEFT VENTRICULAR EJECTION FRACTION 50-55%. MILD GLOBAL HYPOKINESIS. 2. DIASTOLIC DYSFUNCTION. 3. SEVERE PULMONARY HYPERTENSION. RIGHT VENTRICULAR SYSTOLIC PRESSURE >60 mmHg. 4. ELEVATED FILLING PRESSURE. RIGHT ATRIAL PRESSURE >20 mmHg. (4) Microcytic anemia Current Visit: Yes Status: Acute Plan: Likely iron deficiency start on IV iron (5) Hyperthyroidism Current Visit: Yes Status: Acute Plan: Patient has an hyperactive thyroid apparently was scheduled for surgery at [facility] and is on methimazole as an emergency probably have to wait for 3-month to do a CT pulmonary angiogram from for pulmonary embolism
[2024-08-03] MEDS: AMOX/K CLAV 500 MG TAB PO SCH (10:34)
[2024-08-03] MEDS: SOD FERRIC GLUC COMPLX/SUCROSE 250 MG in NA CHLORIDE 0.9% 250 ML IV SCH (13:21)
--- NOTE | 2024-08-03 14:53 | RAD REPORT ---
Exam:Abdomen 1 View (KUB) Clinical history: Abdominal pain. Assess IVC filter location. FINDINGS: The bowel gas pattern is unremarkable. A moderate amount of stool throughout the colon IVC filter extends from the mid to lower aspect level of the L1 vertebra to the mid to distal aspect L3 vertebra.
[2024-08-03] MEDS: MORPHINE 2 MG/ML SYR IV PRN (21:49)
--- NOTE | 2024-08-03 22:36 | PN ---
Date of Progress Note: 08/03/2024 Subjective: Seen by bedside. No further chest pain. Generally is very weak, getting iron infusions . Review of Systems: No chest pain. Mild shortness of breath. Generally is weak. No nausea, vomiting, diarrhea. No dys uria, polyuria, or urgency. All other systems were reviewed are negative. Physical Examination: Vital Signs: Reviewed. Head and Neck: Pupils are equal, reactive to light. Intact eye movements. No cervical lymphadenopa thy. Neck: Supple. Thyroid is not enlarged. Lungs: Clear to auscultation bilaterally. No rhonchi, wheezing, or crackles. No accessory muscle u se. Heart: Regular, no extra sounds. Abdomen: Soft, nontender. Bowel sounds positive. No organomegaly. No masses or hernia. No rigidi ty or rebound. Extremities: No clubbing or cyanosis. Intact pulses. Skin: No rash. No nodules. Neurological: Alert, awake, and oriented x3. No acute focal deficits appreciated. Investigations: BUN 22, creatinine 0.60, and hemoglobin is 8.9. Assessment/recommendations: 1.Pulmonary embolism by V/Q scan. Continue Eliquis. 2.Elevated troponin. It was reported that she had a normal heart catheterization at [facility] recently. Likely, this is demand ischemia. Troponin levels trended down nicely and her ejection fraction on t he echocardiogram is normal. 3.Severe pulmonary hypertension, likely due to diastolic heart failure. Recommend aggressive diures is, she could potentially benefit from twice a day IV furosemide to mobilize the fluids and then to g o back to once a day afterwards. 4.Severe pulmonary hypertension. Recommend evaluation with right heart catheterization after her co ndition stabilized to identify the exact etiology of pulmonary hypertension and treat accordingly. 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 SR/MODL Voice ID: [id number] Report ID: [id number]
[2024-08-03] MEDS: GUAIFENESIN/DM 5 ML UCUP PO PRN (23:56)
[2024-08-04 07:07] LABS: Absolute Eosinophils 0.1 K/uL (0-0.5); Absolute Lymphocytes (CBC) 1.5 K/uL (0.7-4.9); Absolute Monocytes 0.7 K/uL (0.1-1.3); Absolute Neutrophil 3.3 K/uL (1.8-8.0); Basophils % 0.2 % (0-1.3); Eosinophils % 2.3 % (0-4.4); Hematocrit 27.2 % (36.0-45.0); Hemoglobin 8.8 g/dL (12.0-15.0); Lymphocytes % 26.9 % (15.3-44.8); MCH 25.2 pg (27.0-35.0); MCHC 32.3 g/dL (32.0-36.0); MPV 7.7 fL (7.6-11.3); Monocytes % 11.7 % (3.3-12.3); Neutrophils % 58.9 % (41.7-73.7); Nucleated Red Blood Cells % 0.2 % (0-0); Platelets 243 thou/uL (152-406); RBC Red Blood Cell Count 3.48 M/uL (3.86-4.86); Red Cell Distribution Width 18.2 % (12.1-15.2)
[2024-08-04 07:17] LABS: Anion Gap 7.3 mEq/L (5.0-15.0); Phosphorus 2.8 mg/dL (2.5-4.9); Potassium 4.3 mEq/L (3.5-5.1)
--- NOTE | 2024-08-04 14:11 | P.PN ---
Date of Service: 08/04/24 Subjective Awake, oriented x3 Improving No further bleeding noted Ambulatory with 02, still with some dyspnea ROS 10 point ROS as noted above, otherwise negative Physical Exam General: Alert and Oriented x3, NAD HEENT: Atraumatic, Normocephalic, PERRLA Neck: Supple, 2+ carotid pulse no bruit Respiratory: Diminished worse on right, On 2 LNC Cardiovascular: Normal pulses, NSR, Normal S1 S2 Capillary refill: <2 Seconds Gastrointestinal: Normal bowel sounds, Soft and benign, Non-distended, No tenderness Musculoskeletal: No clubbing Integumentary: No rashes, wound to RLE-chronic with granulation/fibrous tissue in bed of wound Neurological: Normal speech, Normal tone Vitals Reviewed Problem list Severe sepsis 2/2 right sided pneumonia Acute hypoxic respiratory distress 2/2 right sided pleural Effusion Lactic acidosis Respiratory acidoiss Severe Pulmonary hypertension NSTEMI Suspected PE RLE wound Diabetes Hyperthyroidism Hypertension Plan Severe sepsis 2/2 right sided pneumonia Acute hypoxic respiratory distress 2/2 right sided pleural effusion Lactic acidosis Respiratory acidosis Pulmonary hypertension -Recently discharged from [facility] 07/25 after right heart cath -RHC at [facility] Performed on 07/24 showed severe arterial hypertensionsuspect primary PAH RA:mean 27mm Hg RV:91/7mm Hg PA:93/31 mean 52mm Hg PCWP:21 mm HG RASA02:54 PASA02:56 CO:6.4 (T) 5.6(F) CI: 3.1 (T) 2.7 (F) PVR 383 TP mm HG VQ scan [facility] 07/12 No imaging evidence for pulmonary embolic disease. Findings are concordant with known cardiomegaly and small right pleural effusion Echocardiogram 02/06/2024 [facility] Low normal systolic function Septal flattening in diastole and systole consistent with right ventricular volume and pressure overload Transvalvular regurgitation tricuspid valve. Right ventricular systolic pressure is greater than 60 mmHg Left atrium mildly dilated Right ventricle is mildly dilated. Mildly reduced systolic function Echo here 07/30 shows 1. LOW NORMAL LEFT VENTRICULAR SYSTOLIC FUNCTION. LEFT VENTRICULAR EJECTION FRACTION 50-55%. MILD GLOBAL HYPOKINESIS. 2. DIASTOLIC DYSFUNCTION. 3. SEVERE PULMONARY HYPERTENSION. RIGHT VENTRICULAR SYSTOLIC PRESSURE >60 mmHg. 4. ELEVATED FILLING PRESSURE. RIGHT ATRIAL PRESSURE >[address] Cerda consulted and cardiology Cardiology recommends increasing diuresis with IV Lasix Spironolactone restarted Started on sildenafil by pulm, increased to 20mg TID from BID 08/03 Improving with diuresis/sildenafil On home 02 at 2lpm CXR 08/03 showing worsening pulmonary edema but clinically patient doing well Meds titrated by pulm NSTEMI PE -VQ scan reports high probability of PE -Troponin >300, downtrending -Starting eliquis at reduced dose of 5mg given concern for bleeding overnight -Tolerating, continue to monitor for signs of bleeding -Also has IVC filter in place from many years ago RLE wound Chronic Does not appear infected Wound healing consulted Will arrange for HH/SN at [place] Diabetes -Accu-Chek with sign scale insulin Hyperthyroidism Hypertension -Continue home med tapazole DVT PPx Eliquis Full code LOS 2 days Discharge Plan: Home Plan to discharge in: 48 Hours
[2024-08-04] MEDS: HYDROCODONE/APAP 5/325 MG TAB PO PRN (14:43)
[2024-08-04] MEDS: FUROSEMIDE 40 MG/4 ML VIAL IV ONE (16:59)
[2024-08-04] MEDS: HYDROCODONE/CHLORPHEN 5 ML/OSYR PO PRN (20:32)
[2024-08-04] MEDS: CHLORASEPTIC LOZENGES PO PRN (20:34)
--- NOTE | 2024-08-05 07:07 | RAD REPORT ---
EXAM: Chest Single View HISTORY: eval pulm edema COMPARISON: 08/03/2024 FINDINGS: LUNGS/PLEURA: Hazy bilateral opacities with peribronchial cuffing consistent with a similar pulmonary edema. Right pleural effusion, likely in part subpulmonic, which may have increased some as the right lower lobe aeration has worsened.. MEDIASTINUM: The mediastinal silhouette is within normal limits. CARDIAC: Cardiomegaly. UPPER ABDOMEN: No significant abnormality. BONES: No acute fracture. LINES/TUBES/OTHER: N/A IMPRESSION: Similar pulmonary edema. Slight worsened aeration at the right lung base could be from enlargement of the right pleural effusion..
[2024-08-05 07:57] LABS: Hematocrit 29.5 % (36.0-45.0); Hemoglobin 9.5 g/dL (12.0-15.0); MCH 25.3 pg (27.0-35.0); MCHC 32.2 g/dL (32.0-36.0); MCV 78.4 fL (80-100); MPV 7.3 fL (7.6-11.3); Platelets 293 thou/uL (152-406); RBC Red Blood Cell Count 3.76 M/uL (3.86-4.86); Red Cell Distribution Width 18.7 % (12.1-15.2)
[2024-08-05 08:16] LABS: Anion Gap 6.2 mEq/L (5.0-15.0); Magnesium 1.7 mg/dL (1.6-2.4); Potassium 4.2 mEq/L (3.5-5.1)
--- NOTE | 2024-08-05 09:55 | P.PN ---
Subjective Date of Service: 08/05/24 Chief Complaint: Severe pulmonary hypertension right-sided pleural effusion and pulmonary em No change in patient's patient still complaining of productive cough with green sputum feeling weak Review of Systems General: Weakness Respiratory: Cough, Shortness of Breath Physical Examination - Vital Signs Temperature: 98.2 F Blood Pressure: 103/55 Pulse: 77 Respirations: 17 Pulse Ox (%): 98 - Physical Exam General: Alert, In no apparent distress, Oriented x3 Respiratory: Clear to auscultation bilaterally, Diminished (Right side) Cardiovascular: No edema, Regular rate/rhythm - Studies Microbiology Data (last 24 hrs): 07/30/24 12:28 Blood - Blood Aerobic Blood Culture - Final No growth in 5 days. 07/30/24 12:28 Blood - Blood Anaerobic Blood Culture - Final No growth in 5 days. 07/30/24 12:03 Blood - Blood Aerobic Blood Culture - Final No growth in 5 days. 07/30/24 12:03 Blood - Blood Anaerobic Blood Culture - Final No growth in 5 days. Medications List Reviewed: Yes Assessment And Plan - Current Problems (Diagnosis) (1) Pleural effusion Current Visit: Yes Status: Acute Plan: Appears to have a pleural effusion may be subpulmonic well-defined diaphragm. Bilateral decubitus of the chest stain shows 1+ gram-positive cocci in clusters fluid differential did not show any predominance of neutrophils most likely a contaminant however meter changes records clerk to p.o. levofloxacin send a sputum cultures (2) Pulmonary embolism Current Visit: Yes Status: Acute Plan: Patient is doing well on anticoagulation no further evidence of bleeding she does have an IVC filter placed 2001 at [facility] will check a KUB to confirm that now there is no evidence of bleeding so we will continue with anticoagulation for now (3) Pulmonary hypertension Current Visit: Yes Status: Acute Plan: Patient is tolerating sildenafil 3 times a day/DC IV Lasix reduce spironolactone to once a day discharge planning RIGHT ATRIUM: MILDLY DILATED LEFT ATRIUM: NORMAL RIGHT VENTRICLE: MILDLY DILATED LEFT VENTRICLE: NORMAL TRICUSPID VALVE: MODERATE TRICUSPID REGURGITATION MITRAL VALVE: NORMAL PULMONIC VALVE: NORMAL AORTIC VALVE: NORMAL PERICARDIAL EFFUSION: NONE AORTIC ROOT: NORMAL LEFT VENTRICULAR WALL MOTION: MILD GLOBAL HYPOKINESIS. DOPPLER/COLOR FLOW: DIASTOLIC DYSFUNCTION. COMMENTS: 1. LOW NORMAL LEFT VENTRICULAR SYSTOLIC FUNCTION. LEFT VENTRICULAR EJECTION FRACTION 50-55%. MILD GLOBAL HYPOKINESIS. 2. DIASTOLIC DYSFUNCTION. 3. SEVERE PULMONARY HYPERTENSION. RIGHT VENTRICULAR SYSTOLIC PRESSURE >60 mmHg. 4. ELEVATED FILLING PRESSURE. RIGHT ATRIAL PRESSURE >20 mmHg. (4) Microcytic anemia Current Visit: Yes Status: Acute Plan: Likely iron deficiency start on IV iron (5) Hyperthyroidism Current Visit: Yes Status: Acute Plan: Patient has an hyperactive thyroid apparently was scheduled for surgery at [facility] and is on methimazole as an emergency probably have to wait for 3-month to do a CT pulmonary angiogram from for pulmonary embolism
[2024-08-05] MEDS: levoFLOXacin 250 MG TAB PO SCH (10:24)
--- NOTE | 2024-08-05 10:27 | P.PN ---
Date of Service: 08/05/24 Subjective Awake, oriented x3 Improving No further bleeding noted Ambulatory with 02, still with some dyspnea intermittent mild nose bleeding overnight but not now ROS 10 point ROS as noted above, otherwise negative Physical Exam General: Alert and Oriented x3, NAD HEENT: Atraumatic, Normocephalic, PERRLA Neck: Supple, 2+ carotid pulse no bruit Respiratory: Diminished worse on right, On 2 LNC Cardiovascular: Normal pulses, NSR, Normal S1 S2 Capillary refill: <2 Seconds Gastrointestinal: Normal bowel sounds, Soft and benign, Non-distended, No tenderness Musculoskeletal: No clubbing Integumentary: No rashes, wound to RLE-chronic with granulation/fibrous tissue in bed of wound Neurological: Normal speech, Normal tone Vitals Reviewed Problem list Severe sepsis 2/2 right sided pneumonia Acute hypoxic respiratory distress 2/2 right sided pleural Effusion Lactic acidosis Respiratory acidoiss Severe Pulmonary hypertension NSTEMI Suspected PE RLE wound Diabetes Hyperthyroidism Hypertension Plan Severe sepsis 2/2 right sided pneumonia Acute hypoxic respiratory distress 2/2 right sided pleural effusion Lactic acidosis Respiratory acidosis Pulmonary hypertension -Recently discharged from [facility] 07/25 after right heart cath -RHC at [facility] Performed on 07/24 showed severe arterial hypertensionsuspect primary PAH RA:mean 27mm Hg RV:91/7mm Hg PA:93/31 mean 52mm Hg PCWP:21 mm HG RASA02:54 PASA02:56 CO:6.4 (T) 5.6(F) CI: 3.1 (T) 2.7 (F) PVR 383 TP mm HG VQ scan [facility] 07/12 No imaging evidence for pulmonary embolic disease. Findings are concordant w ith known cardiomegaly and small right pleural effusion Echocardiogram 02/06/2024 [facility] Low normal systolic function Septal flattening in diastole and systole consistent with right ventricular volume and pressure overload Transvalvular regurgitation tricuspid valve. Right ventricular systolic pressure is greater than 60 mmHg Left atrium mildly dilated Right ventricle is mildly dilated. Mildly reduced systolic function Echo here 07/30 shows 1. LOW NORMAL LEFT VENTRICULAR SYSTOLIC FUNCTION. LEFT VENTRICULAR EJECTION FRACTION 50-55%. MILD GLOBAL HYPOKINESIS. 2. DIASTOLIC DYSFUNCTION. 3. SEVERE PULMONARY HYPERTENSION. RIGHT VENTRICULAR SYSTOLIC PRESSURE >60 mmHg. 4. ELEVATED FILLING PRESSURE. RIGHT ATRIAL PRESSURE >[address] Cerda consulted and cardiology Cardiology recommends increasing diuresis with IV Lasix Spironolactone restarted Started on sildenafil by pulm, increased to 20mg TID from BID 08/03 Improving with diuresis/sildenafil On home 02 at 2lpm CXR 08/05 showing persistent pulmonary edema/pleural effusion Decub xray ordered Per pulm geneva decreased to once daily and lasix changed to PO 08/05 NSTEMI PE -VQ scan reports high probability of PE -Troponin >300, downtrending -Starting eliquis at reduced dose of 5mg given concern for bleeding overnight -Tolerating, continue to monitor for signs of bleeding -Also has IVC filter in place from many years ago RLE wound Chronic Does not appear infected Wound healing consulted Will arrange for HH/SN at [place] Diabetes -Accu-Chek with sign scale insulin Hyperthyroidism Hypertension -Continue home med tapazole DVT PPx Eliquis Full code LOS 2 days Discharge Plan: Home Plan to discharge in: 48 Hours
--- NOTE | 2024-08-05 11:10 | RAD REPORT ---
EXAM:Chest Lateral Decubitus HISTORY: R sided effusion RIGHT COMPARISON: Same-day IMPRESSION: Right and left lateral decubitus radiograph obtained. Moderate layering right pleural effusion. Small layering left pleural effusion.
[2024-08-05] MEDS: FUROSEMIDE 20 MG TABLET PO SCH (16:17)
[2024-08-06 08:13] LABS: Hematocrit 27.5 % (36.0-45.0); Hemoglobin 8.9 g/dL (12.0-15.0); MCH 25.7 pg (27.0-35.0); MCHC 32.6 g/dL (32.0-36.0); MCV 78.7 fL (80-100); MPV 7.5 fL (7.6-11.3); Platelets 259 thou/uL (152-406); RBC Red Blood Cell Count 3.49 M/uL (3.86-4.86)
[2024-08-06 08:23] LABS: Anion Gap 6.1 mEq/L (5.0-15.0); Potassium 4.1 mEq/L (3.5-5.1)
--- NOTE | 2024-08-06 09:57 | P.DS ---
Admission Date: 07/30/24 Discharge Date: 08/06/24 Disposition: ROUTINE DISCHARGE Discharge Condition: FAIR Reason for Admission: Severe pulmonary hypertension right-sided pleural effusion and pulmonary em Consultations: CardiologyDr. Vega pulmonology-Dr. Cerda Brief History of Present Illness: Hilda Garcia is a 54-year-old female with past medical history of diabetes, hypertension, hypothyroidism, uterine cancer who presents to the ED with chief complaints of shortness of breath and chest pain x 3 days. On arrival to the ED, respiratory distress noted, patient was put on a CPAP but was able to tolerate 3 L nasal cannula shortly after. Wheezing noted to right lung space, lactic acid 4.2, alk phos 296. Chest x-ray reports "Right lung base is hazy which may represent a combination of pneumonia and pleural effusion." Of note, She was discharged from [facility] on Wednesday 07/25, reportedly a heart cath was performed. Will obtain records to evaluate further. Hospital Course: Problem list Severe sepsis 2/2 right sided pneumonia Acute hypoxic respiratory distress 2/2 right sided pleural Effusion Lactic acidosis Respiratory acidoiss Severe Pulmonary hypertension NSTEMI Suspected PE RLE wound Diabetes Hyperthyroidism Hypertension Patient was admitted to the hospital at [facility] for for possible right lower lobe pneumonia. She had a recent hospitalization at [facility] where she was diagnosed with pulmonary hypertension. Right heart cath, echocardiogram, VQ scan results below from that hospitalization. When she was discharged she was discharged on home oxygen. During her hospitalization here she was found to have a right-sided pleural effusion. She underwent thoracentesis on 07/31/2024 with about 1200 mL of cloudy fluid drained. Cytology was performed which showed no malignant cells. White blood cells 1206, red blood cells 4605, fluid neutrophils 2, fluid lymphocytes 82, fluid inoculating cell 16, other tests including total protein, LDH, glucose, cholesterol still pendingsend out test for our facility. On admission her troponin was also elevated high sensitive troponin was initially 365 and trended down, likely some degree of demand ischemia. There was concern for possible PE so VQ scan was performed which showed multiple wedge-shaped mismatch defects seen bilaterally with high probability for pulmonary embolism. She was started on Eliquis, of note she does have a IVC filter from a long time ago, placement was verified on KUB. During her hospitalization here she was diuresed with IV Lasix and had improvement in her dyspnea, she has been ambulating even periodically without her oxygen and feeling better. She was also initiated on sildenafil which was titrated up to 20 mg 3 times daily by pulmonology here. Echocardiogram was also repeated at our facility on 07/30/2024 which showed low normal LVEF 50 to 55% with mild global hypokinesis, diastolic dysfunction, severe pulmonary hypertension with right ventricular systolic pressures greater than 60 mmHg, elevated filling pressure. Right atrial pressure greater than 20 mmHg. Disposition was discussed at length with patient, she has an appointment with the director of leadership development specializing pulmonary hypertension on 08/08, she feels like she is breathing close to her baseline at this time is stable for discharge to follow-up outpatient with the director of leadership development. She is to continue her Lasix at 20 mg twice a day, spironolactone 25 mg daily New medications will include Eliquis 5 mg twice daily for suspected PE, sildenafil 20 mg 3 times daily for pulmonary hypertension. Pulmonology also wish for her to receive levofloxacin 750 mg p.o. at discharge. Of note patient also has hyperthyroidism and was scheduled for an outpatient thyroidectomy, she was informed that she would need clearance from pulmonology prior to receiving this procedure. Again she does have an appointment on 08/08 with the director of leadership development for further evaluation. Her Tapazole was continued during hospitalization and she should continued outpatient. -Recently discharged from [facility] 07/25 after right heart cath -RHC at [facility] Performed on 07/24 showed severe arterial hypertensionsuspect primary PAH RA:mean 27mm Hg RV:91/7mm Hg PA:93/31 mean 52mm Hg PCWP:21 mm HG RASA02:54 PASA02:56 CO:6.4 (T) 5.6(F) CI: 3.1 (T) 2.7 (F) PVR 383 TP mm HG VQ scan [facility] 07/12 No imaging evidence for pulmonary embolic disease. Findings are concordant with known cardiomegaly and small right pleural effusion Echocardiogram 02/06/2024 [facility] Low normal systolic function Septal flattening in diastole and systole consistent with right ventricular volume and pressure overload Transvalvular regurgitation tricuspid valve. Right ventricular systolic pressure is greater than 60 mmHg Left atrium mildly dilated Right ventricle is mildly dilated. Mildly reduced systolic function Echo here 07/30 shows 1. LOW NORMAL LEFT VENTRICULAR SYSTOLIC FUNCTION. LEFT VENTRICULAR EJECTION FRACTION 50-55%. MILD GLOBAL HYPOKINESIS. 2. DIASTOLIC DYSFUNCTION. 3. SEVERE PULMONARY HYPERTENSION. RIGHT VENTRICULAR SYSTOLIC PRESSURE >60 mmHg. 4. ELEVATED FILLING PRESSURE. RIGHT ATRIAL PRESSURE >20 mmHg. Vital Signs/Physical Exam: Temp Pulse Resp BP Pulse Ox 98.4 F 65 17 93/52 L 100 08/06/24 04:00 08/06/24 05:27 08/06/24 04:00 08/06/24 05:27 08/06/24 04:00 General: Alert, In no apparent distress, Oriented x3 HEENT: Atraumatic, PERRLA Neck: Supple, JVD not distended Respiratory: Clear to auscultation bilaterally, Normal air movement Cardiovascular: Regular rate/rhythm, Normal S1 S2 Gastrointestinal: Normal bowel sounds, No tenderness Musculoskeletal: No tenderness Integumentary: Other (Chronic appearing wound to RLE with fibrinous tissue in wound bed) Neurological: Normal speech, Normal tone, Normal affect Laboratory Data at Discharge: WBC 6.00 thou/uL (4.3-10.9) 08/06/24 07:43 Hgb 8.9 g/dL (12.0-15.0) L 08/06/24 07:43 Hct 27.5 % (36.0-45.0) L 08/06/24 07:43 Plt Count 259 thou/uL (152-406) 08/06/24 07:43 PT 15.5 SECONDS (9.4-12.5) H 07/30/24 12:03 INR 1.40 07/30/24 12:03 APTT 34.2 SECONDS (24.3-36.9) 07/30/24 12:03 Sodium 137 mEq/L (136-145) 08/06/24 07:43 Potassium 4.1 mEq/L (3.5-5.1) 08/06/24 07:43 BUN 17 mg/dL (7-18) 08/06/24 07:43 Creatinine 0.72 mg/dL (0.55-1.02) 08/06/24 07:43 Glucose 111 mg/dL (74-106) H 08/06/24 07:43 Phosphorus 2.8 mg/dL (2.5-4.9) 08/04/24 06:00 Magnesium 1.7 mg/dL (1.6-2.4) 08/05/24 07:37 Total Bilirubin 2.0 mg/dL (0.2-1.0) H 07/30/24 12:03 AST 27 U/L (15-37) 07/30/24 12:03 ALT < 14 U/L (13-56) 07/30/24 12:03 Alkaline Phosphatase 296 U/L (45-117) H 07/30/24 12:03 Home Medications: Furosemide [Lasix] 20 mg PO BID 07/30/24 Gabapentin 300 mg PO TID 07/30/24 Metformin HCl 500 mg PO DAILY 07/30/24 Spironolactone 25 mg PO DAILY 07/30/24 methIMAzole [Tapazole*] 20 mg PO TID 07/30/24 Apixaban [Eliquis] 5 mg PO BID #60 tab 08/06/24 Sildenafil Citrate [Revatio*] 20 mg PO TID #90 tab 08/06/24 levoFLOXacin [Levaquin*] 750 mg PO DAILY 5 Days #5 tab 08/06/24 New Medications: Apixaban [Eliquis] 5 mg PO BID #60 tab levoFLOXacin [Levaquin*] 750 mg PO DAILY 5 Days #5 tab Sildenafil Citrate [Revatio*] 20 mg PO TID #90 tab Physician Discharge Instructions: Patient was admitted to the hospital at [facility] for for possible right lower lobe pneumonia. She had a recent hospitalization at [facility] where she was diagnosed with pulmonary hypertension. Right heart cath, echocardiogram, VQ scan results below from that hospitalization. When she was discharged she was discharged on home oxygen. During her hospitalization here she was found to have a right-sided pleural effusion. She underwent thoracentesis on 07/31/2024 with about 1200 mL of cloudy fluid drained. Cytology was performed which showed no malignant cells. White blood cells 1206, red blood cells 4605, fluid neutrophils 2, fluid lymphocytes 82, fluid inoculating cell 16, other tests including total protein, LDH, glucos e, cholesterol still pendingsend out test for our facility. On admission her troponin was also elevated high sensitive troponin was initially 365 and trended down, likely some degree of demand ischemia. There was concern for possible PE so VQ scan was performed which showed multiple wedge-shaped mismatch defects seen bilaterally with high probability for pulmonary embolism. She was started on Eliquis, of note she does have a IVC filter from a long time ago, placement was verified on KUB. During her hospitalization here she was diuresed with IV Lasix and had improvement in her dyspnea, she has been ambulating even periodically without her oxygen and feeling better. She was also initiated on sildenafil which was titrated up to 20 mg 3 times daily by pulmonology here. Echocardiogram was also repeated at our facility on 07/30/2024 which showed low normal LVEF 50 to 55% with mild global hypokinesis, diastolic dysfunction, severe pulmonary hypertension with right ventricular systolic pressures greater than 60 mmHg, elevated filling pressure. Right atrial pressure greater than 20 mmHg. Disposition was discussed at length with patient, she has an appointment with the director of leadership development specializing pulmonary hypertension on 08/08, she feels like she is breathing close to her baseline at this time is stable for discharge to follow-up outpatient with the director of leadership development. She is to continue her Lasix at 20 mg twice a day, spironolactone 25 mg daily New medications will include Eliquis 5 mg twice daily for suspected PE, sildenafil 20 mg 3 times daily for pulmonary hypertension. Pulmonology also wish for her to receive levofloxacin 750 mg p.o. at discharge. Of note patient also has hyperthyroidism and was scheduled for an outpatient thyroidectomy, she was informed that she would need clearance from pulmonology prior to receiving this procedure. Again she does have an appointment on 08/08 with the director of leadership development for further evaluation. Her Tapazole was continued during hospitalization and she should continued outpatient. Diet: Regular Activity: Fall precautions Followup: Jimi Cerda MD [ACTIVE - CAN ADMIT] - 1 Week Karely Lloyd NP [Primary Care Provider] - 1 Week Time spent managing pt's care (in minutes): 65
[2024-08-06] MEDS: SPIRONOLACTONE 25 MG TABLET PO SCH (10:08)
[2024-08-06 10:09] VITALS: BP 108/55
[2024-08-06 10:35] VITALS: TEMP 98
[2024-08-06 11:29] VITALS: O2SAT 95
[2024-08-06] MEDS: COLLAGENASE 30 GM OINTMENT TOP SCH (12:01)
[2024-08-07] MEDS ORDERED: levoFLOXacin 750 MG TAB PO SCH (09:00)
[2024-08-07 12:28] LABS: TOTAL PROTEIN, PLEURAL FLUID 3.5 g/dL
--- NOTE | 2024-08-14 12:15 | EKG ---
Test Date: 2024-07-30 Test Time: 12:20:20 [employer] Helper: BP MEASUREMENT RESULTS: Intervals: Rate: 69 OH: 520 QRSD: 100 QT: 430 QTc: 460 [employer]: P: 33 OH: 520 QRS: 60 T: 90 INTERPRETIVE STATEMENTS: Sinus rhythm with sinus arrhythmia with 1st degree AV block Low voltage QRS Borderline ECG Compared to ECG 03/20/2024 21:54:57 First degree AV block now present Electronically Signed On 08-14-24 12:09:30 SOCCER COMMENTATOR by Carlos Vega
== END 2024-08-06 12:48 | disposition home health service (06) | DRG 871 ==
LOC: ER 11:41 → ERHOLD 15:03 → 4TH 17:54
PROVIDERS: ADMIT Internal Medicine; ATTEND Hospitalist
PROC: 5A09457 Assistance with Respiratory Ventilation, 24-96 Consecutive Hours, Continuous Positive Airway Pressure (ICD-10-PCS; principal; 2024-07-30)
PROC: 4A033R1 Measurement of Arterial Saturation, Peripheral, Percutaneous Approach (ICD-10-PCS; 2024-07-30)
PROC: 0W993ZX Drainage of Right Pleural Cavity, Percutaneous Approach, Diagnostic (ICD-10-PCS; 2024-07-31)
DX: A41.9 Sepsis, unspecified organism (principal); I21.A1 Myocardial infarction type 2; J18.9 Pneumonia, unspecified organism; R65.21 Severe sepsis with septic shock; I26.99 Other pulmonary embolism without acute cor pulmonale; E87.29 Other acidosis; I50.32 Chronic diastolic (congestive) heart failure; I11.0 Hypertensive heart disease with heart failure; D50.9 Iron deficiency anemia, unspecified; E11.9 Type 2 diabetes mellitus without complications; E03.9 Hypothyroidism, unspecified; I27.20 Pulmonary hypertension, unspecified; E05.90 Thyrotoxicosis, unspecified without thyrotoxic crisis or storm; R06.03 Acute respiratory distress; R31.9 Hematuria, unspecified; Z79.84 Long term (current) use of oral hypoglycemic drugs; Z85.42 Personal history of malignant neoplasm of other parts of uterus; Z79.899 Other long term (current) drug therapy; Z90.710 Acquired absence of both cervix and uterus
CPT/HCPCS: 32555; 36415; 36600; 71045; 71046; 74018; 76604; 78582; 80048; 80053; 81003; 82728; 82805; 82945; 82947; 83540; 83605; 83615; 83735; 84100; 84157; 84311; 84466; 84484; 85025; 85027; 85610; 85730; 87015; 87040; 87102; 87116; 87205; 87206; 88108; 88305; 89050; 93005; 93306; 93970; 94640; 94660; 99285; A9540; A9558; J0696; J1650; J1940; J2270; J2405; J2916; J3475; J3590; J7030; J7050; J7512; J7605; J7613; J7644